=== PATIENT | female | born 1970 | race Caucasian/White ===

== ENCOUNTER 2019-09-20 18:53 | Inpatient (IN) ==
--- OUTSIDE RECORDS SUMMARY | 2019-09-20 18:56 | External Medical Summary | Continuity of Care Document ---
:1970 Author Name Xena Boyer Address Unavailable Unavailable , Care Team Providers Name Role Phone NonMNPG M.D. Unavailable [email or web address] ERIC Boyer, T Unavailable Unavailable Unavailable Unavailable Unavailable Problems Hirsutism (704.1) (L68.0) Encounter for gynecological examination with abnormal finding (V72.31) (Z01.411) Dysfunctional uterine bleeding (626.8) (N93.8) Hyperlipidemia (272.4) (E78.5) Xerosis cutis (706.8) (L85.3) Vitamin D deficiency (268.9) (E55.9) Fatigue (780.79) (R53.83) Obesity (278.00) (E66.9) Type 2 diabetes mellitus (250.00) (E11.9) Varicose veins (454.9) (I83.90) Anxiety (300.00) (F41.9) Insomnia (780.52) (G47.00) Allergies and Adverse Reactions No Known Drug Allergies (Allergy) Medications Tylenol CAPS Refills: 0 Procedures History of Oral Surgery Tooth Extraction Status: Completed History of Cholecystectomy Laparoscopic Status: Completed History of Supracerv Hysterect Laparosc Uterus 250g/Less Rem ov Status: Completed Tube/Ov Immunizations Pneumococcal polysaccharide vaccine, 23 valent On: 05-Oct-19 14 16:08 Lot #: [id number], [employer] Family History Father Family history of Hyperlipidemia Status: Active Family history of Type 2 Diabetes Mellitus Status: Active Family history of Prostate Cancer (V16.42) Status: Active Family history of Lung Cancer (V16.1) Status: Active Grandmother Family history of Type 2 Diabetes Mellitus Status: Active Family history of Breast Cancer (V16.3) Status: Active Mother Family history of Hypothyroidism Status: Active Family history of Lung Cancer (V16.1) Status: Active Grandfather Family history of Acute Myocardial Infarction (V17.3) Status : Active Grandmother Family history of Acute Myocardial Infarction (V17.3) Status : Active Brother Family history of Coronary Artery Disease (V17.49) Status: A ctive Family history of Asthma (V17.5) Status: Active Plan of Treatment Planned Observations Planned Goals not documented Results No Known Results Results not documented
[2019-09-20 20:03] LABS: Appearance Urine Cloudy (Clear); Bilirubin Urine Negative (Negative); Blood Urine Negative (Negative); Color Urine Yellow; Glucose Urine UA 3+ (Negative); Ketones Urine 1+ (Negative); Leukocyte Esterase Urine Negative (Negative); Nitrite Urine Positive (Negative); Protein Urine Negative (Negative); Specific Gravity Urine 1.044 (1.000-1.030); Urobilinogen Urine Negative (Negative); pH Urine 5.5 (4.5-7.5)
[2019-09-20 20:04] LABS: Basophils # (auto) 0.02 K/uL (0-0.2); Basophils % (auto) 0.1 %; Eosinophils # (auto) 0.03 K/uL (0-0.5); Eosinophils % (auto) 0.2 %; Hematocrit (blood only) 39.8 % (37-47); Hemoglobin 13.3 g/dL (12.0-16.0); Immature Granulocytes # (auto) 0.05 K/uL (0.00-0.02); Immature Granulocytes % (auto) 0.3 %; Lymphocytes # (auto) 1.31 K/uL (1.2-3.4); Lymphocytes % (auto) 7.1 %; Mean Corpuscular Hemoglobin 29.8 pg (25-34); Mean Corpuscular Hgb Conc 33.4 g/dL (32-36); Mean Platelet Volume 11.9 fL (7.4-10.4); Monocytes # (auto) 1.22 K/uL (0.11-0.59); Monocytes % (auto) 6.6 %; Neutrophils # (auto) 15.91 K/uL (1.4-6.5); Neutrophils % (auto) 85.7 %; Platelet Count 177 K/uL (130-400); RDW Coefficient of Variation 12.8 % (11.5-14.5); RDW Standard Deviation 41.2 fL (36.4-46.3); Red Blood Count 4.47 M/uL (4.2-5.4); White Blood Count 18.54 K/uL (4.8-10.8)
--- NOTE | 2019-09-20 20:11 | XRay Report ---
XR foot LT min 3V routine HISTORY: 49 years-old Female wound between 2nd 3rd digit plantar area ro osteo chronic wound of the left foot COMPARISON: None available TECHNIQUE: 3 views of the left foot FINDINGS: Demineralized appearance the bones. Mild osteoarthritis of the interphalangeal joints. No acute fract ure, dislocation or osseous erosions. Mild soft tissue swelling of the forefoot. Marginal spurring of the calcaneus. Soft tissue ulceration of the plantar forefoot. IMPRESSION: 1. Soft tissue swelling of the forefoot with plantar ulceration. 2. No acute fracture, dislocation or osseous erosion identified. ACT 112: Negative or not required by law. The above report was generated using voice recognition software. It may contain grammatical, syntax o r spelling errors. Electronically signed by: Ellis Duran M.D. 09/20/2019 8:10 PM
[2019-09-20 20:14] LABS: Bacteria Urine Automated 4+ (Negative); Epithelial Cell Urine Auto >30 /lpf (0-5); RBC Urine Automated 0-4 /hpf (0-4)
[2019-09-20] MEDS ORDERED: cefTRIAXone SODIUM 1,000 MG/50 ML BAG IV STA (20:35)
[2019-09-20] MEDS ORDERED: VANCOMYCIN CONSULT ACTIVE PRN (20:35)
[2019-09-20] MEDS ORDERED: VANCOMYCIN HCL 2,750 MG in SODIUM CHLORIDE 0.9% 500 ML IV ONE (20:35)
[2019-09-20] MEDS ORDERED: MoRPHine SULFATE 4 MG/ML 1 ML CARP\\VIAL IV STA (20:38)
[2019-09-20 20:48] LABS: BUN Creatinine Ratio 9.6 (10-20); Calcium 9.3 mg/dl (8.5-10.1); Creatinine Clr Calc Pharmacy 104.2 ml/min; Est GFR (African American) 96.7; Est GFR (Non-African American) 83.4; Potassium 3.9 mmol/L (3.5-5.1)
[2019-09-20] MEDS ORDERED: CEFEPIME 2,000 MG/20 ML VIAL IV STA (20:48)
[2019-09-20] MEDS ORDERED: SODIUM CHLORIDE 0.9% 1000ML 1,000 ML IV ONE (21:02)
[2019-09-20 21:06] LABS: Beta-Hydroxybutyrate 8.33 mg/dl (0.2-2.81)
[2019-09-20] MEDS ORDERED: INSULIN GLARGINE SOLOSTAR 100 UNITS/ML 3 ML PEN SC STA (21:28)
[2019-09-20] MEDS ORDERED: INSULIN HUMAN REGULAR PER UNIT 10 UNITS in SYRINGE 9.9 ML IV STA (21:34)
--- NOTE | 2019-09-20 21:55 | XRay Report ---
XR chest 1V portable HISTORY: sepsis COMPARISON: Chest 11/05/2007. FINDINGS: The lungs are clear. Cardiac silhouette is normal in size. No pleural effusions. No pneumot horax. IMPRESSION: No acute process. ACT 112: Negative or not required by law. Electronically signed by: Tee Huerta M.D. 09/20/2019 9:53 PM
[2019-09-20 21:59] LABS: Albumin Level 3.2 gm/dl (3.4-5.0); Bilirubin Direct 0.2 mg/dl (0-0.2); Bilirubin,Total 0.7 mg/dl (0.2-1); Magnesium 1.7 mg/dl (1.8-2.4); Total Protein 7.9 gm/dl (6.4-8.2)
--- NOTE | 2019-09-20 23:17 | Emergency Department Note ---
Entered by Sammi Cade acting as a scribe for Alexis Seaman History of Present Illness General Chief complaint: Infection, Wound Stated complaint: DIABETIC - INFECTION LT FOOT Time Seen by Provider: 09/20/19 19:28 Source: patient Mode of arrival: ambulatory Limitations: no limitations History of Present Illness Onset (ago): day(s) 3 Location: foot (left foot) Radiation: non-radiation Pain Consistency: + constant Maximum Pain Intensity: 9 Current Pain Intensity: 9 Relieved By: + other (Epsom salt soaks) Exacerbated By: + none Associated symptoms: + fever/chills (+chills, -fever) and + other (-abdominal pain); no cough (or cold symptoms) Treatments prior to arrival: other (Epsom salt soaks) The patient is a 49 year old female who presents to the ED with complaints of a possible wound infection. She is diabetic and states she thinks an existing diabetic wound on her left foot is infected. She rates her pain as a 9/10 in severity. Epsom salt soaks have provided minimal relief. She admits to chills but denies any fevers. She denies any recent cough or cold symptoms or abdominal pain. Home Medications Home Medications Medication Instructions Recorded Confirmed Type acetaminophen [Tylenol Extra 1,000 mg PO Q6H PRN 09/20/19 09/20/19 History Strength] ibuprofen [Advil] 400 mg PO Q6 PRN 09/20/19 09/20/19 History Allergies Allergy/AdvReac Type Severity Reaction Status Date / Time No Known Allergies Allergy Unknown Verified 09/20/19 22:20 Past Med/Surg History Medical History Diabetes mellitus Social History Preferred Language: Beninese Feels Safe at Home: Yes Smoking Status: Current every day smoker Review of Systems See HPI for pertinent positives & negatives. and A total of 10 systems reviewed and were otherwise negative Physical Exam Vital Signs Vital Signs - 24 hr 09/20/19 19:01 09/20/19 20:53 09/20/19 22:08 Temperature 37.2 C Temperature Source Oral Pulse Rate 93 H Pulse Rate [Right] 87 83 Pulse Rhythm [Right] Regular Regular Pulse Strength [Right] Normal Normal Respiratory Rate 18 18 18 Respiratory Effort / Characteristics Non-Labored Spontaneous Non-Labored Spontaneous Respiratory Depth Normal Normal Normal Respiratory Pattern Regular Regular Blood Pressure 156/89 H Blood Pressure [Right Arm] 149/89 H 132/73 Blood Pressure Mean 111 Blood Pressure Mean [Right Arm] 109 92 Blood Pressure Position [Right Arm] Lying Lying Pulse Oximetry 98 96 96 Oxygen Delivery Method Room Air Room Air Room Air Sepsis Recent Fever Within 48 Hours No Sepsis New/Unexplained Change in Mental Status No Sepsis Action Taken by Nursing No Action Required GENERAL: She is oriented to person, place, and time. She appears well-developed and well-nourished. She does not appear distressed. HENT: Exam performed. Head: Normocephalic and atraumatic. Right Ear: External ear normal. No mastoid tenderness. Left Ear: External ear normal. No mastoid tenderness. Mouth/Throat: The oropharynx is clear and moist. No trismus in the jaw. No dental abscesses or uvula swelling. No oropharyngeal exudate or tonsillar abscesses. EYES: Conjunctivae and EOM are normal. Pupils are equal, round, and reactive to light. Right eye exhibits no discharge. Left eye exhibits no discharge. No scleral icterus. NECK: Normal range of motion. Neck supple. No JVD present. No spinous process tenderness present. No carotid bruit present. No rigidity. No tracheal deviation and normal range of motion present. No Brudzinski's sign and no Kernig's sign noted. CV: Normal rate, regular rhythm, normal heart sounds and intact distal pulses. There is no peripheral edema. Palpable radial pulses bue. PULM/CHEST: Effort normal and breath sounds normal. No respiratory distress. No stridor. She has no wheezes. She has no rales. Chest Wall: She exhibits no tenderness. ABD: The abdomen is soft. Bowel sounds are normal. She has no distension. No mass is present. There is no tenderness. There is no rebound, no guarding, no Goodrich's sign and no tenderness at McBurney's point. Rovsig negative MUSC/SKEL: Normal range of motion. There is no peripheral edema, tenderness or deformity. Palpable DP and PT pulses bilaterally. LYMPH: No cervical adenopathy. NEURO: She is alert and oriented to person, place, and time. She has normal strength. No cranial nerve deficit or sensory deficit. Coordination and gait normal. GCS eye subscore is 4. GCS verbal subscore is 5. GCS motor subscore is 6. cerbellar tests wnl. SKIN: Skin is warm and dry. She is not diaphoretic. Wound on the plantar aspect of the left foot, between and the 2nd and 3rd digit, with surrounding erythema, extends over the dorsal aspect, warm to touch, no discharge or bleeding. PSYCH: She has a normal mood and affect. Her behavior is normal. Judgment and thought content normal. Course Course 1928: The patient was evaluated in room C7 and a complete history and physical were performed. 2024: Vital signs stable. Labs show leukocytosis of 18.5. Glucose of 516, lactate of 2.6. No anion gap elevation. Urinalysis shows possible infection. Patient will be treated with IV antibiotics for diabetic foot ulcer and UTI. I let the patient know I recommend she stay in the hospital for further evaluation and management and she is agreeable with the plan. I discussed the patients case with Dr. Meléndez, [facility] Hospitalist. The patient will be further evaluated. Administered Medications Vancomycin HCl 2,750 mg/ (Sodium Chloride) 555 mls @ 200 mls/hr IV NOW ONE Stop: 09/20/19 23:21 Last Admin: 09/20/19 21:03 Dose: 200 mls/hr Documented by: [id number] Discontinued Medications Ceftriaxone Sodium (Rocephin) 1,000 mg in 50 mls @ 100 mls/hr IV NOW STA Stop: 09/20/19 21:04 Last Admin: 09/20/19 20:51 Dose: Not Given Documented by: [id number] Cefepime HCl (Maxipime) 2,000 mg in 20 mls @ 5 mls/min IV NOW STA Stop: 09/20/19 20:51 Last Admin: 09/20/19 21:04 Dose: 5 mls/min Documented by: [id number] Sodium Chloride (Nss 1000ml) 1,000 mls @ 999 mls/hr IV .Q1H1M ONE Stop: 09/20/19 22:02 Last Infusion: 09/20/19 22:29 Dose: 0 mls/hr Documented by: [id number] Admin: 09/20/19 21:30 Dose: 999 mls/hr Documented by: [id number] Insulin Human Regular 10 units (/ Syringe) 10 mls @ 0 mls/hr IV NOW STA Stop: 09/20/19 21:35 Last Admin: 09/20/19 22:06 Dose: 9.9 mls/hr Documented by: [id number] Cosigned by: [id number] Insulin Glargine (Lantus Solostar Pen) 40 units SC NOW STA Stop: 09/20/19 21:29 Last Admin: 09/20/19 22:31 Dose: 40 units Documented by: [id number] Cosigned by: [id number] Morphine Sulfate (Morphine Sulfate) 4 mg IV NOW STA Stop: 09/20/19 20:39 Last Admin: 09/20/19 21:03 Dose: 4 mg Documented by: [id number] Medical Decision Making Medical Records Attestation: I reviewed the patient's medical records. Home Medications Current Medication List: was personally reviewed by me Laboratory Data Attestation: I reviewed the patient's lab results. Result diagrams: 09/20/19 19:53 09/20/19 19:53 Lab Results 09/20/19 09/20/19 09/20/19 Range/Units 19:40 19:53 19:53 WBC 18.54 H (4.8-10.8) K/uL RBC 4.47 (4.2-5.4) M/uL Hgb 13.3 (12.0-16.0) g/dL Hct 39.8 (37-47) % MCV 89.0 (80-100) fL MCH 29.8 (25-34) pg MCHC 33.4 (32-36) g/dL RDW Std Deviation 41.2 (36.4-46.3) fL RDW Coeff of Mya 12.8 (11.5-14.5) % Plt Count 177 (130-400) K/uL MPV 11.9 H (7.4-10.4) fL Immature Gran % (Auto) 0.3 % Neut % (Auto) 85.7 % Lymph % (Auto) 7.1 % [place] % (Auto) 6.6 % Eos % (Auto) 0.2 % Baso % (Auto) 0.1 % Immature Gran # (Auto) 0.05 H (0.00-0.02) K/uL Neut # (Auto) 15.91 H (1.4-6.5) K/uL Lymph # (Auto) 1.31 (1.2-3.4) K/uL [place] # (Auto) 1.22 H (0.11-0.59) K/uL Eos # (Auto) 0.03 (0-0.5) K/uL Baso # (Auto) 0.02 (0-0.2) K/uL Sodium 130 L (136-145) mmol/L Potassium 3.9 (3.5-5.1) mmol/L Chloride 94 L (98-107) mmol/L Carbon Dioxide 27 (21-32) mmol/L Anion Gap 9.0 (3-11) BUN 8 (7-18) mg/dl Creatinine 0.82 (0.6-1.2) mg/dl Est Cr Clr Drug Dosing 104.2 ml/min Est GFR ( Amer) 96.7 Est GFR (Non-Af Amer) 83.4 BUN/Creatinine Ratio 9.6 L (10-20) Glucose 516 H* (70-99) mg/dl Lactate (0.4-2.0) mmol/L Calcium 9.3 (8.5-10.1) mg/dl Magnesium 1.7 L (1.8-2.4) mg/dl Total Bilirubin 0.7 (0.2-1) mg/dl Direct Bilirubin 0.2 (0-0.2) mg/dl AST 8 L (15-37) U/L ALT 20 (12-78) U/L Alkaline Phosphatase 89 (45-117) U/L Total Creatine Kinase 37 (26-192) U/L Total Protein 7.9 (6.4-8.2) gm/dl Albumin 3.2 L (3.4-5.0) gm/dl Beta-Hydroxybutyric Acd 8.33 H (0.2-2.81) mg/dl Urine Color Yellow Urine Appearance Cloudy A (Clear) Urine pH 5.5 (4.5-7.5) Ur Specific [place] 1.044 H (1.000-1.030) Urine Protein Negative (Negative) Urine Glucose (UA) 3+ H (Negative) Urine Ketones 1+ H (Negative) Urine Blood Negative (Negative) Urine Nitrite Positive A (Negative) Urine Bilirubin Negative (Negative) Urine Urobilinogen Negative (Negative) Ur Leukocyte Esterase Negative (Negative) Urine WBC (Auto) 5-10 H (0-5) /hpf Urine RBC (Auto) 0-4 (0-4) /hpf U Hyaline Cast (Auto) 1-5 (0-5) /lpf U Epithel Cells (Auto) >30 H (0-5) /lpf Urine Bacteria (Auto) 4+ H (Negative) 09/20/19 Range/Units 19:53 WBC (4.8-10.8) K/uL RBC (4.2-5.4) M/uL Hgb (12.0-16.0) g/dL Hct (37-47) % MCV (80-100) fL MCH (25-34) pg MCHC (32-36) g/dL RDW Std Deviation (36.4-46.3) fL RDW Coeff of Mya (11.5-14.5) % Plt Count (130-400) K/uL MPV (7.4-10.4) fL Immature Gran % (Auto) % Neut % (Auto) % Lymph % (Auto) % [place] % (Auto) % Eos % (Auto) % Baso % (Auto) % Immature Gran # (Auto) (0.00-0.02) K/uL Neut # (Auto) (1.4-6.5) K/uL Lymph # (Auto) (1.2-3.4) K/uL [place] # (Auto) (0.11-0.59) K/uL Eos # (Auto) (0-0.5) K/uL Baso # (Auto) (0-0.2) K/uL Sodium (136-145) mmol/L Potassium (3.5-5.1) mmol/L Chloride (98-107) mmol/L Carbon Dioxide (21-32) mmol/L Anion Gap (3-11) BUN (7-18) mg/dl Creatinine (0.6-1.2) mg/dl Est Cr Clr Drug Dosing ml/min Est GFR ( Amer) Est GFR (Non-Af Amer) BUN/Creatinine Ratio (10-20) Glucose (70-99) mg/dl Lactate 2.6 H* (0.4-2.0) mmol/L Calcium (8.5-10.1) mg/dl Magnesium (1.8-2.4) mg/dl Total Bilirubin (0.2-1) mg/dl Direct Bilirubin (0-0.2) mg/dl AST (15-37) U/L ALT (12-78) U/L Alkaline Phosphatase (45-117) U/L Total Creatine Kinase (26-192) U/L Total Protein (6.4-8.2) gm/dl Albumin (3.4-5.0) gm/dl Beta-Hydroxybutyric Acd (0.2-2.81) mg/dl Urine Color Urine Appearance (Clear) Urine pH (4.5-7.5) Ur Specific [place] (1.000-1.030) Urine Protein (Negative) Urine Glucose (UA) (Negative) Urine Ketones (Negative) Urine Blood (Negative) Urine Nitrite (Negative) Urine Bilirubin (Negative) Urine Urobilinogen (Negative) Ur Leukocyte Esterase (Negative) Urine WBC (Auto) (0-5) /hpf Urine RBC (Auto) (0-4) /hpf U Hyaline Cast (Auto) (0-5) /lpf U Epithel Cells (Auto) (0-5) /lpf Urine Bacteria (Auto) (Negative) Imaging Data Radiologist's Impression: Radiology results as stated below per my review and the radiologist's interpretation: XR foot LT min 3V routine HISTORY: 49 years-old Female wound between 2nd 3rd digit plantar area ro osteo chronic wound of the left foot COMPARISON: None available TECHNIQUE: 3 views of the left foot FINDINGS: Demineralized appearance the bones. Mild osteoarthritis of the interphalangeal joints. No acute fracture, dislocation or osseous erosions. Mild soft tissue swelling of the forefoot. Marginal spurring of the calcaneus. Soft tissue ulceration of the plantar forefoot. IMPRESSION: 1. Soft tissue swelling of the forefoot with plantar ulceration. 2. No acute fracture, dislocation or osseous erosion identified. ACT 112: Negative or not required by law. The above report was generated using voice recognition software. It may contain grammatical, syntax or spelling errors. Electronically signed by: Ellis Duran M.D. 09/20/2019 8:10 PM Blood Pressure Blood Pressure Findings: Elevated blood pressure Blood Pressure Disposition: further management by hospitalist ALEXANDRA Narrative Vital signs stable. Labs show leukocytosis of 18.5. Glucose of 516, lactate of 2.6. No anion gap elevation. Urinalysis shows possible infection. Patient will be treated with IV antibiotics for diabetic foot ulcer and UTI. I let the patient know I recommend she stay in the hospital for further evaluation and management and she is agreeable with the plan. I discussed the patients case with Dr. Meléndez, [facility] Hospitalist. The patient will be further evaluated. Impression & Plan Cellulitis, Diabetic foot ulcer Discharge Plan Visit Data Chief Complaint: Infection, Wound Stated Complaint: DIABETIC - INFECTION LT FOOT ED Provider: Alexis Seaman Discharge Problem: Cellulitis, Diabetic foot ulcer Patient Disposition: Being Evaluated by Hospitalist Forms Stand Alone Forms: [facility] Prescriptions Prescriptions: No Action acetaminophen [Tylenol Extra Strength] 500 mg Tablet 1,000 mg PO Q6H PRN (Reason: Pain) RF: 0 ibuprofen [Advil] 100 mg Tablet,Chewable 400 mg PO Q6 PRN (Reason: Pain) RF: 0 Referrals Referrals: Mayra Holley DO [Primary Care Provider] - The scribe's documentation has been prepared under my direction and personally reviewed by me in its entirety. I confirm that the note above accurately reflects all work, treatment, procedures, and medical decision making performed by me.
--- NOTE | 2019-09-20 23:18 | History & Physical Report ---
Date of Service September 20, 2019 Assessment & Plan (1) Severe sepsis: SIRS plus lactic acidosis Secondary to diabetic foot infection Rule out osteomyelitis hypertension, slightly elevated secondary discomfort DM 2 on oral medications suboptimal control as of recent outpatient hemoglobin A1c of 11.6, March 2019 past history of DVT as per records ongoing tobacco abuse hx medication noncompliance as per records Lack of health insurance Medical telemetry Cultures, Daptomycin, Cefepime MRI left foot rule out osteomyelitis Further management pending work-up results Offload left foot IVF, follow lactic acid Resume prior home lisinopril Rx if BP still uncontrolled Basal insulin, ISS BG goal [id number], carb count coverage, update hemoglobin A1c May benefit from pharmacy glycemic control consultation. Diabetic education. Social service RE assistance with procurement of medications on discharge given lack of health insurance Nicotine patch PRN DVT prophylaxis per Lovenox subcu Full code History of Present Illness Primary Care Provider: None History obtained from patient and records. Medical history significant for hypertension, hyperlipidemia, DM 2 on oral medications, history of DVT status post Coumadin, ongoing tobacco abuse, medication noncompliance as per records. Remote confinement October, for LLE DVT. Patient has had callus on her left foot bottom for a few months now. Four days ago she noted purulent drainage from open wound on callus. Subsequent left foot swelling. Increase painful left foot swelling the last few days along with chills. No response to foot soaks. No chest pain, no S OB. Blood sugars higher than usual 300s at home. At the ER, patient received vancomycin for diabetic foot infection. Medical History as above Surgical History : section, BTL, partial hysterectomy, endometrial ablation, nasal polypectomy, facial laceration repair, Family History : Diabetes, breast cancer, hypertension Personal/Social history : One 4 pack daily, no EtOH intake, currently unemployed, prior work as a [employer] Allergies Allergy/AdvReac Type Severity Reaction Status Date / Time No Known Allergies Allergy Unknown Verified 09/20/19 22:20 Home Medications Home Medications Medication Instructions Recorded Confirmed Type acetaminophen [Tylenol Extra 1,000 mg PO Q6H PRN 09/20/19 09/20/19 History Strength] ibuprofen [Advil] 400 mg PO Q6 PRN 09/20/19 09/20/19 History Past Med/Surg History Medical History Diabetes mellitus Social History Preferred Language: Hebrew Beliefs That Will Affect Care: None Current Living Situation: Alone Current Living Situation Comment: home Feels Safe at Home: Yes Smoking Status: Current every day smoker Tobacco Type: cigarettes ; Hx Alcohol Use: No Hx Substance Use: No Review of Systems Review of Systems: As per HPI, all 10 systems reviewed, all other ROS negative Physical Exam Physical Exam: GENERAL: Comfortable, pleasant, obese, no respiratory distress SKIN: Normal color, warm HEENT: Bespectacled, pink palpebral conjunctivae, no ptosis, dry buccal mucosa NECK : Supple, short neck, no tenderness CHEST : CTA, no tenderness HEART : RRR, no obvious murmurs ABDOMEN: Some distention, nontender EXTREMITIES : Ulcerated wound on the plantar aspect of left forefoot with scant yellow drainage, minimal LLE swelling, no LE tenderness NEUROLOGIC : Coherent, no facial asymmetry, no other gross focality Results & Data Vital Signs (Past 12 Hours) Vital Signs Temp Pulse Pulse Resp BP BP Pulse Ox 09/20/19 22:08 83 18 132/73 96 09/20/19 20:53 87 18 149/89 H 96 09/20/19 19:01 37.2 C 93 H 18 156/89 H 98 Laboratory Results Laboratory Results WBC 18.54 K/uL (4.8-10.8) H 09/20/19 19:53 RBC 4.47 M/uL (4.2-5.4) 09/20/19 19:53 Hgb 13.3 g/dL (12.0-16.0) 09/20/19 19:53 Hct 39.8 % (37-47) 09/20/19 19:53 MCV 89.0 fL (80-100) 09/20/19 19:53 MCH 29.8 pg (25-34) 09/20/19 19:53 MCHC 33.4 g/dL (32-36) 09/20/19 19:53 RDW Std Deviation 41.2 fL (36.4-46.3) 09/20/19 19:53 RDW Coeff of Mya 12.8 % (11.5-14.5) 09/20/19 19:53 Plt Count 177 K/uL (130-400) 09/20/19 19:53 MPV 11.9 fL (7.4-10.4) H 09/20/19 19:53 Immature Gran % (Auto) 0.3 % 09/20/19 19:53 Neut % (Auto) 85.7 % 09/20/19 19:53 Lymph % (Auto) 7.1 % 09/20/19 19:53 [place] % (Auto) 6.6 % 09/20/19 19:53 Eos % (Auto) 0.2 % 09/20/19 19:53 Baso % (Auto) 0.1 % 09/20/19 19:53 Immature Gran # (Auto) 0.05 K/uL (0.00-0.02) H 09/20/19 19:53 Neut # (Auto) 15.91 K/uL (1.4-6.5) H 09/20/19 19:53 Lymph # (Auto) 1.31 K/uL (1.2-3.4) 09/20/19 19:53 [place] # (Auto) 1.22 K/uL (0.11-0.59) H 09/20/19 19:53 Eos # (Auto) 0.03 K/uL (0-0.5) 09/20/19 19:53 Baso # (Auto) 0.02 K/uL (0-0.2) 09/20/19 19:53 Sodium 130 mmol/L (136-145) L 09/20/19 19:53 Potassium 3.9 mmol/L (3.5-5.1) 09/20/19 19:53 Chloride 94 mmol/L (98-107) L 09/20/19 19:53 Carbon Dioxide 27 mmol/L (21-32) 09/20/19 19:53 Anion Gap 9.0 (3-11) 09/20/19 19:53 BUN 8 mg/dl (7-18) 09/20/19 19:53 Creatinine 0.82 mg/dl (0.6-1.2) 09/20/19 19:53 Est Cr Clr Drug Dosing 104.2 ml/min 09/20/19 19:53 Est GFR ( Amer) 96.7 09/20/19 19:53 Est GFR (Non-Af Amer) 83.4 09/20/19 19:53 BUN/Creatinine Ratio 9.6 (10-20) L 09/20/19 19:53 Glucose 516 mg/dl (70-99) H* 09/20/19 19:53 POC Glucose 325 mg/dl (70-99) H* 09/20/19 23:11 Lactate 2.6 mmol/L (0.4-2.0) H* 09/20/19 19:53 Calcium 9.3 mg/dl (8.5-10.1) 09/20/19 19:53 Magnesium 1.7 mg/dl (1.8-2.4) L 09/20/19 19:53 Total Bilirubin 0.7 mg/dl (0.2-1) 09/20/19 19:53 Direct Bilirubin 0.2 mg/dl (0-0.2) 09/20/19 19:53 AST 8 U/L (15-37) L 09/20/19 19:53 ALT 20 U/L (12-78) 09/20/19 19:53 Alkaline Phosphatase 89 U/L (45-117) 09/20/19 19:53 Total Creatine Kinase 37 U/L (26-192) 09/20/19 19:53 Total Protein 7.9 gm/dl (6.4-8.2) 09/20/19 19:53 Albumin 3.2 gm/dl (3.4-5.0) L 09/20/19 19:53 Beta-Hydroxybutyric Acd 8.33 mg/dl (0.2-2.81) H 09/20/19 19:53 Urine Color Yellow 09/20/19 19:40 Urine Appearance Cloudy (Clear) A 09/20/19 19:40 Urine pH 5.5 (4.5-7.5) 09/20/19 19:40 Ur Specific [place] 1.044 (1.000-1.030) H 09/20/19 19:40 Urine Protein Negative (Negative) 09/20/19 19:40 Urine Glucose (UA) 3+ (Negative) H 09/20/19 19:40 Urine Ketones 1+ (Negative) H 09/20/19 19:40 Urine Blood Negative (Negative) 09/20/19 19:40 Urine Nitrite Positive (Negative) A 09/20/19 19:40 Urine Bilirubin Negative (Negative) 09/20/19 19:40 Urine Urobilinogen Negative (Negative) 09/20/19 19:40 Ur Leukocyte Esterase Negative (Negative) 09/20/19 19:40 Urine WBC (Auto) 5-10 /hpf (0-5) H 09/20/19 19:40 Urine RBC (Auto) 0-4 /hpf (0-4) 09/20/19 19:40 U Hyaline Cast (Auto) 1-5 /lpf (0-5) 09/20/19 19:40 U Epithel Cells (Auto) >30 /lpf (0-5) H 09/20/19 19:40 Urine Bacteria (Auto) 4+ (Negative) H 09/20/19 19:40 Diagnostic Findings Left foot x-ray: 1. Soft tissue swelling of the forefoot with plantar ulceration. 2. No acute fracture, dislocation or osseous erosion identified. Chest x-ray: No acute process
[2019-09-20] MEDS ORDERED: LACTATED RINGER'S 1,000 ML IV SCH (23:30)
[2019-09-21] MEDS ORDERED: GLUCOSE 40% GEL 15 GM TUBE PO PRN (00:36)
[2019-09-21] MEDS ORDERED: DEXTROSE 50% 50 ML SYRINGE IV PRN (00:36)
[2019-09-21] MEDS ORDERED: CARBOHYDRATES FOR HYPOGLYCEMIA PO PRN (00:36)
[2019-09-21] MEDS ORDERED: PROMETHAZINE HCL 12.5 MG in SODIUM CHLORIDE 0.9% 50 ML IV PRN (00:36)
[2019-09-21] MEDS ORDERED: GLUCAGON FOR INJ 1 MG VIAL SQ PRN (00:36)
[2019-09-21] MEDS ORDERED: GLUCOSE 10 TABS/TUBE PO PRN (00:36)
[2019-09-21] MEDS ORDERED: ACETAMINOPHEN 325 MG TAB PO PRN (00:36)
[2019-09-21] MEDS ORDERED: CEFEPIME CONSULT ACTIVE PRN (00:47)
[2019-09-21] MEDS ORDERED: DAPTOMYCIN CONSULT ACTIVE PRN (00:54)
[2019-09-21] MEDS: INSULIN ASPART 100 UNITS/ML 3 ML PEN SC SCH ×6 (01:10→20:25)
[2019-09-21] MEDS: TRAMADOL HCL 50 MG TABLET PO PRN ×2 (01:48→08:02)
[2019-09-21] MEDS ORDERED: LACTATED RINGER'S 1,000 ML IV ONE (02:25)
[2019-09-21] MEDS ORDERED: GADOBUTROL 65ML VIAL IV PRN (04:14)
[2019-09-21] MEDS: DAPTOmycin 500 MG in SYRINGE 0 ML IV SCH (04:29)
[2019-09-21] MEDS ORDERED: CEFEPIME 2,000 MG in SYRINGE 7.5 ML IV SCH (06:00)
[2019-09-21 07:08] LABS: Basophils # (auto) 0.02 K/uL (0-0.2); Basophils % (auto) 0.2 %; Eosinophils # (auto) 0.08 K/uL (0-0.5); Eosinophils % (auto) 0.6 %; Hematocrit (blood only) 35.1 % (37-47); Hemoglobin 11.7 g/dL (12.0-16.0); Immature Granulocytes # (auto) 0.04 K/uL (0.00-0.02); Immature Granulocytes % (auto) 0.3 %; Lymphocytes # (auto) 2.69 K/uL (1.2-3.4); Lymphocytes % (auto) 20.2 %; Mean Corpuscular Hemoglobin 29.1 pg (25-34); Mean Corpuscular Hgb Conc 33.3 g/dL (32-36); Mean Corpuscular Volume 87.3 fL (80-100); Mean Platelet Volume 10.9 fL (7.4-10.4); Monocytes # (auto) 0.55 K/uL (0.11-0.59); Monocytes % (auto) 4.1 %; Neutrophils # (auto) 9.94 K/uL (1.4-6.5); Neutrophils % (auto) 74.6 %; Platelet Count 175 K/uL (130-400); RDW Coefficient of Variation 12.7 % (11.5-14.5); Red Blood Count 4.02 M/uL (4.2-5.4); White Blood Count 13.32 K/uL (4.8-10.8)
[2019-09-21 07:36] LABS: Calcium 8.7 mg/dl (8.5-10.1); Creatinine Clr Calc Pharmacy 149.5 ml/min; Est GFR (African American) 125.3; Est GFR (Non-African American) 108.1; Potassium 3.6 mmol/L (3.5-5.1)
[2019-09-21] MEDS: ENOXAPARIN INJ 40 MG/0.4 ML SYR SQ SCH (07:57)
--- NOTE | 2019-09-21 08:28 | Magnetic Resonance Report ---
MR foot LT wo/w con HISTORY: 49 years-old Female R foot swelling ro osteomyelitis chronic right foot pain and swelling w ith possible osteomyelitis. History of diabetes COMPARISON: [Radiographs 09/20/2019 TECHNIQUE: Multiplanar multisequence MRI of the left foot was obtained both with and without the use of 10.7 mL Gadavist FINDINGS: A cutaneous marker is noted along the plantar aspect of the forefoot. A 10 mm cutaneous ulceration is noted deep to the skin marker. There is diffuse subcutaneous edema of the forefoot, extensive dorsal ly extending into the midfoot and ankle and moderate on the plantar margins. Diffuse intrinsic muscul ature atrophy with diffuse intramuscular edema. No drainable fluid collection. The imaged flexor and extensor tendons appear intact. Lisfranc ligament is identified and appears intact. Mild osteoarthrit is of the midfoot and forefoot. No acute fracture, or dislocation identified. Mild to moderate bone m arrow edema involves the third proximal phalanx, notably within the proximal and mid shaft portions. T1 marrow signal is preserved. Minimal bone marrow edema involves the distal aspect of the first dist al phalanx. Mild dorsal periostitis of the second proximal phalanx, image 14 series 9. No osseous ero sions identified. No enhancing mass lesions. IMPRESSION: 1. Diffuse subcutaneous edema suggestive of cellulitis with small plantar ulceration noted near the b ase of the third digit. No drainable fluid collection to suggest abscess. 2. Mild to moderate bone marrow edema of the third proximal phalanx with mild bone marrow edema of th e first distal phalanx, likely reactive. No evidence of acute osteomyelitis noted within these distri butions. 3. Mild dorsal periostitis of the second proximal phalanx may reflect healing fracture or sequela of remote osteomyelitis. No definite evidence of acute osteomyelitis. 4. Diffuse muscular atrophy with intramuscular edema, likely related to chronic denervation changes r elated to the patient's diabetes. ACT 112: Negative or not required by law. The above report was generated using voice recognition software. It may contain grammatical, syntax o r spelling errors. Electronically signed by: Ellis Duran M.D. 09/21/2019 8:27 AM
[2019-09-21] MEDS ORDERED: INSULIN GLARGINE SOLOSTAR 100 UNITS/ML 3 ML PEN SQ SCH (09:00)
[2019-09-21 09:04] LABS: Estimated Average Glucose 321 mg/dl; Hemoglobin A1C 12.8 % (4.5-5.6)
[2019-09-21] MEDS: MoRPHine SULFATE 4 MG/ML 1 ML CARP\\VIAL IV PRN ×2 (11:34→19:38)
[2019-09-21] MEDS ORDERED: PHARMACY GLYCEMIC MGMT CONSULT PRN (11:42)
--- NOTE | 2019-09-21 14:03 | Pharmacy Report ---
Glycemic Control Consultation - Date of Service September 21, 2019 - Scope Scope: Glycemic Pharmacist consulted by Dr Liu on 09/21/2019 for glycemic control and to write orders per [facility] inpatient glycemic control protocol - Objective Weight: 108.1 kg Accuchecks BSG (last 24hrs): 09/20/19 09/20/19 09/20/19 19:53 22:04 23:11 Glucose 516 H* POC Glucose 389 H* 325 H* 09/21/19 09/21/19 09/21/19 00:34 00:41 04:35 Glucose POC Glucose 333 H* 323 H* 285 H 09/21/19 09/21/19 09/21/19 06:55 07:35 11:38 Glucose 280 H POC Glucose 237 H 267 H Laboratory Data (last 24hrs): 09/20/19 09/21/19 19:53 06:55 Potassium 3.9 3.6 Carbon Dioxide 27 28 Anion Gap 9.0 5.0 Creatinine 0.82 0.57 L Est Cr Clr Drug Dosing 104.2 149.5 Beta-Hydroxybutyric Acd 8.33 H HbA1c: Hemoglobin A1c 12.8 % (4.5-5.6) H 09/21/19 06:55 - Recent Pertinent Medications Outpatient Anti-diabetic Regimen: * Metformin/glipizide combo agent * A1c = 12.8 % 09/21/2019 - Assessment & Plan Assessment & Plan: ASSESSMENT: * Pt is a 49yo F type II diabetic. P/w diabetic foot infxn, being treated with dapto and cefepime. PMHx consistent with HTN, HLD, h/o DVT. Her outpt glycemic management is poor as evidenced by her A1C of 12.8% Hyperglycemia is likely due to endogenous insulin resistance. She is ordered a diet. * She will need to go home on insulin given her A1C >10%. Given her SES it will be prudent to d/c her home on [employer] ReliON 70/30 or NPH + Regular. PLAN FOR INPATIENT GLYCEMIC CONTROL: * Holding outpatient oral diabetes medications * Basal insulin - we will switch to NPH * NPH BIDM: 20 or 25u, see MAR for further details. * Bolus insulin - lower goal range and tighten CF/CR * NovoLog per scale ACHS or Q6hrs while NPO * Goal Range: Low 110 mg/dL - High 140 mg/dL * Correction Factor: 20 mg/dL/unit * Nutritional / Prandial insulin per carb ratio of 1 unit per 7 grams CHO consumed * Please note that the plan above was derived based on current level of insulin resistance and hospital stress. These recommendations are appropriate for inpatient admission only. Plan of care upon discharge will need to be reassessed to avoid potential outpatient hypo/hyperglycemia. Thank you.
[2019-09-21] MEDS: CEFEPIME 2,000 MG in SYRINGE 7.5 ML IV SCH (17:45)
[2019-09-21] MEDS: INSULIN HUMAN NPH SC SCH (17:48)
[2019-09-22] MEDS: TRAMADOL HCL 50 MG TABLET PO PRN ×4 (03:48→17:55)
[2019-09-22] MEDS: DAPTOmycin 500 MG in SYRINGE 0 ML IV SCH (04:04)
[2019-09-22] MEDS: CEFEPIME 2,000 MG in SYRINGE 7.5 ML IV SCH ×2 (06:08→18:23)
--- NOTE | 2019-09-22 07:15 | Podiatry Consultation ---
Date of Consultation September 22, 2019 Assessment & Plan (1) Diabetic foot ulcer: 49-year-old female with poorly controlled diabetes mellitus and intact vascular status the bilateral lower extremity presenting with left lower extremity cellulitis and superficial abscess. - She has a down trending white count which is it 13 today. She is on IV antibiotics currently. Current cultures have positive gram +ve cocci on preliminary read. She appears to medically stable with vital signs remaining stable and no subjective symptoms of systemic infection. -Sharp excisional debridement with irrigation was performed at the bedside today at the level of subcutaneous tissue using a #15 blade. Plantar callus revealed superficial abscess with margins as noted above approximately less than 10 cm of soft tissue were debrided today at the bedside. After debridement was performed the site was flushed with copious amounts of normal sterile saline. There is no probing deeply to the level of bone. Upon debridement erythema of the dorsal foot began resolving immediately. A Betadine wet-to-dry dressing was applied to the left lower extremity today. This can be changed daily. Patient may required assistance at home doing dressing changes which can be set up through home nursing. -MRI is concerning for possible osteomyelitis of the proximal second phalanx though no acute signs of osteomyelitis were present. Given these findings no surgical intervention is warranted at this time. This should be monitored closely given that her wound is in this area. Again, the wound is not deep to level of muscle or bone. This is a good clinical indicator that osteomyelitis is not present. -Cultures were obtained from the left foot deep wound for antibiotic guidance. I would continue current regimen of IV antibiotics while in-house. She can be discharged home on broad-spectrum antibiotics consisting of doxycycline 100 mg twice daily and ciprofloxacin 500 mg twice daily for 10 days. Antibiotics can be tapered once final culture results are obtained. -I discussed with the patient the need for regular foot exams being diabetic and poorly controlled as well as appropriate shoe gear and the need for periodic debridement of her calluses by professional rather than being done at home. -I would not be able to round on the patient tomorrow as I will be out of town. I do recommend that she follows up with either myself or the wound care center early next week for reevaluation of the foot wound. At this time she does appear to be stable enough for discharge. Please feel free to contact me with any further questions regarding this patient's care. Thank you for the consultation Present on Admission?: Yes History of Present Illness Reason for Consultation: Left foot wound and cellulitis Requesting Physician: Medhat Attending Physician: Antonio Malloy DO History of Present Illness This is a 49-year-old female with poorly controlled diabetes mellitus, sugars running between 2 and 300 normal at home, presenting with left foot cellulitis. Patient states that she has had calluses on the bottom of her left foot with a painful for months. She normally trims them at home. She presented the emergency room with a worsening cellulitis and concern for infection. Has been doing Epsom salt soaks at home which provided no relief of pain or erythema. She is seen today resting at the bedside complains of no nausea vomiting fevers chills chest pain or shortness of breath. Pain the left lower extremity is well controlled at this time. States that she does have difficulty walking on it due to the pain. Allergies Allergy/AdvReac Type Severity Reaction Status Date / Time No Known Allergies Allergy Unknown Verified 09/20/19 22:20 Home Medications Home Medications Medication Instructions Recorded Confirmed Type acetaminophen [Tylenol Extra 1,000 mg PO Q6H PRN 09/20/19 09/20/19 History Strength] ibuprofen [Advil] 400 mg PO Q6 PRN 09/20/19 09/20/19 History Patient History Medical History Diabetes mellitus Social History Preferred Language: Lithuanian Communication Ability: Effective Beliefs That Will Affect Care: None marital status: Single Current Living Situation: Alone Current Living Situation Comment: home Feels Safe at Home: Yes Smoking Status: Current every day smoker Tobacco Type: cigarettes ; Hx Alcohol Use: No Hx Substance Use: No Review of Systems Review of Systems: All systems reviewed & are unremarkable except as noted in HPI & below Physical Exam Physical Exam: She is alert and oriented to person place and time she is in no acute distress her vital signs appear to be stable Neurovascular status to the bilateral lower extremity does appear to be intact. Sensation is intact light touch. Palpable pulses are noted bilaterally the dorsalis and posterior tibial arteries. Left foot demonstrates significant erythema and calor that is streaking proximally dorsally onto the foot approximately one half way up the foot. There does appear to be a superficial abscess extending from the plantar aspect of the second metatarsal head dorsally over the second metatarsal phalangeal joint and into the first interspace. There is significant hyperkeratotic tissue to the plantar aspect of the second metatarsal phalangeal joint. Upon debridement mainly serous green drainage is obtained. No purulence was noted. Erythema began to resolve with drainage of superficial abscess. No probing deeply to the level of bone was noted. Wound was approximately 5 cm in length with a maximal width of approximately 1 cm and a depth of approximately 0.4 cm. Spec: [id number] Collected: 09/21/19 Received: 09/21/[address]: Félix Meléndez MD Source: Foot,Left OV Order: Ordered: Surf Wnd Cul/Sm Procedure Result Verified Site Gram Stain Final 09/21/19 Gram Stain Result No WBCs Seen Rare Gram Positive Cocci Surface Wound Culture PENDING FINDINGS: A cutaneous marker is noted along the plantar aspect of the forefoot. A 10 mm cutaneous ulceration is noted deep to the skin marker. There is diffuse subcutaneous edema of the forefoot, extensive dorsally extending into the midfoot and ankle and moderate on the plantar margins. Diffuse intrinsic musculature atrophy with diffuse intramuscular edema. No drainable fluid collection. The imaged flexor and extensor tendons appear intact. Lisfranc ligament is identified and appears intact. Mild osteoarthritis of the midfoot and forefoot. No acute fracture, or dislocation identified. Mild to moderate bone marrow edema involves the third proximal phalanx, notably within the proximal and mid shaft portions. T1 marrow signal is preserved. Minimal bone marrow edema involves the distal aspect of the first distal phalanx. Mild dorsal periostitis of the second proximal phalanx, image 14 series 9. No osseous erosions identified. No enhancing mass lesions. IMPRESSION: 1. Diffuse subcutaneous edema suggestive of cellulitis with small plantar ulceration noted near the base of the third digit. No drainable fluid collection to suggest abscess. 2. Mild to moderate bone marrow edema of the third proximal phalanx with mild bone marrow edema of the first distal phalanx, likely reactive. No evidence of acute osteomyelitis noted within these distributions. 3. Mild dorsal periostitis of the second proximal phalanx may reflect healing fracture or sequela of remote osteomyelitis. No definite evidence of acute osteomyelitis. 4. Diffuse muscular atrophy with intramuscular edema, likely related to chronic denervation changes related to the patient's diabetes. Results & Data Vital Signs (Past 12 Hours) Vital Signs Temp Pulse Pulse Resp BP Pulse Ox 09/22/19 04:20 80 09/22/19 04:09 36.9 C 87 18 141/81 H 95 09/22/19 00:04 37.9 C H 80 20 124/76 97 09/21/19 19:28 37.3 C 84 18 140/82 93 Laboratory Results Laboratory Results WBC 18.54 K/uL (4.8-10.8) H 09/20/19 19:53 RBC 4.47 M/uL (4.2-5.4) 09/20/19 19:53 Hgb 13.3 g/dL (12.0-16.0) 09/20/19 19:53 Hct 39.8 % (37-47) 09/20/19 19:53 MCV 89.0 fL (80-100) 09/20/19 19:53 MCH 29.8 pg (25-34) 09/20/19 19:53 MCHC 33.4 g/dL (32-36) 09/20/19 19:53 RDW Std Deviation 41.2 fL (36.4-46.3) 09/20/19 19:53 RDW Coeff of Mya 12.8 % (11.5-14.5) 09/20/19 19:53 Plt Count 177 K/uL (130-400) 09/20/19 19:53 MPV 11.9 fL (7.4-10.4) H 09/20/19 19:53 Immature Gran % (Auto) 0.3 % 09/20/19 19:53 Neut % (Auto) 85.7 % 09/20/19 19:53 Lymph % (Auto) 7.1 % 09/20/19 19:53 [place] % (Auto) 6.6 % 09/20/19 19:53 Eos % (Auto) 0.2 % 09/20/19 19:53 Baso % (Auto) 0.1 % 09/20/19 19:53 Immature Gran # (Auto) 0.05 K/uL (0.00-0.02) H 09/20/19 19:53 Neut # (Auto) 15.91 K/uL (1.4-6.5) H 09/20/19 19:53 Lymph # (Auto) 1.31 K/uL (1.2-3.4) 09/20/19 19:53 [place] # (Auto) 1.22 K/uL (0.11-0.59) H 09/20/19 19:53 Eos # (Auto) 0.03 K/uL (0-0.5) 09/20/19 19:53 Baso # (Auto) 0.02 K/uL (0-0.2) 09/20/19 19:53 Sodium 130 mmol/L (136-145) L 09/20/19 19:53 Potassium 3.9 mmol/L (3.5-5.1) 09/20/19 19:53 Chloride 94 mmol/L (98-107) L 09/20/19 19:53 Carbon Dioxide 27 mmol/L (21-32) 09/20/19 19:53 Anion Gap 9.0 (3-11) 09/20/19 19:53 BUN 8 mg/dl (7-18) 09/20/19 19:53 Creatinine 0.82 mg/dl (0.6-1.2) 09/20/19 19:53 Est Cr Clr Drug Dosing 104.2 ml/min 09/20/19 19:53 Est GFR ( Amer) 96.7 09/20/19 19:53 Est GFR (Non-Af Amer) 83.4 09/20/19 19:53 BUN/Creatinine Ratio 9.6 (10-20) L 09/20/19 19:53 Glucose 516 mg/dl (70-99) H* 09/20/19 19:53 POC Glucose 325 mg/dl (70-99) H* 09/20/19 23:11 Lactate 2.6 mmol/L (0.4-2.0) H* 09/20/19 19:53 Calcium 9.3 mg/dl (8.5-10.1) 09/20/19 19:53 Magnesium 1.7 mg/dl (1.8-2.4) L 09/20/19 19:53 Total Bilirubin 0.7 mg/dl (0.2-1) 09/20/19 19:53 Direct Bilirubin 0.2 mg/dl (0-0.2) 09/20/19 19:53 AST 8 U/L (15-37) L 09/20/19 19:53 ALT 20 U/L (12-78) 09/20/19 19:53 Alkaline Phosphatase 89 U/L (45-117) 09/20/19 19:53 Total Creatine Kinase 37 U/L (26-192) 09/20/19 19:53 Total Protein 7.9 gm/dl (6.4-8.2) 09/20/19 19:53 Albumin 3.2 gm/dl (3.4-5.0) L 09/20/19 19:53 Beta-Hydroxybutyric Acd 8.33 mg/dl (0.2-2.81) H 09/20/19 19:53 Urine Color Yellow 09/20/19 19:40 Urine Appearance Cloudy (Clear) A 09/20/19 19:40 Urine pH 5.5 (4.5-7.5) 09/20/19 19:40 Ur Specific [place] 1.044 (1.000-1.030) H 09/20/19 19:40 Urine Protein Negative (Negative) 09/20/19 19:40 Urine Glucose (UA) 3+ (Negative) H 09/20/19 19:40 Urine Ketones 1+ (Negative) H 09/20/19 19:40 Urine Blood Negative (Negative) 09/20/19 19:40 Urine Nitrite Positive (Negative) A 09/20/19 19:40 Urine Bilirubin Negative (Negative) 09/20/19 19:40 Urine Urobilinogen Negative (Negative) 09/20/19 19:40 Ur Leukocyte Esterase Negative (Negative) 09/20/19 19:40 Urine WBC (Auto) 5-10 /hpf (0-5) H 09/20/19 19:40 Urine RBC (Auto) 0-4 /hpf (0-4) 09/20/19 19:40 U Hyaline Cast (Auto) 1-5 /lpf (0-5) 09/20/19 19:40 U Epithel Cells (Auto) >30 /lpf (0-5) H 09/20/19 19:40 Urine Bacteria (Auto) 4+ (Negative) H 09/20/19 19:40
[2019-09-22] MEDS: ENOXAPARIN INJ 40 MG/0.4 ML SYR SQ SCH (08:29)
[2019-09-22] MEDS: INSULIN ASPART 100 UNITS/ML 3 ML PEN SC SCH ×4 (08:32→20:47)
[2019-09-22] MEDS: INSULIN HUMAN NPH SC SCH ×2 (08:34→17:45)
--- NOTE | 2019-09-22 09:41 | Hospitalist Progress Note ---
Date of Service September 21, 2019 Assessment & Plan (1) Severe sepsis: SIRS plus lactic acidosis Secondary to diabetic foot infection IVF, Abx, follow lactic acid Currently pt is hemodynamically stable and in NAD Cultures - pending Started empirically on Daptomycin and Cefepime, will cont. for now MRI left foot - negative for acute osteomyelitis, Mild dorsal periostitis of the second proximal phalanx may reflect healing fracture or sequela of remote osteomyelitis Podiatry consulted for further recommendations and debridement DM 2 - uncontrolled, current HbA1c 12.8% - previously on oral medications - hx medication noncompliance as per records - Lack of health insurance - consulted community nutrition educator and pharmacy - Basal insulin, ISS BG goal [id number], carb count coverage while inpt - plan to discharge on insulin (lower priced medications, educated pt on low priced [facility] med list) - Social service RE assistance with procurement of medications on discharge given lack of health insurance Tobacco abuse - nicotine patch prn - tobacco cessation counselling - pt interested in smoking cessation Hypertension, slightly elevated secondary discomfort Resume prior home lisinopril Rx if BP still uncontrolled Past history of DVT as per records DVT prophylaxis per Lovenox subcu Full code Subjective Pt is lying in bed, in NAD. Breathing comfortably on room air. Has Left foot pain d/t wound. DM uncontrolled, discussed diabetes management - pt does not have an insurance at this time. Was not aware about low priced medications on [facility] list. Also w ill work w/ pharmacy to start pt on lower priced insulin. Review of Systems Review of Systems: All systems reviewed & are unremarkable except as noted in HPI & below Constitutional: no fever and no chills Respiratory: no cough and no dyspnea Cardiovascular: no chest pain, no palpitations and no edema Gastrointestinal: no abdominal pain, no nausea and no vomiting Physical Exam Physical Exam: GENERAL: Middle aged obese female lying in bed in NAD, pleasant HEENT: NC/AT, EOMI, PERRL NECK : Supple CHEST : CTAB, no wheezing, rhonchi, crackles HEART : RRR, no obvious murmurs ABDOMEN: + bowel sounds, soft, obese,nondistended, nontender EXTREMITIES : wound on the plantar aspect of left forefoot with yellow drainage (superficial abscess about 5 cm in length), tender to palp. + surrounding erythema SKIN: warm, dry, L foot wound as above NEUROLOGIC : alert and oriented x3, no facial asymmetry, speech fluent, moves all 4 extremities spontaneously Results & Data ([place]) Vital Signs (Past 12 Hours) reviewed Laboratory Results reviewed Diagnostic Findings reviewed Medications Administered reviewed
--- NOTE | 2019-09-22 10:11 | Pharmacy Report ---
Pharmacy Glycemic Short Note 2 - Date of Service September 22, 2019 - Glycemic Short BSG Results (Last 24 hours): 09/21/19 09/21/19 09/21/19 11:38 16:37 20:00 POC Glucose 267 H 219 H 267 H Outpatient Anti-diabetic Regimen: * Metformin/glipizide combo agent * A1c = 12.8 % 09/21/2019 ASSESSMENT: * Pt is a 49 yo F with poorly controlled T2DM as outpatient per A1c >10% admitted w/ diabetic complication (foot infection) * Will continue using NPH as basal as patient may be discharged with NPH for basal insulin. Increase dose today 2nd AM fasting hyperglycemia. * Post-prandial elevations noted yesterday, persisted at lunch today. Will tighten CF and CHO ratio. PLAN FOR INPATIENT GLYCEMIC CONTROL: * Holding outpatient oral diabetes medications * Basal insulin - increase * NPH BIDM: 20-40 units, see MAR for further details. * Bolus insulin - tighten * NovoLog per scale ACHS or Q6hrs while NPO * Goal Range: Low 110 mg/dL - High 140 mg/dL * Correction Factor: 15 mg/dL/unit * Nutritional / Prandial insulin per carb ratio of 1 unit per 5 grams CHO consumed PLAN FOR DISCHARGE: * Initiation of insulin indicated given her A1C >10%. Best cost-conscious options would likely be [employer] ReliON 70/30 or NPH + Regular.
--- NOTE | 2019-09-22 11:46 | Hospitalist Progress Note ---
Date of Service September 22, 2019 Assessment & Plan (1) Severe sepsis: SIRS plus lactic acidosis Secondary to diabetic foot infection IVF, Abx, follow lactic acid Currently pt is hemodynamically stable and in NAD Cultures - pending Started empirically on Daptomycin and Cefepime, will cont. for now MRI left foot - negative for acute osteomyelitis, Mild dorsal periostitis of the second proximal phalanx may reflect healing fracture or sequela of remote osteomyelitis Podiatry on case, debriding at bedside DM 2 - uncontrolled, current HbA1c 12.8% - previously on oral medications - hx medication noncompliance as per records - Lack of health insurance - consulted perioperative educator and pharmacy - Basal insulin, ISS BG goal [id number], carb count coverage while inpt - plan to discharge on insulin (lower priced medications, educated pt on low priced [employer] list) - Social service RE assistance with procurement of medications on discharge given lack of health insurance Tobacco abuse - nicotine patch prn - tobacco cessation counselling - pt interested in smoking cessation Hypertension, slightly elevated secondary discomfort Resume prior home lisinopril Rx if BP still uncontrolled Past history of DVT as per records DVT prophylaxis per Lovenox subcu Full code ROS-No Headache, No Visual Changes, No Nausea, No Vomiting, No Fever, No Chills, No Neck Pain or Stiffness, No Chest Pain, No Palpitations, No SOB, No DA SILVA, No Cough, No Sputum, No Wheezing, No Abdominal Pain, No Diarrhea, No Hematemesis, No Hemoptysis, No Unexpected Weight Loss, No Flank pain, No Melena, No Hemat ochezia, No Frequency, No Urgency, No Burning, No Hematuria, No Rashes, No Diaphoresis. Appetite is Normal, sore foot Physical Exam Gen-AAO x 3, NAD, Afebrile Head-NCAT, EOMI, PERRLA, Anicteric Sclera, No Posterior Pharyngeal Erythema Neck-Supple, No JVD, No Thyromegaly, No Masses, No LAD, No Bruits Lungs-Clear to Auscultation Bilaterally, No Rales, No Rhonchi, No Wheezing, No Crepitus Chest-No S4, +S1, +S2, No S3, No Murmurs, No Rubs, No Gallops, No Ectopy Abdomen-Soft, Bowel Sounds Present, Non Tender, Non Distended, No Hepatomegaly, No Splenomegaly, No Palpable Masses, No Rebound, No Rigidity, No Guarding Musculoskeletal-Full Range of Motion Bilaterally, No CVAT Extremities-No Cyanosis, No Clubbing, erythema and edema L foot Nuero-Cranial Nerves II-XII grossly intact, Motor WNL, DTRs WNL, Strength WNL, Non Focal Psych-Normal Mood Results & Data ([facility]) Vital Signs (Past 12 Hours) Vital Signs Temp Pulse Pulse Resp BP Pulse Ox 09/22/19 11:18 37.6 C H 77 16 142/73 H 96 09/22/19 07:18 37.4 C 78 16 151/66 H 93 09/22/19 04:20 80 09/22/19 04:09 36.9 C 87 18 141/81 H 95 09/22/19 00:04 37.9 C H 80 20 124/76 97
--- NOTE | 2019-09-22 12:19 | Infectious Disease Consult ---
Date of Consultation September 22, 2019 Assessment & Plan (1) Cellulitis: continue current abx, await final wound culture. suspect gnr in urine is contamaninant, had > 30 ep cells, few wbc, no symptoms. hopefully d/c on po abx. (2) Diabetic foot ulcer: History of Present Illness Attending Physician: Antonio Malloy DO pt admitted with sepsis, has pain in right foot, mri done, cellulitis, no abscess or osteo. on cefepime and dapto, tolerating well. afebrile. eating lunch on my exam, feeling much improved. blood cultures negative to date, foot culture growing gbs, sensitivities pending, urine culture growing E. coli and second gnr, final pending. wbc initially 18, now 13. cxr negative. no cp, sob, cough. no abd pain no n/v/d. ua >30 ep cells +4 bacteria. ID consulted for abx choice. Allergies Allergy/AdvReac Type Severity Reaction Status Date / Time No Known Allergies Allergy Unknown Verified 09/20/19 22:20 Home Medications Home Medications Medication Instructions Recorded Confirmed Type acetaminophen [Tylenol Extra 1,000 mg PO Q6H PRN 09/20/19 09/20/19 History Strength] ibuprofen [Advil] 400 mg PO Q6 PRN 09/20/19 09/20/19 History Patient History Medical History Diabetes mellitus Social History Preferred Language: Maltese Communication Ability: Effective Beliefs That Will Affect Care: None marital status: Single Current Living Situation: Alone Current Living Situation Comment: home Feels Safe at Home: Yes Smoking Status: Current every day smoker Tobacco Type: cigarettes ; Hx Alcohol Use: No Hx Substance Use: No Review of Systems Review of Systems: All systems reviewed & are unremarkable except as noted in HPI & below Physical Exam Constitutional: WD/WN, vitals as above Eyes: PERRL, conjunctivae normal, anicteric sclerae ENMT: external ear and nose normal, oropharynx normal Neck: normal visual inspection Respiratory: normal respiratory effort, lungs clear to auscultation Cardiovascular: RRR, no murmur, no edema Gastrointestinal (Abdomen): normal bowel sounds, soft, nontender, no hepatosplenomegaly Musculoskeletal: no cyanosis or clubbing, extremities motor strength 5/5 Skin: no rashes, warm and dry Psychiatric: A+Ox3, euthymic affect Results & Data Vital Signs (Past 12 Hours) Vital Signs Temp Pulse Pulse Resp BP Pulse Ox 09/22/19 11:18 37.6 C H 77 16 142/73 H 96 09/22/19 07:18 37.4 C 78 16 151/66 H 93 09/22/19 04:20 80 09/22/19 04:09 36.9 C 87 18 141/81 H 95 Laboratory Results Microbiology 09/20/19 19:40 Urine,Clean Catch Urine Culture - Preliminary Escherichia coli Gram negative bacilli 09/21/19 06:20 Foot,Left Gram Stain - Final 09/21/19 06:20 Foot,Left Wound Culture - Preliminary Group B Beta Strep 09/22/19 06:35 Foot,Left Gram Stain - Final 09/20/19 22:51 Blood Aerobic Blood Culture - Preliminary No growth in Aerobic bottle after 24 hours. 09/20/19 22:51 Blood Anaerobic Blood Culture - Preliminary No growth in Anaerobic bottle after 24 hours. 09/20/19 22:39 Blood Aerobic Blood Culture - Preliminary No growth in Aerobic bottle after 24 hours. 09/20/19 22:39 Blood Anaerobic Blood Culture - Preliminary No growth in Anaerobic bottle after 24 hours. PG Care Time/CCT Total # of Minutes Spent Total Time Spent with Patient: Total time spent is greater than 50% in coordination of care (as documented) at patient's floor/unit and/or counseling patient: Coding Level of Care Code 62732 Inpt Consult Level 4 Diagnoses Cellulitis L03.90 Diabetic foot ulcer E11.621; L97.509
[2019-09-23] MEDS: POLYETHYLENE (MIRALAX) 17 GM PACK PO PRN ×2 (01:00→17:58)
[2019-09-23] MEDS: TRAMADOL HCL 50 MG TABLET PO PRN ×4 (01:03→22:42)
[2019-09-23] MEDS ORDERED: INSULIN ASPART 100 UNITS/ML 3 ML PEN SC ONE (02:00)
[2019-09-23] MEDS: DAPTOmycin 500 MG in SYRINGE 0 ML IV SCH (03:51)
[2019-09-23] MEDS: CEFEPIME 2,000 MG in SYRINGE 7.5 ML IV SCH ×2 (05:44→17:43)
[2019-09-23] MEDS: ENOXAPARIN INJ 40 MG/0.4 ML SYR SQ SCH (07:54)
[2019-09-23 08:13] LABS: Hematocrit (blood only) 34.1 % (37-47); Hemoglobin 11.3 g/dL (12.0-16.0); Mean Corpuscular Hemoglobin 29.7 pg (25-34); Mean Corpuscular Hgb Conc 33.1 g/dL (32-36); Mean Corpuscular Volume 89.5 fL (80-100); Mean Platelet Volume 11.2 fL (7.4-10.4); Platelet Count 203 K/uL (130-400); RDW Coefficient of Variation 12.9 % (11.5-14.5); Red Blood Count 3.81 M/uL (4.2-5.4)
[2019-09-23] MEDS: INSULIN HUMAN NPH SC SCH ×2 (08:27→17:19)
[2019-09-23] MEDS: INSULIN ASPART 100 UNITS/ML 3 ML PEN SC SCH ×4 (08:28→20:29)
[2019-09-23 08:43] LABS: BUN Creatinine Ratio 18.2 (10-20); Calcium 9.1 mg/dl (8.5-10.1); Creatinine Clr Calc Pharmacy 143.6 ml/min; Est GFR (African American) 123.2; Est GFR (Non-African American) 106.3; Potassium 3.7 mmol/L (3.5-5.1)
--- NOTE | 2019-09-23 13:37 | Hospitalist Progress Note ---
Date of Service September 23, 2019 Assessment & Plan (1) Severe sepsis: SIRS plus lactic acidosis Secondary to diabetic foot infection IVF, Abx, follow lactic acid Currently pt is hemodynamically stable and in NAD Cultures are back, sensitivities are pending Started empirically on Daptomycin and Cefepime, will cont. for now, ID on case MRI left foot - negative for acute osteomyelitis, Mild dorsal periostitis of the second proximal phalanx may reflect healing fracture or sequela of remote osteomyelitis Podiatry on case, debriding at bedside DM 2 - uncontrolled, current HbA1c 12.8% - previously on oral medications - hx medication noncompliance as per records - Lack of health insurance - consulted diabetic educator and pharmacy - Basal insulin, ISS BG goal [id number], carb count coverage while inpt - plan to discharge on insulin (lower priced medications, educated pt on low priced [employer] Relion Insulin and Metformin) - Social service RE assistance with procurement of medications on discharge given lack of health insurance - Walking Boot Ordered Tobacco abuse - nicotine patch prn - tobacco cessation counselling - pt interested in smoking cessation Hypertension, slightly elevated secondary discomfort Resume prior home lisinopril Rx if BP still uncontrolled Past history of DVT as per records DVT prophylaxis per Lovenox subcu Full code D/C home in 24-48 hrs ROS-No Headache, No Visual Changes, No Nausea, No Vomiting, No Fever, No Chills, No Neck Pain or Stiffness, No Chest Pain, No Palpitations, No SOB, No DA SILVA, No Cough, No Sputum, No Wheezing, No Abdominal Pain, No Diarrhea, No Hematemesis, No Hemoptysis, No Unexpected Weight Loss, No Flank pain, No Melena, No Hematochezia, No Frequency, No Urgency, No Burning, No Hematuria, No Rashes, No Diaphoresis. Appetite is Normal, sore foot Physical Exam Gen-AAO x 3, NAD, Afebrile Head-NCAT, EOMI, PERRLA, Anicteric Sclera, No Posterior Pharyngeal Erythema Neck-Supple, No JVD, No Thyromegaly, No Masses, No LAD, No Bruits Lungs-Clear to Auscultation Bilaterally, No Rales, No Rhonchi, No Wheezing, No Crepitus Chest-No S4, +S1, +S2, No S3, No Murmurs, No Rubs, No Gallops, No Ectopy Abdomen-Soft, Bowel Sounds Present, Non Tender, Non Distended, No Hepatomegaly, No Splenomegaly, No Palpable Masses, No Rebound, No Rigidity, No Guarding Musculoskeletal-Full Range of Motion Bilaterally, No CVAT Extremities-No Cyanosis, No Clubbing, erythema and edema L foot Nuero-Cranial Nerves II-XII grossly intact, Motor WNL, DTRs WNL, Strength WNL, Non Focal Psych-Normal Mood Results & Data ([facility]) Vital Signs (Past 12 Hours) Vital Signs Temp Pulse Resp BP Pulse Ox 09/23/19 08:06 37.2 C 75 18 118/77 94
--- NOTE | 2019-09-23 16:06 | Pharmacy Report ---
Pharmacy Glycemic Short Note 2 - Date of Service September 23, 2019 - Glycemic Short BSG Results (Last 24 hours): 09/22/19 09/22/19 09/23/19 16:40 20:29 02:04 Glucose POC Glucose 259 H 216 H 214 H 09/23/19 09/23/19 09/23/19 07:41 07:44 11:37 Glucose 248 H POC Glucose 256 H 305 H* 09/23/19 13:37 Glucose POC Glucose 244 H Outpatient Anti-diabetic Regimen: * Metformin/glipizide combo agent * A1c = 12.8 % 09/21/2019 ASSESSMENT: 09/23: * Patient continued to be hyperglycemic through the day, despite large doses of basal/bolus insulin. * Discussed with provider at multidisciplinary rounds and after. Recommended to provider 1-2L of fluid replacement to help reduce blood sugar. Provider will consider. * Will continue current NPH scale as hesitant to push the dose further,and I anticipate BSGs may come down rapidly if fluids administered * Novolog carb coverage slightly tightened this morning. Lunch post prandial >300 but did come down to 244. Discussed with provider and will hold off on IV insulin bolus for now 09/22 * Pt is a 49 yo F with poorly controlled T2DM as outpatient per A1c >10% admitted w/ diabetic complication (foot infection) * Will continue using NPH as basal as patient may be discharged with NPH for basal insulin. Increase dose today 2nd AM fasting hyperglycemia. * Post-prandial elevations noted yesterday, persisted at lunch today. Will tighten CF and CHO ratio. PLAN FOR INPATIENT GLYCEMIC CONTROL: * Holding outpatient oral diabetes medications * Basal insulin * NPH BIDM: 20-40 units, see MAR for further details. * Bolus insulin - tighten * NovoLog per scale ACHS or Q6hrs while NPO * Goal Range: Low 110 mg/dL - High 140 mg/dL * Correction Factor: 15 mg/dL/unit * Nutritional / Prandial insulin per carb ratio of 1 unit per 4 grams CHO consumed PLAN FOR DISCHARGE: * Initiation of insulin indicated given her A1C >10%. Best cost-conscious options would likely be [employer] ReliON 70/30 or NPH + Regular.
[2019-09-23] MEDS: NSS + 20MEQ KCL 20 MEQ/1,000 ML BAG IV SCH (17:43)
[2019-09-24] MEDS: INSULIN ASPART 100 UNITS/ML 3 ML PEN SC SCH ×6 (00:59→21:59)
[2019-09-24] MEDS: MoRPHine SULFATE 4 MG/ML 1 ML CARP\\VIAL IV PRN ×3 (01:08→17:44)
[2019-09-24] MEDS: DAPTOmycin 500 MG in SYRINGE 0 ML IV SCH (04:22)
[2019-09-24] MEDS: CEFEPIME 2,000 MG in SYRINGE 7.5 ML IV SCH ×2 (05:30→17:44)
[2019-09-24] MEDS: NSS + 20MEQ KCL 20 MEQ/1,000 ML BAG IV SCH ×2 (05:30→16:13)
[2019-09-24 07:00] LABS: Hematocrit (blood only) 31.8 % (37-47); Hemoglobin 10.5 g/dL (12.0-16.0); Mean Corpuscular Hemoglobin 29.4 pg (25-34); Mean Corpuscular Volume 89.1 fL (80-100); Platelet Count 195 K/uL (130-400); RDW Coefficient of Variation 12.8 % (11.5-14.5); RDW Standard Deviation 41.2 fL (36.4-46.3); Red Blood Count 3.57 M/uL (4.2-5.4); White Blood Count 11.79 K/uL (4.8-10.8)
[2019-09-24 07:37] LABS: BUN Creatinine Ratio 18.1 (10-20); Calcium 8.9 mg/dl (8.5-10.1); Creatinine Clr Calc Pharmacy 152.4 ml/min; Est GFR (African American) 125.3; Est GFR (Non-African American) 108.1; Potassium 4.1 mmol/L (3.5-5.1)
[2019-09-24] MEDS: INSULIN HUMAN NPH SC SCH ×2 (08:21→17:36)
[2019-09-24] MEDS: ENOXAPARIN INJ 40 MG/0.4 ML SYR SQ SCH (08:22)
--- NOTE | 2019-09-24 09:10 | Pharmacy Report ---
Pharmacy Glycemic Short Note 2 - Date of Service September 24, 2019 - Glycemic Short BSG Results (Last 24 hours): 09/23/19 09/23/19 09/23/19 11:37 13:37 16:48 Glucose POC Glucose 305 H* 244 H 200 H 09/23/19 09/24/19 09/24/19 20:25 00:44 04:16 Glucose POC Glucose 210 H 145 H 150 H 09/24/19 09/24/19 06:45 07:41 Glucose 163 H POC Glucose 161 H Outpatient Anti-diabetic Regimen: * Metformin/glipizide combo agent * A1c = 12.8 % 09/21/2019 ASSESSMENT: * Patient received 146 units of insulin yesterday * 70 units of basal insulin * 76 units of prandial/correctional insulin * BSGs ranging 145 - 305 over the past 24hrs * IV fluids (NSS + 20 mEq K+ @ 100 mL/hr) initiated yesterday afternoon * BSGs trending down since that time - will loosen CF * Fasting BSG this morning of 161 mg/dL PLAN FOR INPATIENT GLYCEMIC CONTROL: * Holding outpatient oral diabetes medications * Basal insulin * NPH BIDM: 20-40 units, see MAR for further details. * Bolus insulin - loosen CF * NovoLog per scale ACHS or Q6hrs while NPO * Goal Range: Low 110 mg/dL - High 140 mg/dL * Correction Factor: 20 mg/dL/unit * Nutritional / Prandial insulin per carb ratio of 1 unit per 4 grams CHO consumed PLAN FOR DISCHARGE: * Initiation of insulin indicated given her A1C >10%. Best cost-conscious options would likely be [employer] ReliON 70/30 or NPH + Regular. * Based on current insulin needs (120-150 units/day) and in the interest of safety - consider [employer] ReliOn 70/30: 45 units before breakfast and 45 units before dinner * Patient will likely require dose intensification, which can take place in the outpatient setting * -Will require post-discharge follow-up for further diabetes management * Patient also on metformin/glipizide combination product 500 mg/5 mg PO BIDM * Reasonable to continue metformin as an outpatient, but glipizide should be discontinued with the initiation of insulin * Recommend metformin XR 500mg PO daily with evening meal. Typically the XR formulation of metformin is better tolerated than the immediate release formulation. Continue to titrate metformin dosing upwards as recommended. Dosage increases should be made in increments of 500 mg weekly, up to 2,000 mg/day PO, given in divided doses. * Support Patient Self-Management * Healthy Lifestyle (diet, exercise, and smoking cessation) * Disease self-management (SMBG) * Prevention of complications (BP, Lipid goals, Immunizations) * Consider outpatient Diabetes Self-Management Education & Support
--- NOTE | 2019-09-24 11:35 | Infectious Disease Progress Nt ---
Date of Service September 24, 2019 Assessment & Plan (1) Cellulitis: continue current abx, await final wound culture. suspect gnr in urine is contamaninant, had > 30 ep cells, few wbc, no symptoms. If second isolate is sensitive to pcn, would suggest d/c on keflex 500mg po bid x 21 days. (2) Diabetic foot ulcer: Subjective pt afebrile, tolerating abx, remains on IV pending cultures. no osteo noted. blood cultures negative. wound culture growing Enterobacter and GBS, final sensitivities pending for 1 isolate of GBS. Results & Data Vital Signs (Past 12 Hours) Vital Signs Temp Pulse Resp BP Pulse Ox 09/24/19 07:03 37.4 C 79 18 131/74 96 09/24/19 00:09 37.6 C H 85 18 122/79 96 Laboratory Results Microbiology 09/21/19 06:20 Foot,Left Gram Stain - Final 09/21/19 06:20 Foot,Left Wound Culture - Preliminary Group B Beta Strep 09/22/19 06:35 Foot,Left Gram Stain - Final 09/22/19 06:35 Foot,Left Deep Wound Culture - Preliminary Enterobacter cloacae Group B Beta Strep 09/20/19 19:40 Urine,Clean Catch Urine Culture - Final Escherichia coli Escherichia coli#2 09/20/19 22:51 Blood Aerobic Blood Culture - Preliminary No growth in Aerobic bottle after 48 hours. 09/20/19 22:51 Blood Anaerobic Blood Culture - Preliminary No growth in Anaerobic bottle after 48 hours. 09/20/19 22:39 Blood Aerobic Blood Culture - Preliminary No growth in Aerobic bottle after 48 hours. 09/20/19 22:39 Blood Anaerobic Blood Culture - Preliminary No growth in Anaerobic bottle after 48 hours. PG Care Time/CCT Total # of Minutes Spent Total Time Spent with Patient: Total time spent is greater than 50% in coordination of care (as documented) at patient's floor/unit and/or counseling patient: Coding Level of Care Code 96557 Subseq Hosp Care Lvl 1 Diagnoses Cellulitis L03.90 Diabetic foot ulcer E11.621; L97.509
--- NOTE | 2019-09-24 11:47 | Hospitalist Progress Note ---
Date of Service September 24, 2019 Assessment & Plan (1) Severe sepsis: SIRS plus lactic acidosis Secondary to diabetic foot infection IVF, Abx, follow lactic acid Currently pt is hemodynamically stable and in NAD Cultures are back, sensitivities are pending Started empirically on Daptomycin and Cefepime, will cont. for now, ID on case If Second Cx S to PCN then Keflex x 21 days MRI left foot - negative for acute osteomyelitis, Mild dorsal periostitis of the second proximal phalanx may reflect healing fracture or sequela of remote osteomyelitis Podiatry on case, f/u in office DM 2 - uncontrolled, current HbA1c 12.8% - previously on oral medications - hx medication noncompliance as per records - Lack of health insurance - consulted slab polisher and pharmacy - Basal insulin, ISS BG goal [id number], carb count coverage while inpt - plan to discharge on insulin (lower priced medications, educated pt on low priced [employer] Relion Insulin and Metformin) - Social service RE assistance with procurement of medications on discharge given lack of health insurance - Walking Boot Fitted Tobacco abuse - nicotine patch prn - tobacco cessation counselling - pt interested in smoking cessation Hypertension, Controlled Resume prior home lisinopril Rx if BP still uncontrolled Past history of DVT as per records DVT prophylaxis per Lovenox subcu Full code D/C home in 24-48 hrs ROS-No Headache, No Visual Changes, No Nausea, No Vomiting, No Fever, No Chills, No Neck Pain or Stiffness, No Chest Pain, No Palpitations, No SOB, No DA SILVA, No Cough, No Sputum, No Wheezing, No Abdominal Pain, No Diarrhea, No Hematemesis, No Hemoptysis, No Unexpected Weight Loss, No Flank pain, No Melena, No Hematochezia, No Frequency, No Urgency, No Burning, No Hematuria, No Rashes, No Diaphoresis. Appetite is Normal, sore foot Physical Exam Gen-AAO x 3, NAD, Afebrile Head-NCAT, EOMI, PERRLA, Anicteric Sclera, No Posterior Pharyngeal Erythema Neck-Supple, No JVD, No Thyromegaly, No Masses, No LAD, No Bruits Lungs-Clear to Auscultation Bilaterally, No Rales, No Rhonchi, No Wheezing, No Crepitus Chest-No S4, +S1, +S2, No S3, No Murmurs, No Rubs, No Gallops, No Ectopy Abdomen-Soft, Bowel Sounds Present, Non Tender, Non Distended, No Hepatomegaly, No Splenomegaly, No Palpable Masses, No Rebound, No Rigidity, No Guarding Musculoskeletal-Full Range of Motion Bilaterally, No CVAT Extremities-No Cyanosis, No Clubbing, erythema and edema L foot Nuero-Cranial Nerves II-XII grossly intact, Motor WNL, DTRs WNL, Strength WNL, Non Focal Psych-Normal Mood Results & Data ([facility]) Vital Signs (Past 12 Hours) Vital Signs Temp Pulse Resp BP Pulse Ox 09/24/19 07:03 37.4 C 79 18 131/74 96 09/24/19 00:09 37.6 C H 85 18 122/79 96
--- NOTE | 2019-09-24 13:12 | Discharge Summary ---
Date of Service September 24, 2019 Admission HPI Per Admitting Provider History obtained from patient and records. Medical history significant for hypertension, hyperlipidemia, DM 2 on oral medications, history of DVT status post Coumadin, ongoing tobacco abuse, medication noncompliance as per records. Remote confinement October, for LLE DVT. Patient has had callus on her left foot bottom for a few months now. Four days ago she noted purulent drainage from open wound on callus. Subsequent left foot swelling. Increase painful left foot swelling the last few days along with chills. No response to foot soaks. No chest pain, no S OB. Blood sugars higher than usual 300s at home. At the ER, patient received vancomycin for diabetic foot infection. 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 Admission Exam Per Admitting Provider GENERAL: Comfortable, pleasant, obese, no respiratory distress SKIN: Normal color, warm HEENT: Bespectacled, pink palpebral conjunctivae, no ptosis, dry buccal mucosa NECK : Supple, short neck, no tenderness CHEST : CTA, no tenderness HEART : RRR, no obvious murmurs ABDOMEN: Some distention, nontender EXTREMITIES : Ulcerated wound on the plantar aspect of left forefoot with scant yellow drainage, minimal LLE swelling, no LE tenderness NEUROLOGIC : Coherent, no facial asymmetry, no other gross focality Principal Diagnosis Severe sepsis:Foot Abscess and cellulitis DM 2 Tobacco abuse Hypertension Hx of DVT as per records Discharge Exam Physical Exam Gen-AAO x 3, NAD, Afebrile Head-NCAT, EOMI, PERRLA, Anicteric Sclera, No Posterior Pharyngeal Erythema Neck-Supple, No JVD, No Thyromegaly, No Masses, No LAD, No Bruits Lungs-Clear to Auscultation Bilaterally, No Rales, No Rhonchi, No Wheezing, No Crepitus Chest-No S4, +S1, +S2, No S3, No Murmurs, No Rubs, No Gallops, No Ectopy Abdomen-Soft, Bowel Sounds Present, Non Tender, Non Distended, No Hepatomegaly, No Splenomegaly, No Palpable Masses, No Rebound, No Rigidity, No Guarding Musculoskeletal-Full Range of Motion Bilaterally, No CVAT Extremities-No Cyanosis, No Clubbing, No Edema, foot wrapped and weeping Nuero-Cranial Nerves II-XII grossly intact, Motor WNL, DTRs WNL, Strength WNL, Non Focal Psych-Normal Mood Discharge Data Allergies Allergy/AdvReac Type Severity Reaction Status Date / Time No Known Allergies Allergy Unknown Verified 09/20/19 22:20 Consultations 09/21/19 00:36 Consult Case Management - Discharge Planning Routine 09/21/19 08:49 Consult Podiatry Routine 09/22/19 11:46 Consult Infectious Diseases Routine Ordered Studies 09/21/19 00:36 MR foot LT wo/w con Routine Current Diagnoses Sepsis, unspecified organism (09/20/19) Type 2 diabetes mellitus with foot ulcer (09/20/19) Cellulitis, unspecified (09/20/19) Non-pressure chronic ulcer of other part of unspecified foot with unspecified severity (09/20/19) Severe sepsis without septic shock (09/20/19) Allergies No Known Allergies Allergy (Unknown, Verified 09/20/19 22:20) Height/Weight/Isolation Height 5 ft 7 in Weight 112 kg Chemistry 09/23/19 09/24/19 07:44 06:45 Sodium 130 L 133 L Potassium 3.7 4.1 Chloride 95 L 99 Carbon Dioxide 29 30 Anion Gap 6.0 4.0 BUN 11 10 Creatinine 0.60 0.57 L Glucose 248 H 163 H Microbiology 09/22/19 06:35 Foot,Left Gram Stain - Final 09/22/19 06:35 Foot,Left Deep Wound Culture - Preliminary Enterobacter cloacae Group B Beta Strep Probable aziza gram neg bacilli 09/21/19 06:20 Foot,Left Gram Stain - Final 09/21/19 06:20 Foot,Left Wound Culture - Final Group B Beta Strep 09/20/19 19:40 Urine,Clean Catch Urine Culture - Final Escherichia coli Escherichia coli#2 09/20/19 22:51 Blood Aerobic Blood Culture - Preliminary No growth in Aerobic bottle after 48 hours. 09/20/19 22:51 Blood Anaerobic Blood Culture - Preliminary No growth in Anaerobic bottle after 48 hours. 09/20/19 22:39 Blood Aerobic Blood Culture - Preliminary No growth in Aerobic bottle after 48 hours. 09/20/19 22:39 Blood Anaerobic Blood Culture - Preliminary No growth in Anaerobic bottle after 48 hours. Hospital Course (1) Severe sepsis: SIRS plus lactic acidosis Secondary to diabetic foot infection Keflex 500 bid x 21 days on DC Currently pt is hemodynamically stable and in NAD Cultures are back, sensitivities are pending Started empirically on Daptomycin and Cefepime, will cont. for now, ID on case MRI left foot - negative for acute osteomyelitis, Mild dorsal periostitis of the second proximal phalanx may reflect healing fracture or sequela of remote osteomyelitis Podiatry on case, f/u in office DM 2 - uncontrolled, current HbA1c 12.8% - previously on oral medications - hx medication noncompliance as per records - Lack of health insurance - consulted primer expeditor and drier and pharmacy - Basal insulin, ISS BG goal [id number], carb count coverage while inpt - plan to discharge on insulin (lower priced medications, educated pt on low priced [employer] Relion Insulin and Metformin) - Social service RE assistance with procurement of medications on discharge given lack of health insurance - Walking Boot Fitted Tobacco abuse - nicotine patch prn - tobacco cessation counselling - pt interested in smoking cessation Hypertension, Controlled Resume prior home lisinopril Rx if BP still uncontrolled Past history of DVT as per records Full code D/C home Total Time Total Time Spent Total Time Spent (In Minutes): 40 mins Total Time Includes: Examination of the Patient, Discharge Planning, Medication Reconciliation and Communication With Other Providers Discharge Plan Discharge Items Patient Disposition: Home - Self-Care Reason For Visit: SEPSIS Discharge Diagnosis: Severe sepsis:Foot Abscess and cellulitis DM 2 Tobacco abuse Hypertension Hx of DVT as per records Condition on Discharge: Good Activity Comment: Use walking boot Lifting: Gradually increase as tolerated Bathing: No limitations Sexual Activity: When tolerated Exercise/Sports: None and Gradually increase as tolerated Driving/Machine Use: No limitations Weightbearing: Full weightbearing Weightbearing Comment: with boot Non-emergency contact: Primary Care Provider and Specialist Call non-emergency contact if: you have any medication questions Follow-up/Referrals: Mayra Holley DO [Primary Care Provider] - 09/29/19 10:55 am Patrizia Ricks DO [Physician] - (3 weeks) Juma Mireles DPM [Physician] - (Call for first opening) Diet: Carb Consistent or DM2 and Heart Healthy Addtl Attending Provider Instructions: Wet to dry dressing changes Pending Studies at Discharge: No Stand-Alone Forms: My [facility], Smoking Cessation Medications and DC Order Prescriptions: New lisinopril 2.5 mg Tablet 2.5 mg PO QAM Qty: 30 RF: 0 insulin NPH and regular human 100 unit/mL (70-30) suspension 45 units SQ BID Qty: 10 RF: 0 metformin 500 mg tablet 500 mg PO BID Qty: 90 RF: 0 cephalexin [Keflex] 500 mg capsule 500 mg PO Q12H 21 Days Qty: 42 RF: 0 (DME) lancets [Lancets,Thin] Misc See Rx Instructions .ROUTE .MEDSUPPLY Qty: 50 RF: 0 (DME) insulin syringes (disposable) 1 mL syringe See Rx Instructions .ROUTE .MEDSUPPLY Qty: 500 RF: 0 Continued acetaminophen [Tylenol Extra Strength] 500 mg Tablet 1,000 mg PO Q6H PRN (Reason: Pain) RF: 0 ibuprofen [Advil] 100 mg Tablet,Chewable 400 mg PO Q6 PRN (Reason: Pain) RF: 0 Discharge Orders: Discharge Order (Routine); Ordered 09/24/19 Ordered By: Antonio Malloy Admission Data Admit Date/Time: 09/20/19 23:20 Attending Provider: Antonio Malloy Admit Provider: Félix Meléndez Primary Care Provider: Mayra Holley Other Providers: Juma Mireles Jennifer
[2019-09-24] MEDS: TRAMADOL HCL 50 MG TABLET PO PRN (14:47)
[2019-09-24] MEDS: POLYETHYLENE (MIRALAX) 17 GM PACK PO PRN (20:32)
[2019-09-25] MEDS: NSS + 20MEQ KCL 20 MEQ/1,000 ML BAG IV SCH ×2 (03:09→08:04)
[2019-09-25] MEDS: DAPTOmycin 500 MG in SYRINGE 0 ML IV SCH (03:53)
[2019-09-25] MEDS: TRAMADOL HCL 50 MG TABLET PO PRN ×2 (04:04→08:57)
[2019-09-25] MEDS: CEFEPIME 2,000 MG in SYRINGE 7.5 ML IV SCH (06:02)
--- NOTE | 2019-09-25 07:20 | Hospitalist Progress Note ---
Date of Service September 25, 2019 Assessment & Plan (1) Severe sepsis: SIRS plus lactic acidosis Secondary to diabetic foot infection Keflex 500 bid x 21 days on DC Currently pt is hemodynamically stable and in NAD Cultures are back, sensitivities are pending Started empirically on Daptomycin and Cefepime, will cont. for now, ID on case MRI left foot - negative for acute osteomyelitis, Mild dorsal periostitis of the second proximal phalanx may reflect healing fracture or sequela of remote osteomyelitis Podiatry on case, f/u in office DM 2 - uncontrolled, current HbA1c 12.8% - previously on oral medications - hx medication noncompliance as per records - Lack of health insurance - consulted unit educator and pharmacy - Basal insulin, ISS BG goal [id number], carb count coverage while inpt - plan to discharge on insulin (lower priced medications, educated pt on low priced [employer] Insulin and Metformin) - Social service RE assistance with procurement of medications on discharge given lack of health insurance - Walking Boot Fitted Tobacco abuse - nicotine patch prn - tobacco cessation counselling - pt interested in smoking cessation Hypertension, Controlled Resume prior home lisinopril Rx if BP still uncontrolled Past history of DVT as per records Full code D/C home today, no ride yesterday Results & Data ([facility]) Vital Signs (Past 12 Hours) Vital Signs Temp Pulse Resp BP Pulse Ox 09/24/19 23:22 37.0 C 81 18 127/75 95
[2019-09-25] MEDS: ENOXAPARIN INJ 40 MG/0.4 ML SYR SQ SCH (08:04)
[2019-09-25 08:35] LABS: Hematocrit (blood only) 32.2 % (37-47); Hemoglobin 10.6 g/dL (12.0-16.0); Mean Corpuscular Hemoglobin 29.8 pg (25-34); Mean Corpuscular Hgb Conc 32.9 g/dL (32-36); Mean Corpuscular Volume 90.4 fL (80-100); Mean Platelet Volume 10.9 fL (7.4-10.4); Platelet Count 228 K/uL (130-400); RDW Standard Deviation 42.8 fL (36.4-46.3); Red Blood Count 3.56 M/uL (4.2-5.4); White Blood Count 13.56 K/uL (4.8-10.8)
[2019-09-25] MEDS: INSULIN ASPART 100 UNITS/ML 3 ML PEN SC SCH ×2 (09:00→12:43)
[2019-09-25] MEDS: INSULIN HUMAN NPH SC SCH (09:01)
[2019-09-25 09:05] LABS: BUN Creatinine Ratio 15.7 (10-20); Calcium 8.8 mg/dl (8.5-10.1); Creatinine Clr Calc Pharmacy 173.7 ml/min; Est GFR (African American) 130.8; Est GFR (Non-African American) 112.9
== END 2019-09-25 13:46 | disposition home or self-care (01) | DRG 872 ==
LOC: ED 18:53 → 2W 23:20 → SUATTDRO 23:20 → 2W 09-21 00:13

== ENCOUNTER 2022-02-28 11:16 | Inpatient (IN) ==
[2022-02-28] MEDS ORDERED: ONDANSETRON INJ 2 MG/ML 2 ML VIAL IV STA (12:01)
[2022-02-28] MEDS ORDERED: SODIUM CHLORIDE 0.9% 1000ML 1,000 ML IV ONE ×2 (12:01→14:01)
--- NOTE | 2022-02-28 12:29 | Emergency Department Note ---
History of Present Illness General Chief complaint: Wound Stated complaint: general illness Time Seen by Provider: 02/28/22 11:40 History of Present Illness Provider complaint: Nausea vomiting Onset (ago): week(s) 2 Location: abdomen, lower extremity and left Radiation: non-radiation Maximum Pain Intensity: 0 Associated symptoms: + malaise and + nausea/vomiting; no chest pain, no cough, no fever/chills, no headaches or no shortness of breath 51-year-old female presents emergency department for nausea vomiting and weakness for the last 2 weeks. Patient reports she is diabetic and her sugars have been out of control. Patient also reports that over the last 2 days her left lower extremity has developed a wound which is draining on it. She denies any fevers. No hematemesis coffee-ground emesis or bilious vomiting. No hematochezia or melena. Home Medications Medication Instructions Recorded Confirmed Type Lactobacillus acidoph-L.bulgaricus 1 tab PO BID #60 tabs 10/10/19 01/07/20 Rx 1 million cell chewable tablet (Lactinex) lisinopril 10 1 tab PO QAM 11/01/19 02/28/22 History mg-hydrochlorothiazide 12.5 mg tablet aspirin 81 mg tablet,delayed 81 mg PO QAM 02/28/22 02/28/22 History release (Adult Aspirin Regimen) insulin glargine 100 unit/mL (3 50 unit subcut BID 02/28/22 02/28/22 History mL) subcutaneous pen (Lantus Solostar U-100 Insulin) semaglutide 3 mg tablet (Rybelsus) 0 mg PO QAM 02/28/22 02/28/22 History Allergies Allergy/AdvReac Type Severity Reaction Status Date / Time No Known Allergies Allergy Unknown Verified 12/31/19 09:41 Past Med/Surg History Medical History Back pain Depression with anxiety Diabetes type 2, uncontrolled Diabetic peripheral neuropathy associated with type 2 diabetes mellitus Dysfunctional uterine bleeding Dyslipidemia Fatigue Hirsutism History of DVT (deep vein thrombosis) HTN (hypertension) Insomnia Loss of protective sensation of skin of foot Obesity Personal history of diabetic foot ulcer Tobacco use Type 2 diabetes mellitus with complications Type 2 diabetes mellitus, with long-term current use of insulin Varicose veins of both lower extremities Vitamin D deficiency Xerosis cutis Surgical History H/O tooth extraction History of History of cholecystectomy History of endometrial ablation History of facial surgery History of hysterectomy History of incision and drainage left foot by Dr. Haq on 10-03-19. History of nasal polypectomy History of tubal ligation Family History Father Dyslipidemia Prostate cancer Diabetes Lung cancer Mother Lung cancer Hypothyroidism Brother Coronary heart disease Asthma Grandfather (Maternal) Myocardial infarction Grandmother (Maternal) Myocardial infarction Grandmother (Paternal) Breast cancer Diabetes Social History Smoking Status: Former smoker Hx Alcohol Use: No Hx Substance Use: No Preferred Language: Mongolian Communication Ability: Effective Pst Manager Required: No Beliefs That Will Affect Care: None marital status: Single Current Living Situation: Alone Current Living Situation Comment: home Feels Safe at Home: Yes Assistive Devices: Cane Review of Systems A total of 10 systems reviewed and were otherwise negative Physical Exam Vital Signs Vital Signs - 24 hr 02/28/22 11:24 02/28/22 12:17 02/28/22 12:19 Temperature 36.6 C Temperature Source Oral Pulse Rate 81 79 Pulse Rate [Apical] 83 Pulse Rhythm Regular Pulse Rhythm [Apical] Regular Pulse Strength Normal Pulse Strength [Apical] Normal Respiratory Rate 20 22 22 Respiratory Effort / Characteristics Non-Labored Non-Labored Respiratory Depth Normal Normal Respiratory Pattern Regular Regular Blood Pressure 175/83 H Blood Pressure [Left Arm] 170/77 H Blood Pressure Mean 113 Blood Pressure Mean [Left Arm] 108 Blood Pressure Position Lying Blood Pressure Position [Left Arm] Lying Pulse Oximetry 100 100 100 Oxygen Delivery Method Room Air Room Air Room Air Sepsis Recent Fever Within 48 Hours No Sepsis New/Unexplained Change in Mental Status No Sepsis Action Taken by Nursing No Action Required 02/28/22 14:12 Temperature Temperature Source Pulse Rate Pulse Rate [Apical] 89 Pulse Rhythm Pulse Rhythm [Apical] Pulse Strength Pulse Strength [Apical] Respiratory Rate 24 Respiratory Effort / Characteristics Non-Labored Spontaneous Respiratory Depth Normal Respiratory Pattern Blood Pressure Blood Pressure [Left Arm] 106/88 Blood Pressure Mean Blood Pressure Mean [Left Arm] 94 Blood Pressure Position Blood Pressure Position [Left Arm] Pulse Oximetry 95 Oxygen Delivery Method Room Air Sepsis Recent Fever Within 48 Hours Sepsis New/Unexplained Change in Mental Status Sepsis Action Taken by Nursing Physical Exam HENT: Exam performed. -Head: Normocephalic and atraumatic. -Right Ear: External ear normal. No mastoid tenderness. -Left Ear: External ear normal. No mastoid tenderness. -Mouth/Throat: The oropharynx is clear and moist. No trismus in the jaw. No dental abscesses or uvula swelling. No oropharyngeal exudate or tonsillar abscesses. EYES: Conjunctivae and EOM are normal. Pupils are equal, round, and reactive to light. Right eye exhibits no discharge. Left eye exhibits no discharge. No scle ral icterus. NECK: Normal range of motion. Neck supple. No JVD present. No spinous process tenderness present. No carotid bruit present. No rigidity. No tracheal deviation and normal range of motion present. No Brudzinski's sign and no Kernig's sign noted. CV: Normal rate, regular rhythm, normal heart sounds and intact distal pulses. There is no peripheral edema. Palpable radial pulses bue. PULM/CHEST: Effort normal and breath sounds normal. No respiratory distress. No stridor. She has no wheezes. She has no rales. -Chest Wall: She exhibits no tenderness. ABD: The abdomen is soft. Bowel sounds are normal. She has no distension. No mass is present. There is no tenderness. There is no rebound, no guarding, no Goodrich's sign and no tenderness at McBurney's point. Rovsig negative MUSC/SKEL: Normal range of motion. There is no peripheral edema, tenderness or deformity. PT pulses bilateral lower extremities LYMPH: No cervical adenopathy. NEURO: She is alert and oriented to person, place, and time. She has normal strength. No cranial nerve deficit or sensory deficit. Coordination and gait normal. GCS eye subscore is 4. GCS verbal subscore is 5. GCS motor subscore is 6. Cerebellar tests wnl. SKIN: Wound on the left lower extremity over the lateral area that is draining purulent foul-smelling discharge. Course Course 1140: The patient was evaluated in room C12. A complete history and physical exam was performed Cardiac monitoring: An order was placed for continuous cardiac monitoring. The monitor shows a rate of 80 with sinus rhythm 1400: Vital signs stable. Labs show leukocytosis 29.6. Potassium 3. Patient's glucose is 242. Anion gap 20. Patient is very dehydrated with a BUN/creatinine ratio of 42. Patient will be treated with IV fluids. We will hold off on insulin drip at this time. Patient is on insulin normally. X-ray imaging shows no evidence of osteomyelitis however there is diffuse soft tissue swelling consistent with cellulitis versus edema. Urinalysis is also concerning for infection. Patient be treated with Zosyn. Patient be admitted to the [facility] team. Dr. Rodriguez team notified Administered Medications Ketorolac Tromethamine (Ketorolac Tromethamine 15 Mg/Ml Vial) 15 mg IV Q6H PRN PRN Reason: Pain Stop: 03/05/22 15:45 Last Admin: 02/28/22 16:14 Dose: 15 mg Documented By: JORGE L Discontinued Medications Sodium Chloride (Nss 1000ml) 1,000 mls @ 999 mls/hr IV .Q1H1M ONE Stop: 02/28/22 13:01 Last Admin: 02/28/22 12:54 Dose: 999 mls/hr Documented By: JORGE L Sodium Chloride (Nss 1000ml) 1,000 mls @ 999 mls/hr IV .Q1H1M ONE Stop: 02/28/22 15:01 Last Admin: 02/28/22 14:10 Dose: 999 mls/hr Documented By: BRAYDEN Piperacillin Sod/Tazobactam Sod (Zosyn) 4.5 gm in 120 mls @ 240 mls/hr IV NOW ONE Stop: 02/28/22 14:30 Last Admin: 02/28/22 15:22 Dose: 240 mls/hr Documented By: SANDRA Potassium Chloride (K Brennan / Wtr) 10 meq in 100 mls @ 100 mls/hr IV Q1H [facility]; Protocol Stop: 02/28/22 16:29 Last Admin: 02/28/22 17:26 Dose: 100 mls/hr Documented By: JORGE L Infusion: 02/28/22 17:26 Dose: 100 mls/hr Documented By: JORGE L Admin: 02/28/22 16:30 Dose: 100 mls/hr Documented By: JORGE L Ondansetron HCl (Ondansetron Inj 2 Mg/Ml 2 Ml Vial) 4 mg IV NOW STA Stop: 02/28/22 12:02 Last Admin: 02/28/22 12:54 Dose: 4 mg Documented By: JORGE L Potassium Chloride (Potassium Chloride Crtab 20 Meq Tabcr) 40 meq PO NOW STA Stop: 02/28/22 14:35 Last Admin: 02/28/22 15:21 Dose: 40 meq Documented By: SANDRA Medical Decision Making Laboratory Data Result diagrams: 02/28/22 12:50 02/28/22 17:25 Lab Results 02/28/22 02/28/22 02/28/22 Range/Units 12:40 12:46 12:50 WBC 29.69 H (4.8-10.8) K/ul RBC 4.14 (3.93-5.22) M/uL Hgb 10.5 L (12.0-16.0) g/dl Hct 34.2 (34.1-44.9) % MCV 82.6 (80.0-100.0) fL MCH 25.4 (25.0-34.0) pg MCHC 30.7 L (32.0-36.0) g/dL RDW Std Deviation 48.1 H (36.4-46.3) fL RDW Coeff of Mya 15.9 H (11.5-14.5) % Plt Count 780 H (130-400) K/uL MPV 9.7 (9.4-12.3) fL Immature Gran % (Auto) 4.0 % Neut % (Auto) 85.6 % Lymph % (Auto) 7.3 % [place] % (Auto) 2.7 % Eos % (Auto) 0.1 % Baso % (Auto) 0.3 % Neut # (Auto) 25.41 H (1.4-6.5) K/uL Lymph # (Auto) 2.17 (1.2-3.4) K/uL [place] # (Auto) 0.81 (0.24-0.82) K/uL Eos # (Auto) 0.02 (0-0.50) K/uL Baso # (Auto) 0.09 (0-0.2) K/uL Immature Gran # (Auto) 1.19 H (0.00-0.02) K/uL ESR (0-30) mm/hr Sodium (136-145) mmol/L Potassium (3.5-5.1) mmol/L Chloride (98-107) mmol/L Carbon Dioxide (21-32) mmol/L Anion Gap (3-11) BUN (6-23) mg/dl Creatinine (0.6-1.2) mg/dl Est Cr Clr Drug Dosing ml/min Est GFR ( Amer) ml/min Est GFR (Non-Af Amer) ml/min BUN/Creatinine Ratio (10-20) Glucose (70-99(Fasting)) mg/dl POC Glucose (70-99) mg/dl Calcium (8.5-10.1) mg/dl Total Bilirubin (0.2-1.0) mg/dl Direct Bilirubin (0-0.2) mg/dl AST (13-39) U/L ALT (7-52) U/L Alkaline Phosphatase (34-104) U/L C-Reactive Protein (0-0.5) mg/dl Total Protein (6.0-8.3) gm/dl Albumin (3.4-5.0) gm/dl Lipase (11-82) U/L Procalcitonin (0-0.5) ng/ml Urine Color Yellow Urine Appearance Cloudy A (Clear) Urine pH 5.0 (4.5-7.5) Ur Specific [place] 1.008 (1.000-1.030) Urine Protein 1+ H (Negative) Urine Glucose (UA) 1+ H (Negative) Urine Ketones 1+ H (Negative) Urine Blood 1+ H (Negative) Urine Nitrite Negative (Negative) Urine Bilirubin Negative (Negative) Urine Urobilinogen Negative (Negative) Ur Leukocyte Esterase 3+ H (Negative) Urine WBC (Auto) >30 H (0-5) /hpf Urine RBC (Auto) 0-4 (0-4) /hpf U Hyaline Cast (Auto) 1-5 (0-5) /lpf U Epithel Cells (Auto) 5-10 H (0-5) /lpf Urine Bacteria (Auto) Negative (Negative) SARS-CoV-2, RNA, NAAT NEGATIVE (NEGATIVE) 02/28/22 02/28/22 02/28/22 Range/Units 12:50 12:50 14:11 WBC (4.8-10.8) K/ul RBC (3.93-5.22) M/uL Hgb (12.0-16.0) g/dl Hct (34.1-44.9) % MCV (80.0-100.0) fL MCH (25.0-34.0) pg MCHC (32.0-36.0) g/dL RDW Std Deviation (36.4-46.3) fL RDW Coeff of Mya (11.5-14.5) % Plt Count (130-400) K/uL MPV (9.4-12.3) fL Immature Gran % (Auto) % Neut % (Auto) % Lymph % (Auto) % [place] % (Auto) % Eos % (Auto) % Baso % (Auto) % Neut # (Auto) (1.4-6.5) K/uL Lymph # (Auto) (1.2-3.4) K/uL [place] # (Auto) (0.24-0.82) K/uL Eos # (Auto) (0-0.50) K/uL Baso # (Auto) (0-0.2) K/uL Immature Gran # (Auto) (0.00-0.02) K/uL ESR > 130 H (0-30) mm/hr Sodium 134 L (136-145) mmol/L Potassium 3.0 L (3.5-5.1) mmol/L Chloride 92 L (98-107) mmol/L Carbon Dioxide 22 (21-32) mmol/L Anion Gap 20 H (3-11) BUN 35 H (6-23) mg/dl Creatinine 0.83 (0.6-1.2) mg/dl Est Cr Clr Drug Dosing 108.8 ml/min Est GFR ( Amer) 94.0 ml/min Est GFR (Non-Af Amer) 81.1 ml/min BUN/Creatinine Ratio 42.2 H (10-20) Glucose 242 H (70-99(Fasting)) mg/dl POC Glucose 251 H (70-99) mg/dl Calcium 8.0 L (8.5-10.1) mg/dl Total Bilirubin 0.4 (0.2-1.0) mg/dl Direct Bilirubin 0.1 (0-0.2) mg/dl AST 9 L (13-39) U/L ALT 4 L (7-52) U/L Alkaline Phosphatase 145 H (34-104) U/L C-Reactive Protein (0-0.5) mg/dl Total Protein 7.8 (6.0-8.3) gm/dl Albumin 2.7 L (3.4-5.0) gm/dl Lipase 11 (11-82) U/L Procalcitonin (0-0.5) ng/ml Urine Color Urine Appearance (Clear) Urine pH (4.5-7.5) Ur Specific [place] (1.000-1.030) Urine Protein (Negative) Urine Glucose (UA) (Negative) Urine Ketones (Negative) Urine Blood (Negative) Urine Nitrite (Negative) Urine Bilirubin (Negative) Urine Urobilinogen (Negative) Ur Leukocyte Esterase (Negative) Urine WBC (Auto) (0-5) /hpf Urine RBC (Auto) (0-4) /hpf U Hyaline Cast (Auto) (0-5) /lpf U Epithel Cells (Auto) (0-5) /lpf Urine Bacteria (Auto) (Negative) SARS-CoV-2, RNA, NAAT (NEGATIVE) 02/28/22 02/28/22 Range/Units 14:25 14:30 WBC (4.8-10.8) K/ul RBC (3.93-5.22) M/uL Hgb (12.0-16.0) g/dl Hct (34.1-44.9) % MCV (80.0-100.0) fL MCH (25.0-34.0) pg MCHC (32.0-36.0) g/dL RDW Std Deviation (36.4-46.3) fL RDW Coeff of Mya (11.5-14.5) % Plt Count (130-400) K/uL MPV (9.4-12.3) fL Immature Gran % (Auto) % Neut % (Auto) % Lymph % (Auto) % [place] % (Auto) % Eos % (Auto) % Baso % (Auto) % Neut # (Auto) (1.4-6.5) K/uL Lymph # (Auto) (1.2-3.4) K/uL [place] # (Auto) (0.24-0.82) K/uL Eos # (Auto) (0-0.50) K/uL Baso # (Auto) (0-0.2) K/uL Immature Gran # (Auto) (0.00-0.02) K/uL ESR (0-30) mm/hr Sodium (136-145) mmol/L Potassium (3.5-5.1) mmol/L Chloride (98-107) mmol/L Carbon Dioxide (21-32) mmol/L Anion Gap (3-11) BUN (6-23) mg/dl Creatinine (0.6-1.2) mg/dl Est Cr Clr Drug Dosing ml/min Est GFR ( Amer) ml/min Est GFR (Non-Af Amer) ml/min BUN/Creatinine Ratio (10-20) Glucose (70-99(Fasting)) mg/dl POC Glucose (70-99) mg/dl Calcium (8.5-10.1) mg/dl Total Bilirubin (0.2-1.0) mg/dl Direct Bilirubin (0-0.2) mg/dl AST (13-39) U/L ALT (7-52) U/L Alkaline Phosphatase (34-104) U/L C-Reactive Protein 25.28 H (0-0.5) mg/dl Total Protein (6.0-8.3) gm/dl Albumin (3.4-5.0) gm/dl Lipase (11-82) U/L Procalcitonin 2.63 H (0-0.5) ng/ml Urine Color Urine Appearance (Clear) Urine pH (4.5-7.5) Ur Specific [place] (1.000-1.030) Urine Protein (Negative) Urine Glucose (UA) (Negative) Urine Ketones (Negative) Urine Blood (Negative) Urine Nitrite (Negative) Urine Bilirubin (Negative) Urine Urobilinogen (Negative) Ur Leukocyte Esterase (Negative) Urine WBC (Auto) (0-5) /hpf Urine RBC (Auto) (0-4) /hpf U Hyaline Cast (Auto) (0-5) /lpf U Epithel Cells (Auto) (0-5) /lpf Urine Bacteria (Auto) (Negative) SARS-CoV-2, RNA, NAAT (NEGATIVE) Imaging Data Radiologist's Impression: KUB X-Ray 02/28/22 12:01 XR KUB/Abdomen 1 view CLINICAL HISTORY: nv. COMPARISON STUDY: No previous studies for comparison. TECHNIQUE: Multiple supine images were obtained of the 4 quadrants of the abdomen. FINDINGS: The bowel gas pattern is within normal limits without evidence for dilatation or obstruction. There is no evidence for organomegaly or gross intra-abdominal mass. No abnormal calcifications are seen along the course of the urinary tracts bilaterally. No acute osseous pathology. IMPRESSION: 1. No acute intra-abdominal abnormality. ACT 112: Negative or not required by law. Electronically signed by: Lonnie Clemente M.D. 02/28/2022 1:50 PM Tibia/Fibula X-Ray 02/28/22 12:02 XR tibia fibula LT 2V CLINICAL HISTORY: wound Comparison: None available at the time of this dictation. TECHNIQUE: 2 radiographic views of the right leg were obtained. FINDINGS: There is no evidence of an acute fracture. The alignment is anatomic. Joint spac es are well-preserved. Diffuse soft tissue swelling is seen. IMPRESSION: No focal erosion is seen to suggest osteomyelitis. Diffuse soft tissue swelling is compatible with cellulitis versus edema. ACT 112: Negative or not required by law. Electronically signed by: Loyd Arambula M.D. 02/28/2022 1:52 PM Chest X-Ray 02/28/22 13:30 SINGLE VIEW CHEST CLINICAL HISTORY: Nausea and vomiting FINDINGS: An AP, portable, upright chest radiograph is compared to study dated . The cardiomediastinal silhouette is top normal for projection. There is mild bibasilar atelectasis. The lungs and pleural spaces are otherwise clear. No pneumothorax is seen. The bony thorax is grossly intact. IMPRESSION: No active disease in the chest. ACT 112: Negative or not required by law. Electronically signed by: Marvin Brumfield M.D. 02/28/2022 1:56 PM MDM Narrative Vital signs stable. Labs show leukocytosis 29.6. Potassium 3. Patient's glucose is 242. Anion gap 20. Patient is very dehydrated with a BUN/creatinine ratio of 42. Patient will be treated with IV fluids. We will hold off on insulin drip at this time. Patient is on insulin normally. X-ray imaging shows no evidence of osteomyelitis however there is diffuse soft tissue swelling consi stent with cellulitis versus edema. Urinalysis is also concerning for infection. Patient be treated with Zosyn. Patient be admitted to the [facility] team. Dr. Rodriguez team notified Impression & Plan UTI (urinary tract infection), Diabetic foot infection Discharge Plan Visit Data Chief Complaint: Wound Stated Complaint: general illness ED Provider: Alexis Seaman Discharge Problem: UTI (urinary tract infection), Diabetic foot infection Patient Disposition: Admitted As Inpatient Discharge Instructions Interventions: ED Discharge Assessment Last Done: 02/28/22 18:28
[2022-02-28 12:59] LABS: Appearance Urine Cloudy (Clear); Bilirubin Urine Negative (Negative); Blood Urine 1+ (Negative); Color Urine Yellow; Glucose Urine UA 1+ (Negative); Ketones Urine 1+ (Negative); Leukocyte Esterase Urine 3+ (Negative); Nitrite Urine Negative (Negative); Protein Urine 1+ (Negative); Specific Gravity Urine 1.008 (1.000-1.030); Urobilinogen Urine Negative (Negative)
[2022-02-28 13:25] LABS: WBC Urine Automated >30 /hpf (0-5)
[2022-02-28 13:26] LABS: Bacteria Urine Automated Negative (Negative); RBC Urine Automated 0-4 /hpf (0-4)
[2022-02-28 13:39] LABS: Albumin Level 2.7 gm/dl (3.4-5.0); BUN Creatinine Ratio 42.2 (10-20); Bilirubin Direct 0.1 mg/dl (0-0.2); Bilirubin,Total 0.4 mg/dl (0.2-1.0); Creatinine Clr Calc Pharmacy 108.8 ml/min; Est GFR (Non-African American) 81.1 ml/min; Total Protein 7.8 gm/dl (6.0-8.3)
--- NOTE | 2022-02-28 13:52 | XRay Report ---
XR KUB/Abdomen 1 view CLINICAL HISTORY: nv. COMPARISON STUDY: No previous studies for comparison. TECHNIQUE: Multiple supine images were obtained of the 4 quadrants of the abdomen. FINDINGS: The bowel gas pattern is within normal limits without evidence for dilatation or obstruction. There i s no evidence for organomegaly or gross intra-abdominal mass. No abnormal calcifications are seen darrel ng the course of the urinary tracts bilaterally. No acute osseous pathology. IMPRESSION: 1. No acute intra-abdominal abnormality. ACT 112: Negative or not required by law. Electronically signed by: Lonnie Clemente M.D. 02/28/2022 1:50 PM
--- NOTE | 2022-02-28 13:53 | XRay Report ---
XR tibia fibula LT 2V CLINICAL HISTORY: wound Comparison: None available at the time of this dictation. TECHNIQUE: 2 radiographic views of the right leg were obtained. FINDINGS: There is no evidence of an acute fracture. The alignment is anatomic. Joint spaces are well-preserved . Diffuse soft tissue swelling is seen. IMPRESSION: No focal erosion is seen to suggest osteomyelitis. Diffuse soft tissue swelling is compatible with ce llulitis versus edema. ACT 112: Negative or not required by law. Electronically signed by: Loyd Arambula M.D. 02/28/2022 1:52 PM
[2022-02-28 13:56] LABS: Basophils # (auto) 0.09 K/uL (0-0.2); Basophils % (auto) 0.3 %; Eosinophils # (auto) 0.02 K/uL (0-0.50); Eosinophils % (auto) 0.1 %; Hematocrit (blood only) 34.2 % (34.1-44.9); Hemoglobin 10.5 g/dl (12.0-16.0); Immature Granulocytes # (auto) 1.19 K/uL (0.00-0.02); Lymphocytes # (auto) 2.17 K/uL (1.2-3.4); Lymphocytes % (auto) 7.3 %; Mean Corpuscular Hemoglobin 25.4 pg (25.0-34.0); Mean Corpuscular Hgb Conc 30.7 g/dL (32.0-36.0); Mean Corpuscular Volume 82.6 fL (80.0-100.0); Mean Platelet Volume 9.7 fL (9.4-12.3); Monocytes # (auto) 0.81 K/uL (0.24-0.82); Monocytes % (auto) 2.7 %; Neutrophils # (auto) 25.41 K/uL (1.4-6.5); Neutrophils % (auto) 85.6 %; Platelet Count 780 K/uL (130-400); RDW Coefficient of Variation 15.9 % (11.5-14.5); RDW Standard Deviation 48.1 fL (36.4-46.3); Red Blood Count 4.14 M/uL (3.93-5.22); White Blood Count 29.69 K/ul (4.8-10.8)
--- NOTE | 2022-02-28 13:57 | XRay Report ---
SINGLE VIEW CHEST CLINICAL HISTORY: Nausea and vomiting FINDINGS: An AP, portable, upright chest radiograph is compared to study dated 09/20/2019. The cardiome diastinal silhouette is top normal for projection. There is mild bibasilar atelectasis. The lungs and pleural spaces are otherwise clear. No pneumothorax is seen. The bony thorax is grossly intact. IMPRESSION: No active disease in the chest. ACT 112: Negative or not required by law. Electronically signed by: Marvin Brumfield M.D. 02/28/2022 1:56 PM
[2022-02-28] MEDS ORDERED: PIPERACILLIN/TAZOBACTAM 4.5 GM/120 ML BAG IV ONE (14:01)
[2022-02-28] MEDS ORDERED: POTASSIUM CHLORIDE CRTAB 20 MEQ TABCR PO STA (14:34)
--- NOTE | 2022-02-28 14:35 | History & Physical Report ---
Date of Service February 28, 2022 Assessment & Plan (1) DKA (diabetic ketoacidosis): (2) Diabetic foot infection: (3) UTI (urinary tract infection): (4) Type 2 diabetes mellitus, with long-term current use of insulin: (5) Hypokalemia: Plan DKA with h/o IDDM- due to noncompliance to insulin and acute infection. Hasn't taken any insulin or meds for past 4 days. AG 20, BG 250s. A1c pending. Repleted K and started on DKA protocol with labs. Follow up on q4hr labs and switch insulin drip to basal bolus when AG closed. Consult certified lactation educator. Consult glycemic pharmacist for insulin management. Home regimen is basaglar 50 U bid, novolog 20-25 U tid with meals and semaglutide daily but hasn't taken any meds or BG for past 4 days. Left diabetic foot infection with ascending cellulitis left leg- Ongoing left foot infection for past 1.5 weeks with purulent discharge and taking care of at home by self with soap water but hasn't seen any doctor. On tylenol and ibuprofen at home for pain. Denies any fever, chills, N/V. Prior wound clx reviewed- MSSA and enterobacter sensitive to zosyn. WBC 29. CRP 25, ESR >120, procal 2.63. Xray did not show any OM but will get MRI left foot to r/o any underlying OM. Will start on Vanc/ zosyn pending clx results. Follow blood and wound clx results. WOCN eval. Might need podiatry eval and ID consult depending on MRI results or clx results. UTI- UA concerning for UTI. Continue zosyn pending urine clx results. Hypokalemia- repleted. Follow up on labs Thrombocytosis- Plt count 780 ?reactive. Prior plt count normal. Repeat in am. Normocytic Anemia- chronic, stable at 10 ?anemia of chronic disease. check iron studies and B12. HTN- on lisinopril-HCTZ at home. Resume lisinopril, hold HCTZ. DVT ppx- sc lovenox Dispo- PCU on tele Full code PT eval when stable History of Present Illness Chief Complaint: left foot infection Primary Care Provider: [facility] 51 year old female with h/o DM-2 on insulin, HTN, obesity who presented to the ED with left foot infection for the past 1.5 week which is not improving. States she lives by herself at home. [place] sick 2 weeks ago with N/V/abd pain which resolved last week and now able to tolerate small food. For past 1.5 weeks, she has been having left sole wound beneath 2nd toe with brown discharge. She has been cleaning with soap water at home but it does not seem to be improving. Also has increasing redness of left leg ascending up, painful. Taking tylenol alternating with ibuprofen at home for pain. Hasn't seen any doctor for any of these issues. No fever, chills, chest pain, shortness of breath. She hasn't taken any of her meds or insulin for past 4 days as she felt sick. Doesn't smoke anymore. Had prior diabetic foot ulcer requiring wound vac in 09/2019. Allergies Allergy/AdvReac Type Severity Reaction Status Date / Time No Known Allergies Allergy Unknown Verified 12/31/19 09:41 Home Medications Medication Instructions Recorded Confirmed Type Lactobacillus acidoph-L.bulgaricus 1 tab PO BID #60 tabs 10/10/19 01/07/20 Rx 1 million cell chewable tablet (Lactinex) lisinopril 10 1 tab PO DAILY 11/01/19 01/07/20 History mg-hydrochlorothiazide 12.5 mg tablet aspirin 81 mg tablet,delayed 81 mg PO QAM 02/28/22 02/28/22 History release (Adult Aspirin Regimen) insulin glargine 100 unit/mL (3 50 unit subcut BID 02/28/22 02/28/22 History mL) subcutaneous pen (Lantus Solostar U-100 Insulin) semaglutide 3 mg tablet (Rybelsus) 0 mg PO QAM 02/28/22 02/28/22 History Past Med/Surg History Medical History Back pain Depression with anxiety Diabetes type 2, uncontrolled Diabetic peripheral neuropathy associated with type 2 diabetes mellitus Dysfunctional uterine bleeding Dyslipidemia Fatigue Hirsutism History of DVT (deep vein thrombosis) HTN (hypertension) Insomnia Loss of protective sensation of skin of foot Obesity Personal history of diabetic foot ulcer Tobacco use Type 2 diabetes mellitus with complications Type 2 diabetes mellitus, with long-term current use of insulin Varicose veins of both lower extremities Vitamin D deficiency Xerosis cutis Surgical History H/O tooth extraction History of History of cholecystectomy History of endometrial ablation History of facial surgery History of hysterectomy History of incision and drainage left foot by Dr. Haq on 10-03-19. History of nasal polypectomy History of tubal ligation Family History Father Dyslipidemia Prostate cancer Diabetes Lung cancer Mother Lung cancer Hypothyroidism Brother Coronary heart disease Asthma Grandfather (Maternal) Myocardial infarction Grandmother (Maternal) Myocardial infarction Grandmother (Paternal) Breast cancer Diabetes Social History Smoking Status: Former smoker Hx Alcohol Use: No Hx Substance Use: No Preferred Language: [place] Leonean Communication Ability: Effective Membership Sales Advisor Required: No Beliefs That Will Affect Care: None marital status: Single Current Living Situation: Alone Current Living Situation Comment: home Feels Safe at Home: Yes Assistive Devices: Cane Review of Systems Review of Systems: All systems reviewed & are unremarkable except as noted in Subjective Physical Exam Physical Exam: General: Obese female, Lying comfortably in bed, not in distress, on room air HEENT: EOMI, GISEL, MMM Chest: Clear breath sounds bilaterally, no wheezes or crackles CVS: Regular rate and rhythm, normal heart sounds, no murmur Abdomen: Soft, non tender, not distended, normal bowel sounds Neuro: Awake, alert, oriented, conversing well, non focal Extremities: LLE cellulitis from foot all the way upto posterior knee- erythematous, tender. left sole with dried discharge, mild edema bilaterally Results & Data Results & Data ([facility]) Vital Signs (Past 12 Hours) Vital Signs Temp Pulse Pulse Resp BP BP Pulse Ox 02/28/22 14:12 89 24 106/88 95 02/28/22 12:19 79 22 100 02/28/22 12:17 83 22 170/77 H 100 02/28/22 11:24 36.6 C 81 20 175/83 H 100 O2 Del Method 02/28/22 14:12 Room Air 02/28/22 12:19 Room Air 02/28/22 12:17 Room Air 02/28/22 11:24 Room Air Laboratory Results Short CBC 02/28/22 Range/Units 12:50 WBC 29.69 H (4.8-10.8) K/ul Hgb 10.5 L (12.0-16.0) g/dl Hct 34.2 (34.1-44.9) % Plt Count 780 H (130-400) K/uL BMP 02/28/22 12:50 Sodium 134 L Potassium 3.0 L Chloride 92 L Carbon Dioxide 22 BUN 35 H Creatinine 0.83 Glucose 242 H Calcium 8.0 L Liver Function 02/28/22 Range/Units 12:50 Total Bilirubin 0.4 (0.2-1.0) mg/dl Direct Bilirubin 0.1 (0-0.2) mg/dl AST 9 L (13-39) U/L ALT 4 L (7-52) U/L Alkaline Phosphatase 145 H (34-104) U/L Albumin 2.7 L (3.4-5.0) gm/dl Urine 02/28/22 Range/Units 12:46 Urine Color Yellow Urine Appearance Cloudy A (Clear) Urine pH 5.0 (4.5-7.5) Ur Specific [place] 1.008 (1.000-1.030) Urine Protein 1+ H (Negative) Urine Glucose (UA) 1+ H (Negative) Diagnostic Findings KUB X-Ray 02/28/22 12:01 XR KUB/Abdomen 1 view CLINICAL HISTORY: nv. COMPARISON STUDY: No previous studies for comparison. TECHNIQUE: Multiple supine images were obtained of the 4 quadrants of the abdomen. FINDINGS: The bowel gas pattern is within normal limits without evidence for dilatation or obstruction. There is no evidence for organomegaly or gross intra-abdominal mass. No abnormal calcifications are seen along the course of the urinary tracts bilaterally. No acute osseous pathology. IMPRESSION: 1. No acute intra-abdominal abnormality. ACT 112: Negative or not required by law. Electronically signed by: Lonnie Clemente M.D. 02/28/2022 1:50 PM Tibia/Fibula X-Ray 02/28/22 12:02 XR tibia fibula LT 2V CLINICAL HISTORY: wound Comparison: None available at the time of this dictation. TECHNIQUE: 2 radiographic views of the right leg were obtained. FINDINGS: There is no evidence of an acute fracture. The alignment is anatomic. Joint spaces are well-preserved. Diffuse soft tissue swelling is seen. IMPRESSION: No focal erosion is seen to suggest osteomyelitis. Diffuse soft tissue swelling is compatible with cellulitis versus edema. ACT 112: Negative or not required by law. Electronically signed by: Loyd Arambula M.D. 02/28/2022 1:52 PM Chest X-Ray 02/28/22 13:30 SINGLE VIEW CHEST CLINICAL HISTORY: Nausea and vomiting FINDINGS: An AP, portable, upright chest radiograph is compared to study dated 09/20/2019. The cardiomediastinal silhouette is top normal for projection. There is mild bibasilar atelectasis. The lungs and pleural spaces are otherwise clear. No pneumothorax is seen. The bony thorax is grossly intact. IMPRESSION: No active disease in the chest. ACT 112: Negative or not required by law. Electronically signed by: Marvin Brumfield M.D. 02/28/2022 1:56 PM
[2022-02-28] MEDS ORDERED: KETOROLAC TROMETHAMINE 15 MG/ML VIAL IV PRN (15:46)
[2022-02-28] MEDS ORDERED: ONDANSETRON INJ 2 MG/ML 2 ML VIAL IV PRN (15:46)
[2022-02-28] MEDS ORDERED: STAT IV Infusion **Titration per Protocol STA ×2 (16:07→18:58)
[2022-02-28] MEDS ORDERED: DKA GOAL RANGE 150-250 mg/dl ONE (16:07)
[2022-02-28] MEDS ORDERED: PHARMACY GLYCEMIC MGMT CONSULT PRN ×3 (16:07→18:58)
[2022-02-28] MEDS ORDERED: PENDING D5 1/2NS+40mEq KCL IVF SCH (16:15)
[2022-02-28] MEDS ORDERED: INSULIN REGULAR 250 UNITS in SODIUM CHLORIDE 0.9% 247.5 ML IV SCH ×2 (16:15→18:58)
[2022-02-28] MEDS ORDERED: PENDING D5 1/2NS+20mEq KCL IVF SCH ×2 (16:15→18:58)
[2022-02-28] MEDS ORDERED: INSULIN ASPART PER UNIT SC SCH ×2 (16:30→18:58)
[2022-02-28] MEDS: POTASSIUM CHLORIDE / WTR 10 MEQ/100 ML PLCT IV SCH ×2 (16:30→17:26)
[2022-02-28 18:05] LABS: Calcium 7.1 mg/dl (8.5-10.1); Creatinine Clr Calc Pharmacy 136.8 ml/min; Est GFR (African American) 117.7 ml/min; Est GFR (Non-African American) 101.6 ml/min; Magnesium 1.4 mg/dl (1.7-2.4); Phosphorus 2.9 mg/dl (2.5-4.9); Potassium 5.6 mmol/L (3.5-5.1)
[2022-02-28 18:24] LABS: Ferritin 465.3 ng/ml (8-388)
[2022-02-28 18:30] LABS: Folate (Folic Acid) 13.4 ng/ml (>5.38)
[2022-02-28] MEDS ORDERED: LANTUS PER UNIT CHARGE SQ ONE (18:45)
[2022-02-28] MEDS ORDERED: VANCOMYCIN HCL 1,000 MG in SODIUM CHLORIDE 0.9% 250 ML IV SCH (18:58)
[2022-02-28] MEDS ORDERED: VANCOMYCIN CONSULT ACTIVE PRN (18:58)
[2022-02-28] MEDS ORDERED: POTASSIUM CHLORIDE 20 MEQ in NORMOSOL-R 1,000 ML IV SCH (18:58)
[2022-02-28] MEDS ORDERED: GLUCOSE 40% GEL 15 GM TUBE PO PRN (19:00)
[2022-02-28] MEDS ORDERED: GLUCAGON FOR INJ 1 MG VIAL IM PRN (19:00)
[2022-02-28] MEDS ORDERED: DEXTROSE 50% 50 ML SYRINGE IV PRN (19:00)
[2022-02-28] MEDS ORDERED: GLUCOSE 10 TAB/TUBE PO PRN (19:00)
[2022-02-28] MEDS ORDERED: VANCOMYCIN HCL 2,000 MG in SODIUM CHLORIDE 0.9% 500 ML IV ONE (20:00)
[2022-02-28 20:04] LABS: BUN Creatinine Ratio 41.7 (10-20); Calcium 7.4 mg/dl (8.5-10.1); Creatinine Clr Calc Pharmacy 124.8 ml/min; Est GFR (African American) 111.6 ml/min; Est GFR (Non-African American) 96.3 ml/min; Magnesium 1.5 mg/dl (1.7-2.4); Phosphorus 2.9 mg/dl (2.5-4.9); Potassium 3.1 mmol/L (3.5-5.1)
[2022-02-28] MEDS: INSULIN ASPART PER UNIT SC SCH ×2 (20:39→20:41)
[2022-02-28] MEDS: lisinopril 10 MG TAB PO SCH (20:41)
--- NOTE | 2022-02-28 21:27 | Pharmacy Report ---
Pharmacy PK ABX Note - Date of Service February 28, 2022 - Assessment and Plan Assessment 51 year old F admitted with left diabetic foot infection. Symptoms present for 1.5 weeks with purulent discharge. Left foot, urine, and BC pending. Patient has grown MSSA, Enterobacter and Prev otella from foot culture in the past. Plan Vancomycin * Loading dose: 2000 mg IV X 1 * Maintenance dose: 1500 mg IV every 12 hours * Regimen is predicted to achieve target AUC/TRISTON of 400-600 mg/L.hr * Random level ordered for 7/16 AM Zosyn 4.5 g IV every 8 hours (extended infusion) Pharmacy will continue to follow and will adjust dose/frequency as necessary. Thank you. Pharmacy has transitioned to AUC monitoring for vancomycin. AUC/TRISTON is the preferred PK/PD target and is associated with decreased risk of nephrotoxicity compared to traditional trough targets.
[2022-02-28] MEDS ORDERED: GADOBUTROL 65ML VIAL IV ONE (22:20)
[2022-02-28] MEDS: PIPERACILLIN/TAZOBACTAM 4.5 GM in DEXTROSE 5% 100 ML IV SCH (22:40)
[2022-02-28] MEDS: NSS + 20MEQ KCL 20 MEQ/1,000 ML BAG IV SCH (22:40)
[2022-02-28] MEDS: ACETAMINOPHEN 325 MG TAB PO PRN (22:48)
[2022-02-28 23:28] LABS: BUN Creatinine Ratio 37.8 (10-20); Calcium 7.8 mg/dl (8.5-10.1); Creatinine Clr Calc Pharmacy 121.5 ml/min; Est GFR (Non-African American) 93.1 ml/min; Magnesium 1.4 mg/dl (1.7-2.4); Phosphorus 2.6 mg/dl (2.5-4.9); Potassium 3.1 mmol/L (3.5-5.1)
[2022-03-01] MEDS ORDERED: POTASSIUM CHLORIDE CRTAB 20 MEQ TABCR PO STA (00:03)
[2022-03-01] MEDS: INSULIN ASPART PER UNIT SC SCH ×7 (00:07→23:53)
[2022-03-01] MEDS: MAGNESIUM SULFATE / D5W 1 GM/100 ML BAG IV SCH ×2 (00:37→02:33)
[2022-03-01 00:52] LABS: BUN Creatinine Ratio 39.7 (10-20); Calcium 7.4 mg/dl (8.5-10.1); Creatinine Clr Calc Pharmacy 123.1 ml/min; Est GFR (African American) 109.7 ml/min; Est GFR (Non-African American) 94.7 ml/min; Magnesium 1.4 mg/dl (1.7-2.4); Phosphorus 2.5 mg/dl (2.5-4.9); Potassium 3.3 mmol/L (3.5-5.1)
[2022-03-01] MEDS: NSS + 20MEQ KCL 20 MEQ/1,000 ML BAG IV SCH ×4 (02:33→22:08)
[2022-03-01 05:33] LABS: Hematocrit (blood only) 25.5 % (34.1-44.9); Hemoglobin 7.8 g/dl (12.0-16.0); Mean Corpuscular Hemoglobin 25.7 pg (25.0-34.0); Mean Corpuscular Hgb Conc 30.6 g/dL (32.0-36.0); Mean Corpuscular Volume 83.9 fL (80.0-100.0); Mean Platelet Volume 9.6 fL (9.4-12.3); Nucleated RBC # (auto) 0.02 K/uL (0-0); Nucleated RBC % (auto) 0.1 %; Platelet Count 568 K/uL (130-400); RDW Coefficient of Variation 15.8 % (11.5-14.5); Red Blood Count 3.04 M/uL (3.93-5.22)
[2022-03-01 05:34] LABS: Albumin Globulin Ratio 0.5 (0.9-2); Albumin Level 2.1 gm/dl (3.4-5.0); BUN Creatinine Ratio 36.6 (10-20); Bilirubin Direct 0.1 mg/dl (0-0.2); Bilirubin,Total 0.3 mg/dl (0.2-1.0); Calcium 7.1 mg/dl (8.5-10.1); Creatinine Clr Calc Pharmacy 109.6 ml/min; Est GFR (African American) 95.4 ml/min; Est GFR (Non-African American) 82.3 ml/min; Globulin 3.9 gm/dl (2.5-4.0); Magnesium 1.8 mg/dl (1.7-2.4); Phosphorus 2.8 mg/dl (2.5-4.9); Potassium 3.4 mmol/L (3.5-5.1)
[2022-03-01] MEDS: PIPERACILLIN/TAZOBACTAM 4.5 GM in DEXTROSE 5% 100 ML IV SCH ×3 (05:49→21:09)
[2022-03-01] MEDS: MoRPHine SULFATE 4 MG/ML 1 ML CARP\\VIAL IV PRN (06:11)
[2022-03-01 06:47] LABS: Estimated Average Glucose 326 mg/dl
[2022-03-01] MEDS: ENOXAPARIN INJ 40 MG/0.4 ML SYR SQ SCH (08:23)
[2022-03-01] MEDS: ADVANCED PROBIOTIC 1250 MG CAPSULE PO SCH (08:24)
[2022-03-01] MEDS: lisinopril 10 MG TAB PO SCH (08:24)
--- NOTE | 2022-03-01 08:29 | Magnetic Resonance Report ---
MR foot LT wo/w con HISTORY: Left foot wound with infection. Assess for osteomyelitis. TECHNIQUE: Multiplanar multisequence MRI of the left forefoot was performed both before and after the intravenous administration of 11.5 cc of Gadavist contrast. COMPARISON STUDY: Left foot MRI 10/07/2019. FINDINGS: Extensive subcutaneous edema/swelling of the forefoot. This may represent a cellulitis. Thi s is most pronounced at the first and second toes. No cortical destruction or abnormal marrow signal to suggest an osteomyelitis. No peripheral enhancing fluid collections to suggest an abscess. No frac ture or dislocation. Edema within the plantar muscles could represent denervation injury. IMPRESSION: 1. Extensive soft tissue swelling/edema within the left forefoot. 2. No evidence for osteomyelitis. 3. No drainable fluid collections identified. ACT 112: Negative or not required by law. Electronically signed by: Tee Huerta M.D. 03/01/2022 8:28 AM
[2022-03-01 09:11] LABS: BUN Creatinine Ratio 36.1 (10-20); Calcium 7.4 mg/dl (8.5-10.1); Creatinine Clr Calc Pharmacy 108.3 ml/min; Est GFR (Non-African American) 81.1 ml/min; Magnesium 1.8 mg/dl (1.7-2.4); Phosphorus 2.7 mg/dl (2.5-4.9); Potassium 3.5 mmol/L (3.5-5.1)
[2022-03-01] MEDS: VANCOMYCIN HCL 1,500 MG in SODIUM CHLORIDE 0.9% 500 ML IV SCH ×2 (10:19→23:48)
[2022-03-01] MEDS: ACETAMINOPHEN 325 MG TAB PO PRN ×2 (10:21→18:05)
[2022-03-01] MEDS: CARBOHYDRATES FOR HYPOGLYCEMIA PO PRN ×3 (11:39→12:15)
[2022-03-01 13:27] LABS: BUN Creatinine Ratio 32.9 (10-20); Calcium 7.6 mg/dl (8.5-10.1); Creatinine Clr Calc Pharmacy 109.6 ml/min; Est GFR (African American) 95.4 ml/min; Est GFR (Non-African American) 82.3 ml/min; Magnesium 1.7 mg/dl (1.7-2.4); Phosphorus 2.4 mg/dl (2.5-4.9); Potassium 3.6 mmol/L (3.5-5.1)
--- NOTE | 2022-03-01 13:43 | Pharmacy Report ---
Pharmacy Glycemic Short Note 2 - Date of Service March 01, 2022 - Glycemic Short BSG Results (Last 24 hours): 02/28/22 02/28/22 02/28/22 14:11 17:25 18:09 Glucose 236 H POC Glucose 251 H 229 H 02/28/22 02/28/22 03/01/22 19:17 22:49 00:05 Glucose 231 H 74 POC Glucose 88 03/01/22 03/01/22 03/01/22 00:19 01:00 03:42 Glucose 54 L POC Glucose 81 103 H 03/01/22 03/01/22 03/01/22 04:38 04:43 05:26 Glucose 83 POC Glucose 86 110 H 03/01/22 03/01/22 03/01/22 07:26 08:27 11:33 Glucose 81 POC Glucose 88 66 L* 03/01/22 03/01/22 03/01/22 11:34 11:54 12:14 Glucose POC Glucose 59 L* 66 L* 63 L* 03/01/22 03/01/22 12:20 12:37 Glucose 74 POC Glucose 79 OUTPATIENT ANTIDIABETIC REGIMEN: * Lantus 50 units SQ BID * Semaglutide 3 mg PO QAM ASSESSMENT: * 51 y/o F admitted for mild DKA. Patient has history of Type 2 diabetes managed on basal insulin and oral Semaglutide at home. She had not been taking her anti-diabetic meds for past 4 days. * Basal insulin 100 units (total of her home basal dose) was given last night since she was deficient from not taking her insulin at home. * She had a hypoglycemic event (BSG =54 mg/dl) at around midnight. * Fasting BSG was 83 mg/dl. Novolog parameters loosened this AM, patient received 3 units of Novolog at breakfast * Pre-lunch BSG trended down again to 59 mg/dl. So carb ratio, loosened further for tonight. * Basal Lantus dose decreased by 50-70% at HS and a scale is ordered based on BSG. PLAN FOR INPATIENT GLYCEMIC CONTROL: * Hold outpatient oral diabetes medications * Basal insulin * Lantus 30-50 units based on BSG SQ at HS * Bolus insulin * NovoLog per scale ACHS or Q6hrs while NPO * Goal Range: Low 110 mg/dL - High 140 mg/dL * Correction Factor: 15 mg/dL/unit * Nutritional / Prandial insulin per carb ratio of 1 unit per 10 grams CHO consumed
--- NOTE | 2022-03-01 18:22 | Hospitalist Progress Note ---
Date of Service March 01, 2022 Assessment & Plan (1) DKA (diabetic ketoacidosis): (2) Diabetic foot infection: (3) UTI (urinary tract infection): (4) Type 2 diabetes mellitus, with long-term current use of insulin: (5) Hypokalemia: Plan DKA with h/o IDDM -due to noncompliance to insulin and acute infection. -was on insulin drip and now transitioned to basal/bolus insulin, managed by pharmacy Left diabetic foot infection with ascending cellulitis left leg -appears to have abscess on left lateral leg which has burst and is draining purulent fluid -Orthopedic surgery consulted -continue vancomycin and zosyn Sacral cellulitis Concern for perirectal abscess -Will obtain CT pelvis with contrast -Already on antibiotics as above UTI- UA concerning for UTI. Continue zosyn pending urine culture results. Hypokalemia Hypophosphatemia -replete PRN Thrombocytosis- -likely reactive, improving Normocytic Anemia -B12, folate normal -Iron low--start oral iron HTN- on lisinopril-HCTZ at home. Resume lisinopril, HCTZ held on admission--will resume DVT ppx- sc lovenox Admission and Anticipated Discharge Date Admission Date: February 28, 2022 Subjective No issues overnight Remains afebrile Evaluated by wound nurse and noted to have wounds on her left foot and left linares, also with wounds on her buttock area--Patient reports pain at these sites Physical Exam Physical Exam: Obese, no acute distress, non toxic Respiratory: Breathing comfortably, no wheezing/rhonchi/rales Cardiovascular: Regular rate and rhythm, no murmurs/rubs/gallops Gastrointestinal (Abdomen): soft, obese Musculoskeletal: bilateral leg swelling Skin: Bilateral leg erythema, left lateral lower extremity with purulent discharge. Skin on buttock examined and also with purulent pocket surrounded by erythema Results & Data Results & Data ([facility]) Vital Signs (Past 12 Hours) Vital Signs Temp Pulse Resp BP Pulse Ox O2 Del Method 03/01/22 15:28 36.7 C 67 19 145/68 H 98 Room Air 03/01/22 11:48 36.5 C 73 19 144/72 H 99 Room Air 03/01/22 08:20 36.6 C 64 18 104/61 99 Room Air Laboratory Results Short CBC 03/01/22 Range/Units 04:38 WBC 19.20 H D (4.8-10.8) K/ul Hgb 7.8 L (12.0-16.0) g/dl Hct 25.5 L (34.1-44.9) % Plt Count 568 H (130-400) K/uL BMP 02/28/22 02/28/22 03/01/22 19:17 22:49 00:19 Sodium 136 139 138 Potassium 3.1 L D 3.1 L 3.3 L Chloride 97 L 98 99 Carbon Dioxide 26 28 27 BUN 30 H 28 H 29 H Creatinine 0.72 0.74 0.73 Glucose 231 H 74 54 L Calcium 7.4 L 7.8 L 7.4 L 03/01/22 03/01/22 03/01/22 04:38 08:27 12:20 Sodium 137 137 138 Potassium 3.4 L 3.5 3.6 Chloride 100 100 100 Carbon Dioxide 25 26 26 BUN 30 H 30 H 27 H Creatinine 0.82 0.83 0.82 Glucose 83 81 74 Calcium 7.1 L 7.4 L 7.6 L Liver Function 03/01/22 Range/Units 04:38 Total Bilirubin 0.3 (0.2-1.0) mg/dl Direct Bilirubin 0.1 (0-0.2) mg/dl AST 8 L (13-39) U/L ALT 4 L (7-52) U/L Alkaline Phosphatase 102 (34-104) U/L Albumin 2.1 L (3.4-5.0) gm/dl Medications Administered Current Inpatient Medications Acetaminophen (Acetaminophen 325 Mg Tab) 650 mg PO Q6H PRN PRN Reason: headache Stop: 03/30/22 15:45 Last Admin: 03/01/22 18:05 Dose: 650 mg Dextrose (Dextrose 50% 50 Ml Syringe) 25 - 50 ml IV UD PRN; Protocol PRN Reason: Hypoglycemia Protocol Stop: 03/30/22 18:59 Enoxaparin Sodium (Enoxaparin Inj 40 Mg/0.4 Ml Syr) 40 mg SQ QAM MOHAMUD Stop: 03/31/22 08:59 Last Admin: 03/01/22 08:23 Dose: 40 mg Glucagon (Glucagon For Inj 1 Mg Vial) 1 mg IM UD PRN; Protocol PRN Reason: Hypoglycemia Protocol Stop: 03/30/22 18:59 Glucose (Glucose 40% Gel 15 Gm Tube) 15 - 30 gm PO UD PRN; Protocol PRN Reason: Hypoglycemia Protocol Stop: 03/30/22 18:59 Glucose (Glucose 10 Tab/Tube) 4 - 8 tab PO UD PRN; Protocol PRN Reason: Hypoglycemia Protocol Stop: 03/30/22 18:59 Potassium Chloride/Sodium Chloride (Normal Saline W/20 Meq Kcl) 20 meq in 1,000 mls @ 125 mls/hr IV .Q8H MOHAMUD Stop: 03/30/22 16:29 Last Admin: 03/01/22 14:03 Dose: 125 mls/hr Vancomycin HCl 1,500 mg/ (Sodium Chloride) 530 mls @ 200 mls/hr IV Q12H MOHAMUD; Protocol Stop: 03/07/22 19:59 Last Infusion: 03/01/22 13:49 Dose: Infused Piperacillin Sod/Tazobactam (Sod 4.5 gm/ Dextrose) 120 mls @ 30 mls/hr IV Q8H MOHAMUD; Protocol Stop: 03/07/22 14:59 Last Infusion: 03/01/22 18:05 Dose: Infused Insulin Aspart (Insulin Aspart Per Unit) 0 units SC ACHS [facility] Stop: 03/30/22 18:44 Last Admin: 03/01/22 17:06 Dose: Not Given Insulin Glargine (Lantus Per Unit Charge) 0 units SQ HS MOHAMUD; Protocol Stop: 03/31/22 20:59 Lactobacillus Acidophilus (Advanced Probiotic 1250 Mg Capsule) 2 cap PO DAILY MOHAMUD Stop: 03/31/22 08:59 Last Admin: 03/01/22 08:24 Dose: 2 cap Lisinopril (Lisinopril 10 Mg Tab) 10 mg PO QAM [facility] Stop: 03/30/22 19:29 Last Admin: 03/01/22 08:24 Dose: 10 mg Miscellaneous (Carbohydrates For Hypoglycemia ) 15 - 30 gm PO UD PRN PRN Reason: Hypoglycemia Treatment Stop: 03/30/22 18:59 Last Admin: 03/01/22 12:15 Dose: 15 gm Miscellaneous Information (Pharmacy Glycemic Mgmt Consult) 1 each N/A UD PRN PRN Reason: Consult Stop: 03/30/22 16:06 Miscellaneous Information (Vancomycin Consult Active) 1 each N/A UD PRN PRN Reason: Consult Stop: 03/30/22 18:57 Morphine Sulfate (Morphine Sulfate 4 Mg/Ml 1 Ml Carp\Vial) 3 mg IV Q4H PRN PRN Reason: Pain Stop: 03/15/22 06:04 Last Admin: 03/01/22 06:11 Dose: 3 mg Ondansetron HCl (Ondansetron Inj 2 Mg/Ml 2 Ml Vial) 4 mg IV Q4H PRN PRN Reason: Nausea Stop: 03/30/22 15:45
[2022-03-01] MEDS ORDERED: LANTUS PER UNIT CHARGE SQ SCH (21:00)
[2022-03-01] MEDS: POT PHOSPHATE MONOBASIC W/ SOD TAB PO SCH (21:09)
[2022-03-02] MEDS: INSULIN ASPART PER UNIT SC SCH ×5 (04:50→20:35)
[2022-03-02 05:50] LABS: Basophils # (auto) 0.03 K/uL (0-0.2); Basophils % (auto) 0.2 %; Eosinophils # (auto) 0.06 K/uL (0-0.50); Eosinophils % (auto) 0.4 %; Hematocrit (blood only) 25.4 % (34.1-44.9); Hemoglobin 7.7 g/dl (12.0-16.0); Immature Granulocytes # (auto) 0.31 K/uL (0.00-0.02); Immature Granulocytes % (auto) 2.2 %; Lymphocytes # (auto) 1.97 K/uL (1.2-3.4); Lymphocytes % (auto) 14.1 %; Mean Corpuscular Hemoglobin 25.6 pg (25.0-34.0); Mean Corpuscular Hgb Conc 30.3 g/dL (32.0-36.0); Mean Corpuscular Volume 84.4 fL (80.0-100.0); Mean Platelet Volume 9.3 fL (9.4-12.3); Monocytes # (auto) 0.81 K/uL (0.24-0.82); Monocytes % (auto) 5.8 %; Neutrophils # (auto) 10.75 K/uL (1.4-6.5); Neutrophils % (auto) 77.3 %; Platelet Count 525 K/uL (130-400); RDW Standard Deviation 49.5 fL (36.4-46.3); Red Blood Count 3.01 M/uL (3.93-5.22); White Blood Count 13.93 K/ul (4.8-10.8)
[2022-03-02] MEDS: PIPERACILLIN/TAZOBACTAM 4.5 GM in DEXTROSE 5% 100 ML IV SCH ×3 (06:00→23:27)
[2022-03-02] MEDS: NSS + 20MEQ KCL 20 MEQ/1,000 ML BAG IV SCH ×2 (06:00→14:29)
[2022-03-02 06:19] LABS: Hypochromasia Present
[2022-03-02 06:37] LABS: BUN Creatinine Ratio 32.4 (10-20); Calcium 7.1 mg/dl (8.5-10.1); Creatinine Clr Calc Pharmacy 121.5 ml/min; Est GFR (Non-African American) 93.1 ml/min; Magnesium 1.5 mg/dl (1.7-2.4); Phosphorus 2.5 mg/dl (2.5-4.9)
[2022-03-02] MEDS: MoRPHine SULFATE 4 MG/ML 1 ML CARP\\VIAL IV PRN ×2 (08:10→17:23)
[2022-03-02] MEDS: MAGNESIUM SULFATE / D5W 1 GM/100 ML BAG IV SCH ×2 (08:11→10:14)
[2022-03-02] MEDS: ENOXAPARIN INJ 40 MG/0.4 ML SYR SQ SCH (08:12)
[2022-03-02] MEDS: hydroCHLOROthiazide 25 MG TAB PO SCH (08:12)
[2022-03-02] MEDS: FERROUS SULFATE 325 MG TAB PO SCH ×2 (08:12→17:24)
[2022-03-02] MEDS: ADVANCED PROBIOTIC 1250 MG CAPSULE PO SCH (08:13)
[2022-03-02] MEDS: POT PHOSPHATE MONOBASIC W/ SOD TAB PO SCH ×4 (08:13→20:31)
[2022-03-02] MEDS: lisinopril 10 MG TAB PO SCH (08:13)
--- NOTE | 2022-03-02 08:52 | Pharmacy Report ---
Pharmacy PK ABX Note - Date of Service March 02, 2022 - Assessment and Plan Assessment 51 year old F admitted with left diabetic foot infection. Symptoms present for 1.5 weeks with purulent discharge. Left foot, urine, and BC pending. Patient has grown MSSA, Enterobacter and Prev otella from foot culture in the past. Plan Vancomycin * Maintenance dose: 1250 mg IV every 12 hours * Regimen is predicted to achieve target AUC/TRISTON of 400-600 mg/L.hr * Random level ordered for 03/04 AM Zosyn 4.5 g IV every 8 hours (extended infusion) Pharmacy will continue to follow and will adjust dose/frequency as necessary. Thank you. Pharmacy has transitioned to AUC monitoring for vancomycin. AUC/TRISTON is the preferred PK/PD target and is associated with decreased risk of nephrotoxicity compared to traditional trough targets.
[2022-03-02] MEDS ORDERED: LANTUS PER UNIT CHARGE SQ SCH ×3 (09:00→21:00)
[2022-03-02] MEDS ORDERED: VANCOMYCIN LEVEL ONE (09:00)
[2022-03-02] MEDS ORDERED: OPTIRAY 320 100ml IV ONE (09:10)
--- NOTE | 2022-03-02 09:42 | CT Scan Report ---
CT pelvis w/IV con only HISTORY: Sacral cellulitis. evaluate for perirectal abscess TECHNIQUE: Multiaxial CT images of the pelvis were performed following the intravenous administration of contrast. Sagittal and coronal reformations were performed at the workstation by the radiologist. COMPARISON STUDY: None. FINDINGS: No fractures within the visualized osseous structures. No destructive changes identified to suggest an osteomyelitis. The there is moderate diffuse body wall edema. This is most pronounced wit hin the left hip/thigh. There is associated mild skin thickening within the pelvis and hips. Punctate foci of subcutaneous gas within the left lower quadrant abdominal wall is likely due to prior medica tion injection. Mild presacral edema is noted. No loculated fluid collections to suggest an abscess. Specifically, no evidence for a perirectal abscess. Mild bladder wall thickening. The uterus and bila teral adnexa are unremarkable. No pelvic free fluid. The visualized loops of bowel show no wall thick ening or obstruction. A few colonic diverticula. No evidence for acute diverticulitis. Normal appendi x. There is left inguinal lymphadenopathy. Dominant left inguinal lymph node measures 4.0 x 2.4 cm. T he major vascular structures within the pelvis appear patent. IMPRESSION: 1. Diffuse body wall edema with associated skin thickening. This most pronounced within the left hip/ thigh. This likely represents anasarca. A left hip/thigh cellulitis should also be considered in the differential diagnosis. 2. Left inguinal lymphadenopathy. This is likely reactive. 3. No loculated fluid collections to suggest an abscess. Specifically, no evidence for a perirectal a bscess. 4. Mild bladder wall thickening. This may represent a cystitis. 5. No evidence for osteomyelitis. ACT 112: Negative or not required by law. Electronically signed by: Tee Huerta M.D. 03/02/2022 9:40 AM
[2022-03-02] MEDS: VANCOMYCIN HCL 1,250 MG in SODIUM CHLORIDE 0.9% 250 ML IV SCH ×2 (10:14→23:29)
--- NOTE | 2022-03-02 10:34 | Pharmacy Report ---
Pharmacy Glycemic Short Note 2 - Date of Service March 02, 2022 - Glycemic Short BSG Results (Last 24 hours): 03/01/22 03/01/22 03/01/22 11:33 11:34 11:54 Glucose POC Glucose 66 L* 59 L* 66 L* 03/01/22 03/01/22 03/01/22 12:14 12:20 12:37 Glucose 74 POC Glucose 63 L* 79 03/01/22 03/01/22 03/01/22 16:43 20:14 22:20 Glucose POC Glucose 83 95 87 03/01/22 03/02/22 03/02/22 23:43 01:13 04:32 Glucose POC Glucose 72 114 H 73 03/02/22 03/02/22 05:31 06:59 Glucose 94 POC Glucose 102 H OUTPATIENT ANTIDIABETIC REGIMEN: * Lantus 50 units SQ BID * Semaglutide 3 mg PO QAM ASSESSMENT: 03/02/22 * BSGs yesterday were 88-59/66-83-85 and overnight were 72-114 mg/dL. Patient received NO INSULIN yesterday. * Fasting today is 102 mg/dL. * Per hospitalization from 2019, patient requires Lantus 45 units qAM and Novolog CF 15 CR 5. * Due to lower fasting, will give Lantus 25 units now then additional 20 units at lunch if BSG continues to trend upwards. * Start Novolog as above. BASELINE * 51 y/o F admitted for mild DKA. Patient has history of Type 2 diabetes managed on basal insulin and oral Semaglutide at home. She had not been taking her anti-diabetic meds for past 4 days. * Basal insulin 100 units (total of her home basal dose) was given last night since she was deficient from not taking her insulin at home. * She had a hypoglycemic event (BSG =54 mg/dl) at around midnight. * Fasting BSG was 83 mg/dl. Novolog parameters loosened this AM, patient received 3 units of Novolog at breakfast * Pre-lunch BSG trended down again to 59 mg/dl. So carb ratio, loosened further for tonight. * Basal Lantus dose decreased by 50-70% at HS and a scale is ordered based on BSG. PLAN FOR INPATIENT GLYCEMIC CONTROL: * Hold outpatient oral diabetes medications * Basal insulin * Lantus 25 units SQ x 1 then 20 units at lunch if BSG trending upwards * Bolus insulin * NovoLog per scale ACHS or Q6hrs while NPO * Goal Range: Low 110 mg/dL - High 140 mg/dL * Correction Factor: 15 mg/dL/unit * Nutritional / Prandial insulin per carb ratio of 1 unit per 5 grams CHO consumed
--- NOTE | 2022-03-02 10:50 | Orthopedic Consultation ---
Date of Consultation March 02, 2022 Assessment & Plan (1) Diabetic foot infection: She has a hard, thick callus on the plantar aspect of her left foot. She likely had a crack in this callus, allowing spread of soft tissue infection and development of cellulitis through her left lower leg. No evidence of abscess or osteomyelitis requiring surgical intervention. Antibiotics for her cellulitis per medicine. I would very highly recommend that she see a director supplier quality after discharge for regular debridement/shaving of her callus to prevent further cracks in the callus that could cause future infections. I also counseled her on maintaining good glucose control to prevent future infections that could lead to limb amputations. She does not require urgent orthopedic intervention or follow-up at this time. Orthopedics will sign off. Please call with questions. History of Present Illness Reason for Consultation: Left foot wound Attending Physician: Tevin Sexton MD History of Present Illness Ms. Rand is a 51-year old female with poorly controlled diabetes who reports a progressively worsening wound on the plantar aspect of her left foot over the past 2 to 3 weeks. She is says that she normally has fairly large and thick calluses on her feet, but she does not have an established director supplier quality. She had some drainage from this left foot wound, then had progressively worsening pain, swelling, and redness extending up her left lower leg. She says that recently she got quite ill and was hesitant to take her normal diabetic medications. She was admitted with diabetic ketoacidosis. Allergies Allergy/AdvReac Type Severity Reaction Status Date / Time No Known Allergies Allergy Unknown Verified 12/31/19 09:41 Home Medications Medication Instructions Recorded Confirmed Type Lactobacillus acidoph-L.bulgaricus 1 tab PO BID #60 tabs 10/10/19 01/07/20 Rx 1 million cell chewable tablet (Lactinex) lisinopril 10 1 tab PO QAM 11/01/19 02/28/22 History mg-hydrochlorothiazide 12.5 mg tablet aspirin 81 mg tablet,delayed 81 mg PO QAM 02/28/22 02/28/22 History release (Adult Aspirin Regimen) insulin glargine 100 unit/mL (3 50 unit subcut BID 02/28/22 02/28/22 History mL) subcutaneous pen (Lantus Solostar U-100 Insulin) semaglutide 3 mg tablet (Rybelsus) 0 mg PO QAM 02/28/22 02/28/22 History Patient History Medical History Back pain Depression with anxiety Diabetes type 2, uncontrolled Diabetic peripheral neuropathy associated with type 2 diabetes mellitus Dysfunctional uterine bleeding Dyslipidemia Fatigue Hirsutism History of DVT (deep vein thrombosis) HTN (hypertension) Insomnia Loss of protective sensation of skin of foot Obesity Personal history of diabetic foot ulcer Tobacco use Type 2 diabetes mellitus with complications Type 2 diabetes mellitus, with long-term current use of insulin Varicose veins of both lower extremities Vitamin D deficiency Xerosis cutis Surgical History H/O tooth extraction History of History of cholecystectomy History of endometrial ablation History of facial surgery History of hysterectomy History of incision and drainage left foot by Dr. Haq on 10-03-19. 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 No open wounds. No active or expressible drainage. No significant surrounding erythema or swelling directly around this wound. She does have some relatively mild erythema and edema extending up her left lower leg. Results & Data ([facility]) Vital Signs (Past 12 Hours) Vital Signs Temp Pulse Pulse Resp BP Pulse Ox O2 Del Method 03/02/22 08:00 72 03/02/22 07:04 36.9 C 72 17 156/76 H 99 Room Air 03/02/22 02:41 36.6 C 71 18 140/76 98 Room Air 03/01/22 23:00 36.9 C 70 16 135/78 96 Laboratory Results WBC 29.7, ESR >130, CRP 25.3, HgbA1c 13.0 ([address]) Diagnostic Findings Left foot MRI was reviewed. It shows subcutaneous edema in the plantar aspect of the foot consistent with cellulitis. No evidence of abscess or osteomyelit is.
--- NOTE | 2022-03-02 12:19 | Hospitalist Progress Note ---
Date of Service March 02, 2022 Assessment & Plan (1) DKA (diabetic ketoacidosis): (2) Diabetic foot infection: (3) UTI (urinary tract infection): (4) Type 2 diabetes mellitus, with long-term current use of insulin: (5) Hypokalemia: Plan DKA with h/o IDDM -due to noncompliance to insulin and acute infection. -was on insulin drip and now transitioned to basal/bolus insulin, managed by pharmacy Left diabetic foot infection with ascending cellulitis left leg -appears to have abscess on left lateral leg which has burst and is draining purulent fluid -Orthopedic surgery consulted, appreciate input -continue vancomycin and zosyn. Will ask for ID consult on Friday to determine antibiotic for discharge planning Sacral cellulitis Concern for perirectal abscess -CT pelvis negative for perirectal abscess, shows swelling consistent with known cellulitis -continue antibiotics as above Pansensitive E coli UTI -already on antibiotics for above Hypokalemia Hypophosphatemia -replete PRN Thrombocytosis- -likely reactive, improving Normocytic Anemia -B12, folate normal -Iron low--started oral iron HTN- - on lisinopril-HCTZ continued here DVT ppx- sc lovenox Disposition -will ask for PT/OT evaluation for discharge planning Admission and Anticipated Discharge Date Admission Date: February 28, 2022 Subjective Feels better. Glucose better controlled. Remains afebrile. Tolerating diet Physical Exam Physical Exam: Appears weak, laying in bed, non toxic, appears chronically ill ENMT: normocephalic, atraumatic, mucous membrane moist Neck: thick Respiratory: breathing comfortably on room air, no wheezing/rhonchi/rales Cardiovascular: regular rate and rhythm, no murmurs/rubs/gallops Gastrointestinal (Abdomen): soft, non tender, non distended Musculoskeletal: bilateral lower extremity swelling Skin: left lower extremity redness with purulent drainage, known sacral redness/ulceration both present on admission Neurologic: awake, alert, generalized weakness but moving extremities spontaneously Results & Data Results & Data ([facility]) Vital Signs (Past 12 Hours) Vital Signs Temp Pulse Pulse Resp BP Pulse Ox O2 Del Method 03/02/22 11:15 37.4 C 71 18 144/71 H 97 Room Air 03/02/22 08:00 72 03/02/22 07:04 36.9 C 72 17 156/76 H 99 Room Air 03/02/22 02:41 36.6 C 71 18 140/76 98 Room Air Laboratory Results Short CBC 03/02/22 Range/Units 05:31 WBC 13.93 H (4.8-10.8) K/ul Hgb 7.7 L (12.0-16.0) g/dl Hct 25.4 L (34.1-44.9) % Plt Count 525 H (130-400) K/uL BMP 03/01/22 03/02/22 12:20 05:31 Sodium 138 138 Potassium 3.6 4.0 Chloride 100 105 Carbon Dioxide 26 25 BUN 27 H 24 H Creatinine 0.82 0.74 Glucose 74 94 Calcium 7.6 L 7.1 L Medications Administered Current Inpatient Medications Acetaminophen (Acetaminophen 325 Mg Tab) 650 mg PO Q6H PRN PRN Reason: headache Stop: 03/30/22 15:45 Last Admin: 03/01/22 18:05 Dose: 650 mg Dextrose (Dextrose 50% 50 Ml Syringe) 25 - 50 ml IV UD PRN; Protocol PRN Reason: Hypoglycemia Protocol Stop: 03/30/22 18:59 Enoxaparin Sodium (Enoxaparin Inj 40 Mg/0.4 Ml Syr) 40 mg SQ QAM [facility] Stop: 03/31/22 08:59 Last Admin: 03/02/22 08:12 Dose: 40 mg Ferrous Sulfate (Ferrous Sulfate 325 Mg Tab) 325 mg PO BIDM [facility] Stop: 04/01/22 07:59 Last Admin: 03/02/22 08:12 Dose: 325 mg Glucagon (Glucagon For Inj 1 Mg Vial) 1 mg IM UD PRN; Protocol PRN Reason: Hypoglycemia Protocol Stop: 03/30/22 18:59 Glucose (Glucose 40% Gel 15 Gm Tube) 15 - 30 gm PO UD PRN; Protocol PRN Reason: Hypoglycemia Protocol Stop: 03/30/22 18:59 Glucose (Glucose 10 Tab/Tube) 4 - 8 tab PO UD PRN; Protocol PRN Reason: Hypoglycemia Protocol Stop: 03/30/22 18:59 Hydrochlorothiazide (Hydrochlorothiazide 25 Mg Tab) 12.5 mg PO QAM [facility] Stop: 04/01/22 08:59 Last Admin: 03/02/22 08:12 Dose: 12.5 mg Potassium Chloride/Sodium Chloride (Normal Saline W/20 Meq Kcl) 20 meq in 1,000 mls @ 125 mls/hr IV .Q8H [facility] Stop: 03/30/22 16:29 Last Admin: 03/02/22 06:00 Dose: 125 mls/hr Piperacillin Sod/Tazobactam (Sod 4.5 gm/ Dextrose) 120 mls @ 30 mls/hr IV Q8H [facility]; Protocol Stop: 03/07/22 14:59 Last Infusion: 03/02/22 10:14 Dose: Infused Vancomycin HCl 1,250 mg/ (Sodium Chloride) 275 mls @ 200 mls/hr IV Q12H [facility]; Protocol Stop: 03/09/22 09:59 Last Infusion: 03/02/22 12:11 Dose: Infused Insulin Aspart (Insulin Aspart Per Unit) 0 units SC ACHS [facility] Stop: 03/30/22 18:44 Last Admin: 03/02/22 12:15 Dose: 6 units Insulin Glargine (Lantus Per Unit Charge) 25 units SQ QAM [facility] Stop: 04/01/22 08:59 Last Admin: 03/02/22 08:18 Dose: 25 units Insulin Glargine (Lantus Per Unit Charge) 0 units SQ HS [facility]; Protocol Stop: 03/02/22 21:01 Lactobacillus Acidophilus (Advanced Probiotic 1250 Mg Capsule) 2 cap PO DAILY [facility] Stop: 03/31/22 08:59 Last Admin: 03/02/22 08:13 Dose: 2 cap Lisinopril (Lisinopril 10 Mg Tab) 10 mg PO QAM [facility] Stop: 03/30/22 19:29 Last Admin: 03/02/22 08:13 Dose: 10 mg Miscellaneous (Carbohydrates For Hypoglycemia ) 15 - 30 gm PO UD PRN PRN Reason: Hypoglycemia Treatment Stop: 03/30/22 18:59 Last Admin: 03/01/22 12:15 Dose: 15 gm Miscellaneous Information (Pharmacy Glycemic Mgmt Consult) 1 each N/A UD PRN PRN Reason: Consult Stop: 03/30/22 16:06 Miscellaneous Information (Vancomycin Consult Active) 1 each N/A UD PRN PRN Reason: Consult Stop: 03/30/22 18:57 Morphine Sulfate (Morphine Sulfate 4 Mg/Ml 1 Ml Carp\Vial) 3 mg IV Q4H PRN PRN Reason: Pain Stop: 03/15/22 06:04 Last Admin: 03/02/22 08:10 Dose: 3 mg Ondansetron HCl (Ondansetron Inj 2 Mg/Ml 2 Ml Vial) 4 mg IV Q4H PRN PRN Reason: Nausea Stop: 03/30/22 15:45 Potassium Phosphate (Pot Phosphate Monobasic W/ Sod Tab) 1 tab PO QID [facility] Stop: 03/04/22 20:59 Last Admin: 03/02/22 12:16 Dose: 1 tab
[2022-03-02] MEDS: ACETAMINOPHEN 325 MG TAB PO PRN (12:22)
[2022-03-02] MEDS: NYSTATIN POWDER 15GM BTL EXT SCH (20:36)
[2022-03-03] MEDS: MoRPHine SULFATE 4 MG/ML 1 ML CARP\\VIAL IV PRN ×4 (00:31→23:31)
[2022-03-03] MEDS: PIPERACILLIN/TAZOBACTAM 4.5 GM in DEXTROSE 5% 100 ML IV SCH (01:00)
[2022-03-03] MEDS ORDERED: Nursing to Pharmacy Communication SCH (06:15)
[2022-03-03 07:09] LABS: Basophils # (auto) 0.03 K/uL (0-0.2); Basophils % (auto) 0.2 %; Eosinophils # (auto) 0.07 K/uL (0-0.50); Eosinophils % (auto) 0.5 %; Hematocrit (blood only) 26.4 % (34.1-44.9); Hemoglobin 7.7 g/dl (12.0-16.0); Immature Granulocytes # (auto) 0.21 K/uL (0.00-0.02); Immature Granulocytes % (auto) 1.6 %; Lymphocytes # (auto) 1.83 K/uL (1.2-3.4); Lymphocytes % (auto) 14.1 %; Mean Corpuscular Hemoglobin 25.2 pg (25.0-34.0); Mean Corpuscular Hgb Conc 29.2 g/dL (32.0-36.0); Mean Corpuscular Volume 86.6 fL (80.0-100.0); Mean Platelet Volume 9.6 fL (9.4-12.3); Monocytes # (auto) 0.74 K/uL (0.24-0.82); Monocytes % (auto) 5.7 %; Neutrophils # (auto) 10.08 K/uL (1.4-6.5); Neutrophils % (auto) 77.9 %; Nucleated RBC # (auto) 0.02 K/uL (0-0); Nucleated RBC % (auto) 0.2 %; Platelet Count 511 K/uL (130-400); RDW Coefficient of Variation 16.3 % (11.5-14.5); RDW Standard Deviation 51.4 fL (36.4-46.3); Red Blood Count 3.05 M/uL (3.93-5.22); White Blood Count 12.96 K/ul (4.8-10.8)
[2022-03-03 07:45] LABS: RBC Morphology Unremarkable
[2022-03-03 07:47] LABS: BUN Creatinine Ratio 24.3 (10-20); Calcium 7.6 mg/dl (8.5-10.1); Creatinine Clr Calc Pharmacy 121.5 ml/min; Est GFR (Non-African American) 93.1 ml/min; Magnesium 1.7 mg/dl (1.7-2.4); Potassium 4.3 mmol/L (3.5-5.1)
[2022-03-03] MEDS ORDERED: LANTUS PER UNIT CHARGE SQ SCH (09:00)
[2022-03-03] MEDS: ADVANCED PROBIOTIC 1250 MG CAPSULE PO SCH (09:24)
[2022-03-03] MEDS: POT PHOSPHATE MONOBASIC W/ SOD TAB PO SCH ×4 (09:25→20:33)
[2022-03-03] MEDS: hydroCHLOROthiazide 25 MG TAB PO SCH (09:25)
[2022-03-03] MEDS: lisinopril 10 MG TAB PO SCH (09:25)
[2022-03-03] MEDS: ENOXAPARIN INJ 40 MG/0.4 ML SYR SQ SCH (09:25)
[2022-03-03] MEDS: FERROUS SULFATE 325 MG TAB PO SCH ×2 (09:25→18:15)
[2022-03-03] MEDS: NYSTATIN POWDER 15GM BTL EXT SCH ×2 (09:26→20:33)
[2022-03-03] MEDS: INSULIN ASPART PER UNIT SC SCH ×4 (09:33→20:42)
[2022-03-03] MEDS: ASPIRIN 81 MG ECTAB PO SCH (09:39)
[2022-03-03] MEDS: ceFAZolin 2000MG 2,000 MG/15 ML SYR IV SCH ×2 (10:29→18:15)
--- NOTE | 2022-03-03 18:38 | Hospitalist Progress Note ---
Date of Service March 03, 2022 Assessment & Plan (1) DKA (diabetic ketoacidosis): (2) Diabetic foot infection: (3) UTI (urinary tract infection): (4) Type 2 diabetes mellitus, with long-term current use of insulin: (5) Hypokalemia: Plan DKA with h/o IDDM -due to noncompliance to insulin and acute infection. -was on insulin drip and now transitioned to basal/bolus insulin, managed by pharmacy Left diabetic foot infection with ascending cellulitis left leg -appears to have abscess on left lateral leg which has burst and is draining purulent fluid -Orthopedic surgery consulted, appreciate input -Superficial culture +strep, blood cultures remains negative. Vancomycin/Zosyn- -> cefazolin today. -ID consult pending Sacral cellulitis Concern for perirectal abscess -CT pelvis negative for perirectal abscess, shows swelling consistent with known cellulitis -continue antibiotics as above Pansensitive E coli UTI -already on antibiotics for above Hypokalemia Hypophosphatemia -replete PRN Thrombocytosis- -likely reactive, improving Normocytic Anemia -B12, folate normal -Iron low--started oral iron HTN- - on lisinopril-HCTZ continued here DVT ppx- sc lovenox Disposition - PT/OT evaluation for discharge planning Admission and Anticipated Discharge Date Admission Date: February 28, 2022 Subjective Feels better. Leg redness is improved Remains afebrile Physical Exam Physical Exam: Obese, no acute distress, pleasant and comfortable Respiratory: breathing comfortably on room air, no wheezing/rhonchi Cardiovascular: regular rate and rhythm, no murmurs/rubs Gastrointestinal (Abdomen): soft, non tender Musculoskeletal: trace edema, bilateral feet with overgrown nails, thick/calloused heels Skin: thick/calloused heels, bilateral legs with very dry/scaly skin, foot ulcer and left lateral leg ulcer and sacral ulcers present on admission Neurologic: awake, alert, spontaneously moving extremities Results & Data Results & Data ([facility]) Vital Signs (Past 12 Hours) Vital Signs Temp Pulse Resp BP BP Pulse Ox O2 Del Method 03/03/22 15:44 37.1 C 86 20 144/77 H 96 Room Air 03/03/22 08:00 Room Air 03/03/22 07:49 76 18 177/82 H 97 Room Air Laboratory Results Short CBC 03/03/22 Range/Units 06:14 WBC 12.96 H (4.8-10.8) K/ul Hgb 7.7 L (12.0-16.0) g/dl Hct 26.4 L (34.1-44.9) % Plt Count 511 H (130-400) K/uL BMP 03/03/22 06:14 Sodium 138 Potassium 4.3 Chloride 104 Carbon Dioxide 27 BUN 18 Creatinine 0.74 Glucose 97 Calcium 7.6 L Medications Administered Current Inpatient Medications Acetaminophen (Acetaminophen 325 Mg Tab) 650 mg PO Q6H PRN PRN Reason: headache Stop: 03/30/22 15:45 Last Admin: 03/02/22 12:22 Dose: 650 mg Aspirin (Aspirin 81 Mg Ectab) 81 mg PO QAM COUNTS INCLUDE 234 BEDS AT [facility] Stop: 04/02/22 08:59 Last Admin: 03/03/22 09:39 Dose: 81 mg Dextrose (Dextrose 50% 50 Ml Syringe) 25 - 50 ml IV UD PRN; Protocol PRN Reason: Hypoglycemia Protocol Stop: 03/30/22 18:59 Enoxaparin Sodium (Enoxaparin Inj 40 Mg/0.4 Ml Syr) [facility] Stop: 03/31/22 08:59 Last Admin: 03/03/22 09:25 Dose: 40 mg Ferrous Sulfate (Ferrous Sulfate 325 Mg Tab) 325 mg PO BIDM COUNTS INCLUDE 234 BEDS AT THE [facility] Stop: 04/01/22 07:59 Last Admin: 03/03/22 18:15 Dose: 325 mg Glucagon (Glucagon For Inj 1 Mg Vial) 1 mg IM UD PRN; Protocol PRN Reason: Hypoglycemia Protocol Stop: 03/30/22 18:59 Glucose (Glucose 40% Gel 15 Gm Tube) 15 - 30 gm PO UD PRN; Protocol PRN Reason: Hypoglycemia Protocol Stop: 03/30/22 18:59 Glucose (Glucose 10 Tab/Tube) 4 - 8 tab PO UD PRN; Protocol PRN Reason: Hypoglycemia Protocol Stop: 03/30/22 18:59 Hydrochlorothiazide (Hydrochlorothiazide 25 Mg Tab) 12.5 mg PO QAM COUNTS INCLUDE 234 BEDS AT [facility] Stop: 04/01/22 08:59 Last Admin: 03/03/22 09:25 Dose: 12.5 mg Cefazolin Sodium (Ancef 2000mg) 2,000 mg in 15 mls @ 3.75 mls/min IV Q8H COUNTS INCLUDE 234 BEDS AT [facility] Stop: 03/10/22 09:29 Last Admin: 03/03/22 18:15 Dose: 3.75 mls/min Insulin Aspart (Insulin Aspart Per Unit) 0 units SC ACHS COUNTS INCLUDE 234 BEDS AT [facility] Stop: 03/30/22 18:44 Last Admin: 03/03/22 18:16 Dose: 10 units Insulin Glargine (Lantus Per Unit Charge) 20 units SQ QAM COUNTS INCLUDE 234 BEDS AT [facility] Stop: 04/02/22 08:59 Last Admin: 03/03/22 09:33 Dose: 20 units Insulin Glargine (Lantus Per Unit Charge) 0 units SQ HS COUNTS INCLUDE 234 BEDS AT THE [facility]; Protocol Stop: 04/02/22 20:59 Lactobacillus Acidophilus (Advanced Probiotic 1250 Mg Capsule) 2 cap PO DAILY COUNTS INCLUDE 234 BEDS AT [facility] Stop: 03/31/22 08:59 Last Admin: 03/03/22 09:24 Dose: 2 cap Lisinopril (Lisinopril 10 Mg Tab) 10 mg PO QAM COUNTS INCLUDE 234 BEDS AT [facility] Stop: 03/30/22 19:29 Last Admin: 03/03/22 09:25 Dose: 10 mg Miscellaneous (Carbohydrates For Hypoglycemia ) 15 - 30 gm PO UD PRN PRN Reason: Hypoglycemia Treatment Stop: 03/30/22 18:59 Last Admin: 03/01/22 12:15 Dose: 15 gm Miscellaneous Information (Pharmacy Glycemic Mgmt Consult) 1 each N/A UD PRN PRN Reason: Consult Stop: 03/30/22 16:06 Morphine Sulfate (Morphine Sulfate 4 Mg/Ml 1 Ml Carp\Vial) 3 mg IV Q4H PRN PRN Reason: Pain Stop: 03/15/22 06:04 Last Admin: 03/03/22 18:22 Dose: 3 mg Nystatin (Nystatin Powder 15gm Btl) 1 appln EXT BID COUNTS INCLUDE 234 BEDS AT [facility] Stop: 04/01/22 20:59 Last Admin: 03/03/22 09:26 Dose: 1 appln Ondansetron HCl (Ondansetron Inj 2 Mg/Ml 2 Ml Vial) 4 mg IV Q4H PRN PRN Reason: Nausea Stop: 03/30/22 15:45 Potassium Phosphate (Pot Phosphate Monobasic W/ Sod Tab) 1 tab PO QID COUNTS INCLUDE 234 BEDS AT [facility] Stop: 03/04/22 20:59 Last Admin: 03/03/22 18:15 Dose: 1 tab
[2022-03-03] MEDS: LANTUS PER UNIT CHARGE SQ SCH (20:42)
[2022-03-04] MEDS: ceFAZolin 2000MG 2,000 MG/15 ML SYR IV SCH ×3 (02:02→16:13)
[2022-03-04] MEDS: MoRPHine SULFATE 4 MG/ML 1 ML CARP\\VIAL IV PRN ×4 (04:44→20:22)
[2022-03-04] MEDS: hydroCHLOROthiazide 25 MG TAB PO SCH (08:06)
[2022-03-04] MEDS: POT PHOSPHATE MONOBASIC W/ SOD TAB PO SCH (08:06)
[2022-03-04] MEDS: ASPIRIN 81 MG ECTAB PO SCH (08:07)
[2022-03-04] MEDS: ENOXAPARIN INJ 40 MG/0.4 ML SYR SQ SCH (08:08)
[2022-03-04] MEDS: NYSTATIN POWDER 15GM BTL EXT SCH ×2 (08:08→20:24)
[2022-03-04] MEDS: FERROUS SULFATE 325 MG TAB PO SCH ×2 (08:08→16:11)
[2022-03-04] MEDS: ADVANCED PROBIOTIC 1250 MG CAPSULE PO SCH (08:08)
[2022-03-04] MEDS: lisinopril 10 MG TAB PO SCH (08:08)
[2022-03-04] MEDS ORDERED: LANTUS PER UNIT CHARGE SQ ONE (08:15)
[2022-03-04] MEDS: INSULIN ASPART PER UNIT SC SCH ×4 (08:37→20:56)
[2022-03-04 09:20] LABS: Basophils # (auto) 0.05 K/uL (0-0.2); Basophils % (auto) 0.4 %; Eosinophils # (auto) 0.06 K/uL (0-0.50); Eosinophils % (auto) 0.5 %; Hematocrit (blood only) 28.1 % (34.1-44.9); Hemoglobin 8.5 g/dl (12.0-16.0); Immature Granulocytes # (auto) 0.27 K/uL (0.00-0.02); Lymphocytes # (auto) 1.91 K/uL (1.2-3.4); Lymphocytes % (auto) 14.3 %; Mean Corpuscular Hemoglobin 25.5 pg (25.0-34.0); Mean Corpuscular Hgb Conc 30.2 g/dL (32.0-36.0); Mean Corpuscular Volume 84.4 fL (80.0-100.0); Mean Platelet Volume 9.3 fL (9.4-12.3); Monocytes # (auto) 0.75 K/uL (0.24-0.82); Monocytes % (auto) 5.6 %; Neutrophils # (auto) 10.29 K/uL (1.4-6.5); Neutrophils % (auto) 77.2 %; Nucleated RBC # (auto) 0.04 K/uL (0-0); Nucleated RBC % (auto) 0.3 %; Platelet Count 475 K/uL (130-400); RDW Coefficient of Variation 16.2 % (11.5-14.5); RDW Standard Deviation 50.3 fL (36.4-46.3); Red Blood Count 3.33 M/uL (3.93-5.22); White Blood Count 13.33 K/ul (4.8-10.8)
[2022-03-04] MEDS ORDERED: VANCOMYCIN LEVEL ONE (09:30)
[2022-03-04 09:39] LABS: BUN Creatinine Ratio 15.6 (10-20); Calcium 7.8 mg/dl (8.5-10.1); Creatinine Clr Calc Pharmacy 116.7 ml/min; Est GFR (African American) 102.9 ml/min; Est GFR (Non-African American) 88.8 ml/min; Magnesium 1.5 mg/dl (1.7-2.4); Phosphorus 3.3 mg/dl (2.5-4.9); Potassium 4.3 mmol/L (3.5-5.1)
[2022-03-04] MEDS: MAGNESIUM SULFATE / D5W 1 GM/100 ML BAG IV SCH ×2 (12:30→14:07)
--- NOTE | 2022-03-04 13:28 | Hospitalist Progress Note ---
Date of Service March 04, 2022 Assessment & Plan (1) DKA (diabetic ketoacidosis): (2) Diabetic foot infection: (3) UTI (urinary tract infection): (4) Type 2 diabetes mellitus, with long-term current use of insulin: (5) Hypokalemia: Plan DKA with h/o IDDM -due to noncompliance to insulin and acute infection. -was on insulin drip and now transitioned to basal/bolus insulin, managed by pharmacy Left diabetic foot infection with ascending cellulitis left leg -appears to have abscess on left lateral leg which has burst and is draining purulent fluid -Orthopedic surgery consulted, appreciate input -Superficial culture +strep, blood cultures remains negative. Vancomycin/Zosyn- -> cefazolin 03/03 -ID consult pending -podiatry consulted for foot care, nail care Sacral cellulitis -CT pelvis negative for perirectal abscess, shows swelling consistent with known cellulitis -continue antibiotics as above Pansensitive E coli UTI -already on antibiotics for above Hypokalemia Hypophosphatemia -replete PRN Thrombocytosis- -likely reactive, improving Normocytic Anemia -B12, folate normal -Iron low--started oral iron HTN- - on lisinopril-HCTZ continued here DVT ppx- sc lovenox Disposition - PT/OT evaluation for discharge planning Admission and Anticipated Discharge Date Admission Date: February 28, 2022 Subjective Remains afebrile. Feels well. No issues overnight Physical Exam Physical Exam: Obese, pleasant, no acute distress Respiratory: breathing comfortably on room air, no wheezing/rhonchi/rales Cardiovascular: regular rate and rhythm, no murmurs/rubs/gallops Gastrointestinal (Abdomen): soft, non tender Musculoskeletal: trace bilateral edema, toenails are overgrown Skin: ulcers on left foot, left lower extremity on lateral surface, sacral area--> all present on admission, bilateral feet are calloused with thickened/dry/pealing skin Neurologic: awake, alert Results & Data Results & Data ([place]) Vital Signs (Past 12 Hours) Vital Signs Temp Pulse Resp BP Pulse Ox O2 Del Method 03/04/22 08:00 Room Air 03/04/22 07:15 36.9 C 72 18 147/85 H 97 Room Air Laboratory Results Short CBC 03/04/22 Range/Units 08:47 WBC 13.33 H (4.8-10.8) K/ul Hgb 8.5 L (12.0-16.0) g/dl Hct 28.1 L (34.1-44.9) % Plt Count 475 H (130-400) K/uL [facility] 03/04/22 08:47 Sodium 138 Potassium 4.3 Chloride 102 Carbon Dioxide 31 BUN 12 Creatinine 0.77 Glucose 172 H Calcium 7.8 L Medications Administered Current Inpatient Medications Acetaminophen (Acetaminophen 325 Mg Tab) 650 mg PO Q6H PRN PRN Reason: headache Stop: 03/30/22 15:45 Last Admin: 03/02/22 12:22 Dose: 650 mg Aspirin (Aspirin 81 Mg Ectab) 81 mg PO QAM [facility] Stop: 04/02/22 08:59 Last Admin: 03/04/22 08:07 Dose: 81 mg Dextrose (Dextrose 50% 50 Ml Syringe) 25 - 50 ml IV UD PRN; Protocol PRN Reason: Hypoglycemia Protocol Stop: 03/30/22 18:59 Enoxaparin Sodium (Enoxaparin Inj 40 Mg/0.4 Ml Syr) [facility] [place] Stop: 03/31/22 08:59 Last Admin: 03/04/22 08:08 Dose: 40 mg Ferrous Sulfate (Ferrous Sulfate 325 Mg Tab) 325 mg PO BIDM [facility] Stop: 04/01/22 07:59 Last Admin: 03/04/22 08:08 Dose: 325 mg Glucagon (Glucagon For Inj 1 Mg Vial) 1 mg IM UD PRN; Protocol PRN Reason: Hypoglycemia Protocol Stop: 03/30/22 18:59 Glucose (Glucose 40% Gel 15 Gm Tube) 15 - 30 gm PO UD PRN; Protocol PRN Reason: Hypoglycemia Protocol Stop: 03/30/22 18:59 Glucose (Glucose 10 Tab/Tube) 4 - 8 tab PO UD PRN; Protocol PRN Reason: Hypoglycemia Protocol Stop: 03/30/22 18:59 Hydrochlorothiazide (Hydrochlorothiazide 25 Mg Tab) 12.5 mg PO QAM [facility] Stop: 04/01/22 08:59 Last Admin: 03/04/22 08:06 Dose: 12.5 mg Cefazolin Sodium (Ancef 2000mg) 2,000 mg in 15 mls @ 3.75 mls/min IV Q8H [facility] Stop: 03/10/22 09:29 Last Admin: 03/04/22 08:09 Dose: 3.75 mls/min Magnesium Sulfate/Dextrose (Magnesium Sulfate / D5w) 1 gm in 100 mls @ 50 mls/hr IV Q2H [facility] Stop: 03/04/22 15:44 Last Admin: 03/04/22 12:30 Dose: 50 mls/hr Insulin Aspart (Insulin Aspart Per Unit) 0 units SC ACHS [facility] Stop: 03/30/22 18:44 Last Admin: 03/04/22 12:23 Dose: 10 units Insulin Glargine (Lantus Per Unit Charge) 0 units SQ HS [facility]; Protocol Stop: 04/02/22 20:59 Last Admin: 03/03/22 20:42 Dose: 10 units Lactobacillus Acidophilus (Advanced Probiotic 1250 Mg Capsule) 2 cap PO DAILY [facility] Stop: 03/31/22 08:59 Last Admin: 03/04/22 08:08 Dose: 2 cap Lisinopril (Lisinopril 10 Mg Tab) 10 mg PO QAM [facility] Stop: 03/30/22 19:29 Last Admin: 03/04/22 08:08 Dose: 10 mg Miscellaneous (Carbohydrates For Hypoglycemia ) 15 - 30 gm PO UD PRN PRN Reason: Hypoglycemia Treatment Stop: 03/30/22 18:59 Last Admin: 03/01/22 12:15 Dose: 15 gm Miscellaneous Information (Pharmacy Glycemic Mgmt Consult) 1 each N/A UD PRN PRN Reason: Consult Stop: 03/30/22 16:06 Morphine Sulfate (Morphine Sulfate 4 Mg/Ml 1 Ml Carp\Vial) 3 mg IV Q4H PRN PRN Reason: Pain Stop: 03/15/22 06:04 Last Admin: 03/04/22 09:21 Dose: 3 mg Nystatin (Nystatin Powder 15gm Btl) 1 appln EXT BID [facility] Stop: 04/01/22 20:59 Last Admin: 03/04/22 08:08 Dose: 1 appln Ondansetron HCl (Ondansetron Inj 2 Mg/Ml 2 Ml Vial) 4 mg IV Q4H PRN PRN Reason: Nausea Stop: 03/30/22 15:45
--- NOTE | 2022-03-04 14:00 | Pharmacy Report ---
Pharmacy Glycemic Short Note 2 - Date of Service March 04, 2022 - Glycemic Short BSG Results (Last 24 hours): 03/03/22 03/03/22 03/04/22 17:19 20:36 08:05 Glucose POC Glucose 150 H 147 H 158 H 03/04/22 03/04/22 08:47 12:12 Glucose 172 H POC Glucose 188 H OUTPATIENT ANTIDIABETIC REGIMEN: * Lantus 50 units SQ BID * Semaglutide 3 mg PO QAM * HbA1c 13% on 02/28/22 * Suspect non-adherence to above regimen for many reasons - prior documentation that pt had not taken her diabetes meds x4 days, significantly elevated HbA1c, and a significant hypoglycemic event that occurred after home dose of Lantus was administered on 02/28 PM ASSESSMENT: 03/04 * AM fasting has trended up the last 3 days 73-119-158 mg/dL. Will increase Lantus, but no where near to home dose / prior dose that precipitated previous hypoglycemic event * Post-prandial BSG's yesterday wnl - no change to Novolog 03/02/22 * BSGs yesterday were 88-59/66-83-85 and overnight were 72-114 mg/dL. Patient received NO INSULIN yesterday. * Fasting today is 102 mg/dL. * Per hospitalization from 2019, patient requires Lantus 45 units qAM and Novolog CF 15 CR 5. * Due to lower fasting, will give Lantus 25 units now then additional 20 units at lunch if BSG continues to trend upwards. * Start Novolog as above. BASELINE * 51 y/o F admitted for mild DKA. Patient has history of Type 2 diabetes managed on basal insulin and oral Semaglutide at home. She had not been taking her anti-diabetic meds for past 4 days. * Basal insulin 100 units (total of her home basal dose) was given last night since she was deficient from not taking her insulin at home. * She had a hypoglycemic event (BSG =54 mg/dl) at around midnight. * Fasting BSG was 83 mg/dl. Novolog parameters loosened this AM, patient received 3 units of Novolog at breakfast * Pre-lunch BSG trended down again to 59 mg/dl. So carb ratio, loosened further for tonight. * Basal Lantus dose decreased by 50-70% at HS and a scale is ordered based on BSG. PLAN FOR INPATIENT GLYCEMIC CONTROL: * Hold outpatient oral diabetes medications * Basal insulin * Lantus 30 units SQ x 1 then 5-10 units at HS depending on BSG * Bolus insulin * NovoLog per scale ACHS or Q6hrs while NPO * Goal Range: Low 110 mg/dL - High 140 mg/dL * Correction Factor: 25 mg/dL/unit * Nutritional / Prandial insulin per carb ratio of 1 unit per 7 grams CHO consumed
--- NOTE | 2022-03-04 17:35 | Ultrasound Report ---
US extremity nonvascular comp CLINICAL HISTORY: left leg. Evaluate for abscess TECHNIQUE: Real-time grayscale sonographic images of the left lateral calf were obtained. Comparison: None available at the time of this dictation. FINDINGS/IMPRESSION: Diffuse edema and increased vascularity is seen in the left lateral calf and the re is no focal drainable fluid collection. ACT 112: Negative or not required by law. Electronically signed by: Loyd Arambula M.D. 03/04/2022 5:33 PM
[2022-03-04] MEDS: LANTUS PER UNIT CHARGE SQ SCH (20:56)
[2022-03-05] MEDS: MoRPHine SULFATE 4 MG/ML 1 ML CARP\\VIAL IV PRN ×4 (00:47→13:26)
[2022-03-05] MEDS: ceFAZolin 2000MG 2,000 MG/15 ML SYR IV SCH ×3 (00:48→16:35)
[2022-03-05] MEDS: ACETAMINOPHEN 325 MG TAB PO PRN (03:43)
[2022-03-05] MEDS: ADVANCED PROBIOTIC 1250 MG CAPSULE PO SCH (08:12)
[2022-03-05] MEDS: ENOXAPARIN INJ 40 MG/0.4 ML SYR SQ SCH (08:13)
[2022-03-05] MEDS: FERROUS SULFATE 325 MG TAB PO SCH ×2 (08:13→16:34)
[2022-03-05] MEDS: lisinopril 10 MG TAB PO SCH (08:13)
[2022-03-05] MEDS: hydroCHLOROthiazide 25 MG TAB PO SCH (08:13)
[2022-03-05] MEDS: ASPIRIN 81 MG ECTAB PO SCH (08:13)
[2022-03-05] MEDS: NYSTATIN POWDER 15GM BTL EXT SCH ×2 (08:14→21:21)
[2022-03-05 08:59] LABS: Hematocrit (blood only) 25.6 % (34.1-44.9); Hemoglobin 7.7 g/dl (12.0-16.0); Mean Corpuscular Hemoglobin 25.1 pg (25.0-34.0); Mean Corpuscular Hgb Conc 30.1 g/dL (32.0-36.0); Mean Corpuscular Volume 83.4 fL (80.0-100.0); Mean Platelet Volume 9.2 fL (9.4-12.3); Nucleated RBC # (auto) 0.02 K/uL (0-0); Nucleated RBC % (auto) 0.2 %; Platelet Count 428 K/uL (130-400); RDW Standard Deviation 49.1 fL (36.4-46.3); Red Blood Count 3.07 M/uL (3.93-5.22); White Blood Count 11.96 K/ul (4.8-10.8)
[2022-03-05] MEDS ORDERED: LANTUS PER UNIT CHARGE SQ ONE (09:00)
[2022-03-05] MEDS: INSULIN ASPART PER UNIT SC SCH ×4 (09:05→21:14)
[2022-03-05 09:23] LABS: BUN Creatinine Ratio 18.6 (10-20); Calcium 7.8 mg/dl (8.5-10.1); Creatinine Clr Calc Pharmacy 128.4 ml/min; Est GFR (African American) 115.5 ml/min; Est GFR (Non-African American) 99.6 ml/min; Potassium 4.2 mmol/L (3.5-5.1)
--- NOTE | 2022-03-05 18:16 | Hospitalist Progress Note ---
Date of Service March 05, 2022 Assessment & Plan (1) DKA (diabetic ketoacidosis): (2) Diabetic foot infection: (3) UTI (urinary tract infection): (4) Type 2 diabetes mellitus, with long-term current use of insulin: (5) Hypokalemia: Plan DKA with h/o IDDM -due to noncompliance to insulin and acute infection. -was on insulin drip and now transitioned to basal/bolus insulin, managed by pharmacy Left diabetic foot infection with ascending cellulitis left leg -appears to have abscess on left lateral leg which has burst and is draining purulent fluid -Orthopedic surgery consulted, appreciate input -Superficial culture +strep, blood cultures remains negative. Vancomycin/Zosyn- -> cefazolin 03/03 -ID consult pending -MRI left foot negative for osteomyelitis -left leg ultrasound negative for abscess -Patient with poor foot hygiene and no shoes. CAM boot ordered for left foot and Darco shoe for right per PT recommendations -OP follow up with podiatry for foot care Sacral cellulitis -CT pelvis negative for perirectal abscess, shows swelling consistent with known cellulitis -continue antibiotics as above Pansensitive E coli UTI -already on antibiotics for above Hypokalemia Hypophosphatemia -replete PRN Thrombocytosis- -likely reactive, improving Normocytic Anemia -B12, folate normal -Iron low--started oral iron HTN- - on lisinopril-HCTZ continued here DVT ppx- sc lovenox Disposition -needs rehab Admission and Anticipated Discharge Date Admission Date: February 28, 2022 Subjective Reports uncontrolled pain of her foot/leg ulcers Otherwise no new complaints Still waiting for ID evaluation Remains afebrile Physical Exam Physical Exam: Obese, no acute distress, non toxic Respiratory: Breathing comfortably on room air, no wheezing/rhonchi/rales Cardiovascular: regular rate and rhythm, no murmurs/rubs/gallops Gastrointestinal (Abdomen): soft, non tender Musculoskeletal: toenails are long, bilateral feet with extensive callouses Skin: known left foot ulcer, left leg ulcer, buttock and rectal ulcers all present on admission. Redness has receded significantly Neurologic: awake, alert Results & Data Results & [facility] ([facility]) Vital Signs (Past 12 Hours) Vital Signs Temp Pulse Resp BP Pulse Ox O2 Del Method 03/05/22 16:58 36.9 C 91 H 16 175/74 H 94 Room Air 03/05/22 08:43 36.6 C 52 L 16 147/77 H 94 Room Air Laboratory Results Short CBC 03/05/22 Range/Units 08:30 WBC 11.96 H (4.8-10.8) K/ul Hgb 7.7 L (12.0-16.0) g/dl Hct 25.6 L (34.1-44.9) % Plt Count 428 H (130-400) K/uL BMP 03/05/22 08:30 Sodium 139 Potassium 4.2 Chloride 100 Carbon Dioxide 32 BUN 13 Creatinine 0.70 Glucose 171 H Calcium 7.8 L Medications Administered Current Inpatient Medications Acetaminophen (Acetaminophen 325 Mg Tab) 650 mg PO Q6H PRN PRN Reason: headache Stop: 03/30/22 15:45 Last Admin: 03/05/22 03:43 Dose: 650 mg Aspirin (Aspirin 81 Mg Ectab) 81 mg PO [facility] Stop: 04/02/22 08:59 Last Admin: 03/05/22 08:13 Dose: 81 mg Dextrose (Dextrose 50% 50 Ml Syringe) 25 - 50 ml IV UD PRN; Protocol PRN Reason: Hypoglycemia Protocol Stop: 03/30/22 18:59 Enoxaparin Sodium (Enoxaparin Inj 40 Mg/0.4 Ml Syr) 40 mg SQ [facility] Stop: 03/31/22 08:59 Last Admin: 03/05/22 08:13 Dose: 40 mg Ferrous Sulfate (Ferrous Sulfate 325 Mg Tab) 325 mg PO BIDM [facility] Stop: 04/01/22 07:59 Last Admin: 03/05/22 16:34 Dose: 325 mg Glucagon (Glucagon For Inj 1 Mg Vial) 1 mg IM UD PRN; Protocol PRN Reason: Hypoglycemia Protocol Stop: 03/30/22 18:59 Glucose (Glucose 40% Gel 15 Gm Tube) 15 - 30 gm PO UD PRN; Protocol PRN Reason: Hypoglycemia Protocol Stop: 03/30/22 18:59 Glucose (Glucose 10 Tab/Tube) 4 - 8 tab PO UD PRN; Protocol PRN Reason: Hypoglycemia Protocol Stop: 03/30/22 18:59 Hydrochlorothiazide (Hydrochlorothiazide 25 Mg Tab) 12.5 mg PO [facility] Stop: 04/01/22 08:59 Last Admin: 03/05/22 08:13 Dose: 12.5 mg Cefazolin Sodium (Ancef 2000mg) 2,000 mg in 15 mls @ 3.75 mls/min IV Q8H [facility] Stop: 03/10/22 09:29 Last Admin: 03/05/22 16:35 Dose: 3.75 mls/min Insulin Aspart (Insulin Aspart Per Unit) 0 units SC ACHS [facility] Stop: 03/30/22 18:44 Last Admin: 03/05/22 17:50 Dose: 8 units Insulin Glargine (Lantus Per Unit Charge) 0 units SQ HS [facility]; Protocol Stop: 04/04/22 20:59 Lactobacillus Acidophilus (Advanced Probiotic 1250 Mg Capsule) 2 cap PO DAILY [facility] Stop: 03/31/22 08:59 Last Admin: 03/05/22 08:12 Dose: 2 cap Lisinopril (Lisinopril 10 Mg Tab) 10 mg PO QAM [facility] Stop: 03/30/22 19:29 Last Admin: 03/05/22 08:13 Dose: 10 mg Miscellaneous (Carbohydrates For Hypoglycemia ) 15 - 30 gm PO UD PRN PRN Reason: Hypoglycemia Treatment Stop: 03/30/22 18:59 Last Admin: 03/01/22 12:15 Dose: 15 gm Miscellaneous Information (Pharmacy Glycemic Mgmt Consult) 1 each N/A UD PRN PRN Reason: Consult Stop: 03/30/22 16:06 Morphine Sulfate (Morphine Sulfate 4 Mg/Ml 1 Ml Carp\Vial) 3 mg IV Q4H PRN PRN Reason: Pain Stop: 03/15/22 06:04 Last Admin: 03/05/22 13:26 Dose: 3 mg Nystatin (Nystatin Powder 15gm Btl) 1 appln EXT BID [facility] Stop: 04/01/22 20:59 Last Admin: 03/05/22 08:14 Dose: 1 appln Ondansetron HCl (Ondansetron Inj 2 Mg/Ml 2 Ml Vial) 4 mg IV Q4H PRN PRN Reason: Nausea Stop: 03/30/22 15:45
[2022-03-05] MEDS: LANTUS PER UNIT CHARGE SQ SCH (21:14)
[2022-03-05] MEDS: ACETAMINOPHEN 325 MG TAB PO SCH (21:19)
[2022-03-05] MEDS: oxyCODONE HCL IR 5 MG TAB (IMMEDIATE RELEASE) PO PRN (21:20)
[2022-03-05] MEDS: GABAPENTIN 100 MG CAP PO SCH (21:20)
[2022-03-06] MEDS: ceFAZolin 2000MG 2,000 MG/15 ML SYR IV SCH ×3 (01:59→17:39)
[2022-03-06] MEDS: oxyCODONE HCL IR 5 MG TAB (IMMEDIATE RELEASE) PO PRN ×3 (03:25→14:57)
[2022-03-06 08:25] LABS: Hematocrit (blood only) 25.3 % (34.1-44.9); Hemoglobin 7.7 g/dl (12.0-16.0); Mean Corpuscular Hemoglobin 25.2 pg (25.0-34.0); Mean Corpuscular Hgb Conc 30.4 g/dL (32.0-36.0); Mean Corpuscular Volume 82.7 fL (80.0-100.0); Mean Platelet Volume 9.4 fL (9.4-12.3); Platelet Count 413 K/uL (130-400); RDW Coefficient of Variation 16.2 % (11.5-14.5); Red Blood Count 3.06 M/uL (3.93-5.22); White Blood Count 11.08 K/ul (4.8-10.8)
[2022-03-06 09:02] LABS: Creatinine Clr Calc Pharmacy 128.4 ml/min; Est GFR (African American) 115.5 ml/min; Est GFR (Non-African American) 99.6 ml/min; Potassium 4.1 mmol/L (3.5-5.1)
[2022-03-06] MEDS: ASPIRIN 81 MG ECTAB PO SCH (09:15)
[2022-03-06] MEDS: hydroCHLOROthiazide 25 MG TAB PO SCH (09:15)
[2022-03-06] MEDS: FERROUS SULFATE 325 MG TAB PO SCH ×2 (09:15→17:30)
[2022-03-06] MEDS: ACETAMINOPHEN 325 MG TAB PO SCH ×3 (09:16→22:03)
[2022-03-06] MEDS: lisinopril 10 MG TAB PO SCH (09:16)
[2022-03-06] MEDS: ADVANCED PROBIOTIC 1250 MG CAPSULE PO SCH (09:16)
[2022-03-06] MEDS: GABAPENTIN 100 MG CAP PO SCH ×3 (09:17→22:04)
[2022-03-06] MEDS: NYSTATIN POWDER 15GM BTL EXT SCH ×2 (09:18→22:05)
[2022-03-06] MEDS: ENOXAPARIN INJ 40 MG/0.4 ML SYR SQ SCH (09:18)
[2022-03-06] MEDS: INSULIN ASPART PER UNIT SC SCH ×4 (09:37→22:08)
[2022-03-06] MEDS: LANTUS PER UNIT CHARGE SQ SCH ×2 (09:38→22:08)
--- NOTE | 2022-03-06 13:10 | Pharmacy Report ---
Pharmacy Glycemic Short Note 2 - Date of Service March 06, 2022 - Glycemic Short BSG Results (Last 24 hours): 03/05/22 03/05/22 03/06/22 17:06 20:47 08:01 Glucose 190 H POC Glucose 176 H 215 H 03/06/22 03/06/22 08:31 11:46 Glucose POC Glucose 221 H 207 H OUTPATIENT ANTIDIABETIC REGIMEN: * Lantus 50 units SQ BID * Semaglutide 3 mg PO QAM * HbA1c 13% on 02/28/22 * Suspect non-adherence to above regimen for many reasons - prior documentation that pt had not taken her diabetes meds x4 days, significantly elevated HbA1c, and a significant hypoglycemic event that occurred after home dose of Lantus was administered on 02/28 PM ASSESSMENT: 03/06 * AM fasting continued to trend up 03/05, now coming down with increase in lantus although still above goal (221 mg/dL this AM); continue to titrate lantus up; 50 units in AM with scale at PM * Prandial BSGs trending slightly above goal, upwards, will tighten carb ratio this morning 03/04 * AM fasting has trended up the last 3 days 73-119-158 mg/dL. Will increase Lantus, but no where near to home dose / prior dose that precipitated previous hypoglycemic event * Post-prandial BSG's yesterday wnl - no change to Novolog 03/02/22 * BSGs yesterday were 88-59/66-83-85 and overnight were 72-114 mg/dL. Patient received NO INSULIN yesterday. * Fasting today is 102 mg/dL. * Per hospitalization from 2019, patient requires Lantus 45 units qAM and Novolog CF 15 CR 5. * Due to lower fasting, will give Lantus 25 units now then additional 20 units at lunch if BSG continues to trend upwards. * Start Novolog as above. BASELINE * 51 y/o F admitted for mild DKA. Patient has history of Type 2 diabetes managed on basal insulin and oral Semaglutide at home. She had not been taking her anti-diabetic meds for past 4 days. * Basal insulin 100 units (total of her home basal dose) was given last night since she was deficient from not taking her insulin at home. * She had a hypoglycemic event (BSG =54 mg/dl) at around midnight. * Fasting BSG was 83 mg/dl. Novolog parameters loosened this AM, patient received 3 units of Novolog at breakfast * Pre-lunch BSG trended down again to 59 mg/dl. So carb ratio, loosened further for tonight. * Basal Lantus dose decreased by 50-70% at HS and a scale is ordered based on BSG. PLAN FOR INPATIENT GLYCEMIC CONTROL: * Hold outpatient oral diabetes medications * Basal insulin * Lantus 50 units SQ x 1 then 5-15 units at HS depending on BSG * Bolus insulin * NovoLog per scale ACHS or Q6hrs while NPO * Goal Range: Low 110 mg/dL - High 140 mg/dL * Correction Factor: 25 mg/dL/unit * Nutritional / Prandial insulin per carb ratio of 1 unit per 6 grams CHO consumed
--- NOTE | 2022-03-06 13:47 | Hospitalist Progress Note ---
Date of Service March 06, 2022 Assessment & Plan (1) DKA (diabetic ketoacidosis): (2) Diabetic foot infection: (3) UTI (urinary tract infection): (4) Type 2 diabetes mellitus, with long-term current use of insulin: (5) Hypokalemia: Plan DKA with h/o IDDM- DKA resolved with insulin drip and now back on basal bolus insulin managed by pharmacy. DKA was due to due to noncompliance to insulin and acute infection. Left diabetic foot infection with left lateral leg abscess with ascending cellulitis left leg - appears to have abscess on left lateral leg which has burst and is draining purulent fluid- culture ordered - MRI left foot negative for osteomyelitis - left leg ultrasound negative for abscess - Superficial culture +strep, blood cultures remains negative. - seen by Orthopedic surgery- no intervention recommended; OP podiatry follow up for foot care - Vancomycin/Zosyn--> cefazolin 03/03; continue wound care per WOCN - ID consult pending -Patient with poor foot hygiene and no shoes. CAM boot ordered for left foot and Darco shoe for right per PT recommendations Sacral cellulitis -CT pelvis negative for perirectal abscess, shows swelling consistent with known cellulitis -continue antibiotics as above - Wound care - Maintain krishna to allow healing Pansensitive E coli UTI -already on antibiotics for above Hypokalemia- resolved Thrombocytosis- -likely reactive, improving Normocytic Anemia - HB remains relatively stable. B12, folate normal; Iron low--started on oral iron HTN-- on lisinopril-HCTZ continued here DVT ppx- sc lovenox Disposition- PT recommends rehab, CM following. ID eval pending. Admission and Anticipated Discharge Date Admission Date: February 28, 2022 Subjective Feels better but continues with leg pain. No fever or chills. Appetite normal now. Wants to continue on krishna to allow sacral healing. No chest pain, fever, chills, N/V. Physical Exam Physical Exam: General: Obese female, Lying comfortably in bed, not in distress, on room air HEENT: EOMI, GISEL, MMM Chest: Clear breath sounds bilaterally, no wheezes or crackles CVS: Regular rate and rhythm, normal heart sounds, no murmur Abdomen: Soft, non tender, not distended, normal bowel sounds Neuro: Awake, alert, oriented, conversing well, non focal Extremities: LLE wrapped with dressing with purulent discharge over the dressing Krishna with lashon urine Results & Data Results & Data ([facility]) Vital Signs (Past 12 Hours) Vital Signs Temp Pulse Resp BP Pulse Ox O2 Del Method 03/06/22 07:44 36.7 C 85 16 146/75 H 92 Room Air Laboratory Results Short CBC 03/06/22 Range/Units 08:01 WBC 11.08 H (4.8-10.8) K/ul Hgb 7.7 L (12.0-16.0) g/dl Hct 25.3 L (34.1-44.9) % Plt Count 413 H (130-400) K/uL BMP 03/06/22 08:01 Sodium 137 Potassium 4.1 Chloride 100 Carbon Dioxide 31 BUN 14 Creatinine 0.70 Glucose 190 H Calcium 8.0 L Medications Administered Current Inpatient Medications Acetaminophen (Acetaminophen 325 Mg Tab) 650 mg PO TID [facility] Stop: 04/04/22 20:59 Last Admin: 03/06/22 09:16 Dose: 650 mg Aspirin (Aspirin 81 Mg Ectab) 81 mg PO QAM [facility] Stop: 04/02/22 08:59 Last Admin: 03/06/22 09:15 Dose: 81 mg Dextrose (Dextrose 50% 50 Ml Syringe) 25 - 50 ml IV UD PRN; Protocol PRN Reason: Hypoglycemia Protocol Stop: 03/30/22 18:59 Enoxaparin Sodium (Enoxaparin Inj 40 Mg/0.4 Ml Syr) 40 mg SQ QAM [facility] Stop: 03/31/22 08:59 Last Admin: 03/06/22 09:18 Dose: 40 mg Ferrous Sulfate (Ferrous Sulfate 325 Mg Tab) 325 mg PO BIDM [facility] Stop: 04/01/22 07:59 Last Admin: 03/06/22 09:15 Dose: 325 mg Gabapentin (Gabapentin 100 Mg Cap) 100 mg PO TID [facility] Stop: 04/04/22 20:59 Last Admin: 03/06/22 09:17 Dose: 100 mg Glucagon (Glucagon For Inj 1 Mg Vial) 1 mg IM UD PRN; Protocol PRN Reason: Hypoglycemia Protocol Stop: 03/30/22 18:59 Glucose (Glucose 40% Gel 15 Gm Tube) 15 - 30 gm PO UD PRN; Protocol PRN Reason: Hypoglycemia Protocol Stop: 03/30/22 18:59 Glucose (Glucose 10 Tab/Tube) 4 - 8 tab PO UD PRN; Protocol PRN Reason: Hypoglycemia Protocol Stop: 03/30/22 18:59 Hydrochlorothiazide (Hydrochlorothiazide 25 Mg Tab) 12.5 mg PO QAM [facility] Stop: 04/01/22 08:59 Last Admin: 03/06/22 09:15 Dose: 12.5 mg Cefazolin Sodium (Ancef 2000mg) 2,000 mg in 15 mls @ 3.75 mls/min IV Q8H [facility] Stop: 03/10/22 09:29 Last Admin: 03/06/22 09:20 Dose: 3.75 mls/min Insulin Aspart (Insulin Aspart Per Unit) 0 units SC ACHS [facility] Stop: 03/30/22 18:44 Last Admin: 03/06/22 13:12 Dose: 11 units Insulin Glargine (Lantus Per Unit Charge) 0 units SQ [facility]; Protocol Stop: 04/04/22 20:59 Last Admin: 03/05/22 21:14 Dose: 10 units Insulin Glargine ([facility]us Per Unit Charge) [facility] Protocol Stop: 04/05/22 08:59 Last Admin: 03/06/22 09:38 Dose: 50 units Lactobacillus Acidophilus (Advanced Probiotic 1250 Mg Capsule) 2 cap PO DAILY [facility] Stop: 03/31/22 08:59 Last Admin: 03/06/22 09:16 Dose: 2 cap Lisinopril (Lisinopril 10 Mg Tab) [facility] [place] Stop: 03/30/22 19:29 Last Admin: 03/06/22 09:16 Dose: 10 mg Miscellaneous (Carbohydrates For Hypoglycemia ) 15 - 30 gm PO UD PRN PRN Reason: Hypoglycemia Treatment Stop: 03/30/22 18:59 Last Admin: 03/01/22 12:15 Dose: 15 gm Miscellaneous Information (Pharmacy Glycemic Mgmt Consult) 1 each N/A UD PRN PRN Reason: Consult Stop: 03/30/22 16:06 Morphine Sulfate (Morphine Sulfate 4 Mg/Ml 1 Ml Carp\Vial) 3 mg IV Q4H PRN PRN Reason: Pain Stop: 03/15/22 06:04 Last Admin: 03/05/22 13:26 Dose: 3 mg Nystatin (Nystatin Powder 15gm Btl) 1 appln EXT BID [facility] Stop: 04/01/22 20:59 Last Admin: 03/06/22 09:18 Dose: 1 appln Ondansetron HCl (Ondansetron Inj 2 Mg/Ml 2 Ml Vial) 4 mg IV Q4H PRN PRN Reason: Nausea Stop: 03/30/22 15:45 Oxycodone HCl (Oxycodone Hcl Ir 5 Mg Tab (Immediate Release)) 5 mg PO Q6 PRN PRN Reason: Pain Stop: 03/19/22 18:19 Last Admin: 03/06/22 09:38 Dose: 5 mg
[2022-03-06] MEDS: PSYLLIUM or GUAR GUM FIBER POWDER PACKET PO SCH (18:41)
[2022-03-07] MEDS: ceFAZolin 2000MG 2,000 MG/15 ML SYR IV SCH ×2 (02:14→10:26)
[2022-03-07] MEDS: oxyCODONE HCL IR 5 MG TAB (IMMEDIATE RELEASE) PO PRN ×2 (04:28→09:17)
[2022-03-07] MEDS: NYSTATIN POWDER 15GM BTL EXT SCH (07:51)
[2022-03-07] MEDS: hydroCHLOROthiazide 25 MG TAB PO SCH (07:52)
[2022-03-07] MEDS: GABAPENTIN 100 MG CAP PO SCH ×2 (07:52→13:40)
[2022-03-07] MEDS: ADVANCED PROBIOTIC 1250 MG CAPSULE PO SCH (07:53)
[2022-03-07] MEDS: FERROUS SULFATE 325 MG TAB PO SCH (07:53)
[2022-03-07] MEDS: ASPIRIN 81 MG ECTAB PO SCH (07:54)
[2022-03-07] MEDS: lisinopril 10 MG TAB PO SCH (07:54)
[2022-03-07] MEDS: ACETAMINOPHEN 325 MG TAB PO SCH ×2 (07:54→13:40)
[2022-03-07] MEDS: ENOXAPARIN INJ 40 MG/0.4 ML SYR SQ SCH (07:56)
[2022-03-07] MEDS ORDERED: LANTUS PER UNIT CHARGE SQ SCH (09:00)
[2022-03-07] MEDS: PSYLLIUM or GUAR GUM FIBER POWDER PACKET PO SCH (09:17)
[2022-03-07] MEDS: INSULIN ASPART PER UNIT SC SCH ×2 (09:19→13:27)
[2022-03-07] MEDS: LANTUS PER UNIT CHARGE SQ SCH (09:20)
[2022-03-07 09:40] LABS: Hematocrit (blood only) 26.3 % (34.1-44.9); Mean Corpuscular Hemoglobin 25.5 pg (25.0-34.0); Mean Corpuscular Hgb Conc 30.4 g/dL (32.0-36.0); Mean Corpuscular Volume 83.8 fL (80.0-100.0); Mean Platelet Volume 9.5 fL (9.4-12.3); Platelet Count 422 K/uL (130-400); RDW Coefficient of Variation 16.5 % (11.5-14.5); RDW Standard Deviation 50.1 fL (36.4-46.3); Red Blood Count 3.14 M/uL (3.93-5.22); White Blood Count 12.27 K/ul (4.8-10.8)
[2022-03-07 10:16] LABS: BUN Creatinine Ratio 17.5 (10-20); C Reactive Protein 15.15 mg/dl (0-0.5); Calcium 7.7 mg/dl (8.5-10.1); Creatinine Clr Calc Pharmacy 112.4 ml/min; Est GFR (African American) 98.2 ml/min; Est GFR (Non-African American) 84.8 ml/min; Magnesium 1.3 mg/dl (1.7-2.4); Phosphorus 3.2 mg/dl (2.5-4.9); Potassium 3.9 mmol/L (3.5-5.1)
[2022-03-07] MEDS ORDERED: MAGNESIUM OXIDE 400 MG TAB PO SCH (11:30)
[2022-03-07] MEDS: MAGNESIUM SULFATE / D5W 1 GM/100 ML BAG IV SCH ×3 (11:49→14:53)
[2022-03-07] MEDS ORDERED: cephALEXin 500 MG CAP PO SCH (17:00)
--- NOTE | 2022-03-07 17:29 | Discharge Summary ---
Date of Service March 07, 2022 Admission HPI Per Admitting Provider 51 year old female with h/o DM-2 on insulin, HTN, obesity who presented to the ED with left foot infection for the past 1.5 week which is not improving. States she lives by herself at home. [place] sick 2 weeks ago with N/V/abd pain which resolved last week and now able to tolerate small food. For past 1.5 weeks, she has been having left sole wound beneath 2nd toe with brown discharge. She has been cleaning with soap water at home but it does not seem to be improving. Also has increasing redness of left leg ascending up, painful. Taking tylenol alternating with ibuprofen at home for pain. Hasn't seen any doctor for any of these issues. No fever, chills, chest pain, shortness of breath. She hasn't taken any of her meds or insulin for past 4 days as she felt sick. Doesn't smoke anymore. Had prior diabetic foot ulcer requiring wound vac in 09/2019. Admission Exam Per Admitting Provider General: Obese female, Lying comfortably in bed, not in distress, on room air HEENT: EOMI, GISEL, MMM Chest: Clear breath sounds bilaterally, no wheezes or crackles CVS: Regular rate and rhythm, normal heart sounds, no murmur Abdomen: Soft, non tender, not distended, normal bowel sounds Neuro: Awake, alert, oriented, conversing well, non focal Extremities: LLE cellulitis from foot all the way upto posterior knee- erythematous, tender. left sole with dried discharge, mild edema bilaterally Principal Diagnosis DKA, Diabetic foot infection with LLE cellulitis and abscess Discharge Exam General: Obese female, Lying comfortably in bed, not in distress, on room air HEENT: EOMI, GISEL, MMM Chest: Clear breath sounds bilaterally, no wheezes or crackles CVS: Regular rate and rhythm, normal heart sounds, no murmur Abdomen: Soft, non tender, not distended, normal bowel sounds Neuro: Awake, alert, oriented, conversing well, non focal Extremities: LLE wrapped with dressing. Left sole callus and wound dry with no discharge noted. Onychomycosis. Krishna with lashon urine Discharge Data Allergies Allergy/AdvReac Type Severity Reaction Status Date / Time No Known Allergies Allergy Unknown Verified 12/31/19 09:41 Consultations 02/28/22 14:03 ED Decision to Admit Stat 03/01/22 13:01 Consult Orthopedic Surgery Routine Ordered Studies 02/28/22 15:43 MRI Foot [MR foot LT wo/w con] Urgent 03/01/22 18:13 CT pelvis w/IV con only Routine 03/04/22 15:57 US extremity non-vascular ltd Routine Laboratory Results WBC 12.27 K/ul (4.8-10.8) H 03/07/22 09:08 RBC 3.14 M/uL (3.93-5.22) L 03/07/22 09:08 Hgb 8.0 g/dl (12.0-16.0) L 03/07/22 09:08 Hct 26.3 % (34.1-44.9) L 03/07/22 09:08 MCV 83.8 fL (80.0-100.0) 03/07/22 09:08 MCH 25.5 pg (25.0-34.0) 03/07/22 09:08 MCHC 30.4 g/dL (32.0-36.0) L 03/07/22 09:08 RDW Std Deviation 50.1 fL (36.4-46.3) H 03/07/22 09:08 RDW Coeff of Mya 16.5 % (11.5-14.5) H 03/07/22 09:08 Plt Count 422 K/uL (130-400) H 03/07/22 09:08 MPV 9.5 fL (9.4-12.3) 03/07/22 09:08 Immature Gran % (Auto) 2.0 % 03/04/22 08:47 Neut % (Auto) 77.2 % 03/04/22 08:47 Lymph % (Auto) 14.3 % 03/04/22 08:47 [place] % (Auto) 5.6 % 03/04/22 08:47 Eos % (Auto) 0.5 % 03/04/22 08:47 Baso % (Auto) 0.4 % 03/04/22 08:47 Neut # (Auto) 10.29 K/uL (1.4-6.5) H 03/04/22 08:47 Lymph # (Auto) 1.91 K/uL (1.2-3.4) 03/04/22 08:47 [place] # (Auto) 0.75 K/uL (0.24-0.82) 03/04/22 08:47 Eos # (Auto) 0.06 K/uL (0-0.50) 03/04/22 08:47 Baso # (Auto) 0.05 K/uL (0-0.2) 03/04/22 08:47 Immature Gran # (Auto) 0.27 K/uL (0.00-0.02) H 03/04/22 08:47 Absolute Nucleated RBC 0.02 K/uL (0-0) H 03/05/22 08:30 Nucleated RBC % (auto) 0.2 % 03/05/22 08:30 RBC Morphology Unremarkable 03/03/22 06:14 Hypochromasia Present 03/02/22 05:31 ESR 78 mm/hr (0-30) H 03/07/22 09:08 VBG pH 7.36 (7.36-7.41) 03/01/22 12:20 Sodium 137 mmol/L (136-145) 03/07/22 09:08 Potassium 3.9 mmol/L (3.5-5.1) 03/07/22 09:08 Chloride 98 mmol/L (98-107) 03/07/22 09:08 Carbon Dioxide 32 mmol/L (21-32) 03/07/22 09:08 Anion Gap 7 (3-11) 03/07/22 09:08 BUN 14 mg/dl (6-23) 03/07/22 09:08 Creatinine 0.80 mg/dl (0.6-1.2) 03/07/22 09:08 Est Cr Clr Drug Dosing 112.4 ml/min 03/07/22 09:08 Est GFR ( Amer) 98.2 ml/min 03/07/22 09:08 Est GFR (Non-Af Amer) 84.8 ml/min 03/07/22 09:08 BUN/Creatinine Ratio 17.5 (10-20) 03/07/22 09:08 Glucose 178 mg/dl (70-99(Fasting)) H 03/07/22 09:08 POC Glucose 159 mg/dl (70-99) H 03/07/22 12:08 Estimat Average Glucose 326 mg/dl 02/28/22 12:50 Hemoglobin A1c 13.0 % (4.5-5.6) H 02/28/22 12:50 Calcium 7.7 mg/dl (8.5-10.1) L 03/07/22 09:08 Phosphorus 3.2 mg/dl (2.5-4.9) 03/07/22 09:08 Magnesium 1.3 mg/dl (1.7-2.4) L 03/07/22 09:08 Iron 16 mcg/dl (35-150) L 02/28/22 17:25 Unsaturated IBC 118 mcg/dl (155-355) L 02/28/22 17:25 Ferritin 465.3 ng/ml (8-388) H 02/28/22 17:25 Total Bilirubin 0.3 mg/dl (0.2-1.0) 03/01/22 04:38 Direct Bilirubin 0.1 mg/dl (0-0.2) 03/01/22 04:38 AST 8 U/L (13-39) L 03/01/22 04:38 ALT 4 U/L (7-52) L 03/01/22 04:38 Alkaline Phosphatase 102 U/L (34-104) 03/01/22 04:38 C-Reactive Protein 15.15 mg/dl (0-0.5) H 03/07/22 09:08 Total Protein 6.0 gm/dl (6.0-8.3) D 03/01/22 04:38 Albumin 2.1 gm/dl (3.4-5.0) L 03/01/22 04:38 Globulin 3.9 gm/dl (2.5-4.0) 03/01/22 04:38 Albumin/Globulin Ratio 0.5 (0.9-2) L 03/01/22 04:38 Lipase 11 U/L (11-82) 02/28/22 12:50 Vitamin B12 1370 pg/ml (180-914) H 02/28/22 17:25 Folate 13.40 ng/ml (>5.38) 02/28/22 17:25 Procalcitonin 2.63 ng/ml (0-0.5) H 02/28/22 14:25 Urine Color Yellow 02/28/22 12:46 Urine Appearance Cloudy (Clear) A 02/28/22 12:46 Urine pH 5.0 (4.5-7.5) 02/28/22 12:46 Ur Specific [place] 1.008 (1.000-1.030) 02/28/22 12:46 Urine Protein 1+ (Negative) H 02/28/22 12:46 Urine Glucose (UA) 1+ (Negative) H 02/28/22 12:46 Urine Ketones 1+ (Negative) H 02/28/22 12:46 Urine Blood 1+ (Negative) H 02/28/22 12:46 Urine Nitrite Negative (Negative) 02/28/22 12:46 Urine Bilirubin Negative (Negative) 02/28/22 12:46 Urine Urobilinogen Negative (Negative) 02/28/22 12:46 Ur Leukocyte Esterase 3+ (Negative) H 02/28/22 12:46 Urine WBC (Auto) >30 /hpf (0-5) H 02/28/22 12:46 Urine RBC (Auto) 0-4 /hpf (0-4) 02/28/22 12:46 U Hyaline Cast (Auto) 1-5 /lpf (0-5) 02/28/22 12:46 U Epithel Cells (Auto) 5-10 /lpf (0-5) H 02/28/22 12:46 Urine Bacteria (Auto) Negative (Negative) 02/28/22 12:46 Stool Occult Bld Scrn Negative (Negative) 03/02/22 17:54 Random Vancomycin 23.6 mcg/ml (10-20) H 03/02/22 05:31 SARS-CoV-2, RNA, NAAT NEGATIVE (NEGATIVE) 02/28/22 12:40 Impressions KUB X-Ray 02/28/22 12:01 XR KUB/Abdomen 1 view CLINICAL HISTORY: nv. COMPARISON STUDY: No previous studies for comparison. TECHNIQUE: Multiple supine images were obtained of the 4 quadrants of the abdomen. FINDINGS: The bowel gas pattern is within normal limits without evidence for dilatation or obstruction. There is no evidence for organomegaly or gross intra-abdominal mass. No abnormal calcifications are seen along the course of the urinary tracts bilaterally. No acute osseous pathology. IMPRESSION: 1. No acute intra-abdominal abnormality. ACT 112: Negative or not required by law. Electronically signed by: Lonnie Clemente M.D. 02/28/2022 1:50 PM Tibia/Fibula X-Ray 02/28/22 12:02 XR tibia fibula LT 2V CLINICAL HISTORY: wound Comparison: None available at the time of this dictation. TECHNIQUE: 2 radiographic views of the right leg were obtained. FINDINGS: There is no evidence of an acute fracture. The alignment is anatomic. Joint spaces are well-preserved. Diffuse soft tissue swelling is seen. IMPRESSION: No focal erosion is seen to suggest osteomyelitis. Diffuse soft tissue swelling is compatible with cellulitis versus edema. ACT 112: Negative or not required by law. Electronically signed by: Loyd Arambula M.D. 02/28/2022 1:52 PM Chest X-Ray 02/28/22 13:30 SINGLE VIEW CHEST CLINICAL HISTORY: Nausea and vomiting FINDINGS: An AP, portable, upright chest radiograph is compared to study dated 09/20/2019. The cardiomediastinal silhouette is top normal for projection. There is mild bibasilar atelectasis. The lungs and pleural spaces are otherwise clear. No pneumothorax is seen. The bony thorax is grossly intact. IMPRESSION: No active disease in the chest. ACT 112: Negative or not required by law. Electronically signed by: Marvin Brumfield M.D. 02/28/2022 1:56 PM Foot MRI 02/28/22 15:43 MR foot LT wo/w con HISTORY: Left foot wound with infection. Assess for osteomyelitis. TECHNIQUE: Multiplanar multisequence MRI of the left forefoot was performed both before and after the intravenous administration of 11.5 cc of Gadavist contrast. COMPARISON STUDY: Left foot MRI 10/07/2019. FINDINGS: Extensive subcutaneous edema/swelling of the forefoot. This may represent a cellulitis. This is most pronounced at the first and second toes. No cortical destruction or abnormal marrow signal to suggest an osteomyelitis. No peripheral enhancing fluid collections to suggest an abscess. No fracture or dislocation. Edema within the plantar muscles could represent denervation injury. IMPRESSION: 1. Extensive soft tissue swelling/edema within the left forefoot. 2. No evidence for osteomyelitis. 3. No drainable fluid collections identified. ACT 112: Negative or not required by law. Electronically signed by: Tee Huerta M.D. 03/01/2022 8:[address] 03/01/22 18:13 CT pelvis w/IV con only HISTORY: Sacral cellulitis. evaluate for perirectal abscess TECHNIQUE: Multiaxial CT images of the pelvis were performed following the intravenous administration of contrast. Sagittal and coronal reformations were performed at the workstation by the radiologist. COMPARISON STUDY: None. FINDINGS: No fractures within the visualized osseous structures. No destructive changes identified to suggest an osteomyelitis. The there is moderate diffuse body wall edema. This is most pronounced within the left hip/thigh. There is associated mild skin thickening within the pelvis and hips. Punctate foci of subcutaneous gas within the left lower quadrant abdominal wall is likely due to prior medication injection. Mild presacral edema is noted. No loculated fluid collections to suggest an abscess. Specifically, no evidence for a perirectal abscess. Mild bladder wall thickening. The uterus and bilateral adnexa are unremarkable. No pelvic free fluid. The visualized loops of bowel show no wall thickening or obstruction. A few colonic diverticula. No evidence for acute diverticulitis. Normal appendix. There is left inguinal lymphadenopathy. Dominant left inguinal lymph node measures 4.0 x 2.4 cm. The major vascular structures within the pelvis appear patent. IMPRESSION: 1. Diffuse body wall edema with associated skin thickening. This most pronounced within the left hip/thigh. This likely represents anasarca. A left hip/thigh cellulitis should also be considered in the differential diagnosis. 2. Left inguinal lymphadenopathy. This is likely reactive. 3. No loculated fluid collections to suggest an abscess. Specifically, no evidence for a perirectal abscess. 4. Mild bladder wall thickening. This may represent a cystitis. 5. No evidence for osteomyelitis. ACT 112: Negative or not required by law. Electronically signed by: Tee Huerta M.D. 03/02/2022 9:40 AM Vascular Ultrasound 03/04/22 15:57 US extremity nonvascular comp CLINICAL HISTORY: left leg. Evaluate for abscess TECHNIQUE: Real-time grayscale sonographic images of the left lateral calf were obtained. Comparison: None available at the time of this dictation. FINDINGS/IMPRESSION: Diffuse edema and increased vascularity is seen in the left lateral calf and there is no focal drainable fluid collection. ACT 112: Negative or not required by law. Electronically signed by: Loyd Arambula M.D. 03/04/2022 5:33 PM Diabetes Follow up Diabetes Follow-up Needed for HgbA1c >9% Hospital Course (1) DKA (diabetic ketoacidosis): (2) Diabetic foot infection: (3) UTI (urinary tract infection): (4) Type 2 diabetes mellitus, with long-term current use of insulin: (5) Hypokalemia: Plan DKA with h/o IDDM- DKA resolved with insulin drip and now back on basal bolus insulin managed by pharmacy. DKA was due to due to noncompliance to insulin and acute infection. further insulin management per rehab physician. Left diabetic foot infection with left lateral leg abscess with ascending cellulitis left leg - she appears to have abscess on left lateral leg which has burst and is draining purulent fluid- culture showed GBS - Left leg ultrasound negative for focal drainable fluid collection/abscess - MRI left foot negative for osteomyelitis - Superficial culture with GBS, pus culture with GBS, blood cultures negative. - seen by Orthopedic surgery- no intervention recommended; OP podiatry follow up for foot care - Vancomycin/Zosyn--> cefazolin 03/03->changed to keflex at discharge for 10 more days- might need longer course if doesn't resolve completely- will need continued wound care at discharge for proper healing - Infection improving- leucocytosis, CRP and ESR much improved from admission (CRP 25->15; ESR >130->78) - Patient with poor foot hygiene and no shoes. CAM boot ordered for left foot and Darco shoe for right per PT recommendations - Pain management with gabapentin, oxy prn, tylenol. Sacral cellulitis -CT pelvis negative for perirectal abscess, shows swelling consistent with known cellulitis - ABx as above - Wound care - Maintain krishna to allow healing- discontinue when sacral wound healed Pansensitive E coli UTI- s/p 7 days of antibiotics as above Hypokalemia- resolved Hypomagnesemia- repleted iv. Also discharging on some oral supplementation Thrombocytosis-likely reactive, improving to 400s from 780 on admission Normocytic Anemia - Hb remains relatively stable at 8. B12, folate normal; Iron low--started on oral iron HTN-- on lisinopril-HCTZ She is comfortable and stable for discharge to [facility]. All questions answered. Further management per rehab physician. Total Time Total Time Spent Total Time Spent (In Minutes): 50 Discharge Plan Discharge Items Patient Disposition: Transfer Inpatient Rehab Fac Reason For Visit: DKA Discharge Diagnosis: DKA, Left diabetic foot infection with cellulitis and abscess Activity: Per Instructions section Non-emergency contact: Primary Care Provider Call non-emergency contact if: you have any medication questions, your symptoms worsen, your pain is not controlled, your pain is concerning for you, you have a fever, your wound has increased drainage and your wound pain has increased Follow-up/Referrals: [facility] [Primary Care Provider] - Diet: Carb Consistent or DM2 Addtl Attending Provider Instructions: Continue keflex q6hr for 10 more days for leg infection- you might need a longer course if the infection is not completely resolved by then- rehab physician will take care of it. Fortunately you do not have deep infection or infection of the bones. Your urine infection has been treated. Your blood culture is negative. Your inflammatory markers are improving. Continue wound care of the leg, foot and back- follow up with wound care Follow up with podiatry for foot care Continue krishna for now to let the sacral wound heal- the rehab physician will discontinue when the sacral wound is healing. Continue gabapentin and oxycodone as needed for pain Continue magnesium supplementation. You had DKA which is resolved. Your insulin is being uptitrated as your appetite and oral intake is improving- here currently you are getting 50 U lantus in morning and 10 U lantus at night along with humalog sliding scale insulin with meals ( 1 unit insulin per 6 grams of carbs consumed with correction factor of 25)- Rehab doctor will adjust the insulin as needed based on the blood sugars and determine the dose needed at discharge. Pending Studies at Discharge: No Stand-Alone Forms: My [facility] Skilled Items Patient informed of condition?: Yes DNR: No Discharge Level of Care: Acute rehab Communicable Disease: No Discharge Prognosis: Stable Lines: None Urinary Catheter: Yes Medications and DC Order Prescriptions: New magnesium oxide 400 mg (241.3 mg magnesium) Tablet 400 mg PO BID Qty: 30 0RF gabapentin 100 mg Capsule 100 mg PO TID Qty: 60 0RF ferrous sulfate 325 mg (65 mg iron) Tablet,Delayed Release (Dr/Ec) 325 mg PO DAILY Qty: 30 0RF Psyllium Or Guar Gum Fiber Sup [Metamucil Or Nutrisource Fiber Supplement] 1 pkg PO QAM Qty: 30 0RF cephalexin 500 mg tablet 500 mg PO Q6H 10 Days Qty: 40 0RF oxycodone 5 mg tablet 5 mg PO Q4H PRN (Reason: pain) Qty: 30 0RF Continued lisinopril-hydrochlorothiazide 10-12.5 mg tablet 1 tab PO QAM Lactinex 1 million cell tablet,chewable 1 tab PO BID Qty: 60 0RF Rx Instructions: administer with food or milk insulin glargine [Lantus Solostar U-100 Insulin] 100 unit/mL (3 mL) Insulin Pen 50 unit SUBCUT BID Rybelsus 3 mg Tablet 0 mg PO QAM aspirin [Adult Aspirin Regimen] 81 mg tablet,delayed release (DR/EC) 81 mg PO QAM Discharge Orders: Discharge Order (Routine); Ordered 03/07/22 Ordered By: Roge Rodriguez Admission Data Admit Date/Time: 02/28/22 14:53 Attending Provider: Roge Rodriguez Admit Provider: Roge Rodriguez Primary Care Provider: [facility] Other Providers: Roge Rodriguez ; Kwame Abdi ; [facility] Other Interventions: Discharge Summary Assessment (RN) Last Done: 03/07/22 13:43
== END 2022-03-07 15:55 | DRG 638 ==
LOC: ED 11:16 → 2S 14:53 → SUATTDRO 14:53 → 2S 18:28 → 3W 03-02 15:59

== ENCOUNTER 2022-05-17 17:37 | Inpatient (IN) ==
[2022-05-17 19:44] LABS: Basophils # (auto) 0.04 K/uL (0-0.2); Basophils % (auto) 0.5 %; Eosinophils # (auto) 0.15 K/uL (0-0.50); Eosinophils % (auto) 1.8 %; Hematocrit (blood only) 35.5 % (34.1-44.9); Hemoglobin 10.9 g/dl (12.0-16.0); Immature Granulocytes # (auto) 0.02 K/uL (0.00-0.02); Immature Granulocytes % (auto) 0.2 %; Lymphocytes # (auto) 2.06 K/uL (1.2-3.4); Lymphocytes % (auto) 25.3 %; Mean Corpuscular Hemoglobin 25.2 pg (25.0-34.0); Mean Corpuscular Hgb Conc 30.7 g/dL (32.0-36.0); Mean Corpuscular Volume 82.2 fL (80.0-100.0); Mean Platelet Volume 11.2 fL (9.4-12.3); Monocytes # (auto) 0.48 K/uL (0.24-0.82); Monocytes % (auto) 5.9 %; Neutrophils # (auto) 5.39 K/uL (1.4-6.5); Neutrophils % (auto) 66.3 %; Platelet Count 285 K/uL (130-400); RDW Coefficient of Variation 16.1 % (11.5-14.5); RDW Standard Deviation 48.6 fL (36.4-46.3); Red Blood Count 4.32 M/uL (3.93-5.22); White Blood Count 8.14 K/ul (4.8-10.8)
[2022-05-17 19:50] LABS: Appearance Urine Clear (Clear); Bacteria Urine Automated 4+ (Negative); Bilirubin Urine Negative (Negative); Blood Urine Trace (Negative); Color Urine Yellow; Glucose Urine UA Negative (Negative); Ketones Urine Negative (Negative); Leukocyte Esterase Urine 1+ (Negative); Nitrite Urine Positive (Negative); Protein Urine 2+ (Negative); RBC Urine Automated 0-4 /hpf (0-4); Specific Gravity Urine 1.011 (1.000-1.030); Urobilinogen Urine Negative (Negative); pH Urine 5.5 (4.5-7.5)
[2022-05-17 20:04] LABS: Albumin Globulin Ratio 0.8 (0.9-2); Albumin Level 3.7 gm/dl (3.4-5.0); BUN Creatinine Ratio 24.4 (10-20); Bilirubin,Total 0.3 mg/dl (0.2-1.0); Calcium 9.5 mg/dl (8.5-10.1); Creatinine Clr Calc Pharmacy 110.9 ml/min; Est GFR (African American) 94.7 ml/min; Est GFR (Non-African American) 81.7 ml/min; Globulin 4.7 gm/dl (2.5-4.0); Potassium 4.7 mmol/L (3.5-5.1); Total Protein 8.4 gm/dl (6.0-8.3)
--- NOTE | 2022-05-17 20:34 | XRay Report ---
XR tibia fibula LT 2V CLINICAL HISTORY: leg pain TECHNIQUE: 2 radiographic views of the right leg were obtained. Comparison: Comparison is made to tibia-fibula radiographs 02/28/2022 FINDINGS: There is no evidence of an acute fracture. Joint spaces are well-preserved. There are are bilateral s oft tissue defects which are new from prior exam. Subcutaneous emphysema is seen. Stable calcific den sities in the anterior soft tissues. IMPRESSION: Bilateral soft tissue defects are nonspecific. Subcutaneous emphysema is concerning for gas-forming i nfection, although trauma may also result in a similar appearance. Correlation with physical exam is recommended. No bony defects are seen, in particular no erosions to suggest osteomyelitis. ACT 112: Negative or not required by law. Electronically signed by: Loyd Arambula M.D. 05/17/2022 8:32 PM
[2022-05-17] MEDS ORDERED: PIPERACILLIN/TAZOBACTAM 4.5 GM/120 ML BAG IV ONE (20:52)
[2022-05-17] MEDS ORDERED: ACETAMINOPHEN 1,000 MG/100 ML VIAL IV STA (21:04)
--- NOTE | 2022-05-17 22:17 | Emergency Department Note ---
History of Present Illness General Chief complaint: Hypertension Stated complaint: HTN, REFFERRED BY HOME HEALTH Time Seen by Provider: 05/17/22 19:33 History of Present Illness Provider complaint: Left leg infection Onset (ago): week(s) 1 Location: lower extremity and left Maximum Pain Intensity: 5 Current Pain Intensity: 5 Associated symptoms: + rash; no cough, no fever/chills, no headaches, no malaise, no nausea/vomiting or no shortness of breath 52-year-old female presents emergency department for left lower extremity infection. Patient states she has a history of necrotizing fasciitis which she had to have surgery on in [facility]. She states since then she was at rehab and has been following with home wound care. She states she has be en using a wound VAC but over the last week there is been increased drainage from her lower extremity in the wound vacs up and walking. She states her home wound care nurse referred her to the emergency department because she thought her leg might be becoming infected again. Patient denies any fever. She states her sugars have been in check. No chest pain or difficulty breathing. Home Medications Medication Instructions Recorded Confirmed Type Ceftriaxone Ivpb See Rx Instructions .Route .COMPLEX 03/14/22 03/14/22 History Saccharomyces boulardii 250 mg 250 mg PO BID 03/14/22 03/14/22 History capsule acetaminophen 325 mg tablet 650 mg PO Q4 PRN Pain 03/14/22 03/14/22 History (Tylenol) acetaminophen 325 mg tablet 650 mg PO Q8 03/14/22 03/14/22 History (Tylenol) aspirin 81 mg tablet,delayed 81 mg PO DAILY 03/14/22 03/14/22 History release docusate sodium 100 mg capsule 100 mg PO BID 03/14/22 03/14/22 History enoxaparin 40 mg/0.4 mL 40 mg subcut DAILY 03/14/22 03/14/22 History subcutaneous syringe (Lovenox) ferrous sulfate 325 mg (65 mg 325 mg PO DAILY 03/14/22 03/14/22 History iron) tablet gabapentin 100 mg capsule 100 mg PO Q8 03/14/22 03/14/22 History hydrochlorothiazide 12.5 mg capsule 12.5 mg PO DAILY 03/14/22 03/14/22 History insulin glargine 100 unit/mL 10 unit subcut HS 03/14/22 03/14/22 History subcutaneous solution insulin glargine 100 unit/mL 50 unit subcut QAM 03/14/22 03/14/22 History subcutaneous solution insulin regular human 100 unit/mL 1 sliding scale dose subcut 03/14/22 03/14/22 History injection solution (Humulin R USEASDIRECTD Regular U-100 Insulin) lisinopril 10 mg tablet 10 mg PO DAILY 03/14/22 03/14/22 History magnesium oxide 400 mg PO BID 03/14/22 03/14/22 History naloxone 4 mg/actuation nasal spray 4 mg intranasal DIRECTED 03/14/22 03/14/22 History ondansetron 4 mg disintegrating 4 mg PO Q4 PRN Nausea 03/14/22 03/14/22 History tablet oxycodone 5 mg tablet 5 mg PO .Q3HR P 03/14/22 03/14/22 History psyllium 1 packet PO DAILY 03/14/22 03/14/22 History sennosides 8.6 mg-docusate sodium 1 tab-cap PO DAILY PRN Constipation 03/14/22 03/14/22 History 50 mg tablet (Senokot-S) Allergies Allergy/AdvReac Type Severity Reaction Status Date / Time No Known Allergies Allergy Unknown Verified 03/14/22 17:35 Past Med/Surg History Medical History Anemia Back pain Depression with anxiety Diabetes type 2, uncontrolled Diabetic peripheral neuropathy associated with type 2 diabetes mellitus Dysfunctional uterine bleeding Dyslipidemia Fatigue Hirsutism History of DVT (deep vein thrombosis) HTN (hypertension) Insomnia Loss of protective sensation of skin of foot Obesity Personal history of diabetic foot ulcer Tobacco use Type 2 diabetes mellitus with complications Type 2 diabetes mellitus, with long-term current use of insulin Varicose veins of both lower extremities Vitamin D deficiency Xerosis cutis Surgical History H/O tooth extraction History of History of cholecystectomy History of endometrial ablation History of facial surgery History of hysterectomy History of incision and drainage left foot by Dr. Haq on 10-03-19. History of nasal polypectomy History of tubal ligation Family History Father Dyslipidemia Prostate cancer Diabetes Lung cancer Mother Lung cancer Hypothyroidism Brother Coronary heart disease Asthma Grandfather (Maternal) Myocardial infarction Grandmother (Maternal) Myocardial infarction Grandmother (Paternal) Breast cancer Diabetes Social History Smoking Status: Former smoker Tobacco Type: Cigarettes Hx Alcohol Use: No Hx Substance Use: No Preferred Language: Kazakh Communication Ability: Effective Practical Nurse Required: No Beliefs That Will Affect Care: None marital status: Single Current Living Situation: Alone Current Living Situation Comment: home Feels Safe at Home: Yes Assistive Devices: Cane Review of Systems A total of 10 systems reviewed and were otherwise negative Physical Exam Vital Signs Vital Signs - 24 hr 05/17/22 17:51 05/17/22 19:56 05/17/22 21:00 Temperature 36.3 C L Temperature Source Temporal Artery Scan Pulse Rate 75 Pulse Rate [Apical] 81 84 Respiratory Rate 20 20 18 Respiratory Effort / Characteristics Non-Labored Non-Labored Spontaneous Non-Labored Spontaneous Respiratory Depth Normal Normal Normal Respiratory Pattern Regular Regular Regular Blood Pressure 178/71 H Blood Pressure [Right Arm] 242/85 H 213/83 H Blood Pressure Mean 106 Blood Pressure Mean [Right Arm] 137 126 Blood Pressure Position Sitting Pulse Oximetry 95 97 95 Oxygen Delivery Method Room Air Room Air Room Air Sepsis Recent Fever Within 48 Hours No Sepsis New/Unexplained Change in Mental Status No Sepsis Action Taken by Nursing No Action Required 05/17/22 21:30 Temperature Temperature Source Pulse Rate Pulse Rate [Apical] 64 Respiratory Rate 18 Respiratory Effort / Characteristics Non-Labored Spontaneous Respiratory Depth Normal Respiratory Pattern Regular Blood Pressure Blood Pressure [Right Arm] 164/72 H Blood Pressure Mean Blood Pressure Mean [Right Arm] 102 Blood Pressure Position Pulse Oximetry 94 Oxygen Delivery Method Room Air Sepsis Recent Fever Within 48 Hours Sepsis New/Unexplained Change in Mental Status Sepsis Action Taken by Nursing Physical Exam GENERAL: She is oriented to person, place, and time. She appears well-developed and well-nourished. She does not appear distressed. HENT: Exam performed. -Head: Normocephalic and atraumatic. -Right Ear: External ear normal. No mastoid tenderness. -Left Ear: External ear normal. No mastoid tenderness. -Mouth/Throat: The oropharynx is clear and moist. No trismus in the jaw. No dental abscesses or uvula swelling. No oropharyngeal exudate or tonsillar abscesses. EYES: Conjunctivae and EOM are normal. Pupils are equal, round, and reactive to light. Right eye exhibits no discharge. Left eye exhibits no discharge. No scleral icterus. NECK: Normal range of motion. Neck supple. No JVD present. No spinous process tenderness present. No carotid bruit present. No rigidity. No tracheal deviation and normal range of motion present. No Brudzinski's sign and no Kernig's sign noted. CV: Normal rate, regular rhythm, normal heart sounds and intact distal pulses. There is no peripheral edema. Palpable radial pulses bue. PULM/CHEST: Effort normal and breath sounds normal. No respiratory distress. No stridor. She has no wheezes. She has no rales. -Chest Wall: She exhibits no tenderness. ABD: The abdomen is soft. Bowel sounds are normal. She has no distension. No mass is present. There is no tenderness. There is no rebound, no guarding, no Goodrich's sign and no tenderness at McBurney's point. Rovsig negative LYMPH: No cervical adenopathy. NEURO: She is alert and oriented to person, place, and time. She has normal strength. No cranial nerve deficit or sensory deficit. Coordination and gait normal. GCS eye subscore is 4. GCS verbal subscore is 5. GCS motor subscore is 6. Cerebellar tests wnl. SKIN: Left lower extremity, 2 large wounds over the medial lateral aspect of the lower extremity. They are actively draining yellow discharge. No crepitus. No fluctuant areas. Nikolsky negative. Course Course 1932: The patient was evaluated in room A12. A complete history and physical exam was performed Cardiac monitoring: An order was placed for continuous cardiac monitoring. The monitor shows a rate of 60 with sinus rhythm 2121: Vital signs stable. Labs within normal limits. White blood cell count and lactic acid within normal limits. Urine does appear infected. Imaging shows bilateral soft tissue deficits and subcutaneous emphysema concerning for gas-forming infection. I discussed the case with the patient's surgeon at [place] Dr. Dennis. Clinically there are no signs of necrotizing fasciitis as she has no crepitus, no large black ulcerative lesion, no fever, no elevated white blood cell count, no lactic acidemia. He states given the patient's wounds he would expect some gas to be formed as they were exposed to the air in the since wound VAC is not working. We did discuss it would be appropriate to keep the patient at this facility or transfer. He states no emergent surgical procedure is needed at this time given there is no signs of necrotizing fasciitis. Both he and I feel that the patient can be kept at this facility and receive IV antibiotics since no emergent surgical procedure is needed per him. Administered Medications Discontinued Medications Piperacillin Sod/Tazobactam Sod (Zosyn) 4.5 gm in 120 mls @ 240 mls/hr IV NOW ONE Stop: 05/17/22 21:21 Last Infusion: 05/17/22 21:33 Dose: 0 mls/hr Documented By: stencil typist: 05/17/22 20:57 Dose: 240 mls/hr Documented By: MED Acetaminophen (Ofirmev) 1,000 mg in 100 mls @ 400 mls/hr IV NOW STA Stop: 05/17/22 21:18 Last Infusion: 05/17/22 22:08 Dose: 0 mls/hr Documented By: stencil typist: 05/17/22 21:10 Dose: 400 mls/hr Documented By: MED Medical Decision Making Laboratory Data Result diagrams: 05/17/22 19:20 05/17/22 19:20 Lab Results 05/17/22 05/17/22 05/17/22 Range/Units 19:20 19:20 19:40 WBC 8.14 (4.8-10.8) K/ul RBC 4.32 (3.93-5.22) M/uL Hgb 10.9 L (12.0-16.0) g/dl Hct 35.5 (34.1-44.9) % MCV 82.2 (80.0-100.0) fL MCH 25.2 (25.0-34.0) pg MCHC 30.7 L (32.0-36.0) g/dL RDW Std Deviation 48.6 H (36.4-46.3) fL RDW Coeff of Mya 16.1 H (11.5-14.5) % Plt Count 285 (130-400) K/uL MPV 11.2 (9.4-12.3) fL Immature Gran % (Auto) 0.2 % Neut % (Auto) 66.3 % Lymph % (Auto) 25.3 % [place] % (Auto) 5.9 % Eos % (Auto) 1.8 % Baso % (Auto) 0.5 % Neut # (Auto) 5.39 (1.4-6.5) K/uL Lymph # (Auto) 2.06 (1.2-3.4) K/uL [place] # (Auto) 0.48 (0.24-0.82) K/uL Eos # (Auto) 0.15 (0-0.50) K/uL Baso # (Auto) 0.04 (0-0.2) K/uL Immature Gran # (Auto) 0.02 (0.00-0.02) K/uL Sodium 139 (136-145) mmol/L Potassium 4.7 (3.5-5.1) mmol/L Chloride 101 (98-107) mmol/L Carbon Dioxide 31 (21-32) mmol/L Anion Gap 7 (3-11) BUN 20 (6-23) mg/dl Creatinine 0.82 (0.6-1.2) mg/dl Est Cr Clr Drug Dosing 110.9 ml/min Est GFR ( Amer) 94.7 ml/min Est GFR (Non-Af Amer) 81.7 ml/min BUN/Creatinine Ratio 24.4 H (10-20) Glucose 214 H (70-99(Fasting)) mg/dl Lactate (0.4-2.0) mmol/L Calcium 9.5 (8.5-10.1) mg/dl Total Bilirubin 0.3 (0.2-1.0) mg/dl AST 13 (13-39) U/L ALT 8 (7-52) U/L Alkaline Phosphatase 82 (34-104) U/L Total Protein 8.4 H (6.0-8.3) gm/dl Albumin 3.7 (3.4-5.0) gm/dl Globulin 4.7 H (2.5-4.0) gm/dl Albumin/Globulin Ratio 0.8 L (0.9-2) Urine Color Yellow Urine Appearance Clear (Clear) Urine pH 5.5 (4.5-7.5) Ur Specific [place] 1.011 (1.000-1.030) Urine Protein 2+ H (Negative) Urine Glucose (UA) Negative (Negative) Urine Ketones Negative (Negative) Urine Blood Trace H (Negative) Urine Nitrite Positive A (Negative) Urine Bilirubin Negative (Negative) Urine Urobilinogen Negative (Negative) Ur Leukocyte Esterase 1+ H (Negative) Urine WBC (Auto) 10-30 H (0-5) /hpf Urine RBC (Auto) 0-4 (0-4) /hpf U Hyaline Cast (Auto) 1-5 (0-5) /lpf U Epithel Cells (Auto) 10-20 H (0-5) /lpf Urine Bacteria (Auto) 4+ H (Negative) 05/17/22 Range/Units 20:19 WBC (4.8-10.8) K/ul RBC (3.93-5.22) M/uL Hgb (12.0-16.0) g/dl Hct (34.1-44.9) % MCV (80.0-100.0) fL MCH (25.0-34.0) pg MCHC (32.0-36.0) g/dL RDW Std Deviation (36.4-46.3) fL RDW Coeff of Mya (11.5-14.5) % Plt Count (130-400) K/uL MPV (9.4-12.3) fL Immature Gran % (Auto) % Neut % (Auto) % Lymph % (Auto) % [place] % (Auto) % Eos % (Auto) % Baso % (Auto) % Neut # (Auto) (1.4-6.5) K/uL Lymph # (Auto) (1.2-3.4) K/uL [place] # (Auto) (0.24-0.82) K/uL Eos # (Auto) (0-0.50) K/uL Baso # (Auto) (0-0.2) K/uL Immature Gran # (Auto) (0.00-0.02) K/uL Sodium (136-145) mmol/L Potassium (3.5-5.1) mmol/L Chloride (98-107) mmol/L Carbon Dioxide (21-32) mmol/L Anion Gap (3-11) BUN (6-23) mg/dl Creatinine (0.6-1.2) mg/dl Est Cr Clr Drug Dosing ml/min Est GFR ( Amer) ml/min Est GFR (Non-Af Amer) ml/min BUN/Creatinine Ratio (10-20) Glucose (70-99(Fasting)) mg/dl Lactate 0.9 (0.4-2.0) mmol/L Calcium (8.5-10.1) mg/dl Total Bilirubin (0.2-1.0) mg/dl AST (13-39) U/L ALT (7-52) U/L Alkaline Phosphatase (34-104) U/L Total Protein (6.0-8.3) gm/dl Albumin (3.4-5.0) gm/dl Globulin (2.5-4.0) gm/dl Albumin/Globulin Ratio (0.9-2) Urine Color Urine Appearance (Clear) Urine pH (4.5-7.5) Ur Specific [place] (1.000-1.030) Urine Protein (Negative) Urine Glucose (UA) (Negative) Urine Ketones (Negative) Urine Blood (Negative) Urine Nitrite (Negative) Urine Bilirubin (Negative) Urine Urobilinogen (Negative) Ur Leukocyte Esterase (Negative) Urine WBC (Auto) (0-5) /hpf Urine RBC (Auto) (0-4) /hpf U Hyaline Cast (Auto) (0-5) /lpf U Epithel Cells (Auto) (0-5) /lpf Urine Bacteria (Auto) (Negative) Imaging Data Radiologist's Impression: Tibia/Fibula X-Ray 05/17/22 20:06 XR tibia fibula LT 2V CLINICAL HISTORY: leg pain TECHNIQUE: 2 radiographic views of the right leg were obtained. Comparison: Comparison is made to tibia-fibula radiographs 02/28/2022 FINDINGS: There is no evidence of an acute fracture. Joint spaces are well-preserved. There are are bilateral soft tissue defects which are new from prior exam. Subcutaneous emphysema is seen. Stable calcific densities in the anterior soft tissues. IMPRESSION: Bilateral soft tissue defects are nonspecific. Subcutaneous emphysema is concerning for gas-forming infection, although trauma may also result in a similar appearance. Correlation with physical exam is recommended. No bony defects are seen, in particular no erosions to suggest osteomyelitis. ACT 112: Negative or not required by law. Electronically signed by: Loyd Arambula M.D. 05/17/2022 8:32 PM MDM Narrative Vital signs stable. Labs within normal limits. White blood cell count and lactic acid within normal limits. Urine does appear infected. Imaging shows bilateral soft tissue deficits and subcutaneous emphysema concerning for gas- forming infection. I discussed the case with the patient's surgeon at [place] Dr. Dennis. Clinically there are no signs of necrotizing fasciitis as she has no crepitus, no large black ulcerative lesion, no fever, no elevated white blood cell count, no lactic acidemia. He states given the patient's wounds he would expect some gas to be formed as they were exposed to the air in the since wound VAC is not working. We did discuss it would be appropriate to keep the patient at this facility or transfer. He states no emergent surgical procedure is needed at this time given there is no signs of necrotizing fasciitis. Both he and I feel that the patient can be kept at this facility and receive IV antibiotics since no emergent surgical procedure is needed per him. Impression & Plan Gangrene of lower extremity Discharge Plan Visit Data Chief Complaint: Hypertension Stated Complaint: HTN, REFFERRED BY HOME HEALTH ED Provider: Alexis Seaman Discharge Problem: Gangrene of lower extremity Patient Disposition: Admitted As Inpatient Forms Stand Alone Forms: My [facility] Prescriptions Prescriptions: No Action acetaminophen [Tylenol] 325 mg Tablet 650 mg PO Q8 acetaminophen [Tylenol] 325 mg Tablet 650 mg PO Q4 PRN (Reason: Pain) insulin glargine 100 unit/mL Solution 10 unit SUBCUT HS insulin glargine 100 unit/mL Solution 50 unit SUBCUT QAM sennosides-docusate sodium [Senokot-S] 8.6-50 mg Tablet 1 tab-cap PO DAILY PRN (Reason: Constipation) Rx Instructions: GIVE AT LUNCH Metamucil Packet 1 packet PO DAILY Rx Instructions: mix into at least 8 oz of water or juice before administering aspirin [Aspir-Low] 81 mg Tablet,Delayed Release (Dr/Ec) 81 mg PO DAILY ferrous sulfate 325 mg (65 mg iron) Tablet 325 mg PO DAILY lisinopril 10 mg Tablet 10 mg PO DAILY Humulin R Regular U-100 Insuln 100 unit/mL Solution 1 sliding scale dose SUBCUT USEASDIRECTD Rx Instructions: AC,HS PER SLIDING SCALE, 131-180=2 UNITS, 181-240=4UNITS, 241-300=6UNITS, 301-350=8UNITS, 351-400=10UNIT,>400=12UNITS hydrochlorothiazide 12.5 mg Capsule 12.5 mg PO DAILY docusate sodium 100 mg Capsule 100 mg PO BID gabapentin 100 mg Capsule 100 mg PO Q8 ondansetron [Zofran ODT] 4 mg Tablet,Disintegrating 4 mg PO Q4 PRN (Reason: Nausea) oxycodone 5 mg tablet 5 mg PO .Q3HR enoxaparin [Lovenox] 40 mg/0.4 mL Syringe 40 mg SUBCUT DAILY Saccharomyces boulardii 250 mg Capsule 250 mg PO BID naloxone 4 mg/actuation [place],Non-Aerosol 4 mg INTRANASAL DIRECTED Rx Instructions: PRN OPIOID OD magnesium oxide 400 mg magnesium Tablet 400 mg PO BID Ceftriaxone Ivpb See Rx Instructions .ROUTE .COMPLEX Rx Instructions: 2,000 MG=1 VIAL, IV PIGGYBACK, Q24HRS, RATE 200ML/HR, INFUSE OVER 0.5 HRS. SRART 03/08/22 1800, STOP 03/18/22. Referrals Referrals: Mayra Holley DO [Primary Care Provider] -
[2022-05-17] MEDS ORDERED: GABAPENTIN 300 MG CAP PO STA (23:46)
[2022-05-17] MEDS ORDERED: oxyCODONE HCL IR 5 MG TAB (IMMEDIATE RELEASE) PO STA (23:46)
[2022-05-18] MEDS ORDERED: POLYETHYLENE (MIRALAX) 17 GM PACK PO PRN (01:35)
--- NOTE | 2022-05-18 02:13 | History and Physical Report ---
DATE OF ADMISSION: 05/17/2022. CHIEF COMPLAINT: Left lower extremity wound. HISTORY OF PRESENT ILLNESS: This is a 52-year-old female with past medical history significant for type 2 diabetes, hyperlipidemia, chronic sinusitis, hypertension, history of polyneuropathy, iron deficiency anemia due to chronic blood loss, myalgia due to simvastatin, history of tobacco abuse. The patient had this ongoing infection in the left lower extremity, initially treated with antibiotics, then she developed necrotizing fasciitis and she was transferred to [facility] in February and status post I and D at [place] and she was admitted to [facility] on 03/21/2022 and discharged on 03/30/2022. She is currently following with the wound clinic once a week and also home health nurse comes and checks on her three times a week. She is on wound VAC, but lately home health nurse felt that her erythema in the left lower extremity is getting worse and she is also having profuse draining. Last night, she had a lot of draining and she took off the wound VAC and she came here. She is hemodynamically stable. She denies any fevers. She is able to walk on that leg. There is no leukocytosis. UA is positive. Tibia, fibula x-ray showed some subcutaneous emphysema concerning for gas forming infection. ER physician talked to her doctors in [place]. Her surgeon at [place],Dr. Dennis, as there is no clinical sign of necrotizing fascitis and given the patient's wounds, and wound vac not working some gas was to be expected.So, they thought there was no need for emergent surgical procedure and at this time,and there is no need to transfer. The patient received Zosyn in the ER. Resting comfortably, hemodynamically stable. Denies any headache. No blurred visions, no earache, no runny nose, no sore throat, no cough, no chest pain, no shortness of breath, no nausea, no vomiting, no abdominal pain. Normal bowel and bladder movements. ALLERGIES: No known drug allergies. PAST MEDICAL HISTORY: As mentioned above. PAST SURGICAL HISTORY: , endometrial cryoablation, ultrasound-guided, injection of eye drug, partial hysterectomy, treatment of extensive retinopathy. MEDICATIONS: The patient is on Tylenol p.r.n., aspirin 81 mg p.o. daily, Colace 100 mg p.o. b.i.d., ferrous sulfate 325 mg p.o. daily, Lasix 40 mg p.o. daily, gabapentin 300 mg p.o. at bedtime, Levemir 23 units subcutaneous b.i.d., insulin lispro 9 units subcutaneous a.c., lisinopril 20 mg p.o. b.i.d., potassium chloride 10 mEq p.o. daily, probiotics b.i.d. FAMILY HISTORY: Significant for father has diabetes, hypertension; aunt has breast cancer; paternal grandmother has breast cancer. SOCIAL HISTORY: Former smoker, smoked half pack a day for 10 years. No alcohol use. No drug use. REVIEW OF SYSTEMS: As per HPI. Rest of the review of systems is negative. PHYSICAL EXAMINATION: GENERAL: The patient is of moderate build, not in acute distress. VITAL SIGNS: Temperature 36.3, pulse 63, respiratory rate 18, blood pressure 160/65, oxygen 94% on room air. HEENT: Pupils equal, round and reactive to light. Oral mucosa moist. NECK: No JVD, no neck masses. CARDIOVASCULAR: S1 and S2 heard. Regular rate and rhythm. No murmur, no gallop. RESPIRATORY SYSTEM: Normal AP diameter. No accessory muscle use. No wheezing or crackles. ABDOMEN: Soft, bowel sounds present, nontender, no distention. CENTRAL NERVOUS SYSTEM: Cranial nerves II through XII grossly intact, nonfocal. EXTREMITIES: Bilateral lower extremity edema present. The left lower extremity is erythematous and I and D surgical sites are draining. LABORATORY DATA: WBC 8.1, hemoglobin 10.9, hematocrit 35.5, platelets 285. Sodium 139, potassium 4.7, chloride 101, bicarbonate 31, BUN 20, creatinine 0.8, glucose 214, lactate 0.9, calcium 9.5, total bilirubin 0.3, AST 13, ALT 8, alkaline phosphatase 82. Urinalysis positive for nitrite and leukocyte esterase and +4 bacteria. SARS-CoV-2 rapid test. IMAGING DATA: Tibia and fibula x-ray, bilateral soft tissue defects are nonspecific. Subcutaneous emphysema is concerning for gas-forming infection, although trauma may also result in similar appearance. Correlation with physical examination recommended. No bony defects are seen. No erosions to suggest osteomyelitis. EKG: Normal sinus rhythm at a rate of 180, right bundle-branch block, no acute ST changes seen. ASSESSMENT AND PLAN: This is a 52-year-old female, for necrotizing fasciitis in the left lower extremity status post I and D at [place] in February, presents with possible reinfection of the wound. 1. Left lower extremity infection: Drainage coming from the incision sites, more than usual as per the patient, possible cellulitis. X-rays show no osteomyelitis, ER talked to the [place] surgeon, Dr. Dennis, and as she has no signs of necrotizing fascitis, thought no need to transfer, as it is thought some gas is expected because of wound VAC not working as the wound is exposed to the air. Received Zosyn in the ER. Will also add daptomycin. Follow the cultures. Consult wound care. Also, consult surgery in the a.m. for any further recommendations. Follow the response. 2. Diabetes: Continue home Levemir. Placed on insulin scale. Follow the blood sugars. 3. Lower extremity edema: On Lasix at home which we will be continued. 4. Hypertension: Continue lisinopril, diuretics. Placed on IV hydralazine and monitor the blood pressure. Blood pressure was high when she came in. 5. Neuropathy: Continue gabapentin. 6. Iron deficiency anemia: On iron supplements. 7. Deep venous thrombosis prophylaxis: Placed on Lovenox. DISPOSITION: Closely monitor in the medical floor. PT/OT prior to discharge. Social service to help with discharge planning. Level 1 full code. Job ID: [id number] [id number]
[2022-05-18] MEDS: DAPTOmycin 350 MG in SYRINGE 0 ML IV SCH (02:26)
[2022-05-18] MEDS: INSULIN DETEMIR SQ SCH ×3 (02:26→22:03)
[2022-05-18] MEDS: INSULIN ASPART PER UNIT SC SCH ×5 (02:26→22:03)
[2022-05-18] MEDS: PIPERACILLIN/TAZOBACTAM 4.5 GM in DEXTROSE 5% 100 ML IV SCH ×3 (02:31→17:06)
[2022-05-18 05:52] LABS: Basophils # (auto) 0.03 K/uL (0-0.2); Basophils % (auto) 0.5 %; Eosinophils # (auto) 0.14 K/uL (0-0.50); Eosinophils % (auto) 2.4 %; Hemoglobin 10.1 g/dl (12.0-16.0); Immature Granulocytes # (auto) 0.03 K/uL (0.00-0.02); Immature Granulocytes % (auto) 0.5 %; Lymphocytes # (auto) 1.96 K/uL (1.2-3.4); Lymphocytes % (auto) 33.2 %; Mean Corpuscular Hemoglobin 25.3 pg (25.0-34.0); Mean Corpuscular Hgb Conc 30.6 g/dL (32.0-36.0); Mean Corpuscular Volume 82.7 fL (80.0-100.0); Mean Platelet Volume 12.9 fL (9.4-12.3); Monocytes # (auto) 0.45 K/uL (0.24-0.82); Monocytes % (auto) 7.6 %; Neutrophils # (auto) 3.29 K/uL (1.4-6.5); Neutrophils % (auto) 55.8 %; Platelet Count 193 K/uL (130-400); RDW Coefficient of Variation 16.3 % (11.5-14.5); Red Blood Count 3.99 M/uL (3.93-5.22)
--- NOTE | 2022-05-18 06:02 | Surgery Consultation ---
Date of Consultation May 18, 2022 Assessment & Plan (1) Wound of lower extremity: The patient has been admitted on the hospitalist service. We recommend proceeding as follows: Recommend continuing local wound care for the present time Continue broad-spectrum antibiotics in form of Zosyn and daptomycin Recommend obtaining consultation with wound care nurse Recommend tight control of her diabetes Further recommendations will be pending attending physicians examination of the wound. Supervising Physician Co-Signing Physician Notes Patient seen and examined, labs and imaging reviewed, agree with above. 52-year-old female with poorly controlled diabetes and recent history of surgical debridement at [place] of left lower extremity leg wounds with cellulitis and abscess. It is unclear whether this truly represented a necrotizing soft tissue infection as I do not have access to the operative reports. She was following with wound care and doing well, however increased drainage from the wounds prompted her to come to the emergency department. No fevers. Leg feels tight. On exam she is afebrile with stable vitals. Her left lower extremity has significant edema and erythema below the knee. There are 3 wounds with dressings in place. These were taken down. There is some minimal exudate within the wounds. There is no crepitus. There is no evidence of fluctuance or undrained fluid. Her WBC is normal, her ESR is elevated. At this point there is low concern for a necrotizing soft tissue infection based on physical exam and labs despite the air seen around the wounds. I would recommend local wound care, keeping the leg elevated, and IV antibiotics. If minimal improvement or still a concern, then would recommend lower extremity CT scan for further evaluation. If any significant debridement were to be required, would recommend transfer back to [place]. Consult wound care nurse. Surgery will follow peripherally, call with questions or concerns. History of Present Illness Reason for Consultation: Left lower extremity wound Attending Physician: Parth Pemberton MD History of Present Illness This is a 52-year-old female who has a significant history of poorly controlled diabetes and hypertension. The patient presented to the emergency department at [facility] on 03/14/2022 secondary to a left lower extremity wound. There is concern the patient had necrotizing fasciitis and she was therefore transferred to [facility] on 03/15/2022. Should be noted the patient had a prior admission to [facility] in mid February of this year for diabetic ketoacidosis as well as a plantar foot ulcer. Upon transfer to [facility] patient was evaluated by general surgery and taken to the operating room for incision and drainage of the left leg abscess as well as debridement of skin and subcutaneous tissue. The patient notes that following this procedure she was treated with wet-to-dry dressings and ultimately discharged to [facility] on 03/21/2022. Patient says that she has since been following at the wound care center where she had a wound VAC applied last week. She notes despite having this wound VAC she has noted increased drainage and the wound VAC has not been working properly. In addition the patient was told by her visiting nurse that she had concerns for some cellulitis and was then referred to the emergency department at [facility]. The patient does note she is she always has an element of erythema on her lower extremity on the left side where her wounds are and this is never extended beyond her knee. She currently denies any nausea or vomiting. She denies any significant pain at her lower extremity wound. Denies any fevers, shakes, or chills. She presented to the emergency department [facility] where she had labs and imaging performed. She did have a left tibia/fibula x-ray that showed some subcutaneous emphysema with concern for gas-forming infection. Labs include a CBC her white blood cell count was normal. Her platelet count was also normal. Hemoglobin and hematocrit were 10.1 and 33.0. Chemistry profile showed sodium and potassium are both normal as were her BUN and creatinine. Due to the findings on x-ray concern for gas-forming infection the treating emergency room physician discussed the case with the patient's surgeon at [facility] who is Dr. Beltrán. The surgeon notes that there is some expected gas to be noted in the tissue and did not feel transfer for or emergent surgical procedure was required. It was recommended the patient be admitted to [facility] for intravenous antibiotics. At the time of my interview the patient was resting comfortably in bed and she was in no distress. Allergies Allergy/AdvReac Type Severity Reaction Status Date / Time No Known Allergies Allergy Unknown Verified 03/14/22 17:35 Home Medications Medication Instructions Recorded Confirmed Type Saccharomyces boulardii 250 mg 250 mg PO BID 03/14/22 03/14/22 History capsule acetaminophen 325 mg tablet 650 mg PO Q4 PRN Pain 03/14/22 03/14/22 History (Tylenol) acetaminophen 325 mg tablet 650 mg PO Q8 03/14/22 03/14/22 History (Tylenol) aspirin 81 mg tablet,delayed 81 mg PO DAILY 03/14/22 03/14/22 History release docusate sodium 100 mg capsule 100 mg PO BID 03/14/22 03/14/22 History ferrous sulfate 325 mg (65 mg 325 mg PO DAILY 03/14/22 03/14/22 History iron) tablet furosemide 40 mg tablet (Lasix) 40 mg PO DAILY 05/17/22 05/17/22 History gabapentin 300 mg capsule 300 mg PO HS 05/17/22 05/17/22 History insulin detemir U-100 100 unit/mL 22 unit subcut BID 05/17/22 05/17/22 History subcutaneous solution (Levemir U-100 Insulin) insulin lispro 100 unit/mL 9 unit subcut AC 05/17/22 05/17/22 History subcutaneous solution lisinopril 20 mg tablet 20 mg PO BID 05/17/22 05/17/22 History potassium chloride 10 mEq 10 meq PO DAILY 05/17/22 05/17/22 History capsule,extended release Patient History Medical History Anemia Back pain Depression with anxiety Diabetes type 2, uncontrolled Diabetic peripheral neuropathy associated with type 2 diabetes mellitus Dysfunctional uterine bleeding Dyslipidemia Fatigue Hirsutism History of DVT (deep vein thrombosis) HTN (hypertension) Insomnia Loss of protective sensation of skin of foot Obesity Personal history of diabetic foot ulcer Tobacco use Type 2 diabetes mellitus with complications Type 2 diabetes mellitus, with long-term current use of insulin Varicose veins of both lower extremities Vitamin D deficiency Xerosis cutis Surgical History H/O tooth extraction History of History of cholecystectomy History of endometrial ablation History of facial surgery History of hysterectomy History of incision and drainage left foot by Dr. Haq on 10-03-19. 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 Required: No Beliefs That Will Affect Care: None marital status: Single Current Living Situation: Alone Current Living Situation Comment: home Other Information That Helps Us Care for You: No Feels Safe at Home: Yes Safety Concerns: Feels Safe At This Time Assistive Devices: Cane and Walker Review of Systems Constitutional: no fever and no chills Eyes: no eye pain Ear, Nose, Mouth, Throat: no ear pain Respiratory: no cough Cardiovascular: no chest pain Gastrointestinal: no abdominal pain Genitourinary: no dysuria Musculoskeletal: no back pain Integumentary: no rash Neurologic: no localized weakness Physical Exam Constitutional: WD/WN, vitals as above Eyes: no conjunctival abnormality ENMT: Ears: no hearing impairment and no external ear abnormality Mouth: no oropharynx abnormality Neck: trachea midline Respiratory: normal respiratory effort; no respiratory distress and no labored breathing Cardiovascular: Rate/Rhythm: regular rate and regular rhythm Gastrointestinal (Abdomen): Soft, nonrigid, nondistended, nontender to palpation Musculoskeletal: The patient's left lower extremity was examined. The patient did have [address] over pre-existing wounds on her leg. (These were not taken down and we will do so at the time of rounds with attending physician) patient did have some slight erythema in close proximity to the wounds which extended from her ankle to approximately 1 to 2 cm below her knee. I did not appreciate any crepitus in the soft tissue. Neurologic: moves all extremities Psychiatric: A+Ox3, euthymic affect Results & Data ([facility]) Vital Signs (Past 12 Hours) Vital Signs Temp Pulse Pulse Pulse Resp BP BP 05/18/22 01:30 36.5 C 65 18 168/75 H 05/18/22 01:16 56 L 17 163/74 H 05/17/22 23:38 63 160/65 H 05/17/22 21:30 64 18 164/72 H 05/17/22 21:00 84 18 213/83 H 05/17/22 19:56 81 20 242/85 H Pulse Ox O2 Del Method 05/18/22 01:30 99 Room Air 05/18/22 01:16 93 Room Air 05/17/22 23:38 94 Room Air 05/17/22 21:30 94 Room Air 05/17/22 21:00 95 Room Air 05/17/22 19:56 97 Room Air PG Care Time/CCT Total # of Minutes Spent Total Time Spent with Patient: Total time spent is greater than 50% in coordination of care (as documented) at patient's floor/unit and/or counseling patient: Coding Level of Care Code 01201 Inpt Consult Level 5 Diagnoses Wound of lower extremity S81.809A
[2022-05-18] MEDS: ENOXAPARIN INJ 40 MG/0.4 ML SYR SQ SCH ×2 (06:22→17:06)
[2022-05-18 06:24] LABS: BUN Creatinine Ratio 25.3 (10-20); Calcium 8.8 mg/dl (8.5-10.1); Creatinine Clr Calc Pharmacy 121.3 ml/min; Est GFR (African American) 105.5 ml/min; Magnesium 1.9 mg/dl (1.7-2.4); Potassium 4.1 mmol/L (3.5-5.1)
--- NOTE | 2022-05-18 07:15 | Electrocardiogram Report ---
Test Reason : Blood Pressure : / mmHG Vent. Rate : 080 BPM Atrial Rate : 080 BPM P-R Int : 144 ms QRS Dur : 126 ms QT Int : 414 ms P-R-T Axes : 065 005 003 degrees QTc Int : 477 ms Poor data quality, interpretation may be adversely affected Normal sinus rhythm Right bundle branch block Abnormal ECG When compared with ECG of 14-MAR-2022 13:33, Nonspecific T wave abnormality no longer evident in Lateral leads Confirmed by Joel Paz ([id number]) on 05/18/2022 7:15:36 AM Referred By: REFERRED SELF Confirmed By:Ld Paz
[2022-05-18] MEDS: FERROUS SULFATE 325 MG TAB PO SCH (07:28)
[2022-05-18] MEDS: lisinopril 20 MG TAB PO SCH ×2 (07:28→22:05)
[2022-05-18] MEDS: POTASSIUM CHLORIDE 10 MEQ TABCR PO SCH (07:28)
[2022-05-18] MEDS: SACCHAROMYCES BOULARDII 250 MG CAP PO SCH ×2 (07:28→22:05)
[2022-05-18] MEDS: FUROSEMIDE 40 MG TAB PO SCH (07:28)
[2022-05-18] MEDS: ASPIRIN 81 MG ECTAB PO SCH (07:28)
[2022-05-18] MEDS: DOCUSATE SODIUM 100 MG CAP PO SCH ×2 (07:29→22:05)
[2022-05-18 07:55] LABS: Estimated Average Glucose 203 mg/dl; Hemoglobin A1C 8.7 % (4.5-5.6)
--- NOTE | 2022-05-18 10:35 | Ultrasound Report ---
ULTRASOUND BILATERAL LOWER EXTREMITY VENOUS CLINICAL HISTORY: Lower extremity edema. COMPARISON STUDY: Bilateral lower extremity venous ultrasound dated 11/05/2007. TECHNIQUE: Real-time, grayscale, and color Doppler sonography of the deep veins of the right and left lower extremity was performed from the inguinal crease to the calf. Compression and augmentation wer e utilized. FINDINGS: There is no sonographic evidence of deep venous thrombosis identified in the right or left lower extremity. The common femoral, superficial femoral, and popliteal veins are patent and normally compressible bilaterally. The greater saphenous vein and the profunda femoris vein at the junction w ith the common femoral vein are clear in both legs. The visualized calf veins are patent in the right leg. The left calf vessels were not visualized due to overlying wounds and bandage material. Promine nt left inguinal lymph nodes are nonspecific and likely reactive. IMPRESSION: There is no sonographic evidence of deep venous thrombosis identified in the right or lef t lower extremity. ACT 112: Negative or not required by law. Electronically signed by: Marvin Brumfield M.D. 05/18/2022 10:34 AM
--- NOTE | 2022-05-18 13:28 | Hospitalist Progress Note ---
Date of Service May 18, 2022 Assessment & Plan (1) Wound of lower extremity: (2) Diabetic foot infection: (3) HTN (hypertension): Plan This is a 52-year-old female, for necrotizing fasciitis in the left lower extremity status post I and D at [place] in February, presents with possible reinfection of the wound. 1. Left lower extremity infection: Drainage coming from the incision sites, more than usual as per the patient, possible cellulitis. X-rays show no o steomyelitis, ER talked to the [place] surgeon,Dr. Dennis, and as she has no signs of necrotizing fascitis, thought no need to transfer, as it is thought some gas is expected because of wound VAC not working as the wound is exposed to the air. Afebrile with no leukocytosis. --ESR elevated compared to before 284. However, CRP is lower. Venous duplex does not show any DVT. Evaluated by surgery on 05/18; recommend local wound care, IV antibiotics and leg elevation. If no improvement in few days; CT scan of the lower extremity to be done. Plan; Continue on current antibiotics with Zosyn and daptomycin. Continue with wound care; wound care nurse on consult. --We will continue to monitor clinically; if improvement in next few days; will switch over to oral antibiotics and discharged home. If increased signs of infection; will obtain CT scan. 2. Diabetes: Continue home Levemir. Placed on insulin scale. . 3. Lower extremity edema: On Lasix at home which we will be continued. 4. Hypertension: Continue lisinopril, diuretics. 5. Neuropathy: Continue gabapentin. 6. Iron deficiency anemia: On iron supplements. 7. Deep venous thrombosis prophylaxis: Placed on Lovenox. Admission and Anticipated Discharge Date Admission Date: May 17, 2022 Subjective Patient seen and examined at bedside. She is sitting up on the bed; not in any distress. She feels that her left lower extremity swelling and redness has slightly improved compared to her admission. She denies fever or chills. Review of Systems Review of Systems: All systems reviewed & are unremarkable except as noted in Subjective Physical Exam Physical Exam: GENERAL: The patient is of moderate build, not in acute distress. HEENT: Pupils equal, round and reactive to light. Oral mucosa moist. NECK: No JVD, no neck masses. CARDIOVASCULAR: S1 and S2 heard. Regular rate and rhythm. No murmur, no gallop. RESPIRATORY SYSTEM: Normal AP diameter. No accessory muscle use. No wheezing or crackles. ABDOMEN: Soft, bowel sounds present, nontender, no distention. CENTRAL NERVOUS SYSTEM: Cranial nerves II through XII grossly intact, nonfocal. EXTREMITIES:Left lower extremity below the knee is red with significant swelling present. She has bandage over the site of drainage. Slightly increased temperature at the site as well. Results & Data Results & Data ([facility]) Vital Signs (Past 12 Hours) Vital Signs Temp Pulse Resp BP Pulse Ox O2 Del Method 05/18/22 07:20 36.5 C 70 16 154/84 H 99 Room Air 05/18/22 01:30 36.5 C 65 18 168/75 H 99 Room Air Laboratory Results Laboratory Results WBC 5.90 K/ul (4.8-10.8) 05/18/22 05:18 RBC 3.99 M/uL (3.93-5.22) 05/18/22 05:18 Hgb 10.1 g/dl (12.0-16.0) L 05/18/22 05:18 Hct 33.0 % (34.1-44.9) L 05/18/22 05:18 MCV 82.7 fL (80.0-100.0) 05/18/22 05:18 MCH 25.3 pg (25.0-34.0) 05/18/22 05:18 MCHC 30.6 g/dL (32.0-36.0) L 05/18/22 05:18 RDW Std Deviation 49.0 fL (36.4-46.3) H 05/18/22 05:18 RDW Coeff of Mya 16.3 % (11.5-14.5) H 05/18/22 05:18 Plt Count 193 K/uL (130-400) 05/18/22 05:18 MPV 12.9 fL (9.4-12.3) H 05/18/22 05:18 Immature Gran % (Auto) 0.5 % 05/18/22 05:18 Neut % (Auto) 55.8 % 05/18/22 05:18 Lymph % (Auto) 33.2 % 05/18/22 05:18 Titus % (Auto) 7.6 % 05/18/22 05:18 Eos % (Auto) 2.4 % 05/18/22 05:18 Baso % (Auto) 0.5 % 05/18/22 05:18 Neut # (Auto) 3.29 K/uL (1.4-6.5) 05/18/22 05:18 Lymph # (Auto) 1.96 K/uL (1.2-3.4) 05/18/22 05:18 Titus # (Auto) 0.45 K/uL (0.24-0.82) 05/18/22 05:18 Eos # (Auto) 0.14 K/uL (0-0.50) 05/18/22 05:18 Baso # (Auto) 0.03 K/uL (0-0.2) 05/18/22 05:18 Immature Gran # (Auto) 0.03 K/uL (0.00-0.02) H 05/18/22 05:18 ESR 84 mm/hr (0-30) H 05/18/22 05:18 Sodium 139 mmol/L (136-145) 05/18/22 05:18 Potassium 4.1 mmol/L (3.5-5.1) 05/18/22 05:18 Chloride 104 mmol/L (98-107) 05/18/22 05:18 Carbon Dioxide 30 mmol/L (21-32) 05/18/22 05:18 Anion Gap 5 (3-11) 05/18/22 05:18 BUN 19 mg/dl (6-23) 05/18/22 05:18 Creatinine 0.75 mg/dl (0.6-1.2) 05/18/22 05:18 Est Cr Clr Drug Dosing 121.3 ml/min 05/18/22 05:18 Est GFR ( Amer) 105.5 ml/min 05/18/22 05:18 Est GFR (Non-Af Amer) 91.0 ml/min 05/18/22 05:18 BUN/Creatinine Ratio 25.3 (10-20) H 05/18/22 05:18 Glucose 191 mg/dl (70-99(Fasting)) H 05/18/22 05:18 POC Glucose 158 mg/dl (70-99) H 05/18/22 12:08 Estimat Average Glucose 203 mg/dl 05/18/22 05:18 Hemoglobin A1c 8.7 % (4.5-5.6) H 05/18/22 05:18 Lactate 0.9 mmol/L (0.4-2.0) 05/17/22 20:19 Calcium 8.8 mg/dl (8.5-10.1) 05/18/22 05:18 Magnesium 1.9 mg/dl (1.7-2.4) 05/18/22 05:18 Total Bilirubin 0.3 mg/dl (0.2-1.0) 05/17/22 19:20 AST 13 U/L (13-39) 05/17/22 19:20 ALT 8 U/L (7-52) 05/17/22 19:20 Alkaline Phosphatase 82 U/L (34-104) 05/17/22 19:20 C-Reactive Protein 1.15 mg/dl (0-0.5) H 05/18/22 05:18 Total Protein 8.4 gm/dl (6.0-8.3) H 05/17/22 19:20 Albumin 3.7 gm/dl (3.4-5.0) 05/17/22 19:20 Globulin 4.7 gm/dl (2.5-4.0) H 05/17/22 19:20 Albumin/Globulin Ratio 0.8 (0.9-2) L 05/17/22 19:20 Urine Color Yellow 05/17/22 19:40 Urine Appearance Clear (Clear) 05/17/22 19:40 Urine pH 5.5 (4.5-7.5) 05/17/22 19:40 Ur Specific Menan 1.011 (1.000-1.030) 05/17/22 19:40 Urine Protein 2+ (Negative) H 05/17/22 19:40 Urine Glucose (UA) Negative (Negative) 05/17/22 19:40 Urine Ketones Negative (Negative) 05/17/22 19:40 Urine Blood Trace (Negative) H 05/17/22 19:40 Urine Nitrite Positive (Negative) A 05/17/22 19:40 Urine Bilirubin Negative (Negative) 05/17/22 19:40 Urine Urobilinogen Negative (Negative) 05/17/22 19:40 Ur Leukocyte Esterase 1+ (Negative) H 09/30/22 19:40 Urine WBC (Auto) 10-30 /hpf (0-5) H 05/17/22 19:40 Urine RBC (Auto) 0-4 /hpf (0-4) 05/17/22 19:40 U Hyaline Cast (Auto) 1-5 /lpf (0-5) 05/17/22 19:40 U Epithel Cells (Auto) 10-20 /lpf (0-5) H 05/17/22 19:40 Urine Bacteria (Auto) 4+ (Negative) H 05/17/22 19:40 SARS-CoV-2, RNA, NAAT NEGATIVE (NEGATIVE) 05/17/22 22:05 Impressions Tibia/Fibula X-Ray 05/17/22 20:06 XR tibia fibula LT 2V CLINICAL HISTORY: leg pain TECHNIQUE: 2 radiographic views of the right leg were obtained. Comparison: Comparison is made to tibia-fibula radiographs 02/28/2022 FINDINGS: There is no evidence of an acute fracture. Joint spaces are well-preserved. There are are bilateral soft tissue defects which are new from prior exam. Subcutaneous emphysema is seen. Stable calcific densities in the anterior soft tissues. IMPRESSION: Bilateral soft tissue defects are nonspecific. Subcutaneous emphysema is co ncerning for gas-forming infection, although trauma may also result in a similar appearance. Correlation with physical exam is recommended. No bony defects are seen, in particular no erosions to suggest osteomyelitis. ACT 112: Negative or not required by law. Electronically signed by: Loyd Arambula M.D. 05/17/2022 8:32 PM Venous Doppler Study 05/18/22 01:35 ULTRASOUND BILATERAL LOWER EXTREMITY VENOUS CLINICAL HISTORY: Lower extremity edema. COMPARISON STUDY: Bilateral lower extremity venous ultrasound dated 11/05/2007. TECHNIQUE: Real-time, grayscale, and color Doppler sonography of the deep veins of the right and left lower extremity was performed from the inguinal crease to the calf. Compression and augmentation were utilized. FINDINGS: There is no sonographic evidence of deep venous thrombosis identified in the right or left lower extremity. The common femoral, superficial femoral, and popliteal veins are patent and normally compressible bilaterally. The greater saphenous vein and the profunda femoris vein at the junction with the common femoral vein are clear in both legs. The visualized calf veins are patent in the right leg. The left calf vessels were not visualized due to overlying wounds and bandage material. Prominent left inguinal lymph nodes are nonspecific and likely reactive. IMPRESSION: There is no sonographic evidence of deep venous thrombosis identified in the right or left lower extremity. ACT 112: Negative or not required by law. Electronically signed by: Marvin Brumfield M.D. 05/18/2022 10:34 AM
[2022-05-18] MEDS: ACETAMINOPHEN 325 MG TAB PO PRN ×2 (14:59→19:27)
[2022-05-18] MEDS: hydrALAZINE HCL 20 MG/ML VIAL IV PRN ×2 (16:02→22:13)
[2022-05-18] MEDS ORDERED: ONDANSETRON INJ 2 MG/ML 2 ML VIAL IV PRN (21:28)
[2022-05-18] MEDS ORDERED: HYDROmorphone INJ 0.5 MG/0.5 ML SYR IV STA (21:28)
[2022-05-18] MEDS: GABAPENTIN 300 MG CAP PO SCH (22:05)
[2022-05-19] MEDS: PIPERACILLIN/TAZOBACTAM 4.5 GM in DEXTROSE 5% 100 ML IV SCH ×3 (02:13→17:35)
[2022-05-19] MEDS: DAPTOmycin 350 MG in SYRINGE 0 ML IV SCH (02:13)
[2022-05-19] MEDS: ENOXAPARIN INJ 40 MG/0.4 ML SYR SQ SCH ×2 (06:10→17:36)
[2022-05-19] MEDS: ACETAMINOPHEN 325 MG TAB PO PRN (06:30)
[2022-05-19] MEDS: INSULIN DETEMIR SQ SCH ×2 (08:51→20:52)
[2022-05-19] MEDS: INSULIN ASPART PER UNIT SC SCH ×4 (08:51→20:51)
[2022-05-19] MEDS: FUROSEMIDE 40 MG TAB PO SCH (08:53)
[2022-05-19] MEDS: ASPIRIN 81 MG ECTAB PO SCH (08:53)
[2022-05-19] MEDS: lisinopril 20 MG TAB PO SCH ×2 (08:53→20:53)
[2022-05-19] MEDS: POTASSIUM CHLORIDE 10 MEQ TABCR PO SCH (08:53)
[2022-05-19] MEDS: SACCHAROMYCES BOULARDII 250 MG CAP PO SCH ×2 (08:53→20:53)
[2022-05-19] MEDS: FERROUS SULFATE 325 MG TAB PO SCH (08:53)
[2022-05-19] MEDS: DOCUSATE SODIUM 100 MG CAP PO SCH ×2 (08:54→20:53)
--- NOTE | 2022-05-19 12:16 | Hospitalist Progress Note ---
Date of Service May 19, 2022 Assessment & Plan (1) Wound of lower extremity: (2) Diabetic foot infection: (3) HTN (hypertension): Plan This is a 52-year-old female, for necrotizing fasciitis in the left lower extremity status post I and D at [place] in February, presents with possible reinfection of the wound. 1. Left lower extremity infection: Drainage coming from the incision sites, more than usual as per the patient, possible cellulitis. X-rays show no o steomyelitis, ER talked to the [place] surgeon,Dr. Dennis, and as she has no signs of necrotizing fascitis, thought no need to transfer, as it is thought some gas is expected because of wound VAC not working as the wound is exposed to the air. Afebrile with no leukocytosis. --ESR elevated compared to before However, CRP is lower. Venous duplex does not show any DVT. Evaluated by surgery on 05/18; recommend local wound care, IV antibiotics and leg elevation. If no improvement in few days; CT scan of the lower extremity to be done. Plan; Patient showed improvement; continue on current antibiotics with Zosyn and daptomycin. CK checked today morning; WNL. Continue with wound care; wound care nurse on consult. --We will continue to monitor clinically; if improvement in next few days; will switch over to oral antibiotics and discharged home. If increased signs of infection; will obtain CT scan. 2. Diabetes: Continue home Levemir. Placed on insulin scale. . 3. Lower extremity edema: On Lasix at home which we will be continued. 4. Hypertension: Continue lisinopril, diuretics. 5. Neuropathy: Continue gabapentin. 6. Iron deficiency anemia: On iron supplements. 7. Deep venous thrombosis prophylaxis: Placed on Lovenox. Admission and Anticipated Discharge Date Admission Date: May 17, 2022 Subjective Patient seen and examined at bedside. She reports that the swelling and erythema has improved significantly since admission. No complaint of fever, chills, shortness of breath or chest pain. Review of Systems Review of Systems: All systems reviewed & are unremarkable except as noted in Subjective Physical Exam Physical Exam: GENERAL: The patient is of moderate build, not in acute distress. HEENT: Pupils equal, round and reactive to light. Oral mucosa moist. NECK: No JVD, no neck masses. CARDIOVASCULAR: S1 and S2 heard. Regular rate and rhythm. No murmur, no gallop. RESPIRATORY SYSTEM: Normal AP diameter. No accessory muscle use. No wheezing or crackles. ABDOMEN: Soft, bowel sounds present, nontender, no distention. CENTRAL NERVOUS SYSTEM: Cranial nerves II through XII grossly intact, nonfocal. EXTREMITIES:Edema and swelling improved on the left lower extremity compared to admission.. She has bandage over the site of drainage. Results & Data Results & Data ([facility]) Vital Signs (Past 12 Hours) Vital Signs Temp Pulse Resp BP Pulse Ox O2 Del Method 05/19/22 07:15 36.9 C 91 H 16 130/77 92 Room Air Laboratory Results Laboratory Results WBC 5.90 K/ul (4.8-10.8) 05/18/22 05:18 RBC 3.99 M/uL (3.93-5.22) 05/18/22 05:18 Hgb 10.1 g/dl (12.0-16.0) L 05/18/22 05:18 Hct 33.0 % (34.1-44.9) L 05/18/22 05:18 MCV 82.7 fL (80.0-100.0) 05/18/22 05:18 MCH 25.3 pg (25.0-34.0) 05/18/22 05:18 MCHC 30.6 g/dL (32.0-36.0) L 05/18/22 05:18 RDW Std Deviation 49.0 fL (36.4-46.3) H 05/18/22 05:18 RDW Coeff of Mya 16.3 % (11.5-14.5) H 05/18/22 05:18 Plt Count 193 K/uL (130-400) 05/18/22 05:18 MPV 12.9 fL (9.4-12.3) H 05/18/22 05:18 Immature Gran % (Auto) 0.5 % 05/18/22 05:18 Neut % (Auto) 55.8 % 05/18/22 05:18 Lymph % (Auto) 33.2 % 05/18/22 05:18 [place] % (Auto) 7.6 % 05/18/22 05:18 Eos % (Auto) 2.4 % 05/18/22 05:18 Baso % (Auto) 0.5 % 05/18/22 05:18 Neut # (Auto) 3.29 K/uL (1.4-6.5) 05/18/22 05:18 Lymph # (Auto) 1.96 K/uL (1.2-3.4) 05/18/22 05:18 [place] # (Auto) 0.45 K/uL (0.24-0.82) 05/18/22 05:18 Eos # (Auto) 0.14 K/uL (0-0.50) 05/18/22 05:18 Baso # (Auto) 0.03 K/uL (0-0.2) 05/18/22 05:18 Immature Gran # (Auto) 0.03 K/uL (0.00-0.02) H 05/18/22 05:18 ESR 84 mm/hr (0-30) H 05/18/22 05:18 Sodium 139 mmol/L (136-145) 05/18/22 05:18 Potassium 4.1 mmol/L (3.5-5.1) 05/18/22 05:18 Chloride 104 mmol/L (98-107) 05/18/22 05:18 Carbon Dioxide 30 mmol/L (21-32) 05/18/22 05:18 Anion Gap 5 (3-11) 05/18/22 05:18 BUN 19 mg/dl (6-23) 05/18/22 05:18 Creatinine 0.75 mg/dl (0.6-1.2) 05/18/22 05:18 Est Cr Clr Drug Dosing 121.3 ml/min 05/18/22 05:18 Est GFR ( Amer) 105.5 ml/min 05/18/22 05:18 Est GFR (Non-Af Amer) 91.0 ml/min 05/18/22 05:18 BUN/Creatinine Ratio 25.3 (10-20) H 05/18/22 05:18 Glucose 191 mg/dl (70-99(Fasting)) H 05/18/22 05:18 POC Glucose 222 mg/dl (70-99) H 05/19/22 08:11 Estimat Average Glucose 203 mg/dl 05/18/22 05:18 Hemoglobin A1c 8.7 % (4.5-5.6) H 05/18/22 05:18 Lactate 0.9 mmol/L (0.4-2.0) 05/17/22 20:19 Calcium 8.8 mg/dl (8.5-10.1) 05/18/22 05:18 Magnesium 1.9 mg/dl (1.7-2.4) 05/18/22 05:18 Total Bilirubin 0.3 mg/dl (0.2-1.0) 05/17/22 19:20 AST 13 U/L (13-39) 05/17/22 19:20 ALT 8 U/L (7-52) 05/17/22 19:20 Alkaline Phosphatase 82 U/L (34-104) 05/17/22 19:20 Total Creatine Kinase 33 U/L (26-192) 05/19/22 05:40 C-Reactive Protein 1.15 mg/dl (0-0.5) H 05/18/22 05:18 Total Protein 8.4 gm/dl (6.0-8.3) H 05/17/22 19:20 Albumin 3.7 gm/dl (3.4-5.0) 05/17/22 19:20 Globulin 4.7 gm/dl (2.5-4.0) H 05/17/22 19:20 Albumin/Globulin Ratio 0.8 (0.9-2) L 05/17/22 19:20 Urine Color Yellow 05/17/22 19:40 Urine Appearance Clear (Clear) 05/17/22 19:40 Urine pH 5.5 (4.5-7.5) 05/17/22 19:40 Ur Specific [place] 1.011 (1.000-1.030) 05/17/22 19:40 Urine Protein 2+ (Negative) H 05/17/22 19:40 Urine Glucose (UA) Negative (Negative) 05/17/22 19:40 Urine Ketones Negative (Negative) 05/17/22 19:40 Urine Blood Trace (Negative) H 05/17/22 19:40 Urine Nitrite Positive (Negative) A 05/17/22 19:40 Urine Bilirubin Negative (Negative) 05/17/22 19:40 Urine Urobilinogen Negative (Negative) 05/17/22 19:40 Ur Leukocyte Esterase 1+ (Negative) H 05/17/22 19:40 Urine WBC (Auto) 10-30 /hpf (0-5) H 05/17/22 19:40 Urine RBC (Auto) 0-4 /hpf (0-4) 05/17/22 19:40 U Hyaline Cast (Auto) 1-5 /lpf (0-5) 05/17/22 19:40 U Epithel Cells (Auto) 10-20 /lpf (0-5) H 05/17/22 19:40 Urine Bacteria (Auto) 4+ (Negative) H 05/17/22 19:40 SARS-CoV-2, RNA, NAAT NEGATIVE (NEGATIVE) 05/17/22 22:05 Impressions Tibia/Fibula X-Ray 05/17/22 20:06 XR tibia fibula LT 2V CLINICAL HISTORY: leg pain TECHNIQUE: 2 radiographic views of the right leg were obtained. Comparison: Comparison is made to tibia-fibula radiographs 02/28/2022 FINDINGS: There is no evidence of an acute fracture. Joint spaces are well-preserved. There are are bilateral soft tissue defects which are new from prior exam. [place] bcutaneous emphysema is seen. Stable calcific densities in the anterior soft tissues. IMPRESSION: Bilateral soft tissue defects are nonspecific. Subcutaneous emphysema is concerning for gas-forming infection, although trauma may also result in a similar appearance. Correlation with physical exam is recommended. No bony defects are seen, in particular no erosions to suggest osteomyelitis. ACT 112: Negative or not required by law. Electronically signed by: Loyd Arambula M.D. 05/17/2022 8:32 PM Venous Doppler Study 05/18/22 01:35 ULTRASOUND BILATERAL LOWER EXTREMITY VENOUS CLINICAL HISTORY: Lower extremity edema. COMPARISON STUDY: Bilateral lower extremity venous ultrasound dated 11/05/2007. TECHNIQUE: Real-time, grayscale, and color Doppler sonography of the deep veins of the right and left lower extremity was performed from the inguinal crease to the calf. Compression and augmentation were utilized. FINDINGS: There is no sonographic evidence of deep venous thrombosis identified in the right or left lower extremity. The common femoral, superficial femoral, and popliteal veins are patent and normally compressible bilaterally. The greater saphenous vein and the profunda femoris vein at the junction with the common femoral vein are clear in both legs. The visualized calf veins are patent in the right leg. The left calf vessels were not visualized due to overlying wounds and bandage material. Prominent left inguinal lymph nodes are nonspecific and likely reactive. IMPRESSION: There is no sonographic evidence of deep venous thrombosis identified in the right or left lower extremity. ACT 112: Negative or not required by law. Electronically signed by: Marvin Brumfield M.D. 05/18/2022 10:34 AM
[2022-05-19] MEDS: oxyCODONE HCL IR 5 MG TAB (IMMEDIATE RELEASE) PO PRN (16:41)
[2022-05-19] MEDS ORDERED: FLUARIX QUADRIVALENT 0.5 ML SYR IM ONE (18:29)
[2022-05-19] MEDS: GABAPENTIN 300 MG CAP PO SCH (20:54)
[2022-05-20] MEDS: oxyCODONE HCL IR 5 MG TAB (IMMEDIATE RELEASE) PO PRN ×3 (02:05→20:48)
[2022-05-20] MEDS: DAPTOmycin 350 MG in SYRINGE 0 ML IV SCH (02:05)
[2022-05-20] MEDS: PIPERACILLIN/TAZOBACTAM 4.5 GM in DEXTROSE 5% 100 ML IV SCH ×2 (02:05→08:55)
[2022-05-20] MEDS: ENOXAPARIN INJ 40 MG/0.4 ML SYR SQ SCH ×2 (06:17→18:01)
[2022-05-20] MEDS: POTASSIUM CHLORIDE 10 MEQ TABCR PO SCH (07:55)
[2022-05-20] MEDS: lisinopril 20 MG TAB PO SCH ×2 (07:56→20:48)
[2022-05-20] MEDS: SACCHAROMYCES BOULARDII 250 MG CAP PO SCH ×2 (07:56→20:48)
[2022-05-20] MEDS: DOCUSATE SODIUM 100 MG CAP PO SCH ×2 (07:56→20:46)
[2022-05-20] MEDS: ASPIRIN 81 MG ECTAB PO SCH (07:56)
[2022-05-20] MEDS: FERROUS SULFATE 325 MG TAB PO SCH (07:56)
[2022-05-20] MEDS: FUROSEMIDE 40 MG TAB PO SCH (07:56)
[2022-05-20] MEDS: INSULIN DETEMIR SQ SCH ×2 (08:50→20:47)
[2022-05-20] MEDS: INSULIN ASPART PER UNIT SC SCH ×4 (08:51→20:46)
--- NOTE | 2022-05-20 14:51 | Hospitalist Progress Note ---
Date of Service May 20, 2022 Assessment & Plan (1) Wound of lower extremity: (2) Diabetic foot infection: (3) HTN (hypertension): Plan This is a 52-year-old female, for necrotizing fasciitis in the left lower extremity status post I and D at [place] in February, presents with possible reinfection of the wound. 1. Left lower extremity infection: Drainage coming from the incision sites, more than usual as per the patient, possible cellulitis. X-rays show no o steomyelitis, ER talked to the [place] surgeon,Dr. Dennis, and as she has no signs of necrotizing fascitis, thought no need to transfer, as it is thought some gas is expected because of wound VAC not working as the wound is exposed to the air. Afebrile with no leukocytosis. --ESR elevated compared to before However, CRP is lower. Venous duplex does not show any DVT. Evaluated by surgery on 05/18; recommend local wound care, IV antibiotics and leg elevation. If no improvement in few days; CT scan of the lower extremity to be done. Plan; Discussed with pharmacist regarding the antibiotics; will change Zosyn to Unasyn and continue daptomycin. Continue with wound care; wound care nurse on consult. --We will continue to monitor clinically; if improvement in next few days; will switch over to oral antibiotics and discharged home. If increased signs of infection; will obtain CT scan. Today, patient feels increased tiredness. Swelling and erythema are similar to yesterday's. We will follow-up clinically tomorrow and decide on discharge for further imaging. 2. Diabetes: Continue home Levemir. Placed on insulin scale. . 3. Lower extremity edema: On Lasix at home which we will be continued. 4. Hypertension: Continue lisinopril, diuretics. 5. Neuropathy: Continue gabapentin. 6. Iron deficiency anemia: On iron supplements. 7. Deep venous thrombosis prophylaxis: Placed on Lovenox. Admission and Anticipated Discharge Date Admission Date: May 17, 2022 Subjective Patient seen and examined at bedside. She feels more tired compared to yesterday. She has been afebrile overnight. Her leg swelling and erythema are similar to yesterday. Review of Systems Review of Systems: All systems reviewed & are unremarkable except as noted in Subjective Physical Exam Physical Exam: GENERAL: The patient is of moderate build, not in acute distress. HEENT: Pupils equal, round and reactive to light. Oral mucosa moist. NECK: No JVD, no neck masses. CARDIOVASCULAR: S1 and S2 heard. Regular rate and rhythm. No murmur, no gallop. RESPIRATORY SYSTEM: Normal AP diameter. No accessory muscle use. No wheezing or crackles. ABDOMEN: Soft, bowel sounds present, nontender, no distention. CENTRAL NERVOUS SYSTEM: Cranial nerves II through XII grossly intact, nonfocal. EXTREMITIES:Edema and swelling improved on the left lower extremity compared to admission. And similar to yesterday. She has bandage over the site of d rainage. Results & Data Results & Data ([facility]) Vital Signs (Past 12 Hours) Vital Signs Temp Pulse Resp BP Pulse Ox O2 Del Method 05/20/22 08:00 Room Air 05/20/22 07:40 36.4 C L 61 16 112/56 L 93 Room Air Laboratory Results Laboratory Results WBC 5.90 K/ul (4.8-10.8) 05/18/22 05:18 RBC 3.99 M/uL (3.93-5.22) 05/18/22 05:18 Hgb 10.1 g/dl (12.0-16.0) L 05/18/22 05:18 Hct 33.0 % (34.1-44.9) L 05/18/22 05:18 MCV 82.7 fL (80.0-100.0) 05/18/22 05:18 MCH 25.3 pg (25.0-34.0) 05/18/22 05:18 MCHC 30.6 g/dL (32.0-36.0) L 05/18/22 05:18 RDW Std Deviation 49.0 fL (36.4-46.3) H 05/18/22 05:18 RDW Coeff of Mya 16.3 % (11.5-14.5) H 05/18/22 05:18 Plt Count 193 K/uL (130-400) 05/18/22 05:18 MPV 12.9 fL (9.4-12.3) H 05/18/22 05:18 Immature Gran % (Auto) 0.5 % 05/18/22 05:18 Neut % (Auto) 55.8 % 05/18/22 05:18 Lymph % (Auto) 33.2 % 05/18/22 05:18 [place] % (Auto) 7.6 % 05/18/22 05:18 Eos % (Auto) 2.4 % 05/18/22 05:18 Baso % (Auto) 0.5 % 05/18/22 05:18 Neut # (Auto) 3.29 K/uL (1.4-6.5) 05/18/22 05:18 Lymph # (Auto) 1.96 K/uL (1.2-3.4) 05/18/22 05:18 [place] # (Auto) 0.45 K/uL (0.24-0.82) 05/18/22 05:18 Eos # (Auto) 0.14 K/uL (0-0.50) 05/18/22 05:18 Baso # (Auto) 0.03 K/uL (0-0.2) 05/18/22 05:18 Immature Gran # (Auto) 0.03 K/uL (0.00-0.02) H 05/18/22 05:18 ESR 84 mm/hr (0-30) H 05/18/22 05:18 Sodium 139 mmol/L (136-145) 05/18/22 05:18 Potassium 4.1 mmol/L (3.5-5.1) 05/18/22 05:18 Chloride 104 mmol/L (98-107) 05/18/22 05:18 Carbon Dioxide 30 mmol/L (21-32) 05/18/22 05:18 Anion Gap 5 (3-11) 05/18/22 05:18 BUN 19 mg/dl (6-23) 05/18/22 05:18 Creatinine 0.75 mg/dl (0.6-1.2) 05/18/22 05:18 Est Cr Clr Drug Dosing 121.3 ml/min 05/18/22 05:18 Est GFR ( Amer) 105.5 ml/min 05/18/22 05:18 Est GFR (Non-Af Amer) 91.0 ml/min 05/18/22 05:18 BUN/Creatinine Ratio 25.3 (10-20) H 05/18/22 05:18 Glucose 191 mg/dl (70-99(Fasting)) H 05/18/22 05:18 POC Glucose 228 mg/dl (70-99) H 05/20/22 12:11 Estimat Average Glucose 203 mg/dl 05/18/22 05:18 Hemoglobin A1c 8.7 % (4.5-5.6) H 05/18/22 05:18 Lactate 0.9 mmol/L (0.4-2.0) 05/17/22 20:19 Calcium 8.8 mg/dl (8.5-10.1) 05/18/22 05:18 Magnesium 1.9 mg/dl (1.7-2.4) 05/18/22 05:18 Total Bilirubin 0.3 mg/dl (0.2-1.0) 05/17/22 19:20 AST 13 U/L (13-39) 05/17/22 19:20 ALT 8 U/L (7-52) 05/17/22 19:20 Alkaline Phosphatase 82 U/L (34-104) 05/17/22 19:20 Total Creatine Kinase 33 U/L (26-192) 05/19/22 05:40 C-Reactive Protein 1.15 mg/dl (0-0.5) H 05/18/22 05:18 Total Protein 8.4 gm/dl (6.0-8.3) H 05/17/22 19:20 Albumin 3.7 gm/dl (3.4-5.0) 05/17/22 19:20 Globulin 4.7 gm/dl (2.5-4.0) H 05/17/22 19:20 Albumin/Globulin Ratio 0.8 (0.9-2) L 05/17/22 19:20 Urine Color Yellow 05/17/22 19:40 Urine Appearance Clear (Clear) 05/17/22 19:40 Urine pH 5.5 (4.5-7.5) 05/17/22 19:40 Ur Specific [place] 1.011 (1.000-1.030) 05/17/22 19:40 Urine Protein 2+ (Negative) H 05/17/22 19:40 Urine Glucose (UA) Negative (Negative) 05/17/22 19:40 Urine Ketones Negative (Negative) 05/17/22 19:40 Urine Blood Trace (Negative) H 05/17/22 19:40 Urine Nitrite Positive (Negative) A 05/17/22 19:40 Urine Bilirubin Negative (Negative) 05/17/22 19:40 Urine Urobilinogen Negative (Negative) 05/17/22 19:40 Ur Leukocyte Esterase 1+ (Negative) H 05/17/22 19:40 Urine WBC (Auto) 10-30 /hpf (0-5) H 05/17/22 19:40 Urine RBC (Auto) 0-4 /hpf (0-4) 05/17/22 19:40 U Hyaline Cast (Auto) 1-5 /lpf (0-5) 05/17/22 19:40 U Epithel Cells (Auto) 10-20 /lpf (0-5) H 05/17/22 19:40 Urine Bacteria (Auto) 4+ (Negative) H 05/17/22 19:40 SARS-CoV-2, RNA, NAAT NEGATIVE (NEGATIVE) 05/17/22 22:05 Impressions Tibia/Fibula X-Ray 05/17/22 20:06 XR tibia fibula LT 2V CLINICAL HISTORY: leg pain TECHNIQUE: 2 radiographic views of the right leg were obtained. Comparison: Comparison is made to tibia-fibula radiographs 02/28/2022 FINDINGS: There is no evidence of an acute fracture. Joint spaces are well-preserved. There are are bilateral soft tissue defects which are new from prior exam. Subcutaneous emphysema is seen. Stable calcific densities in the anterior soft tissues. IMPRESSION: Bilateral soft tissue defects are nonspecific. Subcutaneous emphysema is concerning for gas-forming infection, although trauma may also result in a similar appearance. Correlation with physical exam is recommended. No bony defects are seen, in particular no erosions to suggest osteomyelitis. ACT 112: Negative or not required by law. Electronically signed by: Loyd Arambula M.D. 05/17/2022 8:32 PM Venous Doppler Study 05/18/22 01:35 ULTRASOUND BILATERAL LOWER EXTREMITY VENOUS CLINICAL HISTORY: Lower extremity edema. COMPARISON STUDY: Bilateral lower extremity venous ultrasound dated 11/05/2007. TECHNIQUE: Real-time, grayscale, and color Doppler sonography of the deep veins of the right and left lower extremity was performed from the inguinal crease to the calf. Compression and augmentation were utilized. FINDINGS: There is no sonographic evidence of deep venous thrombosis identified in the right or left lower extremity. The common femoral, superficial femoral, and popliteal veins are patent and normally compressible bilaterally. The gre ater saphenous vein and the profunda femoris vein at the junction with the common femoral vein are clear in both legs. The visualized calf veins are patent in the right leg. The left calf vessels were not visualized due to overlying wounds and bandage material. Prominent left inguinal lymph nodes are nonspecific and likely reactive. IMPRESSION: There is no sonographic evidence of deep venous thrombosis identified in the right or left lower extremity. ACT 112: Negative or not required by law. Electronically signed by: Marvin Brumfield M.D. 05/18/2022 10:34 AM
[2022-05-20 16:57] LABS: Potassium 4.5 mmol/L (3.5-5.1)
[2022-05-20] MEDS: AMPICILLIN/SULBACTAM SOD 3,000 MG in 0.9 % SODIUM CHLORIDE 100 ML IV SCH (18:00)
[2022-05-20] MEDS ORDERED: IOVERSOL 350 MG 100mL Prefilled Syringe IV ONE (18:00)
--- NOTE | 2022-05-20 18:57 | CT Scan Report ---
CT TIB/FIB LT W CON HISTORY: 52 years-old Female Assessment of posterior and medial calf wound. Follow-up study in a pat ient with soft tissue wound of the left lower leg. COMPARISON: 05/17/2022 radiographs, CT left lower extremity 03/14/2022 TECHNIQUE: Multiple axial CT images of the left tibia and fibula were obtained following the intraven ous administration of 95 mL Optiray 350. A dose lowering technique was used consistent with the [facility]. FINDINGS: Mildly demineralized appearance of the bones. Osteoarthritis of the knee and ankle. No acute fracture , dislocation, osseous erosion or destructive bone lesion. No osteochondral defect of the ankle. Dege nerative marginal spurring of the calcaneus. There is marked diffuse subcutaneous edema of the left lower extremity with associated skin thickenin g and varicosities. There is a 3.4 x 8.3 cm soft tissue defect present within the medial aspect of th e mid to lower aspect of the lower leg. Air and fluid-filled peripherally enhancing subcutaneous lucina ection of the posterior lower leg measures 2.1 x 12.7 x 18.4 cm with a tract extending towards the sk in surface. There are several additional peripherally enhancing fluid collections, some of which cont ain air within both the anteromedial and posterolateral aspects of the lower leg. No intramuscular co llection. Popliteal lymph nodes measuring up to 10 mm are likely reactive. IMPRESSION: 1. Chronic severe cellulitis of the left lower leg with a large soft tissue wound. No CT evidence of osteomyelitis. 2. There are several peripherally enhancing fluid and air and fluid-filled collections within the sub cutaneous tissues, largest of which measures up to 18 cm in length suggestive of abscesses. ACT 112: Negative or not required by law. The above report was generated using voice recognition software. It may contain grammatical, syntax o r spelling errors. Dictated: 05/20/2022 6:01 PM Transcribed: 05/20/2022 6:22 PM Judie [id number] [facility]Say Electronically signed by: Reza Duran M.D. 05/20/2022 6:56 PM
[2022-05-20] MEDS: GABAPENTIN 300 MG CAP PO SCH (20:46)
[2022-05-20] MEDS: ACETAMINOPHEN 325 MG TAB PO PRN (20:49)
[2022-05-21] MEDS: AMPICILLIN/SULBACTAM SOD 3,000 MG in 0.9 % SODIUM CHLORIDE 100 ML IV SCH ×2 (00:58→05:57)
[2022-05-21] MEDS: DAPTOmycin 350 MG in SYRINGE 0 ML IV SCH (03:06)
[2022-05-21] MEDS: ENOXAPARIN INJ 40 MG/0.4 ML SYR SQ SCH (05:58)
[2022-05-21 06:34] LABS: Basophils # (auto) 0.04 K/uL (0-0.2); Basophils % (auto) 0.6 %; Eosinophils % (auto) 7.4 %; Hematocrit (blood only) 28.8 % (34.1-44.9); Hemoglobin 8.9 g/dl (12.0-16.0); Immature Granulocytes # (auto) 0.02 K/uL (0.00-0.02); Immature Granulocytes % (auto) 0.3 %; Lymphocytes # (auto) 1.54 K/uL (1.2-3.4); Lymphocytes % (auto) 22.8 %; Mean Corpuscular Hemoglobin 25.7 pg (25.0-34.0); Mean Corpuscular Hgb Conc 30.9 g/dL (32.0-36.0); Mean Corpuscular Volume 83.2 fL (80.0-100.0); Mean Platelet Volume 11.3 fL (9.4-12.3); Monocytes # (auto) 0.57 K/uL (0.24-0.82); Monocytes % (auto) 8.4 %; Neutrophils # (auto) 4.09 K/uL (1.4-6.5); Neutrophils % (auto) 60.5 %; Platelet Count 206 K/uL (130-400); RDW Coefficient of Variation 16.5 % (11.5-14.5); RDW Standard Deviation 49.9 fL (36.4-46.3); Red Blood Count 3.46 M/uL (3.93-5.22); White Blood Count 6.76 K/ul (4.8-10.8)
[2022-05-21 06:56] LABS: BUN Creatinine Ratio 27.5 (10-20); Calcium 9.1 mg/dl (8.5-10.1); Creatinine Clr Calc Pharmacy 89.2 ml/min; Est GFR (African American) 72.7 ml/min; Est GFR (Non-African American) 62.8 ml/min; Potassium 4.5 mmol/L (3.5-5.1)
[2022-05-21] MEDS: FUROSEMIDE 40 MG TAB PO SCH (07:36)
[2022-05-21] MEDS: POTASSIUM CHLORIDE 10 MEQ TABCR PO SCH (07:36)
[2022-05-21] MEDS: ASPIRIN 81 MG ECTAB PO SCH (07:36)
[2022-05-21] MEDS: DOCUSATE SODIUM 100 MG CAP PO SCH (07:36)
[2022-05-21] MEDS: lisinopril 20 MG TAB PO SCH (07:36)
[2022-05-21] MEDS: SACCHAROMYCES BOULARDII 250 MG CAP PO SCH (07:36)
[2022-05-21] MEDS: FERROUS SULFATE 325 MG TAB PO SCH (07:37)
[2022-05-21] MEDS ORDERED: LACTATED RINGER'S 1,000 ML IV SCH (07:45)
[2022-05-21] MEDS ORDERED: PIPERACILLIN/TAZOBACTAM 4.5 GM in DEXTROSE 5% 100 ML IV ONE (08:00)
[2022-05-21] MEDS: oxyCODONE HCL IR 5 MG TAB (IMMEDIATE RELEASE) PO PRN (08:10)
--- NOTE | 2022-05-21 08:46 | Discharge Summary ---
Date of Service May 21, 2022 Admission HPI Per Admitting Provider This is a 52-year-old female with past medical history significant for type 2 diabetes, hyperlipidemia, chronic sinusitis, hypertension, history of polyneuropathy, iron deficiency anemia due to chronic blood loss, myalgia due to simvastatin, history of tobacco abuse. The patient had this ongoing infection in the left lower extremity, initially treated with antibiotics, then she developed necrotizing fasciitis and she was transferred to [facility] in February and status post I and D at [place] and she was admitted to [facility] on 03/21/2022 and discharged on 03/30/2022. She is currently following with the wound clinic once a week and also home health nurse comes and checks on her three times a week. She is on wound VAC, but lately home health nurse felt that her erythema in the left lower extremity is getting worse and she is also having profuse draining. Last night, she had a lot of draining and she took off the wound VAC and she came here. She is hemodynamically stable. She denies any fevers. She is able to walk on that leg. There is no leukocytosis. UA is positive. Tibia, fibula x-ray showed some subcutaneous emphysema concerning for gas forming infection. ER physician talked to her doctors in [place]. Her surgeon at [place],Dr. Dennis, as there is no clinical sign of necrotizing fascitis and given the patient's wounds, and wound vac not working some gas was to be expected.So, they thought there was no need for emergent surgical procedure and at this time,and there is no need to transfer. The patient received Zosyn in the ER. Resting comfortably, hemodynamically stable. Denies any headache. No blurred visions, no earache, no runny nose, no sore throat, no cough, no chest pain, no shortness of breath, no nausea, no vomiting, no abdominal pain. Normal bowel and bladder movements. Admission Exam Per Admitting Provider GENERAL: The patient is of moderate build, not in acute distress. VITAL SIGNS: Temperature 36.3, pulse 63, respiratory rate 18, blood pressure 160/65, oxygen 94% on room air. HEENT: Pupils equal, round and reactive to light. Oral mucosa moist. NECK: No JVD, no neck masses. CARDIOVASCULAR: S1 and S2 heard. Regular rate and rhythm. No murmur, no gallop. RESPIRATORY SYSTEM: Normal AP diameter. No accessory muscle use. No wheezing or crackles. ABDOMEN: Soft, bowel sounds present, nontender, no distention. CENTRAL NERVOUS SYSTEM: Cranial nerves II through XII grossly intact, nonfocal. EXTREMITIES: Bilateral lower extremity edema present. The left lower extremity is erythematous and I and D surgical sites are draining. Principal Diagnosis Left lower extremity abscesses Discharge Exam GENERAL: The patient is of moderate build, not in acute distress. HEENT: Pupils equal, round and reactive to light. Oral mucosa moist. NECK: No JVD, no neck masses. CARDIOVASCULAR: S1 and S2 heard. Regular rate and rhythm. No murmur, no gallop. RESPIRATORY SYSTEM: Normal AP diameter. No accessory muscle use. No wheezing or crackles. ABDOMEN: Soft, bowel sounds present, nontender, no distention. CENTRAL NERVOUS SYSTEM: Cranial nerves II through XII grossly intact, nonfocal. EXTREMITIES:Patient with 3 areas on LLE. Medial and lateral leg wounds up to surface. Posterior/medial calf with wound, yellow slough for wound bed, boggy wound bed with edema surrounding Discharge Data Allergies Allergy/AdvReac Type Severity Reaction Status Date / Time No Known Allergies Allergy Unknown Verified 03/14/22 17:35 Consultations 05/17/22 21:46 ED Decision to Admit Stat 05/18/22 08:00 Consult General Surgery Routine 05/21/22 07:47 Burn CD for patient Stat Ordered Studies 05/18/22 01:35 US venous doppler LE BI Routine 05/20/22 15:59 CT tib/fib LT w con Urgent Hospital Course (1) Wound of lower extremity: (2) Diabetic foot infection: (3) HTN (hypertension): (4) Abscess of left lower leg: Plan This is a 52-year-old female with past medical history significant for type 2 diabetes, hyperlipidemia, chronic sinusitis, hypertension, history of polyneuropathy, iron deficiency anemia due to chronic blood loss, myalgia due to simvastatin, history of tobacco abuse. The patient had this ongoing infection in the left lower extremity, initially treated with antibiotics, then she developed necrotizing fasciitis and she was transferred to [facility] in February and status post I and D at [place] and she was admitted to [facility] on 03/21/2022 and discharged on 03/30/2022. She was noted to have increase erythema, swelling and discharge from her posterior side of her calf. On presentation to the ED, she was afebrile, normotensive and saturating well in room air. X-ray of Tibia/Fibula, bilateral soft tissue are nonspecific with subcutanesous emphysema is concerning for gas-forming infection. Finding was discussed with Dr. Beltrán at [place]. As per Dr. Beltrán, there was no need for transfer as some gas was expected because of the wound VAC. Patient was then admitted to medical surgical floor in the hospital. General surgery was consulted. Patient was started on local wound care. She was also started on Zosyn and daptomycin. Over the course of the hospitalization, patient reported increasing pain on her left leg and discharge from her posterior calf. CT scan with IV contrast was performed which showed several peripherally enhancing fluid and air and fluid-filled collections within the subcutaneous tissues, largest of which measures up to 18 cm in length suggestive of abscesses. The findings were discussed with surgeon ( Dr. Beavers) who recommended patient to be transferred to [place] for further care. Discussion was done with Dr. Moon at [place] and patient was accepted to medical surgical floor. All the current medication during the hospitalization are listed in the discharge summary. Patient was informed of the condition and she consented for transfer as well. Patient vitals were stable at the time of the transfer. Total Time Total Time Spent Total Time Spent (In Minutes): 60 Total Time Includes: Examination of the Patient, Discharge Planning, Medication Reconciliation, Communication With Other Providers and Other Discharge Plan Discharge Items Patient Disposition: Transfer Acute Care Hospital Reason For Visit: INFECTION, HTN Discharge Diagnosis: Left lower extremity abscess Activity: Per Instructions section Non-emergency contact: Primary Care Provider Call non-emergency contact if: you have any medication questions and your symptoms worsen Follow-up/Referrals: Mayra Holley DO [Primary Care Provider] - (Date & Time 05/23/2022 2:40 PM Provider Dhiraj Cade MD [facility] ) Diet: Carb Consistent or DM2 Addtl Attending Provider Instructions: You were admitted to the hospital with left lower extremity infection. You were treated with IV antibiotics ( daptomycin and Zosyn) while you were in the hospital. Lower extremity CT scan of her left leg showed several peripherally enhancing fluid and air and fluid-filled collections within subcutaneous tissue suggestive of abscess measuring up to 18.4 cm. You will need further care at [facility] to drain the abscess and possible debridement. The current inpatient medication are listed below. All the home medication are also listed below. Addtl Speech Language Specialist Provider Instructions: Date of Service: May 21, 2022 Current Inpatient Medications Acetaminophen (Acetaminophen 325 Mg Tab) 650 mg PO Q4H PRN PRN Reason: pain/fever Stop: 06/17/22 01:34 Last Admin: 05/20/22 20:49 Dose: 650 mg Aspirin (Aspirin 81 Mg Ectab) 81 mg PO DAILY MOHAMUD Stop: 06/17/22 08:59 Last Admin: 05/21/22 07:36 Dose: 81 mg Docusate Sodium (Docusate Sodium 100 Mg Cap) 100 mg PO BID MOHAMUD Stop: 06/17/22 08:59 Last Admin: 05/21/22 07:36 Dose: 100 mg Enoxaparin Sodium (Enoxaparin Inj 40 Mg/0.4 Ml Syr) 40 mg SQ Q12H MOHAMUD Stop: 06/17/22 05:59 Last Admin: 05/21/22 05:58 Dose: 40 mg Ferrous Sulfate (Ferrous Sulfate 325 Mg Tab) 325 mg PO DAILY MOHAMUD Stop: 06/17/22 08:59 Last Admin: 05/21/22 07:37 Dose: 325 mg Furosemide (Furosemide 40 Mg Tab) 40 mg PO DAILY MOHAMUD Stop: 06/17/22 08:59 Last Admin: 05/21/22 07:36 Dose: 40 mg Gabapentin (Gabapentin 300 Mg Cap) 300 mg PO HS MOHAMUD Stop: 06/17/22 20:59 Last Admin: 05/20/22 20:46 Dose: 300 mg Daptomycin 350 mg/ Syringe 7 mls @ 5 mls/min IV Q24H MOHAMUD; Protocol Stop: 05/25/22 02:59 Last Admin: 05/21/22 03:06 Dose: 5 mls/min Piperacillin Sod/Tazobactam (Sod 4.5 gm/ Dextrose) 120 mls @ 30 mls/hr IV Q8H MOHAMUD; Protocol Stop: 05/28/22 13:59 Lactated Ringer's (Lr) 1,000 mls @ 80 mls/hr IV .[id number] MOHAMUD Stop: 06/20/22 07:44 Last Admin: 05/21/22 08:00 Dose: 80 mls/hr Insulin Aspart (Insulin Aspart Per Unit) 0 units SC ACHS [facility] Stop: 06/17/22 01:59 Last Admin: 05/20/22 20:46 Dose: 1 units Insulin Detemir (Insulin Detemir) 22 units SQ BID [facility] Stop: 06/17/22 01:59 Last Admin: 05/20/22 20:47 Dose: 22 units Lisinopril (Lisinopril 20 Mg Tab) 20 mg PO BID [facility] Stop: 06/17/22 08:59 Last Admin: 05/21/22 07:36 Dose: 20 mg Ondansetron HCl (Ondansetron Inj 2 Mg/Ml 2 Ml Vial) 4 mg IV Q6H PRN PRN Reason: Nausea And Vomiting Stop: 06/17/22 21:27 Last Admin: 05/18/22 21:45 Dose: 4 mg Oxycodone HCl (Oxycodone Hcl Ir 5 Mg Tab (Immediate Release)) 5 mg PO Q6H PRN PRN Reason: Moderate Pain Stop: 06/01/22 01:34 Last Admin: 05/21/22 08:10 Dose: 5 mg Polyethylene Glycol (Polyethylene (Miralax) 17 Gm Pack) 17 gm PO DAILY PRN PRN Reason: Constipation Stop: 06/17/22 01:34 Potassium Chloride (Potassium Chloride 10 Meq Tabcr) 10 meq PO DAILY [facility] Stop: 06/17/22 08:59 Last Admin: 05/21/22 07:36 Dose: 10 meq Saccharomyces Boulardii (Saccharomyces Boulardii 250 Mg Cap) 250 mg PO BID [facility] Stop: 06/17/22 08:59 Last Admin: 05/21/22 07:36 Dose: 250 mg Pending Studies at Discharge: No Stand-Alone Forms: [facility] Skilled Items Patient informed of condition?: Yes DNR: No Discharge Level of Care: Other Communicable Disease: No Discharge Prognosis: Stable Lines: Peripheral IV Urinary Catheter: No Medications and DC Order Prescriptions: Continued acetaminophen [Tylenol] 325 mg Tablet 650 mg PO Q8 acetaminophen [Tylenol] 325 mg Tablet 650 mg PO Q4 PRN (Reason: Pain) aspirin [Aspir-Low] 81 mg Tablet,Delayed Release (Dr/Ec) 81 mg PO DAILY ferrous sulfate 325 mg (65 mg iron) Tablet 325 mg PO DAILY docusate sodium 100 mg Capsule 100 mg PO BID Saccharomyces boulardii 250 mg Capsule 250 mg PO BID furosemide [Lasix] 40 mg Tablet 40 mg PO DAILY potassium chloride 10 mEq Capsule, Extended Release 10 meq PO DAILY gabapentin 300 mg capsule 300 mg PO HS insulin lispro 100 unit/mL solution 9 unit subcut AC Levemir U-100 Insulin 100 unit/mL solution 22 unit SUBCUT BID lisinopril 20 mg Tablet 20 mg PO BID Discharge Orders: Discharge Order (Routine); Ordered 05/21/22 Ordered By: Parth Bobby/Other Patient Handouts: Managing Type 2 Diabetes Admission Data Admit Date/Time: 05/17/22 23:46 Attending Provider: Parth Pemberton Admit Provider: Alejandro Guzman Primary Care Provider: Mayra Holley Other Providers: Alejandro Guzman ; Amos Evans ; Brian Cameron ; Katina Nelson ; Chiquita Crespo ; Cornel Reed ; Lorne Calderon ; Mandy Valverde ; Alexandra Chand ; Antwon Marino Jr ; Astrid Kelly ; Travis Hernandez ; Yanna Zhao ; [place],[facility]
[2022-05-21] MEDS: INSULIN ASPART PER UNIT SC SCH (09:02)
[2022-05-21] MEDS ORDERED: Nursing to Pharmacy Communication SCH (09:30)
[2022-05-21] MEDS: INSULIN DETEMIR SQ SCH (09:40)
[2022-05-21] MEDS ORDERED: INSULIN ASPART PER UNIT SC SCH (12:00)
[2022-05-21] MEDS ORDERED: PIPERACILLIN/TAZOBACTAM 4.5 GM in DEXTROSE 5% 100 ML IV SCH (14:00)
== END 2022-05-21 11:15 | disposition short-term general hospital (02) | DRG 638 ==
LOC: ED 17:37 → 3E 23:46
DX: Z68.31 Body mass index [BMI] 31.0-31.9, adult; E78.5 Hyperlipidemia, unspecified; Z83.3 Family history of diabetes mellitus; Z79.82 Long term (current) use of aspirin; E11.42 Type 2 diabetes mellitus with diabetic polyneuropathy; Z79.4 Long term (current) use of insulin; E66.9 Obesity, unspecified; Z86.718 Personal history of other venous thrombosis and embolism; E11.69 Type 2 diabetes mellitus with other specified complication; L02.416 Cutaneous abscess of left lower limb; Z87.891 Personal history of nicotine dependence; I10 Essential (primary) hypertension

== ENCOUNTER 2023-03-13 14:08 | Inpatient (IN) ==
--- NOTE | 2023-03-13 14:53 | ED Triage Note ---
Date of Service March 13, 2023 History of Present Illness This patient was briefly evaluated while in triage. An abbreviated physical exam was performed. This patient is a 53-year-old Female who presents to the ED for evaluation of left foot and leg pain. History of chronic infections to the left leg for the past year. Now having a lot more pain in the left foot into her heel over the past couple days. Unable to walk now b/c of the symptoms. No direct injury or trauma. The infections are not healing well per patient and has been unable to get into wound care because of transportation issues. No symptoms in the right leg per patient. Physical Exam GENERAL: Non-toxic and in no acute distress. HEENT: Pupils equal. No obvious scleral icterus. HEART: Regular rate and rhythm. LUNGS: Clear to auscultation. No accessory muscle use. NEURO: Alert and oriented. No obvious neurological deficits on quick neuro exam. MUSCULOSKELETAL: The left lower extremity is bandaged and the bandage was not removed in triage. The patient is tender to palpation over the entire left foot. No tenderness to palpation of the left tib-fib or left calf. Initial orders for labs and / or imaging were placed and patient was placed in the waiting area until a bed is available. Please see further documentation for the full ED course.
--- NOTE | 2023-03-13 16:08 | XRay Report ---
XR foot LT min 3V routine CLINICAL HISTORY: Left foot pain/infection COMPARISON: Left foot radiographs October 02, 2019. MRI of the left foot February 28, 2022. FINDINGS: There is extensive soft tissue swelling of the left foot as well as soft tissue irregulari ty and suspected wound of the left first toe. No bony erosions are identified. There is no fracture. Plantar calcaneal spur is noted. Mild degenerative changes within several articulations of the left p resent. IMPRESSION: 1. No radiographic evidence for acute osteomyelitis within the left foot. 2. Extensive soft tissue swelling, soft tissue irregularity and suspected wound of the left first toe . ACT 112: Negative or not required by law. Electronically signed by: Roberto Knox M.D. 03/13/2023 4:06 PM
[2023-03-13] MEDS ORDERED: PIPERACILLIN/TAZOBACTAM 4.5 GM in DEXTROSE 5% 100 ML IV ONE (17:21)
--- NOTE | 2023-03-13 17:38 | Emergency Department Note ---
Impression & Plan Cellulitis of left leg, Type 2 diabetes mellitus, with long-term current use of insulin, Acute hyperglycemia ED Provider Note CHIEF COMPLAINT: Right greater than left foot pain HISTORY OF PRESENT ILLNESS: This 53 yo female patient with past medical history uncontrolled diabetes, morbid obesity, diabetic foot and leg infections, necrotizing fasciitis of left lower extremity, hypertension and tobacco abuse presents to the emergency department with complaints of increased left lower extremity pain over the last several days. Patient states she has a history approximately 1 year ago of large abscess in the left lower extremity. She was sent to [place] with "sepsis" and required surgery. Patient states she used to follow with wound care postoperatively but she could not get into them any longer because they were "backed up." She began seeing a motorcycle designer and her wounds were healing well however her insurance changed. She was no longer able to get assistance with rides to the office and her appointments were no longer covered. Nonetheless the patient states it feels as though she is walking on marbles today mostly in the left foot but sometimes in the right foot. REVIEW OF SYSTEMS: A review of systems was performed with positives and pertinent negatives listed in the history of present illness. 10 systems were reviewed and are otherwise negative. ALLERGIES: see below MEDICATIONS: see below PMH: see below SOCIAL HISTORY: see below DDx: Cellulitis, necrotizing fasciitis, osteomyelitis, diabetic neuropathy, DVT, trauma, among others PHYSICAL EXAM: Vital signs reviewed. General: Chronically ill-appearing 53-year-old female, in no significant distress. Sitting in a wheelchair in the waiting room. HEENT: No scleral icterus, PERRLA, neck supple. Atraumatic. Cardiovascular: Regular rate and rhythm, no extra sounds. Pulmonary: Clear to auscultation bilaterally, normal work of breathing. Abdomen: Soft, obese, nontender, nondistended, positive bowel sounds. Musculoskeletal: Massive lymphedema to the bilateral lower extremities, left distal extremity reveals macerated tissue with poorly healed prior fasciotomy scars. Neurologic: Patient awake alert and oriented x 3, speech is clear Skin: Macerated tissue to the left linares, calf with chronic scaling of the bilateral feet EMERGENCY DEPARTMENT COURSE/MDM: This patient was evaluated and appeared to be in no significant distress. External medical records were reviewed. IV access was obtained and laboratory work was drawn. The patient was placed on ekg monitor tech and noted to be in a normal sinus rhythm. Physical examination reveals macerated tissue of the left distal lower extremity, particularly in the lateral calf with diffuse lymphedema and skin scaling of the bilateral lower extremi ties. CT imaging of the lower extremity was performed and reveals no fluid collection but diffuse swelling. The patient was medicated with IV Zosyn and daptomycin. Cultures are pending. Laboratory work reveals a leukocytosis, lactate of 1.9. Glucose is 408. Patient did receive SQ regular insulin 8 units with moderate improvement. A second dose of IV regular insulin 8 units was given. The patient's case was discussed with the hospitalist service to evaluate the patient for admission and further management. MONITORING: An order for cardiac monitoring was placed and the patient is noted to be in a normal sinus rhythm at 77 beats per minute. RADIOLOGY: X-ray of the left foot to my interpretation reveals no evidence of acute fracture with diffuse soft tissue swelling, otherwise defer to radiology. CT imaging of the left foot and leg per radiology reveals no acute abnormality of the foot, diffuse edema innumerable varicosities with no rim-enhancing fluid collection in the plantar DISPOSITION: Admission Past Med/Surg History Medical History (Updated 03/15/23 @ 22:12 by Lynette Gaming MD) Anemia Back pain Cellulitis of left lower extremity Depression with anxiety Diabetes type 2, uncontrolled Diabetic peripheral neuropathy associated with type 2 diabetes mellitus Dysfunctional uterine bleeding Dyslipidemia Fatigue Hirsutism History of DVT (deep vein thrombosis) HTN (hypertension) Insomnia Loss of protective sensation of skin of foot Obesity Personal history of diabetic foot ulcer Tobacco use Type 2 diabetes mellitus with complications Type 2 diabetes mellitus, with long-term current use of insulin Varicose veins of both lower extremities Vitamin D deficiency Xerosis cutis Surgical History H/O tooth extraction History of History of cholecystectomy History of endometrial ablation History of facial surgery History of hysterectomy History of incision and drainage left foot by Dr. Haq on 10-03-19. History of nasal polypectomy History of tubal ligation Family History Father Dyslipidemia Prostate cancer Diabetes Lung cancer Mother Lung cancer Hypothyroidism Brother Coronary heart disease Asthma Grandfather (Maternal) Myocardial infarction Grandmother (Maternal) Myocardial infarction Grandmother (Paternal) Breast cancer Diabetes Social History Smoking Status: Never smoker Tobacco Type: Cigarettes Hx Alcohol Use: No Hx Substance Use: No Preferred Language: Luxembourgish Communication Ability: Effective Bleach Chlorinator Required: No Beliefs That Will Affect Care: Spiritual marital status: Single Current Living Situation: Alone Current Living Situation Comment: Home, self care Feels Safe at Home: Yes Assistive Devices: Cane and Walker Allergies Allergies Allergy/AdvReac Type Severity Reaction Status Date / Time No Known Allergies Allergy Unknown Verified 03/13/23 19:44 Home Meds Home Medications Medication Instructions Recorded Confirmed Saccharomyces boulardii 250 mg 250 mg PO BID 03/14/22 03/13/23 capsule aspirin 81 mg tablet,delayed 81 mg PO DAILY 03/14/22 03/13/23 release docusate sodium 100 mg capsule 100 mg PO BID PRN Constipation 03/14/22 03/13/23 ferrous sulfate 325 mg (65 mg 325 mg PO DAILY 03/14/22 03/13/23 iron) tablet furosemide 40 mg tablet (Lasix) 40 mg PO QAM 05/17/22 03/13/23 gabapentin 300 mg capsule 600 mg PO HS 05/17/22 03/13/23 insulin detemir U-100 100 unit/mL 25 unit subcut BID 05/17/22 03/13/23 subcutaneous solution (Levemir U-100 Insulin) insulin lispro 100 unit/mL 15 unit subcut AC 05/17/22 03/13/23 subcutaneous solution lisinopril 20 mg tablet 20 mg PO BID 05/17/22 03/13/23 potassium chloride 10 mEq 10 meq PO BID 05/17/22 03/13/23 capsule,extended release acetaminophen 500 mg tablet 1,000 mg PO Q6H PRN Pain 03/13/23 03/13/23 (Tylenol Extra Strength) cyanocobalamin (vitamin B-12) 1,000 mcg PO DAILY 03/13/23 03/13/23 1,000 mcg tablet (Vitamin B-12) metoprolol succinate 25 mg 25 mg PO QAM 03/13/23 03/13/23 tablet,extended release 24 hr tramadol 50 mg tablet 50 mg PO Q6H PRN .Moderate pain 03/13/23 03/13/23 triamcinolone acetonide 0.1 % 1 applic topical BID 03/13/23 03/13/23 topical cream Results & Data (ED) Vital Signs Vital Signs - 24 hr 03/13/23 14:49 03/13/23 19:39 03/13/23 19:34 Temperature 36.2 C L 36.9 C Temperature Source Temporal Artery Scan Oral Pulse Rate 88 97 H Pulse Rate [Apical] Respiratory Rate 18 Respiratory Effort / Characteristics Non-Labored Respiratory Depth Normal Respiratory Pattern Regular Blood Pressure 220/111 H Blood Pressure [Left Arm] Blood Pressure Mean 147 Blood Pressure Mean [Left Arm] Blood Pressure Position [Left Arm] Pulse Oximetry 100 Oxygen Delivery Method Room Air Sepsis Recent Fever Within 48 Hours No Sepsis New/Unexplained Change in Mental Status N/A Sepsis Action Taken by Nursing No Action Required 03/13/23 20:22 03/13/23 22:50 03/13/23 23:47 Temperature Temperature Source Pulse Rate Pulse Rate [Apical] 96 H 77 71 Respiratory Rate 20 18 18 Respiratory Effort / Characteristics Non-Labored Respiratory Depth Normal Respiratory Pattern Blood Pressure Blood Pressure [Left Arm] 183/105 H 193/144 H 181/102 H Blood Pressure Mean Blood Pressure Mean [Left Arm] 131 160 128 Blood Pressure Position [Left Arm] Lying Pulse Oximetry 96 100 100 Oxygen Delivery Method Room Air Room Air Room Air Sepsis Recent Fever Within 48 Hours Sepsis New/Unexplained Change in Mental Status Sepsis Action Taken by Nursing 03/14/23 00:34 Temperature Temperature Source Pulse Rate Pulse Rate [Apical] 74 Respiratory Rate 18 Respiratory Effort / Characteristics Non-Labored Respiratory Depth Normal Respiratory Pattern Blood Pressure Blood Pressure [Left Arm] 181/95 H Blood Pressure Mean Blood Pressure Mean [Left Arm] 123 Blood Pressure Position [Left Arm] Pulse Oximetry 97 Oxygen Delivery Method Room Air Sepsis Recent Fever Within 48 Hours Sepsis New/Unexplained Change in Mental Status Sepsis Action Taken by [facility] Medications Current Medication List: was personally reviewed by me Laboratory Data Attestation: I reviewed the patient's lab results. 03/13/23 18:20 03/13/23 18:20 Lab Results 03/13/23 03/13/23 03/13/23 Range/Units 18:20 18:20 18:20 WBC 13.05 H (4.8-10.8) K/ul RBC 4.71 (4.20-5.40) M/uL Hgb 13.0 (12.0-16.0) g/dl Hct 40.0 (37.0-47.0) % MCV 84.9 (80.0-100.0) fL MCH 27.6 (25.0-34.0) pg MCHC 32.5 (32.0-36.0) g/dL RDW Std Deviation 40.2 (36.4-46.3) fL RDW Coeff of Mya 13.0 (11.5-14.5) % Plt Count 292 (130-400) K/uL MPV 11.1 (9.4-12.4) fL Immature Gran % (Auto) 0.4 % Neut % (Auto) 78.3 % Lymph % (Auto) 15.1 % [place] % (Auto) 4.9 % Eos % (Auto) 0.8 % Baso % (Auto) 0.5 % Neut # (Auto) 10.21 H (1.40-6.50) K/uL Lymph # (Auto) 1.97 (1.2-3.4) K/uL [place] # (Auto) 0.64 H (0.11-0.59) K/uL Eos # (Auto) 0.11 (0-0.50) K/uL Baso # (Auto) 0.07 (0-0.2) K/uL Immature Gran # (Auto) 0.05 (0.01-0.20) K/uL Sodium 131 L (136-145) mmol/L Potassium 3.7 (3.5-5.1) mmol/L Chloride 95 L (98-107) mmol/L Carbon Dioxide 28 (21-32) mmol/L Anion Gap 8 (3-11) BUN 9 (6-23) mg/dl Creatinine 0.78 (0.6-1.2) mg/dl Est Cr Clr Drug Dosing Not Reportable Est GFR ( Amer) 99.9 ml/min Est GFR (Non-Af Amer) 86.2 ml/min BUN/Creatinine Ratio 11.5 (10-20) Glucose 408 H* (70-99(Fasting)) mg/dl POC Glucose (70-99) mg/dl Lactate 1.9 (0.4-2.0) mmol/L Calcium 9.5 (8.6-10.3) mg/dl Total Bilirubin 0.5 (0.2-1.0) mg/dl AST 11 L (13-39) U/L ALT 8 (7-52) U/L Alkaline Phosphatase 89 (34-104) U/L Total Protein 7.7 (6.0-8.3) gm/dl Albumin 3.1 L (3.4-5.0) gm/dl Globulin 4.6 H (2.5-4.0) gm/dl Albumin/Globulin Ratio 0.7 L (0.9-2) Procalcitonin (0-0.5) ng/ml Urine Color Urine Appearance (Clear) Urine pH (4.5-7.5) Ur Specific [place] (1.000-1.030) Urine Protein (Negative) Urine Glucose (UA) (Negative) Urine Ketones (Negative) Urine Blood (Negative) Urine Nitrite (Negative) Urine Bilirubin (Negative) Urine Urobilinogen (Negative) Ur Leukocyte Esterase (Negative) Urine WBC (Auto) (0-5) /hpf Urine RBC (Auto) (0-4) /hpf U Hyaline Cast (Auto) (0-5) /lpf U Epithel Cells (Auto) (0-5) /lpf Urine Bacteria (Auto) (Negative) Urine Yeast (None Prsent) 03/13/23 03/13/23 03/13/23 Range/Units 18:20 19:38 21:19 WBC (4.8-10.8) K/ul RBC (4.20-5.40) M/uL Hgb (12.0-16.0) g/dl Hct (37.0-47.0) % MCV (80.0-100.0) fL MCH (25.0-34.0) pg MCHC (32.0-36.0) g/dL RDW Std Deviation (36.4-46.3) fL RDW Coeff of Mya (11.5-14.5) % Plt Count (130-400) K/uL MPV (9.4-12.4) fL Immature Gran % (Auto) % Neut % (Auto) % Lymph % (Auto) % [place] % (Auto) % Eos % (Auto) % Baso % (Auto) % Neut # (Auto) (1.40-6.50) K/uL Lymph # (Auto) (1.2-3.4) K/uL [place] # (Auto) (0.11-0.59) K/uL Eos # (Auto) (0-0.50) K/uL Baso # (Auto) (0-0.2) K/uL Immature Gran # (Auto) (0.01-0.20) K/uL Sodium (136-145) mmol/L Potassium (3.5-5.1) mmol/L Chloride (98-107) mmol/L Carbon Dioxide (21-32) mmol/L Anion Gap (3-11) BUN (6-23) mg/dl Creatinine (0.6-1.2) mg/dl Est Cr Clr Drug Dosing Est GFR ( Amer) ml/min Est GFR (Non-Af Amer) ml/min BUN/Creatinine Ratio (10-20) Glucose (70-99(Fasting)) mg/dl POC Glucose 388 H* (70-99) mg/dl Lactate (0.4-2.0) mmol/L Calcium (8.6-10.3) mg/dl Total Bilirubin (0.2-1.0) mg/dl AST (13-39) U/L ALT (7-52) U/L Alkaline Phosphatase (34-104) U/L Total Protein (6.0-8.3) gm/dl Albumin (3.4-5.0) gm/dl Globulin (2.5-4.0) gm/dl Albumin/Globulin Ratio (0.9-2) Procalcitonin < 0.05 (0-0.5) ng/ml Urine Color Yellow Urine Appearance Cloudy A (Clear) Urine pH 5.5 (4.5-7.5) Ur Specific [place] 1.030 (1.000-1.030) Urine Protein 3+ H (Negative) Urine Glucose (UA) 3+ H (Negative) Urine Ketones Negative (Negative) Urine Blood 2+ H (Negative) Urine Nitrite Negative (Negative) Urine Bilirubin Negative (Negative) Urine Urobilinogen Negative (Negative) Ur Leukocyte Esterase Negative (Negative) Urine WBC (Auto) >30 H (0-5) /hpf Urine RBC (Auto) 5-10 H (0-4) /hpf U Hyaline Cast (Auto) 1-5 (0-5) /lpf U Epithel Cells (Auto) >30 H (0-5) /lpf Urine Bacteria (Auto) 4+ H (Negative) Urine Yeast Budding A (None Prsent) Administered Medications Acetaminophen (Acetaminophen 500 Mg Tab) 1,000 mg PO Q6H PRN PRN Reason: Pain Stop: 04/13/23 01:38 Last Admin: 03/15/23 18:31 Dose: 1,000 mg Documented By: Admin: 03/14/23 16:27 Dose: 1,000 mg Documented By: Admin: 03/14/23 05:43 Dose: 1,000 mg Documented By: DAKSHA Aspirin (Aspirin 81 Mg Ectab) 81 mg PO DAILY MOHAMUD Stop: 04/13/23 08:59 Last Admin: 03/15/23 08:25 Dose: 81 mg Documented By: Admin: 03/14/23 09:11 Dose: 81 mg Documented By: BRIAN Carvedilol (Carvedilol 6.25 Mg Tab) 6.25 mg PO BIDM MOHAMUD Stop: 04/13/23 07:59 Last Admin: 03/15/23 17:15 Dose: 6.25 mg Documented By: Admin: 03/15/23 08:25 Dose: 6.25 mg Documented By: Admin: 03/14/23 19:11 Dose: 6.25 mg Documented By: Admin: 03/14/23 09:11 Dose: 6.25 mg Documented By: BRIAN Cyanocobalamin (Cyanocobalamin (B-12) 500 Mcg Tablet) 1,000 mcg PO DAILY MOHAMUD Stop: 04/13/23 08:59 Last Admin: 03/15/23 08:25 Dose: 1,000 mcg Documented By: Admin: 03/14/23 09:11 Dose: 1,000 mcg Documented By: BRIAN Enoxaparin Sodium (Enoxaparin Inj 40 Mg/0.4 Ml Syr) 40 mg SQ Q12H MOHAMUD Stop: 04/13/23 05:59 Last Admin: 03/15/23 17:15 Dose: 40 mg Documented By: Admin: 03/15/23 05:43 Dose: 40 mg Documented By: Admin: 03/14/23 19:11 Dose: 40 mg Documented By: Admin: 03/14/23 06:12 Dose: 40 mg Documented By: RUY Ferrous Sulfate (Ferrous Sulfate 325 Mg Tab) 325 mg PO DAILY MOHAMUD Stop: 04/13/23 08:59 Last Admin: 03/15/23 08:26 Dose: 325 mg Documented By: Admin: 03/14/23 09:11 Dose: 325 mg Documented By: BRIAN Furosemide (Furosemide 40 Mg Tab) 40 mg PO QAM MOHAMUD Stop: 04/13/23 08:59 Last Admin: 03/15/23 08:25 Dose: 40 mg Documented By: Admin: 03/14/23 09:11 Dose: 40 mg Documented By: BRIAN Gabapentin (Gabapentin 300 Mg Cap) 600 mg PO MOHAMUD Stop: 04/13/23 01:38 Last Admin: 03/15/23 20:17 Dose: 600 mg Documented By: [facility] Admin: 03/14/23 20:37 Dose: 600 mg Documented By: [facility] Admin: 03/14/23 03:29 Dose: 600 mg Documented By: RUY Piperacillin Sod/Tazobactam (Sod 4.5 gm/ Dextrose) 120 mls @ 30 mls/hr IV Q8H MOHAMUD; Protocol Stop: 03/21/23 03:59 Last Admin: 03/15/23 20:23 Dose: 30 mls/hr Documented By: [facility] Infusion: 03/15/23 17:14 Dose: 0 mls/hr Documented By: Admin: 03/15/23 12:41 Dose: 30 mls/hr Documented By: Infusion: 03/15/23 10:30 Dose: 0 mls/hr Documented By: Admin: 03/15/23 05:43 Dose: 30 mls/hr Documented By: [facility] Infusion: 03/15/23 02:00 Dose: 0 mls/hr Documented By: [facility] Admin: 03/14/23 21:57 Dose: 30 mls/hr Documented By: [facility] Infusion: 03/14/23 19:00 Dose: 0 mls/hr Documented By: [facility] Admin: 03/14/23 13:07 Dose: 30 mls/hr Documented By: Infusion: 03/14/23 10:15 Dose: 0 mls/hr Documented By: Admin: 03/14/23 06:12 Dose: 30 mls/hr Documented By: RUY Daptomycin 400 mg/ Syringe 8 mls @ 4 mls/min IV Q24H MOHAMUD; Protocol Stop: 03/22/23 10:59 Last Admin: 03/15/23 12:42 Dose: 4 mls/min Documented By: JOSHUA Insulin Aspart (Insulin Aspart Per Unit Charge) 0 units SC ACHS COUNTS INCLUDE 234 BEDS AT THE [facility] Stop: 04/13/23 02:14 Last Admin: 03/15/23 20:25 Dose: Not Given Documented By: Admin: 03/15/23 17:52 Dose: 8 units Documented By: JOSHUA Co-signed By: ANDREY Admin: 03/15/23 12:44 Dose: 8 units Documented By: JOSHUA Co-signed By: ANDREY Admin: 03/15/23 08:34 Dose: 19 units Documented By: JOSHUA Co-signed By: ANDREY Admin: 03/14/23 21:12 Dose: 5 units Documented By: OSVALDO Co-signed By: VAUGHN Admin: 03/14/23 18:24 Dose: 4 units Documented By: JOVANY Co-signed By: FCO Admin: 03/14/23 13:51 Dose: 11 units Documented By: BRIAN Co-signed By: LENNIE Admin: 03/14/23 09:11 Dose: 10 units Documented By: BRIAN Co-signed By: LENNIE Admin: 03/14/23 04:05 Dose: 13 units Documented By: RUY Co-signed By: CORY Insulin Glargine (Lantus Per Unit Charge) 55 units SC DAILY COUNTS INCLUDE 234 BEDS AT THE [facility] Stop: 04/14/23 08:59 Last Admin: 03/15/23 08:33 Dose: 55 units Documented By: JOSHUA Co-signed By: ANDREY Lactic Acid (Ammonium Lactate 12% Lotion 225 Gm Btl) 1 gm EXT BID MOHAMUD Stop: 04/14/23 20:59 Last Admin: 03/15/23 20:16 Dose: 1 gm Documented By: OSVALDO Lisinopril (Lisinopril 20 Mg Tab) 20 mg PO BID MOHAMUD Stop: 04/13/23 01:38 Last Admin: 03/15/23 20:18 Dose: 20 mg Documented By: [facility] Admin: 03/15/23 08:27 Dose: 20 mg Documented By: Admin: 03/14/23 20:35 Dose: 20 mg Documented By: Admin: 03/14/23 09:33 Dose: 20 mg Documented By: Admin: 03/14/23 03:28 Dose: 20 mg Documented By: RUY Potassium Chloride (Potassium Chloride 10 Meq Tabcr) 10 meq PO BID17 MOHAMUD Stop: 04/13/23 08:59 Last Admin: 03/15/23 17:15 Dose: 10 meq Documented By: RLDi Admin: 03/15/23 08:26 Dose: 10 meq Documented By: Admin: 03/14/23 17:40 Dose: 10 meq Documented By: [facility] Admin: 03/14/23 09:11 Dose: 10 meq Documented By: BRIAN Saccharomyces Boulardii (Saccharomyces Boulardii 250 Mg Cap) 250 mg PO BID MOHAMUD Stop: 04/13/23 08:59 Last Admin: 03/15/23 20:18 Dose: 250 mg Documented By: [facility] Admin: 03/15/23 08:26 Dose: 250 mg Documented By: Admin: 03/14/23 20:36 Dose: 250 mg Documented By: [facility] Admin: 03/14/23 09:11 Dose: 250 mg Documented By: BRIAN Triamcinolone Acetonide (Triamcinolone Acet 0.1% Cr 15 Gm Tube) 1 appln TOP BID MOHAMUD Stop: 04/13/23 08:59 Last Admin: 03/15/23 20:19 Dose: 1 appln Documented By: [facility] Admin: 03/15/23 08:27 Dose: 1 appln Documented By: Admin: 03/14/23 21:57 Dose: 1 appln Documented By: [facility] Admin: 03/14/23 09:14 Dose: 1 appln Documented By: BRIAN Discontinued Medications Acetaminophen (Acetaminophen 500 Mg Tab) 1,000 mg PO NOW STA Stop: 03/13/23 21:49 Last Admin: 03/13/23 22:38 Dose: 1,000 mg Documented By: QGV Carvedilol (Carvedilol 6.25 Mg Tab) 6.25 mg PO NOW STA Stop: 03/13/23 22:15 Last Admin: 03/13/23 23:52 Dose: 6.25 mg Documented By: AKBAR Piperacillin Sod/Tazobactam (Sod 4.5 gm/ Dextrose) 120 mls @ 200 mls/hr IV NOW ONE; Protocol Stop: 03/13/23 17:56 Last Infusion: 03/13/23 20:26 Dose: 0 mls/hr Documented By: Admin: 03/13/23 18:50 Dose: 200 mls/hr Documented By: SWNadia Sodium Chloride (Nss 1000ml) 1,000 mls @ 75 mls/hr IV .[id number] MOHAMUD Stop: 03/14/23 15:04 Last Infusion: 03/14/23 16:52 Dose: 0 mls/hr Documented By: Admin: 03/14/23 03:30 Dose: 75 mls/hr Documented By: RUY Doxycycline Hyclate 100 mg/ (Dextrose) 110 mls @ 50 mls/hr IV BID@0200,1600 COUNTS INCLUDE 234 BEDS AT THE [facility] Stop: 03/21/23 01:59 Last Infusion: 03/15/23 06:31 Dose: 0 mls/hr Documented By: Admin: 03/15/23 03:09 Dose: 50 mls/hr Documented By: Infusion: 03/14/23 21:42 Dose: 0 mls/hr Documented By: Admin: 03/14/23 17:29 Dose: 50 mls/hr Documented By: Infusion: 03/14/23 06:07 Dose: 0 mls/hr Documented By: Admin: 03/14/23 03:30 Dose: 50 mls/hr Documented By: RUY Insulin Glargine (Lantus Per Unit Charge) 50 units SC ONE ONE Stop: 03/14/23 02:16 Last Admin: 03/14/23 03:29 Dose: 50 units Documented By: RUY Co-signed By: LOUISE Insulin Human Regular (Novolin-R Insulin Per Unit Charge) 8 units IV NOW STA Stop: 03/13/23 19:37 Last Admin: 03/13/23 20:25 Dose: 8 units Documented By: EmmaGKaren Co-signed By: NATIVIDAD Insulin Human Regular (Novolin-R Insulin Per Unit Charge) 8 units SC NOW STA Stop: 03/13/23 21:49 Last Admin: 03/13/23 22:38 Dose: 8 units Documented By: QGV Co-signed By: NATIVIDAD Ioversol (Optiray 320 100ml) 92 ml IV ONCE ONE Stop: 03/13/23 19:50 Last Admin: 03/13/23 19:59 Dose: 92 ml Documented By: GHAZALA Imaging Data Radiologist's Impression: Foot X-Ray 03/13/23 14:53 XR foot LT min 3V routine CLINICAL HISTORY: Left foot pain/infection COMPARISON: Left foot radiographs October 02, 2019. MRI of the left foot February 28, 2022. FINDINGS: There is extensive soft tissue swelling of the left foot as well as soft tissue irregularity and suspected wound of the left first toe. No bony erosions are identified. There is no fracture. Plantar calcaneal spur is noted. Mild degenerative changes within several articulations of the left present. IMPRESSION: 1. No radiographic evidence for acute osteomyelitis within the left foot. 2. Extensive soft tissue swelling, soft tissue irregularity and suspected wound of the left first toe. ACT 112: Negative or not required by law. Electronically signed by: Roberto Knox M.D. 03/13/2023 4:[address] 03/13/23 17:41 Exam(s): CT LEFT FOOT With Contrast IV Amt: 95ML OPTIRAY 320 EXAM: CT Left Lower Extremity With Intravenous Contrast, Foot CLINICAL HISTORY: Reason for exam: pain with walking, h/o necrotizing abscess. TECHNIQUE: Axial computed tomography images of the left foot with intravenous contrast. CTDI is 10.49 mGy and DLP is 640.55 mGy-cm. Automated exposure control was utilized for the study. A dose lowering technique was utilized adhering to the principles of ALARA. CONTRAST: Patient received 95ML OPTIRAY 320 of IV contrast COMPARISON: No relevant prior studies available. FINDINGS: Bones/joints: Unremarkable. No acute fracture. No dislocation. Soft tissues: Diffuse soft tissue edema. No radiopaque foreign body. IMPRESSION: No acute findings in the left foot. Electronically signed by: Ector Patrick MD 03/13/23 20:[address] 03/13/23 17:41 Exam(s): CT EXTREMITY LEFT LOWER With Contrast IV Amt: 95ML OPTIRAY 320 EXAM: CT Left Lower Extremity With Intravenous Contrast CLINICAL HISTORY: Reason for exam: SQ abscess, h/o large necrotizing infection 1 yr a. TECHNIQUE: Axial computed tomography images of the left lower extremity with intravenous contrast. CTDI is 10.49 mGy and DLP is 632.43 mGy-cm. Automated exposure control was utilized for the study. A dose lowering technique was utilized adhering to the principles of ALARA. CONTRAST: Patient received 95ML OPTIRAY 320 of IV contrast COMPARISON: No relevant prior studies available. FINDINGS: Bones/joints: Unremarkable. No acute fracture. No dislocation. Soft tissues: subcutaneous edema. Innumerable varicosities. Other findings: No rim-enhancing collection present. IMPRESSION: Diffuse edema innumerable varicosities with no rim-enhancing fluid collection in the plantar Electronically signed by: Ector Patrick MD 03/13/23 20:44 PM Discharge Plan Visit Data Chief Complaint: Leg Injury/Pain Stated Complaint: L LEG PAIN, CANT WALK ED Provider: Lynette Gaming Discharge Problem: Cellulitis of left leg, Type 2 diabetes mellitus, with long-term current use of insulin, Acute hyperglycemia Patient Disposition: Admitted As Inpatient Discharge Instructions Interventions: ED Discharge Assessment Last Done: 03/14/23 01:39
[2023-03-13 19:01] LABS: Basophils # (auto) 0.07 K/uL (0-0.2); Basophils % (auto) 0.5 %; Eosinophils # (auto) 0.11 K/uL (0-0.50); Eosinophils % (auto) 0.8 %; Immature Granulocytes # (auto) 0.05 K/uL (0.01-0.20); Immature Granulocytes % (auto) 0.4 %; Lymphocytes # (auto) 1.97 K/uL (1.2-3.4); Lymphocytes % (auto) 15.1 %; Mean Corpuscular Hemoglobin 27.6 pg (25.0-34.0); Mean Corpuscular Hgb Conc 32.5 g/dL (32.0-36.0); Mean Corpuscular Volume 84.9 fL (80.0-100.0); Mean Platelet Volume 11.1 fL (9.4-12.4); Monocytes # (auto) 0.64 K/uL (0.11-0.59); Monocytes % (auto) 4.9 %; Neutrophils # (auto) 10.21 K/uL (1.40-6.50); Neutrophils % (auto) 78.3 %; Platelet Count 292 K/uL (130-400); RDW Standard Deviation 40.2 fL (36.4-46.3); Red Blood Count 4.71 M/uL (4.20-5.40); White Blood Count 13.05 K/ul (4.8-10.8)
[2023-03-13 19:19] LABS: Alanine Aminotransferase 8 U/L (7-52); Albumin Globulin Ratio 0.7 (0.9-2); Albumin Level 3.1 gm/dl (3.4-5.0); Alkaline Phosphatase 89 U/L (34-104); Anion Gap 8 (3-11); Aspartate Aminotransferase 11 U/L (13-39); BUN Creatinine Ratio 11.5 (10-20); Bilirubin,Total 0.5 mg/dl (0.2-1.0); Blood Urea Nitrogen 9 mg/dl (6-23); Calcium 9.5 mg/dl (8.6-10.3); Carbon Dioxide 28 mmol/L (21-32); Chloride 95 mmol/L (98-107); Est GFR (African American) 99.9 ml/min; Est GFR (Non-African American) 86.2 ml/min; Globulin 4.6 gm/dl (2.5-4.0); Glucose 408 mg/dl (70-99(Fasting)); Potassium 3.7 mmol/L (3.5-5.1); Sodium 131 mmol/L (136-145); Total Protein 7.7 gm/dl (6.0-8.3)
[2023-03-13] MEDS ORDERED: NovoLIN-R INSULIN PER UNIT CHARGE IV STA (19:36)
[2023-03-13] MEDS ORDERED: OPTIRAY 320 100ml IV ONE (19:49)
[2023-03-13 20:26] LABS: Appearance Urine Cloudy (Clear); Bacteria Urine Automated 4+ (Negative); Bilirubin Urine Negative (Negative); Blood Urine 2+ (Negative); Color Urine Yellow; Epithelial Cell Urine Auto >30 /lpf (0-5); Glucose Urine UA 3+ (Negative); Ketones Urine Negative (Negative); Leukocyte Esterase Urine Negative (Negative); Nitrite Urine Negative (Negative); Protein Urine 3+ (Negative); Urobilinogen Urine Negative (Negative); WBC Urine Automated >30 /hpf (0-5); pH Urine 5.5 (4.5-7.5)
--- NOTE | 2023-03-13 20:45 | CT Scan Report ---
Exam(s): CT EXTREMITY LEFT LOWER With Contrast IV Amt: 95ML OPTIRAY 320 EXAM: CT Left Lower Extremity With Intravenous Contrast CLINICAL HISTORY: Reason for exam: SQ abscess, h/o large necrotizing infection 1 yr a. TECHNIQUE: Axial computed tomography images of the left lower extremity with intravenous contrast. CTDI is 10.49 mGy and DLP is 632.43 mGy-cm. Automated exposure control was utilized for the study. A dose lowering technique was utilized adhering to the principles of ALARA. CONTRAST: Patient received 95ML OPTIRAY 320 of IV contrast COMPARISON: No relevant prior studies available. FINDINGS: Bones/joints: Unremarkable. No acute fracture. No dislocation. Soft tissues: subcutaneous edema. Innumerable varicosities. Other findings: No rim-enhancing collection present. IMPRESSION: Diffuse edema innumerable varicosities with no rim-enhancing fluid collection in the plantar Electronically signed by: Ector Patrick MD 03/13/23 20:44 PM
--- NOTE | 2023-03-13 20:50 | CT Scan Report ---
Exam(s): CT LEFT FOOT With Contrast IV Amt: 95ML OPTIRAY 320 EXAM: CT Left Lower Extremity With Intravenous Contrast, Foot CLINICAL HISTORY: Reason for exam: pain with walking, h/o necrotizing abscess. TECHNIQUE: Axial computed tomography images of the left foot with intravenous contrast. CTDI is 10.49 mGy and DLP is 640.55 mGy-cm. Automated exposure control was utilized for the study. A dose lowering technique was utilized adhering to the principles of ALARA. CONTRAST: Patient received 95ML OPTIRAY 320 of IV contrast COMPARISON: No relevant prior studies available. FINDINGS: Bones/joints: Unremarkable. No acute fracture. No dislocation. Soft tissues: Diffuse soft tissue edema. No radiopaque foreign body. IMPRESSION: No acute findings in the left foot. Electronically signed by: Ector Patrick MD 03/13/23 20:49 PM
[2023-03-13] MEDS ORDERED: NovoLIN-R INSULIN PER UNIT CHARGE SC STA (21:48)
[2023-03-13] MEDS ORDERED: ACETAMINOPHEN 500 MG TAB PO STA (21:48)
[2023-03-13] MEDS ORDERED: carvediloL 6.25 MG TAB PO STA (22:14)
--- NOTE | 2023-03-13 22:24 | History & Physical Report ---
Date of Service March 13, 2023 Assessment & Plan (1) Wound of lower extremity: Plan: This is a 52-year-old female with past medical history significant for type 2 diabetes, hyperlipidemia, chronic sinusitis, hypertension, history of polyneuropathy, iron deficiency anemia due to chronic blood loss, chronic diastolic CHF, chronic kidney disease stage III, morbid obesity, urinary incontinence nocturnal enuresis, myalgia due to simvastatin, history of tobacco abuse. The patient had this ongoing infection in the left lower extremity, initially treated with antibiotics, then she developed necrotizing fasciitis and she was transferred to [facility] in February and status post I and D at [place] and she was admitted to [facility] on 03/21/2022 and discharged on 03/30/2022, in May 2020 she was again admitted here for lower extremity wounds and found to her last abscess and again she was transferred to [place] and after patient I and D was done. Now again comes because of pain in lower extremity and increasing drainage. Lower extremity wounds Lower extremity cellulitis Acute on chronic infection Developed necrotizing fasciitis and was transferred to [place] in February 2022 Developed abscess and was again transferred to [place] in May 2022 Supposed to follow with wound clinic but states not following because of transport issues Comes because of increased pain and drainage from the lower extremities No obvious abscess on the imaging studies Diabetic infection lower extremities and cellulitis ER started on Zosyn which we will continue and will also add doxycycline Wound care consult and also podiatry consult We will follow the cultures UTI UA positive We will follow cultures On antibiotics as able Hypertensive urgency Says blood pressure is running high at home We will continue home lisinopril We will change metoprolol to Coreg IV labetalol as needed and will monitor Morbid obesity Needs counseling Nocturnal pulse oximetry while in the hospital Sleep study as outpatient Diabetes on insulin Hyperglycemia Received IV insulin in the ER We will continue home Levemir and place insulin sliding scale Glycemic pharmacy consult We will follow the blood sugars and HbA1c levels Chronic diastolic CHF On Lasix with potassium supplement We will monitor for volume overload Chronic kidney stage III Plan creatinine 0.9 We will follow the labs Iron deficiency anemia On iron supplements Hemoglobin stable Diabetic neuropathy On gabapentin DVT prophylaxis Lovenox Disposition Med/telemetry Full code (2) UTI (urinary tract infection): History of Present Illness Chief Complaint: Lower extremity wounds, elevated blood pressure Primary Care Provider: Mayra Holley, DO This is a 52-year-old female with past medical history significant for type 2 diabetes, hyperlipidemia, chronic sinusitis, hypertension, history of polyneuropathy, iron deficiency anemia due to chronic blood loss, chronic diastolic CHF, chronic kidney disease stage III, morbid obesity, urinary incontinence nocturnal enuresis, myalgia due to simvastatin, history of tobacco abuse. The patient had this ongoing infection in the left lower extremity, initially treated with antibiotics, then she developed necrotizing fasciitis and she was transferred to [facility] in February and status post I and D at [place] and she was admitted to [facility] on 03/21/2022 and discharged on 03/30/2022, in May 2020 she was again admitted here for lower extremity wounds and found to her last abscess and again she was transferred to [place] and after patient I and D was done. Patient says she follows with ankle and foot surgery for some time and has had insurance change she has followed with wound clinic which is somewhat far away and it cost $100 to go to the appointments so she is not following with her doctors regularly. Home health comes and checks on her. Generally change her dressing once daily but lately she has been changing 3 times daily because of increased drainage from her lower extremity wounds. And they are also painful while ambulating feels like she is walking on marbles for last few days. This reason she came to the ER today. Denies any fevers. At home ambulates with holding furniture. Lives alone but neighbors checks on her l and helps her. Says lately her blood pressures running high causing her headaches. Denies any blurred visions. No runny nose or sore throat or cough. Appetite is okay. No dysphagia. No chest pain or shortness of breath. No nausea or abdominal pain. Normal bowel and bladder movements. Allergies Allergy/AdvReac Type Severity Reaction Status Date / Time No Known Allergies Allergy Unknown Verified 03/13/23 19:44 Home Medications Medication Instructions Recorded Confirmed Type Saccharomyces boulardii 250 mg 250 mg PO BID 03/14/22 03/13/23 History capsule aspirin 81 mg tablet,delayed 81 mg PO DAILY 03/14/22 03/13/23 History release docusate sodium 100 mg capsule 100 mg PO BID PRN Constipation 03/14/22 03/13/23 History ferrous sulfate 325 mg (65 mg 325 mg PO DAILY 03/14/22 03/13/23 History iron) tablet furosemide 40 mg tablet (Lasix) 40 mg PO QAM 05/17/22 03/13/23 History gabapentin 300 mg capsule 600 mg PO HS 05/17/22 03/13/23 History insulin detemir U-100 100 unit/mL 25 unit subcut BID 05/17/22 03/13/23 History subcutaneous solution (Levemir U-100 Insulin) insulin lispro 100 unit/mL 15 unit subcut AC 05/17/22 03/13/23 History subcutaneous solution lisinopril 20 mg tablet 20 mg PO BID 05/17/22 03/13/23 History potassium chloride 10 mEq 10 meq PO BID 05/17/22 03/13/23 History capsule,extended release acetaminophen 500 mg tablet 1,000 mg PO Q6H PRN Pain 03/13/23 03/13/23 History (Tylenol Extra Strength) cyanocobalamin (vitamin B-12) 1,000 mcg PO DAILY 03/13/23 03/13/23 History 1,000 mcg tablet (Vitamin B-12) metoprolol succinate 25 mg 25 mg PO QAM 03/13/23 03/13/23 History tablet,extended release 24 hr tramadol 50 mg tablet 50 mg PO Q6H PRN .Moderate pain 03/13/23 03/13/23 History triamcinolone acetonide 0.1 % 1 applic topical BID 03/13/23 03/13/23 History topical cream Past Med/Surg History Medical History Anemia Back pain Depression with anxiety Diabetes type 2, uncontrolled Diabetic peripheral neuropathy associated with type 2 diabetes mellitus Dysfunctional uterine bleeding Dyslipidemia Fatigue Hirsutism History of DVT (deep vein thrombosis) HTN (hypertension) Insomnia Loss of protective sensation of skin of foot Obesity Personal history of diabetic foot ulcer Tobacco use Type 2 diabetes mellitus with complications Type 2 diabetes mellitus, with long-term current use of insulin Varicose veins of both lower extremities Vitamin D deficiency Xerosis cutis Surgical History H/O tooth extraction History of History of cholecystectomy History of endometrial ablation History of facial surgery History of hysterectomy History of incision and drainage left foot by Dr. Haq on 10-03-19. History of nasal polypectomy History of tubal ligation Family History Father Dyslipidemia Prostate cancer Diabetes Lung cancer Mother Lung cancer Hypothyroidism Brother Coronary heart disease Asthma Grandfather (Maternal) Myocardial infarction Grandmother (Maternal) Myocardial infarction Grandmother (Paternal) Breast cancer Diabetes Social History Smoking Status: Never smoker Tobacco Type: Cigarettes Hx Alcohol Use: No Hx Substance Use: No Preferred Language: Yakut Communication Ability: Effective Email Marketing Coordinator Required: No Beliefs That Will Affect Care: None marital status: Single Current Living Situation: Alone Current Living Situation Comment: home Feels Safe at Home: Yes Assistive Devices: Cane and Walker Review of Systems Review of Systems: All systems reviewed & are unremarkable except as noted in Subjective Physical Exam Physical Exam: General- Not in distress Head- atraumatic Eyes- PERRL ENT- oropharynx clear Neck- supple, no JVD Lungs- clear to auscultation and percussion no added sounds Heart- regular rate and rhythm; no murmur, no gallop Abdomen- normal bowel sounds, soft, nontender, no distension Extremities- lower extremity edema with chronic dry skin with chronic skin changes and erythema seen with some drainage from wounds Neuro- alert, oriented x 3; PERRL, no facial palsy; no dysarthria;obeys commands moves extremities Skin- warm & dry Results & Data Results & Data Vital Signs (Past 12 Hours) Vital Signs Temp Pulse Pulse Resp BP BP Pulse Ox 03/13/23 20:22 96 H 20 183/105 H 96 03/13/23 19:34 97 H 03/13/23 19:39 36.9 C 03/13/23 14:49 36.2 C L 88 18 220/111 H 100 O2 Del Method 03/13/23 20:22 Room Air 03/13/23 19:34 03/13/23 19:39 03/13/23 14:49 Room Air Diagnostic Findings Laboratory Results WBC 13.05 K/ul (4.8-10.8) H 03/13/23 18:20 RBC 4.71 M/uL (4.20-5.40) 03/13/23 18:20 Hgb 13.0 g/dl (12.0-16.0) 03/13/23 18:20 Hct 40.0 % (37.0-47.0) 03/13/23 18:20 MCV 84.9 fL (80.0-100.0) 03/13/23 18:20 MCH 27.6 pg (25.0-34.0) 03/13/23 18:20 MCHC 32.5 g/dL (32.0-36.0) 03/13/23 18:20 RDW Std Deviation 40.2 fL (36.4-46.3) 03/13/23 18:20 RDW Coeff of Mya 13.0 % (11.5-14.5) 03/13/23 18:20 Plt Count 292 K/uL (130-400) 03/13/23 18:20 MPV 11.1 fL (9.4-12.4) 03/13/23 18:20 Immature Gran % (Auto) 0.4 % 03/13/23 18:20 Neut % (Auto) 78.3 % 03/13/23 18:20 Lymph % (Auto) 15.1 % 03/13/23 18:20 [place] % (Auto) 4.9 % 03/13/23 18:20 Eos % (Auto) 0.8 % 03/13/23 18:20 Baso % (Auto) 0.5 % 03/13/23 18:20 Neut # (Auto) 10.21 K/uL (1.40-6.50) H 03/13/23 18:20 Lymph # (Auto) 1.97 K/uL (1.2-3.4) 03/13/23 18:20 [place] # (Auto) 0.64 K/uL (0.11-0.59) H 03/13/23 18:20 Eos # (Auto) 0.11 K/uL (0-0.50) 03/13/23 18:20 Baso # (Auto) 0.07 K/uL (0-0.2) 03/13/23 18:20 Immature Gran # (Auto) 0.05 K/uL (0.01-0.20) 03/13/23 18:20 Sodium 131 mmol/L (136-145) L 03/13/23 18:20 Potassium 3.7 mmol/L (3.5-5.1) 03/13/23 18:20 Chloride 95 mmol/L (98-107) L 03/13/23 18:20 Carbon Dioxide 28 mmol/L (21-32) 03/13/23 18:20 Anion Gap 8 (3-11) 03/13/23 18:20 BUN 9 mg/dl (6-23) 03/13/23 18:20 Creatinine 0.78 mg/dl (0.6-1.2) 03/13/23 18:20 Est Cr Clr Drug Dosing Not Reportable 03/13/23 18:20 Est GFR ( Amer) 99.9 ml/min 03/13/23 18:20 Est GFR (Non-Af Amer) 86.2 ml/min 03/13/23 18:20 BUN/Creatinine Ratio 11.5 (10-20) 03/13/23 18:20 Glucose 408 mg/dl (70-99(Fasting)) H* 03/13/23 18:20 POC Glucose 388 mg/dl (70-99) H* 03/13/23 21:19 Lactate 1.9 mmol/L (0.4-2.0) 03/13/23 18:20 Calcium 9.5 mg/dl (8.6-10.3) 03/13/23 18:20 Total Bilirubin 0.5 mg/dl (0.2-1.0) 03/13/23 18:20 AST 11 U/L (13-39) L 03/13/23 18:20 ALT 8 U/L (7-52) 03/13/23 18:20 Alkaline Phosphatase 89 U/L (34-104) 03/13/23 18:20 Total Protein 7.7 gm/dl (6.0-8.3) 03/13/23 18:20 Albumin 3.1 gm/dl (3.4-5.0) L 03/13/23 18:20 Globulin 4.6 gm/dl (2.5-4.0) H 03/13/23 18:20 Albumin/Globulin Ratio 0.7 (0.9-2) L 03/13/23 18:20 Procalcitonin < 0.05 ng/ml (0-0.5) 03/13/23 18:20 Urine Color Yellow 03/13/23 19:38 Urine Appearance Cloudy (Clear) A 03/13/23 19:38 Urine pH 5.5 (4.5-7.5) 03/13/23 19:38 Ur Specific [place] 1.030 (1.000-1.030) 03/13/23 19:38 Urine Protein 3+ (Negative) H 03/13/23 19:38 Urine Glucose (UA) 3+ (Negative) H 03/13/23 19:38 Urine Ketones Negative (Negative) 03/13/23 19:38 Urine Blood 2+ (Negative) H 03/13/23 19:38 Urine Nitrite Negative (Negative) 03/13/23 19:38 Urine Bilirubin Negative (Negative) 03/13/23 19:38 Urine Urobilinogen Negative (Negative) 03/13/23 19:38 Ur Leukocyte Esterase Negative (Negative) 03/13/23 19:38 Urine WBC (Auto) >30 /hpf (0-5) H 03/13/23 19:38 Urine RBC (Auto) 5-10 /hpf (0-4) H 03/13/23 19:38 U Hyaline Cast (Auto) 1-5 /lpf (0-5) 03/13/23 19:38 U Epithel Cells (Auto) >30 /lpf (0-5) H 03/13/23 19:38 Urine Bacteria (Auto) 4+ (Negative) H 03/13/23 19:38 Urine Yeast Budding (None Prsent) A 03/13/23 19:38 Impressions Foot X-Ray 03/13/23 14:53 XR foot LT min 3V routine CLINICAL HISTORY: Left foot pain/infection COMPARISON: Left foot radiographs October 02, 2019. MRI of the left foot February 28, 2022. FINDINGS: There is extensive soft tissue swelling of the left foot as well as soft tissue irregularity and suspected wound of the left first toe. No bony erosions are identified. There is no fracture. Plantar calcaneal spur is noted. Mild degenerative changes within several articulations of the left present. IMPRESSION: 1. No radiographic evidence for acute osteomyelitis within the left foot. 2. Extensive soft tissue swelling, soft tissue irregularity and suspected wound of the left first toe. ACT 112: Negative or not required by law. Electronically signed by: Roberto Knox M.D. 03/13/2023 4:[address] 03/13/23 17:41 Exam(s): CT LEFT FOOT With Contrast IV Amt: 95ML OPTIRAY 320 EXAM: CT Left Lower Extremity With Intravenous Contrast, Foot CLINICAL HISTORY: Reason for exam: pain with walking, h/o necrotizing abscess. TECHNIQUE: Axial computed tomography images of the left foot with intravenous contrast. CTDI is 10.49 mGy and DLP is 640.55 mGy-cm. Automated exposure control was utilized for the study. A dose lowering technique was utilized adhering to the principles of ALARA. CONTRAST: Patient received 95ML OPTIRAY 320 of IV contrast COMPARISON: No relevant prior studies available. FINDINGS: Bones/joints: Unremarkable. No acute fracture. No dislocation. Soft tissues: Diffuse soft tissue edema. No radiopaque foreign body. IMPRESSION: No acute findings in the left foot. Electronically signed by: Ector Patrick MD 03/13/23 20:[address] 03/13/23 17:41 Exam(s): CT EXTREMITY LEFT LOWER With Contrast IV Amt: 95ML OPTIRAY 320 EXAM: CT Left Lower Extremity With Intravenous Contrast CLINICAL HISTORY: Reason for exam: SQ abscess, h/o large necrotizing infection 1 yr a. TECHNIQUE: Axial computed tomography images of the left lower extremity with intravenous contrast. CTDI is 10.49 mGy and DLP is 632.43 mGy-cm. Automated exposure control was utilized for the study. A dose lowering technique was utilized adhering to the principles of ALARA. CONTRAST: Patient received 95ML OPTIRAY 320 of IV contrast COMPARISON: No relevant prior studies available. FINDINGS: Bones/joints: Unremarkable. No acute fracture. No dislocation. Soft tissues: subcutaneous edema. Innumerable varicosities. Other findings: No rim-enhancing collection present. IMPRESSION: Diffuse edema innumerable varicosities with no rim-enhancing fluid collection in the plantar Electronically signed by: Ector Patrick MD 03/13/23 20:44 PM Code Status & VTE Plan VTE Prophylaxis Plan VTE Prophylaxis will be ordered: Yes
[2023-03-14] MEDS ORDERED: NITROGLYCERIN SL 0.4 MG/TAB TAB SL PRN (01:39)
[2023-03-14] MEDS ORDERED: GLUCOSE 10 TAB/TUBE PO PRN (01:39)
[2023-03-14] MEDS ORDERED: CARBOHYDRATES FOR HYPOGLYCEMIA PO PRN (01:39)
[2023-03-14] MEDS ORDERED: PHARMACY GLYCEMIC MGMT CONSULT PRN (01:39)
[2023-03-14] MEDS ORDERED: DOCUSATE SODIUM 100 MG CAP PO PRN (01:39)
[2023-03-14] MEDS ORDERED: POLYETHYLENE (MIRALAX) 17 GM PACK PO PRN (01:39)
[2023-03-14] MEDS ORDERED: GLUCAGON FOR INJ 1 MG VIAL SQ PRN (01:39)
[2023-03-14] MEDS ORDERED: GLUCOSE 40% GEL 15 GM TUBE PO PRN (01:39)
[2023-03-14] MEDS ORDERED: DEXTROSE 50% 50 ML SYRINGE IV PRN (01:39)
[2023-03-14] MEDS ORDERED: SODIUM CHLORIDE 0.9% 1000ML 1,000 ML IV SCH (01:45)
[2023-03-14] MEDS ORDERED: LANTUS PER UNIT CHARGE SC ONE (02:15)
[2023-03-14] MEDS: lisinopril 20 MG TAB PO SCH ×3 (03:28→20:35)
[2023-03-14] MEDS: GABAPENTIN 300 MG CAP PO SCH ×2 (03:29→20:37)
[2023-03-14] MEDS: DOXYCYCLINE HYCLATE 100 MG in DEXTROSE 5% 100 ML IV SCH ×2 (03:30→17:29)
[2023-03-14] MEDS: INSULIN ASPART PER UNIT CHARGE SC SCH ×5 (04:05→21:12)
[2023-03-14 05:40] LABS: BUN Creatinine Ratio 10.5 (10-20); Calcium 8.7 mg/dl (8.6-10.3); Creatinine Clr Calc Pharmacy 95.3 ml/min; Est GFR (African American) 69.7 ml/min; Est GFR (Non-African American) 60.2 ml/min; Magnesium 1.7 mg/dl (1.7-2.4); Potassium 3.4 mmol/L (3.5-5.1)
[2023-03-14] MEDS: ACETAMINOPHEN 500 MG TAB PO PRN ×2 (05:43→16:27)
[2023-03-14] MEDS: PIPERACILLIN/TAZOBACTAM 4.5 GM in DEXTROSE 5% 100 ML IV SCH ×3 (06:12→21:57)
[2023-03-14] MEDS: ENOXAPARIN INJ 40 MG/0.4 ML SYR SQ SCH ×2 (06:12→19:11)
[2023-03-14 07:26] LABS: Estimated Average Glucose 355 mg/dl
[2023-03-14 09:00] LABS: Basophils # (auto) 0.04 K/uL (0-0.2); Basophils % (auto) 0.5 %; Eosinophils # (auto) 0.17 K/uL (0-0.50); Hematocrit (blood only) 33.8 % (37.0-47.0); Immature Granulocytes # (auto) 0.11 K/uL (0.01-0.20); Immature Granulocytes % (auto) 1.3 %; Lymphocytes % (auto) 17.5 %; Mean Corpuscular Hemoglobin 28.1 pg (25.0-34.0); Mean Corpuscular Hgb Conc 32.5 g/dL (32.0-36.0); Mean Corpuscular Volume 86.2 fL (80.0-100.0); Mean Platelet Volume 11.3 fL (9.4-12.4); Monocytes # (auto) 0.53 K/uL (0.11-0.59); Monocytes % (auto) 6.2 %; Neutrophils # (auto) 6.21 K/uL (1.40-6.50); Neutrophils % (auto) 72.5 %; Platelet Count 258 K/uL (130-400); RDW Coefficient of Variation 13.1 % (11.5-14.5); RDW Standard Deviation 40.6 fL (36.4-46.3); Red Blood Count 3.92 M/uL (4.20-5.40); White Blood Count 8.56 K/ul (4.8-10.8)
[2023-03-14] MEDS: FERROUS SULFATE 325 MG TAB PO SCH (09:11)
[2023-03-14] MEDS: carvediloL 6.25 MG TAB PO SCH ×2 (09:11→19:11)
[2023-03-14] MEDS: CYANOCOBALAMIN (B-12) 500 MCG TABLET PO SCH (09:11)
[2023-03-14] MEDS: SACCHAROMYCES BOULARDII 250 MG CAP PO SCH ×2 (09:11→20:36)
[2023-03-14] MEDS: FUROSEMIDE 40 MG TAB PO SCH (09:11)
[2023-03-14] MEDS: ASPIRIN 81 MG ECTAB PO SCH (09:11)
[2023-03-14] MEDS: POTASSIUM CHLORIDE 10 MEQ TABCR PO SCH ×2 (09:11→17:40)
[2023-03-14] MEDS: TRIAMCINOLONE ACET 0.1% CR 15 GM TUBE TOP SCH ×2 (09:14→21:57)
--- NOTE | 2023-03-14 10:22 | Pharmacy Report ---
Pharmacy Glycemic Short Note 2 - Date of Service March 14, 2023 - Glycemic Short BSG Results (Last 24 hours): 03/13/23 03/13/23 03/14/23 18:20 21:19 03:32 Glucose 408 H* POC Glucose 388 H* 324 H* 03/14/23 03/14/23 05:08 07:42 Glucose 258 H POC Glucose 221 H OUTPATIENT ANTIDIABETIC REGIMEN: * Levemir 25 units SC BID * Humalog 15 units SC AC HbA1c: 14% (03/14/23) ASSESSMENT: * PD is a 53 year old female admitted last evening w/ LLE extremity cellulitis/wound * History of poorly controlled T2DM (HbA1c: 14%), morbid obesity, and ongoing necrotizing infection of LLE * Will use past inpatient glycemic data to guide initial glycemic regimen * Full outpatient basal daily dose given early this AM - will not need further basal today PLAN FOR INPATIENT GLYCEMIC CONTROL: * Hold outpatient oral diabetes medications * Basal insulin * Lantus 50 units SC x 1 * Reassess in AM * Bolus insulin * NovoLog per scale ACHS or Q6hrs while NPO * Goal Range: Low 110 mg/dL - High 140 mg/dL * Correction Factor: 20 mg/dL/unit * Nutritional / Prandial insulin per carb ratio of 1 unit per 6 grams CHO consumed
[2023-03-15] MEDS: DOXYCYCLINE HYCLATE 100 MG in DEXTROSE 5% 100 ML IV SCH (03:09)
[2023-03-15] MEDS: ENOXAPARIN INJ 40 MG/0.4 ML SYR SQ SCH ×2 (05:43→17:15)
[2023-03-15] MEDS: PIPERACILLIN/TAZOBACTAM 4.5 GM in DEXTROSE 5% 100 ML IV SCH ×3 (05:43→20:23)
--- NOTE | 2023-03-15 08:16 | Orthopedic Consultation ---
Date of Consultation March 14, 2023 Assessment & Plan (1) Wound of lower extremity: Patient seen, examined, and treated in [facility] ED B12-1. Patient will be admitted for left lower extremity wounds Dressings applied to left lower extremity wounds. Will continue to follow while in house. Thank you for allowing me to participate in the care of this Patient. (2) Diabetic foot infection: History of Present Illness Attending Physician: Jeff Roland MD History of Present Illness Patient is a 52-year-old female seen in [facility] Emergency Department B12-1 for lower extremity cellulitis. Patient has a past medical history significant for type 2 diabetes, hyperlipidemia, chronic sinusitis, hypertension, history of polyneuropathy, iron deficiency anemia due to chronic blood loss, chronic diastolic CHF, chronic kidney disease stage III, morbid obesity, urinary incontinence nocturnal enuresis, myalgia due to simvastatin, history of tobacco abuse. The patient has prolonged history of ongoing infection in the left lower extremity, initially treated with antibiotics. She developed necrotizing fasciitis and was transferred to [facility] 03/08 for I&D. She was admitted to [facility] on 03/21/2022 and discharged. Patient was then admitted back to [facility] for lower extremity wounds and found to her last abscess 05/09 - 06/08 and again she was transferred to [place] where again I&D was done. Now again comes because of pain in lower extremity and increasing drainage. Allergies Allergy/AdvReac Type Severity Reaction Status Date / Time No Known Allergies Allergy Unknown Verified 03/13/23 19:44 Home Medications Medication Instructions Recorded Confirmed Type Saccharomyces boulardii 250 mg 250 mg PO BID 03/14/22 03/13/23 History capsule aspirin 81 mg tablet,delayed 81 mg PO DAILY 03/14/22 03/13/23 History release docusate sodium 100 mg capsule 100 mg PO BID PRN Constipation 03/14/22 03/13/23 History ferrous sulfate 325 mg (65 mg 325 mg PO DAILY 03/14/22 03/13/23 History iron) tablet furosemide 40 mg tablet (Lasix) 40 mg PO QAM 05/17/22 03/13/23 History gabapentin 300 mg capsule 600 mg PO HS 05/17/22 03/13/23 History insulin detemir U-100 100 unit/mL 25 unit subcut BID 05/17/22 03/13/23 History subcutaneous solution (Levemir U-100 Insulin) insulin lispro 100 unit/mL 15 unit subcut AC 05/17/22 03/13/23 History subcutaneous solution lisinopril 20 mg tablet 20 mg PO BID 05/17/22 03/13/23 History potassium chloride 10 mEq 10 meq PO BID 05/17/22 03/13/23 History capsule,extended release acetaminophen 500 mg tablet 1,000 mg PO Q6H PRN Pain 03/13/23 03/13/23 History (Tylenol Extra Strength) cyanocobalamin (vitamin B-12) 1,000 mcg PO DAILY 03/13/23 03/13/23 History 1,000 mcg tablet (Vitamin B-12) metoprolol succinate 25 mg 25 mg PO QAM 03/13/23 03/13/23 History tablet,extended release 24 hr tramadol 50 mg tablet 50 mg PO Q6H PRN .Moderate pain 03/13/23 03/13/23 History triamcinolone acetonide 0.1 % 1 applic topical BID 03/13/23 03/13/23 History topical cream Patient History Medical History Anemia Back pain Depression with anxiety Diabetes type 2, uncontrolled Diabetic peripheral neuropathy associated with type 2 diabetes mellitus Dysfunctional uterine bleeding Dyslipidemia Fatigue Hirsutism History of DVT (deep vein thrombosis) HTN (hypertension) Insomnia Loss of protective sensation of skin of foot Obesity Personal history of diabetic foot ulcer Tobacco use Type 2 diabetes mellitus with complications Type 2 diabetes mellitus, with long-term current use of insulin Varicose veins of both lower extremities Vitamin D deficiency Xerosis cutis Surgical History H/O tooth extraction History of History of cholecystectomy History of endometrial ablation History of facial surgery History of hysterectomy History of incision and drainage left foot by Dr. Haq on 10-03-19. History of nasal polypectomy History of tubal ligation Family History Father Dyslipidemia Prostate cancer Diabetes Lung cancer Mother Lung cancer Hypothyroidism Brother Coronary heart disease Asthma Grandfather (Maternal) Myocardial infarction Grandmother (Maternal) Myocardial infarction Grandmother (Paternal) Breast cancer Diabetes Social History Smoking Status: Never smoker Tobacco Type: Cigarettes Hx Alcohol Use: No Hx Substance Use: No Preferred Language: Icelandic Communication Ability: Effective Hygiene Assistant Required: No Beliefs That Will Affect Care: Spiritual marital status: Single Current Living Situation: Alone Current Living Situation Comment: Home, self care Feels Safe at Home: Yes Assistive Devices: Cane and Walker Review of Systems Review of Systems: All systems reviewed & are unremarkable except as noted in HPI & below Physical Exam Constitutional: cooperative, comfortable and + overweight Eyes: normal visual briseno by confrontation Neck: normal visual inspection Respiratory: normal respiratory effort and + respiratory distress Cardiovascular: Rate/Rhythm: regular rate and regular rhythm Musculoskeletal: Extremities: extremities normal to inspection Neurologic: moves all extremities (Absent lower extremity epicritic sensation) Psychiatric: Orientation: alert and oriented x 3 Lymphatic: + lymphedema ((+) hyperpigmentation hyperkeratosis hyperplasia papillomatosis & fibrosis) Results & Data Vital Signs (Past 12 Hours) Vital Signs Temp Pulse Pulse Resp BP Pulse Ox O2 Del Method 03/15/23 04:03 37.3 C 67 18 129/73 96 Room Air 03/15/23 03:00 03/15/23 00:24 74 03/14/23 23:00 36.6 C 73 18 153/83 H 98 Room Air 03/14/23 22:32 Room Air O2 Del Method 03/15/23 04:03 03/15/23 03:00 Room Air 03/15/23 00:24 03/14/23 23:00 03/14/23 22:32 Diagnostic Findings [place] [phone] CT Scan Report Patient:LUIS MANUEL MIKE Admit Date:03/13/23 MR#:[id number] Address1:[address] Acct ID:[id number] Address2: Date:[address] [facility] Zip:[place] [address] Age:53 Location:ED Sex:F Room/Bed: Att Phy: Diagnosis:L LEG PAIN, CANT WALK Maddie Phy:Mayra Holley DO Service Date:03/13/23 Fam Phy: Interpreting Phy:Ector Lowery Phy: Ordering Phy:Lynette Gaming M.D. cc: ~ Exam(s): CT EXTREMITY LEFT LOWER With Contrast IV Amt: 95ML OPTIRAY 320 EXAM: CT Left Lower Extremity With Intravenous Contrast CLINICAL HISTORY: Reason for exam: SQ abscess, h/o large necrotizing infection 1 yr a. TECHNIQUE: Axial computed tomography images of the left lower extremity with intravenous contrast. CTDI is 10.49 mGy and DLP is 632.43 mGy-cm. Automated exposure control was utilized for the study. A dose lowering technique was utilized adhering to the principles of ALARA. CONTRAST: Patient received 95ML OPTIRAY 320 of IV contrast COMPARISON: No relevant prior studies available. FINDINGS: Bones/joints: Unremarkable. No acute fracture. No dislocation. Soft tissues: subcutaneous edema. Innumerable varicosities. Other findings: No rim-enhancing collection present. IMPRESSION: Diffuse edema innumerable varicosities with no rim-enhancing fluid collection in the plantar Electronically signed by: Ector Patrick MD 03/13/23 20:44 PM Dictated:03/13/232043 Transcribed: 03/13/232043 [place], [place] [phone] CT Scan Report Patient:LUIS MANUEL MIKE Admit Date:03/13/23 MR#:[id number] Address1:[address] Acct ID:[id number] Address2: Date:[address] [facility] Zip:[place] [address] Age:53 Location:ED Sex:F Room/Bed: Att Phy: Diagnosis:L LEG PAIN, CANT WALK Maddie Phy:Mayra Holley DO Service Date:03/13/23 [facility] Phy: Interpreting Phy:[facility]ctor [facility] Phy: Ordering Phy:Lynette Gaming M.D. cc: ~ Exam(s): CT LEFT FOOT With Contrast IV Amt: 95ML OPTIRAY 320 EXAM: CT Left Lower Extremity With Intravenous Contrast, Foot CLINICAL HISTORY: Reason for exam: pain with walking, h/o necrotizing abscess. TECHNIQUE: Axial computed tomography images of the left foot with intravenous contrast. CTDI is 10.49 mGy and DLP is 640.55 mGy-cm. Automated exposure control was utilized for the study. A dose lowering technique was utilized adhering to the principles of ALARA. CONTRAST: Patient received 95ML OPTIRAY 320 of IV contrast COMPARISON: No relevant prior studies available. FINDINGS: Bones/joints: Unremarkable. No acute fracture. No dislocation. Soft tissues: Diffuse soft tissue edema. No radiopaque foreign body. IMPRESSION: No acute findings in the left foot. Electronically signed by: Ector Patrick MD 03/13/23 20:49 PM Dictated:03/13/232048 Transcribed: 03/13/232048
[2023-03-15] MEDS: FUROSEMIDE 40 MG TAB PO SCH (08:25)
[2023-03-15] MEDS: carvediloL 6.25 MG TAB PO SCH ×2 (08:25→17:15)
[2023-03-15] MEDS: CYANOCOBALAMIN (B-12) 500 MCG TABLET PO SCH (08:25)
[2023-03-15] MEDS: ASPIRIN 81 MG ECTAB PO SCH (08:25)
[2023-03-15] MEDS: POTASSIUM CHLORIDE 10 MEQ TABCR PO SCH ×2 (08:26→17:15)
[2023-03-15] MEDS: FERROUS SULFATE 325 MG TAB PO SCH (08:26)
[2023-03-15] MEDS: SACCHAROMYCES BOULARDII 250 MG CAP PO SCH ×2 (08:26→20:18)
[2023-03-15] MEDS: lisinopril 20 MG TAB PO SCH ×2 (08:27→20:18)
[2023-03-15] MEDS: TRIAMCINOLONE ACET 0.1% CR 15 GM TUBE TOP SCH ×2 (08:27→20:19)
[2023-03-15] MEDS: INSULIN ASPART PER UNIT CHARGE SC SCH ×4 (08:34→20:25)
[2023-03-15] MEDS ORDERED: LANTUS PER UNIT CHARGE SC SCH (09:00)
--- NOTE | 2023-03-15 11:40 | Orthopedic Progress Note ---
Date of Service March 15, 2023 Assessment & Plan (1) Wound of lower extremity: Plan: Patient, seen, evaluated, and treated. I examined the patient for Left Lower extremity wounds that have been resistant to healing despite numerous interventions. The plan is now to examine any underlying characteristics that may impede healing. A thorough evaluation of the wounds was done in detail. Manners in which pressure reduction could be achieved were investigated and in itiated. Off-loading of heel wound is a critical part of this patient's management. Control of lower extremity edema is a critical part of this patient's management. Factors which likely contribute to non-healing include: lack of adequate off- loading when supine, inadequately controlled infection, lack of adequate off- loading when ambulating, a limited understanding of the disease of diabetes and its processes. To offload or remove pressure to the wound is essential. Dressings applied to left lower extremity wounds. Will continue to follow while in house. Prevlon boot ordered for off loading of plantar heel wound. Multi layer lower extremity compression applied to left lower extremity including kerlix, 2 sequential 6 inch alice wrap. (2) Diabetic foot infection: Admission and Anticipated Discharge Date Admission Date: March 13, 2023 Subjective Patient seen at bedside this morning. She relates no complaints and is resting comfortably. Review of Systems Review of Systems: All systems reviewed & are unremarkable except as noted in Subjective Physical Exam Constitutional: cooperative, comfortable and + overweight Eyes: normal visual briseno by confrontation Neck: normal visual inspection Respiratory: normal respiratory effort and + respiratory distress Cardiovascular: Rate/Rhythm: regular rate and regular rhythm Musculoskeletal: Extremities: extremities normal to inspection Neurologic: moves all extremities (Absent lower extremity epicritic sensation) Psychiatric: Orientation: alert and oriented x 3 Lymphatic: + lymphedema ((+) hyperpigmentation hyperkeratosis hyperplasia papillomatosis & fibrosis) Results & Data Vital Signs (Past 12 Hours) Vital Signs Temp Pulse Pulse Resp BP Pulse Ox O2 Del Method 03/15/23 08:00 Room Air 03/15/23 08:00 78 03/15/23 08:29 37.1 C 68 17 128/74 96 Room Air 03/15/23 04:03 37.3 C 67 18 129/73 96 Room Air 03/15/23 03:00 03/15/23 00:24 74 O2 Del Method 03/15/23 08:00 03/15/23 08:00 03/15/23 08:29 03/15/23 04:03 03/15/23 03:00 Room Air 03/15/23 00:24
--- NOTE | 2023-03-15 12:10 | Surgery Consultation ---
Date of Consultation March 15, 2023 Assessment & Plan (1) Diabetic foot infection: 53-year-old female with extensive history of infections in the left lower extremity now with significant edematous changes and apparent overlying cellulitis of the left lower extremity. She does have a pressure ulcer of her heel and foot. These are being evaluated by podiatry. The wounds on her lower extremities appear to be healing as well as wounds can heal given her conditions. There is no evidence of NSTI or drainable fluid collection. No surgical intervention warranted from a general surgery standpoint Continue antibiotics, local wound care, continue with evaluation by wound care nurse Podiatry to address pressure wounds of the heel and foot Continue to offload pressure, eliminate risk factors as best able Surgery will sign off, call with questions or concerns (2) Wound of lower extremity: (3) Cellulitis of left lower extremity: (4) Type 2 diabetes mellitus, with long-term current use of insulin: (5) HTN (hypertension): (6) Varicose veins of both lower extremities: (7) Obesity: History of Present Illness Reason for Consultation: Lower extremity cellulitis, slow healing wounds Attending Physician: Jeff Roland MD History of Present Illness 53-year-old female with multiple medical comorbidities and history of NSTI of left lower extremity treated with debridement at [facility] over a year ago. She also had drainages of abscesses and debridement of the wounds last fall. The wounds of been slowly healing, but not completely healed. In the meantime she has noticed increasing swelling, redness, and drainage from the left lower extremity. She was admitted to the medicine service and is being treated with antibiotics. Podiatry has been consulted. Imaging has been performed Allergies Allergy/AdvReac Type Severity Reaction Status Date / Time No Known Allergies Allergy Unknown Verified 03/13/23 19:44 Home Medications Medication Instructions Recorded Confirmed Type Saccharomyces boulardii 250 mg 250 mg PO BID 03/14/22 03/13/23 History capsule aspirin 81 mg tablet,delayed 81 mg PO DAILY 03/14/22 03/13/23 History release docusate sodium 100 mg capsule 100 mg PO BID PRN Constipation 03/14/22 03/13/23 History ferrous sulfate 325 mg (65 mg 325 mg PO DAILY 03/14/22 03/13/23 History iron) tablet furosemide 40 mg tablet (Lasix) 40 mg PO QAM 05/17/22 03/13/23 History gabapentin 300 mg capsule 600 mg PO HS 05/17/22 03/13/23 History insulin detemir U-100 100 unit/mL 25 unit subcut BID 05/17/22 03/13/23 History subcutaneous solution (Levemir U-100 Insulin) insulin lispro 100 unit/mL 15 unit subcut AC 05/17/22 03/13/23 History subcutaneous solution lisinopril 20 mg tablet 20 mg PO BID 05/17/22 03/13/23 History potassium chloride 10 mEq 10 meq PO BID 05/17/22 03/13/23 History capsule,extended release acetaminophen 500 mg tablet 1,000 mg PO Q6H PRN Pain 03/13/23 03/13/23 History (Tylenol Extra Strength) cyanocobalamin (vitamin B-12) 1,000 mcg PO DAILY 03/13/23 03/13/23 History 1,000 mcg tablet (Vitamin B-12) metoprolol succinate 25 mg 25 mg PO QAM 03/13/23 03/13/23 History tablet,extended release 24 hr tramadol 50 mg tablet 50 mg PO Q6H PRN .Moderate pain 03/13/23 03/13/23 History triamcinolone acetonide 0.1 % 1 applic topical BID 03/13/23 03/13/23 History topical cream Patient History Medical History (Updated 03/15/23 @ 12:08 by Jun Beavers DO, FACS) Anemia Back pain Cellulitis of left lower extremity Depression with anxiety Diabetes type 2, uncontrolled Diabetic peripheral neuropathy associated with type 2 diabetes mellitus Dysfunctional uterine bleeding Dyslipidemia Fatigue Hirsutism History of DVT (deep vein thrombosis) HTN (hypertension) Insomnia Loss of protective sensation of skin of foot Obesity Personal history of diabetic foot ulcer Tobacco use Type 2 diabetes mellitus with complications Type 2 diabetes mellitus, with long-term current use of insulin Varicose veins of both lower extremities Vitamin D deficiency Xerosis cutis Surgical History H/O tooth extraction History of History of cholecystectomy History of endometrial ablation History of facial surgery History of hysterectomy History of incision and drainage left foot by Dr. Haq on 10-03-19. History of nasal polypectomy History of tubal ligation Family History Father Dyslipidemia Prostate cancer Diabetes Lung cancer Mother Lung cancer Hypothyroidism Brother Coronary heart disease Asthma Grandfather (Maternal) Myocardial infarction Grandmother (Maternal) Myocardial infarction Grandmother (Paternal) Breast cancer Diabetes Social History Smoking Status: Never smoker Tobacco Type: Cigarettes Hx Alcohol Use: No Hx Substance Use: No Preferred Language: Vietnamese Communication Ability: Effective Client Finance Analyst Required: No Beliefs That Will Affect Care: Spiritual marital status: Single Current Living Situation: Alone Current Living Situation Comment: Home, self care Feels Safe at Home: Yes Assistive Devices: Cane and Walker Physical Exam Constitutional: WD/WN, vitals as above + morbidly obese Skin: Left lower extremity dressing removed. She has significant left lower extremity edema and dependent rubor along with likely overlying cellulitis. She has chronic changes to her skin from the edema. She has a mostly healed wound on the medial lower extremity. She has a wound that is mostly healed on the lateral left lower extremity. There is an area of approximately 3-1/2 x 2 cm granulation tissue awaiting final epithelization. She also has some ulcers on her heel and foot. There is no crepitus, no palpable fluid collections. She does have some bullae and some weeping from the edema. Results & Data Vital Signs (Past 12 Hours) Vital Signs Temp Pulse Pulse Resp BP Pulse Ox O2 Del Method 03/15/23 08:00 Room Air 03/15/23 08:00 78 03/15/23 08:29 37.1 C 68 17 128/74 96 Room Air 03/15/23 04:03 37.3 C 67 18 129/73 96 Room Air 03/15/23 03:00 03/15/23 00:24 74 O2 Del Method 03/15/23 08:00 03/15/23 08:00 03/15/23 08:29 03/15/23 04:03 03/15/23 03:00 Room Air 03/15/23 00:24 Laboratory Results Laboratory Results - last 24 hr 03/14/23 03/14/23 03/14/23 13:09 16:58 17:30 POC Glucose 213 H 203 H 214 H 03/14/23 03/15/23 03/15/23 21:05 07:47 11:50 POC Glucose 230 H 240 H [address] scan of the lower extremity and foot personally reviewed and interpreted and agree with the assessment of significant edema and anasarca and some wounds, no subcu emphysema, no drainable fluid collection. Exam(s): CT EXTREMITY LEFT LOWER With Contrast IV Amt: 95ML OPTIRAY 320 EXAM: CT Left Lower Extremity With Intravenous Contrast CLINICAL HISTORY: Reason for exam: SQ abscess, h/o large necrotizing infection 1 yr a. TECHNIQUE: Axial computed tomography images of the left lower extremity with intravenous contrast. CTDI is 10.49 mGy and DLP is 632.43 mGy-cm. Automated exposure control was utilized for the study. A dose lowering technique was utilized adhering to the principles of ALARA. CONTRAST: Patient received 95ML OPTIRAY 320 of IV contrast COMPARISON: No relevant prior studies available. FINDINGS: Bones/joints: Unremarkable. No acute fracture. No dislocation. Soft tissues: subcutaneous edema. Innumerable varicosities. Other findings: No rim-enhancing collection present. IMPRESSION: Diffuse edema innumerable varicosities with no rim-enhancing fluid collection in the plantar Exam(s): CT LEFT FOOT With Contrast IV Amt: 95ML OPTIRAY 320 EXAM: CT Left Lower Extremity With Intravenous Contrast, Foot CLINICAL HISTORY: Reason for exam: pain with walking, h/o necrotizing abscess. TECHNIQUE: Axial computed tomography images of the left foot with intravenous contrast. CTDI is 10.49 mGy and DLP is 640.55 mGy-cm. Automated exposure control was utilized for the study. A dose lowering technique was utilized adhering to the principles of ALARA. CONTRAST: Patient received 95ML OPTIRAY 320 of IV contrast COMPARISON: No relevant prior studies available. FINDINGS: Bones/joints: Unremarkable. No acute fracture. No dislocation. Soft tissues: Diffuse soft tissue edema. No radiopaque foreign body. IMPRESSION: No acute findings in the left foot. PG Care Time/CCT Total # of Minutes Spent Total Time Spent with Patient: Total time spent is greater than 50% in coordination of care (as documented) at patient's floor/unit and/or counseling patient: Coding Level of Care Code 96059 IN/OBS CONSULT LVL 3,45M Diagnoses Diabetic foot infection E11.628; L08.9 Wound of lower extremity S81.809A Cellulitis of left lower extremity L03.116 Type 2 diabetes mellitus, with long-term current use of insulin E11.9; Z79.4 HTN (hypertension) I10 Varicose veins of both lower extremities I83.93 Obesity E66.9
[2023-03-15] MEDS: DAPTOmycin 400 MG in SYRINGE 0 ML IV SCH (12:42)
--- NOTE | 2023-03-15 17:35 | Hospitalist Progress Note ---
Date of Service March 15, 2023 Assessment & Plan (1) Wound of lower extremity: Plan: Per admitting service notes with addendum: This is a 52-year-old female with past medical history significant for type 2 diabetes, hyperlipidemia, chronic sinusitis, hypertension, history of polyneuropathy, iron deficiency anemia due to chronic blood loss, chronic diastolic CHF, chronic kidney disease stage III, morbid obesity, urinary incontinence nocturnal enuresis, myalgia due to simvastatin, history of tobacco abuse. The patient had this ongoing infection in the left lower extremity, initially treated with antibiotics, then she developed necrotizing fasciitis and she was transferred to [facility] in February and status post I and D at [place] and she was admitted to [facility] on 03/21/2022 and discharged on 03/30/2022, in May 2020 she was again admitted here for lower extremity wounds and found to her last abscess and again she was transferred to [place] and after patient I and D was done. Now again comes because of pain in lower extremity and increasing drainage. Lower extremity wounds Lower extremity cellulitis Acute on chronic infection Developed necrotizing fasciitis and was transferred to [place] in February 2022 Developed abscess and was again transferred to [place] in May 2022 Supposed to follow with wound clinic but states not following because of transport issues Comes because of increased pain and drainage from the lower extremities No obvious abscess on the imaging studies Diabetic infection lower extremities and cellulitis ER started on Zosyn which we will continue and will also add doxycycline Wound care consult and also podiatry consult We will follow the cultures 03/15 Blood culture: Pending Wound cultures: Pending Afebrile Clinically stable overall Wound care nurse on board Podiatry service consulted-no procedures planned at this point General surgery service consulted-does not recommend surgical debridement at this point Change doxycycline to daptomycin IV day #1 Continue IV Zosyn day #2 Continue Lasix 40 mg daily Continue AmLactin twice daily Daily dressings UTI UA positive Urine culture: E. 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 Lasix Chronic kidney stage III Repeat PRP tomorrow Iron deficiency anemia On iron supplements Hemoglobin stable Diabetic neuropathy On gabapentin DVT prophylaxis Lovenox Disposition Will need to transition to acute rehab or halfway facility Full code plan of care discussed with patient in detail and at length all questions answered She is understanding, agreeable, comfortable with the plan of care (2) UTI (urinary tract infection): Admission and Anticipated Discharge Date Admission Date: March 13, 2023 Subjective Follow-up for left lower extremity wounds, etc. Resting in chair, comfortable, not in distress States she feels slightly better compared to yesterday Left lower extremity with mild discomfort No fevers or chills, nausea or vomiting No other new symptom Review of Systems Review of Systems: all noted and negative except for above Physical Exam Physical Exam: General- oriented x 3, not in distress, speaks in sentences with no effort or accessory muscle use Eyes- anicteric Neck- no JVD Lungs- clear breath sounds bilaterally, no crackles or wheezing Heart- normal rate, regular rhythm; no murmurs Abdomen- normal bowel sounds, nondistended, soft, nontender Extremities- no pretibial edema, no calf tenderness Right lower leg-mild edema, very dry skin, no erythema/warmth/tenderness Left lower leg-heavy dressing in place, positive erythema outside the border of the dressings Neuro- alert, oriented x 3; no gross focal neurologic deficits Skin- warm & dry Results & Data Results & Data Vital Signs (Past 12 Hours) Vital Signs Temp Pulse Pulse Resp BP Pulse Ox O2 Del Method 03/15/23 15:37 37.0 C 65 18 123/78 98 Room Air 03/15/23 12:00 36.9 C 68 18 125/76 97 Room Air 03/15/23 08:00 Room Air 03/15/23 08:00 78 03/15/23 08:29 37.1 C 68 17 128/74 96 Room Air all noted and reviewed including below
[2023-03-15] MEDS: ACETAMINOPHEN 500 MG TAB PO PRN (18:31)
[2023-03-15] MEDS: AMMONIUM LACTATE 12% LOTION 225 GM BTL EXT SCH (20:16)
[2023-03-15] MEDS: GABAPENTIN 300 MG CAP PO SCH (20:17)
[2023-03-16] MEDS ORDERED: PROMETHAZINE HCL 12.5 MG in SODIUM CHLORIDE 0.9% 50 ML IV PRN (02:20)
[2023-03-16] MEDS: PIPERACILLIN/TAZOBACTAM 4.5 GM in DEXTROSE 5% 100 ML IV SCH ×3 (04:29→20:47)
[2023-03-16] MEDS: ENOXAPARIN INJ 40 MG/0.4 ML SYR SQ SCH ×2 (05:47→17:45)
[2023-03-16] MEDS: TRIAMCINOLONE ACET 0.1% CR 15 GM TUBE TOP SCH ×2 (08:10→20:51)
[2023-03-16] MEDS: AMMONIUM LACTATE 12% LOTION 225 GM BTL EXT SCH ×2 (08:10→20:50)
[2023-03-16] MEDS: SACCHAROMYCES BOULARDII 250 MG CAP PO SCH ×2 (08:13→20:51)
[2023-03-16] MEDS: CYANOCOBALAMIN (B-12) 500 MCG TABLET PO SCH (08:14)
[2023-03-16] MEDS: lisinopril 20 MG TAB PO SCH ×2 (08:14→20:51)
[2023-03-16] MEDS: FUROSEMIDE 40 MG TAB PO SCH (08:14)
[2023-03-16] MEDS: ASPIRIN 81 MG ECTAB PO SCH (08:14)
[2023-03-16] MEDS: INSULIN ASPART PER UNIT CHARGE SC SCH ×4 (08:46→20:48)
[2023-03-16] MEDS ORDERED: LANTUS PER UNIT CHARGE SC SCH ×2 (09:00→21:00)
[2023-03-16] MEDS: POTASSIUM CHLORIDE 10 MEQ TABCR PO SCH ×2 (09:06→17:45)
[2023-03-16] MEDS: FERROUS SULFATE 325 MG TAB PO SCH (09:06)
[2023-03-16 09:12] LABS: Basophils # (auto) 0.06 K/uL (0-0.2); Basophils % (auto) 0.5 %; Eosinophils # (auto) 0.26 K/uL (0-0.50); Eosinophils % (auto) 2.1 %; Hematocrit (blood only) 33.7 % (37.0-47.0); Hemoglobin 10.9 g/dl (12.0-16.0); Immature Granulocytes # (auto) 0.11 K/uL (0.01-0.20); Immature Granulocytes % (auto) 0.9 %; Lymphocytes # (auto) 2.14 K/uL (1.2-3.4); Lymphocytes % (auto) 17.1 %; Mean Corpuscular Hgb Conc 32.3 g/dL (32.0-36.0); Mean Corpuscular Volume 86.6 fL (80.0-100.0); Mean Platelet Volume 11.2 fL (9.4-12.4); Monocytes # (auto) 0.56 K/uL (0.11-0.59); Monocytes % (auto) 4.5 %; Neutrophils # (auto) 9.36 K/uL (1.40-6.50); Neutrophils % (auto) 74.9 %; Platelet Count 188 K/uL (130-400); RDW Coefficient of Variation 13.6 % (11.5-14.5); Red Blood Count 3.89 M/uL (4.20-5.40); White Blood Count 12.49 K/ul (4.8-10.8)
[2023-03-16] MEDS: carvediloL 6.25 MG TAB PO SCH (10:43)
[2023-03-16] MEDS: DAPTOmycin 400 MG in SYRINGE 0 ML IV SCH (10:51)
--- NOTE | 2023-03-16 13:50 | Pharmacy Report ---
Pharmacy Glycemic Short Note 2 - Date of Service March 16, 2023 - Glycemic Short BSG Results (Last 24 hours): 03/15/23 03/15/23 03/16/23 16:29 20:25 07:53 POC Glucose 124 H 113 H 115 H 03/16/23 11:47 POC Glucose 116 H OUTPATIENT ANTIDIABETIC REGIMEN: * Levemir 25 units SC BID * Humalog 15 units SC AC HbA1c: 14% (03/14/23) ASSESSMENT: 03/16/23: * BSGs trended down throughout the day yesterday w/ drastically improved fasting BSG this morning * Given this trend - will change basal to BID and scale the evening dose in order to allow for decreased dose if needed 03/14/23: * PD is a 53 year old female admitted last evening w/ LLE extremity cellulitis/wound * History of poorly controlled T2DM (HbA1c: 14%), morbid obesity, and ongoing necrotizing infection of LLE * Will use past inpatient glycemic data to guide initial glycemic regimen * Full outpatient basal daily dose given early this AM - will not need further basal today PLAN FOR INPATIENT GLYCEMIC CONTROL: * Hold outpatient oral diabetes medications * Basal insulin * Lantus 25 units SC x 1 this AM * Lantus 0-25 units SC HS x 1 (see EHR for details) * Bolus insulin * NovoLog per scale ACHS or Q6hrs while NPO * Goal Range: Low 110 mg/dL - High 140 mg/dL * Correction Factor: 25 mg/dL/unit * Nutritional / Prandial insulin per carb ratio of 1 unit per 6 grams CHO consumed
[2023-03-16] MEDS: ACETAMINOPHEN 500 MG TAB PO PRN (15:33)
--- NOTE | 2023-03-16 16:03 | Hospitalist Progress Note ---
Date of Service March 16, 2023 Assessment & Plan (1) Wound of lower extremity: Plan: Per admitting service notes with addendum: This is a 52-year-old female with past medical history significant for type 2 diabetes, hyperlipidemia, chronic sinusitis, hypertension, history of polyneuropathy, iron deficiency anemia due to chronic blood loss, chronic diastolic CHF, chronic kidney disease stage III, morbid obesity, urinary incontinence nocturnal enuresis, myalgia due to simvastatin, history of tobacco abuse. The patient had this ongoing infection in the left lower extremity, initially treated with antibiotics, then she developed necrotizing fasciitis and she was transferred to [facility] in February and status post I and D at [place] and she was admitted to [facility] on 03/21/2022 and discharged on 03/30/2022, in May 2020 she was again admitted here for lower extremity wounds and found to her last abscess and again she was transferred to [place] and after patient I and D was done. Now again comes because of pain in lower extremity and increasing drainage. RIGHT LOWER LEG WOUND, FOOT ULCER LOWER EXTREMITY CELLULITIS In setting of chronic lower leg edema Acute on chronic infection Developed necrotizing fasciitis and was transferred to [place] in February 2022 Developed abscess and was again transferred to [place] in May 2022 Supposed to follow with wound clinic but states not following because of transport issues Comes because of increased pain and drainage from the lower extremities No obvious abscess on the imaging studies 03/16 Blood culture: Negative so far Wound cultures: Pending Clinically stable overall Wound care nurse on board Podiatry service consulted-no procedures planned at this point General surgery service consulted-does not recommend surgical debridement at this point Continue daptomycin day #2 Continue IV Zosyn day #3 Continue Lasix 40 mg daily Continue AmLactin twice daily Daily dressings UTI UA positive Urine culture: E. coli Continue IV Zosyn Hypertensive urgency Resolved Blood pressure stable We will continue home lisinopril Resume usual home metoprolol XL 25 mg p.o. 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 Lasix Chronic kidney stage III PRP pending Iron deficiency anemia On iron supplements Hemoglobin stable Diabetic neuropathy On gabapentin DVT prophylaxis Lovenox Disposition Will need to transition to acute rehab or nursing home facility Full code plan of care discussed with patient in detail and at length all questions answered She is understanding, agreeable, comfortable with the plan of care (2) UTI (urinary tract infection): Admission and Anticipated Discharge Date Admission Date: March 13, 2023 Subjective ff up for right lower leg wounds, cellulitis, etc. Seen resting in bed, comfortable, not in distress Was feeling dizzy last night, attributes to Coreg Still having right lower leg discomfort No fevers or chills No other new symptoms Review of Systems Review of Systems: all noted and negative except for above Physical Exam Physical Exam: General- oriented x 3, not in distress, speaks in sentences with no effort or accessory muscle use Eyes- anicteric Neck- no JVD Lungs- clear breath sounds bilaterally, no rales/wheezes Heart- normal rate, regular rhythm; no murmurs Abdomen- normal bowel sounds, nondistended, soft, nontender Extremities-right lower extremity: Less edema, less erythema Right heel ulcer-no active bleeding or discharge Neuro- alert, oriented x 3; no gross focal neurologic deficits Skin- warm & dry Results & Data Results & Data Vital Signs (Past 12 Hours) Vital Signs Temp Pulse Pulse Resp BP BP Pulse Ox 03/16/23 15:38 81 03/16/23 15:21 38.0 C H 78 18 148/63 H 93 03/16/23 08:00 03/16/23 11:33 37.0 C 80 16 155/69 H 96 03/16/23 07:51 36.8 C 67 18 132/76 97 03/16/23 07:26 70 O2 Del Method 03/16/23 15:38 03/16/23 15:21 Room Air 03/16/23 08:00 Room Air 03/16/23 11:33 Room Air 03/16/23 07:51 Room Air 03/16/23 07:26 all noted and reviewed including below
[2023-03-16 19:01] LABS: Calcium 8.3 mg/dl (8.6-10.3); Creatinine Clr Calc Pharmacy 37.2 ml/min; Potassium 4.5 mmol/L (3.5-5.1)
[2023-03-16] MEDS: GABAPENTIN 300 MG CAP PO SCH (20:52)
[2023-03-17] MEDS: PIPERACILLIN/TAZOBACTAM 4.5 GM in DEXTROSE 5% 100 ML IV SCH ×3 (04:10→19:44)
[2023-03-17] MEDS: ACETAMINOPHEN 500 MG TAB PO PRN (04:25)
[2023-03-17] MEDS: ENOXAPARIN INJ 40 MG/0.4 ML SYR SQ SCH (06:17)
[2023-03-17] MEDS: AMMONIUM LACTATE 12% LOTION 225 GM BTL EXT SCH ×2 (08:09→20:08)
[2023-03-17] MEDS: SACCHAROMYCES BOULARDII 250 MG CAP PO SCH ×2 (08:10→20:09)
[2023-03-17] MEDS: ASPIRIN 81 MG ECTAB PO SCH (08:11)
[2023-03-17] MEDS: FUROSEMIDE 40 MG TAB PO SCH (08:11)
[2023-03-17] MEDS: lisinopril 20 MG TAB PO SCH (08:11)
[2023-03-17] MEDS: CYANOCOBALAMIN (B-12) 500 MCG TABLET PO SCH (08:11)
[2023-03-17] MEDS: METOPROLOL SUCC 25MG EXT REL TAB PO SCH (08:12)
[2023-03-17] MEDS: TRIAMCINOLONE ACET 0.1% CR 15 GM TUBE TOP SCH ×2 (08:13→20:09)
[2023-03-17] MEDS: INSULIN ASPART PER UNIT CHARGE SC SCH ×4 (08:18→20:15)
[2023-03-17] MEDS: POTASSIUM CHLORIDE 10 MEQ TABCR PO SCH (08:43)
[2023-03-17] MEDS: FERROUS SULFATE 325 MG TAB PO SCH (08:49)
[2023-03-17] MEDS ORDERED: LANTUS PER UNIT CHARGE SC SCH ×2 (09:00→21:00)
[2023-03-17] MEDS: SODIUM CHLORIDE 0.9% 1000ML 1,000 ML IV SCH ×2 (09:16→17:30)
[2023-03-17] MEDS: DAPTOmycin 400 MG in SYRINGE 0 ML IV SCH (10:22)
[2023-03-17 10:33] LABS: Basophils # (auto) 0.05 K/uL (0-0.2); Basophils % (auto) 0.8 %; Eosinophils # (auto) 0.21 K/uL (0-0.50); Eosinophils % (auto) 3.2 %; Hematocrit (blood only) 29.5 % (37.0-47.0); Hemoglobin 9.4 g/dl (12.0-16.0); Immature Granulocytes # (auto) 0.03 K/uL (0.01-0.20); Immature Granulocytes % (auto) 0.5 %; Lymphocytes # (auto) 1.26 K/uL (1.2-3.4); Lymphocytes % (auto) 19.1 %; Mean Corpuscular Hemoglobin 27.8 pg (25.0-34.0); Mean Corpuscular Hgb Conc 31.9 g/dL (32.0-36.0); Mean Corpuscular Volume 87.3 fL (80.0-100.0); Mean Platelet Volume 11.2 fL (9.4-12.4); Monocytes % (auto) 7.6 %; Neutrophils # (auto) 4.53 K/uL (1.40-6.50); Neutrophils % (auto) 68.8 %; Platelet Count 215 K/uL (130-400); RDW Coefficient of Variation 13.7 % (11.5-14.5); RDW Standard Deviation 43.6 fL (36.4-46.3); Red Blood Count 3.38 M/uL (4.20-5.40); White Blood Count 6.58 K/ul (4.8-10.8)
[2023-03-17 10:44] LABS: BUN Creatinine Ratio 12.7 (10-20); Calcium 8.3 mg/dl (8.6-10.3); Creatinine Clr Calc Pharmacy 36.6 ml/min; Est GFR (African American) 21.7 ml/min; Est GFR (Non-African American) 18.7 ml/min; Potassium 4.4 mmol/L (3.5-5.1)
[2023-03-17] MEDS: traMADol HCL 50 MG TABLET PO PRN (15:10)
--- NOTE | 2023-03-17 17:16 | Hospitalist Progress Note ---
Date of Service March 17, 2023 Assessment & Plan (1) Wound of lower extremity: Plan: Per admitting service notes with addendum: This is a 52-year-old female with past medical history significant for type 2 diabetes, hyperlipidemia, chronic sinusitis, hypertension, history of polyneuropathy, iron deficiency anemia due to chronic blood loss, chronic diastolic CHF, chronic kidney disease stage III, morbid obesity, urinary incontinence nocturnal enuresis, myalgia due to simvastatin, history of tobacco abuse. The patient had this ongoing infection in the left lower extremity, initially treated with antibiotics, then she developed necrotizing fasciitis and she was transferred to [facility] in February and status post I and D at [place] and she was admitted to [facility] on 03/21/2022 and discharged on 03/30/2022, in May 2020 she was again admitted here for lower extremity wounds and found to her last abscess and again she was transferred to [place] and after patient I and D was done. Now again comes because of pain in lower extremity and increasing drainage. RIGHT LOWER LEG WOUND, FOOT ULCER LOWER EXTREMITY CELLULITIS In setting of chronic lower leg edema Acute on chronic infection Developed necrotizing fasciitis and was transferred to [place] in February 2022 Developed abscess and was again transferred to [place] in May 2022 Supposed to follow with wound clinic but states not following because of transport issues Comes because of increased pain and drainage from the lower extremities No obvious abscess on the imaging studies 03/17 Blood culture: Negative so far Wound cultures: Pending Clinically stable overall Wound care nurse on board Podiatry service consulted-no procedures planned at this point General surgery service consulted-does not recommend surgical debridement at this point Continue daptomycin day #3 Continue IV Zosyn day #4 Lasix 40 mg daily--> held in light of acute kidney injury Continue AmLactin twice daily Daily dressings MRI of the foot ordered to rule osteomyelitis Acute kidney injury Possible contrast-induced nephropathy, underlying infection also contributing Hold Lasix, lisinopril NSS at 125 cc/h Repeat labs tomorrow UTI UA positive Urine culture: E. coli Continue IV Zosyn Hypertensive urgency Resolved Blood pressure stable We will continue home lisinopril Resume usual home metoprolol XL 25 mg p.o. 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 Lasix Chronic kidney stage III DAHLIA, management per above Iron deficiency anemia On iron supplements Hemoglobin stable Diabetic neuropathy On gabapentin DVT prophylaxis Lovenox Disposition Will need to transition to acute rehab or residential facility Full code plan of care discussed with patient in detail and at length all questions answered She is understanding, agreeable, comfortable with the plan of care (2) UTI (urinary tract infection): Admission and Anticipated Discharge Date Admission Date: March 13, 2023 Subjective Follow-up for left lower extremity cellulitis, infected left heel ulcer, etc. Resting in bed, comfortable, not in distress Sleeping but easily awakened States she feels slightly better compared to yesterday No dizziness, feels very tired, thirsty Left lower extremity discomfort slightly better but still significant Especially with movement No fevers or chills No any other symptoms Review of Systems Review of Systems: all noted and negative except for above Physical Exam Physical Exam: General- oriented x 3, not in distress, speaks in sentences with no effort or accessory muscle use Eyes- anicteric Neck- no JVD Lungs- clear breath sounds bilaterally, no rales/wheezes Heart- normal rate, regular rhythm; no murmurs Abdomen- normal bowel sounds, nondistended, soft, nontender Extremities-right lower extremity: Positive mild to moderate edema Left lower extremity: Edema improving, erythema also improving as well as tenderness in 1 Left heel ulcer, no bleeding or discharge, positive surrounding erythema Neuro- alert, oriented x 3; no gross focal neurologic deficits Skin- warm & dry Results & Data Results & Data Vital Signs (Past 12 Hours) Vital Signs Temp Pulse Pulse Resp BP BP Pulse Ox 03/17/23 14:56 65 03/17/23 11:19 36.9 C 18 132/80 92 03/17/23 08:53 69 03/17/23 07:54 36.6 C 66 19 99/63 L 93 O2 Del Method 03/17/23 14:56 03/17/23 11:19 Room Air 03/17/23 08:53 03/17/23 07:54 Room Air all noted and reviewed including below
[2023-03-17] MEDS: GABAPENTIN 300 MG CAP PO SCH (20:09)
[2023-03-17] MEDS: HEPARIN SOD 5,000 UNIT/0.5 ML VIAL SQ SCH (20:09)
[2023-03-17] MEDS: LABETALOL HCL IV 5 MG/ML 20ML IV PRN (22:44)
[2023-03-18] MEDS: SODIUM CHLORIDE 0.9% 1000ML 1,000 ML IV SCH ×3 (00:55→16:33)
[2023-03-18] MEDS: PIPERACILLIN/TAZOBACTAM 4.5 GM in DEXTROSE 5% 100 ML IV SCH (03:33)
[2023-03-18 06:42] LABS: BUN Creatinine Ratio 14.9 (10-20); Calcium 8.3 mg/dl (8.6-10.3); Creatinine Clr Calc Pharmacy 38.5 ml/min; Est GFR (African American) 23.1 ml/min; Est GFR (Non-African American) 19.9 ml/min; Potassium 4.5 mmol/L (3.5-5.1)
--- NOTE | 2023-03-18 08:08 | Magnetic Resonance Report ---
MR ankle LT wo con CLINICAL HISTORY: Left heel/plantar foot wound COMPARISON STUDY: Left foot radiographs and CT of the left foot March 13, 2023. MRI of the left foot February 28, 2022. TECHNIQUE: Utilizing a 1.5 [place] magnet and dedicated coil, multiplanar, multi echo imaging of the le ft ankle and hindfoot was performed without intravenous contrast. FINDINGS: Extensive subcutaneous edema of the left lower leg, ankle and visualized portions of the le ft foot is noted. No fluid collection is identified. A left heel wound is noted. There is no marrow e joan within the left ankle/hindfoot to suggest acute osteomyelitis. No fractures are identified. The Achilles tendon is intact. Plantar fascia is unremarkable. There is a small tibiotalar joint effusion . Subtalar joint is intact. Visualized portions of the flexor, extensor and peroneal tendons are inta ct. Talar dome is unremarkable. IMPRESSION: 1. No evidence for osteomyelitis within the left ankle or hindfoot. 2. Extensive subcutaneous fluid within the left lower leg, ankle and visualized portions of the left foot. This could reflect edema or cellulitis. No fluid collection. 3. Left heel wound. No associated fluid collection. ACT 112: Negative or not required by law. Electronically signed by: Roberto Knox M.D. 03/18/2023 8:07 AM
[2023-03-18] MEDS: AMMONIUM LACTATE 12% LOTION 225 GM BTL EXT SCH ×2 (08:34→21:53)
[2023-03-18] MEDS: TRIAMCINOLONE ACET 0.1% CR 15 GM TUBE TOP SCH ×2 (08:35→22:04)
[2023-03-18] MEDS: METOPROLOL SUCC 25MG EXT REL TAB PO SCH (08:36)
[2023-03-18] MEDS: FERROUS SULFATE 325 MG TAB PO SCH (08:36)
[2023-03-18] MEDS: CYANOCOBALAMIN (B-12) 500 MCG TABLET PO SCH (08:36)
[2023-03-18] MEDS: SACCHAROMYCES BOULARDII 250 MG CAP PO SCH ×2 (08:36→22:03)
[2023-03-18] MEDS: HEPARIN SOD 5,000 UNIT/0.5 ML VIAL SQ SCH ×3 (08:37→21:55)
[2023-03-18] MEDS: INSULIN ASPART PER UNIT CHARGE SC SCH ×4 (08:42→20:14)
[2023-03-18] MEDS: LANTUS PER UNIT CHARGE SC SCH ×2 (08:42→22:19)
[2023-03-18] MEDS: DAPTOmycin 400 MG in SYRINGE 0 ML IV SCH (10:50)
[2023-03-18] MEDS: CEFEPIME 2,000 MG in SYRINGE 0 ML IV SCH ×2 (11:06→22:34)
--- NOTE | 2023-03-18 17:20 | Hospitalist Progress Note ---
Date of Service March 18, 2023 Assessment & Plan (1) Wound of lower extremity: Plan: Per admitting service notes with addendum: This is a 52-year-old female with past medical history significant for type 2 diabetes, hyperlipidemia, chronic sinusitis, hypertension, history of polyneuropathy, iron deficiency anemia due to chronic blood loss, chronic diastolic CHF, chronic kidney disease stage III, morbid obesity, urinary incontinence nocturnal enuresis, myalgia due to simvastatin, history of tobacco abuse. The patient had this ongoing infection in the left lower extremity, initially treated with antibiotics, then she developed necrotizing fasciitis and she was transferred to [facility] in February and status post I and D at [place] and she was admitted to [facility] on 03/21/2022 and discharged on 03/30/2022, in May 2020 she was again admitted here for lower extremity wounds and found to her last abscess and again she was transferred to [place] and after patient I and D was done. Now again comes because of pain in lower extremity and increasing drainage. RIGHT LOWER LEG WOUND, FOOT/HEEL ULCER LOWER EXTREMITY CELLULITIS In setting of chronic lower leg edema Acute on chronic infection Developed necrotizing fasciitis and was transferred to [place] in February 2022 Developed abscess and was again transferred to [place] in May 2022 Supposed to follow with wound clinic but states not following because of transport issues Comes because of increased pain and drainage from the lower extremities No obvious abscess on the imaging studies 03/18 Blood culture: Negative after 48 hours Wound cultures: Low counts mixed probable skin microbiota, no further identification/sensitivities to follow MRI left foot: No osteomyelitis Wound care nurse on board Podiatry service consulted-will continue to monitor, may need bedside debridement depending on progress General surgery service consulted-does not recommend surgical debridement of left lower leg wounds Afebrile Still having significant pain in the leg and the foot Left lower leg wound, erythema, edema improving Left lower heel ulcer about the same Continue daptomycin day #4 Change IV Zosyn day #4 to IV cefepime day #1 Lasix 40 mg daily--> held in light of acute kidney injury Continue AmLactin twice daily Daily dressings ACUTE KIDNEY INJURY Possible contrast-induced nephropathy, underlying infection also contributing Hold Lasix, lisinopril NSS at 125 cc/h Creatinine 1.0--> 2.7--> 2.6 We will consult nephrology service UTI UA positive Urine culture: E. coli Change IV Zosyn day #2 to IV cefepime day #1 HYPERTENSIVE URGENCY Resolved Blood pressure stable We will continue home lisinopril Resume usual home metoprolol XL 25 mg p.o. 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 CHRONIC DIASTOLIC CHF Lasix on hold secondary to acute kidney injury CHRONIC KIDNEY STAGE III DAHLIA, management per above Iron deficiency anemia On iron supplements Hemoglobin stable Diabetic neuropathy On gabapentin DVT prophylaxis Lovenox Disposition Will need to transition to acute rehab or alf facility Full code plan of care discussed with patient in detail and at length all questions answered She is understanding, agreeable, comfortable with the plan of care (2) UTI (urinary tract infection): Admission and Anticipated Discharge Date Admission Date: March 13, 2023 Subjective Follow-up for left lower extremity cellulitis, left foot heel ulcer, etc. Seen resting in bed, comfortable, not in distress, in good spirits States she feels better today compared to yesterday No dizziness Still having significant pain over the left lower extremity and foot No problems with urination No other new symptoms Review of Systems Review of Systems: all noted and negative except for above Physical Exam Physical Exam: General- oriented x 3, not in distress, speaks in sentences with no effort or accessory muscle use Eyes- anicteric Neck- no JVD Lungs- clear breath sounds bilaterally, no rales/wheezes Heart- normal rate, regular rhythm; no murmurs Abdomen- normal bowel sounds, nondistended, soft, nontender Extremities- no pretibial edema, no calf tenderness Left lower extremity: Edema improving, erythema also improving as well as tenderness Left heel ulcer, no bleeding or discharge, positive surrounding erythema Neuro- alert, oriented x 3; no gross focal neurologic deficits Skin- warm & dry Results & Data Results & Data Vital Signs (Past 12 Hours) Vital Signs Temp Pulse Pulse Resp BP BP Pulse Ox 03/18/23 15:12 66 03/18/23 11:28 36.4 C L 67 20 136/81 90 03/18/23 08:48 64 03/18/23 07:51 36.6 C 63 19 131/71 91 O2 Del Method 03/18/23 15:12 03/18/23 11:28 Room Air 03/18/23 08:48 03/18/23 07:51 Room Air all noted and reviewed including below
[2023-03-18] MEDS: ACETAMINOPHEN 500 MG TAB PO PRN (19:59)
[2023-03-18] MEDS: GABAPENTIN 300 MG CAP PO SCH (21:54)
[2023-03-18] MEDS: traMADol HCL 50 MG TABLET PO PRN (22:20)
[2023-03-19] MEDS: CEFEPIME 2,000 MG in SYRINGE 0 ML IV SCH ×3 (00:05→21:54)
[2023-03-19] MEDS: SODIUM CHLORIDE 0.9% 1000ML 1,000 ML IV SCH ×2 (02:07→16:01)
[2023-03-19] MEDS: CYANOCOBALAMIN (B-12) 500 MCG TABLET PO SCH (08:22)
[2023-03-19] MEDS: AMMONIUM LACTATE 12% LOTION 225 GM BTL EXT SCH ×2 (08:22→21:34)
[2023-03-19] MEDS: TRIAMCINOLONE ACET 0.1% CR 15 GM TUBE TOP SCH ×2 (08:22→21:34)
[2023-03-19] MEDS: METOPROLOL SUCC 25MG EXT REL TAB PO SCH (08:23)
[2023-03-19] MEDS: FERROUS SULFATE 325 MG TAB PO SCH (08:23)
[2023-03-19] MEDS: SACCHAROMYCES BOULARDII 250 MG CAP PO SCH ×2 (08:23→21:35)
[2023-03-19] MEDS: HEPARIN SOD 5,000 UNIT/0.5 ML VIAL SQ SCH ×3 (08:28→21:34)
[2023-03-19] MEDS: INSULIN ASPART PER UNIT CHARGE SC SCH ×4 (08:59→21:48)
[2023-03-19] MEDS: ACETAMINOPHEN 500 MG TAB PO PRN (08:59)
[2023-03-19] MEDS: LANTUS PER UNIT CHARGE SC SCH ×2 (09:00→21:50)
--- NOTE | 2023-03-19 09:01 | Hospitalist Progress Note ---
Date of Service March 19, 2023 Assessment & Plan (1) Wound of lower extremity: Plan: This is a 52-year-old female with past medical history significant for type 2 diabetes, hyperlipidemia, chronic sinusitis, hypertension, history of polyneuropathy, iron deficiency anemia due to chronic blood loss, chronic diastolic CHF, chronic kidney disease stage III, morbid obesity, urinary incontinence nocturnal enuresis, myalgia due to simvastatin, history of tobacco abuse. The patient had this ongoing infection in the left lower extremity, initially treated with antibiotics, then she developed necrotizing fasciitis and she was transferred to [facility] in February and status post I and D at [place] and she was admitted to [facility] on 03/21/2022 and discharged on 03/30/2022, in May 2020 she was again admitted here for lower extremity wounds and found to her last abscess and again she was transferred to [place] and after patient I and D was done. Now again comes because of pain in lower extremity and increasing drainage. RIGHT LOWER LEG WOUND, FOOT/HEEL ULCER LOWER EXTREMITY CELLULITIS In setting of chronic lower leg edema Acute on chronic infection Developed necrotizing fasciitis and was transferred to [place] in February 2022 Developed abscess and was again transferred to [place] in May 2022 Supposed to follow with wound clinic but states not following because of transport issues Comes because of increased pain and drainage from the lower extremities No obvious abscess on the imaging studies Blood culture: Negative Wound cultures: Low counts mixed probable skin microbiota, no further identification/sensitivities to follow MRI left foot: No osteomyelitis Wound care nurse consulted Podiatry service consulted-will continue to monitor, may need bedside debridement depending on progress General surgery service consulted-does not recommend surgical debridement of left lower leg wounds Afebrile pain in the leg and the foot much improved w/ boot Left lower leg wound, erythema, edema improving Left lower heel ulcer about the same Continue daptomycin day #5 Changed IV Zosyn day #4 to IV cefepime day #2 Lasix 40 mg daily--> held in light of acute kidney injury Continue AmLactin twice daily Daily dressings Cont. boot - pt feels much better when wearing it ACUTE KIDNEY INJURY Possible contrast-induced nephropathy, underlying infection also contributing Hold Lasix, lisinopril received NSS at 125 cc/h Creatinine 1.0--> 2.7--> 2.6 Nephrology service consulted - stop IVF, appreciate their input Monitor BMP UTI UA positive Urine culture: E. coli Changed IV Zosyn to IV cefepime day #2 HYPERTENSIVE URGENCY Resolved Blood pressure stable home lisinopril on hold d/t dahlia Resume usual home metoprolol XL 25 mg p.o. 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 Seen resting in bed, comfortable, not in distress, in good spirits States her foot feels better since wearing a boot Denies any issues w/urination, however Cr up and nephrology was consulted Review of Systems Review of Systems: All systems reviewed & are unremarkable except as noted in Subjective Physical Exam Physical Exam: General- oriented x 3, not in distress, speaks in sentences with no effort or accessory muscle use Eyes- anicteric Neck- no JVD Lungs- clear breath sounds bilaterally, no rales/wheezes Heart- normal rate, regular rhythm; no murmurs Abdomen- normal bowel sounds, nondistended, soft, nontender Extremities- no pretibial edema, no calf tenderness Left lower extremity: Edema improving, erythema also improving as well as tenderness Left heel ulcer, no bleeding or discharge, positive surrounding erythema wearing a boot Neuro- alert, oriented x 3; no gross focal neurologic deficits Skin- warm & dry Results & Data Results & Data Vital Signs (Past 12 Hours) Vital Signs Temp Pulse Pulse Resp BP Pulse Ox Pulse Ox 03/19/23 08:09 36.4 C L 60 18 142/84 H 91 03/19/23 04:00 91 03/19/23 04:01 36.6 C 61 20 131/56 L 91 03/18/23 22:45 68 03/18/23 22:40 36.6 C 66 18 163/85 H 91 O2 Del Method O2 Del Method 03/19/23 08:09 Room Air 08/02/23 04:00 Room Air 03/19/23 04:01 Room Air 03/18/23 22:45 03/18/23 22:40 Room Air Laboratory Results 03/19/23 03/19/23 03/19/23 Range/Units 15:48 11:25 08:53 WBC 5.94 (4.8-10.8) K/ul RBC 3.63 L (4.20-5.40) M/uL Hgb 10.1 L (12.0-16.0) g/dl Hct 32.4 L (37.0-47.0) % MCV 89.3 (80.0-100.0) fL MCH 27.8 (25.0-34.0) pg MCHC 31.2 L (32.0-36.0) g/dL RDW Std Deviation 45.2 (36.4-46.3) fL RDW Coeff of Mya 14.1 (11.5-14.5) % Plt Count 212 (130-400) K/uL MPV 11.4 (9.4-12.4) fL Sodium (136-145) mmol/L Potassium (3.5-5.1) mmol/L Chloride (98-107) mmol/L Carbon Dioxide (21-32) mmol/L Anion Gap (3-11) BUN (6-23) mg/dl Creatinine (0.6-1.2) mg/dl Est Cr Clr Drug Dosing ml/min Est GFR ( Amer) ml/min Est GFR (Non-Af Amer) ml/min BUN/Creatinine Ratio (10-20) Glucose (70-99(Fasting)) mg/dl POC Glucose 120 H 191 H (70-99) mg/dl Calcium (8.6-10.3) mg/dl Phosphorus (2.5-4.9) mg/dl Magnesium (1.7-2.4) mg/dl 03/19/23 03/19/23 03/18/23 Range/Units 08:48 07:45 20:05 WBC (4.8-10.8) K/ul RBC (4.20-5.40) M/uL Hgb (12.0-16.0) g/dl Hct (37.0-47.0) % MCV (80.0-100.0) fL MCH (25.0-34.0) pg MCHC (32.0-36.0) g/dL RDW Std Deviation (36.4-46.3) fL RDW Coeff of Mya (11.5-14.5) % Plt Count (130-400) K/uL MPV (9.4-12.4) fL Sodium 140 (136-145) mmol/L Potassium 4.6 (3.5-5.1) mmol/L Chloride 109 H (98-107) mmol/L Carbon Dioxide 23 (21-32) mmol/L Anion Gap 8 (3-11) BUN 43 H (6-23) mg/dl Creatinine 2.42 H (0.6-1.2) mg/dl Est Cr Clr Drug Dosing 41.8 ml/min Est GFR ( Amer) 25.4 ml/min Est GFR (Non-Af Amer) 21.9 ml/min BUN/Creatinine Ratio 17.8 (10-20) Glucose 107 H (70-99(Fasting)) mg/dl POC Glucose 124 H 128 H (70-99) mg/dl Calcium 8.5 L (8.6-10.3) mg/dl Phosphorus 5.6 H (2.5-4.9) mg/dl Magnesium 2.0 (1.7-2.4) mg/dl 03/18/23 Range/Units 16:30 WBC (4.8-10.8) K/ul RBC (4.20-5.40) M/uL Hgb (12.0-16.0) g/dl Hct (37.0-47.0) % MCV (80.0-100.0) fL MCH (25.0-34.0) pg MCHC (32.0-36.0) g/dL RDW Std Deviation (36.4-46.3) fL RDW Coeff of Mya (11.5-14.5) % Plt Count (130-400) K/uL MPV (9.4-12.4) fL Sodium (136-145) mmol/L Potassium (3.5-5.1) mmol/L Chloride (98-107) mmol/L Carbon Dioxide (21-32) mmol/L Anion Gap (3-11) BUN (6-23) mg/dl Creatinine (0.6-1.2) mg/dl Est Cr Clr Drug Dosing ml/min Est GFR ( Amer) ml/min Est GFR (Non-Af Amer) ml/min BUN/Creatinine Ratio (10-20) Glucose (70-99(Fasting)) mg/dl POC Glucose 156 H (70-99) mg/dl Calcium (8.6-10.3) mg/dl Phosphorus (2.5-4.9) mg/dl Magnesium (1.7-2.4) mg/dl Medications Administered Current Inpatient Medications Acetaminophen (Acetaminophen 500 Mg Tab) 1,000 mg PO Q6H PRN PRN Reason: Pain Stop: 04/13/23 01:38 Last Admin: 03/18/23 19:59 Dose: 1,000 mg Aspirin (Aspirin 81 Mg Ectab) 81 mg PO DAILY MOHAMUD Stop: 04/13/23 08:59 Last Admin: 03/17/23 08:11 Dose: 81 mg Cyanocobalamin (Cyanocobalamin (B-12) 500 Mcg Tablet) 1,000 mcg PO DAILY MOHAMUD Stop: 04/13/23 08:59 Last Admin: 03/19/23 08:22 Dose: 1,000 mcg Dextrose (Dextrose 50% 50 Ml Syringe) 25 - 50 ml IV UD PRN; Protocol PRN Reason: Hypoglycemia Protocol Stop: 04/13/23 01:38 Docusate Sodium (Docusate Sodium 100 Mg Cap) 100 mg PO BID PRN PRN Reason: Constipation Stop: 04/13/23 01:38 Ferrous Sulfate (Ferrous Sulfate 325 Mg Tab) 325 mg PO DAILY MOHAMUD Stop: 04/13/23 08:59 Last Admin: 03/19/23 08:23 Dose: 325 mg Gabapentin (Gabapentin 300 Mg Cap) 600 mg PO HS MOHAMUD Stop: 04/13/23 01:38 Last Admin: 03/18/23 21:54 Dose: 600 mg Glucagon (Glucagon For Inj 1 Mg Vial) 1 mg SQ UD PRN; Protocol PRN Reason: Hypoglycemia Protocol Stop: 04/13/23 01:38 Glucose (Glucose 40% Gel 15 Gm Tube) 15 - 30 gm PO UD PRN; Protocol PRN Reason: Hypoglycemia Protocol Stop: 04/13/23 01:38 Glucose (Glucose 10 Tab/Tube) 4 - 8 tab PO UD PRN; Protocol PRN Reason: Hypoglycemia Treatment Stop: 04/13/23 01:38 Heparin Sodium (Porcine) (Heparin Sod 5,000 Unit/0.5 Ml Vial) 7,500 units SQ TID [facility] Stop: 04/16/23 20:59 Last Admin: 03/19/23 08:28 Dose: 7,500 units Daptomycin 400 mg/ Syringe 8 mls @ 4 mls/min IV Q24H [facility]; Protocol Stop: 03/22/23 10:59 Last Admin: 03/18/23 10:50 Dose: 4 mls/min Promethazine HCl 12.5 mg/ (Sodium Chloride) 50.5 mls @ 202 mls/hr IV Q6H PRN PRN Reason: Nausea And Vomiting Stop: 04/15/23 02:19 Last Infusion: 03/16/23 06:10 Dose: Infused Sodium Chloride (Nss 1000ml) 1,000 mls @ 125 mls/hr IV .Q8H [facility] Stop: 04/16/23 09:14 Last Admin: 03/19/23 02:07 Dose: 125 mls/hr Cefepime HCl 2,000 mg/ Syringe 20 mls @ 5 mls/min IV Q12H [facility]; Protocol Stop: 03/25/23 10:14 Last Admin: 03/19/23 00:05 Dose: 5 mls/min Insulin Aspart (Insulin Aspart Per Unit Charge) 0 units SC ACHS [facility] Stop: 04/13/23 02:14 Last Admin: 03/18/23 20:14 Dose: 3 units Insulin Glargine (Lantus Per Unit Charge) 23 units SC BID [facility] Stop: 04/17/23 08:59 Last Admin: 03/18/23 22:19 Dose: 23 units Labetalol HCl (Labetalol Hcl Iv 5 Mg/Ml 20ml) 10 mg IV Q4H PRN PRN Reason: Hypertension Stop: 04/13/23 01:38 Last Admin: 03/17/23 22:44 Dose: 10 mg Lactic Acid (Ammonium Lactate 12% Lotion 225 Gm Btl) 1 gm EXT BID [facility] Stop: 04/14/23 20:59 Last Admin: 03/19/23 08:22 Dose: 1 gm Lisinopril (Lisinopril 20 Mg Tab) 20 mg PO BID [facility] Stop: 04/13/23 01:38 Last Admin: 03/17/23 08:11 Dose: 20 mg Metoprolol Succinate (Metoprolol Succ 25mg Ext Rel Tab) 25 mg PO QAM MOHAMUD Stop: 04/16/23 08:59 Last Admin: 03/19/23 08:23 Dose: 25 mg Miscellaneous (Carbohydrates For Hypoglycemia ) 15 - 30 gm PO UD PRN PRN Reason: Hypoglycemia Protocol Stop: 04/13/23 01:38 Miscellaneous Information (Pharmacy Glycemic Mgmt Consult) 1 each N/A UD PRN PRN Reason: Consult Stop: 04/13/23 01:38 Nitroglycerin (Nitroglycerin Sl 0.4 Mg/Tab Tab) 0.4 mg SL Q5M PRN PRN Reason: Chest Pain Stop: 04/13/23 01:38 Polyethylene Glycol (Polyethylene (Miralax) 17 Gm Pack) 17 gm PO DAILY PRN PRN Reason: Constipation Stop: 04/13/23 01:38 Potassium Chloride (Potassium Chloride 10 Meq Tabcr) 10 meq PO BID17 [facility] Stop: 04/13/23 08:59 Last Admin: 03/17/23 08:43 Dose: 10 meq Saccharomyces Boulardii (Saccharomyces Boulardii 250 Mg Cap) 250 mg PO BID MOHAMUD Stop: 04/13/23 08:59 Last Admin: 03/19/23 08:23 Dose: 250 mg Tramadol HCl (Tramadol Hcl 50 Mg Tablet) 50 mg PO Q6H PRN PRN Reason: .Moderate pain Stop: 04/13/23 01:38 Last Admin: 03/18/23 22:20 Dose: 50 mg Triamcinolone Acetonide (Triamcinolone Acet 0.1% Cr 15 Gm Tube) 1 appln TOP BID [facility] Stop: 04/13/23 08:59 Last Admin: 03/19/23 08:22 Dose: 1 appln
--- NOTE | 2023-03-19 09:11 | Nephrology Consultation ---
Date of Consultation March 19, 2023 Assessment & Plan (1) DAHLIA (acute kidney injury): She came with a completely normal creatinine of 0.8 as of March 13, 2023. She received IV contrast for CT scan and multiple antibiotic in the setting of acute infection. 2 days later her creatinine went up suddenly to 2.7. Most likely etiology of this acute renal failure is contrast nephropathy/ATN in the setting of contrast exposure with multiple antibiotics exposure acute infection and concomitant use of Lasix and lisinopril. No further work-up is needed for etiology of the acute renal failure especially since creatinine has not gone up further and this morning is slightly better. Patient is not dehydrated and I would not give more fluid Stop IV fluid Continue to hold lisinopril potassium and lisinopril As much as possible avoid nephrotoxic agents including nephrotoxic antibiotics and contrast I expect the creatinine to steadily come down as long as she does not become septic or get further exposure to nephrotoxic agent Continue daily lab Plan Case complexity high and 52 minutes was spent in total chart review care delivery and documentation. History of Present Illness Reason for Consultation: DAHLIA Attending Physician: Jessee Liu MD History of Present Illness 52/F with longstanding type 2 diabetes, hypertension, history of polyneuropathy, iron deficiency anemia due to chronic blood loss, chronic diastolic CHF, chronic kidney disease stage III but fluctuating baseline creatinine, super morbid obesity, urinary incontinence and many other medical problems. . She has had ongoing infection in the left lower extremity, initially treated with antibiotics, then she developed necrotizing fasciitis and was transferred to [facility] in February 2022. Then status post I and D at [place] and was admitted to [facility] on 03/21/2022 and discharged on 03/30/2022. On May 2022 she was again admitted here for lower extremity wounds and found to have abscess and again transferred to [place] for I and D. Because of insurance and cost issue follow-up with wound clinic has been suboptimal. She does have home health comes and checks on her. Prior to hospitalization she was noticing increased drainage from her wound as well as increased pain. Because of this she came to the ER 4 days ago. In the emergency department she did receive CT scan with IV contrast. Creatinine on admission was completely normal at 0.8 on March 13, 2023 . 2 days later it went up suddenly to 2.7 and today is slightly better at 2.6. After the sudden rise in creatinine lisinopril Lasix and potassium was held and patient was given IV fluid which she is still getting . She has received multiple antibiotics including Zosyn daptomycin cefepime but I do not see vancomycin . Currently she denies any fevers. Lives alone but neighbors checks on her and helps her. Says lately her blood pressures running high causing her headaches as outpatient and even as an inpatient it has been running high with very wide fluctuation. Denies any blurred visions. No runny nose or sore throat or cough. Appetite is okay. No dysphagia. No chest pain or shortness of breath. No nausea or abdominal pain. Normal bowel and bladder movements. Review of system-----as detailed in HPI. Unless stated otherwise 12 system reviewed and negative Physical Exam Physical Exam: General- Not in distress morbidly obese Head- atraumatic Neck- supple, no JVD Lungs- clear to auscultation and percussion no added sounds but very limited quality exam Heart- regular rate and rhythm; no murmur, no gallop Abdomen- normal bowel sounds, soft, nontender, no distension reviewed Extremities- lower extremity edema bilaterally with chronic dry skin with chronic skin changes and erythema seen with some drainage from wounds Neuro- alert, oriented x 3; PERRL Skin- warm & dry Allergies Allergy/AdvReac Type Severity Reaction Status Date / Time No Known Allergies Allergy Unknown Verified 03/13/23 19:44 Home Medications Medication Instructions Recorded Confirmed Type Saccharomyces boulardii 250 mg 250 mg PO BID 03/14/22 03/13/23 History capsule aspirin 81 mg tablet,delayed 81 mg PO DAILY 03/14/22 03/13/23 History release docusate sodium 100 mg capsule 100 mg PO BID PRN Constipation 03/14/22 03/13/23 History ferrous sulfate 325 mg (65 mg 325 mg PO DAILY 03/14/22 03/13/23 History iron) tablet furosemide 40 mg tablet (Lasix) 40 mg PO QAM 05/17/22 03/13/23 History gabapentin 300 mg capsule 600 mg PO HS 05/17/22 03/13/23 History insulin detemir U-100 100 unit/mL 25 unit subcut BID 05/17/22 03/13/23 History subcutaneous solution (Levemir U-100 Insulin) insulin lispro 100 unit/mL 15 unit subcut AC 05/17/22 03/13/23 History subcutaneous solution lisinopril 20 mg tablet 20 mg PO BID 05/17/22 03/13/23 History potassium chloride 10 mEq 10 meq PO BID 05/17/22 03/13/23 History capsule,extended release acetaminophen 500 mg tablet 1,000 mg PO Q6H PRN Pain 03/13/23 03/13/23 History (Tylenol Extra Strength) cyanocobalamin (vitamin B-12) 1,000 mcg PO DAILY 03/13/23 03/13/23 History 1,000 mcg tablet (Vitamin B-12) metoprolol succinate 25 mg 25 mg PO QAM 03/13/23 03/13/23 History tablet,extended release 24 hr tramadol 50 mg tablet 50 mg PO Q6H PRN .Moderate pain 03/13/23 03/13/23 History triamcinolone acetonide 0.1 % 1 applic topical BID 03/13/23 03/13/23 History topical cream Patient History Medical History Anemia Back pain Cellulitis of left lower extremity Depression with anxiety Diabetes type 2, uncontrolled Diabetic peripheral neuropathy associated with type 2 diabetes mellitus Dysfunctional uterine bleeding Dyslipidemia Fatigue Hirsutism History of DVT (deep vein thrombosis) HTN (hypertension) Insomnia Loss of protective sensation of skin of foot Obesity Personal history of diabetic foot ulcer Tobacco use Type 2 diabetes mellitus with complications Type 2 diabetes mellitus, with long-term current use of insulin Varicose veins of both lower extremities Vitamin D deficiency Xerosis cutis Surgical History H/O tooth extraction History of History of cholecystectomy History of endometrial ablation History of facial surgery History of hysterectomy History of incision and drainage left foot by Dr. Haq on 10-03-19. History of nasal polypectomy History of tubal ligation Family History Father Dyslipidemia Prostate cancer Diabetes Lung cancer Mother Lung cancer Hypothyroidism Brother Coronary heart disease Asthma Grandfather (Maternal) Myocardial infarction Grandmother (Maternal) Myocardial infarction Grandmother (Paternal) Breast cancer Diabetes Social History Smoking Status: Never smoker Tobacco Type: Cigarettes Hx Alcohol Use: No Hx Substance Use: No Preferred Language: Moldovan Communication Ability: Effective Harpsichord Maker Required: No Beliefs That Will Affect Care: Spiritual marital status: Single Current Living Situation: Alone Current Living Situation Comment: Home, self care Feels Safe at Home: Yes Assistive Devices: Cane and Walker Results & Data Vital Signs (Past 12 Hours) Vital Signs Temp Pulse Pulse Resp BP Pulse Ox Pulse Ox 03/19/23 08:09 36.4 C L 60 18 142/84 H 91 03/19/23 04:00 91 03/19/23 04:01 36.6 C 61 20 131/56 L 91 03/18/23 22:45 68 03/18/23 22:40 36.6 C 66 18 163/85 H 91 O2 Del Method O2 Del Method 03/19/23 08:09 Room Air 03/19/23 04:00 Room Air 03/19/23 04:01 Room Air 03/18/23 22:45 03/18/23 22:40 Room Air
--- NOTE | 2023-03-19 09:44 | XRay Report ---
SINGLE VIEW CHEST CLINICAL HISTORY: Follow-up chest congestion. FINDINGS: An AP, portable, upright chest radiograph is compared to study dated 03/14/2022. The heart i s enlarged. The pulmonary vasculature is nondistended congested. Chronic residual thickening adjacent to previous. There are scattered calcified granulomas. Scarring/atelectasis is noted at the lung bas es. No airspace consolidation or large pleural effusion is identified. No pneumothorax is seen. There is chronic posttraumatic deformity of the left posterior ribs. IMPRESSION: Cardiomegaly with no acute cardiopulmonary abnormality. ACT 112: Negative or not required by law. Electronically signed by: Marvin Brumfield M.D. 03/19/2023 9:43 AM
[2023-03-19 09:59] LABS: Calcium 8.5 mg/dl (8.6-10.3); Potassium 4.6 mmol/L (3.5-5.1)
[2023-03-19 10:05] LABS: BUN Creatinine Ratio 17.8 (10-20); Creatinine Clr Calc Pharmacy 41.8 ml/min; Est GFR (African American) 25.4 ml/min; Est GFR (Non-African American) 21.9 ml/min; Phosphorus 5.6 mg/dl (2.5-4.9)
[2023-03-19 10:13] LABS: Hematocrit (blood only) 32.4 % (37.0-47.0); Hemoglobin 10.1 g/dl (12.0-16.0); Mean Corpuscular Hemoglobin 27.8 pg (25.0-34.0); Mean Corpuscular Hgb Conc 31.2 g/dL (32.0-36.0); Mean Corpuscular Volume 89.3 fL (80.0-100.0); Mean Platelet Volume 11.4 fL (9.4-12.4); Platelet Count 212 K/uL (130-400); RDW Coefficient of Variation 14.1 % (11.5-14.5); RDW Standard Deviation 45.2 fL (36.4-46.3); Red Blood Count 3.63 M/uL (4.20-5.40); White Blood Count 5.94 K/ul (4.8-10.8)
[2023-03-19] MEDS: DAPTOmycin 400 MG in SYRINGE 0 ML IV SCH (11:20)
--- NOTE | 2023-03-19 11:54 | Pharmacy Report ---
Pharmacy Glycemic Short Note 2 - Date of Service March 19, 2023 - Glycemic Short BSG Results (Last 24 hours): 03/18/23 03/18/23 03/18/23 11:52 16:30 20:05 Glucose POC Glucose 148 H 156 H 128 H 03/19/23 03/19/23 03/19/23 07:45 08:48 11:25 Glucose 107 H POC Glucose 124 H 191 H OUTPATIENT ANTIDIABETIC REGIMEN: * Levemir 25 units SC BID * Humalog 15 units SC AC HbA1c: 14% (03/14/23) ASSESSMENT: 03/19 * 73 units SQ insulin given over last 24 hours while tolerating diet. BSGs well controlled. * Fasting BSG 124 this AM with 46 units basal on board - will continue * Post-prandial BSGs well controlled with current Novolog CF and CR - will continue 03/16 * BSGs trended down throughout the day yesterday w/ drastically improved fasting BSG this morning * Given this trend - will change basal to BID and scale the evening dose in order to allow for decreased dose if needed 03/14 * PD is a 53 year old female admitted last evening w/ LLE extremity cellulitis/wound * History of poorly controlled T2DM (HbA1c: 14%), morbid obesity, and ongoing necrotizing infection of LLE * Will use past inpatient glycemic data to guide initial glycemic regimen * Full outpatient basal daily dose given early this AM - will not need further basal today PLAN FOR INPATIENT GLYCEMIC CONTROL: * Hold outpatient oral diabetes medications * Basal insulin * Lantus 23 units BID * Bolus insulin * NovoLog per scale ACHS or Q6hrs while NPO * Goal Range: Low 110 mg/dL - High 140 mg/dL * Correction Factor: 25 mg/dL/unit * Nutritional / Prandial insulin per carb ratio of 1 unit per 6 grams CHO consumed
[2023-03-19] MEDS: GABAPENTIN 300 MG CAP PO SCH (21:34)
[2023-03-19] MEDS: traMADol HCL 50 MG TABLET PO PRN (21:43)
[2023-03-20 06:34] LABS: Hematocrit (blood only) 29.7 % (37.0-47.0); Hemoglobin 9.6 g/dl (12.0-16.0); Mean Corpuscular Hemoglobin 28.2 pg (25.0-34.0); Mean Corpuscular Hgb Conc 32.3 g/dL (32.0-36.0); Mean Corpuscular Volume 87.4 fL (80.0-100.0); Mean Platelet Volume 11.4 fL (9.4-12.4); Platelet Count 226 K/uL (130-400); RDW Coefficient of Variation 14.2 % (11.5-14.5); RDW Standard Deviation 45.3 fL (36.4-46.3); White Blood Count 6.22 K/ul (4.8-10.8)
[2023-03-20 06:48] LABS: BUN Creatinine Ratio 21.1 (10-20); Calcium 8.5 mg/dl (8.6-10.3); Creatinine Clr Calc Pharmacy 44.8 ml/min; Est GFR (African American) 27.5 ml/min; Est GFR (Non-African American) 23.7 ml/min; Phosphorus 4.9 mg/dl (2.5-4.9); Potassium 4.7 mmol/L (3.5-5.1)
[2023-03-20] MEDS: AMMONIUM LACTATE 12% LOTION 225 GM BTL EXT SCH ×2 (07:38→20:41)
[2023-03-20] MEDS: TRIAMCINOLONE ACET 0.1% CR 15 GM TUBE TOP SCH ×2 (07:38→20:42)
[2023-03-20] MEDS: METOPROLOL SUCC 25MG EXT REL TAB PO SCH (07:38)
[2023-03-20] MEDS: FERROUS SULFATE 325 MG TAB PO SCH (07:38)
[2023-03-20] MEDS: CYANOCOBALAMIN (B-12) 500 MCG TABLET PO SCH (07:38)
[2023-03-20] MEDS: SACCHAROMYCES BOULARDII 250 MG CAP PO SCH ×2 (07:39→20:41)
[2023-03-20] MEDS: HEPARIN SOD 5,000 UNIT/0.5 ML VIAL SQ SCH ×3 (07:42→20:41)
[2023-03-20] MEDS: LANTUS PER UNIT CHARGE SC SCH ×2 (08:53→20:54)
[2023-03-20] MEDS: INSULIN ASPART PER UNIT CHARGE SC SCH ×4 (08:53→20:42)
--- NOTE | 2023-03-20 10:56 | Nephrology Progress Note ---
Date of Service March 20, 2023 Assessment & Plan Admission and Anticipated Discharge Date Admission Date: March 13, 2023 Subjective Assessment & Plan (1) DAHLIA (acute kidney injury): She came with a completely normal creatinine of 0.8 as of March 13, 2023. She received IV contrast for CT scan and multiple antibiotic in the setting of acute infection. 2 days later her creatinine went up suddenly to 2.7. Most likely etiology of this acute renal failure is contrast nephropathy/ATN in the setting of contrast exposure with multiple antibiotics exposure acute infection and concomitant use of Lasix and lisinopril. No further work-up is needed for etiology of the acute renal failure especially since creatinine has not gone up further and this morning is slightly better. Continue to hold lisinopril potassium and lisinopril As much as possible avoid nephrotoxic agents including nephrotoxic antibiotics and contrast I expect the creatinine to steadily come down as long as she does not become septic or get further exposure to nephrotoxic agent Continue daily lab. i and o charting S--no new issues. eating and drinking fine. BP slightly high. made 1700 ml urine Physical Exam Physical Exam: General- Not in distress morbidly obese Head- atraumatic Neck- supple, no JVD Lungs- clear to auscultation and percussion no added sounds but very limited quality exam Heart- regular rate and rhythm; no murmur, no gallop Abdomen- normal bowel sounds, soft, nontender, no distension reviewed Extremities- lower extremity edema bilaterally with chronic dry skin with chronic skin changes and erythema seen with some drainage from wounds Neuro- alert, oriented x 3; PERRL Skin- warm & dry Results & Data Vital Signs (Past 12 Hours) Vital Signs Temp Pulse Pulse Resp BP BP Pulse Ox 03/20/23 08:09 36.6 C 65 16 156/80 H 92 03/20/23 03:03 36.8 C 68 20 146/79 H 92 03/19/23 23:53 36.8 C 72 20 148/72 H 91 03/19/23 23:32 71 O2 Del Method 03/20/23 08:09 Room Air 03/20/23 03:03 Room Air 03/19/23 23:53 Room Air 03/19/23 23:32
--- NOTE | 2023-03-20 11:15 | Hospitalist Progress Note ---
Date of Service March 20, 2023 Assessment & Plan (1) Wound of lower extremity: Plan: This is a 52-year-old female with past medical history significant for type 2 diabetes, hyperlipidemia, chronic sinusitis, hypertension, history of polyneuropathy, iron deficiency anemia due to chronic blood loss, chronic diastolic CHF, chronic kidney disease stage III, morbid obesity, urinary incontinence nocturnal enuresis, myalgia due to simvastatin, history of tobacco abuse. The patient had this ongoing infection in the left lower extremity, initially treated with antibiotics, then she developed necrotizing fasciitis and she was transferred to [facility] in February and status post I and D at [place] and she was admitted to [facility] on 03/21/2022 and discharged on 03/30/2022, in May 2020 she was again admitted here for lower extremity wounds and found to her last abscess and again she was transferred to [place] and after patient I and D was done. Now again comes because of pain in lower extremity and increasing drainage. RIGHT LOWER LEG WOUND, FOOT/HEEL ULCER LOWER EXTREMITY CELLULITIS In setting of chronic lower leg edema Acute on chronic infection Developed necrotizing fasciitis and was transferred to [place] in February 2022 Developed abscess and was again transferred to [place] in May 2022 Supposed to follow with wound clinic but states not following because of transport issues Comes because of increased pain and drainage from the lower extremities No obvious abscess on the imaging studies Blood culture: Negative Wound cultures: Low counts mixed probable skin microbiota, no further identification/sensitivities to follow MRI left foot: No osteomyelitis Wound care nurse consulted Podiatry service consulted-will continue to monitor, may need bedside debridement depending on progress General surgery service consulted-does not recommend surgical debridement of left lower leg wounds Afebrile pain in the leg and the foot much improved w/ boot Left lower leg wound, erythema, edema improving Left lower heel ulcer about the same Continue daptomycin Changed IV Zosyn to IV cefepime Lasix 40 mg daily--> held in light of acute kidney injury Continue AmLactin twice daily Daily dressings Cont. boot - pt feels much better when wearing it ACUTE KIDNEY INJURY Possible contrast-induced nephropathy, underlying infection also contributing Hold Lasix, lisinopril received NSS at 125 cc/h Creatinine 1.0--> 2.7--> 2.6 -> 2.2 Nephrology service consulted - stopped IVF, appreciate their input Monitor BMP Cr improved at 2.2 UTI UA positive Urine culture: E. coli Changed IV Zosyn to IV cefepime HYPERTENSIVE URGENCY Resolved Blood pressure stable home lisinopril on hold d/t dahlia Resume usual home metoprolol XL 25 mg p.o. 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 Seen sitting up in chair, comfortable, not in distress, in good spirits States her foot feels better since wearing a boot Denies any issues w/urination, however Cr up and nephrology was consulted. Cr now improved. Review of Systems Review of Systems: All systems reviewed & are unremarkable except as noted in Subjective Physical Exam Physical Exam: General- oriented x 3, not in distress, speaks in sentences with no effort or accessory muscle use Eyes- anicteric Neck- no JVD Lungs- clear breath sounds bilaterally, no rales/wheezes Heart- normal rate, regular rhythm; no murmurs Abdomen- normal bowel sounds, nondistended, soft, nontender Extremities- no pretibial edema, no calf tenderness Left lower extremity: Edema improving, erythema also improving as well as tenderness Left heel ulcer, no bleeding or discharge, positive surrounding erythema wearing a boot Neuro- alert, oriented x 3; no gross focal neurologic deficits Skin- warm & dry Results & Data Results & Data Vital Signs (Past 12 Hours) Vital Signs Temp Pulse Pulse Resp BP BP Pulse Ox 03/20/23 08:09 36.6 C 65 16 156/80 H 92 03/20/23 03:03 36.8 C 68 20 146/79 H 92 03/19/23 23:53 36.8 C 72 20 148/72 H 91 03/19/23 23:32 71 O2 Del Method 03/20/23 08:09 Room Air 03/20/23 03:03 Room Air 03/19/23 23:53 Room Air 03/19/23 23:32 Laboratory Results 03/20/23 03/20/23 03/20/23 Range/Units 07:38 06:01 06:01 WBC 6.22 (4.8-10.8) K/ul RBC 3.40 L (4.20-5.40) M/uL Hgb 9.6 L (12.0-16.0) g/dl Hct 29.7 L (37.0-47.0) % MCV 87.4 (80.0-100.0) fL MCH 28.2 (25.0-34.0) pg MCHC 32.3 (32.0-36.0) g/dL RDW Std Deviation 45.3 (36.4-46.3) fL RDW Coeff of Mya 14.2 (11.5-14.5) % Plt Count 226 (130-400) K/uL MPV 11.4 (9.4-12.4) fL Sodium 139 (136-145) mmol/L Potassium 4.7 (3.5-5.1) mmol/L Chloride 109 H (98-107) mmol/L Carbon Dioxide 23 (21-32) mmol/L Anion Gap 7 (3-11) BUN 48 H (6-23) mg/dl Creatinine 2.27 H (0.6-1.2) mg/dl Est Cr Clr Drug Dosing 44.8 ml/min Est GFR ( Amer) 27.5 ml/min Est GFR (Non-Af Amer) 23.7 ml/min BUN/Creatinine Ratio 21.1 H (10-20) Glucose 101 H (70-99(Fasting)) mg/dl POC Glucose 105 H (70-99) mg/dl Calcium 8.5 L (8.6-10.3) mg/dl Phosphorus 4.9 (2.5-4.9) mg/dl Magnesium 2.0 (1.7-2.4) mg/dl 03/19/23 03/19/23 03/19/23 Range/Units 21:48 15:48 11:25 WBC (4.8-10.8) K/ul RBC (4.20-5.40) M/uL Hgb (12.0-16.0) g/dl Hct (37.0-47.0) % MCV (80.0-100.0) fL MCH (25.0-34.0) pg MCHC (32.0-36.0) g/dL RDW Std Deviation (36.4-46.3) fL RDW Coeff of Mya (11.5-14.5) % Plt Count (130-400) K/uL MPV (9.4-12.4) fL Sodium (136-145) mmol/L Potassium (3.5-5.1) mmol/L Chloride (98-107) mmol/L Carbon Dioxide (21-32) mmol/L Anion Gap (3-11) BUN (6-23) mg/dl Creatinine (0.6-1.2) mg/dl Est Cr Clr Drug Dosing ml/min Est GFR ( Amer) ml/min Est GFR (Non-Af Amer) ml/min BUN/Creatinine Ratio (10-20) Glucose (70-99(Fasting)) mg/dl POC Glucose 128 H 120 H 191 H (70-99) mg/dl Calcium (8.6-10.3) mg/dl Phosphorus (2.5-4.9) mg/dl Magnesium (1.7-2.4) mg/dl Medications Administered Current Inpatient Medications Acetaminophen (Acetaminophen 500 Mg Tab) 1,000 mg PO Q6H PRN PRN Reason: Pain Stop: 04/13/23 01:38 Last Admin: 03/19/23 08:59 Dose: 1,000 mg Aspirin (Aspirin 81 Mg Ectab) 81 mg PO DAILY [facility]UD Stop: 04/13/23 08:59 Last Admin: 03/17/23 08:11 Dose: 81 mg Cyanocobalamin (Cyanocobalamin (B-12) 500 Mcg Tablet) 1,000 mcg PO DAILY MOHAMUD Stop: 04/13/23 08:59 Last Admin: 03/20/23 07:38 Dose: 1,000 mcg Dextrose (Dextrose 50% 50 Ml Syringe) 25 - 50 ml IV UD PRN; Protocol PRN Reason: Hypoglycemia Protocol Stop: 04/13/23 01:38 Docusate Sodium (Docusate Sodium 100 Mg Cap) 100 mg PO BID PRN PRN Reason: Constipation Stop: 04/13/23 01:38 Ferrous Sulfate (Ferrous Sulfate 325 Mg Tab) 325 mg PO DAILY MOHAMUD Stop: 04/13/23 08:59 Last Admin: 03/20/23 07:38 Dose: 325 mg Gabapentin (Gabapentin 300 Mg Cap) 600 mg PO HS [facility]UD Stop: 04/13/23 01:38 Last Admin: 03/19/23 21:34 Dose: 600 mg Glucagon (Glucagon For Inj 1 Mg Vial) 1 mg SQ UD PRN; Protocol PRN Reason: Hypoglycemia Protocol Stop: 04/13/23 01:38 Glucose (Glucose 40% Gel 15 Gm Tube) 15 - 30 gm PO UD PRN; Protocol PRN Reason: Hypoglycemia Protocol Stop: 04/13/23 01:38 Glucose (Glucose 10 Tab/Tube) 4 - 8 tab PO UD PRN; Protocol PRN Reason: Hypoglycemia Treatment Stop: 04/13/23 01:38 Heparin Sodium (Porcine) (Heparin Sod 5,000 Unit/0.5 Ml Vial) 7,500 units SQ TID [facility]OH[facility]UD Stop: 04/16/23 20:59 Last Admin: 03/20/23 07:42 Dose: 7,500 units Daptomycin 400 mg/ Syringe 8 mls @ 4 mls/min IV Q24H [facility]; Protocol Stop: 03/22/23 10:59 Last Admin: 03/19/23 11:20 Dose: 4 mls/min Promethazine HCl 12.5 mg/ (Sodium Chloride) 50.5 mls @ 202 mls/hr IV Q6H PRN PRN Reason: Nausea And Vomiting Stop: 04/15/23 02:19 Last Infusion: 03/16/23 06:10 Dose: Infused Cefepime HCl 2,000 mg/ Syringe 20 mls @ 5 mls/min IV Q12H [facility]; Protocol Stop: 03/25/23 10:14 Last Admin: 03/19/23 21:54 Dose: 5 mls/min Insulin Aspart (Insulin Aspart Per Unit Charge) 0 units SC ACHS [facility] Stop: 04/13/23 02:14 Last Admin: 03/20/23 08:53 Dose: 8 units Insulin Glargine (Lantus Per Unit Charge) 22 units SC BID [facility] Stop: 04/19/23 08:59 Last Admin: 03/20/23 08:53 Dose: 22 units Labetalol HCl (Labetalol Hcl Iv 5 Mg/Ml 20ml) 10 mg IV Q4H PRN PRN Reason: Hypertension Stop: 04/13/23 01:38 Last Admin: 03/17/23 22:44 Dose: 10 mg Lactic Acid (Ammonium Lactate 12% Lotion 225 Gm Btl) 1 gm EXT BID [facility] Stop: 04/14/23 20:59 Last Admin: 03/20/23 07:38 Dose: 1 gm Lisinopril (Lisinopril 20 Mg Tab) 20 mg PO BID [facility] Stop: 04/13/23 01:38 Last Admin: 03/17/23 08:11 Dose: 20 mg Metoprolol Succinate (Metoprolol Succ 25mg Ext Rel Tab) 25 mg PO QAM [facility] Stop: 04/16/23 08:59 Last Admin: 03/20/23 07:38 Dose: 25 mg Miscellaneous (Carbohydrates For Hypoglycemia ) 15 - 30 gm PO UD PRN PRN Reason: Hypoglycemia Protocol Stop: 04/13/23 01:38 Miscellaneous Information (Pharmacy Glycemic Mgmt Consult) 1 each N/A UD PRN PRN Reason: Consult Stop: 04/13/23 01:38 Nitroglycerin (Nitroglycerin Sl 0.4 Mg/Tab Tab) 0.4 mg SL Q5M PRN PRN Reason: Chest Pain Stop: 04/13/23 01:38 Polyethylene Glycol (Polyethylene (Miralax) 17 Gm Pack) 17 gm PO DAILY PRN PRN Reason: Constipation Stop: 04/13/23 01:38 Potassium Chloride (Potassium Chloride 10 Meq Tabcr) 10 meq PO BID17 [facility] Stop: 04/13/23 08:59 Last Admin: 03/17/23 08:43 Dose: 10 meq Saccharomyces Boulardii (Saccharomyces Boulardii 250 Mg Cap) 250 mg PO BID [facility] Stop: 04/13/23 08:59 Last Admin: 03/20/23 07:39 Dose: 250 mg Tramadol HCl (Tramadol Hcl 50 Mg Tablet) 50 mg PO Q6H PRN PRN Reason: .Moderate pain Stop: 04/13/23 01:38 Last Admin: 03/19/23 21:43 Dose: 50 mg Triamcinolone Acetonide (Triamcinolone Acet 0.1% Cr 15 Gm Tube) 1 appln TOP BID [facility] Stop: 04/13/23 08:59 Last Admin: 03/20/23 07:38 Dose: 1 appln
[2023-03-20] MEDS: DAPTOmycin 400 MG in SYRINGE 0 ML IV SCH (11:29)
[2023-03-20] MEDS: ACETAMINOPHEN 500 MG TAB PO PRN (11:29)
[2023-03-20] MEDS: CEFEPIME 2,000 MG in SYRINGE 0 ML IV SCH ×2 (11:29→22:42)
[2023-03-20] MEDS: GABAPENTIN 300 MG CAP PO SCH (20:41)
[2023-03-21] MEDS: ACETAMINOPHEN 500 MG TAB PO PRN ×3 (02:18→22:49)
[2023-03-21 07:01] LABS: BUN Creatinine Ratio 22.2 (10-20); Calcium 8.4 mg/dl (8.6-10.3); Creatinine Clr Calc Pharmacy 43.9 ml/min; Est GFR (Non-African American) 23.3 ml/min; Potassium 4.7 mmol/L (3.5-5.1)
--- NOTE | 2023-03-21 07:37 | Hospitalist Progress Note ---
Date of Service March 21, 2023 Assessment & Plan (1) Wound of lower extremity: Plan: This is a 52-year-old female with past medical history significant for type 2 diabetes, hyperlipidemia, chronic sinusitis, hypertension, history of polyneuropathy, iron deficiency anemia due to chronic blood loss, chronic diastolic CHF, chronic kidney disease stage III, morbid obesity, urinary incontinence nocturnal enuresis, myalgia due to simvastatin, history of tobacco abuse. The patient had this ongoing infection in the left lower extremity, initially treated with antibiotics, then she developed necrotizing fasciitis and she was transferred to [facility] in February and status post I and D at [place] and she was admitted to [facility] on 03/21/2022 and discharged on 03/30/2022, in May 2020 she was again admitted here for lower extremity wounds and found to her last abscess and again she was transferred to [place] and after patient I and D was done. Now again comes because of pain in lower extremity and increasing drainage. RIGHT LOWER LEG WOUND, FOOT/HEEL ULCER LOWER EXTREMITY CELLULITIS In setting of chronic lower leg edema Acute on chronic infection Developed necrotizing fasciitis and was transferred to [place] in February 2022 Developed abscess and was again transferred to [place] in May 2022 Supposed to follow with wound clinic but states not following because of transport issues Comes because of increased pain and drainage from the lower extremities No obvious abscess on the imaging studies Blood culture: Negative Wound cultures: Low counts mixed probable skin microbiota, no further identification/sensitivities to follow MRI left foot: No osteomyelitis Wound care nurse consulted Podiatry service consulted-will continue to monitor, may need bedside debridement depending on progress General surgery service consulted-does not recommend surgical debridement of left lower leg wounds Afebrile pain in the leg and the foot much improved w/ boot Left lower leg wound, erythema, edema improving Left lower heel ulcer about the same Continue daptomycin Changed IV Zosyn to IV cefepime Lasix 40 mg daily--> held in light of acute kidney injury Continue AmLactin twice daily Daily dressings Cont. boot - pt feels much better when wearing it ACUTE KIDNEY INJURY Possible contrast-induced nephropathy, underlying infection also contributing Hold Lasix, lisinopril received NSS at 125 cc/h Creatinine 1.0--> 2.7--> 2.6 -> 2.2 Nephrology service consulted - stopped IVF, appreciate their input Monitor BMP Cr improved at 2.2 UTI UA positive Urine culture: E. coli Changed IV Zosyn to IV cefepime HYPERTENSIVE URGENCY Resolved Blood pressure stable home lisinopril on hold d/t dahlia Resume usual home metoprolol XL 25 mg p.o. 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 Seen sitting up in chair, comfortable, not in distress, in good spirits States her foot feels better since wearing a boot Denies any issues w/urination, however Cr up and nephrology was consulted. Cr now improved. BP still somewhat elevated. Discussed w/ nephrology - hydralazine started. Review of Systems Review of Systems: All systems reviewed & are unremarkable except as noted in Subjective Physical Exam Physical Exam: General- oriented x 3, not in distress, speaks in sentences with no effort or accessory muscle use Eyes- anicteric Neck- no JVD Lungs- clear breath sounds bilaterally, no rales/wheezes Heart- normal rate, regular rhythm; no murmurs Abdomen- normal bowel sounds, nondistended, soft, nontender Extremities- no pretibial edema, no calf tenderness Left lower extremity: Edema improving, erythema also improving as well as tenderness Left heel ulcer, no bleeding or discharge, positive surrounding erythema wearing a boot Neuro- alert, oriented x 3; no gross focal neurologic deficits Skin- warm & dry Results & Data Results & Data Vital Signs (Past 12 Hours) Vital Signs Temp Pulse Pulse Resp BP Pulse Ox O2 Del Method 03/21/23 03:58 Room Air 03/21/23 02:32 36.5 C 64 20 165/73 H 92 Room Air 03/20/23 22:00 61 03/20/23 23:57 36.8 C 60 20 160/84 H 92 Room Air Laboratory Results 03/21/23 03/20/23 03/20/23 Range/Units 06:12 19:59 16:38 Sodium 137 (136-145) mmol/L Potassium 4.7 (3.5-5.1) mmol/L Chloride 107 (98-107) mmol/L Carbon Dioxide 22 (21-32) mmol/L Anion Gap 8 (3-11) BUN 51 H (6-23) mg/dl Creatinine 2.30 H (0.6-1.2) mg/dl Est Cr Clr Drug Dosing 43.9 ml/min Est GFR ( Amer) 27.0 ml/min Est GFR (Non-Af Amer) 23.3 ml/min BUN/Creatinine Ratio 22.2 H (10-20) Glucose 265 H (70-99(Fasting)) mg/dl POC Glucose 111 H 119 H (70-99) mg/dl Calcium 8.4 L (8.6-10.3) mg/dl 03/20/23 03/20/23 Range/Units 11:46 07:38 Sodium (136-145) mmol/L Potassium (3.5-5.1) mmol/L Chloride (98-107) mmol/L Carbon Dioxide (21-32) mmol/L Anion Gap (3-11) BUN (6-23) mg/dl Creatinine (0.6-1.2) mg/dl Est Cr Clr Drug Dosing ml/min Est GFR ( Amer) ml/min Est GFR (Non-Af Amer) ml/min BUN/Creatinine Ratio (10-20) Glucose (70-99(Fasting)) mg/dl POC Glucose 137 H 105 H (70-99) mg/dl Calcium (8.6-10.3) mg/dl Medications Administered Current Inpatient Medications Acetaminophen (Acetaminophen 500 Mg Tab) 1,000 mg PO Q6H PRN PRN Reason: Pain Stop: 04/13/23 01:38 Last Admin: 03/21/23 02:18 Dose: 1,000 mg Aspirin (Aspirin 81 Mg Ectab) 81 mg PO DAILY [facility] Stop: 04/13/23 08:59 Last Admin: 03/17/23 08:11 Dose: 81 mg Cyanocobalamin (Cyanocobalamin (B-12) 500 Mcg Tablet) 1,000 mcg PO DAILY [facility] Stop: 04/13/23 08:59 Last Admin: 03/20/23 07:38 Dose: 1,000 mcg Dextrose (Dextrose 50% 50 Ml Syringe) 25 - 50 ml IV UD PRN; Protocol PRN Reason: Hypoglycemia Protocol Stop: 04/13/23 01:38 Docusate Sodium (Docusate Sodium 100 Mg Cap) 100 mg PO BID PRN PRN Reason: Constipation Stop: 04/13/23 01:38 Ferrous Sulfate (Ferrous Sulfate 325 Mg Tab) 325 mg PO DAILY [facility] Stop: 04/13/23 08:59 Last Admin: 03/20/23 07:38 Dose: 325 mg Gabapentin (Gabapentin 300 Mg Cap) 600 mg PO HS [facility] Stop: 04/13/23 01:38 Last Admin: 03/20/23 20:41 Dose: 600 mg Glucagon (Glucagon For Inj 1 Mg Vial) 1 mg SQ UD PRN; Protocol PRN Reason: Hypoglycemia Protocol Stop: 04/13/23 01:38 Glucose (Glucose 40% Gel 15 Gm Tube) 15 - 30 gm PO UD PRN; Protocol PRN Reason: Hypoglycemia Protocol Stop: 04/13/23 01:38 Glucose (Glucose 10 Tab/Tube) 4 - 8 tab PO UD PRN; Protocol PRN Reason: Hypoglycemia Treatment Stop: 04/13/23 01:38 Heparin Sodium (Porcine) (Heparin Sod 5,000 Unit/0.5 Ml Vial) 7,500 units SQ TID [facility] Stop: 04/16/23 20:59 Last Admin: 03/20/23 20:41 Dose: 7,500 units Daptomycin 400 mg/ Syringe 8 mls @ 4 mls/min IV Q24H [facility]; Protocol Stop: 03/22/23 10:59 Last Admin: 03/20/23 11:29 Dose: 4 mls/min Promethazine HCl 12.5 mg/ (Sodium Chloride) 50.5 mls @ 202 mls/hr IV Q6H PRN PRN Reason: Nausea And Vomiting Stop: 04/15/23 02:19 Last Infusion: 03/16/23 06:10 Dose: Infused Cefepime HCl 2,000 mg/ Syringe 20 mls @ 5 mls/min IV Q12H [facility]; Protocol Stop: 03/25/23 10:14 Last Admin: 03/20/23 22:42 Dose: 5 mls/min Insulin Aspart (Insulin Aspart Per Unit Charge) 0 units SC ACHS [facility] Stop: 04/13/23 02:14 Last Admin: 03/20/23 20:42 Dose: Not Given Insulin Glargine (Lantus Per Unit Charge) 22 units SC BID [facility] Stop: 04/19/23 08:59 Last Admin: 03/20/23 20:54 Dose: 22 units Labetalol HCl (Labetalol Hcl Iv 5 Mg/Ml 20ml) 10 mg IV Q4H PRN PRN Reason: Hypertension Stop: 04/13/23 01:38 Last Admin: 03/17/23 22:44 Dose: 10 mg Lactic Acid (Ammonium Lactate 12% Lotion 225 Gm Btl) 1 gm EXT BID [facility] Stop: 04/14/23 20:59 Last Admin: 03/20/23 20:41 Dose: 1 gm Lisinopril (Lisinopril 20 Mg Tab) 20 mg PO BID [facility] Stop: 04/13/23 01:38 Last Admin: 03/17/23 08:11 Dose: 20 mg Metoprolol Succinate (Metoprolol Succ 25mg Ext Rel Tab) 25 mg PO QAM [facility] Stop: 04/16/23 08:59 Last Admin: 03/20/23 07:38 Dose: 25 mg Miscellaneous (Carbohydrates For Hypoglycemia ) 15 - 30 gm PO UD PRN PRN Reason: Hypoglycemia Protocol Stop: 04/13/23 01:38 Miscellaneous Information (Pharmacy Glycemic Mgmt Consult) 1 each N/A UD PRN PRN Reason: Consult Stop: 04/13/23 01:38 Nitroglycerin (Nitroglycerin Sl 0.4 Mg/Tab Tab) 0.4 mg SL Q5M PRN PRN Reason: Chest Pain Stop: 04/13/23 01:38 Polyethylene Glycol (Polyethylene (Miralax) 17 Gm Pack) 17 gm PO DAILY PRN PRN Reason: Constipation Stop: 04/13/23 01:38 Potassium Chloride (Potassium Chloride 10 Meq Tabcr) 10 meq PO BID17 [facility] Stop: 04/13/23 08:59 Last Admin: 03/17/23 08:43 Dose: 10 meq Saccharomyces Boulardii (Saccharomyces Boulardii 250 Mg Cap) 250 mg PO BID [facility] Stop: 04/13/23 08:59 Last Admin: 03/20/23 20:41 Dose: 250 mg Tramadol HCl (Tramadol Hcl 50 Mg Tablet) 50 mg PO Q6H PRN PRN Reason: .Moderate pain Stop: 04/13/23 01:38 Last Admin: 03/19/23 21:43 Dose: 50 mg Triamcinolone Acetonide (Triamcinolone Acet 0.1% Cr 15 Gm Tube) 1 appln TOP BID [facility] Stop: 04/13/23 08:59 Last Admin: 03/20/23 20:42 Dose: 1 appln
[2023-03-21] MEDS: HEPARIN SOD 5,000 UNIT/0.5 ML VIAL SQ SCH ×3 (08:22→20:21)
[2023-03-21] MEDS: METOPROLOL SUCC 25MG EXT REL TAB PO SCH (08:23)
[2023-03-21] MEDS: CYANOCOBALAMIN (B-12) 500 MCG TABLET PO SCH (08:23)
[2023-03-21] MEDS: TRIAMCINOLONE ACET 0.1% CR 15 GM TUBE TOP SCH ×2 (08:23→20:23)
[2023-03-21] MEDS: AMMONIUM LACTATE 12% LOTION 225 GM BTL EXT SCH ×2 (08:25→20:23)
[2023-03-21] MEDS: LANTUS PER UNIT CHARGE SC SCH ×2 (08:58→20:33)
[2023-03-21] MEDS: INSULIN ASPART PER UNIT CHARGE SC SCH ×4 (08:59→20:33)
[2023-03-21] MEDS: SACCHAROMYCES BOULARDII 250 MG CAP PO SCH ×2 (10:05→20:22)
[2023-03-21] MEDS: FERROUS SULFATE 325 MG TAB PO SCH (10:05)
--- NOTE | 2023-03-21 10:41 | Nephrology Progress Note ---
Date of Service March 21, 2023 Assessment & Plan Admission and Anticipated Discharge Date Admission Date: March 13, 2023 Subjective Assessment & Plan (1) DAHLIA (acute kidney injury): She came with a completely normal creatinine of 0.8 as of March 13, 2023. She received IV contrast for CT scan and multiple antibiotic in the setting of acute infection. 2 days later her creatinine went up suddenly to 2.7. Most likely etiology of this acute renal failure is contrast nephropathy/ATN in the setting of contrast exposure with multiple antibiotics exposure acute infection and concomitant use of Lasix and lisinopril. No further work-up is needed for etiology of the acute renal failure especially since creatinine has not gone up further and this morning is slightly better. Continue to hold lisinopril potassium. Bp running slightly higher--No need to very aggressive with BP control in the short term. Add Hydralazine 50 bid from now As much as possible avoid nephrotoxic agents including nephrotoxic antibiotics and contrast I expect the creatinine to slowly come down as long as she does not become septic or get further exposure to nephrotoxic agent. for the last few days Creat has been abnormal but stable. Ok to discharge from nephrology standpoint but does need nephrology follow up Continue daily lab. i and o charting S--no new issues. eating and drinking fine. BP slightly high. making urine Physical Exam Physical Exam: General- Not in distress morbidly obese Head- atraumatic Neck- supple, no JVD Lungs- clear to auscultation and percussion no added sounds but very limited quality exam Heart- regular rate and rhythm; no murmur, no gallop Abdomen- normal bowel sounds, soft, nontender, no distension reviewed Extremities- lower extremity edema bilaterally with chronic dry skin with chronic skin changes and erythema seen with some drainage from wounds Neuro- alert, oriented x 3; PERRL Skin- warm & dry Results & Data Vital Signs (Past 12 Hours) Vital Signs Temp Pulse Resp BP Pulse Ox O2 Del Method 03/21/23 08:03 36.6 C 57 L 16 144/69 H 93 Room Air 03/21/23 03:58 Room Air 03/21/23 02:32 36.5 C 64 20 165/73 H 92 Room Air 03/20/23 23:57 36.8 C 60 20 160/84 H 92 Room Air
[2023-03-21] MEDS: DAPTOmycin 400 MG in SYRINGE 0 ML IV SCH (11:27)
[2023-03-21] MEDS: hydrALAZINE TAB 50 MG TAB PO SCH ×2 (11:28→20:22)
[2023-03-21] MEDS: CEFEPIME 2,000 MG in SYRINGE 0 ML IV SCH ×2 (11:28→22:43)
--- NOTE | 2023-03-21 12:02 | Pharmacy Report ---
Pharmacy Glycemic Short Note 2 - Date of Service March 21, 2023 - Glycemic Short BSG Results (Last 24 hours): 03/20/23 03/20/23 03/21/23 16:38 19:59 06:12 Glucose 265 H POC Glucose 119 H 111 H 03/21/23 03/21/23 07:50 11:48 Glucose POC Glucose 247 H 210 H OUTPATIENT ANTIDIABETIC REGIMEN: * Levemir 25 units SC BID * Humalog 15 units SC AC HbA1c: 14% (03/14/23) ASSESSMENT: 03/21/23 * Patient's BSGs yesterday were [phone] mg/dL and patient received 72 units of insulin (44 units of basal and 28 units of bolus). * Today's BSGs are 247-210 mg/dL. * Lantus was decreased by 2 units yesterday (from 46 units to 44 units). Do not believe this is the cause of elevated fasting today. Will continue to monitor and increase as appropriate. * Continue Novolog 03/19 * 73 units SQ insulin given over last 24 hours while tolerating diet. BSGs well controlled. * Fasting BSG 124 this AM with 46 units basal on board - will continue * Post-prandial BSGs well controlled with current Novolog CF and CR - will continue 03/16 * BSGs trended down throughout the day yesterday w/ drastically improved fasting BSG this morning * Given this trend - will change basal to BID and scale the evening dose in ord er to allow for decreased dose if needed 03/14 * PD is a 53 year old female admitted last evening w/ LLE extremity cellulitis/wound * History of poorly controlled T2DM (HbA1c: 14%), morbid obesity, and ongoing necrotizing infection of LLE * Will use past inpatient glycemic data to guide initial glycemic regimen * Full outpatient basal daily dose given early this AM - will not need further basal today PLAN FOR INPATIENT GLYCEMIC CONTROL: * Hold outpatient oral diabetes medications * Basal insulin * Lantus 22 units BID * Bolus insulin * NovoLog per scale ACHS or Q6hrs while NPO * Goal Range: Low 110 mg/dL - High 140 mg/dL * Correction Factor: 25 mg/dL/unit * Nutritional / Prandial insulin per carb ratio of 1 unit per 6 grams CHO consumed
[2023-03-21] MEDS: LABETALOL HCL IV 5 MG/ML 20ML IV PRN (15:33)
[2023-03-21] MEDS: traMADol HCL 50 MG TABLET PO PRN (20:20)
[2023-03-21] MEDS: GABAPENTIN 300 MG CAP PO SCH (20:21)
[2023-03-22 06:04] LABS: BUN Creatinine Ratio 25.2 (10-20); Calcium 8.7 mg/dl (8.6-10.3); Creatinine Clr Calc Pharmacy 48.2 ml/min; Est GFR (African American) 30.2 ml/min; Potassium 4.7 mmol/L (3.5-5.1)
[2023-03-22] MEDS: METOPROLOL SUCC 25MG EXT REL TAB PO SCH (08:11)
[2023-03-22] MEDS: CYANOCOBALAMIN (B-12) 500 MCG TABLET PO SCH (08:11)
[2023-03-22] MEDS: hydrALAZINE TAB 50 MG TAB PO SCH ×2 (08:11→20:27)
[2023-03-22] MEDS: SACCHAROMYCES BOULARDII 250 MG CAP PO SCH ×2 (08:12→20:27)
[2023-03-22] MEDS: TRIAMCINOLONE ACET 0.1% CR 15 GM TUBE TOP SCH ×2 (08:12→20:28)
[2023-03-22] MEDS: FERROUS SULFATE 325 MG TAB PO SCH (08:12)
[2023-03-22] MEDS: HEPARIN SOD 5,000 UNIT/0.5 ML VIAL SQ SCH ×3 (08:12→20:24)
[2023-03-22] MEDS: AMMONIUM LACTATE 12% LOTION 225 GM BTL EXT SCH ×2 (08:14→20:29)
[2023-03-22] MEDS: INSULIN ASPART PER UNIT CHARGE SC SCH ×4 (08:19→20:41)
[2023-03-22] MEDS: LANTUS PER UNIT CHARGE SC SCH ×2 (08:19→20:42)
--- NOTE | 2023-03-22 08:28 | Hospitalist Progress Note ---
Date of Service March 22, 2023 Assessment & Plan (1) Wound of lower extremity: Plan: This is a 52-year-old female with past medical history significant for type 2 diabetes, hyperlipidemia, chronic sinusitis, hypertension, history of polyneuropathy, iron deficiency anemia due to chronic blood loss, chronic diastolic CHF, chronic kidney disease stage III, morbid obesity, urinary incontinence nocturnal enuresis, myalgia due to simvastatin, history of tobacco abuse. The patient had this ongoing infection in the left lower extremity, initially treated with antibiotics, then she developed necrotizing fasciitis and she was transferred to [facility] in February and status post I and D at [place] and she was admitted to [facility] on 03/21/2022 and discharged on 03/30/2022, in May 2020 she was again admitted here for lower extremity wounds and found to her last abscess and again she was transferred to [place] and after patient I and D was done. Now again comes because of pain in lower extremity and increasing drainage. RIGHT LOWER LEG WOUND, FOOT/HEEL ULCER LOWER EXTREMITY CELLULITIS In setting of chronic lower leg edema Acute on chronic infection Developed necrotizing fasciitis and was transferred to [place] in February 2022 Developed abscess and was again transferred to [place] in May 2022 Supposed to follow with wound clinic but states not following because of transport issues Comes because of increased pain and drainage from the lower extremities No obvious abscess on the imaging studies Blood culture: Negative Wound cultures: Low counts mixed probable skin microbiota, no further identification/sensitivities to follow MRI left foot: No osteomyelitis Wound care nurse consulted Podiatry service consulted-will continue to monitor, may need bedside debridement depending on progress General surgery service consulted-does not recommend surgical debridement of left lower leg wounds Afebrile pain in the leg and the foot much improved w/ boot Left lower leg wound, erythema, edema improving Left lower heel ulcer about the same Continue daptomycin Changed IV Zosyn to IV cefepime Lasix 40 mg daily--> held in light of acute kidney injury Continue AmLactin twice daily Daily dressings Cont. boot - pt feels much better when wearing it ACUTE KIDNEY INJURY Possible contrast-induced nephropathy, underlying infection also contributing Hold Lasix, lisinopril, received IVF Creatinine 1.0--> 2.7--> 2.6 -> 2.2 Nephrology service consulted - stopped IVF, appreciate their input Monitor BMP Cr is trending down UTI UA positive Urine culture: E. coli Changed IV Zosyn to IV cefepime HYPERTENSIVE URGENCY Resolved Blood pressure stable home lisinopril on hold d/t dahlia Resume usual home metoprolol XL 25 mg p.o. 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 Seen sitting up in chair, comfortable, not in distress Reports pain in legs overnight States her foot feels better since wearing a boot Cr slowly trending down Review of Systems Review of Systems: All systems reviewed & are unremarkable except as noted in Subjective Physical Exam Physical Exam: General- oriented x 3, not in distress, speaks in sentences with no effort or accessory muscle use Eyes- anicteric Neck- no JVD Lungs- clear breath sounds bilaterally, no rales/wheezes Heart- normal rate, regular rhythm; no murmurs Abdomen- normal bowel sounds, nondistended, soft, nontender Extremities- no pretibial edema, no calf tenderness Left lower extremity: Edema improving, erythema also improving as well as tenderness Left heel ulcer, no bleeding or discharge, positive surrounding erythema wearing a boot Neuro- alert, oriented x 3; no gross focal neurologic deficits Skin- warm & dry Results & Data Results & Data Vital Signs (Past 12 Hours) Vital Signs Temp Pulse Pulse Resp BP Pulse Ox O2 Del Method 03/22/23 07:57 36.5 C 56 L 16 145/54 H 95 Room Air 03/22/23 03:12 36.8 C 60 20 119/73 94 Room Air 03/21/23 23:02 36.5 C 60 20 162/73 H 93 Room Air 03/21/23 22:54 68 03/21/23 20:36 36.4 C L 65 20 169/82 H 98 Room Air
--- NOTE | 2023-03-22 10:25 | Nephrology Progress Note ---
Date of Service March 22, 2023 Assessment & Plan (1) DAHLIA (acute kidney injury): Plan: She came with a completely normal creatinine of 0.8 as of March 13, 2023. She r eceived IV contrast for CT scan and multiple antibiotic in the setting of acute infection. 2 days later her creatinine went up suddenly to 2.7. Most likely etiology of this acute renal failure is contrast nephropathy/ATN in the setting of contrast exposure with multiple antibiotics exposure acute infection and concomitant use of Lasix and lisinopril. cr down to 2.1 today. -Monitor renal function with daily BMP and avoid further nephrotoxins such as contrast Continue to hold lisinopril potassium and lisinopril Admission and Anticipated Discharge Date Admission Date: March 13, 2023 Subjective Seen for acute kidney injury. She feels better. Complains of left leg pain and swelling. No shortness of breath. She is urinating more. Creatinine downtrending. Review of Systems Review of Systems: All other systems were reviewed and negative except as noted in HPI Physical Exam Physical Exam: General exam: Appears comfortable, no acute distress HEENT: Pupils are equal and reactive to light Neck: No JVD, neck is supple trachea is midline Respiratory system: Clear breath sounds bilaterally. Gastrointestinal: Abdomen is soft, non distended, non tender, bowel sounds are present CVS: Regular rate and rhythm. No murmurs, rubs or gallops Musculoskeletal: No joint or muscle tenderness Extremities: Non tender, 1+ edema, peripheral pulses are present Neuro: Oriented, no tremors, no focal neurological deficits Skin: No rashes Results & Data Vital Signs (Past 12 Hours) Vital Signs Temp Pulse Pulse Resp BP Pulse Ox O2 Del Method 03/22/23 07:57 36.5 C 56 L 16 145/54 H 95 Room Air 03/22/23 03:12 36.8 C 60 20 119/73 94 Room Air 03/21/23 23:02 36.5 C 60 20 162/73 H 93 Room Air 03/21/23 22:54 68 Laboratory Results 03/22/23 05:32
[2023-03-22] MEDS: CEFEPIME 2,000 MG in SYRINGE 0 ML IV SCH ×2 (11:40→22:28)
[2023-03-22] MEDS: ACETAMINOPHEN 500 MG TAB PO PRN (15:01)
[2023-03-22] MEDS: GABAPENTIN 300 MG CAP PO SCH (20:28)
[2023-03-22] MEDS: LABETALOL HCL IV 5 MG/ML 20ML IV PRN (22:38)
[2023-03-23 06:28] LABS: BUN Creatinine Ratio 29.4 (10-20); Calcium 8.9 mg/dl (8.6-10.3); Creatinine Clr Calc Pharmacy 51.4 ml/min; Est GFR (African American) 32.6 ml/min; Est GFR (Non-African American) 28.1 ml/min; Magnesium 2.1 mg/dl (1.7-2.4); Potassium 4.8 mmol/L (3.5-5.1)
--- NOTE | 2023-03-23 07:39 | Hospitalist Progress Note ---
Date of Service March 23, 2023 Assessment & Plan (1) Wound of lower extremity: Plan: This is a 52-year-old female with past medical history significant for type 2 diabetes, hyperlipidemia, chronic sinusitis, hypertension, history of polyneuropathy, iron deficiency anemia due to chronic blood loss, chronic diastolic CHF, chronic kidney disease stage III, morbid obesity, urinary incontinence nocturnal enuresis, myalgia due to simvastatin, history of tobacco abuse. The patient had this ongoing infection in the left lower extremity, initially treated with antibiotics, then she developed necrotizing fasciitis and she was transferred to [facility] in February and status post I and D at [place] and she was admitted to [facility] on 03/21/2022 and discharged on 03/30/2022, in May 2020 she was again admitted here for lower extremity wounds and found to her last abscess and again she was transferred to [place] and after patient I and D was done. Now again comes because of pain in lower extremity and increasing drainage. RIGHT LOWER LEG WOUND, FOOT/HEEL ULCER LOWER EXTREMITY CELLULITIS In setting of chronic lower leg edema Acute on chronic infection Developed necrotizing fasciitis and was transferred to [place] in February 2022 Developed abscess and was again transferred to [place] in May 2022 Supposed to follow with wound clinic but states not following because of transport issues Comes because of increased pain and drainage from the lower extremities No obvious abscess on the imaging studies Blood culture: Negative Wound cultures: Low counts mixed probable skin microbiota, no further identification/sensitivities to follow MRI left foot: No osteomyelitis Wound care nurse consulted Podiatry service consulted-will continue to monitor, may need bedside debridement depending on progress General surgery service consulted-does not recommend surgical debridement of left lower leg wounds Afebrile pain in the leg and the foot much improved w/ boot Left lower leg wound, erythema, edema improving Left lower heel ulcer about the same Continue daptomycin Changed IV Zosyn to IV cefepime Lasix 40 mg daily--> held in light of acute kidney injury Continue AmLactin twice daily Daily dressings Cont. boot - pt feels much better when wearing it ACUTE KIDNEY INJURY Possible contrast-induced nephropathy, underlying infection also contributing Hold Lasix, lisinopril, received IVF Creatinine 1.0--> 2.7--> 2.6 -> 2.2 -> 1.97 Nephrology service consulted - stopped IVF, appreciate their input Monitor BMP Cr is trending down UTI UA positive Urine culture: E. coli Changed IV Zosyn to IV cefepime HYPERTENSIVE URGENCY Resolved Blood pressure stable home lisinopril on hold d/t dahlia Resume usual home metoprolol XL 25 mg p.o. daily IV labetalol as needed and will monitor As BP still somewhat up -hydralazine 50 bid started -> BP improved MORBID OBESITY Counseling provided Pt reports she has been on several meds as outpt that did not work for her Encouraged about cont. discussion w/ pcp about other options - ozempic etc. 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 Seen sitting up in chair, comfortable, not in distress Reports pain in legs overnight States her foot feels better since wearing a boot Cr slowly trending down discussed w/ RN at the bedside - left heel - continues to have quite a bit of drainage. Also discussing proper care of her skin of both of her legs- ammonia lotion currently used. Will involve plastic surgery (Dr. León for further input). Review of Systems Review of Systems: All systems reviewed & are unremarkable except as noted in Subjective Physical Exam Physical Exam: General- oriented x 3, not in distress, speaks in sentences with no effort or accessory muscle use Eyes- anicteric Neck- no JVD Lungs- clear breath sounds bilaterally, no rales/wheezes Heart- normal rate, regular rhythm; no murmurs Abdomen- normal bowel sounds, nondistended, soft, nontender Extremities- no pretibial edema, no calf tenderness Left lower extremity: Edema improving, erythema also improving as well as tenderness Left heel ulcer, + drainage, positive surrounding erythema Skin of both LEs extremely dry w/ scales Neuro- alert, oriented x 3; no gross focal neurologic deficits Skin- warm & dry, LEs as above Results & Data Results & Data Vital Signs (Past 12 Hours) Vital Signs Temp Pulse Pulse Resp BP BP Pulse Ox 03/23/23 02:44 37 C 66 18 180/76 H 95 03/22/23 22:05 56 L 03/22/23 22:58 62 160/95 H 03/22/23 22:41 36.6 C 60 18 176/79 H 94 03/22/23 22:38 60 176/79 H O2 Del Method 03/23/23 02:44 Room Air 03/22/23 22:05 03/22/23 22:58 03/22/23 22:41 Room Air 03/22/23 22:38 Laboratory Results 03/23/23 03/23/23 03/22/23 Range/Units 05:19 04:51 20:08 Sodium 141 (136-145) mmol/L Potassium 4.8 (3.5-5.1) mmol/L Chloride 111 H (98-107) mmol/L Carbon Dioxide 24 (21-32) mmol/L Anion Gap 6 (3-11) BUN 58 H (6-23) mg/dl Creatinine 1.97 H (0.6-1.2) mg/dl Est Cr Clr Drug Dosing 51.4 ml/min Est GFR ( Amer) 32.6 ml/min Est GFR (Non-Af Amer) 28.1 ml/min BUN/Creatinine Ratio 29.4 H (10-20) Glucose 93 (70-99(Fasting)) mg/dl POC Glucose 95 114 H (70-99) mg/dl Calcium 8.9 (8.6-10.3) mg/dl Magnesium 2.1 (1.7-2.4) mg/dl 03/22/23 03/22/23 03/22/23 Range/Units 17:03 11:49 07:39 Sodium (136-145) mmol/L Potassium (3.5-5.1) mmol/L Chloride (98-107) mmol/L Carbon Dioxide (21-32) mmol/L Anion Gap (3-11) BUN (6-23) mg/dl Creatinine (0.6-1.2) mg/dl Est Cr Clr Drug Dosing ml/min Est GFR ( Amer) ml/min Est GFR (Non-Af Amer) ml/min BUN/Creatinine Ratio (10-20) Glucose (70-99(Fasting)) mg/dl POC Glucose 114 H 146 H 121 H (70-99) mg/dl Calcium (8.6-10.3) mg/dl Magnesium (1.7-2.4) mg/dl Medications Administered Current Inpatient Medications Acetaminophen (Acetaminophen 500 Mg Tab) 1,000 mg PO Q6H PRN PRN Reason: Pain Stop: 04/13/23 01:38 Last Admin: 03/22/23 15:01 Dose: 1,000 mg Aspirin (Aspirin 81 Mg Ectab) 81 mg PO DAILY MOHAMUD Stop: 04/13/23 08:59 Last Admin: 03/17/23 08:11 Dose: 81 mg Cyanocobalamin (Cyanocobalamin (B-12) 500 Mcg Tablet) 1,000 mcg PO DAILY MOHAMUD Stop: 04/13/23 08:59 Last Admin: 03/22/23 08:11 Dose: 1,000 mcg Dextrose (Dextrose 50% 50 Ml Syringe) 25 - 50 ml IV UD PRN; Protocol PRN Reason: Hypoglycemia Protocol Stop: 04/13/23 01:38 Docusate Sodium (Docusate Sodium 100 Mg Cap) 100 mg PO BID PRN PRN Reason: Constipation Stop: 04/13/23 01:38 Ferrous Sulfate (Ferrous Sulfate 325 Mg Tab) 325 mg PO DAILY MOHAMUD Stop: 04/13/23 08:59 Last Admin: 03/22/23 08:12 Dose: 325 mg Gabapentin (Gabapentin 300 Mg Cap) 600 mg PO HS MOHAMUD Stop: 04/13/23 01:38 Last Admin: 03/22/23 20:28 Dose: 600 mg Glucagon (Glucagon For Inj 1 Mg Vial) 1 mg SQ UD PRN; Protocol PRN Reason: Hypoglycemia Protocol Stop: 04/13/23 01:38 Glucose (Glucose 40% Gel 15 Gm Tube) 15 - 30 gm PO UD PRN; Protocol PRN Reason: Hypoglycemia Protocol Stop: 04/13/23 01:38 Glucose (Glucose 10 Tab/Tube) 4 - 8 tab PO UD PRN; Protocol PRN Reason: Hypoglycemia Treatment Stop: 04/13/23 01:38 Heparin Sodium (Porcine) (Heparin Sod 5,000 Unit/0.5 Ml Vial) 7,500 units SQ TID MOHAMUD Stop: 04/16/23 20:59 Last Admin: 03/22/23 20:24 Dose: 7,500 units Hydralazine HCl (Hydralazine Tab 50 Mg Tab) 50 mg PO BID [facility] Stop: 04/20/23 10:44 Last Admin: 03/22/23 20:27 Dose: 50 mg Promethazine HCl 12.5 mg/ (Sodium Chloride) 50.5 mls @ 202 mls/hr IV Q6H PRN PRN Reason: Nausea And Vomiting Stop: 04/15/23 02:19 Last Infusion: 03/16/23 06:10 Dose: Infused Cefepime HCl 2,000 mg/ Syringe 20 mls @ 5 mls/min IV Q12H [facility]; Protocol Stop: 03/25/23 10:14 Last Admin: 03/22/23 22:28 Dose: 5 mls/min Insulin Aspart (Insulin Aspart Per Unit Charge) 0 units SC ACHS [facility] Stop: 04/13/23 02:14 Last Admin: 03/22/23 20:41 Dose: 4 units Insulin Glargine (Lantus Per Unit Charge) 23 units SC BID [facility] Stop: 04/21/23 08:59 Last Admin: 03/22/23 20:42 Dose: 23 units Labetalol HCl (Labetalol Hcl Iv 5 Mg/Ml 20ml) 10 mg IV Q4H PRN PRN Reason: Hypertension Stop: 04/13/23 01:38 Last Admin: 03/22/23 22:38 Dose: 10 mg Lactic Acid (Ammonium Lactate 12% Lotion 225 Gm Btl) 1 gm EXT BID [facility] Stop: 04/14/23 20:59 Last Admin: 03/22/23 20:29 Dose: 1 gm Lisinopril (Lisinopril 20 Mg Tab) 20 mg PO BID [facility] Stop: 04/13/23 01:38 Last Admin: 03/17/23 08:11 Dose: 20 mg Metoprolol Succinate (Metoprolol Succ 25mg Ext Rel Tab) 25 mg PO QAM [facility] Stop: 04/16/23 08:59 Last Admin: 03/22/23 08:11 Dose: 25 mg Miscellaneous (Carbohydrates For Hypoglycemia ) 15 - 30 gm PO UD PRN PRN Reason: Hypoglycemia Protocol Stop: 04/13/23 01:38 Miscellaneous Information (Pharmacy Glycemic Mgmt Consult) 1 each N/A UD PRN PRN Reason: Consult Stop: 04/13/23 01:38 Nitroglycerin (Nitroglycerin Sl 0.4 Mg/Tab Tab) 0.4 mg SL Q5M PRN PRN Reason: Chest Pain Stop: 04/13/23 01:38 Polyethylene Glycol (Polyethylene (Miralax) 17 Gm Pack) 17 gm PO DAILY PRN PRN Reason: Constipation Stop: 04/13/23 01:38 Potassium Chloride (Potassium Chloride 10 Meq Tabcr) 10 meq PO BID17 MOHAMUD Stop: 04/13/23 08:59 Last Admin: 03/17/23 08:43 Dose: 10 meq Saccharomyces Boulardii (Saccharomyces Boulardii 250 Mg Cap) 250 mg PO BID [facility] Stop: 04/13/23 08:59 Last Admin: 03/22/23 20:27 Dose: 250 mg Tramadol HCl (Tramadol Hcl 50 Mg Tablet) 50 mg PO Q6H PRN PRN Reason: .Moderate pain Stop: 04/13/23 01:38 Last Admin: 03/21/23 20:20 Dose: 50 mg Triamcinolone Acetonide (Triamcinolone Acet 0.1% Cr 15 Gm Tube) 1 appln TOP BID [facility] Stop: 04/13/23 08:59 Last Admin: 03/22/23 20:28 Dose: 1 appln
[2023-03-23] MEDS: LANTUS PER UNIT CHARGE SC SCH ×2 (08:27→20:14)
[2023-03-23] MEDS: INSULIN ASPART PER UNIT CHARGE SC SCH ×4 (08:27→20:14)
[2023-03-23] MEDS: AMMONIUM LACTATE 12% LOTION 225 GM BTL EXT SCH ×2 (09:00→20:13)
[2023-03-23] MEDS: METOPROLOL SUCC 25MG EXT REL TAB PO SCH (09:01)
[2023-03-23] MEDS: SACCHAROMYCES BOULARDII 250 MG CAP PO SCH ×2 (09:01→20:12)
[2023-03-23] MEDS: hydrALAZINE TAB 50 MG TAB PO SCH ×2 (09:01→20:13)
[2023-03-23] MEDS: CYANOCOBALAMIN (B-12) 500 MCG TABLET PO SCH (09:01)
[2023-03-23] MEDS: FERROUS SULFATE 325 MG TAB PO SCH (09:02)
[2023-03-23] MEDS: TRIAMCINOLONE ACET 0.1% CR 15 GM TUBE TOP SCH ×2 (09:02→20:13)
[2023-03-23] MEDS: HEPARIN SOD 5,000 UNIT/0.5 ML VIAL SQ SCH ×3 (09:02→20:12)
[2023-03-23] MEDS: CEFEPIME 2,000 MG in SYRINGE 0 ML IV SCH (11:11)
[2023-03-23] MEDS: ACETAMINOPHEN 500 MG TAB PO PRN (11:11)
--- NOTE | 2023-03-23 14:53 | Nephrology Progress Note ---
Date of Service March 23, 2023 Assessment & Plan (1) DAHLIA (acute kidney injury): Plan: She came with a completely normal creatinine of 0.8 as of March 13, 2023. She r eceived IV contrast for CT scan and multiple antibiotic in the setting of acute infection. 2 days later her creatinine went up suddenly to 2.7. Most likely etiology of this acute renal failure is contrast nephropathy/ATN in the setting of contrast exposure with multiple antibiotics exposure acute infection and concomitant use of Lasix and lisinopril. cr down to 1.97 today. -Monitor renal function with daily BMP and avoid further nephrotoxins such as contrast Continue to hold lisinopril potassium and lisinopril Admission and Anticipated Discharge Date Admission Date: March 13, 2023 Subjective Seen for DAHLIA. She feels better. Main complaint is left leg pain. No shortness of breath. Review of Systems Review of Systems: All other systems were reviewed and negative except as noted in HPI Results & Data Vital Signs (Past 12 Hours) Vital Signs Temp Pulse Pulse Resp BP Pulse Ox O2 Del Method 03/23/23 12:01 36.8 C 63 18 162/72 H 98 Room Air 03/23/23 08:00 58 L 03/23/23 08:00 Room Air 03/23/23 08:13 36.3 C L 61 18 185/81 H 95 Room Air Laboratory Results 03/23/23 05:19
[2023-03-23] MEDS: GABAPENTIN 300 MG CAP PO SCH (20:12)
[2023-03-23] MEDS: traMADol HCL 50 MG TABLET PO PRN (20:21)
[2023-03-24] MEDS: CEFEPIME 2,000 MG in SYRINGE 0 ML IV SCH ×2 (00:05→12:05)
[2023-03-24 06:30] LABS: BUN Creatinine Ratio 29.6 (10-20); Calcium 8.9 mg/dl (8.6-10.3); Creatinine Clr Calc Pharmacy 53.4 ml/min; Est GFR (African American) 34.3 ml/min; Est GFR (Non-African American) 29.6 ml/min; Magnesium 2.1 mg/dl (1.7-2.4); Phosphorus 4.6 mg/dl (2.5-4.9); Potassium 5.3 mmol/L (3.5-5.1)
[2023-03-24] MEDS: LANTUS PER UNIT CHARGE SC SCH ×2 (08:28→20:51)
[2023-03-24] MEDS: INSULIN ASPART PER UNIT CHARGE SC SCH ×4 (08:29→20:51)
--- NOTE | 2023-03-24 08:29 | Hospitalist Progress Note ---
Date of Service March 24, 2023 Assessment & Plan (1) Wound of lower extremity: Plan: This is a 52-year-old female with past medical history significant for type 2 diabetes, hyperlipidemia, chronic sinusitis, hypertension, history of polyneuropathy, iron deficiency anemia due to chronic blood loss, chronic diastolic CHF, chronic kidney disease stage III, morbid obesity, urinary incontinence nocturnal enuresis, myalgia due to simvastatin, history of tobacco abuse. The patient had this ongoing infection in the left lower extremity, initially treated with antibiotics, then she developed necrotizing fasciitis and she was transferred to [facility] in February and status post I and D at [facility] and she was admitted to [facility] on 03/21/2022 and discharged on 03/30/2022, in May 2020 she was again admitted here for lower extremity wounds and found to her last abscess and again she was transferred to [facility] and after patient I and D was done. Now again comes because of pain in lower extremity and increasing drainage. RIGHT LOWER LEG WOUND, FOOT/HEEL ULCER LOWER EXTREMITY CELLULITIS In setting of chronic lower leg edema Acute on chronic infection Developed necrotizing fasciitis and was transferred to [facility] in February 2022 Developed abscess and was again transferred to [facility] in May 2022 Supposed to follow with wound clinic but states not following because of transport issues Comes because of increased pain and drainage from the lower extremities No obvious abscess on the imaging studies Blood culture: Negative Wound cultures: Low counts mixed probable skin microbiota, no further identification/sensitivities to follow MRI left foot: No osteomyelitis Wound care nurse consulted Podiatry service consulted-will continue to monitor, may need bedside debridement depending on progress General surgery service consulted-does not recommend surgical debridement of left lower leg wounds Afebrile pain in the leg and the foot much improved w/ boot Left lower leg wound, erythema, edema resolving Left lower heel ulcer also improved Continued daptomycin Changed IV Zosyn to IV cefepime Lasix 40 mg daily--> held in light of acute kidney injury Continue AmLactin twice daily Daily dressings Cont. boot - pt feels much better when wearing it 03/24 - Abx switched to oral - augmentin and cipro - as was discussed w/ previous provider and ID Met w/ Dr. Hall (podiatry) today - feels leg is much improved and pt can be discharged to [facility]. He plans to see the pt in his office while she is in [facility]. Likely will then later refer her to [facility] wound care vida. Discharge instructions provided by Dr. Hall. Peer to peer called - plan to DC pt to [facility] for further care. ACUTE KIDNEY INJURY Possible contrast-induced nephropathy, underlying infection also contributing Hold Lasix, lisinopril, received IVF Creatinine 1.0--> 2.7--> 2.6 -> 2.2 -> 1.9 Nephrology service consulted - stopped IVF, appreciate their input Monitor BMP Cr is trending down Cont. to hold lasix , lisinopril on discharge (it could help with lower extremity edema to have pt on some diuretics however at the meantime, need to resolve DAHLIA) UTI UA positive Urine culture: E. coli Changed IV Zosyn to IV cefepime - treatment finished HYPERTENSIVE URGENCY Resolved Blood pressure stable home lisinopril on hold d/t dahlia Resumed usual home metoprolol XL 25 mg p.o. daily IV labetalol as needed and will monitor As BP still somewhat up -hydralazine 50 bid started -> BP improved MORBID OBESITY Counseling provided Pt reports she has been on several meds as outpt that did not work for her Encouraged about cont. discussion w/ pcp about other options - ozempic etc. Recommend also dietitian consult as outpt May need sleep study as outpatient DIABETES TYPE 2 On insulin A1c 14 Insulin sliding scale pediatric radiologist will need close pcp follow up, and as above CHRONIC DIASTOLIC CHF Lasix on hold secondary to acute kidney injury CHRONIC KIDNEY STAGE III DAHLIA, management per above Iron deficiency anemia On iron supplements Hemoglobin stable Diabetic neuropathy On gabapentin DVT prophylaxis - Lovenox Disposition Will need to transition to acute rehab or intermediate facility, plan to DC to [facility] Full code (2) UTI (urinary tract infection): Admission and Anticipated Discharge Date Admission Date: March 13, 2023 Subjective Pt seen in follow-up for left lower extremity cellulitis, left foot heel ulcer, etc. Seen laying in bed, comfortable, not in distress Reports pain in legs on and off States her foot feels better since wearing a boot Cr slowly trending down Discussed w/ Dr. Hall - provided DC instructions. Ok to discharge to [facility]. Pt should see Dr. Hall while at [facility], then they plan to refer to [facility] wound care center. Called peer to peer today and pt can be discharged to [facility]. Review of Systems Review of Systems: All systems reviewed & are unremarkable except as noted in Subjective Physical Exam Physical Exam: General- oriented x 3, not in distress, speaks in sentences with no effort or accessory muscle use Eyes- anicteric Neck- no JVD Lungs- clear breath sounds bilaterally, no rales/wheezes Heart- normal rate, regular rhythm; no murmurs Abdomen- normal bowel sounds, nondistended, soft, nontender Extremities- no pretibial edema, no calf tenderness Left lower extremity: Edema improving, erythema mostly resolved, + some on and off tenderness Left heel ulcer, + minimal drainage, minimal erythema (improved) Skin of both LEs extremely dry w/ scales Neuro- alert, oriented x 3; no gross focal neurologic deficits Skin- warm & dry, LEs as above Results & Data Results & Data Vital Signs (Past 12 Hours) Vital Signs Temp Pulse Pulse Resp BP Pulse Ox O2 Del Method 03/24/23 07:21 36.7 C 59 L 19 164/67 H 96 Room Air 03/24/23 07:47 Room Air 03/24/23 07:12 56 L 03/24/23 03:26 36.8 C 56 L 16 138/64 93 Room Air 03/23/23 22:55 36.6 C 58 L 18 149/63 H 95 Room Air Laboratory Results 03/24/23 03/24/23 03/23/23 Range/Units 07:08 05:38 19:44 Sodium 139 (136-145) mmol/L Potassium 5.3 H (3.5-5.1) mmol/L Chloride 111 H (98-107) mmol/L Carbon Dioxide 23 (21-32) mmol/L Anion Gap 5 (3-11) BUN 56 H (6-23) mg/dl Creatinine 1.89 H (0.6-1.2) mg/dl Est Cr Clr Drug Dosing 53.4 ml/min Est GFR ( Amer) 34.3 ml/min Est GFR (Non-Af Amer) 29.6 ml/min BUN/Creatinine Ratio 29.6 H (10-20) Glucose 131 H (70-99(Fasting)) mg/dl POC Glucose 139 H 167 H (70-99) mg/dl Calcium 8.9 (8.6-10.3) mg/dl Phosphorus 4.6 (2.5-4.9) mg/dl Magnesium 2.1 (1.7-2.4) mg/dl 03/23/23 03/23/23 Range/Units 16:52 11:42 Sodium (136-145) mmol/L Potassium (3.5-5.1) mmol/L Chloride (98-107) mmol/L Carbon Dioxide (21-32) mmol/L Anion Gap (3-11) BUN (6-23) mg/dl Creatinine (0.6-1.2) mg/dl Est Cr Clr Drug Dosing ml/min Est GFR ( Amer) ml/min Est GFR (Non-Af Amer) ml/min BUN/Creatinine Ratio (10-20) Glucose (70-99(Fasting)) mg/dl POC Glucose 113 H 122 H (70-99) mg/dl Calcium (8.6-10.3) mg/dl Phosphorus (2.5-4.9) mg/dl Magnesium (1.7-2.4) mg/dl Medications Administered Current Inpatient Medications Acetaminophen (Acetaminophen 500 Mg Tab) 1,000 mg PO Q6H PRN PRN Reason: Pain Stop: 04/13/23 01:38 Last Admin: 03/23/23 11:11 Dose: 1,000 mg Amoxicillin/Clavulanate Potassium (Amoxicillin/Clavulanate 875 Mg Tab) 1 tab PO BIDM [facility]; Protocol Stop: 03/31/23 16:59 Aspirin (Aspirin 81 Mg Ectab) 81 mg PO DAILY [facility] Stop: 04/13/23 08:59 Last Admin: 03/17/23 08:11 Dose: 81 mg Cyanocobalamin (Cyanocobalamin (B-12) 500 Mcg Tablet) 1,000 mcg PO DAILY [facility] Stop: 04/13/23 08:59 Last Admin: 03/23/23 09:01 Dose: 1,000 mcg Dextrose (Dextrose 50% 50 Ml Syringe) 25 - 50 ml IV UD PRN; Protocol PRN Reason: Hypoglycemia Protocol Stop: 04/13/23 01:38 Docusate Sodium (Docusate Sodium 100 Mg Cap) 100 mg PO BID PRN PRN Reason: Constipation Stop: 04/13/23 01:38 Ferrous Sulfate (Ferrous Sulfate 325 Mg Tab) 325 mg PO DAILY [facility] Stop: 04/13/23 08:59 Last Admin: 03/23/23 09:02 Dose: 325 mg Gabapentin (Gabapentin 300 Mg Cap) 600 mg PO HS MOHAMUD Stop: 04/13/23 01:38 Last Admin: 03/23/23 20:12 Dose: 600 mg Glucagon (Glucagon For Inj 1 Mg Vial) 1 mg SQ UD PRN; Protocol PRN Reason: Hypoglycemia Protocol Stop: 04/13/23 01:38 Glucose (Glucose 40% Gel 15 Gm Tube) 15 - 30 gm PO UD PRN; Protocol PRN Reason: Hypoglycemia Protocol Stop: 04/13/23 01:38 Glucose (Glucose 10 Tab/Tube) 4 - 8 tab PO UD PRN; Protocol PRN Reason: Hypoglycemia Treatment Stop: 04/13/23 01:38 Heparin Sodium (Porcine) (Heparin Sod 5,000 Unit/0.5 Ml Vial) 7,500 units SQ TID MOHAMUD Stop: 04/16/23 20:59 Last Admin: 03/23/23 20:12 Dose: 7,500 units Hydralazine HCl (Hydralazine Tab 50 Mg Tab) 50 mg PO BID MOHAMUD Stop: 04/20/23 10:44 Last Admin: 03/23/23 20:13 Dose: 50 mg Promethazine HCl 12.5 mg/ (Sodium Chloride) 50.5 mls @ 202 mls/hr IV Q6H PRN PRN Reason: Nausea And Vomiting Stop: 04/15/23 02:19 Last Infusion: 03/16/23 06:10 Dose: Infused Cefepime HCl 2,000 mg/ Syringe 20 mls @ 5 mls/min IV Q12H [facility]; Protocol Stop: 03/25/23 10:14 Last Admin: 03/24/23 00:05 Dose: 5 mls/min Insulin Aspart (Insulin Aspart Per Unit Charge) 0 units SC ACHS [facility] Stop: 04/13/23 02:14 Last Admin: 03/23/23 20:14 Dose: 2 units Insulin Glargine (Lantus Per Unit Charge) 23 units SC BID [facility] Stop: 04/21/23 08:59 Last Admin: 03/23/23 20:14 Dose: 23 units Labetalol HCl (Labetalol Hcl Iv 5 Mg/Ml 20ml) 10 mg IV Q4H PRN PRN Reason: Hypertension Stop: 04/13/23 01:38 Last Admin: 03/22/23 22:38 Dose: 10 mg Lactic Acid (Ammonium Lactate 12% Lotion 225 Gm Btl) 1 gm EXT BID MOHAMUD Stop: 04/14/23 20:59 Last Admin: 03/23/23 20:13 Dose: 1 gm Lisinopril (Lisinopril 20 Mg Tab) 20 mg PO BID MOHAMUD Stop: 04/13/23 01:38 Last Admin: 03/17/23 08:11 Dose: 20 mg Metoprolol Succinate (Metoprolol Succ 25mg Ext Rel Tab) 25 mg PO QAM MOHAMUD Stop: 04/16/23 08:59 Last Admin: 03/23/23 09:01 Dose: 25 mg Miscellaneous (Carbohydrates For Hypoglycemia ) 15 - 30 gm PO UD PRN PRN Reason: Hypoglycemia Protocol Stop: 04/13/23 01:38 Miscellaneous Information (Pharmacy Glycemic Mgmt Consult) 1 each N/A UD PRN PRN Reason: Consult Stop: 04/13/23 01:38 Nitroglycerin (Nitroglycerin Sl 0.4 Mg/Tab Tab) 0.4 mg SL Q5M PRN PRN Reason: Chest Pain Stop: 04/13/23 01:38 Polyethylene Glycol (Polyethylene (Miralax) 17 Gm Pack) 17 gm PO DAILY PRN PRN Reason: Constipation Stop: 04/13/23 01:38 Potassium Chloride (Potassium Chloride 10 Meq Tabcr) 10 meq PO BID17 [facility] Stop: 04/13/23 08:59 Last Admin: 03/17/23 08:43 Dose: 10 meq Saccharomyces Boulardii (Saccharomyces Boulardii 250 Mg Cap) 250 mg PO BID [facility] Stop: 04/13/23 08:59 Last Admin: 03/23/23 20:12 Dose: 250 mg Tramadol HCl (Tramadol Hcl 50 Mg Tablet) 50 mg PO Q6H PRN PRN Reason: .Moderate pain Stop: 04/13/23 01:38 Last Admin: 03/23/23 20:21 Dose: 50 mg Triamcinolone Acetonide (Triamcinolone Acet 0.1% Cr 15 Gm Tube) 1 appln TOP BID [facility] Stop: 04/13/23 08:59 Last Admin: 03/23/23 20:13 Dose: 1 appln
[2023-03-24] MEDS: AMMONIUM LACTATE 12% LOTION 225 GM BTL EXT SCH ×2 (08:30→20:40)
[2023-03-24] MEDS: METOPROLOL SUCC 25MG EXT REL TAB PO SCH (08:31)
[2023-03-24] MEDS: CYANOCOBALAMIN (B-12) 500 MCG TABLET PO SCH (08:31)
[2023-03-24] MEDS: FERROUS SULFATE 325 MG TAB PO SCH (08:31)
[2023-03-24] MEDS: hydrALAZINE TAB 50 MG TAB PO SCH ×2 (08:31→20:37)
[2023-03-24] MEDS: SACCHAROMYCES BOULARDII 250 MG CAP PO SCH ×2 (08:31→20:37)
[2023-03-24] MEDS: HEPARIN SOD 5,000 UNIT/0.5 ML VIAL SQ SCH ×3 (08:31→20:38)
[2023-03-24] MEDS: TRIAMCINOLONE ACET 0.1% CR 15 GM TUBE TOP SCH ×2 (08:32→20:43)
--- NOTE | 2023-03-24 09:46 | Pharmacy Report ---
Pharmacy Glycemic Short Note 2 - Date of Service March 24, 2023 - Glycemic Short BSG Results (Last 24 hours): 03/23/23 03/23/23 03/23/23 11:42 16:52 19:44 Glucose POC Glucose 122 H 113 H 167 H 03/24/23 03/24/23 05:38 07:08 Glucose 131 H POC Glucose 139 H OUTPATIENT ANTIDIABETIC REGIMEN: * Levemir 25 units SC BID * Humalog 15 units SC AC * HbA1c: 14% (03/14/23) ASSESSMENT: 03/24: * On Friday, patient received 78 units of insulin: 46 units basal + 32 units bolus. BSGs were controlled: [phone] mg/dL. On Friday, patient received 71 units of insulin: 46 units basal + 25 units bolus. BSGs were controlled: 122-229-623-167 mg/dL. * Fasting BSG this AM is at goal, 139 mg/dL. No changes necessary to insulin regimen. 03/21: * Patient's BSGs yesterday were [phone] mg/dL and patient received 72 units of insulin (44 units of basal and 28 units of bolus). * Today's BSGs are 247-210 mg/dL. * Lantus was decreased by 2 units yesterday (from 46 units to 44 units). Do not believe this is the cause of elevated fasting today. Will continue to monitor and increase as appropriate. * Continue Novolog 03/19: * 73 units SQ insulin given over last 24 hours while tolerating diet. BSGs well controlled. * Fasting BSG 124 this AM with 46 units basal on board - will continue * Post-prandial BSGs well controlled with current Novolog CF and CR - will continue 03/16: * BSGs trended down throughout the day yesterday w/ drastically improved fasting BSG this morning * Given this trend - will change basal to BID and scale the evening dose in order to allow for decreased dose if needed 03/14: * PD is a 53 year old female admitted last evening w/ LLE extremity cellulitis/wound * History of poorly controlled T2DM (HbA1c: 14%), morbid obesity, and ongoing necrotizing infection of LLE * Will use past inpatient glycemic data to guide initial glycemic regimen * Full outpatient basal daily dose given early this AM - will not need further basal today PLAN FOR INPATIENT GLYCEMIC CONTROL: * Basal insulin * Lantus 23 units BID * Bolus insulin * NovoLog per scale ACHS or Q6hrs while NPO * Goal Range: Low 110 mg/dL - High 140 mg/dL * Correction Factor: 20 mg/dL/unit * Nutritional / Prandial insulin per carb ratio of 1 unit per 6 grams CHO consumed
[2023-03-24] MEDS: ACETAMINOPHEN 500 MG TAB PO PRN (10:33)
--- NOTE | 2023-03-24 11:12 | Nephrology Progress Note ---
Date of Service March 24, 2023 Assessment & Plan Admission and Anticipated Discharge Date Admission Date: March 13, 2023 Subjective Assessment & Plan (1) DAHLIA (acute kidney injury): She came with a completely normal creatinine of 0.8 as of March 13, 2023. She received IV contrast for CT scan and multiple antibiotic in the setting of acute infection. 2 days later her creatinine went up suddenly to 2.7. Most likely etiology of this acute renal failure is contrast nephropathy/ATN in the setting of contrast exposure with multiple antibiotics exposure acute infection and concomitant use of Lasix and lisinopril. No further work-up is needed for etiology of the acute renal failure especially since creatinine has not gone up further and this morning is slightly better. Continue to hold lisinopril and potassium. Bp running slightly higher--No need to very aggressive with BP control in the short term. Hydralazine 50 bid from now As much as possible avoid nephrotoxic agents including nephrotoxic antibiotics and contrast I expect the creatinine to slowly come down as long as she does not become septic or get further exposure to nephrotoxic agent. for the last few days Creat has been slowly going down. k is borderline high today but no need to do anything. S--no new issues. Eating and drinking fine. BP slightly high. making urine Physical Exam Physical Exam: General- Not in distress morbidly obese Head- atraumatic Neck- supple, no JVD Lungs- clear to auscultation and percussion no added sounds but very limited quality exam Heart- regular rate and rhythm; no murmur, no gallop Abdomen- normal bowel sounds, soft, nontender, no distension reviewed Extremities- lower extremity edema bilaterally with chronic dry skin with chronic skin changes and erythema seen with some drainage from wounds Neuro- alert, oriented x 3; PERRL Skin- warm & dry Results & Data Vital Signs (Past 12 Hours) Vital Signs Temp Pulse Pulse Resp BP Pulse Ox O2 Del Method 03/24/23 07:21 36.7 C 59 L 19 164/67 H 96 Room Air 03/24/23 07:47 Room Air 03/24/23 07:12 56 L 03/24/23 03:26 36.8 C 56 L 16 138/64 93 Room Air
[2023-03-24] MEDS: AMOXICILLIN/CLAVULANATE 875 MG TAB PO SCH (17:38)
[2023-03-24] MEDS: GABAPENTIN 300 MG CAP PO SCH (20:37)
[2023-03-24] MEDS: CIPROFLOXACIN 500 MG TAB PO SCH (20:38)
[2023-03-24] MEDS: traMADol HCL 50 MG TABLET PO PRN (22:03)
--- NOTE | 2023-03-24 22:30 | Orthopedic Progress Note ---
Date of Service March 24, 2023 Assessment & Plan (1) Wound of lower extremity: Plan: Patient, seen, evaluated, and treated. A thorough evaluation of the wounds was done in detail. After evaluation it was determined heel wound would be debrided. See procedure noted below. Off-loading of heel wound remains a critical part of this patient's management. To offload or remove pressure to the wound is essential. Patient non weight bearing to left heel. Continue to utilize Waffle boot. Dressings applied to left lower extremity wounds. Will continue to follow while in house. Procedure of excisional debridement of deep tissue. There is a minimal amount of serosanguineous exudate draining from the ulcer. The ulcer base is described as containing has pink granulation. Necrotic or devitalized tissue is estimated to be present in approximately 40% of the pre ssure ulcer bed. The ulcer has been exposed full-thickness tissue. I have informed the patient of the risks and benefit of this procedure and they have had the opportunity to ask questions. Appropriate consent has been obtained. The area was prepped and draped in usual aseptic manner. The procedure was performed and a clean field. I debrided the wound sharply with a sterile #15 blade and necrotic tissue was excised down to and including subcutaneous tissue . Bleeding was minimal and hemostasis was achieved using pressure. The patient tolerated procedure well. (2) Diabetic foot infection: Admission and Anticipated Discharge Date Admission Date: March 13, 2023 Subjective Patient seen at bedside at [facility]. She is in no distress and has no complaints. Patient resting comfortably. Review of Systems 2 Review of Systems: All systems reviewed & are unremarkable except as noted in Subjective Physical Exam Constitutional: cooperative, comfortable and + overweight Eyes: normal visual briseno by confrontation Neck: normal visual inspection Respiratory: normal respiratory effort and + respiratory distress Cardiovascular: Rate/Rhythm: regular rate and regular rhythm Musculoskeletal: Extremities: extremities normal to inspection Skin: + ulcer (Left heel ulcer full thickness) and + wound (Left anterior full thickness ulcer) Neurologic: moves all extremities (Absent lower extremity epicritic sensation) Psychiatric: Orientation: alert and oriented x 3 Lymphatic: + lymphedema ((+) hyperpigmentation hyperkeratosis hyperplasia papillomatosis & fibrosis) Results & Data Vital Signs (Past 12 Hours) Vital Signs Temp Pulse Pulse Pulse Resp BP Pulse Ox 03/24/23 21:58 70 179/70 H 03/24/23 20:00 08/07/23 19:16 36.3 C L 59 L 16 181/76 H 96 03/24/23 15:52 36.5 C 56 L 17 166/81 H 95 03/24/23 15:39 55 L O2 Del Method 03/24/23 21:58 03/24/23 20:00 Room Air 03/24/23 19:16 Room Air 03/24/23 15:52 Room Air 03/24/23 15:39
[2023-03-24] MEDS ORDERED: hydrALAZINE HCL 20 MG/ML VIAL IV STA (23:05)
[2023-03-25 06:31] LABS: BUN Creatinine Ratio 32.4 (10-20); Calcium 8.9 mg/dl (8.6-10.3); Creatinine Clr Calc Pharmacy 55.7 ml/min; Est GFR (African American) 35.9 ml/min; Est GFR (Non-African American) 30.9 ml/min; Potassium 5.3 mmol/L (3.5-5.1)
[2023-03-25] MEDS: AMOXICILLIN/CLAVULANATE 875 MG TAB PO SCH (08:59)
[2023-03-25] MEDS: CIPROFLOXACIN 500 MG TAB PO SCH (08:59)
[2023-03-25] MEDS: CYANOCOBALAMIN (B-12) 500 MCG TABLET PO SCH (09:00)
[2023-03-25] MEDS: hydrALAZINE TAB 50 MG TAB PO SCH (09:00)
[2023-03-25] MEDS: SACCHAROMYCES BOULARDII 250 MG CAP PO SCH (09:00)
[2023-03-25] MEDS: METOPROLOL SUCC 25MG EXT REL TAB PO SCH (09:00)
[2023-03-25] MEDS: FERROUS SULFATE 325 MG TAB PO SCH (09:00)
[2023-03-25] MEDS: HEPARIN SOD 5,000 UNIT/0.5 ML VIAL SQ SCH (09:00)
[2023-03-25] MEDS: AMMONIUM LACTATE 12% LOTION 225 GM BTL EXT SCH (09:01)
[2023-03-25] MEDS: TRIAMCINOLONE ACET 0.1% CR 15 GM TUBE TOP SCH (09:01)
[2023-03-25] MEDS: LANTUS PER UNIT CHARGE SC SCH (09:08)
[2023-03-25] MEDS: INSULIN ASPART PER UNIT CHARGE SC SCH ×2 (09:08→13:12)
--- NOTE | 2023-03-25 09:47 | Nephrology Progress Note ---
Date of Service March 25, 2023 Assessment & Plan Admission and Anticipated Discharge Date Admission Date: March 13, 2023 Subjective Assessment & Plan (1) DAHLIA (acute kidney injury): She came with a completely normal creatinine of 0.8 as of March 13, 2023. She received IV contrast for CT scan and multiple antibiotic in the setting of acute infection. 2 days later her creatinine went up suddenly to 2.7. Most likely etiology of this acute renal failure is contrast nephropathy/ATN in the setting of contrast exposure with multiple antibiotics exposure acute infection and concomitant use of Lasix and lisinopril. No further work-up is needed for etiology of the acute renal failure especially since creatinine has not gone up further and this morning is slightly better. Continue to hold lisinopril and potassium. Bp running slightly higher--No need to very aggressive with BP control in the short term.Added Hydralazine 50 bid . She is having slightly high K and and also More LE edema so will add lasix 40 for BP/K/edema control. As much as possible avoid nephrotoxic agents including nephrotoxic antibiotics and contrast I expect the creatinine to very slowly come down as long as she does not become septic or get further exposure to nephrotoxic agent. for the last few days Creat has been slowly going down. Does need f/u Nephrology Post discharge S--no new issues. Eating and drinking fine. BP slightly high. making urine Physical Exam Physical Exam: General- Not in distress morbidly obese Head- atraumatic Neck- supple, no JVD Lungs- clear to auscultation and percussion no added sounds but very limited quality exam Heart- regular rate and rhythm; no murmur, no gallop Abdomen- normal bowel sounds, soft, nontender, no distension reviewed Extremities- lower extremity edema bilaterally with chronic dry skin with chronic skin changes and erythema seen with some drainage from wounds Neuro- alert, oriented x 3; PERRL Skin- warm & dry Results & Data Vital Signs (Past 12 Hours) Vital Signs Temp Pulse Pulse Pulse Resp BP Pulse Ox 03/25/23 07:39 36.3 C L 56 L 19 162/78 H 97 03/25/23 03:18 36.5 C 55 L 18 159/51 H 96 03/24/23 22:28 57 L 03/25/23 00:12 60 162/72 H 03/24/23 23:00 36.4 C L 58 L 16 184/78 H 96 03/24/23 21:58 70 179/70 H O2 Del Method 03/25/23 07:39 Room Air 03/25/23 03:18 Room Air 03/24/23 22:28 03/25/23 00:12 03/24/23 23:00 Room Air 03/24/23 21:58
[2023-03-25] MEDS ORDERED: FUROSEMIDE 40 MG TAB PO SCH (10:00)
--- NOTE | 2023-03-25 11:04 | Discharge Summary ---
Date of Service March 25, 2023 Admission HPI Per Admitting Provider This is a 52-year-old female with past medical history significant for type 2 diabetes, hyperlipidemia, chronic sinusitis, hypertension, history of polyneuropathy, iron deficiency anemia due to chronic blood loss, chronic diastolic CHF, chronic kidney disease stage III, morbid obesity, urinary incontinence nocturnal enuresis, myalgia due to simvastatin, history of tobacco abuse. The patient had this ongoing infection in the left lower extremity, initially treated with antibiotics, then she developed necrotizing fasciitis and she was transferred to [facility] in February and status post I and D at [place] and she was admitted to [facility] on 03/21/2022 and discharged on 03/30/2022, in May 2020 she was again admitted here for lower extremity wounds and found to her last abscess and again she was transferred to [place] and after patient I and D was done. Patient says she follows with ankle and foot surgery for some time and has had insurance change she has followed with wound clinic which is somewhat far away and it cost $100 to go to the appointments so she is not following with her doctors regularly. Home health comes and checks on her. Generally change her dressing once daily but lately she has been changing 3 times daily because of increased drainage from her lower extremity wounds. And they are also painful while ambulating feels like she is walking on marbles for last few days. This reason she came to the ER today. Denies any fevers. At home ambulates with holding furniture. Lives alone but neighbors checks on her l and helps her. Says lately her blood pressures runnin g high causing her headaches. Denies any blurred visions. No runny nose or sore throat or cough. Appetite is okay. No dysphagia. No chest pain or shortness of breath. No nausea or abdominal pain. Normal bowel and bladder movements. Admission Exam Per Admitting Provider General- Not in distress Head- atraumatic Eyes- PERRL ENT- oropharynx clear Neck- supple, no JVD Lungs- clear to auscultation and percussion no added sounds Heart- regular rate and rhythm; no murmur, no gallop Abdomen- normal bowel sounds, soft, nontender, no distension Extremities- lower extremity edema with chronic dry skin with chronic skin changes and erythema seen with some drainage from wounds Neuro- alert, oriented x 3; PERRL, no facial palsy; no dysarthria;obeys commands moves extremities Skin- warm & dry Principal Diagnosis Wound of lower extremity, heel ulcer LE cellulitis, chronic leg edema DAHLIA UTI Uncontrolled diabetes mellitus type 2 (hyperglycemia), Morbid obesity Discharge Exam General- oriented x 3, not in distress, speaks in sentences with no effort or accessory muscle use Eyes- anicteric Neck- no JVD Lungs- clear breath sounds bilaterally, no rales/wheezes Heart- normal rate, regular rhythm; no murmurs Abdomen- normal bowel sounds, nondistended, soft, nontender Extremities- chronic LE edema b/l Left lower extremity: Edema improving, erythema mostly resolved, + some on and off tenderness Left heel ulcer, + minimal drainage, minimal erythema (improved) Skin of both LEs extremely dry w/ scales Neuro- alert, oriented x 3; no gross focal neurologic deficits Skin- warm & dry, LEs as above Discharge Data Allergies Allergy/AdvReac Type Severity Reaction Status Date / Time No Known Allergies Allergy Unknown Verified 03/13/23 19:44 Consultations 03/14/23 08:00 Consult Podiatry Routine 03/15/23 10:04 Consult General Surgery Routine 03/18/23 15:22 Consult Nephrology Routine Ordered Studies 03/13/23 17:41 CT foot LT w con Stat FINDINGS: Bones/joints: Unremarkable. No acute fracture. No dislocation. Soft tissues: Diffuse soft tissue edema. No radiopaque foreign body. IMPRESSION: No acute findings in the left foot. CT leg [CT tib/fib LT w con] Stat FINDINGS: Bones/joints: Unremarkable. No acute fracture. No dislocation. Soft tissues: subcutaneous edema. Innumerable varicosities. Other findings: No rim-enhancing collection present. IMPRESSION: Diffuse edema innumerable varicosities with no rim-enhancing fluid collection in the plantar 03/17/23 14:06 MR ankle LT wo con Routine FINDINGS: Extensive subcutaneous edema of the left lower leg, ankle and visualized portions of the left foot is noted. No fluid collection is identifi ed. A left heel wound is noted. There is no marrow edema within the left ankle/hindfoot to suggest acute osteomyelitis. No fractures are identified. The Achilles tendon is intact. Plantar fascia is unremarkable. There is a small tibiotalar joint effusion. Subtalar joint is intact. Visualized portions of the flexor, extensor and peroneal tendons are intact. Talar dome is unremarkable. IMPRESSION: 1. No evidence for osteomyelitis within the left ankle or hindfoot. 2. Extensive subcutaneous fluid within the left lower leg, ankle and visualized portions of the left foot. This could reflect edema or cellulitis. No fluid collection. 3. Left heel wound. No associated fluid collection. Hospital Course (1) Wound of lower extremity: This is a 52-year-old female with past medical history significant for type 2 diabetes, hyperlipidemia, chronic sinusitis, hypertension, history of polyneuropathy, iron deficiency anemia due to chronic blood loss, chronic diastolic CHF, chronic kidney disease stage III, morbid obesity, urinary incontinence nocturnal enuresis, myalgia due to simvastatin, history of tobacco abuse. The patient had this ongoing infection in the left lower extremity, initially treated with antibiotics, then she developed necrotizing fasciitis and she was transferred to [facility] in February and status post I and D at [place] and she was admitted to [facility] on 03/21/2022 and discharged on 03/30/2022, in May 2020 she was again admitted here for lower extremity wounds and found to her last abscess and again she was transferred to [place] and after patient I and D was done. Now again comes because of pain in lower extremity and increasing drainage. RIGHT LOWER LEG WOUND, FOOT/HEEL ULCER LOWER EXTREMITY CELLULITIS In setting of chronic lower leg edema Acute on chronic infection Developed necrotizing fasciitis and was transferred to [place] in February 2022 Developed abscess and was again transferred to [place] in May 2022 Supposed to follow with wound clinic but states not following because of transport issues Comes because of increased pain and drainage from the lower extremities No obvious abscess on the imaging studies Blood culture: Negative Wound cultures: Low counts mixed probable skin microbiota, no further identification/sensitivities to follow MRI left foot: No osteomyelitis Wound care nurse consulted Podiatry service consulted-will continue to monitor, may need bedside debridement depending on progress General surgery service consulted-does not recommend surgical debridement of left lower leg wounds Afebrile pain in the leg and the foot much improved w/ boot Left lower leg wound, erythema, edema resolving Left lower heel ulcer also improved Continued daptomycin Changed IV Zosyn to IV cefepime Lasix 40 mg daily--> held in light of acute kidney injury Continue AmLactin twice daily Daily dressings Cont. boot - pt feels much better when wearing it 03/24 - Abx switched to oral - augmentin and cipro - as was discussed w/ previous provider and ID Met w/ Dr. Hall (podiatry) today - feels leg is much improved and pt can be discharged to [facility]. He plans to see the pt in his office while she is in [facility]. Likely will then later refer her to [facility] wound care center. Discharge instructions provided by Dr. Hall. Peer to peer called - plan to DC pt to [facility] for further care. 03/25 Pt seen by nephrology - resuming furosemide 40 mg daily - she will need BMP checked in next 2-3 days, and she will need nephrology follow up after discharge ACUTE KIDNEY INJURY Possible contrast-induced nephropathy, underlying infection also contributing Hold Lasix, lisinopril, received IVF Creatinine 1.0--> 2.7--> 2.6 -> 2.2 -> 1.9 Nephrology service consulted - stopped IVF, appreciate their input Monitor BMP Cr is trending down Cont. to hold lisinopril on discharge Furosemide 40 daily now resumed - she will need BMP checked in next 2-3 days, and she will need nephrology follow up after discharge UTI UA positive Urine culture: E. coli Changed IV Zosyn to IV cefepime - treatment finished HYPERTENSIVE URGENCY Resolved Blood pressure stable home lisinopril on hold d/t dahlia Resumed usual home metoprolol XL 25 mg p.o. daily IV labetalol as needed and will monitor As BP still somewhat up -hydralazine 50 bid started -> BP improved MORBID OBESITY Counseling provided Pt reports she has been on several meds as outpt that did not work for her Encouraged about cont. discussion w/ pcp about other options - ozempic etc. Recommend also dietitian consult as outpt May need sleep study as outpatient DIABETES TYPE 2 On insulin A1c 14 Insulin sliding scale hospital educator will need close pcp follow up, and as above CHRONIC DIASTOLIC CHF Lasix on hold secondary to acute kidney injury CHRONIC KIDNEY STAGE III DAHLIA, management per above Iron deficiency anemia On iron supplements Hemoglobin stable Diabetic neuropathy On gabapentin (2) UTI (urinary tract infection): Total Time Total Time Spent Total Time Spent (In Minutes): 40 Discharge Plan Discharge Items Patient Disposition: Transfer Inpatient Rehab Fac Reason For Visit: LOWER EXTREMITY WOUNDS, ELEVATED BP Discharge Diagnosis: Wound of lower extremity, heel ulcer LE cellulitis, chronic leg edema DAHLIA UTI Uncontrolled diabetes mellitus type 2 (hyperglycemia), Morbid obesity Activity: Per Instructions section Weightbearing: Left non-weightbearing Weightbearing Comment: Bathroom privledges Non-emergency contact: Primary Care Provider, Surgeon, Specialist and Nep hrologist Call non-emergency contact if: you have any medication questions and your symptoms worsen Follow-up/Referrals: Mayra Holley, DO [Primary Care Provider] - Diet: Carb Consistent or DM2 and Heart Healthy Kiran Attending Provider Instructions: Follow up with your primary care physician, Dr. Hallpodiatrist, and treasurer. Finish antibiotic treatment with ciprofloxacin and Augmentin, as prescribed. Your kidney function needs to be monitored, have blood work, BMP done in the next 2 to 3 days. Do not take lisinopril. Your furosemide was restarted, and you were also started on medication for blood pressurehydralazine 50 mg twice a day. You will need to follow-up with nephrology. You should follow-up with Dr. Hall, while still at [facility]. You will be further directed in his office about further care. Please see his recommendations below in detail. As discussed, your diabetes has not been controlled well and this needs to be closely monitored and managed. Please follow-up with your primary care physician closely. [employer] Exped[employer] Provider Instructions: Weight bearing Status: Patient is non weight bearing to Left heel due to heel ulcer. She is a poor candidate for toe touch only therefore she will remain non weight bearing to left lower extremity. Patient is able to weight bear for bathroom privileges and is the only exception. Follow up appointment: Please make office appointment with Dr. Hall to be seen 10-[address] Hall will then refer Patient to [facility] upon Patient discharge from SNF. Dr. Hall office number [phone] Dressing changes: Please change dressing daily to left heel and left leg. Dressing to include Aquacel (or like), ABD, Kerlix, Renny. Patient to remain in offloading Prevlon Waffle boot at all times with the exception of weight bearing during bathroom privileges. Pending Studies at Discharge: No Stand-Alone Forms: My [employer] Skilled Items Patient informed of condition?: Yes DNR: No Discharge Level of Care: Acute rehab Communicable Disease: No Discharge Prognosis: Stable Lines: None Urinary Catheter: No Medications and DC Order Prescriptions: New amoxicillin-pot clavulanate 875-125 mg Tablet 1 tab PO BIDM 5 Days Qty: 10 0RF ciprofloxacin HCl 500 mg Tablet 500 mg PO BID 5 Days Qty: 10 0RF hydralazine 50 mg Tablet 50 mg PO BID Qty: 60 0RF Continued cyanocobalamin (vitamin B-12) [Vitamin B-12] 1,000 mcg Tablet 1,000 mcg PO DAILY tramadol 50 mg Tablet 50 mg PO Q6H PRN (Reason: .Moderate pain) triamcinolone acetonide 0.1 % cream 1 applic TOPICAL BID Rx Instructions: Apply to affected area metoprolol succinate 25 mg tablet extended release 24 hr 25 mg PO QAM acetaminophen [Tylenol Extra Strength] 500 mg Tablet 1,000 mg PO Q6H PRN (Reason: Pain) aspirin 81 mg Tablet,Delayed Release (Dr/Ec) 81 mg PO DAILY ferrous sulfate 325 mg (65 mg iron) Tablet 325 mg PO DAILY docusate sodium 100 mg Capsule 100 mg PO BID PRN (Reason: Constipation) Saccharomyces boulardii 250 mg Capsule 250 mg PO BID furosemide [Lasix] 40 mg Tablet 40 mg PO QAM gabapentin 300 mg capsule 600 mg PO HS insulin lispro 100 unit/mL solution 15 unit subcut AC Levemir U-100 Insulin 100 unit/mL solution 25 unit SUBCUT BID Discontinued potassium chloride 10 mEq Capsule, Extended Release 10 meq PO BID lisinopril 20 mg Tablet 20 mg PO BID Discharge Orders: Discharge Order (Routine); Ordered 03/25/23 Ordered By: Jessee Bobby/Other Patient Handouts: Nutrition for Wound Healing, Managing Type 2 Diabetes Admission Data Admit Date/Time: 03/13/23 22:14 Attending Provider: Jessee Liu Admit Provider: Alejandro Guzman Primary Care Provider: Mayra Holley Other Providers: Paolo Hall ; Jun Beavers ; [facility] ; [facility] ; Sathish Khanna ; Jeff Roland ; [facility],
[2023-03-25] MEDS ORDERED: FUROSEMIDE 40 MG/4 ML VIAL IV ONE (13:01)
[2023-03-25] MEDS: LABETALOL HCL IV 5 MG/ML 20ML IV PRN (14:31)
== END 2023-03-25 15:57 | DRG 638 ==
LOC: ED 14:08 → EDINP 22:14 → SUATTDRO 22:14 → 4W 03-14 01:39

== ENCOUNTER 2023-04-09 10:22 | Inpatient (IN) ==
[2023-04-09] MEDS ORDERED: SODIUM CHLORIDE 0.9% 500 ML IV SCH (10:45)
[2023-04-09] MEDS ORDERED: ONDANSETRON INJ 2 MG/ML 2 ML VIAL IV STA (10:57)
--- NOTE | 2023-04-09 10:57 | Emergency Department Note ---
Impression & Plan Hypertension, Hyperglycemia, Nausea ED Provider Note NAME: LUIS MANUEL MIKE AGE: 53 SEX: F : 1970 ARRIVES VIA: Ambulance INFORMANT: [Patient] ED PROVIDER(S): [Marvin Mendez MD] CHIEF COMPLAINT: Illness HISTORY OF PRESENT ILLNESS: The patient is a 53-year-old female who was at our facility for UTI, acute kidney injury and cellulitis. She was discharged on the eighth of this month, 15 days ago. The patient was discharged to [facility]. She was let go from this facility yesterday. The patient was seen by home health today and referred back to the ED. The patient has not been able to take any of her medications since discharge from [facility], she has no way to obtain the medications and was not sent home with any meds. She complains of persistent nausea and dry heaving, decreased appetite. No abdominal pain, no chest pain or fever. Her legs are still quite swollen. She is at home by herself. As per EMS, the patient was hypertensive, her blood sugar was 249. PMHx/PSHx: See Below SOCIAL HISTORY: See Below. PHYSICAL EXAM: GENERAL: Patient is in no acute distress. Dry heaving. HEENT: No acute trauma, normocephalic atraumatic, mucous membranes moist, no nasal congestion. NECK: No stridor, no adenopathy, no meningismus, trachea is midline. LUNGS: Clear to auscultation bilaterally, no wheeze, no rhonchi, breath sounds equal. HEART: Without murmurs gallops or rubs, regular rate and rhythm. ABDOMEN: Soft, nontender, bowel sounds positive, no peritonitis. EXTREMITIES: No cyanosis. Marked bilateral pedal edema with some dressings in place and chronic skin changes. NEUROLOGIC: Oriented x 3, no acute motor or sensory deficits, no focal weakness. SKIN: No rash, no jaundice, no diaphoresis. DIFFERENTIAL DIAGNOSIS: Renal failure, liver failure, electrolyte imbalance, UTI, cellulitis, bowel obstruction, medication reaction, debilitation, among others. EMERGENCY DEPARTMENT COURSE/PROCEDURES: Prior/Outside records reviewed: Recent [facility] note, recent discharge summary. MEDICAL DECISION MAKING: There is no leukocytosis. A mild anemia was noted. There was a normal platelet count. No coagulopathy. Creatinine was mildly elevated but improved compared to recent testing. Glucose was high at around 250. Lactic acid level was not elevated making sepsis less likely. No worrisome liver enzyme elevation. Total CK was not elevated making rhabdomyolysis unlikely. Cardiac enzyme testing x1 was not consistent with acute cardiac injury. Patient's TSH was elevated, the T4 though was normal. Urinalysis showed glucose, no obvious infection. COVID test returned negative. Chest x-ray per my review did not show mediastinal widening, pneumonia or pneumothorax. Abdominal and pelvis CT showed some chronic findings, no bowel obstruction. On exam, the patient was dry heaving. She was hypertensive. The patient received oral metoprolol and oral hydralazine. These were her typical blood pressure meds that had been missed. She was given IV Zofran and a 500 cc saline bolus. Patient's nausea is controlled, she is hungry. She looks improved. Her blood pressure has decreased. I did have case management speak with the patient. Currently, her social situation is the main issue. She has medications ordered but no way to pick them up, no one to deliver them to her, as result, she is missing medications. She is not safe to be at home as per home health. I did speak with the patient and case management, the on-call hospitalist was consulted. Better arrangements appear necessary before discharge. DISPOSITION: Patient presentation and findings warrant a hospital stay. Past Med/Surg History Medical History Anemia Back pain Cellulitis of left lower extremity Depression with anxiety Diabetes type 2, uncontrolled Diabetic peripheral neuropathy associated with type 2 diabetes mellitus Dysfunctional uterine bleeding Dyslipidemia Fatigue Hirsutism History of DVT (deep vein thrombosis) HTN (hypertension) Insomnia Loss of protective sensation of skin of foot Obesity Personal history of diabetic foot ulcer Tobacco use Type 2 diabetes mellitus with complications Type 2 diabetes mellitus, with long-term current use of insulin Varicose veins of both lower extremities Vitamin D deficiency Xerosis cutis Surgical History H/O tooth extraction History of History of cholecystectomy History of endometrial ablation History of facial surgery History of hysterectomy History of incision and drainage left foot by Dr. Haq on 10-03-19. History of nasal polypectomy History of tubal ligation Family History Father Dyslipidemia Prostate cancer Diabetes Lung cancer Mother Lung cancer Hypothyroidism Brother Coronary heart disease Asthma Grandfather (Maternal) Myocardial infarction Grandmother (Maternal) Myocardial infarction Grandmother (Paternal) Breast cancer Diabetes Social History Smoking Status: Never smoker Tobacco Type: Cigarettes Hx Alcohol Use: No Hx Substance Use: No Preferred Language: Uzbek Communication Ability: Effective Director Corporate Communications Required: No Beliefs That Will Affect Care: Spiritual marital status: Single Current Living Situation: Alone Current Living Situation Comment: Home, self care Feels Safe at Home: Yes Assistive Devices: Cane and Walker Allergies Allergies Allergy/AdvReac Type Severity Reaction Status Date / Time No Known Allergies Allergy Unknown Verified 03/13/23 19:44 Home Meds Home Medications Medication Instructions Recorded Confirmed Saccharomyces boulardii 250 mg 250 mg PO BID 03/14/22 04/09/23 capsule aspirin 81 mg tablet,delayed 81 mg PO DAILY 03/14/22 04/09/23 release docusate sodium 100 mg capsule 100 mg PO BID PRN Constipation 03/14/22 04/09/23 ferrous sulfate 325 mg (65 mg 325 mg PO DAILY 03/14/22 04/09/23 iron) tablet furosemide 40 mg tablet (Lasix) 40 mg PO QAM 05/17/22 04/09/23 gabapentin 300 mg capsule 600 mg PO HS 05/17/22 04/09/23 insulin detemir U-100 100 unit/mL 25 unit subcut BID 05/17/22 04/09/23 subcutaneous solution (Levemir U-100 Insulin) insulin lispro 100 unit/mL 15 unit subcut AC 05/17/22 04/09/23 subcutaneous solution acetaminophen 500 mg tablet 1,000 mg PO Q6H PRN Pain 03/13/23 04/09/23 (Tylenol Extra Strength) cyanocobalamin (vitamin B-12) 1,000 mcg PO DAILY 03/13/23 04/09/23 1,000 mcg tablet (Vitamin B-12) metoprolol succinate 25 mg 25 mg PO QAM 03/13/23 04/09/23 tablet,extended release 24 hr tramadol 50 mg tablet 50 mg PO Q6H PRN .Moderate pain 03/13/23 04/09/23 triamcinolone acetonide 0.1 % 1 applic topical BID 03/13/23 04/09/23 topical cream ammonium lactate 12 % lotion 1 applic topical BID 04/09/23 04/09/23 Previous Rx's Medication Instructions Recorded hydralazine 50 mg tablet 50 mg PO BID #60 tabs 03/25/23 Results & Data (ED) Vital Signs Vital Signs - 24 hr 04/09/23 10:28 04/09/23 12:15 04/09/23 13:00 Temperature 36.8 C Temperature Source Oral Pulse Rate 81 Pulse Rate [Finger] 73 88 Pulse Rhythm [Finger] Regular Respiratory Rate 22 16 18 Respiratory Effort / Characteristics Non-Labored Respiratory Depth Normal Blood Pressure 227/95 H Blood Pressure [Right Arm] 219/86 H 176/113 H Blood Pressure Mean 139 Blood Pressure Mean [Right Arm] 130 134 Blood Pressure Position Sitting Blood Pressure Position [Right Arm] Lying Pulse Oximetry 93 99 94 Oxygen Delivery Method Room Air Room Air Sepsis Recent Fever Within 48 Hours No Sepsis New/Unexplained Change in Mental Status No Sepsis Action Taken by Nursing No Action Required 04/09/23 14:40 Temperature Temperature Source Pulse Rate 57 L Pulse Rate [Finger] Pulse Rhythm [Finger] Respiratory Rate Respiratory Effort / Characteristics Respiratory Depth Blood Pressure Blood Pressure [Right Arm] Blood Pressure Mean Blood Pressure Mean [Right Arm] Blood Pressure Position Blood Pressure Position [Right Arm] Pulse Oximetry Oxygen Delivery Method Sepsis Recent Fever Within 48 Hours Sepsis New/Unexplained Change in Mental Status Sepsis Action Taken by Residential Medications Current Medication List: was personally reviewed by me Laboratory Data Attestation: I reviewed the patient's lab results. 04/09/23 10:31 04/09/23 10:31 Lab Results 04/09/23 04/09/23 04/09/23 Range/Units 10:28 10:31 10:31 WBC 6.96 (4.8-10.8) K/ul RBC 4.09 L (4.20-5.40) M/uL Hgb 11.5 L (12.0-16.0) g/dl Hct 37.2 (37.0-47.0) % MCV 91.0 (80.0-100.0) fL MCH 28.1 (25.0-34.0) pg MCHC 30.9 L (32.0-36.0) g/dL RDW Std Deviation 52.9 H (36.4-46.3) fL RDW Coeff of Mya 16.0 H (11.5-14.5) % Plt Count 194 (130-400) K/uL MPV 12.7 H (9.4-12.4) fL Immature Gran % (Auto) 0.6 % Neut % (Auto) 63.8 % Lymph % (Auto) 23.1 % [place] % (Auto) 8.3 % Eos % (Auto) 3.6 % Baso % (Auto) 0.6 % Neut # (Auto) 4.44 (1.40-6.50) K/uL Lymph # (Auto) 1.61 (1.2-3.4) K/uL [place] # (Auto) 0.58 (0.11-0.59) K/uL Eos # (Auto) 0.25 (0-0.50) K/uL Baso # (Auto) 0.04 (0-0.2) K/uL Immature Gran # (Auto) 0.04 (0.01-0.20) K/uL PT 11.9 (9.0-12.0) Seconds INR 1.1 (0.9-1.1) APTT 26.7 (21.0-31.0) Seconds PTT Ratio 0.9 Sodium (136-145) mmol/L Potassium Chloride (98-107) mmol/L Carbon Dioxide (21-32) mmol/L Anion Gap (3-11) BUN (6-23) mg/dl Creatinine (0.6-1.2) mg/dl Est Cr Clr Drug Dosing ml/min Est GFR ( Amer) ml/min Est GFR (Non-Af Amer) ml/min BUN/Creatinine Ratio (10-20) Glucose (70-99(Fasting)) mg/dl POC Glucose 242 H (70-99) mg/dl Lactate (0.4-2.0) mmol/L Calcium (8.6-10.3) mg/dl Magnesium (1.7-2.4) mg/dl Total Bilirubin (0.2-1.0) mg/dl AST ALT (7-52) U/L Alkaline Phosphatase (34-104) U/L Total Creatine Kinase (26-192) U/L Troponin I High Sens (0-14) pg/ml Total Protein (6.0-8.3) gm/dl Albumin (3.4-5.0) gm/dl Globulin (2.5-4.0) gm/dl Albumin/Globulin Ratio (0.9-2) TSH (0.300-4.500) uIu/ml Free T4 (0.61-1.60) ng/dl Urine Color Urine Appearance (Clear) Urine pH (4.5-7.5) Ur Specific [place] (1.000-1.030) Urine Protein (Negative) Urine Glucose (UA) (Negative) Urine Ketones (Negative) Urine Blood (Negative) Urine Nitrite (Negative) Urine Bilirubin (Negative) Urine Urobilinogen (Negative) Ur Leukocyte Esterase (Negative) Urine WBC (Auto) (0-5) /hpf Urine RBC (Auto) (0-4) /hpf U Hyaline Cast (Auto) (0-5) /lpf U Epithel Cells (Auto) (0-5) /lpf Urine Bacteria (Auto) (Negative) SARS-CoV-2, RNA, NAAT (NEGATIVE) 04/09/23 04/09/23 04/09/23 Range/Units 10:31 10:31 10:54 WBC (4.8-10.8) K/ul RBC (4.20-5.40) M/uL Hgb (12.0-16.0) g/dl Hct (37.0-47.0) % MCV (80.0-100.0) fL MCH (25.0-34.0) pg MCHC (32.0-36.0) g/dL RDW Std Deviation (36.4-46.3) fL RDW Coeff of Mya (11.5-14.5) % Plt Count (130-400) K/uL MPV (9.4-12.4) fL Immature Gran % (Auto) % Neut % (Auto) % Lymph % (Auto) % [place] % (Auto) % Eos % (Auto) % Baso % (Auto) % Neut # (Auto) (1.40-6.50) K/uL Lymph # (Auto) (1.2-3.4) K/uL [place] # (Auto) (0.11-0.59) K/uL Eos # (Auto) (0-0.50) K/uL Baso # (Auto) (0-0.2) K/uL Immature Gran # (Auto) (0.01-0.20) K/uL PT (9.0-12.0) Seconds INR (0.9-1.1) APTT (21.0-31.0) Seconds PTT Ratio Sodium 140 (136-145) mmol/L Potassium TNP Chloride 102 (98-107) mmol/L Carbon Dioxide 30 (21-32) mmol/L Anion Gap 8 (3-11) BUN 38 H (6-23) mg/dl Creatinine 1.48 H (0.6-1.2) mg/dl Est Cr Clr Drug Dosing 51.4 ml/min Est GFR ( Amer) 46.0 ml/min Est GFR (Non-Af Amer) 39.7 ml/min BUN/Creatinine Ratio 25.7 H (10-20) Glucose 245 H (70-99(Fasting)) mg/dl POC Glucose (70-99) mg/dl Lactate (0.4-2.0) mmol/L Calcium 9.6 (8.6-10.3) mg/dl Magnesium 2.2 (1.7-2.4) mg/dl Total Bilirubin 0.5 (0.2-1.0) mg/dl AST TNP ALT 14 (7-52) U/L Alkaline Phosphatase 106 H (34-104) U/L Total Creatine Kinase 77 (26-192) U/L Troponin I High Sens 8.9 (0-14) pg/ml Total Protein 8.5 H (6.0-8.3) gm/dl Albumin 4.0 (3.4-5.0) gm/dl Globulin 4.5 H (2.5-4.0) gm/dl Albumin/Globulin Ratio 0.9 (0.9-2) TSH 5.000 H (0.300-4.500) uIu/ml Free T4 1.22 (0.61-1.60) ng/dl Urine Color Urine Appearance (Clear) Urine pH (4.5-7.5) Ur Specific [place] (1.000-1.030) Urine Protein (Negative) Urine Glucose (UA) (Negative) Urine Ketones (Negative) Urine Blood (Negative) Urine Nitrite (Negative) Urine Bilirubin (Negative) Urine Urobilinogen (Negative) Ur Leukocyte Esterase (Negative) Urine WBC (Auto) (0-5) /hpf Urine RBC (Auto) (0-4) /hpf U Hyaline Cast (Auto) (0-5) /lpf U Epithel Cells (Auto) (0-5) /lpf Urine Bacteria (Auto) (Negative) SARS-CoV-2, RNA, NAAT NEGATIVE (NEGATIVE) 04/09/23 04/09/23 04/09/23 Range/Units 11:26 11:46 11:52 WBC (4.8-10.8) K/ul RBC (4.20-5.40) M/uL Hgb (12.0-16.0) g/dl Hct (37.0-47.0) % MCV (80.0-100.0) fL MCH (25.0-34.0) pg MCHC (32.0-36.0) g/dL RDW Std Deviation (36.4-46.3) fL RDW Coeff of Mya (11.5-14.5) % Plt Count (130-400) K/uL MPV (9.4-12.4) fL Immature Gran % (Auto) % Neut % (Auto) % Lymph % (Auto) % [place] % (Auto) % Eos % (Auto) % Baso % (Auto) % Neut # (Auto) (1.40-6.50) K/uL Lymph # (Auto) (1.2-3.4) K/uL [place] # (Auto) (0.11-0.59) K/uL Eos # (Auto) (0-0.50) K/uL Baso # (Auto) (0-0.2) K/uL Immature Gran # (Auto) (0.01-0.20) K/uL PT (9.0-12.0) Seconds INR (0.9-1.1) APTT (21.0-31.0) Seconds PTT Ratio Sodium (136-145) mmol/L Potassium 4.2 Chloride (98-107) mmol/L Carbon Dioxide (21-32) mmol/L Anion Gap (3-11) BUN (6-23) mg/dl Creatinine (0.6-1.2) mg/dl Est Cr Clr Drug Dosing ml/min Est GFR ( Amer) ml/min Est GFR (Non-Af Amer) ml/min BUN/Creatinine Ratio (10-20) Glucose (70-99(Fasting)) mg/dl POC Glucose (70-99) mg/dl Lactate 2.0 (0.4-2.0) mmol/L Calcium (8.6-10.3) mg/dl Magnesium (1.7-2.4) mg/dl Total Bilirubin (0.2-1.0) mg/dl AST 14 ALT (7-52) U/L Alkaline Phosphatase (34-104) U/L Total Creatine Kinase (26-192) U/L Troponin I High Sens (0-14) pg/ml Total Protein (6.0-8.3) gm/dl Albumin (3.4-5.0) gm/dl Globulin (2.5-4.0) gm/dl Albumin/Globulin Ratio (0.9-2) TSH (0.300-4.500) uIu/ml Free T4 (0.61-1.60) ng/dl Urine Color Yellow Urine Appearance Clear (Clear) Urine pH 6.5 (4.5-7.5) Ur Specific [place] 1.013 (1.000-1.030) Urine Protein 3+ H (Negative) Urine Glucose (UA) 3+ H (Negative) Urine Ketones Negative (Negative) Urine Blood Negative (Negative) Urine Nitrite Negative (Negative) Urine Bilirubin Negative (Negative) Urine Urobilinogen Negative (Negative) Ur Leukocyte Esterase Negative (Negative) Urine WBC (Auto) 10-30 H (0-5) /hpf Urine RBC (Auto) 0-4 (0-4) /hpf U Hyaline Cast (Auto) 1-5 (0-5) /lpf U Epithel Cells (Auto) >30 H (0-5) /lpf Urine Bacteria (Auto) Negative (Negative) SARS-CoV-2, RNA, NAAT (NEGATIVE) Administered Medications Discontinued Medications Hydralazine HCl (Hydralazine Tab 50 Mg Tab) 50 mg PO NOW STA Stop: 04/09/23 11:12 Last Admin: 04/09/23 12:19 Dose: 50 mg Documented By: ANN-MARIE Sodium Chloride (Nss) 500 mls @ 999 mls/hr IV .Q31M MOHAMUD Stop: 04/09/23 11:15 Last Infusion: 04/09/23 12:19 Dose: 0 mls/hr Documented By: ANN-MARIE Admin: 04/09/23 11:15 Dose: 999 mls/hr Documented By: TESS Metoprolol Succinate (Metoprolol Succ 25mg Ext Rel Tab) 25 mg PO NOW STA Stop: 04/09/23 11:12 Last Admin: 04/09/23 12:19 Dose: 25 mg Documented By: ANN-MARIE Ondansetron HCl (Ondansetron Inj 2 Mg/Ml 2 Ml Vial) 4 mg IV NOW STA Stop: 04/09/23 10:58 Last Admin: 04/09/23 11:15 Dose: 4 mg Documented By: TESS Imaging Data Radiologist's Impression: Chest X-Ray 04/09/23 10:37 XR chest 1V portable HISTORY: weakness COMPARISON: Chest 03/19/2023. FINDINGS: No pneumothorax. No pleural effusions. The cardiac silhouette remains mildly enlarged. No new focal lung consolidations to suggest a pneumonia. No e vidence for pulmonary edema. There is an old, healed left posterior rib fracture. Linear scarlike density left midlung zone remains unchanged. There are calcifications within the aortic knob. IMPRESSION: No significant change compared to the prior study. No acute process. ACT 112: Negative or not required by law. Electronically signed by: Tee Huerta M.D. 04/09/2023 11:05 AM Abdomen/Pelvis CT 04/09/23 10:[address] WITHOUT CONTRAST CT DOSE: 1521.46 mGy.cm HISTORY: Female with generalized abdominal pain poss obstruction TECHNIQUE: Multiaxial CT images of the abdomen and pelvis were performed without contrast. A dose lowering technique was utilized adhering to the principles of ALARA. COMPARISON STUDY: CT pelvis 03/02/2022 FINDINGS: Cardiomegaly with coronary arterial calcifications. Mild intralobular septal thickening may represent pulmonary edema. The unenhanced spleen is mildly enlarged at 15 cm. Unremarkable pancreas and adrenal glands. Cholecystectomy. The liver is enlarged measuring up to 21 cm. Unremarkable kidneys. No hydronephrosis. Unremarkable urinary bladder. The uterus is within normal limits. Atherosclerosis of the aorta. Subcentimeter periaortic and pericaval lymph nodes are noted with enlarged iliac and inguinal chain lymph nodes. Iliac chain lymph nodes measure up to 1.5 cm and inguinal chain lymph nodes measure up to 2 cm. Findings are similar to prior. No bowel obstruction or bowel wall thickening. Colonic diverticulosis. Hyperdens e foci within the distal appendiceal lumen suggestive of appendicolith versus retained enteric contrast. Tiny fat filled supraumbilical hernia, diastases 1.9 cm. Moderate body wall edema with subcutaneous nodular foci suggestive of mediastinal injection sites. No acute fracture identified. IMPRESSION: 1. No bowel obstruction or bowel wall thickening. 2. No urolithiasis or hydronephrosis. 3. Colonic diverticulosis. 4. Hepatosplenomegaly. 5. Nonspecific iliac and inguinal chain lymphadenopathy, similar in size to the 03/02/2022 exam. ACT 112: Negative or not required by law. The above report was generated using voice recognition software. It may contain grammatical, syntax or spelling errors. Electronically signed by: Reza Duran M.D. 04/09/2023 12:11 PM Discharge Plan Visit Data Chief Complaint: Illness ED Provider: Marvin Mendez Discharge Problem: Hypertension, Hyperglycemia, Nausea Patient Disposition: Admitted As Inpatient Condition: Fair Forms Stand Alone Forms: [facility] [employer] Prescriptions Prescriptions: No Action cyanocobalamin (vitamin B-12) [Vitamin B-12] 1,000 mcg Tablet 1,000 mcg PO DAILY tramadol 50 mg Tablet 50 mg PO Q6H PRN (Reason: .Moderate pain) triamcinolone acetonide 0.1 % cream 1 applic TOPICAL BID Rx Instructions: Apply to affected area metoprolol succinate 25 mg tablet extended release 24 hr 25 mg PO QAM acetaminophen [Tylenol Extra Strength] 500 mg Tablet 1,000 mg PO Q6H PRN (Reason: Pain) hydralazine 50 mg Tablet 50 mg PO BID Qty: 60 0RF ammonium lactate 12 % Lotion 1 applic TOPICAL BID aspirin 81 mg Tablet,Delayed Release (Dr/Ec) 81 mg PO DAILY ferrous sulfate 325 mg (65 mg iron) Tablet 325 mg PO DAILY docusate sodium 100 mg Capsule 100 mg PO BID PRN (Reason: Constipation) Saccharomyces boulardii 250 mg Capsule 250 mg PO BID furosemide [Lasix] 40 mg Tablet 40 mg PO QAM gabapentin 300 mg capsule 600 mg PO HS insulin lispro 100 unit/mL solution 15 unit subcut AC Levemir U-100 Insulin 100 unit/mL solution 25 unit SUBCUT BID Referrals Referrals: Mayra Holley, DO [Primary Care Provider] -
[2023-04-09 11:01] LABS: Basophils # (auto) 0.04 K/uL (0-0.2); Basophils % (auto) 0.6 %; Eosinophils # (auto) 0.25 K/uL (0-0.50); Eosinophils % (auto) 3.6 %; Hematocrit (blood only) 37.2 % (37.0-47.0); Hemoglobin 11.5 g/dl (12.0-16.0); Immature Granulocytes # (auto) 0.04 K/uL (0.01-0.20); Immature Granulocytes % (auto) 0.6 %; Lymphocytes # (auto) 1.61 K/uL (1.2-3.4); Lymphocytes % (auto) 23.1 %; Mean Corpuscular Hemoglobin 28.1 pg (25.0-34.0); Mean Corpuscular Hgb Conc 30.9 g/dL (32.0-36.0); Mean Platelet Volume 12.7 fL (9.4-12.4); Monocytes # (auto) 0.58 K/uL (0.11-0.59); Monocytes % (auto) 8.3 %; Neutrophils # (auto) 4.44 K/uL (1.40-6.50); Neutrophils % (auto) 63.8 %; Platelet Count 194 K/uL (130-400); RDW Standard Deviation 52.9 fL (36.4-46.3); Red Blood Count 4.09 M/uL (4.20-5.40); White Blood Count 6.96 K/ul (4.8-10.8)
--- NOTE | 2023-04-09 11:06 | XRay Report ---
XR chest 1V portable HISTORY: weakness COMPARISON: Chest 03/19/2023. FINDINGS: No pneumothorax. No pleural effusions. The cardiac silhouette remains mildly enlarged. No n ew focal lung consolidations to suggest a pneumonia. No evidence for pulmonary edema. There is an old , healed left posterior rib fracture. Linear scarlike density left midlung zone remains unchanged. Th ere are calcifications within the aortic knob. IMPRESSION: No significant change compared to the prior study. No acute process. ACT 112: Negative or not required by law. Electronically signed by: Tee Huerta M.D. 04/09/2023 11:05 AM
[2023-04-09] MEDS ORDERED: hydrALAZINE TAB 50 MG TAB PO STA (11:11)
[2023-04-09] MEDS ORDERED: METOPROLOL SUCC 25MG EXT REL TAB PO STA (11:11)
[2023-04-09 11:15] LABS: INR 1.1 (0.9-1.1); Partial Thromboplastin Ratio 0.9; Partial Thromboplastin Time 26.7 Seconds (21.0-31.0); Prothrombin Time 11.9 Seconds (9.0-12.0)
[2023-04-09 11:48] LABS: Alanine Aminotransferase 14 U/L (7-52); Albumin Globulin Ratio 0.9 (0.9-2); Alkaline Phosphatase 106 U/L (34-104); Anion Gap 8 (3-11); BUN Creatinine Ratio 25.7 (10-20); Bilirubin,Total 0.5 mg/dl (0.2-1.0); Blood Urea Nitrogen 38 mg/dl (6-23); Calcium 9.6 mg/dl (8.6-10.3); Carbon Dioxide 30 mmol/L (21-32); Chloride 102 mmol/L (98-107); Creatine Kinase 77 U/L (26-192); Creatinine Clr Calc Pharmacy 51.4 ml/min; Est GFR (Non-African American) 39.7 ml/min; Globulin 4.5 gm/dl (2.5-4.0); Glucose 245 mg/dl (70-99(Fasting)); Magnesium 2.2 mg/dl (1.7-2.4); Sodium 140 mmol/L (136-145); Total Protein 8.5 gm/dl (6.0-8.3); Troponin I High Sensitivity 8.9 pg/ml (0-14)
[2023-04-09 12:02] LABS: Appearance Urine Clear (Clear); Bacteria Urine Automated Negative (Negative); Bilirubin Urine Negative (Negative); Blood Urine Negative (Negative); Color Urine Yellow; Epithelial Cell Urine Auto >30 /lpf (0-5); Glucose Urine UA 3+ (Negative); Ketones Urine Negative (Negative); Leukocyte Esterase Urine Negative (Negative); Nitrite Urine Negative (Negative); Protein Urine 3+ (Negative); RBC Urine Automated 0-4 /hpf (0-4); Specific Gravity Urine 1.013 (1.000-1.030); Urobilinogen Urine Negative (Negative); pH Urine 6.5 (4.5-7.5)
[2023-04-09 12:03] LABS: T4 Free Thyroxine 1.22 ng/dl (0.61-1.60)
--- NOTE | 2023-04-09 12:13 | CT Scan Report ---
ABDOMEN AND PELVIS CT WITHOUT CONTRAST CT DOSE: 1521.46 mGy.cm HISTORY: Female with generalized abdominal pain poss obstruction TECHNIQUE: Multiaxial CT images of the abdomen and pelvis were performed without contrast. A dose lo wering technique was utilized adhering to the principles of ALARA. COMPARISON STUDY: CT pelvis 03/02/2022 FINDINGS: Cardiomegaly with coronary arterial calcifications. Mild intralobular septal thickening may represent pulmonary edema. The unenhanced spleen is mildly enlarged at 15 cm. Unremarkable pancreas and adrena l glands. Cholecystectomy. The liver is enlarged measuring up to 21 cm. Unremarkable kidneys. No hydronephrosis. Unremarkable urinary bladder. The uterus is within normal li mits. Atherosclerosis of the aorta. Subcentimeter periaortic and pericaval lymph nodes are noted with enlarged iliac and inguinal chain lymph nodes. Iliac chain lymph nodes measure up to 1.5 cm and ingu inal chain lymph nodes measure up to 2 cm. Findings are similar to prior. No bowel obstruction or bowel wall thickening. Colonic diverticulosis. Hyperdense foci within the dis agapito appendiceal lumen suggestive of appendicolith versus retained enteric contrast. Tiny fat filled supraumbilical hernia, diastases 1.9 cm. Moderate body wall edema with subcutaneous n odular foci suggestive of mediastinal injection sites. No acute fracture identified. IMPRESSION: 1. No bowel obstruction or bowel wall thickening. 2. No urolithiasis or hydronephrosis. 3. Colonic diverticulosis. 4. Hepatosplenomegaly. 5. Nonspecific iliac and inguinal chain lymphadenopathy, similar in size to the 03/02/2022 exam. ACT 112: Negative or not required by law. The above report was generated using voice recognition software. It may contain grammatical, syntax o r spelling errors. Electronically signed by: Reza Duran M.D. 04/09/2023 12:11 PM
[2023-04-09 12:41] LABS: Potassium 4.2 mmol/L (3.5-5.1)
--- NOTE | 2023-04-09 14:33 | History & Physical Report ---
Date of Service April 09, 2023 Assessment & Plan (1) Lymphedema of both lower extremities: (2) Lower limb ulcer, heel or midfoot: (3) Type 2 diabetes mellitus, with long-term current use of insulin: (4) HTN (hypertension): Plan This is a 53-year-old female who has a significant past medical history of insulin-dependent T2DM, diabetic neuropathy, diabetic nephropathy with CKD stage III, HTN, HLD, chronic HFpEF, morbid obesity, history necrotizing fasciitis, bilateral lower extremity lymphedema, left chronic heel ulcer, iron deficiency anemia who presents to ED due to unable to obtain medications. Failed inpatient rehab discharge to home admit to med tele will consult CM to help assist in needs of patient - obtaining medications prior to discharge, transport services to [facility] vs further rehab unsafe to discharge home today as she needs a solid plan in place given her needs Chronic bilateral lower extremity lymphedema Chronic bilateral heel ulcerations left greater than right, POA Hx of necrotizing fascitis s/p I and D in 2021 does not appear acutely infected will consult wound care wash legs daily, lac hydrin will need OP f/u with podiatry as well as wound care; she will likely also need transport as she has no means for transport at this time continue b/l off loading shoes/boots Insulin-dependent T2DM. Poorly controlled. with nephropathy and neuropathy 14.0 on 03/14/23 lantus/novolog per protocol will place glycemic consult continue gabapentin, monitor renal fxn chronic, uncontrolled Chronic HFpEF HTN HLD Blood pressure uncontrolled due to missed medication doses Continue Lasix, hydralazine and metoprolol Daily weights, strict I's and O's chronic, stable CKD-3 chronic Pt presented on 03/13 with cr 1.0 cr 1.48 today, still down trending from hosp stay Recent DAHLIA during hospital stay felt likely secondary to contrast-induced nephropathy as well as multiple antibiotics in setting of acute infection, peak creatinine 2.7 Morbid Obesity, BMI 35 encourage diet, lifestyle mods TRACI chronic, stable hgb 11 continue iron Diabetic neuropathy continue gabapentin chronic, stable DVT ppx: SQ Lovenox FULL CODE PCP: Dispo: possible d/c to home if able to get meds and have enough support or may need further snf rehab Pt was seen and examined in collaboration with Dr. Howard, please see addendum A total of 75 was spent coordinating, documenting, and providing care for this patient excluding time spent in the performance of separately billed services. This included personally viewing all current laboratories and imaging studies, medication reconciliation, outpatient chart review, and discussion with spec ialists. History of Present Illness Chief Complaint: Unable to obtain medication status post discharge from [facility]. Primary Care Provider: Mayra Holley DO This is a 53-year-old female who has a significant past medical history of insul in-dependent T2DM, diabetic neuropathy, diabetic nephropathy with CKD stage III, HTN, HLD, chronic HFpEF, morbid obesity, history necrotizing fasciitis, bilateral lower extremity lymphedema, left chronic heel ulcer, iron deficiency anemia who presents to ED due to unable to obtain medications. She was discharged from [facility] yesterday. Of significance patient was recently hospitalized here 03/13 to 03/25 secondary to lower extremity cellulitis, left heel wound and ulcer, chronic lower extremity lymphedema, DAHLIA, UTI and uncontrolled diabetes. She was then discharged to [facility] for which she was discharged yesterday. She feels from rehab standpoint she is much improved and she does have home health set up. She is out of her medications due to not being home for a month and unable to get her medications despite being discharged. She was out of needles and therefore unable to give herself insulin. Currently she is unable to drive because of her legs. She does drive at baseline. She wears b/l off loading shoes. She lives alone at home and does not have much support. She does have [facility] home health set up at this current time. She typically does her own dressings. She denies any SOB, orthopnea, PND, vision changes, recent f/c/s, lightheaded, chest pain, vomiting or diarrhea, dysuria, hematuria, increased urg/freq urination. She complains of nausea for the past 5 days. Typically occurs after meals. She does feel strong since being at rehab. Her last BM was this morning and normal for her. She feels that if she can be set up with appropriate supplies and medications for home she likely can be discharged. When she presented to ED she was significantly hypertensive as well as hyperglycemic. She received her home blood pressure medications of metoprolol and hydralazine which did improve her blood pressures to 160s over 80s. Allergies Allergy/AdvReac Type Severity Reaction Status Date / Time No Known Allergies Allergy Unknown Verified 03/13/23 19:44 Home Medications Medication Instructions Recorded Confirmed Type Saccharomyces boulardii 250 mg 250 mg PO BID 03/14/22 04/09/23 History capsule aspirin 81 mg tablet,delayed 81 mg PO DAILY 03/14/22 04/09/23 History release docusate sodium 100 mg capsule 100 mg PO BID PRN Constipation 03/14/22 04/09/23 History ferrous sulfate 325 mg (65 mg 325 mg PO DAILY 03/14/22 04/09/23 History iron) tablet furosemide 40 mg tablet (Lasix) 40 mg PO QAM 05/17/22 04/09/23 History gabapentin 300 mg capsule 600 mg PO HS 05/17/22 04/09/23 History insulin detemir U-100 100 unit/mL 25 unit subcut BID 05/17/22 04/09/23 History subcutaneous solution (Levemir U-100 Insulin) insulin lispro 100 unit/mL 15 unit subcut AC 05/17/22 04/09/23 History subcutaneous solution acetaminophen 500 mg tablet 1,000 mg PO Q6H PRN Pain 03/13/23 04/09/23 History (Tylenol Extra Strength) cyanocobalamin (vitamin B-12) 1,000 mcg PO DAILY 03/13/23 04/09/23 History 1,000 mcg tablet (Vitamin B-12) metoprolol succinate 25 mg 25 mg PO QAM 03/13/23 04/09/23 History tablet,extended release 24 hr tramadol 50 mg tablet 50 mg PO Q6H PRN .Moderate pain 03/13/23 04/09/23 History triamcinolone acetonide 0.1 % 1 applic topical BID 03/13/23 04/09/23 History topical cream hydralazine 50 mg tablet 50 mg PO BID #60 tabs 03/25/23 04/09/23 Rx ammonium lactate 12 % lotion 1 applic topical BID 04/09/23 04/09/23 History Past Med/Surg History Medical History Anemia Back pain Cellulitis of left lower extremity Depression with anxiety Diabetes type 2, uncontrolled Diabetic peripheral neuropathy associated with type 2 diabetes mellitus Dysfunctional uterine bleeding Dyslipidemia Fatigue Hirsutism History of DVT (deep vein thrombosis) HTN (hypertension) Insomnia Loss of protective sensation of skin of foot Obesity Personal history of diabetic foot ulcer Tobacco use Type 2 diabetes mellitus with complications Type 2 diabetes mellitus, with long-term current use of insulin Varicose veins of both lower extremities Vitamin D deficiency Xerosis cutis Surgical History H/O tooth extraction History of History of cholecystectomy History of endometrial ablation History of facial surgery History of hysterectomy History of incision and drainage left foot by Dr. Haq on 10-03-19. 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 Lee isabelenum for physical exam findings Results & Data Results & Data Vital Signs (Past 12 Hours) Vital Signs Temp Pulse Pulse Resp BP BP Pulse Ox 04/09/23 13:00 88 18 176/113 H 94 04/09/23 12:15 73 16 219/86 H 99 04/09/23 10:28 36.8 C 81 22 227/95 H 93 O2 Del Method 04/09/23 13:00 04/09/23 12:15 Room Air 04/09/23 10:28 Room Air Diagnostic Findings Chest X-Ray 04/09/23 10:37 XR chest 1V portable HISTORY: weakness COMPARISON: Chest 03/19/2023. FINDINGS: No pneumothorax. No pleural effusions. The cardiac silhouette remains mildly enlarged. No new focal lung consolidations to suggest a pneumonia. No evidence for pulmonary edema. There is an old, healed left posterior rib fracture. Linear scarlike density left midlung zone remains unchanged. There are calcifications within the aortic knob. IMPRESSION: No significant change compared to the prior study. No acute process. ACT 112: Negative or not required by law. Electronically signed by: Tee Huerta M.D. 04/09/2023 11:05 AM Abdomen/Pelvis CT 04/09/23 10:[address] WITHOUT CONTRAST CT DOSE: 1521.46 mGy.cm HISTORY: Female with generalized abdominal pain poss obstruction TECHNIQUE: Multiaxial CT images of the abdomen and pelvis were performed without contrast. A dose lowering technique was utilized adhering to the principles of ALARA. COMPARISON STUDY: CT pelvis 03/02/2022 FINDINGS: Cardiomegaly with coronary arterial calcifications. Mild intralobular septal thickening may represent pulmonary edema. The unenhanced spleen is mildly enlarged at 15 cm. Unremarkable pancreas and adrenal glands. Cholecystectomy. The liver is enlarged measuring up to 21 cm. Unremarkable kidneys. No hydronephrosis. Unremarkable urinary bladder. The uterus is within normal limits. Atherosclerosis of the aorta. Subcentimeter periaortic and pericaval lymph nodes are noted with enlarged iliac and inguinal chain lymph nodes. Iliac chain lymph nodes measure up to 1.5 cm and inguinal chain lymph nodes measure up to 2 cm. Findings are similar to prior. No bowel obstruction or bowel wall thickening. Colonic diverticulosis. Hyperdense foci within the distal appendiceal lumen suggestive of appendicolith versus retained enteric contrast. Tiny fat filled supraumbilical hernia, diastases 1.9 cm. Moderate body wall edema with subcutaneous nodular foci suggestive of mediastinal injection sites. No acute fracture identified. IMPRESSION: 1. No bowel obstruction or bowel wall thickening. 2. No urolithiasis or hydronephrosis. 3. Colonic diverticulosis. 4. Hepatosplenomegaly. 5. Nonspecific iliac and inguinal chain lymphadenopathy, similar in size to the 03/02/2022 exam. ACT 112: Negative or not required by law. The above report was generated using voice recognition software. It may contain grammatical, syntax or spelling errors. Electronically signed by: Reza Duran M.D. 04/09/2023 12:11 PM Medications Administered Medication List Discontinued Medications Hydralazine HCl (Hydralazine Tab 50 Mg Tab) 50 mg PO NOW STA Stop: 04/09/23 11:12 Last Admin: 04/09/23 12:19 Dose: 50 mg Documented By: ANN-MARIE Sodium Chloride (Nss) 500 mls @ 999 mls/hr IV .Q31M MOHAMUD Stop: 04/09/23 11:15 Last Infusion: 04/09/23 12:19 Dose: 0 mls/hr Documented By: ANN-MARIE Admin: 04/09/23 11:15 Dose: 999 mls/hr Documented By: TESS Metoprolol Succinate (Metoprolol Succ 25mg Ext Rel Tab) 25 mg PO NOW STA Stop: 04/09/23 11:12 Last Admin: 04/09/23 12:19 Dose: 25 mg Documented By: ANN-MARIE Ondansetron HCl (Ondansetron Inj 2 Mg/Ml 2 Ml Vial) 4 mg IV NOW STA Stop: 04/09/23 10:58 Last Admin: 04/09/23 11:15 Dose: 4 mg Documented By: TESS COVID-19 Results Results COVID-19 Adm Lab Results: RBC 4.09 M/uL (4.20-5.40) L 04/09/23 WBC 6.96 K/ul (4.8-10.8) 04/09/23 Hgb 11.5 g/dl (12.0-16.0) L 04/09/23 Hct 37.2 % (37.0-47.0) 04/09/23 Plt Count 194 K/uL (130-400) 04/09/23 Neutrophils (%) (Auto) 63.8 % 04/09/23 Lymphocytes (%) (Auto) 23.1 % 04/09/23 Monocytes # (Auto) 0.58 K/uL (0.11-0.59) 04/09/23 Eosinophils # (Auto) 0.25 K/uL (0-0.50) 04/09/23 Immature Granulocyte % (Auto) 0.6 % 04/09/23 Neutrophils # (Auto) 4.44 K/uL (1.40-6.50) 04/09/23 Lymphocytes # (Auto) 1.61 K/uL (1.2-3.4) 04/09/23 Monocytes # (Auto) 0.58 K/uL (0.11-0.59) 04/09/23 Eosinophils # (Auto) 0.25 K/uL (0-0.50) 04/09/23 Basophils # (Auto) 0.04 K/uL (0-0.2) 04/09/23 Immature Granulocyte # (Auto) 0.04 K/uL (0.01-0.20) 3 Na 140 mmol/L (136-145) 04/09/23 K 4.2 mmol/L (3.5-5.1) 04/09/23 Cl 102 mmol/L (98-107) 04/09/23 CO2 30 mmol/L (21-32) 04/09/23 Anion Gap 8 (3-11) 04/09/23 BUN 38 mg/dl (6-23) H 04/09/23 Creatinine 1.48 mg/dl (0.6-1.2) H 04/09/23 BUN/Creatinine Ratio 25.7 (10-20) H 04/09/23 Glucose Level 245 mg/dl (70-99(Fasting)) H 04/09/23 Ca 9.6 mg/dl (8.6-10.3) 04/09/23 Total Bilirubin 0.5 mg/dl (0.2-1.0) 04/09/23 AST/SGOT 14 U/L (13-39) 04/09/23 ALT/SGPT 14 U/L (7-52) 04/09/23 Alkaline Phosphatase 106 U/L (34-104) H 04/09/23 Total Protein 8.5 gm/dl (6.0-8.3) H 04/09/23 Albumin 4.0 gm/dl (3.4-5.0) 04/09/23 Globulin 4.5 gm/dl (2.5-4.0) H 04/09/23 Albumin/Globulin Ratio 0.9 (0.9-2) 04/09/23 Total CK 77 U/L (26-192) 04/09/23 PTT 26.7 Seconds (21.0-31.0) 04/09/23 INR 1.1 (0.9-1.1) 04/09/23 SARS-CoV-2, RNA, NAAT NEGATIVE (NEGATIVE) 04/09/23 Chest X-Ray 04/09/23 Code Status & VTE Plan Code Status FULL CODE VTE Prophylaxis Plan VTE Prophylaxis will be ordered: Yes Supervising Physician Co-Signing Physician Notes I have seen and discussed the case with the collaborating DAO. I agree with the above H&P. I have reviewed and confirmed the patients medical history, the findings on physical examination, and the patients diagnosis and treatment plan with Desirae DC and agree with the information documented. In short, Ms. Rand is a 53 yo woman who has a significant past medical history of insulin- dependent T2DM, diabetic neuropathy, diabetic nephropathy with CKD stage III, HTN, HLD, chronic HFpEF, morbid obesity, history necrotizing fasciitis, bilateral lower extremity lymphedema, left chronic heel ulcer, iron deficiency anemia who presents to ED due to unable to obtain medications.Patient was discharged from rehab approximately 24 hours ago, but did not receive any medications. Patient also endorses ongoing nausea. Patient reports having services set up for wound care at home, but mentions that she is experiencing some difficulty handling her day to day activities, and issues with transportation given her wound on her left foot as she cannot drive. She has no assistance locally. Vitals were notable for hypertension to 180s. Improved renal function in comparison to recent hospitalization. Stable microcytic anemia. CXR and CT AP unremarkable. Physical exam notable for bilateral nonpitting edema, hyperkeratosis with diffuse crusting of ?lymphorrhea however no signs of active cellulitis; left heel ulceration that appears clean with granulation tissue and no apparent purulent drainage; erythema and skin maceration under abdominal pannus and breasts; small area of skin maceration in gluteal cleft; no pertinent findings on cardiac/lung exam. Case management contacted regarding medication management and complex social situation. Plan to resume previously initiated medications for hypertension and blood pressure. Plan to trial famotidine for general nausea as zofran has not offered much relief--considering possibility of gastroparesis based upon description of occasional post prandial regurgitation; if famotidine fails, will consider reglan or prokinetic agent. Plan for wound care consult on left lower extremity ulcer with PT/OT. (3) Type 2 diabetes mellitus, with long-term current use of insulin Diabetes mellitus complication status: without complication Qualified Code(s): E11.9 - Type 2 diabetes mellitus without complications; Z79.4 - nursing home (current) use of insulin
[2023-04-09] MEDS ORDERED: ONDANSETRON INJ 2 MG/ML 2 ML VIAL IV PRN (17:09)
[2023-04-09] MEDS ORDERED: MAGNESIUM HYDROXIDE SUSP 30 ML UDC PO PRN (17:09)
[2023-04-09] MEDS ORDERED: CARBOHYDRATES FOR HYPOGLYCEMIA PO PRN ×3 (17:09)
[2023-04-09] MEDS ORDERED: GLUCOSE 10 TAB/TUBE PO PRN ×2 (17:09)
[2023-04-09] MEDS ORDERED: DEXTROSE 50% 50 ML SYRINGE IV PRN ×2 (17:09)
[2023-04-09] MEDS ORDERED: PHARMACY GLYCEMIC MGMT CONSULT PRN (17:09)
[2023-04-09] MEDS ORDERED: GLUCOSE 40% GEL 15 GM TUBE PO PRN ×2 (17:09)
[2023-04-09] MEDS ORDERED: GLUCAGON FOR INJ 1 MG VIAL SQ PRN ×2 (17:09)
[2023-04-09] MEDS ORDERED: POLYETHYLENE (MIRALAX) 17 GM PACK PO PRN (17:09)
[2023-04-09] MEDS ORDERED: ALUMINUM/MAGNESIUM SUSP 30 ML UDC PO PRN (17:09)
[2023-04-09] MEDS ORDERED: DOCUSATE SODIUM 100 MG CAP PO PRN (17:09)
[2023-04-09] MEDS: INSULIN ASPART PER UNIT CHARGE SC SCH ×2 (20:23→22:34)
[2023-04-09] MEDS: SACCHAROMYCES BOULARDII 250 MG CAP PO SCH (20:29)
[2023-04-09] MEDS: FAMOTIDINE 20 MG TAB PO SCH (20:29)
[2023-04-09] MEDS: GABAPENTIN 300 MG CAP PO SCH (20:29)
[2023-04-09] MEDS: ENOXAPARIN INJ 40 MG/0.4 ML SYR SQ SCH (20:30)
[2023-04-09] MEDS: hydrALAZINE TAB 50 MG TAB PO SCH (20:30)
[2023-04-09] MEDS: AMMONIUM LACTATE 12% LOTION 225 GM BTL EXT SCH (20:35)
[2023-04-09] MEDS ORDERED: LANTUS PER UNIT CHARGE SQ SCH (21:00)
[2023-04-10] MEDS: traMADol HCL 50 MG TABLET PO PRN (00:10)
[2023-04-10 08:53] LABS: Basophils # (auto) 0.04 K/uL (0.00-0.20); Basophils % (auto) 0.5 %; Eosinophils # (auto) 0.33 K/uL (0.00-0.50); Eosinophils % (auto) 4.5 %; Hematocrit (blood only) 34.7 % (37.0-47.0); Hemoglobin 10.8 g/dl (12.0-16.0); Immature Granulocytes # (auto) 0.03 K/uL (0.01-0.20); Immature Granulocytes % (auto) 0.4 %; Mean Corpuscular Hemoglobin 28.1 pg (25.0-34.0); Mean Corpuscular Hgb Conc 31.1 g/dL (32.0-36.0); Mean Corpuscular Volume 90.4 fL (80.0-100.0); Mean Platelet Volume 12.6 fL (9.4-12.4); Monocytes # (auto) 0.62 K/uL (0.11-0.59); Monocytes % (auto) 8.4 %; Neutrophils # (auto) 4.09 K/uL (1.40-6.50); Neutrophils % (auto) 55.2 %; Platelet Count 181 K/uL (130-400); RDW Coefficient of Variation 15.9 % (11.5-14.5); RDW Standard Deviation 52.7 fL (36.4-46.3); Red Blood Count 3.84 M/uL (4.20-5.40); White Blood Count 7.41 K/ul (4.8-10.8)
[2023-04-10 09:09] LABS: Albumin Globulin Ratio 0.9 (0.9-2); Albumin Level 3.6 gm/dl (3.4-5.0); BUN Creatinine Ratio 22.9 (10-20); Bilirubin,Total 0.6 mg/dl (0.2-1.0); Calcium 9.1 mg/dl (8.6-10.3); Creatinine Clr Calc Pharmacy 62.2 ml/min; Est GFR (African American) 42.9 ml/min; Globulin 3.9 gm/dl (2.5-4.0); Total Protein 7.5 gm/dl (6.0-8.3)
[2023-04-10] MEDS: FERROUS SULFATE 325 MG TAB PO SCH (09:18)
[2023-04-10] MEDS: ASPIRIN 81 MG ECTAB PO SCH (09:22)
[2023-04-10] MEDS: LANTUS PER UNIT CHARGE SQ SCH ×2 (09:22→20:59)
[2023-04-10] MEDS: INSULIN ASPART PER UNIT CHARGE SC SCH ×4 (09:22→20:59)
[2023-04-10] MEDS: SACCHAROMYCES BOULARDII 250 MG CAP PO SCH ×2 (09:23→21:00)
[2023-04-10] MEDS: METOPROLOL SUCC 25MG EXT REL TAB PO SCH (09:23)
[2023-04-10] MEDS: FAMOTIDINE 20 MG TAB PO SCH (09:23)
[2023-04-10] MEDS: FUROSEMIDE 40 MG TAB PO SCH (09:23)
[2023-04-10] MEDS: CYANOCOBALAMIN (B-12) 500 MCG TABLET PO SCH (09:23)
[2023-04-10] MEDS: hydrALAZINE TAB 50 MG TAB PO SCH ×2 (09:23→21:01)
--- NOTE | 2023-04-10 10:14 | Pharmacy Report ---
Pharmacy Glycemic Short Note 2 - Date of Service April 10, 2023 - Glycemic Short BSG Results (Last 24 hours): 04/09/23 04/09/23 04/09/23 10:28 10:31 17:24 Glucose 245 H POC Glucose 242 H 216 H 04/09/23 04/10/23 04/10/23 20:16 07:53 08:18 Glucose 148 H POC Glucose 211 H 167 H OUTPATIENT ANTIDIABETIC REGIMEN: * Levemir 25 units SC BID * Humalog 15 units SC AC * HbA1c: 14% ASSESSMENT: * 53 yo F admitted on 04/09/23 secondary to hypertensive and hyperglycemia. Pharmacy has been consulted to assist with inpatient glycemic management. Patient is a poorly controlled Type 2 diabetic as an outpatient. Please refer to outpatient regimen and most recent HbA1c above. * BSG elevated at 242 mg/dL upon admission. Received 20 units of Lantus and 3 units of Novolog at bedtime last night. During patient's previous admission this month, she was well controlled on 22 units of Lantus BID and Novolog based on weight/stress of 3. Will utilize this regimen to start during admission. * Ordered and tolerating a T2DM diet. No stressors at this time. PLAN FOR INPATIENT GLYCEMIC CONTROL: * Basal insulin * Lantus 22 units SC BID * Bolus insulin * NovoLog per scale ACHS or Q6hrs while NPO * Goal Range: Low 110 mg/dL - High 140 mg/dL * Correction Factor: 20 mg/dL/unit * Nutritional / Prandial insulin per carb ratio of 1 unit per 6 grams CHO consumed
[2023-04-10] MEDS: AMMONIUM LACTATE 12% LOTION 225 GM BTL EXT SCH ×2 (12:22→21:01)
[2023-04-10] MEDS: ACETAMINOPHEN 325 MG TAB PO PRN (14:30)
--- NOTE | 2023-04-10 16:34 | Hospitalist Progress Note ---
Date of Service April 10, 2023 Assessment & Plan (1) Lymphedema of both lower extremities: (2) Lower limb ulcer, heel or midfoot: (3) Type 2 diabetes mellitus, with long-term current use of insulin: (4) HTN (hypertension): Plan This is a 53-year-old female who has a significant past medical history of insulin-dependent T2DM, diabetic neuropathy, diabetic nephropathy with CKD stage III, HTN, HLD, chronic HFpEF, morbid obesity, history necrotizing fasciitis, bilateral lower extremity lymphedema, left chronic heel ulcer, iron deficiency anemia who presents to ED due to unable to obtain medications. Hypertensive urgency Generally unwell with physical deconditioning-Likely secondary to not having any medications for the last few days Blood pressure noted to be as high as 227/95 in the emergency room without any significant symptom Apparently she has not been taking her medications for the last few days since discharge from the rehab facility Blood pressure has been restarted in the pressure seems to be improving Failed inpatient rehab discharge to home will consult CM to help assist in needs of patient - obtaining medications prior to discharge, transport services to [facility] vs further rehab unsafe to discharge home today as she needs a solid plan in place given her needs Will need PT OT evaluation prior to discharge Chronic bilateral lower extremity lymphedema Chronic bilateral heel ulcerations left greater than right, POA Hx of necrotizing fascitis s/p I and D in 2021 does not appear acutely infected-does not require any antibiotic to be given will consult wound care-appreciate input and recommendation wash legs daily, lac hydrin will need OP f/u with podiatry as well as wound care; she will likely also need transport as she has no means for transport at this time continue b/l off loading shoes/boots Will need to see a composition roofer as an outpatient Insulin-dependent T2DM. Poorly controlled. And has not been taking her insulin and are checking blood sugar since discharge from the facility with nephropathy and neuropathy 14.0 on 03/14/23 lantus/novolog per protocol will place glycemic consult continue gabapentin, monitor renal fxn chronic, uncontrolled Blood sugar has been improving Chronic HFpEF HTN HLD Blood pressure uncontrolled due to missed medication doses Continue Lasix, hydralazine and metoprolol Daily weights, strict I's and O's chronic, stable No evidence of fluid overload CKD-3 chronic Pt presented on 03/13 with cr 1.0 cr 1.48 today, still down trending from hosp stay Recent DAHLIA during hospital stay felt likely secondary to contrast-induced nephropathy as well as multiple antibiotics in setting of acute infection, peak creatinine 2.7 Creatinine seems to be improving Morbid Obesity, BMI 35 encourage diet, lifestyle mods TRACI chronic, stable hgb 11 continue iron Diabetic neuropathy continue gabapentin chronic, stable DVT ppx: SQ Lovenox FULL CODE PCP: Dispo: possible d/c to home if able to get meds and have enough support or may need further snf rehab Admission and Anticipated Discharge Date Admission Date: April 09, 2023 Subjective 04/10/2023 The patient was seen and examined in medical telemetry unit She was admitted with symptomatic high blood pressure and also high blood sugar Remains generally weak and lethargic as well Has been feeling much better since admission Review of Systems Review of Systems: All systems reviewed and are unremarkable except as noted below Physical Exam Physical Exam: Sitting on a chair without any acute distress Constitutional: well developed, well nourished, + ill appearing and + morbidly obese Eyes: PERRL, conjunctivae normal, anicteric sclerae ENMT: external ear and nose normal, oropharynx normal Neck: trachea midline, no thyromegaly Respiratory: no respiratory distress Auscultation: + diminished lung sounds and + crackles (Minimal crackles at the bases) Cardiovascular: Rate/Rhythm: regular rate, regular rhythm and + bradycardic Heart Sounds: normal S1 and normal S2; no murmur Extremities: + edema (Bilateral lymphedema with leg ulcers on the left side) Gastrointestinal (Abdomen): Inspection/Auscultation: + abdomen distended and normal bowel sounds Percussion/Palpation: abdomen soft; abdomen nontender Musculoskeletal: No acute arthritis involving any of the joint Skin: Chronic ischemic change bilaterally in the legs with left leg cellulitis Neurologic: plantar reflexes intact bilaterally and moves all extremities; no focal motor deficits Psychiatric: A+Ox3, euthymic affect Lymphatic: no cervical or axillary lymphadenopathy Results & Data Results & Data Vital Signs (Past 12 Hours) Vital Signs Temp Pulse Pulse Resp BP Pulse Ox O2 Del Method 04/10/23 15:59 57 L 04/10/23 15:26 36.7 C 55 L 20 148/82 H 98 Room Air 04/10/23 13:10 Room Air 04/10/23 11:59 36.6 C 60 18 154/81 H 96 Room Air 04/10/23 09:20 67 04/10/23 08:22 36.6 C 59 L 18 150/80 H 97 Room Air 04/10/23 07:16 49 L Laboratory Results Short CBC 04/10/23 Range/Units 07:53 WBC 7.41 (4.8-10.8) K/ul Hgb 10.8 L (12.0-16.0) g/dl Hct 34.7 L (37.0-47.0) % Plt Count 181 (130-400) K/uL BMP 04/10/23 07:53 Sodium 139 Potassium 4.0 Chloride 104 Carbon Dioxide 30 BUN 36 H Creatinine 1.57 H Glucose 148 H Calcium 9.1 Liver Function 04/10/23 Range/Units 07:53 Total Bilirubin 0.6 (0.2-1.0) mg/dl AST 12 L (13-39) U/L ALT 11 (7-52) U/L Alkaline Phosphatase 87 (34-104) U/L Albumin 3.6 (3.4-5.0) gm/dl Medications Administered Current Inpatient Medications Acetaminophen (Acetaminophen 325 Mg Tab) 650 mg PO Q4H PRN PRN Reason: Pain or Fever Stop: 05/09/23 17:08 Last Admin: 04/10/23 14:30 Dose: 650 mg Al Hydrox/Mg Hydrox/Simethicone (Aluminum/Magnesium Susp 30 Ml Udc) 15 ml PO Q4H PRN PRN Reason: Dyspepsia Stop: 05/09/23 17:08 Aspirin (Aspirin 81 Mg Ectab) 81 mg PO DAILY MOHAMUD Stop: 05/10/23 08:59 Last Admin: 04/10/23 09:22 Dose: 81 mg Cyanocobalamin (Cyanocobalamin (B-12) 500 Mcg Tablet) 1,000 mcg PO DAILY MOHAMUD Stop: 05/10/23 08:59 Last Admin: 04/10/23 09:23 Dose: 1,000 mcg Dextrose (Dextrose 50% 50 Ml Syringe) 25 - 50 ml IV UD PRN; Protocol PRN Reason: Hypoglycemia Protocol Stop: 05/09/23 17:08 Docusate Sodium (Docusate Sodium 100 Mg Cap) 100 mg PO BID PRN PRN Reason: Constipation Stop: 05/09/23 17:08 Enoxaparin Sodium (Enoxaparin Inj 40 Mg/0.4 Ml Syr) 40 mg SQ HS [facility] Stop: 05/09/23 20:59 Last Admin: 04/09/23 20:30 Dose: 40 mg Famotidine (Famotidine 20 Mg Tab) 20 mg PO QAM [facility] Stop: 05/09/23 17:08 Last Admin: 04/10/23 09:23 Dose: 20 mg Ferrous Sulfate (Ferrous Sulfate 325 Mg Tab) 325 mg PO DAILY [facility] Stop: 05/10/23 08:59 Last Admin: 04/10/23 09:18 Dose: Not Given Furosemide (Furosemide 40 Mg Tab) 40 mg PO QAM [facility] Stop: 05/10/23 08:59 Last Admin: 04/10/23 09:23 Dose: 40 mg Gabapentin (Gabapentin 300 Mg Cap) 600 mg PO HS [facility] Stop: 05/09/23 20:59 Last Admin: 04/09/23 20:29 Dose: 600 mg Glucagon (Glucagon For Inj 1 Mg Vial) 1 mg SQ UD PRN; Protocol PRN Reason: Hypoglycemia Protocol Stop: 05/09/23 17:08 Glucose (Glucose 10 Tab/Tube) 4 - 8 tab PO UD PRN; Protocol PRN Reason: Hypoglycemia Treatment Stop: 05/09/23 17:08 Glucose (Glucose 40% Gel 15 Gm Tube) 15 - 30 gm PO UD PRN; Protocol PRN Reason: Hypoglycemia Protocol Stop: 05/09/23 17:08 Hydralazine HCl (Hydralazine Tab 50 Mg Tab) 50 mg PO BID [facility] Stop: 05/09/23 20:59 Last Admin: 04/10/23 09:23 Dose: 50 mg Insulin Aspart (Insulin Aspart Per Unit Charge) 0 units SC ACHS [facility]; Protocol Stop: 05/09/23 17:08 Last Admin: 04/10/23 12:57 Dose: 7 units Insulin Glargine (Lantus Per Unit Charge) 22 units SQ BID [facility]; Protocol Stop: 05/09/23 20:59 Last Admin: 04/10/23 09:22 Dose: 22 units Lactic Acid (Ammonium Lactate 12% Lotion 225 Gm Btl) 1 gm EXT BID [facility] Stop: 05/09/23 20:59 Last Admin: 04/10/23 12:22 Dose: 1 gm Magnesium Hydroxide (Magnesium Hydroxide Susp 30 Ml Udc) 30 ml PO Q12H PRN PRN Reason: Constipation Stop: 05/09/23 17:08 Metoprolol Succinate (Metoprolol Succ 25mg Ext Rel Tab) 25 mg PO QAM [facility]OH[facility]UD Stop: 05/10/23 08:59 Last Admin: 04/10/23 09:23 Dose: 25 mg Miscellaneous (Carbohydrates For Hypoglycemia ) 15 - 30 gm PO UD PRN PRN Reason: Hypoglycemia Protocol Stop: 05/09/23 17:08 Miscellaneous Information (Pharmacy Glycemic Mgmt Consult) 1 each N/A UD PRN; Protocol PRN Reason: Consult Stop: 05/09/23 17:08 Ondansetron HCl (Ondansetron Inj 2 Mg/Ml 2 Ml Vial) 4 mg IV Q6H PRN PRN Reason: Nausea Stop: 05/09/23 17:08 Last Admin: 04/10/23 00:09 Dose: 4 mg Polyethylene Glycol (Polyethylene (Miralax) 17 Gm Pack) 17 gm PO DAILY PRN PRN Reason: Constipation Stop: 05/09/23 17:08 Saccharomyces Boulardii (Saccharomyces Boulardii 250 Mg Cap) 250 mg PO BID MOHAMUD Stop: 05/09/23 20:59 Last Admin: 04/10/23 09:23 Dose: 250 mg Tramadol HCl (Tramadol Hcl 50 Mg Tablet) 50 mg PO Q6H PRN PRN Reason: .Moderate pain Stop: 05/09/23 17:08 Last Admin: 04/10/23 00:10 Dose: 50 mg (3) Type 2 diabetes mellitus, with long-term current use of insulin Diabetes mellitus complication status: without complication Qualified Code(s): E11.9 - Type 2 diabetes mellitus without complications; Z79.4 - custodial (current) use of insulin
--- NOTE | 2023-04-10 16:40 | Electrocardiogram Report ---
Test Reason : Blood Pressure : / mmHG Vent. Rate : 072 BPM Atrial Rate : 072 BPM P-R Int : 148 ms QRS Dur : 146 ms QT Int : 460 ms P-R-T Axes : 065 031 000 degrees QTc Int : 503 ms Normal sinus rhythm Right bundle branch block Abnormal ECG When compared with ECG of 17-MAY-2022 19:15, QRS duration has increased Confirmed by Kirby Melchor ([id number]) on 04/10/2023 4:39:24 PM Referred By: REFERRED SELF Confirmed By:Kirby Melchor
[2023-04-10] MEDS: ENOXAPARIN INJ 40 MG/0.4 ML SYR SQ SCH (20:59)
[2023-04-10] MEDS: GABAPENTIN 300 MG CAP PO SCH (21:00)
[2023-04-11 06:25] LABS: Basophils # (auto) 0.03 K/uL (0.00-0.20); Basophils % (auto) 0.4 %; Eosinophils # (auto) 0.23 K/uL (0.00-0.50); Eosinophils % (auto) 3.3 %; Hemoglobin 9.6 g/dl (12.0-16.0); Immature Granulocytes # (auto) 0.01 K/uL (0.01-0.20); Immature Granulocytes % (auto) 0.1 %; Lymphocytes # (auto) 2.01 K/uL (1.20-3.40); Lymphocytes % (auto) 29.2 %; Mean Corpuscular Hemoglobin 28.4 pg (25.0-34.0); Mean Corpuscular Volume 91.7 fL (80.0-100.0); Mean Platelet Volume 12.6 fL (9.4-12.4); Monocytes # (auto) 0.54 K/uL (0.11-0.59); Monocytes % (auto) 7.8 %; Neutrophils # (auto) 4.07 K/uL (1.40-6.50); Neutrophils % (auto) 59.2 %; Platelet Count 139 K/uL (130-400); RDW Coefficient of Variation 15.7 % (11.5-14.5); RDW Standard Deviation 52.3 fL (36.4-46.3); Red Blood Count 3.38 M/uL (4.20-5.40); White Blood Count 6.89 K/ul (4.8-10.8)
[2023-04-11 06:47] LABS: BUN Creatinine Ratio 23.4 (10-20); Calcium 8.6 mg/dl (8.6-10.3); Creatinine Clr Calc Pharmacy 51.2 ml/min; Est GFR (African American) 33.6 ml/min; Potassium 4.2 mmol/L (3.5-5.1)
[2023-04-11] MEDS: FAMOTIDINE 20 MG TAB PO SCH (08:32)
[2023-04-11] MEDS: FERROUS SULFATE 325 MG TAB PO SCH (08:32)
[2023-04-11] MEDS: ASPIRIN 81 MG ECTAB PO SCH (08:32)
[2023-04-11] MEDS: hydrALAZINE TAB 50 MG TAB PO SCH ×2 (08:32→20:42)
[2023-04-11] MEDS: CYANOCOBALAMIN (B-12) 500 MCG TABLET PO SCH (08:32)
[2023-04-11] MEDS: SACCHAROMYCES BOULARDII 250 MG CAP PO SCH ×2 (08:32→20:41)
[2023-04-11] MEDS: FUROSEMIDE 40 MG TAB PO SCH (08:32)
[2023-04-11] MEDS: AMMONIUM LACTATE 12% LOTION 225 GM BTL EXT SCH ×2 (08:33→20:41)
[2023-04-11] MEDS: METOPROLOL SUCC 25MG EXT REL TAB PO SCH (08:33)
--- NOTE | 2023-04-11 08:43 | Pharmacy Report ---
Pharmacy Glycemic Short Note 2 - Date of Service April 11, 2023 - Glycemic Short BSG Results (Last 24 hours): 04/10/23 04/10/23 04/10/23 07:53 12:15 16:59 Glucose 148 H POC Glucose 155 H 125 H 04/10/23 04/11/23 04/11/23 20:46 05:41 07:54 Glucose 156 H POC Glucose 152 H 161 H OUTPATIENT ANTIDIABETIC REGIMEN: * Levemir 25 units SC BID * Humalog 15 units SC AC * HbA1c: 14% ASSESSMENT: 04/11: * Sofiya received 69 units of insulin yesterday, 44 basal + 25 bolus. BSGs were: 353-628-776-152 mg/dL. * Fasting BSG is 161 mg/dL today. Will increase basal slightly. No change to Novolog. No change in stressors. * SCr trending up (1.48 --> 1.57 --> 1.92). Will continue to monitor. No UO data. 04/10: * 53 yo F admitted on 04/09/23 secondary to hypertensive and hyperglycemia. Pharmacy has been consulted to assist with inpatient glycemic management. Patient is a poorly controlled Type 2 diabetic as an outpatient. Please refer to outpatient regimen and most recent HbA1c above. * BSG elevated at 242 mg/dL upon admission. Received 20 units of Lantus and 3 units of Novolog at bedtime last night. During patient's previous admission this month, she was well controlled on 22 units of Lantus BID and Novolog based on weight/stress of 3. Will utilize this regimen to start during admission. * Ordered and tolerating a T2DM diet. No stressors at this time. PLAN FOR INPATIENT GLYCEMIC CONTROL: * Basal insulin * Lantus 23 units SC BID * Bolus insulin * NovoLog per scale ACHS or Q6hrs while NPO * Goal Range: Low 110 mg/dL - High 140 mg/dL * Correction Factor: 20 mg/dL/unit * Nutritional / Prandial insulin per carb ratio of 1 unit per 6 grams CHO consumed
[2023-04-11] MEDS: LANTUS PER UNIT CHARGE SQ SCH ×2 (09:16→20:42)
[2023-04-11] MEDS: INSULIN ASPART PER UNIT CHARGE SC SCH ×4 (09:16→20:42)
--- NOTE | 2023-04-11 15:34 | Hospitalist Progress Note ---
Date of Service April 11, 2023 Assessment & Plan (1) Lymphedema of both lower extremities: (2) Lower limb ulcer, heel or midfoot: (3) Type 2 diabetes mellitus, with long-term current use of insulin: (4) HTN (hypertension): Plan This is a 53-year-old female who has a significant past medical history of insulin-dependent T2DM, diabetic neuropathy, diabetic nephropathy with CKD stage III, HTN, HLD, chronic HFpEF, morbid obesity, history necrotizing fasciitis, bilateral lower extremity lymphedema, left chronic heel ulcer, iron deficiency anemia who presents to ED due to inability to obtain medications. Hypertensive urgency Generally unwell with physical deconditioning-Likely secondary to not having any medications for the last few days Blood pressure noted to be as high as 227/95 in the emergency room without any significant symptom Apparently she has not been taking her medications for the last few days since discharge from the rehab facility Home blood pressure mediations have been restarted and the pressure improved, continue. Failed inpatient rehab discharge to home Consulted CM to help assist in needs of patient - obtaining medications prior to discharge, transport services to [facility] vs further rehab PT/OT- recommended returning home, could benefit from senior care PT Chronic bilateral lower extremity lymphedema Chronic bilateral heel ulcerations left greater than right, POA Hx of necrotizing fascitis s/p I and D in 2021 did not appear acutely infected-did not require any antibiotic to be given Consult wound care-wash legs daily, lac hydrin OP f/u with podiatry as well as wound care; she will likely also need transport as she has no means for transport at this time continue b/l off loading shoes/boots Will need to see a publicist as an outpatient Insulin-dependent T2DM. Poorly controlled. And has not been taking her insulin and are checking blood sugar since discharge from the facility with nephropathy and neuropathy Hgba1c 14.0 on 03/14/23 Continue basal/short-acting regimen. Chronic HFpEF HTN HLD Blood pressure was uncontrolled due to missed medication doses Continue Lasix, hydralazine and metoprolol Daily weights, strict I's and O's chronic, stable No evidence of fluid overload CKD-3 chronic Pt presented on 03/13 with cr 1.0 Recent DAHLIA during hospital stay felt likely secondary to contrast-induced nephropathy as well as multiple antibiotics in setting of acute infection, peak creatinine 2.7 Creatinine improving Morbid Obesity, BMI 35 encourage diet, lifestyle mods TRACI chronic, stable continue iron Diabetic neuropathy continue gabapentin chronic, stable DVT ppx: SQ Lovenox FULL CODE Dispo: possible d/c to home if able to get meds and have enough support or may need further snf rehab Admission and Anticipated Discharge Date Admission Date: April 09, 2023 Subjective Seen at bedside. States she was not ready to go home. Unable to get her needles for her insulin pens. Otherwise no acute concerns. Review of Systems Review of Systems: All systems reviewed & are unremarkable except as noted in Subjective Physical Exam Physical Exam: General: Alert, oriented. No acute distress Psych: Appropriate mood and affect HEENT: NC/AT CV: RRR, Normal s1, s2. No murmurs appreciated Resp: Breath sounds clear bilaterally, no increased effort of breathing. Abdomen:Soft, nontender, nondistended. Extremities:++++ edema in lower extremities bilaterally. Results & Data Results & Data Vital Signs (Past 12 Hours) Vital Signs Temp Pulse Pulse Resp BP Pulse Ox O2 Del Method 04/11/23 08:30 Room Air 04/11/23 11:28 36.4 C L 57 L 18 178/76 H 96 Room Air 04/11/23 07:23 36.4 C L 50 L 16 128/68 93 Room Air 04/11/23 07:45 56 L (3) Type 2 diabetes mellitus, with long-term current use of insulin Diabetes mellitus complication status: without complication Qualified Code(s): E11.9 - Type 2 diabetes mellitus without complications; Z79.4 - termite treater (current) use of insulin
[2023-04-11] MEDS ORDERED: lisinopril 10 MG TAB PO ONE (15:45)
[2023-04-11] MEDS: ACETAMINOPHEN 325 MG TAB PO PRN (19:39)
[2023-04-11] MEDS: ENOXAPARIN INJ 40 MG/0.4 ML SYR SQ SCH (20:41)
[2023-04-11] MEDS: GABAPENTIN 300 MG CAP PO SCH (20:42)
[2023-04-12] MEDS: traMADol HCL 50 MG TABLET PO PRN (02:52)
[2023-04-12 06:40] LABS: Creatinine Clr Calc Pharmacy 58.3 ml/min; Est GFR (African American) 39.5 ml/min; Est GFR (Non-African American) 34.1 ml/min
[2023-04-12] MEDS ORDERED: LANTUS PER UNIT CHARGE SQ SCH (09:00)
[2023-04-12] MEDS: CYANOCOBALAMIN (B-12) 500 MCG TABLET PO SCH (10:07)
[2023-04-12] MEDS: FUROSEMIDE 40 MG TAB PO SCH (10:07)
[2023-04-12] MEDS: SACCHAROMYCES BOULARDII 250 MG CAP PO SCH (10:08)
[2023-04-12] MEDS: METOPROLOL SUCC 25MG EXT REL TAB PO SCH ×2 (10:08→10:09)
[2023-04-12] MEDS: FERROUS SULFATE 325 MG TAB PO SCH (10:08)
[2023-04-12] MEDS: FAMOTIDINE 20 MG TAB PO SCH (10:08)
[2023-04-12] MEDS: hydrALAZINE TAB 50 MG TAB PO SCH (10:08)
[2023-04-12] MEDS: ASPIRIN 81 MG ECTAB PO SCH (10:08)
[2023-04-12] MEDS: AMMONIUM LACTATE 12% LOTION 225 GM BTL EXT SCH (10:08)
[2023-04-12] MEDS: INSULIN ASPART PER UNIT CHARGE SC SCH (10:52)
--- NOTE | 2023-04-12 13:16 | Discharge Summary ---
Discharge Summary Date of Service April 12, 2023 Notes For Next Care Provider Please ensure medication compliance Complex social/home situation requiring follow up Medication Changes From Visit None Admission HPI Per Admitting Provider This is a 53-year-old female who has a significant past medical history of insulin-dependent T2DM, diabetic neuropathy, diabetic nephropathy with CKD stage III, HTN, HLD, chronic HFpEF, morbid obesity, history necrotizing fasciitis, bilateral lower extremity lymphedema, left chronic heel ulcer, iron deficiency anemia who presents to ED due to unable to obtain medications. She was discharged from [facility] yesterday. Of significance patient was recently hospitalized here 03/13 to 03/25 secondary to lower extremity cellulitis, left heel wound and ulcer, chronic lower extremity lymphedema, DAHLIA, UTI and uncontrolled diabetes. She was then discharged to [facility] for which she was discharged yesterday. She feels from rehab standpoint she is much improved and she does have home health set up. She is out of her medications due to not being home for a month and unable to get her medications despite being discharged. She was out of needles and therefore unable to give herself insulin. Currently she is unable to drive because of her legs. She does drive at baseline. She wears b/l off loading shoes. She lives alone at home and does not have much support. She does have [facility] home health set up at this current time. She typically does her own dressings. She denies any SOB, orthopnea, PND, vision changes, recent f/c/s, lightheaded, chest pain, vomiting or diarrhea, dysuria, hematuria, increased urg/freq urination. She complains of nausea for the past 5 days. Typically occurs after meals. She does feel strong since being at rehab. Her last BM was this morning and normal for her. She feels that if she can be set up with appropriate supplies and medications for home she likely can be discharged. When she presented to ED she was significantly hypertensive as well as hyperglycemic. She received her home blood pressure medications of metoprolol and hydralazine which did improve her blood pressures to 160s over 80s. Admission Exam Per Admitting Provider Physical exam notable for bilateral nonpitting edema, hyperkeratosis with diffuse crusting of ?lymphorrhea however no signs of active cellulitis; left heel ulceration that appears clean with granulation tissue and no apparent purulent drainage; erythema and skin maceration under abdominal pannus and breasts; small area of skin maceration in gluteal cleft; no pertinent findings on cardiac/lung exam. Principal Dx & Hospital Course #1 = Principal Diagnosis (1) Lymphedema of both lower extremities: (2) Lower limb ulcer, heel or midfoot: (3) Type 2 diabetes mellitus, with long-term current use of insulin: (4) HTN (hypertension): Plan This is a 53-year-old female who has a significant past medical history of insulin-dependent T2DM, diabetic neuropathy, diabetic nephropathy with CKD stage III, HTN, HLD, chronic HFpEF, morbid obesity, history necrotizing fasciitis, bilateral lower extremity lymphedema, left chronic heel ulcer, iron deficiency anemia who presents to ED due to inability to obtain medications. Hypertensive urgency Generally unwell with physical deconditioning-Likely secondary to not having any medications for the last few days Blood pressure noted to be as high as 227/95 in the emergency room without any significant symptom Apparently she has not been taking her medications for the last few days since discharge from the rehab facility Home blood pressure mediations have been restarted and the pressure improved, continue. Failed inpatient rehab discharge to home Consulted CM to help assist in needs of patient - obtaining medications prior to discharge, transport services to [facility] vs further rehab PT/OT- recommended returning home, could benefit from computer terminal operator PT Chronic bilateral lower extremity lymphedema Chronic bilateral heel ulcerations left greater than right, POA Hx of necrotizing fascitis s/p I and D in 2021 did not appear acutely infected-did not require any antibiotic to be given Consult wound care-wash legs daily, lac hydrin OP f/u with podiatry as well as wound care; she will likely also need transport as she has no means for transport at this time continue b/l off loading shoes/boots Will need to see a supervisor dental laboratory as an outpatient Insulin-dependent T2DM. Poorly controlled. And has not been taking her insulin and are checking blood sugar since discharge from the facility with nephropathy and neuropathy Hgba1c 14.0 on 03/14/23 Continue home levemir and lispro regimen. Pt stated at the time of discharge that she had no way of getting her insulin pen needles. She has [facility] services and the prescription was renewed by discharging provider in the [employer] system. Pt was also provided with a paper prescription for her home needles. In the meantime she was given insulin syringes from the hospital on the advice of Pharmacy to draw up her long acting home Levemir 25U BID from the vials. Pt verbalized understanding and agreement with the plan. PCP follow up recommended. Chronic HFpEF HTN HLD Blood pressure was uncontrolled due to missed medication doses Continue Lasix, hydralazine and metoprolol Daily weights, strict I's and O's chronic, stable No evidence of fluid overload CKD-3 chronic Pt presented on 03/13 with cr 1.0 Recent DAHLIA during hospital stay felt likely secondary to contrast-induced nephropathy as well as multiple antibiotics in setting of acute infection, peak creatinine 2.7 Creatinine improving Morbid Obesity, BMI 35 encourage diet, lifestyle mods TRACI chronic, stable continue iron Diabetic neuropathy continue gabapentin chronic, stable Discharge Exam General: Alert, oriented. No acute distress Psych: Appropriate mood and affect HEENT: NC/AT CV: RRR, Normal s1, s2. No murmurs appreciated Resp: Breath sounds clear bilaterally, no increased effort of breathing. Abdomen:Soft, nontender, nondistended. Extremities:++++ edema in lower extremities bilaterally. Updated Medication List Medication Instructions Recorded Confirmed Type Saccharomyces boulardii 250 mg 250 mg PO BID 03/14/22 04/09/23 History capsule aspirin 81 mg tablet,delayed 81 mg PO DAILY 03/14/22 04/09/23 History release docusate sodium 100 mg capsule 100 mg PO BID PRN Constipation 03/14/22 04/09/23 History ferrous sulfate 325 mg (65 mg 325 mg PO DAILY 03/14/22 04/09/23 History iron) tablet furosemide 40 mg tablet (Lasix) 40 mg PO QAM 05/17/22 04/09/23 History gabapentin 300 mg capsule 600 mg PO HS 05/17/22 04/09/23 History insulin detemir U-100 100 unit/mL 25 unit subcut BID 05/17/22 04/09/23 History subcutaneous solution (Levemir U-100 Insulin) insulin lispro 100 unit/mL 15 unit subcut AC 05/17/22 04/09/23 History subcutaneous solution acetaminophen 500 mg tablet 1,000 mg PO Q6H PRN Pain 03/13/23 04/09/23 History (Tylenol Extra Strength) cyanocobalamin (vitamin B-12) 1,000 mcg PO DAILY 03/13/23 04/09/23 History 1,000 mcg tablet (Vitamin B-12) metoprolol succinate 25 mg 25 mg PO QAM 03/13/23 04/09/23 History tablet,extended release 24 hr tramadol 50 mg tablet 50 mg PO Q6H PRN .Moderate pain 03/13/23 04/09/23 History triamcinolone acetonide 0.1 % 1 applic topical BID 03/13/23 04/09/23 History topical cream hydralazine 50 mg tablet 50 mg PO BID #60 tabs 03/25/23 04/09/23 Rx ammonium lactate 12 % lotion 1 applic topical BID 04/09/23 04/09/23 History Hospital Stay Data Consultations 04/09/23 14:23 ED Decision to Admit Stat Diagnostic Imagining Performed 04/09/23 10:48 CT abd pelvis wo con Stat Pending Results Patient Have Any Pending Studies at Discharge: No Discharge Instructions Given to Patient (Per Discharging Provider) You are being discharged home. You worked with Case Management and they indicated that [facility] [employer] [facility] can deliver any medication that isn't a controlled substance or a refrigerated medication. You have also been receiving medications at home through [facility] and can continue to do so. We have given you a prescription for the needles to use with you insulin pen. In the meantime, if you do not have any needles at home, the pharmacists here have advised that you can draw up your insulin that is in a vial with syringes that we will provide to you. Please continue to take all your other home medications as prescribed. Please keep follow up with your primary care provider for any further assi stance. Total Time Total Time Spent Total Time Spent (In Minutes): >30 minutes
== END 2023-04-12 13:29 | disposition home health service (06) | DRG 607 ==
LOC: EDINP 10:22 → ED 10:22 → SUATTDRO 14:30 → 2N 17:10 → SUATTDRO 04-11 22:06

== ENCOUNTER 2023-07-04 08:03 | Inpatient (IN) ==
--- NOTE | 2023-07-04 08:28 | Emergency Department Note ---
Impression & Plan Fluid overload, Elevated troponin, Acute on chronic renal insufficiency, Chest pain ED Provider Note Name: LUIS MANUEL MIKE Age: 53 Sex: Female Arrives Via: Ambulance Informant: Patient, EMS, Nursing Staff ED Provider: Zafar Balderas MD Chief Complaint: Shortness of breath Impression: Shortness of breath Medical Decision Makin-year-old female with extensive past medical history including type 2 diabetes, CHF, renal sufficiency amongst others arrives for evaluation of worsening edema and shortness of breath. On examination patient is comfortable in no distress. She does have extensive edema primarily over bilateral legs and left arm. There is wound on the left ankle which is currently dressed. Patient does not appear septic. Laboratory work-up does show an elevated BNP and chest x-ray with some congestive findings. Laboratory work-up does bit concerning as her renal function is worsened. The troponin is mildly elevated. It is difficult to say whether this is ACS given her recent chest pain or just due to her worsening renal function. Given no active chest pain we will hold off on anticoagulation quite at this time and await repeat testing and further evaluation. Given the patient's need for nasal cannula O2, congestive findings as well as worsening renal function in the setting of an elevated troponin hospitalist was consulted for further management Triage/Nursing Notes reviewed by Me External Chart Review by me: Extensive chart reviewed by me including previous hospitalization record and discharge summary from 05/08/2023. Being treated for left leg osteomyelitis significant edema at that time as well. Differential:Infection, dehydration, metabolic abnormality, hypo/hyperglycemia, electrolyte disturbance, anemia, hypoxia, cardiac sources, intracerebral event, toxicologic, neurologic, as well as other pathologies. Vital Signs: reviewed and remarkable for bradycardia Interventions: NC O2 Labs:ED labs Reviewed by me and remarkable for elevated troponin, elevated CRP, elevated BNP Imaging: X ray results are stated below per my interpretation: Chest: 1 view: Congestive failure no pneumothorax no overt pneumonia EKG:As per my interpretation. Indication shortness of breath and chest pain. Sinus bradycardia 50 bpm with a QTc of 441. There is a right bundle branch block. When compared to EKG of April 28, 2023 rate has significantly dropped but morphology is overall similar. Cardiac/Tele Monitoring: Cardiac Monitoring: An Order was placed for continuous cardiac monitoring. The monitor shows a rate of 55 with a sinus td rhythm. Consults:Dr Conley Hospitalist Plan: Disposition:Hospitalization. Condition: Good History of Present Illness: 53-year-old female arrives for evaluation of shortness of breath. Patient notes worsening shortness of breath over the last few weeks. Yesterday started developing chest pains with her shortness of breath. Was placed on oxygen and states shortness of breath is improved. She has been increasing fluid overload over the last few weeks as well. She states her arms and hands are starting to swell. Her left arm was so swollen that they got an ultrasound a few days ago which she states was negative. Patient reports the chest pain yesterday was left-sided and intermittent and pressure-like. No radiation of pain. Patient reports a few days or weeks ago she had had a bad episode of nausea vomiting and had taken some of her medications for several days in a row. Patient denies any current chest pain, shortness of breath. She notes she feels very weak and tired. She has had no recent fevers, chills, worsening of ulcers or other concerning signs or symptoms. Patient has chronic lymphedema of her legs with ulcer of the left heel resulting in osteomyelitis which is being monitored by podiatry. Past Medical History:See Below Home Medications:See Below Allergies: No known drug allergies Vitals:Blood Pressure: 97/70, Pulse 50, RR 17, T 36.4C, O2 97% on 2L NC Physical Exam: GENERAL: Patient is chronically unwell appearing and in no distress. Dry cracked mucous membranes RESPIRATORY: No dyspnea. Diffuse crackles all areas CARDIOVASCULAR: Bradycardic.No murmur appreciated. GASTROINTESTINAL: Abdomen soft, non-tender, no peritonitis. EXTREMITIES: Lymphedema bilateral lower legs with venous stasis changes. There is wound dressing over the left ankle. Pitting edema bilateral lower legs left arm and mild edema right arm NEUROLOGIC: Alert and oriented. No focal neurologic deficits appreciated SKIN: No rash, no jaundice, no diaphoresis. PSYCH: Appropriate GCS: 15 ED Course: Times/Reassessments: Patient stable throughout. Initial blood pressure was elevated repeat was low but then further BPs were essentially unremarkable Zafar Balderas MD Past Med/Surg History Medical History Anemia Back pain Cellulitis of left lower extremity Depression with anxiety Diabetes type 2, uncontrolled Diabetic peripheral neuropathy associated with type 2 diabetes mellitus Dysfunctional uterine bleeding Dyslipidemia Fatigue Hirsutism History of DVT (deep vein thrombosis) HTN (hypertension) Insomnia Loss of protective sensation of skin of foot Obesity Personal history of diabetic foot ulcer Tobacco use Type 2 diabetes mellitus with complications Type 2 diabetes mellitus, with long-term current use of insulin Varicose veins of both lower extremities Vitamin D deficiency Xerosis cutis Surgical History History of incision and drainage left foot by Dr. Haq on 10-03-19. H/O tooth extraction History of cholecystectomy History of facial surgery History of nasal polypectomy History of endometrial ablation History of tubal ligation History of hysterectomy History of Family History Father Dyslipidemia Prostate cancer Diabetes Lung cancer Mother Lung cancer Hypothyroidism Brother Coronary heart disease Asthma Grandfather (Maternal) Myocardial infarction Grandmother (Maternal) Myocardial infarction Grandmother (Paternal) Breast cancer Diabetes Social History Smoking Status: Former smoker Tobacco Type: Cigarettes Hx Alcohol Use: No Hx Substance Use: No Preferred Language: Serbian Communication Ability: Effective Hr Administrator Required: No Beliefs That Will Affect Care: None marital status: Single Current Living Situation: Rehab Current Living Situation Comment: Patient lives alone. She has home health nurses. Feels Safe at Home: Yes Assistive Devices: Walker and Wheelchair Allergies Allergies Allergy/AdvReac Type Severity Reaction Status Date / Time No Known Allergies Allergy Unknown Verified 04/28/23 19:53 Home Meds Home Medications Medication Instructions Recorded Confirmed aspirin 81 mg tablet,delayed 81 mg PO QAM 03/14/22 07/04/23 release ferrous sulfate 325 mg (65 mg 325 mg PO DAILY 03/14/22 07/04/23 iron) tablet furosemide 40 mg tablet (Lasix) 40 mg PO QAM 05/17/22 07/04/23 insulin detemir U-100 100 unit/mL 27 unit subcut BID 05/17/22 07/04/23 subcutaneous solution (Levemir U-100 Insulin) insulin lispro 100 unit/mL 10 unit subcut AC 05/17/22 07/04/23 subcutaneous solution acetaminophen 500 mg tablet 1,000 mg PO Q6H PRN Pain 03/13/23 07/04/23 (Tylenol Extra Strength) cyanocobalamin (vitamin B-12) 1,000 mcg PO DAILY 03/13/23 07/04/23 1,000 mcg tablet (Vitamin B-12) metoprolol succinate 25 mg 25 mg PO QAM 03/13/23 07/04/23 tablet,extended release 24 hr fluoxetine 20 mg capsule (Prozac) 20 mg PO DAILY 07/04/23 07/04/23 hydralazine 50 mg tablet 50 mg PO QAM 07/04/23 07/04/23 melatonin 3 mg tablet 3 mg PO HS 07/04/23 07/04/23 Previous Rx's Medication Instructions Recorded gabapentin 600 mg tablet 600 mg PO BID #60 tabs 05/08/23 Results & Data (ED) Vital Signs Vital Signs - 24 hr 07/04/23 08:12 07/04/23 08:12 07/04/23 08:19 Temperature 36.4 C L Temperature Source Oral Pulse Rate 55 L 50 L Pulse Rate [Right Finger] Respiratory Rate 17 Respiratory Effort / Characteristics Respiratory Depth Normal Blood Pressure 192/85 H Blood Pressure [Left Arm] Blood Pressure Mean 120 Blood Pressure Mean [Left Arm] Pulse Oximetry 97 100 Oxygen Delivery Method Room Air Nasal Cannula Oxygen Flow Rate 2 2 Sepsis Recent Fever Within 48 Hours Yes Sepsis New/Unexplained Change in Mental Status N/A Sepsis Action Taken by Nursing No Action Required 07/04/23 10:00 Temperature Temperature Source Pulse Rate Pulse Rate [Right Finger] 58 L Respiratory Rate 16 Respiratory Effort / Characteristics Non-Labored Respiratory Depth Normal Blood Pressure Blood Pressure [Left Arm] 157/84 H Blood Pressure Mean Blood Pressure Mean [Left Arm] 108 Pulse Oximetry Oxygen Delivery Method Nasal Cannula Oxygen Flow Rate 2 Sepsis Recent Fever Within 48 Hours Sepsis New/Unexplained Change in Mental Status Sepsis Action Taken by Nursing Laboratory Data 07/04/23 09:16 07/04/23 09:16 Lab Results 07/04/23 Range/Units 09:16 WBC 7.79 (4.8-10.8) K/ul RBC 4.39 (4.20-5.40) M/uL Hgb 12.2 (12.0-16.0) g/dl Hct 40.5 (37.0-47.0) % MCV 92.3 (80.0-100.0) fL MCH 27.8 (25.0-34.0) pg MCHC 30.1 L (32.0-36.0) g/dL RDW Std Deviation 52.2 H (36.4-46.3) fL RDW Coeff of Mya 15.5 H (11.5-14.5) % Plt Count 185 (130-400) K/uL MPV 11.8 (9.4-12.4) fL Immature Gran % (Auto) 0.5 % Neut % (Auto) 71.5 % Lymph % (Auto) 18.2 % Kane % (Auto) 8.0 % Eos % (Auto) 1.2 % Baso % (Auto) 0.6 % Neut # (Auto) 5.57 (1.40-6.50) K/uL Lymph # (Auto) 1.42 (1.20-3.40) K/uL Kane # (Auto) 0.62 H (0.11-0.59) K/uL Eos # (Auto) 0.09 (0.00-0.50) K/uL Baso # (Auto) 0.05 (0.00-0.20) K/uL Immature Gran # (Auto) 0.04 (0.01-0.20) K/uL Sodium 140 (136-145) mmol/L Potassium 5.4 H (3.5-5.1) mmol/L Chloride 108 H (98-107) mmol/L Carbon Dioxide 26 (21-32) mmol/L Anion Gap 6 (3-11) BUN 52 H (6-23) mg/dl Creatinine 1.81 H (0.6-1.2) mg/dl Est Cr Clr Drug Dosing 61.9 ml/min Est GFR ( Amer) 36.1 ml/min Est GFR (Non-Af Amer) 31.1 ml/min BUN/Creatinine Ratio 28.7 H (10-20) Glucose 168 H (70-99(Fasting)) mg/dl Calcium 9.1 (8.6-10.3) mg/dl Magnesium 2.5 H (1.7-2.4) mg/dl Total Bilirubin 0.6 (0.2-1.0) mg/dl Direct Bilirubin 0.1 (0-0.2) mg/dl AST 28 (13-39) U/L ALT 22 (7-52) U/L Alkaline Phosphatase 93 (34-104) U/L Troponin I High Sens 72.9 H* (0-14) pg/ml B-Natriuretic Peptide 429 H (0-100) pg/ml Total Protein 7.0 (6.0-8.3) gm/dl Albumin 3.4 (3.4-5.0) gm/dl Administered Medications Discontinued Medications Furosemide (Furosemide 40 Mg/4 Ml Vial) 40 mg IV ONE ONE Stop: 07/04/23 11:57 Last Admin: 07/04/23 13:11 Dose: 40 mg Documented By: NRB Imaging Data Radiologist's Impression: Chest X-Ray 07/04/23 08:25 XR chest 1V portable HISTORY: shortness of breath COMPARISON: Chest 04/28/2023. FINDINGS: There are low lung volumes. The heart is mildly enlarged. There is progressive perihilar interstitial/vascular thickening consistent with mild congestive change. No new focal lung consolidations to suggest a pneumonia. Small linear scarlike density within the left upper lobe persists. No acute fractures identified. No pneumothorax. No pleural effusions. IMPRESSION: Cardiomegaly and mild central pulmonary vascular congestion without overt edema. This has slightly progressed in the interval. ACT 112: Negative or not required by law. Electronically signed by: Tee Huerta M.D. 07/04/2023 9:52 AM Discharge Plan Visit Data Chief Complaint: Swelling/Edema to Extremity ED Provider: Zafar Balderas Discharge Problem: Fluid overload, Elevated troponin, Acute on chronic renal insufficiency, Chest pain Discharge Instructions Interventions: ED Discharge Assessment Last Done: 07/04/23 13:47 Discharge Problem: Fluid overload Qualifiers: Hypervolemia type: other Qualified Code(s): E87.79 - Other fluid overload Chest pain Qualifiers: Chest pain type: unspecified Qualified Code(s): R07.9 - Chest pain, unspecified
--- NOTE | 2023-07-04 09:07 | Electrocardiogram Report ---
Test Reason : Blood Pressure : / mmHG Vent. 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 rate has decreased BY 27 BPM Criteria for Anterolateral infarct are no longer Present Confirmed by Kirby Melchor ([id number]) on 07/04/2023 9:06:41 AM Referred By: Confirmed By:Kirby Melchor
[2023-07-04 09:40] LABS: Basophils # (auto) 0.05 K/uL (0.00-0.20); Basophils % (auto) 0.6 %; Eosinophils # (auto) 0.09 K/uL (0.00-0.50); Eosinophils % (auto) 1.2 %; Hematocrit (blood only) 40.5 % (37.0-47.0); Hemoglobin 12.2 g/dl (12.0-16.0); Immature Granulocytes # (auto) 0.04 K/uL (0.01-0.20); Immature Granulocytes % (auto) 0.5 %; Lymphocytes # (auto) 1.42 K/uL (1.20-3.40); Lymphocytes % (auto) 18.2 %; Mean Corpuscular Hemoglobin 27.8 pg (25.0-34.0); Mean Corpuscular Hgb Conc 30.1 g/dL (32.0-36.0); Mean Corpuscular Volume 92.3 fL (80.0-100.0); Mean Platelet Volume 11.8 fL (9.4-12.4); Monocytes # (auto) 0.62 K/uL (0.11-0.59); Neutrophils # (auto) 5.57 K/uL (1.40-6.50); Neutrophils % (auto) 71.5 %; Platelet Count 185 K/uL (130-400); RDW Coefficient of Variation 15.5 % (11.5-14.5); RDW Standard Deviation 52.2 fL (36.4-46.3); Red Blood Count 4.39 M/uL (4.20-5.40); White Blood Count 7.79 K/ul (4.8-10.8)
--- NOTE | 2023-07-04 09:53 | XRay Report ---
XR chest 1V portable HISTORY: shortness of breath COMPARISON: Chest 04/28/2023. FINDINGS: There are low lung volumes. The heart is mildly enlarged. There is progressive perihilar in terstitial/vascular thickening consistent with mild congestive change. No new focal lung consolidatio ns to suggest a pneumonia. Small linear scarlike density within the left upper lobe persists. No acut e fractures identified. No pneumothorax. No pleural effusions. IMPRESSION: Cardiomegaly and mild central pulmonary vascular congestion without overt edema. This has slightly pr ogressed in the interval. ACT 112: Negative or not required by law. Electronically signed by: Tee Huerta M.D. 07/04/2023 9:52 AM
[2023-07-04 09:54] LABS: Albumin Level 3.4 gm/dl (3.4-5.0); BUN Creatinine Ratio 28.7 (10-20); Bilirubin Direct 0.1 mg/dl (0-0.2); Bilirubin,Total 0.6 mg/dl (0.2-1.0); Calcium 9.1 mg/dl (8.6-10.3); Creatinine Clr Calc Pharmacy 61.9 ml/min; Est GFR (African American) 36.1 ml/min; Est GFR (Non-African American) 31.1 ml/min; Magnesium 2.5 mg/dl (1.7-2.4); Potassium 5.4 mmol/L (3.5-5.1)
[2023-07-04 10:08] LABS: Troponin I High Sensitivity 72.9 pg/ml (0-14)
--- NOTE | 2023-07-04 10:28 | Emergency Department Note ---
ED Visit Note I personally performed a history and examined the patient in conjunction with Dr. Balderas. Additional information regarding the history, physical, assessment, and plan were discussed with supervising attending physician and are noted in their ED visit note. . Resident Activity Tracking Resident Involvement: Resident Care Provided Care Provided: Adult ED
--- NOTE | 2023-07-04 10:35 | History & Physical Report ---
Date of Service July 04, 2023 Assessment & Plan (1) CHF (congestive heart failure): (2) Hypertension: (3) Diabetic ulcer of foot associated with type 2 diabetes mellitus, with bone involvement without evidence of necrosis: (4) Lymphedema of both lower extremities: (5) Anemia: (6) UTI (urinary tract infection): (7) Type 2 diabetes mellitus, with long-term current use of insulin: (8) Diabetic peripheral neuropathy associated with type 2 diabetes mellitus: (9) Obesity: Plan: Chronic HFpEF HTN HLD - CXR with mild pulmonary vascular congestion, BNP 429, Troponin 72.9, will trend x 2 more sets - Home Lasix was increased from 20 - 40 yesterday at [facility], pt missed lasix this morning as well as other antihypertensive meds. , hydralazine and metoprolol succ 25 mg --> will HOLD metoprolol as HR 50s. - Cr is slightly elevated today at 1.81 compared to baseline of 1.3-1.5, edematous in the BLE, left arm and abdomen - Give Lasix 40 mg IV now with edema diffusely, krishna catheter to be inserted, bladder scan prn - EKG reviewed personally showing sinus bradycardia and RBBB - Daily weights, strict I/Os - Check ECHO as there is not one in the system from recently - Consider cardiology consultation DAHLIA on CKD stage III Hx of UTI - Cr is slightly elevated today at 1.81 compared to baseline of 1.3-1.5, monitor with am labs - UA appears to be infected, Urine culture, check blood cx x 2, will start on IV ceftriaxone - Will consult nephro Anemia -Hx of iron def anemia -Hgb of 12.2 on admission, historically in 10 range on discharge last time, possibly hemoconcentrated -Continue home iron supplementation Insulin-dependent T2DM. -with nephropathy and neuropathy -Hgba1c 10.1% on 04/28/23 -Continue basal home dose of 27U BID, ISS with meals and HS - Was taken off ozempic about 1 month ago as it was assumed that this was causing nausea for the patient. Diabetic neuropathy -continue gabapentin BID -Given pain on last admission, will temporarily increase to 300mg BID. - PT/OT consults Morbid Obesity, BMI 57.5 -encourage diet, lifestyle modification with exercise DVT PPx: teds, scds Lines: 2 PIV CODE: Full code FEN/GI HH/DM diet Dispo: From [facility], likely to remain in the hospital x 1-2 days, CM to assist with DC planning back to [facility] History of Present Illness Chief Complaint: Increased swelling of legs Primary Care Provider: Mayra Holley, DO 53yoF with PMHx significant for insulin-dependent T2DM, diabetic neuropathy, diabetic nephropathy with CKD stage III, HTN, HLD, chronic HFpEF, morbid obesity, history necrotizing fasciitis, bilateral lower extremity lymphedema, iron deficiency anemia and left chronic heel ulcer who presents to the ED for increased edema of BLE, and not feeling well. She has been admitted every month this year since February, for issues including for her wounds and social needs/medication management. She was last discharged on 05/08/2023. Pt is a resident of [facility], and has not walked in several months due to lower extremity pain, heel wound, lymphedema and deconditioning. Her PT ran out about 3 weeks ago and therefore has not been participating in it. The patient presents to the hospital this morning with complaints of shortness of breath and feeling she is filling up with fluid, with swelling in her legs, as well as the left upper arm and abdomen. She notes yesterday had episode of chest pain in the morning, which was waxing and waning in nature in the front of her chest, and lasted for a short time, but it happened 2-3 times yesterday. She feels short of breath moreso today than yesterday and felt worried, so called 911 herself while at [facility] . Pt denies any chest pain currently, but is feeling short of breath and wearing 2 L o2, where normally does not require at baseline. Discussion was held with nursing from the facility for medication reconcilliation personally - they also report that yesterday the patient refused all her medications except for lispro insulin at breakfast. Ozempic was discontinued about 1 month ago as there was concern that this medication was increasing nausea for the patient. Due to increased edema, lasix was increased from 20 to 40 mg yesterday, and she was given 40 mg IM injection yesterday. They have been dressing the left heel wound with santel and dry kerlix daily. Allergies Allergy/AdvReac Type Severity Reaction Status Date / Time No Known Allergies Allergy Unknown Verified 04/28/23 19:53 Home Medications Medication Instructions Recorded Confirmed Type aspirin 81 mg tablet,delayed 81 mg PO QAM 03/14/22 07/04/23 History release ferrous sulfate 325 mg (65 mg 325 mg PO DAILY 03/14/22 07/04/23 History iron) tablet furosemide 40 mg tablet (Lasix) 40 mg PO QAM 05/17/22 07/04/23 History insulin detemir U-100 100 unit/mL 27 unit subcut BID 05/17/22 07/04/23 History subcutaneous solution (Levemir U-100 Insulin) insulin lispro 100 unit/mL 10 unit subcut AC 05/17/22 07/04/23 History subcutaneous solution acetaminophen 500 mg tablet 1,000 mg PO Q6H PRN Pain 03/13/23 07/04/23 History (Tylenol Extra Strength) cyanocobalamin (vitamin B-12) 1,000 mcg PO DAILY 03/13/23 07/04/23 History 1,000 mcg tablet (Vitamin B-12) metoprolol succinate 25 mg 25 mg PO QAM 03/13/23 07/04/23 History tablet,extended release 24 hr gabapentin 600 mg tablet 600 mg PO BID #60 tabs 05/08/23 07/04/23 Rx fluoxetine 20 mg capsule (Prozac) 20 mg PO DAILY 07/04/23 07/04/23 History hydralazine 50 mg tablet 50 mg PO QAM 07/04/23 07/04/23 History melatonin 3 mg tablet 3 mg PO HS 07/04/23 07/04/23 History Past Med/Surg History Medical History Anemia Back pain Cellulitis of left lower extremity Depression with anxiety Diabetes type 2, uncontrolled Diabetic peripheral neuropathy associated with type 2 diabetes mellitus Dysfunctional uterine bleeding Dyslipidemia Fatigue Hirsutism History of DVT (deep vein thrombosis) HTN (hypertension) Insomnia Loss of protective sensation of skin of foot Obesity Personal history of diabetic foot ulcer Tobacco use Type 2 diabetes mellitus with complications Type 2 diabetes mellitus, with long-term current use of insulin Varicose veins of both lower extremities Vitamin D deficiency Xerosis cutis Surgical History History of incision and drainage left foot by Dr. Haq on 10-03-19. H/O tooth extraction History of cholecystectomy History of facial surgery History of nasal polypectomy History of endometrial ablation History of tubal ligation History of hysterectomy History of Family History Father Dyslipidemia Prostate cancer Diabetes Lung cancer Mother Lung cancer Hypothyroidism Brother Coronary heart disease Asthma Grandfather (Maternal) Myocardial infarction Grandmother (Maternal) Myocardial infarction Grandmother (Paternal) Breast cancer Diabetes Social History Smoking Status: Former smoker Tobacco Type: Cigarettes Hx Alcohol Use: No Hx Substance Use: No Preferred Language: Kazakh Communication Ability: Effective Button Spindler Required: No Beliefs That Will Affect Care: None marital status: Single Current Living Situation: Alone Current Living Situation Comment: Patient lives alone. She has home health nurses. Feels Safe at Home: Yes Assistive Devices: Walker Review of Systems Review of Systems: Constitutional: No fever, sweats or chills Eyes: No diplopia, no worsening or blurred vision ENT: normal hearing, no trouble swallowing Respiratory: No cough, sputum, + Increased shortness of breath at rest Cardiovascular: As per HPI, no current chest pain Abdomen: No pain, nausea, vomiting, diarrhea or constipation Musculoskeletal: No joint pain, calf pain, + chronic LE swelling, Left arm swelling Neurologic: No weakness, numbness/tingling, or balance problems Psychiatric: No anxiety or depression Skin: No rash or itch Physical Exam Physical Exam: General: awake, alert, no apparent distress, morbidly obese female with BMI of 57.5 Head: Normocephalic, atraumatic ENT: PERRL, EOMI, no pharyngeal exudate, mucous membranes dry Chest: Clear to auscultation, on 1 L via NC with sats a 99%, breath sounds difficult to auscultate due to body habitus, diminished but no obvious rales, rhonchi or wheeze. Cardiac: Sinus td with HR in the 50s, no murmur, no JVD, normal peripheral pulses, good capillary refill Abdominal: NABS x 4 quadrants, soft, nondistended, nontender to palpation, no rebound or guarding Extremities: Normal inspection, + significant 2+ pitting edema BLE up to knees, chronic skin changes, no erythema, + left heel wound present, no surrounding erythema calfs nontender to palpation Psych: Normal mood and affect Neuro: AAO x 3, strength intact bilaterally and rated 5/5 in upper extremities, rated 3/5 in lower extremities, no gross motor deficits, speech is clear, no peripheral sensory deficits Results & Data Results & Data Vital Signs (Past 12 Hours) Vital Signs Temp Pulse Resp BP Pulse Ox O2 Del Method O2 Flow Rate 07/04/23 08:19 50 L 07/04/23 08:12 36.4 C L 55 L 17 192/85 H 97 Room Air 2 Laboratory Results 07/04/23 09:16 WBC 7.79 RBC 4.39 Hgb 12.2 Hct 40.5 MCV 92.3 MCH 27.8 MCHC 30.1 L RDW Std Deviation 52.2 H RDW Coeff of Mya 15.5 H Plt Count 185 MPV 11.8 Immature Gran % (Auto) 0.5 Neut % (Auto) 71.5 Lymph % (Auto) 18.2 Clark % (Auto) 8.0 Eos % (Auto) 1.2 Baso % (Auto) 0.6 Neut # (Auto) 5.57 Lymph # (Auto) 1.42 Clark # (Auto) 0.62 H Eos # (Auto) 0.09 Baso # (Auto) 0.05 Immature Gran # (Auto) 0.04 Sodium 140 Potassium 5.4 H Chloride 108 H Carbon Dioxide 26 Anion Gap 6 BUN 52 H Creatinine 1.81 H Est Cr Clr Drug Dosing 61.9 Est GFR ( Amer) 36.1 Est GFR (Non-Af Amer) 31.1 BUN/Creatinine Ratio 28.7 H Glucose 168 H Calcium 9.1 Magnesium 2.5 H Total Bilirubin 0.6 Direct Bilirubin 0.1 AST 28 ALT 22 Alkaline Phosphatase 93 Troponin I High Sens 72.9 H* B-Natriuretic Peptide 429 H Total Protein 7.0 Albumin 3.4 Diagnostic Findings Chest X-Ray 07/04/23 08:25 XR chest 1V portable HISTORY: shortness of breath COMPARISON: Chest 04/28/2023. FINDINGS: There are low lung volumes. The heart is mildly enlarged. There is progressive perihilar interstitial/vascular thickening consistent with mild congestive change. No new focal lung consolidations to suggest a pneumonia. Small linear scarlike density within the left upper lobe persists. No acute fractures identified. No pneumothorax. No pleural effusions. IMPRESSION: Cardiomegaly and mild central pulmonary vascular congestion without overt edema. This has slightly progressed in the interval. ACT 112: Negative or not required by law. Electronically signed by: Tee Huerta M.D. 07/04/2023 9:52 AM ECG Additional Comments: 04-JUL-2023 08:10:40 [facility]-EDSTAT ROUTINE RETRIEVAL Sinus bradycardia Right bundle branch block Old Inferior infarct (cited on or before 28-APR-2023) Abnormal ECG When compared with ECG of 28-APR-2023 12:52, Vent. rate has decreased BY 27 BPM Criteria for Anterolateral infarct are no longer Present Confirmed by Kirby Melchor ([id number]) on 07/04/2023 9:06:41 AM 25mm/s10mm/[id number] 243CID: 20Confirmed By: Kirby Melchor Vent. rate 50 BPM DE interval 162 ms QRS duration 126 ms QT/QTc 484/441 ms Code Status & VTE Plan Code Status Full code - discussed with pt at bedside Supervising Physician Co-Signing Physician Notes Attending addendum: The patient was seen and examined in emergency room She is morbidly obese and is presenting with chest pain and bloating all over with shortness of breath She has not been taking her usual medications for the last 3 days Denies any fever and or chills, denies any abdominal pain, nausea or vomiting Has more swelling of the legs On examination Lying in bed comfortably No shortness of breath at rest and has been saturating normally on 1 L Chest-decreased breath sounds bilaterally with occasional crackles at the bases Heart-distant heart sound, S1-S2 regular Abdomen-distended, soft, nontender bowel sound present Extremities-bilateral leg edema, chronic with lymphedema, leg ulceration on the left side CAR EXAMINER-alert, awake and oriented. Generally weak but moves all limbs Her admission labs, EKG and imaging studies reviewed Likely has DAHLIA on CKD with fluid overload and CHF Has been very noncompliant Received 40 mg of IV Lasix in the ER. We will get nephrology evaluation while in the hospital and echocardiogram to evaluate LV function Agree with assessment and plan as outlined above by Gayle Fernandez PAC Dr Joseph Conley (2) Hypertension Hypertension type: unspecified Qualified Code(s): I10 - Essential (primary) hypertension (7) Type 2 diabetes mellitus, with long-term current use of insulin Diabetes mellitus complication status: without complication Qualified Code(s): E11.9 - Type 2 diabetes mellitus without complications; Z79.4 - detention (current) use of insulin
[2023-07-04] MEDS ORDERED: FUROSEMIDE 40 MG/4 ML VIAL IV ONE (11:56)
[2023-07-04 13:02] LABS: Influenza A virus by PCR Negative (Neg); Influenza B virus by PCR Negative (Neg); RSV by PCR Negative (Neg); SARS CoV2 RNA(COVID-19) Ceph NEGATIVE (Negative)
[2023-07-04] MEDS ORDERED: GLUCOSE 40% GEL 15 GM TUBE PO PRN (15:34)
[2023-07-04] MEDS ORDERED: CARBOHYDRATES FOR HYPOGLYCEMIA PO PRN (15:34)
[2023-07-04] MEDS ORDERED: GLUCOSE 10 TAB/TUBE PO PRN (15:34)
[2023-07-04] MEDS ORDERED: GLUCAGON FOR INJ 1 MG VIAL SQ PRN (15:34)
[2023-07-04] MEDS ORDERED: DEXTROSE 50% 50 ML SYRINGE IV PRN (15:34)
[2023-07-04] MEDS ORDERED: hydrALAZINE TAB 50 MG TAB PO SCH (16:00)
[2023-07-04] MEDS: cefTRIAXone SODIUM 2,000 MG in DEXTROSE 5 % MINI-B 50 ML IV SCH (17:07)
[2023-07-04] MEDS: ASPIRIN 81 MG ECTAB PO SCH (17:08)
[2023-07-04] MEDS: FLUoxetine HCL 20 MG CAP PO SCH (17:08)
[2023-07-04] MEDS: METOPROLOL SUCC 25MG EXT REL TAB PO SCH (17:09)
[2023-07-04] MEDS: INSULIN ASPART PER UNIT CHARGE SC SCH ×3 (17:13→20:51)
--- NOTE | 2023-07-04 17:20 | Nephrology Consultation ---
Date of Consultation July 04, 2023 Assessment & Plan (1) Acute on chronic renal insufficiency: nonoliguric stage 1 DAHLIA on CKD 3 > baseline creatinine 1.4-1.5 most recently. prerenal versus ATN; cannot rule out glomerular process w/ volume overload. rapidly progressive ckd as below; now stage 3 after no CKD as recently as August 2022. c/b mild hyperkalemia -low K diet -daily bmp -intensify lasix as below (2) CKD (chronic kidney disease) stage 3, GFR 30-59 ml/min: She has rapidly progressive CKD >> prior to March 2023 creatinine was 0.8 (last lab check was February 2023); then in March during an admission she had DAHLIA w/ labile renal function ever since, 1.4-1.5 range. -Will need neph f/u after d/c -ordered prot/creat ratio (3) CHF (congestive heart failure): -started lasix 20 mg IV qid -1.5L FR -daily bmp -hold hydralazine which can worsen edema and not effective once daily in any event -note that high doses of gabapentin can also worsen edema > consider alternative pain mgt strategy if feasible History of Present Illness Reason for Consultation: DAHLIA on CKD and significant edema Requesting Physician: Dr Conley Attending Physician: Kyle Conley MD History of Present Illness 53 y/o F whom I'm asked to see for DAHLIA on CKD and BLE edema was admitted today for same in the setting of volume OL and uncontrolled DM. PMH of DM on insulin, CKD 3 baseline creatinine 1.3-1.5. also w/ HFpEF, class 3 obesity (BMI 55), remote necrotizing fasciitis, BLE lymphedema. She has rapidly progressive CKD >> prior to March 2023 creatinine was 0.8 (last lab check was February 2023); then in March during an admission she had DAHLIA w/ labile renal function ever since, creatinine 1.4-1.5 range. Pt w/ frequent hospital admissions to [facility] monthly since February often due in part to wounds and psychosocial needs. She is a [facility] resident. She personally called 911 today d/t dyspnea and w/ several episodes of chest pain. Per H&P, pt refused all her meds at facility yesterday except AM short acting insulin. She was admitted w/ concern for UTI, volume OL/chronic HFpEF, worsening renal function. She is being covered w/ ceftriaxone while blood and urine cultures are pending. She had one dose of 40 mg IV lasix. Pt tells me she notes marked edema and inability to ambulate d/t swelling. no sob or chest pain currently. endorses edema in her genitals, BLUE. no voiding concerns, no n/v/d. no new rash or f/c. Allergies Allergy/AdvReac Type Severity Reaction Status Date / Time No Known Allergies Allergy Unknown Verified 04/28/23 19:53 Home Medications Medication Instructions Recorded Confirmed Type aspirin 81 mg tablet,delayed 81 mg PO QAM 03/14/22 07/04/23 History release ferrous sulfate 325 mg (65 mg 325 mg PO DAILY 03/14/22 07/04/23 History iron) tablet furosemide 40 mg tablet (Lasix) 40 mg PO QAM 05/17/22 07/04/23 History insulin detemir U-100 100 unit/mL 27 unit subcut BID 05/17/22 07/04/23 History subcutaneous solution (Levemir U-100 Insulin) insulin lispro 100 unit/mL 10 unit subcut AC 05/17/22 07/04/23 History subcutaneous solution acetaminophen 500 mg tablet 1,000 mg PO Q6H PRN Pain 03/13/23 07/04/23 History (Tylenol Extra Strength) cyanocobalamin (vitamin B-12) 1,000 mcg PO DAILY 03/13/23 07/04/23 History 1,000 mcg tablet (Vitamin B-12) metoprolol succinate 25 mg 25 mg PO QAM 03/13/23 07/04/23 History tablet,extended release 24 hr gabapentin 600 mg tablet 600 mg PO BID #60 tabs 05/08/23 07/04/23 Rx fluoxetine 20 mg capsule (Prozac) 20 mg PO DAILY 07/04/23 07/04/23 History hydralazine 50 mg tablet 50 mg PO QAM 07/04/23 07/04/23 History melatonin 3 mg tablet 3 mg PO HS 07/04/23 07/04/23 History Patient History Medical History (Updated 07/04/23 @ 17:30 by Magdalena Kong MD, PhD) CKD (chronic kidney disease) stage 3, GFR 30-59 ml/min Cellulitis of left lower extremity Anemia Personal history of diabetic foot ulcer Loss of protective sensation of skin of foot Type 2 diabetes mellitus with complications Type 2 diabetes mellitus, with long-term current use of insulin Diabetic peripheral neuropathy associated with type 2 diabetes mellitus Diabetes type 2, uncontrolled Vitamin D deficiency Dyslipidemia Back pain Xerosis cutis Varicose veins of both lower extremities Obesity Insomnia Hirsutism Fatigue Dysfunctional uterine bleeding Depression with anxiety Tobacco use HTN (hypertension) History of DVT (deep vein thrombosis) Surgical History History of incision and drainage left foot by Dr. Haq on 10-03-19. H/O tooth extraction History of cholecystectomy History of facial surgery History of nasal polypectomy History of endometrial ablation History of tubal ligation History of hysterectomy History of Family History Father Dyslipidemia Prostate cancer Diabetes Lung cancer Mother Lung cancer Hypothyroidism Brother Coronary heart disease Asthma Grandfather (Maternal) Myocardial infarction Grandmother (Maternal) Myocardial infarction Grandmother (Paternal) Breast cancer Diabetes Social History Smoking Status: Former smoker Tobacco Type: Cigarettes Hx Alcohol Use: No Hx Substance Use: No Preferred Language: Hungarian Communication Ability: Effective Tuckpointer Required: No Beliefs That Will Affect Care: None marital status: Single Current Living Situation: Rehab Current Living Situation Comment: Patient lives alone. She has home health nurses. Feels Safe at Home: Yes Assistive Devices: Walker and Wheelchair Review of Systems 2 Review of Systems: All systems reviewed & are unremarkable except as noted in HPI & below Physical Exam 2 Constitutional: well developed, well nourished, + morbidly obese, + physical limitations (unable to roll in bed w/o effort) and cooperative; no acute distress Eyes: EOM intact bilaterally ENMT: Ears: no external ear abnormality Nose: no external nose abnormality Mouth: + dry oral mucous membranes Neck: no nuchal rigidity Respiratory: normal respiratory effort Auscultation: + diminished lung sounds Cardiovascular: Rate/Rhythm: regular rate (HS distant) and regular rhythm E xtremities: + edema (3+ BLE distally and 1-2+ proximally) Gastrointestinal (Abdomen): Inspection/Auscultation: normal bowel sounds P ercussion/Palpation: abdomen soft; abdomen nontender Musculoskeletal: Extremities: + abnormal strength Skin: no rashes, warm and dry Neurologic: jean baptiste, fluent speech, no tremor Psychiatric: Orientation: alert and oriented x 3 Results & Data Vital Signs (Past 12 Hours) Vital Signs Temp Pulse Pulse Resp BP BP Pulse Ox 07/04/23 16:45 52 L 07/04/23 15:38 36.5 C 52 L 18 151/73 H 100 07/04/23 13:47 07/04/23 12:35 100 07/04/23 12:32 58 L 12 171/76 H 98 07/04/23 11:45 51 L 07/04/23 10:00 58 L 16 157/84 H 07/04/23 08:19 50 L 07/04/23 08:12 100 07/04/23 08:12 36.4 C L 55 L 17 192/85 H 97 O2 Del Method O2 Flow Rate 07/04/23 16:45 07/04/23 15:38 Nasal Cannula 2 07/04/23 13:47 Room Air 07/04/23 12:35 Nasal Cannula 1 07/04/23 12:32 Nasal Cannula 1 07/04/23 11:45 07/04/23 10:00 Nasal Cannula 2 07/04/23 08:19 07/04/23 08:12 Nasal Cannula 2 07/04/23 08:12 Room Air 2 Laboratory Results 07/04/23 09:16 07/04/23 09:16 UA reviewed > not a clean catch Diagnostic Findings A/P CT in March non con w/ unremarkable kidneys/bladder
[2023-07-04 18:37] LABS: Appearance Urine Cloudy (Clear); Bacteria Urine Automated 4+ (Negative); Bilirubin Urine Negative (Negative); Blood Urine 1+ (Negative); Color Urine Yellow; Epithelial Cell Urine Auto 20-30 /lpf (0-5); Glucose Urine UA Negative (Negative); Ketones Urine Negative (Negative); Leukocyte Esterase Urine 2+ (Negative); Nitrite Urine Positive (Negative); Protein Urine 2+ (Negative); RBC Urine Automated 0-4 /hpf (0-4); Specific Gravity Urine 1.009 (1.000-1.030); Urobilinogen Urine Negative (Negative)
[2023-07-04 18:48] LABS: Total Protein Urine Random 68.9 mg/dl (0-11.9)
[2023-07-04 18:54] LABS: Creatinine Urine Random 27.4 mg/dl; Protein Creatinine Ratio Urine 2.5 (0-0.2)
[2023-07-04] MEDS: GABAPENTIN 600 MG TAB PO SCH (20:51)
[2023-07-04] MEDS: MELATONIN 3 MG TAB PO SCH (20:51)
[2023-07-04] MEDS: LANTUS PER UNIT CHARGE SQ SCH (20:58)
[2023-07-04] MEDS: FUROSEMIDE INJ 20 MG/2 ML VIAL IV SCH (20:58)
[2023-07-05 05:46] LABS: Hematocrit (blood only) 35.7 % (37.0-47.0); Hemoglobin 10.9 g/dl (12.0-16.0); Mean Corpuscular Hgb Conc 30.5 g/dL (32.0-36.0); Mean Corpuscular Volume 91.8 fL (80.0-100.0); Mean Platelet Volume 11.7 fL (9.4-12.4); Platelet Count 168 K/uL (130-400); RDW Coefficient of Variation 15.4 % (11.5-14.5); Red Blood Count 3.89 M/uL (4.20-5.40); White Blood Count 7.12 K/ul (4.8-10.8)
[2023-07-05] MEDS: FUROSEMIDE INJ 20 MG/2 ML VIAL IV SCH ×4 (06:35→18:55)
[2023-07-05 07:14] LABS: Calcium 8.6 mg/dl (8.6-10.3); Magnesium 2.3 mg/dl (1.7-2.4); Potassium 5.1 mmol/L (3.5-5.1)
[2023-07-05 07:19] LABS: Creatinine Clr Calc Pharmacy 64.7 ml/min; Est GFR (African American) 39.5 ml/min; Est GFR (Non-African American) 34.1 ml/min
[2023-07-05] MEDS ORDERED: PNEUMOCOCCAL VACCINE (PCV20) 20-VAL CONJ-DIP CRM/PF 0.5 ML SYR IM ONE (08:00)
[2023-07-05] MEDS: INSULIN ASPART PER UNIT CHARGE SC SCH ×4 (09:41→20:58)
[2023-07-05] MEDS: LANTUS PER UNIT CHARGE SQ SCH ×2 (09:41→22:27)
[2023-07-05] MEDS: METOPROLOL SUCC 25MG EXT REL TAB PO SCH (09:42)
[2023-07-05] MEDS: ASPIRIN 81 MG ECTAB PO SCH (09:42)
[2023-07-05] MEDS: CYANOCOBALAMIN (B-12) 500 MCG TABLET PO SCH (09:42)
[2023-07-05] MEDS: FERROUS SULFATE 325 MG TAB PO SCH (09:42)
[2023-07-05] MEDS: FLUoxetine HCL 20 MG CAP PO SCH (09:43)
[2023-07-05] MEDS: GABAPENTIN 600 MG TAB PO SCH ×2 (09:43→22:27)
[2023-07-05] MEDS ORDERED: SENNA 8.6 MG TAB PO PRN (10:10)
[2023-07-05] MEDS: ACETAMINOPHEN 325 MG TAB PO PRN (10:22)
[2023-07-05] MEDS ORDERED: MICONAZOLE NITRATE POWDER 85 GM EXT PRN (10:33)
--- NOTE | 2023-07-05 12:46 | Nephrology Progress Note ---
Date of Service July 05, 2023 Assessment & Plan (1) Acute on chronic renal insufficiency: Plan: nonoliguric stage 1 DAHLIA on CKD 3 > baseline creatinine 1.4-1.5 most recently. prerenal versus ATN; cannot rule out glomerular process w/ volume overload. rapidly progressive ckd as below; now stage 3 after no CKD as recently as August 2022. - Cr improving -Continue on low K diet -daily bmp -Continue lasix as below (2) CKD (chronic kidney disease) stage 3, GFR 30-59 ml/min: Plan: She has rapidly progressive CKD >> prior to March 2023 creatinine was 0.8 (last lab check was February 2023); then in March during an admission she had DAHLIA w/ labile renal function ever since, 1.4-1.5 range. -Will need neph f/u after d/c -ordered prot/creat ratio (3) CHF (congestive heart failure): Plan: -started lasix 20 mg IV qid-- continue -1.5L FR -daily bmp -hold hydralazine which can worsen edema and not effective once daily in any event -note that high doses of gabapentin can also worsen edema > consider alternative pain mgt strategy if feasible Admission and Anticipated Discharge Date Admission Date: July 04, 2023 Subjective No new complains 2-3 + Edema bilaterally. Review of Systems 2 Review of Systems: All systems reviewed & are unremarkable except as noted in HPI & below Physical Exam 2 Physical Exam: Constitutional: well developed, we ll nourished, + mo rbidly obese, + ph ysical limitations (unable to roll i n bed w/o effort) and cooperative; n o acute distress Eyes: EOM intact bilater ally ENMT: Ears: no external ear abnormality N ose: no external n ose abnormality M outh: + dry oral m ucous membranes Neck: no nuchal rigidity Respiratory: normal respiratory effort Auscultat ion: + diminished lung sounds Cardiovascular: Rate/Rhythm: regul ar rate (HS distan t) and regular rhy thm Extremities: + edema (3+ BLE di stally and 1-2+ pr oximally) Gastrointestinal ( Abdomen): Inspection/Auscult ation: normal uriel l sounds Percussi on/Palpation: abdo men soft; abdomen nontender Musculoskeletal: Extremities: + abn ormal strength Skin: no rashes, warm an d dry Neurologic: jean baptiste, fluent speec h, no tremor Results & Data Vital Signs (Past 12 Hours) Vital Signs Temp Pulse Pulse Resp BP Pulse Ox O2 Del Method 07/05/23 11:40 97 Nasal Cannula 07/05/23 11:39 36.6 C 56 L 18 88 L Room Air 07/05/23 07:48 36.4 C L 47 L 20 148/77 H 98 Nasal Cannula 07/05/23 07:39 46 L 07/05/23 03:20 36.9 C 47 L 16 175/75 H 97 Nasal Cannula O2 Flow Rate 07/05/23 11:40 2 07/05/23 11:39 07/05/23 07:48 2 07/05/23 07:39 07/05/23 03:20 2 Laboratory Results 07/05/23 05:26 07/05/23 05:26
[2023-07-05] MEDS: cefTRIAXone SODIUM 2,000 MG in DEXTROSE 5 % MINI-B 50 ML IV SCH (16:37)
--- NOTE | 2023-07-05 17:09 | Hospitalist Progress Note ---
Date of Service July 05, 2023 Assessment & Plan (1) CHF (congestive heart failure): (2) Hypertension: (3) Diabetic ulcer of foot associated with type 2 diabetes mellitus, with bone involvement without evidence of necrosis: (4) Lymphedema of both lower extremities: (5) Anemia: (6) UTI (urinary tract infection): (7) Type 2 diabetes mellitus, with long-term current use of insulin: (8) Diabetic peripheral neuropathy associated with type 2 diabetes mellitus: (9) Obesity: Plan: 53-year-old male with PMH of insulin-dependent T2DM, diabetic neuropathy, diabetic nephropathy with CKD stage III, HTN, HLD, HFpEF, morbid obesity, necrotizing fasciitis, bilateral lower extremity lymphedema, TRACI, left chronic heel ulcer presented to the ED for generalized swelling/increased edema of BLE and not feeling well. She is being managed for the following Acute exacerbation of heart failure with preserved ejection fraction Volume overload Came in with generalized swelling/fluid retention. Upon chart review, patient's weight of 146 kg on 05/08/2023, presenting weight at 176.6 kg on 07/04/2023. Admitting CXR with pulmonary vascular congestion, at admission : 2-3+ pitting edema BLE along with her chronic lymphedema and UE pitting edema noted. Patient's home Lasix was increased from 20mg to 40 mg the day prior to [facility] at the [facility]. Troponin flat trended in 70s. Patient with no chest pain. Admitting EKG with no acute ST or T changes. Echo with EF of 55 to 60%, grade 1 diastolic dysfunction, no LV segmental wall motion abnormalities, flattened septum consistent with RV pressure/volume overload. Metoprolol on hold due to bradycardia. Hydralazine dc'd as it can worsen edema Nephrology on board for volume overload/DAHLIA over CKD, managing diuresis. We will consult cardiology for acute on chronic heart failure Daily weights. Strict I's and O's, monitor and replete electrolytes as appropriate. Labs in AM. Acute kidney injury over CKD stage III: Admitting creatinine of 1.81, baseline creatinine around 1.4. Nephrology on board, managing diuresis. Acute UTI: Patient started on Rocephin 07/04, continue, follow urine and blood culture. Other chronic medical conditions: Iron deficiency anemia: Baseline hemoglobin around 10, stable, continue home iron supplementation HTN/HLD: Continue with home medications Insulin-dependent T2DM: Complicated with nephropathy and neuropathy. A1c of 10.1% on 04/28/2023. Sliding scale insulin while in hospital. Was taken off of Ozempic about 1 month ago as it was assumed that this was causing nausea for the patient. senior health educator consult for uncontrolled diabetes. Diabetic neuropathy: Continue home gabapentin. Morbid obesity: Encourage diet/lifestyle modification with exercise DVT prophylaxis: Heparin subcu Full code Disposition: PT/OT, CM to assist with DC plan. Admission and Anticipated Discharge Date Admission Date: July 04, 2023 Subjective Patient was seen and examined at bedside. Patient was lying in bed, on room air, NAD, reports generalized swelling, denies any new acute event overnight. Denies any chest pain or shortness of breath or palpitation no headache or dizziness. Reports eating okay and moving bowels okay. Reports drinking a lot of fluid. Patient advised that we will be instituting fluid restriction along with diuresis in the hospital. Patient agreeable. Physical Exam Physical Exam: GENERAL: Alert and oriented x3. NAD, on RA. Obesity Class III. HEENT: No pallor, no icterus. Pupils equal, round and reactive to light. Oral mucosa moist. NECK: No JVD, no neck masses. HEART: S1 and S2 heard. Regular rate and rhythm. No murmur, no gallop. RESPIRATORY SYSTEM: Normal AP diameter. No accessory muscle use. No wheezing, decreased breath sounds b/l. ABDOMEN: Soft, bowel sounds present, nontender, no distention. CENTRAL NERVOUS SYSTEM: No facial droop. Speech is clear. Obeys simple commands. Moves extremities. EXTREMITIES: 2-3+ ble pitting edema. + left heel wound w/ dressing c/d/i. No surrounding erythema noted. Results & Data Results & Data Vital Signs (Past 12 Hours) Vital Signs Temp Pulse Pulse Resp BP Pulse Ox O2 Del Method 07/05/23 15:28 47 L 07/05/23 15:22 36.2 C L 47 L 16 143/77 H 98 Nasal Cannula 07/05/23 11:40 97 Nasal Cannula 07/05/23 11:39 36.6 C 56 L 18 88 L Room Air 07/05/23 09:45 Nasal Cannula 07/05/23 07:48 36.4 C L 47 L 20 148/77 H 98 Nasal Cannula 07/05/23 07:39 46 L O2 Flow Rate 07/05/23 15:28 07/05/23 15:22 2 07/05/23 11:40 2 07/05/23 11:39 07/05/23 09:45 2 07/05/23 07:48 2 07/05/23 07:39 (2) Hypertension Hypertension type: unspecified Qualified Code(s): I10 - Essential (primary) hypertension (7) Type 2 diabetes mellitus, with long-term current use of insulin Diabetes mellitus complication status: without complication Qualified Code(s): E11.9 - Type 2 diabetes mellitus without complications; Z79.4 - terminal carman (current) use of insulin
[2023-07-05] MEDS: MELATONIN 3 MG TAB PO SCH (22:27)
[2023-07-06] MEDS: FUROSEMIDE INJ 20 MG/2 ML VIAL IV SCH ×2 (06:35→12:09)
[2023-07-06] MEDS: LANTUS PER UNIT CHARGE SQ SCH ×2 (09:25→21:52)
[2023-07-06] MEDS: INSULIN ASPART PER UNIT CHARGE SC SCH ×4 (09:25→21:52)
[2023-07-06] MEDS: FERROUS SULFATE 325 MG TAB PO SCH (09:41)
[2023-07-06] MEDS: GABAPENTIN 600 MG TAB PO SCH ×2 (09:41→20:36)
[2023-07-06] MEDS: METOPROLOL SUCC 25MG EXT REL TAB PO SCH (09:42)
[2023-07-06] MEDS: FLUoxetine HCL 20 MG CAP PO SCH (09:43)
[2023-07-06] MEDS: CYANOCOBALAMIN (B-12) 500 MCG TABLET PO SCH (09:43)
[2023-07-06] MEDS: ASPIRIN 81 MG ECTAB PO SCH (09:43)
[2023-07-06 10:33] LABS: Hematocrit (blood only) 37.1 % (37.0-47.0); Hemoglobin 11.2 g/dl (12.0-16.0); Mean Corpuscular Hemoglobin 27.7 pg (25.0-34.0); Mean Corpuscular Hgb Conc 30.2 g/dL (32.0-36.0); Mean Corpuscular Volume 91.6 fL (80.0-100.0); Mean Platelet Volume 12.2 fL (9.4-12.4); Platelet Count 181 K/uL (130-400); RDW Coefficient of Variation 15.3 % (11.5-14.5); RDW Standard Deviation 50.6 fL (36.4-46.3); Red Blood Count 4.05 M/uL (4.20-5.40); White Blood Count 6.89 K/ul (4.8-10.8)
[2023-07-06 10:51] LABS: BUN Creatinine Ratio 38.7 (10-20); Calcium 8.6 mg/dl (8.6-10.3); Creatinine Clr Calc Pharmacy 79.3 ml/min; Est GFR (African American) 50.6 ml/min; Est GFR (Non-African American) 43.6 ml/min; Magnesium 2.2 mg/dl (1.7-2.4); Phosphorus 4.4 mg/dl (2.5-4.9); Potassium 4.8 mmol/L (3.5-5.1)
--- NOTE | 2023-07-06 11:44 | Cardiology Consultation ---
Date of Consultation July 06, 2023 Assessment & Plan (1) Acute on chronic heart failure with preserved ejection fraction (HFpEF): Plan This is a 53 year old female with a PMHx significant for insulin-dependent T2DM, diabetic neuropathy, diabetic nephropathy with CKD stage III, HTN, HLD, chronic HFpEF, morbid obesity, history necrotizing fasciitis, bilateral lower extremity lymphedema, iron deficiency anemia and left chronic heel ulcer who presented to the ED for worsening shortness of breath and lower extremity edema. She tells me that she has not been able to walk since gaining so much fluid. No N/V/GUO; afebrile. (+) orthopnea. Denies chest pain. 1. Acute on Chronic HFpEF -massively volume overloaded -TTE shows RV dysfunction and D-shaped septum likely 2/2 chronically elevated left sided filling pressures as well as probable YVROSE -change lasix to higher doses -200mg IV lasix now and start gtt at 20mg/hr -plan to add 25mg of aldactone and Jardiance 10mg qday starting tomorrow -recommend sleep study I provided 85 min of care to the patient in regards to her acute on chronic HFpEF. We discussed the management of HFpEF. History of Present Illness Reason for Consultation: Acute on Chronic HFpEF. Attending Physician: Kenroy Danielle MD History of Present Illness This is a 53 year old female with a PMHx significant for insulin-dependent T2DM, diabetic neuropathy, diabetic nephropathy with CKD stage III, HTN, HLD, chronic HFpEF, morbid obesity, history necrotizing fasciitis, bilateral lower extremity lymphedema, iron deficiency anemia and left chronic heel ulcer who presented to the ED for worsening shortness of breath and lower extremity edema. She tells me that she has not been able to walk since gaining so much fluid. No N/V/GUO; afebrile. (+) orthopnea. Denies chest pain. Allergies Allergy/AdvReac Type Severity Reaction Status Date / Time No Known Allergies Allergy Unknown Verified 04/28/23 19:53 Home Medications Medication Instructions Recorded Confirmed Type aspirin 81 mg tablet,delayed 81 mg PO QAM 03/14/22 07/04/23 History release ferrous sulfate 325 mg (65 mg 325 mg PO DAILY 03/14/22 07/04/23 History iron) tablet furosemide 40 mg tablet (Lasix) 40 mg PO QAM 05/17/22 07/04/23 History insulin detemir U-100 100 unit/mL 27 unit subcut BID 05/17/22 07/04/23 History subcutaneous solution (Levemir U-100 Insulin) insulin lispro 100 unit/mL 10 unit subcut AC 05/17/22 07/04/23 History subcutaneous solution acetaminophen 500 mg tablet 1,000 mg PO Q6H PRN Pain 03/13/23 07/04/23 History (Tylenol Extra Strength) cyanocobalamin (vitamin B-12) 1,000 mcg PO DAILY 03/13/23 07/04/23 History 1,000 mcg tablet (Vitamin B-12) metoprolol succinate 25 mg 25 mg PO QAM 03/13/23 07/04/23 History tablet,extended release 24 hr gabapentin 600 mg tablet 600 mg PO BID #60 tabs 05/08/23 07/04/23 Rx fluoxetine 20 mg capsule (Prozac) 20 mg PO DAILY 07/04/23 07/04/23 History hydralazine 50 mg tablet 50 mg PO QAM 07/04/23 07/04/23 History melatonin 3 mg tablet 3 mg PO HS 07/04/23 07/04/23 History Patient History Medical History CKD (chronic kidney disease) stage 3, GFR 30-59 ml/min Cellulitis of left lower extremity Anemia Personal history of diabetic foot ulcer Loss of protective sensation of skin of foot Type 2 diabetes mellitus with complications Type 2 diabetes mellitus, with long-term current use of insulin Diabetic peripheral neuropathy associated with type 2 diabetes mellitus Diabetes type 2, uncontrolled Vitamin D deficiency Dyslipidemia Back pain Xerosis cutis Varicose veins of both lower extremities Obesity Insomnia Hirsutism Fatigue Dysfunctional uterine bleeding Depression with anxiety Tobacco use HTN (hypertension) History of DVT (deep vein thrombosis) Surgical History History of incision and drainage left foot by Dr. Haq on 10-03-19. H/O tooth extraction History of cholecystectomy History of facial surgery History of nasal polypectomy History of endometrial ablation History of tubal ligation History of hysterectomy History of Family History Father Dyslipidemia Prostate cancer Diabetes Lung cancer Mother Lung cancer Hypothyroidism Brother Coronary heart disease Asthma Grandfather (Maternal) Myocardial infarction Grandmother (Maternal) Myocardial infarction Grandmother (Paternal) Breast cancer Diabetes Social History Smoking Status: Former smoker Tobacco Type: Cigarettes Hx Alcohol Use: No Hx Substance Use: No Preferred Language: Portuguese Communication Ability: Effective Field Service Coordinator Required: No Beliefs That Will Affect Care: None marital status: Single Current Living Situation: Rehab Current Living Situation Comment: Patient lives alone. She has home health nurses. Feels Safe at Home: Yes Assistive Devices: Walker Review of Systems Review of Systems: A comprehensive review of systems is otherwise negative unless noted above. Physical Exam Physical Exam: GEN: AAOx3; NAD; Obese HEENT: cannot assess JVD 2/2 body habitus CV: RRR; S1+S2; no M/R/G PULM: decreased breath sounds diffusely ABD: soft; NTND EXT: 2+ edema from ankles to proximal thighs. Lichenification of lower extremity skin due to chronic volume overload/venous insufficiency Results & Data Vital Signs (Past 12 Hours) Vital Signs Temp Pulse Resp BP Pulse Ox O2 Del Method O2 Flow Rate 07/06/23 08:09 36.3 C L 45 L 18 131/71 98 Nasal Cannula 2 07/06/23 04:02 36.6 C 47 L 16 141/64 H 98 Nasal Cannula 2 07/05/23 23:55 36.9 C 54 L 16 144/73 H 97 Nasal Cannula 2 Results BMP Results: Sodium 141 mmol/L (136-145) 07/06/23 Potassium 4.8 mmol/L (3.5-5.1) 07/06/23 Chloride 107 mmol/L (98-107) 07/06/23 Carbon Dioxide 32 mmol/L (21-32) 07/06/23 Anion Gap 2 (3-11) L 07/06/23 BUN 53 mg/dl (6-23) H 07/06/23 Creatinine 1.37 mg/dl (0.6-1.2) H 07/06/23 Glucose 103 mg/dl (70-99(Fasting)) H 07/06/23 Results Complete Blood Count Results: RBC 4.05 M/uL (4.20-5.40) L 07/06/23 WBC 6.89 K/ul (4.8-10.8) 07/06/23 Hgb 11.2 g/dl (12.0-16.0) L 07/06/23 Hct 37.1 % (37.0-47.0) 07/06/23 Plt Count 181 K/uL (130-400) 07/06/23
--- NOTE | 2023-07-06 11:45 | Nephrology Progress Note ---
Date of Service July 06, 2023 Assessment & Plan (1) Acute on chronic renal insufficiency: Plan: nonoliguric stage 1 DAHLIA on CKD 3 > baseline creatinine 1.4-1.5 most recently. prerenal versus ATN; cannot rule out glomerular process w/ volume overload. rapidly progressive ckd as below; now stage 3 after no CKD as recently as August 2022. - Cr improving -Continue on low K diet -daily bmp -Continue lasix as below (2) CKD (chronic kidney disease) stage 3, GFR 30-59 ml/min: Plan: She has rapidly progressive CKD >> prior to March 2023 creatinine was 0.8 (last lab check was February 2023); then in March during an admission she had DAHLIA w/ labile renal function ever since, 1.4-1.5 range. -Will need neph f/u after d/c -ordered prot/creat ratio (3) CHF (congestive heart failure): Plan: -Continue on lasix 20 mg IV qid-- continue -1.5L FR -daily bmp -hold hydralazine which can worsen edema and not effective once daily in any event -note that high doses of gabapentin can also worsen edema > consider alternative pain mgt strategy if feasible Admission and Anticipated Discharge Date Admission Date: July 04, 2023 Subjective Patient was lying in bed, on 2L 02 , Comfortable Review of Systems 2 Review of Systems: All systems reviewed & are unremarkable except as noted in HPI & below Physical Exam 2 Physical Exam: Constitutional: well developed, we ll nourished, + mo rbidly obese, + ph ysical limitations (unable to roll i n bed w/o effort) and cooperative; n o acute distress Eyes: EOM intact bilater ally ENMT: Ears: no external ear abnormality N ose: no external n ose abnormality M outh: + dry oral m ucous membranes Neck: no nuchal rigidity Respiratory: normal respiratory effort Auscultat ion: + diminished lung sounds Cardiovascular: Rate/Rhythm: regul ar rate (HS distan t) and regular rhy thm Extremities: + edema (3+ BLE di stally and 1-2+ pr oximally) Gastrointestinal ( Abdomen): Inspection/Auscult ation: normal uriel l sounds Percussi on/Palpation: abdo men soft; abdomen nontender Musculoskeletal: Extremities: + abn ormal strength Skin: no rashes, warm an d dry Neurologic: jean baptiste, fluent speec h, no tremor Results & Data Vital Signs (Past 12 Hours) Vital Signs Temp Pulse Resp BP Pulse Ox O2 Del Method O2 Flow Rate 07/06/23 08:09 36.3 C L 45 L 18 131/71 98 Nasal Cannula 2 07/06/23 04:02 36.6 C 47 L 16 141/64 H 98 Nasal Cannula 2 07/05/23 23:55 36.9 C 54 L 16 144/73 H 97 Nasal Cannula 2 Laboratory Results 07/06/23 10:03 07/06/23 10:03
[2023-07-06] MEDS ORDERED: FUROSEMIDE 40 MG/4 ML VIAL IV STA (11:54)
[2023-07-06] MEDS ORDERED: FUROSEMIDE 200 MG in SODIUM CHLORIDE 0.9% 50 ML IV STA (12:06)
[2023-07-06] MEDS: FUROSEMIDE 100 MG in 0.9 % SODIUM CHLORIDE 90 ML IV SCH ×2 (14:59→20:35)
[2023-07-06] MEDS ORDERED: VANCOMYCIN CONSULT ACTIVE PRN (15:10)
--- NOTE | 2023-07-06 15:18 | Hospitalist Progress Note ---
Date of Service July 06, 2023 Assessment & Plan (1) CHF (congestive heart failure): (2) Hypertension: (3) Diabetic ulcer of foot associated with type 2 diabetes mellitus, with bone involvement without evidence of necrosis: (4) Lymphedema of both lower extremities: (5) Anemia: (6) UTI (urinary tract infection): (7) Type 2 diabetes mellitus, with long-term current use of insulin: (8) Diabetic peripheral neuropathy associated with type 2 diabetes mellitus: (9) Obesity: Plan: 53-year-old male with PMH of insulin-dependent T2DM, diabetic neuropathy, diabetic nephropathy with CKD stage III, HTN, HLD, HFpEF, morbid obesity, necrotizing fasciitis, bilateral lower extremity lymphedema, TRACI, left chronic heel ulcer presented to the ED for generalized swelling/increased edema of BLE and not feeling well. She is being managed for the following Acute exacerbation of heart failure with preserved ejection fraction Volume overload Came in with generalized swelling/fluid retention. Upon chart review, patient's weight of 146 kg on 05/08/2023, presenting weight at 176.6 kg on 07/04/2023. Admitting CXR with pulmonary vascular congestion, at admission : 2-3+ pitting edema BLE along with her chronic lymphedema and UE pitting edema noted. Patient's home Lasix was increased from 20mg to 40 mg the day prior to arrival at the SNF. Troponin flat trended in 70s. Patient with no chest pain. Admitting EKG with no acute ST or T changes. Echo with EF of 55 to 60%, grade 1 diastolic dysfunction, no LV segmental wall motion abnormalities, flattened septum consistent with RV pressure/volume overload. Metoprolol on hold due to bradycardia. Hydralazine dc'd as it can worsen edema Nephrology on board for volume overload/DAHLIA over CKD. Cardio on board for ac chf, appreciate recs. Daily weights. Strict I's and O's, monitor and replete electrolytes as appropriate. Labs in AM. Sleep study as OP. Acute kidney injury over CKD stage III: Admitting creatinine of 1.81, baseline creatinine around 1.4. Nephrology on board, appreciate recs. Cr today 1.37. labs in am. Acute UTI: Patient started on Rocephin 07/04, continue, follow urine and blood culture. LLE Cellulitis: Left lat leg w/ erythema/ drainage today. wound culture. wound care consult. add vanc 07/06. Other chronic medical conditions: Iron deficiency anemia: Baseline hemoglobin around 10, stable, continue home iron supplementation HTN/HLD: Continue with home medications Insulin-dependent T2DM: Complicated with nephropathy and neuropathy. A1c of 10.1% on 04/28/2023. Sliding scale insulin while in hospital. Was taken off of Ozempic about 1 month ago as it was assumed that this was causing nausea for the patient. primary special educator consult for uncontrolled diabetes. Diabetic neuropathy: Continue home gabapentin. Morbid obesity: Encourage diet/lifestyle modification with exercise DVT prophylaxis: Heparin subcu Full code Disposition: PT/OT, CM to assist with DC plan. Admission and Anticipated Discharge Date Admission Date: July 04, 2023 Subjective Patient was seen and examined at bedside. Patient was lying in bed, on room air, NAD, reports generalized swelling, denies any new acute event overnight. Denies any chest pain or shortness of breath or palpitation or headache or dizziness. Reports eating okay and moving bowels okay. Patient reports lateral left leg pain, today with drainage. Physical Exam Physical Exam: GENERAL: Alert and oriented x3. NAD, on RA. Obesity Class III. HEENT: No pallor, no icterus. Pupils equal, round and reactive to light. Oral mucosa moist. NECK: No JVD, no neck masses. HEART: S1 and S2 heard. Regular rate and rhythm. No murmur, no gallop. RESPIRATORY SYSTEM: Normal AP diameter. No accessory muscle use. No wheezing, decreased breath sounds b/l. ABDOMEN: Soft, bowel sounds present, nontender, no distention. CENTRAL NERVOUS SYSTEM: No facial droop. Speech is clear. Obeys simple comm ands. Moves extremities. EXTREMITIES: 2-3+ ble pitting edema. + left heel wound w/ dressing c/d/i. No surrounding erythema noted. Left lat leg w/ erythema and drainage. Results & Data Results & Data Vital Signs (Past 12 Hours) Vital Signs Temp Pulse Resp BP Pulse Ox O2 Del Method O2 Flow Rate 07/06/23 11:44 36.6 C 46 L 20 161/79 H 98 Nasal Cannula 2 07/06/23 08:09 36.3 C L 45 L 18 131/71 98 Nasal Cannula 2 07/06/23 08:00 Nasal Cannula 2 11/19/23 04:02 36.6 C 47 L 16 141/64 H 98 Nasal Cannula 2 (2) Hypertension Hypertension type: unspecified Qualified Code(s): I10 - Essential (primary) hypertension (7) Type 2 diabetes mellitus, with long-term current use of insulin Diabetes mellitus complication status: without complication Qualified Code(s): E11.9 - Type 2 diabetes mellitus without complications; Z79.4 - senior informatica developer (current) use of insulin
[2023-07-06] MEDS ORDERED: VANCOMYCIN HCL 2,750 MG in SODIUM CHLORIDE 0.9% 500 ML IV SCH (16:00)
[2023-07-06] MEDS: cefTRIAXone SODIUM 2,000 MG in DEXTROSE 5 % MINI-B 50 ML IV SCH (16:36)
--- NOTE | 2023-07-06 16:53 | Pharmacy Report ---
Pharmacy PK ABX Note - Date of Service July 06, 2023 - Assessment and Plan Assessment 53 year old F receiving vancomycin and ceftriaxone for treatment of SSTI and UTI. Pertinent microbiologic data includes: urine culture growing klebsiella pneumoniae. Given BMI and concern for accumulation and toxicity, would consider alternative therapy going forward such as daptomycin. Day # 1 of vancomycin therapy. Plan Vancomycin * Loading dose: 2750 mg IV x 1 * Maintenance dose: 750 mg IV every 12 hours starting tomorrow * Regimen is predicted to achieve target AUC/TRISTON of 400-600 mg/L.hr * Random level ordered for: should be ordered in next 24-28 hours if therapy to continue Pharmacy will continue to follow and will adjust dose/frequency as necessary. Thank you. Pharmacy has transitioned to AUC monitoring for vancomycin. AUC/TRISTON is the preferred PK/PD target and is associated with decreased risk of nephrotoxicity compared to traditional trough targets.
[2023-07-06] MEDS: DAPTOmycin 450 MG in SYRINGE 0 ML IV SCH (18:41)
[2023-07-06] MEDS: ACETAMINOPHEN 325 MG TAB PO PRN (20:36)
[2023-07-06] MEDS: MELATONIN 3 MG TAB PO SCH (20:36)
[2023-07-07] MEDS: FUROSEMIDE 100 MG in 0.9 % SODIUM CHLORIDE 90 ML IV SCH ×6 (01:45→23:33)
[2023-07-07] MEDS ORDERED: VANCOMYCIN HCL 750 MG in SODIUM CHLORIDE 0.9% 250 ML IV SCH (05:00)
[2023-07-07 06:10] LABS: BUN Creatinine Ratio 35.9 (10-20); Calcium 8.8 mg/dl (8.6-10.3); Creatinine Clr Calc Pharmacy 74.9 ml/min; Est GFR (African American) 47.2 ml/min; Est GFR (Non-African American) 40.7 ml/min; Potassium 4.5 mmol/L (3.5-5.1)
--- NOTE | 2023-07-07 08:28 | Cardiology Progress Note ---
Date of Service July 07, 2023 Assessment & Plan (1) Acute on chronic heart failure with preserved ejection fraction (HFpEF): (2) Right heart failure: Plan This is a 53 year old female with a PMHx significant for insulin-dependent T2DM, diabetic neuropathy, diabetic nephropathy with CKD stage III, HTN, HLD, chronic HFpEF, morbid obesity, history necrotizing fasciitis, bilateral lower extremity lymphedema, iron deficiency anemia and left chronic heel ulcer who presented to the ED for worsening shortness of breath and lower extremity edema. She tells me that she has not been able to walk since gaining so much fluid. No N/V/GUO; afebrile. (+) orthopnea. Denies chest pain. 1. Acute on Chronic HFpEF -Patient remains markedly volume overloaded. Good diuresis over night. Continue Lasix gtt at 20mg/hr-- appreciate nephrology input -Start Aldactone 12.5 mg daily-- monitor potassium with daily BMPs -Consideration to add Jardiance 10mg qday pending clinical course -TTE shows RV dysfunction and D-shaped septum likely 2/2 chronically elevated left sided filling pressures as well as probable YVROSE, recommend nocturnal pulse ox study prior to discharge. -Hold beta andrea due to bradycardia and RHF. -Strict I&O, 2g sodium diet, +1500 mL fluid restriction -CHF education Case discussed with Dr. Pack- will follow. I spent a total of 40 minutes on the date of service in preparation, delivery, and documentation of the care provided to this patient, excluding any time spent in the performance of separately billed services. Admission and Anticipated Discharge Date Admission Date: July 04, 2023 Supervising Physician Co-Signing Physician Notes Supervising Physician Attestation: I have personally performed a history and physical examination on the patient. I agree with the physician psychology assistant's findings and plan as documented with the following additions. Subjective: Patient sitting in bedside chair, Krishna catheter in place draining clear yellow urine. No acute complaints. Telemetry reveals sinus rhythm in the 60s. Exam: Cardiovascular: Distant heart sounds due to body habitus, no murmur, 2+ lower extremity edema from ankles to proximal thighs with skin findings suggestive of chronic volume overload/venous insufficiency Data: Potassium 4.5, creatinine 1.45 Assessment and Plan: Heart failure with preserved ejection fraction, right heart failure -Continue IV diuretic treatment with furosemide infusion 20 mg/h. Spironolactone 12.5 mg daily added. Follow electrolytes and replace as indicated. DVT prophylaxis: Subcutaneous heparin 5000 units subcutaneously every 8 hours I spent a total of 20 minutes on the date of service in preparation, delivery, and documentation of the care provided to this patient, excluding any time spent in the performance of separately billed services. Jayce Pack, DO Subjective 53-year-old female who initially presented to [facility] emergency department due to worsening shortness of breath and lower extremity edema. Found to be in extremely hypervolemic in acute on chronic diastolic CHF. Echocardiogram revealed preserved LV systolic function of 55 to 60% with grade 1 diastolic dysfunction and no wall motion abnormalities. Severe RV dysfunction with a D-shaped septum as well as severe TR with moderate pulmonary hypertension with a PASP of 52 mmHg. 07/06/2023: Massively volume overloaded -- 200 mg of IV Lasix given and Lasix drip started at 20 mg/hr Metoprolol held due to bradycardia. Nephrology consulted for DAHLIA/CKD. Baseline creatinine around 1.4, admitting creatinine 1.8. Hydralazine and gabapentin held-due to concerns for worsening edema. Rocephin started on 07/04 for UTI Lower extremity cellulitis-- Wound culture obtained. Vanco started. 07/07/2023: Upon entrance into the room patient resting in bed. Patient remains markedly hypervolemic but responding well to Lasix gtt. Has a krishna. Ongoing shortness of breath and orthopnea. Pitting edema up to the thighs as well as the abdomen/pre-sacreal region. Requiring supplemental o2. Notes that she does snore and wakes herself by coughing in the middle of the night. No chest pain or palpations. No lightheadedness. I&O: -6.9L Weight: 176.6>>168.2 kg Labs: Serum creatinine stabilized with the last 2 readings of 1.37 and 1.45. Potassium and magnesium within normal limits. Review of Systems Review of Systems: All systems reviewed & are unremarkable except as noted in HPI & below Physical Exam Constitutional: WD/WN, vitals as above + ill appearing and + obese; no acute distress Respiratory: normal respiratory effort and + cough Auscultation: + rales and + rhonchi; no wheezes Cardiovascular: Rate/Rhythm: regular rate and regular rhythm Heart Sounds: normal S1 (distant heart sounds ) and normal S2 Vessels: + JVD Extremities: + edema (+4 BLLE pitting edema to thighs, abdomen, and pre-sacral region ) Gastrointestinal (Abdomen): Inspection/Auscultation: + abdomen distended and + abdominal edema Psychiatric: A+Ox3, euthymic affect Results & Data Vital Signs (Past 12 Hours) Vital Signs Temp Pulse Pulse Resp BP Pulse Ox O2 Del Method 07/07/23 07:34 36.5 C 48 L 16 124/66 98 Nasal Cannula 07/07/23 03:36 36.5 C 49 L 16 141/73 H 97 Nasal Cannula 07/06/23 23:05 Nasal Cannula 07/06/23 22:57 36.6 C 60 18 151/77 H 94 Nasal Cannula 07/06/23 22:20 57 L O2 Flow Rate 07/07/23 07:34 2 07/07/23 03:36 2 07/06/23 23:05 2 07/06/23 22:57 2 07/06/23 22:20 Laboratory Results CBC 07/06/23 Range/Units 10:03 WBC 6.89 (4.8-10.8) K/ul RBC 4.05 L (4.20-5.40) M/uL Hgb 11.2 L (12.0-16.0) g/dl Hct 37.1 (37.0-47.0) % Plt Count 181 (130-400) K/uL Comprehensive Metabolic Panel 07/06/23 07/07/23 Range/Units 10:03 05:43 Sodium 141 143 (136-145) mmol/L Potassium 4.8 4.5 (3.5-5.1) mmol/L Chloride 107 106 (98-107) mmol/L Carbon Dioxide 32 35 H (21-32) mmol/L BUN 53 H 52 H (6-23) mg/dl Creatinine 1.37 H D 1.45 H (0.6-1.2) mg/dl Glucose 103 H 81 (70-99(Fasting)) mg/dl Calcium 8.6 8.8 (8.6-10.3) mg/dl Intake and Output 07/06/23 07/07/23 07/07/23 22:59 06:59 14:59 Intake Total 1180 / 1612.333 432.333 / 1612.333 53 / 53 Output Total 5250 / 7650 2400 / 7650 Balance -4070 / -6037.667 -1967.667 / -6037.667 53 / 53 Intake: IV 220 / 412.333 192.333 / 412.333 53 / 53 Furosemide 100 mg In 0.9 % 100 / 292.333 192.333 / 292.333 53 / 53 Sodium Chloride 90 ml @ 20 MG/ HR 20 mls/hr IV .Q5H [facility] Rx#: [id number] Furosemide 200 mg In Sodium 70 / 70 Chloride 0.9% 50 ml @ 84 mls/hr IV NOW [facility] Rx#:[id number] cefTRIAXone SODIUM 2,000 mg In 50 / 50 Dextrose 5 % Mini-B 50 ml @ 100 mls/hr IV Q24H [facility] Rx#: [id number] Oral 960 / 1200 240 / 1200 Output: Urine 1550 / 1550 Urine Amount (Catheter) 3700 / 6100 2400 / 6100 Krishna/Indwelling 3700 / 6100 2400 / 6100 (2) Right heart failure Heart failure chronicity: acute on chronic Qualified Code(s): I50.813 - Acute on chronic right heart failure
[2023-07-07] MEDS: FLUoxetine HCL 20 MG CAP PO SCH (09:00)
[2023-07-07] MEDS: CYANOCOBALAMIN (B-12) 500 MCG TABLET PO SCH (09:00)
[2023-07-07] MEDS: FERROUS SULFATE 325 MG TAB PO SCH (09:00)
[2023-07-07] MEDS: GABAPENTIN 600 MG TAB PO SCH (09:01)
[2023-07-07] MEDS: ASPIRIN 81 MG ECTAB PO SCH (09:01)
[2023-07-07] MEDS: INSULIN ASPART PER UNIT CHARGE SC SCH ×4 (09:05→21:55)
--- NOTE | 2023-07-07 10:06 | Nephrology Progress Note ---
Date of Service July 07, 2023 Assessment & Plan Admission and Anticipated Discharge Date Admission Date: July 04, 2023 Subjective Assessment & Plan (1) Acute on chronic renal insufficiency: Plan: nonoliguric stage 1 DAHLIA on CKD 3 > baseline creatinine 1.4-1.5 most recently. prerenal versus ATN; cannot rule out glomerular process w/ volume overload. rapidly progressive ckd as below; now stage 3 after no CKD as recently as August 2022. - Cr improving -Continue on low K diet -daily bmp - (2) CKD (chronic kidney disease) stage 3, GFR 30-59 ml/min: Plan: She has rapidly progressive CKD >> prior to March 2023 creatinine was 0.8 (last lab check was February 2023); then in March during an admission she had DAHLIA w/ la bile renal function ever since, 1.4-1.5 range. -Will need neph f/u after d/c -ordered prot/creat ratio (3) CHF (congestive heart failure): Seems Chronic. Mostly RT ventricle type. Strong Chance of Severe YVROSE. Continue to hold Hydralazine and gabapentin. Will not add Aldactone and Jardiance while we are diuresing So aggressively. Can wait for few days to be added Continue lasix drip at 20/hr. 6100 ml urine yesterday S--feels better. 6100 ml urine. No new Symptoms Physical Exam Constitutional: Chronic ill appearing and ++ obese; no acute distress at rest Respiratory: normal respiratory effort Auscultation: + rales and + rhonchi; no wheezes Cardiovascular: Rate/Rhythm: regular rate and regular rhythm Heart Sounds: normal S1 (distant heart sounds ) and normal S2 Vessels: + JVD Extremities: + edema (+4 pitting edema to thighs, abdomen, and pre-sacral region ) Gastrointestinal (Abdomen): Inspection/Auscultation: + abdomen distended and + abdominal edema Psychiatric: A+Ox3, euthymic affect Results & Data Vital Signs (Past 12 Hours) Vital Signs Temp Pulse Pulse Resp BP Pulse Ox O2 Del Method 07/07/23 09:00 56 L 07/07/23 07:34 36.5 C 48 L 16 124/66 98 Nasal Cannula 07/07/23 03:36 36.5 C 49 L 16 141/73 H 97 Nasal Cannula 07/06/23 23:05 Nasal Cannula 07/06/23 22:57 36.6 C 60 18 151/77 H 94 Nasal Cannula 07/06/23 22:20 57 L O2 Flow Rate 07/07/23 09:00 07/07/23 07:34 2 07/07/23 03:36 2 07/06/23 23:05 2 07/06/23 22:57 2 07/06/23 22:20
[2023-07-07] MEDS: LANTUS PER UNIT CHARGE SQ SCH ×3 (11:25→22:01)
[2023-07-07] MEDS: SPIRONOLACTONE 12.5 MG TAB PO SCH (11:30)
[2023-07-07] MEDS ORDERED: PHARMACY GLYCEMIC MGMT CONSULT PRN (12:38)
--- NOTE | 2023-07-07 13:18 | Hospitalist Progress Note ---
Date of Service July 07, 2023 Assessment & Plan (1) CHF (congestive heart failure): (2) Hypertension: (3) Diabetic ulcer of foot associated with type 2 diabetes mellitus, with bone involvement without evidence of necrosis: (4) Lymphedema of both lower extremities: (5) Anemia: (6) UTI (urinary tract infection): (7) Type 2 diabetes mellitus, with long-term current use of insulin: (8) Diabetic peripheral neuropathy associated with type 2 diabetes mellitus: (9) Obesity: Plan: 53-year-old male with PMH of insulin-dependent T2DM, diabetic neuropathy, diabetic nephropathy with CKD stage III, HTN, HLD, HFpEF, morbid obesity, necrotizing fasciitis, bilateral lower extremity lymphedema, TRACI, left chronic heel ulcer presented to the ED for generalized swelling/increased edema of BLE and not feeling well. She is being managed for the following Acute exacerbation of heart failure with preserved ejection fraction Right heart failure Volume overload Came in with generalized swelling/fluid retention. Upon chart review, patient's weight of 146 kg on 05/08/2023, presenting weight at 176.6 kg on 07/04/2023. Admitting CXR with pulmonary vascular congestion, at admission : 2-3+ pitting edema BLE along with her chronic lymphedema and UE pitting edema noted. Patient's home Lasix was increased from 20mg to 40 mg the day prior to arrival at the [facility]. Troponin flat trended in 70s. Patient with no chest pain. Admitting EKG with no acute ST or T changes. Echo with EF of 55 to 60%, grade 1 diastolic dysfunction, no LV segmental wall motion abnormalities, flattened septum consistent with RV pressure/volume overload. Metoprolol on hold due to bradycardia. Hydralazine dc'd / hydralazine held as it can worsen edema Nephrology on board for volume overload/DAHLIA over CKD. Cardio on board for ac chf, appreciate recs. Daily weights. Strict I's and O's, monitor and replete electrolytes as appropriate. Labs in AM. Sleep study as OP. Nocturnal pulse ox ordered. Acute kidney injury over CKD stage III: Admitting creatinine of 1.81, baseline creatinine around 1.4. Nephrology on board, appreciate recs. Cr today 1.45. labs in am. Pt on diuresis. Acute UTI: Patient started on Rocephin 07/04, continue, follow urine and blood culture. LLE Cellulitis: Left lat leg w/ erythema/ drainage noted 07/06. wound culture. wound care consult. added dapto 07/06. Other chronic medical conditions: Iron deficiency anemia: Baseline hemoglobin around 10, stable, continue home iron supplementation HTN/HLD: Continue with home medications Insulin-dependent T2DM: Complicated with nephropathy and neuropathy. A1c of 10.1% on 04/28/2023. Sliding scale insulin while in hospital. Was taken off of Ozempic about 1 month ago as it was assumed that this was causing nausea for the patient. development educator consult for uncontrolled diabetes. Diabetic neuropathy: Continue home gabapentin. Morbid obesity: Encourage diet/lifestyle modification with exercise DVT prophylaxis: Heparin subcu Full code Disposition: PT/OT, CM to assist with DC plan. Admission and Anticipated Discharge Date Admission Date: July 04, 2023 Subjective Patient was seen and examined at bedside. Patient was lying in bed, on room air, NAD, reports feeling "eh" today but no specific complaints, denies any new acute event overnight. Denies any chest pain or shortness of breath or palpitation or headache or dizziness. Reports eating okay and moving bowels okay. Physical Exam Physical Exam: GENERAL: Alert and oriented x3. NAD, on 2L. Obesity Class III. HEENT: No pallor, no icterus. Pupils equal, round and reactive to light. Oral mucosa moist. NECK: No JVD, no neck masses. HEART: S1 and S2 heard. Regular rate and rhythm. No murmur, no gallop. RESPIRATORY SYSTEM: Normal AP diameter. No accessory muscle use. No wheezing, decreased breath sounds b/l. ABDOMEN: Soft, bowel sounds present, nontender, no distention. CENTRAL NERVOUS SYSTEM: No facial droop. Speech is clear. Obeys simple commands. Moves extremities. EXTREMITIES: 2-3+ ble pitting edema. + left heel wound w/ dressing c/d/i. No surrounding erythema noted. Left lat leg w/ erythema and drainage. Results & Data Results & Data Vital Signs (Past 12 Hours) Vital Signs Temp Pulse Pulse Resp BP Pulse Ox O2 Del Method 07/07/23 11:31 36.3 C L 57 L 16 125/60 96 Nasal Cannula 07/07/23 09:53 Room Air 07/07/23 09:00 56 L 07/07/23 07:34 36.5 C 48 L 16 124/66 98 Nasal Cannula 07/07/23 03:36 36.5 C 49 L 16 141/73 H 97 Nasal Cannula O2 Flow Rate 07/07/23 11:31 2 07/07/23 09:53 07/07/23 09:00 07/07/23 07:34 2 07/07/23 03:36 2 (2) Hypertension Hypertension type: unspecified Qualified Code(s): I10 - Essential (primary) hypertension (7) Type 2 diabetes mellitus, with long-term current use of insulin Diabetes mellitus complication status: without complication Qualified Code(s): E11.9 - Type 2 diabetes mellitus without complications; Z79.4 - technician terminal and repeater (current) use of insulin
--- NOTE | 2023-07-07 13:49 | Pharmacy Report ---
Pharmacy Glycemic Short Note 2 - Date of Service July 07, 2023 - Glycemic Short BSG Results (Last 24 hours): 07/06/23 07/06/23 07/07/23 17:22 20:44 00:12 Glucose POC Glucose 99 127 H 86 07/07/23 07/07/23 07/07/23 05:43 08:12 08:14 Glucose 81 POC Glucose 69 L* 72 07/07/23 07/07/23 07/07/23 08:44 10:11 12:16 Glucose POC Glucose 85 98 67 L* 07/07/23 07/07/23 12:17 12:32 Glucose POC Glucose 66 L* 80 OUTPATIENT ANTIDIABETIC REGIMEN: * Levemir 27 units bid, lispro 10 units AC ASSESSMENT: * 53 year old admitted with DAHLIA and CHF. Pharmacy consulted for glycemic management. Patient's blood sugars low this morning, provider held AM basal insulin. BSGs continue to be low at lunch time, despite held AM basal and only 2 units novolog given at breakfast * Patient received total of 67 units yesterday, of which 54 units were basal. Regimen heavily basal weighted, possibly contributing to lower BSGs today - plan to decrease basal dose by ~50-60% and redose tonight. Removed CR for today for now until BSGs start to recover PLAN FOR INPATIENT GLYCEMIC CONTROL: * Hold outpatient oral diabetes medications * Basal insulin * Lantus 20-25 units hs * Bolus insulin * NovoLog per scale ACHS or Q6hrs while NPO * Goal Range: Low 120 mg/dL - High 160 mg/dL * Correction Factor: 25 mg/dL/unit * Nutritional / Prandial insulin per carb ratio of 1 unit per -- grams CHO consumed
[2023-07-07] MEDS: HEPARIN SOD 5,000 UNIT/0.5 ML VIAL SQ SCH ×2 (14:30→21:55)
[2023-07-07] MEDS: cefTRIAXone SODIUM 2,000 MG in DEXTROSE 5 % MINI-B 50 ML IV SCH (16:03)
[2023-07-07] MEDS: DAPTOmycin 450 MG in SYRINGE 0 ML IV SCH (17:55)
[2023-07-07] MEDS: MELATONIN 3 MG TAB PO SCH (21:54)
[2023-07-07] MEDS: ACETAMINOPHEN 325 MG TAB PO PRN (21:54)
[2023-07-08] MEDS: FUROSEMIDE 100 MG in 0.9 % SODIUM CHLORIDE 90 ML IV SCH ×3 (04:56→21:51)
[2023-07-08 05:11] LABS: Hematocrit (blood only) 34.2 % (37.0-47.0); Hemoglobin 10.5 g/dl (12.0-16.0); Mean Corpuscular Hemoglobin 27.9 pg (25.0-34.0); Mean Corpuscular Hgb Conc 30.7 g/dL (32.0-36.0); Mean Corpuscular Volume 90.7 fL (80.0-100.0); Mean Platelet Volume 11.6 fL (9.4-12.4); Platelet Count 162 K/uL (130-400); RDW Coefficient of Variation 15.1 % (11.5-14.5); RDW Standard Deviation 49.3 fL (36.4-46.3); Red Blood Count 3.77 M/uL (4.20-5.40); White Blood Count 7.06 K/ul (4.8-10.8)
[2023-07-08 06:07] LABS: BUN Creatinine Ratio 40.3 (10-20); Calcium 8.7 mg/dl (8.6-10.3); Creatinine Clr Calc Pharmacy 87.6 ml/min; Est GFR (Non-African American) 49.2 ml/min; Magnesium 1.5 mg/dl (1.7-2.4); Phosphorus 3.7 mg/dl (2.5-4.9); Potassium 4.2 mmol/L (3.5-5.1)
[2023-07-08] MEDS: HEPARIN SOD 5,000 UNIT/0.5 ML VIAL SQ SCH ×3 (06:38→20:52)
[2023-07-08] MEDS ORDERED: FUROSEMIDE 40 MG/4 ML VIAL IV STA (06:45)
--- NOTE | 2023-07-08 06:45 | Communication Note ---
Date of Service: July 08, 2023 Made aware of hypomagnesemia with a.m. blood work. Lasix infusion currently running through patient's single IV access. IV magnesium replacement incompatible with Lasix as per RN. Lasix 40 mg IV 1 dose now followed by magnesium replacement. Resume Lasix infusion after magnesium replacement. Will request AM provider to contact IV team to establish additional peripheral IV access.
--- NOTE | 2023-07-08 07:15 | Cardiology Progress Note ---
Date of Service July 08, 2023 Assessment & Plan (1) Acute on chronic heart failure with preserved ejection fraction (HFpEF): (2) Right heart failure: Plan This is a 53 year old female with a PMHx significant for insulin-dependent T2DM, diabetic neuropathy, diabetic nephropathy with CKD stage III, HTN, HLD, chronic HFpEF, morbid obesity, history necrotizing fasciitis, bilateral lower extremity lymphedema, iron deficiency anemia and left chronic heel ulcer who presented to the ED for worsening shortness of breath and lower extremity edema. Found to be in acute on chronic combined diastolic and right heart failure. 1. Acute on Chronic HFpEF -Patient remains markedly volume overloaded, but responding well to Lasix gtt. Large diuresis over night, -10L. Reduce Lasix gtt at 10mg/hr-- appreciate nephrology input. -Continue Aldactone 12.5 mg daily-- monitor potassium with daily BMPs -Consideration to add Jardiance 10mg qday pending clinical course -TTE shows RV dysfunction and D-shaped septum likely 2/2 chronically elevated left sided filling pressures-- Study completed 07/07-07/08 positive for nocturnal hypoxia with sats down into the 60s-80s%. Consider PAP initiation while inpatient. -Hold beta andrea due to bradycardia and RHF. -Strict I&O, 2g sodium diet, +1500 mL fluid restriction -CHF education Case discussed with Dr. Pack- will follow. I spent a total of 40 minutes on the date of service in preparation, delivery, and documentation of the care provided to this patient, excluding any time spent in the performance of separately billed services. Admission and Anticipated Discharge Date Admission Date: July 04, 2023 Supervising Physician Co-Signing Physician Notes Supervising Physician Attestation: I have personally performed a history and physical examination on the patient. I agree with the nurse practitioner's findings and plan as documented with the following additions. Subjective: Pt feeling improved. fluid balance negative 10 L in last 24 hours, and negative 6 L day before that. Exam: 2+ LE edema Data: Mg 1.5 Assessment and Plan: Reduce furosemide infusion to 10mg/hr , hold spironolactone and Jardiance. DVT prophylaxis: SQ heparin I spent a total of 20 minutes on the date of service in preparation, delivery, and documentation of the care provided to this patient, excluding any time spent in the performance of separately billed services. Jayce Pack, DO Subjective 53-year-old female who initially presented to [facility] emergency department due to worsening shortness of breath and lower extremity edema. Found to be in extremely hypervolemic in acute on chronic diastolic CHF. Echocardiogram revealed preserved LV systolic function of 55 to 60% with grade 1 diastolic dysfunction and no wall motion abnormalities. Severe RV dysfunction with a D-shaped septum as well as severe TR with moderate pulmonary hypertension with a PASP of 52 mmHg. 07/06/2023: Massively volume overloaded -- 200 mg of IV Lasix given and Lasix drip started at 20 mg/hr Metoprolol held due to bradycardia. Nephrology consulted for DAHLIA/CKD. Baseline creatinine around 1.4, admitting creatinine 1.8. Hydralazine and gabapentin held-due to concerns for worsening edema. Rocephin started on 07/04 for UTI Lower extremity cellulitis-- Wound culture obtained. Vanco started. 07/07/2023: Patient remained markedly volume overloaded, continued on Lasix drip 20 mg/hr. Aldactone 12.5 mg daily started. Metoprolol succinate held due to bradycardia and right heart failure Nocturnal pulse oximetry was positive for nocturnal hypoxia with desaturations between 60 and 80%. 07/08/2023: Upon entrance into the room patient resting in bed. No acute distress- feels subjectively improved. In good spirits this morning. Patient remains markedly hypervolemic but responding well to Lasix gtt. Has a Heaton. Ongoing shortness of breath and orthopnea, but improved. Pitting edema up to the thighs as well as the abdomen/pre-sacral region. Requiring supplemental o2. No chest pain or palpations. No lightheadedness. I&O: -17.7L (-10L over last 24 hours) Weight: 176.6>>168.2 kg >> 163.7 kg Labs: Serum creatinine improved overnight, 1.24. Potassium stable. Mag low at 1.5, supplemented. Review of Systems Review of Systems: All systems reviewed & are unremarkable except as noted in HPI & below Physical Exam Constitutional: WD/WN, vitals as above + ill appearing and + obese; no acute distress Respiratory: normal respiratory effort and + cough Auscultation: + rales and + rhonchi; no wheezes Cardiovascular: Rate/Rhythm: regular rate and regular rhythm Heart Sounds: normal S1 (distant heart sounds ) and normal S2 Vessels: + JVD Extremities: + edema (+4 BLLE pitting edema to thighs, abdomen, and pre-sacral region ) Gastrointestinal (Abdomen): Inspection/Auscultation: + abdomen distended and + abdominal edema Psychiatric: A+Ox3, euthymic affect Results & Data Vital Signs (Past 12 Hours) Vital Signs Temp Pulse Pulse Pulse Resp BP Pulse Ox 07/08/23 04:02 63 07/08/23 03:55 36.6 C 56 L 16 152/72 H 98 07/07/23 22:41 71 07/07/23 22:37 36.6 C 70 18 151/76 H 93 07/07/23 22:00 71 07/07/23 21:30 07/07/23 19:38 37.0 C 67 18 171/78 H 96 Pulse Ox O2 Del Method O2 Del Method O2 Flow Rate FiO2 07/08/23 04:02 97 Nasal Cannula 1 07/08/23 03:55 Nasal Cannula 1 07/07/23 22:41 90 Room Air 07/07/23 22:37 Room Air 07/07/23 22:00 07/07/23 21:30 Nasal Cannula 2 07/07/23 19:38 Nasal Cannula 2 Laboratory Results CBC 07/08/23 Range/Units 04:37 WBC 7.06 (4.8-10.8) K/ul RBC 3.77 L (4.20-5.40) M/uL Hgb 10.5 L (12.0-16.0) g/dl Hct 34.2 L (37.0-47.0) % Plt Count 162 (130-400) K/uL Comprehensive Metabolic Panel 07/08/23 Range/Units 04:37 Sodium 144 (136-145) mmol/L Potassium 4.2 (3.5-5.1) mmol/L Chloride 101 (98-107) mmol/L Carbon Dioxide 41 H* (21-32) mmol/L BUN 50 H (6-23) mg/dl Creatinine 1.24 H (0.6-1.2) mg/dl Glucose 122 H (70-99(Fasting)) mg/dl Calcium 8.7 (8.6-10.3) mg/dl Intake and Output 07/07/23 07/08/23 07/08/23 22:59 06:59 14:59 Intake Total 584 / 1237 200 / 1237 146.333 / 146.333 Output Total 4375 / 33969 2600 / 78987 Balance -3791 / -78899 -2400 / -94928 146.333 / 146.333 Intake: IV 224 / 477 100 / 477 146.333 / 146.333 Furosemide 100 mg In 0.9 % 174 / 427 100 / 427 46.333 / 46.333 Sodium Chloride 90 ml @ 20 MG/ HR 20 mls/hr IV .Q5H [facility] Rx#: [id number] Magnesium Sulfate / D5w 1 gm In 100 / 100 100 ml @ 50 mls/hr IV Q2H [facility] Rx#:[id number] cefTRIAXone SODIUM 2,000 mg In 50 / 50 Dextrose 5 % Mini-B 50 ml @ 100 mls/hr IV Q24H [facility] Rx#: [id number] Oral 360 / 760 100 / 760 Output: Urine Amount (Catheter) 4375 / 99649 2600 / 70143 Heaton/Indwelling 4375 / 85693 2600 / 35455 Other: Weight 163.7 kg Weight Measurement Method Built in [facility] (2) Right heart failure Heart failure chronicity: acute on chronic Qualified Code(s): I50.813 - Acute on chronic right heart failure
[2023-07-08 07:18] LABS: Base Excess ABG 12.6 mEq/L (-9-1.8); HCO3 ABG 41 mmol/L (19-24); Oxygen Saturation ABG 97.8 % (90-95); PCO2 ABG 67 mmHg (35-46); PO2 ABG 90 mmHg (80-95); pH ABG 7.39 (7.35-7.45)
[2023-07-08 07:24] LABS: Allen Test Pos (Pos)
[2023-07-08] MEDS: MAGNESIUM SULFATE / D5W 1 GM/100 ML BAG IV SCH ×2 (07:30→09:02)
[2023-07-08] MEDS: CYANOCOBALAMIN (B-12) 500 MCG TABLET PO SCH (09:01)
[2023-07-08] MEDS: FLUoxetine HCL 20 MG CAP PO SCH (09:01)
[2023-07-08] MEDS: ASPIRIN 81 MG ECTAB PO SCH (09:01)
[2023-07-08] MEDS: SPIRONOLACTONE 12.5 MG TAB PO SCH (09:01)
[2023-07-08] MEDS: FERROUS SULFATE 325 MG TAB PO SCH (09:01)
[2023-07-08] MEDS: INSULIN ASPART PER UNIT CHARGE SC SCH ×4 (09:13→20:49)
[2023-07-08] MEDS ORDERED: MAGNESIUM SULFATE / D5W 1 GM/100 ML BAG IV SCH (09:15)
--- NOTE | 2023-07-08 09:43 | Nephrology Progress Note ---
Date of Service July 08, 2023 Assessment & Plan Admission and Anticipated Discharge Date Admission Date: July 04, 2023 Subjective Assessment & Plan (1) Acute on chronic renal insufficiency: Plan: nonoliguric stage 1 DAHLIA on CKD 3 > baseline creatinine 1.4-1.5 most recently. prerenal versus ATN; cannot rule out glomerular process w/ volume overload. rapidly progressive ckd as below; now stage 3 after no CKD as recently as August 2022. - Cr improving despite super massive diuresis -Continue on low K diet -daily bmp (2) CKD (chronic kidney disease) stage 3, GFR 30-59 ml/min: Plan: She has rapidly progressive CKD >> prior to March 2023 creatinine was 0.8 (last lab check was February 2023); then in March during an admission she had DAHLIA w/ labile renal function ever since, 1.4-1.5 range. -Will need neph f/u after d/c -ordered prot/creat ratio (3) CHF (congestive heart failure): Seems Chronic. Mostly RT ventricle type. Strong Chance of Severe YVROSE. Continue to hold Hydralazine and gabapentin. Will not recommend to add Aldactone and Jardiance while we are diuresing So aggressively. Can wait for few days to be added. We are witnessing very very high degree of Diuresis--12 Liter !!!. Lasix drip lowered to 10/hr. Despite this BUN and Creat is fine. Bicarb is rising. Do Venous Blood gas tomorrow AM. mag is borderline low but Super difficult to have venous access. NO need of Iv mag . Can give oral mag bid 64 mg . S--feels better. 11458 ml urine !!!! No new Symptoms Physical Exam Constitutional: Chronic ill appearing and ++ obese; no acute distress at rest Respiratory: normal respiratory effort Auscultation: + rales and + rhonchi; no wheezes Cardiovascular: Rate/Rhythm: regular rate and regular rhythm Heart Sounds: normal S1 (distant heart sounds ) and normal S2 Vessels: + JVD Extremities: + edema (+4 pitting edema to thighs, abdomen, and pre-sacral region ) Gastrointestinal (Abdomen): Inspection/Auscultation: + abdomen distended and + abdominal edema Psychiatric: A+Ox3, euthymic affect Results & Data Vital Signs (Past 12 Hours) Vital Signs Temp Pulse Pulse Pulse Resp BP BP 11/21/23 08:02 37.2 C 63 16 148/81 H 07/08/23 07:00 68 07/08/23 04:02 63 07/08/23 03:55 36.6 C 56 L 16 152/72 H 07/07/23 22:41 71 07/07/23 22:37 36.6 C 70 18 151/76 H 07/07/23 22:00 71 Pulse Ox Pulse Ox O2 Del Method O2 Del Method O2 Flow Rate FiO2 07/08/23 08:02 96 Nasal Cannula 2 07/08/23 07:00 07/08/23 04:02 97 Nasal Cannula 1 07/08/23 03:55 98 Nasal Cannula 1 07/07/23 22:41 90 Room Air 07/07/23 22:37 93 Room Air 07/07/23 22:00
[2023-07-08] MEDS: MAGNESIUM CHLORIDE W/CALCIUM 64MG DELAYED REL TAB PO SCH ×2 (11:25→20:52)
--- NOTE | 2023-07-08 15:43 | Hospitalist Progress Note ---
Date of Service July 08, 2023 Assessment & Plan (1) CHF (congestive heart failure): (2) Hypertension: (3) Diabetic ulcer of foot associated with type 2 diabetes mellitus, with bone involvement without evidence of necrosis: (4) Lymphedema of both lower extremities: (5) Anemia: (6) UTI (urinary tract infection): (7) Type 2 diabetes mellitus, with long-term current use of insulin: (8) Diabetic peripheral neuropathy associated with type 2 diabetes mellitus: (9) Obesity: Plan: 53-year-old male with PMH of insulin-dependent T2DM, diabetic neuropathy, diabetic nephropathy with CKD stage III, HTN, HLD, HFpEF, morbid obesity, necrotizing fasciitis, bilateral lower extremity lymphedema, TRACI, left chronic heel ulcer presented to the ED for generalized swelling/increased edema of BLE and not feeling well. She is being managed for the following Acute exacerbation of heart failure with preserved ejection fraction Right heart failure Volume overload Came in with generalized swelling/fluid retention. Upon chart review, patient's weight of 146 kg on 05/08/2023, presenting weight at 176.6 kg on 07/04/2023. Admitting CXR with pulmonary vascular congestion, at admission : 2-3+ pitting edema BLE along with her chronic lymphedema and UE pitting edema noted. Patient's home Lasix was increased from 20mg to 40 mg the day prior to arrival at the [facility]. Troponin flat trended in 70s. Patient with no chest pain. Admitting EKG with no acute ST or T changes. Echo with EF of 55 to 60%, grade 1 diastolic dysfunction, no LV segmental wall motion abnormalities, flattened septum consistent with RV pressure/volume overload. Metoprolol on hold due to bradycardia. Hydralazine dc'd / gabapentin held as it can worsen edema Nephrology on board for volume overload/DAHLIA over CKD. Cardio on board for ac chf, appreciate recs. Daily weights. Strict I's and O's, monitor and replete electrolytes as appropriate. Labs in AM. Sleep study as OP. Nocturnal pulse ox study noted. Will need O2 HS. Pt reports improving sob/improving gen body swelling. Acute kidney injury over CKD stage III: Admitting creatinine of 1.81, baseline creatinine around 1.4. Nephrology on board, appreciate recs. Cr today 1.24. l abs in am. Pt on diuresis. Acute UTI: Patient started on Rocephin 07/04, continue, follow urine and blood culture. LLE Cellulitis: Left lat leg w/ erythema/ drainage noted 07/06. wound culture. wound care consult. added dapto 07/06. Will plan 14 days treatment, iv while inpatient, likely transition to doxy on DC pending clinical course. Other chronic medical conditions: Iron deficiency anemia: Baseline hemoglobin around 10, stable, continue home iron supplementation HTN/HLD: Continue with home medications Insulin-dependent T2DM: Complicated with nephropathy and neuropathy. A1c of 10.1% on 04/28/2023. Sliding scale insulin while in hospital. Was taken off of Ozempic about 1 month ago as it was assumed that this was causing nausea for the patient. in service educator consult for uncontrolled diabetes. Diabetic neuropathy: Continue home gabapentin. Morbid obesity: Encourage diet/lifestyle modification with exercise DVT prophylaxis: Heparin subcu Full code Disposition: PT/OT, CM to assist with DC plan. Admission and Anticipated Discharge Date Admission Date: July 04, 2023 Subjective Patient was seen and examined at bedside. Patient was lying in bed, on room air, NAD, reports feeling better today, she is happy that now her swelling seems improving/she can move her legs better/breath better, denies any new acute event overnight. Denies any chest pain or shortness of breath or palpitation or headache or dizziness. Reports eating okay and moving bowels okay. Physical Exam Physical Exam: GENERAL: Alert and oriented x3. NAD, on 2L. Obesity Class III. HEENT: No pallor, no icterus. Pupils equal, round and reactive to light. Oral mucosa moist. NECK: No JVD, no neck masses. HEART: S1 and S2 heard. Regular rate and rhythm. No murmur, no gallop. RESPIRATORY SYSTEM: Normal AP diameter. No accessory muscle use. No wheezing, decreased breath sounds b/l. ABDOMEN: Soft, bowel sounds present, nontender, no distention. CENTRAL NERVOUS SYSTEM: No facial droop. Speech is clear. Obeys simple commands. Moves extremities. EXTREMITIES: 2-3+ ble pitting edema. + left heel wound w/ dressing c/d/i. No surrounding erythema noted. Left lat leg w/ erythema and drainage. Results & Data Results & Data Vital Signs (Past 12 Hours) Vital Signs Temp Pulse Pulse Pulse Resp BP BP 07/08/23 14:53 36.6 C 70 16 159/75 H 07/08/23 11:27 37.0 C 72 16 165/66 H 07/08/23 11:00 07/08/23 08:02 37.2 C 63 16 148/81 H 07/08/23 07:00 68 07/08/23 04:02 63 07/08/23 03:55 36.6 C 56 L 16 152/72 H Pulse Ox Pulse Ox O2 Del Method O2 Del Method O2 Flow Rate FiO2 07/08/23 14:53 97 Nasal Cannula 2 07/08/23 11:27 95 Nasal Cannula 2 07/08/23 11:00 Nasal Cannula 2 07/08/23 08:02 96 Nasal Cannula 2 07/08/23 07:00 07/08/23 04:02 97 Nasal Cannula 1 07/08/23 03:55 98 Nasal Cannula 1 (2) Hypertension Hypertension type: unspecified Qualified Code(s): I10 - Essential (primary) hypertension (7) Type 2 diabetes mellitus, with long-term current use of insulin Diabetes mellitus complication status: without complication Qualified Code(s): E11.9 - Type 2 diabetes mellitus without complications; 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
[2023-07-08] MEDS: cefTRIAXone SODIUM 2,000 MG in DEXTROSE 5 % MINI-B 50 ML IV SCH (17:00)
[2023-07-08] MEDS: DAPTOmycin 450 MG in SYRINGE 0 ML IV SCH (18:07)
[2023-07-08] MEDS: ACETAMINOPHEN 325 MG TAB PO PRN (19:20)
[2023-07-08] MEDS: LANTUS PER UNIT CHARGE SQ SCH (20:49)
[2023-07-08] MEDS: MELATONIN 3 MG TAB PO SCH (20:52)
[2023-07-09] MEDS: HEPARIN SOD 5,000 UNIT/0.5 ML VIAL SQ SCH ×3 (05:48→21:09)
[2023-07-09 06:08] LABS: Base Excess VBG 23.8 mEq/L; HCO3 VBG 53 mmol/L; Oxygen Saturation VBG 79.4 %; PCO2 VBG 76 mmHg (38-50); PO2 VBG 49 mmHg; pH VBG 7.45 (7.36-7.41)
[2023-07-09 06:20] LABS: Hemoglobin 10.5 g/dl (12.0-16.0); Mean Corpuscular Hemoglobin 27.5 pg (25.0-34.0); Mean Corpuscular Hgb Conc 30.9 g/dL (32.0-36.0); Mean Platelet Volume 11.6 fL (9.4-12.4); Platelet Count 153 K/uL (130-400); RDW Coefficient of Variation 15.3 % (11.5-14.5); RDW Standard Deviation 49.5 fL (36.4-46.3); Red Blood Count 3.82 M/uL (4.20-5.40); White Blood Count 5.13 K/ul (4.8-10.8)
[2023-07-09] MEDS: ONDANSETRON INJ 2 MG/ML 2 ML VIAL IV PRN ×4 (06:30→23:02)
[2023-07-09 06:32] LABS: BUN Creatinine Ratio 44.9 (10-20); Creatinine Clr Calc Pharmacy 116.1 ml/min; Est GFR (African American) 85.2 ml/min; Est GFR (Non-African American) 73.5 ml/min; Magnesium 1.6 mg/dl (1.7-2.4); Phosphorus 3.4 mg/dl (2.5-4.9); Potassium 3.8 mmol/L (3.5-5.1)
--- NOTE | 2023-07-09 07:06 | Cardiology Progress Note ---
Date of Service July 09, 2023 Assessment & Plan (1) Acute on chronic heart failure with preserved ejection fraction (HFpEF): (2) Right heart failure: Plan This is a 53 year old female with a PMHx significant for insulin-dependent T2DM, diabetic neuropathy, diabetic nephropathy with CKD stage III, HTN, HLD, chronic HFpEF, morbid obesity, history necrotizing fasciitis, bilateral lower extremity lymphedema, iron deficiency anemia and left chronic heel ulcer who presented to the ED for worsening shortness of breath and lower extremity edema. Found to be in acute on chronic combined diastolic and right heart failure. 1. Acute on Chronic HFpEF -Patient remains markedly volume overloaded, but responding well to Lasix gtt. Ongoing Large diuresis over night, -7L. Continue Lasix gtt at 10mg/hr-- appreciate nephrology reccomendations. -BUN/Scr stable, CO2 rising-- VBG this am per nephrology -Monitor potassium with daily BMPs -Consideration to add Aldactone and/or Jardiance pending clinical course-- will hold off at this time due to aggressive diuresis with Lasix gtt. -TTE shows RV dysfunction and D-shaped septum likely 2/2 chronically elevated left sided filling pressures-- Study completed 07/07-07/08 positive for nocturnal hypoxia with sats down into the 60s-80s%. Consider PAP initiation while inpatient. -Hold beta andrea due to bradycardia and RHF. -Strict I&O, 2g sodium diet, +1500 mL fluid restriction -CHF education Case discussed with Dr. Pack- will follow. I spent a total of 30 minutes on the date of service in preparation, delivery, and documentation of the care provided to this patient, excluding any time spent in the performance of separately billed services. Admission and Anticipated Discharge Date Admission Date: July 04, 2023 Supervising Physician Co-Signing Physician Notes Supervising Physician Attestation: I have personally performed a history and physical examination on the patient. I agree with the TRAIN RESERVATION CLERK's findings and plan as documented with the following additions. Subjective: Pt feeling improved. Furosemide infusion dose reduced from 20 mg/h to 10 mg per an hour on 07/08/2023. Patient with ongoing vigorous diuresis. Exam: 2+ LE edema Data: Mg 1.6 Assessment and Plan: Reduce furosemide infusion to 10mg/hr , hold spironolactone and Jardiance. DVT prophylaxis: SQ heparin I spent a total of 20 minutes on the date of service in preparation, delivery, and documentation of the care provided to this patient, excluding any time spent in the performance of separately billed services. Jayce Pack, DO Subjective 53-year-old female who initially presented to [facility] emergency department due to worsening shortness of breath and lower extremity edema. Found to be in extremely hypervolemic in acute on chronic diastolic CHF. Echocardiogram revealed preserved LV systolic function of 55 to 60% with grade 1 diastolic dysfunction and no wall motion abnormalities. Severe RV dysfunction with a D-shaped septum as well as severe TR with moderate pulmonary hypertension with a PASP of 52 mmHg. 07/06/2023: Massively volume overloaded -- 200 mg of IV Lasix given and Lasix drip started at 20 mg/hr Metoprolol held due to bradycardia. Nephrology consulted for DAHLIA/CKD. Baseline creatinine around 1.4, admitting creatinine 1.8. Hydralazine and gabapentin held-due to concerns for worsening edema. Rocephin started on 07/04 for UTI Lower extremity cellulitis-- Wound culture obtained. Vanco started. 07/07/2023: Patient remained markedly volume overloaded, continued on Lasix drip 20 mg/hr. Aldactone 12.5 mg daily started. Metoprolol succinate held due to bradycardia and right heart failure Nocturnal pulse oximetry was positive for nocturnal hypoxia with desaturations between 60 and 80%. 07/08/2023: Massive diuresis over the last 24 hours of approximately -11 L. BUN and serum creatinine within normal limits however bicarb was rising--Lasix drip reduced to 10 mg/hr. Prolactin 12 and half milligrams daily continue 07/09/2023: Upon entrance into the room patient resting in bed. Sister in law at bedside. No acute distress- feels subjectively improved. Patient remains markedly hypervolemic but responding well to Lasix gtt. Has a Heaton. Ongoing shortness of breath and orthopnea, but improved. Edema improving, remains edematous to the knees, notable abdominal bloating/edema also. Requiring supplemental o2. No chest pain or palpations. No lightheadedness. Tele: NSR with IVCD 50-60s I&O: -24.7L total (-7L over last 24 hours) Weight: 176.6>>168.2 kg >> 163.7 kg >> 155.2 kg Labs: BUN and Scr stable/improved-- Scr 0.89 BUN 44. Potassium 3.8-- supplemented. Mag low at 1.6-- started on daily replacement by nephrology Review of Systems Review of Systems: All systems reviewed & are unremarkable except as noted in HPI & below Physical Exam Constitutional: WD/WN, vitals as above + ill appearing and + obese; no acute distress Respiratory: normal respiratory effort and + cough Auscultation: + rales; no rhonchi and no wheezes Cardiovascular: Rate/Rhythm: regular rate and regular rhythm Heart Sounds: normal S1 (distant heart sounds ) and normal S2 Vessels: + JVD Extremities: + edema (+3 BLLE pitting edema to thighs, abdomen, and pre-sacral region ) Gastrointestinal (Abdomen): Inspection/Auscultation: + abdomen distended and + abdominal edema Psychiatric: A+Ox3, euthymic affect Results & Data Vital Signs (Past 12 Hours) Vital Signs Temp Pulse Pulse Resp BP Pulse Ox O2 Del Method 07/09/23 03:15 36.7 C 65 18 148/46 H 96 Nasal Cannula 07/09/23 00:11 36.9 C 71 18 149/78 H 95 Nasal Cannula 07/08/23 22:00 67 07/08/23 21:30 Nasal Cannula 07/08/23 19:52 36.5 C 73 18 163/80 H 94 Nasal Cannula O2 Flow Rate 07/09/23 03:15 1 07/09/23 00:11 1 07/08/23 22:00 07/08/23 21:30 1 07/08/23 19:52 1 Laboratory Results CBC 07/09/23 Range/Units 05:49 WBC 5.13 (4.8-10.8) K/ul RBC 3.82 L (4.20-5.40) M/uL Hgb 10.5 L (12.0-16.0) g/dl Hct 34.0 L (37.0-47.0) % Plt Count 153 (130-400) K/uL Comprehensive Metabolic Panel 07/09/23 Range/Units 05:49 Sodium 145 (136-145) mmol/L Potassium 3.8 (3.5-5.1) mmol/L Chloride 98 (98-107) mmol/L Carbon Dioxide 44 H* (21-32) mmol/L BUN 40 H (6-23) mg/dl Creatinine 0.89 D (0.6-1.2) mg/dl Glucose 102 H (70-99(Fasting)) mg/dl Calcium 9.0 (8.6-10.3) mg/dl Intake and Output 07/08/23 07/09/23 07/09/23 22:59 06:59 14:59 Intake Total 250 / 1056.333 118.833 / 118.833 Output Total 2850 / 8000 1850 / 8000 Balance -2600 / -6943.667 -1850 / -6943.667 118.833 / 118.833 Intake: IV 150 / 396.333 118.833 / 118.833 Furosemide 100 mg In 0.9 % 100 / 100 118.833 / 118.833 Sodium Chloride 90 ml @ 10 MG/ HR 10 mls/hr IV .Q10H MOHAMUD Rx#: [id number] cefTRIAXone SODIUM 2,000 mg In 50 / 50 Dextrose 5 % Mini-B 50 ml @ 100 mls/hr IV Q24H MOHAMUD Rx#: [id number] Oral 100 / 660 Output: Urine Amount (Catheter) 2850 / 8000 1850 / 8000 Heaton/Indwelling 2850 / 8000 1850 / 8000 Other: Other Intake Source Sips Weight 155.2 kg Weight Measurement Method Built in [facility] (2) Right heart failure Heart failure chronicity: acute on chronic Qualified Code(s): I50.813 - Acute on chronic right heart failure
[2023-07-09] MEDS ORDERED: POTASSIUM CHLORIDE CRTAB 20 MEQ TABCR PO STA (07:10)
[2023-07-09] MEDS: FUROSEMIDE 100 MG in 0.9 % SODIUM CHLORIDE 90 ML IV SCH ×2 (08:02→17:17)
[2023-07-09] MEDS: FLUoxetine HCL 20 MG CAP PO SCH (08:23)
[2023-07-09] MEDS: FERROUS SULFATE 325 MG TAB PO SCH (08:24)
[2023-07-09] MEDS: ASPIRIN 81 MG ECTAB PO SCH (08:24)
[2023-07-09] MEDS: MAGNESIUM CHLORIDE W/CALCIUM 64MG DELAYED REL TAB PO SCH ×2 (08:25→21:09)
[2023-07-09] MEDS: CYANOCOBALAMIN (B-12) 500 MCG TABLET PO SCH (08:25)
[2023-07-09] MEDS: INSULIN ASPART PER UNIT CHARGE SC SCH ×4 (09:34→20:41)
[2023-07-09] MEDS: MAGNESIUM SULFATE / D5W 1 GM/100 ML BAG IV SCH ×2 (09:53→11:44)
--- NOTE | 2023-07-09 10:00 | Nephrology Progress Note ---
Date of Service July 09, 2023 Assessment & Plan Admission and Anticipated Discharge Date Admission Date: July 04, 2023 Subjective Assessment & Plan (1) Acute on chronic renal insufficiency: Plan: nonoliguric stage 1 DAHLIA on CKD 3 > baseline creatinine 1.4-1.5 most recently. prerenal versus ATN; cannot rule out glomerular process w/ volume overload. rapidly progressive ckd as below; now stage 3 after no CKD as recently as August 2022. - Cr improving despite super massive diuresis -Continue on low K diet -daily bmp (3) CHF (congestive heart failure): Seems Chronic. Mostly RT ventricle type. Strong Chance of Severe YVROSE. ABG and VBG shows Co2 retention and Compensated picture. recommend Night Bipap Continue to hold Hydralazine and gabapentin. Will not recommend to add Aldactone and Jardiance while we are diuresing So aggressively. Can wait for few days to be added. We are witnessing very very high degree of Diuresis--again 8 Liter !!!. Lasix drip lowered to 10/hr yesterday. Despite this BUN and Creat is improving and now normal. Bicarb is Somewhat high but ABG and VBG shows Co2 retention and Compensated picture. No need to add diamox. mag is borderline low but Super difficult to have venous access. NO need of Iv mag . Can give oral mag bid 64 mg . S--feels better. 8000 ml urine !!!! No new Symptoms. Less SOB and less edematous. She is happy. Physical Exam Constitutional: Chronic ill appearing and ++ obese; no acute distress at rest Respiratory: normal respiratory effort Auscultation: + rales and + rhonchi; no wheezes Cardiovascular: Rate/Rhythm: regular rate and regular rhythm Heart Sounds: normal S1 (distant heart sounds ) and normal S2 Vessels: + JVD Extremities: + edema (+4 pitting edema to thighs, abdomen, and pre-sacral region ) Gastrointestinal (Abdomen): Inspection/Auscultation: + abdomen distended and + abdominal edema Psychiatric: A+Ox3, euthymic affect Results & Data Vital Signs (Past 12 Hours) Vital Signs Temp Pulse Pulse Resp BP BP Pulse Ox 07/09/23 08:00 36.9 C 68 16 161/75 H 96 07/09/23 03:15 36.7 C 65 18 148/46 H 96 07/09/23 00:11 36.9 C 71 18 149/78 H 95 07/08/23 22:00 67 O2 Del Method O2 Flow Rate 07/09/23 08:00 Nasal Cannula 2 07/09/23 03:15 Nasal Cannula 1 07/09/23 00:11 Nasal Cannula 1 07/08/23 22:00
--- NOTE | 2023-07-09 14:01 | Pharmacy Report ---
Pharmacy Glycemic Short Note 2 - Date of Service July 09, 2023 - Glycemic Short BSG Results (Last 24 hours): 07/08/23 07/08/23 07/09/23 17:13 20:12 05:49 Glucose 102 H POC Glucose 162 H 172 H 07/09/23 07/09/23 08:27 12:05 Glucose POC Glucose 102 H 133 H OUTPATIENT ANTIDIABETIC REGIMEN: * Levemir 27 units bid, lispro 10 units AC ASSESSMENT: 07/09/23 * BSGs yesterday were [phone] mg/dL. Patient received 32 units of insulin (20 units of basal and 12 units of bolus). * Fasting today is 102 mg/dL. * Decrease Lantus to 15 units nightly. * Continue Novolog as BSGs relatively stable. BACKGROUND * 53 year old admitted with DAHLIA and CHF. Pharmacy consulted for glycemic management. Patient's blood sugars low this morning, provider held AM basal insulin. BSGs continue to be low at lunch time, despite held AM basal and only 2 units novolog given at breakfast * Patient received total of 67 units yesterday, of which 54 units were basal. Regimen heavily basal weighted, possibly contributing to lower BSGs today - plan to decrease basal dose by ~50-60% and redose tonight. Removed CR for today for now until BSGs start to recover PLAN FOR INPATIENT GLYCEMIC CONTROL: * Hold outpatient oral diabetes medications * Basal insulin * Lantus 15 units hs * Bolus insulin * NovoLog per scale ACHS or Q6hrs while NPO * Goal Range: Low 120 mg/dL - High 160 mg/dL * Correction Factor: 25 mg/dL/unit * Nutritional / Prandial insulin per carb ratio of 1 unit per 8 grams CHO consumed
[2023-07-09] MEDS: DAPTOmycin 450 MG in SYRINGE 0 ML IV SCH (17:16)
--- NOTE | 2023-07-09 17:30 | Hospitalist Progress Note ---
Date of Service July 09, 2023 Assessment & Plan (1) CHF (congestive heart failure): (2) Hypertension: (3) Diabetic ulcer of foot associated with type 2 diabetes mellitus, with bone involvement without evidence of necrosis: (4) Lymphedema of both lower extremities: (5) Anemia: (6) UTI (urinary tract infection): (7) Type 2 diabetes mellitus, with long-term current use of insulin: (8) Diabetic peripheral neuropathy associated with type 2 diabetes mellitus: (9) Obesity: Plan: 53-year-old male with PMH of insulin-dependent T2DM, diabetic neuropathy, diabetic nephropathy with CKD stage III, HTN, HLD, HFpEF, morbid obesity, necrotizing fasciitis, bilateral lower extremity lymphedema, TRACI, left chronic heel ulcer presented to the ED for generalized swelling/increased edema of BLE and not feeling well. She is being managed for the following #Acute exacerbation of heart failure with preserved ejection fraction #Acute Right heart failure Upon chart review, patient's weight of 146 kg on 05/08/2023, presenting weight at 176.6 kg on 07/04/2023. Admitting CXR with pulmonary vascular congestion, at admission : 2-3+ pitting edema BLE along with her chronic lymphedema and UE pitting edema noted. Patient's home Lasix was increased from 20mg to 40 mg the day prior to arrival at the SNF. Troponin flat trended in 70s. Patient with no chest pain. Admitting EKG with no acute ST or T changes. Echo with EF of 55 to 60%, grade 1 diastolic dysfunction, no LV segmental wall motion abnormalities, flattened septum consistent with RV pressure/volume overload. Metoprolol on hold due to bradycardia. Hydralazine dc'd / gabapentin held as it can worsen edema -Continue Daily weights. Strict I's and O's, monitor and replete electrolytes as appropriate. -Trial BiPAP qhs and with naps -Continue lasix drip -Cardiology following, appreciate recommendations #Acute kidney injury over CKD stage III *improving - Admitting creatinine of 1.81, baseline creatinine around 1.4. -Continue diuersis as tolerated -No further IV mag, continue mag BID #Acute UTI: Patient started on Rocephin 07/04,klebsiella UTI, continue CTX given cellulitis #LLE Cellulitis: Left lat leg w/ erythema/ drainage noted 07/06. wound culture. wound care consult. added dapto 07/06. Will plan 14 days treatment, iv while inpatient, likely transition to doxy on DC pending clinical course. Other chronic medical conditions: Iron deficiency anemia: Baseline hemoglobin around 10, stable, continue home iron supplementation HTN/HLD: Continue with home medications Insulin-dependent T2DM: Complicated with nephropathy and neuropathy. A1c of 10.1% on 04/28/2023. Sliding scale insulin while in hospital. Was taken off of Ozempic about 1 month ago as it was assumed that this was causing nausea for the patient. hematology nurse educator consult for uncontrolled diabetes. Diabetic neuropathy: hold home gabapentin Morbid obesity: Encourage diet/lifestyle modification with exercise DVT prophylaxis: Heparin subcu Full code Disposition: PT/OT, CM to assist with DC plan. Admission and Anticipated Discharge Date Admission Date: July 04, 2023 Subjective Patient evaluated this morning Willing to trial bipap with naps/bedtime Denies new concerns, and endorses slow, but noticable improvements in swelling; reports weakness, but states she hasn't lost everything she gained from her recent rehab stay, though she is "scared" on her feet Review of Systems Review of Systems: All systems reviewed & are unremarkable except as noted in Subjective Physical Exam Constitutional: laying in bed, conversational, on NC Respiratory: difficult to assess 2/2 habitus, no distress noted on exam Cardiovascular: RRR, no murmur, no edema Skin: notably edematous legs with hymphedematous skin thickening/changes, wound on left LE wrapped with kerlex, no drainiage appreciated Results & Data Results & Data Vital Signs (Past 12 Hours) Vital Signs Temp Pulse Pulse Resp BP BP Pulse Ox 07/09/23 16:05 37.4 C 74 16 165/73 H 94 07/09/23 14:24 77 19 98 07/09/23 14:14 79 07/09/23 12:47 36.5 C 76 20 165/79 H 95 07/09/23 11:24 36.3 C L 73 16 148/81 H 94 07/09/23 10:59 07/09/23 08:00 36.9 C 68 16 161/75 H 96 07/09/23 07:00 65 O2 Del Method O2 Flow Rate 07/09/23 16:05 Room Air, BiPAP 07/09/23 14:24 2 07/09/23 14:14 07/09/23 12:47 Nasal Cannula 1 07/09/23 11:24 Nasal Cannula 2 07/09/23 10:59 Nasal Cannula 1 07/09/23 08:00 Nasal Cannula 2 07/09/23 07:00 Laboratory Results Short CBC 07/09/23 Range/Units 05:49 WBC 5.13 (4.8-10.8) K/ul Hgb 10.5 L (12.0-16.0) g/dl Hct 34.0 L (37.0-47.0) % Plt Count 153 (130-400) K/uL BMP 07/09/23 05:49 Sodium 145 Potassium 3.8 Chloride 98 Carbon Dioxide 44 H* BUN 40 H Creatinine 0.89 D Glucose 102 H Calcium 9.0 Medications Administered Home Medications Medication Instructions Recorded Confirmed Last Taken aspirin 81 mg tablet,delayed 81 mg PO QAM 03/14/22 07/04/23 04/27/23 release ferrous sulfate 325 mg (65 mg 325 mg PO DAILY 03/14/22 07/04/23 04/27/23 iron) tablet furosemide 40 mg tablet (Lasix) 40 mg PO QAM 05/17/22 07/04/23 07/03/23 insulin detemir U-100 100 unit/mL 27 unit subcut BID 05/17/22 07/04/23 07/03/23 subcutaneous solution (Levemir U-100 Insulin) insulin lispro 100 unit/mL 10 unit subcut AC 05/17/22 07/04/23 07/03/23 subcutaneous solution acetaminophen 500 mg tablet 1,000 mg PO Q6H PRN Pain 03/13/23 07/04/23 06/30/23 (Tylenol Extra Strength) cyanocobalamin (vitamin B-12) 1,000 mcg PO DAILY 03/13/23 07/04/23 04/27/23 1,000 mcg tablet (Vitamin B-12) metoprolol succinate 25 mg 25 mg PO QAM 03/13/23 07/04/23 07/03/23 tablet,extended release 24 hr gabapentin 600 mg tablet 600 mg PO BID #60 tabs 05/08/23 07/04/23 07/03/23 fluoxetine 20 mg capsule (Prozac) 20 mg PO DAILY 07/04/23 07/04/23 07/04/23 hydralazine 50 mg tablet 50 mg PO QAM 07/04/23 07/04/23 07/03/23 melatonin 3 mg tablet 3 mg PO HS 07/04/23 07/04/23 07/03/23 Active Medications Generic Name Dose Route Start Last Admin Trade Name Freq PRN Reason Stop Dose Admin Acetaminophen 650 mg 07/04/23 15:34 07/08/23 19:20 Acetaminophen 325 Mg Tab PO 08/03/23 15:33 650 mg Q4H PRN Administration Moderate Pain (Scale 4, 5, 6) Aspirin 81 mg 07/04/23 16:00 07/09/23 08:24 Aspirin 81 Mg Ectab PO 08/03/23 15:59 81 mg QAM MOHAMUD Administration Cyanocobalamin 1,000 mcg 07/05/23 09:00 07/09/23 08:25 Cyanocobalamin (B-12) 500 Mcg Tablet PO 08/04/23 08:59 1,000 mcg DAILY MOHAMUD Administration Ferrous Sulfate 325 mg 07/05/23 09:00 07/09/23 08:24 Ferrous Sulfate 325 Mg Tab PO 08/04/23 08:59 325 mg DAILY MOHAMUD Administration Fluoxetine HCl 20 mg 07/04/23 16:00 07/09/23 08:23 Fluoxetine Hcl 20 Mg Cap PO 08/03/23 15:59 20 mg DAILY MOHAMUD Administration Gabapentin 600 mg 07/04/23 21:00 07/07/23 09:01 Gabapentin 600 Mg Tab PO 08/03/23 20:59 600 mg BID MOHAMUD Administration Heparin Sodium (Porcine) 5,000 units 07/07/23 14:00 07/09/23 13:09 Heparin Sod 5,000 Unit/0.5 Ml Vial SQ 08/06/23 13:59 5,000 units Q8 MOHAMUD Administration Daptomycin 450 mg/ Syringe 9 mls @ 4.5 mls/min 07/06/23 17:30 07/09/23 17:16 IV 07/13/23 17:29 4.5 mls/min Q24H MOHAMUD Administration Protocol Furosemide 100 mg/ Sodium 100 mls @ 10 mls/hr 07/08/23 11:00 07/09/23 17:17 Chloride IV 08/07/23 10:59 10 mg/hr .Q10H MOHAMUD 10 mls/hr Administration 10 MG/HR Insulin Aspart 0 units 07/04/23 15:34 07/09/23 13:08 Insulin Aspart Per Unit Charge SC 08/03/23 15:33 3 units ACHS MOHAMUD Administration Magnesium Chloride 64 mg 07/08/23 10:30 07/09/23 08:25 Magnesium Chloride W/Calcium 64mg Delayed Rel Tab PO 08/07/23 10:29 64 mg BID MOHAMUD Administration Melatonin 3 mg 07/04/23 21:00 07/08/23 20:52 Melatonin 3 Mg Tab PO 08/03/23 20:59 3 mg HS MOHAMUD Administration Metoprolol Succinate 12.5 mg 07/04/23 16:00 07/06/23 09:42 Metoprolol Succ 25mg Ext Rel Tab PO 08/03/23 15:59 12.5 mg QAM MOHAMUD Administration Miscellaneous 15 - 30 gm 07/04/23 15:34 07/07/23 08:21 Carbohydrates For Hypoglycemia PO 08/03/23 15:33 15 gm UD PRN Administration Hypoglycemia Protocol Ondansetron HCl 4 mg 07/04/23 15:34 07/09/23 11:50 Ondansetron Inj 2 Mg/Ml 2 Ml Vial IV 08/03/23 15:33 4 mg Q4H PRN Administration Nausea And Vomiting Sennosides 17.2 mg 07/05/23 10:10 07/06/23 09:41 Senna 8.6 Mg Tab PO 08/04/23 10:14 17.2 mg QAM PRN Administration constipation Spironolactone 12.5 mg 07/07/23 11:30 07/08/23 09:01 Spironolactone 12.5 Mg Tab PO 08/06/23 11:29 12.5 mg DAILY MOHAMUD Administration (2) Hypertension Hypertension type: unspecified Qualified Code(s): I10 - Essential (primary) hypertension (7) Type 2 diabetes mellitus, with long-term current use of insulin Diabetes mellitus complication status: without complication Qualified Code(s): E11.9 - Type 2 diabetes mellitus without complications; Z79.4 - group home (current) use of insulin
[2023-07-09] MEDS ORDERED: LANTUS PER UNIT CHARGE SQ SCH (21:00)
[2023-07-09] MEDS: MELATONIN 3 MG TAB PO SCH (21:09)
[2023-07-10] MEDS: ACETAMINOPHEN 325 MG TAB PO PRN (00:42)
[2023-07-10] MEDS ORDERED: PROMETHAZINE HCL 12.5 MG in SODIUM CHLORIDE 0.9% 50 ML IV PRN (01:46)
[2023-07-10] MEDS ORDERED: hydrALAZINE HCL 20 MG/ML VIAL IV ONE (02:20)
[2023-07-10] MEDS: FUROSEMIDE 100 MG in 0.9 % SODIUM CHLORIDE 90 ML IV SCH (02:40)
[2023-07-10 06:34] LABS: Hematocrit (blood only) 36.5 % (37.0-47.0); Mean Corpuscular Hemoglobin 27.7 pg (25.0-34.0); Mean Corpuscular Hgb Conc 30.1 g/dL (32.0-36.0); Mean Corpuscular Volume 91.9 fL (80.0-100.0); Mean Platelet Volume 11.6 fL (9.4-12.4); Platelet Count 150 K/uL (130-400); RDW Coefficient of Variation 15.2 % (11.5-14.5); RDW Standard Deviation 50.5 fL (36.4-46.3); Red Blood Count 3.97 M/uL (4.20-5.40)
[2023-07-10] MEDS: HEPARIN SOD 5,000 UNIT/0.5 ML VIAL SQ SCH ×3 (06:49→23:10)
[2023-07-10 06:53] LABS: BUN Creatinine Ratio 35.2 (10-20); Calcium 9.1 mg/dl (8.6-10.3); Creatinine Clr Calc Pharmacy 111.7 ml/min; Est GFR (African American) 82.9 ml/min; Est GFR (Non-African American) 71.5 ml/min; Magnesium 1.7 mg/dl (1.7-2.4); Phosphorus 3.7 mg/dl (2.5-4.9); Potassium 3.7 mmol/L (3.5-5.1)
--- NOTE | 2023-07-10 07:52 | Electrocardiogram Report ---
Test Reason : Blood Pressure : / mmHG Vent. Rate : 076 BPM Atrial Rate : 076 BPM P-R Int : 174 ms QRS Dur : 142 ms QT Int : 436 ms P-R-T Axes : 081 020 031 degrees QTc Int : 490 ms Normal sinus rhythm Right bundle branch block Abnormal ECG When compared with ECG of 04-JUL-2023 08:10, Vent. rate has increased BY 26 BPM T wave inversion more evident in Anterior leads QT has lengthened Confirmed by Abilio Maens ([id number]) on 07/10/2023 7:52:09 AM Referred By: REFERRED SELF Confirmed By:Abilio Means
[2023-07-10] MEDS ORDERED: POTASSIUM CHLORIDE CRTAB 20 MEQ TABCR PO STA (07:54)
--- NOTE | 2023-07-10 08:00 | Hospitalist Progress Note ---
Date of Service July 10, 2023 Assessment & Plan (1) CHF (congestive heart failure): (2) Hypertension: (3) Diabetic ulcer of foot associated with type 2 diabetes mellitus, with bone involvement without evidence of necrosis: (4) Lymphedema of both lower extremities: (5) Anemia: (6) UTI (urinary tract infection): (7) Type 2 diabetes mellitus, with long-term current use of insulin: (8) Diabetic peripheral neuropathy associated with type 2 diabetes mellitus: (9) Obesity: Plan: Ms. Rand is a 53-year-old male with PMH of insulin-dependent T2DM, diabetic neuropathy, diabetic nephropathy with CKD stage III, HTN, HLD, HFpEF, morbid obesity, necrotizing fasciitis, bilateral lower extremity lymphedema, TRACI, left chronic heel ulcer presented to the ED for generalized swelling/increased edema of BLE and not feeling well. She is being managed for the following #Nausea #Multiple BM -history of impaction, generalized abdominal pain -Will trial reglan for nausea/promotility iso diabetes -KUB with stool burden, concern for impending impaction given recent history of such, 1x bisacodyl suppository -CTM with liquid diet -Cards holding lasix at this time -c diff sent, pending -?relative hypoglycemia contributing, POC in low 100s--quite low given A1C 10% --reduce glargine #Hypertension -Antihypertensives held thus far given aggressive diuresis -Trial captorpil x1 assess response/tolerance, consider TID dosing while undergoing aggressive diuersis to with hold parameters in place #Acute exacerbation of heart failure with preserved ejection fraction #Acute Right heart failure Upon chart review, patient's weight of 146 kg on 05/08/2023, presenting weight at 176.6 kg on 07/04/2023. Admitting CXR with pulmonary vascular congestion, at admission : 2-3+ pitting edema BLE along with her chronic lymphedema and UE pitting edema noted. Patient's home Lasix was increased from 20mg to 40 mg the day prior to arrival at the SNF. Troponin flat trended in 70s. Patient with no chest pain. Admitting EKG with no acute ST or T changes. Echo with EF of 55 to 60%, grade 1 diastolic dysfunction, no LV segmental wall motion abnormalities, flattened septum consistent with RV pressure/volume overload. Metoprolol on hold due to bradycardia. Hydralazine dc'd / gabapentin held as it can worsen edema -Continue Daily weights. Strict I's and O's, monitor and replete electrolytes as appropriate. -Trial BiPAP qhs and with naps -Hold lasix drip for today -Cardiology following, appreciate recommendations #Acute kidney injury over CKD stage III *improving - Admitting creatinine of 1.81, baseline creatinine around 1.4. -Continue diuresis as tolerated -No further IV mag, continue mag BID #Acute UTI: Patient started on Rocephin 07/04,klebsiella UTI, continue CTX given cellulitis #LLE Cellulitis: Left lat leg w/ erythema/ drainage noted 07/06. wound culture. wound care consult. added dapto 07/06. Will plan 14 days treatment, iv while inpatient, likely transition to doxy on DC pending clinical course. Other chronic medical conditions: Iron deficiency anemia: Baseline hemoglobin around 10, stable, continue home iron supplementation HTN/HLD: consider addition of ACEi, Insulin-dependent T2DM: Complicated with nephropathy and neuropathy. A1c of 10.1% on 04/28/2023. Sliding scale insulin while in hospital. Was taken off of Ozempic about 1 month ago as it was assumed that this was causing nausea for the patient. nurses educator consult for uncontrolled diabetes. Diabetic neuropathy: hold home gabapentin Morbid obesity: Encourage diet/lifestyle modification with exercise DVT prophylaxis: Heparin subcu Full code Disposition: PT/OT, CM to assist with DC plan. Admission and Anticipated Discharge Date Admission Date: July 04, 2023 Subjective Down 17 kilos since admission Review of Systems Review of Systems: All systems reviewed & are unremarkable except as noted in Subjective Physical Exam Constitutional: ill appearing generally unwell looking Respiratory: no respiratory distress Cardiovascular: RRR, no murmur, no edema Results & Data Results & Data Vital Signs (Past 12 Hours) Vital Signs Temp Pulse Pulse Resp BP BP Pulse Ox 07/10/23 07:52 36.6 C 82 16 166/68 H 97 07/10/23 02:16 36.5 C 71 18 175/79 H 97 07/09/23 23:52 37.0 C 76 18 149/66 H 96 07/09/23 22:23 75 07/09/23 20:37 36.9 C 70 18 153/75 H 93 07/09/23 20:30 O2 Del Method O2 Flow Rate 07/10/23 07:52 Room Air 07/10/23 02:16 Nasal Cannula 2 07/09/23 23:52 Nasal Cannula 2 07/09/23 22:23 07/09/23 20:37 Nasal Cannula 2 07/09/23 20:30 Nasal Cannula 2 Laboratory Results Short CBC 07/10/23 Range/Units 06:00 WBC 5.10 (4.8-10.8) K/ul Hgb 11.0 L (12.0-16.0) g/dl Hct 36.5 L (37.0-47.0) % Plt Count 150 (130-400) K/uL BMP 07/10/23 06:00 Sodium 145 Potassium 3.7 Chloride 97 L Carbon Dioxide 45 H* BUN 32 H Creatinine 0.91 Glucose 107 H Calcium 9.1 Medications Administered Home Medications Medication Instructions Recorded Confirmed Last Taken aspirin 81 mg tablet,delayed 81 mg PO QAM 03/14/22 07/04/23 04/27/23 release ferrous sulfate 325 mg (65 mg 325 mg PO DAILY 03/14/22 07/04/23 04/27/23 iron) tablet furosemide 40 mg tablet (Lasix) 40 mg PO QAM 05/17/22 07/04/23 07/03/23 insulin detemir U-100 100 unit/mL 27 unit subcut BID 05/17/22 07/04/23 07/03/23 subcutaneous solution (Levemir U-100 Insulin) insulin lispro 100 unit/mL 10 unit subcut AC 05/17/22 07/04/23 07/03/23 subcutaneous solution acetaminophen 500 mg tablet 1,000 mg PO Q6H PRN Pain 03/13/23 07/04/23 06/30/23 (Tylenol Extra Strength) cyanocobalamin (vitamin B-12) 1,000 mcg PO DAILY 03/13/23 07/04/23 04/27/23 1,000 mcg tablet (Vitamin B-12) metoprolol succinate 25 mg 25 mg PO QAM 03/13/23 07/04/23 07/03/23 tablet,extended release 24 hr gabapentin 600 mg tablet 600 mg PO BID #60 tabs 05/08/23 07/04/23 07/03/23 fluoxetine 20 mg capsule (Prozac) 20 mg PO DAILY 07/04/23 07/04/23 07/04/23 hydralazine 50 mg tablet 50 mg PO QAM 07/04/23 07/04/23 07/03/23 melatonin 3 mg tablet 3 mg PO HS 07/04/23 07/04/23 07/03/23 Active Medications Generic Name Dose Route Start Last Admin Trade Name Freq PRN Reason Stop Dose Admin Acetaminophen 650 mg 07/04/23 15:34 07/10/23 00:42 Acetaminophen 325 Mg Tab PO 08/03/23 15:33 650 mg Q4H PRN Administration Moderate Pain (Scale 4, 5, 6) Aspirin 81 mg 07/04/23 16:00 07/10/23 09:00 Aspirin 81 Mg Ectab PO 08/03/23 15:59 81 mg QAM MOHAMUD Administration Cyanocobalamin 1,000 mcg 07/05/23 09:00 07/10/23 09:00 Cyanocobalamin (B-12) 500 Mcg Tablet PO 08/04/23 08:59 1,000 mcg DAILY MOHAMUD Administration Ferrous Sulfate 325 mg 07/05/23 09:00 07/09/23 08:24 Ferrous Sulfate 325 Mg Tab PO 08/04/23 08:59 325 mg DAILY MOHAMUD Administration Fluoxetine HCl 20 mg 07/04/23 16:00 07/10/23 09:00 Fluoxetine Hcl 20 Mg Cap PO 08/03/23 15:59 20 mg DAILY MOHAMUD Administration Gabapentin 600 mg 07/04/23 21:00 07/07/23 09:01 Gabapentin 600 Mg Tab PO 08/03/23 20:59 600 mg BID MOHAMUD Administration Heparin Sodium (Porcine) 5,000 units 07/07/23 14:00 07/10/23 06:49 Heparin Sod 5,000 Unit/0.5 Ml Vial SQ 08/06/23 13:59 5,000 units Q8 MOHAMUD Administration Daptomycin 450 mg/ Syringe 9 mls @ 4.5 mls/min 07/06/23 17:30 07/09/23 17:16 IV 07/13/23 17:29 4.5 mls/min Q24H MOHAMUD Administration Protocol Furosemide 100 mg/ Sodium 100 mls @ 10 mls/hr 07/08/23 11:00 07/10/23 02:40 Chloride IV 08/07/23 10:59 10 mg/hr .Q10H MOHAMUD 10 mls/hr Administration 10 MG/HR Insulin Aspart 0 units 07/04/23 15:34 07/10/23 09:19 Insulin Aspart Per Unit Charge SC 08/03/23 15:33 3 units ACHS MOHAMUD Administration Magnesium Chloride 64 mg 07/08/23 10:30 07/10/23 09:00 Magnesium Chloride W/Calcium 64mg Delayed Rel Tab PO 08/07/23 10:29 64 mg BID MOHAMUD Administration Melatonin 3 mg 07/04/23 21:00 07/09/23 21:09 Melatonin 3 Mg Tab PO 08/03/23 20:59 3 mg HS MOHAMUD Administration Metoprolol Succinate 12.5 mg 07/04/23 16:00 07/06/23 09:42 Metoprolol Succ 25mg Ext Rel Tab PO 08/03/23 15:59 12.5 mg QAM MOHAMUD Administration Miscellaneous 15 - 30 gm 07/04/23 15:34 07/07/23 08:21 Carbohydrates For Hypoglycemia PO 08/03/23 15:33 15 gm UD PRN Administration Hypoglycemia Protocol Sennosides 17.2 mg 07/05/23 10:10 07/06/23 09:41 Senna 8.6 Mg Tab PO 08/04/23 10:14 17.2 mg QAM PRN Administration constipation Spironolactone 12.5 mg 07/07/23 11:30 07/08/23 09:01 Spironolactone 12.5 Mg Tab PO 08/06/23 11:29 12.5 mg DAILY MOHAMUD Administration (2) Hypertension Hypertension type: unspecified Qualified Code(s): I10 - Essential (primary) hypertension (7) Type 2 diabetes mellitus, with long-term current use of insulin Diabetes mellitus complication status: without complication Qualified Code(s): E11.9 - Type 2 diabetes mellitus without complications; Z79.4 - correction (current) use of insulin
[2023-07-10 08:28] LABS: Base Excess VBG 21.2 mEq/L; HCO3 VBG 49 mmol/L; PCO2 VBG 70 mmHg (38-50); PO2 VBG 50 mmHg; pH VBG 7.45 (7.36-7.41)
[2023-07-10] MEDS ORDERED: METOCLOPRAMIDE HCL INJ 5 MG/ML 2 ML VIAL IV ONE (08:54)
[2023-07-10] MEDS: MAGNESIUM CHLORIDE W/CALCIUM 64MG DELAYED REL TAB PO SCH ×2 (09:00→23:09)
[2023-07-10] MEDS: CYANOCOBALAMIN (B-12) 500 MCG TABLET PO SCH (09:00)
[2023-07-10] MEDS: FLUoxetine HCL 20 MG CAP PO SCH (09:00)
[2023-07-10] MEDS: ASPIRIN 81 MG ECTAB PO SCH (09:00)
[2023-07-10] MEDS: INSULIN ASPART PER UNIT CHARGE SC SCH ×4 (09:19→20:58)
--- NOTE | 2023-07-10 09:59 | XRay Report ---
XR KUB/Abdomen 1 view CLINICAL HISTORY: diffuse abd pain TECHNIQUE: 1 view of the abdomen was obtained. Comparison: Comparison is made to abdomen radiographs 02/28/2022 FINDINGS: Cholecystomy clips are seen in the right upper quadrant. Degenerative changes are seen in the visuali zed skeleton. The bowel gas pattern is nonobstructive. Small stool burden is seen. IMPRESSION: Nonobstructive bowel gas pattern. ACT 112: Negative or not required by law. Electronically signed by: Loyd Arambula M.D. 07/10/2023 9:58 AM
--- NOTE | 2023-07-10 10:09 | Cardiology Progress Note ---
Date of Service July 10, 2023 Assessment & Plan (1) Acute on chronic heart failure with preserved ejection fraction (HFpEF): (2) Right heart failure: Plan This is a 53 year old female with a PMHx significant for insulin-dependent T2DM, diabetic neuropathy, diabetic nephropathy with CKD stage III, HTN, HLD, chronic HFpEF, morbid obesity, history necrotizing fasciitis, bilateral lower extremity lymphedema, iron deficiency anemia and left chronic heel ulcer who presented to the ED for worsening shortness of breath and lower extremity edema. Found to be in acute on chronic combined diastolic and right heart failure. 1. Acute on Chronic HFpEF, hypercapnia -Patient with vague stomach upset. Multiple formed stools yesterday. She states that she feels poorly. -She is -3.9 L for the last 24 hours and has had several days of very vigorous diuresis. -BPstill on the higher side, most recent measurement 166/68. Renal function stable. -Hold furosemide infusion due to generalized illness, appears worse clinically today compared to yesterday and 48 hrs ago. -Pt asking to eat chicken broth today. I think this OK . DVT prophylaxis: SQ heparin. Admission and Anticipated Discharge Date Admission Date: July 04, 2023 Subjective Patient seen in cardiology follow-up. She is currently in the bedside chair. She looks pale, tired, and washed out. Progressively worse over the last 2 days. Telemetry reveals sinus rhythm in the 80s. Physical Exam Constitutional: + ill appearing Respiratory: Auscultation: + diminished lung sounds (Mildly decreased breath sounds bilaterally at the bases); no crackles and no rales Cardiovascular: Rate/Rhythm: regular rate and regular rhythm Extremities: + edema (2+ bilateral lower extremity edema) Gastrointestinal (Abdomen): normal bowel sounds, soft, nontender, no hepatosplenomegaly Neurologic: PERRL, EOMI, accommodation nl, no face palsy, no dysarthria Results & Data Vital Signs (Past 12 Hours) Vital Signs Temp Pulse Pulse Resp BP BP Pulse Ox 07/10/23 08:04 07/10/23 07:52 36.6 C 82 16 166/68 H 97 07/10/23 02:16 36.5 C 71 18 175/79 H 97 07/09/23 23:52 37.0 C 76 18 149/66 H 96 07/09/23 22:23 75 O2 Del Method O2 Flow Rate 07/10/23 08:04 Nasal Cannula 2 07/10/23 07:52 Room Air 07/10/23 02:16 Nasal Cannula 2 07/09/23 23:52 Nasal Cannula 2 07/09/23 22:23 Laboratory Results CBC 07/10/23 Range/Units 06:00 WBC 5.10 (4.8-10.8) K/ul RBC 3.97 L (4.20-5.40) M/uL Hgb 11.0 L (12.0-16.0) g/dl Hct 36.5 L (37.0-47.0) % Plt Count 150 (130-400) K/uL Comprehensive Metabolic Panel 07/10/23 Range/Units 06:00 Sodium 145 (136-145) mmol/L Potassium 3.7 (3.5-5.1) mmol/L Chloride 97 L (98-107) mmol/L Carbon Dioxide 45 H* (21-32) mmol/L BUN 32 H (6-23) mg/dl Creatinine 0.91 (0.6-1.2) mg/dl Glucose 107 H (70-99(Fasting)) mg/dl Calcium 9.1 (8.6-10.3) mg/dl Intake and Output 07/09/23 07/10/23 07/10/23 22:59 06:59 14:59 Intake Total 154.5 / 807.666 341.833 / 807.666 Output Total 1575 / 4727 2451 / 4727 Balance -1420.5 / -3919.334 -2109.167 / -3919.334 Intake: IV 34.5 / 487.666 141.833 / 487.666 Furosemide 100 mg In 0.9 % 34.5 / 244.666 91.333 / 244.666 Sodium Chloride 90 ml @ 10 MG/ HR 10 mls/hr IV .Q10H MOHAMUD Rx#: [id number] Promethazine HCl 12.5 mg In 50.5 / 50.5 Sodium Chloride 0.9% 50 ml @ 202 mls/hr IV Q6H PRN Rx#: [id number] Oral 120 / 320 200 / 320 Output: Urine Amount (Catheter) 157 / 47 245 / 4725 [place]/Indwelling 157 / 47 245 / 47 # Bowel Movements 1 / 2 Other: Weight 151 kg Weight Measurement Method Built in [facility] (2) Right heart failure Heart failure chronicity: acute on chronic Qualified Code(s): I50.813 - Acute on chronic right heart failure
--- NOTE | 2023-07-10 11:23 | CT Scan Report ---
CT head/brain wo con CLINICAL HISTORY: reynolds Technique: Contiguous axial CT images of the head were acquired from the base of the skull to the carson laura without intravenous contrast administration. Images were viewed in brain, subdural and [facility]. Automated dose lowering techniques and/or adjustment according to patient size were utilized for this exam. Comparison: None available at the time of this dictation. Findings: The ventricles, basal cisterns, and cerebral sulci are normal. There is no acute intracranial hemorrh age or evidence of acute territorial infarction. Neither mass effect, shift of the midline structures , nor abnormal extra-axial fluid collections are shown. Imaged portions of the paranasal sinuses and mastoid air cells are clear. The orbits appear normal. There are no acute fractures of the calvaria or scalp swelling. Impression: No acute intracranial hemorrhage, no evidence of acute territorial infarction or other acute intracra nial disease process. ACT 112: Negative or not required by law. Electronically signed by: Loyd Arambula M.D. 07/10/2023 11:22 AM
--- NOTE | 2023-07-10 11:53 | CT Scan Report ---
CT abd pelvis wo con CLINICAL HISTORY: abd pain TECHNIQUE: Helical axial images of the abdomen and pelvis were obtained. Automated dose lowering tech niques and/or adjustment according to patient size were utilized for this exam. This exam was perfor med without intravenous contrast. COMPARISON: Comparison is made to CT abdomen pelvis 04/09/2023 FINDINGS: Lower chest: Small bilateral pleural effusions with underlying atelectasis. Liver: Unremarkable. No focal lesions are seen. Gallbladder and biliary tree: Patient is status post cholecystectomy. No intra- or extrahepatic bilia ry ductal dilation. Pancreas: Unremarkable, no focal lesions. Spleen: Splenomegaly is noted, the spleen measures 13.5 mm. Adrenals: Unremarkable. Kidneys and ureters: Unremarkable. Bladder: Heaton catheter is seen. Reproductive organs: Unremarkable. Bowel: Diverticulosis is seen without evidence of diverticulitis. The appendix is normal.. Lymph nodes Retroperitoneal: Unremarkable. Pelvic: Prominent subcentimeter inguinal nodes are noted. Mesenteric: Unremarkable. Peritoneum: Trace pelvic fluid fluid is seen, likely physiologic. Vessels: Unremarkable. Abdominal wall: Unremarkable. Bones: Degenerative changes in the visualized spine. IMPRESSION: 1. No acute abnormalities. 2. Diverticulosis without diverticulitis. 3. Additional findings as above. ACT 112: Negative or not required by law. Electronically signed by: Loyd Arambula M.D. 07/10/2023 11:51 AM
[2023-07-10] MEDS: bisacodyL 10 MG SUPP PR STA ×2 (12:09→12:13)
[2023-07-10] MEDS ORDERED: HYDROCORTISONE HC 2.5% CRM 30GM TUBE EXT PRN (12:30)
[2023-07-10] MEDS ORDERED: PANTOprazole 40 MG in SYRINGE 0 ML IV ONE (14:30)
[2023-07-10] MEDS: ENALAPRILAT 1.25 MG in DEXTROSE 5% 25 ML IV SCH (14:47)
[2023-07-10 15:12] LABS: Albumin Level 2.3 gm/dl (3.4-5.0); Bilirubin Direct 0.1 mg/dl (0-0.2); Bilirubin,Total 0.4 mg/dl (0.2-1.0); Total Protein 4.8 gm/dl (6.0-8.3)
[2023-07-10] MEDS: METOCLOPRAMIDE HCL INJ 5 MG/ML 2 ML VIAL IV SCH ×2 (15:18→23:11)
[2023-07-10] MEDS: DAPTOmycin 450 MG in SYRINGE 0 ML IV SCH (16:53)
[2023-07-10] MEDS ORDERED: LANTUS PER UNIT CHARGE SQ SCH (21:00)
[2023-07-10] MEDS: MELATONIN 3 MG TAB PO SCH (23:09)
[2023-07-10] MEDS: PANTOprazole 40 MG in SYRINGE 0 ML IV SCH (23:10)
[2023-07-10] MEDS: hydrALAZINE HCL 25 MG TAB PO SCH (23:17)
[2023-07-11] MEDS: ENALAPRILAT 1.25 MG in DEXTROSE 5% 25 ML IV SCH ×2 (00:05→05:56)
[2023-07-11] MEDS: PROMETHAZINE HCL 12.5 MG in SODIUM CHLORIDE 0.9% 50 ML IV PRN ×2 (01:17→21:51)
[2023-07-11] MEDS: METOCLOPRAMIDE HCL INJ 5 MG/ML 2 ML VIAL IV SCH ×4 (03:54→21:52)
[2023-07-11] MEDS: HEPARIN SOD 5,000 UNIT/0.5 ML VIAL SQ SCH ×3 (05:56→21:47)
[2023-07-11 06:30] LABS: Hematocrit (blood only) 37.4 % (37.0-47.0); Hemoglobin 11.2 g/dl (12.0-16.0); Mean Corpuscular Hemoglobin 27.5 pg (25.0-34.0); Mean Corpuscular Hgb Conc 29.9 g/dL (32.0-36.0); Mean Corpuscular Volume 91.9 fL (80.0-100.0); Mean Platelet Volume 11.5 fL (9.4-12.4); Platelet Count 158 K/uL (130-400); RDW Coefficient of Variation 15.3 % (11.5-14.5); RDW Standard Deviation 51.2 fL (36.4-46.3); Red Blood Count 4.07 M/uL (4.20-5.40); White Blood Count 5.62 K/ul (4.8-10.8)
[2023-07-11 06:46] LABS: BUN Creatinine Ratio 28.3 (10-20); Calcium 9.1 mg/dl (8.6-10.3); Creatinine Clr Calc Pharmacy 101.1 ml/min; Est GFR (African American) 74.9 ml/min; Est GFR (Non-African American) 64.6 ml/min; Magnesium 1.7 mg/dl (1.7-2.4); Phosphorus 3.5 mg/dl (2.5-4.9); Potassium 3.7 mmol/L (3.5-5.1)
--- NOTE | 2023-07-11 07:55 | Cardiology Progress Note ---
Date of Service July 11, 2023 Assessment & Plan (1) Acute on chronic heart failure with preserved ejection fraction (HFpEF): (2) Right heart failure: (3) Hypertension: Plan IMPRESSION: 53 year old female with a PMHx significant for insulin-dependent T2DM, diabetic neuropathy, diabetic nephropathy with CKD stage III, HTN, HLD, chronic HFpEF, morbid obesity, history necrotizing fasciitis, bilateral lower extremity lymphedema, iron deficiency anemia and left chronic heel ulcer who presented to the ED for worsening shortness of breath and lower extremity edema. Found to be in acute on chronic combined diastolic and right heart failure. PLAN: Acute on Chronic HFpEF -Patient remains volume overloaded, but continues to have massive diuresis despite Lasix gtt being on hold. -1L over the last 24 hrs. -Continue to closely monitor renal and electrolytes. Potassium goal of 4.0 and mag goal of 2.0. -Consideration to add Aldactone and/or Jardiance pending clinical course-- will hold off at this time due to aggressive diuresis. -TTE shows RV dysfunction and D-shaped septum likely 2/2 chronically elevated left sided filling pressures-- Study completed 07/07-07/08 positive for nocturnal hypoxia with sats down into the 60s-80s%. Continue PAP during sleep. -Hold beta andrea due to bradycardia and RHF. -Strict I&O, 2g sodium diet, +1500 mL fluid restriction -CHF education -Wean O2 as tolerated. Hypertension: Blood pressures trending on the higher side. DVT prophylaxis: SQ heparin. Case discussed with Dr. Pack- will follow. I spent a total of 30 minutes on the date of service in preparation, delivery, and documentation of the care provided to this patient, excluding any time spent in the performance of separately billed services. Admission and Anticipated Discharge Date Admission Date: July 04, 2023 Supervising Physician Co-Signing Physician Notes Supervising Physician Attestation: I have personally performed a history and physical examination on the patient. I agree with the physician pizza hut assistant's findings and plan as documented with the following additions. Subjective: Patient feeling subjectively improved today. Exam: Cardiovascular regular rhythm, no murmurs, 2+ lower extremity edema Assessment and Plan: Acute on chronic right heart failure, obesity hypoventilation syndrome -Patient with loose bowels, generalized ill feeling on 07/10/2023 prompting furosemide infusion to be discontinued. -Blood pressure had trended up prompting reinitiation of hydralazine 25 mg 3 times daily 07/10/2020 3 in the evening, and lisinopril 10 mg initiated today. -Present diuretics, with IV bolus therapy, 60 mg IV x1 now and twice daily thereafter, next dose at 2100 tonight. DVT prophylaxis: Subcutaneous heparin DVT prophylaxis: [] I spent a total of [] minutes on the date of service in preparation, delivery, and documentation of the care provided to this patient, excluding any time spent in the performance of separately billed services. Jayce Pack, DO Subjective 53-year-old female who initially presented to [facility] emergency department due to worsening shortness of breath and lower extremity edema. Found to be in extre beverley hypervolemic in acute on chronic diastolic CHF. Echocardiogram revealed preserved LV systolic function of 55 to 60% with grade 1 diastolic dysfunction and no wall motion abnormalities. Severe RV dysfunction with a D-shaped septum as well as severe TR with moderate pulmonary hypertension with a PASP of 52 mmHg. 07/06/2023: Massively volume overloaded -- 200 mg of IV Lasix given and Lasix drip started at 20 mg/hr Metoprolol held due to bradycardia. Nephrology consulted for DAHLIA/CKD. Baseline creatinine around 1.4, admitting creatinine 1.8. Hydralazine and gabapentin held-due to concerns for worsening edema. Rocephin started on 07/04 for UTI Lower extremity cellulitis-- Wound culture obtained. Vanco started. 07/07/2023: Patient remained markedly volume overloaded, continued on Lasix drip 20 mg/hr. Aldactone 12.5 mg daily started. Metoprolol succinate held due to bradycardia and right heart failure Nocturnal pulse oximetry was positive for nocturnal hypoxia with desaturations between 60 and 80%. 07/08/2023: Massive diuresis over the last 24 hours of approximately -11 L. BUN and serum creatinine within normal limits however bicarb was rising--Lasix drip reduced to 10 mg/hr. Aldactone held. Prolactin 12 and half milligrams daily continue 07/09/2023: Ongoing diuresis with Lasix gtt at 10 mg/hr 07/10/2023: Clinically felt poor with vague stomach upset and multiple formed stools. Patient was -3.9 L over the last 24 hours. Furosemide infusion held due to generalized illness. 07/11/2023: Upon entrance into the room patient resting in bed. Head of bed flat. Notes improvement in shortness of breath, no orthopnea or PND. Main concern is general malaise. Has been having multiple liquid stools. Sent for C. difficile which was negative. Nurse mentions concern regarding blood in the stool yesterday--none seen this morning. She denies chest pain. No palpitations or lightheadedness. Tele: NSR with IVCD 60-70s I&O: -29.6L total (-1 L over last 24 hours) Weight: 176.6>>168.2 kg >> 163.7 kg >> 155.2 kg >> 147.2 kg Labs: BUN and Scr stable/improved-- Scr 0.99 BUN 28. Potassium 3.7-- supplemented. Mag low at 1.7-- started on daily replacement by nephrology. Review of Systems Review of Systems: All systems reviewed & are unremarkable except as noted in HPI & below Physical Exam Constitutional: WD/WN, vitals as above + ill appearing and + obese; no acute distress Respiratory: normal respiratory effort; no cough Auscultation: + rales; no rhonchi and no wheezes Cardiovascular: Rate/Rhythm: regular rate and regular rhythm Heart Sounds: normal S1 (distant heart sounds ) and normal S2 Vessels: + JVD Extremities: + edema (+3 BLLE pitting edema to thighs, abdomen) Gastrointestinal (Abdomen): Inspection/Auscultation: + abdomen distended Psychiatric: Orientation: alert and oriented x 3 Results & Data Vital Signs (Past 12 Hours) Vital Signs Temp Pulse Pulse Resp BP BP Pulse Ox 07/11/23 03:40 36.6 C 80 16 154/73 H 92 07/10/23 23:13 36.4 C L 69 18 162/75 H 96 07/10/23 21:58 72 07/10/23 20:30 O2 Del Method O2 Flow Rate 07/11/23 03:40 Nasal Cannula 2 07/10/23 23:13 Nasal Cannula 2 07/10/23 21:58 07/10/23 20:30 Nasal Cannula 2 Laboratory Results Cardiac Enzymes 07/10/23 Range/Units 14:41 AST 11 L (13-39) U/L CBC 07/11/23 Range/Units 05:59 WBC 5.62 (4.8-10.8) K/ul RBC 4.07 L (4.20-5.40) M/uL Hgb 11.2 L (12.0-16.0) g/dl Hct 37.4 (37.0-47.0) % Plt Count 158 (130-400) K/uL Comprehensive Metabolic Panel 07/10/23 07/11/23 Range/Units 14:41 05:59 Sodium 145 (136-145) mmol/L Potassium 3.7 (3.5-5.1) mmol/L Chloride 97 L (98-107) mmol/L Carbon Dioxide 43 H* (21-32) mmol/L BUN 28 H (6-23) mg/dl Creatinine 0.99 (0.6-1.2) mg/dl Glucose 94 (70-99(Fasting)) mg/dl Calcium 9.1 (8.6-10.3) mg/dl Direct Bilirubin 0.1 (0-0.2) mg/dl AST 11 L (13-39) U/L ALT 8 (7-52) U/L Alkaline Phosphatase 54 (34-104) U/L Total Protein 4.8 L (6.0-8.3) gm/dl Albumin 2.3 L (3.4-5.0) gm/dl Intake and Output 07/10/23 07/11/23 07/11/23 22:59 06:59 14:59 Intake Total 126 / 1018.5 102.5 / 1018.5 Output Total 2049 Balance -274 / -1031.5 -147.5 / -1031.5 Intake: IV 126 / 228.5 102.5 / 228.5 Enalaprilat 1.25 mg In Dextrose / 78 52 / 78 5% 25 ml @ 100 mls/hr IV Q8H MOHAMUD Rx#:[id number] Furosemide 100 mg In 0.9 % 100 / 100 Sodium Chloride 90 ml @ 10 MG/ HR 10 mls/hr IV .Q10H MOHAMUD Rx#: [id number] Promethazine HCl 12.5 mg In 50.5 / 50.5 Sodium Chloride 0.9% 50 ml @ 202 mls/hr IV Q6H PRN Rx#: [id number] Output: Urine Amount (Catheter) 400 / 0 250 / 2050 Heaton/Indwelling 2049 Other: Weight 147.2 kg Weight Measurement Method Built in [facility] (2) Right heart failure Heart failure chronicity: acute on chronic Qualified Code(s): I50.813 - Acute on chronic right heart failure (3) Hypertension Hypertension type: unspecified Qualified Code(s): I10 - Essential (primary) hypertension
[2023-07-11] MEDS: FLUoxetine HCL 20 MG CAP PO SCH (08:44)
[2023-07-11] MEDS: hydrALAZINE HCL 25 MG TAB PO SCH ×3 (08:44→22:42)
[2023-07-11] MEDS: ASPIRIN 81 MG ECTAB PO SCH (08:44)
[2023-07-11] MEDS: MAGNESIUM CHLORIDE W/CALCIUM 64MG DELAYED REL TAB PO SCH ×2 (08:44→21:51)
[2023-07-11] MEDS: CYANOCOBALAMIN (B-12) 500 MCG TABLET PO SCH (08:44)
[2023-07-11] MEDS: PANTOprazole 40 MG in SYRINGE 0 ML IV SCH ×2 (08:45→21:50)
[2023-07-11] MEDS ORDERED: lisinopril 10 MG TAB PO SCH (09:00)
[2023-07-11] MEDS: INSULIN ASPART PER UNIT CHARGE SC SCH ×4 (09:08→20:54)
[2023-07-11] MEDS ORDERED: FUROSEMIDE 40 MG/4 ML VIAL IV ONE (10:30)
--- NOTE | 2023-07-11 10:41 | Nephrology Progress Note ---
Date of Service July 11, 2023 Assessment & Plan Admission and Anticipated Discharge Date Admission Date: July 04, 2023 Subjective Assessment & Plan (1) Acute on chronic renal insufficiency: Plan: nonoliguric stage 1 DAHLIA on CKD 3 > baseline creatinine 1.4-1.5 most recently. prerenal versus ATN; cannot rule out glomerular process w/ volume overload. rapidly progressive ckd as below; now stage 3 after no CKD as recently as August 2022. Creat improved to normal despite massive diuresis last 5 days -Continue on low K diet -daily bmp (3) CHF (congestive heart failure): Seems Chronic. Mostly RT ventricle type. Strong Chance of Severe YVROSE. ABG and VBG shows Co2 retention and Compensated picture. recommend Night Bipap Can add Aldactone now Bicarb is Somewhat high but ABG and VBG shows Co2 retention and Compensated picture. No need to add diamox. She reall needs night time Bipap mag is borderline low but Super difficult to have venous access. NO need of Iv mag . Can give oral mag bid 64 mg . Seems like 60 iv bid is not enough dose for her. masive drop in urine output since the chhange. recommend to increase it to lasix 80 iv q8h. S--has some nausea but no vomiting. Did not get Bipap last night because of that. Breathing feels better. 2050 ml urine yesterday--from 4.7-8.0-12 liters last few days. Off lasix gtt and on lasix 60 iv bid. Physical Exam Constitutional: Chronic ill appearing and ++ obese; no acute distress at rest Respiratory: normal respiratory effort Auscultation: + rales and + rhonchi; no wheezes Cardiovascular: Rate/Rhythm: regular rate and regular rhythm Heart Sounds: normal S1 (distant heart sounds ) and normal S2 Vessels: + JVD Extremities: + edema (+4 pitting edema to thighs, abdomen, and pre-sacral region ) Gastrointestinal (Abdomen): Inspection/Auscultation: + abdomen distended and + abdominal edema Psychiatric: A+Ox3, euthymic affect Results & Data Vital Signs (Past 12 Hours) Vital Signs Temp Pulse Pulse Resp BP BP Pulse Ox 07/11/23 10:26 77 07/11/23 07:55 37.2 C 86 20 154/77 H 96 07/11/23 07:43 07/11/23 03:40 36.6 C 80 16 154/73 H 92 07/10/23 23:13 36.4 C L 69 18 162/75 H 96 O2 Del Method O2 Flow Rate 07/11/23 10:26 07/11/23 07:55 Nasal Cannula 3 07/11/23 07:43 Nasal Cannula 3 07/11/23 03:40 Nasal Cannula 2 07/10/23 23:13 Nasal Cannula 2
--- NOTE | 2023-07-11 10:49 | Gastrointestinal Consultation ---
Date of Consultation July 11, 2023 Assessment & Plan (1) Nausea: She has nausea that she says started after she was admitted to the hospital. Most nausea is related to other issues than the GI tract such as medications and other disease processes. She is diabetic but has never had issues with diabetic gastroparesis so I don't think that is the issue here. My thoughts are it is related to fluid overload or medications being used to treat it. I don't think EGD is needed with the lack of pain but it could be done if the need arises. I would like to see how her nausea goes as her overall condition gets under control. She has also bounced between constipation and diarrhea. She has sennokot on order and her last dose was given a few days ago. Her intake is irregular so her bowel movements will be irregular. C. diff is negative so I think our goal should be to keep her bowel movements looser than letting her get impacted. Will follow and see how things go as her condition gets better. History of Present Illness Reason for Consultation: nausea, bowel movement issues Attending Physician: Dian Howard MD History of Present Illness 53 year old female with history of diabetes, necrotizing fasciitis and CHF. I am asked to see her regarding nausea. She tells me the nausea started probably Friday of this week and has been intermittent. She was admitted to the hospital on Friday she thinks. She also has issues with her bowel movements. At one time they thought she was constipated/impacted and then she developed diarrhea. She is currently having frequent loose stools. Allergies Allergy/AdvReac Type Severity Reaction Status Date / Time No Known Allergies Allergy Unknown Verified 04/28/23 19:53 Home Medications Medication Instructions Recorded Confirmed Type aspirin 81 mg tablet,delayed 81 mg PO QAM 03/14/22 07/04/23 History release ferrous sulfate 325 mg (65 mg 325 mg PO DAILY 03/14/22 07/04/23 History iron) tablet furosemide 40 mg tablet (Lasix) 40 mg PO QAM 05/17/22 07/04/23 History insulin detemir U-100 100 unit/mL 27 unit subcut BID 05/17/22 07/04/23 History subcutaneous solution (Levemir U-100 Insulin) insulin lispro 100 unit/mL 10 unit subcut AC 05/17/22 07/04/23 History subcutaneous solution acetaminophen 500 mg tablet 1,000 mg PO Q6H PRN Pain 03/13/23 07/04/23 History (Tylenol Extra Strength) cyanocobalamin (vitamin B-12) 1,000 mcg PO DAILY 03/13/23 07/04/23 History 1,000 mcg tablet (Vitamin B-12) metoprolol succinate 25 mg 25 mg PO QAM 03/13/23 07/04/23 History tablet,extended release 24 hr gabapentin 600 mg tablet 600 mg PO BID #60 tabs 05/08/23 07/04/23 Rx fluoxetine 20 mg capsule (Prozac) 20 mg PO DAILY 07/04/23 07/04/23 History hydralazine 50 mg tablet 50 mg PO QAM 07/04/23 07/04/23 History melatonin 3 mg tablet 3 mg PO HS 07/04/23 07/04/23 History Patient History Medical History CKD (chronic kidney disease) stage 3, GFR 30-59 ml/min Cellulitis of left lower extremity Anemia Personal history of diabetic foot ulcer Loss of protective sensation of skin of foot Type 2 diabetes mellitus with complications Type 2 diabetes mellitus, with long-term current use of insulin Diabetic peripheral neuropathy associated with type 2 diabetes mellitus Diabetes type 2, uncontrolled Vitamin D deficiency Dyslipidemia Back pain Xerosis cutis Varicose veins of both lower extremities Obesity Insomnia Hirsutism Fatigue Dysfunctional uterine bleeding Depression with anxiety Tobacco use HTN (hypertension) History of DVT (deep vein thrombosis) Surgical History History of incision and drainage left foot by Dr. Haq on 10-03-19. H/O tooth extraction History of cholecystectomy History of facial surgery History of nasal polypectomy History of endometrial ablation History of tubal ligation History of hysterectomy History of Family History Father Dyslipidemia Prostate cancer Diabetes Lung cancer Mother Lung cancer Hypothyroidism Brother Coronary heart disease Asthma Grandfather (Maternal) Myocardial infarction Grandmother (Maternal) Myocardial infarction Grandmother (Paternal) Breast cancer Diabetes Social History Smoking Status: Former smoker Tobacco Type: Cigarettes Hx Alcohol Use: No Hx Substance Use: No Preferred Language: Turkmen Communication Ability: Effective 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 She has home health nurses. Feels Safe at Home: Yes Assistive Devices: Walker Review of Systems Review of Systems: All systems reviewed & are unremarkable except as noted in HPI & below Physical Exam Constitutional: + morbidly obese; not in distress Neck: trachea midline, no thyromegaly Respiratory: normal respiratory effort, lungs clear to auscultation Cardiovascular: RRR, no murmur, no edema Gastrointestinal (Abdomen): normal bowel sounds, soft, nontender, no hepatosplenomegaly Results & Data Vital Signs (Past 12 Hours) Vital Signs Temp Pulse Pulse Resp BP BP Pulse Ox 07/11/23 10:26 77 07/11/23 07:55 37.2 C 86 20 154/77 H 96 07/11/23 07:43 07/11/23 03:40 36.6 C 80 16 154/73 H 92 07/10/23 23:13 36.4 C L 69 18 162/75 H 96 O2 Del Method O2 Flow Rate 07/11/23 10:26 07/11/23 07:55 Nasal Cannula 3 07/11/23 07:43 Nasal Cannula 3 07/11/23 03:40 Nasal Cannula 2 07/10/23 23:13 Nasal Cannula 2 Laboratory Results 07/11/23 07/11/23 07/10/23 Range/Units 08:18 05:59 20:00 WBC 5.62 (4.8-10.8) K/ul RBC 4.07 L (4.20-5.40) M/uL Hgb 11.2 L (12.0-16.0) g/dl Hct 37.4 (37.0-47.0) % MCV 91.9 (80.0-100.0) fL MCH 27.5 (25.0-34.0) pg MCHC 29.9 L (32.0-36.0) g/dL RDW Std Deviation 51.2 H (36.4-46.3) fL RDW Coeff of Mya 15.3 H (11.5-14.5) % Plt Count 158 (130-400) K/uL MPV 11.5 (9.4-12.4) fL Sodium 145 (136-145) mmol/L Potassium 3.7 (3.5-5.1) mmol/L Chloride 97 L (98-107) mmol/L Carbon Dioxide 43 H* (21-32) mmol/L Anion Gap 5 (3-11) BUN 28 H (6-23) mg/dl Creatinine 0.99 (0.6-1.2) mg/dl Est Cr Clr Drug Dosing 101.1 ml/min Est GFR ( Amer) 74.9 ml/min Est GFR (Non-Af Amer) 64.6 ml/min BUN/Creatinine Ratio 28.3 H (10-20) Glucose 94 (70-99(Fasting)) mg/dl POC Glucose 100 H 91 (70-99) mg/dl Calcium 9.1 (8.6-10.3) mg/dl Phosphorus 3.5 (2.5-4.9) mg/dl Magnesium 1.7 (1.7-2.4) mg/dl Total Bilirubin (0.2-1.0) mg/dl Direct Bilirubin (0-0.2) mg/dl AST (13-39) U/L ALT (7-52) U/L Alkaline Phosphatase (34-104) U/L Total Protein (6.0-8.3) gm/dl Albumin (3.4-5.0) gm/dl Stl C. diff Tox B Gene (Neg) 07/10/23 07/10/23 07/10/23 Range/Units 17:17 14:41 12:30 WBC (4.8-10.8) K/ul RBC (4.20-5.40) M/uL Hgb (12.0-16.0) g/dl Hct (37.0-47.0) % MCV (80.0-100.0) fL MCH (25.0-34.0) pg MCHC (32.0-36.0) g/dL RDW Std Deviation (36.4-46.3) fL RDW Coeff of Mya (11.5-14.5) % Plt Count (130-400) K/uL MPV (9.4-12.4) fL Sodium (136-145) mmol/L Potassium (3.5-5.1) mmol/L Chloride (98-107) mmol/L Carbon Dioxide (21-32) mmol/L Anion Gap (3-11) BUN (6-23) mg/dl Creatinine (0.6-1.2) mg/dl Est Cr Clr Drug Dosing ml/min Est GFR ( Amer) ml/min Est GFR (Non-Af Amer) ml/min BUN/Creatinine Ratio (10-20) Glucose (70-99(Fasting)) mg/dl POC Glucose 105 H 120 H (70-99) mg/dl Calcium (8.6-10.3) mg/dl Phosphorus (2.5-4.9) mg/dl Magnesium (1.7-2.4) mg/dl Total Bilirubin 0.4 (0.2-1.0) mg/dl Direct Bilirubin 0.1 (0-0.2) mg/dl AST 11 L (13-39) U/L ALT 8 (7-52) U/L Alkaline Phosphatase 54 (34-104) U/L Total Protein 4.8 L (6.0-8.3) gm/dl Albumin 2.3 L (3.4-5.0) gm/dl Stl C. diff Tox B Gene (Neg) 07/10/23 Range/Units 06:35 WBC (4.8-10.8) K/ul RBC (4.20-5.40) M/uL Hgb (12.0-16.0) g/dl Hct (37.0-47.0) % MCV (80.0-100.0) fL MCH (25.0-34.0) pg MCHC (32.0-36.0) g/dL RDW Std Deviation (36.4-46.3) fL RDW Coeff of Mya (11.5-14.5) % Plt Count (130-400) K/uL MPV (9.4-12.4) fL Sodium (136-145) mmol/L Potassium (3.5-5.1) mmol/L Chloride (98-107) mmol/L Carbon Dioxide (21-32) mmol/L Anion Gap (3-11) BUN (6-23) mg/dl Creatinine (0.6-1.2) mg/dl Est Cr Clr Drug Dosing ml/min Est GFR ( Amer) ml/min Est GFR (Non-Af Amer) ml/min BUN/Creatinine Ratio (10-20) Glucose (70-99(Fasting)) mg/dl POC Glucose (70-99) mg/dl Calcium (8.6-10.3) mg/dl Phosphorus (2.5-4.9) mg/dl Magnesium (1.7-2.4) mg/dl Total Bilirubin (0.2-1.0) mg/dl Direct Bilirubin (0-0.2) mg/dl AST (13-39) U/L ALT (7-52) U/L Alkaline Phosphatase (34-104) U/L Total Protein (6.0-8.3) gm/dl Albumin (3.4-5.0) gm/dl Stl C. diff Tox B Gene Negative Cdiff Gene (Neg) Diagnostic Findings Chest X-Ray 07/04/23 08:25 XR chest 1V portable HISTORY: shortness of breath COMPARISON: Chest 04/28/2023. FINDINGS: There are low lung volumes. The heart is mildly enlarged. There is progressive perihilar interstitial/vascular thickening consistent with mild congestive change. No new focal lung consolidations to suggest a pneumonia. Small linear scarlike density within the left upper lobe persists. No acute fractures identified. No pneumothorax. No pleural effusions. IMPRESSION: Cardiomegaly and mild central pulmonary vascular congestion without overt edema. This has slightly progressed in the interval. ACT 112: Negative or not required by law. Electronically signed by: Tee Huerta M.D. 07/04/2023 9:52 AM Abdomen/Pelvis CT 07/10/23 02:19 CT abd pelvis wo con CLINICAL HISTORY: abd pain TECHNIQUE: Helical axial images of the abdomen and pelvis were obtained. Automated dose lowering techniques and/or adjustment according to patient size were utilized for this exam. This exam was performed without intravenous contrast. COMPARISON: Comparison is made to CT abdomen pelvis 04/09/2023 FINDINGS: Lower chest: Small bilateral pleural effusions with underlying atelectasis. Liver: Unremarkable. No focal lesions are seen. Gallbladder and biliary tree: Patient is status post cholecystectomy. No intra- or extrahepatic biliary ductal dilation. Pancreas: Unremarkable, no focal lesions. Spleen: Splenomegaly is noted, the spleen measures 13.5 mm. Adrenals: Unremarkable. Kidneys and ureters: Unremarkable. Bladder: Heaton catheter is seen. Reproductive organs: Unremarkable. Bowel: Diverticulosis is seen without evidence of diverticulitis. The appendix is normal.. Lymph nodes Retroperitoneal: Unremarkable. Pelvic: Prominent subcentimeter inguinal nodes are noted. Mesenteric: Unremarkable. Peritoneum: Trace pelvic fluid fluid is seen, likely physiologic. Vessels: Unremarkable. Abdominal wall: Unremarkable. Bones: Degenerative changes in the visualized spine. IMPRESSION: 1. No acute abnormalities. 2. Diverticulosis without diverticulitis. 3. Additional findings as above. ACT 112: Negative or not required by law. Electronically signed by: Loyd Arambula M.D. 07/10/2023 11:[address] 07/10/23 02:19 CT head/brain wo con CLINICAL HISTORY: reynolds Technique: Contiguous axial CT images of the head were acquired from the base of the skull to the vertex without intravenous contrast administration. Images were viewed in brain, subdural and bone windows. Automated dose lowering techniques and/or adjustment according to patient size were utilized for this exam. Comparison: None available at the time of this dictation. Findings: The ventricles, basal cisterns, and cerebral sulci are normal. There is no acute intracranial hemorrhage or evidence of acute territorial infarction. Neither mass effect, shift of the midline structures, nor abnormal extra-axial fluid collections are shown. Imaged portions of the paranasal sinuses and mastoid air cells are clear. The orbits appear normal. There are no acute fractures of the calvaria or scalp swelling. Impression: No acute intracranial hemorrhage, no evidence of acute territorial infarction or other acute intracranial disease process. ACT 112: Negative or not required by law. Electronically signed by: Loyd Arambula M.D. 07/10/2023 11:22 AM KUB X-Ray 07/10/23 08:54 XR KUB/Abdomen 1 view CLINICAL HISTORY: diffuse abd pain TECHNIQUE: 1 view of the abdomen was obtained. Comparison: Comparison is made to abdomen radiographs 02/28/2022 FINDINGS: Cholecystomy clips are seen in the right upper quadrant. Degenerative changes are seen in the visualized skeleton. The bowel gas pattern is nonobstructive. Small stool burden is seen. IMPRESSION: Nonobstructive bowel gas pattern. ACT 112: Negative or not required by law. Electronically signed by: Loyd Arambula M.D. 07/10/2023 9:58 AM
[2023-07-11] MEDS: FUROSEMIDE 40 MG/4 ML VIAL IV SCH ×2 (11:31→21:46)
--- NOTE | 2023-07-11 13:34 | Pharmacy Report ---
Pharmacy Glycemic Short Note 2 - Date of Service July 11, 2023 - Glycemic Short BSG Results (Last 24 hours): 07/10/23 07/10/23 07/11/23 17:17 20:00 05:59 Glucose 94 POC Glucose 105 H 91 07/11/23 07/11/23 08:18 12:30 Glucose POC Glucose 100 H 139 H OUTPATIENT ANTIDIABETIC REGIMEN: * Levemir 27 units bid, lispro 10 units AC ASSESSMENT: 07/11/23 * BSGs yesterday [id number] mg/dL. Patient received 16 units of insulin (10 units of basal and 6 units of bolus). * Today's BSGs are 100-139. * Patient's Lasix increased to 80 mg IV q8 hours. PO intake reduced. * Reduce last to 8 units if BSG < 140 mg/dL. * Continue Novolog as BSGs steady. 07/09/23 * BSGs yesterday were [phone] mg/dL. Patient received 32 units of insulin (20 units of basal and 12 units of bolus). * Fasting today is 102 mg/dL. * Decrease Lantus to 15 units nightly. * Continue Novolog as BSGs relatively stable. BACKGROUND * 53 year old admitted with DAHLIA and CHF. Pharmacy consulted for glycemic manag ement. Patient's blood sugars low this morning, provider held AM basal insulin. BSGs continue to be low at lunch time, despite held AM basal and only 2 units novolog given at breakfast * Patient received total of 67 units yesterday, of which 54 units were basal. Regimen heavily basal weighted, possibly contributing to lower BSGs today - plan to decrease basal dose by ~50-60% and redose tonight. Removed CR for today for now until BSGs start to recover PLAN FOR INPATIENT GLYCEMIC CONTROL: * Hold outpatient oral diabetes medications * Basal insulin * Lantus 8 units hs (10 units if BSG > 140 mg/dL) * Bolus insulin * NovoLog per scale ACHS or Q6hrs while NPO * Goal Range: Low 120 mg/dL - High 160 mg/dL * Correction Factor: 25 mg/dL/unit * Nutritional / Prandial insulin per carb ratio of 1 unit per 8 grams CHO consumed
[2023-07-11] MEDS ORDERED: lisinopril 10 MG TAB PO STA (16:31)
[2023-07-11] MEDS ORDERED: LOPERAMIDE HCL 2 MG CAP PO STA (16:32)
[2023-07-11] MEDS: DAPTOmycin 450 MG in SYRINGE 0 ML IV SCH (16:59)
[2023-07-11] MEDS ORDERED: FUROSEMIDE 40 MG/4 ML VIAL IV SCH (17:00)
--- NOTE | 2023-07-11 18:03 | Hospitalist Progress Note ---
Date of Service July 11, 2023 Assessment & Plan (1) CHF (congestive heart failure): (2) Hypertension: (3) Diabetic ulcer of foot associated with type 2 diabetes mellitus, with bone involvement without evidence of necrosis: (4) Lymphedema of both lower extremities: (5) Anemia: (6) UTI (urinary tract infection): (7) Type 2 diabetes mellitus, with long-term current use of insulin: (8) Diabetic peripheral neuropathy associated with type 2 diabetes mellitus: (9) Obesity: Plan: Ms. Rand is a 53-year-old male with PMH of insulin-dependent T2DM, diabetic neuropathy, diabetic nephropathy with CKD stage III, HTN, HLD, HFpEF, morbid obesity, necrotizing fasciitis, bilateral lower extremity lymphedema, TRACI, left chronic heel ulcer presented to the ED for generalized swelling/increased edema of BLE and not feeling well. She is being managed for the following #Nausea #Relative hypoglycemia #Multiple BM -history of impaction, generalized abdominal pain -Will trial reglan for nausea/promotility iso diabetes -KUB with stool burden, concern for impending impaction given recent history of such, 1x bisacodyl suppository -CTM with liquid diet, ADT -Cards resumed lasix q8h -c diff sent negative -?relative hypoglycemia contributing, POC in low 100s--quite low given A1C 10% --reduce glargine--doing better with juice intake #Hypertension -Antihypertensives held thus far given aggressive diuresis -Start lisinopril, increase 20mg qam #Acute exacerbation of heart failure with preserved ejection fraction #Acute Right heart failure Upon chart review, patient's weight of 146 kg on 05/08/2023, presenting weight at 176.6 kg on 07/04/2023. Admitting CXR with pulmonary vascular congestion, at admission : 2-3+ pitting edema BLE along with her chronic lymphedema and UE pitting edema noted. Patient's home Lasix was increased from 20mg to 40 mg the day prior to arrival at the SNF. Troponin flat trended in 70s. Patient with no chest pain. Admitting EKG with no acute ST or T changes. Echo with EF of 55 to 60%, grade 1 diastolic dysfunction, no LV segmental wall motion abnormalities, flattened septum consistent with RV pressure/volume overload. Metoprolol on hold due to bradycardia. Hydralazine dc'd / gabapentin held as it can worsen edema -Continue Daily weights. Strict I's and O's, monitor and replete electrolytes as appropriate. -Trial BiPAP qhs and with naps, encourage complaiance -lasix 80 q8h -Cardiology following, appreciate recommendations #Acute kidney injury over CKD stage III *improving - Admitting creatinine of 1.81, baseline creatinine around 1.4. -Continue diuresis as tolerated -No further IV mag, continue mag BID #Acute UTI: Patient started on Rocephin 07/04,klebsiella UTI, continue CTX given cellulitis #LLE Cellulitis: Left lat leg w/ erythema/ drainage noted 07/06. wound culture. wound care consult. added dapto 07/06. Will plan 14 days treatment, iv while inpatient, likely transition to doxy on DC pending clinical course. Other chronic medical conditions: Iron deficiency anemia: Baseline hemoglobin around 10, stable, continue home iron supplementation HTN/HLD: consider addition of ACEi, Insulin-dependent T2DM: Complicated with nephropathy and neuropathy. A1c of 10.1% on 04/28/2023. Sliding scale insulin while in hospital. Was taken off of Ozempic about 1 month ago as it was assumed that this was causing nausea for the patient. patient educator consult for uncontrolled diabetes. Diabetic neuropathy: hold home gabapentin Morbid obesity: Encourage diet/lifestyle modification with exercise DVT prophylaxis: Heparin subcu Full code Disposition: PT/OT, CM to assist with DC plan. Admission and Anticipated Discharge Date Admission Date: July 04, 2023 Subjective Reports doing better with juice, seems to have helped symptoms notably Review of Systems Review of Systems: All systems reviewed & are unremarkable except as noted in Subjective Physical Exam Respiratory: normal effort difficult to appreciate 2/2 habitus Cardiovascular: RRR, no murmur, no edema Results & Data Results & Data Vital Signs (Past 12 Hours) Vital Signs Temp Pulse Pulse Resp BP Pulse Ox O2 Del Method 07/11/23 16:14 93 H 07/11/23 15:53 36.8 C 82 20 184/81 H 97 Nasal Cannula 07/11/23 11:22 36.3 C L 89 18 155/72 H 92 Nasal Cannula 07/11/23 10:26 77 07/11/23 07:55 37.2 C 86 20 154/77 H 96 Nasal Cannula 07/11/23 07:43 Nasal Cannula O2 Flow Rate 07/11/23 16:14 07/11/23 15:53 3.5 07/11/23 11:22 3 07/11/23 10:26 07/11/23 07:55 3 07/11/23 07:43 3 Laboratory Results Short CBC 07/11/23 Range/Units 05:59 WBC 5.62 (4.8-10.8) K/ul Hgb 11.2 L (12.0-16.0) g/dl Hct 37.4 (37.0-47.0) % Plt Count 158 (130-400) K/uL BMP 07/11/23 05:59 Sodium 145 Potassium 3.7 Chloride 97 L Carbon Dioxide 43 H* BUN 28 H Creatinine 0.99 Glucose 94 Calcium 9.1 Medications Administered Home Medications Medication Instructions Recorded Confirmed Last Taken aspirin 81 mg tablet,delayed 81 mg PO QAM 03/14/22 07/04/23 04/27/23 release ferrous sulfate 325 mg (65 mg 325 mg PO DAILY 03/14/22 07/04/23 04/27/23 iron) tablet furosemide 40 mg tablet (Lasix) 40 mg PO QAM 05/17/22 07/04/23 07/03/23 insulin detemir U-100 100 unit/mL 27 unit subcut BID 05/17/22 07/04/23 07/03/23 subcutaneous solution (Levemir U-100 Insulin) insulin lispro 100 unit/mL 10 unit subcut AC 05/17/22 07/04/23 07/03/23 subcutaneous solution acetaminophen 500 mg tablet 1,000 mg PO Q6H PRN Pain 03/13/23 07/04/23 06/30/23 (Tylenol Extra Strength) cyanocobalamin (vitamin B-12) 1,000 mcg PO DAILY 03/13/23 07/04/23 04/27/23 1,000 mcg tablet (Vitamin B-12) metoprolol succinate 25 mg 25 mg PO QAM 03/13/23 07/04/23 07/03/23 tablet,extended release 24 hr gabapentin 600 mg tablet 600 mg PO BID #60 tabs 05/08/23 07/04/23 07/03/23 fluoxetine 20 mg capsule (Prozac) 20 mg PO DAILY 07/04/23 07/04/23 07/04/23 hydralazine 50 mg tablet 50 mg PO QAM 07/04/23 07/04/23 07/03/23 melatonin 3 mg tablet 3 mg PO HS 07/04/23 07/04/23 07/03/23 Active Medications Generic Name Dose Route Start Last Admin Trade Name Norma PRN Reason Stop Dose Admin Acetaminophen 650 mg 07/04/23 15:34 07/10/23 00:42 Acetaminophen 325 Mg Tab PO 08/03/23 15:33 650 mg Q4H PRN Administration Moderate Pain (Scale 4, 5, 6) Aspirin 81 mg 07/04/23 16:00 07/11/23 08:44 Aspirin 81 Mg Ectab PO 08/03/23 15:59 81 mg QAM MOHAMUD Administration Cyanocobalamin 1,000 mcg 07/05/23 09:00 07/11/23 08:44 Cyanocobalamin (B-12) 500 Mcg Tablet PO 08/04/23 08:59 1,000 mcg DAILY MOHAMUD Administration Ferrous Sulfate 325 mg 07/05/23 09:00 07/09/23 08:24 Ferrous Sulfate 325 Mg Tab PO 08/04/23 08:59 325 mg DAILY MOHAMUD Administration Fluoxetine HCl 20 mg 07/04/23 16:00 07/11/23 08:44 Fluoxetine Hcl 20 Mg Cap PO 08/03/23 15:59 20 mg DAILY MOHAMUD Administration Furosemide 80 mg 07/11/23 12:00 07/11/23 11:31 Furosemide 40 Mg/4 Ml Vial IV 08/10/23 11:00 80 mg Q8H MOHAMUD Administration Gabapentin 600 mg 07/04/23 21:00 07/07/23 09:01 Gabapentin 600 Mg Tab PO 08/03/23 20:59 600 mg BID MOHAMUD Administration Heparin Sodium (Porcine) 5,000 units 07/07/23 14:00 07/11/23 14:10 Heparin Sod 5,000 Unit/0.5 Ml Vial SQ 08/06/23 13:59 5,000 units Q8 MOHAMUD Administration Hydralazine HCl 25 mg 07/10/23 21:00 07/11/23 14:11 Hydralazine Hcl 25 Mg Tab PO 08/09/23 20:59 25 mg TID MOHAMUD Administration Daptomycin 450 mg/ Syringe 9 mls @ 4.5 mls/min 07/06/23 17:30 07/11/23 16:59 IV 07/13/23 17:29 4.5 mls/min Q24H MOHAMUD Administration Protocol Pantoprazole Sodium 40 mg/ 10 mls @ 5 mls/min 07/10/23 21:00 07/11/23 08:45 Syringe IV 08/09/23 20:59 5 mls/min BID MOHAMUD Administration Promethazine HCl 12.5 mg/ 50.5 mls @ 202 mls/hr 07/11/23 00:46 07/11/23 01:32 Sodium Chloride IV 08/10/23 00:45 Infused Q6H PRN Infusion Nausea And Vomiting Insulin Aspart 0 units 07/04/23 15:34 07/11/23 17:47 Insulin Aspart Per Unit Charge SC 08/03/23 15:33 4 units ACHS MOHAMUD Administration Lisinopril 10 mg 07/11/23 09:00 07/11/23 09:26 Lisinopril 10 Mg Tab PO 08/10/23 08:59 10 mg QAM MOHAMUD Administration Magnesium Chloride 64 mg 07/08/23 10:30 07/11/23 08:44 Magnesium Chloride W/Calcium 64mg Delayed Rel Tab PO 08/07/23 10:29 64 mg BID MOHAMUD Administration Melatonin 3 mg 07/04/23 21:00 07/10/23 23:09 Melatonin 3 Mg Tab PO 08/03/23 20:59 3 mg HS MOHAMUD Administration Metoclopramide HCl 10 mg 07/10/23 15:00 07/11/23 16:05 Metoclopramide Hcl Inj 5 Mg/Ml 2 Ml Vial IV 08/09/23 14:59 10 mg Q6H MOHAMUD Administration Metoprolol Succinate 12.5 mg 07/04/23 16:00 07/06/23 09:42 Metoprolol Succ 25mg Ext Rel Tab PO 08/03/23 15:59 12.5 mg QAM MOHAMUD Administration Miscellaneous 15 - 30 gm 07/04/23 15:34 07/07/23 08:21 Carbohydrates For Hypoglycemia PO 08/03/23 15:33 15 gm UD PRN Administration Hypoglycemia Protocol Spironolactone 12.5 mg 07/07/23 11:30 07/08/23 09:01 Spironolactone 12.5 Mg Tab PO 08/06/23 11:29 12.5 mg DAILY MOHAMUD Administration (2) Hypertension Hypertension type: unspecified Qualified Code(s): I10 - Essential (primary) hypertension (7) Type 2 diabetes mellitus, with long-term current use of insulin Diabetes mellitus complication status: without complication Qualified Code(s): E11.9 - Type 2 diabetes mellitus without complications; 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
[2023-07-11] MEDS ORDERED: LANTUS PER UNIT CHARGE SQ SCH (21:00)
[2023-07-11] MEDS: MELATONIN 3 MG TAB PO SCH (21:49)
[2023-07-11] MEDS: ACETAMINOPHEN 325 MG TAB PO PRN (22:42)
[2023-07-11] MEDS ORDERED: hydrALAZINE HCL 20 MG/ML VIAL IV STA (22:54)
[2023-07-12] MEDS: METOCLOPRAMIDE HCL INJ 5 MG/ML 2 ML VIAL IV SCH ×2 (03:21→08:35)
[2023-07-12] MEDS: FUROSEMIDE 40 MG/4 ML VIAL IV SCH ×3 (05:46→22:52)
[2023-07-12] MEDS: HEPARIN SOD 5,000 UNIT/0.5 ML VIAL SQ SCH ×3 (05:46→22:52)
[2023-07-12] MEDS: SPIRONOLACTONE 12.5 MG TAB PO SCH (08:30)
[2023-07-12] MEDS: MAGNESIUM CHLORIDE W/CALCIUM 64MG DELAYED REL TAB PO SCH ×2 (08:30→20:46)
[2023-07-12] MEDS: hydrALAZINE HCL 25 MG TAB PO SCH ×3 (08:30→20:46)
[2023-07-12] MEDS: PANTOprazole 40 MG in SYRINGE 0 ML IV SCH ×2 (08:31→20:47)
[2023-07-12] MEDS: INSULIN ASPART PER UNIT CHARGE SC SCH ×4 (08:41→20:47)
[2023-07-12 08:59] LABS: Hematocrit (blood only) 36.8 % (37.0-47.0); Hemoglobin 10.9 g/dl (12.0-16.0); Mean Corpuscular Hemoglobin 27.5 pg (25.0-34.0); Mean Corpuscular Hgb Conc 29.6 g/dL (32.0-36.0); Mean Corpuscular Volume 92.9 fL (80.0-100.0); Mean Platelet Volume 11.6 fL (9.4-12.4); Platelet Count 156 K/uL (130-400); RDW Coefficient of Variation 15.1 % (11.5-14.5); RDW Standard Deviation 51.7 fL (36.4-46.3); Red Blood Count 3.96 M/uL (4.20-5.40); White Blood Count 5.24 K/ul (4.8-10.8)
[2023-07-12] MEDS ORDERED: lisinopril 20 MG TAB PO SCH (09:00)
[2023-07-12] MEDS ORDERED: DICYCLOMINE HCL 10 MG CAP PO ONE (09:15)
[2023-07-12 09:18] LABS: BUN Creatinine Ratio 22.7 (10-20); Calcium 9.3 mg/dl (8.6-10.3); Creatinine Clr Calc Pharmacy 85.2 ml/min; Est GFR (African American) 59.9 ml/min; Est GFR (Non-African American) 51.7 ml/min; Magnesium 1.7 mg/dl (1.7-2.4); Potassium 4.1 mmol/L (3.5-5.1)
[2023-07-12] MEDS: lisinopril 40 MG TAB PO SCH (10:22)
[2023-07-12] MEDS: CYANOCOBALAMIN (B-12) 500 MCG TABLET PO SCH (10:22)
[2023-07-12] MEDS: ASPIRIN 81 MG ECTAB PO SCH (10:22)
[2023-07-12] MEDS: FLUoxetine HCL 20 MG CAP PO SCH (10:22)
--- NOTE | 2023-07-12 10:30 | Gastroenterology Progress Note ---
Date of Service July 12, 2023 Assessment & Plan (1) Nausea: Plan: Still think her problems are medication related. I wonder if daptomycin isn't contributing to nausea and/or diarrhea. May end up needing egd and/or colonoscopy. Will decide on that in next few days. How long is daptomycin going to be necessary? Admission and Anticipated Discharge Date Admission Date: July 04, 2023 Subjective Feels like "crap". Had cream of wheat and is having diarrhea after that. Nausea as well. Did better yesterday afternoon Physical Exam Constitutional: + ill appearing Results & Data Vital Signs (Past 12 Hours) Vital Signs Temp Pulse Pulse Resp BP BP Pulse Ox 07/12/23 08:04 36.7 C 83 18 169/73 H 93 07/12/23 07:00 85 07/12/23 02:19 36.5 C 78 16 143/65 H 97 07/12/23 00:23 07/11/23 22:35 37.1 C 67 18 215/81 H 93 O2 Del Method O2 Flow Rate 07/12/23 08:04 Nasal Cannula 3.5 07/12/23 07:00 07/12/23 02:19 Nasal Cannula 3.5 07/12/23 00:23 Nasal Cannula 3.5 07/11/23 22:35 Nasal Cannula 3.5
--- NOTE | 2023-07-12 10:48 | Nephrology Progress Note ---
Date of Service July 12, 2023 Assessment & Plan Admission and Anticipated Discharge Date Admission Date: July 04, 2023 Subjective Assessment & Plan (1) Acute on chronic renal insufficiency: Plan: nonoliguric stage 1 DAHLIA on CKD 3 > baseline creatinine 1.4-1.5 most recently. prerenal versus ATN; cannot rule out glomerular process w/ volume overload. rapidly progressive ckd as below; now stage 3 after no CKD as recently as August 2022. Creat improved to normal despite massive diuresis last 5 days -Continue on low K diet -daily bmp (3) CHF (congestive heart failure): Seems Chronic. Mostly RT ventricle type. Strong Chance of Severe YVROSE. ABG and VBG shows Co2 retention and Compensated picture. recommend Night Bipap Will hold aldactone. Lower lasix to 60 iv bid--maybe we already got rid of all the extra water weight. hard to assess given Super morbid Obesity. Bicarb is Somewhat high but ABG and VBG shows Co2 retention and Compensated picture. No need to add diamox. She really needs night time Bipap if possible. S--has lot of nausea and feels bad. Did not get Bipap last night because of that. Breathing feels better. 1350 ml urine yesterday--from 4.7-8.0-12 liters last few days. Off lasix gtt and on lasix 80 iv bid. Physical Exam Constitutional: Chronic ill appearing and ++ obese; no acute distress at rest Respiratory: normal respiratory effort Auscultation: + rales and + rhonchi; no wheezes Cardiovascular: Rate/Rhythm: regular rate and regular rhythm Heart Sounds: normal S1 (distant heart sounds ) and normal S2 Vessels: + JVD Extremities: + edema (+2 pitting edema to thighs, abdomen, and pre-sacral region ) Gastrointestinal (Abdomen): Inspection/Auscultation: + abdomen distended and + abdominal edema Psychiatric: A+Ox3, euthymic affect Results & Data Vital Signs (Past 12 Hours) Vital Signs Temp Pulse Pulse Resp BP BP Pulse Ox 07/12/23 08:04 36.7 C 83 18 169/73 H 93 07/12/23 08:00 07/12/23 07:00 85 07/12/23 02:19 36.5 C 78 16 143/65 H 97 07/12/23 00:23 O2 Del Method O2 Flow Rate 07/12/23 08:04 Nasal Cannula 3.5 07/12/23 08:00 Nasal Cannula 2 07/12/23 07:00 07/12/23 02:19 Nasal Cannula 3.5 07/12/23 00:23 Nasal Cannula 3.5
[2023-07-12] MEDS: ONDANSETRON INJ 2 MG/ML 2 ML VIAL IV SCH ×3 (10:50→22:51)
[2023-07-12] MEDS: ACETAMINOPHEN 325 MG TAB PO PRN (10:52)
--- NOTE | 2023-07-12 12:25 | Cardiology Progress Note ---
Date of Service July 12, 2023 Assessment & Plan (1) Acute on chronic heart failure with preserved ejection fraction (HFpEF): (2) Right heart failure: (3) CKD (chronic kidney disease) stage 3, GFR 30-59 ml/min: Plan 53-year-old female undergoing significant diuresis with IV Lasix infusion since admission. Urine output has tapered off over the past 24 hours. Continue IV furosemide 60 mg twice daily. Monitor daily weight, fluid balance, and GFR. Volume status somewhat difficult to laboratory secretary given body habitus. Hydralazine restarted 07/10. Blood pressure remains elevated. Beta-andrea held this admission due to bradycardia. Aldactone on hold per nephrology. Continue lisinopril. Elevated bicarbonate per lab studies. Appears compensated per VBG. Restart BiPAP nightly when GI issues are controlled. I spent a total of 30 minutes on the date of service in preparation, delivery, and documentation of the care provided to this patient, excluding any time spent in the performance of separately billed services. Admission and Anticipated Discharge Date Admission Date: July 04, 2023 Subjective Patient seen and examined at the bedside. IV Lasix infusion discontinued. Abdominal discomfort and nausea unchanged. Reports loose stools. Hydralazine restarted, however, blood pressure remains elevated. Denies chest pain or shortness of breath at rest. Telemetry reveals sinus rhythm in the 70s. Review of Systems Review of Systems: All systems reviewed & are unremarkable except as noted in Subjective Physical Exam Constitutional: well nourished and + morbidly obese Respiratory: normal respiratory effort Auscultation: + diminished lung sounds (Bases bilateral); no wheezes Cardiovascular: Rate/Rhythm: regular rate and regular rhythm Heart Sounds: normal S1 and normal S2; no murmur Vessels: + JVD Extremities: + edema (2- 3+ bilateral lower extremity edema with stasis changes) Gastrointestinal (Abdomen): Inspection/Auscultation: + abdomen distended Percussion/Palpation: abdomen soft; abdomen nontender, no guarding and abdomen not rigid Neurologic: CN's II-XI intact bilaterally; no focal motor deficits Results & Data Vital Signs (Past 12 Hours) Vital Signs Temp Pulse Pulse Resp BP BP Pulse Ox 07/12/23 12:09 37.1 C 86 18 168/77 H 94 07/12/23 11:30 95 07/12/23 08:04 36.7 C 83 18 169/73 H 93 07/12/23 08:00 07/12/23 07:00 85 07/12/23 02:19 36.5 C 78 16 143/65 H 97 07/12/23 00:23 O2 Del Method O2 Flow Rate 07/12/23 12:09 Nasal Cannula 3.5 07/12/23 11:30 Nasal Cannula 2 07/12/23 08:04 Nasal Cannula 3.5 07/12/23 08:00 Nasal Cannula 2 07/12/23 07:00 07/12/23 02:19 Nasal Cannula 3.5 07/12/23 00:23 Nasal Cannula 3.5 Laboratory Results CBC 07/12/23 Range/Units 08:40 WBC 5.24 (4.8-10.8) K/ul RBC 3.96 L (4.20-5.40) M/uL Hgb 10.9 L (12.0-16.0) g/dl Hct 36.8 L (37.0-47.0) % Plt Count 156 (130-400) K/uL Comprehensive Metabolic Panel 07/12/23 Range/Units 08:40 Sodium 144 (136-145) mmol/L Potassium 4.1 (3.5-5.1) mmol/L Chloride 95 L (98-107) mmol/L Carbon Dioxide 45 H* (21-32) mmol/L BUN 27 H (6-23) mg/dl Creatinine 1.19 (0.6-1.2) mg/dl Glucose 122 H (70-99(Fasting)) mg/dl Calcium 9.3 (8.6-10.3) mg/dl Intake and Output 07/11/23 07/12/23 07/12/23 22:59 06:59 14:59 Intake Total 50.5 / 1115.5 825 / 1115.5 Output Total 601 / 1351 Balance 50.5 / -235.5 224 / -235.5 Intake: IV 50.5 / 50.5 Promethazine HCl 12.5 mg In 50.5 / 50.5 Sodium Chloride 0.9% 50 ml @ 202 mls/hr IV Q6H PRN Rx#: [id number] Oral 825 / 1065 Output: Urine Amount (Catheter) 600 / 1350 [place]aton/Indwelling 600 / 1350 # Bowel Movements Other: Other Intake Source sips Weight 150.3 kg Weight Measurement Method Built in [facility] (2) Right heart failure Heart failure chronicity: acute on chronic Qualified Code(s): I50.813 - Acute on chronic right heart failure (3) CKD (chronic kidney disease) stage 3, GFR 30-59 ml/min Chronic kidney disease stage 3 subtype: unspecified whether 3a or 3b Qualified Code(s): N18.30 - Chronic kidney disease, stage 3 unspecified
[2023-07-12] MEDS: DICYCLOMINE HCL 10 MG CAP PO SCH ×3 (13:16→20:46)
--- NOTE | 2023-07-12 13:43 | Hospitalist Progress Note ---
Date of Service July 12, 2023 Assessment & Plan (1) CHF (congestive heart failure): (2) Hypertension: (3) Diabetic ulcer of foot associated with type 2 diabetes mellitus, with bone involvement without evidence of necrosis: (4) Lymphedema of both lower extremities: (5) Anemia: (6) UTI (urinary tract infection): (7) Type 2 diabetes mellitus, with long-term current use of insulin: (8) Diabetic peripheral neuropathy associated with type 2 diabetes mellitus: (9) Obesity: Plan: Ms. Rand is a 53-year-old male with PMH of insulin-dependent T2DM, diabetic neuropathy, diabetic nephropathy with CKD stage III, HTN, HLD, HFpEF, morbid obesity, necrotizing fasciitis, bilateral lower extremity lymphedema, TRACI, left chronic heel ulcer presented to the ED for generalized swelling/increased edema of BLE and not feeling well. She is being managed for the following #Nausea #Relative hypoglycemia #Multiple BM -history of impaction, generalized abdominal pain -Will trial reglan for nausea/promotility iso diabetes -KUB with stool burden, concern for impending impaction given recent history of such, 1x bisacodyl suppository -CTM with liquid diet, ADT -Lasix transitioned to lasix BID IV, Cardiology and Nephro managing -c diff sent negative -?relative hypoglycemia contributing, POC in low 100s--quite low given A1C 10% --reduce glargine--doing better with juice intake, but still feels poorly -Trial dicyclomine, hold bowel regimen -Discontinue Daptomycin--wound appears chronic and no changes overall, drainage/crusting c/w chronic lymphedema, however, was not hospitalist who initiated therapy therefore treatment efficacy difficult to assess, but no notable improvement since following--will monitor closely (received 7 days CTX and x5 days dapto, likely sufficient) -Antiemitics prn #Hypertension -Antihypertensives held thus far given aggressive diuresis -Start lisinopril, increase 40mg qam -Hydalazine TID #Acute exacerbation of heart failure with preserved ejection fraction #Acute Right heart failure Upon chart review, patient's weight of 146 kg on 05/08/2023, presenting weight at 176.6 kg on 07/04/2023. Admitting CXR with pulmonary vascular congestion, at admission : 2-3+ pitting edema BLE along with her chronic lymphedema and UE pitting edema noted. Patient's home Lasix was increased from 20mg to 40 mg the day prior to arrival at the [facility]. Troponin flat trended in 70s. Patient with no chest pain. Admitting EKG with no acute ST or T changes. Echo with EF of 55 to 60%, grade 1 diastolic dysfunction, no LV segmental wall motion abnormalities, flattened septum consistent with RV pressure/volume overload. Metoprolol on hold due to bradycardia. Hydralazine dc'd / gabapentin held as it can worsen edema -Continue Daily weights. Strict I's and O's, monitor and replete electrolytes as appropriate. -Trial BiPAP qhs and with naps, encourage compliance -lasix to q6h -Cardiology following, appreciate recommendations -Continue spironolactone 12.5mg daily -hydral TID -lisinopril 40mg qam #Acute kidney injury over CKD stage III *improving #Metabolic alkalosis, compensation for YVROSE/OHS - Admitting creatinine of 1.81, baseline creatinine around 1.4. -Continue diuresis as tolerated -No further IV mag, continue mag BID -Encourage BiPAP when able #Acute UTI: Patient started on Rocephin 07/04,klebsiella UTI, completed 7 days of CTX #LLE Cellulitis: discontinued daptomycin given nausea/no clear signs of infection/improvement of area. chronic changes appreciated, recieved 7 days ctx and 5 days dapto. WIll monitor and WCN following Other chronic medical conditions: Iron deficiency anemia: Baseline hemoglobin around 10, stable, continue home iron supplementation HTN/HLD: consider addition of ACEi, Insulin-dependent T2DM: Complicated with nephropathy and neuropathy. A1c of 10.1% on 04/28/2023. Sliding scale insulin while in hospital. Was taken off of Ozempic about 1 month ago as it was assumed that this was causing nausea for the patient. para educator consult for uncontrolled diabetes. Diabetic neuropathy: hold home gabapentin Morbid obesity: Encourage diet/lifestyle modification with exercise DVT prophylaxis: Heparin subcu Full code Disposition: PT/OT, CM to assist with DC plan. Admission and Anticipated Discharge Date Admission Date: July 04, 2023 Subjective Reports feeling only slightly improved since less tight glycemic control implemented, but still reports general nausea/discomfort Diarrhea ongoing despite cessation of bowel regimen Feels unwell overall, noting "cramping" and "gassy" sensations ongoing Nauseated, but not vomiting Review of Systems Review of Systems: All systems reviewed & are unremarkable except as noted in Subjective Physical Exam Constitutional: looks generally unwell Respiratory: hard to appreciate 2/2 habitus Cardiovascular: RRR, no murmur, no edema Skin: appears stable, chronic changes with splitting/crusting Results & Data Results & Data Vital Signs (Past 12 Hours) Vital Signs Temp Pulse Pulse Resp BP BP Pulse Ox 07/12/23 12:09 37.1 C 86 18 168/77 H 94 07/12/23 11:30 95 07/12/23 08:04 36.7 C 83 18 169/73 H 93 07/12/23 08:00 07/12/23 07:00 85 07/12/23 02:19 36.5 C 78 16 143/65 H 97 O2 Del Method O2 Flow Rate 07/12/23 12:09 Nasal Cannula 3.5 07/12/23 11:30 Nasal Cannula 2 07/12/23 08:04 Nasal Cannula 3.5 07/12/23 08:00 Nasal Cannula 2 07/12/23 07:00 07/12/23 02:19 Nasal Cannula 3.5 Laboratory Results Short CBC 07/12/23 Range/Units 08:40 WBC 5.24 (4.8-10.8) K/ul Hgb 10.9 L (12.0-16.0) g/dl Hct 36.8 L (37.0-47.0) % Plt Count 156 (130-400) K/uL BMP 07/12/23 08:40 Sodium 144 Potassium 4.1 Chloride 95 L Carbon Dioxide 45 H* BUN 27 H Creatinine 1.19 Glucose 122 H Calcium 9.3 Medications Administered Home Medications Medication Instructions Recorded Confirmed Last Taken aspirin 81 mg tablet,delayed 81 mg PO QAM 03/14/22 07/04/23 04/27/23 release ferrous sulfate 325 mg (65 mg 325 mg PO DAILY 03/14/22 07/04/23 04/27/23 iron) tablet furosemide 40 mg tablet (Lasix) 40 mg PO QAM 05/17/22 07/04/23 07/03/23 insulin detemir U-100 100 unit/mL 27 unit subcut BID 05/17/22 07/04/23 07/03/23 subcutaneous solution (Levemir U-100 Insulin) insulin lispro 100 unit/mL 10 unit subcut AC 05/17/22 07/04/23 07/03/23 subcutaneous solution acetaminophen 500 mg tablet 1,000 mg PO Q6H PRN Pain 03/13/23 07/04/23 06/30/23 (Tylenol Extra Strength) cyanocobalamin (vitamin B-12) 1,000 mcg PO DAILY 03/13/23 07/04/23 04/27/23 1,000 mcg tablet (Vitamin B-12) metoprolol succinate 25 mg 25 mg PO QAM 03/13/23 07/04/23 07/03/23 tablet,extended release 24 hr gabapentin 600 mg tablet 600 mg PO BID #60 tabs 05/08/23 07/04/23 07/03/23 fluoxetine 20 mg capsule (Prozac) 20 mg PO DAILY 07/04/23 07/04/23 07/04/23 hydralazine 50 mg tablet 50 mg PO QAM 07/04/23 07/04/23 07/03/23 melatonin 3 mg tablet 3 mg PO HS 07/04/23 07/04/23 07/03/23 Active Medications Generic Name Dose Route Start Last Admin Trade Name Freq PRN Reason Stop Dose Admin Acetaminophen 650 mg 07/04/23 15:34 07/12/23 10:52 Acetaminophen 325 Mg Tab PO 08/03/23 15:33 650 mg Q4H PRN Administration Moderate Pain (Scale 4, 5, 6) Aspirin 81 mg 07/04/23 16:00 07/12/23 10:22 Aspirin 81 Mg Ectab PO 08/03/23 15:59 81 mg QAM MOHAMUD Administration Cyanocobalamin 1,000 mcg 07/05/23 09:00 07/12/23 10:22 Cyanocobalamin (B-12) 500 Mcg Tablet PO 08/04/23 08:59 1,000 mcg DAILY MOHAMUD Administration Dicyclomine HCl 10 mg 07/12/23 13:00 07/12/23 13:16 Dicyclomine Hcl 10 Mg Cap PO 08/11/23 12:59 10 mg QID MOHAMUD Administration Ferrous Sulfate 325 mg 07/05/23 09:00 07/09/23 08:24 Ferrous Sulfate 325 Mg Tab PO 08/04/23 08:59 325 mg DAILY MOHAMUD Administration Fluoxetine HCl 20 mg 07/04/23 16:00 07/12/23 10:22 Fluoxetine Hcl 20 Mg Cap PO 08/03/23 15:59 20 mg DAILY MOHAMUD Administration Furosemide 60 mg 07/12/23 11:00 07/12/23 10:52 Furosemide 40 Mg/4 Ml Vial IV 08/11/23 10:59 60 mg Q12H MOHAMUD Administration Gabapentin 600 mg 07/04/23 21:00 07/07/23 09:01 Gabapentin 600 Mg Tab PO 08/03/23 20:59 600 mg BID MOHAMUD Administration Heparin Sodium (Porcine) 5,000 units 07/07/23 14:00 07/12/23 13:17 Heparin Sod 5,000 Unit/0.5 Ml Vial SQ 08/06/23 13:59 5,000 units Q8 MOHAMUD Administration Hydralazine HCl 25 mg 07/10/23 21:00 07/12/23 13:17 Hydralazine Hcl 25 Mg Tab PO 08/09/23 20:59 25 mg TID MOHAMUD Administration Pantoprazole Sodium 40 mg/ 10 mls @ 5 mls/min 07/10/23 21:00 07/12/23 08:31 Syringe IV 08/09/23 20:59 5 mls/min BID MOHAMUD Administration Promethazine HCl 12.5 mg/ 50.5 mls @ 202 mls/hr 07/11/23 00:46 07/11/23 22:31 Sodium Chloride IV 08/10/23 00:45 Infused Q6H PRN Infusion Nausea And Vomiting Insulin Aspart 0 units 07/04/23 15:34 07/12/23 13:23 Insulin Aspart Per Unit Charge SC 08/03/23 15:33 4 units ACHS MOHAMUD Administration Protocol Lisinopril 40 mg 07/12/23 09:00 07/12/23 10:22 Lisinopril 40 Mg Tab PO 08/11/23 08:59 40 mg QAM MOHAMUD Administration Magnesium Chloride 64 mg 07/08/23 10:30 07/12/23 08:30 Magnesium Chloride W/Calcium 64mg Delayed Rel Tab PO 08/07/23 10:29 64 mg BID MOHAMUD Administration Melatonin 3 mg 07/04/23 21:00 07/11/23 21:49 Melatonin 3 Mg Tab PO 08/03/23 20:59 3 mg HS MOHAMUD Administration Metoprolol Succinate 12.5 mg 07/04/23 16:00 07/06/23 09:42 Metoprolol Succ 25mg Ext Rel Tab PO 08/03/23 15:59 12.5 mg QAM MOHAMUD Administration Miscellaneous 15 - 30 gm 07/04/23 15:34 07/07/23 08:21 Carbohydrates For Hypoglycemia PO 08/03/23 15:33 15 gm UD PRN Administration Hypoglycemia Protocol Ondansetron HCl 4 mg 07/12/23 11:00 07/12/23 10:50 Ondansetron Inj 2 Mg/Ml 2 Ml Vial IV 08/11/23 10:59 4 mg Q6 MOHAMUD Administration Spironolactone 12.5 mg 07/07/23 11:30 07/12/23 08:30 Spironolactone 12.5 Mg Tab PO 08/06/23 11:29 12.5 mg DAILY MOHAMUD Administration (2) Hypertension Hypertension type: unspecified Qualified Code(s): I10 - Essential (primary) hypertension (7) Type 2 diabetes mellitus, with long-term current use of insulin Diabetes mellitus complication status: without complication Qualified Code(s): E11.9 - Type 2 diabetes mellitus without complications; Z79.4 - [facility]FP (current) use of insulin
[2023-07-12] MEDS: PROMETHAZINE HCL 12.5 MG in SODIUM CHLORIDE 0.9% 50 ML IV PRN (16:23)
[2023-07-12] MEDS: MELATONIN 3 MG TAB PO SCH (20:46)
[2023-07-12] MEDS: LANTUS PER UNIT CHARGE SQ SCH (20:48)
[2023-07-13] MEDS: ONDANSETRON INJ 2 MG/ML 2 ML VIAL IV SCH ×5 (00:25→23:32)
[2023-07-13 05:56] LABS: Hemoglobin 10.5 g/dl (12.0-16.0); Mean Corpuscular Hemoglobin 27.6 pg (25.0-34.0); Mean Corpuscular Volume 92.1 fL (80.0-100.0); Mean Platelet Volume 11.6 fL (9.4-12.4); Platelet Count 147 K/uL (130-400); RDW Coefficient of Variation 15.3 % (11.5-14.5); RDW Standard Deviation 51.1 fL (36.4-46.3); White Blood Count 5.53 K/ul (4.8-10.8)
[2023-07-13] MEDS: HEPARIN SOD 5,000 UNIT/0.5 ML VIAL SQ SCH ×3 (05:57→21:33)
[2023-07-13 06:15] LABS: BUN Creatinine Ratio 22.1 (10-20); Calcium 9.2 mg/dl (8.6-10.3); Creatinine Clr Calc Pharmacy 77.4 ml/min; Est GFR (African American) 53.4 ml/min; Magnesium 1.7 mg/dl (1.7-2.4); Phosphorus 3.6 mg/dl (2.5-4.9); Potassium 3.5 mmol/L (3.5-5.1)
[2023-07-13] MEDS ORDERED: DICYCLOMINE HCL 10 MG CAP PO ONE (07:15)
--- NOTE | 2023-07-13 07:15 | Hospitalist Progress Note ---
Date of Service July 13, 2023 Assessment & Plan (1) CHF (congestive heart failure): (2) Hypertension: (3) Diabetic ulcer of foot associated with type 2 diabetes mellitus, with bone involvement without evidence of necrosis: (4) Lymphedema of both lower extremities: (5) Anemia: (6) UTI (urinary tract infection): (7) Type 2 diabetes mellitus, with long-term current use of insulin: (8) Diabetic peripheral neuropathy associated with type 2 diabetes mellitus: (9) Obesity: Plan: Ms. Rand is a 53-year-old male with PMH of insulin-dependent T2DM, diabetic neuropathy, diabetic nephropathy with CKD stage III, HTN, HLD, HFpEF, morbid obesity, necrotizing fasciitis, bilateral lower extremity lymphedema, TRACI, left chronic heel ulcer presented to the ED for generalized swelling/increased edema of BLE and not feeling well. She is being managed for the following #Nausea *improved today #Relative hypoglycemia #Multiple BM #History of IBS -history of impaction, generalized abdominal pain -Will trial reglan for nausea/promotility iso diabetes -KUB with stool burden initially with concern for impending impaction given recent history of such, 1x bisacodyl suppository and bowel regimen; now course with diarrhea -CTM with liquid diet--trial of advancing diet today -c diff sent negative -?relative hypoglycemia contributing, POC in low 100s--quite low given A1C 10% --reduce glargine--doing better with juice intake, but still feels poorly -Trial dicyclomine, hold bowel regimen, reassess -Discontinued Daptomycin 07/12--wound appears chronic and no changes overall, drainage/crusting c/w chronic lymphedema, however, was not hospitalist who initiated therapy therefore treatment efficacy difficult to assess, but no notable improvement since following--will monitor closely (received 7 days CTX and x5 days dapto, likely sufficient) -Antiemitics prn #Hypertension -Antihypertensives held thus far given aggressive diuresis -Start lisinopril, increase 40mg qam -Hydalazine TID --increased to 50mg TID #Acute exacerbation of heart failure with preserved ejection fraction #Acute Right heart failure Upon chart review, patient's weight of 146 kg on 05/08/2023, presenting weight at 176.6 kg on 07/04/2023. Admitting CXR with pulmonary vascular congestion, at admission : 2-3+ pitting edema BLE along with her chronic lymphedema and UE pitting edema noted. Patient's home Lasix was increased from 20mg to 40 mg the day prior to arrival at the [facility]. Troponin flat trended in 70s. Patient with no chest pain. Admitting EKG with no acute ST or T changes. Echo with EF of 55 to 60%, grade 1 diastolic dysfunction, no LV segmental wall motion abnormalities, flattened septum consistent with RV pressure/volume overload. Metoprolol on hold due to bradycardia. Hydralazine dc'd / gabapentin held as it can worsen edema however, blood pressure difficult to manage at this time therefore hydralazine resumed -Continue Daily weights. Strict I's and O's, monitor and replete electrolytes as appropriate. -Trial BiPAP qhs and with naps, encourage compliance -lasix to q12 -Cardiology following, appreciate recommendations -Held spironolactone 12.5mg daily -hydral TID -lisinopril 40mg qam #Acute kidney injury over CKD stage III *improving #Metabolic alkalosis, compensation for YVROSE/OHS - Admitting creatinine of 1.81, baseline creatinine around 1.4. -Continue diuresis as tolerated -No further IV mag, continue mag BID -Encourage BiPAP when able #Acute UTI: Patient started on Rocephin 07/04,klebsiella UTI, completed 7 days of CTX #LLE Cellulitis #Chronic lymphedema - discontinued daptomycin given nausea/no clear signs of infection/improvement of area. chronic changes appreciated, received 7 days ctx and 5 days dapto. WIll monitor and WCN following Other chronic medical conditions: Iron deficiency anemia: Baseline hemoglobin around 10, stable, continue home iron supplementation Insulin-dependent T2DM: Complicated with nephropathy and neuropathy. A1c of 10.1% on 04/28/2023. Sliding scale insulin while in hospital. Was taken off of Ozempic about 1 month ago as it was assumed that this was causing nausea for the patient. patient educator consult for uncontrolled diabetes. Diabetic neuropathy: hold home gabapentin Morbid obesity: Encourage diet/lifestyle modification with exercise DVT prophylaxis: Heparin subcu Full code Disposition: PT/OT, CM to assist with DC plan. Admission and Anticipated Discharge Date Admission Date: July 04, 2023 Subjective Reports feeling much improved today Sitting in bedside chair, denies any acute complaints. Notes some diarrhea on going, willing to trial diet advancement Review of Systems Review of Systems: All systems reviewed & are unremarkable except as noted in Subjective Physical Exam Respiratory: sounds decreased in periphery but no apparent crackles on exam, no O2 on exam Results & Data Results & Data Vital Signs (Past 12 Hours) Vital Signs Temp Pulse Pulse Resp BP Pulse Ox O2 Del Method 07/13/23 07:00 82 07/13/23 02:44 36.5 C 83 18 167/67 H 92 Nasal Cannula 07/12/23 23:59 36.8 C 80 18 149/68 H 94 Nasal Cannula 07/12/23 21:56 76 07/12/23 19:35 36.4 C L 75 18 163/67 H 95 Room Air 07/12/23 19:29 Nasal Cannula O2 Flow Rate 07/13/23 07:00 07/13/23 02:44 2 07/12/23 23:59 2 07/12/23 21:56 07/12/23 19:35 07/12/23 19:29 2 Laboratory Results Short CBC 07/13/23 Range/Units 05:35 WBC 5.53 (4.8-10.8) K/ul Hgb 10.5 L (12.0-16.0) g/dl Hct 35.0 L (37.0-47.0) % Plt Count 147 (130-400) K/uL BMP 07/13/23 05:34 Sodium 144 Potassium 3.5 Chloride 95 L Carbon Dioxide 43 H* BUN 29 H Creatinine 1.31 H Glucose 108 H Calcium 9.2 Medications Administered Home Medications Medication Instructions Recorded Confirmed Last Taken aspirin 81 mg tablet,delayed 81 mg PO QAM 03/14/22 07/04/23 04/27/23 release ferrous sulfate 325 mg (65 mg 325 mg PO DAILY 03/14/22 07/04/23 04/27/23 iron) tablet furosemide 40 mg tablet (Lasix) 40 mg PO QAM 05/17/22 07/04/23 07/03/23 insulin detemir U-100 100 unit/mL 27 unit subcut BID 05/17/22 07/04/23 07/03/23 subcutaneous solution (Levemir U-100 Insulin) insulin lispro 100 unit/mL 10 unit subcut AC 05/17/22 07/04/23 07/03/23 subcutaneous solution acetaminophen 500 mg tablet 1,000 mg PO Q6H PRN Pain 03/13/23 07/04/23 06/30/23 (Tylenol Extra Strength) cyanocobalamin (vitamin B-12) 1,000 mcg PO DAILY 03/13/23 07/04/23 04/27/23 1,000 mcg tablet (Vitamin B-12) metoprolol succinate 25 mg 25 mg PO QAM 03/13/23 07/04/23 07/03/23 tablet,extended release 24 hr gabapentin 600 mg tablet 600 mg PO BID #60 tabs 05/08/23 07/04/23 07/03/23 fluoxetine 20 mg capsule (Prozac) 20 mg PO DAILY 07/04/23 07/04/23 07/04/23 hydralazine 50 mg tablet 50 mg PO QAM 07/04/23 07/04/23 07/03/23 melatonin 3 mg tablet 3 mg PO HS 07/04/23 07/04/23 07/03/23 Active Medications Generic Name Dose Route Start Last Admin Trade Name Norma PRN Reason Stop Dose Admin Acetaminophen 650 mg 07/04/23 15:34 07/12/23 10:52 Acetaminophen 325 Mg Tab PO 08/03/23 15:33 650 mg Q4H PRN Administration Moderate Pain (Scale 4, 5, 6) Aspirin 81 mg 07/04/23 16:00 07/13/23 08:30 Aspirin 81 Mg Ectab PO 08/03/23 15:59 81 mg QAM MOHAMUD Administration Cyanocobalamin 1,000 mcg 07/05/23 09:00 07/13/23 08:32 Cyanocobalamin (B-12) 500 Mcg Tablet PO 08/04/23 08:59 1,000 mcg DAILY MOHAMUD Administration Dicyclomine HCl 20 mg 07/13/23 09:00 07/13/23 12:38 Dicyclomine Hcl 10 Mg Cap PO 08/12/23 08:59 20 mg QID MOHAMUD Administration Ferrous Sulfate 325 mg 07/05/23 09:00 07/09/23 08:24 Ferrous Sulfate 325 Mg Tab PO 08/04/23 08:59 325 mg DAILY MOHAMUD Administration Fluoxetine HCl 20 mg 07/04/23 16:00 07/13/23 08:31 Fluoxetine Hcl 20 Mg Cap PO 08/03/23 15:59 20 mg DAILY MOHAMUD Administration Furosemide 60 mg 07/12/23 11:00 07/13/23 11:48 Furosemide 40 Mg/4 Ml Vial IV 08/11/23 10:59 60 mg Q12H MOHAMUD Administration Gabapentin 600 mg 07/04/23 21:00 07/07/23 09:01 Gabapentin 600 Mg Tab PO 08/03/23 20:59 600 mg BID MOHAMUD Administration Heparin Sodium (Porcine) 5,000 units 07/07/23 14:00 07/13/23 05:57 Heparin Sod 5,000 Unit/0.5 Ml Vial SQ 08/06/23 13:59 5,000 units Q8 MOHAMUD Administration Hydralazine HCl 50 mg 07/13/23 09:00 07/13/23 08:39 Hydralazine Tab 50 Mg Tab PO 08/12/23 08:59 50 mg TID MOHAMUD Administration Pantoprazole Sodium 40 mg/ 10 mls @ 5 mls/min 07/10/23 21:00 07/13/23 08:30 Syringe IV 08/09/23 20:59 5 mls/min BID MOHAMUD Administration Promethazine HCl 12.5 mg/ 50.5 mls @ 202 mls/hr 07/11/23 00:46 07/12/23 16:38 Sodium Chloride IV 08/10/23 00:45 Infused Q6H PRN Infusion Nausea And Vomiting Insulin Aspart 0 units 07/04/23 15:34 07/13/23 12:43 Insulin Aspart Per Unit Charge SC 08/03/23 15:33 5 units ACHS MOHAMUD Administration Protocol Insulin Glargine 10 units 07/12/23 21:00 07/12/23 20:48 Lantus Per Unit Charge SQ 08/10/23 20:59 10 units HS MOHAMUD Administration Protocol Lisinopril 40 mg 07/12/23 09:00 07/13/23 08:30 Lisinopril 40 Mg Tab PO 08/11/23 08:59 40 mg QAM MOHAMUD Administration Magnesium Chloride 64 mg 07/08/23 10:30 07/13/23 08:30 Magnesium Chloride W/Calcium 64mg Delayed Rel Tab PO 08/07/23 10:29 64 mg BID MOHAMUD Administration Melatonin 3 mg 07/04/23 21:00 07/12/23 20:46 Melatonin 3 Mg Tab PO 08/03/23 20:59 3 mg HS MOHAMUD Administration Metoprolol Succinate 12.5 mg 07/04/23 16:00 07/06/23 09:42 Metoprolol Succ 25mg Ext Rel Tab PO 08/03/23 15:59 12.5 mg QAM MOHAMUD Administration Miscellaneous 15 - 30 gm 07/04/23 15:34 07/07/23 08:21 Carbohydrates For Hypoglycemia PO 08/03/23 15:33 15 gm UD PRN Administration Hypoglycemia Protocol Ondansetron HCl 4 mg 07/12/23 11:00 07/13/23 12:38 Ondansetron Inj 2 Mg/Ml 2 Ml Vial IV 08/11/23 10:59 4 mg Q6 MOHAMUD Administration Spironolactone 12.5 mg 07/07/23 11:30 07/12/23 08:30 Spironolactone 12.5 Mg Tab PO 08/06/23 11:29 12.5 mg DAILY MOHAMUD Administration (2) Hypertension Hypertension type: unspecified Qualified Code(s): I10 - Essential (primary) hypertension (7) Type 2 diabetes mellitus, with long-term current use of insulin Diabetes mellitus complication status: without complication Qualified Code(s): E11.9 - Type 2 diabetes mellitus without complications; 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
[2023-07-13] MEDS: ASPIRIN 81 MG ECTAB PO SCH (08:30)
[2023-07-13] MEDS: MAGNESIUM CHLORIDE W/CALCIUM 64MG DELAYED REL TAB PO SCH ×2 (08:30→20:48)
[2023-07-13] MEDS: PANTOprazole 40 MG in SYRINGE 0 ML IV SCH ×2 (08:30→20:50)
[2023-07-13] MEDS: lisinopril 40 MG TAB PO SCH (08:30)
[2023-07-13] MEDS: FLUoxetine HCL 20 MG CAP PO SCH (08:31)
[2023-07-13] MEDS: CYANOCOBALAMIN (B-12) 500 MCG TABLET PO SCH (08:32)
[2023-07-13] MEDS: DICYCLOMINE HCL 10 MG CAP PO SCH ×4 (08:39→20:49)
[2023-07-13] MEDS: hydrALAZINE TAB 50 MG TAB PO SCH ×3 (08:39→20:49)
[2023-07-13] MEDS: INSULIN ASPART PER UNIT CHARGE SC SCH ×4 (08:45→20:51)
[2023-07-13] MEDS ORDERED: DICYCLOMINE HCL 10 MG CAP PO SCH (09:00)
--- NOTE | 2023-07-13 10:01 | Gastroenterology Progress Note ---
Date of Service July 13, 2023 Assessment & Plan (1) Nausea: Plan: Hopefully stopping daptomycin will make her stomach feel better. It seems to have so far. I am going off service after today so will sign off. Please reconsult GI commercial or institutional cleaner if services needed. Admission and Anticipated Discharge Date Admission Date: July 04, 2023 Subjective In much better spirits today. Says she feels better. Daptomycin stopped yesterday Physical Exam Physical Exam: She looks well Constitutional: WD/WN, vitals as above Results & Data Vital Signs (Past 12 Hours) Vital Signs Temp Pulse Pulse Resp BP BP Pulse Ox 07/13/23 07:36 36.5 C 84 18 187/67 H 91 07/13/23 07:00 82 07/13/23 02:44 36.5 C 83 18 167/67 H 92 07/12/23 23:59 36.8 C 80 18 149/68 H 94 O2 Del Method O2 Flow Rate 07/13/23 07:36 Nasal Cannula 1 07/13/23 07:00 07/13/23 02:44 Nasal Cannula 2 07/12/23 23:59 Nasal Cannula 2
[2023-07-13] MEDS: FUROSEMIDE 40 MG/4 ML VIAL IV SCH (11:48)
--- NOTE | 2023-07-13 13:24 | Cardiology Progress Note ---
Date of Service July 13, 2023 Assessment & Plan (1) Acute on chronic heart failure with preserved ejection fraction (HFpEF): (2) Right heart failure: (3) CKD (chronic kidney disease) stage 3, GFR 30-59 ml/min: (4) Uncontrolled hypertension: Plan Creatinine trending upward today. Discontinue IV furosemide. Transition to oral furosemide 40mg BID. Monitor daily weight, fluid balance, and GFR. Volume status somewhat difficult to swing driver given body habitus. Hydralazine titrated to 50mg TID today. Blood pressure remains elevated. Add carvedilol 3.125mg BID. Aldactone on hold per nephrology. Continue lisinopril. Elevated bicarbonate per lab studies. Appears compensated per VBG. Restart BiPAP nightly when GI issues are controlled. I spent a total of 30 minutes on the date of service in preparation, delivery, and documentation of the care provided to this patient, excluding any time spent in the performance of separately billed services. Admission and Anticipated Discharge Date Admission Date: July 04, 2023 Subjective Patient seen and examined at the bedside. Abdominal discomfort and nausea improved today. Blood pressure remains elevated. Denies chest pain or shortness of breath at rest. Telemetry reveals sinus rhythm in the 70s. Review of Systems Review of Systems: All systems reviewed & are unremarkable except as noted in Subjective Physical Exam Constitutional: well nourished and + morbidly obese Respiratory: normal respiratory effort Auscultation: + diminished lung sounds (Bases bilateral); no wheezes Cardiovascular: Rate/Rhythm: regular rate and regular rhythm Heart Sounds: normal S1 and normal S2; no murmur Vessels: + JVD Extremities: + edema (2- 3+ bilateral lower extremity edema with stasis changes) Gastrointestinal (Abdomen): Inspection/Auscultation: + abdomen distended Percussion/Palpation: abdomen soft; abdomen nontender, no guarding and abdomen not rigid Neurologic: CN's II-XI intact bilaterally; no focal motor deficits Results & Data Vital Signs (Past 12 Hours) Vital Signs Temp Pulse Pulse Resp BP BP Pulse Ox 07/13/23 08:00 07/13/23 07:36 36.5 C 84 18 187/67 H 91 07/13/23 07:00 82 07/13/23 02:44 36.5 C 83 18 167/67 H 92 O2 Del Method O2 Flow Rate 07/13/23 08:00 Room Air 07/13/23 07:36 Nasal Cannula 1 07/13/23 07:00 07/13/23 02:44 Nasal Cannula 2 Laboratory Results CBC 07/13/23 Range/Units 05:35 WBC 5.53 (4.8-10.8) K/ul RBC 3.80 L (4.20-5.40) M/uL Hgb 10.5 L (12.0-16.0) g/dl Hct 35.0 L (37.0-47.0) % Plt Count 147 (130-400) K/uL Comprehensive Metabolic Panel 07/13/23 Range/Units 05:34 Sodium 144 (136-145) mmol/L Potassium 3.5 (3.5-5.1) mmol/L Chloride 95 L (98-107) mmol/L Carbon Dioxide 43 H* (21-32) mmol/L BUN 29 H (6-23) mg/dl Creatinine 1.31 H (0.6-1.2) mg/dl Glucose 108 H (70-99(Fasting)) mg/dl Calcium 9.2 (8.6-10.3) mg/dl Intake and Output 07/12/23 07/13/23 07/13/23 22:59 06:59 14:59 Intake Total 525.5 / 1105.5 100 / 1105.5 Output Total 277 / 1182 351 / 1182 Balance 248.5 / -76.5 -251 / -76.5 Intake: IV 50.5 / 50.5 Promethazine HCl 12.5 mg In 50.5 / 50.5 Sodium Chloride 0.9% 50 ml @ 202 mls/hr IV Q6H PRN Rx#: [id number] Oral 475 / 1055 100 / 1055 Output: Urine Amount (Catheter) 275 / 1175 350 / 1175 [place]/Indwelling 275 / 1175 350 / 1175 # Bowel Movements Other: Weight 149.1 kg Weight Measurement Method Built in [facility] (2) Right heart failure Heart failure chronicity: acute on chronic Qualified Code(s): I50.813 - Acute on chronic right heart failure (3) CKD (chronic kidney disease) stage 3, GFR 30-59 ml/min Chronic kidney disease stage 3 subtype: unspecified whether 3a or 3b Qualified Code(s): N18.30 - Chronic kidney disease, stage 3 unspecified
--- NOTE | 2023-07-13 13:31 | Pharmacy Report ---
Pharmacy Glycemic Short Note 2 - Date of Service July 13, 2023 - Glycemic Short BSG Results (Last 24 hours): 07/12/23 07/12/23 07/13/23 17:04 20:41 05:34 Glucose 108 H POC Glucose 121 H 125 H 07/13/23 07/13/23 08:17 11:55 Glucose POC Glucose 135 H 149 H OUTPATIENT ANTIDIABETIC REGIMEN: * Levemir 27 units SC BID * Humalog 10 units SC AC * HbA1c: 10.1% (04/28/23) ASSESSMENT: 07/13: * Sofiya received 22 units of insulin yesterday, 10 basal + 12 bolus. BSGs were: [phone] mg/dL. * Fasting BSG of 135 mg/dL today is at goal. No change to insulin regimen necessary. * Diet advanced and being tolerated. 07/11: * BSGs yesterday [id number] mg/dL. Patient received 16 units of insulin (10 units of basal and 6 units of bolus). * Today's BSGs are 100-139. * Patient's Lasix increased to 80 mg IV q8 hours. PO intake reduced. * Reduce last to 8 units if BSG < 140 mg/dL. * Continue Novolog as BSGs steady. 07/09: * BSGs yesterday were [phone] mg/dL. Patient received 32 units of insulin (20 units of basal and 12 units of bolus). * Fasting today is 102 mg/dL. * Decrease Lantus to 15 units nightly. * Continue Novolog as BSGs relatively stable. BACKGROUND * 53 year old admitted with DAHLIA and CHF. Pharmacy consulted for glycemic management. Patient's blood sugars low this morning, provider held AM basal insulin. BSGs continue to be low at lunch time, despite held AM basal and only 2 units novolog given at breakfast * Patient received total of 67 units yesterday, of which 54 units were basal. Regimen heavily basal weighted, possibly contributing to lower BSGs today - plan to decrease basal dose by ~50-60% and redose tonight. Removed CR for today for now until BSGs start to recover PLAN FOR INPATIENT GLYCEMIC CONTROL: * Hold outpatient oral diabetes medications * Basal insulin * Lantus 10 units SC HS * Bolus insulin * NovoLog per scale ACHS or Q6hrs while NPO * Goal Range: Low 120 mg/dL - High 160 mg/dL * Correction Factor: 25 mg/dL/unit * Nutritional / Prandial insulin per carb ratio of 1 unit per 8 grams CHO consumed
--- NOTE | 2023-07-13 14:01 | Nephrology Progress Note ---
Date of Service July 13, 2023 Assessment & Plan Admission and Anticipated Discharge Date Admission Date: July 04, 2023 Subjective Assessment & Plan (1) Acute on chronic renal insufficiency: Plan: nonoliguric stage 1 DAHLIA on CKD 3 > baseline creatinine 1.4-1.5 most recently. prerenal versus ATN; cannot rule out glomerular process w/ volume overload. rapidly progressive ckd as below; now stage 3 after no CKD as recently as August 2022. Creat improved to normal despite massive diuresis but now slowly rising again -Continue on low K diet -daily bmp (3) CHF (congestive heart failure): Seems Chronic. Mostly RT ventricle type. Strong Chance of Severe YVROSE. ABG and VBG shows Co2 retention and Compensated picture. recommend Night Bipap Will hold aldactone. Hold Lisinopril also if Creat continue to rise. Creat rising again slowly last 2 days. Reviewed cards note and Change to oral lasix 40 bid. Bicarb is Somewhat high but ABG and VBG shows Co2 retention and Compensated picture. No need to add diamox. She really needs night time Bipap if possible. S--has lot of nausea and feels bad. Did not get Bipap last night because of that. Breathing feels better. 1175 ml urine yesterday Physical Exam Constitutional: Chronic ill appearing and ++ obese; no acute distress at rest Respiratory: normal respiratory effort Auscultation: + rales and + rhonchi; no wheezes Cardiovascular: Rate/Rhythm: regular rate and regular rhythm Heart Sounds: normal S1 (distant heart sounds ) and normal S2 Vessels: + JVD Extremities: + edema (+2 pitting edema to thighs, abdomen, and pre-sacral region ) Gastrointestinal (Abdomen): Inspection/Auscultation: + abdomen distended and + abdominal edema Psychiatric: A+Ox3, euthymic affect Results & Data Vital Signs (Past 12 Hours) Vital Signs Temp Pulse Pulse Resp BP BP Pulse Ox 07/13/23 11:45 36.7 C 76 18 171/74 H 93 07/13/23 08:00 07/13/23 07:36 36.5 C 84 18 187/67 H 91 07/13/23 07:00 82 07/13/23 02:44 36.5 C 83 18 167/67 H 92 O2 Del Method O2 Flow Rate 07/13/23 11:45 Nasal Cannula 2 07/13/23 08:00 Room Air 07/13/23 07:36 Nasal Cannula 1 07/13/23 07:00 07/13/23 02:44 Nasal Cannula 2
[2023-07-13] MEDS: FUROSEMIDE 40 MG TAB PO SCH (17:28)
[2023-07-13] MEDS: carvediloL 3.125 MG TAB PO SCH (17:28)
[2023-07-13] MEDS: ISOSORBIDE DINITRATE 10 MG TAB PO SCH (20:48)
[2023-07-13] MEDS: MELATONIN 3 MG TAB PO SCH (20:48)
[2023-07-13] MEDS: LANTUS PER UNIT CHARGE SQ SCH (20:50)
[2023-07-13] MEDS ORDERED: ISOSORBIDE DINITRATE 20 MG TAB PO SCH (21:00)
[2023-07-13] MEDS: ACETAMINOPHEN 325 MG TAB PO PRN (22:03)
[2023-07-14] MEDS ORDERED: LOPERAMIDE HCL 2 MG CAP PO STA ×2 (03:35→08:49)
[2023-07-14] MEDS: HEPARIN SOD 5,000 UNIT/0.5 ML VIAL SQ SCH ×3 (05:28→21:49)
[2023-07-14] MEDS: ONDANSETRON INJ 2 MG/ML 2 ML VIAL IV SCH ×4 (05:28→23:54)
[2023-07-14 07:51] LABS: Hematocrit (blood only) 34.4 % (37.0-47.0); Hemoglobin 10.3 g/dl (12.0-16.0); Mean Corpuscular Hemoglobin 27.2 pg (25.0-34.0); Mean Corpuscular Hgb Conc 29.9 g/dL (32.0-36.0); Mean Platelet Volume 12.1 fL (9.4-12.4); Platelet Count 153 K/uL (130-400); RDW Coefficient of Variation 15.1 % (11.5-14.5); RDW Standard Deviation 50.4 fL (36.4-46.3); Red Blood Count 3.78 M/uL (4.20-5.40); White Blood Count 5.94 K/ul (4.8-10.8)
--- NOTE | 2023-07-14 08:15 | Hospitalist Progress Note ---
Date of Service July 14, 2023 Assessment & Plan (1) CHF (congestive heart failure): (2) Hypertension: (3) Diabetic ulcer of foot associated with type 2 diabetes mellitus, with bone involvement without evidence of necrosis: (4) Lymphedema of both lower extremities: (5) Anemia: (6) UTI (urinary tract infection): (7) Type 2 diabetes mellitus, with long-term current use of insulin: (8) Diabetic peripheral neuropathy associated with type 2 diabetes mellitus: (9) Obesity: Plan: Ms. Rand is a 53-year-old male with PMH of insulin-dependent T2DM, diabetic neuropathy, diabetic nephropathy with CKD stage III, HTN, HLD, HFpEF, morbid obesity, necrotizing fasciitis, bilateral lower extremity lymphedema, TRACI, left chronic heel ulcer presented to the ED for generalized swelling/increased edema of BLE and not feeling well. She is being managed for the following #Nausea *improved today #Relative hypoglycemia #Multiple BM #History of IBS -history of impaction, generalized abdominal pain -Will trial reglan for nausea/promotility iso diabetes -KUB with stool burden initially with concern for impending impaction given recent history of such, 1x bisacodyl suppository and bowel regimen; now course with diarrhea -CTM with liquid diet--trial of advancing diet today -c diff sent negative -?relative hypoglycemia contributing, POC in low 100s--quite low given A1C 10% --reduce glargine--doing better with juice intake, but still feels poorly -Trial dicyclomine, hold bowel regimen, reassess -Discontinued Daptomycin 07/12--wound appears chronic and no changes overall, drainage/crusting c/w chronic lymphedema, however, was not hospitalist who initiated therapy therefore treatment efficacy difficult to assess, but no notable improvement since following--will monitor closely (received 7 days CTX and x5 days dapto, likely sufficient) -Antiemitics prn -Additional immodium prn #Hypertension -Antihypertensives held thus far given aggressive diuresis -Hold lisinopril, increase 40mg qam -Hydalazine TID --increased to 100mg TID, imdur 20mg -Increased coreg 12.5 mg BID #Acute exacerbation of heart failure with preserved ejection fraction #Acute Right heart failure Upon chart review, patient's weight of 146 kg on 05/08/2023, presenting weight at 176.6 kg on 07/04/2023. Admitting CXR with pulmonary vascular congestion, at admission : 2-3+ pitting edema BLE along with her chronic lymphedema and UE pitting edema noted. Patient's home Lasix was increased from 20mg to 40 mg the day prior to arrival at the [facility]. Troponin flat trended in 70s. Patient with no chest pain. Admitting EKG with no acute ST or T changes. Echo with EF of 55 to 60%, grade 1 diastolic dysfunction, no LV segmental wall motion abnormalities, flattened septum consistent with RV pressure/volume overload. Metoprolol on hold due to bradycardia. Hydralazine dc'd / gabapentin held as it can worsen edema however, blood pressure difficult to manage at this time therefore hydralazine resumed -Continue Daily weights. Strict I's and O's, monitor and replete electrolytes as appropriate. -Trial BiPAP qhs and with naps, encourage compliance -lasix to q12 -Cardiology following, appreciate recommendations -Held spironolactone 12.5mg daily, lisinopril -hydral TID, isoduril TID, uptitrate as able -lisinopril 40mg qam held 2/2 renal dysfunction -Increased coreg 12.5 bid #Acute kidney injury over CKD stage III *improving #Metabolic alkalosis, compensation for YVROSE/OHS - Admitting creatinine of 1.81, baseline creatinine around 1.4. -Continue diuresis as tolerated -No further IV mag, continue mag BID -Encourage BiPAP when able -Hold lisinopril #Acute UTI: Patient started on Rocephin 07/04,klebsiella UTI, completed 7 days of CTX #LLE Cellulitis #Chronic lymphedema - discontinued daptomycin given nausea/no clear signs of infection/improvement of area. chronic changes appreciated, received 7 days ctx and 5 days dapto. WIll monitor and WCN following Other chronic medical conditions: Iron deficiency anemia: Baseline hemoglobin around 10, stable, continue home iron supplementation Insulin-dependent T2DM: Complicated with nephropathy and neuropathy. A1c of 10.1% on 04/28/2023. Sliding scale insulin while in hospital. Was taken off of Ozempic about 1 month ago as it was assumed that this was causing nausea for the patient. log sorter consult for uncontrolled diabetes. Diabetic neuropathy: hold home gabapentin Morbid obesity: Encourage diet/lifestyle modification with exercise DVT prophylaxis: Heparin subcu Full code Disposition: PT/OT, CM to assist with DC plan. Admission and Anticipated Discharge Date Admission Date: July 04, 2023 Subjective a bit frustrated this morning with medical condition; discussed plan in depth Patient states her nausea is improved but notes diarrhea is upsetting She knows she needs to trial BiPAP and will make effort today Blood pressure difficult to manage and she is agreeable to adjustments in regimen She denies any other acute concerns and is agreeable to nocturnal study for bipap approval She denies chest pain, palpitations, worsening of SOB outside of baseline (1-2 weeks) Review of Systems Review of Systems: All systems reviewed & are unremarkable except as noted in Subjective Physical Exam 2 Constitutional: WD/WN, vitals as above Respiratory: normal respiratory effort, lungs clear to auscultation Cardiovascular: RRR, no murmur, no edema Results & Data Results & Data Vital Signs (Past 12 Hours) Vital Signs Temp Pulse Resp BP Pulse Ox O2 Del Method O2 Flow Rate 07/14/23 03:21 36.3 C L 69 18 153/73 H 93 Nasal Cannula 2 07/13/23 23:59 36.6 C 71 16 145/64 H 93 Nasal Cannula 1 Laboratory Results Short CBC 07/14/23 Range/Units 07:12 WBC 5.94 (4.8-10.8) K/ul Hgb 10.3 L (12.0-16.0) g/dl Hct 34.4 L (37.0-47.0) % Plt Count 153 (130-400) K/uL BMP 07/14/23 07:12 Sodium 142 Potassium 3.6 Chloride 95 L Carbon Dioxide 42 H* BUN 29 H Creatinine 1.79 H D Glucose 119 H Calcium 9.2 Medications Administered Home Medications Medication Instructions Recorded Confirmed Last Taken aspirin 81 mg tablet,delayed 81 mg PO QAM 03/14/22 07/04/23 04/27/23 release ferrous sulfate 325 mg (65 mg 325 mg PO DAILY 03/14/22 07/04/23 04/27/23 iron) tablet furosemide 40 mg tablet (Lasix) 40 mg PO QAM 05/17/22 07/04/23 07/03/23 insulin detemir U-100 100 unit/mL 27 unit subcut BID 05/17/22 07/04/23 07/03/23 subcutaneous solution (Levemir U-100 Insulin) insulin lispro 100 unit/mL 10 unit subcut AC 05/17/22 07/04/23 07/03/23 subcutaneous solution acetaminophen 500 mg tablet 1,000 mg PO Q6H PRN Pain 03/13/23 07/04/23 06/30/23 (Tylenol Extra Strength) cyanocobalamin (vitamin B-12) 1,000 mcg PO DAILY 03/13/23 07/04/23 04/27/23 1,000 mcg tablet (Vitamin B-12) metoprolol succinate 25 mg 25 mg PO QAM 03/13/23 07/04/23 07/03/23 tablet,extended release 24 hr gabapentin 600 mg tablet 600 mg PO BID #60 tabs 05/08/23 07/04/23 07/03/23 fluoxetine 20 mg capsule (Prozac) 20 mg PO DAILY 07/04/23 07/04/23 07/04/23 hydralazine 50 mg tablet 50 mg PO QAM 07/04/23 07/04/23 07/03/23 melatonin 3 mg tablet 3 mg PO HS 07/04/23 07/04/23 07/03/23 Active Medications Generic Name Dose Route Start Last Admin Trade Name Freq PRN Reason Stop Dose Admin Acetaminophen 650 mg 07/04/23 15:34 07/13/23 22:03 Acetaminophen 325 Mg Tab PO 08/03/23 15:33 650 mg Q4H PRN Administration Moderate Pain (Scale 4, 5, 6) Aspirin 81 mg 07/04/23 16:00 07/14/23 09:53 Aspirin 81 Mg Ectab PO 08/03/23 15:59 81 mg QAM MOHAUMD Administration Cyanocobalamin 1,000 mcg 07/05/23 09:00 07/14/23 09:54 Cyanocobalamin (B-12) 500 Mcg Tablet PO 08/04/23 08:59 1,000 mcg DAILY MOHAMUD Administration Dicyclomine HCl 20 mg 07/13/23 09:00 07/14/23 12:57 Dicyclomine Hcl 10 Mg Cap PO 08/12/23 08:59 20 mg QID MOHAMUD Administration Ferrous Sulfate 325 mg 07/05/23 09:00 07/09/23 08:24 Ferrous Sulfate 325 Mg Tab PO 08/04/23 08:59 325 mg DAILY MOHAMUD Administration Fluoxetine HCl 20 mg 07/04/23 16:00 07/14/23 09:54 Fluoxetine Hcl 20 Mg Cap PO 08/03/23 15:59 20 mg DAILY MOHAMUD Administration Furosemide 40 mg 07/13/23 17:00 07/14/23 09:53 Furosemide 40 Mg Tab PO 08/12/23 16:59 40 mg BID17 MOHAMUD Administration Gabapentin 600 mg 07/04/23 21:00 07/07/23 09:01 Gabapentin 600 Mg Tab PO 08/03/23 20:59 600 mg BID MOHAMUD Administration Heparin Sodium (Porcine) 5,000 units 07/07/23 14:00 07/14/23 13:01 Heparin Sod 5,000 Unit/0.5 Ml Vial SQ 08/06/23 13:59 5,000 units Q8 MOHAMUD Administration Hydralazine HCl 100 mg 07/14/23 09:00 07/14/23 13:03 Hydralazine Tab 50 Mg Tab PO 08/13/23 08:59 100 mg TID MOHAMDU Administration Pantoprazole Sodium 40 mg/ 10 mls @ 5 mls/min 07/10/23 21:00 07/14/23 10:03 Syringe IV 08/09/23 20:59 5 mls/min BID MOHAMUD Administration Promethazine HCl 12.5 mg/ 50.5 mls @ 202 mls/hr 07/11/23 00:46 07/12/23 16:38 Sodium Chloride IV 08/10/23 00:45 Infused Q6H PRN Infusion Nausea And Vomiting Insulin Aspart 0 units 07/04/23 15:34 07/14/23 12:55 Insulin Aspart Per Unit Charge SC 08/03/23 15:33 5 units ACHS MOHAMUD Administration Protocol Insulin Glargine 10 units 07/12/23 21:00 07/13/23 20:50 Lantus Per Unit Charge SQ 08/10/23 20:59 10 units HS MOHAMUD Administration Protocol Isosorbide Dinitrate 10 mg 07/13/23 18:45 07/14/23 12:56 Isosorbide Dinitrate 10 Mg Tab PO 08/12/23 18:44 10 mg TID@0700,1200,1700 MOHAMUD Administration Magnesium Chloride 64 mg 07/08/23 10:30 07/14/23 09:52 Magnesium Chloride W/Calcium 64mg Delayed Rel Tab PO 08/07/23 10:29 64 mg BID MOHAMUD Administration Melatonin 3 mg 07/04/23 21:00 07/13/23 20:48 Melatonin 3 Mg Tab PO 08/03/23 20:59 3 mg HS MOHAMUD Administration Miscellaneous 15 - 30 gm 07/04/23 15:34 07/07/23 08:21 Carbohydrates For Hypoglycemia PO 08/03/23 15:33 15 gm UD PRN Administration Hypoglycemia Protocol Ondansetron HCl 4 mg 07/12/23 11:00 07/14/23 12:56 Ondansetron Inj 2 Mg/Ml 2 Ml Vial IV 08/11/23 10:59 4 mg Q6 MOHAMUD Administration Spironolactone 12.5 mg 07/07/23 11:30 07/12/23 08:30 Spironolactone 12.5 Mg Tab PO 08/06/23 11:29 12.5 mg DAILY MOHAMUD Administration (2) Hypertension Hypertension type: unspecified Qualified Code(s): I10 - Essential (primary) hypertension (7) Type 2 diabetes mellitus, with long-term current use of insulin Diabetes mellitus complication status: without complication Qualified Code(s): E11.9 - Type 2 diabetes mellitus without complications; Z79.4 - collaborative physician (current) use of insulin
[2023-07-14 08:25] LABS: BUN Creatinine Ratio 16.2 (10-20); Calcium 9.2 mg/dl (8.6-10.3); Creatinine Clr Calc Pharmacy 55.9 ml/min; Est GFR (African American) 36.6 ml/min; Est GFR (Non-African American) 31.6 ml/min; Potassium 3.6 mmol/L (3.5-5.1)
[2023-07-14] MEDS ORDERED: carvediloL 3.125 MG TAB PO ONE (08:46)
[2023-07-14] MEDS: carvediloL 3.125 MG TAB PO SCH (08:48)
[2023-07-14] MEDS: INSULIN ASPART PER UNIT CHARGE SC SCH ×4 (09:49→21:43)
[2023-07-14] MEDS: ISOSORBIDE DINITRATE 10 MG TAB PO SCH ×3 (09:51→16:48)
[2023-07-14] MEDS: MAGNESIUM CHLORIDE W/CALCIUM 64MG DELAYED REL TAB PO SCH ×2 (09:52→21:47)
[2023-07-14] MEDS: DICYCLOMINE HCL 10 MG CAP PO SCH ×4 (09:52→21:47)
[2023-07-14] MEDS: ASPIRIN 81 MG ECTAB PO SCH (09:53)
[2023-07-14] MEDS: FUROSEMIDE 40 MG TAB PO SCH ×2 (09:53→16:47)
[2023-07-14] MEDS: CYANOCOBALAMIN (B-12) 500 MCG TABLET PO SCH (09:54)
[2023-07-14] MEDS: FLUoxetine HCL 20 MG CAP PO SCH (09:54)
[2023-07-14] MEDS: hydrALAZINE TAB 50 MG TAB PO SCH ×3 (09:54→21:48)
[2023-07-14] MEDS: PANTOprazole 40 MG in SYRINGE 0 ML IV SCH ×2 (10:03→21:49)
--- NOTE | 2023-07-14 10:26 | Nephrology Progress Note ---
Date of Service July 14, 2023 Assessment & Plan (1) Acute on chronic renal insufficiency: Plan: nonoliguric stage 1 DAHLIA on CKD 3 > baseline creatinine 1.4-1.5 most recently. creatinine had improved to normal w/ aggressive diuresis; now slowly rising again. prerenal versus ATN in cardiorenal picture; cannot rule out glomerular process w/ volume overload. rapidly progressive ckd as below; now stage 3 after no CKD as recently as August 2022. -Continue on low K diet -daily bmp -Continue lasix as below (2) CKD (chronic kidney disease) stage 3, GFR 30-59 ml/min: Plan: She has rapidly progressive CKD >> prior to March 2023 creatinine was 0.8 (last lab check was February 2023); then in March during an admission she had DAHLIA w/ labile renal function ever since, 1.4-1.5 range. -Will need neph f/u after d/c -ordered prot/creat ratio >> 2.5 gm proteinuria (3) CHF (congestive heart failure): Plan: -cont lasix 40 mg po bid 17 -1.5L FR -daily bmp -hold hydralazine which can worsen edema and not effective once daily in any event -note that high doses of gabapentin can also worsen edema > on hold currently Night Bipap > both aldactone and lisinopril now on hold; just started po lasix 07/13 Creat rising last 3 days. Reviewed cards note and Changed to oral lasix 40 bid 07/13 PM dose Bicarb is Somewhat high but ABG and VBG shows Co2 retention and Compensated picture. No need to add diamox. She really needs night time Bipap if possible. Admission and Anticipated Discharge Date Admission Date: July 04, 2023 Subjective no interval events; diarrhea relieved by loperamide; no sob, no worsening edema Review of Systems 2 Review of Systems: All systems reviewed & are unremarkable except as noted in Subjective Physical Exam 2 Constitutional: well developed, well nourished, + morbidly obese, + physical limitations (unable to roll in bed w/o effort) and cooperative; no acute distress Eyes: EOM intact bilaterally ENMT: Ears: no external ear abnormality Nose: no external nose abnormality Mouth: + dry oral mucous membranes Neck: no nuchal rigidity Respiratory: normal respiratory effort Auscultation: + diminished lung sounds Cardiovascular: Rate/Rhythm: regular rate (HS distant) and regular rhythm E xtremities: + edema (3+ BLE distally and 1-2+ proximally) Gastrointestinal (Abdomen): Inspection/Auscultation: normal bowel sounds P ercussion/Palpation: abdomen soft; abdomen nontender Musculoskeletal: Extremities: + abnormal strength Skin: no rashes, warm and dry distal RLE bandaged Psychiatric: Orientation: alert and oriented x 3 Results & Data Vital Signs (Past 12 Hours) Vital Signs Temp Pulse Pulse Resp BP BP Pulse Ox 07/14/23 09:54 76 20 98 07/14/23 08:22 36.4 C L 70 18 189/94 H 96 07/14/23 03:21 36.3 C L 69 18 153/73 H 93 07/13/23 23:59 36.6 C 71 16 145/64 H 93 O2 Del Method O2 Flow Rate FiO2 07/14/23 09:54 21 07/14/23 08:22 Nasal Cannula 2 07/14/23 03:21 Nasal Cannula 2 07/13/23 23:59 Nasal Cannula 1 Laboratory Results 07/14/23 07:12 07/14/23 07:12 (2) CKD (chronic kidney disease) stage 3, GFR 30-59 ml/min Chronic kidney disease stage 3 subtype: unspecified whether 3a or 3b Qualified Code(s): N18.30 - Chronic kidney disease, stage 3 unspecified
--- NOTE | 2023-07-14 14:34 | Cardiology Progress Note ---
Date of Service July 14, 2023 Assessment & Plan (1) Acute on chronic heart failure with preserved ejection fraction (HFpEF): (2) Right heart failure: (3) Uncontrolled hypertension: (4) Acute on chronic renal insufficiency: Plan Creatinine continues to trend upward today. I suspect related to recent diuresis and nausea, and vomiting. Appreciate nephrology input. Continue oral diuretic therapy. Hold Aldactone and lisinopril. Monitor daily weight, fluid balance, and GFR. Volume status somewhat difficult to dog show judge given body habitus. Agree with titration of carvedilol to 6.25 mg twice daily. Monitor telemetry. I spent a total of 30 minutes on the date of service in preparation, delivery, and documentation of the care provided to this patient, excluding any time spent in the performance of separately billed services. Admission and Anticipated Discharge Date Admission Date: July 04, 2023 Subjective Patient seen and examined at bedside. Reports nausea this morning and diarrhea overnight. No chest pain or shortness of breath. Telemetry reveals sinus rhythm with heart rate ranging from 60s-70s. Carvedilol added yesterday. Blood pressure not significantly changed. Hydralazine recently titrated to 50 mg 3 times daily. Creatinine trending upward. Review of Systems Review of Systems: All systems reviewed & are unremarkable except as noted in Subjective Physical Exam Constitutional: well nourished and + morbidly obese Respiratory: normal respiratory effort Auscultation: + diminished lung sounds (Bases bilateral); no wheezes Cardiovascular: Rate/Rhythm: regular rate and regular rhythm Heart Sounds: normal S1 and normal S2; no murmur Vessels: no JVD Extremities: + edema (2-3+ bilateral lower extremity edema with stasis changes) Gastrointestinal (Abdomen): Inspection/Auscultation: + abdomen distended Percussion/Palpation: abdomen soft; abdomen nontender, no guarding and abdomen not rigid Neurologic: CN's II-XI intact bilaterally; no focal motor deficits Results & Data Vital Signs (Past 12 Hours) Vital Signs Temp Pulse Pulse Resp BP BP Pulse Ox 07/14/23 12:29 36.6 C 75 18 179/75 H 95 07/14/23 11:58 93 07/14/23 09:54 76 20 98 07/14/23 09:00 07/14/23 08:22 36.4 C L 70 18 189/94 H 96 07/14/23 03:21 36.3 C L 69 18 153/73 H 93 O2 Del Method O2 Flow Rate FiO2 07/14/23 12:29 Nasal Cannula 2 07/14/23 11:58 2 07/14/23 09:54 21 07/14/23 09:00 Room Air, Nasal Cannula, BiPAP 2 07/14/23 08:22 Nasal Cannula 2 07/14/23 03:21 Nasal Cannula 2 Laboratory Results CBC 07/14/23 Range/Units 07:12 WBC 5.94 (4.8-10.8) K/ul RBC 3.78 L (4.20-5.40) M/uL Hgb 10.3 L (12.0-16.0) g/dl Hct 34.4 L (37.0-47.0) % Plt Count 153 (130-400) K/uL Comprehensive Metabolic Panel 07/14/23 Range/Units 07:12 Sodium 142 (136-145) mmol/L Potassium 3.6 (3.5-5.1) mmol/L Chloride 95 L (98-107) mmol/L Carbon Dioxide 42 H* (21-32) mmol/L BUN 29 H (6-23) mg/dl Creatinine 1.79 H D (0.6-1.2) mg/dl Glucose 119 H (70-99(Fasting)) mg/dl Calcium 9.2 (8.6-10.3) mg/dl Intake and Output 07/13/23 07/14/23 07/14/23 22:59 06:59 14:59 Intake Total 360 / 460 100 / 460 Output Total 525 / 676 151 / 676 Balance -165 / -216 -51 / -216 Intake: Oral 360 / 460 100 / 460 Output: Urine 75 / 75 Urine Amount (Catheter) 450 / 600 150 / 600 [place]/Indwelling 450 / 600 150 / 600 # Bowel Movements Other: Weight 147 kg (2) Right heart failure Heart failure chronicity: acute on chronic Qualified Code(s): I50.813 - Acute on chronic right heart failure
[2023-07-14] MEDS ORDERED: carvediloL 6.25 MG TAB PO SCH (17:00)
[2023-07-14] MEDS: carvediloL 12.5 MG TAB PO SCH (17:57)
[2023-07-14] MEDS: LANTUS PER UNIT CHARGE SQ SCH (21:48)
[2023-07-14] MEDS: MELATONIN 3 MG TAB PO SCH (21:48)
[2023-07-14 21:55] LABS: HCO3 ABG 45 mmol/L (19-24); Oxygen Saturation ABG 98.8 % (90-95); PCO2 ABG 52 mmHg (35-46); PO2 ABG 92 mmHg (80-95)
[2023-07-14 21:58] LABS: Allen Test Pos (Pos)
[2023-07-14 22:13] LABS: pH ABG 7.54 (7.35-7.45)
[2023-07-14] MEDS ORDERED: SODIUM CHLORIDE 0.9% 1,000 ML IV SCH (22:15)
[2023-07-15] MEDS: ONDANSETRON INJ 2 MG/ML 2 ML VIAL IV SCH ×3 (05:53→17:28)
[2023-07-15] MEDS: HEPARIN SOD 5,000 UNIT/0.5 ML VIAL SQ SCH ×3 (05:53→21:36)
[2023-07-15 06:32] LABS: Hematocrit (blood only) 32.1 % (37.0-47.0); Hemoglobin 9.7 g/dl (12.0-16.0); Mean Corpuscular Hemoglobin 27.4 pg (25.0-34.0); Mean Corpuscular Hgb Conc 30.2 g/dL (32.0-36.0); Mean Corpuscular Volume 90.7 fL (80.0-100.0); Mean Platelet Volume 12.3 fL (9.4-12.4); Platelet Count 148 K/uL (130-400); RDW Coefficient of Variation 15.1 % (11.5-14.5); RDW Standard Deviation 50.2 fL (36.4-46.3); Red Blood Count 3.54 M/uL (4.20-5.40); White Blood Count 5.39 K/ul (4.8-10.8)
[2023-07-15 06:52] LABS: BUN Creatinine Ratio 13.3 (10-20); Calcium 8.3 mg/dl (8.6-10.3); Creatinine Clr Calc Pharmacy 44.8 ml/min; Est GFR (African American) 27.7 ml/min; Est GFR (Non-African American) 23.9 ml/min; Magnesium 1.7 mg/dl (1.7-2.4); Phosphorus 3.1 mg/dl (2.5-4.9); Potassium 3.4 mmol/L (3.5-5.1)
[2023-07-15] MEDS ORDERED: POTASSIUM CHLORIDE CRTAB 20 MEQ TABCR PO STA (08:23)
--- NOTE | 2023-07-15 08:57 | Pharmacy Report ---
Pharmacy Glycemic Short Note 2 - Date of Service July 15, 2023 - Glycemic Short BSG Results (Last 24 hours): 07/14/23 07/14/23 07/14/23 12:27 17:14 20:21 Glucose POC Glucose 124 H 170 H 144 H 07/15/23 07/15/23 05:47 08:19 Glucose 90 POC Glucose 110 H OUTPATIENT ANTIDIABETIC REGIMEN: * Levemir 27 units SC BID * Humalog 10 units SC AC * HbA1c: 10.1% (04/28/23) ASSESSMENT: 07/15: * BSGs remain reasonably well-controlled over past 72 hours * Received 25 units of insulin (10 units of basal and 15 units of prandial/correctional bolus) * Fasting BSG of 110 mg/dL this morning * Do not anticipate any changes to glycemic regimen today 07/13: * Sofiya received 22 units of insulin yesterday, 10 basal + 12 bolus. BSGs were: [phone] mg/dL. * Fasting BSG of 135 mg/dL today is at goal. No change to insulin regimen necessary. * Diet advanced and being tolerated. 07/11: * BSGs yesterday [id number] mg/dL. Patient received 16 units of insulin (10 units of basal and 6 units of bolus). * Today's BSGs are 100-139. * Patient's Lasix increased to 80 mg IV q8 hours. PO intake reduced. * Reduce last to 8 units if BSG < 140 mg/dL. * Continue Novolog as BSGs steady. 07/09: * BSGs yesterday were [phone] mg/dL. Patient received 32 units of insulin (20 units of basal and 12 units of bolus). * Fasting today is 102 mg/dL. * Decrease Lantus to 15 units nightly. * Continue Novolog as BSGs relatively stable. BACKGROUND * 53 year old admitted with DAHLIA and CHF. Pharmacy consulted for glycemic management. Patient's blood sugars low this morning, provider held AM basal insulin. BSGs continue to be low at lunch time, despite held AM basal and only 2 units novolog given at breakfast * Patient received total of 67 units yesterday, of which 54 units were basal. Regimen heavily basal weighted, possibly contributing to lower BSGs today - plan to decrease basal dose by ~50-60% and redose tonight. Removed CR for today for now until BSGs start to recover PLAN FOR INPATIENT GLYCEMIC CONTROL: * Basal insulin * Lantus 10 units SC HS * Bolus insulin * NovoLog per scale ACHS or Q6hrs while NPO * Goal Range: Low 120 mg/dL - High 160 mg/dL * Correction Factor: 25 mg/dL/unit * Nutritional / Prandial insulin per carb ratio of 1 unit per 8 grams CHO consumed
[2023-07-15] MEDS: ASPIRIN 81 MG ECTAB PO SCH (09:44)
[2023-07-15] MEDS: hydrALAZINE TAB 50 MG TAB PO SCH ×3 (09:45→21:35)
[2023-07-15] MEDS: DICYCLOMINE HCL 10 MG CAP PO SCH ×4 (09:45→21:36)
[2023-07-15] MEDS: FLUoxetine HCL 20 MG CAP PO SCH (09:46)
[2023-07-15] MEDS: carvediloL 12.5 MG TAB PO SCH ×2 (09:46→17:33)
[2023-07-15] MEDS: FUROSEMIDE 40 MG TAB PO SCH ×2 (09:46→17:33)
[2023-07-15] MEDS: CYANOCOBALAMIN (B-12) 500 MCG TABLET PO SCH (09:47)
[2023-07-15] MEDS: MAGNESIUM CHLORIDE W/CALCIUM 64MG DELAYED REL TAB PO SCH (09:47)
[2023-07-15] MEDS: ACETAMINOPHEN 325 MG TAB PO PRN (09:48)
[2023-07-15] MEDS: LOPERAMIDE HCL 2 MG CAP PO PRN (10:02)
[2023-07-15] MEDS: PANTOprazole 40 MG in SYRINGE 0 ML IV SCH ×2 (10:02→21:34)
[2023-07-15] MEDS: INSULIN ASPART PER UNIT CHARGE SC SCH ×4 (10:02→21:36)
[2023-07-15] MEDS: ISOSORBIDE DINITRATE 10 MG TAB PO SCH (10:13)
--- NOTE | 2023-07-15 12:03 | Nephrology Progress Note ---
Date of Service July 15, 2023 Assessment & Plan (1) Acute on chronic renal insufficiency: Plan: recurrent/further worsening and now oliguric stage 1 DAHLIA on CKD 3 > baseline creatinine 1.4-1.5 most recently. creatinine had improved to normal w/ aggressive diuresis; now slowly rising again. prerenal versus ATN in cardiorenal picture; cannot rule out glomerular process w/ volume overload. also w/ rapidly progressive ckd as below; now stage 3 (prior to this admission) after no CKD as recently as August 2022. UOP drifting down (1175 > 600 > 375 ML yest > 225 mL so far today); bedweights starting to trend back up. her lasix gtt was started 07/06 and lowered from 20 mg hourly > 10 mg on 07/08, then stopped on 07/10; a few days later, uptrend in creatinine recurs, though in this timeframe also with several GI issues > limited po intake, N, diarrhea. also on dapto 07/06-07/12, stopped in part d/t N. -daily bmp -Continue lasix as below po -hold slow mag given diarrhea and monitor mag daily -increased K dose to 20 mg bid; also had 40 mEq po x 1 today -repeat UACM ordered -cont strict I/O Care coordinated w/ Dr Howard. I spent a total of 55 minutes coordinating, documenting, and providing care for this patient excluding time spent in the performance of separately billed services. This included personally reviewing all current laboratories and imaging studies, medication reconciliation, outpatient chart review, and discussion with other physicians, with nursing, and as applicable with the patient and family. (2) CKD (chronic kidney disease) stage 3, GFR 30-59 ml/min: Plan: She has rapidly progressive CKD >> prior to March 2023 creatinine was 0.8 (last lab check was February 2023); then in March during an admission she had DAHLIA w/ labile renal function ever since, 1.4-1.5 range. 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 albumin has dropped from 3.2 (a baseline) at admission to 2.3. unremarkable renal/adrenal imaging 07/10. -ordering glomerular dz w/u w/ AM labs tomorrow > ESR, antihistone Ab, complement, ANCA, anti dsDNA, anti GBM, hepatitis panel, serum free light chains and immunofixation; cannot r/o need for renal bx -attempted to order anti GBM but order not found> written as quest generic -24 hr urine deferred for now w/ relative anuria but may need to check prot electrophor/IF urine on 24 hr study -Will need neph f/u after d/c (3) CHF (congestive heart failure): Plan: -cont lasix 40 mg po bid 17 -1.5L FR -daily bmp -hydralazine at 50 mg tid -coreg being uptitrated to 12.5 bid -note that high doses of gabapentin can also worsen edema > on hold currently Night Bipap > both aldactone and lisinopril now on hold; just started po lasix 07/13 Creat rising last 4 days. Reviewed cards note and Changed to oral lasix 40 bid 07/13 PM dose Bicarb is Somewhat high but ABG and VBG shows Co2 retention and Compensated picture. No need to add diamox. She really needs night time Bipap if possible. Admission and Anticipated Discharge Date Admission Date: July 04, 2023 Subjective renal function continues to worsen. ABG last evening w/ significant alkalemia and had 500 mL NS. denies n/v on standing zofran, denies excessive BM (4 charted for today); Physical Exam 2 Constitutional: well developed, well nourished, + morbidly obese, + physical limitations (unable to roll in bed w/o effort) and cooperative; no acute distress Eyes: EOM intact bilaterally ENMT: Ears: no external ear abnormality Nose: no external nose abnormality Mouth: + dry oral mucous membranes Neck: no nuchal rigidity Respiratory: normal respiratory effort Auscultation: + diminished lung sounds Cardiovascular: Rate/Rhythm: regular rate (HS distant) and regular rhythm E xtremities: + edema (3+ BLE distally and 1-2+ proximally) Gastrointestinal (Abdomen): Inspection/Auscultation: normal bowel sounds P ercussion/Palpation: abdomen soft; abdomen nontender Musculoskeletal: Extremities: + abnormal strength Skin: no rashes, warm and dry Psychiatric: Orientation: alert and oriented x 3 Results & Data Vital Signs (Past 12 Hours) Vital Signs Temp Pulse Pulse Pulse Resp BP BP 07/15/23 11:25 36.6 C 96 H 18 152/71 H 07/15/23 08:36 07/15/23 07:22 36.6 C 74 18 109/72 07/15/23 03:27 36.3 C L 64 20 123/63 07/15/23 03:13 58 L 21 07/15/23 01:30 62 07/15/23 00:11 36.7 C 60 18 133/53 L Pulse Ox Pulse Ox O2 Del Method O2 Del Method O2 Flow Rate O2 Flow Rate 07/15/23 11:25 95 Nasal Cannula 2 07/15/23 08:36 Room Air 07/15/23 07:22 07/15/23 03:27 92 Room Air 07/15/23 03:13 94 1 07/15/23 01:30 92 BiPAP 1 07/15/23 00:11 95 Nasal Cannula 2 Laboratory Results 07/15/23 05:47 07/15/23 05:47 (2) CKD (chronic kidney disease) stage 3, GFR 30-59 ml/min Chronic kidney disease stage 3 subtype: unspecified whether 3a or 3b Qualified Code(s): N18.30 - Chronic kidney disease, stage 3 unspecified
--- NOTE | 2023-07-15 16:01 | Hospitalist Progress Note ---
Date of Service July 15, 2023 Assessment & Plan (1) CHF (congestive heart failure): (2) Hypertension: (3) Diabetic ulcer of foot associated with type 2 diabetes mellitus, with bone involvement without evidence of necrosis: (4) Lymphedema of both lower extremities: (5) Anemia: (6) UTI (urinary tract infection): (7) Type 2 diabetes mellitus, with long-term current use of insulin: (8) Diabetic peripheral neuropathy associated with type 2 diabetes mellitus: (9) Obesity: Plan: Ms. Rand is a 53-year-old male with PMH of insulin-dependent T2DM, diabetic neuropathy, diabetic nephropathy with CKD stage III, HTN, HLD, HFpEF, morbid obesity, necrotizing fasciitis, bilateral lower extremity lymphedema, TRACI, left chronic heel ulcer presented to the ED for generalized swelling/increased edema of BLE and not feeling well, and admitted for acute heart failure with preserved EF. Patient responded robustly to IV diuersis with up to 8L UOP in a day; however course complicated by nausea, vomiting, and diarrhea. There was no clear eitology of these gastric concerns, but potentially related to daptomycin which was initiated for a presumptive cellulitis of RLE. Discontinuation of daptomycin, as well as less strict glucose control, was noted by improved GI symptoms. During this time, lasix was held intermittently and dosing readjusted. As well as additional of ACEi for blood pressure control. Since 07/10 there has been a precipitous increase in Cr and decrease in urine output. Krishna remains in place now for further IOs of acute on chronic kidney injury. #Acute kidney injury over CKD stage III *improving #Metabolic alkalosis, compensation for YVROSE/OHS - Admitting creatinine of 1.81, baseline creatinine around 1.4. -Continue diuresis as tolerated -No further IV mag, continue mag BID -Encourage BiPAP when able -Hold lisinopri -Urine lytes ordered, UA -Strict I/OS -Nephrology on consult -Renal US duplex iso increase Cr s/p ACEi #Nausea *improved today #Relative hypoglycemia #Multiple BM #History of IBS -history of impaction, generalized abdominal pain -Will trial reglan for nausea/promotility iso diabetes -KUB with stool burden initially with concern for impending impaction given recent history of such, 1x bisacodyl suppository and bowel regimen; now course with diarrhea -CTM with liquid diet--trial of advancing diet today -c diff sent negative -?relative hypoglycemia contributing, POC in low 100s--quite low given A1C 10% --reduce glargine--doing better with juice intake, but still feels poorly -Trial dicyclomine, hold bowel regimen, reassess -Discontinued Daptomycin 07/12--wound appears chronic and no changes overall, drainage/crusting c/w chronic lymphedema, however, was not hospitalist who initiated therapy therefore treatment efficacy difficult to assess, but no notable improvement since following--will monitor closely (received 7 days CTX and x5 days dapto, likely sufficient) -Antiemitics prn -Additional immodium prn #Hypertension -Antihypertensives held thus far given aggressive diuresis -Discontinue ACEi -Relatively hypotensive decreased 50 Hydalazine TID (hold for SBP <120), disco ntinued imdur 20mg -Continue coreg 12.5 mg BID #Acute exacerbation of heart failure with preserved ejection fraction #Acute Right heart failure Upon chart review, patient's weight of 146 kg on 05/08/2023, presenting weight at 176.6 kg on 07/04/2023. Admitting CXR with pulmonary vascular congestion, at admission : 2-3+ pitting edema BLE along with her chronic lymphedema and UE pitting edema noted. Patient's home Lasix was increased from 20mg to 40 mg the day prior to arrival at the [facility]. Troponin flat trended in 70s. Patient with no chest pain. Admitting EKG with no acute ST or T changes. Echo with EF of 55 to 60%, grade 1 diastolic dysfunction, no LV segmental wall motion abnormalities, flattened septum consistent with RV pressure/volume overload. Metoprolol on hold due to bradycardia. Hydralazine dc'd / gabapentin held as it can worsen edema however, blood pressure difficult to manage at this time therefore hydralazine resumed -Continue Daily weights. Strict I's and O's, monitor and replete electrolytes as appropriate. -Encourage BiPAP qhs and with naps, encourage compliance -PO lasix to q12 -Cardiology following, appreciate recommendations -Held spironolactone 12.5mg daily and lisinopril 40mg qam held 2/2 renal dysfunction -Continue coreg 12.5 bid #Acute UTI: Patient started on Rocephin 07/04,klebsiella UTI, completed 7 days of CTX #LLE Cellulitis #Chronic lymphedema - discontinued daptomycin given nausea/no clear signs of infection/improvement of area. chronic changes appreciated, received 7 days ctx and 5 days dapto. WIll monitor and WCN following Other chronic medical conditions: Iron deficiency anemia: Baseline hemoglobin around 10, stable, continue home iron supplementation Insulin-dependent T2DM: Complicated with nephropathy and neuropathy. A1c of 10.1% on 04/28/2023. Sliding scale insulin while in hospital. Was taken off of Ozempic about 1 month ago as it was assumed that this was causing nausea for the patient. registered radiation therapist consult for uncontrolled diabetes. Diabetic neuropathy: hold home gabapentin Morbid obesity: Encourage diet/lifestyle modification with exercise DVT prophylaxis: Heparin subcu Full code Disposition: PT/OT, CM to assist with DC plan (odalis until 07/31) Admission and Anticipated Discharge Date Admission Date: July 04, 2023 Subjective Reports feeling somewhat better today Discussed kidney function as limiting factor for krishna removal Patient reports stool is becoming more formed Review of Systems Review of Systems: All systems reviewed & are unremarkable except as noted in Subjective Physical Exam Constitutional: WD/WN, vitals as above Respiratory: normal respiratory effort, lungs clear to auscultation Cardiovascular: RRR, no murmur, no edema Gastrointestinal (Abdomen): normal bowel sounds, soft, nontender, no hepatosplenomegaly Results & Data Results & Data Vital Signs (Past 12 Hours) Vital Signs Temp Pulse Pulse Resp BP Pulse Ox O2 Del Method 07/15/23 15:26 36.9 C 102 H 18 148/82 H 92 Room Air 07/15/23 11:25 36.6 C 96 H 18 152/71 H 95 Nasal Cannula 07/15/23 08:36 Room Air 07/15/23 08:00 65 07/15/23 07:22 36.6 C 74 18 109/72 O2 Flow Rate 07/15/23 15:26 07/15/23 11:25 2 07/15/23 08:36 07/15/23 08:00 07/15/23 07:22 Laboratory Results Short CBC 07/15/23 Range/Units 05:47 WBC 5.39 (4.8-10.8) K/ul Hgb 9.7 L (12.0-16.0) g/dl Hct 32.1 L (37.0-47.0) % Plt Count 148 (130-400) K/uL BMP 07/15/23 05:47 Sodium 142 Potassium 3.4 L Chloride 97 L Carbon Dioxide 41 H* BUN 30 H Creatinine 2.25 H D Glucose 90 Calcium 8.3 L Medications Administered Home Medications Medication Instructions Recorded Confirmed Last Taken aspirin 81 mg tablet,delayed 81 mg PO QAM 03/14/22 07/04/23 04/27/23 release ferrous sulfate 325 mg (65 mg 325 mg PO DAILY 03/14/22 07/04/23 04/27/23 iron) tablet furosemide 40 mg tablet (Lasix) 40 mg PO QAM 05/17/22 07/04/23 07/03/23 insulin detemir U-100 100 unit/mL 27 unit subcut BID 05/17/22 07/04/23 07/03/23 subcutaneous solution (Levemir U-100 Insulin) insulin lispro 100 unit/mL 10 unit subcut AC 05/17/22 07/04/23 07/03/23 subcutaneous solution acetaminophen 500 mg tablet 1,000 mg PO Q6H PRN Pain 03/13/23 07/04/23 06/30/23 (Tylenol Extra Strength) cyanocobalamin (vitamin B-12) 1,000 mcg PO DAILY 03/13/23 07/04/23 04/27/23 1,000 mcg tablet (Vitamin B-12) metoprolol succinate 25 mg 25 mg PO QAM 03/13/23 07/04/23 07/03/23 tablet,extended release 24 hr gabapentin 600 mg tablet 600 mg PO BID #60 tabs 05/08/23 07/04/23 07/03/23 fluoxetine 20 mg capsule (Prozac) 20 mg PO DAILY 07/04/23 07/04/23 07/04/23 hydralazine 50 mg tablet 50 mg PO QAM 07/04/23 07/04/23 07/03/23 melatonin 3 mg tablet 3 mg PO HS 07/04/23 07/04/23 07/03/23 Active Medications Generic Name Dose Route Start Last Admin Trade Name Freq PRN Reason Stop Dose Admin Acetaminophen 650 mg 07/04/23 15:34 07/15/23 09:48 Acetaminophen 325 Mg Tab PO 08/03/23 15:33 650 mg Q4H PRN Administration Moderate Pain (Scale 4, 5, 6) Aspirin 81 mg 07/04/23 16:00 07/15/23 09:44 Aspirin 81 Mg Ectab PO 08/03/23 15:59 81 mg QAM MOHAMUD Administration Carvedilol 12.5 mg 07/14/23 17:00 07/15/23 09:46 Carvedilol 12.5 Mg Tab PO 08/13/23 16:59 12.5 mg BIDM MOHAMUD Administration Cyanocobalamin 1,000 mcg 07/05/23 09:00 07/15/23 09:47 Cyanocobalamin (B-12) 500 Mcg Tablet PO 08/04/23 08:59 1,000 mcg DAILY MOHAMUD Administration Dicyclomine HCl 20 mg 07/13/23 09:00 07/15/23 12:47 Dicyclomine Hcl 10 Mg Cap PO 08/12/23 08:59 20 mg QID MOHAMUD Administration Ferrous Sulfate 325 mg 07/05/23 09:00 07/09/23 08:24 Ferrous Sulfate 325 Mg Tab PO 08/04/23 08:59 325 mg DAILY MOHAMUD Administration Fluoxetine HCl 20 mg 07/04/23 16:00 07/15/23 09:46 Fluoxetine Hcl 20 Mg Cap PO 08/03/23 15:59 20 mg DAILY OMHAMUD Administration Furosemide 40 mg 07/13/23 17:00 07/15/23 09:46 Furosemide 40 Mg Tab PO 08/12/23 16:59 40 mg BID17 MOHAMUD Administration Gabapentin 600 mg 07/04/23 21:00 07/07/23 09:01 Gabapentin 600 Mg Tab PO 08/03/23 20:59 600 mg BID MOHAMUD Administration Heparin Sodium (Porcine) 5,000 units 07/07/23 14:00 07/15/23 12:48 Heparin Sod 5,000 Unit/0.5 Ml Vial SQ 08/06/23 13:59 5,000 units Q8 MOHAMUD Administration Hydralazine HCl 50 mg 07/15/23 09:00 07/15/23 12:48 Hydralazine Tab 50 Mg Tab PO 08/14/23 08:59 50 mg TID MOHAMUD Administration Pantoprazole Sodium 40 mg/ 10 mls @ 5 mls/min 07/10/23 21:00 07/15/23 10:02 Syringe IV 08/09/23 20:59 5 mls/min BID MOHAMUD Administration Promethazine HCl 12.5 mg/ 50.5 mls @ 202 mls/hr 07/11/23 00:46 07/12/23 16:38 Sodium Chloride IV 08/10/23 00:45 Infused Q6H PRN Infusion Nausea And Vomiting Insulin Aspart 0 units 07/04/23 15:34 07/15/23 12:46 Insulin Aspart Per Unit Charge SC 08/03/23 15:33 6 units ACHS MOHAMUD Administration Protocol Insulin Glargine 10 units 07/12/23 21:00 07/14/23 21:48 Lantus Per Unit Charge SQ 08/10/23 20:59 10 units HS MOHAMUD Administration Protocol Loperamide HCl 2 mg 07/14/23 08:49 07/15/23 10:02 Loperamide Hcl 2 Mg Cap PO 08/13/23 08:48 2 mg Q6H PRN Administration Diarrhea Magnesium Chloride 64 mg 07/08/23 10:30 07/15/23 09:47 Magnesium Chloride W/Calcium 64mg Delayed Rel Tab PO 08/07/23 10:29 64 mg BID MOHAMUD Administration Melatonin 3 mg 07/04/23 21:00 07/14/23 21:48 Melatonin 3 Mg Tab PO 08/03/23 20:59 3 mg HS MOHAMUD Administration Miscellaneous 15 - 30 gm 07/04/23 15:34 07/07/23 08:21 Carbohydrates For Hypoglycemia PO 08/03/23 15:33 15 gm UD PRN Administration Hypoglycemia Protocol Ondansetron HCl 4 mg 07/12/23 11:00 07/15/23 12:46 Ondansetron Inj 2 Mg/Ml 2 Ml Vial IV 08/11/23 10:59 4 mg Q6 MOHAMUD Administration Spironolactone 12.5 mg 07/07/23 11:30 07/12/23 08:30 Spironolactone 12.5 Mg Tab PO 08/06/23 11:29 12.5 mg DAILY MOHAMUD Administration (2) Hypertension Hypertension type: unspecified Qualified Code(s): I10 - Essential (primary) hypertension (7) Type 2 diabetes mellitus, with long-term current use of insulin Diabetes mellitus complication status: without complication Qualified Code(s): E11.9 - Type 2 diabetes mellitus without complications; Z79.4 - MCFP (current) use of insulin
[2023-07-15 17:51] LABS: Appearance Urine Turbid (Clear); Blood Urine Negative (Negative); Color Urine Dark Yellow; Epithelial Cell Urine Auto >30 /lpf (0-5); Glucose Urine UA Negative (Negative); Ketones Urine Trace (Negative); Leukocyte Esterase Urine 3+ (Negative); Nitrite Urine Negative (Negative); Protein Urine 4+ (Negative); Specific Gravity Urine 1.024 (1.000-1.030); Urobilinogen Urine Negative (Negative); WBC Urine Automated >30 /hpf (0-5)
[2023-07-15 17:52] LABS: Bilirubin Urine 1+ (Negative)
[2023-07-15 18:12] LABS: Bacteria Urine Automated 1+ (Negative); RBC Urine Automated 0-4 /hpf (0-4)
[2023-07-15 18:45] LABS: Creatinine Urine Random 218.4 mg/dl; Total Protein Urine Random 661.9 mg/dl (0-11.9)
[2023-07-15] MEDS ORDERED: POTASSIUM CHLORIDE 10 MEQ TABCR PO SCH (21:00)
[2023-07-15] MEDS: LANTUS PER UNIT CHARGE SQ SCH (21:34)
[2023-07-15] MEDS: POTASSIUM CHLORIDE CRTAB 20 MEQ TABCR PO SCH (21:35)
[2023-07-15] MEDS: MELATONIN 3 MG TAB PO SCH (21:35)
[2023-07-16] MEDS: ONDANSETRON INJ 2 MG/ML 2 ML VIAL IV SCH ×4 (03:21→18:03)
[2023-07-16] MEDS: HEPARIN SOD 5,000 UNIT/0.5 ML VIAL SQ SCH ×3 (05:55→20:52)
[2023-07-16 06:40] LABS: Hematocrit (blood only) 31.8 % (37.0-47.0); Hemoglobin 9.9 g/dl (12.0-16.0); Mean Corpuscular Hemoglobin 27.6 pg (25.0-34.0); Mean Corpuscular Hgb Conc 31.1 g/dL (32.0-36.0); Mean Corpuscular Volume 88.6 fL (80.0-100.0); Mean Platelet Volume 12.4 fL (9.4-12.4); Platelet Count 145 K/uL (130-400); RDW Coefficient of Variation 15.2 % (11.5-14.5); RDW Standard Deviation 48.5 fL (36.4-46.3); Red Blood Count 3.59 M/uL (4.20-5.40); White Blood Count 5.36 K/ul (4.8-10.8)
--- NOTE | 2023-07-16 06:57 | Ultrasound Report ---
US duplex renal artery CLINICAL HISTORY: renal artery stenosis? COMPARISON STUDY: CT of the abdomen and pelvis July 10, 2023. TECHNIQUE: Color and duplex Doppler abdominal aorta and renal arteries was performed. FINDINGS: The right kidney measures 13.1 cm in maximal dimension and the left measures 13.5 cm. There is no hydronephrosis. No renal calculi are identified by sonography. The proximal right renal artery was partially obscured due to suboptimal penetration. No elevated velocities within the right renal artery were noted. Left renal artery was also partially obscured. No elevated velocities were identif ied within visualized portions. Bilateral renal veins were patent. Segmental waveforms within the kid neys were grossly normal although left renal segmental vessels suboptimally assessed. Peak systolic v elocity within the abdominal aorta was 149 cm/s. IMPRESSION: Technically nondiagnostic evaluation for renal artery stenosis given suboptimal penetrat ion. No elevated velocities within visualized portions of the renal arteries although renal arteries partially obscured. ACT 112: Negative or not required by law. Electronically signed by: Roberto Knox M.D. 07/16/2023 6:55 AM
[2023-07-16 07:06] LABS: BUN Creatinine Ratio 13.7 (10-20); Calcium 8.3 mg/dl (8.6-10.3); Creatinine Clr Calc Pharmacy 39.5 ml/min; Est GFR (African American) 23.9 ml/min; Est GFR (Non-African American) 20.6 ml/min; Magnesium 1.7 mg/dl (1.7-2.4); Phosphorus 3.6 mg/dl (2.5-4.9); Potassium 3.5 mmol/L (3.5-5.1)
[2023-07-16] MEDS: FUROSEMIDE 40 MG TAB PO SCH (09:33)
[2023-07-16] MEDS: FLUoxetine HCL 20 MG CAP PO SCH (09:33)
[2023-07-16] MEDS: carvediloL 12.5 MG TAB PO SCH ×2 (09:33→18:03)
[2023-07-16] MEDS: ASPIRIN 81 MG ECTAB PO SCH (09:33)
[2023-07-16] MEDS: DICYCLOMINE HCL 10 MG CAP PO SCH ×4 (09:34→20:53)
[2023-07-16] MEDS: POTASSIUM CHLORIDE CRTAB 20 MEQ TABCR PO SCH ×4 (09:34→21:47)
[2023-07-16] MEDS: hydrALAZINE TAB 50 MG TAB PO SCH ×3 (09:34→20:53)
[2023-07-16] MEDS: CYANOCOBALAMIN (B-12) 500 MCG TABLET PO SCH (09:34)
[2023-07-16] MEDS: PANTOprazole 40 MG in SYRINGE 0 ML IV SCH ×2 (09:35→20:52)
[2023-07-16] MEDS: INSULIN ASPART PER UNIT CHARGE SC SCH ×4 (09:35→20:53)
--- NOTE | 2023-07-16 11:58 | Nephrology Progress Note ---
Date of Service July 16, 2023 Assessment & Plan (1) Acute on chronic renal insufficiency: Plan: recurrent/further worsening and now oliguric stage 1 DAHLIA on CKD 3 > baseline creatinine 1.4-1.5 most recently. creatinine had improved to normal w/ aggressive diuresis; now rising again, in correlation w/ scaling back on diuretics. prerenal versus ATN in cardiorenal picture; cannot rule out glomerular process w/ volume overload. also w/ rapidly progressive ckd as below; now stage 3 (prior to this admission) after no CKD as recently as August 2022. UOP had beendrifting down (1175 > 600 > 375 ML > 1000> 200 mL so far today); bedweights starting to trend back up. her lasix gtt was started 07/06 and lowered from 20 mg hourly > 10 mg on 07/08, then stopped on 07/10; a few days later, uptrend in creatinine recurs, though in this timeframe also with several GI issues > limited po intake, N, diarrhea. also on dapto 07/06-07/12, stopped in part d/t N. -daily bmp -changed lasix to 140 mg IV bolus then gtt at 10 mg/hr -holding slow mag given diarrhea and monitor mag daily -increased K dose to 20 mg qid -repeat UACM w/ ongoing inflammation, 3 gm proteinuria -cont strict I/O -daily standing wt reordered Care coordinated w/ Dr Roland. I spent a total of 60 minutes coordinating, documenting, and providing care for this patient excluding time spent in the performance of separately billed services. This included personally reviewing all current laboratories and imaging studies, medication reconciliation, outpatient chart review, and discussion with other physicians, with nursing, and as applicable with the patient and family. (2) CKD (chronic kidney disease) stage 3, GFR 30-59 ml/min: Plan: She has rapidly progressive CKD >> prior to March 2023 creatinine was 0.8 (last lab check was February 2023); then in March during an admission she had DAHLIA w/ labile renal function ever since, 1.4-1.5 range. 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 albumin has dropped from 3.2 (a baseline) at admission to 2.3. unremarkable renal/adrenal imaging 07/10. -ordering glomerular dz w/u w/ AM labs tomorrow > ESR, antihistone Ab, complement, ANCA, anti dsDNA, anti GBM, hepatitis panel, serum free light chains and immunofixation; cannot r/o need for renal bx -attempted to order anti GBM but order not found> written as [facility] generic; would also need PLA2R -24 hr urine deferred for now but may need to check prot electrophor/IF urine on 24 hr study; again need to confer w/ lab on daylight -Will need neph f/u after d/c (3) CHF (congestive heart failure): Plan: -cont lasix 40 mg po bid 17 -1.5L FR -daily bmp -hydralazine at 50 mg tid -coreg being uptitrated to 12.5 bid -note that high doses of gabapentin can also worsen edema > on hold currently Night Bipap > both aldactone and lisinopril now on hold; just started po lasix 07/13 Creat rising last 5 days. Reviewed cards note and Changed to oral lasix 40 bid 07/13 PM dose Bicarb is Somewhat high but ABG and VBG shows Co2 retention and Compensated picture. No need to add diamox. She really needs night time Bipap if possible. Admission and Anticipated Discharge Date Admission Date: July 04, 2023 Subjective renal function continues to worsen off of IV diuretics; ambulated today w/ walker/asst; felt great. no sob; remains on 02nc; no n/v Review of Systems 2 Review of Systems: All systems reviewed & are unremarkable except as noted in Subjective Physical Exam 2 Constitutional: well developed, well nourished, + morbidly obese, + physical limitations (sitting up in chair on 02NC) and cooperative; no acute distress Eyes: EOM intact bilaterally ENMT: Ears: no external ear abnormality Nose: no external nose abnormality Mouth: + dry oral mucous membranes Neck: no nuchal rigidity Respiratory: normal respiratory effort Auscultation: + diminished lung sounds Cardiovascular: Rate/Rhythm: regular rate (HS distant) and regular rhythm E xtremities: + edema (3+ BLE distally and 1-2+ proximally) Gastrointestinal (Abdomen): Inspection/Auscultation: normal bowel sounds P ercussion/Palpation: abdomen soft; abdomen nontender Musculoskeletal: Extremities: + abnormal strength Skin: no rashes, warm and dry Psychiatric: Orientation: alert and oriented x 3 Results & Data Vital Signs (Past 12 Hours) Vital Signs Temp Pulse Pulse Resp BP Pulse Ox O2 Del Method 07/16/23 08:00 Nasal Cannula 07/16/23 07:51 37.0 C 69 16 168/64 H 98 Nasal Cannula 07/16/23 07:13 67 07/16/23 04:57 36.5 C 65 18 157/75 H 97 Nasal Cannula O2 Flow Rate 07/16/23 08:00 07/16/23 07:51 2 07/16/23 07:13 07/16/23 04:57 2 Laboratory Results 07/16/23 05:58 07/16/23 05:58 (2) CKD (chronic kidney disease) stage 3, GFR 30-59 ml/min Chronic kidney disease stage 3 subtype: unspecified whether 3a or 3b Qualified Code(s): N18.30 - Chronic kidney disease, stage 3 unspecified
[2023-07-16] MEDS ORDERED: FUROSEMIDE 160 MG in SODIUM CHLORIDE 0.9% 50 ML IV ONE (12:15)
[2023-07-16] MEDS: FUROSEMIDE 100 MG in 0.9 % SODIUM CHLORIDE 90 ML IV SCH ×2 (12:51→22:27)
--- NOTE | 2023-07-16 14:28 | Cardiology Progress Note ---
Date of Service July 16, 2023 Assessment & Plan (1) Acute on chronic renal insufficiency: (2) Right heart failure: (3) Uncontrolled hypertension: Plan Hold Aldactone and lisinopril. Monitor daily weight, fluid balance, and GFR. Volume status somewhat difficult to cpo given body habitus. Edema unchanged. Continue furosemide. Appreciate nephrology input. Heart rate remains stable with addition of carvedilol. Carvedilol titrated from 3.125 mg to 12.5 mg over the past 3 days. Hydralazine increased to 50 mg 3 times daily. Blood pressure remains labile. Metoprolol initially placed on hold during hospitalization due to bradycardia. Continue to monitor telemetry. I spent a total of 35 minutes on the date of service in preparation, delivery, and documentation of the care provided to this patient, excluding any time spent in the performance of separately billed services. Admission and Anticipated Discharge Date Admission Date: July 04, 2023 Subjective Patient seen examined the bedside. Nausea and abdominal discomfort improved today. P.o. intake has increased. Edema unchanged. Furosemide changed to p.o. 07/13. Creatinine trending upward over the past 5 days. Nephrology on board. Review of Systems Review of Systems: All systems reviewed & are unremarkable except as noted in Subjective Physical Exam Constitutional: well nourished and + morbidly obese Respiratory: normal respiratory effort Auscultation: + diminished lung sounds (Bases bilateral); no wheezes Cardiovascular: Rate/Rhythm: regular rate and regular rhythm Heart Sounds: normal S1 and normal S2; no murmur Vessels: no JVD Extremities: + edema (2-3+ bilateral lower extremity edema with stasis changes) Gastrointestinal (Abdomen): Inspection/Auscultation: + abdomen distended Percussion/Palpation: abdomen soft; abdomen nontender, no guarding and abdomen not rigid Neurologic: CN's II-XI intact bilaterally; no focal motor deficits Results & Data Vital Signs (Past 12 Hours) Vital Signs Temp Pulse Pulse Resp BP Pulse Ox O2 Del Method 07/16/23 08:00 Nasal Cannula 07/16/23 07:51 37.0 C 69 16 168/64 H 98 Nasal Cannula 07/16/23 07:13 67 07/16/23 04:57 36.5 C 65 18 157/75 H 97 Nasal Cannula O2 Flow Rate 07/16/23 08:00 07/16/23 07:51 2 07/16/23 07:13 07/16/23 04:57 2 Laboratory Results CBC 07/16/23 Range/Units 05:58 WBC 5.36 (4.8-10.8) K/ul RBC 3.59 L (4.20-5.40) M/uL Hgb 9.9 L (12.0-16.0) g/dl Hct 31.8 L (37.0-47.0) % Plt Count 145 (130-400) K/uL Comprehensive Metabolic Panel 07/16/23 Range/Units 05:58 Sodium 140 (136-145) mmol/L Potassium 3.5 (3.5-5.1) mmol/L Chloride 95 L (98-107) mmol/L Carbon Dioxide 41 H* (21-32) mmol/L BUN 35 H (6-23) mg/dl Creatinine 2.55 H D (0.6-1.2) mg/dl Glucose 178 H (70-99(Fasting)) mg/dl Calcium 8.3 L (8.6-10.3) mg/dl Intake and Output 07/15/23 07/16/23 07/16/23 22:59 06:59 14:59 Intake Total 240 / 1720 240 / 240 Output Total 876 / 1029 101 / 1029 200 / 200 Balance -636 / 691 -101 / 691 40 / 40 Intake: Oral 240 / 720 240 / 240 Output: Stool 1 / 1 Urine Amount (Catheter) 875 / 1025 100 / 1025 200 / 200 Heaton/Indwelling 875 / 1025 100 / 1025 200 / 200 # Bowel Movements 1 / 3 (2) Right heart failure Heart failure chronicity: acute on chronic Qualified Code(s): I50.813 - Acute on chronic right heart failure
--- NOTE | 2023-07-16 14:57 | Hospitalist Progress Note ---
Date of Service July 16, 2023 Assessment & Plan (1) CHF (congestive heart failure): (2) Hypertension: (3) Diabetic ulcer of foot associated with type 2 diabetes mellitus, with bone involvement without evidence of necrosis: (4) Lymphedema of both lower extremities: (5) Anemia: (6) UTI (urinary tract infection): (7) Type 2 diabetes mellitus, with long-term current use of insulin: (8) Diabetic peripheral neuropathy associated with type 2 diabetes mellitus: (9) Obesity: Plan: per admitting service notes with addendum: Ms. Rand is a 53-year-old male with PMH of insulin-dependent T2DM, diabetic neuropathy, diabetic nephropathy with CKD stage III, HTN, HLD, HFpEF, morbid obesity, necrotizing fasciitis, bilateral lower extremity lymphedema, TRACI, left chronic heel ulcer presented to the ED for generalized swelling/increased edema of BLE and not feeling well, and admitted for acute heart failure with preserved EF. Patient responded robustly to IV diuersis with up to 8L UOP in a day; however course complicated by nausea, vomiting, and diarrhea. There was no clear eitology of these gastric concerns, but potentially related to daptomycin which was initiated for a presumptive cellulitis of RLE. Discontinuation of daptomycin, as well as less strict glucose control, was noted by improved GI symptoms. During this time, lasix was held intermittently and dosing readjusted. As well as additional of ACEi for blood pressure control. Since 07/10 there has been a precipitous increase in Cr and decrease in urine output. Heaton remains in place now for further IOs of acute on chronic kidney injury. #Acute kidney injury over CKD stage III *improving #Metabolic alkalosis, compensation for YVROSE/OHS - Admitting creatinine of 1.81, baseline creatinine around 1.4. -Continue diuresis as tolerated -No further IV mag, continue mag BID -Encourage BiPAP when able -Hold lisinopri -Urine lytes ordered, UA -Strict I/OS -Nephrology on consult -Renal US duplex iso increase Cr s/p ACEi :Technically nondiagnostic evaluation for renal artery stenosis given suboptimal penetration. No elevated velocities within visualized portions of the renal arteries although renal arteries partia lly obscured. 07/16 Creatinine increased to 2.5 Furosemide drip ordered Potassium 4 times daily ordered #Nausea *improved today #Relative hypoglycemia #Multiple BM #History of IBS -history of impaction, generalized abdominal pain -Will trial reglan for nausea/promotility iso diabetes -KUB with stool burden initially with concern for impending impaction given recent history of such, 1x bisacodyl suppository and bowel regimen; now course with diarrhea -CTM with liquid diet--trial of advancing diet today -c diff sent negative -?relative hypoglycemia contributing, POC in low 100s--quite low given A1C 10% --reduce glargine--doing better with juice intake, but still feels poorly -Trial dicyclomine, hold bowel regimen, reassess -Discontinued Daptomycin 07/12--wound appears chronic and no changes overall, drainage/crusting c/w chronic lymphedema, however, was not hospitalist who initiated therapy therefore treatment efficacy difficult to assess, but no notable improvement since following--will monitor closely (received 7 days CTX and x5 days dapto, likely sufficient) -Antiemitics prn -Additional immodium prn 07/16 Resolved #Hypertension -Antihypertensives held thus far given aggressive diuresis -Discontinue ACEi -Relatively hypotensive decreased 50 Hydalazine TID (hold for SBP <120), discontinued imdur 20mg -Continue coreg 12.5 mg BID 07/16 Continue Coreg 12.5 mg p.o. twice daily, hydralazine 50 mg p.o. 3 times daily Monitor #Acute exacerbation of heart failure with preserved ejection fraction #Acute Right heart failure Upon chart review, patient's weight of 146 kg on 05/08/2023, presenting weight at 176.6 kg on 07/04/2023. Admitting CXR with pulmonary vascular congestion, at admission : 2-3+ pitting edema BLE along with her chronic lymphedema and UE pitting edema noted. Patient's home Lasix was increased from 20mg to 40 mg the day prior to arrival at the [facility]. Troponin flat trended in 70s. Patient with no chest pain. Admitting EKG with no acute ST or T changes. Echo with EF of 55 to 60%, grade 1 diastolic dysfunction, no LV segmental wall motion abnormalities, flattened septum consistent with RV pressure/volume overload. Metoprolol on hold due to bradycardia. Hydralazine dc'd / gabapentin held as it can worsen edema however, blood pressure difficult to manage at this time therefore hydralazine resumed -Continue Daily weights. Strict I's and O's, monitor and replete electrolytes as appropriate. -Encourage BiPAP qhs and with naps, encourage compliance -PO lasix to q12 -Cardiology following, appreciate recommendations -Held spironolactone 12.5mg daily and lisinopril 40mg qam held 2/2 renal dysfunction -Continue coreg 12.5 bid 07/16 Still has lower extremity edema Currently on Lasix drip #Acute UTI: Patient started on Rocephin 07/04,klebsiella UTI, completed 7 days of CTX #LLE Cellulitis #Chronic lymphedema - discontinued daptomycin given nausea/no clear signs of infection/improvement of area. chronic changes appreciated, received 7 days ctx and 5 days dapto. WIll monitor and WCN following Other chronic medical conditions: Iron deficiency anemia: Baseline hemoglobin around 10, stable, continue home iron supplementation Insulin-dependent T2DM: Complicated with nephropathy and neuropathy. A1c of 10.1% on 04/28/2023. Sliding scale insulin while in hospital. Was taken off of Ozempic about 1 month ago as it was assumed that this was causing nausea for the patient. tare weigher consult for uncontrolled diabetes. Diabetic neuropathy: hold home gabapentin Morbid obesity: Encourage diet/lifestyle modification with exercise DVT prophylaxis: Heparin subcu Full code Disposition: PT/OT, CM to assist with DC plan (odalis until 07/31) Admission and Anticipated Discharge Date Admission Date: July 04, 2023 Subjective Follow-up for CHF, etc. Seen sitting up in bedside chair, comfortable, on 2 L of oxygen Good spirits States she feels improved today compared to the previous days No shortness of breath, chest pain, palpitations, dizziness No fevers or chills, leg pain No other new symptoms Review of Systems Review of Systems: all noted and negative except for above Physical Exam Physical Exam: General- oriented x 3, not in distress, speaks in sentences with no effort or accessory muscle use Eyes- anicteric Neck- no JVD Lungs- clear breath sounds bilaterally, no crackles or wheezes Heart- normal rate, regular rhythm; no murmurs Abdomen- normal bowel sounds, nondistended, soft, no tenderness Extremities-grade 2 bilateral lower extremity edema, mild erythema, no warmth, no tenderness Neuro- alert, oriented x 3; no gross focal neurologic deficits Skin- warm & dry Results & Data Results & Data Vital Signs (Past 12 Hours) Vital Signs Temp Pulse Pulse Resp BP Pulse Ox O2 Del Method 07/16/23 08:00 Nasal Cannula 07/16/23 07:51 37.0 C 69 16 168/64 H 98 Nasal Cannula 07/16/23 07:13 67 07/16/23 04:57 36.5 C 65 18 157/75 H 97 Nasal Cannula O2 Flow Rate 07/16/23 08:00 07/16/23 07:51 2 07/16/23 07:13 07/16/23 04:57 2 all noted and reviewed including below (2) Hypertension Hypertension type: unspecified Qualified Code(s): I10 - Essential (primary) hypertension (7) Type 2 diabetes mellitus, with long-term current use of insulin Diabetes mellitus complication status: without complication Qualified Code(s): E11.9 - Type 2 diabetes mellitus without complications; 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
[2023-07-16] MEDS: MELATONIN 3 MG TAB PO SCH (20:52)
[2023-07-16] MEDS: LANTUS PER UNIT CHARGE SQ SCH (20:53)
[2023-07-17] MEDS: ONDANSETRON INJ 2 MG/ML 2 ML VIAL IV SCH ×2 (00:39→07:54)
[2023-07-17] MEDS ORDERED: DICYCLOMINE HCL 10 MG CAP PO PRN (07:44)
[2023-07-17] MEDS: HEPARIN SOD 5,000 UNIT/0.5 ML VIAL SQ SCH ×3 (07:54→20:28)
[2023-07-17 09:02] LABS: BUN Creatinine Ratio 14.6 (10-20); Calcium 8.5 mg/dl (8.6-10.3); Creatinine Clr Calc Pharmacy 38.2 ml/min; Est GFR (African American) 23.2 ml/min; Potassium 4.6 mmol/L (3.5-5.1)
[2023-07-17] MEDS: POTASSIUM CHLORIDE CRTAB 20 MEQ TABCR PO SCH ×2 (09:17→20:28)
[2023-07-17] MEDS: carvediloL 12.5 MG TAB PO SCH ×2 (09:18→17:58)
[2023-07-17] MEDS: hydrALAZINE TAB 50 MG TAB PO SCH ×3 (09:18→20:30)
[2023-07-17] MEDS: ASPIRIN 81 MG ECTAB PO SCH (09:18)
[2023-07-17] MEDS: FLUoxetine HCL 20 MG CAP PO SCH (09:18)
[2023-07-17] MEDS: CYANOCOBALAMIN (B-12) 500 MCG TABLET PO SCH (09:18)
[2023-07-17] MEDS: PANTOprazole 40 MG in SYRINGE 0 ML IV SCH ×2 (09:19→20:34)
[2023-07-17] MEDS: FUROSEMIDE 100 MG in 0.9 % SODIUM CHLORIDE 90 ML IV SCH ×2 (09:19→20:28)
[2023-07-17] MEDS: INSULIN ASPART PER UNIT CHARGE SC SCH ×4 (09:20→20:29)
[2023-07-17 09:32] LABS: Urea Nitrogen, Random Urine 329 mg/dL
--- NOTE | 2023-07-17 10:11 | Nephrology Progress Note ---
Date of Service July 17, 2023 Assessment & Plan (1) Acute on chronic renal insufficiency: Plan: Today plateaued creatinine after recurrent/further worsening and recently oliguric stage 1 DAHLIA on CKD 3 > baseline creatinine 1.4-1.5 most recently. About 1 L urine output past 2 days each. Creatinine had improved to normal w/ aggressive diuresis; then radha again in correlation w/ scaling back on diuretics. With resuming diuretics creatinine appears to be plateau'ing. prerenal versus ATN in cardiorenal picture; cannot rule out glomerular process w/ volume overload. also w/ rapidly progressive ckd as below; now stage 3 (prior to this admission) after no CKD as recently as August 2022. UOP had been drifting down (1175 > 600 > 375 ML > 1000> 900 mL so far today); bedweights no longer trending up. her lasix gtt was started 07/06 and lowered from 20 mg hourly > 10 mg on 07/08, then stopped on 07/10; a few days later, uptrend in creatinine recurs, though in this timeframe also with several GI issues > limited po intake, N, diarrhea. also on dapto 07/06-07/12, stopped in part d/t N. Repeat urinalysis July 15 with ongoing inflammation and 3 g proteinuria Lasix drip resumed but at lower 10 mg hourly dose on July 16. -daily bmp -holding slow mag given diarrhea and monitor mag daily -Lowered K dosing back to 20 m equivalents twice daily -cont strict I/O -daily weights reordered and currently plateaued after recent uptrend (2) CKD (chronic kidney disease) stage 3, GFR 30-59 ml/min: Plan: She has rapidly progressive CKD >> prior to March 2023 creatinine was 0.8 (last lab check was February 2023); then in March during an admission she had DAHLIA w/ labile renal function ever since, 1.4-1.5 range. 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 albumin has dropped from 3.2 (a baseline) at admission to 2.3. unremarkable renal/adrenal imaging 07/10. -ordering glomerular dz w/u w/ AM labs tomorrow > ESR, antihistone Ab, complement, ANCA, anti dsDNA, anti GBM, hepatitis panel, serum free light chains and immunofixation; cannot r/o need for renal bx -attempted to order anti GBM but order not found> written as quest generic; would also need PLA2R -24 hr urine deferred for now but may need to check prot electrophor/IF urine on 24 hr study; again need to confer w/ lab on daylight -Will need neph f/u after d/c (3) CHF (congestive heart failure): Plan: -cont lasix 40 mg po bid 17 -1.5L FR -daily bmp -hydralazine at 50 mg tid -coreg being uptitrated to 12.5 bid -note that high doses of gabapentin can also worsen edema > on hold currently Night Bipap > both aldactone and lisinopril now on hold; just started po lasix 07/13 then back to gtt on 07/16 Creat radha x 5 days, then plateau'd x 24 hr.. Reviewed cards note and Changed to oral lasix 40 bid 07/13 PM dose Bicarb is Somewhat high but ABG and VBG shows Co2 retention and Compensated picture. No need to add diamox. She really needs night time Bipap if possible. Admission and Anticipated Discharge Date Admission Date: July 04, 2023 Subjective no interval events; feels improved; wound team following LLE Review of Systems 2 Review of Systems: All systems reviewed & are unremarkable except as noted in Subjective Physical Exam 2 Constitutional: well developed, well nourished, + morbidly obese, + physical limitations (sitting up in chair on 02NC) and cooperative; no acute distress Eyes: EOM intact bilaterally ENMT: Ears: no external ear abnormality Nose: no external nose abnormality Mouth: + dry oral mucous membranes Neck: no nuchal rigidity Respiratory: normal respiratory effort Auscultation: + diminished lung sounds Cardiovascular: Rate/Rhythm: regular rate (HS distant) and regular rhythm E xtremities: + edema (3+ BLE distally and 1-2+ proximally) Gastrointestinal (Abdomen): Inspection/Auscultation: normal bowel sounds P ercussion/Palpation: abdomen soft; abdomen nontender Musculoskeletal: Extremities: + abnormal strength Skin: no rashes, warm and dry Psychiatric: Orientation: alert and oriented x 3 Results & Data Vital Signs (Past 12 Hours) Vital Signs Temp Pulse Pulse Resp BP Pulse Ox O2 Del Method 07/17/23 08:01 60 07/17/23 07:56 36.5 C 66 16 179/72 H 96 Nasal Cannula 07/17/23 02:36 36.5 C 60 16 99/58 L 93 Nasal Cannula 07/17/23 00:10 36.2 C L 58 L 18 121/63 97 Nasal Cannula O2 Flow Rate 07/17/23 08:01 07/17/23 07:56 2 07/17/23 02:36 3 07/17/23 00:10 3 Laboratory Results 07/16/23 05:58 07/17/23 08:25 (2) CKD (chronic kidney disease) stage 3, GFR 30-59 ml/min Chronic kidney disease stage 3 subtype: unspecified whether 3a or 3b Qualified Code(s): N18.30 - Chronic kidney disease, stage 3 unspecified
--- NOTE | 2023-07-17 12:45 | Pharmacy Report ---
Pharmacy Glycemic Short Note 2 - Date of Service July 17, 2023 - Glycemic Short BSG Results (Last 24 hours): 07/16/23 07/16/23 07/17/23 17:32 20:07 08:13 Glucose POC Glucose 170 H 166 H 128 H 07/17/23 07/17/23 08:25 12:29 Glucose 120 H POC Glucose 205 H OUTPATIENT ANTIDIABETIC REGIMEN: * Levemir 27 units SC BID * Humalog 10 units SC AC * HbA1c: 10.1% (04/28/23) ASSESSMENT: 07/17/23 * BSGs yesterday were [phone] mg/dL. Patient received 37 units of insulin (12 units of basal and 25 units of bolus). * Fasting today is 128 mg/dL. Continue 12 units. * Tighten CR since BSGs trend upwards. 07/15: * BSGs remain reasonably well-controlled over past 72 hours * Received 25 units of insulin (10 units of basal and 15 units of prandial/correctional bolus) * Fasting BSG of 110 mg/dL this morning * Do not anticipate any changes to glycemic regimen today 07/13: * Sofiya received 22 units of insulin yesterday, 10 basal + 12 bolus. BSGs were: [phone] mg/dL. * Fasting BSG of 135 mg/dL today is at goal. No change to insulin regimen necessary. * Diet advanced and being tolerated. 07/11: * BSGs yesterday [id number] mg/dL. Patient received 16 units of insulin (10 units of basal and 6 units of bolus). * Today's BSGs are 100-139. * Patient's Lasix increased to 80 mg IV q8 hours. PO intake reduced. * Reduce last to 8 units if BSG < 140 mg/dL. * Continue Novolog as BSGs steady. 07/09: * BSGs yesterday were [phone] mg/dL. Patient received 32 units of insulin (20 units of basal and 12 units of bolus). * Fasting today is 102 mg/dL. * Decrease Lantus to 15 units nightly. * Continue Novolog as BSGs relatively stable. BACKGROUND * 53 year old admitted with DAHLIA and CHF. Pharmacy consulted for glycemic management. Patient's blood sugars low this morning, provider held AM basal insulin. BSGs continue to be low at lunch time, despite held AM basal and only 2 units novolog given at breakfast * Patient received total of 67 units yesterday, of which 54 units were basal. Regimen heavily basal weighted, possibly contributing to lower BSGs today - plan to decrease basal dose by ~50-60% and redose tonight. Removed CR for today for now until BSGs start to recover PLAN FOR INPATIENT GLYCEMIC CONTROL: * Basal insulin * Lantus 12 units SC HS * Bolus insulin * NovoLog per scale ACHS or Q6hrs while NPO * Goal Range: Low 120 mg/dL - High 160 mg/dL * Correction Factor: 25 mg/dL/unit * Nutritional / Prandial insulin per carb ratio of 1 unit per 6 grams CHO consumed
--- NOTE | 2023-07-17 17:32 | Hospitalist Progress Note ---
Date of Service July 17, 2023 Assessment & Plan (1) CHF (congestive heart failure): (2) Hypertension: (3) Diabetic ulcer of foot associated with type 2 diabetes mellitus, with bone involvement without evidence of necrosis: (4) Lymphedema of both lower extremities: (5) Anemia: (6) UTI (urinary tract infection): (7) Type 2 diabetes mellitus, with long-term current use of insulin: (8) Diabetic peripheral neuropathy associated with type 2 diabetes mellitus: (9) Obesity: Plan: per admitting service notes with addendum: Ms. Rand is a 53-year-old male with PMH of insulin-dependent T2DM, diabetic neuropathy, diabetic nephropathy with CKD stage III, HTN, HLD, HFpEF, morbid obesity, necrotizing fasciitis, bilateral lower extremity lymphedema, TRACI, left chronic heel ulcer presented to the ED for generalized swelling/increased edema of BLE and not feeling well, and admitted for acute heart failure with preserved EF. Patient responded robustly to IV diuersis with up to 8L UOP in a day; however course complicated by nausea, vomiting, and diarrhea. There was no clear eitology of these gastric concerns, but potentially related to daptomycin which was initiated for a presumptive cellulitis of RLE. Discontinuation of daptomycin, as well as less strict glucose control, was noted by improved GI symptoms. During this time, lasix was held intermittently and dosing readjusted. As well as additional of ACEi for blood pressure control. Since 07/10 there has been a precipitous increase in Cr and decrease in urine output. Heaton remains in place now for further IOs of acute on chronic kidney injury. #Acute kidney injury over CKD stage III *improving #Metabolic alkalosis, compensation for YVROSE/OHS - Admitting creatinine of 1.81, baseline creatinine around 1.4. -Continue diuresis as tolerated -No further IV mag, continue mag BID -Encourage BiPAP when able -Hold lisinopri -Urine lytes ordered, UA -Strict I/OS -Nephrology on consult -Renal US duplex iso increase Cr s/p ACEi :Technically nondiagnostic evaluation for renal artery stenosis given suboptimal penetration. No elevated velocities within visualized portions of the renal arteries although renal arteries partia lly obscured. 07/17 Creatinine increased to 2.6 Furosemide drip ordered Potassium 4 times daily ordered #Nausea *improved today #Relative hypoglycemia #Multiple BM #History of IBS -history of impaction, generalized abdominal pain -Will trial reglan for nausea/promotility iso diabetes -KUB with stool burden initially with concern for impending impaction given recent history of such, 1x bisacodyl suppository and bowel regimen; now course with diarrhea -CTM with liquid diet--trial of advancing diet today -c diff sent negative -?relative hypoglycemia contributing, POC in low 100s--quite low given A1C 10% --reduce glargine--doing better with juice intake, but still feels poorly -Trial dicyclomine, hold bowel regimen, reassess -Discontinued Daptomycin 07/12--wound appears chronic and no changes overall, drainage/crusting c/w chronic lymphedema, however, was not hospitalist who initiated therapy therefore treatment efficacy difficult to assess, but no notable improvement since following--will monitor closely (received 7 days CTX and x5 days dapto, likely sufficient) -Antiemitics prn -Additional immodium prn 07/17 Resolved #Hypertension -Antihypertensives held thus far given aggressive diuresis -Discontinue ACEi -Relatively hypotensive decreased 50 Hydalazine TID (hold for SBP <120), discontinued imdur 20mg -Continue coreg 12.5 mg BID 07/17 Continue Coreg 12.5 mg p.o. twice daily, hydralazine 50 mg p.o. 3 times daily Monitor #Acute exacerbation of heart failure with preserved ejection fraction #Acute Right heart failure Upon chart review, patient's weight of 146 kg on 05/08/2023, presenting weight at 176.6 kg on 07/04/2023. Admitting CXR with pulmonary vascular congestion, at admission : 2-3+ pitting edema BLE along with her chronic lymphedema and UE pitting edema noted. Patient's home Lasix was increased from 20mg to 40 mg the day prior to arrival at the [facility]. Troponin flat trended in 70s. Patient with no chest pain. Admitting EKG with no acute ST or T changes. Echo with EF of 55 to 60%, grade 1 diastolic dysfunction, no LV segmental wall motion abnormalities, flattened septum consistent with RV pressure/volume overload. Metoprolol on hold due to bradycardia. Hydralazine dc'd / gabapentin held as it can worsen edema however, blood pressure difficult to manage at this time therefore hydralazine resumed -Continue Daily weights. Strict I's and O's, monitor and replete electrolytes as appropriate. -Encourage BiPAP qhs and with naps, encourage compliance -PO lasix to q12 -Cardiology following, appreciate recommendations -Held spironolactone 12.5mg daily and lisinopril 40mg qam held 2/2 renal dysfunction -Continue coreg 12.5 bid 07/17 Still has lower extremity edema no signs of infection at this time Currently on Lasix drip #Acute UTI: Patient started on Rocephin 07/04,klebsiella UTI, completed 7 days of CTX #LLE Cellulitis #Chronic lymphedema - discontinued daptomycin given nausea/no clear signs of infection/improvement of area. chronic changes appreciated, received 7 days ctx and 5 days dapto. - will hold off on further antibiotics at this point, wound care consulted, monitor closely Other chronic medical conditions: Iron deficiency anemia: Baseline hemoglobin around 10, stable, continue home iron supplementation Insulin-dependent T2DM: Complicated with nephropathy and neuropathy. A1c of 10.1% on 04/28/2023. Sliding scale insulin while in hospital. Was taken off of Ozempic about 1 month ago as it was assumed that this was causing nausea for the patient. 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 Diabetic neuropathy: hold home gabapentin Morbid obesity: Encourage diet/lifestyle modification with exercise DVT prophylaxis: Heparin subcu Full code Disposition: PT/OT, CM to assist with DC plan (behold until 07/31) Admission and Anticipated Discharge Date Admission Date: July 04, 2023 Subjective Follow-up for CHF, etc. Seen resting in bedside chair, comfortable, not in distress States she feels that she is improving overall Breathing is okay No leg pain, fevers or chills No other new symptoms Review of Systems Review of Systems: all noted and negative except for above Physical Exam Physical Exam: General- oriented x 3, not in distress, speaks in sentences with no effort or accessory muscle use Eyes- anicteric Neck- no JVD Lungs- clear breath sounds bilaterally, no rales/wheezes Heart- normal rate, regular rhythm; no murmurs Abdomen- normal bowel sounds, nondistended, soft, nontender Extremities-(+) gr 2 lower leg edema, mild erythema, no warmth, no tenderness Neuro- alert, oriented x 3; no gross focal neurologic deficits Skin- warm & dry Results & Data Results & Data Vital Signs (Past 12 Hours) Vital Signs Temp Pulse Pulse Resp BP Pulse Ox O2 Del Method 07/17/23 16:14 36.5 C 61 16 161/75 H 99 Nasal Cannula 07/17/23 11:53 36.9 C 66 16 166/67 H 98 Nasal Cannula 07/17/23 08:01 60 07/17/23 07:56 36.5 C 66 16 179/72 H 96 Nasal Cannula O2 Flow Rate 07/17/23 16:14 2 07/17/23 11:53 2 07/17/23 08:01 07/17/23 07:56 2 all noted and reviewed including below (2) Hypertension Hypertension type: unspecified Qualified Code(s): I10 - Essential (primary) hypertension (7) Type 2 diabetes mellitus, with long-term current use of insulin Diabetes mellitus complication status: without complication Qualified Code(s): E11.9 - Type 2 diabetes mellitus without complications; 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
[2023-07-17] MEDS: ACETAMINOPHEN 325 MG TAB PO PRN (18:01)
[2023-07-17] MEDS: MELATONIN 3 MG TAB PO SCH (20:29)
[2023-07-17] MEDS: LANTUS PER UNIT CHARGE SQ SCH (20:29)
[2023-07-18 05:36] LABS: BUN Creatinine Ratio 16.9 (10-20); Calcium 8.3 mg/dl (8.6-10.3); Creatinine Clr Calc Pharmacy 42.2 ml/min; Est GFR (African American) 26.2 ml/min; Est GFR (Non-African American) 22.6 ml/min; Potassium 4.1 mmol/L (3.5-5.1)
[2023-07-18] MEDS: HEPARIN SOD 5,000 UNIT/0.5 ML VIAL SQ SCH ×3 (05:42→21:47)
[2023-07-18] MEDS: FUROSEMIDE 100 MG in 0.9 % SODIUM CHLORIDE 90 ML IV SCH ×2 (06:07→15:40)
[2023-07-18] MEDS: CYANOCOBALAMIN (B-12) 500 MCG TABLET PO SCH (08:30)
[2023-07-18] MEDS: hydrALAZINE TAB 50 MG TAB PO SCH ×3 (08:30→21:48)
[2023-07-18] MEDS: FLUoxetine HCL 20 MG CAP PO SCH (08:30)
[2023-07-18] MEDS: ASPIRIN 81 MG ECTAB PO SCH (08:31)
[2023-07-18] MEDS: POTASSIUM CHLORIDE CRTAB 20 MEQ TABCR PO SCH ×2 (08:31→21:48)
[2023-07-18] MEDS: carvediloL 12.5 MG TAB PO SCH ×2 (08:32→17:43)
[2023-07-18] MEDS: PANTOprazole 40 MG in SYRINGE 0 ML IV SCH ×2 (08:36→21:56)
[2023-07-18] MEDS: INSULIN ASPART PER UNIT CHARGE SC SCH ×4 (08:42→21:50)
--- NOTE | 2023-07-18 12:50 | Pharmacy Report ---
Pharmacy Glycemic Short Note 2 - Date of Service July 18, 2023 - Glycemic Short BSG Results (Last 24 hours): 07/17/23 07/17/23 07/18/23 17:26 20:14 04:52 Glucose 116 H POC Glucose 135 H 143 H 07/18/23 07/18/23 08:20 12:24 Glucose POC Glucose 112 H 149 H OUTPATIENT ANTIDIABETIC REGIMEN: * Levemir 27 units SC BID * Humalog 10 units SC AC * HbA1c: 10.1% (04/28/23) ASSESSMENT: 07/18/23 * BSGs yesterday were [phone] mg/dL. Patient received 36 units of insulin (12 units of basal and 24 units of bolus). * Fasting today is 112 mg/dL. Continue 12 units. * CR was tightened yesterday with excellent results. Continue. 07/17/23 * BSGs yesterday were [phone] mg/dL. Patient received 37 units of insulin (12 units of basal and 25 units of bolus). * Fasting today is 128 mg/dL. Continue 12 units. * Tighten CR since BSGs trend upwards. 07/15: * BSGs remain reasonably well-controlled over past 72 hours * Received 25 units of insulin (10 units of basal and 15 units of prandial/co rrectional bolus) * Fasting BSG of 110 mg/dL this morning * Do not anticipate any changes to glycemic regimen today 07/13: * Sofiya received 22 units of insulin yesterday, 10 basal + 12 bolus. BSGs wer e: [phone] mg/dL. * Fasting BSG of 135 mg/dL today is at goal. No change to insulin regimen necessary. * Diet advanced and being tolerated. 07/11: * BSGs yesterday [id number] mg/dL. Patient received 16 units of insulin (10 units of basal and 6 units of bolus). * Today's BSGs are 100-139. * Patient's Lasix increased to 80 mg IV q8 hours. PO intake reduced. * Reduce last to 8 units if BSG < 140 mg/dL. * Continue Novolog as BSGs steady. 07/09: * BSGs yesterday were [phone] mg/dL. Patient received 32 units of insulin (20 units of basal and 12 units of bolus). * Fasting today is 102 mg/dL. * Decrease Lantus to 15 units nightly. * Continue Novolog as BSGs relatively stable. BACKGROUND * 53 year old admitted with ADHLIA and CHF. Pharmacy consulted for glycemic manag ement. Patient's blood sugars low this morning, provider held AM basal insulin. BSGs continue to be low at lunch time, despite held AM basal and only 2 units novolog given at breakfast * Patient received total of 67 units yesterday, of which 54 units were basal. Regimen heavily basal weighted, possibly contributing to lower BSGs today - plan to decrease basal dose by ~50-60% and redose tonight. Removed CR for today for now until BSGs start to recover PLAN FOR INPATIENT GLYCEMIC CONTROL: * Basal insulin * Lantus 12 units SC HS * Bolus insulin * NovoLog per scale ACHS or Q6hrs while NPO * Goal Range: Low 110 mg/dL - High 140 mg/dL * Correction Factor: 25 mg/dL/unit * Nutritional / Prandial insulin per carb ratio of 1 unit per 6 grams CHO consumed
--- NOTE | 2023-07-18 13:33 | Hospitalist Progress Note ---
Date of Service July 18, 2023 Assessment & Plan (1) CHF (congestive heart failure): (2) Hypertension: (3) Diabetic ulcer of foot associated with type 2 diabetes mellitus, with bone involvement without evidence of necrosis: (4) Lymphedema of both lower extremities: (5) Anemia: (6) UTI (urinary tract infection): (7) Type 2 diabetes mellitus, with long-term current use of insulin: (8) Diabetic peripheral neuropathy associated with type 2 diabetes mellitus: (9) Obesity: Plan: per admitting service notes with addendum: Ms. Rand is a 53-year-old male with PMH of insulin-dependent T2DM, diabetic neuropathy, diabetic nephropathy with CKD stage III, HTN, HLD, HFpEF, morbid obesity, necrotizing fasciitis, bilateral lower extremity lymphedema, TRACI, left chronic heel ulcer presented to the ED for generalized swelling/increased edema of BLE and not feeling well, and admitted for acute heart failure with preserved EF. Patient responded robustly to IV diuersis with up to 8L UOP in a day; however course complicated by nausea, vomiting, and diarrhea. There was no clear eitology of these gastric concerns, but potentially related to daptomycin which was initiated for a presumptive cellulitis of RLE. Discontinuation of daptomycin, as well as less strict glucose control, was noted by improved GI symptoms. During this time, lasix was held intermittently and dosing readjusted. As well as additional of ACEi for blood pressure control. Since 07/10 there has been a precipitous increase in Cr and decrease in urine output. Heaton remains in place now for further IOs of acute on chronic kidney injury. #Acute kidney injury over CKD stage III *improving #Metabolic alkalosis, compensation for YVROSE/OHS - Admitting creatinine of 1.81, baseline creatinine around 1.4. -Continue diuresis as tolerated -No further IV mag, continue mag BID -Encourage BiPAP when able -Hold lisinopri -Urine lytes ordered, UA -Strict I/OS -Nephrology on consult -Renal US duplex iso increase Cr s/p ACEi :Technically nondiagnostic evaluation for renal artery stenosis given suboptimal penetration. No elevated velocities within visualized portions of the renal arteries although renal arteries partial ly obscured. 07/17 Creatinine increased to 2.6 Furosemide drip ordered Potassium 4 times daily ordered 07/18 Creatinine decreased to 2.3 On Lasix drip Respiratory status stable leg edema improving Potassium supplement #Nausea *improved today #Relative hypoglycemia #Multiple BM #History of IBS -history of impaction, generalized abdominal pain -Will trial reglan for nausea/promotility iso diabetes -KUB with stool burden initially with concern for impending impaction given recent history of such, 1x bisacodyl suppository and bowel regimen; now course w ith diarrhea -CTM with liquid diet--trial of advancing diet today -c diff sent negative -?relative hypoglycemia contributing, POC in low 100s--quite low given A1C 10% --reduce glargine--doing better with juice intake, but still feels poorly -Trial dicyclomine, hold bowel regimen, reassess -Discontinued Daptomycin 07/12--wound appears chronic and no changes overall, drainage/crusting c/w chronic lymphedema, however, was not hospitalist who initiated therapy therefore treatment efficacy difficult to assess, but no notable improvement since following--will monitor closely (received 7 days CTX and x5 days dapto, likely sufficient) -Antiemitics prn -Additional immodium prn 07/17 Resolved #Hypertension -Antihypertensives held thus far given aggressive diuresis -Discontinue ACEi -Relatively hypotensive decreased 50 Hydalazine TID (hold for SBP <120), discontinued imdur 20mg -Continue coreg 12.5 mg BID 07/18 Continue Coreg 12.5 mg p.o. twice daily, hydralazine 50 mg p.o. 3 times daily Seems to be improving Monitor #Acute exacerbation of heart failure with preserved ejection fraction #Acute Right heart failure Upon chart review, patient's weight of 146 kg on 05/08/2023, presenting weight at 176.6 kg on 07/04/2023. Admitting CXR with pulmonary vascular congestion, at admission : 2-3+ pitting edema BLE along with her chronic lymphedema and UE pitting edema noted. Patient's home Lasix was increased from 20mg to 40 mg the day prior to arrival at the SNF. Troponin flat trended in 70s. Patient with no chest pain. Admitting EKG with no acute ST or T changes. Echo with EF of 55 to 60%, grade 1 diastolic dysfunction, no LV segmental wall motion abnormalities, flattened septum consistent with RV pressure/volume overload. Metoprolol on hold due to bradycardia. Hydralazine dc'd / gabapentin held as it can worsen edema however, blood pressure difficult to manage at this time therefore hydralazine resumed -Continue Daily weights. Strict I's and O's, monitor and replete electrolytes as appropriate. -Encourage BiPAP qhs and with naps, encourage compliance -PO lasix to q12 -Cardiology following, appreciate recommendations -Held spironolactone 12.5mg daily and lisinopril 40mg qam held 2/2 renal dysfunction -Continue coreg 12.5 bid 07/18 Still has lower extremity edema, seems to be improving no signs of infection at this time Currently on Lasix drip #Acute UTI: Patient started on Rocephin 07/04,klebsiella UTI, completed 7 days of CTX #LLE Cellulitis #Chronic lymphedema - discontinued daptomycin given nausea/no clear signs of infection/improvement of area. chronic changes appreciated, received 7 days ctx and 5 days dapto. - will hold off on further antibiotics at this point, wound care consulted, monitor closely Other chronic medical conditions: Iron deficiency anemia: Baseline hemoglobin around 10, stable, continue home iron supplementation Insulin-dependent T2DM: Complicated with nephropathy and neuropathy. A1c of 10.1% on 04/28/2023. Sliding scale insulin while in hospital. Was taken off of Ozempic about 1 month ago as it was assumed that this was causing nausea for the patient. 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 Diabetic neuropathy: hold home gabapentin Morbid obesity: Encourage diet/lifestyle modification with exercise DVT prophylaxis: Heparin subcu Full code Disposition: PT/OT, CM to assist with DC plan (odalis until 07/31) Admission and Anticipated Discharge Date Admission Date: July 04, 2023 Subjective Follow-up for CHF, etc. Seen resting in bed, comfortable, in good spirits States she feels fine overall Breathing is good No abdominal pain, nausea, diarrhea No leg pain No fevers or chills No other symptom Review of Systems Review of Systems: all noted and negative except for above Physical Exam Physical Exam: General- oriented x 3, not in distress, speaks in sentences with no effort or accessory muscle use Eyes- anicteric Neck- no JVD Lungs- clear BS BL Heart- normal rate, regular rhythm; no murmurs Abdomen- normal bowel sounds, nondistended, soft, nontender Extremities- grad 1 lower leg edema, very mild erythema, no warmth, no tenderness Neuro- alert, oriented x 3; no gross focal neurologic deficits Skin- warm & dry Results & Data Results & Data Vital Signs (Past 12 Hours) Vital Signs Temp Pulse Pulse Resp BP BP Pulse Ox 07/18/23 12:30 37.0 C 63 16 144/73 H 96 07/18/23 07:52 37.0 C 67 16 190/74 H 170/75 H 98 07/18/23 07:30 61 07/18/23 03:29 36.3 C L 63 16 124/71 97 O2 Del Method O2 Flow Rate 07/18/23 12:30 Nasal Cannula 2 07/18/23 07:52 Nasal Cannula 2 07/18/23 07:30 07/18/23 03:29 Nasal Cannula 3 all noted and reviewed including below (2) Hypertension Hypertension type: unspecified Qualified Code(s): I10 - Essential (primary) hypertension (7) Type 2 diabetes mellitus, with long-term current use of insulin Diabetes mellitus complication status: without complication Qualified Code(s): E11.9 - Type 2 diabetes mellitus without complications; Z79.4 - skilled nursing (current) use of insulin
--- NOTE | 2023-07-18 13:50 | Nephrology Progress Note ---
Date of Service July 18, 2023 Assessment & Plan (1) Acute on chronic renal insufficiency: Plan: Today plateaued creatinine after recurrent/further worsening and recently oliguric stage 1 DAHLIA on CKD 3 > baseline creatinine 1.4-1.5 most recently. About 1 L urine output past 2 days each. Creatinine had improved to normal w/ aggressive diuresis; then radha again in correlation w/ scaling back on diuretics. With resuming diuretics creatinine appears to be plateau'ing. prerenal versus ATN in cardiorenal picture; cannot rule out glomerular process w/ volume overload. also w/ rapidly progressive ckd as below; now stage 3 (prior to this admission) after no CKD as recently as August 2022. UOP had been drifting down (1175 > 600 > 375 ML > 1000> 900 mL so far today); bedweights no longer trending up. her lasix gtt was started 07/06 and lowered from 20 mg hourly > 10 mg on 07/08, then stopped on 07/10; a few days later, uptrend in creatinine recurs, though in this timeframe also with several GI issues > limited po intake, N, diarrhea. also on dapto 07/06-07/12, stopped in part d/t N. Repeat urinalysis July 15 with ongoing inflammation and 3 g proteinuria Lasix drip resumed but at lower 10 mg hourly dose on July 16. -daily bmp -holding slow mag given diarrhea and monitor mag daily -Lowered K dosing back to 20 m equivalents twice daily -cont strict I/O -daily weights reordered and currently plateaued after recent uptrend (2) CKD (chronic kidney disease) stage 3, GFR 30-59 ml/min: Plan: She has rapidly progressive CKD >> prior to March 2023 creatinine was 0.8 (last lab check was February 2023); then in March during an admission she had DAHLIA w/ labile renal function ever since, 1.4-1.5 range. 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 albumin has dropped from 3.2 (a baseline) at admission to 2.3. unremarkable renal/adrenal imaging 07/10. -ordering glomerular dz w/u w/ AM labs tomorrow > ESR, antihistone Ab, complement, ANCA, anti dsDNA, anti GBM, hepatitis panel, serum free light chains and immunofixation; cannot r/o need for renal bx; anti GBM Ab and PLA2R both ordered at later date and verified w/ lab -24 hr urine prot electrophor/IF order placed today -Will need neph f/u after d/c (3) CHF (congestive heart failure): Plan: -cont lasix gtt -1.5L FR -daily bmp -hydralazine at 50 mg tid -coreg being uptitrated to 12.5 bid -note that high doses of gabapentin can also worsen edema > on hold currently Night Bipap > both aldactone and lisinopril now on hold; just started po lasix 07/13 then back to gtt on 07/16 Creat radha x 5 days, then plateau'd x 48 hr. Reviewed cards note and Changed to oral lasix 40 bid 07/13 PM dose Bicarb is Somewhat high but ABG and VBG shows Co2 retention and Compensated picture. No need to add diamox. She really needs night time Bipap if possible. Admission and Anticipated Discharge Date Admission Date: July 04, 2023 Subjective slept poorly, edema better Physical Exam 2 Constitutional: well developed, well nourished, + morbidly obese, + physical limitations (sitting up in chair on 02NC) and cooperative; no acute distress Eyes: EOM intact bilaterally ENMT: Ears: no external ear abnormality Nose: no external nose abnormality Mouth: + dry oral mucous membranes Neck: no nuchal rigidity Respiratory: normal respiratory effort Auscultation: + diminished lung sounds Cardiovascular: Rate/Rhythm: regular rate (HS distant) and regular rhythm E xtremities: + edema (3+ BLE distally and 1-2+ proximally) Gastrointestinal (Abdomen): Inspection/Auscultation: normal bowel sounds P ercussion/Palpation: abdomen soft; abdomen nontender Musculoskeletal: Extremities: + abnormal strength Skin: no rashes, warm and dry Psychiatric: Orientation: alert and oriented x 3 Results & Data Vital Signs (Past 12 Hours) Vital Signs Temp Pulse Pulse Resp BP BP Pulse Ox 07/18/23 12:30 37.0 C 63 16 144/73 H 96 07/18/23 07:52 37.0 C 67 16 190/74 H 170/75 H 98 07/18/23 07:30 61 07/18/23 03:29 36.3 C L 63 16 124/71 97 O2 Del Method O2 Flow Rate 07/18/23 12:30 Nasal Cannula 2 07/18/23 07:52 Nasal Cannula 2 07/18/23 07:30 07/18/23 03:29 Nasal Cannula 3 Laboratory Results 07/16/23 05:58 07/18/23 04:52 (2) CKD (chronic kidney disease) stage 3, GFR 30-59 ml/min Chronic kidney disease stage 3 subtype: unspecified whether 3a or 3b Qualified Code(s): N18.30 - Chronic kidney disease, stage 3 unspecified
[2023-07-18] MEDS: MELATONIN 3 MG TAB PO SCH (21:49)
[2023-07-18] MEDS: LANTUS PER UNIT CHARGE SQ SCH (21:49)
[2023-07-19] MEDS: FUROSEMIDE 100 MG in 0.9 % SODIUM CHLORIDE 90 ML IV SCH ×3 (03:03→21:22)
[2023-07-19] MEDS: HEPARIN SOD 5,000 UNIT/0.5 ML VIAL SQ SCH ×3 (05:49→21:24)
[2023-07-19 06:01] LABS: BUN Creatinine Ratio 20.7 (10-20); Calcium 8.6 mg/dl (8.6-10.3); Creatinine Clr Calc Pharmacy 50.3 ml/min; Est GFR (African American) 32.4 ml/min; Est GFR (Non-African American) 27.9 ml/min; Potassium 4.3 mmol/L (3.5-5.1)
[2023-07-19] MEDS: PANTOprazole 40 MG in SYRINGE 0 ML IV SCH ×2 (08:58→21:22)
[2023-07-19] MEDS: INSULIN ASPART PER UNIT CHARGE SC SCH ×4 (08:58→21:34)
[2023-07-19] MEDS: FLUoxetine HCL 20 MG CAP PO SCH (09:00)
[2023-07-19] MEDS: POTASSIUM CHLORIDE CRTAB 20 MEQ TABCR PO SCH ×2 (09:00→21:23)
[2023-07-19] MEDS: CYANOCOBALAMIN (B-12) 500 MCG TABLET PO SCH (09:00)
[2023-07-19] MEDS: carvediloL 12.5 MG TAB PO SCH ×2 (09:01→16:33)
[2023-07-19] MEDS: ASPIRIN 81 MG ECTAB PO SCH (09:01)
[2023-07-19] MEDS: hydrALAZINE TAB 50 MG TAB PO SCH ×3 (09:02→21:23)
--- NOTE | 2023-07-19 11:11 | Nephrology Progress Note ---
Date of Service July 19, 2023 Assessment & Plan (1) Acute on chronic renal insufficiency: Plan: Today plateaued creatinine after recurrent/further worsening and recently oliguric stage 1 DAHLIA on CKD 3 > baseline creatinine 1.4-1.5 most recently. About 1 L urine output past 2 days each. Creatinine had improved to normal w/ aggressive diuresis; then radha again in correlation w/ scaling back on diuretics. With resuming diuretics creatinine appears to be plateau'ing. prerenal versus ATN in cardiorenal picture; cannot rule out glomerular process w/ volume overload. also w/ rapidly progressive ckd as below; now stage 3 (prior to this admission) after no CKD as recently as August 2022. UOP had been drifting down (1175 > 600 > 375 ML > 1000> 900 mL so far today); bedweights no longer trending up. her lasix gtt was started 07/06 and lowered from 20 mg hourly > 10 mg on 07/08, then stopped on 07/10; a few days later, uptrend in creatinine recurs, though in this timeframe also with several GI issues > limited po intake, N, diarrhea. also on dapto 07/06-07/12, stopped in part d/t N. Repeat urinalysis July 15 with ongoing inflammation and 3 g proteinuria Lasix drip resumed but at lower 10 mg hourly dose on July 16. -daily bmp -holding slow mag given diarrhea and levels had been ok; recheck in AM and cont to hold med -cont K dosing 20 m equivalents twice daily -cont strict I/O -daily weights reordered and currently plateaued after recent uptrend (2) CKD (chronic kidney disease) stage 3, GFR 30-59 ml/min: Plan: She has rapidly progressive CKD >> prior to March 2023 creatinine was 0.8 (last lab check was February 2023); then in March during an admission she had DAHLIA w/ labile renal function ever since, 1.4-1.5 range. 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 albumin has dropped from 3.2 (a baseline) at admission to 2.3. unremarkable renal/adrenal imaging 07/10. -glomerular dz w/u pending > ESR, antihistone Ab, complement, ANCA, anti dsDNA, anti GBM, hepatitis panel, serum free light chains and immunofixation; cannot r/o need for renal bx; anti GBM Ab and PLA2R both ordered at later date and verified w/ lab; some of these labs may take > 1 wk to finalize -24 hr urine prot electrophor/IF in process of collection -Will need neph f/u after d/c (3) CHF (congestive heart failure): Plan: -cont lasix gtt -1.5L FR -daily bmp -continue hydralazine at 50 mg tid. coreg 12.5 bid -note that high doses of gabapentin can also worsen edema > on hold currently Night Bipap > both aldactone and lisinopril now on hold; just started po lasix 07/13 then back to gtt on 07/16 Creat radha x 5 days, then plateau'd x 48 h, now improving back on gtt. Bicarb is Somewhat high but ABG and VBG shows Co2 retention and Compensated picture. No need to add diamox. She really needs night time Bipap if possible. Admission and Anticipated Discharge Date Admission Date: July 04, 2023 Subjective no overnight events. swelling and breathing continue to improve. no voiding c/o or N Review of Systems 2 Review of Systems: All systems reviewed & are unremarkable except as noted in Subjective Physical Exam 2 Constitutional: well developed, well nourished, + morbidly obese, + physical limitations (lying flat in bed on 02NC) and cooperative; no acute distress Eyes: EOM intact bilaterally ENMT: Ears: no external ear abnormality Nose: no external nose abnormality Mouth: + dry oral mucous membranes Neck: no nuchal rigidity Respiratory: normal respiratory effort Auscultation: + diminished lung sounds Cardiovascular: Rate/Rhythm: regular rate (HS distant) and regular rhythm E xtremities: + edema (3+ BLE distally and 1-2+ proximally) Gastrointestinal (Abdomen): Inspection/Auscultation: normal bowel sounds P ercussion/Palpation: abdomen soft; abdomen nontender Musculoskeletal: Extremities: + abnormal strength Skin: no rashes, warm and dry Psychiatric: Orientation: alert and oriented x 3 Results & Data Vital Signs (Past 12 Hours) Vital Signs Temp Pulse Pulse Resp BP Pulse Ox O2 Del Method 07/19/23 07:55 36.6 C 63 20 147/66 H 98 Room Air 07/19/23 07:24 62 12/02/23 04:02 36.5 C 64 16 152/71 H 97 Nasal Cannula 07/18/23 23:25 36.6 C 55 L 18 123/61 98 Nasal Cannula O2 Flow Rate 07/19/23 07:55 07/19/23 07:24 07/19/23 04:02 3 07/18/23 23:25 3 Laboratory Results 07/16/23 05:58 07/19/23 04:53 (2) CKD (chronic kidney disease) stage 3, GFR 30-59 ml/min Chronic kidney disease stage 3 subtype: unspecified whether 3a or 3b Qualified Code(s): N18.30 - Chronic kidney disease, stage 3 unspecified
--- NOTE | 2023-07-19 19:04 | Hospitalist Progress Note ---
Date of Service July 19, 2023 Assessment & Plan (1) CHF (congestive heart failure): (2) Hypertension: (3) Diabetic ulcer of foot associated with type 2 diabetes mellitus, with bone involvement without evidence of necrosis: (4) Lymphedema of both lower extremities: (5) Anemia: (6) UTI (urinary tract infection): (7) Type 2 diabetes mellitus, with long-term current use of insulin: (8) Diabetic peripheral neuropathy associated with type 2 diabetes mellitus: (9) Obesity: Plan: per admitting service notes with addendum: Ms. Rand is a 53-year-old male with PMH of insulin-dependent T2DM, diabetic neuropathy, diabetic nephropathy with CKD stage III, HTN, HLD, HFpEF, morbid obesity, necrotizing fasciitis, bilateral lower extremity lymphedema, TRACI, left chronic heel ulcer presented to the ED for generalized swelling/increased edema of BLE and not feeling well, and admitted for acute heart failure with preserved EF. Patient responded robustly to IV diuersis with up to 8L UOP in a day; however course complicated by nausea, vomiting, and diarrhea. There was no clear eitology of these gastric concerns, but potentially related to daptomycin which was initiated for a presumptive cellulitis of RLE. Discontinuation of daptomycin, as well as less strict glucose control, was noted by improved GI symptoms. During this time, lasix was held intermittently and dosing readjusted. As well as additional of ACEi for blood pressure control. Since 07/10 there has been a precipitous increase in Cr and decrease in urine output. Heaton remains in place now for further IOs of acute on chronic kidney injury. #Acute kidney injury over CKD stage III *improving #Metabolic alkalosis, compensation for YVROSE/OHS - Admitting creatinine of 1.81, baseline creatinine around 1.4. -Continue diuresis as tolerated -No further IV mag, continue mag BID -Encourage BiPAP when able -Hold lisinopri -Urine lytes ordered, UA -Strict I/OS -Nephrology on consult -Renal US duplex iso increase Cr s/p ACEi :Technically nondiagnostic evaluation for renal artery stenosis given suboptimal penetration. No elevated velocities within visualized portions of the renal arteries although renal arteries partial ly obscured. 07/17 Creatinine increased to 2.6 Furosemide drip ordered Potassium 4 times daily ordered 07/18 Creatinine decreased to 2.3 On Lasix drip Respiratory status stable leg edema improving Potassium supplement 07/20 crea 1.7 on Lasix drip improving overall #Nausea *improved today #Relative hypoglycemia #Multiple BM #History of IBS -history of impaction, generalized abdominal pain -Will trial reglan for nausea/promotility iso diabetes -KUB with stool burden initially with concern for impending impaction given recent history of such, 1x bisacodyl suppository and bowel regimen; now course with diarrhea -CTM with liquid diet--trial of advancing diet today -c diff sent negative -?relative hypoglycemia contributing, POC in low 100s--quite low given A1C 10% --reduce glargine--doing better with juice intake, but still feels poorly -Trial dicyclomine, hold bowel regimen, reassess -Discontinued Daptomycin 07/12--wound appears chronic and no changes overall, drainage/crusting c/w chronic lymphedema, however, was not hospitalist who initiated therapy therefore treatment efficacy difficult to assess, but no notable improvement since following--will monitor closely (received 7 days CTX and x5 days dapto, likely sufficient) -Antiemitics prn -Additional immodium prn Resolved #Hypertension -Antihypertensives held thus far given aggressive diuresis -Discontinue ACEi -Relatively hypotensive decreased 50 Hydalazine TID (hold for SBP <120), discontinued imdur 20mg -Continue coreg 12.5 mg BID Continue Coreg 12.5 mg p.o. twice daily, hydralazine 50 mg p.o. 3 times daily Seems to be improving Monitor #Acute exacerbation of heart failure with preserved ejection fraction #Acute Right heart failure Upon chart review, patient's weight of 146 kg on 05/08/2023, presenting weight at 176.6 kg on 07/04/2023. Admitting CXR with pulmonary vascular congestion, at admission : 2-3+ pitting edema BLE along with her chronic lymphedema and UE pitting edema noted. Patient's home Lasix was increased from 20mg to 40 mg the day prior to arrival at the [facility]. Troponin flat trended in 70s. Patient with no chest pain. Admitting EKG with no acute ST or T changes. Echo with EF of 55 to 60%, grade 1 diastolic dysfunction, no LV segmental wall motion abnormalities, flattened septum consistent with RV pressure/volume overload. Metoprolol on hold due to bradycardia. Hydralazine dc'd / gabapentin held as it can worsen edema however, blood pressure difficult to manage at this time therefore hydralazine resumed -Continue Daily weights. Strict I's and O's, monitor and replete electrolytes as appropriate. -Encourage BiPAP qhs and with naps, encourage compliance -PO lasix to q12 -Cardiology following, appreciate recommendations -Held spironolactone 12.5mg daily and lisinopril 40mg qam held 2/2 renal dysfunction -Continue coreg 12.5 bid Still has lower extremity edema, seems to be improving no signs of infection at this time Currently on Lasix drip #Acute UTI: Patient started on Rocephin 07/04,klebsiella UTI, completed 7 days of CTX #LLE Cellulitis #Chronic lymphedema - discontinued daptomycin given nausea/no clear signs of infection/improvement of area. chronic changes appreciated, received 7 days ctx and 5 days dapto. - will hold off on further antibiotics at this point, wound care consulted, monitor closely Other chronic medical conditions: Iron deficiency anemia: Baseline hemoglobin around 10, stable, continue home iron supplementation Insulin-dependent T2DM: Complicated with nephropathy and neuropathy. A1c of 10.1% on 04/28/2023. Sliding scale insulin while in hospital. Was taken off of Ozempic about 1 month ago as it was assumed that this was causing nausea for the patient. 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 Diabetic neuropathy: hold home gabapentin Morbid obesity: Encourage diet/lifestyle modification with exercise DVT prophylaxis: Heparin subcu Full code Disposition: PT/OT, CM to assist with DC plan (odalis until 07/31) Admission and Anticipated Discharge Date Admission Date: July 04, 2023 Subjective ff up for CHF, etc seen resting in bed, comfortable feels fine overall no chest pain, dyspnea, palpitations, dizziness no other new symptoms Review of Systems Review of Systems: all noted and negative except for above Physical Exam Physical Exam: General- oriented x 3, not in distress, speaks in sentences with no effort or accessory muscle use Eyes- anicteric Neck- no JVD Lungs- clear BS BL Heart- normal rate, regular rhythm; no murmurs Abdomen- normal bowel sounds, nondistended, soft, nontender Extremities-grae 1 lower ext edema, (+) mild erythema, no calf tenderness Neuro- sleepy, oriented ; no gross focal neurologic deficits Skin- warm & dry Results & Data Results & Data Vital Signs (Past 12 Hours) Vital Signs Temp Pulse Pulse Resp BP Pulse Ox O2 Del Method 07/19/23 16:09 61 07/19/23 15:15 36.4 C L 62 20 144/78 H 97 Nasal Cannula 07/19/23 11:25 36.8 C 61 20 112/69 98 Nasal Cannula 07/19/23 07:55 36.6 C 63 20 147/66 H 98 Room Air 07/19/23 07:24 62 O2 Flow Rate 07/19/23 16:09 07/19/23 15:15 3 07/19/23 11:25 3 07/19/23 07:55 07/19/23 07:24 all noted and reviewed including below (2) Hypertension Hypertension type: unspecified Qualified Code(s): I10 - Essential (primary) hypertension (7) Type 2 diabetes mellitus, with long-term current use of insulin Diabetes mellitus complication status: without complication Qualified Code(s): E11.9 - Type 2 diabetes mellitus without complications; Z79.4 - penitentiary (current) use of insulin
[2023-07-19] MEDS: MELATONIN 3 MG TAB PO SCH (21:23)
[2023-07-19] MEDS: LANTUS PER UNIT CHARGE SQ SCH (21:24)
[2023-07-20] MEDS: HEPARIN SOD 5,000 UNIT/0.5 ML VIAL SQ SCH ×3 (05:33→21:15)
[2023-07-20] MEDS: FUROSEMIDE 100 MG in 0.9 % SODIUM CHLORIDE 90 ML IV SCH ×2 (06:38→16:09)
[2023-07-20 06:42] LABS: BUN Creatinine Ratio 24.4 (10-20); Calcium 8.6 mg/dl (8.6-10.3); Creatinine Clr Calc Pharmacy 57.7 ml/min; Est GFR (African American) 38.4 ml/min; Est GFR (Non-African American) 33.1 ml/min; Potassium 4.3 mmol/L (3.5-5.1)
[2023-07-20] MEDS: hydrALAZINE TAB 50 MG TAB PO SCH ×3 (08:34→21:15)
[2023-07-20] MEDS: FLUoxetine HCL 20 MG CAP PO SCH (08:34)
[2023-07-20] MEDS: CYANOCOBALAMIN (B-12) 500 MCG TABLET PO SCH (08:34)
[2023-07-20] MEDS: POTASSIUM CHLORIDE CRTAB 20 MEQ TABCR PO SCH ×2 (08:35→21:15)
[2023-07-20] MEDS: PANTOprazole 40 MG in SYRINGE 0 ML IV SCH ×2 (08:35→21:14)
[2023-07-20] MEDS: ASPIRIN 81 MG ECTAB PO SCH (08:35)
[2023-07-20] MEDS: carvediloL 12.5 MG TAB PO SCH ×2 (08:35→16:11)
[2023-07-20] MEDS: INSULIN ASPART PER UNIT CHARGE SC SCH ×4 (09:00→21:19)
--- NOTE | 2023-07-20 11:02 | Nephrology Progress Note ---
Date of Service July 20, 2023 Assessment & Plan (1) Acute on chronic renal insufficiency: Plan: improvin gcreatinine after recurrent/further worsening and recently oliguric stage 1 DAHLIA on CKD 3 > baseline creatinine 1.4-1.5 most recently. Creatinine had improved to normal w/ aggressive diuresis; then radha again in correlation w/ scaling back on diuretics. With resuming diuretics creatinine has again improved. ddx includes ischemic ATN in cardiorenal picture; cannot rule out glomerular process w/ volume overload. also w/ rapidly progressive ckd as below; now stage 3 (prior to this admission) after no CKD as recently as August 2022. UOP has rebounded from oliguria; bedweights no longer trending up. her lasix gtt was started 07/06 and lowered from 20 mg hourly > 10 mg on 07/08, then stopped on 07/10; a few days later, uptrend in creatinine recurs, though in this timeframe also with several GI issues > limited po intake, N, diarrhea. also on dapto 07/06-07/12, stopped in part d/t N. Repeat urinalysis July 15 with ongoing inflammation and 3 g proteinuria Lasix drip resumed but at lower 10 mg hourly dose on July 16. -daily bmp -holding slow mag given diarrhea and levels had been ok -cont K dosing 20 m equivalents twice daily -continue lasix gtt while awaiting glomerular dz w/u; BUN uptrend noted and will monitor -cont strict I/O -daily weights reordered and currently plateaued after recent uptrend -Look to switch to aggressive oral diuretics in next 24 to 48 hours and soon to remove Heaton (2) CKD (chronic kidney disease) stage 3, GFR 30-59 ml/min: Plan: She has rapidly progressive CKD >> prior to March 2023 creatinine was 0.8 (last lab check was February 2023); then in March during an admission she had DAHLIA w/ labile renal function ever since, 1.4-1.5 range. 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 albumin has dropped from 3.2 (a baseline) at admission to 2.3. unremarkable renal/adrenal imaging 07/10. -glomerular dz w/u pending > ESR, antihistone Ab, complement, ANCA, anti dsDNA, anti GBM, hepatitis panel, serum free light chains and immunofixation; cannot r/o need for renal bx; anti GBM Ab and PLA2R both ordered at later date and verified w/ lab; some of these labs may take > 1 wk to finalize -24 hr urine prot electrophor/IF in process of collection -Will need neph f/u after d/c (3) CHF (congestive heart failure): Plan: -cont lasix gtt -1.5L FR -daily bmp -continue hydralazine at 50 mg tid. coreg 12.5 bid -note that high doses of gabapentin can also worsen edema > on hold currently Night Bipap > both aldactone and lisinopril now on hold; just started po lasix 07/13 then back to gtt on 07/16 Creat radha x 5 days, then plateau'd x 48 h, now improving back on gtt. Bicarb is Somewhat high but ABG and VBG shows Co2 retention and Compensated picture. No need to add diamox. She really needs night time Bipap if possible. Admission and Anticipated Discharge Date Admission Date: July 04, 2023 Subjective no interval events clinically and no c/o. remains on 3 L of oxygen. Denies nausea vomiting. Thinks edema continues to improve. Review of Systems 2 Review of Systems: All systems reviewed & are unremarkable except as noted in Subjective Physical Exam 2 Constitutional: well developed, well nourished, + morbidly obese, + physical limitations (Sitting up on the side of the bed on 02NC) and cooperative; no acute distress Eyes: EOM intact bilaterally ENMT: Ears: no external ear abnormality Nose: no external nose abnormality Mouth: + dry oral mucous membranes Neck: no nuchal rigidity Respiratory: normal respiratory effort Auscultation: + diminished lung sounds Cardiovascular: Rate/Rhythm: regular rate (HS distant) and regular rhythm E xtremities: + edema (3+ BLE distally and 1+ proximally) Gastrointestinal (Abdomen): Inspection/Auscultation: normal bowel sounds P ercussion/Palpation: abdomen soft; abdomen nontender Musculoskeletal: Extremities: + abnormal strength Skin: no rashes, warm and dry Psychiatric: Orientation: alert and oriented x 3 Results & Data Vital Signs (Past 12 Hours) Vital Signs Temp Pulse Pulse Resp BP BP Pulse Ox 07/20/23 08:40 07/20/23 07:46 37.3 C 70 20 153/79 H 98 07/20/23 07:09 66 07/20/23 03:50 36.9 C 68 16 150/77 H 96 07/19/23 23:15 36.7 C 59 L 16 143/74 H 97 O2 Del Method O2 Flow Rate 07/20/23 08:40 Nasal Cannula 3 07/20/23 07:46 Nasal Cannula 3 07/20/23 07:09 07/20/23 03:50 Nasal Cannula 3 07/19/23 23:15 Nasal Cannula 3 Laboratory Results 07/16/23 05:58 07/20/23 05:23 (2) CKD (chronic kidney disease) stage 3, GFR 30-59 ml/min Chronic kidney disease stage 3 subtype: unspecified whether 3a or 3b Qualified Code(s): N18.30 - Chronic kidney disease, stage 3 unspecified
[2023-07-20] MEDS: MELATONIN 3 MG TAB PO SCH (21:15)
[2023-07-20] MEDS: LANTUS PER UNIT CHARGE SQ SCH (21:19)
[2023-07-21] MEDS: FUROSEMIDE 100 MG in 0.9 % SODIUM CHLORIDE 90 ML IV SCH ×3 (02:17→22:42)
[2023-07-21 05:24] LABS: BUN Creatinine Ratio 27.6 (10-20); Calcium 8.9 mg/dl (8.6-10.3); Creatinine Clr Calc Pharmacy 68.5 ml/min; Est GFR (African American) 47.2 ml/min; Est GFR (Non-African American) 40.7 ml/min; Magnesium 1.4 mg/dl (1.7-2.4); Potassium 3.9 mmol/L (3.5-5.1)
[2023-07-21] MEDS: HEPARIN SOD 5,000 UNIT/0.5 ML VIAL SQ SCH ×3 (06:18→21:26)
[2023-07-21] MEDS: LOPERAMIDE HCL 2 MG CAP PO PRN (08:48)
[2023-07-21] MEDS: CYANOCOBALAMIN (B-12) 500 MCG TABLET PO SCH (08:49)
[2023-07-21] MEDS: POTASSIUM CHLORIDE CRTAB 20 MEQ TABCR PO SCH ×2 (08:49→21:25)
[2023-07-21] MEDS: FLUoxetine HCL 20 MG CAP PO SCH (08:50)
[2023-07-21] MEDS: hydrALAZINE TAB 50 MG TAB PO SCH ×3 (08:50→21:26)
[2023-07-21] MEDS: ASPIRIN 81 MG ECTAB PO SCH (08:50)
[2023-07-21] MEDS: carvediloL 12.5 MG TAB PO SCH ×2 (08:51→17:41)
[2023-07-21] MEDS: PANTOprazole 40 MG in SYRINGE 0 ML IV SCH ×2 (08:55→21:32)
[2023-07-21] MEDS: INSULIN ASPART PER UNIT CHARGE SC SCH ×4 (08:56→21:33)
--- NOTE | 2023-07-21 09:28 | Nephrology Progress Note ---
Date of Service July 21, 2023 Assessment & Plan Admission and Anticipated Discharge Date Admission Date: July 04, 2023 Subjective Assessment & Plan (1) Acute on chronic renal insufficiency: Plan: improvin gcreatinine after recurrent/further worsening and recently oliguric stage 1 DAHLIA on CKD 3 > baseline creatinine 1.4-1.5 most recently. Creatinine h ad improved to normal w/ aggressive diuresis; then radha again in correlation w/ scaling back on diuretics. With resuming diuretics creatinine has again improved. ddx includes ischemic ATN in cardiorenal picture; cannot rule out glomerular process w/ volume overload. also w/ rapidly progressive ckd as below; now stage 3 (prior to this admission) after no CKD as recently as August 2022. UOP has rebounded from oliguria; bedweights no longer trending up. her lasix gtt was started 07/06 and lowered from 20 mg hourly > 10 mg on 07/08, then stopped on 07/10; a few days later, uptrend in creatinine recurs, though in this timeframe also with several GI issues > limited po intake, N, diarrhea. also on dapto 07/06-07/12, stopped in part d/t N. Repeat urinalysis July 15 with ongoing inflammation and 3 g proteinuria Lasix drip resumed but at lower 10 mg hourly dose on July 16. holding slow mag given diarrhea and levels had been ok cont K dosing 20 m equivalents twice daily continue lasix gtt while awaiting glomerular dz w/u; BUN uptrend noted and will monitor cont strict I/O daily weights reordered and currently plateaued after recent uptrend (2) CKD (chronic kidney disease) stage 3, GFR 30-59 ml/min: Plan: She has rapidly progressive CKD >> prior to March 2023 creatinine was 0.8 (last lab check was February 2023); then in March during an admission she had DAHLIA w/ labile renal function ever since, 1.4-1.5 range. 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 albumin has dropped from 3.2 (a baseline) at admission to 2.3. unremarkable renal/adrenal imaging 07/10. -glomerular dz w/u pending > ESR, antihistone Ab, complement, ANCA, anti dsDNA, anti GBM, hepatitis panel, serum free light chains and immunofixation; cannot r/o need for renal bx; anti GBM Ab and PLA2R both ordered at later date and verified w/ lab; some of these labs may take > 1 wk to finalize -24 hr urine prot electrophor/IF in process of collection -Will need neph f/u after d/c (3) CHF (congestive heart failure): Plan: Cont lasix gtt for today--4900 ml urine yesterday 1.5L FR Daily bmp continue hydralazine at 50 mg tid. coreg 12.5 bid Night Bipap both aldactone and lisinopril now on hold Lasxi gtt restarted on 07/16 Creat radha x 5 days, then plateau'd x 48 h, now improving back on lasix gtt. Bicarb is Somewhat high but ABG and VBG shows Co2 retention and Compensated picture. No need to add diamox. She really needs night time Bipap if possible. Subjective No new issues. 4900 ml urine yesterday and creat improved. remains on 2 L of oxygen. Denies nausea vomiting. Review of Systems Review of Systems: All systems reviewed & are unremarkable except as noted in Subjective Physical Exam Constitutional: well developed, well nourished, + morbidly obese, + physical limitations (Sitting up on the side of the bed on 02NC) and cooperative; no acute distress Eyes: EOM intact bilaterally ENMT: Ears: no external ear abnormality Nose: no external nose abnormality Mouth: + dry oral mucous membranes Neck: no nuchal rigidity Respiratory: normal respiratory effort Auscultation: + diminished lung sounds Cardiovascular: Rate/Rhythm: regular rate (HS distant) and regular rhythm Extremities: + edema (3+ BLE distally and 1+ proximally) Gastrointestinal (Abdomen): Inspection/Auscultation: normal bowel sounds Percussion/Palpation: abdomen soft; abdomen nontender Musculoskeletal: Extremities: + abnormal strength Skin: no rashes, warm and dry Psychiatric: Orientation: alert and oriented x 3 Results & Data Vital Signs (Past 12 Hours) Vital Signs Temp Pulse Pulse Resp BP BP Pulse Ox 07/21/23 07:59 36.8 C 70 16 166/68 H 97 07/21/23 03:48 36.4 C L 62 16 138/76 96 07/20/23 22:54 36.6 C 59 L 16 141/75 H 97 07/20/23 22:02 53 L O2 Del Method O2 Flow Rate 07/21/23 07:59 Nasal Cannula 2 07/21/23 03:48 Nasal Cannula 3 07/20/23 22:54 Nasal Cannula 3 07/20/23 22:02
[2023-07-21] MEDS: ONDANSETRON INJ 2 MG/ML 2 ML VIAL IV PRN (10:04)
--- NOTE | 2023-07-21 20:49 | Hospitalist Progress Note ---
Date of Service July 21, 2023 Assessment & Plan (1) Acute on chronic heart failure with preserved ejection fraction (HFpEF): Plan: (1) CHF (congestive heart failure): (2) Hypertension: (3) Diabetic ulcer of foot associated with type 2 diabetes mellitus, with bone involvement without evidence of necrosis: (4) Lymphedema of both lower extremities: (5) Anemia: (6) UTI (urinary tract infection): (7) Type 2 diabetes mellitus, with long-term current use of insulin: (8) Diabetic peripheral neuropathy associated with type 2 diabetes mellitus: (9) Obesity: Plan: per admitting service notes with addendum: Ms. Rand is a 53-year-old male with PMH of insulin-dependent T2DM, diabetic neuropathy, diabetic nephropathy with CKD stage III, HTN, HLD, HFpEF, morbid obesity, necrotizing fasciitis, bilateral lower extremity lymphedema, TRACI, left chronic heel ulcer presented to the ED for generalized swelling/increased edema of BLE and not feeling well, and admitted for acute heart failure with preserved EF. Patient responded robustly to IV diuersis with up to 8L UOP in a day; however course complicated by nausea, vomiting, and diarrhea. There was no clear eitology of these gastric concerns, but potentially related to daptomycin which was initiated for a presumptive cellulitis of RLE. Discontinuation of daptomycin, as well as less strict glucose control, was noted by improved GI symptoms. During this time, lasix was held intermittently and dosing readjusted. As well as additional of ACEi for blood pressure control. Since 07/10 there has been a precipitous increase in Cr and decrease in urine output. Heaton remains in place now for further IOs of acute on chronic kidney injury. #Acute kidney injury over CKD stage III *improving #Metabolic alkalosis, compensation for YVROSE/OHS - Admitting creatinine of 1.81, baseline creatinine around 1.4. -Continue diuresis as tolerated -No further IV mag, continue mag BID -Encourage BiPAP when able -Hold lisinopri -Urine lytes ordered, UA -Strict I/OS -Nephrology on consult -Renal US duplex iso increase Cr s/p ACEi :Technically nondiagnostic evaluation for renal artery stenosis given suboptimal penetration. No elevated velocities within visualized portions of the renal arteries although renal arteries partially obscured. 07/17 Creatinine increased to 2.6 Furosemide drip ordered Potassium 4 times daily ordered 07/18 Creatinine decreased to 2.3 On Lasix drip Respiratory status stable leg edema improving Potassium supplement 07/21 crea 1.5 on Lasix drip improving overall #Nausea *improved today #Relative hypoglycemia #Multiple BM #History of IBS -history of impaction, generalized abdominal pain -Will trial reglan for nausea/promotility iso diabetes -KUB with stool burden initially with concern for impending impaction given recent history of such, 1x bisacodyl suppository and bowel regimen; now course with diarrhea -CTM with liquid diet--trial of advancing diet today -c diff sent negative -?relative hypoglycemia contributing, POC in low 100s--quite low given A1C 10% --reduce glargine--doing better with juice intake, but still feels poorly -Trial dicyclomine, hold bowel regimen, reassess -Discontinued Daptomycin 07/12--wound appears chronic and no changes overall, drainage/crusting c/w chronic lymphedema, however, was not hospitalist who initiated therapy therefore treatment efficacy difficult to assess, but no notable improvement since following--will monitor closely (received 7 days CTX and x5 days dapto, likely sufficient) -Antiemitics prn -Additional immodium prn (+) diarrhea check C diff #Hypertension -Antihypertensives held thus far given aggressive diuresis -Discontinue ACEi -Relatively hypotensive decreased 50 Hydalazine TID (hold for SBP <120), discontinued imdur 20mg -Continue coreg 12.5 mg BID Continue Coreg 12.5 mg p.o. twice daily, hydralazine 50 mg p.o. 3 times daily Seems to be improving Monitor #Acute exacerbation of heart failure with preserved ejection fraction #Acute Right heart failure Upon chart review, patient's weight of 146 kg on 05/08/2023, presenting weight at 176.6 kg on 07/04/2023. Admitting CXR with pulmonary vascular congestion, at admission : 2-3+ pitting edema BLE along with her chronic lymphedema and UE pitting edema noted. Patient's home Lasix was increased from 20mg to 40 mg the day prior to arrival at the [facility]. Troponin flat trended in 70s. Patient with no chest pain. Admitting EKG with no acute ST or T changes. Echo with EF of 55 to 60%, grade 1 diastolic dysfunction, no LV segmental wall motion abnormalities, flattened septum consistent with RV pressure/volume overload. Metoprolol on hold due to bradycardia. Hydralazine dc'd / gabapentin held as it can worsen edema however, blood pressure difficult to manage at this time therefore hydralazine resumed -Continue Daily weights. Strict I's and O's, monitor and replete electrolytes as appropriate. -Encourage BiPAP qhs and with naps, encourage compliance -PO lasix to q12 -Cardiology following, appreciate recommendations -Held spironolactone 12.5mg daily and lisinopril 40mg qam held 2/2 renal dysfunction -Continue coreg 12.5 bid Still has lower extremity edema, seems to be improving no signs of infection at this time Currently on Lasix drip #Acute UTI: Patient started on Rocephin 07/04,klebsiella UTI, completed 7 days of CTX #LLE Cellulitis #Chronic lymphedema - discontinued daptomycin given nausea/no clear signs of infection/improvement of area. chronic changes appreciated, received 7 days ctx and 5 days dapto. - will hold off on further antibiotics at this point, wound care consulted, monitor closely Other chronic medical conditions: Iron deficiency anemia: Baseline hemoglobin around 10, stable, continue home iron supplementation Insulin-dependent T2DM: Complicated with nephropathy and neuropathy. A1c of 10.1% on 04/28/2023. Sliding scale insulin while in hospital. Was taken off of Ozempic about 1 month ago as it was assumed that this was causing nausea for the patient. 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 Diabetic neuropathy: hold home gabapentin Morbid obesity: Encourage diet/lifestyle modification with exercise DVT prophylaxis: Heparin subcu Full code Disposition: PT/OT, CM to assist with DC plan (odalis until 07/31) Admission and Anticipated Discharge Date Admission Date: July 04, 2023 Subjective Follow-up for CHF, etc. Resting in bedside chair, comfortable States she is having some diarrhea No abdominal pain No other new symptoms no chest pain, dyspnea, palpitations, dizziness Review of Systems Review of Systems: all noted and negative except for above Physical Exam Physical Exam: General- oriented x 3, not in distress, speaks in sentences with no effort or accessory muscle use Eyes- anicteric Neck- no JVD Lungs- clear BS BL Heart- normal rate, regular rhythm; no murmurs Abdomen- normal bowel sounds, nondistended, soft, nontender Extremities- (+) Grade 1lower leg edema, no calf tenderness Neuro- alert, oriented x 3; no gross focal neurologic deficits Skin- warm & dry Results & Data Results & Data Vital Signs (Past 12 Hours) Vital Signs Temp Pulse Pulse Resp BP BP Pulse Ox 07/21/23 19:00 37 C 61 20 193/73 H 98 07/21/23 16:26 36.9 C 64 16 162/73 H 98 07/21/23 14:08 63 07/21/23 11:45 36.8 C 71 16 138/68 98 07/21/23 09:30 O2 Del Method O2 Flow Rate 07/21/23 19:00 Room Air 07/21/23 16:26 Nasal Cannula 2 07/21/23 14:08 07/21/23 11:45 Nasal Cannula 2 07/21/23 09:30 Nasal Cannula 3 all noted and reviewed including below
[2023-07-21] MEDS: MELATONIN 3 MG TAB PO SCH (21:26)
[2023-07-21] MEDS: LANTUS PER UNIT CHARGE SQ SCH (21:33)
[2023-07-21] MEDS: ACETAMINOPHEN 325 MG TAB PO PRN (21:41)
[2023-07-22 05:38] LABS: BUN Creatinine Ratio 24.1 (10-20); Calcium 8.8 mg/dl (8.6-10.3); Creatinine Clr Calc Pharmacy 57.7 ml/min; Est GFR (African American) 38.9 ml/min; Est GFR (Non-African American) 33.6 ml/min
[2023-07-22] MEDS: HEPARIN SOD 5,000 UNIT/0.5 ML VIAL SQ SCH ×3 (05:57→21:43)
[2023-07-22] MEDS: ACETAMINOPHEN 325 MG TAB PO PRN ×3 (08:36→21:47)
[2023-07-22] MEDS: PANTOprazole 40 MG in SYRINGE 0 ML IV SCH ×2 (08:36→22:34)
[2023-07-22] MEDS: POTASSIUM CHLORIDE CRTAB 20 MEQ TABCR PO SCH ×2 (08:36→21:42)
[2023-07-22] MEDS: CYANOCOBALAMIN (B-12) 500 MCG TABLET PO SCH (08:37)
[2023-07-22] MEDS: hydrALAZINE TAB 50 MG TAB PO SCH ×3 (08:37→21:42)
[2023-07-22] MEDS: FLUoxetine HCL 20 MG CAP PO SCH (08:37)
[2023-07-22] MEDS: ASPIRIN 81 MG ECTAB PO SCH (08:38)
[2023-07-22] MEDS: carvediloL 12.5 MG TAB PO SCH ×2 (08:38→17:57)
[2023-07-22] MEDS: FUROSEMIDE 100 MG in 0.9 % SODIUM CHLORIDE 90 ML IV SCH ×2 (08:41→17:55)
[2023-07-22] MEDS: INSULIN ASPART PER UNIT CHARGE SC SCH ×4 (09:01→21:44)
--- NOTE | 2023-07-22 10:56 | Nephrology Progress Note ---
Date of Service July 22, 2023 Assessment & Plan Admission and Anticipated Discharge Date Admission Date: July 04, 2023 Subjective Assessment & Plan (1) Acute on chronic renal insufficiency: Plan: improvin gcreatinine after recurrent/further worsening and recently oliguric stage 1 DAHLIA on CKD 3 > baseline creatinine 1.4-1.5 most recently. Creatinine h ad improved to normal w/ aggressive diuresis; then radha again in correlation w/ scaling back on diuretics. With resuming diuretics creatinine has again improved. ddx includes ischemic ATN in cardiorenal picture; cannot rule out glomerular process w/ volume overload. also w/ rapidly progressive ckd as below; now stage 3 (prior to this admission) after no CKD as recently as August 2022. UOP has rebounded from oliguria; bedweights no longer trending up. her lasix gtt was started 07/06 and lowered from 20 mg hourly > 10 mg on 07/08, then stopped on 07/10; a few days later, uptrend in creatinine recurs, though in this timeframe also with several GI issues > limited po intake, N, diarrhea. also on dapto 07/06-07/12, stopped in part d/t N. Repeat urinalysis July 15 with ongoing inflammation and 3 g proteinuria Lasix drip resumed but at lower 10 mg hourly dose on July 16. holding slow mag given diarrhea and levels had been ok cont K dosing 20 m equivalents twice daily continue lasix gtt while awaiting glomerular dz w/u; BUN uptrend noted and will monitor cont strict I/O daily weights reordered and currently plateaued after recent uptrend (2) CKD (chronic kidney disease) stage 3, GFR 30-59 ml/min: Plan: She has rapidly progressive CKD >> prior to March 2023 creatinine was 0.8 (last lab check was February 2023); then in March during an admission she had DAHLIA w/ labile renal function ever since, 1.4-1.5 range. 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 albumin has dropped from 3.2 (a baseline) at admission to 2.3. unremarkable renal/adrenal imaging 07/10. -glomerular dz w/u pending > ESR, antihistone Ab, complement, ANCA, anti dsDNA, anti GBM, hepatitis panel, serum free light chains and immunofixation; cannot r/o need for renal bx; anti GBM Ab and PLA2R both ordered at later date and verified w/ lab; some of these labs may take > 1 wk to finalize -24 hr urine prot electrophor/IF in process of collection -Will need neph f/u after d/c (3) CHF (congestive heart failure): Plan: Cont lasix gtt for today--4200 ml urine yesterday. Once Excess volume is removed urine Output should slow down 1.5L FR Daily bmp continue hydralazine at 50 mg tid. coreg 12.5 bid Night Bipap both Aldactone and lisinopril now on hold Lasix gtt restarted on 07/16 Creat radha x 5 days, then plateau'd x 48 h, then improved and now worsening again. very confusing Picture with Diuresis and renal function !!! Bicarb is Somewhat high but ABG and VBG shows Co2 retention and Compensated picture. No need to add diamox. She really needs night time Bipap if possible. Subjective No new issues. 4900 ml urine yesterday and creat improved. remains on 4 L of oxygen. Denies nausea vomiting. Review of Systems Review of Systems: All systems reviewed & are unremarkable except as noted in Subjective Physical Exam Constitutional: well developed, well nourished, + morbidly obese, + physical limitations (Sitting up on the side of the bed on 02NC) and cooperative; no acute distress Eyes: EOM intact bilaterally ENMT: Ears: no external ear abnormality Nose: no external nose abnormality Mouth: + dry oral mucous membranes Neck: no nuchal rigidity Respiratory: normal respiratory effort Auscultation: + diminished lung sounds Cardiovascular: Rate/Rhythm: regular rate (HS distant) and regular rhythm Extremities: + edema (3+ BLE distally and 1+ proximally) Gastrointestinal (Abdomen): Inspection/Auscultation: normal bowel sounds Percussion/Palpation: abdomen soft; abdomen nontender Musculoskeletal: Extremities: + abnormal strength Skin: no rashes, warm and dry Psychiatric: Orientation: alert and oriented x 3 Results & Data Vital Signs (Past 12 Hours) Vital Signs Temp Pulse Pulse Resp BP BP Pulse Ox 07/22/23 08:00 36.9 C 67 14 129/78 89 L 07/22/23 05:59 66 07/22/23 03:30 36.4 C L 64 18 130/65 97 O2 Del Method O2 Flow Rate 07/22/23 08:00 Nasal Cannula 4 07/22/23 05:59 07/22/23 03:30 Nasal Cannula 2
[2023-07-22] MEDS: LOPERAMIDE HCL 2 MG CAP PO PRN (13:31)
[2023-07-22 13:32] LABS: ANCA Screen P-ANCA POS (Negative); Anti-DNASE B Ab 195 U/mL (<301); Anti-Histone Ab <1.0 U (<1.0); Complement C3 117 mg/dL (83-193); Free Kappa 94.2 mg/L (3.3-19.4); Free Kappa/Lambda Ratio 2.03 (0.26-1.65); Free Lambda 46.3 mg/L (5.7-26.3); HBSAG NON-REACTIVE (NON-REACTIVE)
--- NOTE | 2023-07-22 14:13 | Pharmacy Report ---
Pharmacy Glycemic Short Note 2 - Date of Service July 22, 2023 - Glycemic Short BSG Results (Last 24 hours): 07/21/23 07/21/23 07/22/23 17:11 20:30 04:23 Glucose 107 H POC Glucose 118 H 152 H 07/22/23 07/22/23 08:30 12:10 Glucose POC Glucose 134 H 135 H OUTPATIENT ANTIDIABETIC REGIMEN: * Levemir 27 units SC BID * Humalog 10 units SC AC * HbA1c: 10.1% (04/28/23) ASSESSMENT: 07/21/23 * Sofiya received 39 units of insulin yesterday (12 were basal) * Fasting BSG today within goal range * Carb ratio slightly tightened on Friday, all BSGs within acceptable range * She continues on a Lasix drip. Her serum creatinine slightly bumped up today after improving. We will continue to follow due to unstable renal function and potential for insulin accumulation 07/18/23 * BSGs yesterday were [phone] mg/dL. Patient received 36 units of insulin (12 units of basal and 24 units of bolus). * Fasting today is 112 mg/dL. Continue 12 units. * CR was tightened yesterday with excellent results. Continue. 07/17/23 * BSGs yesterday were [phone] mg/dL. Patient received 37 units of insulin (12 units of basal and 25 units of bolus). * Fasting today is 128 mg/dL. Continue 12 units. * Tighten CR since BSGs trend upwards. 07/15: * BSGs remain reasonably well-controlled over past 72 hours * Received 25 units of insulin (10 units of basal and 15 units of prandial/correctional bolus) * Fasting BSG of 110 mg/dL this morning * Do not anticipate any changes to glycemic regimen today 07/13: * Sofiya received 22 units of insulin yesterday, 10 basal + 12 bolus. BSGs were: [phone] mg/dL. * Fasting BSG of 135 mg/dL today is at goal. No change to insulin regimen necessary. * Diet advanced and being tolerated. 07/11: * BSGs yesterday [id number] mg/dL. Patient received 16 units of insulin (10 units of basal and 6 units of bolus). * Today's BSGs are 100-139. * Patient's Lasix increased to 80 mg IV q8 hours. PO intake reduced. * Reduce last to 8 units if BSG < 140 mg/dL. * Continue Novolog as BSGs steady. 07/09: * BSGs yesterday were [phone] mg/dL. Patient received 32 units of insulin (20 units of basal and 12 units of bolus). * Fasting today is 102 mg/dL. * Decrease Lantus to 15 units nightly. * Continue Novolog as BSGs relatively stable. BACKGROUND * 53 year old admitted with DAHLIA and CHF. Pharmacy consulted for glycemic management. Patient's blood sugars low this morning, provider held AM basal insulin. BSGs continue to be low at lunch time, despite held AM basal and only 2 units novolog given at breakfast * Patient received total of 67 units yesterday, of which 54 units were basal. Regimen heavily basal weighted, possibly contributing to lower BSGs today - plan to decrease basal dose by ~50-60% and redose tonight. Removed CR for today for now until BSGs start to recover PLAN FOR INPATIENT GLYCEMIC CONTROL: * Basal insulin * Lantus 12 units SC HS * Bolus insulin * NovoLog per scale ACHS or Q6hrs while NPO * Goal Range: Low 110 mg/dL - High 140 mg/dL * Correction Factor: 25 mg/dL/unit * Nutritional / Prandial insulin per carb ratio of 1 unit per 6 grams CHO consumed
--- NOTE | 2023-07-22 18:45 | Hospitalist Progress Note ---
Date of Service July 22, 2023 Assessment & Plan (1) Acute on chronic heart failure with preserved ejection fraction (HFpEF): (2) CKD (chronic kidney disease) stage 3, GFR 30-59 ml/min: (3) Acute on chronic renal insufficiency: Plan: (1) Acute on chronic heart failure with preserved ejection fraction (HFpEF): Plan: (1) CHF (congestive heart failure): (2) Hypertension: (3) Diabetic ulcer of foot associated with type 2 diabetes mellitus, with bone involvement without evidence of necrosis: (4) Lymphedema of both lower extremities: (5) Anemia: (6) UTI (urinary tract infection): (7) Type 2 diabetes mellitus, with long-term current use of insulin: (8) Diabetic peripheral neuropathy associated with type 2 diabetes mellitus: (9) Obesity: Plan: per admitting service notes with addendum: Ms. Rand is a 53-year-old male with PMH of insulin-dependent T2DM, diabetic neuropathy, diabetic nephropathy with CKD stage III, HTN, HLD, HFpEF, morbid obesity, necrotizing fasciitis, bilateral lower extremity lymphedema, TRACI, left chronic heel ulcer presented to the ED for generalized swelling/increased edema of BLE and not feeling well, and admitted for acute heart failure with preserved EF. Patient responded robustly to IV diuersis with up to 8L UOP in a day; however course complicated by nausea, vomiting, and diarrhea. There was no clear eitology of these gastric concerns, but potentially related to daptomycin which was initiated for a presumptive cellulitis of RLE. Discontinuation of daptomycin, as well as less strict glucose control, was noted by improved GI symptoms. During this time, lasix was held intermittently and dosing readjusted. As well as additional of ACEi for blood pressure control. Since 07/10 there has been a precipitous increase in Cr and decrease in urine output. Heaton remains in place now for further IOs of acute on chronic kidney injury. #Acute kidney injury over CKD stage III *improving #Metabolic alkalosis, compensation for YVROSE/OHS - Admitting creatinine of 1.81, baseline creatinine around 1.4. -Nephrology on consult -Renal US duplex iso increase Cr s/p ACEi :Technically nondiagnostic evaluation for renal artery stenosis given suboptimal penetration. No elevated velocities within visualized portions of the renal arteries although renal arteries partially obscured. Respiratory status stable leg edema improving Creatinine increased to 2.6 Furosemide drip ordered Creatinine decreased to 2.3--> 1.5--> today 1.7 continue Lasix drip per Nephro Potassium supplement #Nausea, Diarrhea #History of IBS Attributed to IV antibiotics for leg cellulitis, discontinued Resolved #Hypertension Continue Coreg 12.5 mg p.o. twice daily, hydralazine 50 mg p.o. 3 times daily Seems to be improving Monitor #Acute exacerbation of heart failure with preserved ejection fraction #Acute Right heart failure Upon chart review, patient's weight of 146 kg on 05/08/2023, presenting weight at 176.6 kg on 07/04/2023. Admitting CXR with pulmonary vascular congestion, at admission : 2-3+ pitting edema BLE along with her chronic lymphedema and UE pitting edema noted. Patient's home Lasix was increased from 20mg to 40 mg the day prior to arrival at the SNF. Troponin flat trended in 70s. Patient with no chest pain. Admitting EKG with no acute ST or T changes. Echo with EF of 55 to 60%, grade 1 diastolic dysfunction, no LV segmental wall motion abnormalities, flattened septum consistent with RV pressure/volume overload. Metoprolol on hold due to bradycardia. Hydralazine dc'd / gabapentin held as it can worsen edema however, blood pressure difficult to manage at this time t herefore hydralazine resumed Still has lower extremity edema, seems to be improving no signs of infection at this time Currently on Lasix drip #Acute UTI: Patient started on Rocephin 07/04,klebsiella UTI, completed 7 days of CTX #LLE Cellulitis #Chronic lymphedema - discontinued daptomycin given nausea/no clear signs of infection/improvement o f area. chronic changes appreciated, received 7 days ctx and 5 days dapto. - will hold off on further antibiotics at this point, wound care consulted, monitor closely Other chronic medical conditions: Iron deficiency anemia: Baseline hemoglobin around 10, stable, continue home iron supplementation Insulin-dependent T2DM: Complicated with nephropathy and neuropathy. A1c of 10.1% on 04/28/2023. Sliding scale insulin while in hospital. Was taken off of Ozempic about 1 month ago as it was assumed that this was causing nausea for the patient. 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 Diabetic neuropathy: hold home gabapentin Morbid obesity: Encourage diet/lifestyle modification with exercise DVT prophylaxis: Heparin subcu Full code Disposition: PT/[id number] to assist with DC plan (behold until 07/31) Admission and Anticipated Discharge Date Admission Date: July 04, 2023 Subjective Follow-up for CHF, etc. seen resting in bed, comfortable states she had some mild dyspnea earlier but improving already No chest pain, dizziness, nausea or vomiting Diarrhea resolved No leg pain No other new symptoms Review of Systems Review of Systems: all noted and negative except for above Physical Exam Physical Exam: General- oriented x 3, not in distress, speaks in sentences with no effort or accessory muscle use Eyes- anicteric Neck- no JVD Lungs- clear breath sounds bilaterally Heart- normal rate, regular rhythm; no murmurs Abdomen- normal bowel sounds, nondistended, soft, nontender Extremities- grade 1 lower ext edema- mild erythema, no calf tenderness Neuro- alert, oriented x 3; no gross focal neurologic deficits Skin- warm & dry Results & Data Results & Data Vital Signs (Past 12 Hours) Vital Signs Temp Pulse Pulse Resp BP Pulse Ox O2 Del Method 07/22/23 16:05 36.3 C L 70 16 160/81 H 97 Nasal Cannula 07/22/23 14:04 65 07/22/23 11:50 36.4 C L 63 16 150/82 H 95 Nasal Cannula 07/22/23 08:00 92 Nasal Cannula 07/22/23 08:00 36.9 C 67 14 129/78 89 L Nasal Cannula 07/22/23 07:32 Nasal Cannula O2 Flow Rate 07/22/23 16:05 3 07/22/23 14:04 07/22/23 11:50 3 07/22/23 08:00 07/22/23 08:00 4 07/22/23 07:32 3 all noted and reviewed including below (2) CKD (chronic kidney disease) stage 3, GFR 30-59 ml/min Chronic kidney disease stage 3 subtype: unspecified whether 3a or 3b Qualified Code(s): N18.30 - Chronic kidney disease, stage 3 unspecified
[2023-07-22] MEDS: MELATONIN 3 MG TAB PO SCH (21:42)
[2023-07-22] MEDS: LANTUS PER UNIT CHARGE SQ SCH (21:43)
[2023-07-23] MEDS: FUROSEMIDE 100 MG in 0.9 % SODIUM CHLORIDE 90 ML IV SCH (04:22)
[2023-07-23] MEDS: HEPARIN SOD 5,000 UNIT/0.5 ML VIAL SQ SCH ×3 (04:22→21:34)
[2023-07-23 05:05] LABS: BUN Creatinine Ratio 22.5 (10-20); Creatinine Clr Calc Pharmacy 53.7 ml/min; Est GFR (African American) 35.9 ml/min; Est GFR (Non-African American) 30.9 ml/min
[2023-07-23 07:13] LABS: Abnormal Protein Band 1 DNR mg/24 h (NONE DETECTED); Abnormal Protein Band 2 DNR mg/24 h (NONE DETECTED); Abnormal Protein Band 3 DNR mg/24 h (NONE DETECTED); Creatinine, 24 hr Urine 1.39 g/24 h (0.50-2.15); Protein, Urine 24 Hour 2982 mg/24 h (<150); Ur Protein/Creatinine Rat mg/g 2152 mg/g creat (<150); Urine Protein/Creatinine Ratio 2.152 (<0.150)
[2023-07-23] MEDS: PANTOprazole 40 MG in SYRINGE 0 ML IV SCH (07:56)
[2023-07-23] MEDS: hydrALAZINE TAB 50 MG TAB PO SCH ×3 (07:56→21:33)
[2023-07-23] MEDS: LOPERAMIDE HCL 2 MG CAP PO PRN (07:56)
[2023-07-23] MEDS: CYANOCOBALAMIN (B-12) 500 MCG TABLET PO SCH (07:57)
[2023-07-23] MEDS: carvediloL 12.5 MG TAB PO SCH ×2 (07:57→17:57)
[2023-07-23] MEDS: FLUoxetine HCL 20 MG CAP PO SCH (07:57)
[2023-07-23] MEDS: POTASSIUM CHLORIDE CRTAB 20 MEQ TABCR PO SCH ×2 (07:57→21:33)
[2023-07-23] MEDS: ASPIRIN 81 MG ECTAB PO SCH (07:57)
[2023-07-23] MEDS: INSULIN ASPART PER UNIT CHARGE SC SCH ×4 (08:51→21:32)
--- NOTE | 2023-07-23 11:21 | Nephrology Progress Note ---
Date of Service July 23, 2023 Assessment & Plan Admission and Anticipated Discharge Date Admission Date: July 04, 2023 Subjective Assessment & Plan (1) Acute on chronic renal insufficiency: Plan: improving creatinine after recurrent/further worsening and recently oliguric stage 1 DAHLIA on CKD 3 > baseline creatinine 1.4-1.5 most recently. Creatinine h ad improved to normal w/ aggressive diuresis; then radha again in correlation w/ scaling back on diuretics. With resuming diuretics creatinine has again improved. ddx includes ischemic ATN in cardiorenal picture; cannot rule out glomerular process w/ volume overload. also w/ rapidly progressive ckd as below; now stage 3 (prior to this admission) after no CKD as recently as August 2022. (2) CKD (chronic kidney disease) stage 3, GFR 30-59 ml/min: Plan: She has rapidly progressive CKD >> prior to March 2023 creatinine was 0.8 (last lab check was February 2023); then in March during an admission she had DAHLIA w/ labile renal function ever since, 1.4-1.5 range. 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 albumin has dropped from 3.2 (a baseline) at admission to 2.3. unremarkable renal/adrenal imaging 07/10. -glomerular dz w/u pending > ESR, antihistone Ab, complement, ANCA, anti dsDNA, anti GBM, hepatitis panel, serum free light chains and immunofixation; cannot r/o need for renal bx; anti GBM Ab and PLA2R both ordered at later date and verified w/ lab; some of these labs may take > 1 wk to finalize -24 hr urine prot electrophor/IF in process of collection -Will need neph f/u after d/c (3) CHF (congestive heart failure): 1.5L FR Daily bmp continue hydralazine at 50 mg tid. coreg 12.5 bid Night Bipap both Aldactone and lisinopril now on hold Lasix gtt restarted on 07/16 But will stop for now given consistent rise in creat now for 4 days. Creat radha x 5 days, then plateau'd x 48 h, then improved and now worsening again. very confusing Picture with Diuresis and renal function !!! Bicarb is Somewhat high but ABG and VBG shows Co2 retention and Compensated picture. No need to add diamox. She really needs night time Bipap if possible. Subjective No new issues. 4050 ml urine yesterday. remains on 3 L of oxygen. Denies nausea vomiting. Some OOB activity. Now creat worsening again. Review of Systems Review of Systems: All systems reviewed & are unremarkable except as noted in Subjective Physical Exam Constitutional: well developed, well nourished, + morbidly obese, + physical limitations (Sitting up on the side of the bed on 02NC) and cooperative; no acute distress Eyes: EOM intact bilaterally ENMT: Ears: no external ear abnormality Nose: no external nose abnormality Mouth: + dry oral mucous membranes Neck: no nuchal rigidity Respiratory: normal respiratory effort Auscultation: + diminished lung sounds Cardiovascular: Rate/Rhythm: regular rate (HS distant) and regular rhythm Extremities: + edema (3+ BLE distally and 1+ proximally) Gastrointestinal (Abdomen): Inspection/Auscultation: normal bowel sounds Percussion/Palpation: abdomen soft; abdomen nontender Musculoskeletal: Extremities: + abnormal strength Skin: no rashes, warm and dry Psychiatric: Orientation: alert and oriented x 3 Results & Data Vital Signs (Past 12 Hours) Vital Signs Temp Pulse Pulse Resp BP BP Pulse Ox 07/23/23 08:00 36.6 C 69 14 160/73 H 97 07/23/23 06:02 64 07/23/23 03:00 36.8 C 68 18 166/71 H 97 07/23/23 01:02 O2 Del Method O2 Flow Rate 07/23/23 08:00 Nasal Cannula 3 07/23/23 06:02 07/23/23 03:00 Nasal Cannula 2 07/23/23 01:02 Nasal Cannula 2
--- NOTE | 2023-07-23 16:32 | Hospitalist Progress Note ---
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 Rand is a 53-year-old male with PMH of insulin-dependent T2DM, diabetic neuropathy, diabetic nephropathy with CKD stage III, HTN, HLD, HFpEF, morbid obesity, necrotizing fasciitis, bilateral lower extremity lymphedema, TRACI, left chronic heel ulcer presented to the ED for generalized swelling/increased edema of BLE and not feeling well, and admitted for acute heart failure with preserved EF. Patient responded robustly to IV diuersis with up to 8L UOP in a day; however course complicated by nausea, vomiting, and diarrhea. There was no clear eitology of these gastric concerns, but potentially related to daptomycin which was initiated for a presumptive cellulitis of RLE. Discontinuation of daptomycin, as well as less strict glucose control, was noted by improved GI symptoms. During this time, lasix was held intermittently and dosing readjusted. As well as additional of ACEi for blood pressure control. Since 07/10 there has been a precipitous increase in Cr and decrease in urine output. Heaton remains in place now for further IOs of acute on chronic kidney injury. #Acute kidney injury over CKD stage III *improving #Metabolic alkalosis, compensation for YVROSE/OHS - Admitting creatinine of 1.81, baseline creatinine around 1.4. -Nephrology on consult -Renal US duplex iso increase Cr s/p ACEi :Technically nondiagnostic evaluation for renal artery stenosis given suboptimal penetration. No elevated velocities within visualized portions of the renal arteries although renal arteries partially obscured. Respiratory status stable leg edema improving Creatinine increased to 2.6 Furosemide drip ordered Creatinine improving on Lasix drip Diuretics as per pathology #Nausea, Diarrhea #History of IBS Attributed to IV antibiotics for leg cellulitis, discontinued Resolved #Hypertension Continue Coreg 12.5 mg p.o. twice daily, hydralazine 50 mg p.o. 3 times daily Seems to be improving Monitor #Acute exacerbation of heart failure with preserved ejection fraction #Acute Right heart failure Upon chart review, patient's weight of 146 kg on 05/08/2023, presenting weight at 176.6 kg on 07/04/2023. Admitting CXR with pulmonary vascular congestion, at admission : 2-3+ pitting edema BLE along with her chronic lymphedema and UE pitting edema noted. Patient's home Lasix was increased from 20mg to 40 mg the day prior to arrival at the [facility]. Troponin flat trended in 70s. Patient with no chest pain. Admitting EKG with no acute ST or T changes. Echo with EF of 55 to 60%, grade 1 diastolic dysfunction, no LV segmental wall motion abnormalities, flattened septum consistent with RV pressure/volume overload. Metoprolol on hold due to bradycardia. Hydralazine dc'd / gabapentin held as it can worsen edema however, blood pressure difficult to manage at this time therefore hydralazine resumed Weight decreased down to 140 kg. We will likely discharge on Lasix 40 mg twice daily #Acute UTI: Patient started on Rocephin 07/04,klebsiella UTI, completed 7 days of CTX #LLE Cellulitis #Chronic lymphedema - discontinued daptomycin given nausea/no clear signs of infection/improvement of area. chronic changes appreciated, received 7 days ctx and 5 days dapto. - will hold off on further antibiotics at this point, wound care consulted, monitor closely Other chronic medical conditions: Iron deficiency anemia: Baseline hemoglobin around 10, stable, continue home iro n supplementation Insulin-dependent T2DM: Complicated with nephropathy and neuropathy. A1c of 10.1% on 04/28/2023. Sliding scale insulin while in hospital. Was taken off of Ozempic about 1 month ago as it was assumed that this was causing nausea for the patient. para educator consult for uncontrolled diabetes. Diabetic neuropathy: hold home gabapentin Morbid obesity: Encourage diet/lifestyle modification with exercise DVT prophylaxis: Heparin subcu Full code Disposition: PT/OT, CM to assist with DC plan (behold until 12/14) Time spent evaluating patient, direct bedside care, chart review, placing orders, interpretation of diagnostic studies, discussion with consultants, patient, and family members, as well as other required patient management activities is 60 minutes. Please note the above document was generated using voice recognition software. It may contain grammatical, syntax or spelling errors. Any formal questions or concerns about the content, text or information contained within the body of this dictation should be directly addressed to the provider for clarification Admission and Anticipated Discharge Date Admission Date: July 04, 2023 Subjective Patient seen and examined at bedside. She reports that she is feeling much better. She is at 2 L of oxygen by nasal cannula. Urine output reassuring. Review of Systems Review of Systems: All systems reviewed & are unremarkable except as noted in Subjective Physical Exam Physical Exam: General- oriented x 3, not in distress, speaks in sentences with no effort or accessory muscle use Eyes- anicteric Neck- no JVD Lungs- clear breath sounds bilaterally Heart- normal rate, regular rhythm; no murmurs Abdomen- normal bowel sounds, nondistended, soft, nontender Extremities- grade 1 lower ext edema- mild erythema, no calf tenderness Neuro- alert, oriented x 3; no gross focal neurologic deficits Skin- warm & dry Results & Data Results & Data Vital Signs (Past 12 Hours) Vital Signs Temp Pulse Pulse Resp BP Pulse Ox O2 Del Method 07/23/23 15:29 36.6 C 68 16 149/79 H 96 Nasal Cannula 07/23/23 11:49 36.5 C 69 16 153/80 H 97 Nasal Cannula 07/23/23 08:00 36.6 C 69 14 160/73 H 97 Nasal Cannula 07/23/23 07:45 Nasal Cannula 07/23/23 06:02 64 O2 Flow Rate 07/23/23 15:29 2 07/23/23 11:49 2 07/23/23 08:00 2 07/23/23 07:45 2 07/23/23 06:02 Laboratory Results Laboratory Results WBC 5.36 K/ul (4.8-10.8) 07/16/23 05:58 RBC 3.59 M/uL (4.20-5.40) L 07/16/23 05:58 Hgb 9.9 g/dl (12.0-16.0) L 07/16/23 05:58 Hct 31.8 % (37.0-47.0) L 07/16/23 05:58 MCV 88.6 fL (80.0-100.0) 07/16/23 05:58 MCH 27.6 pg (25.0-34.0) 07/16/23 05:58 MCHC 31.1 g/dL (32.0-36.0) L 07/16/23 05:58 RDW Std Deviation 48.5 fL (36.4-46.3) H 07/16/23 05:58 RDW Coeff of Mya 15.2 % (11.5-14.5) H 07/16/23 05:58 Plt Count 145 K/uL (130-400) 07/16/23 05:58 MPV 12.4 fL (9.4-12.4) 07/16/23 05:58 Immature Gran % (Auto) 0.5 % 07/04/23 09:16 Neut % (Auto) 71.5 % 07/04/23 09:16 Lymph % (Auto) 18.2 % 07/04/23 09:16 [place] % (Auto) 8.0 % 07/04/23 09:16 Eos % (Auto) 1.2 % 07/04/23 09:16 Baso % (Auto) 0.6 % 07/04/23 09:16 Neut # (Auto) 5.57 K/uL (1.40-6.50) 07/04/23 09:16 Lymph # (Auto) 1.42 K/uL (1.20-3.40) 07/04/23 09:16 [place] # (Auto) 0.62 K/uL (0.11-0.59) H 07/04/23 09:16 Eos # (Auto) 0.09 K/uL (0.00-0.50) 07/04/23 09:16 Baso # (Auto) 0.05 K/uL (0.00-0.20) 07/04/23 09:16 Immature Gran # (Auto) 0.04 K/uL (0.01-0.20) 07/04/23 09:16 ESR 48 mm/hr (0-30) H 07/16/23 05:58 ABG pH 7.54 (7.35-7.45) H* 07/14/23 21:35 ABG pCO2 52 mmHg (35-46) H 07/14/23 21:35 ABG pO2 92 mmHg (80-95) 07/14/23 21:35 ABG HCO3 45 mmol/L (19-24) H 07/14/23 21:35 ABG O2 Saturation 98.8 % (90-95) H 07/14/23 21:35 ABG Base Excess 19.0 mEq/L (-9-1.8) H 07/14/23 21:35 Arvind Test Pos (Pos) 07/14/23 21:35 VBG pH 7.45 (7.36-7.41) H 07/10/23 08:17 VBG pCO2 70 mmHg (38-50) H 07/10/23 08:17 VBG pO2 50 mmHg 07/10/23 08:17 VBG HCO3 49 mmol/L 07/10/23 08:17 VBG O2 Saturation 84.0 % 07/10/23 08:17 VBG Base Excess 21.2 mEq/L 07/10/23 08:17 Oxygen Given ROOM AIR 07/14/23 21:35 Sodium 142 mmol/L (136-145) 07/23/23 04:19 Potassium 4.0 mmol/L (3.5-5.1) 07/23/23 04:19 Chloride 93 mmol/L (98-107) L 07/23/23 04:19 Carbon Dioxide 42 mmol/L (21-32) H* 07/23/23 04:19 Anion Gap 7 (3-11) 07/23/23 04:19 BUN 41 mg/dl (6-23) H 07/23/23 04:19 Creatinine 1.82 mg/dl (0.6-1.2) H 07/23/23 04:19 Est Cr Clr Drug Dosing 53.7 ml/min 07/23/23 04:19 Est GFR ( Amer) 35.9 ml/min 07/23/23 04:19 Est GFR (Non-Af Amer) 30.9 ml/min 07/23/23 04:19 BUN/Creatinine Ratio 22.5 (10-20) H 07/23/23 04:19 Glucose 109 mg/dl (70-99(Fasting)) H 07/23/23 04:19 POC Glucose 157 mg/dl (70-99) H 07/23/23 11:58 Calcium 9.0 mg/dl (8.6-10.3) 07/23/23 04:19 Phosphorus 3.6 mg/dl (2.5-4.9) 07/16/23 05:58 Magnesium 1.4 mg/dl (1.7-2.4) L 07/21/23 04:16 Total Bilirubin 0.4 mg/dl (0.2-1.0) 07/10/23 14:41 Direct Bilirubin 0.1 mg/dl (0-0.2) 07/10/23 14:41 AST 11 U/L (13-39) L 07/10/23 14:41 ALT 8 U/L (7-52) 07/10/23 14:41 Alkaline Phosphatase 54 U/L (34-104) 07/10/23 14:41 Troponin I High Sens 74.0 pg/ml (0-14) H* 07/04/23 22:56 B-Natriuretic Peptide 429 pg/ml (0-100) H 07/04/23 09:16 Total Protein 4.8 gm/dl (6.0-8.3) L 07/10/23 14:41 Albumin 2.3 gm/dl (3.4-5.0) L 07/10/23 14:41 Lipase 10 U/L (11-82) L 07/12/23 08:40 Urine Color Dark Yellow 07/15/23 Unknown Urine Appearance Turbid (Clear) A 07/15/23 Unknown Urine pH 5.0 (4.5-7.5) 07/15/23 Unknown Ur Specific [place] 1.024 (1.000-1.030) 07/15/23 Unknown Urine Protein 4+ (Negative) H 07/15/23 Unknown Urine Glucose (UA) Negative (Negative) 07/15/23 Unknown Urine Ketones Trace (Negative) H 07/15/23 Unknown Urine Blood Negative (Negative) 07/15/23 Unknown Urine Nitrite Negative (Negative) 07/15/23 Unknown Urine Bilirubin 1+ (Negative) H 07/15/23 Unknown Urine Urobilinogen Negative (Negative) 07/15/23 Unknown Ur Leukocyte Esterase 3+ (Negative) H 07/15/23 Unknown Urine WBC (Auto) >30 /hpf (0-5) H 07/15/23 Unknown Urine RBC (Auto) 0-4 /hpf (0-4) 07/15/23 Unknown U Hyaline Cast (Auto) 1-5 /lpf (0-5) 07/15/23 Unknown U Epithel Cells (Auto) >30 /lpf (0-5) H 07/15/23 Unknown Urine Bacteria (Auto) 1+ (Negative) H 07/15/23 Unknown Urine Yeast Present (None Prsent) A 07/15/23 Unknown Ur Random Creatinine 218.4 mg/dl 07/15/23 Unknown U Random Total Protein 661.9 mg/dl (0-11.9) H 07/15/23 Unknown Ur Random Urea Nitrogn 329 mg/dL 07/15/23 Unknown Ur Creatinine 24 Hour 1.39 g/24 h (0.50-2.15) 07/20/23 02:06 Ur Total Protein 24 Hr 2982 mg/24 h (<150) H 07/20/23 02:06 Protein/Creatinin Ratio 3.0 (0-0.2) H 07/15/23 Unknown Protein/Creat Ratio 24h 2.152 (<0.150) H 07/20/23 02:06 Urine Sodium 28 mmol/L 07/15/23 Unknown Urine Potassium 47.0 mmol/L 07/15/23 Unknown Urine Chloride 24 mmol/L 07/15/23 Unknown Urine Albumin (%) 78 % 07/20/23 02:06 U Fgzvy-9-Tyrqhlde (%) 5 % 07/20/23 02:06 U Jumez-8-Vsjcmvjk (%) 3 % 07/20/23 02:06 U Beta Globulin (%) 8 % 07/20/23 02:06 U Gamma Globulin (%) 6 % 07/20/23 02:06 U Abnormal Prot Band 1 DNR mg/24 h (NONE DETECTED) 07/20/23 02:06 U Abnormal Prot Band 2 DNR mg/24 h (NONE DETECTED) 07/20/23 02:06 U Abnormal Prot Band 3 DNR mg/24 h (NONE DETECTED) 07/20/23 02:06 Urine PEP Interpret SEE NOTE 07/20/23 02:06 Stl C. diff Tox B Gene Negative Cdiff Gene (Neg) 07/10/23 06:35 Serum Immunofixation SEE NOTE 07/16/23 05:58 Urine Immunofixation SEE NOTE 07/20/23 02:06 p-ANCA 1:80 Titer (<1:20) H 07/16/23 05:58 ANCA P-ANCA POS (Negative) A 07/16/23 05:58 Histone Ab, Qual <1.0 U (<1.0) 07/16/23 05:58 Complement C3 117 mg/dL (83-193) 07/16/23 05:58 Complement C4 18 mg/dL (15-57) 07/16/23 05:58 Free [place] LC, Quant 94.2 mg/L (3.3-19.4) H 07/16/23 05:58 Free Lambda LC, Quant 46.3 mg/L (5.7-26.3) H 07/16/23 05:58 Free [place]/Lambda Ratio 2.03 (0.26-1.65) H 07/16/23 05:58 SARS-CoV-2 (PCR) NEGATIVE (Negative) 07/04/23 11:40 Hepatitis B Ab, Qual NON-REACTIVE (NON-REACTIVE) 07/16/23 05:58 Hep Bs Antigen NON-REACTIVE (NON-REACTIVE) 07/16/23 05:58 Hep Bs Ag Confirmation TNP 07/16/23 05:58 Hepatitis C Ab (EIA) NON-REACTIVE (NON-REACTIVE) 07/16/23 05:58 Influenza Type A (PCR) Negative (Neg) 07/04/23 11:40 Influenza Type B (PCR) Negative (Neg) 07/04/23 11:40 RSV (RT-PCR) Negative (Neg) 07/04/23 11:40 Anti-DNase B (Strep) 195 U/mL (<301) 07/16/23 05:58 Miscellaneous Test REPORT 07/16/23 05:58 Impressions Chest X-Ray 07/04/23 08:25 XR chest 1V portable HISTORY: shortness of breath COMPARISON: Chest 04/28/2023. FINDINGS: There are low lung volumes. The heart is mildly enlarged. There is progressive perihilar interstitial/vascular thickening consistent with mild congestive change. No new focal lung consolidations to suggest a pneumonia. Small linear scarlike density within the left upper lobe persists. No acute fractures identified. No pneumothorax. No pleural effusions. IMPRESSION: Cardiomegaly and mild central pulmonary vascular congestion without overt edema. This has slightly progressed in the interval. ACT 112: Negative or not required by law. Electronically signed by: Tee Huerta M.D. 07/04/2023 9:52 AM Abdomen/Pelvis CT 07/10/23 02:19 CT abd pelvis wo con CLINICAL HISTORY: abd pain TECHNIQUE: Helical axial images of the abdomen and pelvis were obtained. Automated dose lowering techniques and/or adjustment according to patient size were utilized for this exam. This exam was performed without intravenous contrast. COMPARISON: Comparison is made to CT abdomen pelvis 04/09/2023 FINDINGS: Lower chest: Small bilateral pleural effusions with underlying atelectasis. Liver: Unremarkable. No focal lesions are seen. Gallbladder and biliary tree: Patient is status post cholecystectomy. No intra- or extrahepatic biliary ductal dilation. Pancreas: Unremarkable, no focal lesions. Spleen: Splenomegaly is noted, the spleen measures 13.5 mm. Adrenals: Unremarkable. Kidneys and ureters: Unremarkable. Bladder: Heaton catheter is seen. Reproductive organs: Unremarkable. Bowel: Diverticulosis is seen without evidence of diverticulitis. The appendix is normal.. Lymph nodes Retroperitoneal: Unremarkable. Pelvic: Prominent subcentimeter inguinal nodes are noted. Mesenteric: Unremarkable. Peritoneum: Trace pelvic fluid fluid is seen, likely physiologic. Vessels: Unremarkable. Abdominal wall: Unremarkable. Bones: Degenerative changes in the visualized spine. IMPRESSION: 1. No acute abnormalities. 2. Diverticulosis without diverticulitis. 3. Additional findings as above. ACT 112: Negative or not required by law. Electronically signed by: Loyd Arambula M.D. 07/10/2023 11:[address] 07/10/23 02:19 CT head/brain wo con CLINICAL HISTORY: reynolds Technique: Contiguous axial CT images of the head were acquired from the base of the skull to the vertex without intravenous contrast administration. Images were viewed in brain, subdural and bone windows. Automated dose lowering techniques and/or adjustment according to patient size were utilized for this exam. Comparison: None available at the time of this dictation. Findings: The ventricles, basal cisterns, and cerebral sulci are normal. There is no acute intracranial hemorrhage or evidence of acute territorial infarction. Neither mass effect, shift of the midline structures, nor abnormal extra-axial fluid collections are shown. Imaged portions of the paranasal sinuses and mastoid air cells are clear. The orbits appear normal. There are no acute fractures of the calvaria or scalp swelling. Impression: No acute intracranial hemorrhage, no evidence of acute territorial infarction or other acute intracranial disease process. ACT 112: Negative or not required by law. Electronically signed by: Loyd Arambula M.D. 07/10/2023 11:22 AM KUB X-Ray 07/10/23 08:54 XR KUB/Abdomen 1 view CLINICAL HISTORY: diffuse abd pain TECHNIQUE: 1 view of the abdomen was obtained. Comparison: Comparison is made to abdomen radiographs 02/28/2022 FINDINGS: Cholecystomy clips are seen in the right upper quadrant. Degenerative changes are seen in the visualized skeleton. The bowel gas pattern is nonobstructive. Small stool burden is seen. IMPRESSION: Nonobstructive bowel gas pattern. ACT 112: Negative or not required by law. Electronically signed by: Loyd Arambula M.D. 07/10/2023 9:58 AM Renal Artery Duplex 07/15/23 13:38 US duplex renal artery CLINICAL HISTORY: renal artery stenosis? COMPARISON STUDY: CT of the abdomen and pelvis July 10, 2023. TECHNIQUE: Color and duplex Doppler abdominal aorta and renal arteries was performed. FINDINGS: The right kidney measures 13.1 cm in maximal dimension and the left measures 13.5 cm. There is no hydronephrosis. No renal calculi are identified by sonography. The proximal right renal artery was partially obscured due to suboptimal penetration. No elevated velocities within the right renal artery were noted. Left renal artery was also partially obscured. No elevated velocities were identified within visualized portions. Bilateral renal veins were patent. Segmental waveforms within the kidneys were grossly normal although left renal segmental vessels suboptimally assessed. Peak systolic velocity within the abdominal aorta was 149 cm/s. IMPRESSION: Technically nondiagnostic evaluation for renal artery stenosis given suboptimal penetration. No elevated velocities within visualized portions of the renal arteries although renal arteries partially obscured. ACT 112: Negative or not required by law. Electronically signed by: oRberto Knox M.D. 07/16/2023 6:55 AM (2) CKD (chronic kidney disease) stage 3, GFR 30-59 ml/min Chronic kidney disease stage 3 subtype: unspecified whether 3a or 3b Qualified Code(s): N18.30 - Chronic kidney disease, stage 3 unspecified
[2023-07-23] MEDS: LANTUS PER UNIT CHARGE SQ SCH (21:32)
[2023-07-23] MEDS: MELATONIN 3 MG TAB PO SCH (21:33)
[2023-07-23] MEDS: ACETAMINOPHEN 325 MG TAB PO PRN (21:33)
[2023-07-23] MEDS: PANTOprazole 40 MG TAB PO SCH (21:34)
[2023-07-24 05:21] LABS: Basophils # (auto) 0.03 K/uL (0.00-0.20); Basophils % (auto) 0.6 %; Eosinophils # (auto) 0.24 K/uL (0.00-0.50); Eosinophils % (auto) 4.5 %; Hematocrit (blood only) 30.8 % (37.0-47.0); Hemoglobin 9.5 g/dl (12.0-16.0); Immature Granulocytes # (auto) 0.02 K/uL (0.01-0.20); Immature Granulocytes % (auto) 0.4 %; Lymphocytes # (auto) 1.52 K/uL (1.20-3.40); Lymphocytes % (auto) 28.6 %; Mean Corpuscular Hemoglobin 27.8 pg (25.0-34.0); Mean Corpuscular Hgb Conc 30.8 g/dL (32.0-36.0); Mean Corpuscular Volume 90.1 fL (80.0-100.0); Mean Platelet Volume 12.1 fL (9.4-12.4); Monocytes # (auto) 0.52 K/uL (0.11-0.59); Monocytes % (auto) 9.8 %; Neutrophils # (auto) 2.98 K/uL (1.40-6.50); Neutrophils % (auto) 56.1 %; Platelet Count 180 K/uL (130-400); RDW Coefficient of Variation 15.4 % (11.5-14.5); RDW Standard Deviation 50.9 fL (36.4-46.3); Red Blood Count 3.42 M/uL (4.20-5.40); White Blood Count 5.31 K/ul (4.8-10.8)
[2023-07-24] MEDS: HEPARIN SOD 5,000 UNIT/0.5 ML VIAL SQ SCH ×3 (05:33→20:52)
[2023-07-24 05:40] LABS: BUN Creatinine Ratio 21.6 (10-20); Creatinine Clr Calc Pharmacy 55.2 ml/min; Est GFR (African American) 37.3 ml/min; Est GFR (Non-African American) 32.2 ml/min; Potassium 3.9 mmol/L (3.5-5.1)
[2023-07-24] MEDS: ONDANSETRON INJ 2 MG/ML 2 ML VIAL IV PRN (08:17)
[2023-07-24] MEDS: ACETAMINOPHEN 325 MG TAB PO PRN ×2 (08:18→19:51)
[2023-07-24] MEDS: INSULIN ASPART PER UNIT CHARGE SC SCH ×4 (08:35→20:12)
--- NOTE | 2023-07-24 10:30 | Nephrology Progress Note ---
Date of Service July 24, 2023 Assessment & Plan Admission and Anticipated Discharge Date Admission Date: July 04, 2023 Subjective Assessment & Plan (1) Acute on chronic renal insufficiency: Plan: improving creatinine after recurrent/further worsening and recently oliguric stage 1 DAHLIA on CKD 3 > baseline creatinine 1.4-1.5 most recently. Creatinine h ad improved to normal w/ aggressive diuresis; then radha again in correlation w/ scaling back on diuretics. With resuming diuretics creatinine has again improved. ddx includes ischemic ATN in cardiorenal picture; cannot rule out glomerular process w/ volume overload. also w/ rapidly progressive ckd as below; now stage 3 (prior to this admission) after no CKD as recently as August 2022. (2) CKD (chronic kidney disease) stage 3, GFR 30-59 ml/min: Plan: She has rapidly progressive CKD >> prior to March 2023 creatinine was 0.8 (last lab check was February 2023); then in March during an admission she had DAHLIA w/ labile renal function ever since, 1.4-1.5 range. 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 albumin has dropped from 3.2 (a baseline) at admission to 2.3. unremarkable renal/adrenal imaging 07/10. -glomerular dz w/u pending > ESR, antihistone Ab, complement, ANCA, anti dsDNA, anti GBM, hepatitis panel, serum free light chains and immunofixation; cannot r/o need for renal bx; anti GBM Ab and PLA2R both ordered at later date and verified w/ lab; some of these labs may take > 1 wk to finalize -24 hr urine prot electrophor/IF in process of collection -Will need neph f/u after d/c (3) CHF (congestive heart failure): 1.5L FR Daily bmp continue hydralazine at 50 mg tid. coreg 12.5 bid Night Bipap both Aldactone and lisinopril now on hold very confusing Picture with Diuresis and renal function !!! Bicarb is Somewhat high but ABG and VBG shows Co2 retention and Compensated picture. No need to add diamox. She really needs night time Bipap if possible. Discussed with Primary team and will discharge her on torsemide 60 bid + Kcl 20 bid. needs labs at least weekly for now. f/u nephrology within 1-2 week for further adjustment of diuretics. But she seems to need a lot of Diuretics while inpt for now hold Aldactone /Renny/ARB till we know better about the trend of the renal function. Once creat stable ( even at higher baseline will reintroduce these drugs) Subjective No new issues. Making urine but drops very rapidly as soon as we lower the diuretics. Remains on 3 L of oxygen. Denies nausea vomiting. Some OOB activity. Now creat worsening again. Review of Systems Review of Systems: All systems reviewed & are unremarkable except as noted in Subjective Physical Exam Constitutional: well developed, well nourished, + morbidly obese, + physical limitations (Sitting up on the side of the bed on 02NC) and cooperative; no acute distress Eyes: EOM intact bilaterally ENMT: Ears: no external ear abnormality Nose: no external nose abnormality Mouth: + dry oral mucous membranes Neck: no nuchal rigidity Respiratory: normal respiratory effort Auscultation: + diminished lung sounds Cardiovascular: Rate/Rhythm: regular rate (HS distant) and regular rhythm Extremities: + edema (3+ BLE distally and 1+ proximally) Gastrointestinal (Abdomen): Inspection/Auscultation: normal bowel sounds Percussion/Palpation: abdomen soft; abdomen nontender Musculoskeletal: Extremities: + abnormal strength Skin: no rashes, warm and dry Psychiatric: Orientation: alert and oriented x 3 Results & Data Vital Signs (Past 12 Hours) Vital Signs Temp Pulse Pulse Resp BP BP Pulse Ox 07/24/23 07:58 36.5 C 65 18 172/74 H 97 07/24/23 07:00 61 07/24/23 04:34 36.5 C 67 18 145/79 H 93 07/24/23 01:57 07/24/23 00:13 36.7 C 61 17 151/75 H 97 O2 Del Method O2 Flow Rate 07/24/23 07:58 Nasal Cannula 3 07/24/23 07:00 07/24/23 04:34 Nasal Cannula 07/24/23 01:57 Nasal Cannula 2 07/24/23 00:13 Nasal Cannula
[2023-07-24] MEDS: carvediloL 12.5 MG TAB PO SCH ×2 (10:47→17:01)
[2023-07-24] MEDS: PANTOprazole 40 MG TAB PO SCH ×2 (10:48→20:50)
[2023-07-24] MEDS: hydrALAZINE TAB 50 MG TAB PO SCH ×3 (10:48→19:51)
[2023-07-24] MEDS: POTASSIUM CHLORIDE CRTAB 20 MEQ TABCR PO SCH ×2 (10:49→20:51)
[2023-07-24] MEDS: ASPIRIN 81 MG ECTAB PO SCH (11:50)
[2023-07-24] MEDS: CYANOCOBALAMIN (B-12) 500 MCG TABLET PO SCH (11:51)
[2023-07-24] MEDS: FLUoxetine HCL 20 MG CAP PO SCH (11:51)
[2023-07-24] MEDS: PROMETHAZINE HCL 12.5 MG in SODIUM CHLORIDE 0.9% 50 ML IV PRN (12:32)
[2023-07-24] MEDS ORDERED: hydrALAZINE HCL 20 MG/ML VIAL IV STA (13:08)
--- NOTE | 2023-07-24 13:27 | Hospitalist Progress Note ---
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 Rand is a 53-year-old male with PMH of insulin-dependent T2DM, diabetic neuropathy, diabetic nephropathy with CKD stage III, HTN, HLD, HFpEF, morbid obesity, necrotizing fasciitis, bilateral lower extremity lymphedema, TRACI, left chronic heel ulcer presented to the ED for generalized swelling/increased edema of BLE and not feeling well, and admitted for acute heart failure with preserved EF. Patient responded robustly to IV diuersis with up to 8L UOP in a day; however course complicated by nausea, vomiting, and diarrhea. There was no clear eitology of these gastric concerns, but potentially related to daptomycin which was initiated for a presumptive cellulitis of RLE. Discontinuation of daptomycin, as well as less strict glucose control, was noted by improved GI symptoms. During this time, lasix was held intermittently and dosing readjusted. As well as additional of ACEi for blood pressure control. Since 07/10 there has been a precipitous increase in Cr and decrease in urine output. Heaton remains in place now for further IOs of acute on chronic kidney injury. #Acute kidney injury over CKD stage III *improving #Metabolic alkalosis, compensation for YVROSE/OHS - Admitting creatinine of 1.81, baseline creatinine around 1.4. -Patient had oligoanuric DAHLIA requiring Lasix drip. Urine output improved on Lasix drip as well as creatinine down trended and stabilized. Discussed with nephrology; placed on torsemide 60 mg twice daily along with potassium supplement #Nausea, Diarrhea #History of IBS Reports nausea and vomiting again on July 24, 2023 Will start Zyprexa 2.5 mg at bedtime for the nausea May need abdominal imaging based on symptom control #Hypertension Continue Coreg 12.5 mg p.o. twice daily, hydralazine 50 mg p.o. 3 times daily Will add nifedipine 30 mg for better blood pressure control #Acute exacerbation of heart failure with preserved ejection fraction #Acute Right heart failure Upon chart review, patient's weight of 146 kg on 05/08/2023, presenting weight at 176.6 kg on 07/04/2023. Admitting CXR with pulmonary vascular congestion, at admission : 2-3+ pitting edema BLE along with her chronic lymphedema and UE pitting edema noted. Patient's home Lasix was increased from 20mg to 40 mg the day prior to arrival at the [facility]. Troponin flat trended in 70s. Patient with no chest pain. Admitting EKG with no acute ST or T changes. Echo with EF of 55 to 60%, grade 1 diastolic dysfunction, no LV segmental wall motion abnormalities, flattened septum consistent with RV pressure/volume overload. Metoprolol on hold due to bradycardia. Hydralazine dc'd / gabapentin held as it can worsen edema however, blood pressure difficult to manage at this time therefore hydralazine resumed Weight decreased down to 137 kgs Plan to discharge on Coreg, hydralazine and nifedipine along with torsemide. #Acute UTI: Patient started on Rocephin 07/04,klebsiella UTI, completed 7 days of CTX #LLE Cellulitis #Chronic lymphedema - discontinued daptomycin given nausea/no clear signs of infection/improvement of area. chronic changes appreciated, received 7 days ctx and 5 days dapto. - will hold off on further antibiotics at this point, wound care consulted, monitor closely Other chronic medical conditions: Iron deficiency anemia: Baseline hemoglobin around 10, stable, continue home iron supplementation Insulin-dependent T2DM: Complicated with nephropathy and neuropathy. A1c of 10.1% on 04/28/2023. Sliding scale insulin while in hospital. Was taken off of Ozempic about 1 month ago as it was assumed that this was causing nausea for the patient. certified adaptive physical educator consult for uncontrolled diabetes. Diabetic neuropathy: hold home gabapentin Morbid obesity: Encourage diet/lifestyle modification with exercise DVT prophylaxis: Heparin subcu Full code Disposition: PT/OT, CM to assist with DC plan (behold until 07/31) Time spent evaluating patient, direct bedside care, chart review, placing orders, interpretation of diagnostic studies, discussion with consultants, patient, and family members, as well as other required patient management lesley razo is 60 minutes. Please note the above document was generated using voice recognition software. It may contain grammatical, syntax or spelling errors. Any formal questions or concerns about the content, text or information contained within the body of this dictation should be directly addressed to the provider for clarification Admission and Anticipated Discharge Date Admission Date: July 04, 2023 Subjective Patient seen and examined at bedside. She reports that she is feeling nauseous and had 1 episode of vomiting. Denies abdominal pain or discomfort. Review of Systems Review of Systems: All systems reviewed & are unremarkable except as noted in Subjective Physical Exam Physical Exam: General- oriented x 3, not in distress, speaks in sentences with no effort or accessory muscle use Eyes- anicteric Neck- no JVD Lungs- clear breath sounds bilaterally Heart- normal rate, regular rhythm; no murmurs Abdomen- normal bowel sounds, nondistended, soft, nontender Extremities- grade 1 lower ext edema- mild erythema, no calf tenderness Neuro- alert, oriented x 3; no gross focal neurologic deficits Skin- warm & dry Results & Data Results & Data Vital Signs (Past 12 Hours) Vital Signs Temp Pulse Pulse Resp BP BP Pulse Ox 07/24/23 11:59 36.4 C L 70 19 197/77 H 96 07/24/23 07:58 36.5 C 65 18 172/74 H 97 07/24/23 07:00 61 07/24/23 04:34 36.5 C 67 18 145/79 H 93 07/24/23 01:57 O2 Del Method O2 Flow Rate 07/24/23 11:59 Nasal Cannula 3 07/24/23 07:58 Nasal Cannula 3 07/24/23 07:00 07/24/23 04:34 Nasal Cannula 07/24/23 01:57 Nasal Cannula 2 Laboratory Results Laboratory Results WBC 5.31 K/ul (4.8-10.8) 07/24/23 04:27 RBC 3.42 M/uL (4.20-5.40) L 07/24/23 04:27 Hgb 9.5 g/dl (12.0-16.0) L 07/24/23 04:27 Hct 30.8 % (37.0-47.0) L 07/24/23 04:27 MCV 90.1 fL (80.0-100.0) 07/24/23 04:27 MCH 27.8 pg (25.0-34.0) 07/24/23 04:27 MCHC 30.8 g/dL (32.0-36.0) L 07/24/23 04:27 RDW Std Deviation 50.9 fL (36.4-46.3) H 07/24/23 04:27 RDW Coeff of Mya 15.4 % (11.5-14.5) H 07/24/23 04:27 Plt Count 180 K/uL (130-400) 07/24/23 04:27 MPV 12.1 fL (9.4-12.4) 07/24/23 04:27 Immature Gran % (Auto) 0.4 % 07/24/23 04:27 Neut % (Auto) 56.1 % 07/24/23 04:27 Lymph % (Auto) 28.6 % 07/24/23 04:27 [place] % (Auto) 9.8 % 07/24/23 04:27 Eos % (Auto) 4.5 % 07/24/23 04:27 Baso % (Auto) 0.6 % 07/24/23 04:27 Neut # (Auto) 2.98 K/uL (1.40-6.50) 07/24/23 04:27 Lymph # (Auto) 1.52 K/uL (1.20-3.40) 07/24/23 04:27 [place] # (Auto) 0.52 K/uL (0.11-0.59) 07/24/23 04:27 Eos # (Auto) 0.24 K/uL (0.00-0.50) 07/24/23 04:27 Baso # (Auto) 0.03 K/uL (0.00-0.20) 07/24/23 04:27 Immature Gran # (Auto) 0.02 K/uL (0.01-0.20) 07/24/23 04:27 ESR 48 mm/hr (0-30) H 07/16/23 05:58 ABG pH 7.54 (7.35-7.45) H* 07/14/23 21:35 ABG pCO2 52 mmHg (35-46) H 07/14/23 21:35 ABG pO2 92 mmHg (80-95) 07/14/23 21:35 ABG HCO3 45 mmol/L (19-24) H 07/14/23 21:35 ABG O2 Saturation 98.8 % (90-95) H 07/14/23 21:35 ABG Base Excess 19.0 mEq/L (-9-1.8) H 07/14/23 21:35 Arvind Test Pos (Pos) 07/14/23 21:35 VBG pH 7.45 (7.36-7.41) H 07/10/23 08:17 VBG pCO2 70 mmHg (38-50) H 07/10/23 08:17 VBG pO2 50 mmHg 07/10/23 08:17 VBG HCO3 49 mmol/L 07/10/23 08:17 VBG O2 Saturation 84.0 % 07/10/23 08:17 VBG Base Excess 21.2 mEq/L 07/10/23 08:17 Oxygen Given ROOM AIR 07/14/23 21:35 Sodium 140 mmol/L (136-145) 07/24/23 04:27 Potassium 3.9 mmol/L (3.5-5.1) 07/24/23 04:27 Chloride 93 mmol/L (98-107) L 07/24/23 04:27 Carbon Dioxide 41 mmol/L (21-32) H* 07/24/23 04:27 Anion Gap 6 (3-11) 07/24/23 04:27 BUN 38 mg/dl (6-23) H 07/24/23 04:27 Creatinine 1.76 mg/dl (0.6-1.2) H 07/24/23 04:27 Est Cr Clr Drug Dosing 55.2 ml/min 07/24/23 04:27 Est GFR ( Amer) 37.3 ml/min 07/24/23 04:27 Est GFR (Non-Af Amer) 32.2 ml/min 07/24/23 04:27 BUN/Creatinine Ratio 21.6 (10-20) H 07/24/23 04:27 Glucose 106 mg/dl (70-99(Fasting)) H 07/24/23 04:27 POC Glucose 140 mg/dl (70-99) H 07/24/23 12:12 Calcium 9.0 mg/dl (8.6-10.3) 07/24/23 04:27 Phosphorus 3.6 mg/dl (2.5-4.9) 07/16/23 05:58 Magnesium 1.4 mg/dl (1.7-2.4) L 07/21/23 04:16 Total Bilirubin 0.4 mg/dl (0.2-1.0) 07/10/23 14:41 Direct Bilirubin 0.1 mg/dl (0-0.2) 07/10/23 14:41 AST 11 U/L (13-39) L 07/10/23 14:41 ALT 8 U/L (7-52) 07/10/23 14:41 Alkaline Phosphatase 54 U/L (34-104) 07/10/23 14:41 Troponin I High Sens 74.0 pg/ml (0-14) H* 07/04/23 22:56 B-Natriuretic Peptide 429 pg/ml (0-100) H 07/04/23 09:16 Total Protein 4.8 gm/dl (6.0-8.3) L 07/10/23 14:41 Albumin 2.3 gm/dl (3.4-5.0) L 07/10/23 14:41 Lipase 10 U/L (11-82) L 07/12/23 08:40 Urine Color Dark Yellow 07/15/23 Unknown Urine Appearance Turbid (Clear) A 07/15/23 Unknown Urine pH 5.0 (4.5-7.5) 07/15/23 Unknown Ur Specific [place] 1.024 (1.000-1.030) 07/15/23 Unknown Urine Protein 4+ (Negative) H 07/15/23 Unknown Urine Glucose (UA) Negative (Negative) 07/15/23 Unknown Urine Ketones Trace (Negative) H 07/15/23 Unknown Urine Blood Negative (Negative) 07/15/23 Unknown Urine Nitrite Negative (Negative) 07/15/23 Unknown Urine Bilirubin 1+ (Negative) H 07/15/23 Unknown Urine Urobilinogen Negative (Negative) 07/15/23 Unknown Ur Leukocyte Esterase 3+ (Negative) H 07/15/23 Unknown Urine WBC (Auto) >30 /hpf (0-5) H 07/15/23 Unknown Urine RBC (Auto) 0-4 /hpf (0-4) 07/15/23 Unknown U Hyaline Cast (Auto) 1-5 /lpf (0-5) 07/15/23 Unknown U Epithel Cells (Auto) >30 /lpf (0-5) H 07/15/23 Unknown Urine Bacteria (Auto) 1+ (Negative) H 07/15/23 Unknown Urine Yeast Present (None Prsent) A 07/15/23 Unknown Ur Random Creatinine 218.4 mg/dl 07/15/23 Unknown U Random Total Protein 661.9 mg/dl (0-11.9) H 07/15/23 Unknown Ur Random Urea Nitrogn 329 mg/dL 07/15/23 Unknown Ur Creatinine 24 Hour 1.39 g/24 h (0.50-2.15) 07/20/23 02:06 Ur Total Protein 24 Hr 2982 mg/24 h (<150) H 07/20/23 02:06 Protein/Creatinin Ratio 3.0 (0-0.2) H 07/15/23 Unknown Protein/Creat Ratio 24h 2.152 (<0.150) H 07/20/23 02:06 Urine Sodium 28 mmol/L 07/15/23 Unknown Urine Potassium 47.0 mmol/L 07/15/23 Unknown Urine Chloride 24 mmol/L 07/15/23 Unknown Urine Albumin (%) 78 % 07/20/23 02:06 U Ijzwj-7-Akrsuubb (%) 5 % 07/20/23 02:06 U Fhfnp-6-Kqcplhji (%) 3 % 07/20/23 02:06 U Beta Globulin (%) 8 % 07/20/23 02:06 U Gamma Globulin (%) 6 % 07/20/23 02:06 U Abnormal Prot Band 1 DNR mg/24 h (NONE DETECTED) 07/20/23 02:06 U Abnormal Prot Band 2 DNR mg/24 h (NONE DETECTED) 07/20/23 02:06 U Abnormal Prot Band 3 DNR mg/24 h (NONE DETECTED) 07/20/23 02:06 Urine PEP Interpret SEE NOTE 07/20/23 02:06 Stl C. diff Tox B Gene Negative Cdiff Gene (Neg) 07/10/23 06:35 Serum Immunofixation SEE NOTE 07/16/23 05:58 Urine Immunofixation SEE NOTE 07/20/23 02:06 p-ANCA 1:80 Titer (<1:20) H 07/16/23 05:58 ANCA P-ANCA POS (Negative) A 07/16/23 05:58 Histone Ab, Qual <1.0 U (<1.0) 07/16/23 05:58 Complement C3 117 mg/dL (83-193) 07/16/23 05:58 Complement C4 18 mg/dL (15-57) 07/16/23 05:58 Free [place] LC, Quant 94.2 mg/L (3.3-19.4) H 07/16/23 05:58 Free [place] LC, Quant 46.3 mg/L (5.7-26.3) H 07/16/23 05:58 Free [place]/Lambda Ratio 2.03 (0.26-1.65) H 07/16/23 05:58 SARS-CoV-2 (PCR) NEGATIVE (Negative) 07/04/23 11:40 Hepatitis B Ab, Qual NON-REACTIVE (NON-REACTIVE) 07/16/23 05:58 Hep Bs Antigen NON-REACTIVE (NON-REACTIVE) 07/16/23 05:58 Hep Bs Ag Confirmation TNP 07/16/23 05:58 Hepatitis C Ab (EIA) NON-REACTIVE (NON-REACTIVE) 07/16/23 05:58 Influenza Type A (PCR) Negative (Neg) 07/04/23 11:40 Influenza Type B (PCR) Negative (Neg) 07/04/23 11:40 RSV (RT-PCR) Negative (Neg) 07/04/23 11:40 Anti-DNase B (Strep) 195 U/mL (<301) 07/16/23 05:58 Miscellaneous Test REPORT 07/16/23 05:58 Impressions Chest X-Ray 07/04/23 08:25 XR chest 1V portable HISTORY: shortness of breath COMPARISON: Chest 04/28/2023. FINDINGS: There are low lung volumes. The heart is mildly enlarged. There is progressive perihilar interstitial/vascular thickening consistent with mild congestive change. No new focal lung consolidations to suggest a pneumonia. Small linear scarlike density within the left upper lobe persists. No acute fractures identified. No pneumothorax. No pleural effusions. IMPRESSION: Cardiomegaly and mild central pulmonary vascular congestion without overt edema. This has slightly progressed in the interval. ACT 112: Negative or not required by law. Electronically signed by: Tee Huerta M.D. 07/04/2023 9:52 AM Abdomen/Pelvis CT 07/10/23 02:19 CT abd pelvis wo con CLINICAL HISTORY: abd pain TECHNIQUE: Helical axial images of the abdomen and pelvis were obtained. Automated dose lowering techniques and/or adjustment according to patient size were utilized for this exam. This exam was performed without intravenous contrast. COMPARISON: Comparison is made to CT abdomen pelvis 04/09/2023 FINDINGS: Lower chest: Small bilateral pleural effusions with underlying atelectasis. Liver: Unremarkable. No focal lesions are seen. Gallbladder and biliary tree: Patient is status post cholecystectomy. No intra- or extrahepatic biliary ductal dilation. Pancreas: Unremarkable, no focal lesions. Spleen: Splenomegaly is noted, the spleen measures 13.5 mm. Adrenals: Unremarkable. Kidneys and ureters: Unremarkable. Bladder: [place] catheter is seen. Reproductive organs: Unremarkable. Bowel: Diverticulosis is seen without evidence of diverticulitis. The appendix is normal.. Lymph nodes Retroperitoneal: Unremarkable. Pelvic: Prominent subcentimeter inguinal nodes are noted. Mesenteric: Unremarkable. Peritoneum: Trace pelvic fluid fluid is seen, likely physiologic. Vessels: Unremarkable. Abdominal wall: Unremarkable. Bones: Degenerative changes in the visualized spine. IMPRESSION: 1. No acute abnormalities. 2. Diverticulosis without diverticulitis. 3. Additional findings as above. ACT 112: Negative or not required by law. Electronically signed by: Loyd Arambula M.D. 07/10/2023 11:[address] 07/10/23 02:19 CT head/brain wo con CLINICAL HISTORY: reynolds Technique: Contiguous axial CT images of the head were acquired from the base of the skull to the vertex without intravenous contrast administration. Images were viewed in brain, subdural and bone windows. Automated dose lowering techniques and/or adjustment according to patient size were utilized for this exam. Comparison: None available at the time of this dictation. Findings: The ventricles, basal cisterns, and cerebral sulci are normal. There is no acute intracranial hemorrhage or evidence of acute territorial infarction. Neither mass effect, shift of the midline structures, nor abnormal extra-axial fluid collections are shown. Imaged portions of the paranasal sinuses and mastoid air cells are clear. The orbits appear normal. There are no acute fractures of the calvaria or scalp swelling. Impression: No acute intracranial hemorrhage, no evidence of acute territorial infarction or other acute intracranial disease process. ACT 112: Negative or not required by law. Electronically signed by: Loyd Arambula M.D. 07/10/2023 11:22 AM KUB X-Ray 07/10/23 08:54 XR KUB/Abdomen 1 view CLINICAL HISTORY: diffuse abd pain TECHNIQUE: 1 view of the abdomen was obtained. Comparison: Comparison is made to abdomen radiographs 02/28/2022 FINDINGS: Cholecystomy clips are seen in the right upper quadrant. Degenerative changes are seen in the visualized skeleton. The bowel gas pattern is nonobstructive. Small stool burden is seen. IMPRESSION: Nonobstructive bowel gas pattern. ACT 112: Negative or not required by law. Electronically signed by: Loyd Arambula M.D. 07/10/2023 9:58 AM Renal Artery Duplex 07/15/23 13:38 US duplex renal artery CLINICAL HISTORY: renal artery stenosis? COMPARISON STUDY: CT of the abdomen and pelvis July 10, 2023. TECHNIQUE: Color and duplex Doppler abdominal aorta and renal arteries was performed. FINDINGS: The right kidney measures 13.1 cm in maximal dimension and the left measures 13.5 cm. There is no hydronephrosis. No renal calculi are identified by sonography. The proximal right renal artery was partially obscured due to suboptimal penetration. No elevated velocities within the right renal artery were noted. Left renal artery was also partially obscured. No elevated velocities were identified within visualized portions. Bilateral renal veins were patent. Segmental waveforms within the kidneys were grossly normal although left renal segmental vessels suboptimally assessed. Peak systolic velocity within the abdominal aorta was 149 cm/s. IMPRESSION: Technically nondiagnostic evaluation for renal artery stenosis given suboptimal penetration. No elevated velocities within visualized portions of the renal arteries although renal arteries partially obscured. ACT 112: Negative or not required by law. Electronically signed by: Roberto Knox M.D. 07/16/2023 6:55 AM (2) CKD (chronic kidney disease) stage 3, GFR 30-59 ml/min Chronic kidney disease stage 3 subtype: unspecified whether 3a or 3b Qualified Code(s): N18.30 - Chronic kidney disease, stage 3 unspecified
[2023-07-24] MEDS ORDERED: NIFEdipine EXTENDED REL 30 MG TABCR PO SCH (13:30)
[2023-07-24] MEDS: TORSEMIDE 20 MG TAB PO SCH (17:01)
[2023-07-24] MEDS: MELATONIN 3 MG TAB PO SCH (20:50)
[2023-07-24] MEDS: LANTUS PER UNIT CHARGE SQ SCH (20:51)
[2023-07-24] MEDS ORDERED: OLANZAPINE 2.5 MG TAB PO SCH (21:00)
[2023-07-25] MEDS: ACETAMINOPHEN 325 MG TAB PO PRN (04:59)
[2023-07-25] MEDS: hydrALAZINE HCL 20 MG/ML VIAL IV PRN ×2 (05:04→09:00)
[2023-07-25] MEDS: HEPARIN SOD 5,000 UNIT/0.5 ML VIAL SQ SCH ×2 (05:18→14:12)
[2023-07-25] MEDS: TORSEMIDE 20 MG TAB PO SCH (05:19)
[2023-07-25] MEDS ORDERED: oxyCODONE HCL IR 5 MG TAB (IMMEDIATE RELEASE) PO STA (09:00)
[2023-07-25] MEDS ORDERED: NIFEdipine EXTENDED REL 30 MG TABCR PO SCH (09:00)
[2023-07-25] MEDS: INSULIN ASPART PER UNIT CHARGE SC SCH ×2 (09:01→14:12)
[2023-07-25] MEDS: FLUoxetine HCL 20 MG CAP PO SCH (09:03)
[2023-07-25] MEDS: PANTOprazole 40 MG TAB PO SCH (09:03)
[2023-07-25] MEDS: ASPIRIN 81 MG ECTAB PO SCH (09:03)
[2023-07-25] MEDS: carvediloL 12.5 MG TAB PO SCH (09:04)
[2023-07-25] MEDS: CYANOCOBALAMIN (B-12) 500 MCG TABLET PO SCH (09:04)
[2023-07-25] MEDS: hydrALAZINE TAB 50 MG TAB PO SCH ×2 (09:04→14:13)
[2023-07-25] MEDS: POTASSIUM CHLORIDE CRTAB 20 MEQ TABCR PO SCH (09:05)
[2023-07-25] MEDS ORDERED: PSYLLIUM or GUAR GUM FIBER POWDER PACKET PO SCH (09:30)
--- NOTE | 2023-07-25 10:39 | Nephrology Progress Note ---
Date of Service July 25, 2023 Assessment & Plan Admission and Anticipated Discharge Date Admission Date: July 04, 2023 Subjective Assessment & Plan (1) Acute on chronic renal insufficiency: Plan: improving creatinine after recurrent/further worsening and recently oliguric stage 1 DAHLIA on CKD 3 > baseline creatinine 1.4-1.5 most recently. Creatinine h ad improved to normal w/ aggressive diuresis; then radha again in correlation w/ scaling back on diuretics. With resuming diuretics creatinine has again improved. ddx includes ischemic ATN in cardiorenal picture; cannot rule out glomerular process w/ volume overload. also w/ rapidly progressive ckd as below; now stage 3 (prior to this admission) after no CKD as recently as August 2022. (2) CKD (chronic kidney disease) stage 3, GFR 30-59 ml/min: Plan: She has rapidly progressive CKD >> prior to March 2023 creatinine was 0.8 (last lab check was February 2023); then in March during an admission she had DAHLIA w/ labile renal function ever since, 1.4-1.5 range. 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 albumin has dropped from 3.2 (a baseline) at admission to 2.3. unremarkable renal/adrenal imaging 07/10. -glomerular dz w/u pending > ESR, antihistone Ab, complement, ANCA, anti dsDNA, anti GBM, hepatitis panel, serum free light chains and immunofixation; cannot r/o need for renal bx; anti GBM Ab and PLA2R both ordered at later date and verified w/ lab; some of these labs may take > 1 wk to finalize -24 hr urine prot electrophor/IF in process of collection -Will need neph f/u after d/c (3) CHF (congestive heart failure): 1.5L FR Daily bmp continue hydralazine at 50 mg tid. coreg 12.5 bid Night Bipap both Aldactone and lisinopril now on hold very confusing Picture with Diuresis and renal function !!! Bicarb is Somewhat high but ABG and VBG shows Co2 retention and Compensated picture. No need to add diamox. She really needs night time Bipap if possible. Discussed with Primary team and will discharge her on torsemide 100 bid + Kcl 20 bid. needs labs at least weekly for now. f/u nephrology within 1-2 week for further adjustment of diuretics. But she seems to need a lot of Diuretics while inpt for now hold Aldactone /Renny/ARB till we know better about the trend of the renal function. Once creat stable ( even at higher baseline will reintroduce these drugs) BP high and Nifedipine was added. Also serological tests done 07/16 came back : p-ANCA is mildly positive. PLAR2 is pending. Discussed with labs ( confusing way of reporting). So will order specifically anti-MPO now. clinically however this type of waxing and waning creat and Intermittent microscopic hematuria is not consistent with vasculitis. Has 2 gm proteinuria which can easily happen with this degree of Morbid obesity. Will order UA and Serum albumin. Subjective Now c/o Nausea and also pain in leg. Not keen on getting discharged. wt is down by 40 kilo. . made 2600 ml urine on PO torsemide. Remains on 3 L of oxygen. Denies nausea vomiting. Some OOB activity. Now creat worsening again. BP is high. Review of Systems Review of Systems: All systems reviewed & are unremarkable except as noted in Subjective Physical Exam Constitutional: well developed, well nourished, + morbidly obese, + physical limitations (Sitting up on the side of the bed on 02NC) and cooperative; no acute distress Eyes: EOM intact bilaterally ENMT: Ears: no external ear abnormality Nose: no external nose abnormality Mouth: + dry oral mucous membranes Neck: no nuchal rigidity Respiratory: normal respiratory effort Auscultation: + diminished lung sounds Cardiovascular: Rate/Rhythm: regular rate (HS distant) and regular rhythm Extremities: + edema (3+ BLE distally and 1+ proximally) Gastrointestinal (Abdomen): Inspection/Auscultation: normal bowel sounds Percussion/Palpation: abdomen soft; abdomen nontender Musculoskeletal: Extremities: + abnormal strength Skin: no rashes, warm and dry Psychiatric: Orientation: alert and oriented x 3 Results & Data Vital Signs (Past 12 Hours) Vital Signs Temp Pulse Pulse Resp BP BP Pulse Ox 07/25/23 07:51 36.6 C 67 20 182/75 H 97 07/25/23 07:46 62 07/25/23 03:19 36.4 C L 65 20 182/71 H 96 07/24/23 23:29 36.5 C 67 20 146/67 H 98 O2 Del Method O2 Flow Rate 07/25/23 07:51 Nasal Cannula 2.5 07/25/23 07:46 07/25/23 03:19 Nasal Cannula 3.5 07/24/23 23:29 Nasal Cannula 3.5
--- NOTE | 2023-07-25 12:05 | Pharmacy Report ---
Pharmacy Glycemic Short Note 2 - Date of Service July 25, 2023 - Glycemic Short BSG Results (Last 24 hours): 07/24/23 07/24/23 07/24/23 12:12 17:26 20:08 POC Glucose 140 H 122 H 139 H 07/25/23 08:05 POC Glucose 146 H OUTPATIENT ANTIDIABETIC REGIMEN: * Levemir 27 units SC BID * Humalog 10 units SC AC * HbA1c: 10.1% (04/28/23) ASSESSMENT: 07/25/23 * Patient received total of 12 units of basal insulin yesterday and no bolus. * It looks like she hardly had any food intake yesterday. BSGs were at goal all day long. * She has not required any changes in her basal and bolus regimens for the past 5 days. No changes made today. 07/21/23 * Sofiya received 39 units of insulin yesterday (12 were basal) * Fasting BSG today within goal range * Carb ratio slightly tightened on Friday, all BSGs within acceptable range * She continues on a Lasix drip. Her serum creatinine slightly bumped up today after improving. We will continue to follow due to unstable renal function and potential for insulin accumulation 07/18/23 * BSGs yesterday were [phone] mg/dL. Patient received 36 units of insulin (12 units of basal and 24 units of bolus). * Fasting today is 112 mg/dL. Continue 12 units. * CR was tightened yesterday with excellent results. Continue. 07/17/23 * BSGs yesterday were [phone] mg/dL. Patient received 37 units of insulin (12 units of basal and 25 units of bolus). * Fasting today is 128 mg/dL. Continue 12 units. * Tighten CR since BSGs trend upwards. 07/15: * BSGs remain reasonably well-controlled over past 72 hours * Received 25 units of insulin (10 units of basal and 15 units of prandial/correctional bolus) * Fasting BSG of 110 mg/dL this morning * Do not anticipate any changes to glycemic regimen today 07/13: * Sofiya received 22 units of insulin yesterday, 10 basal + 12 bolus. BSGs were: [phone] mg/dL. * Fasting BSG of 135 mg/dL today is at goal. No change to insulin regimen necessary. * Diet advanced and being tolerated. 07/11: * BSGs yesterday [id number] mg/dL. Patient received 16 units of insulin (10 units of basal and 6 units of bolus). * Today's BSGs are 100-139. * Patient's Lasix increased to 80 mg IV q8 hours. PO intake reduced. * Reduce last to 8 units if BSG < 140 mg/dL. * Continue Novolog as BSGs steady. 07/09: * BSGs yesterday were [phone] mg/dL. Patient received 32 units of insulin (20 units of basal and 12 units of bolus). * Fasting today is 102 mg/dL. * Decrease Lantus to 15 units nightly. * Continue Novolog as BSGs relatively stable. BACKGROUND * 53 year old admitted with DAHLIA and CHF. Pharmacy consulted for glycemic management. Patient's blood sugars low this morning, provider held AM basal insulin. BSGs continue to be low at lunch time, despite held AM basal and only 2 units novolog given at breakfast * Patient received total of 67 units yesterday, of which 54 units were basal. Regimen heavily basal weighted, possibly contributing to lower BSGs today - plan to decrease basal dose by ~50-60% and redose tonight. Removed CR for today for now until BSGs start to recover PLAN FOR INPATIENT GLYCEMIC CONTROL: * Basal insulin * Lantus 12 units SC HS * Bolus insulin * NovoLog per scale ACHS or Q6hrs while NPO * Goal Range: Low 110 mg/dL - High 140 mg/dL * Correction Factor: 25 mg/dL/unit * Nutritional / Prandial insulin per carb ratio of 1 unit per 6 grams CHO consumed
--- NOTE | 2023-07-25 14:31 | Discharge Summary ---
Date of Service July 25, 2023 Admission HPI Per Admitting Provider 53yoF with PMHx significant for insulin-dependent T2DM, diabetic neuropathy, diabetic nephropathy with CKD stage III, HTN, HLD, chronic HFpEF, morbid obesity, history necrotizing fasciitis, bilateral lower extremity lymphedema, iron deficiency anemia and left chronic heel ulcer who presents to the ED for increased edema of BLE, and not feeling well. She has been admitted every month this year since February, for issues including for her wounds and social needs/medication management. She was last discharged on 05/08/2023. Pt is a resident of [facility], and has not walked in several months due to lower extremity pain, heel wound, lymphedema and deconditioning. Her PT ran out about 3 weeks ago and therefore has not been participating in it. The patient presents to the hospital this morning with complaints of shortness of breath and feeling she is filling up with fluid, with swelling in her legs, as well as the left upper arm and abdomen. She notes yesterday had episode of chest pain in the morning, which was waxing and waning in nature in the front of her chest, and lasted for a short time, but it happened 2-3 times yesterday. She feels short of breath moreso today than yesterday and felt worried, so called 911 herself while at [facility] . Pt denies any chest pain currently, but is feeling short of breath and wearing 2 L o2, where normally does not require at baseline. Discussion was held with nursing from the facility for medication reconcilliation personally - they also report that yesterday the patient refused all her medications except for lispro insulin at breakfast. Ozempic was discontinued about 1 month ago as there was concern that this medication was increasing nausea for the patient. Due to increased edema, lasix was increased from 20 to 40 mg yesterday, and she was given 40 mg IM injection yesterday. They have been dressing the left heel wound with santel and dry kerlix daily. Admission Exam Per Admitting Provider General: awake, alert, no apparent distress, morbidly obese female with BMI of 57.5 Head: Normocephalic, atraumatic ENT: PERRL, EOMI, no pharyngeal exudate, mucous membranes dry Chest: Clear to auscultation, on 1 L via NC with sats a 99%, breath sounds difficult to auscultate due to body habitus, diminished but no obvious rales, rhonchi or wheeze. Cardiac: Sinus td with HR in the 50s, no murmur, no JVD, normal peripheral pulses, good capillary refill Abdominal: NABS x 4 quadrants, soft, nondistended, nontender to palpation, no rebound or guarding Extremities: Normal inspection, + significant 2+ pitting edema BLE up to knees, chronic skin changes, no erythema, + left heel wound present, no surrounding erythema calfs nontender to palpation Psych: Normal mood and affect Neuro: AAO x 3, strength intact bilaterally and rated 5/5 in upper extremities, rated 3/5 in lower extremities, no gross motor deficits, speech is clear, no peripheral sensory deficits Principal Diagnosis DAHLIA on CKD Acute on chronic diastolic heart failure Discharge Exam General- oriented x 3, not in distress, speaks in sentences with no effort or accessory muscle use Eyes- anicteric Neck- no JVD Lungs- clear breath sounds bilaterally Heart- normal rate, regular rhythm; no murmurs Abdomen- normal bowel sounds, nondistended, soft, nontender Extremities- grade 1 lower ext edema- mild erythema, no calf tenderness Neuro- alert, oriented x 3; no gross focal neurologic deficits Skin- warm & dry Discharge Data Allergies Allergy/AdvReac Type Severity Reaction Status Date / Time No Known Allergies Allergy Unknown Verified 04/28/23 19:53 Consultations 07/04/23 10:22 ED Decision to Admit Stat 07/04/23 11:44 Consult Nephrology Routine 07/05/23 17:00 Consult Cardiology Routine 07/10/23 14:11 Consult Gastroenterology Routine Ordered Studies 07/10/23 02:19 CT Abd and Pelvis [CT abd pelvis wo con] Stat CT head/brain wo con Stat 07/15/23 13:38 US duplex renal artery Routine Hospital Course (1) Acute on chronic heart failure with preserved ejection fraction (HFpEF): (2) CKD (chronic kidney disease) stage 3, GFR 30-59 ml/min: (3) Acute on chronic renal insufficiency: (1) Acute on chronic heart failure with preserved ejection fraction (HFpEF): Plan: (1) CHF (congestive heart failure): (2) Hypertension: (3) Diabetic ulcer of foot associated with type 2 diabetes mellitus, with bone involvement without evidence of necrosis: (4) Lymphedema of both lower extremities: (5) Anemia: (6) UTI (urinary tract infection): (7) Type 2 diabetes mellitus, with long-term current use of insulin: (8) Diabetic peripheral neuropathy associated with type 2 diabetes mellitus: (9) Obesity: Plan: Ms. Rand is a 53-year-old male with PMH of insulin-dependent T2DM, diabetic neuropathy, diabetic nephropathy with CKD stage III, HTN, HLD, HFpEF, morbid obesity, necrotizing fasciitis, bilateral lower extremity lymphedema, TRACI, left chronic heel ulcer presented to the ED for generalized swelling/increased edema of BLE and not feeling well, and admitted for acute heart failure with preserved EF. Patient responded robustly to IV diuersis with up to 8L UOP in a day; however course complicated by nausea, vomiting, and diarrhea. There was no clear eitology of these gastric concerns, but potentially related to daptomycin which was initiated for a presumptive cellulitis of RLE. Discontinuation of daptomycin, as well as less strict glucose control, was noted by improved GI symptoms. During the hospitalization cardiology and nephrology were consulted for comanagement. Patient was diuresed for 49 L during the hospitalization. Admitting [id number] kg, discharge [id number] kg At discharge, patient was discharged on torsemide 100 mg twice daily as per nephrology. Antihypertensives were titrated to Coreg 12.5 twice daily, nifedipine 60 mg once daily and hydralazine 50 mg 3 times daily Patient completed treatment for UTI and lower extremity cellulitis as well. Lantus and lispro were decreased as per inpatient glycemic management. Ksgszk27.5 mg at this was ordered for nausea/vomiting after discussion with the patient. Patient was discharged back to [facility]. Please note the above document was generated using voice recognition software. It may contain grammatical, syntax or spelling errors. Any formal questions or concerns about the content, text or information contained within the body of this dictation should be directly addressed to the provider for clarification Total Time Total Time Spent Total Time Spent (In Minutes): 35 Total Time Includes: Examination of the Patient, Discharge Planning, Medication Reconciliation, Communication With Other Providers and Other Discharge Plan Discharge Items Patient Disposition: Transfer Halfway Fac Reason For Visit: DAHLIA, ELEVATED TROPONIN Discharge Diagnosis: DAHLIA and CKD Acute on chronic diastolic heart failure Activity: Resume your previous activity Non-emergency contact: Primary Care Provider Call non-emergency contact if: you have any medication questions and your symptoms worsen Follow-up/Referrals: Mayra Holley DO [Primary Care Provider] - Diet: Regular Addtl Attending Provider Instructions: You were admitted to the hospital due to heart failure and acute kidney injury. You are treated by a team of doctors including cardiology, gastroenterology and nephrology. Please take your medications as prescribed. Your insulin dosing has been decreased to 6 units Levemir twice daily and 4 units lispro with meals. Recheck BMP in 1 week to make sure kidney function is stable. Your creatinine at the time of discharge was 1.76. You are prescribed on torsemide 100 mg twice daily. Zyprexa was started at a low-dose 2.5 mg for nausea and vomiting. You can take it for 1 week and see the response. If it is not helpful, it can be stopped Please follow-up with nephrology in 2 weeks. Please follow-up with PCP in 2 weeks. Pending Studies at Discharge: No Stand-Alone Forms: My [facility] Skilled Items Patient informed of condition?: Yes DNR: No Discharge Level of Care: Skilled Communicable Disease: No Discharge Prognosis: Stable Lines: None Urinary Catheter: No Medications and DC Order Prescriptions: New carvedilol 12.5 mg Tablet 12.5 mg PO BIDM Qty: 60 0RF potassium chloride 20 mEq Tablet,Er Particles/Crystals 20 meq PO BID Qty: 60 0RF pantoprazole 40 mg Tablet,Delayed Release (Dr/Ec) 40 mg PO DAILY Qty: 30 0RF hydralazine 50 mg Tablet 50 mg PO TID Qty: 90 0RF nifedipine [Procardia XL] 30 mg Tablet Extended Release 24hr 60 mg PO QAM Qty: 30 0RF torsemide 20 mg Tablet 100 mg PO Q12H Qty: 60 0RF olanzapine 2.5 mg Tablet 2.5 mg PO HS Qty: 30 0RF Continued cyanocobalamin (vitamin B-12) [Vitamin B-12] 1,000 mcg Tablet 1,000 mcg PO DAILY acetaminophen [Tylenol Extra Strength] 500 mg Tablet 1,000 mg PO Q6H PRN (Reason: Pain) gabapentin 600 mg Tablet 600 mg PO BID Qty: 60 0RF aspirin 81 mg Tablet,Delayed Release (Dr/Ec) 81 mg PO QAM ferrous sulfate 325 mg (65 mg iron) Tablet 325 mg PO DAILY melatonin 3 mg Tablet 3 mg PO HS fluoxetine [Prozac] 20 mg Capsule 20 mg PO DAILY Changed insulin lispro 100 unit/mL solution 4 unit subcut AC Qty: 10 0RF Levemir U-100 Insulin 100 unit/mL solution 6 unit SUBCUT BID Qty: 10 0RF Discontinued metoprolol succinate 25 mg tablet extended release 24 hr 25 mg PO QAM furosemide [Lasix] 40 mg Tablet 40 mg PO QAM hydralazine 50 mg tablet 50 mg PO QAM Discharge Orders: Discharge Order (Routine); Ordered 07/25/23 Ordered By: Parth Pemberton Admission Data Admit Date/Time: 07/04/23 10:41 Attending Provider: Parth Pemberton Admit Provider: Kyle Conley Primary Care Provider: Mayra Holley Other Providers: Kyle Conley; Magdalena Kong; Rekha Dowling; Jayce Pack; Mathieu Kern; Pollo Holley; Lorne Rabago; Brian Sanchez Rebecca K; Rosi Guzman Ashley M.; Tay Rodriguez; Navid Jordan; Sherrie Martin; Allison Morton; Shiela Gee; Gato Macario; Trinidad Dean Jr; Dian Howard; Jeff Roland Other Interventions: Discharge Summary Assessment (RN) Last Done: 07/25/23 14:18
[2023-07-25 14:46] LABS: Appearance Urine Turbid (Clear); Bacteria Urine Automated 2+ (Negative); Bilirubin Urine Negative (Negative); Blood Urine 3+ (Negative); Color Urine Orange; Glucose Urine UA Negative (Negative); Ketones Urine Negative (Negative); Leukocyte Esterase Urine 3+ (Negative); Nitrite Urine Positive (Negative); Specific Gravity Urine 1.014 (1.000-1.030); Urobilinogen Urine Negative (Negative); WBC Urine Automated >30 /hpf (0-5)
[2023-07-25 14:47] LABS: Protein Urine 3+ (Negative)
[2023-07-25 14:58] LABS: Epithelial Cell Urine Auto 20-30 /lpf (0-5); RBC Urine Automated >30 /hpf (0-4)
[2023-07-25] MEDS ORDERED: TORSEMIDE 20 MG TAB PO SCH (17:00)
[2023-07-25 19:12] LABS: Albumin 3.1 g/dL (3.8-4.8); Alpha 1 Globulin 0.3 g/dL (0.2-0.3); Alpha 2 Globulin 0.7 g/dL (0.5-0.9); Beta-1-Globulin 0.4 g/dL (0.4-0.6); Beta-2-Globulin 0.5 g/dL (0.2-0.5); Gamma Globulin 1.3 g/dL (0.8-1.7); Monoclonal Protein Band 1 DNR g/dL (NONE DETECTED); Monoclonal Protein Band 2 DNR g/dL (NONE DETECTED); Monoclonal Protein Band 3 DNR g/dL (NONE DETECTED); Total Protein 6.4 g/dL (6.1-8.1)
== END 2023-07-25 15:48 | DRG 682 ==
LOC: ED 08:03 → SUATTDRO 10:41 → 2W 10:41

== ENCOUNTER 2023-09-19 15:18 | Inpatient (IN) ==
[2023-09-19 16:37] LABS: Base Excess VBG 21.4 mEq/L; HCO3 VBG 53 mmol/L; Oxygen Saturation VBG 64.2 %; PCO2 VBG 98 mmHg (38-50); PO2 VBG 40 mmHg; pH VBG 7.34 (7.36-7.41)
[2023-09-19 16:43] LABS: Basophils # (auto) 0.07 K/uL (0.00-0.20); Basophils % (auto) 0.8 %; Eosinophils # (auto) 0.08 K/uL (0.00-0.50); Eosinophils % (auto) 0.9 %; Hematocrit (blood only) 36.6 % (37.0-47.0); Hemoglobin 10.9 g/dl (12.0-16.0); Immature Granulocytes # (auto) 0.04 K/uL (0.01-0.20); Immature Granulocytes % (auto) 0.4 %; Lymphocytes % (auto) 16.4 %; Mean Corpuscular Hemoglobin 28.5 pg (25.0-34.0); Mean Corpuscular Hgb Conc 29.8 g/dL (32.0-36.0); Mean Corpuscular Volume 95.8 fL (80.0-100.0); Mean Platelet Volume 12.5 fL (9.4-12.4); Monocytes # (auto) 0.64 K/uL (0.11-0.59); Neutrophils # (auto) 6.83 K/uL (1.40-6.50); Neutrophils % (auto) 74.5 %; Platelet Count 143 K/uL (130-400); RDW Coefficient of Variation 14.1 % (11.5-14.5); RDW Standard Deviation 49.3 fL (36.4-46.3); Red Blood Count 3.82 M/uL (4.20-5.40); White Blood Count 9.16 K/ul (4.8-10.8)
--- NOTE | 2023-09-19 16:54 | XRay Report ---
XR chest 1V portable CLINICAL HISTORY: Dyspnea TECHNIQUE: Single frontal radiograph of the chest was obtained. Comparison: Comparison is made to chest radiograph 07/04/2023 FINDINGS: Exam is limited by underpenetration. Cardiomegaly is noted. The lungs are clear. No evidence of pleur al effusion or pneumothorax. IMPRESSION: No acute abnormalities and in particular no radiographic evidence of pneumonia. ACT 112: Negative or not required by law. Electronically signed by: Loyd Arambula M.D. 09/19/2023 4:52 PM
[2023-09-19 17:04] LABS: Albumin Globulin Ratio 0.9 (0.9-2); Albumin Level 3.5 gm/dl (3.4-5.0); BUN Creatinine Ratio 32.3 (10-20); Bilirubin,Total 0.5 mg/dl (0.2-1.0); Calcium 8.9 mg/dl (8.6-10.3); Creatinine Clr Calc Pharmacy 60.6 ml/min; Est GFR (African American) 40.7 ml/min; Est GFR (Non-African American) 35.1 ml/min; Globulin 3.8 gm/dl (2.5-4.0); Potassium 5.3 mmol/L (3.5-5.1); Total Protein 7.3 gm/dl (6.0-8.3)
--- NOTE | 2023-09-19 17:21 | Emergency Department Note ---
Impression & Plan Acute respiratory acidosis, CHF (congestive heart failure), Carbon dioxide retention, Acute alteration in mental status ED Provider Note NAME: LUIS MANUEL MIKE AGE: 53 SEX: F : 1970 ARRIVES VIA: Ambulance INFORMANT: Patient, EMS ED PROVIDER(S): Navi Ortiz DO CHIEF COMPLAINT: Difficulty breathing HPI: The patient is a 53-year-old female who presented to the emergency department from her retirement for an evaluation of difficulty breathing. The patient has a history of CHF. She had a blood gas as an outpatient which showed that she was retaining CO2. She has been more lethargic and confused compared to usual. She denies having any chest pain or difficulty breathing. She is been compliant with her outpatient medications. The patient has a history of chronic kidney disease as well. She is thinks that she has been retaining fluid more than usual. ROS: See above HPI for pertinent positives & negatives. A total of 10 systems reviewed and were otherwise negative. PAST MEDICAL HISTORY: See Below PAST SURGICAL HISTORY: See Below FAMILY HISTORY: See Below SOCIAL HISTORY: See Below HOME MEDICATIONS: See Below ALLERGIES: See Below VITALS: See Below PHYSICAL EXAMINATION: GENERAL: The patient is awake to verbal commands. She is somewhat listless. EYES: The conjunctivae are clear. The pupils are round and reactive. EARS, NOSE, MOUTH AND THROAT: The nose is without any evidence of any deformity. NECK: The neck is nontender and supple. RESPIRATORY: Diminished breath sounds are noted both bases. There were rales at both bases. CARDIOVASCULAR: Regular heart sounds were noted to auscultation. Systolic murmur was suggested. GASTROINTESTINAL: The abdomen is soft. Abdomen is nontender. MUSCULOSKELETAL/EXTREMITIES: There is no evidence of gross deformity full range of motion is noted in the hips and shoulders. SKIN: Chronic venous stasis changes were noted. There is pedal edema bilaterally NEUROLOGIC: Patient is awake and oriented x3. MEDICAL DECISION MAKING: The patient is a 53-year-old female who presented to the emergency department for an evaluation of difficulty breathing. The patient was noted to be having decreased mental status. She had outpatient labs that showed that she was retaining CO2. She was sent to the emergency department from her retirement for further evaluation. She does a history of volume overload and I feel her physical exam was consistent with volume overload. She was treated with IV Lasix as well as BiPAP. She continued to improve while in the emergency department. I discussed the patient's laboratory and radiographic studies with her. [facility]. [facility] have agreed to evaluate the patient in the emergency department for further management and disposition. Triage Nursing notes reviewed. Prior medical records reviewed Vital Signs: reviewed and remarkable for no significant abnormalities Differential diagnosis: Reactive airway disease, pneumonia, pneumothorax, COPD, CHF, infections, cardiac ischemia, pulmonary embolism, musculoskeletal, gastrointestinal, as well as other pathologies. ER treatment provided: See below Diagnostics interpreted by me: ECG: EKG was obtained in the emergency department. My interpretation is sinus bradycardia at 50 bpm. Right bundle-branch block pattern was noted. There were no PVCs. This was compared to a tracing from July 09, 2023. No changes were noted. Cardiac Monitoring: An order was placed for continuous cardiac monitoring. The monitor shows a rate of 51 bpm with sinus bradycardia Laboratory studies: As stated above and show below. Imaging studies: See below. Radiographic imaging was reviewed by myself Consultation(s): I discussed this case with Millie who is on-call for the [facility] hospitalist group. ED COURSE: Procedures: none Critical Care: I have personally spent greater than 45 minutes of critical care time in the direct management of this patient. This includes bedside care, interpretation of diagnostic studies, and testing, discussion with consultants, patient, and family members, and other required patient management activities. This 45 minutes is in excess of all separately billable procedures. Past Med/Surg History Medical History CKD (chronic kidney disease) stage 3, GFR 30-59 ml/min Cellulitis of left lower extremity Anemia Personal history of diabetic foot ulcer Loss of protective sensation of skin of foot Type 2 diabetes mellitus with complications Type 2 diabetes mellitus, with long-term current use of insulin Diabetic peripheral neuropathy associated with type 2 diabetes mellitus Diabetes type 2, uncontrolled Vitamin D deficiency Dyslipidemia Back pain Xerosis cutis Varicose veins of both lower extremities Obesity Insomnia Hirsutism Fatigue Dysfunctional uterine bleeding Depression with anxiety Tobacco use HTN (hypertension) History of DVT (deep vein thrombosis) Surgical History History of incision and drainage left foot by Dr. Haq on 10-03-19. H/O tooth extraction History of cholecystectomy History of facial surgery History of nasal polypectomy History of endometrial ablation History of tubal ligation History of hysterectomy History of Family History Father Dyslipidemia Prostate cancer Diabetes Lung cancer Mother Lung cancer Hypothyroidism Brother Coronary heart disease Asthma Grandfather (Maternal) Myocardial infarction Grandmother (Maternal) Myocardial infarction Grandmother (Paternal) Breast cancer Diabetes Social History Smoking Status: Former smoker Tobacco Type: Cigarettes Hx Alcohol Use: No Hx Substance Use: No Preferred Language: Wolof Communication Ability: Effective 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 Beliefs That Will Affect Care: None marital status: Single Current Living Situation: Rehab Current Living Situation Comment: [facility] Other Information That Helps Us Care for You: No Feels Safe at Home: Yes Safety Concerns: Feels Safe At This Time Assistive Devices: Walker Allergies Allergies Allergy/AdvReac Type Severity Reaction Status Date / Time No Known Allergies Allergy Unknown Verified 04/28/23 19:53 Home Meds Home Medications Medication Instructions Recorded Confirmed aspirin 81 mg tablet,delayed 81 mg PO QAM 03/14/22 09/19/23 release ferrous sulfate 325 mg (65 mg 325 mg PO DAILY 03/14/22 09/19/23 iron) tablet cyanocobalamin (vitamin B-12) 1,000 mcg PO DAILY 03/13/23 09/19/23 1,000 mcg tablet (Vitamin B-12) fluoxetine 20 mg capsule (Prozac) 20 mg PO DAILY 07/04/23 09/19/23 melatonin 3 mg tablet 3 mg PO HS 07/04/23 09/19/23 acetaminophen 325 mg tablet 650 mg PO Q6 PRN Fever Or Pain 09/19/23 09/19/23 ammonium lactate 12 % lotion 1 applic topical BID 09/19/23 09/19/23 carvedilol 12.5 mg tablet 6.25 mg PO BIDM 09/19/23 09/19/23 cephalexin 500 mg capsule 500 mg PO Q8H 09/19/23 09/19/23 cyclobenzaprine 5 mg tablet 2.5 mg PO Q8 PRN Muscle Spasm 09/19/23 09/19/23 furosemide 100 mg/100 mL (1 mg/mL) 4 ml IV DAILY 09/19/23 09/19/23 in 0.9 % sod chloride IV piggyback gabapentin 300 mg capsule 300 mg PO DAILY 09/19/23 09/19/23 gabapentin 600 mg tablet 600 mg PO Q12 09/19/23 09/19/23 hydralazine 25 mg tablet 25 mg PO TID 09/19/23 09/19/23 insulin detemir U-100 100 unit/mL 14 unit subcut BID 09/19/23 09/19/23 subcutaneous solution (Levemir U-100 Insulin) insulin lispro 100 unit/mL 9 unit subcut AC 09/19/23 09/19/23 subcutaneous half-unit pen (Humalog Miah KwikPen (U-100)) nifedipine 60 mg tablet,extended 60 mg PO QAM 09/19/23 09/19/23 release 24 hr (Procardia XL) ondansetron HCl 4 mg tablet 4 mg PO Q6H PRN Nausea And Vomiting 09/19/23 09/19/23 torsemide 20 mg tablet 80 mg PO Q12H 09/19/23 09/19/23 Previous Rx's Medication Instructions Recorded pantoprazole 40 mg tablet,delayed 40 mg PO DAILY #30 tabs 07/24/23 release potassium chloride 20 mEq 20 meq PO BID #60 tabs 07/24/23 tablet,extended release(part/cryst) olanzapine 2.5 mg tablet 2.5 mg PO HS #30 tabs 07/25/23 Results & Data (ED) Vital Signs Vital Signs - 24 hr 09/19/23 15:28 09/19/23 15:29 09/19/23 15:29 Temperature 37.0 C Temperature Source Oral Pulse Rate 52 L 52 L Pulse Rate [Apical] Pulse Rhythm Regular Pulse Rhythm [Apical] Pulse Strength Normal Pulse Strength [Apical] Respiratory Rate 24 Respiratory Effort / Characteristics Non-Labored Spontaneous Non-Labored Spontaneous Respiratory Depth Normal Normal Respiratory Pattern Regular Regular Blood Pressure 139/61 Blood Pressure [Right Arm] Blood Pressure Mean 87 Blood Pressure Mean [Right Arm] Blood Pressure Position Semi-fowlers Blood Pressure Position [Right Arm] Pulse Oximetry 96 Oxygen Delivery Method Nasal Cannula Nasal Cannula Oxygen Flow Rate 3 3 Fraction of Inspired Oxygen SaO2/FiO2 Ratio Sepsis Recent Fever Within 48 Hours No Sepsis New/Unexplained Change in Mental Status N/A Sepsis Action Taken by Nursing No Action Required 09/19/23 15:29 09/19/23 15:29 09/19/23 16:31 Temperature Temperature Source Pulse Rate Pulse Rate [Apical] 52 L Pulse Rhythm Pulse Rhythm [Apical] Regular Pulse Strength Pulse Strength [Apical] Normal Respiratory Rate 24 Respiratory Effort / Characteristics Non-Labored Spontaneous Respiratory Depth Normal Respiratory Pattern Regular Blood Pressure Blood Pressure [Right Arm] Blood Pressure Mean Blood Pressure Mean [Right Arm] Blood Pressure Position Blood Pressure Position [Right Arm] Pulse Oximetry 97 97 96 Oxygen Delivery Method Nasal Cannula Nasal Cannula Nasal Cannula Oxygen Flow Rate 3 3 3 Fraction of Inspired Oxygen SaO2/FiO2 Ratio Sepsis Recent Fever Within 48 Hours Sepsis New/Unexplained Change in Mental Status Sepsis Action Taken by Nursing 09/19/23 17:28 09/19/23 19:23 09/19/23 19:24 Temperature Temperature Source Pulse Rate 52 L 50 L Pulse Rate [Apical] 51 L Pulse Rhythm Pulse Rhythm [Apical] Regular Pulse Strength Pulse Strength [Apical] Normal Respiratory Rate 17 19 Respiratory Effort / Characteristics Non-Labored Spontaneous Non-Labored Spontaneous Labored Respiratory Depth Normal Normal Respiratory Pattern Regular Blood Pressure Blood Pressure [Right Arm] 129/56 L Blood Pressure Mean Blood Pressure Mean [Right Arm] 80 Blood Pressure Position Blood Pressure Position [Right Arm] Semi-fowlers Pulse Oximetry 99 97 Oxygen Delivery Method CPAP Oxygen Flow Rate Fraction of Inspired Oxygen 30 30 SaO2/FiO2 Ratio 323 Sepsis Recent Fever Within 48 Hours Sepsis New/Unexplained Change in Mental Status Sepsis Action Taken by Group Home Medications Current Medication List: was personally reviewed by me Laboratory Data Attestation: I reviewed the patient's lab results. 09/19/23 15:55 09/19/23 15:55 Lab Results 09/19/23 09/19/23 Range/Units 15:55 16:45 WBC 9.16 (4.8-10.8) K/ul RBC 3.82 L (4.20-5.40) M/uL Hgb 10.9 L (12.0-16.0) g/dl Hct 36.6 L (37.0-47.0) % MCV 95.8 (80.0-100.0) fL MCH 28.5 (25.0-34.0) pg MCHC 29.8 L (32.0-36.0) g/dL RDW Std Deviation 49.3 H (36.4-46.3) fL RDW Coeff of Mya 14.1 (11.5-14.5) % Plt Count 143 (130-400) K/uL MPV 12.5 H (9.4-12.4) fL Immature Gran % (Auto) 0.4 % Neut % (Auto) 74.5 % Lymph % (Auto) 16.4 % Luce % (Auto) 7.0 % Eos % (Auto) 0.9 % Baso % (Auto) 0.8 % Neut # (Auto) 6.83 H (1.40-6.50) K/uL Lymph # (Auto) 1.50 (1.20-3.40) K/uL Luce # (Auto) 0.64 H (0.11-0.59) K/uL Eos # (Auto) 0.08 (0.00-0.50) K/uL Baso # (Auto) 0.07 (0.00-0.20) K/uL Immature Gran # (Auto) 0.04 (0.01-0.20) K/uL VBG pH 7.34 L (7.36-7.41) VBG pCO2 98 H (38-50) mmHg VBG pO2 40 mmHg VBG HCO3 53 mmol/L VBG O2 Saturation 64.2 % VBG Base Excess 21.4 mEq/L Sodium 137 (136-145) mmol/L Potassium 5.3 H (3.5-5.1) mmol/L Chloride 90 L (98-107) mmol/L Carbon Dioxide 44 H* (21-32) mmol/L Anion Gap 3 (3-11) BUN 53 H (6-23) mg/dl Creatinine 1.64 H (0.6-1.2) mg/dl Est Cr Clr Drug Dosing 60.6 ml/min Est GFR ( Amer) 40.7 ml/min Est GFR (Non-Af Amer) 35.1 ml/min BUN/Creatinine Ratio 32.3 H (10-20) Glucose 178 H (70-99(Fasting)) mg/dl Calcium 8.9 (8.6-10.3) mg/dl Total Bilirubin 0.5 (0.2-1.0) mg/dl AST 22 (13-39) U/L ALT 11 (7-52) U/L Alkaline Phosphatase 140 H (34-104) U/L Total Protein 7.3 (6.0-8.3) gm/dl Albumin 3.5 (3.4-5.0) gm/dl Globulin 3.8 (2.5-4.0) gm/dl Albumin/Globulin Ratio 0.9 (0.9-2) SARS-CoV-2 (PCR) NEGATIVE (Negative) Influenza Type A (PCR) Negative (Neg) Influenza Type B (PCR) Negative (Neg) RSV (RT-PCR) Negative (Neg) Administered Medications Discontinued Medications Furosemide (Furosemide 40 Mg/4 Ml Vial) 80 mg IV ONE ONE Stop: 09/19/23 17:19 Last Admin: 09/19/23 17:26 Dose: 80 mg Documented By: TIERA Imaging Data Attestation: I personally reviewed and interpreted this imaging study as follows: My Impression: 1 view chest x-ray was obtained in the emergency department. My interpretation is volume overload, final report below Radiologist's Impression: Chest X-Ray 09/19/23 16:31 XR chest 1V portable CLINICAL HISTORY: Dyspnea TECHNIQUE: Single frontal radiograph of the chest was obtained. Comparison: Comparison is made to chest radiograph 07/04/2023 FINDINGS: Exam is limited by underpenetration. Cardiomegaly is noted. The lungs are clear. No evidence of pleural effusion or pneumothorax. IMPRESSION: No acute abnormalities and in particular no radiographic evidence of pneumonia. ACT 112: Negative or not required by law. Electronically signed by: Loyd Arambula M.D. 09/19/2023 4:52 PM Discharge Plan Visit Data Chief Complaint: Shortness of Breath/Dyspnea ED Provider: Navi Ortiz Discharge Problem: Acute respiratory acidosis, CHF (congestive heart failure), Carbon dioxide retention, Acute alteration in mental status Patient Disposition: Being Evaluated by Hospitalist Forms Stand Alone Forms: My [facility] Prescriptions Prescriptions: No Action cyanocobalamin (vitamin B-12) [Vitamin B-12] 1,000 mcg Tablet 1,000 mcg PO DAILY aspirin 81 mg Tablet,Delayed Release (Dr/Ec) 81 mg PO QAM ferrous sulfate 325 mg (65 mg iron) Tablet 325 mg PO DAILY melatonin 3 mg Tablet 3 mg PO HS fluoxetine [Prozac] 20 mg Capsule 20 mg PO DAILY potassium chloride 20 mEq Tablet,Er Particles/Crystals 20 meq PO BID Qty: 60 0RF pantoprazole 40 mg Tablet,Delayed Release (Dr/Ec) 40 mg PO DAILY Qty: 30 0RF olanzapine 2.5 mg Tablet 2.5 mg PO HS Qty: 30 0RF gabapentin 300 mg capsule 300 mg PO DAILY gabapentin 600 mg tablet 600 mg PO Q12 cyclobenzaprine 5 mg Tablet 2.5 mg PO Q8 PRN (Reason: Muscle Spasm) Rx Instructions: 1/2 tablet dose carvedilol 12.5 mg tablet 6.25 mg PO BIDM Rx Instructions: 1/2 tablet twice a day....hold for B/P 100/60 or, Pulse <60 acetaminophen 325 mg Tablet 650 mg PO Q6 MDD 3g PRN (Reason: Fever Or Pain) Rx Instructions: use for pain or temp>101 nifedipine [Procardia XL] 60 mg Tablet Extended Release 24hr 60 mg PO QAM torsemide 20 mg tablet 80 mg PO Q12H ondansetron HCl [Zofran] 4 mg Tablet 4 mg PO Q6H PRN (Reason: Nausea And Vomiting) Levemir U-100 Insulin 100 unit/mL solution 14 unit SUBCUT BID insulin lispro [Humalog Miah KwikPen U-100] 100 unit/mL Insulin Pen, Half- Unit 9 unit SUBCUT AC Rx Instructions: hold insulin for less than 100 blood sugar, hold if eats 50% or lesss of meals furosemide in 0.9 % NaCl 100 mg/100 mL (1 mg/mL) Piggyback 4 ml IV DAILY Rx Instructions: 3 day course starting on 09/18/23 hydralazine 25 mg Tablet 25 mg PO TID cephalexin [Keflex] 500 mg Capsule 500 mg PO Q8H Rx Instructions: end date 09/25/23 ammonium lactate 12 % lotion 1 applic TOPICAL BID Rx Instructions: apply to BLE for xerosis...wash leg first Referrals Referrals: Mayra Holley DO [Primary Care Provider] - Discharge Problem: CHF (congestive heart failure) Qualifiers: Heart failure type: unspecified Heart failure chronicity: acute on chronic Q ualified Code(s): I50.9 - Heart failure, unspecified
[2023-09-19] MEDS: FUROSEMIDE 40 MG/4 ML VIAL IV ONE (17:26)
[2023-09-19 17:38] LABS: Influenza A virus by PCR Negative (Neg); Influenza B virus by PCR Negative (Neg); RSV by PCR Negative (Neg); SARS CoV2 RNA(COVID-19) Ceph NEGATIVE (Negative)
--- NOTE | 2023-09-19 18:10 | History & Physical Report ---
Date of Service September 19, 2023 Assessment & Plan (1) Metabolic encephalopathy: (2) Hypercarbia: Plan: Patient is 53-year-old female with PMH insulin-dependent DM II, diabetic neuropathy, CKD III, HTN, HLD, chronic HFpEF, morbid obesity, history necrotizing fasciitis, bilateral lower extremity lymphedema, left chronic heel ulcer, iron deficiency anemia, and others listed below presented to ER from [facility] for reported altered mental status and shortness of breath. Today outpatient labs with elevated CO2. Patient presented to ER and was lethargic. In ER patient was afebrile, was 96% on 3 L nasal cannula. During my evaluation patient appears comfortable on BiPAP. She awakens to voice and light touch but not conversant. Initial VBG pH: 7.34, pCO2: 98, HCO3: 53. Repeat VBG 2 hours after BiPAP placed: pH: 7.4, pCO2: 81. Vitals P: 51, R: 19, BP 129/56, 97% on BiPAP No leukocytosis. Negative influenza, RSV, SARS-CoV-2 PCR CXR: No acute abnormalities and in particular no radiographic evidence of pneumonia. Likely metabolic encephalopathy secondary to hypercarbia. Suspect OHS CT head pending UA, urine drug screen pending Continue BiPAP N.p.o. while on BiPAP CBC, BMP, VBG in a.m. (3) Acute on chronic heart failure with preserved ejection fraction (HFpEF): Plan: History Echo 07/05/2023: EF: 55-60%, grade 1 diastolic dysfunction, right ventricle severely dilated, right ventricular systolic function mildly reduced, severe tricuspid regurgitation, moderate pulmonary hypertension Suspect acute on chronic CHF. Volume status difficult to assess with body habitus In ER given 80 mg Lasix IV BNP, troponin pending. EKG sinus bradycardia, RBBB Lasix 80 mg IV twice daily. Hold home torsemide 80 mg twice daily Heaton catheter. Monitor I's and O's, daily weights. When condition improves and can have diet plan for low-sodium diet Cardiology consult (4) Hyperkalemia: Plan: K: 5.3 Repeat BMP tonight Hold home potassium supplement (5) CKD (chronic kidney disease) stage 3, GFR 30-59 ml/min: Plan: History of progressive CKD Cr: 1.6. Recent baseline~1.4. Recent DAHLIA Monitor renal functions, avoid nephrotoxic agents when possible Nephrology consult (6) HTN (hypertension): Plan: Stable Hold carvedilol with current bradycardia Hold hydralazine Continue nifedipine (7) Type 2 diabetes mellitus, with long-term current use of insulin: Plan: A1c: 7.7 on 08/25/2023 Continue basal bolus insulin (8) Lymphedema of both lower extremities: Plan: Patient was started on Keflex outpatient for reported leg cellulitis started on 09/15/2023 Currently does not appear cellulitic Will place on Rocephin for now and monitor (9) Chronic iron deficiency anemia: Plan: Hgb: 10.9. Baseline 9-10 Continue iron supplement (10) Neuropathy: Plan: Chronic neuropathy Hold gabapentin with altered mental status (11) Depression with anxiety: Plan: Hold olanzapine for now with altered mental status Plan to continue Prozac when able to take p.o. DVT Prophylaxis Heparin SQ Full Code as per patient POLST form Follows with Dr Mayra Holley for routine care Pt was seen and care coordinated with Dr Weiner. See addendum I spent a total of 80 minutes reviewing notes, outpatient records, labs, medication, coordinating, documenting and providing care for this patient excluding time spent in the performance of separately billed services. History of Present Illness Chief Complaint: Altered mental status and shortness of breath Primary Care Provider: Mayra Holley DO Patient is 53-year-old female with PMH insulin-dependent DM II, diabetic neuropathy, CKD III, HTN, HLD, chronic HFpEF, morbid obesity, history necrotizing fasciitis, bilateral lower extremity lymphedema, left chronic heel ulcer, iron deficiency anemia, chronic metabolic alkalosis and others listed below presented to ER from [facility] for reported altered mental status and shortness of breath. History of hospitalization 07/04/2023-07/25/2023 for acute on chronic heart failure, DAHLIA on CKD III treated with IV diuretics and had total of 49 L diuresed during her hospitalization. History obtained from inpatient and outpatient chart review, ER staff is unable to obtain from patient secondary to her current mental status. It is reported by EMS that patient has been more lethargic the past several days. It is reported she was more short of breath today. She had outpatient labs done this morning which showed elevated CO2. Patient was started on Keflex outpatient for reported leg cellulitis started on 09/15/2023 and was to be completed on 09/25/2023. Yesterday patient started on IV Lasix 40 mg daily x 3 days on 09/18/23. Patient is currently on torsemide 80 mg twice daily. Patient presented to ER and was lethargic. In ER patient was afebrile, was 96% on 3 L nasal cannula. VBG with CO2 98 and patient was placed on BiPAP. During my evaluation patient appears comfortable on BiPAP. She awakens to voice and light touch but is unable to provide any further history. Per chart review: Echo 07/05/2023: EF: 55-60%, grade 1 diastolic dysfunction, right ventricle severely dilated, right ventricular systolic function mildly reduced, severe tricuspid regurgitation, moderate pulmonary hypertension Allergies Allergy/AdvReac Type Severity Reaction Status Date / Time No Known Allergies Allergy Unknown Verified 04/28/23 19:53 Home Medications Medication Instructions Recorded Confirmed Type aspirin 81 mg tablet,delayed 81 mg PO QAM 03/14/22 09/19/23 History release ferrous sulfate 325 mg (65 mg 325 mg PO DAILY 03/14/22 09/19/23 History iron) tablet cyanocobalamin (vitamin B-12) 1,000 mcg PO DAILY 03/13/23 09/19/23 History 1,000 mcg tablet (Vitamin B-12) fluoxetine 20 mg capsule (Prozac) 20 mg PO DAILY 07/04/23 09/19/23 History melatonin 3 mg tablet 3 mg PO HS 07/04/23 09/19/23 History pantoprazole 40 mg tablet,delayed 40 mg PO DAILY #30 tabs 07/24/23 09/19/23 Rx release potassium chloride 20 mEq 20 meq PO BID #60 tabs 07/24/23 09/19/23 Rx tablet,extended release(part/cryst) olanzapine 2.5 mg tablet 2.5 mg PO HS #30 tabs 07/25/23 09/19/23 Rx acetaminophen 325 mg tablet 650 mg PO Q6 PRN Fever Or Pain 09/19/23 09/19/23 History ammonium lactate 12 % lotion 1 applic topical BID 09/19/23 09/19/23 History carvedilol 12.5 mg tablet 6.25 mg PO BIDM 09/19/23 09/19/23 History cephalexin 500 mg capsule 500 mg PO Q8H 09/19/23 09/19/23 History cyclobenzaprine 5 mg tablet 2.5 mg PO Q8 PRN Muscle Spasm 09/19/23 09/19/23 History furosemide 100 mg/100 mL (1 mg/mL) 4 ml IV DAILY 09/19/23 09/19/23 History in 0.9 % sod chloride IV piggyback gabapentin 300 mg capsule 300 mg PO DAILY 09/19/23 09/19/23 History gabapentin 600 mg tablet 600 mg PO Q12 09/19/23 09/19/23 History hydralazine 25 mg tablet 25 mg PO TID 09/19/23 09/19/23 History insulin detemir U-100 100 unit/mL 14 unit subcut BID 09/19/23 09/19/23 History subcutaneous solution (Levemir U-100 Insulin) insulin lispro 100 unit/mL 9 unit subcut AC 09/19/23 09/19/23 History subcutaneous half-unit pen (Humalog Miah KwikPen (U-100)) nifedipine 60 mg tablet,extended 60 mg PO QAM 09/19/23 09/19/23 History release 24 hr (Procardia XL) ondansetron HCl 4 mg tablet 4 mg PO Q6H PRN Nausea And Vomiting 09/19/23 09/19/23 History torsemide 20 mg tablet 80 mg PO Q12H 09/19/23 09/19/23 History Past Med/Surg History Medical History (Updated 09/19/23 @ 21:10 by Malena Banda PA-C) Chronic iron deficiency anemia Chronic metabolic acidosis CKD (chronic kidney disease) stage 3, GFR 30-59 ml/min Cellulitis of left lower extremity Anemia Personal history of diabetic foot ulcer Loss of protective sensation of skin of foot Type 2 diabetes mellitus with complications Type 2 diabetes mellitus, with long-term current use of insulin Diabetic peripheral neuropathy associated with type 2 diabetes mellitus Diabetes type 2, uncontrolled Vitamin D deficiency Dyslipidemia Back pain Xerosis cutis Varicose veins of both lower extremities Obesity Insomnia Hirsutism Fatigue Dysfunctional uterine bleeding Depression with anxiety Tobacco use HTN (hypertension) History of DVT (deep vein thrombosis) Surgical History History of incision and drainage left foot by Dr. Haq on 10-03-19. H/O tooth extraction History of cholecystectomy History of facial surgery History of nasal polypectomy History of endometrial ablation History of tubal ligation History of hysterectomy History of Family History Father Dyslipidemia Prostate cancer Diabetes Lung cancer Mother Lung cancer Hypothyroidism Brother Coronary heart disease Asthma Grandfather (Maternal) Myocardial infarction Grandmother (Maternal) Myocardial infarction Grandmother (Paternal) Breast cancer Diabetes Social History Smoking Status: Former smoker Tobacco Type: Cigarettes Hx Alcohol Use: No Hx Substance Use: No Preferred Language: [place] Communication Ability: Effective Miniature Set Constructor Required: No Beliefs That Will Affect Care: None marital status: Single Current Living Situation: Rehab Current Living Situation Comment: [facility] Other Information That Helps Us Care for You: No Feels Safe at Home: Yes Safety Concerns: Feels Safe At This Time Assistive Devices: Walker Review of Systems Review of Systems: All systems reviewed & are unremarkable except as noted in HPI & below Physical Exam Physical Exam: General: no distress on bipap currently, +lethargic, awakens to light touch, +obese Head: normocephalic, atraumatic Eyes: EOM's intact, conjunctiva non-injected, anicteric ENT: normal inspection external ears, nose, mucous membranes moist Neck: supple, trachea midline Lungs: clear, no respiratory distress on current bipap and no wheezing/rhonchi/rales appreciated, however bipap is in place and difficult to auscultate CV: RRR, +2-3+ pretibial edema Abd: protuberant, normal BS, soft, no apparent tenderness to palpation Ext: no cyanosis Neuro: Lethargic, somnolent, Awakens to voice and light touch but unable to follow commands or converse Skin: warm, dry, BLE +dry skin with slight erythema without significant warmth Results & Data Results & Data Vital Signs (Past 12 Hours) Vital Signs Temp Pulse Pulse Resp BP Pulse Ox O2 Del Method 09/19/23 17:28 52 L 17 99 09/19/23 16:31 96 Nasal Cannula 09/19/23 15:29 52 L 24 97 Nasal Cannula 09/19/23 15:29 97 Nasal Cannula 09/19/23 15:29 37.0 C 52 L 24 139/61 96 Nasal Cannula 09/19/23 15:29 Nasal Cannula 09/19/23 15:28 52 L O2 Flow Rate FiO2 09/19/23 17:28 30 09/19/23 16:31 3 09/19/23 15:29 3 09/19/23 15:29 3 09/19/23 15:29 3 09/19/23 15:29 3 09/19/23 15:28 Laboratory Results Short CBC 09/19/23 Range/Units 15:55 WBC 9.16 (4.8-10.8) K/ul Hgb 10.9 L (12.0-16.0) g/dl Hct 36.6 L (37.0-47.0) % Plt Count 143 (130-400) K/uL BMP 09/19/23 15:55 Sodium 137 Potassium 5.3 H Chloride 90 L Carbon Dioxide 44 H* BUN 53 H Creatinine 1.64 H Glucose 178 H Calcium 8.9 Liver Function 09/19/23 Range/Units 15:55 Total Bilirubin 0.5 (0.2-1.0) mg/dl AST 22 (13-39) U/L ALT 11 (7-52) U/L Alkaline Phosphatase 140 H (34-104) U/L Albumin 3.5 (3.4-5.0) gm/dl Diagnostic Findings Chest X-Ray 09/19/23 16:31 XR chest 1V portable CLINICAL HISTORY: Dyspnea TECHNIQUE: Single frontal radiograph of the chest was obtained. Comparison: Comparison is made to chest radiograph 07/04/2023 FINDINGS: Exam is limited by underpenetration. Cardiomegaly is noted. The lungs are clear. No evidence of pleural effusion or pneumothorax. IMPRESSION: No acute abnormalities and in particular no radiographic evidence of pneumonia. ACT 112: Negative or not required by law. Electronically signed by: Loyd Arambula M.D. 09/19/2023 4:52 PM ECG Additional Comments: Sinus bradycardia, rate 50, right bundle branch block. Compared to EKG 07/09/2023, RBBB is chronic per my interpretation Supervising Physician Co-Signing Physician Notes Pt seen and examined by myself, Fay Weiner MD on the day of service. Care was coordinated with Malena Banda PA-C. Pt is a 53yoF with PMHx significant for morbid obesity, insulin-dependent DM II, diabetic neuropathy, CKD III, HTN, HLD, chronic HFpEF, history necrotizing fasciitis, bilateral lower extremity lymphedema, left chronic heel ulcer, iron deficiency anemia presenting from [facility] with concern for shortness of breath and altered mental status. Pt was on bipap at the time of admission, lethargic but responsive to verbal stimuli by opening her eyes and moving. There was a POLST Form on the bed, noting she wished to be Full code. Hgb 10.9, VBG pH 7.34 CO2 98, K+ 5.3, Cr 1.64, glucose of 178, Alk phos 140, BNP 181, UA pending, EKG with sinus bradycardia Negative Flu, Covid, RSV Head CT with no acute findings Chest XRAY with no acute abnormalities On exam, lethargic but responsive to verbal stimuli by opening her eyes and moving. RRR, no increased effort of breathing, noted edema in lower extremities with scaling Acute hypoxic hypercarbic respiratory failure- continue continuous bipap use, q2-4h VBG checks, consider pulmonology followup, possible YVROSE/obesity hypoventilation component Acute metabolic encephalopathy- Head CT unremarkable, consider Brain MRI, UA pending at time of eval. Likely in setting of hypercarbia, continue bipap as above, hold home psychogenic/sedating meds. Otherwise as above. (5) CKD (chronic kidney disease) stage 3, GFR 30-59 ml/min Chronic kidney disease stage 3 subtype: unspecified whether 3a or 3b Qualified Code(s): N18.30 - Chronic kidney disease, stage 3 unspecified (7) Type 2 diabetes mellitus, with long-term current use of insulin Diabetes mellitus complication status: without complication Qualified Code(s): E11.9 - Type 2 diabetes mellitus without complications; Z79.4 - jail (current) use of insulin
[2023-09-19 20:18] LABS: Base Excess VBG 20.6 mEq/L; HCO3 VBG 50 mmol/L; Oxygen Saturation VBG 84.8 %; PCO2 VBG 81 mmHg (38-50); PO2 VBG 53 mmHg
[2023-09-19 20:45] LABS: Appearance Urine Clear (Clear); Bacteria Urine Automated Negative (Negative); Bilirubin Urine Negative (Negative); Blood Urine Trace (Negative); Color Urine Yellow; Epithelial Cell Urine Auto >30 /lpf (0-5); Glucose Urine UA Negative (Negative); Ketones Urine Negative (Negative); Leukocyte Esterase Urine Trace (Negative); Nitrite Urine Negative (Negative); Protein Urine 2+ (Negative); Specific Gravity Urine 1.012 (1.000-1.030); Urobilinogen Urine Negative (Negative)
[2023-09-19 20:58] LABS: Cast Urine Automated >30 /lpf (0-5)
[2023-09-19 21:16] LABS: Amphetamines+Metham, Urine Neg (Neg); Barbiturates, Urine Neg (Neg); Benzodiazepine, Urine Neg (Neg); Cocaine, Urine Neg (Neg); MDMA (Ecstacy), Urine Neg (Neg); Marijuana, Urine Neg (Neg); Methadone, Urine Neg (Neg); Opiate, Urine Neg (Neg); Phencyclidine, Urine Neg (Neg)
[2023-09-19 21:18] LABS: BUN Creatinine Ratio 32.3 (10-20); Calcium 8.5 mg/dl (8.6-10.3); Creatinine Clr Calc Pharmacy 60.6 ml/min; Est GFR (African American) 40.7 ml/min; Est GFR (Non-African American) 35.1 ml/min; Potassium 4.7 mmol/L (3.5-5.1)
[2023-09-19] MEDS ORDERED: GLUCOSE 10 TAB/TUBE PO PRN (21:28)
[2023-09-19] MEDS ORDERED: DEXTROSE 50% 50 ML SYRINGE IV PRN (21:28)
[2023-09-19] MEDS ORDERED: GLUCAGON FOR INJ 1 MG VIAL SQ PRN (21:28)
[2023-09-19] MEDS ORDERED: CARBOHYDRATES FOR HYPOGLYCEMIA PO PRN (21:28)
[2023-09-19] MEDS ORDERED: POLYETHYLENE (MIRALAX) 17 GM PACK PO PRN (21:28)
[2023-09-19] MEDS ORDERED: GLUCOSE 40% GEL 15 GM TUBE PO PRN (21:28)
[2023-09-19 21:31] LABS: Troponin I High Sensitivity 17.4 pg/ml (0-14)
[2023-09-19] MEDS: AMMONIUM LACTATE 12% LOTION 225 GM BTL EXT SCH (22:32)
[2023-09-19] MEDS: HEPARIN SOD 5,000 UNIT/0.5 ML VIAL SQ SCH (22:33)
[2023-09-19] MEDS: cefTRIAXone SODIUM 2,000 MG in DEXTROSE 5 % MINI-B 50 ML IV SCH (22:33)
[2023-09-19] MEDS: LANTUS PER UNIT CHARGE SQ SCH (22:38)
[2023-09-19] MEDS: INSULIN ASPART PER UNIT CHARGE SC SCH (22:42)
--- NOTE | 2023-09-19 23:08 | CT Scan Report ---
Exam(s): CT HEAD Without Contrast EXAM: CT Head Without Intravenous Contrast CLINICAL HISTORY: Reason for exam: AMS. TECHNIQUE: Axial computed tomography images of the head/brain without intravenous contrast. CTDI is 63.23 mGy and DLP is 961.59 mGy-cm. Automated exposure control was utilized for the study. A dose lowering technique was utilized adhering to the principles of ALARA. COMPARISON: No relevant prior studies available. FINDINGS: The study is limited secondary to motion artifact. Brain: There is a remote ischemic injury of the right cerebellum. No hemorrhage. Mild to moderate nonspecific white matter changes. No edema. Ventricles: Unremarkable. No ventriculomegaly. Bones/joints: Hyperostosis frontalis interna. No acute fracture. Soft tissues: Unremarkable. Sinuses: Status post endoscopic sinus surgery. No acute sinusitis. Mastoid air cells: Small amount of fluid in the right to moderate amount of fluid in the left mastoid air cells. No mastoid effusion. IMPRESSION: No evidence of acute intracranial pathology. Electronically signed by: Yessenia Ovalle MD 09/19/23 23:07 PM
[2023-09-20 04:48] LABS: Base Excess VBG 22.1 mEq/L; HCO3 VBG 51 mmol/L; Oxygen Saturation VBG 87.7 %; PCO2 VBG 73 mmHg (38-50); PO2 VBG 54 mmHg; pH VBG 7.45 (7.36-7.41)
[2023-09-20 04:57] LABS: Hematocrit (blood only) 31.9 % (37.0-47.0); Hemoglobin 9.5 g/dl (12.0-16.0); Mean Corpuscular Hemoglobin 28.2 pg (25.0-34.0); Mean Corpuscular Hgb Conc 29.8 g/dL (32.0-36.0); Mean Corpuscular Volume 94.7 fL (80.0-100.0); Platelet Count 140 K/uL (130-400); RDW Coefficient of Variation 14.4 % (11.5-14.5); RDW Standard Deviation 49.2 fL (36.4-46.3); Red Blood Count 3.37 M/uL (4.20-5.40)
[2023-09-20 07:22] LABS: BUN Creatinine Ratio 37.3 (10-20); Calcium 8.7 mg/dl (8.6-10.3); Creatinine Clr Calc Pharmacy 66.3 ml/min; Est GFR (African American) 45.3 ml/min; Est GFR (Non-African American) 39.1 ml/min; Potassium 4.2 mmol/L (3.5-5.1)
--- NOTE | 2023-09-20 08:06 | Hospitalist Progress Note ---
Date of Service September 20, 2023 Assessment & Plan (1) Metabolic encephalopathy: (2) Hypercarbia: Plan: Patient is 53-year-old female with PMH insulin-dependent DM II, diabetic neuropathy, CKD III, HTN, HLD, chronic HFpEF, morbid obesity, history necrotizing fasciitis, bilateral lower extremity lymphedema, left chronic heel ulcer, iron deficiency anemia, and others listed below presented to ER from [facility] for reported altered mental status and shortness of breath. Today outpatient labs with elevated CO2. Patient presented to ER and was lethargic. In ER patient was afebrile, was 96% on 3 L nasal cannula. During my evaluation patient appears comfortable on BiPAP. She awakens to voice and light touch but not conversant. Initial VBG pH: 7.34, pCO2: 98, HCO3: 53. Repeat VBG 2 hours after BiPAP placed: pH: 7.4, pCO2: 81. Vitals P: 51, R: 19, BP 129/56, 97% on BiPAP No leukocytosis. Negative influenza, RSV, SARS-CoV-2 PCR CXR: No acute abnormalities and in particular no radiographic evidence of pneumonia. Likely metabolic encephalopathy secondary to hypercarbia. Suspect OHS CT head negative UA, urine drug screen negat. Continue BiPAP CBC, BMP, VBG in a.m. (3) Acute on chronic heart failure with preserved ejection fraction (HFpEF): Plan: History Echo 07/05/2023: EF: 55-60%, grade 1 diastolic dysfunction, right ventricle severely dilated, right ventricular systolic function mildly reduced, severe tricuspid regurgitation, moderate pulmonary hypertension Suspect acute on chronic CHF. Volume status difficult to assess with body habitus In ER given 80 mg Lasix IV BNP 181, troponin x3 14-17. EKG sinus bradycardia, RBBB Lasix 80 mg IV twice daily. Hold home torsemide 80 mg twice daily [place] catheter. Monitor I's and O's, daily weights. When condition improves and can have diet plan for low-sodium diet Cardiology consulted - hold coreg for now, cont. w/ diuresis, need for bipap Discussed w/ nephrology - switch lasix to bumex (4) Hyperkalemia: Plan: K: 5.3 Repeat BMP tonight Hold home potassium supplement (5) CKD (chronic kidney disease) stage 3, GFR 30-59 ml/min: Plan: History of progressive CKD Cr: 1.6. Recent baseline~1.4. Recent DAHLIA Monitor renal functions, avoid nephrotoxic agents when possible Nephrology consult (6) HTN (hypertension): Plan: Stable Hold carvedilol with current bradycardia Hold hydralazine Continue nifedipine (7) Type 2 diabetes mellitus, with long-term current use of insulin: Plan: A1c: 7.7 on 08/25/2023 Continue basal bolus insulin (8) Lymphedema of both lower extremities: Plan: Patient was started on Keflex outpatient for reported leg cellulitis started on 09/15/2023 Currently does not appear cellulitic Placed on Rocephin on admission for now, cont. to monitor (9) Chronic iron deficiency anemia: Plan: Hgb: 10.9. Baseline 9-10 Continue iron supplement (10) Neuropathy: Plan: Chronic neuropathy Hold gabapentin with altered mental status (11) Depression with anxiety: Plan: Hold olanzapine for now with altered mental status Plan to continue Prozac when able to take p.o. DVT Prophylaxis Heparin SQ Full Code as per patient POLST form Follows with Dr Mayra Holley for routine care Admission and Anticipated Discharge Date Admission Date: September 19, 2023 Subjective Pt seen in follow up of altered mental status, likely from hypercarbia. poss. leg cellulitis was placed on bipap in ED, started on IV lasix cardiology and nephrology consulted Currently patient is sitting up in bed, on supplemental oxygen, 3 L, she is awake alert and able to answer appropriately Her only complaint right now is being hungry and wants to advance her diet Tells me she has been feeling groggy for past few days. Says that she was h aving some muscle twitches and was given muscle relaxer, which made her feel quite off. Not sure if this was contributing to her hypercarbia. Presented with increased volume status. Currently denies any fever chills chest pain shortness of breath abdominal pain nausea vomiting. Per RN patient has diarrhea, will test for C. difficile. Review of Systems Review of Systems: All systems reviewed & are unremarkable except as noted in Subjective Physical Exam Physical Exam: General: morbidly obese F in NAD, on suppl. O2 Head: normocephalic, atraumatic Eyes: EOM's intact, conjunctiva non-injected, anicteric ENT: normal inspection external ears, nose, mucous membranes moist Neck: supple Lungs: no respiratory distress, ctab anteriorly CV: RRR, +2-3 LE edema b/l Abd: soft, obese, normal BS, no apparent tenderness to palpation Ext: moves extremities Neuro: Awake, alert, answers appropriately, speech fluent, no facial asymmetry, moves extremities Skin: warm, dry, BLE +dry skin with slight erythema without significant warmth Results & Data Results & Data Vital Signs (Past 12 Hours) Vital Signs Pulse Pulse Resp BP BP Pulse Ox Pulse Ox 09/20/23 07:20 53 L 17 95 09/20/23 07:06 50 L 09/20/23 06:00 09/20/23 05:40 49 L 16 94 09/20/23 05:30 48 L 16 94 09/20/23 05:20 49 L 16 94 09/20/23 05:10 49 L 16 94 09/20/23 05:00 49 L 17 94 09/20/23 05:00 09/20/23 04:50 50 L 17 95 09/20/23 04:40 52 L 20 92 09/20/23 04:30 51 L 17 98 09/20/23 04:30 138/66 09/20/23 04:20 51 L 17 97 09/20/23 04:10 53 L 21 94 09/20/23 04:00 51 L 20 97 09/20/23 04:00 125/65 09/20/23 03:50 51 L 17 96 09/20/23 03:44 52 L 15 95 09/20/23 03:40 52 L 17 96 09/20/23 03:30 134/78 09/20/23 03:30 51 L 18 96 09/20/23 03:20 54 L 19 09/20/23 03:10 54 L 18 94 09/20/23 03:00 52 L 18 93 09/20/23 03:00 137/70 09/20/23 02:50 48 L 16 93 09/20/23 02:40 45 L 16 93 09/20/23 02:30 48 L 17 94 09/20/23 02:30 122/61 09/20/23 02:20 49 L 18 94 09/20/23 02:10 47 L 18 93 09/20/23 02:00 123/64 09/20/23 02:00 47 L 17 92 09/20/23 01:50 47 L 19 93 09/20/23 01:40 48 L 19 94 09/20/23 01:30 121/62 09/20/23 01:30 49 L 17 94 09/20/23 01:20 47 L 18 93 09/20/23 01:10 46 L 18 93 09/20/23 01:00 127/67 09/20/23 01:00 48 L 17 95 09/20/23 00:50 50 L 15 96 09/20/23 00:40 50 L 23 97 09/20/23 00:38 51 L 17 95 09/20/23 00:30 139/73 09/20/23 00:30 50 L 18 96 09/20/23 00:20 50 L 16 95 09/20/23 00:10 51 L 16 95 09/20/23 00:00 141/67 H 09/20/23 00:00 51 L 17 96 09/19/23 23:50 52 L 20 95 09/19/23 23:40 54 L 21 94 09/19/23 23:39 98 09/19/23 23:38 09/19/23 23:30 141/87 H 09/19/23 23:30 54 L 18 95 09/19/23 23:20 55 L 18 95 09/19/23 23:15 56 L 09/19/23 22:59 58 L 19 127/71 98 09/19/23 21:36 60 16 96 O2 Del Method O2 Del Method FiO2 09/20/23 07:20 30 09/20/23 07:06 09/20/23 06:00 BiPAP 09/20/23 05:40 09/20/23 05:30 09/20/23 05:20 09/20/23 05:10 09/20/23 05:00 09/20/23 05:00 BiPAP 09/20/23 04:50 09/20/23 04:40 09/20/23 04:30 09/20/23 04:30 09/20/23 04:20 09/20/23 04:10 09/20/23 04:00 09/20/23 04:00 09/20/23 03:50 09/20/23 03:44 30 09/20/23 03:40 09/20/23 03:30 09/20/23 03:30 09/20/23 03:20 09/20/23 03:10 09/20/23 03:00 09/20/23 03:00 09/20/23 02:50 09/20/23 02:40 09/20/23 02:30 09/20/23 02:30 09/20/23 02:20 09/20/23 02:10 09/20/23 02:00 09/20/23 02:00 09/20/23 01:50 09/20/23 01:40 09/20/23 01:30 09/20/23 01:30 09/20/23 01:20 09/20/23 01:10 09/20/23 01:00 09/20/23 01:00 09/20/23 00:50 09/20/23 00:40 09/20/23 00:38 30 09/20/23 00:30 09/20/23 00:30 09/20/23 00:20 09/20/23 00:10 09/20/23 00:00 09/20/23 00:00 09/19/23 23:50 09/19/23 23:40 09/19/23 23:39 Room Air 09/19/23 23:38 BiPAP 09/19/23 23:30 09/19/23 23:30 09/19/23 23:20 BiPAP 09/19/23 23:15 09/19/23 22:59 CPAP 09/19/23 21:36 30 Laboratory Results 09/20/23 09/20/23 09/20/23 Range/Units 06:04 04:43 04:42 WBC 6.00 (4.8-10.8) K/ul RBC 3.37 L (4.20-5.40) M/uL Hgb 9.5 L (12.0-16.0) g/dl Hct 31.9 L (37.0-47.0) % MCV 94.7 (80.0-100.0) fL MCH 28.2 (25.0-34.0) pg MCHC 29.8 L (32.0-36.0) g/dL RDW Std Deviation 49.2 H (36.4-46.3) fL RDW Coeff of Mya 14.4 (11.5-14.5) % Plt Count 140 (130-400) K/uL MPV 12.0 (9.4-12.4) fL Immature Gran % (Auto) % Neut % (Auto) % Lymph % (Auto) % [place] % (Auto) % Eos % (Auto) % Baso % (Auto) % Neut # (Auto) (1.40-6.50) K/uL Lymph # (Auto) (1.20-3.40) K/uL [place] # (Auto) (0.11-0.59) K/uL Eos # (Auto) (0.00-0.50) K/uL Baso # (Auto) (0.00-0.20) K/uL Immature Gran # (Auto) (0.01-0.20) K/uL VBG pH 7.45 H (7.36-7.41) VBG pCO2 73 H (38-50) mmHg VBG pO2 54 mmHg VBG HCO3 51 mmol/L VBG O2 Saturation 87.7 % VBG Base Excess 22.1 mEq/L Sodium 140 (136-145) mmol/L Potassium 4.2 (3.5-5.1) mmol/L Chloride 92 L (98-107) mmol/L Carbon Dioxide 41 H* (21-32) mmol/L Anion Gap 7 (3-11) BUN 56 H (6-23) mg/dl Creatinine 1.50 H (0.6-1.2) mg/dl Est Cr Clr Drug Dosing 66.3 ml/min Est GFR ( Amer) 45.3 ml/min Est GFR (Non-Af Amer) 39.1 ml/min BUN/Creatinine Ratio 37.3 H (10-20) Glucose 113 H (70-99(Fasting)) mg/dl POC Glucose 116 H (70-99) mg/dl Calcium 8.7 (8.6-10.3) mg/dl Magnesium 2.0 (1.7-2.4) mg/dl Total Bilirubin (0.2-1.0) mg/dl AST (13-39) U/L ALT (7-52) U/L Alkaline Phosphatase (34-104) U/L Troponin I High Sens 16.4 H (0-14) pg/ml B-Natriuretic Peptide (0-100) pg/ml Total Protein (6.0-8.3) gm/dl Albumin (3.4-5.0) gm/dl Globulin (2.5-4.0) gm/dl Albumin/Globulin Ratio (0.9-2) Urine Color Urine Appearance (Clear) Urine pH (4.5-7.5) Ur Specific [place] (1.000-1.030) Urine Protein (Negative) Urine Glucose (UA) (Negative) Urine Ketones (Negative) Urine Blood (Negative) Urine Nitrite (Negative) Urine Bilirubin (Negative) Urine Urobilinogen (Negative) Ur Leukocyte Esterase (Negative) Urine WBC (Auto) (0-5) /hpf Urine RBC (Auto) (0-4) /hpf U Hyaline Cast (Auto) (0-5) /lpf U Epithel Cells (Auto) (0-5) /lpf Urine Bacteria (Auto) (Negative) Urine Yeast (None Prsent) Urine Opiates Screen (Neg) Ur Methadone, Qual (Neg) Urine Barbiturates (Neg) Ur Phencyclidine (PCP) (Neg) U Amphetamin/Meth Scrn (Neg) MDMA (Ecstasy) Screen (Neg) U Benzodiazepines Scrn (Neg) Ur Cocaine Metabolite (Neg) U Marijuana (THC) Screen (Neg) SARS-CoV-2 (PCR) (Negative) Influenza Type A (PCR) (Neg) Influenza Type B (PCR) (Neg) RSV (RT-PCR) (Neg) 09/19/23 09/19/23 09/19/23 Range/Units Unknown 22:27 22:25 WBC (4.8-10.8) K/ul RBC (4.20-5.40) M/uL Hgb (12.0-16.0) g/dl Hct (37.0-47.0) % MCV (80.0-100.0) fL MCH (25.0-34.0) pg MCHC (32.0-36.0) g/dL RDW Std Deviation (36.4-46.3) fL RDW Coeff of Mya (11.5-14.5) % Plt Count (130-400) K/uL MPV (9.4-12.4) fL Immature Gran % (Auto) % Neut % (Auto) % Lymph % (Auto) % [place] % (Auto) % Eos % (Auto) % Baso % (Auto) % Neut # (Auto) (1.40-6.50) K/uL Lymph # (Auto) (1.20-3.40) K/uL [place] # (Auto) (0.11-0.59) K/uL Eos # (Auto) (0.00-0.50) K/uL Baso # (Auto) (0.00-0.20) K/uL Immature Gran # (Auto) (0.01-0.20) K/uL VBG pH 7.40 (7.36-7.41) VBG pCO2 81 H (38-50) mmHg VBG pO2 53 mmHg VBG HCO3 50 mmol/L VBG O2 Saturation 84.8 % VBG Base Excess 20.6 mEq/L Sodium 138 (136-145) mmol/L Potassium 4.7 (3.5-5.1) mmol/L Chloride 92 L (98-107) mmol/L Carbon Dioxide 44 H* (21-32) mmol/L Anion Gap 2 L (3-11) BUN 53 H (6-23) mg/dl Creatinine 1.64 H (0.6-1.2) mg/dl Est Cr Clr Drug Dosing 60.6 ml/min Est GFR ( Amer) 40.7 ml/min Est GFR (Non-Af Amer) 35.1 ml/min BUN/Creatinine Ratio 32.3 H (10-20) Glucose 143 H (70-99(Fasting)) mg/dl POC Glucose 139 H (70-99) mg/dl Calcium 8.5 L (8.6-10.3) mg/dl Magnesium (1.7-2.4) mg/dl Total Bilirubin (0.2-1.0) mg/dl AST (13-39) U/L ALT (7-52) U/L Alkaline Phosphatase (34-104) U/L Troponin I High Sens 17.4 H 14.9 H (0-14) pg/ml B-Natriuretic Peptide (0-100) pg/ml Total Protein (6.0-8.3) gm/dl Albumin (3.4-5.0) gm/dl Globulin (2.5-4.0) gm/dl Albumin/Globulin Ratio (0.9-2) Urine Color Urine Appearance (Clear) Urine pH (4.5-7.5) Ur Specific [place] (1.000-1.030) Urine Protein (Negative) Urine Glucose (UA) (Negative) Urine Ketones (Negative) Urine Blood (Negative) Urine Nitrite (Negative) Urine Bilirubin (Negative) Urine Urobilinogen (Negative) Ur Leukocyte Esterase (Negative) Urine WBC (Auto) (0-5) /hpf Urine RBC (Auto) (0-4) /hpf U Hyaline Cast (Auto) (0-5) /lpf U Epithel Cells (Auto) (0-5) /lpf Urine Bacteria (Auto) (Negative) Urine Yeast (None Prsent) Urine Opiates Screen (Neg) Ur Methadone, Qual (Neg) Urine Barbiturates (Neg) Ur Phencyclidine (PCP) (Neg) U Amphetamin/Meth Scrn (Neg) MDMA (Ecstasy) Screen (Neg) U Benzodiazepines Scrn (Neg) Ur Cocaine Metabolite (Neg) U Marijuana (THC) Screen (Neg) SARS-CoV-2 (PCR) (Negative) Influenza Type A (PCR) (Neg) Influenza Type B (PCR) (Neg) RSV (RT-PCR) (Neg) 09/19/23 09/19/23 09/19/23 Range/Units 20:20 20:17 20:00 WBC (4.8-10.8) K/ul RBC (4.20-5.40) M/uL Hgb (12.0-16.0) g/dl Hct (37.0-47.0) % MCV (80.0-100.0) fL MCH (25.0-34.0) pg MCHC (32.0-36.0) g/dL RDW Std Deviation (36.4-46.3) fL RDW Coeff of Mya (11.5-14.5) % Plt Count (130-400) K/uL MPV (9.4-12.4) fL Immature Gran % (Auto) % Neut % (Auto) % Lymph % (Auto) % [place] % (Auto) % Eos % (Auto) % Baso % (Auto) % Neut # (Auto) (1.40-6.50) K/uL Lymph # (Auto) (1.20-3.40) K/uL [place] # (Auto) (0.11-0.59) K/uL Eos # (Auto) (0.00-0.50) K/uL Baso # (Auto) (0.00-0.20) K/uL Immature Gran # (Auto) (0.01-0.20) K/uL VBG pH (7.36-7.41) VBG pCO2 (38-50) mmHg VBG pO2 mmHg VBG HCO3 mmol/L VBG O2 Saturation % VBG Base Excess mEq/L Sodium (136-145) mmol/L Potassium (3.5-5.1) mmol/L Chloride (98-107) mmol/L Carbon Dioxide (21-32) mmol/L Anion Gap (3-11) BUN (6-23) mg/dl Creatinine (0.6-1.2) mg/dl Est Cr Clr Drug Dosing ml/min Est GFR ( Amer) ml/min Est GFR (Non-Af Amer) ml/min BUN/Creatinine Ratio (10-20) Glucose (70-99(Fasting)) mg/dl POC Glucose 153 H (70-99) mg/dl Calcium (8.6-10.3) mg/dl Magnesium (1.7-2.4) mg/dl Total Bilirubin (0.2-1.0) mg/dl AST (13-39) U/L ALT (7-52) U/L Alkaline Phosphatase (34-104) U/L Troponin I High Sens (0-14) pg/ml B-Natriuretic Peptide 181 H (0-100) pg/ml Total Protein (6.0-8.3) gm/dl Albumin (3.4-5.0) gm/dl Globulin (2.5-4.0) gm/dl Albumin/Globulin Ratio (0.9-2) Urine Color Yellow Urine Appearance Clear (Clear) Urine pH 5.0 (4.5-7.5) Ur Specific [place] 1.012 (1.000-1.030) Urine Protein 2+ H (Negative) Urine Glucose (UA) Negative (Negative) Urine Ketones Negative (Negative) Urine Blood Trace H (Negative) Urine Nitrite Negative (Negative) Urine Bilirubin Negative (Negative) Urine Urobilinogen Negative (Negative) Ur Leukocyte Esterase Trace H (Negative) Urine WBC (Auto) 1-5 (0-5) /hpf Urine RBC (Auto) 10-30 H (0-4) /hpf U Hyaline Cast (Auto) >30 H (0-5) /lpf U Epithel Cells (Auto) >30 H (0-5) /lpf Urine Bacteria (Auto) Negative (Negative) Urine Yeast Budding A (None Prsent) Urine Opiates Screen Neg (Neg) Ur Methadone, Qual Neg (Neg) Urine Barbiturates Neg (Neg) Ur Phencyclidine (PCP) Neg (Neg) U Amphetamin/Meth Scrn Neg (Neg) MDMA (Ecstasy) Screen Neg (Neg) U Benzodiazepines Scrn Neg (Neg) Ur Cocaine Metabolite Neg (Neg) U Marijuana (THC) Screen Neg (Neg) SARS-CoV-2 (PCR) (Negative) Influenza Type A (PCR) (Neg) Influenza Type B (PCR) (Neg) RSV (RT-PCR) (Neg) 09/19/23 09/19/23 Range/Units 16:45 15:55 WBC 9.16 (4.8-10.8) K/ul RBC 3.82 L (4.20-5.40) M/uL Hgb 10.9 L (12.0-16.0) g/dl Hct 36.6 L (37.0-47.0) % MCV 95.8 (80.0-100.0) fL MCH 28.5 (25.0-34.0) pg MCHC 29.8 L (32.0-36.0) g/dL RDW Std Deviation 49.3 H (36.4-46.3) fL RDW Coeff of Mya 14.1 (11.5-14.5) % Plt Count 143 (130-400) K/uL MPV 12.5 H (9.4-12.4) fL Immature Gran % (Auto) 0.4 % Neut % (Auto) 74.5 % Lymph % (Auto) 16.4 % [place] % (Auto) 7.0 % Eos % (Auto) 0.9 % Baso % (Auto) 0.8 % Neut # (Auto) 6.83 H (1.40-6.50) K/uL Lymph # (Auto) 1.50 (1.20-3.40) K/uL [place] # (Auto) 0.64 H (0.11-0.59) K/uL Eos # (Auto) 0.08 (0.00-0.50) K/uL Baso # (Auto) 0.07 (0.00-0.20) K/uL Immature Gran # (Auto) 0.04 (0.01-0.20) K/uL VBG pH 7.34 L (7.36-7.41) VBG pCO2 98 H (38-50) mmHg VBG pO2 40 mmHg VBG HCO3 53 mmol/L VBG O2 Saturation 64.2 % VBG Base Excess 21.4 mEq/L Sodium 137 (136-145) mmol/L Potassium 5.3 H (3.5-5.1) mmol/L Chloride 90 L (98-107) mmol/L Carbon Dioxide 44 H* (21-32) mmol/L Anion Gap 3 (3-11) BUN 53 H (6-23) mg/dl Creatinine 1.64 H (0.6-1.2) mg/dl Est Cr Clr Drug Dosing 60.6 ml/min Est GFR ( Amer) 40.7 ml/min Est GFR (Non-Af Amer) 35.1 ml/min BUN/Creatinine Ratio 32.3 H (10-20) Glucose 178 H (70-99(Fasting)) mg/dl POC Glucose (70-99) mg/dl Calcium 8.9 (8.6-10.3) mg/dl Magnesium (1.7-2.4) mg/dl Total Bilirubin 0.5 (0.2-1.0) mg/dl AST 22 (13-39) U/L ALT 11 (7-52) U/L Alkaline Phosphatase 140 H (34-104) U/L Troponin I High Sens (0-14) pg/ml B-Natriuretic Peptide (0-100) pg/ml Total Protein 7.3 (6.0-8.3) gm/dl Albumin 3.5 (3.4-5.0) gm/dl Globulin 3.8 (2.5-4.0) gm/dl Albumin/Globulin Ratio 0.9 (0.9-2) Urine Color Urine Appearance (Clear) Urine pH (4.5-7.5) Ur Specific [place] (1.000-1.030) Urine Protein (Negative) Urine Glucose (UA) (Negative) Urine Ketones (Negative) Urine Blood (Negative) Urine Nitrite (Negative) Urine Bilirubin (Negative) Urine Urobilinogen (Negative) Ur Leukocyte Esterase (Negative) Urine WBC (Auto) (0-5) /hpf Urine RBC (Auto) (0-4) /hpf U Hyaline Cast (Auto) (0-5) /lpf U Epithel Cells (Auto) (0-5) /lpf Urine Bacteria (Auto) (Negative) Urine Yeast (None Prsent) Urine Opiates Screen (Neg) Ur Methadone, Qual (Neg) Urine Barbiturates (Neg) Ur Phencyclidine (PCP) (Neg) U Amphetamin/Meth Scrn (Neg) MDMA (Ecstasy) Screen (Neg) U Benzodiazepines Scrn (Neg) Ur Cocaine Metabolite (Neg) U Marijuana (THC) Screen (Neg) SARS-CoV-2 (PCR) NEGATIVE (Negative) Influenza Type A (PCR) Negative (Neg) Influenza Type B (PCR) Negative (Neg) RSV (RT-PCR) Negative (Neg) Medications Administered Current Inpatient Medications Acetaminophen (Acetaminophen 325 Mg Tab) 650 mg PO Q4H PRN PRN Reason: Pain or Fever Stop: 10/19/23 21:27 Aspirin (Aspirin 81 Mg Ectab) 81 mg PO QAM [facility] Stop: 10/20/23 08:59 Cyanocobalamin (Cyanocobalamin (B-12) 500 Mcg Tablet) 1,000 mcg PO DAILY [facility] Stop: 10/21/23 08:59 Dextrose (Dextrose 50% 50 Ml Syringe) 25 - 50 ml IV UD PRN; Protocol PRN Reason: Hypoglycemia Protocol Stop: 10/19/23 21:27 Ferrous Sulfate (Ferrous Sulfate 325 Mg Tab) 325 mg PO DAILY [facility] Stop: 10/21/23 08:59 Fluoxetine HCl (Fluoxetine Hcl 20 Mg Cap) 20 mg PO DAILY [facility] Stop: 10/21/23 08:59 Furosemide (Furosemide 40 Mg/4 Ml Vial) 80 mg IV [id number] [facility] Stop: 10/20/23 08:59 Glucagon (Glucagon For Inj 1 Mg Vial) 1 mg SQ UD PRN; Protocol PRN Reason: Hypoglycemia Protocol Stop: 10/19/23 21:27 Glucose (Glucose 10 Tab/Tube) 4 - 8 tab PO UD PRN; Protocol PRN Reason: Hypoglycemia Treatment Stop: 10/19/23 21:27 Glucose (Glucose 40% Gel 15 Gm Tube) 15 - 30 gm PO UD PRN; Protocol PRN Reason: Hypoglycemia Protocol Stop: 10/19/23 21:27 Heparin Sodium (Porcine) (Heparin Sod 5,000 Unit/0.5 Ml Vial) 7,500 units SQ Q12 [facility] Stop: 10/19/23 21:27 Last Admin: 09/19/23 22:33 Dose: 7,500 units Ceftriaxone Sodium 2,000 mg/ (Dextrose) 50 mls @ 100 mls/hr IV Q24H [facility]; Protocol Stop: 09/21/23 21:27 Last Infusion: 09/19/23 23:00 Dose: Infused Insulin Aspart (Insulin Aspart Per Unit Charge) 0 units SC ACHS [facility] Stop: 10/19/23 21:27 Last Admin: 09/19/23 22:42 Dose: Not Given Insulin Glargine (Lantus Per Unit Charge) 0 units SQ BID [facility]; Protocol Stop: 10/19/23 21:27 Last Admin: 09/19/23 22:38 Dose: 4 units Lactic Acid (Ammonium Lactate 12% Lotion 225 Gm Btl) 1 gm EXT BID [facility] Stop: 10/19/23 21:27 Last Admin: 09/19/23 22:32 Dose: 1 gm Miscellaneous (Carbohydrates For Hypoglycemia ) 15 - 30 gm PO UD PRN PRN Reason: Hypoglycemia Protocol Stop: 10/19/23 21:27 Nifedipine (Nifedipine Extended Rel 30 Mg Tabcr) 60 mg PO QAM [facility] Stop: 10/20/23 08:59 Ondansetron HCl (Ondansetron Inj 2 Mg/Ml 2 Ml Vial) 4 mg IV Q6H PRN PRN Reason: Nausea Stop: 10/19/23 21:27 Pantoprazole Sodium (Pantoprazole 40 Mg Tab) 40 mg PO DAILY [facility] Stop: 10/21/23 08:59 Polyethylene Glycol (Polyethylene (Miralax) 17 Gm Pack) 17 gm PO DAILY PRN PRN Reason: Constipation Stop: 10/19/23 21:27 (5) CKD (chronic kidney disease) stage 3, GFR 30-59 ml/min Chronic kidney disease stage 3 subtype: unspecified whether 3a or 3b Qualified Code(s): N18.30 - Chronic kidney disease, stage 3 unspecified (7) Type 2 diabetes mellitus, with long-term current use of insulin Diabetes mellitus complication status: without complication Qualified Code(s): E11.9 - Type 2 diabetes mellitus without complications; Z79.4 - nursing home (current) use of insulin
[2023-09-20] MEDS: ASPIRIN 81 MG ECTAB PO SCH (08:48)
[2023-09-20] MEDS: FUROSEMIDE 40 MG/4 ML VIAL IV SCH (08:51)
[2023-09-20] MEDS ORDERED: CYANOCOBALAMIN (B-12) 500 MCG TABLET PO SCH (09:00)
[2023-09-20] MEDS: NIFEdipine EXTENDED REL 30 MG TABCR PO SCH (12:17)
--- NOTE | 2023-09-20 14:36 | Nephrology Consultation ---
Date of Consultation September 20, 2023 Assessment & Plan (1) Right heart failure: acute on chronic; causes volume overload; also w/ plm HTN > current lasix dosing will not be sufficient for her; she has tolerance > will change to bumex 2 mg IV bid -strict I/O -Daily standing weight when able >once she is off clears, needs 1.5L FR and <2 gm daily Na diet > await further cardiology recs > ? role for pulmonary vasodilators > BB held d/t bradycardia (2) Carbon dioxide retention: this is what caused metabolic encephalopathy; whether from not using bipap or medications (gabapentin +/- zyprexa though only anirudh is new since last admission) difficult to say >imperative that she use bipap/cpap here and after d/c (3) Hypercarbia: from large obligate diuresis needs (4) CKD (chronic kidney disease) stage 3, GFR 30-59 ml/min: baseline renal function labile; usually mid to high ones. also has 2 gm proteinuria w/ negative serologic work up History of Present Illness Reason for Consultation: CKD Requesting Physician: Dr Weiner Attending Physician: Jessee Liu MD History of Present Illness 53 y/o F whom I'm asked to see for CKD was admitted yesterday evening with metabolic encephalopathy and hypercarbia in the setting of acute on chronic HFpEF. PMH includes insulin-dependent DM II w/ neuropathy, CKD III, HTN, HLD, chronic HFpEF, obesity hypoventilation syndrome/YVROSE, history of necrotizing fasciitis, left chronic heel ulcer, chronic metabolic alkalosis. Hospitalized here 07/04/2023-07/25/2023 for acute on chronic heart failure, DAHLIA on CKD III w/ massive diuresis and proteinuria w/u w/ negative serologies. Started keflex a few days [employer] for cellulitis. She follows w/ Dr Khanna in CKD clinic and saw him on 09/18 where concern for worsening volume overload noted > plan was to increase torsemide to 100 mg bid w/ metolazone 3X weekly at 5 mg and extra 40 mEq of K on top of standing K 20 mEq bid and follow weekly labs. he did review 09/15 labs from [facility] at that admission. Her VBG had pC02 98 and pt started on bipap in ER. She was started on lasix 80 mg IV bid and potassium was held d/t mild hyperkalemia. mental status has improved. pt denies orthopnea, shortness of breath, n/v/d. no new /worrisome voiding concerns. no f/c. edema had been worsening recently. does not use bipap/cpap at her OP facility she says "b/c I don't think they have them" but states would be willing to use them. Allergies Allergy/AdvReac Type Severity Reaction Status Date / Time No Known Allergies Allergy Unknown Verified 04/28/23 19:53 Home Medications Medication Instructions Recorded Confirmed Type aspirin 81 mg tablet,delayed 81 mg PO QAM 03/14/22 09/19/23 History release ferrous sulfate 325 mg (65 mg 325 mg PO DAILY 03/14/22 09/19/23 History iron) tablet cyanocobalamin (vitamin B-12) 1,000 mcg PO DAILY 03/13/23 09/19/23 History 1,000 mcg tablet (Vitamin B-12) fluoxetine 20 mg capsule (Prozac) 20 mg PO DAILY 07/04/23 09/19/23 History melatonin 3 mg tablet 3 mg PO HS 07/04/23 09/19/23 History pantoprazole 40 mg tablet,delayed 40 mg PO DAILY #30 tabs 07/24/23 09/19/23 Rx release potassium chloride 20 mEq 20 meq PO BID #60 tabs 07/24/23 09/19/23 Rx tablet,extended release(part/cryst) olanzapine 2.5 mg tablet 2.5 mg PO HS #30 tabs 07/25/23 09/19/23 Rx acetaminophen 325 mg tablet 650 mg PO Q6 PRN Fever Or Pain 09/19/23 09/19/23 History ammonium lactate 12 % lotion 1 applic topical BID 09/19/23 09/19/23 History carvedilol 12.5 mg tablet 6.25 mg PO BIDM 09/19/23 09/19/23 History cephalexin 500 mg capsule 500 mg PO Q8H 09/19/23 09/19/23 History cyclobenzaprine 5 mg tablet 2.5 mg PO Q8 PRN Muscle Spasm 09/19/23 09/19/23 History furosemide 100 mg/100 mL (1 mg/mL) 4 ml IV DAILY 09/19/23 09/19/23 History in 0.9 % sod chloride IV piggyback gabapentin 300 mg capsule 300 mg PO DAILY 09/19/23 09/19/23 History gabapentin 600 mg tablet 600 mg PO Q12 09/19/23 09/19/23 History hydralazine 25 mg tablet 25 mg PO TID 09/19/23 09/19/23 History insulin detemir U-100 100 unit/mL 14 unit subcut BID 09/19/23 09/19/23 History subcutaneous solution (Levemir U-100 Insulin) insulin lispro 100 unit/mL 9 unit subcut AC 09/19/23 09/19/23 History subcutaneous half-unit pen (Humalog Miah KwikPen (U-100)) nifedipine 60 mg tablet,extended 60 mg PO QAM 09/19/23 09/19/23 History release 24 hr (Procardia XL) ondansetron HCl 4 mg tablet 4 mg PO Q6H PRN Nausea And Vomiting 09/19/23 09/19/23 History torsemide 20 mg tablet 80 mg PO Q12H 09/19/23 09/19/23 History Patient History Medical History Chronic iron deficiency anemia CKD (chronic kidney disease) stage 3, GFR 30-59 ml/min Cellulitis of left lower extremity Anemia Personal history of diabetic foot ulcer Loss of protective sensation of skin of foot Type 2 diabetes mellitus with complications Type 2 diabetes mellitus, with long-term current use of insulin Diabetic peripheral neuropathy associated with type 2 diabetes mellitus Diabetes type 2, uncontrolled Vitamin D deficiency Dyslipidemia Back pain Xerosis cutis Varicose veins of both lower extremities Obesity Insomnia Hirsutism Fatigue Dysfunctional uterine bleeding Depression with anxiety Tobacco use HTN (hypertension) History of DVT (deep vein thrombosis) Surgical History History of incision and drainage left foot by Dr. Haq on 10-03-19. H/O tooth extraction History of cholecystectomy History of facial surgery History of nasal polypectomy History of endometrial ablation History of tubal ligation History of hysterectomy History of Family History Father Dyslipidemia Prostate cancer Diabetes Lung cancer Mother Lung cancer Hypothyroidism Brother Coronary heart disease Asthma Grandfather (Maternal) Myocardial infarction Grandmother (Maternal) Myocardial infarction Grandmother (Paternal) Breast cancer Diabetes Social History Smoking Status: Former smoker Tobacco Type: Cigarettes Hx Alcohol Use: No Hx Substance Use: No Preferred Language: [place] Communication Ability: Effective Geodetic Advisor Required: No Beliefs That Will Affect Care: None marital status: Single Current Living Situation: Rehab Current Living Situation Comment: [facility] Other Information That Helps Us Care for You: No Feels Safe at Home: Yes Safety Concerns: Feels Safe At This Time Assistive Devices: Hospital Bed, Walker and Wheelchair Review of Systems 2 Review of Systems: All systems reviewed & are unremarkable except as noted in HPI & below Physical Exam 2 Constitutional: well developed, + obese and cooperative Eyes: EOM intact bilaterally ENMT: Ears: no external ear abnormality Nose: no external nose abnormality Mouth: + dry oral mucous membranes Neck: no nuchal rigidity Respiratory: normal respiratory effort Auscultation: + diminished lung sounds Cardiovascular: Rate/Rhythm: regular rate and + bradycardic Extremities: + edema (2+) Gastrointestinal (Abdomen): Inspection/Auscultation: normal bowel sounds P ercussion/Palpation: abdomen soft; abdomen nontender Musculoskeletal: Extremities: strength 5/5 throughout Skin: no rashes, warm and dry Neurologic: jean baptiste, fluent speech, no tremor Psychiatric: Orientation: alert and oriented x 3 Results & Data Vital Signs (Past 12 Hours) Vital Signs Pulse Resp BP Pulse Ox O2 Del Method O2 Flow Rate FiO2 09/20/23 13:00 59 L 21 141/67 H 96 Nasal Cannula 09/20/23 11:00 60 18 147/79 H 97 Nasal Cannula 09/20/23 10:30 59 L 16 163/87 H 97 Nasal Cannula 09/20/23 10:00 13 154/103 H 97 Nasal Cannula 09/20/23 09:30 76 17 170/78 H 94 Nasal Cannula 09/20/23 09:11 109 H 20 150/79 H 96 Nasal Cannula 3 09/20/23 09:00 56 L 14 97 Nasal Cannula 3 09/20/23 08:30 51 L 15 127/66 96 Nasal Cannula 3 09/20/23 08:00 50 L 18 128/59 L 97 BiPAP 09/20/23 07:30 51 L 21 130/58 L 98 BiPAP 09/20/23 07:20 53 L 17 95 30 09/20/23 07:06 50 L 09/20/23 07:00 50 L 20 127/56 L 97 BiPAP 09/20/23 06:00 BiPAP 09/20/23 05:40 49 L 16 94 09/20/23 05:30 48 L 16 94 09/20/23 05:20 49 L 16 94 09/20/23 05:10 49 L 16 94 09/20/23 05:00 49 L 17 94 09/20/23 05:00 BiPAP 09/20/23 04:50 50 L 17 95 09/20/23 04:40 52 L 20 92 09/20/23 04:30 51 L 17 98 09/20/23 04:30 138/66 09/20/23 04:20 51 L 17 97 09/20/23 04:10 53 L 21 94 09/20/23 04:00 51 L 20 97 09/20/23 04:00 125/65 09/20/23 03:50 51 L 17 96 09/20/23 03:44 52 L 15 95 30 09/20/23 03:40 52 L 17 96 09/20/23 03:30 134/78 09/20/23 03:30 51 L 18 96 09/20/23 03:20 54 L 19 09/20/23 03:10 54 L 18 94 09/20/23 03:00 52 L 18 93 09/20/23 03:00 137/70 09/20/23 02:50 48 L 16 93 09/20/23 02:40 45 L 16 93 09/20/23 02:30 48 L 17 94 09/20/23 02:30 122/61 Laboratory Results 09/20/23 04:42 09/20/23 04:43 VBG reviewed Diagnostic Findings both CXR and head CT w/o acute process (1) Right heart failure Heart failure chronicity: acute on chronic Qualified Code(s): I50.813 - Acute on chronic right heart failure (4) CKD (chronic kidney disease) stage 3, GFR 30-59 ml/min Chronic kidney disease stage 3 subtype: unspecified whether 3a or 3b Qualified Code(s): N18.30 - Chronic kidney disease, stage 3 unspecified
--- NOTE | 2023-09-20 15:32 | Cardiology Consultation ---
Date of Consultation September 20, 2023 Assessment & Plan (1) Hypercapnic respiratory failure: (2) Acute on chronic heart failure with preserved ejection fraction (HFpEF): (3) Metabolic encephalopathy: (4) Morbid obesity: (5) Pickwickian syndrome: (6) Right heart failure: (7) CKD (chronic kidney disease) stage 3, GFR 30-59 ml/min: Plan Complex 53-year-old female with chronic right heart failure secondary to morbid obesity and hypoventilation syndrome. Past hospitalization JuneJuly 2023 with profound anasarca and right heart failure treated with aggressive diuresis successfully. Now presents with reaccumulation of at least 10 kg of fluid with additional hype rcapnic respiratory failure Recommendations: Appreciate nephrology input and diuretic management Hold carvedilol given resting bradycardia. May consider reintroduction at lower dosing as needed for blood pressure. Hypoventilation treatment mandated. Will require CPAP/BiPAP during hospitalization and post discharge If renal function and potassium levels allow we will anticipate adding spironolactone possible [facility] will follow History of Present Illness Reason for Consultation: Hypercarbic respiratory failure, diastolic/right heart failure Requesting Physician: Dr. Liu Attending Physician: Jessee Liu MD History of Present Illness Patient is a 53-year-old female with multiple hospitalizations in the past years time underlying issues include 1. Morbid obesity 2. Hypoventilation/pickwickian syndrome with chronic right heart failure 3. Chronic kidney disease 4.Type 2 diabetes mellitus 5. Longstanding hypertension Patient currently a resident of extended care facility after extended hospitalization with profound right heart failure and anasarca, discharge 07/25/2023 after extended stay. Patient referred this admission from facility due to obtundation and confusion. Presentation notable for marked hypercarbia with patient treated with positive pressure support ventilation with BiPAP overnight. At time of examination this morning patient improved answering questions. Does note increasing ankle edema and weight gain over the past multiple weeks. Chart reflects 10 kg weight gain Has not been using oxygen or ventilatory support Denies any bleeding issues. Recently treated for infection with oral antibiotic Currently without fevers or chills or cough No chest pain, tachypalpitations Allergies Allergy/AdvReac Type Severity Reaction Status Date / Time No Known Allergies Allergy Unknown Verified 04/28/23 19:53 Home Medications Medication Instructions Recorded Confirmed Type aspirin 81 mg tablet,delayed 81 mg PO QAM 03/14/22 09/19/23 History release ferrous sulfate 325 mg (65 mg 325 mg PO DAILY 03/14/22 09/19/23 History iron) tablet cyanocobalamin (vitamin B-12) 1,000 mcg PO DAILY 03/13/23 09/19/23 History 1,000 mcg tablet (Vitamin B-12) fluoxetine 20 mg capsule (Prozac) 20 mg PO DAILY 07/04/23 09/19/23 History melatonin 3 mg tablet 3 mg PO HS 07/04/23 09/19/23 History pantoprazole 40 mg tablet,delayed 40 mg PO DAILY #30 tabs 07/24/23 09/19/23 Rx release potassium chloride 20 mEq 20 meq PO BID #60 tabs 07/24/23 09/19/23 Rx tablet,extended release(part/cryst) olanzapine 2.5 mg tablet 2.5 mg PO HS #30 tabs 07/25/23 09/19/23 Rx acetaminophen 325 mg tablet 650 mg PO Q6 PRN Fever Or Pain 09/19/23 09/19/23 History ammonium lactate 12 % lotion 1 applic topical BID 09/19/23 09/19/23 History carvedilol 12.5 mg tablet 6.25 mg PO BIDM 09/19/23 09/19/23 History cephalexin 500 mg capsule 500 mg PO Q8H 09/19/23 09/19/23 History cyclobenzaprine 5 mg tablet 2.5 mg PO Q8 PRN Muscle Spasm 09/19/23 09/19/23 History furosemide 100 mg/100 mL (1 mg/mL) 4 ml IV DAILY 09/19/23 09/19/23 History in 0.9 % sod chloride IV piggyback gabapentin 300 mg capsule 300 mg PO DAILY 09/19/23 09/19/23 History gabapentin 600 mg tablet 600 mg PO Q12 09/19/23 09/19/23 History hydralazine 25 mg tablet 25 mg PO TID 09/19/23 09/19/23 History insulin detemir U-100 100 unit/mL 14 unit subcut BID 09/19/23 09/19/23 History subcutaneous solution (Levemir U-100 Insulin) insulin lispro 100 unit/mL 9 unit subcut AC 09/19/23 09/19/23 History subcutaneous half-unit pen (Humalog Miah KwikPen (U-100)) nifedipine 60 mg tablet,extended 60 mg PO QAM 09/19/23 09/19/23 History release 24 hr (Procardia XL) ondansetron HCl 4 mg tablet 4 mg PO Q6H PRN Nausea And Vomiting 09/19/23 09/19/23 History torsemide 20 mg tablet 80 mg PO Q12H 09/19/23 09/19/23 History Patient History Medical History (Updated 09/20/23 @ 15:46 by Mathieu Kern MD) Chronic iron deficiency anemia CKD (chronic kidney disease) stage 3, GFR 30-59 ml/min Cellulitis of left lower extremity Anemia Personal history of diabetic foot ulcer Loss of protective sensation of skin of foot Type 2 diabetes mellitus with complications Type 2 diabetes mellitus, with long-term current use of insulin Diabetic peripheral neuropathy associated with type 2 diabetes mellitus Diabetes type 2, uncontrolled Vitamin D deficiency Dyslipidemia Back pain Xerosis cutis Varicose veins of both lower extremities Obesity Insomnia Hirsutism Fatigue Dysfunctional uterine bleeding Depression with anxiety Tobacco use HTN (hypertension) History of DVT (deep vein thrombosis) Surgical History History of incision and drainage left foot by Dr. Haq on 10-03-19. H/O tooth extraction History of cholecystectomy History of facial surgery History of nasal polypectomy History of endometrial ablation History of tubal ligation History of hysterectomy History of Family History Father Dyslipidemia Prostate cancer Diabetes Lung cancer Mother Lung cancer Hypothyroidism Brother Coronary heart disease Asthma Grandfather (Maternal) Myocardial infarction Grandmother (Maternal) Myocardial infarction Grandmother (Paternal) Breast cancer Diabetes Social History Smoking Status: Former smoker Tobacco Type: Cigarettes Hx Alcohol Use: No Hx Substance Use: No Preferred Language: Maltese Communication Ability: Effective 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 Beliefs That Will Affect Care: None marital status: Single Current Living Situation: Rehab Current Living Situation Comment: [facility] Other Information That Helps Us Care for You: No Feels Safe at Home: Yes Safety Concerns: Feels Safe At This Time Assistive Devices: Walker Review of Systems Review of Systems: All systems reviewed & are unremarkable except as noted in HPI & below Results & Data Vital Signs (Past 12 Hours) Vital Signs Temp Pulse Pulse Resp BP BP Pulse Ox 09/20/23 14:55 36.7 C 55 L 18 141/76 H 99 09/20/23 13:00 59 L 21 141/67 H 96 09/20/23 11:00 60 18 147/79 H 97 09/20/23 10:30 59 L 16 163/87 H 97 09/20/23 10:00 13 154/103 H 97 09/20/23 09:30 76 17 170/78 H 94 09/20/23 09:11 109 H 20 150/79 H 96 09/20/23 09:00 56 L 14 97 09/20/23 08:30 51 L 15 127/66 96 09/20/23 08:00 50 L 18 128/59 L 97 09/20/23 07:30 51 L 21 130/58 L 98 09/20/23 07:20 53 L 17 95 09/20/23 07:06 50 L 09/20/23 07:00 50 L 20 127/56 L 97 09/20/23 06:00 09/20/23 05:40 49 L 16 94 09/20/23 05:30 48 L 16 94 09/20/23 05:20 49 L 16 94 09/20/23 05:10 49 L 16 94 09/20/23 05:00 49 L 17 94 09/20/23 05:00 09/20/23 04:50 50 L 17 95 09/20/23 04:40 52 L 20 92 09/20/23 04:30 51 L 17 98 09/20/23 04:30 138/66 09/20/23 04:20 51 L 17 97 09/20/23 04:10 53 L 21 94 09/20/23 04:00 51 L 20 97 09/20/23 04:00 125/65 09/20/23 03:50 51 L 17 96 09/20/23 03:44 52 L 15 95 09/20/23 03:40 52 L 17 96 O2 Del Method O2 Flow Rate FiO2 09/20/23 14:55 Nasal Cannula 3 09/20/23 13:00 Nasal Cannula 3 09/20/23 11:00 Nasal Cannula 3 09/20/23 10:30 Nasal Cannula 3 09/20/23 10:00 Nasal Cannula 3 09/20/23 09:30 Nasal Cannula 3 09/20/23 09:11 Nasal Cannula 3 09/20/23 09:00 Nasal Cannula 3 09/20/23 08:30 Nasal Cannula 3 09/20/23 08:00 BiPAP 09/20/23 07:30 BiPAP 09/20/23 07:20 30 09/20/23 07:06 09/20/23 07:00 BiPAP 09/20/23 06:00 BiPAP 09/20/23 05:40 09/20/23 05:30 09/20/23 05:20 09/20/23 05:10 09/20/23 05:00 09/20/23 05:00 BiPAP 09/20/23 04:50 09/20/23 04:40 09/20/23 04:30 09/20/23 04:30 09/20/23 04:20 09/20/23 04:10 09/20/23 04:00 09/20/23 04:00 09/20/23 03:50 09/20/23 03:44 30 09/20/23 03:40 Laboratory Results Laboratory Results - last 24 hr 09/19/23 09/19/23 09/19/23 15:55 16:45 20:00 WBC 9.16 RBC 3.82 L Hgb 10.9 L Hct 36.6 L MCV 95.8 MCH 28.5 MCHC 29.8 L RDW Std Deviation 49.3 H RDW Coeff of Mya 14.1 Plt Count 143 MPV 12.5 H Immature Gran % (Auto) 0.4 Neut % (Auto) 74.5 Lymph % (Auto) 16.4 [place] % (Auto) 7.0 Eos % (Auto) 0.9 Baso % (Auto) 0.8 Neut # (Auto) 6.83 H Lymph # (Auto) 1.50 [place] # (Auto) 0.64 H Eos # (Auto) 0.08 Baso # (Auto) 0.07 Immature Gran # (Auto) 0.04 VBG pH 7.34 L VBG pCO2 98 H VBG pO2 40 VBG HCO3 53 VBG O2 Saturation 64.2 VBG Base Excess 21.4 Sodium 137 Potassium 5.3 H Chloride 90 L Carbon Dioxide 44 H* Anion Gap 3 BUN 53 H Creatinine 1.64 H Est Cr Clr Drug Dosing 60.6 Est GFR ( Amer) 40.7 Est GFR (Non-Af Amer) 35.1 BUN/Creatinine Ratio 32.3 H Glucose 178 H POC Glucose Calcium 8.9 Magnesium Total Bilirubin 0.5 AST 22 ALT 11 Alkaline Phosphatase 140 H Troponin I High Sens B-Natriuretic Peptide 181 H Total Protein 7.3 Albumin 3.5 Globulin 3.8 Albumin/Globulin Ratio 0.9 Urine Color Urine Appearance Urine pH Ur Specific [place] Urine Protein Urine Glucose (UA) Urine Ketones Urine Blood Urine Nitrite Urine Bilirubin Urine Urobilinogen Ur Leukocyte Esterase Urine WBC (Auto) Urine RBC (Auto) U Hyaline Cast (Auto) U Epithel Cells (Auto) Urine Bacteria (Auto) Urine Yeast Urine Opiates Screen Ur Methadone, Qual Urine Barbiturates Ur Phencyclidine (PCP) U Amphetamin/Meth Scrn MDMA (Ecstasy) Screen U Benzodiazepines Scrn Ur Cocaine Metabolite U Marijuana (THC) Screen SARS-CoV-2 (PCR) NEGATIVE Influenza Type A (PCR) Negative Influenza Type B (PCR) Negative RSV (RT-PCR) Negative 09/19/23 09/19/23 09/19/23 20:17 20:20 22:25 WBC RBC Hgb Hct MCV MCH MCHC RDW Std Deviation RDW Coeff of Mya Plt Count MPV Immature Gran % (Auto) Neut % (Auto) Lymph % (Auto) [place] % (Auto) Eos % (Auto) Baso % (Auto) Neut # (Auto) Lymph # (Auto) [place] # (Auto) Eos # (Auto) Baso # (Auto) Immature Gran # (Auto) VBG pH VBG pCO2 VBG pO2 VBG HCO3 VBG O2 Saturation VBG Base Excess Sodium Potassium Chloride Carbon Dioxide Anion Gap BUN Creatinine Est Cr Clr Drug Dosing Est GFR ( Amer) Est GFR (Non-Af Amer) BUN/Creatinine Ratio Glucose POC Glucose 153 H Calcium Magnesium Total Bilirubin AST ALT Alkaline Phosphatase Troponin I High Sens 14.9 H B-Natriuretic Peptide Total Protein Albumin Globulin Albumin/Globulin Ratio Urine Color Yellow Urine Appearance Clear Urine pH 5.0 Ur Specific [place] 1.012 Urine Protein 2+ H Urine Glucose (UA) Negative Urine Ketones Negative Urine Blood Trace H Urine Nitrite Negative Urine Bilirubin Negative Urine Urobilinogen Negative Ur Leukocyte Esterase Trace H Urine WBC (Auto) 1-5 Urine RBC (Auto) 10-30 H U Hyaline Cast (Auto) >30 H U Epithel Cells (Auto) >30 H Urine Bacteria (Auto) Negative Urine Yeast Budding A Urine Opiates Screen Neg Ur Methadone, Qual Neg Urine Barbiturates Neg Ur Phencyclidine (PCP) Neg U Amphetamin/Meth Scrn Neg MDMA (Ecstasy) Screen Neg U Benzodiazepines Scrn Neg Ur Cocaine Metabolite Neg U Marijuana (THC) Screen Neg SARS-CoV-2 (PCR) Influenza Type A (PCR) Influenza Type B (PCR) RSV (RT-PCR) 09/19/23 09/19/23 09/20/23 22:27 Unknown 04:42 WBC 6.00 RBC 3.37 L Hgb 9.5 L Hct 31.9 L MCV 94.7 MCH 28.2 MCHC 29.8 L RDW Std Deviation 49.2 H RDW Coeff of Mya 14.4 Plt Count 140 MPV 12.0 Immature Gran % (Auto) Neut % (Auto) Lymph % (Auto) [place] % (Auto) Eos % (Auto) Baso % (Auto) Neut # (Auto) Lymph # (Auto) [place] # (Auto) Eos # (Auto) Baso # (Auto) Immature Gran # (Auto) VBG pH 7.40 VBG pCO2 81 H VBG pO2 53 VBG HCO3 50 VBG O2 Saturation 84.8 VBG Base Excess 20.6 Sodium 138 Potassium 4.7 Chloride 92 L Carbon Dioxide 44 H* Anion Gap 2 L BUN 53 H Creatinine 1.64 H Est Cr Clr Drug Dosing 60.6 Est GFR ( Amer) 40.7 Est GFR (Non-Af Amer) 35.1 BUN/Creatinine Ratio 32.3 H Glucose 143 H POC Glucose 139 H Calcium 8.5 L Magnesium Total Bilirubin AST ALT Alkaline Phosphatase Troponin I High Sens 17.4 H B-Natriuretic Peptide Total Protein Albumin Globulin Albumin/Globulin Ratio Urine Color Urine Appearance Urine pH Ur Specific [place] Urine Protein Urine Glucose (UA) Urine Ketones Urine Blood Urine Nitrite Urine Bilirubin Urine Urobilinogen Ur Leukocyte Esterase Urine WBC (Auto) Urine RBC (Auto) U Hyaline Cast (Auto) U Epithel Cells (Auto) Urine Bacteria (Auto) Urine Yeast Urine Opiates Screen Ur Methadone, Qual Urine Barbiturates Ur Phencyclidine (PCP) U Amphetamin/Meth Scrn MDMA (Ecstasy) Screen U Benzodiazepines Scrn Ur Cocaine Metabolite U Marijuana (THC) Screen SARS-CoV-2 (PCR) Influenza Type A (PCR) Influenza Type B (PCR) RSV (RT-PCR) 09/20/23 09/20/23 09/20/23 04:43 06:04 08:54 WBC RBC Hgb Hct MCV MCH MCHC RDW Std Deviation RDW Coeff of Mya Plt Count MPV Immature Gran % (Auto) Neut % (Auto) Lymph % (Auto) [place] % (Auto) Eos % (Auto) Baso % (Auto) Neut # (Auto) Lymph # (Auto) [place] # (Auto) Eos # (Auto) Baso # (Auto) Immature Gran # (Auto) VBG pH 7.45 H VBG pCO2 73 H VBG pO2 54 VBG HCO3 51 VBG O2 Saturation 87.7 VBG Base Excess 22.1 Sodium 140 Potassium 4.2 Chloride 92 L Carbon Dioxide 41 H* Anion Gap 7 BUN 56 H Creatinine 1.50 H Est Cr Clr Drug Dosing 66.3 Est GFR ( Amer) 45.3 Est GFR (Non-Af Amer) 39.1 BUN/Creatinine Ratio 37.3 H Glucose 113 H POC Glucose 116 H 120 H Calcium 8.7 Magnesium 2.0 Total Bilirubin AST ALT Alkaline Phosphatase Troponin I High Sens 16.4 H B-Natriuretic Peptide Total Protein Albumin Globulin Albumin/Globulin Ratio Urine Color Urine Appearance Urine pH Ur Specific [place] Urine Protein Urine Glucose (UA) Urine Ketones Urine Blood Urine Nitrite Urine Bilirubin Urine Urobilinogen Ur Leukocyte Esterase Urine WBC (Auto) Urine RBC (Auto) U Hyaline Cast (Auto) U Epithel Cells (Auto) Urine Bacteria (Auto) Urine Yeast Urine Opiates Screen Ur Methadone, Qual Urine Barbiturates Ur Phencyclidine (PCP) U Amphetamin/Meth Scrn MDMA (Ecstasy) Screen U Benzodiazepines Scrn Ur Cocaine Metabolite U Marijuana (THC) Screen SARS-CoV-2 (PCR) Influenza Type A (PCR) Influenza Type B (PCR) RSV (RT-PCR) 09/20/23 12:57 WBC RBC Hgb Hct MCV MCH MCHC RDW Std Deviation RDW Coeff of Mya Plt Count MPV Immature Gran % (Auto) Neut % (Auto) Lymph % (Auto) [place] % (Auto) Eos % (Auto) Baso % (Auto) Neut # (Auto) Lymph # (Auto) [place] # (Auto) Eos # (Auto) Baso # (Auto) Immature Gran # (Auto) VBG pH VBG pCO2 VBG pO2 VBG HCO3 VBG O2 Saturation VBG Base Excess Sodium Potassium Chloride Carbon Dioxide Anion Gap BUN Creatinine Est Cr Clr Drug Dosing Est GFR ( Amer) Est GFR (Non-Af Amer) BUN/Creatinine Ratio Glucose POC Glucose 113 H Calcium Magnesium Total Bilirubin AST ALT Alkaline Phosphatase Troponin I High Sens B-Natriuretic Peptide Total Protein Albumin Globulin Albumin/Globulin Ratio Urine Color Urine Appearance Urine pH Ur Specific [place] Urine Protein Urine Glucose (UA) Urine Ketones Urine Blood Urine Nitrite Urine Bilirubin Urine Urobilinogen Ur Leukocyte Esterase Urine WBC (Auto) Urine RBC (Auto) U Hyaline Cast (Auto) U Epithel Cells (Auto) Urine Bacteria (Auto) Urine Yeast Urine Opiates Screen Ur Methadone, Qual Urine Barbiturates Ur Phencyclidine (PCP) U Amphetamin/Meth Scrn MDMA (Ecstasy) Screen U Benzodiazepines Scrn Ur Cocaine Metabolite U Marijuana (THC) Screen SARS-CoV-2 (PCR) Influenza Type A (PCR) Influenza Type B (PCR) RSV (RT-PCR) ECG Additional Comments: EKG 09/19/2023 Sinus bradycardia at 50 bpm with right bundle branch block configuration (6) Right heart failure Heart failure chronicity: acute on chronic Qualified Code(s): I50.813 - Acute on chronic right heart failure (7) CKD (chronic kidney disease) stage 3, GFR 30-59 ml/min Chronic kidney disease stage 3 subtype: unspecified whether 3a or 3b Qualified Code(s): N18.30 - Chronic kidney disease, stage 3 unspecified
--- NOTE | 2023-09-20 22:26 | Electrocardiogram Report ---
Test Reason : Blood Pressure : / mmHG Vent. Rate : 050 BPM Atrial Rate : 050 BPM P-R Int : 156 ms QRS Dur : 138 ms QT Int : 490 ms P-R-T Axes : 012 011 026 degrees QTc Int : 446 ms Sinus bradycardia Right bundle branch block Abnormal ECG When compared with ECG of 09-JUL-2023 12:45, Vent. rate has decreased BY 26 BPM T wave inversion less evident in Anterior leads Confirmed by Abilio Means ([id number]) on 09/20/2023 10:26:29 PM Referred By: Confirmed By:Abilio Means
[2023-09-21 09:07] LABS: Hematocrit (blood only) 35.3 % (37.0-47.0); Hemoglobin 10.7 g/dl (12.0-16.0); Mean Corpuscular Hemoglobin 28.4 pg (25.0-34.0); Mean Corpuscular Hgb Conc 30.3 g/dL (32.0-36.0); Mean Corpuscular Volume 93.6 fL (80.0-100.0); Mean Platelet Volume 12.5 fL (9.4-12.4); Platelet Count 153 K/uL (130-400); RDW Coefficient of Variation 14.4 % (11.5-14.5); RDW Standard Deviation 49.1 fL (36.4-46.3); Red Blood Count 3.77 M/uL (4.20-5.40); White Blood Count 5.53 K/ul (4.8-10.8)
[2023-09-21 09:33] LABS: Albumin Level 3.6 gm/dl (3.4-5.0); BUN Creatinine Ratio 39.8 (10-20); Bilirubin,Total 0.5 mg/dl (0.2-1.0); Calcium 9.1 mg/dl (8.6-10.3); Creatinine Clr Calc Pharmacy 78.1 ml/min; Est GFR (African American) 57.6 ml/min; Est GFR (Non-African American) 49.7 ml/min; Globulin 3.5 gm/dl (2.5-4.0); Potassium 4.1 mmol/L (3.5-5.1); Total Protein 7.1 gm/dl (6.0-8.3)
[2023-09-21] MEDS: PANTOprazole 40 MG TAB PO SCH (09:34)
[2023-09-21] MEDS: FLUoxetine HCL 20 MG CAP PO SCH (09:34)
[2023-09-21] MEDS: FERROUS SULFATE 325 MG TAB PO SCH (09:34)
[2023-09-21] MEDS: CYANOCOBALAMIN (B-12) 500 MCG TABLET PO SCH (09:34)
[2023-09-21] MEDS: BUMETANIDE 2 MG in SYRINGE 0 ML IV SCH (09:35)
--- NOTE | 2023-09-21 09:36 | Hospitalist Progress Note ---
Date of Service September 21, 2023 Assessment & Plan (1) Metabolic encephalopathy: (2) Hypercarbia: Plan: Patient is 53-year-old female with PMH insulin-dependent DM II, diabetic neuropathy, CKD III, HTN, HLD, chronic HFpEF, morbid obesity, history necrotizing fasciitis, bilateral lower extremity lymphedema, left chronic heel ulcer, iron deficiency anemia, and others listed below presented to ER from [facility] for reported altered mental status and shortness of breath. Today outpatient labs with elevated CO2. Patient presented to ER and was lethargic. In ER patient was afebrile, was 96% on 3 L nasal cannula. During my evaluation patient appears comfortable on BiPAP. She awakens to voice and light touch but not conversant. Initial VBG pH: 7.34, pCO2: 98, HCO3: 53. Repeat VBG 2 hours after BiPAP placed: pH: 7.4, pCO2: 81. Vitals P: 51, R: 19, BP 129/56, 97% on BiPAP No leukocytosis. Negative influenza, RSV, SARS-CoV-2 PCR CXR: No acute abnormalities and in particular no radiographic evidence of pneumonia. Likely metabolic encephalopathy secondary to hypercarbia. Suspect OHS CT head negative UA, urine drug screen negat. Continue BiPAP CBC, BMP am (3) Acute on chronic heart failure with preserved ejection fraction (HFpEF): Plan: History Echo 07/05/2023: EF: 55-60%, grade 1 diastolic dysfunction, right ventricle severely dilated, right ventricular systolic function mildly reduced, severe tricuspid regurgitation, moderate pulmonary hypertension Suspect acute on chronic CHF. Volume status difficult to assess with body habitus In ER given 80 mg Lasix IV BNP 181, troponin x3 14-17. EKG sinus bradycardia, RBBB Hold home torsemide 80 mg twice daily Heaton catheter. Monitor I's and O's, daily weights. low-sodium diet. FR 1.5 Cardiology consulted - hold coreg for now, cont. w/ diuresis, need for bipap Discussed w/ nephrology - switched lasix to bumex (4) Hyperkalemia: Plan: K: 5.3 Hold home potassium supplement monitor (5) CKD (chronic kidney disease) stage 3, GFR 30-59 ml/min: Plan: History of progressive CKD Cr: 1.6. Recent baseline~1.4. Recent DAHLIA Monitor renal functions, avoid nephrotoxic agents when possible Nephrology consulted - diuresing - on bumex monitor BMP (6) HTN (hypertension): Plan: Stable Hold carvedilol with current bradycardia hydralazine prn for HTN Continue nifedipine (7) Type 2 diabetes mellitus, with long-term current use of insulin: Plan: A1c: 7.7 on 08/25/2023 Continue basal bolus insulin (8) Lymphedema of both lower extremities: Plan: Patient was started on Keflex outpatient for reported leg cellulitis started on 09/15/2023 Currently does not appear cellulitic Placed on Rocephin on admission for now, cont. to monitor (9) Chronic iron deficiency anemia: Plan: Hgb: 10.9. Baseline 9-10 Continue iron supplement (10) Neuropathy: Plan: Chronic neuropathy Hold gabapentin with altered mental status (11) Depression with anxiety: Plan: Hold olanzapine for now with altered mental status Continue Prozac DVT Prophylaxis Heparin SQ Full Code as per patient POLST form Follows with Dr Mayra Holley for routine care Admission and Anticipated Discharge Date Admission Date: September 19, 2023 Subjective Pt seen in follow up of altered mental status, likely from hypercarbia. poss. leg cellulitis was placed on bipap in ED, started on IV lasix cardiology and nephrology consulted Currently patient is sitting up in bed, on supplemental oxygen, she is awake alert and able to answer appropriately Tells me she has been feeling groggy for past few days before coming to the hospital. Says that she was having some muscle twitches and was given muscle relaxer, which made her feel quite off. Not sure if this was contributing to her hypercarbia. Presented with increased volume status. Currently denies any fever chills chest pain shortness of breath abdominal pain nausea vomiting. Per RN patient had diarrhea, C. difficile - negative. Review of Systems Review of Systems: All systems reviewed & are unremarkable except as noted in Subjective Physical Exam Physical Exam: General: morbidly obese F in NAD, on suppl. O2 Head: normocephalic, atraumatic Eyes: EOM's intact, conjunctiva non-injected, anicteric ENT: normal inspection external ears, nose, mucous membranes moist Neck: supple Lungs: no respiratory distress, ctab anteriorly CV: RRR, +2-3 LE edema b/l Abd: soft, obese, normal BS, no apparent tenderness to palpation Ext: moves extremities Neuro: Awake, alert, answers appropriately, speech fluent, no facial asymmetry, moves extremities Skin: warm, dry, BLE +dry skin with slight erythema without significant warmth Results & Data Results & Data Vital Signs (Past 12 Hours) Vital Signs Temp Pulse Pulse Pulse Resp BP BP 09/21/23 07:21 36.5 C 63 16 157/77 H 09/21/23 03:05 36.7 C 55 L 18 159/82 H 09/21/23 02:59 53 L 16 09/21/23 00:42 59 L 24 09/20/23 23:00 09/20/23 22:23 37 C 62 18 156/81 H Pulse Ox Pulse Ox O2 Del Method O2 Del Method O2 Flow Rate FiO2 09/21/23 07:21 99 Nasal Cannula 2 09/21/23 03:05 96 BiPAP 09/21/23 02:59 95 30 09/21/23 00:42 96 30 09/20/23 23:00 98 Room Air 09/20/23 22:23 97 Room Air Laboratory Results 09/21/23 09/21/23 09/20/23 Range/Units 08:12 07:23 20:21 WBC 5.53 (4.8-10.8) K/ul RBC 3.77 L (4.20-5.40) M/uL Hgb 10.7 L (12.0-16.0) g/dl Hct 35.3 L (37.0-47.0) % MCV 93.6 (80.0-100.0) fL MCH 28.4 (25.0-34.0) pg MCHC 30.3 L (32.0-36.0) g/dL RDW Std Deviation 49.1 H (36.4-46.3) fL RDW Coeff of Mya 14.4 (11.5-14.5) % Plt Count 153 (130-400) K/uL MPV 12.5 H (9.4-12.4) fL Sodium 142 (136-145) mmol/L Potassium 4.1 (3.5-5.1) mmol/L Chloride 93 L (98-107) mmol/L Carbon Dioxide 44 H* (21-32) mmol/L Anion Gap 5 (3-11) BUN 49 H (6-23) mg/dl Creatinine 1.23 H (0.6-1.2) mg/dl Est Cr Clr Drug Dosing 78.1 ml/min Est GFR ( Amer) 57.6 ml/min Est GFR (Non-Af Amer) 49.7 ml/min BUN/Creatinine Ratio 39.8 H (10-20) Glucose 99 (70-99(Fasting)) mg/dl POC Glucose 92 121 H (70-99) mg/dl Calcium 9.1 (8.6-10.3) mg/dl Phosphorus 4.0 (2.5-4.9) mg/dl Magnesium 2.0 (1.7-2.4) mg/dl Total Bilirubin 0.5 (0.2-1.0) mg/dl AST 15 (13-39) U/L ALT 9 (7-52) U/L Alkaline Phosphatase 124 H (34-104) U/L Total Protein 7.1 (6.0-8.3) gm/dl Albumin 3.6 (3.4-5.0) gm/dl Globulin 3.5 (2.5-4.0) gm/dl Albumin/Globulin Ratio 1.0 (0.9-2) TSH Pending Stl C. diff Tox B Gene (Neg) 09/20/23 09/20/23 09/20/23 Range/Units 18:00 16:40 12:57 WBC (4.8-10.8) K/ul RBC (4.20-5.40) M/uL Hgb (12.0-16.0) g/dl Hct (37.0-47.0) % MCV (80.0-100.0) fL MCH (25.0-34.0) pg MCHC (32.0-36.0) g/dL RDW Std Deviation (36.4-46.3) fL RDW Coeff of Mya (11.5-14.5) % Plt Count (130-400) K/uL MPV (9.4-12.4) fL Sodium (136-145) mmol/L Potassium (3.5-5.1) mmol/L Chloride (98-107) mmol/L Carbon Dioxide (21-32) mmol/L Anion Gap (3-11) BUN (6-23) mg/dl Creatinine (0.6-1.2) mg/dl Est Cr Clr Drug Dosing ml/min Est GFR ( Amer) ml/min Est GFR (Non-Af Amer) ml/min BUN/Creatinine Ratio (10-20) Glucose (70-99(Fasting)) mg/dl POC Glucose 145 H 113 H (70-99) mg/dl Calcium (8.6-10.3) mg/dl Phosphorus (2.5-4.9) mg/dl Magnesium (1.7-2.4) mg/dl Total Bilirubin (0.2-1.0) mg/dl AST (13-39) U/L ALT (7-52) U/L Alkaline Phosphatase (34-104) U/L Total Protein (6.0-8.3) gm/dl Albumin (3.4-5.0) gm/dl Globulin (2.5-4.0) gm/dl Albumin/Globulin Ratio (0.9-2) TSH Stl C. diff Tox B Gene Negative Cdiff Gene (Neg) Medications Administered Current Inpatient Medications Acetaminophen (Acetaminophen 325 Mg Tab) 650 mg PO Q4H PRN PRN Reason: Pain or Fever Stop: 10/19/23 21:27 Aspirin (Aspirin 81 Mg Ectab) 81 mg PO QAM MOHAMUD Stop: 10/20/23 08:59 Last Admin: 09/20/23 08:48 Dose: 81 mg Cyanocobalamin (Cyanocobalamin (B-12) 500 Mcg Tablet) 1,000 mcg PO DAILY MOHAMUD Stop: 10/21/23 08:59 Dextrose (Dextrose 50% 50 Ml Syringe) 25 - 50 ml IV UD PRN; Protocol PRN Reason: Hypoglycemia Protocol Stop: 10/19/23 21:27 Ferrous Sulfate (Ferrous Sulfate 325 Mg Tab) 325 mg PO DAILY MOHAMUD Stop: 10/21/23 08:59 Fluoxetine HCl (Fluoxetine Hcl 20 Mg Cap) 20 mg PO DAILY MOHAMUD Stop: 10/21/23 08:59 Glucagon (Glucagon For Inj 1 Mg Vial) 1 mg SQ UD PRN; Protocol PRN Reason: Hypoglycemia Protocol Stop: 10/19/23 21:27 Glucose (Glucose 10 Tab/Tube) 4 - 8 tab PO UD PRN; Protocol PRN Reason: Hypoglycemia Treatment Stop: 10/19/23 21:27 Glucose (Glucose 40% Gel 15 Gm Tube) 15 - 30 gm PO UD PRN; Protocol PRN Reason: Hypoglycemia Protocol Stop: 10/19/23 21:27 Heparin Sodium (Porcine) (Heparin Sod 5,000 Unit/0.5 Ml Vial) 7,500 units SQ Q12 [facility] Stop: 10/19/23 21:27 Last Admin: 09/20/23 22:11 Dose: 7,500 units Ceftriaxone Sodium 2,000 mg/ (Dextrose) 50 mls @ 100 mls/hr IV Q24H [facility]; Protocol Stop: 09/21/23 21:27 Last Infusion: 09/20/23 23:31 Dose: Infused Bumetanide 2 mg/ Syringe 8 mls @ 4 mls/min IV BID@0900,1700 [facility] Stop: 10/21/23 08:59 Insulin Aspart (Insulin Aspart Per Unit Charge) 0 units SC ACHS [facility] Stop: 10/19/23 21:27 Last Admin: 09/20/23 22:14 Dose: Not Given Insulin Glargine (Lantus Per Unit Charge) 0 units SQ BID [facility]; Protocol Stop: 10/19/23 21:27 Last Admin: 09/20/23 22:32 Dose: 7 units Lactic Acid (Ammonium Lactate 12% Lotion 225 Gm Btl) 1 gm EXT BID [facility] Stop: 10/19/23 21:27 Last Admin: 09/21/23 01:02 Dose: Not Given Miscellaneous (Carbohydrates For Hypoglycemia ) 15 - 30 gm PO UD PRN PRN Reason: Hypoglycemia Protocol Stop: 10/19/23 21:27 Nifedipine (Nifedipine Extended Rel 30 Mg Tabcr) 60 mg PO QAM [facility] Stop: 10/20/23 08:59 Last Admin: 09/20/23 12:17 Dose: Not Given Ondansetron HCl (Ondansetron Inj 2 Mg/Ml 2 Ml Vial) 4 mg IV Q6H PRN PRN Reason: Nausea Stop: 10/19/23 21:27 Pantoprazole Sodium (Pantoprazole 40 Mg Tab) 40 mg PO DAILY [facility] Stop: 10/21/23 08:59 Polyethylene Glycol (Polyethylene (Miralax) 17 Gm Pack) 17 gm PO DAILY PRN PRN Reason: Constipation Stop: 10/19/23 21:27 (5) CKD (chronic kidney disease) stage 3, GFR 30-59 ml/min Chronic kidney disease stage 3 subtype: unspecified whether 3a or 3b Qualified Code(s): N18.30 - Chronic kidney disease, stage 3 unspecified (7) Type 2 diabetes mellitus, with long-term current use of insulin Diabetes mellitus complication status: without complication Qualified Code(s): E11.9 - Type 2 diabetes mellitus without complications; Z79.4 - correction (current) use of insulin
[2023-09-21 09:47] LABS: Thyroid Stimulating Hormone 5.071 uIu/ml (0.300-4.500)
[2023-09-21 10:26] LABS: T4 Free Thyroxine 1.09 ng/dl (0.61-1.60)
--- NOTE | 2023-09-21 12:49 | Nephrology Progress Note ---
Date of Service September 21, 2023 Assessment & Plan (1) Right heart failure: Plan: acute on chronic; causes volume overload; also w/ plm HTN > cont bumex 2 mg IV bid -strict I/O -Daily standing weight when able > tells team she's not stood or ambulated since July; reasons unclear>> PT/OT eval >continue 1.5L FR and <2 gm daily Na diet > ? role for pulmonary vasodilators > BB held d/t bradycardia (2) Carbon dioxide retention: Plan: this is what caused metabolic encephalopathy; whether from not using bipap or medications (gabapentin +/- zyprexa though only anirudh is new since last admission) difficult to say >imperative that she use bipap/cpap here and after d/c (3) Hypercarbia: Plan: from large obligate diuresis needs (4) CKD (chronic kidney disease) stage 3, GFR 30-59 ml/min: Plan: baseline renal function labile; usually mid to high ones. also has 2 gm proteinuria w/ negative serologic work up. currently at baseline w/ acceptable chemistries despite challenging hypercarbia and with fluid over Admission and Anticipated Discharge Date Admission Date: September 19, 2023 Subjective used bipap overnight x 5 hrs; no sob, no pain, no n/v, no further AMS Review of Systems 2 Review of Systems: All systems reviewed & are unremarkable except as noted in Subjective Physical Exam 2 Constitutional: well developed, + obese and cooperative Eyes: EOM intact bilaterally ENMT: Ears: no external ear abnormality Nose: no external nose abnormality Mouth: + dry oral mucous membranes Neck: no nuchal rigidity Respiratory: normal respiratory effort Auscultation: + diminished lung sounds Cardiovascular: Rate/Rhythm: regular rate and + bradycardic Extremities: + edema (2+) Gastrointestinal (Abdomen): Inspection/Auscultation: normal bowel sounds P ercussion/Palpation: abdomen soft; abdomen nontender Musculoskeletal: Extremities: strength 5/5 throughout Skin: no rashes, warm and dry Psychiatric: Orientation: alert and oriented x 3 Results & Data Vital Signs (Past 12 Hours) Vital Signs Temp Pulse Pulse Pulse Resp BP Pulse Ox 09/21/23 12:15 37.0 C 66 18 150/80 H 98 09/21/23 07:21 36.5 C 63 16 157/77 H 99 09/21/23 03:05 36.7 C 55 L 18 159/82 H 96 09/21/23 02:59 53 L 16 95 O2 Del Method O2 Flow Rate FiO2 09/21/23 12:15 Nasal Cannula 09/21/23 07:21 Nasal Cannula 2 09/21/23 03:05 BiPAP 09/21/23 02:59 30 Laboratory Results 09/21/23 08:12 09/21/23 08:12 (1) Right heart failure Heart failure chronicity: acute on chronic Qualified Code(s): I50.813 - Acute on chronic right heart failure (4) CKD (chronic kidney disease) stage 3, GFR 30-59 ml/min Chronic kidney disease stage 3 subtype: unspecified whether 3a or 3b Qualified Code(s): N18.30 - Chronic kidney disease, stage 3 unspecified
--- NOTE | 2023-09-21 13:25 | Electrocardiogram Report ---
Test Reason : Blood Pressure : / mmHG Vent. Rate : 060 BPM Atrial Rate : 060 BPM P-R Int : 162 ms QRS Dur : 140 ms QT Int : 470 ms P-R-T Axes : 069 017 040 degrees QTc Int : 470 ms Normal sinus rhythm Right bundle branch block Abnormal ECG When compared with ECG of 19-SEP-2023 15:33, No significant change was found Confirmed by Kirby Melchor [id number] on 09/21/2023 1:24:30 PM Referred By: REFERRED SELF Confirmed By:Kirby Melchor
--- NOTE | 2023-09-21 14:51 | Cardiology Progress Note ---
Date of Service September 21, 2023 Assessment & Plan (1) Hypercapnic respiratory failure: (2) Acute on chronic heart failure with preserved ejection fraction (HFpEF): (3) Metabolic encephalopathy: (4) Morbid obesity: (5) Pickwickian syndrome: (6) Right heart failure: (7) CKD (chronic kidney disease) stage 3, GFR 30-59 ml/min: Plan Complex 53-year-old female with chronic right heart failure secondary to morbid obesity and hypoventilation syndrome. Past hospitalization JuneJuly 2023 with profound anasarca and right heart failure treated with aggressive diuresis successfully. Now presents with reaccumulation of at least 10 kg of fluid with additional hypercapnic respiratory failure Recommendations: Appreciate nephrology input and diuretic management Hold carvedilol given resting bradycardia. May consider reintroduction at lower dosing as needed for blood pressure. Hypoventilation treatment mandated. Will require CPAP/BiPAP during hospitalization and post discharge If renal function and potassium levels allow we will anticipate adding spironolactone possible [facility] will follow 09/21/2023 Impression: Hypercapnic respiratory failure secondary to hypoventilation/pickwickian syndrome. Chronic right heart failure past dilated right ventricle and right atrium, elevated pulmonary pressures on echocardiogram June 2023 Continue diuresis. Once again discussed mandated need for respiratory support at night Consider repeat echocardiogram once volume status improved Assess if renal function and past potassium levels allow spironolactone and/or Jardiance Admission and Anticipated Discharge Date Admission Date: September 19, 2023 Subjective Patient was seen and personally examined. Brighter this morning. Less lethargy. Brisk diuresis overnight greater than 3 L. Was able to use BiPAP most of the night last night with good tolerance. No productive cough no chest pains. Review of Systems Review of Systems: All systems reviewed & are unremarkable except as noted in Subjective Physical Exam Constitutional: + morbidly obese; no acute distress Eyes: PERRL, conjunctivae normal, anicteric sclerae ENMT: external ear and nose normal, oropharynx normal Neck: trachea midline, no thyromegaly Respiratory: Auscultation: + diminished lung sounds Cardiovascular: Rate/Rhythm: regular rate and regular rhythm Heart Sounds: normal S1 and normal S2 Vessels: no JVD Extremities: + edema (2-3+) Results & Data Vital Signs (Past 12 Hours) Vital Signs Temp Pulse Pulse Pulse Resp BP Pulse Ox 09/21/23 12:15 37.0 C 66 18 150/80 H 98 09/21/23 09:45 57 L 09/21/23 07:21 36.5 C 63 16 157/77 H 99 09/21/23 03:05 36.7 C 55 L 18 159/82 H 96 09/21/23 02:59 53 L 16 95 O2 Del Method O2 Flow Rate FiO2 09/21/23 12:15 Nasal Cannula 09/21/23 09:45 09/21/23 07:21 Nasal Cannula 2 09/21/23 03:05 BiPAP 09/21/23 02:59 30 Laboratory Results Laboratory Results - last 24 hr 09/20/23 09/20/23 09/20/23 16:40 18:00 20:21 WBC RBC Hgb Hct MCV MCH MCHC RDW Std Deviation RDW Coeff of Mya Plt Count MPV Sodium Potassium Chloride Carbon Dioxide Anion Gap BUN Creatinine Est Cr Clr Drug Dosing Est GFR ( Amer) Est GFR (Non-Af Amer) BUN/Creatinine Ratio Glucose POC Glucose 145 H 121 H Calcium Phosphorus Magnesium Total Bilirubin AST ALT Alkaline Phosphatase Total Protein Albumin Globulin Albumin/Globulin Ratio TSH Free T4 Stl C. diff Tox B Gene Negative Cdiff Gene 09/21/23 09/21/23 09/21/23 07:23 08:12 11:30 WBC 5.53 RBC 3.77 L Hgb 10.7 L Hct 35.3 L MCV 93.6 MCH 28.4 MCHC 30.3 L RDW Std Deviation 49.1 H RDW Coeff of Mya 14.4 Plt Count 153 MPV 12.5 H Sodium 142 Potassium 4.1 Chloride 93 L Carbon Dioxide 44 H* Anion Gap 5 BUN 49 H Creatinine 1.23 H Est Cr Clr Drug Dosing 78.1 Est GFR ( Amer) 57.6 Est GFR (Non-Af Amer) 49.7 BUN/Creatinine Ratio 39.8 H Glucose 99 POC Glucose 92 127 H Calcium 9.1 Phosphorus 4.0 Magnesium 2.0 Total Bilirubin 0.5 AST 15 ALT 9 Alkaline Phosphatase 124 H Total Protein 7.1 Albumin 3.6 Globulin 3.5 Albumin/Globulin Ratio 1.0 TSH 5.071 H Free T4 1.09 Stl C. diff Tox B Gene (6) Right heart failure Heart failure chronicity: acute on chronic Qualified Code(s): I50.813 - Acute on chronic right heart failure (7) CKD (chronic kidney disease) stage 3, GFR 30-59 ml/min Chronic kidney disease stage 3 subtype: unspecified whether 3a or 3b Qualified Code(s): N18.30 - Chronic kidney disease, stage 3 unspecified
[2023-09-21] MEDS: ADVANCED PROBIOTIC 1250 MG CAPSULE PO SCH (17:22)
[2023-09-22 08:10] LABS: Hematocrit (blood only) 35.5 % (37.0-47.0); Hemoglobin 11.2 g/dl (12.0-16.0); Mean Corpuscular Hemoglobin 28.9 pg (25.0-34.0); Mean Corpuscular Hgb Conc 31.5 g/dL (32.0-36.0); Mean Corpuscular Volume 91.5 fL (80.0-100.0); Mean Platelet Volume 11.9 fL (9.4-12.4); Platelet Count 167 K/uL (130-400); RDW Coefficient of Variation 14.1 % (11.5-14.5); RDW Standard Deviation 47.2 fL (36.4-46.3); Red Blood Count 3.88 M/uL (4.20-5.40); White Blood Count 4.93 K/ul (4.8-10.8)
[2023-09-22 08:29] LABS: BUN Creatinine Ratio 33.3 (10-20); Calcium 9.4 mg/dl (8.6-10.3); Creatinine Clr Calc Pharmacy 78.9 ml/min; Est GFR (African American) 59.3 ml/min; Est GFR (Non-African American) 51.2 ml/min; Phosphorus 3.8 mg/dl (2.5-4.9); Potassium 3.9 mmol/L (3.5-5.1)
[2023-09-22] MEDS: hydrALAZINE HCL 25 MG TAB PO PRN (10:14)
--- NOTE | 2023-09-22 10:28 | Nephrology Progress Note ---
Date of Service September 22, 2023 Assessment & Plan Admission and Anticipated Discharge Date Admission Date: September 19, 2023 Subjective Assessment & Plan (1) Right heart failure: Plan: acute on chronic; causes volume overload; also w/ plm HTN. With BIpap she made lot more urine even though her diuretics dose currently is lower than outpt. cont bumex 2 mg IV bid strict I/O continue 1.5L FR and <2 gm daily Na diet hard to assess fluid status with her morbid obesity. Weight if possible is more accurate. her current wt is still lot more than her discharge weight from few weeks ago. (2) Carbon dioxide retention: Plan: this is what caused metabolic encephalopathy. imperative that she use bipap/cpap here and after d/c every night (3) Hypercarbia: Plan: from large obligate diuresis needs (4) CKD (chronic kidney disease) stage 3, GFR 30-59 ml/min: Plan: baseline renal function labile; usually mid to high ones. also has 2 gm proteinuria w/ negative serologic work up. currently at baseline w/ acceptable chemistries despite challenging hypercarbia and with fluid over Creat is better today . Subjective used bipap overnight x 5 hrs; made 3900 ml urine. Awake and alert. Normal speech now. Review of Systems Review of Systems: All systems reviewed & are unremarkable except as noted in Subjective Physical Exam Constitutional: well developed, + obese and cooperative Eyes: EOM intact bilaterally ENMT: Ears: no external ear abnormality Nose: no external nose abnormality Mouth: + dry oral mucous membranes Neck: no nuchal rigidity Respiratory: normal respiratory effort Auscultation: + diminished lung sounds Cardiovascular: Rate/Rhythm: regular rate and + bradycardic Extremities: + edema (2+) Gastrointestinal (Abdomen): Inspection/Auscultation: normal bowel sounds Percussion/Palpation: abdomen soft; abdomen nontender Musculoskeletal: Extremities: strength 5/5 throughout Skin: no rashes, warm and dry Psychiatric: Orientation: alert and oriented x 3 Results & Data Vital Signs (Past 12 Hours) Vital Signs Temp Pulse Pulse Resp BP BP Pulse Ox 09/22/23 10:17 66 17 190/91 H 94 09/22/23 07:34 36.5 C 64 16 181/78 H 96 09/22/23 04:17 36.2 C L 59 L 18 169/67 H 96 09/22/23 03:20 56 L 17 95 09/21/23 23:04 63 09/21/23 23:00 Pulse Ox O2 Del Method O2 Del Method O2 Flow Rate FiO2 09/22/23 10:17 Nasal Cannula 09/22/23 07:34 Nasal Cannula 3 09/22/23 04:17 BiPAP 09/22/23 03:20 30 09/21/23 23:04 09/21/23 23:00 96 BiPAP
--- NOTE | 2023-09-22 11:19 | Hospitalist Progress Note ---
Date of Service September 22, 2023 Assessment & Plan (1) Metabolic encephalopathy: (2) Hypercarbia: Plan: Patient is 53-year-old female with PMH insulin-dependent DM II, diabetic neuropathy, CKD III, HTN, HLD, chronic HFpEF, morbid obesity, history necrotizing fasciitis, bilateral lower extremity lymphedema, left chronic heel ulcer, iron deficiency anemia, and others listed below presented to ER from [facility] for reported altered mental status and shortness of breath. Today outpatient labs with elevated CO2. Patient presented to ER and was lethargic. In ER patient was afebrile, was 96% on 3 L nasal cannula. During my evaluation patient appears comfortable on BiPAP. She awakens to voice and light touch but not conversant. Initial VBG pH: 7.34, pCO2: 98, HCO3: 53. Repeat VBG 2 hours after BiPAP placed: pH: 7.4, pCO2: 81. Vitals P: 51, R: 19, BP 129/56, 97% on BiPAP No leukocytosis. Negative influenza, RSV, SARS-CoV-2 PCR CXR: No acute abnormalities and in particular no radiographic evidence of pneumonia. Likely metabolic encephalopathy secondary to hypercarbia. Suspect OHS CT head negative UA, urine drug screen negat. Continue BiPAP CBC, BMP am (3) Acute on chronic heart failure with preserved ejection fraction (HFpEF): Plan: History Echo 07/05/2023: EF: 55-60%, grade 1 diastolic dysfunction, right ventricle severely dilated, right ventricular systolic function mildly reduced, severe tricuspid regurgitation, moderate pulmonary hypertension Suspect acute on chronic CHF. Volume status difficult to assess with body habitus In ER given 80 mg Lasix IV BNP 181, troponin x3 14-17. EKG sinus bradycardia, RBBB Hold home torsemide 80 mg twice daily Heaton catheter. Monitor I's and O's, daily weights. low-sodium diet. FR 1.5 Cardiology consulted - hold coreg for bradycardia, slowly may need to increase to control BP, cont. w/ diuresis, need for bipap Discussed w/ nephrology - cont. bumex (4) Hyperkalemia: Plan: K: 5.3 Hold home potassium supplement monitor (5) CKD (chronic kidney disease) stage 3, GFR 30-59 ml/min: Plan: History of progressive CKD Cr: 1.6. Recent baseline~1.4. Recent DAHLIA Monitor renal functions, avoid nephrotoxic agents when possible Nephrology consulted - diuresing - on bumex monitor BMP (6) HTN (hypertension): Plan: Stable Held carvedilol with d/t bradycardia, will slowly resume to control her BP hydralazine prn for HTN Continue nifedipine (7) Type 2 diabetes mellitus, with long-term current use of insulin: Plan: A1c: 7.7 on 08/25/2023 Continue basal bolus insulin (8) Lymphedema of both lower extremities: Plan: Patient was started on Keflex outpatient for reported leg cellulitis started on 09/15/2023 Currently does not appear cellulitic Placed on Rocephin on admission for now, cont. to monitor (9) Chronic iron deficiency anemia: Plan: Hgb: 10.9. Baseline 9-10 Continue iron supplement (10) Neuropathy: Plan: Chronic neuropathy Hold gabapentin with altered mental status (11) Depression with anxiety: Plan: Hold olanzapine for now with altered mental status Continue Prozac DVT Prophylaxis Heparin SQ Full Code as per patient POLST form Follows with Dr Mayra Holley for routine care Admission and Anticipated Discharge Date Admission Date: September 19, 2023 Subjective Pt seen in follow up of altered mental status, likely from hypercarbia. , and poss. leg cellulitis was placed on bipap in ED, started on IV diuresis cardiology and nephrology consulted Currently patient is sitting up in chair, on supplemental oxygen, she is awake alert and able to answer appropriately Tells me she has been feeling groggy for past few days before coming to the hospital. Says that she was having some muscle twitches and was given muscle relaxer, which made her feel quite off. Not sure if this was contributing to her hypercarbia. Presented with increased volume status. Currently denies any fever chills chest pain shortness of breath abdominal pain nausea vomiting. Per RN patient had diarrhea, C. difficile - negative. Using bipap overnight and diuresing well. Overall feeling better. Review of Systems Review of Systems: All systems reviewed & are unremarkable except as noted in Subjective Physical Exam Physical Exam: General: morbidly obese F in NAD, on suppl. O2 Head: normocephalic, atraumatic Eyes: EOM's intact, conjunctiva non-injected, anicteric ENT: normal inspection external ears, nose, mucous membranes moist Neck: supple Lungs: no respiratory distress, ctab anteriorly CV: RRR, +2-3 LE edema b/l Abd: soft, obese, normal BS, no apparent tenderness to palpation Ext: moves extremities Neuro: Awake, alert, answers appropriately, speech fluent, no facial asymmetry, moves extremities Skin: warm, dry, BLE +dry skin with slight erythema without significant warmth Results & Data Results & Data Vital Signs (Past 12 Hours) Vital Signs Temp Pulse Pulse Resp BP BP Pulse Ox 09/22/23 10:17 66 17 190/91 H 94 09/22/23 07:34 36.5 C 64 16 181/78 H 96 09/22/23 04:17 36.2 C L 59 L 18 169/67 H 96 09/22/23 03:20 56 L 17 95 O2 Del Method O2 Flow Rate FiO2 09/22/23 10:17 Nasal Cannula 09/22/23 07:34 Nasal Cannula 3 09/22/23 04:17 BiPAP 09/22/23 03:20 30 Laboratory Results 09/22/23 09/22/23 09/22/23 Range/Units 09:26 07:49 07:30 WBC 4.93 (4.8-10.8) K/ul RBC 3.88 L (4.20-5.40) M/uL Hgb 11.2 L (12.0-16.0) g/dl Hct 35.5 L (37.0-47.0) % MCV 91.5 (80.0-100.0) fL MCH 28.9 (25.0-34.0) pg MCHC 31.5 L (32.0-36.0) g/dL RDW Std Deviation 47.2 H (36.4-46.3) fL RDW Coeff of Mya 14.1 (11.5-14.5) % Plt Count 167 (130-400) K/uL MPV 11.9 (9.4-12.4) fL Sodium 142 (136-145) mmol/L Potassium 3.9 (3.5-5.1) mmol/L Chloride 93 L (98-107) mmol/L Carbon Dioxide 43 H* (21-32) mmol/L Anion Gap 6 (3-11) BUN 40 H (6-23) mg/dl Creatinine 1.20 (0.6-1.2) mg/dl Est Cr Clr Drug Dosing 78.9 ml/min Est GFR ( Amer) 59.3 ml/min Est GFR (Non-Af Amer) 51.2 ml/min BUN/Creatinine Ratio 33.3 H (10-20) Glucose 123 H (70-99(Fasting)) mg/dl POC Glucose 157 H 124 H (70-99) mg/dl Calcium 9.4 (8.6-10.3) mg/dl Phosphorus 3.8 (2.5-4.9) mg/dl Magnesium 2.0 (1.7-2.4) mg/dl 09/21/23 09/21/23 09/21/23 Range/Units 20:07 16:35 11:30 WBC (4.8-10.8) K/ul RBC (4.20-5.40) M/uL Hgb (12.0-16.0) g/dl Hct (37.0-47.0) % MCV (80.0-100.0) fL MCH (25.0-34.0) pg MCHC (32.0-36.0) g/dL RDW Std Deviation (36.4-46.3) fL RDW Coeff of Mya (11.5-14.5) % Plt Count (130-400) K/uL MPV (9.4-12.4) fL Sodium (136-145) mmol/L Potassium (3.5-5.1) mmol/L Chloride (98-107) mmol/L Carbon Dioxide (21-32) mmol/L Anion Gap (3-11) BUN (6-23) mg/dl Creatinine (0.6-1.2) mg/dl Est Cr Clr Drug Dosing ml/min Est GFR ( Amer) ml/min Est GFR (Non-Af Amer) ml/min BUN/Creatinine Ratio (10-20) Glucose (70-99(Fasting)) mg/dl POC Glucose 79 108 H 127 H (70-99) mg/dl Calcium (8.6-10.3) mg/dl Phosphorus (2.5-4.9) mg/dl Magnesium (1.7-2.4) mg/dl Medications Administered Current Inpatient Medications Acetaminophen (Acetaminophen 325 Mg Tab) 650 mg PO Q4H PRN PRN Reason: Pain or Fever Stop: 10/19/23 21:27 Aspirin (Aspirin 81 Mg Ectab) 81 mg PO QAM [facility] Stop: 10/20/23 08:59 Last Admin: 09/22/23 08:46 Dose: 81 mg Cyanocobalamin (Cyanocobalamin (B-12) 500 Mcg Tablet) 1,000 mcg PO DAILY [facility] Stop: 10/21/23 08:59 Last Admin: 09/22/23 08:46 Dose: 1,000 mcg Dextrose (Dextrose 50% 50 Ml Syringe) 25 - 50 ml IV UD PRN; Protocol PRN Reason: Hypoglycemia Protocol Stop: 10/19/23 21:27 Ferrous Sulfate (Ferrous Sulfate 325 Mg Tab) 325 mg PO DAILY [facility] Stop: 10/21/23 08:59 Last Admin: 09/22/23 08:58 Dose: 325 mg Fluoxetine HCl (Fluoxetine Hcl 20 Mg Cap) 20 mg PO DAILY [facility] Stop: 10/21/23 08:59 Last Admin: 09/22/23 08:45 Dose: 20 mg Glucagon (Glucagon For Inj 1 Mg Vial) 1 mg SQ UD PRN; Protocol PRN Reason: Hypoglycemia Protocol Stop: 10/19/23 21:27 Glucose (Glucose 10 Tab/Tube) 4 - 8 tab PO UD PRN; Protocol PRN Reason: Hypoglycemia Treatment Stop: 10/19/23 21:27 Glucose (Glucose 40% Gel 15 Gm Tube) 15 - 30 gm PO UD PRN; Protocol PRN Reason: Hypoglycemia Protocol Stop: 10/19/23 21:27 Heparin Sodium (Porcine) (Heparin Sod 5,000 Unit/0.5 Ml Vial) 7,500 units SQ Q12 [facility] Stop: 10/19/23 21:27 Last Admin: 09/22/23 08:46 Dose: 7,500 units Hydralazine HCl (Hydralazine Hcl 25 Mg Tab) 25 mg PO TID PRN PRN Reason: sbp > 165 Stop: 10/21/23 16:13 Last Admin: 09/22/23 10:14 Dose: 25 mg Bumetanide 2 mg/ Syringe 8 mls @ 4 mls/min IV BID@0900,1700 [facility] Stop: 10/21/23 08:59 Last Admin: 09/22/23 08:57 Dose: 4 mls/min Insulin Aspart (Insulin Aspart Per Unit Charge) 0 units SC ACHS [facility] Stop: 10/19/23 21:27 Last Admin: 09/22/23 08:44 Dose: 124 units Insulin Glargine (Lantus Per Unit Charge) 0 units SQ BID [facility]; Protocol Stop: 10/19/23 21:27 Last Admin: 09/22/23 08:54 Dose: 7 units Lactic Acid (Ammonium Lactate 12% Lotion 225 Gm Btl) 1 gm EXT BID [facility] Stop: 10/19/23 21:27 Last Admin: 09/22/23 08:57 Dose: 1 gm Lactobacillus Acidophilus (Advanced Probiotic 1250 Mg Capsule) 2 cap PO DAILY [facility] Stop: 10/21/23 16:29 Last Admin: 09/22/23 10:14 Dose: 2 cap Miscellaneous (Carbohydrates For Hypoglycemia ) 15 - 30 gm PO UD PRN PRN Reason: Hypoglycemia Protocol Stop: 10/19/23 21:27 Nifedipine (Nifedipine Extended Rel 30 Mg Tabcr) 60 mg PO QAM [facility] Stop: 10/20/23 08:59 Last Admin: 09/22/23 10:14 Dose: 60 mg Ondansetron HCl (Ondansetron Inj 2 Mg/Ml 2 Ml Vial) 4 mg IV Q6H PRN PRN Reason: Nausea Stop: 10/19/23 21:27 Pantoprazole Sodium (Pantoprazole 40 Mg Tab) 40 mg PO DAILY [facility] Stop: 10/21/23 08:59 Last Admin: 09/22/23 08:46 Dose: 40 mg Polyethylene Glycol (Polyethylene (Miralax) 17 Gm Pack) 17 gm PO DAILY PRN PRN Reason: Constipation Stop: 10/19/23 21:27 (5) CKD (chronic kidney disease) stage 3, GFR 30-59 ml/min Chronic kidney disease stage 3 subtype: unspecified whether 3a or 3b Qualified Code(s): N18.30 - Chronic kidney disease, stage 3 unspecified (7) Type 2 diabetes mellitus, with long-term current use of insulin Diabetes mellitus complication status: without complication Qualified Code(s): E11.9 - Type 2 diabetes mellitus without complications; Z79.4 - [facility] (current) use of insulin
[2023-09-22] MEDS: hydrALAZINE HCL 25 MG TAB PO STA (12:44)
--- NOTE | 2023-09-22 16:49 | Cardiology Progress Note ---
Date of Service September 22, 2023 Assessment & Plan (1) Hypercapnic respiratory failure: (2) Acute on chronic heart failure with preserved ejection fraction (HFpEF): (3) Metabolic encephalopathy: (4) Morbid obesity: (5) Pickwickian syndrome: (6) Right heart failure: (7) CKD (chronic kidney disease) stage 3, GFR 30-59 ml/min: Plan Complex 53-year-old female with chronic right heart failure secondary to morbid obesity and hypoventilation syndrome. Past hospitalization JuneJuly 2023 with profound anasarca and right heart failure treated with aggressive diuresis successfully. Now presents with reaccumulation of at least 10 kg of fluid with additional hypercapnic respiratory failure Recommendations: Appreciate nephrology input and diuretic management Hold carvedilol given resting bradycardia. May consider reintroduction at lower dosing as needed for blood pressure. Hypoventilation treatment mandated. Will require CPAP/BiPAP during hospitalization and post discharge If renal function and potassium levels allow we will anticipate adding spironolactone possible [facility] will follow 09/21/2023 Impression: Hypercapnic respiratory failure secondary to hypoventilation/pickwickian syndrome. Chronic right heart failure past dilated right ventricle and right atrium, elevated pulmonary pressures on echocardiogram June 2023 Continue diuresis. Once again discussed mandated need for respiratory support at night Consider repeat echocardiogram once volume status improved Assess if renal function and past potassium levels allow spironolactone and/or Jardiance 09/22/23. Improving symptoms with aggressive diuresis. Good outputs. -9 L since admission. weight trending down. Renal function improving as well. Nephrology following. Patient remains hypertensive. Coreg resumed at 3.125 mg BID. dose limited due to mild bradycardia. Consider titration of hydralazine or possible initiation of isordil if BP remains high with ongoing diuresis. CPAP encouraged. Case discussed with Dr. Holley I spent a total of 30 minutes on the date of service in preparation, delivery, and documentation of the care provided to this patient, excluding any time spent in the performance of separately billed services. Mckenzie Munoz PA-C Department of Cardiology, [facility] This chart was completed in part utilizing Speech Voice Recognition Software. Grammatical errors, random word insertions, pronoun errors, and incomplete sentences are an occasional consequence of this system due to software limitations, ambient noise, and hardware issues. Any formal questions or concerns about the content, text, or information contained within the body of this dictation should be directly addressed to the provider for clarification. Admission and Anticipated Discharge Date Admission Date: September 19, 2023 Supervising Physician Co-Signing Physician Notes I have reviewed the advance practitioner's documentation, and I agree with, and take responsibility for the plan of care. Patient seen and examined at the bedside. Admitted with acute on chronic right heart failure in the setting of morbid obesity and obesity hypoventilation syndrome. Denies chest pain or shortness of breath. Lower extremity edema mildly improved with significant diuresis since admission. PE: Hypertensive. General: NAD, awake alert and oriented x 3. Heart: Regular rhythm, normal S1-S2. No murmur. Lungs: Crackles at the bases bilateral. No rhonchi or wheeze. Extremities: 3+ bilateral pretibial edema with erythema and stasis changes. A/P: 53-year-old female with acute on chronic right heart failure, and acute on chronic renal insufficiency. Appreciate nephrology input. Continue IV Bumex as ordered. Monitor fluid balance, daily weight, GFR, and electrolytes. Add low- dose carvedilol to improve blood pressure control cautiously. Beta-andrea held in the past due to bradycardia. Consider addition of long-acting nitrates pending clinical response. Subjective Patient resting in chair. Feeling better today. SOB improved. Good diuresis over the last 24-48 hours. -9 L since admission. weight trending down. BP remains high. No dizziness, headaches. Coreg resumed today, low dose. Initial concerns for bradycardia on admission. No pauses or significnat bradycardia on telemetry. No chest pain. Review of Systems Review of Systems: All systems reviewed & are unremarkable except as noted in HPI & below Physical Exam Constitutional: + morbidly obese; no acute distress Eyes: PERRL, conjunctivae normal, anicteric sclerae ENMT: external ear and nose normal, oropharynx normal Neck: trachea midline, no thyromegaly Respiratory: Auscultation: + diminished lung sounds Cardiovascular: Rate/Rhythm: regular rate and regular rhythm Heart Sounds: normal S1 and normal S2 Vessels: no JVD Extremities: + edema (2-3+ hard indurated) Results & Data Vital Signs (Past 12 Hours) Vital Signs Temp Pulse Pulse Resp BP BP Pulse Ox 09/22/23 12:45 68 17 194/77 H 97 09/22/23 11:22 36.8 C 62 16 172/84 H 98 09/22/23 10:17 66 17 190/91 H 94 09/22/23 08:40 64 09/22/23 08:40 09/22/23 07:34 36.5 C 64 16 181/78 H 96 O2 Del Method O2 Flow Rate 09/22/23 12:45 Nasal Cannula 1 09/22/23 11:22 Nasal Cannula 3 09/22/23 10:17 Nasal Cannula 09/22/23 08:40 09/22/23 08:40 Nasal Cannula 3 09/22/23 07:34 Nasal Cannula 3 Laboratory Results CBC 09/22/23 Range/Units 07:49 WBC 4.93 (4.8-10.8) K/ul RBC 3.88 L (4.20-5.40) M/uL Hgb 11.2 L (12.0-16.0) g/dl Hct 35.5 L (37.0-47.0) % Plt Count 167 (130-400) K/uL Comprehensive Metabolic Panel 09/22/23 Range/Units 07:49 Sodium 142 (136-145) mmol/L Potassium 3.9 (3.5-5.1) mmol/L Chloride 93 L (98-107) mmol/L Carbon Dioxide 43 H* (21-32) mmol/L BUN 40 H (6-23) mg/dl Creatinine 1.20 (0.6-1.2) mg/dl Glucose 123 H (70-99(Fasting)) mg/dl Calcium 9.4 (8.6-10.3) mg/dl Intake and Output 09/22/23 09/22/23 09/22/23 06:59 14:59 22:59 Intake Total 260 / 260 Output Total 480 / 3931 1924 Balance -480 / -3251 -1665 / -1665 Intake: Oral 260 / 260 Output: Urine Amount (Catheter) 480 / 3930 1924 Heaton/Indwelling 480 / 3930 1924 Other: Weight 137.2 kg 133.866 kg Weight Measurement Method Built in Bedscale Standing Scale Patient Weight 09/23/23 06:59 Weight 133.866 kg Diagnostic Findings Telemetry reviewed: NSR ranging 55- 65 bmp. No pauses or significant bradycardia. Medications Administered Current Inpatient Medications Acetaminophen (Acetaminophen 325 Mg Tab) 650 mg PO Q4H PRN PRN Reason: Pain or Fever Stop: 10/19/23 21:27 Aspirin (Aspirin 81 Mg Ectab) 81 mg PO QAM [facility] Stop: 10/20/23 08:59 Last Admin: 09/22/23 08:46 Dose: 81 mg Carvedilol (Carvedilol 3.125 Mg Tab) 3.125 mg PO BIDM [facility] Stop: 10/22/23 16:59 Cyanocobalamin (Cyanocobalamin (B-12) 500 Mcg Tablet) 1,000 mcg PO DAILY [facility] Stop: 10/21/23 08:59 Last Admin: 09/22/23 08:46 Dose: 1,000 mcg Dextrose (Dextrose 50% 50 Ml Syringe) 25 - 50 ml IV UD PRN; Protocol PRN Reason: Hypoglycemia Protocol Stop: 10/19/23 21:27 Ferrous Sulfate (Ferrous Sulfate 325 Mg Tab) 325 mg PO DAILY [facility] Stop: 10/21/23 08:59 Last Admin: 09/22/23 08:58 Dose: 325 mg Fluoxetine HCl (Fluoxetine Hcl 20 Mg Cap) 20 mg PO DAILY [facility] Stop: 10/21/23 08:59 Last Admin: 09/22/23 08:45 Dose: 20 mg Glucagon (Glucagon For Inj 1 Mg Vial) 1 mg SQ UD PRN; Protocol PRN Reason: Hypoglycemia Protocol Stop: 10/19/23 21:27 Glucose (Glucose 10 Tab/Tube) 4 - 8 tab PO UD PRN; Protocol PRN Reason: Hypoglycemia Treatment Stop: 10/19/23 21:27 Glucose (Glucose 40% Gel 15 Gm Tube) 15 - 30 gm PO UD PRN; Protocol PRN Reason: Hypoglycemia Protocol Stop: 10/19/23 21:27 Heparin Sodium (Porcine) (Heparin Sod 5,000 Unit/0.5 Ml Vial) 7,500 units SQ Q12 [facility] Stop: 10/19/23 21:27 Last Admin: 09/22/23 08:46 Dose: 7,500 units Hydralazine HCl (Hydralazine Hcl 25 Mg Tab) 25 mg PO TID PRN PRN Reason: sbp > 165 Stop: 10/21/23 16:13 Last Admin: 09/22/23 10:14 Dose: 25 mg Bumetanide 2 mg/ Syringe 8 mls @ 4 mls/min IV BID@0900,1700 [facility] Stop: 10/21/23 08:59 Last Admin: 09/22/23 08:57 Dose: 4 mls/min Insulin Aspart (Insulin Aspart Per Unit Charge) 0 units SC ACHS [facility] Stop: 10/19/23 21:27 Last Admin: 09/22/23 12:42 Dose: 5 units Insulin Glargine (Lantus Per Unit Charge) 0 units SQ BID [facility]; Protocol Stop: 10/19/23 21:27 Last Admin: 09/22/23 08:54 Dose: 7 units Lactic Acid (Ammonium Lactate 12% Lotion 225 Gm Btl) 1 gm EXT BID [facility] Stop: 10/19/23 21:27 Last Admin: 09/22/23 08:57 Dose: 1 gm Lactobacillus Acidophilus (Advanced Probiotic 1250 Mg Capsule) 2 cap PO DAILY [facility] Stop: 10/21/23 16:29 Last Admin: 09/22/23 10:14 Dose: 2 cap Miscellaneous (Carbohydrates For Hypoglycemia ) 15 - 30 gm PO UD PRN PRN Reason: Hypoglycemia Protocol Stop: 10/19/23 21:27 Nifedipine (Nifedipine Extended Rel 30 Mg Tabcr) 60 mg PO QAM [facility] Stop: 10/20/23 08:59 Last Admin: 09/22/23 10:14 Dose: 60 mg Ondansetron HCl (Ondansetron Inj 2 Mg/Ml 2 Ml Vial) 4 mg IV Q6H PRN PRN Reason: Nausea Stop: 10/19/23 21:27 Pantoprazole Sodium (Pantoprazole 40 Mg Tab) 40 mg PO DAILY [facility] Stop: 10/21/23 08:59 Last Admin: 09/22/23 08:46 Dose: 40 mg Polyethylene Glycol (Polyethylene (Miralax) 17 Gm Pack) 17 gm PO DAILY PRN PRN Reason: Constipation Stop: 10/19/23 21:27 (6) Right heart failure Heart failure chronicity: acute on chronic Qualified Code(s): I50.813 - Acute on chronic right heart failure (7) CKD (chronic kidney disease) stage 3, GFR 30-59 ml/min Chronic kidney disease stage 3 subtype: unspecified whether 3a or 3b Qualified Code(s): N18.30 - Chronic kidney disease, stage 3 unspecified
[2023-09-22] MEDS: carvediloL 3.125 MG TAB PO SCH (17:21)
[2023-09-23 07:27] LABS: Hematocrit (blood only) 33.2 % (37.0-47.0); Hemoglobin 10.5 g/dl (12.0-16.0); Mean Corpuscular Hemoglobin 28.6 pg (25.0-34.0); Mean Corpuscular Hgb Conc 31.6 g/dL (32.0-36.0); Mean Corpuscular Volume 90.5 fL (80.0-100.0); Mean Platelet Volume 11.7 fL (9.4-12.4); Platelet Count 157 K/uL (130-400); RDW Standard Deviation 46.1 fL (36.4-46.3); Red Blood Count 3.67 M/uL (4.20-5.40); White Blood Count 4.21 K/ul (4.8-10.8)
[2023-09-23 07:59] LABS: BUN Creatinine Ratio 31.7 (10-20); Calcium 9.1 mg/dl (8.6-10.3); Creatinine Clr Calc Pharmacy 78.3 ml/min; Est GFR (African American) 59.3 ml/min; Est GFR (Non-African American) 51.2 ml/min; Potassium 3.7 mmol/L (3.5-5.1)
--- NOTE | 2023-09-23 09:14 | Hospitalist Progress Note ---
Date of Service September 23, 2023 Assessment & Plan (1) Metabolic encephalopathy: (2) Hypercarbia: Plan: Patient is 53-year-old female with PMH insulin-dependent DM II, diabetic neuropathy, CKD III, HTN, HLD, chronic HFpEF, morbid obesity, history necrotizing fasciitis, bilateral lower extremity lymphedema, left chronic heel ulcer, iron deficiency anemia, and others listed below presented to ER from [facility] for reported altered mental status and shortness of breath. Today outpatient labs with elevated CO2. Patient presented to ER and was lethargic. In ER patient was afebrile, was 96% on 3 L nasal cannula. During my evaluation patient appears comfortable on BiPAP. She awakens to voice and light touch but not conversant. Initial VBG pH: 7.34, pCO2: 98, HCO3: 53. Repeat VBG 2 hours after BiPAP placed: pH: 7.4, pCO2: 81. Vitals P: 51, R: 19, BP 129/56, 97% on BiPAP No leukocytosis. Negative influenza, RSV, SARS-CoV-2 PCR CXR: No acute abnormalities and in particular no radiographic evidence of pneumonia. Likely metabolic encephalopathy secondary to hypercarbia. Suspect OHS CT head negative UA, urine drug screen negat. Continue BiPAP CBC, BMP am (3) Acute on chronic heart failure with preserved ejection fraction (HFpEF): Plan: History Echo 07/05/2023: EF: 55-60%, grade 1 diastolic dysfunction, right ventricle severely dilated, right ventricular systolic function mildly reduced, severe tricuspid regurgitation, moderate pulmonary hypertension Suspect acute on chronic CHF. Volume status difficult to assess with body habitus In ER given 80 mg Lasix IV BNP 181, troponin x3 14-17. EKG sinus bradycardia, RBBB Hold home torsemide 80 mg twice daily Heaton catheter. Monitor I's and O's, daily weights. low-sodium diet. FR 1.5 Cardiology consulted - held coreg for bradycardia, resumed at smaller dose as BP not controlled, cont. w/ diuresis, need for bipap 2/6 right sided chest pain reported, now subsiding. ECG obtained and seen by cardiology - will follow cardiology input. Discussed w/ nephrology - switch IV bumex to PO torsemide 100 bid (4) Hyperkalemia: Plan: K: 5.3 Hold home potassium supplement monitor (5) CKD (chronic kidney disease) stage 3, GFR 30-59 ml/min: Plan: History of progressive CKD Cr: 1.6. Recent baseline~1.4. Recent DAHLIA Monitor renal functions, avoid nephrotoxic agents when possible Nephrology consulted - diuresing - on bumex -> switch to PO torsemide monitor BMP (6) HTN (hypertension): Plan: Stable Held carvedilol with d/t bradycardia, slowly resuming to control her BP hydralazine prn for HTN Continue nifedipine (7) Type 2 diabetes mellitus, with long-term current use of insulin: Plan: A1c: 7.7 on 08/25/2023 Continue basal bolus insulin (8) Lymphedema of both lower extremities: Plan: Patient was started on Keflex outpatient for reported leg cellulitis started on 09/15/2023 Currently does not appear cellulitic Placed on Rocephin on admission for now, cont. to monitor (9) Chronic iron deficiency anemia: Plan: Hgb: 10.9. Baseline 9-10 Continue iron supplement (10) Neuropathy: Plan: Chronic neuropathy Hold gabapentin with altered mental status (11) Depression with anxiety: Plan: Hold olanzapine for now with altered mental status Continue Prozac DVT Prophylaxis Heparin SQ Full Code as per patient POLST form Follows with Dr Mayra Holley for routine care Admission and Anticipated Discharge Date Admission Date: September 19, 2023 Subjective Pt seen in follow up of altered mental status, likely from hypercarbia. , incr. volume status, and poss. leg cellulitis was placed on bipap in ED, started on IV diuresis cardiology and nephrology consulted Currently patient is sitting up in chair, on supplemental oxygen, she is awake alert and able to answer appropriately Diuresing well and using bipap at night. This AM reported right sided chest pain that is now subsiding. ECG obtained and pt also seen by cardiology Currently denies any fever chills chest pain shortness of breath abdominal pain nausea vomiting. Nephrology following closely ans switching iv bumex to PO torsemide today. Review of Systems Review of Systems: All systems reviewed & are unremarkable except as noted in Subjective Physical Exam Physical Exam: General: morbidly obese F in NAD, on suppl. O2 Head: normocephalic, atraumatic Eyes: EOM's intact, conjunctiva non-injected, anicteric ENT: normal inspection external ears, nose, mucous membranes moist Neck: supple Lungs: no respiratory distress, + crackles at bases CV: RRR, +2-3 LE edema b/l (improved) Abd: soft, obese, normal BS, no apparent tenderness to palpation Ext: moves extremities Neuro: Awake, alert, answers appropriately, speech fluent, no facial asymmetry, moves extremities Skin: warm, dry, BLE +dry skin with slight erythema without significant warmth Results & Data Results & Data Vital Signs (Past 12 Hours) Vital Signs Temp Pulse Pulse Resp BP Pulse Ox Pulse Ox 09/23/23 07:34 36.5 C 67 20 165/77 H 94 09/23/23 03:20 14 09/23/23 02:57 36.6 C 82 18 151/69 H 95 09/22/23 23:26 57 L 16 96 09/22/23 23:00 98 09/22/23 22:22 50 L 20 105/69 94 09/22/23 22:00 49 L O2 Del Method O2 Del Method FiO2 09/23/23 07:34 Room Air 09/23/23 03:20 30 09/23/23 02:57 CPAP 09/22/23 23:26 30 09/22/23 23:00 BiPAP 09/22/23 22:22 CPAP 09/22/23 22:00 Laboratory Results 09/23/23 09/23/23 09/22/23 Range/Units 07:14 07:04 20:14 WBC 4.21 L (4.8-10.8) K/ul RBC 3.67 L (4.20-5.40) M/uL Hgb 10.5 L (12.0-16.0) g/dl Hct 33.2 L (37.0-47.0) % MCV 90.5 (80.0-100.0) fL MCH 28.6 (25.0-34.0) pg MCHC 31.6 L (32.0-36.0) g/dL RDW Std Deviation 46.1 (36.4-46.3) fL RDW Coeff of Mya 14.0 (11.5-14.5) % Plt Count 157 (130-400) K/uL MPV 11.7 (9.4-12.4) fL Sodium 143 (136-145) mmol/L Potassium 3.7 (3.5-5.1) mmol/L Chloride 95 L (98-107) mmol/L Carbon Dioxide 43 H* (21-32) mmol/L Anion Gap 5 (3-11) BUN 38 H (6-23) mg/dl Creatinine 1.20 (0.6-1.2) mg/dl Est Cr Clr Drug Dosing 78.3 ml/min Est GFR ( Amer) 59.3 ml/min Est GFR (Non-Af Amer) 51.2 ml/min BUN/Creatinine Ratio 31.7 H (10-20) Glucose 113 H (70-99(Fasting)) mg/dl POC Glucose 113 H 126 H (70-99) mg/dl Calcium 9.1 (8.6-10.3) mg/dl Phosphorus 4.0 (2.5-4.9) mg/dl Magnesium 2.0 (1.7-2.4) mg/dl 09/22/23 09/22/23 09/22/23 Range/Units 16:57 11:20 09:26 WBC (4.8-10.8) K/ul RBC (4.20-5.40) M/uL Hgb (12.0-16.0) g/dl Hct (37.0-47.0) % MCV (80.0-100.0) fL MCH (25.0-34.0) pg MCHC (32.0-36.0) g/dL RDW Std Deviation (36.4-46.3) fL RDW Coeff of Mya (11.5-14.5) % Plt Count (130-400) K/uL MPV (9.4-12.4) fL Sodium (136-145) mmol/L Potassium (3.5-5.1) mmol/L Chloride (98-107) mmol/L Carbon Dioxide (21-32) mmol/L Anion Gap (3-11) BUN (6-23) mg/dl Creatinine (0.6-1.2) mg/dl Est Cr Clr Drug Dosing ml/min Est GFR ( Amer) ml/min Est GFR (Non-Af Amer) ml/min BUN/Creatinine Ratio (10-20) Glucose (70-99(Fasting)) mg/dl POC Glucose 163 H 160 H 157 H (70-99) mg/dl Calcium (8.6-10.3) mg/dl Phosphorus (2.5-4.9) mg/dl Magnesium (1.7-2.4) mg/dl Medications Administered Current Inpatient Medications Acetaminophen (Acetaminophen 325 Mg Tab) 650 mg PO Q4H PRN PRN Reason: Pain or Fever Stop: 10/19/23 21:27 Aspirin (Aspirin 81 Mg Ectab) 81 mg PO QAM [facility] Stop: 10/20/23 08:59 Last Admin: 09/22/23 08:46 Dose: 81 mg Carvedilol (Carvedilol 3.125 Mg Tab) 3.125 mg PO BIDM [facility] Stop: 10/22/23 16:59 Last Admin: 09/22/23 17:21 Dose: Not Given Cyanocobalamin (Cyanocobalamin (B-12) 500 Mcg Tablet) 1,000 mcg PO DAILY [facility]OH[facility] Stop: 10/21/23 08:59 Last Admin: 09/22/23 08:46 Dose: 1,000 mcg Dextrose (Dextrose 50% 50 Ml Syringe) 25 - 50 ml IV UD PRN; Protocol PRN Reason: Hypoglycemia Protocol Stop: 10/19/23 21:27 Ferrous Sulfate (Ferrous Sulfate 325 Mg Tab) 325 mg PO DAILY [facility] Stop: 10/21/23 08:59 Last Admin: 09/22/23 08:58 Dose: 325 mg Fluoxetine HCl (Fluoxetine Hcl 20 Mg Cap) 20 mg PO DAILY [facility] Stop: 10/21/23 08:59 Last Admin: 09/22/23 08:45 Dose: 20 mg Glucagon (Glucagon For Inj 1 Mg Vial) 1 mg SQ UD PRN; Protocol PRN Reason: Hypoglycemia Protocol Stop: 10/19/23 21:27 Glucose (Glucose 10 Tab/Tube) 4 - 8 tab PO UD PRN; Protocol PRN Reason: Hypoglycemia Treatment Stop: 10/19/23 21:27 Glucose (Glucose 40% Gel 15 Gm Tube) 15 - 30 gm PO UD PRN; Protocol PRN Reason: Hypoglycemia Protocol Stop: 10/19/23 21:27 Heparin Sodium (Porcine) (Heparin Sod 5,000 Unit/0.5 Ml Vial) 7,500 units SQ Q12 [facility] Stop: 10/19/23 21:27 Last Admin: 09/22/23 20:48 Dose: 7,500 units Hydralazine HCl (Hydralazine Hcl 25 Mg Tab) 25 mg PO TID PRN PRN Reason: sbp > 165 Stop: 10/21/23 16:13 Last Admin: 09/22/23 10:14 Dose: 25 mg Bumetanide 2 mg/ Syringe 8 mls @ 4 mls/min IV BID@0900,1700 [facility] Stop: 10/21/23 08:59 Last Admin: 09/22/23 17:24 Dose: 4 mls/min Insulin Aspart (Insulin Aspart Per Unit Charge) 0 units SC ACHS [facility] Stop: 10/19/23 21:27 Last Admin: 09/22/23 20:42 Dose: Not Given Insulin Glargine (Lantus Per Unit Charge) 0 units SQ BID [facility]; Protocol Stop: 10/19/23 21:27 Last Admin: 09/22/23 20:48 Dose: 7 units Lactic Acid (Ammonium Lactate 12% Lotion 225 Gm Btl) 1 gm EXT BID [facility] Stop: 10/19/23 21:27 Last Admin: 09/22/23 20:49 Dose: 1 gm Lactobacillus Acidophilus (Advanced Probiotic 1250 Mg Capsule) 2 cap PO DAILY [facility] Stop: 10/21/23 16:29 Last Admin: 09/22/23 10:14 Dose: 2 cap Miscellaneous (Carbohydrates For Hypoglycemia ) 15 - 30 gm PO UD PRN PRN Reason: Hypoglycemia Protocol Stop: 10/19/23 21:27 Nifedipine (Nifedipine Extended Rel 30 Mg Tabcr) 60 mg PO QAM [facility] Stop: 10/20/23 08:59 Last Admin: 09/22/23 10:14 Dose: 60 mg Ondansetron HCl (Ondansetron Inj 2 Mg/Ml 2 Ml Vial) 4 mg IV Q6H PRN PRN Reason: Nausea Stop: 10/19/23 21:27 Pantoprazole Sodium (Pantoprazole 40 Mg Tab) 40 mg PO DAILY [facility] Stop: 10/21/23 08:59 Last Admin: 09/22/23 08:46 Dose: 40 mg Polyethylene Glycol (Polyethylene (Miralax) 17 Gm Pack) 17 gm PO DAILY PRN PRN Reason: Constipation Stop: 10/19/23 21:27 (5) CKD (chronic kidney disease) stage 3, GFR 30-59 ml/min Chronic kidney disease stage 3 subtype: unspecified whether 3a or 3b Qualified Code(s): N18.30 - Chronic kidney disease, stage 3 unspecified (7) Type 2 diabetes mellitus, with long-term current use of insulin Diabetes mellitus complication status: without complication Qualified Code(s): E11.9 - Type 2 diabetes mellitus without complications; Z79.4 - senior care (current) use of insulin
--- NOTE | 2023-09-23 09:50 | Nephrology Progress Note ---
Date of Service September 23, 2023 Assessment & Plan Admission and Anticipated Discharge Date Admission Date: September 19, 2023 Subjective Assessment & Plan (1) Right heart failure: Plan: acute on chronic; causes volume overload; also w/ plm HTN. With BIpap she made lot more urine even though her diuretics dose currently is lower than outpt. Stop iv bumex. Change to oral Demadex 100 bid to see how she responds po meds We need daily wt as the only way to really have an idea about her fluid status. strict I/O continue 1.5L FR and <2 gm daily Na diet hard to assess fluid status with her morbid obesity. Weight if possible is more accurate. her current wt is still lot more than her discharge weight from few weeks ago. Also her serum Bicarb has been in the 40's for many day now--she needs this with her Compensation fro Chronic resp Acidosis. will check VBG in AM tomorrow to see her baseline for future reference. her pco2 was in the 70's even when her mental Status is totally normal. (2) CKD (chronic kidney disease) stage 3, GFR 30-59 ml/min: Plan: No clear baseline renal function --very labile. Has 2 gm proteinuria w/ negative serologic work up. Creat is better today and this is the best it has been for a long time. Subjective used bipap overnight x 5 hrs; made 3900 ml urine. Awake and alert. Normal speech now. Review of Systems Review of Systems: All systems reviewed & are unremarkable except as noted in Subjective Physical Exam Constitutional: well developed, + obese and cooperative Eyes: EOM intact bilaterally ENMT: Ears: no external ear abnormality Nose: no external nose abnormality Mouth: + dry oral mucous membranes Neck: no nuchal rigidity Respiratory: normal respiratory effort Auscultation: + diminished lung sounds Cardiovascular: Rate/Rhythm: regular rate and + bradycardic Extremities: + edema (2+) Gastrointestinal (Abdomen): Inspection/Auscultation: normal bowel sounds Percussion/Palpation: abdomen soft; abdomen nontender Musculoskeletal: Extremities: strength 5/5 throughout Skin: no rashes, warm and dry Psychiatric: Orientation: alert and oriented x 3 Results & Data Vital Signs (Past 12 Hours) Vital Signs Temp Pulse Pulse Resp BP Pulse Ox Pulse Ox 09/23/23 09:22 64 15 144/76 H 94 09/23/23 07:34 36.5 C 67 20 165/77 H 94 09/23/23 03:20 14 09/23/23 02:57 36.6 C 82 18 151/69 H 95 09/22/23 23:26 57 L 16 96 09/22/23 23:00 98 09/22/23 22:22 50 L 20 105/69 94 09/22/23 22:00 49 L O2 Del Method O2 Del Method O2 Flow Rate FiO2 09/23/23 09:22 Nasal Cannula 1 09/23/23 07:34 Room Air 09/23/23 03:20 30 09/23/23 02:57 CPAP 09/22/23 23:26 30 09/22/23 23:00 BiPAP 09/22/23 22:22 CPAP 09/22/23 22:00
[2023-09-23] MEDS: POTASSIUM CHLORIDE 10 MEQ TABCR PO SCH (11:59)
--- NOTE | 2023-09-23 14:35 | Electrocardiogram Report ---
Test Reason : Blood Pressure : / mmHG Vent. Rate : 063 BPM Atrial Rate : 063 BPM P-R Int : 172 ms QRS Dur : 150 ms QT Int : 504 ms P-R-T Axes : 063 019 028 degrees QTc Int : 515 ms Normal sinus rhythm Right bundle branch block with repolarization abnormality Abnormal ECG When compared with ECG of 21-SEP-2023 05:48, No significant change Confirmed by Kirby Melchor ([id number] on 09/23/2023 2:35:13 PM Referred By: REFERRED SELF Confirmed By:Kirby Melchor
--- NOTE | 2023-09-23 15:03 | Cardiology Progress Note ---
Date of Service September 23, 2023 Assessment & Plan (1) Hypercapnic respiratory failure: (2) Acute on chronic heart failure with preserved ejection fraction (HFpEF): (3) Metabolic encephalopathy: (4) Morbid obesity: (5) Pickwickian syndrome: (6) Right heart failure: (7) CKD (chronic kidney disease) stage 3, GFR 30-59 ml/min: Plan Complex 53-year-old female with chronic right heart failure secondary to morbid obesity and hypoventilation syndrome. Past hospitalization JuneJuly 2023 with profound anasarca and right heart failure treated with aggressive diuresis successfully. Now presents with reaccumulation of at least 10 kg of fluid with additional hypercapnic respiratory failure Recommendations: Appreciate nephrology input and diuretic management Hold carvedilol given resting bradycardia. May consider reintroduction at lower dosing as needed for blood pressure. Hypoventilation treatment mandated. Will require CPAP/BiPAP during hospitalization and post discharge If renal function and potassium levels allow we will anticipate adding spironolactone possible [facility] will follow 09/21/2023 Impression: Hypercapnic respiratory failure secondary to hypoventilation/pickwickian syndrome. Chronic right heart failure past dilated right ventricle and right atrium, elevated pulmonary pressures on echocardiogram June 2023 Continue diuresis. Once again discussed mandated need for respiratory support at night Consider repeat echocardiogram once volume status improved Assess if renal function and past potassium levels allow spironolactone and/or Jardiance 09/22/23. Improving symptoms with aggressive diuresis. Good outputs. -9 L since admission. weight trending down. Renal function improving as well. Nephrology following. Patient remains hypertensive. Coreg resumed at 3.125 mg BID. dose limited due to mild bradycardia. CPAP encouraged. 09/23/23: Atypical chest pain non cardiac based description, reproducible by exam findings. No EKG findings. Ongoing diuresis noted with interval improvement in volume status. daily standing weight encouraged. Diuretics changed to oral Demadex by nephrology. Patient remains hypertensive. Coreg had been held this morning due to holding parameters. Discussed with nursing. Coreg to be given now. Dose limited due to bradycardia BIPAP encouraged. Consider regular dose of hydralazine or possible initiation of isordil if BP remains high with ongoing diuresis. Case discussed with Dr. Holley I spent a total of 30 minutes on the date of service in preparation, delivery, and documentation of the care provided to this patient, excluding any time spent in the performance of separately billed services. Mckenzie Munoz PA-C Department of Cardiology, [facility] This chart was completed in part utilizing Speech Voice Recognition Software. Grammatical errors, random word insertions, pronoun errors, and incomplete sentences are an occasional consequence of this system due to software limitations, ambient noise, and hardware issues. Any formal questions or concerns about the content, text, or information contained within the body of this dictation should be directly addressed to the provider for clarification. Admission and Anticipated Discharge Date Admission Date: September 19, 2023 Supervising Physician Co-Signing Physician Notes I have reviewed the advance practitioner's documentation, and I agree with, and take responsibility for the plan of care. Patient seen and examined at the bedside. Admitted with acute on chronic right heart failure in the setting of morbid obesity and obesity hypoventilation syndrome. Denies chest pain or shortness of breath. Lower extremity edema mildly improved. Fluid balance -2 L. Renal function remained stable. Transient right-sided chest discomfort reported this a.m. No ECG changes. PE: Hypertensive. General: NAD, awake alert and oriented x 3. Heart: Regular rhythm, normal S1-S2. No murmur. Lungs: Crackles at the bases bilateral. No rhonchi or wheeze. Extremities: 3+ bilateral pretibial edema with erythema and stasis changes. A/P: 53-year-old female with acute on chronic right heart failure, and acute on chronic renal insufficiency. Appreciate nephrology input. Continue IV Bumex as ordered. Monitor fluid balance, daily weight, GFR, and electrolytes. Continue low-dose carvedilol to improve blood pressure control cautiously. Beta-andrea held in the past due to bradycardia. Consider addition of long-acting nitrates pending clinical response. I spent a total of 20 minutes on the date of service in preparation, delivery, and documentation of the care provided to this patient, excluding any time spent in the performance of separately billed services. Subjective Patient reporting right sided sharp chest pain since this morning when getting out of bed. Reproducible upon palpitation to the right chest wall. EKG was done by nursing staff which was unchanged. Carvedilol was initially held this morning due to HR around 58 bmp. Excellent diuresis overnight. Patient wearing BIPAP with sleep which is aiding her fluid status. BP remains borderline elevated Review of Systems Review of Systems: All systems reviewed & are unremarkable except as noted in HPI & below Physical Exam Constitutional: + morbidly obese; no acute distress Eyes: PERRL, conjunctivae normal, anicteric sclerae ENMT: external ear and nose normal, oropharynx normal Neck: trachea midline, no thyromegaly Respiratory: Auscultation: + diminished lung sounds Cardiovascular: Rate/Rhythm: regular rate and regular rhythm Heart Sounds: normal S1 and normal S2 Vessels: no JVD Extremities: + edema (2-3+ hard indurated) Results & Data Vital Signs (Past 12 Hours) Vital Signs Temp Pulse Resp BP Pulse Ox O2 Del Method O2 Flow Rate 09/23/23 11:04 36.4 C L 64 16 162/77 H 98 Nasal Cannula 1 09/23/23 09:22 64 15 144/76 H 94 Nasal Cannula 1 09/23/23 07:34 36.5 C 67 20 165/77 H 94 Room Air 09/23/23 03:20 14 09/23/23 02:57 36.6 C 82 18 151/69 H 95 CPAP FiO2 09/23/23 11:04 09/23/23 09:22 09/23/23 07:34 09/23/23 03:20 30 09/23/23 02:57 Laboratory Results CBC 09/23/23 Range/Units 07:04 WBC 4.21 L (4.8-10.8) K/ul RBC 3.67 L (4.20-5.40) M/uL Hgb 10.5 L (12.0-16.0) g/dl Hct 33.2 L (37.0-47.0) % Plt Count 157 (130-400) K/uL Comprehensive Metabolic Panel 09/23/23 Range/Units 07:04 Sodium 143 (136-145) mmol/L Potassium 3.7 (3.5-5.1) mmol/L Chloride 95 L (98-107) mmol/L Carbon Dioxide 43 H* (21-32) mmol/L BUN 38 H (6-23) mg/dl Creatinine 1.20 (0.6-1.2) mg/dl Glucose 113 H (70-99(Fasting)) mg/dl Calcium 9.1 (8.6-10.3) mg/dl Intake and Output 0209/23/23 09/23/23 22:59 06:59 14:59 Intake Total 0 / 260 600 / 600 Output Total 750 / 3225 550 / 3225 1300 / 1300 Balance -750 / -2965 -550 / -2965 -700 / -700 Intake: Oral 0 / 260 600 / 600 Output: Urine 650 / 650 Urine Amount (Catheter) 100 / 2575 550 / 2575 1300 / 1300 Heaton/Indwelling 100 / 2575 550 / 2575 1300 / 1300 Other: Weight 132.052 kg Weight Measurement Method Standing Scale Patient Weight 09/24/23 06:59 Weight 132.052 kg Diagnostic Findings Telemetry reviewed: NSR in the mid 50's-70's. No pauses or significant bradycardia EKG this morning reviewed: NSR at 63 bmp RBBB No change compared with prior EKG's Medications Administered Current Inpatient Medications Acetaminophen (Acetaminophen 325 Mg Tab) 650 mg PO Q4H PRN PRN Reason: Pain or Fever Stop: 10/19/23 21:27 Aspirin (Aspirin 81 Mg Ectab) 81 mg PO QAM [facility] Stop: 10/20/23 08:59 Last Admin: 09/23/23 09:09 Dose: 81 mg Carvedilol (Carvedilol 3.125 Mg Tab) 3.125 mg PO BIDM [facility] Stop: 10/22/23 16:59 Last Admin: 09/23/23 10:00 Dose: 3.125 mg Cyanocobalamin (Cyanocobalamin (B-12) 500 Mcg Tablet) 1,000 mcg PO DAILY [facility] Stop: 10/21/23 08:59 Last Admin: 09/23/23 09:10 Dose: 1,000 mcg Dextrose (Dextrose 50% 50 Ml Syringe) 25 - 50 ml IV UD PRN; Protocol PRN Reason: Hypoglycemia Protocol Stop: 10/19/23 21:27 Ferrous Sulfate (Ferrous Sulfate 325 Mg Tab) 325 mg PO DAILY [facility] Stop: 10/21/23 08:59 Last Admin: 09/23/23 09:10 Dose: 325 mg Fluoxetine HCl (Fluoxetine Hcl 20 Mg Cap) 20 mg PO DAILY [facility] Stop: 10/21/23 08:59 Last Admin: 09/23/23 09:10 Dose: 20 mg Glucagon (Glucagon For Inj 1 Mg Vial) 1 mg SQ UD PRN; Protocol PRN Reason: Hypoglycemia Protocol Stop: 10/19/23 21:27 Glucose (Glucose 10 Tab/Tube) 4 - 8 tab PO UD PRN; Protocol PRN Reason: Hypoglycemia Treatment Stop: 10/19/23 21:27 Glucose (Glucose 40% Gel 15 Gm Tube) 15 - 30 gm PO UD PRN; Protocol PRN Reason: Hypoglycemia Protocol Stop: 10/19/23 21:27 Heparin Sodium (Porcine) (Heparin Sod 5,000 Unit/0.5 Ml Vial) 7,500 units SQ Q12 [facility] Stop: 10/19/23 21:27 Last Admin: 09/23/23 09:11 Dose: 7,500 units Hydralazine HCl (Hydralazine Hcl 25 Mg Tab) 25 mg PO TID PRN PRN Reason: sbp > 165 Stop: 10/21/23 16:13 Last Admin: 09/22/23 10:14 Dose: 25 mg Insulin Aspart (Insulin Aspart Per Unit Charge) 0 units SC ACHS [facility] Stop: 10/19/23 21:27 Last Admin: 09/23/23 11:57 Dose: 4 units Insulin Glargine (Lantus Per Unit Charge) 0 units SQ BID [facility]; Protocol Stop: 10/19/23 21:27 Last Admin: 09/23/23 09:03 Dose: 7 units Lactic Acid (Ammonium Lactate 12% Lotion 225 Gm Btl) 1 gm EXT BID [facility] Stop: 10/19/23 21:27 Last Admin: 09/23/23 09:08 Dose: 1 gm Lactobacillus Acidophilus (Advanced Probiotic 1250 Mg Capsule) 2 cap PO DAILY [facility] Stop: 10/21/23 16:29 Last Admin: 09/23/23 09:10 Dose: 2 cap Miscellaneous (Carbohydrates For Hypoglycemia ) 15 - 30 gm PO UD PRN PRN Reason: Hypoglycemia Protocol Stop: 10/19/23 21:27 Nifedipine (Nifedipine Extended Rel 30 Mg Tabcr) 60 mg PO QAM [facility] Stop: 10/20/23 08:59 Last Admin: 09/23/23 09:10 Dose: 60 mg Ondansetron HCl (Ondansetron Inj 2 Mg/Ml 2 Ml Vial) 4 mg IV Q6H PRN PRN Reason: Nausea Stop: 10/19/23 21:27 Pantoprazole Sodium (Pantoprazole 40 Mg Tab) 40 mg PO DAILY [facility] Stop: 10/21/23 08:59 Last Admin: 09/23/23 09:09 Dose: 40 mg Polyethylene Glycol (Polyethylene (Miralax) 17 Gm Pack) 17 gm PO DAILY PRN PRN Reason: Constipation Stop: 10/19/23 21:27 Potassium Chloride (Potassium Chloride 10 Meq Tabcr) 10 meq PO BID [facility] Stop: 10/23/23 09:59 Last Admin: 09/23/23 11:59 Dose: 10 meq Torsemide (Torsemide 100 Mg Tab) 100 mg PO BID17 [facility] Stop: 10/23/23 16:59 (6) Right heart failure Heart failure chronicity: acute on chronic Qualified Code(s): I50.813 - Acute on chronic right heart failure (7) CKD (chronic kidney disease) stage 3, GFR 30-59 ml/min Chronic kidney disease stage 3 subtype: unspecified whether 3a or 3b Qualified Code(s): N18.30 - Chronic kidney disease, stage 3 unspecified
[2023-09-23] MEDS: TORSEMIDE 100 MG TAB PO SCH (18:54)
[2023-09-23] MEDS ORDERED: TORSEMIDE 100 MG TAB PO SCH (21:00)
--- NOTE | 2023-09-24 06:50 | Hospitalist Progress Note ---
Date of Service September 24, 2023 Assessment & Plan (1) Metabolic encephalopathy: (2) Hypercarbia: Plan: Patient is 53-year-old female with PMH insulin-dependent DM II, diabetic neuropathy, CKD III, HTN, HLD, chronic HFpEF, morbid obesity, history necrotizing fasciitis, bilateral lower extremity lymphedema, left chronic heel ulcer, iron deficiency anemia, and others listed below presented to ER from [facility] for reported altered mental status and shortness of breath. Today outpatient labs with elevated CO2. Patient presented to ER and was lethargic. In ER patient was afebrile, was 96% on 3 L nasal cannula. During my evaluation patient appears comfortable on BiPAP. She awakens to voice and light touch but not conversant. Initial VBG pH: 7.34, pCO2: 98, HCO3: 53. Repeat VBG 2 hours after BiPAP placed: pH: 7.4, pCO2: 81. Vitals P: 51, R: 19, BP 129/56, 97% on BiPAP No leukocytosis. Negative influenza, RSV, SARS-CoV-2 PCR CXR: No acute abnormalities and in particular no radiographic evidence of pneumonia. Likely metabolic encephalopathy secondary to hypercarbia. Suspect OHS CT head negative UA, urine drug screen negat. Continue BiPAP CBC, BMP am (3) Acute on chronic heart failure with preserved ejection fraction (HFpEF): Plan: History Echo 07/05/2023: EF: 55-60%, grade 1 diastolic dysfunction, right ventricle severely dilated, right ventricular systolic function mildly reduced, severe tricuspid regurgitation, moderate pulmonary hypertension Suspect acute on chronic CHF. Volume status difficult to assess with body habitus In ER given 80 mg Lasix IV BNP 181, troponin x3 14-17. EKG sinus bradycardia, RBBB Hold home torsemide 80 mg twice daily Heaton catheter. Monitor I's and O's, daily weights. low-sodium diet. FR 1.5 Cardiology consulted - held coreg for bradycardia, resumed at smaller dose as BP not controlled, cont. w/ diuresis, need for bipap 2/6 right sided chest pain reported,ECG obtained and seen by cardiology. Now resolved Nephrology consulted and following - switched IV bumex to PO torsemide 100 bid (4) Hyperkalemia: Plan: K: 5.3 Hold home potassium supplement monitor (5) CKD (chronic kidney disease) stage 3, GFR 30-59 ml/min: Plan: History of progressive CKD Cr: 1.6. Recent baseline~1.4. Recent DAHLIA Monitor renal functions, avoid nephrotoxic agents when possible Nephrology consulted - diuresing - on bumex -> switched to PO torsemide monitor BMP (6) HTN (hypertension): Plan: Stable Held carvedilol with d/t bradycardia, slowly resuming to control her BP hydralazine prn for HTN Continue nifedipine (7) Type 2 diabetes mellitus, with long-term current use of insulin: Plan: A1c: 7.7 on 08/25/2023 Continue basal bolus insulin (8) Lymphedema of both lower extremities: Plan: Patient was started on Keflex outpatient for reported leg cellulitis started on 09/15/2023 Currently does not appear cellulitic Placed on Rocephin on admission, stopped now. cont. to monitor (9) Chronic iron deficiency anemia: Plan: Hgb: 10.9. Baseline 9-10 Continue iron supplement (10) Neuropathy: Plan: Chronic neuropathy Hold gabapentin with altered mental status (11) Depression with anxiety: Plan: Hold olanzapine for now with altered mental status Continue Prozac DVT Prophylaxis Heparin SQ Full Code as per patient POLST form Follows with Dr Mayra Holley for routine care Admission and Anticipated Discharge Date Admission Date: September 19, 2023 Subjective Pt seen in follow up of altered mental status, likely from hypercarbia. , incr. volume status, and poss. leg cellulitis was placed on bipap in ED, started on IV diuresis cardiology and nephrology consulted Currently patient is sitting up in chair, on supplemental oxygen, she is awake alert and able to answer appropriately Diuresing well and using bipap at night. Currently denies any fever chills chest pain shortness of breath abdominal pain nausea vomiting. Nephrology following closely - on PO torsemide 100 bid now. Review of Systems Review of Systems: All systems reviewed & are unremarkable except as noted in Subjective Physical Exam Physical Exam: General: morbidly obese F in NAD, on suppl. O2 Head: normocephalic, atraumatic Eyes: EOM's intact, conjunctiva non-injected, anicteric ENT: normal inspection external ears, nose, mucous membranes moist Neck: supple Lungs: no respiratory distress, + crackles at bases CV: RRR, +2-3 LE edema b/l (improved) Abd: soft, obese, normal BS, no apparent tenderness to palpation Ext: moves extremities Neuro: Awake, alert, answers appropriately, speech fluent, no facial asymmetry, moves extremities Skin: warm, dry, BLE +dry skin with slight erythema without significant warmth Results & Data Results & Data Vital Signs (Past 12 Hours) Vital Signs Temp Pulse Pulse Resp BP Pulse Ox O2 Del Method 09/24/23 03:04 36.6 C 53 L 18 126/78 98 CPAP 09/24/23 02:30 63 20 97 09/23/23 23:28 53 L 09/23/23 22:49 36.5 C 51 L 20 127/72 96 CPAP 09/23/23 21:56 54 L 13 96 09/23/23 20:00 Nasal Cannula 09/23/23 19:48 36.8 C 61 18 132/52 L 95 Room Air 09/23/23 19:11 36.5 C 52 L 18 121/69 97 Nasal Cannula O2 Flow Rate FiO2 09/24/23 03:04 09/24/23 02:30 30 09/23/23 23:28 09/23/23 22:49 09/23/23 21:56 30 09/23/23 20:00 1 09/23/23 19:48 09/23/23 19:11 1 Medications Administered Current Inpatient Medications Acetaminophen (Acetaminophen 325 Mg Tab) 650 mg PO Q4H PRN PRN Reason: Pain or Fever Stop: 10/19/23 21:27 Aspirin (Aspirin 81 Mg Ectab) 81 mg PO QAM [facility] Stop: 10/20/23 08:59 Last Admin: 09/23/23 09:09 Dose: 81 mg Carvedilol (Carvedilol 3.125 Mg Tab) 3.125 mg PO BIDM [facility] Stop: 10/22/23 16:59 Last Admin: 09/23/23 18:03 Dose: Not Given Cyanocobalamin (Cyanocobalamin (B-12) 500 Mcg Tablet) 1,000 mcg PO DAILY [facility] Stop: 10/21/23 08:59 Last Admin: 09/23/23 09:10 Dose: 1,000 mcg Dextrose (Dextrose 50% 50 Ml Syringe) 25 - 50 ml IV UD PRN; Protocol PRN Reason: Hypoglycemia Protocol Stop: 10/19/23 21:27 Ferrous Sulfate (Ferrous Sulfate 325 Mg Tab) 325 mg PO DAILY [facility] Stop: 10/21/23 08:59 Last Admin: 09/23/23 09:10 Dose: 325 mg Fluoxetine HCl (Fluoxetine Hcl 20 Mg Cap) 20 mg PO DAILY [facility] Stop: 10/21/23 08:59 Last Admin: 09/23/23 09:10 Dose: 20 mg Glucagon (Glucagon For Inj 1 Mg Vial) 1 mg SQ UD PRN; Protocol PRN Reason: Hypoglycemia Protocol Stop: 10/19/23 21:27 Glucose (Glucose 10 Tab/Tube) 4 - 8 tab PO UD PRN; Protocol PRN Reason: Hypoglycemia Treatment Stop: 10/19/23 21:27 Glucose (Glucose 40% Gel 15 Gm Tube) 15 - 30 gm PO UD PRN; Protocol PRN Reason: Hypoglycemia Protocol Stop: 10/19/23 21:27 Heparin Sodium (Porcine) (Heparin Sod 5,000 Unit/0.5 Ml Vial) 7,500 units SQ Q12 [facility] Stop: 10/19/23 21:27 Last Admin: 09/23/23 21:17 Dose: 7,500 units Hydralazine HCl (Hydralazine Hcl 25 Mg Tab) 25 mg PO TID PRN PRN Reason: sbp > 165 Stop: 10/21/23 16:13 Last Admin: 09/22/23 10:14 Dose: 25 mg Insulin Aspart (Insulin Aspart Per Unit Charge) 0 units SC ACHS [facility] Stop: 10/19/23 21:27 Last Admin: 09/23/23 20:44 Dose: Not Given Insulin Glargine (Lantus Per Unit Charge) 0 units SQ BID [facility]; Protocol Stop: 10/19/23 21:27 Last Admin: 09/23/23 20:41 Dose: 7 units Lactic Acid (Ammonium Lactate 12% Lotion 225 Gm Btl) 1 gm EXT BID [facility] Stop: 10/19/23 21:27 Last Admin: 09/23/23 20:43 Dose: 1 gm Lactobacillus Acidophilus (Advanced Probiotic 1250 Mg Capsule) 2 cap PO DAILY [facility] Stop: 10/21/23 16:29 Last Admin: 09/23/23 09:10 Dose: 2 cap Miscellaneous (Carbohydrates For Hypoglycemia ) 15 - 30 gm PO UD PRN PRN Reason: Hypoglycemia Protocol Stop: 10/19/23 21:27 Nifedipine (Nifedipine Extended Rel 30 Mg Tabcr) 60 mg PO QAM [facility] Stop: 10/20/23 08:59 Last Admin: 09/23/23 09:10 Dose: 60 mg Ondansetron HCl (Ondansetron Inj 2 Mg/Ml 2 Ml Vial) 4 mg IV Q6H PRN PRN Reason: Nausea Stop: 10/19/23 21:27 Pantoprazole Sodium (Pantoprazole 40 Mg Tab) 40 mg PO DAILY [facility] Stop: 10/21/23 08:59 Last Admin: 09/23/23 09:09 Dose: 40 mg Polyethylene Glycol (Polyethylene (Miralax) 17 Gm Pack) 17 gm PO DAILY PRN PRN Reason: Constipation Stop: 10/19/23 21:27 Potassium Chloride (Potassium Chloride 10 Meq Tabcr) 10 meq PO BID [facility] Stop: 10/23/23 09:59 Last Admin: 09/23/23 20:43 Dose: 10 meq Torsemide (Torsemide 100 Mg Tab) 100 mg PO BID17 [facility] Stop: 10/23/23 16:59 Last Admin: 09/23/23 18:54 Dose: 100 mg (5) CKD (chronic kidney disease) stage 3, GFR 30-59 ml/min Chronic kidney disease stage 3 subtype: unspecified whether 3a or 3b Qualified Code(s): N18.30 - Chronic kidney disease, stage 3 unspecified (7) Type 2 diabetes mellitus, with long-term current use of insulin Diabetes mellitus complication status: without complication Qualified Code(s): E11.9 - Type 2 diabetes mellitus without complications; Z79.4 - USP (current) use of insulin
[2023-09-24 07:33] LABS: Base Excess VBG 18.5 mEq/L; HCO3 VBG 45 mmol/L; Oxygen Saturation VBG 90.9 %; PCO2 VBG 56 mmHg (38-50); PO2 VBG 59 mmHg; pH VBG 7.51 (7.36-7.41)
[2023-09-24 08:14] LABS: BUN Creatinine Ratio 32.7 (10-20); Creatinine Clr Calc Pharmacy 82.7 ml/min; Est GFR (African American) 63.8 ml/min; Est GFR (Non-African American) 55.1 ml/min; Magnesium 1.9 mg/dl (1.7-2.4); Potassium 3.7 mmol/L (3.5-5.1)
--- NOTE | 2023-09-24 09:59 | Nephrology Progress Note ---
Date of Service September 24, 2023 Assessment & Plan Admission and Anticipated Discharge Date Admission Date: September 19, 2023 Subjective Assessment & Plan (1) Right heart failure: Plan: acute on chronic; causes volume overload; also w/ pulm HTN. With BIpap she made lot more urine even though her diuretics dose currently is lower than outpt. Continue Demadex 100 bid to see how she responds po meds--made 2200 ml urine yesterday--may not even be enough to keep her hydration stable. We need daily wt as the only way to really have an idea about her fluid status. strict I/O continue 1.5L FR and <2 gm daily Na diet hard to assess fluid status with her morbid obesity. Weight if possible is more accurate. her current wt is still lot more than her discharge weight from few weeks ago. Also her serum Bicarb has been in the 40's for many day now--she needs this with her Compensation fro Chronic resp Acidosis. Vbg showed pH of 7.53 so has some alkalosis--from diuretics but also has Chronic Severe resp Acidosis from YVROSE/OVSyndrome. Check again in AM tomorrow to have better idea about the trend (2) CKD (chronic kidney disease) stage 3, GFR 30-59 ml/min: Plan: No clear baseline renal function --very labile. Has 2 gm proteinuria w/ negative serologic work up. Creat is even better today and this is the best it has been for a long time. Subjective used bipap overnight . made 2200 ml urine. Awake and alert. Normal speech now. Review of Systems Review of Systems: All systems reviewed & are unremarkable except as noted in Subjective Physical Exam Constitutional: well developed, + obese and cooperative Eyes: EOM intact bilaterally ENMT: Ears: no external ear abnormality Nose: no external nose abnormality Mouth: + dry oral mucous membranes Neck: no nuchal rigidity Respiratory: normal respiratory effort Auscultation: + diminished lung sounds Cardiovascular: Rate/Rhythm: regular rate and + bradycardic Extremities: + edema (2+) Gastrointestinal (Abdomen): Inspection/Auscultation: normal bowel sounds Percussion/Palpation: abdomen soft; abdomen nontender Musculoskeletal: Extremities: strength 5/5 throughout Skin: no rashes, warm and dry Psychiatric: Orientation: alert and oriented x 3 Results & Data Vital Signs (Past 12 Hours) Vital Signs Temp Pulse Pulse Resp BP Pulse Ox O2 Del Method 09/24/23 07:14 36.6 C 67 18 146/72 H 92 Nasal Cannula 09/24/23 03:04 36.6 C 53 L 18 126/78 98 CPAP 09/24/23 02:30 63 20 97 09/23/23 23:28 53 L 09/23/23 22:49 36.5 C 51 L 20 127/72 96 CPAP FiO2 09/24/23 07:14 09/24/23 03:04 09/24/23 02:30 30 09/23/23 23:28 09/23/23 22:49
--- NOTE | 2023-09-24 14:32 | Cardiology Progress Note ---
Date of Service September 24, 2023 Assessment & Plan (1) Hypercapnic respiratory failure: (2) Acute on chronic heart failure with preserved ejection fraction (HFpEF): (3) Metabolic encephalopathy: (4) Morbid obesity: (5) Pickwickian syndrome: (6) Right heart failure: (7) CKD (chronic kidney disease) stage 3, GFR 30-59 ml/min: Plan Complex 53-year-old female with chronic right heart failure secondary to morbid obesity and hypoventilation syndrome. Past hospitalization JuneJuly, with profound anasarca and right heart failure treated with aggressive diuresis successfully. Now presents with reaccumulation of at least 10 kg of fluid with additional hypercapnic respiratory failure Recommendations: Appreciate nephrology input and diuretic management Hold carvedilol given resting bradycardia. May consider reintroduction at lower dosing as needed for blood pressure. Hypoventilation treatment mandated. Will require CPAP/BiPAP during hospitalization and post discharge If renal function and potassium levels allow we will anticipate adding spironolactone possible [facility] will follow 09/21/2023 Impression: Hypercapnic respiratory failure secondary to hypoventilation/pickwickian syndrome. Chronic right heart failure past dilated right ventricle and right atrium, elevated pulmonary pressures on echocardiogram June 2023 Continue diuresis. Once again discussed mandated need for respiratory support at night Consider repeat echocardiogram once volume status improved Assess if renal function and past potassium levels allow spironolactone and/or Jardiance 09/22/23. Improving symptoms with aggressive diuresis. Good outputs. -9 L since admission. weight trending down. Renal function improving as well. Nephrology following. Patient remains hypertensive. Coreg resumed at 3.125 mg BID. dose limited due to mild bradycardia. CPAP encouraged. 09/23/23: Atypical chest pain non cardiac based description, reproducible by exam findings. No EKG findings. Ongoing diuresis noted with interval improvement in volume status. daily standing weight encouraged. Diuretics changed to oral Demadex by nephrology. Patient remains hypertensive. Coreg had been held this morning due to holding parameters. Discussed with nursing. Coreg to be given now. Dose limited due to bradycardia BIPAP encouraged. Consider regular dose of hydralazine or possible initiation of isordil if BP remains high with ongoing diuresis. 09/24/23 No recurrent chest pain. BP much improved over the last 24 hours. Tolerating PO diuretics. Encourage PT/OT and ambulation. Consider rehab? Will sign off. Please notify auctioneer tobacco cardiology provider with additional questions or concerns. Case discussed with Dr. Pack I spent a total of 30 minutes on the date of service in preparation, delivery, and documentation of the care provided to this patient, excluding any time spent in the performance of separately billed services. Mckenzie Munoz PA-C Department of Cardiology, [facility] This chart was completed in part utilizing Speech Voice Recognition Software. Grammatical errors, random word insertions, pronoun errors, and incomplete sentences are an occasional consequence of this system due to software limitations, ambient noise, and hardware issues. Any formal questions or concerns about the content, text, or information contained within the body of this dictation should be directly addressed to the provider for clarification. Admission and Anticipated Discharge Date Admission Date: September 19, 2023 Supervising Physician Co-Signing Physician Notes Attending attestation: Case reviewed with the advanced practitioner. I have personally performed a history and physical examination on the patient. I have reviewed the advanced practitioner's documentation on the date of service referenced in note, and I agree with, and take responsibility for the plan of care. Subjective: Patient is only subjective complaint at the time my assessment was nauseousness. She had similar symptoms when I had seen her on a previous admission. Exam: 2+ bilateral lower extremity edema, mild erythema Heaton catheter in place draining clear yellow urine Data: EKG performed 09/23/2023 at 9:14 AM revealed sinus rhythm at 63 bpm with right bundle branch block, unchanged compared to previous Impression/ Plan: Acute on chronic heart failure with preserved ejection fraction * Continue torsemide 100 mg p.o. twice daily. * Carvedilol reinstituted, 3.125 mg p.o. twice daily * Continue subcutaneous heparin for DVT prophylaxis. I spent a total of 20 minutes coordinating, documenting, and providing care for this patient excluding time spent in the performance of separately billed services or time spent by another provider. Jayce Pack, DO Subjective Patient resting in bed. Feeling ok. Prior complaints of atypical chest pain now resolved. Encouraged her to get out of bed today. She is now complaining of frequent diarrhea. No chest pain. No SOB. Edema remains about the same. Review of Systems Review of Systems: All systems reviewed & are unremarkable except as noted in HPI & below Physical Exam Constitutional: + morbidly obese; no acute distress Eyes: PERRL, conjunctivae normal, anicteric sclerae ENMT: external ear and nose normal, oropharynx normal Neck: trachea midline, no thyromegaly Respiratory: Auscultation: + diminished lung sounds Cardiovascular: Rate/Rhythm: regular rate and regular rhythm Heart Sounds: normal S1 and normal S2 Vessels: no JVD Extremities: + edema (2-3+ hard indurated) Results & Data Vital Signs (Past 12 Hours) Vital Signs Temp Pulse Pulse Resp BP Pulse Ox O2 Del Method 09/24/23 11:35 36.9 C 62 18 168/80 H 94 Nasal Cannula 09/24/23 08:00 Nasal Cannula 09/24/23 07:14 36.6 C 67 18 146/72 H 92 Nasal Cannula 09/24/23 03:04 36.6 C 53 L 18 126/78 98 CPAP 09/24/23 02:30 63 20 97 O2 Flow Rate FiO2 09/24/23 11:35 09/24/23 08:00 1 09/24/23 07:14 09/24/23 03:04 09/24/23 02:30 30 Laboratory Results Comprehensive Metabolic Panel 09/24/23 Range/Units 07:24 Sodium 142 (136-145) mmol/L Potassium 3.7 (3.5-5.1) mmol/L Chloride 95 L (98-107) mmol/L Carbon Dioxide 40 H (21-32) mmol/L BUN 37 H (6-23) mg/dl Creatinine 1.13 (0.6-1.2) mg/dl Glucose 119 H (70-99(Fasting)) mg/dl Calcium 9.0 (8.6-10.3) mg/dl Intake and Output 09/23/23 09/24/23 09/24/23 22:59 06:59 14:59 Intake Total 340 / 940 Output Total 250 / 2251 701 / 2251 851 / 851 Balance 90 / -1311 -701 / -1311 -851 / -851 Intake: Oral 340 / 940 Output: Urine Amount (Catheter) 250 / 2250 700 / 2250 850 / 850 Heaton/Indwelling 250 / 2250 700 / 2250 850 / 850 # Bowel Movements Other: Weight 130.9 kg Weight Measurement Method Standing Scale Diagnostic Findings Telemetry reviewed: Sinus bradycardia around 55 bmp Medications Administered Current Inpatient Medications Acetaminophen (Acetaminophen 325 Mg Tab) 650 mg PO Q4H PRN PRN Reason: Pain or Fever Stop: 10/19/23 21:27 Aspirin (Aspirin 81 Mg Ectab) 81 mg PO QAM [facility] Stop: 10/20/23 08:59 Last Admin: 09/24/23 08:59 Dose: 81 mg Carvedilol (Carvedilol 3.125 Mg Tab) 3.125 mg PO BIDM [facility] Stop: 10/22/23 16:59 Last Admin: 09/24/23 08:57 Dose: 3.125 mg Cyanocobalamin (Cyanocobalamin (B-12) 500 Mcg Tablet) 1,000 mcg PO DAILY [facility] Stop: 10/21/23 08:59 Last Admin: 09/24/23 08:59 Dose: 1,000 mcg Dextrose (Dextrose 50% 50 Ml Syringe) 25 - 50 ml IV UD PRN; Protocol PRN Reason: Hypoglycemia Protocol Stop: 10/19/23 21:27 Ferrous Sulfate (Ferrous Sulfate 325 Mg Tab) 325 mg PO DAILY [facility] Stop: 10/21/23 08:59 Last Admin: 09/24/23 08:59 Dose: 325 mg Fluoxetine HCl (Fluoxetine Hcl 20 Mg Cap) 20 mg PO DAILY [facility] Stop: 10/21/23 08:59 Last Admin: 09/24/23 08:59 Dose: 20 mg Glucagon (Glucagon For Inj 1 Mg Vial) 1 mg SQ UD PRN; Protocol PRN Reason: Hypoglycemia Protocol Stop: 10/19/23 21:27 Glucose (Glucose 10 Tab/Tube) 4 - 8 tab PO UD PRN; Protocol PRN Reason: Hypoglycemia Treatment Stop: 10/19/23 21:27 Glucose (Glucose 40% Gel 15 Gm Tube) 15 - 30 gm PO UD PRN; Protocol PRN Reason: Hypoglycemia Protocol Stop: 10/19/23 21:27 Heparin Sodium (Porcine) (Heparin Sod 5,000 Unit/0.5 Ml Vial) 7,500 units SQ Q12 [facility] Stop: 10/19/23 21:27 Last Admin: 09/24/23 10:02 Dose: 7,500 units Hydralazine HCl (Hydralazine Hcl 25 Mg Tab) 25 mg PO TID PRN PRN Reason: sbp > 165 Stop: 10/21/23 16:13 Last Admin: 09/22/23 10:14 Dose: 25 mg Insulin Aspart (Insulin Aspart Per Unit Charge) 0 units SC ACHS [facility] Stop: 10/19/23 21:27 Last Admin: 09/24/23 12:22 Dose: 4 units Insulin Glargine (Lantus Per Unit Charge) 0 units SQ BID [facility]; Protocol Stop: 10/19/23 21:27 Last Admin: 09/24/23 08:23 Dose: 7 units Lactic Acid (Ammonium Lactate 12% Lotion 225 Gm Btl) 1 gm EXT BID [facility] Stop: 10/19/23 21:27 Last Admin: 09/24/23 08:58 Dose: 1 gm Lactobacillus Acidophilus (Advanced Probiotic 1250 Mg Capsule) 2 cap PO DAILY [facility] Stop: 10/21/23 16:29 Last Admin: 09/24/23 09:00 Dose: 2 cap Miscellaneous (Carbohydrates For Hypoglycemia ) 15 - 30 gm PO UD PRN PRN Reason: Hypoglycemia Protocol Stop: 10/19/23 21:27 Nifedipine (Nifedipine Extended Rel 30 Mg Tabcr) 60 mg PO QAM [facility] Stop: 10/20/23 08:59 Last Admin: 09/24/23 09:00 Dose: 60 mg Ondansetron HCl (Ondansetron Inj 2 Mg/Ml 2 Ml Vial) 4 mg IV Q6H PRN PRN Reason: Nausea Stop: 10/19/23 21:27 Pantoprazole Sodium (Pantoprazole 40 Mg Tab) 40 mg PO DAILY [facility] Stop: 10/21/23 08:59 Last Admin: 09/24/23 09:00 Dose: 40 mg Polyethylene Glycol (Polyethylene (Miralax) 17 Gm Pack) 17 gm PO DAILY PRN PRN Reason: Constipation Stop: 10/19/23 21:27 Potassium Chloride (Potassium Chloride 10 Meq Tabcr) 10 meq PO BID [facility] Stop: 10/23/23 09:59 Last Admin: 09/24/23 09:00 Dose: 10 meq Torsemide (Torsemide 100 Mg Tab) 100 mg PO BID17 [facility] Stop: 10/23/23 16:59 Last Admin: 09/24/23 09:01 Dose: 100 mg (6) Right heart failure Heart failure chronicity: acute on chronic Qualified Code(s): I50.813 - Acute on chronic right heart failure (7) CKD (chronic kidney disease) stage 3, GFR 30-59 ml/min Chronic kidney disease stage 3 subtype: unspecified whether 3a or 3b Qualified Code(s): N18.30 - Chronic kidney disease, stage 3 unspecified
[2023-09-25] MEDS: ONDANSETRON INJ 2 MG/ML 2 ML VIAL IV PRN (06:39)
[2023-09-25 07:26] LABS: HCO3 VBG 44 mmol/L; PCO2 VBG 61 mmHg (38-50); PO2 VBG 54 mmHg; pH VBG 7.47 (7.36-7.41)
[2023-09-25 07:38] LABS: Hematocrit (blood only) 34.4 % (37.0-47.0); Hemoglobin 10.5 g/dl (12.0-16.0); Mean Corpuscular Hemoglobin 28.2 pg (25.0-34.0); Mean Corpuscular Hgb Conc 30.5 g/dL (32.0-36.0); Mean Corpuscular Volume 92.2 fL (80.0-100.0); Mean Platelet Volume 11.9 fL (9.4-12.4); Platelet Count 164 K/uL (130-400); RDW Standard Deviation 47.8 fL (36.4-46.3); Red Blood Count 3.73 M/uL (4.20-5.40); White Blood Count 4.61 K/ul (4.8-10.8)
[2023-09-25 07:58] LABS: BUN Creatinine Ratio 27.7 (10-20); Calcium 9.3 mg/dl (8.6-10.3); Creatinine Clr Calc Pharmacy 82.4 ml/min; Est GFR (African American) 64.5 ml/min; Est GFR (Non-African American) 55.6 ml/min; Magnesium 1.9 mg/dl (1.7-2.4); Phosphorus 4.3 mg/dl (2.5-4.9); Potassium 3.9 mmol/L (3.5-5.1)
--- NOTE | 2023-09-25 10:33 | Nephrology Progress Note ---
Date of Service September 25, 2023 Assessment & Plan Admission and Anticipated Discharge Date Admission Date: September 19, 2023 Subjective Assessment & Plan (1) Right heart failure: 2 DAHLIA 3 CKD Plan: acute on chronic; causes volume overload; also w/ pulm HTN. She absolutely needs Bipap--ideally 10-12 hrs per day !! Continue Demadex 100 bid--made 3150 ml urine yesterday--this may be enough We need daily wt as the only way to really have an idea about her fluid status. strict I/O continue 1.5L FR and <2 gm daily Na diet hard to assess fluid status with her morbid obesity. Weight if possible is more accurate. her current wt is still lot more than her discharge weight from few weeks ago. Also her serum Bicarb has been in the 40's for many day now--she needs this with her Compensation fro Chronic resp Acidosis. 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 very difficult VBG to interpret. Check again in AM tomorrow to have better idea about the trend (2) CKD (chronic kidney disease) stage 3, GFR 30-59 ml/min: Plan: No clear baseline renal function --very labile. Has 2 gm proteinuria w/ negative serologic work up. Creat is even better today and this is the best it has been for a long time. Case discussed with primary team regarding Discharge planning Subjective used bipap overnight. made 3150 ml urine. Awake and alert. Normal speech now. No confusion at all. Review of Systems Review of Systems: All systems reviewed & are unremarkable except as noted in Subjective Physical Exam Constitutional: well developed, + obese and cooperative Eyes: EOM intact bilaterally ENMT: Ears: no external ear abnormality Nose: no external nose abnormality Mouth: + dry oral mucous membranes Neck: no nuchal rigidity Respiratory: normal respiratory effort Auscultation: + diminished lung sounds Cardiovascular: Rate/Rhythm: regular rate and + bradycardic Extremities: + edema (2+) Gastrointestinal (Abdomen): Inspection/Auscultation: normal bowel sounds Percussion/Palpation: abdomen soft; abdomen nontender Musculoskeletal: Extremities: strength 5/5 throughout Skin: no rashes, warm and dry Psychiatric: Orientation: alert and oriented x 3 Results & Data Vital Signs (Past 12 Hours) Vital Signs Temp Pulse Pulse Resp BP BP Pulse Ox 09/25/23 08:00 09/25/23 07:39 36.6 C 68 18 166/70 H 94 09/25/23 03:23 36.9 C 62 18 140/82 96 09/24/23 23:00 54 L 09/24/23 22:53 36.7 C 59 L 18 146/76 H 98 O2 Del Method O2 Flow Rate 09/25/23 08:00 Nasal Cannula 1 09/25/23 07:39 Room Air 09/25/23 03:23 Nasal Cannula 1 09/24/23 23:00 09/24/23 22:53 Nasal Cannula 1
--- NOTE | 2023-09-25 19:20 | Hospitalist Progress Note ---
Date of Service September 25, 2023 Assessment & Plan (1) Metabolic encephalopathy: (2) Hypercarbia: Plan: Patient is 53-year-old female with PMH insulin-dependent DM II, diabetic neuropathy, CKD III, HTN, HLD, chronic HFpEF, morbid obesity, history necrotizing fasciitis, bilateral lower extremity lymphedema, left chronic heel ulcer, iron deficiency anemia, and others listed below presented to ER from [facility] for reported altered mental status and shortness of breath. Today outpatient labs with elevated CO2. Patient presented to ER and was lethargic. In ER patient was afebrile, was 96% on 3 L nasal cannula. During my evaluation patient appears comfortable on BiPAP. She awakens to voice and light touch but not conversant. Initial VBG pH: 7.34, pCO2: 98, HCO3: 53. Repeat VBG 2 hours after BiPAP placed: pH: 7.4, pCO2: 81. Vitals P: 51, R: 19, BP 129/56, 97% on BiPAP No leukocytosis. Negative influenza, RSV, SARS-CoV-2 PCR CXR: No acute abnormalities and in particular no radiographic evidence of pneumonia. Likely metabolic encephalopathy secondary to hypercarbia. Suspect OHS CT head negative UA, urine drug screen negat. Continue BiPAP CBC, BMP am (3) Acute on chronic heart failure with preserved ejection fraction (HFpEF): Plan: History Echo 07/05/2023: EF: 55-60%, grade 1 diastolic dysfunction, right ventricle severely dilated, right ventricular systolic function mildly reduced, severe tricuspid regurgitation, moderate pulmonary hypertension Suspect acute on chronic CHF. Volume status difficult to assess with body habitus In ER given 80 mg Lasix IV BNP 181, troponin x3 14-17. EKG sinus bradycardia, RBBB Hold home torsemide 80 mg twice daily Heaton catheter. Monitor I's and O's, daily weights. low-sodium diet. FR 1.5 Cardiology consulted - held coreg for bradycardia, resumed at smaller dose as BP not controlled, cont. w/ diuresis, need for bipap Nephrology consulted and following - switched IV bumex to PO torsemide 100 bid (4) Hyperkalemia: Plan: K: 5.3 Hold home potassium supplement monitor (5) CKD (chronic kidney disease) stage 3, GFR 30-59 ml/min: Plan: History of progressive CKD Cr: 1.6. Recent baseline~1.4. Recent DAHLIA Monitor renal functions, avoid nephrotoxic agents when possible Nephrology consulted - diuresing - on bumex -> switched to PO torsemide monitor BMP (6) HTN (hypertension): Plan: Stable Held carvedilol with d/t bradycardia, slowly resuming to control her BP hydralazine prn for HTN Continue nifedipine (7) Type 2 diabetes mellitus, with long-term current use of insulin: Plan: A1c: 7.7 on 08/25/2023 Continue basal bolus insulin (8) Lymphedema of both lower extremities: Plan: Patient was started on Keflex outpatient for reported leg cellulitis started on 09/15/2023 Currently does not appear cellulitic Placed on Rocephin on admission, stopped now. cont. to monitor (9) Chronic iron deficiency anemia: Plan: Hgb: 10.9. Baseline 9-10 Continue iron supplement (10) Neuropathy: Plan: Chronic neuropathy Hold gabapentin with altered mental status (11) Depression with anxiety: Plan: Hold olanzapine for now with altered mental status Continue Prozac DVT Prophylaxis Heparin SQ Full Code as per patient POLST form Follows with Dr Mayra Holley for routine care Admission and Anticipated Discharge Date Admission Date: September 19, 2023 Subjective Pt seen in follow up of altered mental status, likely from hypercarbia. , incr. volume status, and poss. leg cellulitis was placed on bipap in ED, started on IV diuresis cardiology and nephrology consulted Currently patient is sitting up in chair, on supplemental oxygen, she is awake alert and able to answer appropriately Diuresing well and using bipap at night. Currently denies any fever chills chest pain shortness of breath abdominal pain nausea vomiting. loose stools - c. diff negative Nephrology following closely - on PO torsemide 100 bid now. Review of Systems Review of Systems: All systems reviewed & are unremarkable except as noted in Subjective Physical Exam Physical Exam: General: morbidly obese F in NAD, on suppl. O2 Head: normocephalic, atraumatic Eyes: EOM's intact, conjunctiva non-injected, anicteric ENT: normal inspection external ears, nose, mucous membranes moist Neck: supple Lungs: no respiratory distress, + crackles at bases CV: RRR, +2-3 LE edema b/l (improved) Abd: soft, obese, normal BS, no apparent tenderness to palpation Ext: moves extremities Neuro: Awake, alert, answers appropriately, speech fluent, no facial asymmetry, moves extremities Skin: warm, dry, BLE +dry skin with slight erythema without significant warmth Results & Data Results & Data Vital Signs (Past 12 Hours) Vital Signs Temp Pulse Resp BP BP Pulse Ox O2 Del Method 09/25/23 19:11 36.8 C 55 L 20 119/81 97 Nasal Cannula 09/25/23 15:45 36.9 C 58 L 18 158/70 H 97 Room Air 09/25/23 11:33 37.0 C 63 18 178/71 H 95 Room Air 09/25/23 08:00 Nasal Cannula 09/25/23 07:39 36.6 C 68 18 166/70 H 94 Room Air O2 Flow Rate 09/25/23 19:11 1 09/25/23 15:45 09/25/23 11:33 09/25/23 08:00 1 09/25/23 07:39 Laboratory Results 09/25/23 09/25/23 09/25/23 Range/Units 16:07 11:19 09:15 WBC (4.8-10.8) K/ul RBC (4.20-5.40) M/uL Hgb (12.0-16.0) g/dl Hct (37.0-47.0) % MCV (80.0-100.0) fL MCH (25.0-34.0) pg MCHC (32.0-36.0) g/dL RDW Std Deviation (36.4-46.3) fL RDW Coeff of Mya (11.5-14.5) % Plt Count (130-400) K/uL MPV (9.4-12.4) fL VBG pH (7.36-7.41) VBG pCO2 (38-50) mmHg VBG pO2 mmHg VBG HCO3 mmol/L VBG O2 Saturation % VBG Base Excess mEq/L Sodium (136-145) mmol/L Potassium (3.5-5.1) mmol/L Chloride (98-107) mmol/L Carbon Dioxide (21-32) mmol/L Anion Gap (3-11) BUN (6-23) mg/dl Creatinine (0.6-1.2) mg/dl Est Cr Clr Drug Dosing ml/min Est GFR ( Amer) ml/min Est GFR (Non-Af Amer) ml/min BUN/Creatinine Ratio (10-20) Glucose (70-99(Fasting)) mg/dl POC Glucose 129 H 139 H (70-99) mg/dl Calcium (8.6-10.3) mg/dl Phosphorus (2.5-4.9) mg/dl Magnesium (1.7-2.4) mg/dl Stl C. diff Tox B Gene Negative Cdiff Gene (Neg) 09/25/23 09/25/23 09/24/23 Range/Units 07:25 07:09 19:58 WBC 4.61 L (4.8-10.8) K/ul RBC 3.73 L (4.20-5.40) M/uL Hgb 10.5 L (12.0-16.0) g/dl Hct 34.4 L (37.0-47.0) % MCV 92.2 (80.0-100.0) fL MCH 28.2 (25.0-34.0) pg MCHC 30.5 L (32.0-36.0) g/dL RDW Std Deviation 47.8 H (36.4-46.3) fL RDW Coeff of Mya 14.0 (11.5-14.5) % Plt Count 164 (130-400) K/uL MPV 11.9 (9.4-12.4) fL VBG pH 7.47 H (7.36-7.41) VBG pCO2 61 H (38-50) mmHg VBG pO2 54 mmHg VBG HCO3 44 mmol/L VBG O2 Saturation 88.0 % VBG Base Excess 18.0 mEq/L Sodium 142 (136-145) mmol/L Potassium 3.9 (3.5-5.1) mmol/L Chloride 96 L (98-107) mmol/L Carbon Dioxide 39 H (21-32) mmol/L Anion Gap 7 (3-11) BUN 31 H (6-23) mg/dl Creatinine 1.12 (0.6-1.2) mg/dl Est Cr Clr Drug Dosing 82.4 ml/min Est GFR ( Amer) 64.5 ml/min Est GFR (Non-Af Amer) 55.6 ml/min BUN/Creatinine Ratio 27.7 H (10-20) Glucose 110 H (70-99(Fasting)) mg/dl POC Glucose 112 H 98 (70-99) mg/dl Calcium 9.3 (8.6-10.3) mg/dl Phosphorus 4.3 (2.5-4.9) mg/dl Magnesium 1.9 (1.7-2.4) mg/dl Stl C. diff Tox B Gene (Neg) Medications Administered Current Inpatient Medications Acetaminophen (Acetaminophen 325 Mg Tab) 650 mg PO Q4H PRN PRN Reason: Pain or Fever Stop: 10/19/23 21:27 Aspirin (Aspirin 81 Mg Ectab) 81 mg PO QAM [facility] Stop: 10/20/23 08:59 Last Admin: 09/25/23 08:35 Dose: 81 mg Carvedilol (Carvedilol 3.125 Mg Tab) 3.125 mg PO BIDM [facility] Stop: 10/22/23 16:59 Last Admin: 09/25/23 16:46 Dose: Not Given Cyanocobalamin (Cyanocobalamin (B-12) 500 Mcg Tablet) 1,000 mcg PO DAILY MOHAMUD Stop: 10/21/23 08:59 Last Admin: 09/25/23 08:35 Dose: 1,000 mcg Dextrose (Dextrose 50% 50 Ml Syringe) 25 - 50 ml IV UD PRN; Protocol PRN Reason: Hypoglycemia Protocol Stop: 10/19/23 21:27 Ferrous Sulfate (Ferrous Sulfate 325 Mg Tab) 325 mg PO DAILY [facility] Stop: 10/21/23 08:59 Last Admin: 09/25/23 08:36 Dose: 325 mg Fluoxetine HCl (Fluoxetine Hcl 20 Mg Cap) 20 mg PO DAILY MOHAMUD Stop: 10/21/23 08:59 Last Admin: 09/25/23 08:35 Dose: 20 mg Glucagon (Glucagon For Inj 1 Mg Vial) 1 mg SQ UD PRN; Protocol PRN Reason: Hypoglycemia Protocol Stop: 10/19/23 21:27 Glucose (Glucose 10 Tab/Tube) 4 - 8 tab PO UD PRN; Protocol PRN Reason: Hypoglycemia Treatment Stop: 10/19/23 21:27 Glucose (Glucose 40% Gel 15 Gm Tube) 15 - 30 gm PO UD PRN; Protocol PRN Reason: Hypoglycemia Protocol Stop: 10/19/23 21:27 Heparin Sodium (Porcine) (Heparin Sod 5,000 Unit/0.5 Ml Vial) 7,500 units SQ Q12 MOHAMUD Stop: 10/19/23 21:27 Last Admin: 09/25/23 08:36 Dose: 7,500 units Hydralazine HCl (Hydralazine Hcl 25 Mg Tab) 25 mg PO TID PRN PRN Reason: sbp > 165 Stop: 10/21/23 16:13 Last Admin: 09/22/23 10:14 Dose: 25 mg Insulin Aspart (Insulin Aspart Per Unit Charge) 0 units SC ACHS MOHAMUD Stop: 10/19/23 21:27 Last Admin: 09/25/23 17:51 Dose: 4 units Insulin Glargine (Lantus Per Unit Charge) 0 units SQ BID [facility]; Protocol Stop: 10/19/23 21:27 Last Admin: 09/25/23 08:47 Dose: 7 units Lactic Acid (Ammonium Lactate 12% Lotion 225 Gm Btl) 1 gm EXT BID [facility] Stop: 10/19/23 21:27 Last Admin: 09/25/23 08:41 Dose: 1 gm Lactobacillus Acidophilus (Advanced Probiotic 1250 Mg Capsule) 2 cap PO DAILY [facility] Stop: 10/21/23 16:29 Last Admin: 09/25/23 08:35 Dose: 2 cap Miscellaneous (Carbohydrates For Hypoglycemia ) 15 - 30 gm PO UD PRN PRN Reason: Hypoglycemia Protocol Stop: 10/19/23 21:27 Nifedipine (Nifedipine Extended Rel 30 Mg Tabcr) 60 mg PO QAM [facility] Stop: 10/20/23 08:59 Last Admin: 09/25/23 08:35 Dose: 60 mg Ondansetron HCl (Ondansetron Inj 2 Mg/Ml 2 Ml Vial) 4 mg IV Q6H PRN PRN Reason: Nausea Stop: 10/19/23 21:27 Last Admin: 09/25/23 06:39 Dose: 4 mg Pantoprazole Sodium (Pantoprazole 40 Mg Tab) 40 mg PO DAILY [facility] Stop: 10/21/23 08:59 Last Admin: 09/25/23 08:35 Dose: 40 mg Polyethylene Glycol (Polyethylene (Miralax) 17 Gm Pack) 17 gm PO DAILY PRN PRN Reason: Constipation Stop: 10/19/23 21:27 Potassium Chloride (Potassium Chloride 10 Meq Tabcr) 10 meq PO BID [facility] Stop: 10/23/23 09:59 Last Admin: 09/25/23 08:37 Dose: 10 meq Torsemide (Torsemide 100 Mg Tab) 100 mg PO [id number] MOHAMUD Stop: 10/23/23 16:59 Last Admin: 09/25/23 16:33 Dose: 100 mg (5) CKD (chronic kidney disease) stage 3, GFR 30-59 ml/min Chronic kidney disease stage 3 subtype: unspecified whether 3a or 3b Qualified Code(s): N18.30 - Chronic kidney disease, stage 3 unspecified (7) Type 2 diabetes mellitus, with long-term current use of insulin Diabetes mellitus complication status: without complication Qualified C ode(s): E11.9 - Type 2 diabetes mellitus without complications; Z79.4 - 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
[2023-09-26 08:04] LABS: BUN Creatinine Ratio 22.7 (10-20); Calcium 9.5 mg/dl (8.6-10.3); Creatinine Clr Calc Pharmacy 69.2 ml/min; Est GFR (African American) 52.9 ml/min; Est GFR (Non-African American) 45.6 ml/min; Phosphorus 4.3 mg/dl (2.5-4.9); Potassium 4.2 mmol/L (3.5-5.1)
--- NOTE | 2023-09-26 08:52 | Nephrology Progress Note ---
Date of Service September 26, 2023 Assessment & Plan Admission and Anticipated Discharge Date Admission Date: September 19, 2023 Subjective Assessment & Plan (1) Right heart failure: 2 DAHLIA on background CKD Plan: acute on chronic; causes volume overload; also w/ pulm HTN. She absolutely needs Bipap--ideally 10-12 hrs per day !! Continue Demadex 100 bid--made 2800 ml urine yesterday We need daily wt as the only way to really have an idea about her fluid status. strict I/O continue 1.5L FR and <2 gm daily Na diet hard to assess fluid status with her morbid obesity. Weight if possible is more accurate. her current wt is still lot more than her discharge weight from few weeks ago. Also her serum Bicarb has been in the 40's for many day now--she needs this with her Compensation fro Chronic resp Acidosis. 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 very difficult VBG to interpret. Check again in AM tomorrow to have better idea about the trend (2) CKD (chronic kidney disease) stage 3, GFR 30-59 ml/min: Plan: No clear baseline renal function --very labile. Creat goes up and then down without any clear pattern with Diuretics dosing. Has 2 gm proteinuria w/ negative serologic work up. As long as creat is less than 2 , may be an optimal Compromise. Case discussed with primary team regarding Discharge planning Continue Demadex 100 bid--made 2800 ml urine yesterday She may need weekly renal labs at the [facility]. No clear baseline renal function --very labile. Creat goes up and then down without any clear pattern with Diuretics dosing. As long as creat is less than 2 BUN less than 80 may be an optimal Compromise with her Diuretics/Fluid status nephrology follow up with me--in person or telemed within next 2 weeks Subjective used bipap overnight. made 2800 ml urine. Awake and alert. Normal speech now. No confusion at all. Review of Systems Review of Systems: All systems reviewed & are unremarkable except as noted in Subjective Physical Exam Constitutional: well developed, + obese and cooperative Eyes: EOM intact bilaterally ENMT: Ears: no external ear abnormality Nose: no external nose abnormality Mouth: + dry oral mucous membranes Neck: no nuchal rigidity Respiratory: normal respiratory effort Auscultation: + diminished lung sounds Cardiovascular: Rate/Rhythm: regular rate and + bradycardic Extremities: + edema (2+) Gastrointestinal (Abdomen): Inspection/Auscultation: normal bowel sounds Percussion/Palpation: abdomen soft; abdomen nontender Musculoskeletal: Extremities: strength 5/5 throughout Skin: no rashes, warm and dry Psychiatric: Orientation: alert and oriented x 3 Results & Data Vital Signs (Past 12 Hours) Vital Signs Temp Pulse Pulse Resp BP Pulse Ox O2 Del Method 09/26/23 07:40 Nasal Cannula 09/26/23 07:08 37.0 C 62 20 186/82 H 99 Nasal Cannula 09/26/23 03:09 57 L 14 98 09/26/23 03:05 37.0 C 60 21 177/82 H 99 BiPAP 09/25/23 23:06 36.7 C 74 18 122/77 96 BiPAP 09/25/23 23:00 59 L 09/25/23 22:26 57 L 16 98 O2 Flow Rate FiO2 09/26/23 07:40 09/26/23 07:08 1 09/26/23 03:09 30 09/26/23 03:05 30 09/25/23 23:06 30 09/25/23 23:00 09/25/23 22:26 30
--- NOTE | 2023-09-26 15:29 | Hospitalist Progress Note ---
Date of Service September 26, 2023 Assessment & Plan (1) CHF (congestive heart failure): Plan: Per Dr. Liu's notes with addendum: (1) Metabolic encephalopathy: (2) Hypercarbia: Plan: Patient is 53-year-old female with PMH insulin-dependent DM II, diabetic neuropathy, CKD III, HTN, HLD, chronic HFpEF, morbid obesity, history necrotizing fasciitis, bilateral lower extremity lymphedema, left chronic heel ulcer, iron deficiency anemia, and others listed below presented to ER from [facility] for reported altered mental status and shortness of breath. Today outpatient labs with elevated CO2. Patient presented to ER and was lethargic. In ER patient was afebrile, was 96% on 3 L nasal cannula. During my evaluation patient appears comfortable on BiPAP. She awakens to voice and light touch but not conversant. Initial VBG pH: 7.34, pCO2: 98, HCO3: 53. Repeat VBG 2 hours after BiPAP placed: pH: 7.4, pCO2: 81. Vitals P: 51, R: 19, BP 129/56, 97% on BiPAP No leukocytosis. Negative influenza, RSV, SARS-CoV-2 PCR CXR: No acute abnormalities and in particular no radiographic evidence of pneumonia. Likely metabolic encephalopathy secondary to hypercarbia. Suspect OHS CT head pending UA, urine drug screen pending Continue BiPAP N.p.o. while on BiPAP CBC, BMP, VBG in a.m. 09/26 Resolved Back to baseline mental status (3) Acute on chronic heart failure with preserved ejection fraction (HFpEF): Plan: History Echo 07/05/2023: EF: 55-60%, grade 1 diastolic dysfunction, right ventricle severely dilated, right ventricular systolic function mildly reduced, severe tricuspid regurgitation, moderate pulmonary hypertension Suspect acute on chronic CHF. Volume status difficult to assess with body habitus In ER given 80 mg Lasix IV BNP, troponin pending. EKG sinus bradycardia, RBBB Lasix 80 mg IV twice daily. Hold home torsemide 80 mg twice daily Heaton catheter. Monitor I's and O's, daily weights. When condition improves and can have diet plan for low-sodium diet Cardiology consult 09/26 Back on torsemide 80 mg twice daily Creatinine 1.3 Monitor close (4) Hyperkalemia: Plan: Resolved (5) CKD (chronic kidney disease) stage 3, GFR 30-59 ml/min: Plan: History of progressive CKD Cr: 1.6. Recent baseline~1.4. Recent DAHLIA Monitor renal functions, avoid nephrotoxic agents when possible Nephrology consult Mostly back to baseline (6) HTN (hypertension): Plan: Stable Hold carvedilol with current bradycardia Hold hydralazine Continue nifedipine Monitor closely (7) Type 2 diabetes mellitus, with long-term current use of insulin: Plan: A1c: 7.7 on 08/25/2023 Continue basal bolus insulin (8) Lymphedema of both lower extremities: Plan: Patient was started on Keflex outpatient for reported leg cellulitis started on 09/15/2023 Currently does not appear cellulitic Will place on Rocephin for now and monitor Monitor closely (9) Chronic iron deficiency anemia: Plan: Hgb: 10.9. Baseline 9-10 Continue iron supplement (10) Neuropathy: Plan: Chronic neuropathy Hold gabapentin with altered mental status (11) Depression with anxiety: Plan: Hold olanzapine for now with altered mental status Plan to continue Prozac when able to take p.o. DVT Prophylaxis Heparin SQ Full Code as per patient POLST form Follows with Dr Mayra Holley for routine care Admission and Anticipated Discharge Date Admission Date: September 19, 2023 Subjective Follow-up for CHF, etc. Seen resting in bedside chair, sitting up, comfortable, on 2 L of oxygen States she feels improving overall No shortness of breath, leg pain No other new symptoms Review of Systems Review of Systems: all noted and negative except for above Physical Exam Physical Exam: General- oriented x 3, not in distress, speaks in sentences with no effort or accessory muscle use Eyes- anicteric Neck- no JVD Lungs- clear breath sounds bilaterally, no rales/wheezes Heart- normal rate, regular rhythm; no murmurs Abdomen- normal bowel sounds, nondistended, soft, nontender Extremities-mild lower extremity edema, no calf tenderness Neuro- alert, oriented x 3; no gross focal neurologic deficits Skin- warm & dry Results & Data Results & Data Vital Signs (Past 12 Hours) Vital Signs Temp Pulse Pulse Resp BP BP Pulse Ox 09/26/23 11:47 09/26/23 11:26 36.4 C L 56 L 145/79 H 96 09/26/23 07:40 02/09/24 07:08 37.0 C 62 20 186/82 H 99 09/26/23 07:00 66 O2 Del Method O2 Del Method O2 Flow Rate O2 Flow Rate 09/26/23 11:47 Nasal Cannula 1 09/26/23 11:26 Nasal Cannula 1 09/26/23 07:40 Nasal Cannula 09/26/23 07:08 Nasal Cannula 1 09/26/23 07:00 all noted and reviewed including below (1) CHF (congestive heart failure) Heart failure chronicity: acute on chronic Heart failure type: unspecified Qualified Code(s): I50.9 - Heart failure, unspecified
[2023-09-26] MEDS: ACETAMINOPHEN 325 MG TAB PO PRN (20:44)
[2023-09-27 09:55] LABS: BUN Creatinine Ratio 23.8 (10-20); Calcium 9.7 mg/dl (8.6-10.3); Creatinine Clr Calc Pharmacy 70.2 ml/min; Est GFR (African American) 53.9 ml/min; Est GFR (Non-African American) 46.5 ml/min
--- NOTE | 2023-09-27 17:43 | Hospitalist Progress Note ---
Date of Service September 27, 2023 Assessment & Plan (1) CHF (congestive heart failure): Plan: Per Dr. Liu's notes with addendum: (1) Metabolic encephalopathy: (2) Hypercarbia: Plan: Patient is 53-year-old female with PMH insulin-dependent DM II, diabetic neuropathy, CKD III, HTN, HLD, chronic HFpEF, morbid obesity, history necrotizing fasciitis, bilateral lower extremity lymphedema, left chronic heel ulcer, iron deficiency anemia, and others listed below presented to ER from [facility] for reported altered mental status and shortness of breath. Today outpatient labs with elevated CO2. Patient presented to ER and was lethargic. In ER patient was afebrile, was 96% on 3 L nasal cannula. During my evaluation patient appears comfortable on BiPAP. She awakens to voice and light touch but not conversant. Initial VBG pH: 7.34, pCO2: 98, HCO3: 53. Repeat VBG 2 hours after BiPAP placed: pH: 7.4, pCO2: 81. Vitals P: 51, R: 19, BP 129/56, 97% on BiPAP No leukocytosis. Negative influenza, RSV, SARS-CoV-2 PCR CXR: No acute abnormalities and in particular no radiographic evidence of pneumonia. Likely metabolic encephalopathy secondary to hypercarbia. Suspect OHS CT head pending UA, urine drug screen pending Continue BiPAP N.p.o. while on BiPAP CBC, BMP, VBG in a.m. 09/27 Resolved Back to baseline mental status (3) Acute on chronic heart failure with preserved ejection fraction (HFpEF): Plan: History Echo 07/05/2023: EF: 55-60%, grade 1 diastolic dysfunction, right ventricle severely dilated, right ventricular systolic function mildly reduced, severe tricuspid regurgitation, moderate pulmonary hypertension Suspect acute on chronic CHF. Volume status difficult to assess with body habitus In ER given 80 mg Lasix IV BNP, troponin pending. EKG sinus bradycardia, RBBB Lasix 80 mg IV twice daily. Hold home torsemide 80 mg twice daily Heaton catheter. Monitor I's and O's, daily weights. When condition improves and can have diet plan for low-sodium diet Cardiology consult 09/27 Back on torsemide 80 mg twice daily Creatinine 1.3 Monitor closely having some dyspepsia already on Protonix Maalox ordered (4) Hyperkalemia: Plan: Resolved (5) CKD (chronic kidney disease) stage 3, GFR 30-59 ml/min: Plan: History of progressive CKD Cr: 1.6. Recent baseline~1.4. Recent DAHLIA Monitor renal functions, avoid nephrotoxic agents when possible Nephrology consult Mostly back to baseline (6) HTN (hypertension): Plan: Stable Hold carvedilol with current bradycardia Hold hydralazine Continue nifedipine Monitor closely (7) Type 2 diabetes mellitus, with long-term current use of insulin: Plan: A1c: 7.7 on 08/25/2023 Continue basal bolus insulin (8) Lymphedema of both lower extremities: Plan: Patient was started on Keflex outpatient for reported leg cellulitis started on 09/15/2023 Currently does not appear cellulitic Will place on Rocephin for now and monitor Monitor closely (9) Chronic iron deficiency anemia: Plan: Hgb: 10.9. Baseline 9-10 Continue iron supplement (10) Neuropathy: Plan: Chronic neuropathy Hold gabapentin with altered mental status (11) Depression with anxiety: Plan: Hold olanzapine for now with altered mental status Plan to continue Prozac when able to take p.o. DVT Prophylaxis Heparin SQ Full Code as per patient POLST form Follows with Dr Mayra Holley for routine care Admission and Anticipated Discharge Date Admission Date: September 19, 2023 Subjective ff up for CHF, etc seen resting in bed, not in distress states she is having some stomach upset after supper, with some nausea no chest pain, dyspnea, palpitations, dizziness no other symptoms Review of Systems Review of Systems: all noted and negative except for above Physical Exam Physical Exam: General- oriented x 3, not in distress, speaks in sentences with no effort or accessory muscle use Eyes- anicteric Neck- no JVD Lungs- clear breath sounds bilaterally no crackles/wheezing Heart- normal rate, regular rhythm; no murmurs Abdomen- normal bowel sounds, nondistended, soft, no tenderness Extremities- no pretibial edema, no calf tenderness Neuro- alert, oriented x 3; no gross focal neurologic deficits Skin- warm & dry Results & Data Results & Data Vital Signs (Past 12 Hours) Vital Signs Temp Pulse Pulse Resp BP Pulse Ox O2 Del Method 09/27/23 16:43 62 09/27/23 15:34 37.0 C 56 L 16 124/75 98 Nasal Cannula 09/27/23 11:01 37.0 C 60 18 156/83 H 97 Nasal Cannula 09/27/23 11:00 09/27/23 10:44 Nasal Cannula 09/27/23 08:00 73 09/27/23 07:56 36.5 C 69 16 159/82 H 95 Nasal Cannula O2 Del Method O2 Flow Rate O2 Flow Rate 09/27/23 16:43 09/27/23 15:34 1 09/27/23 11:01 1 09/27/23 11:00 Nasal Cannula 1 09/27/23 10:44 1 09/27/23 08:00 09/27/23 07:56 1 all noted and reviewed including below (1) CHF (congestive heart failure) Heart failure chronicity: acute on chronic Heart failure type: unspecified Qualified Code(s): I50.9 - Heart failure, unspecified
[2023-09-27] MEDS: ALUMINUM/MAGNESIUM SUSP 30 ML UDC PO STA (17:59)
--- NOTE | 2023-09-27 23:34 | CT Scan Report ---
Exam(s): CT ABDOMEN + PELVIS Without Contrast EXAM: CT Abdomen and Pelvis Without Intravenous Contrast CLINICAL HISTORY: Reason for exam: r/o ventral hernia. TECHNIQUE: Axial computed tomography images of the abdomen and pelvis without intravenous contrast. CTDI is 28.14 mGy and DLP is 1499.82 mGy-cm. Automated exposure control was utilized for the study. A dose lowering technique was utilized adhering to the principles of ALARA. COMPARISON: No relevant prior studies available. FINDINGS: Lung bases: Unremarkable. No mass. No consolidation. Pleural space: Small LEFT pleural effusion. ABDOMEN: Liver: Unremarkable. Gallbladder and bile ducts: Cholecystectomy. No ductal dilation. Pancreas: Unremarkable. No ductal dilation. Spleen: Unremarkable. No splenomegaly. Adrenals: Unremarkable. No mass. Kidneys and ureters: Unremarkable. No renal stones or hydronephrosis. Stomach and bowel: Diverticulosis, without acute diverticulitis. No bowel obstruction. No free air. PELVIS: Appendix: No findings to suggest acute appendicitis. Bladder: Decompressed urinary bladder, which contains a Heaton catheter. Mild wall thickening and pericystic induration, consistent with UTI. No stones. Reproductive: Unremarkable as visualized. ABDOMEN and PELVIS: Intraperitoneal space: See above. Bones/joints: Degenerative changes of the spine. No acute fracture. No dislocation. Soft tissues: Anasarca. Vasculature: Atherosclerotic changes of the aorta. No abdominal aortic aneurysm. Lymph nodes: Unremarkable. No enlarged lymph nodes. IMPRESSION: 1. No renal stones or hydronephrosis. 2. Decompressed urinary bladder, which contains a Heaton catheter. Mild wall thickening and pericystic induration, consistent with UTI. 3. Small LEFT pleural effusion. 4. Cholecystectomy. 5. Diverticulosis, without acute diverticulitis. No bowel obstruction. No free air. Electronically signed by: Charles Iniguez MD 09/27/23 23:33 PM
--- NOTE | 2023-09-28 12:43 | Hospitalist Progress Note ---
Date of Service September 28, 2023 Assessment & Plan (1) CHF (congestive heart failure): Plan: Per Dr. Liu's notes with addendum: (1) Metabolic encephalopathy: (2) Hypercarbia: Plan: Patient is 53-year-old female with PMH insulin-dependent DM II, diabetic neuropathy, CKD III, HTN, HLD, chronic HFpEF, morbid obesity, history necrotizing fasciitis, bilateral lower extremity lymphedema, left chronic heel ulcer, iron deficiency anemia, and others listed below presented to ER from [facility] for reported altered mental status and shortness of breath. Today outpatient labs with elevated CO2. Patient presented to ER and was lethargic. In ER patient was afebrile, was 96% on 3 L nasal cannula. During my evaluation patient appears comfortable on BiPAP. She awakens to voice and light touch but not conversant. Initial VBG pH: 7.34, pCO2: 98, HCO3: 53. Repeat VBG 2 hours after BiPAP placed: pH: 7.4, pCO2: 81. Vitals P: 51, R: 19, BP 129/56, 97% on BiPAP No leukocytosis. Negative influenza, RSV, SARS-CoV-2 PCR CXR: No acute abnormalities and in particular no radiographic evidence of pneumonia. Likely metabolic encephalopathy secondary to hypercarbia. Suspect OHS CT head pending UA, urine drug screen pending Continue BiPAP N.p.o. while on BiPAP CBC, BMP, VBG in a.m. 09/28 Resolved Back to baseline mental status (3) Acute on chronic heart failure with preserved ejection fraction (HFpEF): Plan: History Echo 07/05/2023: EF: 55-60%, grade 1 diastolic dysfunction, right ventricle severely dilated, right ventricular systolic function mildly reduced, severe tricuspid regurgitation, moderate pulmonary hypertension Suspect acute on chronic CHF. Volume status difficult to assess with body habitus In ER given 80 mg Lasix IV BNP, troponin pending. EKG sinus bradycardia, RBBB Lasix 80 mg IV twice daily. Hold home torsemide 80 mg twice daily Heaton catheter. Monitor I's and O's, daily weights. When condition improves and can have diet plan for low-sodium diet Cardiology consult 09/27 Back on torsemide 80 mg twice daily Creatinine 1.3 Monitor closely having some dyspepsia already on Protonix Maalox ordered 09/28 Diuresing well Creatinine 1.3 Continue torsemide twice daily Abdominal pain CT abdomen pelvis: No hernia, no acute process Possible UTI but patient denies urinary symptoms Resolved with Maalox Already on Protonix Monitor closely (4) Hyperkalemia: Plan: Resolved (5) CKD (chronic kidney disease) stage 3, GFR 30-59 ml/min: Plan: History of progressive CKD Cr: 1.6. Recent baseline~1.4. Recent DAHLIA Monitor renal functions, avoid nephrotoxic agents when possible Nephrology consult Mostly back to baseline (6) HTN (hypertension): Plan: Stable Hold carvedilol with current bradycardia Hold hydralazine Continue nifedipine Monitor closely (7) Type 2 diabetes mellitus, with long-term current use of insulin: Plan: A1c: 7.7 on 08/25/2023 Continue basal bolus insulin (8) Lymphedema of both lower extremities: Plan: Patient was started on Keflex outpatient for reported leg cellulitis started on 09/15/2023 Currently does not appear cellulitic Received IV ceftriaxone Lymphedema likely secondary to CHF No signs of infection at this point (9) Chronic iron deficiency anemia: Plan: Hgb: 10.9. Baseline 9-10 Continue iron supplement (10) Neuropathy: Plan: Chronic neuropathy Gabapentin held in light of altered mental status (11) Depression with anxiety: Plan: Hold olanzapine for now with altered mental status Resume Prozac DVT Prophylaxis Heparin SQ Full Code as per patient POLST form Follows with Dr Mayra Holley for routine care Admission and Anticipated Discharge Date Admission Date: September 19, 2023 Subjective Follow-up for CHF, etc. Seen resting in bed, comfortable, not in distress Having hot flushes which according to the patient is part of her menopausal symptoms Abdominal pain resolved Denies bladder spasms or pain no chest pain, dyspnea, palpitations, dizziness No other new symptoms Review of Systems Review of Systems: all noted and negative except for above Physical Exam Physical Exam: General- oriented x 3, not in distress, speaks in sentences with no effort or accessory muscle use Eyes- anicteric Neck- no JVD Lungs- clear breath sounds bilaterally, no rales or wheezing Heart- normal rate, regular rhythm; no murmurs Abdomen- normal bowel sounds, nondistended, soft, no tenderness Extremities-mild pretibial edema, no calf tenderness Neuro- alert, oriented x 3; no gross focal neurologic deficits Skin- warm & dry Results & Data Results & Data Vital Signs (Past 12 Hours) Vital Signs Temp Pulse Resp BP Pulse Ox O2 Del Method O2 Flow Rate 09/28/23 11:12 36.4 C L 60 19 167/95 H 90 Room Air 09/28/23 08:00 Nasal Cannula 1 09/28/23 07:04 36.8 C 70 19 152/77 H 92 Room Air 09/28/23 04:00 36.5 C 68 18 128/80 94 Nasal Cannula 1 all noted and reviewed including below (1) CHF (congestive heart failure) Heart failure chronicity: acute on chronic Heart failure type: unspecified Qualified Code(s): I50.9 - Heart failure, unspecified
--- NOTE | 2023-09-28 13:19 | Nephrology Progress Note ---
Date of Service September 28, 2023 Assessment & Plan (1) Right heart failure: Plan: acute on chronic; causes volume overload; also w/ plm HTN > cont bumex 2 mg IV bid -strict I/O -Daily standing weight when able > tells team she's not stood or ambulated since July; reasons unclear>> PT/OT eval >continue 1.5L FR and <2 gm daily Na diet > ? role for pulmonary vasodilators > BB held d/t bradycardia (2) Carbon dioxide retention: Plan: this is what caused metabolic encephalopathy; whether from not using bipap or medications (gabapentin +/- zyprexa though only anirudh is new since last admission) difficult to say >imperative that she use bipap/cpap here and after d/c (3) Hypercarbia: Plan: from large obligate diuresis needs (4) CKD (chronic kidney disease) stage 3, GFR 30-59 ml/min: Plan: baseline renal function labile; usually mid to high ones. also has 2 gm proteinuria w/ negative serologic work up. currently at baseline w/ acceptable chemistries despite challenging hypercarbia and with fluid over Admission and Anticipated Discharge Date Admission Date: September 19, 2023 Subjective Follow-up for CHF, etc. Seen resting in bed, comfortable, not in distress Having hot flushes which according to the patient is part of her menopausal symptoms Abdominal pain resolved No other new symptoms Results & Data Vital Signs (Past 12 Hours) Vital Signs Temp Pulse Resp BP Pulse Ox O2 Del Method O2 Flow Rate 09/28/23 11:12 36.4 C L 60 19 167/95 H 90 Room Air 09/28/23 08:00 Nasal Cannula 1 09/28/23 07:04 36.8 C 70 19 152/77 H 92 Room Air 09/28/23 04:00 36.5 C 68 18 128/80 94 Nasal Cannula 1 Laboratory Results 09/25/23 07:09 09/27/23 07:41 (1) Right heart failure Heart failure chronicity: acute on chronic Qualified Code(s): I50.813 - Acute on chronic right heart failure (4) CKD (chronic kidney disease) stage 3, GFR 30-59 ml/min Chronic kidney disease stage 3 subtype: unspecified whether 3a or 3b Qualified Code(s): N18.30 - Chronic kidney disease, stage 3 unspecified
--- NOTE | 2023-09-28 13:22 | Nephrology Progress Note ---
Date of Service September 28, 2023 Assessment & Plan (1) Acute on chronic renal insufficiency: Plan: Acute on chronic; causes volume overload; also w/ pulm HTN. She absolutely needs Bipap--ideally 10-12 hrs per day !! Continue Demadex 100 bid--UOP has been good,Pedal edema better Need daily wt strict I/O continue 1.5L FR and <2 gm daily Na diet hard to assess fluid status with her morbid obesity. Weight if possible is more accurate. Also her serum Bicarb has been in the Late 30's -early 40's for many day now--she needs this with her Compensation fro Chronic resp Acidosis. (2) CKD (chronic kidney disease): Plan: No clear baseline renal function --very labile. Creat goes up and then down without any clear pattern with Diuretics dosing. Has 2 gm proteinuria w/ negative serologic work up. As long as creat is less than 2 , may be an optimal Compromise. Admission and Anticipated Discharge Date Admission Date: September 19, 2023 Subjective c/o " hot flushes" believes it to be due to menopause - No other complain. Pedal edema better.no SOB Review of Systems Review of Systems: All systems reviewed & are unremarkable except as noted in HPI & below Physical Exam Physical Exam: Constitutional: well developed, + obese and cooperat maria alejandra Eyes: EOM intact bilater ally ENMT: Ears: no external ear abnormality N ose: no external n ose abnormality M outh: + dry oral m ucous membranes Neck: no nuchal rigidity Respiratory: normal respiratory effort Auscultat ion: + diminished lung sounds Cardiovascular: Rate/Rhythm: regul ar rate and + sandra ycardic Extremiti es: + edema (2+) Gastrointestinal ( Abdomen): Inspection/Auscult ation: normal uriel l sounds Percussi on/Palpation: abdo men soft; abdomen nontender Musculoskeletal: Extremities: stren gth 5/5 throughout Skin: no rashes, warm an d dry Psychiatric: Orientation: alert and oriented x 3 Results & Data Vital Signs (Past 12 Hours) Vital Signs Temp Pulse Resp BP Pulse Ox O2 Del Method O2 Flow Rate 09/28/23 11:12 36.4 C L 60 19 167/95 H 90 Room Air 09/28/23 08:00 Nasal Cannula 1 09/28/23 07:04 36.8 C 70 19 152/77 H 92 Room Air 09/28/23 04:00 36.5 C 68 18 128/80 94 Nasal Cannula 1 (2) CKD (chronic kidney disease) Chronic kidney disease stage 3 subtype: unspecified whether 3a or 3b
--- NOTE | 2023-09-29 11:13 | Hospitalist Progress Note ---
Date of Service September 29, 2023 Assessment & Plan (1) CHF (congestive heart failure): Plan: Per Dr. Liu's notes with addendum: (1) Metabolic encephalopathy: (2) Hypercarbia: Plan: Patient is 53-year-old female with PMH insulin-dependent DM II, diabetic neuropathy, CKD III, HTN, HLD, chronic HFpEF, morbid obesity, history necrotizing fasciitis, bilateral lower extremity lymphedema, left chronic heel ulcer, iron deficiency anemia, and others listed below presented to ER from [facility] for reported altered mental status and shortness of breath. Today outpatient labs with elevated CO2. Patient presented to ER and was lethargic. In ER patient was afebrile, was 96% on 3 L nasal cannula. During my evaluation patient appears comfortable on BiPAP. She awakens to voice and light touch but not conversant. Initial VBG pH: 7.34, pCO2: 98, HCO3: 53. Repeat VBG 2 hours after BiPAP placed: pH: 7.4, pCO2: 81. Vitals P: 51, R: 19, BP 129/56, 97% on BiPAP No leukocytosis. Negative influenza, RSV, SARS-CoV-2 PCR CXR: No acute abnormalities and in particular no radiographic evidence of pneumonia. Likely metabolic encephalopathy secondary to hypercarbia. Suspect OHS CT head pending UA, urine drug screen pending Continue BiPAP N.p.o. while on BiPAP CBC, BMP, VBG in a.m. 09/29 Resolved Back to baseline mental status (3) Acute on chronic heart failure with preserved ejection fraction (HFpEF): Plan: History Echo 07/05/2023: EF: 55-60%, grade 1 diastolic dysfunction, right ventricle severely dilated, right ventricular systolic function mildly reduced, severe tricuspid regurgitation, moderate pulmonary hypertension Suspect acute on chronic CHF. Volume status difficult to assess with body habitus In ER given 80 mg Lasix IV BNP, troponin pending. EKG sinus bradycardia, RBBB Lasix 80 mg IV twice daily. Hold home torsemide 80 mg twice daily Heaton catheter. Monitor I's and O's, daily weights. When condition improves and can have diet plan for low-sodium diet Cardiology consult 09/27 Back on torsemide 80 mg twice daily Creatinine 1.3 Monitor closely having some dyspepsia already on Protonix Maalox ordered 09/28 Diuresing well Creatinine 1.3 Continue torsemide twice daily 09/29 Continue torsemide 100 mg p.o. twice daily Repeat BMP in 1 week, and monitor closely Continue fluid restriction 1.5 L/day, 2 g sodium diet Abdominal pain CT abdomen pelvis: No hernia, no acute process Possible UTI but patient denies urinary symptoms Resolved with Maalox Already on Protonix Monitor closely (4) Hyperkalemia: Plan: Resolved (5) CKD (chronic kidney disease) stage 3, GFR 30-59 ml/min: Plan: History of progressive CKD Cr: 1.6. Recent baseline~1.4. Recent DAHLIA Monitor renal functions, avoid nephrotoxic agents when possible Nephrology consult Mostly back to baseline Follow-up with [facility] in 2 to 3 weeks (6) HTN (hypertension): Plan: Stable Discontinued carvedilol due to bradycardia Discontinued hydralazine Continue nifedipine Monitor closely (7) Type 2 diabetes mellitus, with long-term current use of insulin: Plan: A1c: 7.7 on 08/25/2023 Continue basal bolus insulin (8) Lymphedema of both lower extremities: Plan: Patient was started on Keflex outpatient for reported leg cellulitis started on 09/15/2023 Currently does not appear cellulitic Received IV ceftriaxone Lymphedema likely secondary to CHF No signs of infection at this point (9) Chronic iron deficiency anemia: Plan: Hgb: 10.9. Baseline 9-10 Continue iron supplement (10) Neuropathy: Plan: Chronic neuropathy Gabapentin held in light of altered mental status (11) Depression with anxiety: Plan: Held olanzapine due to altered mental status Resume Prozac DVT Prophylaxis Heparin SQ Return to SNF Admission and Anticipated Discharge Date Admission Date: September 19, 2023 Subjective Follow-up for CHF, volume overload, etc. Seen resting in bedside chair, comfortable, not in distress States she feels fine overall no chest pain, dyspnea, palpitations, dizziness No leg pain, fevers or chills No abdominal pain, nausea or vomiting States she is ready for discharge today Review of Systems Review of Systems: all noted and negative except for above Physical Exam Physical Exam: General- oriented x 3, not in distress, speaks in sentences with no effort or accessory muscle use Eyes- anicteric Neck- no JVD Lungs- clear breath sounds bilaterally, no crackles or wheezes Heart- normal rate, regular rhythm; no murmurs Abdomen- normal bowel sounds, nondistended, soft, no tenderness Extremities-grade 1 lower leg edema, mild erythema but no warmth, tenderness Neuro- alert, oriented x 3; no gross focal neurologic deficits Skin- warm & dry Results & Data Results & Data Vital Signs (Past 12 Hours) Vital Signs Temp Pulse Pulse Pulse Resp BP Pulse Ox 09/29/23 07:30 09/29/23 07:00 71 09/29/23 07:00 36.7 C 74 19 154/79 H 90 09/29/23 03:05 36.5 C 77 14 139/77 92 09/28/23 23:46 65 O2 Del Method O2 Flow Rate 09/29/23 07:30 Nasal Cannula 09/29/23 07:00 09/29/23 07:00 Room Air 09/29/23 03:05 Nasal Cannula 1 09/28/23 23:46 all noted and reviewed including below (1) CHF (congestive heart failure) Heart failure chronicity: acute on chronic Heart failure type: unspecified Qualified Code(s): I50.9 - Heart failure, unspecified
[2023-09-29 11:17] LABS: Albumin Level 4.1 gm/dl (3.4-5.0); BUN Creatinine Ratio 24.6 (10-20); Calcium 9.8 mg/dl (8.6-10.3); Creatinine Clr Calc Pharmacy 65.4 ml/min; Est GFR (African American) 50.1 ml/min; Est GFR (Non-African American) 43.2 ml/min; Phosphorus 3.7 mg/dl (2.5-4.9); Potassium 4.3 mmol/L (3.5-5.1)
--- NOTE | 2023-09-29 11:35 | Discharge Summary ---
Discharge Summary Date of Service September 29, 2023 Notes For Next Care Provider Medication Changes From Visit Please refer to medication reconciliation section. Admission HPI Per Admitting Provider Patient is 53-year-old female with PMH insulin-dependent DM II, diabetic neuropathy, CKD III, HTN, HLD, chronic HFpEF, morbid obesity, history necrotizing fasciitis, bilateral lower extremity lymphedema, left chronic heel ulcer, iron deficiency anemia, chronic metabolic alkalosis and others listed below presented to ER from [facility] for reported altered mental status and shortness of breath. History of hospitalization 07/04/2023-07/25/2023 for acute on chronic heart failure, DAHLIA on CKD III treated with IV diuretics and had total of 49 L diuresed during her hospitalization. History obtained from inpatient and outpatient chart review, ER staff is unable to obtain from patient secondary to her current mental status. It is reported by EMS that patient has been more lethargic the past several days. It is reported she was more short of breath today. She had outpatient labs done this morning which showed elevated CO2. Patient was started on Keflex outpatient for reported leg cellulitis started on 09/15/2023 and was to be completed on 09/25/2023. Yesterday patient started on IV Lasix 40 mg daily x 3 days on 09/18/23. Patient is currently on torsemide 80 mg twice daily. Patient presented to ER and was lethargic. In ER patient was afebrile, was 96% on 3 L nasal cannula. VBG with CO2 98 and patient was placed on BiPAP. During my evaluation patient appears comfortable on BiPAP. She awakens to voice and light touch but is unable to provide any further history. Per chart review: Echo 07/05/2023: EF: 55-60%, grade 1 diastolic dysfunction, right ventricle severely dilated, right ventricular systolic function mildly reduced, severe tricuspid regurgitation, moderate pulmonary hypertension Admission Exam Per Admitting Provider General: no distress on bipap currently, +lethargic, awakens to light touch, +obese Head: normocephalic, atraumatic Eyes: EOM's intact, conjunctiva non-injected, anicteric ENT: normal inspection external ears, nose, mucous membranes moist Neck: supple, trachea midline Lungs: clear, no respiratory distress on current bipap and no wheezing/rho nchi/rales appreciated, however bipap is in place and difficult to auscultate CV: RRR, +2-3+ pretibial edema Abd: protuberant, normal BS, soft, no apparent tenderness to palpation Ext: no cyanosis Neuro: Lethargic, somnolent, Awakens to voice and light touch but unable to follow commands or converse Skin: warm, dry, BLE +dry skin with slight erythema without significant warmth Principal Dx & Hospital Course #1 = Principal Diagnosis (1) CHF (congestive heart failure): Per Dr. Liu's notes with addendum: (1) Metabolic encephalopathy: (2) Hypercarbia: Plan: Patient is 53-year-old female with PMH insulin-dependent DM II, diabetic neuropathy, CKD III, HTN, HLD, chronic HFpEF, morbid obesity, history necrotizing fasciitis, bilateral lower extremity lymphedema, left chronic heel ulcer, iron deficiency anemia, and others listed below presented to ER from [facility] for reported altered mental status and shortness of breath. Today outpatient labs with elevated CO2. Patient presented to ER and was lethargic. In ER patient was afebrile, was 96% on 3 L nasal cannula. During my evaluation patient appears comfortable on BiPAP. She awakens to voice and light touch but not conversant. Initial VBG pH: 7.34, pCO2: 98, HCO3: 53. Repeat VBG 2 hours after BiPAP placed: pH: 7.4, pCO2: 81. Vitals P: 51, R: 19, BP 129/56, 97% on BiPAP No leukocytosis. Negative influenza, RSV, SARS-CoV-2 PCR CXR: No acute abnormalities and in particular no radiographic evidence of pneumonia. Likely metabolic encephalopathy secondary to hypercarbia. Suspect OHS CT head negative 09/29 Resolved Back to baseline mental status Patient requires BiPAP every night to prevent recurrence of respiratory acidosis (3) Acute on chronic heart failure with preserved ejection fraction (HFpEF): Plan: History Echo 07/05/2023: EF: 55-60%, grade 1 diastolic dysfunction, right ventricle severely dilated, right ventricular systolic function mildly reduced, severe tricuspid regurgitation, moderate pulmonary hypertension Suspect acute on chronic CHF. Volume status difficult to assess with body habitus In ER given 80 mg Lasix IV EKG sinus bradycardia, RBBB Cardiology nephrology service consulted Patient given IV Lasix Torsemide titrated Diuresed well Creatinine remained stable 09/29 Continue torsemide 100 mg p.o. twice daily Repeat BMP in 1 week, and monitor closely Continue fluid restriction 1.5 L/day, 2 g sodium diet Abdominal pain CT abdomen pelvis: No hernia, no acute process Possible UTI but patient denies urinary symptoms Resolved with Maalox Already on Protonix Monitor closely (4) Hyperkalemia: Plan: Resolved (5) CKD (chronic kidney disease) stage 3, GFR 30-59 ml/min: Plan: History of progressive CKD Cr: 1.6. Recent baseline~1.4. Recent DAHLIA Monitor renal functions, avoid nephrotoxic agents when possible Nephrology consulted Mostly back to baseline Repeat BMP in 1 week Follow-up with side puller in 2 to 3 weeks (6) HTN (hypertension): Plan: Stable Discontinued carvedilol due to bradycardia Discontinued hydralazine Continue nifedipine Monitor closely (7) Type 2 diabetes mellitus, with long-term current use of insulin: Plan: A1c: 7.7 on 08/25/2023 Insulin Monitor closely (8) Lymphedema of both lower extremities: Plan: Patient was started on Keflex outpatient for reported leg cellulitis started on 09/15/2023 Currently does not appear cellulitic Received IV ceftriaxone Lymphedema likely secondary to CHF No signs of infection at this point (9) Chronic iron deficiency anemia: Plan: Hgb: 10.9. Baseline 9-10 Continue iron supplement Monitor (10) Neuropathy: Plan: Chronic neuropathy Gabapentin held in light of altered mental status (11) Depression with anxiety: Plan: Held olanzapine due to altered mental status Resumed Prozac DVT Prophylaxis Heparin SQ Return to SNF Discharge Exam General- oriented x 3, not in distress, speaks in sentences with no effort or accessory muscle use Eyes- anicteric Neck- no JVD Lungs- clear breath sounds bilaterally, no crackles or wheezes Heart- normal rate, regular rhythm; no murmurs Abdomen- normal bowel sounds, nondistended, soft, no tenderness Extremities-grade 1 lower leg edema, mild erythema but no warmth, tenderness Neuro- alert, oriented x 3; no gross focal neurologic deficits Skin- warm & dry Updated Medication List Medication Instructions Recorded Confirmed Type aspirin 81 mg tablet,delayed 81 mg PO QAM 03/14/22 09/19/23 History release ferrous sulfate 325 mg (65 mg 325 mg PO DAILY 03/14/22 09/19/23 History iron) tablet cyanocobalamin (vitamin B-12) 1,000 mcg PO DAILY 03/13/23 09/19/23 History 1,000 mcg tablet (Vitamin B-12) fluoxetine 20 mg capsule (Prozac) 20 mg PO DAILY 07/04/23 09/19/23 History melatonin 3 mg tablet 3 mg PO HS 07/04/23 09/19/23 History pantoprazole 40 mg tablet,delayed 40 mg PO DAILY #30 tabs 07/24/23 09/19/23 Rx release potassium chloride 20 mEq 20 meq PO BID #60 tabs 07/24/23 09/19/23 Rx tablet,extended release(part/cryst) olanzapine 2.5 mg tablet 2.5 mg PO HS #30 tabs 07/25/23 09/19/23 Rx acetaminophen 325 mg tablet 650 mg PO Q6 PRN Fever Or Pain 09/19/23 09/19/23 History ammonium lactate 12 % lotion 1 applic topical BID 09/19/23 09/19/23 History carvedilol 12.5 mg tablet 6.25 mg PO BIDM 09/19/23 09/19/23 History cephalexin 500 mg capsule 500 mg PO Q8H 09/19/23 09/19/23 History cyclobenzaprine 5 mg tablet 2.5 mg PO Q8 PRN Muscle Spasm 09/19/23 09/19/23 History furosemide 100 mg/100 mL (1 mg/mL) 4 ml IV DAILY 09/19/23 09/19/23 History in 0.9 % sod chloride IV piggyback gabapentin 300 mg capsule 300 mg PO DAILY 09/19/23 09/19/23 History gabapentin 600 mg tablet 600 mg PO Q12 09/19/23 09/19/23 History hydralazine 25 mg tablet 25 mg PO TID 09/19/23 09/19/23 History insulin detemir U-100 100 unit/mL 14 unit subcut BID 09/19/23 09/19/23 History subcutaneous solution (Levemir U-100 Insulin) insulin lispro 100 unit/mL 9 unit subcut AC 09/19/23 09/19/23 History subcutaneous half-unit pen (Humalog Miah KwikPen (U-100)) nifedipine 60 mg tablet,extended 60 mg PO QAM 09/19/23 09/19/23 History release 24 hr (Procardia XL) ondansetron HCl 4 mg tablet 4 mg PO Q6H PRN Nausea And Vomiting 09/19/2310/11 History torsemide 20 mg tablet 80 mg PO Q12H 09/19/23 09/19/23 History L.acidop,casei,lactis,rham-B.lact,jasvir 2 cap PO DAILY 7 days #14 caps 09/29/23 Rx 625 mg (10 billion cell) capsule (Advanced Probiotic) heparin, porcine (PF) 5,000 7,500 unit (0.75 mL) subcut Q12 14 09/29/23 Rx unit/0.5 mL injection syringe days #21 mL potassium chloride 10 mEq 10 meq PO BID 30 days #60 tabs 09/29/23 Rx tablet,extended release(part/cryst) torsemide 100 mg tablet 100 mg PO BID17 30 days #30 tabs 09/29/23 Rx Hospital Stay Data Consultations 09/19/23 17:36 ED Decision to Admit Stat 09/19/23 21:28 Consult Nephrology Routine 09/20/23 08:00 Consult Cardiology Routine Diagnostic Imagining Performed Laboratory Results WBC 4.61 K/ul (4.8-10.8) L 09/25/23 07:09 RBC 3.73 M/uL (4.20-5.40) L 09/25/23 07:09 Hgb 10.5 g/dl (12.0-16.0) L 09/25/23 07:09 Hct 34.4 % (37.0-47.0) L 09/25/23 07:09 MCV 92.2 fL (80.0-100.0) 09/25/23 07:09 MCH 28.2 pg (25.0-34.0) 09/25/23 07:09 MCHC 30.5 g/dL (32.0-36.0) L 09/25/23 07:09 RDW Std Deviation 47.8 fL (36.4-46.3) H 09/25/23 07:09 RDW Coeff of Mya 14.0 % (11.5-14.5) 09/25/23 07:09 Plt Count 164 K/uL (130-400) 09/25/23 07:09 MPV 11.9 fL (9.4-12.4) 09/25/23 07:09 Immature Gran % (Auto) 0.4 % 09/19/23 15:55 Neut % (Auto) 74.5 % 09/19/23 15:55 Lymph % (Auto) 16.4 % 09/19/23 15:55 [place] % (Auto) 7.0 % 09/19/23 15:55 Eos % (Auto) 0.9 % 09/19/23 15:55 Baso % (Auto) 0.8 % 09/19/23 15:55 Neut # (Auto) 6.83 K/uL (1.40-6.50) H 09/19/23 15:55 Lymph # (Auto) 1.50 K/uL (1.20-3.40) 09/19/23 15:55 [place] # (Auto) 0.64 K/uL (0.11-0.59) H 09/19/23 15:55 Eos # (Auto) 0.08 K/uL (0.00-0.50) 09/19/23 15:55 Baso # (Auto) 0.07 K/uL (0.00-0.20) 09/19/23 15:55 Immature Gran # (Auto) 0.04 K/uL (0.01-0.20) 09/19/23 15:55 VBG pH 7.47 (7.36-7.41) H 09/25/23 07:09 VBG pCO2 61 mmHg (38-50) H 09/25/23 07:09 VBG pO2 54 mmHg 09/25/23 07:09 VBG HCO3 44 mmol/L 09/25/23 07:09 VBG O2 Saturation 88.0 % 09/25/23 07:09 VBG Base Excess 18.0 mEq/L 09/25/23 07:09 Sodium 139 mmol/L (136-145) 09/29/23 10:42 Potassium 4.3 mmol/L (3.5-5.1) 09/29/23 10:42 Chloride 95 mmol/L (98-107) L 09/29/23 10:42 Carbon Dioxide 38 mmol/L (21-32) H 09/29/23 10:42 Anion Gap 6 (3-11) 09/29/23 10:42 BUN 34 mg/dl (6-23) H 09/29/23 10:42 Creatinine 1.38 mg/dl (0.6-1.2) H 09/29/23 10:42 Est Cr Clr Drug Dosing 65.4 ml/min 09/29/23 10:42 Est GFR ( Amer) 50.1 ml/min 09/29/23 10:42 Est GFR (Non-Af Amer) 43.2 ml/min 09/29/23 10:42 BUN/Creatinine Ratio 24.6 (10-20) H 09/29/23 10:42 Glucose 209 mg/dl (70-99(Fasting)) H 09/29/23 10:42 POC Glucose 192 mg/dl (70-99) H 09/29/23 11:17 Calcium 9.8 mg/dl (8.6-10.3) 09/29/23 10:42 Phosphorus 3.7 mg/dl (2.5-4.9) 09/29/23 10:42 Magnesium 2.0 mg/dl (1.7-2.4) 09/26/23 06:45 Total Bilirubin 0.5 mg/dl (0.2-1.0) 09/21/23 08:12 AST 15 U/L (13-39) 09/21/23 08:12 ALT 9 U/L (7-52) 09/21/23 08:12 Alkaline Phosphatase 124 U/L (34-104) H 09/21/23 08:12 Troponin I High Sens 16.4 pg/ml (0-14) H 09/20/23 04:43 B-Natriuretic Peptide 181 pg/ml (0-100) H 09/19/23 20:00 Total Protein 7.1 gm/dl (6.0-8.3) 09/21/23 08:12 Albumin 4.1 gm/dl (3.4-5.0) 09/29/23 10:42 Globulin 3.5 gm/dl (2.5-4.0) 09/21/23 08:12 Albumin/Globulin Ratio 1.0 (0.9-2) 09/21/23 08:12 TSH 5.071 uIu/ml (0.300-4.500) H 09/21/23 08:12 Free T4 1.09 ng/dl (0.61-1.60) 09/21/23 08:12 Urine Color Yellow 09/19/23 20:20 Urine Appearance Clear (Clear) 09/19/23 20:20 Urine pH 5.0 (4.5-7.5) 09/19/23 20:20 Ur Specific [place] 1.012 (1.000-1.030) 09/19/23 20:20 Urine Protein 2+ (Negative) H 09/19/23 20:20 Urine Glucose (UA) Negative (Negative) 09/19/23 20:20 Urine Ketones Negative (Negative) 09/19/23 20:20 Urine Blood Trace (Negative) H 09/19/23 20:20 Urine Nitrite Negative (Negative) 09/19/23 20:20 Urine Bilirubin Negative (Negative) 09/19/23 20:20 Urine Urobilinogen Negative (Negative) 09/19/23 20:20 Ur Leukocyte Esterase Trace (Negative) H 09/19/23 20:20 Urine WBC (Auto) 1-5 /hpf (0-5) 09/19/23 20:20 Urine RBC (Auto) 10-30 /hpf (0-4) H 09/19/23 20:20 U Hyaline Cast (Auto) >30 /lpf (0-5) H 09/19/23 20:20 U Epithel Cells (Auto) >30 /lpf (0-5) H 09/19/23 20:20 Urine Bacteria (Auto) Negative (Negative) 09/19/23 20:20 Urine Yeast Budding (None Prsent) A 09/19/23 20:20 Stl C. diff Tox B Gene Negative Cdiff Gene (Neg) 09/25/23 09:15 Urine Opiates Screen Neg (Neg) 09/19/23 20:20 Ur Methadone, Qual Neg (Neg) 09/19/23 20:20 Urine Barbiturates Neg (Neg) 09/19/23 20:20 Ur Phencyclidine (PCP) Neg (Neg) 09/19/23 20:20 U Amphetamin/Meth Scrn Neg (Neg) 09/19/23 20:20 MDMA (Ecstasy) Screen Neg (Neg) 09/19/23 20:20 U Benzodiazepines Scrn Neg (Neg) 09/19/23 20:20 Ur Cocaine Metabolite Neg (Neg) 09/19/23 20:20 U Marijuana (THC) Screen Neg (Neg) 09/19/23 20:20 SARS-CoV-2 (PCR) NEGATIVE (Negative) 09/19/23 16:45 Influenza Type A (PCR) Negative (Neg) 09/19/23 16:45 Influenza Type B (PCR) Negative (Neg) 09/19/23 16:45 RSV (RT-PCR) Negative (Neg) 09/19/23 16:45 Impressions Chest X-Ray 09/19/23 16:31 XR chest 1V portable CLINICAL HISTORY: Dyspnea TECHNIQUE: Single frontal radiograph of the chest was obtained. Comparison: Comparison is made to chest radiograph 07/04/2023 FINDINGS: Exam is limited by underpenetration. Cardiomegaly is noted. The lungs are clear. No evidence of pleural effusion or pneumothorax. IMPRESSION: No acute abnormalities and in particular no radiographic evidence of pneumonia. ACT 112: Negative or not required by law. Electronically signed by: Loyd Arambula M.D. 09/19/2023 4:[address] 09/19/23 20:26 Exam(s): CT HEAD Without Contrast EXAM: CT Head Without Intravenous Contrast CLINICAL HISTORY: Reason for exam: AMS. TECHNIQUE: Axial computed tomography images of the head/brain without intravenous contrast. CTDI is 63.23 mGy and DLP is 961.59 mGy-cm. Automated exposure control was utilized for the study. A dose lowering technique was utilized adhering to the principles of ALARA. COMPARISON: No relevant prior studies available. FINDINGS: The study is limited secondary to motion artifact. Brain: There is a remote ischemic injury of the right cerebellum. No hemorrhage. Mild to moderate nonspecific white matter changes. No edema. Ventricles: Unremarkable. No ventriculomegaly. Bones/joints: Hyperostosis frontalis interna. No acute fracture. Soft tissues: Unremarkable. Sinuses: Status post endoscopic sinus surgery. No acute sinusitis. Mastoid air cells: Small amount of fluid in the right to moderate amount of fluid in the left mastoid air cells. No mastoid effusion. IMPRESSION: No evidence of acute intracranial pathology. Electronically signed by: Yessenia Ovalle MD 09/19/23 23:07 PM Abdomen/Pelvis CT 09/27/23 18:06 Exam(s): CT ABDOMEN + PELVIS Without Contrast EXAM: CT Abdomen and Pelvis Without Intravenous Contrast CLINICAL HISTORY: Reason for exam: r/o ventral hernia. TECHNIQUE: Axial computed tomography images of the abdomen and pelvis without intravenous contrast. CTDI is 28.14 mGy and DLP is 1499.82 mGy-cm. Automated exposure control was utilized for the study. A dose lowering technique was utilized adhering to the principles of ALARA. COMPARISON: No relevant prior studies available. FINDINGS: Lung bases: Unremarkable. No mass. No consolidation. Pleural space: Small LEFT pleural effusion. ABDOMEN: Liver: Unremarkable. Gallbladder and bile ducts: Cholecystectomy. No ductal dilation. Pancreas: Unremarkable. No ductal dilation. Spleen: Unremarkable. No splenomegaly. Adrenals: Unremarkable. No mass. Kidneys and ureters: Unremarkable. No renal stones or hydronephrosis. Stomach and bowel: Diverticulosis, without acute diverticulitis. No bowel obstruction. No free air. PELVIS: Appendix: No findings to suggest acute appendicitis. Bladder: Decompressed urinary bladder, which contains a Heaton catheter. Mild wall thickening and pericystic induration, consistent with UTI. No stones. Reproductive: Unremarkable as visualized. ABDOMEN and PELVIS: Intraperitoneal space: See above. Bones/joints: Degenerative changes of the spine. No acute fracture. No dislocation. Soft tissues: Anasarca. Vasculature: Atherosclerotic changes of the aorta. No abdominal aortic aneurysm. Lymph nodes: Unremarkable. No enlarged lymph nodes. IMPRESSION: 1. No renal stones or hydronephrosis. 2. Decompressed urinary bladder, which contains a Heaton catheter. Mild wall thickening and pericystic induration, consistent with UTI. 3. Small LEFT pleural effusion. 4. Cholecystectomy. 5. Diverticulosis, without acute diverticulitis. No bowel obstruction. No free air. Electronically signed by: Charles Iniguez MD 09/27/23 23:33 PM Pending Results Patient Have Any Pending Studies at Discharge: Yes Discharge Instructions Given to Patient (Per Discharging Provider) PATIENT NEEDS TO USE BIPAP MACHINE EVERY NIGHT BiPAP settings as follows: IPAP 12 EPAP 5 12 breaths/min FiO2 30% High RR 40 Apnea 20 High-pressure 40 Please refer to accompanying hospital discharge summary for full details Total Time Total Time Spent Total Time Spent (In Minutes): >30 minutes
== END 2023-09-29 14:43 | DRG 291 ==
LOC: ED 15:18 → EDINP 18:16 → SUATTDRO 18:16 → 2S 21:29

== ENCOUNTER 2025-03-30 14:39 | Inpatient (IN) ==
[2025-03-30 15:10] LABS: Hematocrit (blood only) 25.0 % (37.0-47.0); Hemoglobin 7.9 g/dl (12.0-16.0); Immature Granulocytes # (auto) 0.19 K/uL (0.01-0.20); Immature Granulocytes % (auto) 1.1 %; Mean Corpuscular Hemoglobin 28.5 pg (25.0-34.0); Mean Corpuscular Volume 90.3 fL (80.0-100.0); Platelet Count 186 K/uL (130-400); RDW Standard Deviation 45.8 fL (36.4-46.3); Red Blood Count 2.77 M/uL (4.20-5.40); White Blood Count 17.95 K/ul (4.8-10.8)
--- NOTE | 2025-03-30 15:10 | XRay Report ---
XR chest 1V portable CLINICAL HISTORY: abd pain COMPARISON STUDY: 09/19/2023 FINDINGS: There is stable cardiomegaly with pulmonary vascular congestion. Inspiration is shallow. Ev aluation of the left lung base is limited by the overlying cardiac silhouette. No other consolidation or pleural effusion seen. No pneumothorax. IMPRESSION: Stable exam. ACT 112: Negative or not required by law. Electronically signed by: Jun Ortega M.D. 03/30/2025 3:08 PM
[2025-03-30 15:27] LABS: Alanine Aminotransferase 6.0 U/L (7-52); Albumin Globulin Ratio 0.8 (0.9-2); Alkaline Phosphatase 79.0 U/L (34-104); Anion Gap 5.0 (3-11); Bilirubin,Total 0.5 mg/dl (0.2-1.0); Blood Urea Nitrogen 48.0 mg/dl (6-23); Calcium 8.5 mg/dl (8.6-10.3); Carbon Dioxide 31.0 mmol/L (21-32); Chloride 102.0 mmol/L (98-107); Creatinine Clr Calc Pharmacy 56.3 ml/min; Globulin 3.6 gm/dl (2.5-4.0); Glucose 193.0 mg/dl (70-99(Fasting)); Lipase 9.0 U/L (11-82); Potassium 4.8 mmol/L (3.5-5.1); Sodium 138.0 mmol/L (136-145); Total Protein 6.5 gm/dl (6.0-8.3)
[2025-03-30 15:41] LABS: INR 1.1 (0.9-1.1); Prothrombin Time 11.9 Seconds (9.0-12.0)
[2025-03-30 15:43] LABS: Hypochromasia Present; Microcytosis Present
--- NOTE | 2025-03-30 15:44 | Electrocardiogram Report ---
Test Reason : Blood Pressure : */* mmHG Vent. Rate : 80 BPM Atrial Rate : 80 BPM P-R Int : 154 ms QRS Dur : 136 ms QT Int : 396 ms P-R-T Axes : 66 21 14 degrees QTcB Int : 456 ms Normal sinus rhythm Right bundle branch block Abnormal ECG When compared with ECG of 23-Sep-2023 09:14, QT has shortened Confirmed by Navi Mo ([id number]) on 03/30/2025 3:44:06 PM Referred By: Confirmed By: Navi Mo
[2025-03-30 16:09] LABS: Base Excess VBG 4.0 mEq/L; HCO3 VBG 32 mmol/L; Oxygen Saturation VBG 73.9 %; PCO2 VBG 60 mmHg (38-50); PO2 VBG 42 mmHg; pH VBG 7.33 (7.36-7.41)
--- NOTE | 2025-03-30 16:34 | Emergency Department Note ---
Impression & Plan Diverticulitis of large intestine with abscess, Leukocytosis, Left lower quadrant abdominal pain ED Provider Note NAME: LUIS MANUEL MIKE AGE: 55 SEX: F : 1970 ARRIVES VIA: Ambulance INFORMANT: Patient ED PROVIDER(S): Adrián Chiang MD CHIEF COMPLAINT: Nausea and vomiting, abdominal pain. PLAN: Disposition: Admit MEDICAL DECISION MAKING: The patient is a pleasant 55-year-old woman with a past medical history of chronic respiratory failure, history of COPD, CHF, CKD, pickwickian syndrome, hypertension, hyperlipidemia, type 2 diabetes, who presents to the emergency department via EMS from her long term facility at [facility] for evaluation of nausea and vomiting that began last night with continued nausea and left lower quadrant abdominal pain today. She denies any fevers, chills, cough congestion, chest pain or shortness of breath. On evaluation the patient is in no acute distress, afebrile blood pressure 170/60s, likely situational vital signs otherwise stable. She has mild left lower quadrant abdominal tenderness without guarding or rebound. EKG without overt acute ischemia. CXR negative for acute cardiopulmonary process per my personal preliminary review/interpretation. WBC 17.9 K with neutrophilia but no left shift. H/H 7.9/25, proximal to prior range of values. Platelets within normal limits. Chemistry without metabolic acidosis. VBG with pH of 7.33 with PCO2 of 60 in setting of chronic hypercapnia. Creatinine 1.8, similar to prior values in the setting of CKD. LFTs unremarkable. High-sensitivity troponin 12.5, within normal limits. Lipase is not elevated. Procalcitonin is not elevated. CT of the abdomen pelvis was performed and demonstrates acute diverticulitis of the sigmoid colon with adjacent 6.8 x 4.3 cm extraluminal collection of fluid and air concerning for abscess. Blood cultures ordered and treatment initially with IV Zosyn. Findings were reviewed with Dr. Olson, [facility] Radiologist. Collection should be amenable to IR drainage given location of the collection close to the abdominal wall. Finding reviewed with Dr. Beavers, general surgery on-call. Agrees with admission to hospital service for IV antibiotics and anticipated IR drainage tomorrow. Appreciate consultation and recommendations. Case was discussed with [facility] PAC, with Dr. Almaraz, [facility] hospitalist who will evaluate the patient for admission. Further management per admitting team. Triage Nursing notes reviewed and agree them. Prior/external medical records reviewed Vital Signs: reviewed Differential diagnosis: Gastroenteritis, food borne illness, infections, appendicitis, diverticulitis, inflammatory bowel disease, obstruction, GI bleed, biliary pathology, volvulus, as well as other pathologies. ER treatment provided: See below. Diagnostics interpreted by me: ECG: Normal sinus rhythm, 80 bpm, no ectopy, right bundle branch block, no overt ST elevation or depression, QTc 456, QRS 136 Cardiac Monitoring: An order for continuous cardiac monitoring was placed and demonstrated Normal sinus rhythm, 80 bpm, no ectopy. Laboratory studies: See below Imaging studies: See below Consultation(s): Dr. Olson, [facility] Radiologist Dr. Beavers, general surgery HPI: Per MDM. ROS: See above HPI for pertinent positives & negatives. A total of 10 systems reviewed and were otherwise negative. VITALS:See Below PHYSICAL EXAMINATION: GENERAL: Awake, alert, in no distress, BMI 54.0. HENT: Normocephalic, atraumatic. Oropharynx unremarkable. EYES: Normal conjunctiva. Sclera non-icteric. NECK: Supple. No nuchal rigidity. FROM. No JVD. RESPIRATORY: Clear to auscultation. CARDIAC: Regular rate, normal rhythm. Extremities warm and well perfused. Pulses equal. ABDOMEN: Soft, non-distended. Mild left lower quadrant abdominal tenderness without guarding or rebound. MUSCULOSKELETAL: Chest examination reveals no tenderness. The back is symmetrical on inspection without obvious abnormality. There is no CVA tenderness to palpation. No joint edema. LOWER EXTREMITIES: Calves are equal size bilaterally and non-tender. No edema. No discoloration. NEURO: Normal sensorium. No sensory or motor deficits noted. SKIN: No rash or jaundice noted. Adrián Chiang MD Past Med/Surg History Problem List (Updated 03/30/25 @ 18:40 by Adrián Chiang MD) Left lower quadrant abdominal pain (Acute) Leukocytosis (Acute) Diverticulitis of large intestine with abscess (Acute) CKD (chronic kidney disease) Pickwickian syndrome Morbid obesity Hypercapnic respiratory failure Hyperkalemia Neuropathy Chronic iron deficiency anemia Hypercarbia Metabolic encephalopathy Acute alteration in mental status (Acute) Carbon dioxide retention (Acute) CHF (congestive heart failure) (Acute) Acute respiratory acidosis (Acute) Uncontrolled hypertension Right heart failure Acute on chronic heart failure with preserved ejection fraction (HFpEF) CKD (chronic kidney disease) stage 3, GFR 30-59 ml/min Chest pain (Acute) Acute on chronic renal insufficiency (Acute) Elevated troponin (Acute) Fluid overload (Acute) CHF (congestive heart failure) Anemia Cellulitis (Acute) Diabetic ulcer of foot associated with type 2 diabetes mellitus, with bone involvement without evidence of necrosis (Acute) Lower limb ulcer, heel or midfoot Lymphedema of both lower extremities Hypertension (Acute) Hyperglycemia (Acute) Nausea (Acute) DAHLIA (acute kidney injury) Cellulitis of left leg (Acute) Acute hyperglycemia (Acute) Obesity Cellulitis of left lower extremity Abscess of left lower leg Wound of lower extremity DKA (diabetic ketoacidosis) Diabetic foot infection (Acute) UTI (urinary tract infection) (Acute) Hypokalemia Gangrene of lower extremity (Acute) Personal history of diabetic foot ulcer Loss of protective sensation of skin of foot Type 2 diabetes mellitus with complications Type 2 diabetes mellitus, with long-term current use of insulin (Acute) Diabetic peripheral neuropathy associated with type 2 diabetes mellitus Diabetes type 2, uncontrolled Vitamin D deficiency Dyslipidemia Varicose veins of both lower extremities Depression with anxiety (Chronic) Tobacco use HTN (hypertension) (Chronic) Medical History Back pain Xerosis cutis Insomnia Hirsutism Fatigue Dysfunctional uterine bleeding History of DVT (deep vein thrombosis) Surgical History History of incision and drainage left foot by Dr. Haq on 10-03-19. H/O tooth extraction History of cholecystectomy History of facial surgery History of nasal polypectomy History of endometrial ablation History of tubal ligation History of hysterectomy History of Family History Father Dyslipidemia Prostate cancer Diabetes Lung cancer Mother Lung cancer Hypothyroidism Brother Coronary heart disease Asthma Grandfather (Maternal) Myocardial infarction Grandmother (Maternal) Myocardial infarction Grandmother (Paternal) Breast cancer Diabetes Social History Smoking Status: Former smoker Tobacco Type: Cigarettes Hx Alcohol Use: No Hx Substance Use: No Preferred Language: Citizen Of [place] Communication Ability: Effective [employer] Required: No Beliefs That Will Affect Care: None marital status: Single Current Living Situation: Rehab Current Living Situation Comment: [facility] Feels Safe at Home: Yes Assistive Devices: Hospital Bed, Walker and Wheelchair Allergies Allergies Allergy/AdvReac Type Severity Reaction Status Date / Time No Known Allergies Allergy Unknown Verified 04/28/23 19:53 Home Meds Home Medications Medication Instructions Recorded Confirmed aspirin 81 mg tablet,delayed 81 mg PO QAM 03/14/22 09/19/23 release ferrous sulfate 325 mg (65 mg 325 mg PO DAILY 03/14/22 09/19/23 iron) tablet cyanocobalamin (vitamin B-12) 1,000 mcg PO DAILY 03/13/23 09/19/23 1,000 mcg tablet (Vitamin B-12) fluoxetine 20 mg capsule (Prozac) 20 mg PO DAILY 07/04/23 09/19/23 melatonin 3 mg tablet 3 mg PO HS 07/04/23 09/19/23 acetaminophen 325 mg tablet 650 mg PO Q6 PRN Fever Or Pain 09/19/23 09/19/23 ammonium lactate 12 % lotion 1 applic topical BID 09/19/23 09/19/23 insulin detemir U-100 100 unit/mL 14 unit subcut BID 09/19/23 09/19/23 subcutaneous solution (Levemir U-100 Insulin) insulin lispro 100 unit/mL 9 unit subcut AC 09/19/23 09/19/23 subcutaneous half-unit pen (Humalog Miah KwikPen (U-100)) nifedipine 60 mg tablet,extended 60 mg PO QAM 09/19/23 09/19/23 release 24 hr (Procardia XL) ondansetron HCl 4 mg tablet 4 mg PO Q6H PRN Nausea And Vomiting 09/19/23 09/19/23 Previous Rx's Medication Instructions Recorded pantoprazole 40 mg tablet,delayed 40 mg PO DAILY #30 tabs 07/24/23 release heparin, porcine (PF) 5,000 7,500 unit (0.75 mL) subcut Q12 14 09/29/23 unit/0.5 mL injection syringe days #21 mL Results & Data (ED) Vital Signs Vital Signs - 24 hr 03/30/25 14:45 03/30/25 14:49 03/30/25 14:53 Temperature 37.1 C Temperature Source Oral Pulse Rate 83 79 Pulse Rate [Apical] Respiratory Rate 18 Respiratory Effort / Characteristics Non-Labored Spontaneous Respiratory Depth Normal Respiratory Pattern Regular Blood Pressure 173/68 H Blood Pressure [Right Arm] Blood Pressure Mean 103 Blood Pressure Mean [Right Arm] Blood Pressure Position Lying Pulse Oximetry 98 96 Oxygen Delivery Method Nasal Cannula Oxygen Flow Rate 3 Sepsis Recent Fever Within 48 Hours No Sepsis New/Unexplained Change in Mental Status No Sepsis Action Taken by Nursing No Action Required 03/30/25 18:00 Temperature Temperature Source Pulse Rate Pulse Rate [Apical] 76 Respiratory Rate 16 Respiratory Effort / Characteristics Non-Labored Spontaneous Respiratory Depth Normal Respiratory Pattern Blood Pressure Blood Pressure [Right Arm] 200/68 H Blood Pressure Mean Blood Pressure Mean [Right Arm] 112 Blood Pressure Position Pulse Oximetry 100 Oxygen Delivery Method Room Air Oxygen Flow Rate Sepsis Recent Fever Within 48 Hours Sepsis New/Unexplained Change in Mental Status Sepsis Action Taken by Nursing Laboratory Data Attestation: I reviewed the patient's lab results. 03/30/25 14:47 03/30/25 14:47 Lab Results 03/30/25 03/30/25 Range/Units 14:47 15:59 WBC 17.95 H (4.8-10.8) K/ul RBC 2.77 L (4.20-5.40) M/uL Hgb 7.9 L (12.0-16.0) g/dl Hct 25.0 L (37.0-47.0) % MCV 90.3 (80.0-100.0) fL MCH 28.5 (25.0-34.0) pg MCHC 31.6 L (32.0-36.0) g/dL RDW Std Deviation 45.8 (36.4-46.3) fL RDW Coeff of Mya 13.8 (11.5-14.5) % Plt Count 186 (130-400) K/uL MPV 12.3 (9.4-12.4) fL Immature Gran % (Auto) 1.1 % Neut % (Auto) 84.8 % Lymph % (Auto) 6.6 % [place] % (Auto) 6.5 % Eos % (Auto) 0.7 % Baso % (Auto) 0.3 % Neut # (Auto) 15.23 H (1.40-6.50) K/uL Lymph # (Auto) 1.19 L (1.20-3.40) K/uL [place] # (Auto) 1.16 H (0.11-0.59) K/uL Eos # (Auto) 0.13 (0.00-0.50) K/uL Baso # (Auto) 0.05 (0.00-0.20) K/uL Immature Gran # (Auto) 0.19 (0.01-0.20) K/uL Hypochromasia Present Microcytosis Present PT 11.9 (9.0-12.0) Seconds INR 1.1 (0.9-1.1) VBG pH 7.33 L (7.36-7.41) VBG pCO2 60 H (38-50) mmHg VBG pO2 42 mmHg VBG HCO3 32 mmol/L VBG O2 Saturation 73.9 % VBG Base Excess 4.0 mEq/L Sodium 138 (136-145) mmol/L Potassium 4.8 (3.5-5.1) mmol/L Chloride 102 (98-107) mmol/L Carbon Dioxide 31 (21-32) mmol/L Anion Gap 5 (3-11) BUN 48 H (6-23) mg/dl Creatinine 1.87 H (0.6-1.2) mg/dl Est Cr Clr Drug Dosing 56.3 ml/min eGFR 31.20 BUN/Creatinine Ratio 25.7 H (10-20) Glucose 193 H (70-99(Fasting)) mg/dl Calcium 8.5 L (8.6-10.3) mg/dl Total Bilirubin 0.5 (0.2-1.0) mg/dl AST 8 L (13-39) U/L ALT 6 L (7-52) U/L Alkaline Phosphatase 79 (34-104) U/L Troponin I High Sens 12.5 (0-14) pg/ml Total Protein 6.5 (6.0-8.3) gm/dl Albumin 2.9 L (3.4-5.0) gm/dl Globulin 3.6 (2.5-4.0) gm/dl Albumin/Globulin Ratio 0.8 L (0.9-2) Lipase 9 L (11-82) U/L Procalcitonin 0.25 (0-0.5) ng/ml Administered Medications Discontinued Medications Morphine Sulfate (Morphine Sulfate 4 Mg/Ml 1 Ml Carp\Vial) 4 mg IV NOW STA Stop: 03/30/25 16:33 Last Admin: 03/30/25 17:42 Dose: 4 mg Documented By: Imaging Data Radiologist's Impression: Chest X-Ray 03/30/25 14:55 XR chest 1V portable CLINICAL HISTORY: abd pain COMPARISON STUDY: 09/19/2023 FINDINGS: There is stable cardiomegaly with pulmonary vascular congestion. Inspiration is shallow. Evaluation of the left lung base is limited by the overlying cardiac silhouette. No other consolidation or pleural effusion seen. No pneumothorax. IMPRESSION: Stable exam. ACT 112: Negative or not required by law. Electronically signed by: Jun Ortega M.D. 03/30/2025 3:08 PM Abdomen/Pelvis CT 03/30/25 16:32 Clinical History: Abdominal pain Technique: Axial computed tomography images were obtained of the abdomen and pelvis without intravenous contrast. Findings: The liver is overall of normal size, attenuation, and contour with no sign of cirrhosis or significant fatty infiltration. No definite liver mass lesion is seen on this noncontrast study. The gallbladder has been removed. No bile duct dilatation is noted. The spleen is of normal size. No focal splenic lesion is evident. The pancreas appears normal with no sign of acute or chronic pancreatitis and no mass lesion noted. The pancreatic duct is of normal caliber. The adrenal glands appear unremarkable. No renal or proximal ureteral calculi are seen. There is no hydronephrosis or perinephric stranding. No definite renal mass lesion is identified. The aorta is of normal caliber. No abdominal adenopathy is seen. The stomach appears normal. There is no sign of small bowel obstruction. There is acute diverticulitis of the proximal sigmoid colon, with an adjacent 6.8 x 4.3 cm complex collection of fluid and air, concerning for an abscess No distal ureteral or bladder calculi are seen. No obvious bladder mass lesion is evident. The iliac arteries are of normal caliber. There are small and mildly enlarged inguinal lymph nodes bilaterally. There is mild bilateral lung base atelectasis. Mild thoracolumbar degenerative disc disease is seen. No fracture is identified. No focal osseous lesion is seen Impression: Acute diverticulitis of the sigmoid colon with an adjacent 6.8 x 4.3 cm extraluminal collection of fluid and air, concerning for an abscess ACT 112: Positive. There are findings on this exam that require communication between the performing entity and the patient following Patient Test Result Information Act ([place] ACT 112) guidelines. Electronically signed by Darrell Olson 03-30-2025 5:37 PM Discharge Plan Visit Data Chief Complaint: Nausea Stated Complaint: AB PAIN, NAUSA, VOMITING ED Provider: Adrián Chiang Discharge Problem: Diverticulitis of large intestine with abscess, Leukocytosis, Left lower quadrant abdominal pain Patient Disposition: Admitted As Inpatient Condition: Serious Prescriptions Prescriptions: No Action cyanocobalamin (vitamin B-12) [Vitamin B-12] 1,000 mcg Tablet 1,000 mcg PO DAILY aspirin 81 mg Tablet,Delayed Release (Dr/Ec) 81 mg PO QAM ferrous sulfate 325 mg (65 mg iron) Tablet 325 mg PO DAILY melatonin 3 mg Tablet 3 mg PO HS fluoxetine [Prozac] 20 mg Capsule 20 mg PO DAILY pantoprazole 40 mg Tablet,Delayed Release (Dr/Ec) 40 mg PO DAILY Qty: 30 0RF acetaminophen 325 mg Tablet 650 mg PO Q6 MDD 3g PRN (Reason: Fever Or Pain) Rx Instructions: use for pain or temp>101 nifedipine [Procardia XL] 60 mg Tablet Extended Release 24hr 60 mg PO QAM ondansetron HCl 4 mg Tablet 4 mg PO Q6H PRN (Reason: Nausea And Vomiting) Levemir U-100 Insulin 100 unit/mL solution 14 unit SUBCUT BID insulin lispro [Humalog Miah KwikPen U-100] 100 unit/mL Insulin Pen, Half- Unit 9 unit SUBCUT AC Rx Instructions: hold insulin for less than 100 blood sugar, hold if eats 50% or lesss of meals ammonium lactate 12 % lotion 1 applic TOPICAL BID Rx Instructions: apply to BLE for xerosis...wash leg first heparin, porcine (PF) 5,000 unit/0.5 mL Syringe 7,500 unit subcut Q12 14 Days Qty: 21 1RF Referrals Referrals: Nikita Gibbs [Primary Care Provider] - Discharge Problem: Diverticulitis of large intestine with abscess Qualifiers: Diverticulitis bleeding: without bleeding Qualified Code(s): K57.20 - Diverticulitis of large intestine with perforation and abscess without bleeding Leukocytosis Qualifiers: Leukocytosis type: unspecified Qualified Code(s): D72.829 - Elevated white blood cell count, unspecified
--- NOTE | 2025-03-30 17:38 | CT Scan Report ---
Clinical History: Abdominal pain Technique: Axial computed tomography images were obtained of the abdomen and pelvis without intravenous contrast. Findings: The liver is overall of normal size, attenuation, and contour with no sign of cirrhosis or significant fatty infiltration. No definite liver mass lesion is seen on this noncontrast study. The gallbladder has been removed. No bile duct dilatation is noted. The spleen is of normal size. No focal splenic lesion is evident. The pancreas appears normal with no sign of acute or chronic pancreatitis and no mass lesion noted. The pancreatic duct is of normal caliber. The adrenal glands appear unremarkable. No renal or proximal ureteral calculi are seen. There is no hydronephrosis or perinephric stranding. No definite renal mass lesion is identified. The aorta is of normal caliber. No abdominal adenopathy is seen. The stomach appears normal. There is no sign of small bowel obstruction. There is acute diverticulitis of the proximal sigmoid colon, with an adjacent 6.8 x 4.3 cm complex collection of fluid and air, concerning for an abscess No distal ureteral or bladder calculi are seen. No obvious bladder mass lesion is evident. The iliac arteries are of normal caliber. There are small and mildly enlarged inguinal lymph nodes bilaterally. There is mild bilateral lung base atelectasis. Mild thoracolumbar degenerative disc disease is seen. No fracture is identified. No focal osseous lesion is seen Impression: Acute diverticulitis of the sigmoid colon with an adjacent 6.8 x 4.3 cm extraluminal collection of fluid and air, concerning for an abscess ACT 112: Positive. There are findings on this exam that require communication between the performing entity and the patient following Patient Test Result Information Act ([place] ACT 112) guidelines. Electronically signed by Darrell Olson 03-30-2025 5:37 PM
[2025-03-30] MEDS: MoRPHine SULFATE 4 MG/ML 1 ML CARP\\VIAL IV STA (17:42)
--- NOTE | 2025-03-30 18:16 | History & Physical Report ---
Date of Service March 30, 2025 Assessment & Plan (1) Diverticulitis of large intestine with abscess: (2) Left lower quadrant abdominal pain: Plan: Patient is 55 year old female with PMH insulin-dependent DM II, diabetic neuropathy, CKD III, HTN, HLD, chronic HFpEF, morbid obesity, history necrotizing fasciitis, bilateral lower extremity lymphedema, iron deficiency anemia, chronic metabolic alkalosis and others listed below presented to ER from [facility] for abdominal pain x 5 days. In ER afebrile, P: 83, R: 18, BP 173/68, 98% on chronic 3 L nasal cannula WBC: 17.9, lactate WNL CT Abd/pelvis: Acute diverticulitis of the sigmoid colon with an adjacent 6.8 x 4.3 cm extraluminal collection of fluid and air, concerning for an abscess In ER given Zosyn, morphine 4 mg IV, NSS at 125 mL/hour started N.p.o. Give gentle IVF with history CHF, closely monitor Zosyn, daptomycin Pain control with Tylenol, morphine General Surgery consult. ER physician spoke to on-call who recommended admission, IV antibiotics and consideration for possible IR drainage tomorrow CBC, BMP in a.m. #HTN (hypertension): Hypertensive in ER Did not have home meds today Resume nifedipine, losartan Control pain as above Monitor #CKD III History of progressive CKD Cr: 1.8. Recent baseline 1.5. Monitor renal functions, avoid nephrotoxic agents when possible If worsening consider nephrology consult #Chronic HFpEF 07/05/2023 echo: EF: 55-60%, grade 1 diastolic dysfunction, right ventricle severely dilated, severe tricuspid regurgitation, PA systolic pressure approximately 50 to mmHg, consistent with moderate pulmonary hypertension Currently appears euvolemic. Is NPO and receiving gentle IVF. Holding home torsemide and metolazone currently. Monitor volume status closely #Type 2 diabetes mellitus, with long-term current use of insulin: A1c: 6.9 on 01/24/2025 Hold home Trulicity Plan to decrease home insulin while NPO, monitor and may need further adjustment #Chronic iron deficiency anemia: Hgb: 7.9. Baseline low 8's Monitor Continue iron supplement, B12 #Lymphedema of both lower extremities: Currently does not appear cellulitic DVT Prophylaxis SCDs for now Admit telemetry Full Code as per discussion with pt Follows with Dr Gibbs at [facility] for routine care Pt was seen and care coordinated with Dr Almaraz. See addendum I spent a total of 70 minutes reviewing notes, outpatient records, labs, medication, coordinating, documenting and providing care for this patient excluding time spent in the performance of separately billed services and excluding time spent by another provider/QHP. History of Present Illness Chief Complaint: abdominal pain Primary Care Provider: Nikita Gibbs Patient is 55 year old female with PMH insulin-dependent DM II, diabetic neuropathy, CKD III, HTN, HLD, chronic HFpEF, morbid obesity, history necrotizing fasciitis, bilateral lower extremity lymphedema, iron deficiency anemia, chronic metabolic alkalosis and others listed below presented to ER from [facility] for abdominal pain x 5 days. Patient states 5 days ago started with left lower abdominal pain that was sharp and burning. She had nausea and vomited once. LLQ abdominal pain has continued and patient with decreased appetite. Has tried liquid diet past 4 days without relief. Taking Tylenol without relief. Last BM 5 days ago. Denies history colonoscopy. Patient states had morning insulin but did not take any of her other medications. Denies fever/chills, diaphoresis, diarrhea, GUO, dizziness, syncope, vision changes, neck pain, CP, SOB, palpitations, cough, sore throat, otalgia, rhinorrhea, increased weakness, increased extremity edema, rashes, urinary symptoms. Allergies Allergy/AdvReac Type Severity Reaction Status Date / Time No Known Allergies Allergy Unknown Verified 04/28/23 19:53 Home Medications Medication Instructions Recorded Confirmed Type aspirin 81 mg tablet,delayed 81 mg PO QAM 03/14/22 03/30/25 History release ferrous sulfate 325 mg (65 mg 325 mg PO DAILY 03/14/22 03/30/25 History iron) tablet cyanocobalamin (vitamin B-12) 1,000 mcg PO DAILY 03/13/23 03/30/25 History 1,000 mcg tablet (Vitamin B-12) pantoprazole 40 mg tablet,delayed 40 mg PO DAILY #30 tabs 07/24/23 03/30/25 Rx release acetaminophen 325 mg tablet 650 mg PO Q6 PRN Fever Or Pain 09/19/23 03/30/25 History ammonium lactate 12 % lotion 1 applic topical BID 09/19/23 03/30/25 History acetaminophen 500 mg tablet 1,000 mg PO Q8 03/30/25 03/30/25 History bisacodyl 10 mg rectal suppository 10 mg [place] UD PRN Constipation 03/30/25 03/30/25 History (Dulcolax (bisacodyl)) capsaicin 0.1 % topical cream 1 applic topical Q12 PRN pain 03/30/25 03/30/25 History lower extremities diclofenac sodium 1 % topical gel 4 g topical QID PRN Pain 03/30/25 03/30/25 History dulaglutide 0.75 mg/0.5 mL 0.75 mg subcut WK 03/30/25 03/30/25 History subcutaneous pen injector (Trulicity) ergocalciferol (vitamin D2) 1,250 50,000 unit PO UD 03/30/25 03/30/25 History mcg (50,000 unit) capsule (Vitamin D2) estradiol 0.5 mg tablet 0.5 mg PO DAILY 03/30/25 03/30/25 History insulin aspart U-100 100 unit/mL 12 unit subcut TIDM 03/30/25 03/30/25 History (3 mL) subcutaneous pen insulin glargine 100 unit/mL (3 16 unit subcut BID 03/30/25 03/30/25 History mL) subcutaneous pen (Lantus Solostar U-100 Insulin) losartan 25 mg tablet 25 mg PO DAILY 03/30/25 03/30/25 History metolazone 2.5 mg tablet 2.5 mg PO DAILY 03/30/25 03/30/25 History nifedipine 30 mg tablet,extended 30 mg PO DAILY 03/30/25 03/30/25 History release 24 hr potassium chloride 10 mEq 10 meq PO BID 03/30/25 03/30/25 History tablet,extended release(part/cryst) torsemide 100 mg tablet 100 mg PO BID 03/30/25 03/30/25 History Past Med/Surg History Problem List Left lower quadrant abdominal pain (Acute) Leukocytosis (Acute) Diverticulitis of large intestine with abscess (Acute) CKD (chronic kidney disease) Pickwickian syndrome Morbid obesity Hypercapnic respiratory failure Hyperkalemia Neuropathy Chronic iron deficiency anemia Hypercarbia Metabolic encephalopathy Acute alteration in mental status (Acute) Carbon dioxide retention (Acute) CHF (congestive heart failure) (Acute) Acute respiratory acidosis (Acute) Uncontrolled hypertension Right heart failure Acute on chronic heart failure with preserved ejection fraction (HFpEF) CKD (chronic kidney disease) stage 3, GFR 30-59 ml/min Chest pain (Acute) Acute on chronic renal insufficiency (Acute) Elevated troponin (Acute) Fluid overload (Acute) CHF (congestive heart failure) Anemia Cellulitis (Acute) Diabetic ulcer of foot associated with type 2 diabetes mellitus, with bone involvement without evidence of necrosis (Acute) Lower limb ulcer, heel or midfoot Lymphedema of both lower extremities Hypertension (Acute) Hyperglycemia (Acute) Nausea (Acute) DAHLIA (acute kidney injury) Cellulitis of left leg (Acute) Acute hyperglycemia (Acute) Obesity Cellulitis of left lower extremity Abscess of left lower leg Wound of lower extremity DKA (diabetic ketoacidosis) Diabetic foot infection (Acute) UTI (urinary tract infection) (Acute) Hypokalemia Gangrene of lower extremity (Acute) Personal history of diabetic foot ulcer Loss of protective sensation of skin of foot Type 2 diabetes mellitus with complications Type 2 diabetes mellitus, with long-term current use of insulin (Acute) Diabetic peripheral neuropathy associated with type 2 diabetes mellitus Diabetes type 2, uncontrolled Vitamin D deficiency Dyslipidemia Varicose veins of both lower extremities Depression with anxiety (Chronic) Tobacco use HTN (hypertension) (Chronic) Medical History Back pain Xerosis cutis Insomnia Hirsutism Fatigue Dysfunctional uterine bleeding History of DVT (deep vein thrombosis) Surgical History History of incision and drainage left foot by Dr. Haq on 10-03-19. H/O tooth extraction History of cholecystectomy History of facial surgery History of nasal polypectomy History of endometrial ablation History of tubal ligation History of hysterectomy History of Family History Father Dyslipidemia Prostate cancer Diabetes Lung cancer Mother Lung cancer Hypothyroidism Brother Coronary heart disease Asthma Grandfather (Maternal) Myocardial infarction Grandmother (Maternal) Myocardial infarction Grandmother (Paternal) Breast cancer Diabetes Social History Smoking Status: Former smoker Tobacco Type: Cigarettes Hx Alcohol Use: No Hx Substance Use: No Preferred Language: Montenegrin Communication Ability: Effective 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 Beliefs That Will Affect Care: None marital status: Single Current Living Situation: Rehab Current Living Situation Comment: [facility] Feels Safe at Home: Yes Assistive Devices: Hospital Bed, Walker and Wheelchair Review of Systems Review of Systems: All systems reviewed & are unremarkable except as noted in HPI & below Physical Exam Physical Exam: General: no acute distress, obese female Head: normocephalic, atraumatic Eyes:conjunctiva non-injected, anicteric ENT: normal inspection external ears, nose, mucous membranes moist Neck: supple, trachea midline Lungs: clear, no respiratory distress, no wheezing/rhonchi/rales CV: RRR, no murmur Abd: protuberant, normal BS, soft, +tender to palpation LLQ Ext: no cyanosis, no calf tenderness, +bilateral lower extremity edema, mild erythema distal extremities that is nontender and no significant warmth Neuro: A&O x 3, no focal deficits noted, normal affect Skin: warm, dry Results & Data Results & Data Vital Signs (Past 12 Hours) Vital Signs Temp Pulse Resp BP Pulse Ox O2 Del Method O2 Flow Rate 03/30/25 14:53 96 03/30/25 14:49 79 03/30/25 14:45 37.1 C 83 18 173/68 H 98 Nasal Cannula 3 Laboratory Results Short CBC 03/30/25 Range/Units 14:47 WBC 17.95 H (4.8-10.8) K/ul Hgb 7.9 L (12.0-16.0) g/dl Hct 25.0 L (37.0-47.0) % Plt Count 186 (130-400) K/uL BMP 03/30/25 14:47 Sodium 138 Potassium 4.8 Chloride 102 Carbon Dioxide 31 BUN 48 H Creatinine 1.87 H Glucose 193 H Calcium 8.5 L Liver Function 03/30/25 Range/Units 14:47 Total Bilirubin 0.5 (0.2-1.0) mg/dl AST 8 L (13-39) U/L ALT 6 L (7-52) U/L Alkaline Phosphatase 79 (34-104) U/L Albumin 2.9 L (3.4-5.0) gm/dl Diagnostic Findings Chest X-Ray 03/30/25 14:55 XR chest 1V portable CLINICAL HISTORY: abd pain COMPARISON STUDY: 09/19/2023 FINDINGS: There is stable cardiomegaly with pulmonary vascular congestion. Inspiration is shallow. Evaluation of the left lung base is limited by the overlying cardiac silhouette. No other consolidation or pleural effusion seen. No pneumothorax. IMPRESSION: Stable exam. ACT 112: Negative or not required by law. Electronically signed by: Jun Ortega M.D. 03/30/2025 3:08 PM Abdomen/Pelvis CT 03/30/25 16:32 Clinical History: Abdominal pain Technique: Axial computed tomography images were obtained of the abdomen and pelvis without intravenous contrast. Findings: The liver is overall of normal size, attenuation, and contour with no sign of cirrhosis or significant fatty infiltration. No definite liver mass lesion is seen on this noncontrast study. The gallbladder has been removed. No bile duct dilatation is noted. The spleen is of normal size. No focal splenic lesion is evident. The pancreas appears normal with no sign of acute or chronic pancreatitis and no mass lesion noted. The pancreatic duct is of normal caliber. The adrenal glands appear unremarkable. No renal or proximal ureteral calculi are seen. There is no hydronephrosis or perinephric stranding. No definite renal mass lesion is identified. The aorta is of normal caliber. No abdominal adenopathy is seen. The stomach appears normal. There is no sign of small bowel obstruction. There is acute diverticulitis of the proximal sigmoid colon, with an adjacent 6.8 x 4.3 cm complex collection of fluid and air, concerning for an abscess No distal ureteral or bladder calculi are seen. No obvious bladder mass lesion is evident. The iliac arteries are of normal caliber. There are small and mildly enlarged inguinal lymph nodes bilaterally. There is mild bilateral lung base atelectasis. Mild thoracolumbar degenerative disc disease is seen. No fracture is identified. No focal osseous lesion is seen Impression: Acute diverticulitis of the sigmoid colon with an adjacent 6.8 x 4.3 cm extraluminal collection of fluid and air, concerning for an abscess ACT 112: Positive. There are findings on this exam that require communication between the performing entity and the patient following Patient Test Result Information Act ([place] ACT 112) guidelines. Electronically signed by Darrell Olson 03-30-2025 5:37 PM Supervising Physician Co-Signing Physician Notes Patient seen and examined at bedside. Patient uncomfortable today with LLQ pain, began one week ago. Has been getting worse since. On exam, 2+ nonpitting edema noted bilaterally, trace pitting edema bilaterally. CT abdomen/pelvis revealing extraluminal sigmoid abscess with acute diverticulitis. WBC 17 without tachycardia, tachypnea, or fevers. Patient presenting with extraluminal sigmoid abscess in setting of acute diverticulitis, without fitting SIRS criteria for sepsis. IR consult for abscess drainage in AM, vanc/zosyn, fluid resuscitation. Blood cultures ordered. May need transferred if IR unable to do abscess drainage. I have seen and discussed the case with the collaborating advanced practitioner. I agree with the above H&P. I have reviewed and confirmed the patients medical history, the findings on physical examination, and the patients diagnosis and treatment plan with Lesley DC and agree with the information documented. I spent a total of 40 minutes coordinating, documenting, and providing care for this patient excluding time spent in the performance of separately billed services. All of the aforementioned completed outside of collaborating with the assigned advanced practitioner for a full treatment plan. I have reviewed the advanced practitioner's documentation, and I agree with, and take responsibility for the plan of care (1) Diverticulitis of large intestine with abscess Diverticulitis bleeding: without bleeding Qualified Code(s): K57.20 - Diverticulitis of large intestine with perforation and abscess without bleeding
[2025-03-30] MEDS ORDERED: VANCOMYCIN CONSULT ACTIVE PRN ×2 (18:40→21:33)
[2025-03-30] MEDS: PIPERACILLIN/TAZOBACTAM 4.5 GM/100 ML BAG IV ONE (18:46)
[2025-03-30] MEDS: SODIUM CHLORIDE 0.9% 500 ML IV SCH (18:47)
--- NOTE | 2025-03-30 19:43 | Surgery Consultation ---
Date of Consultation March 30, 2025 Assessment & Plan (1) Diverticulitis of large intestine with abscess: The patient has been admitted on the hospitalist service. From a surgical perspective we recommend the following: Provide analgesics Provide antiemetics Implement n.p.o. status Provide IV fluid for hydration Antibiotics in form of daptomycin and Zosyn have been initiated in edition continue I reviewed the CT scan findings with the patient. I informed her that she does have diverticulitis with abscess however at the time of my interview she was nontoxic-appearingthat she did not have an acute abdomen, she was afebrile and normotensive without fever. I therefore feel conservative measures as outlined above are warranted without the need for emergent surgical intervention. In addition, due to the size of the abscess I discussed with the patient that tomorrow we will have our interventional radiology colleagues to review her CT scan to see if the abscess noted is amendable to percutaneous drainage. I also did discuss with the patient however, that she does clinically deteriorate the need for an emergent operation may be required but the need for this is to be determinedI did discuss with her that if she would require surgical intervention at this time would likely necessitate at least a temporary colostomy. Serial labs should be followed Additional recommendations will be forthcoming based on her clinical course as unfolds Would recommend utilizing only SCDs for DVT prevention, no chemical needs until it is ascertain whether or not the patient will undergo any surgical or procedural intervention Supervising Physician Co-Signing Physician Notes Pnt d/w ANA, labs and imaging reviewed, agree with above. presented with abd pain, CT shows diverticulitis with 6x4cm abscess. Admit to medicine, abx, npo, ir drainage. History of Present Illness Reason for Consultation: Diverticulitis History of Present Illness This is a 55-year-old female who presented to the emergency department secondary to abdominal pain. Patient says that she is currently in the [facility] to undergo wound care for her lower extremity problem. She notes that approximately 6 days ago she developed some left lower quadrant abdominal pain after having a bowel movement. She has had some associated nausea and vomiting. Since this problem began she was placed on a clear liquid diet but her symptoms persisted. She has not had any fevers, shakes, or chills but does report poor appetite. She has had prior abdominal surgeries in the form of a and a cholecystectomy. She also reports that she has never had a colonoscopy. To the best of her knowledge she has never had any episodes of diverticulitis. Because of her symptomatology she was sent to the emergency department for further evaluation. In the emergency department she had labs and imaging which I independently reviewed. Chest x-ray showed some pulmonary vascular congestion but no discrete infiltrates were noted. She underwent a CT scan of the abdomen pelvis. This study showed the patient had acute diverticulitis of the sigmoid colon with a noted 6.8 x 4.3 cm extraluminal collection of fluid and air concerning for an abscess. There is no evidence of small bowel obstruction on this study. Labs included CBC white blood cell count was elevated 17.9. Hemoglobin and hematocrit were 7.9 and 25.0. Platelet count was normal. Coagulation studies are normal. Chemistry profile showed sodium and potassium were normal. Her BUN and creatinine are 48 and 1.8. (Review of records show her creatinine typically runs in the 1.2-1.5 range). A lactic acid level was not elevated at 0.8. Lipase was not elevated. There is no elevation of patient's LFTs. At the time of my interview the patient was resting comfortably in bed and she was in no distress. Allergies Allergy/AdvReac Type Severity Reaction Status Date / Time No Known Allergies Allergy Unknown Verified 04/28/23 19:53 Home Medications Medication Instructions Recorded Confirmed Type aspirin 81 mg tablet,delayed 81 mg PO QAM 03/14/22 03/30/25 History release ferrous sulfate 325 mg (65 mg 325 mg PO DAILY 03/14/22 03/30/25 History iron) tablet cyanocobalamin (vitamin B-12) 1,000 mcg PO DAILY 03/13/23 03/30/25 History 1,000 mcg tablet (Vitamin B-12) pantoprazole 40 mg tablet,delayed 40 mg PO DAILY #30 tabs 07/24/23 03/30/25 Rx release acetaminophen 325 mg tablet 650 mg PO Q6 PRN Fever Or Pain 09/19/23 03/30/25 History ammonium lactate 12 % lotion 1 applic topical BID 09/19/23 03/30/25 History acetaminophen 500 mg tablet 1,000 mg PO Q8 03/30/25 03/30/25 History bisacodyl 10 mg rectal suppository 10 mg [place] UD PRN Constipation 03/30/25 03/30/25 History (Dulcolax (bisacodyl)) capsaicin 0.1 % topical cream 1 applic topical Q12 PRN pain 03/30/25 03/30/25 History lower extremities diclofenac sodium 1 % topical gel 4 g topical QID PRN Pain 03/30/25 03/30/25 History dulaglutide 0.75 mg/0.5 mL 0.75 mg subcut WK 03/30/25 03/30/25 History subcutaneous pen injector (Trulicity) ergocalciferol (vitamin D2) 1,250 50,000 unit PO UD 03/30/25 03/30/25 History mcg (50,000 unit) capsule (Vitamin D2) estradiol 0.5 mg tablet 0.5 mg PO DAILY 03/30/25 03/30/25 History insulin aspart U-100 100 unit/mL 12 unit subcut TIDM 03/30/25 03/30/25 History (3 mL) subcutaneous pen insulin glargine 100 unit/mL (3 16 unit subcut BID 03/30/25 03/30/25 History mL) subcutaneous pen (Lantus Solostar U-100 Insulin) losartan 25 mg tablet 25 mg PO DAILY 03/30/25 03/30/25 History metolazone 2.5 mg tablet 2.5 mg PO DAILY 03/30/25 03/30/25 History nifedipine 30 mg tablet,extended 30 mg PO DAILY 03/30/25 03/30/25 History release 24 hr potassium chloride 10 mEq 10 meq PO BID 03/30/25 03/30/25 History tablet,extended release(part/cryst) torsemide 100 mg tablet 100 mg PO BID 03/30/25 03/30/25 History Patient History Medical History Back pain Xerosis cutis Insomnia Hirsutism Fatigue Dysfunctional uterine bleeding History of DVT (deep vein thrombosis) Surgical History History of incision and drainage left foot by Dr. Haq on 10-03-19. H/O tooth extraction History of cholecystectomy History of facial surgery History of nasal polypectomy History of endometrial ablation History of tubal ligation History of hysterectomy History of Family History Father Dyslipidemia Prostate cancer Diabetes Lung cancer Mother Lung cancer Hypothyroidism Brother Coronary heart disease Asthma Grandfather (Maternal) Myocardial infarction Grandmother (Maternal) Myocardial infarction Grandmother (Paternal) Breast cancer Diabetes Social History Smoking Status: Former smoker Tobacco Type: Cigarettes Hx Alcohol Use: No Hx Substance Use: No Preferred Language: Divehi Communication Ability: Effective 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 Beliefs That Will Affect Care: None marital status: Single Current Living Situation: Rehab Current Living Situation Comment: [place] Feels Safe at Home: Yes Assistive Devices: Hospital Bed, Walker and Wheelchair Review of Systems Review of Systems: All systems reviewed & are unremarkable except as noted in HPI & below Physical Exam Constitutional: WD/WN, vitals as above Eyes: no conjunctival abnormality ENMT: Ears: no hearing impairment and no external ear abnormality Mouth: no oropharynx abnormality Neck: trachea midline Respiratory: normal respiratory effort; no respiratory distress and no labored breathing Cardiovascular: Rate/Rhythm: regular rate and regular rhythm Gastrointestinal (Abdomen): At the time of my exam the patient was noted to have a rotund abdomen which was soft and nondistended. There is no rigidity. There is no rebound tenderness, guarding, or signs of peritonitis. The patient did have pain with palpation greatest in the left lower quadrant. Musculoskeletal: Bilateral lower extremity edema is noted Skin: no rashes Neurologic: moves all extremities Psychiatric: A+Ox3, euthymic affect Results & Data Vital Signs (Past 12 Hours) Vital Signs Temp Pulse Pulse Resp BP BP Pulse Ox 03/30/25 18:34 87 03/30/25 18:00 76 16 200/68 H 100 03/30/25 14:53 96 03/30/25 14:49 79 03/30/25 14:45 37.1 C 83 18 173/68 H 98 O2 Del Method O2 Flow Rate 03/30/25 18:34 03/30/25 18:00 Room Air 03/30/25 14:53 03/30/25 14:49 03/30/25 14:45 Nasal Cannula 3 PG Care Time/CCT Total # of Minutes Spent Total Time Spent with Patient: Total time spent is greater than 50% in coordination of care (as documented) at patient's floor/unit and/or counseling patient: Coding Level of Care Code 09491 IN/OBS CONSULT LVL 5,80M Diagnoses Diverticulitis of large intestine with abscess K57.20 Diverticulitis bleeding: without bleeding (1) Diverticulitis of large intestine with abscess Diverticulitis bleeding: without bleeding Qualified Code(s): K57.20 - Diverticulitis of large intestine with perforation and abscess without bleeding
[2025-03-30] MEDS: DAPTOmycin 700 MG in SYRINGE 0 ML IV SCH (19:55)
[2025-03-30] MEDS: LOSARTAN POTASSIUM 25 MG TAB PO ONE (19:55)
[2025-03-30] MEDS: NIFEdipine EXTENDED REL 30 MG TABCR PO STA (21:11)
[2025-03-30] MEDS: PANTOprazole 40 MG/10 ML SYR IV ONE (21:27)
[2025-03-30] MEDS ORDERED: DICLOFENAC SOD 1% GEL 100 GM TUBE EXT PRN (21:33)
[2025-03-30] MEDS ORDERED: GLUCOSE 40% GEL 15 GM TUBE PO PRN (21:33)
[2025-03-30] MEDS ORDERED: POLYETHYLENE (MIRALAX) 17 GM PACK PO PRN (21:33)
[2025-03-30] MEDS ORDERED: GLUCOSE 10 TAB/TUBE PO PRN (21:33)
[2025-03-30] MEDS ORDERED: GLUCAGON FOR INJ 1 MG VIAL SQ PRN (21:33)
[2025-03-30] MEDS ORDERED: DEXTROSE 50% 50 ML SYRINGE IV PRN (21:33)
[2025-03-30] MEDS ORDERED: ACETAMINOPHEN 1,000 MG/100 ML VIAL IV PRN (21:33)
[2025-03-30] MEDS ORDERED: CARBOHYDRATES FOR HYPOGLYCEMIA PO PRN (21:33)
[2025-03-30] MEDS: LANTUS PER UNIT CHARGE SQ SCH (22:03)
[2025-03-30] MEDS: SODIUM CHLORIDE 0.9% 1,000 ML IV SCH (22:03)
[2025-03-30] MEDS: MoRPHine SULFATE 4 MG/ML 1 ML CARP\\VIAL IV PRN (22:05)
[2025-03-30] MEDS: ONDANSETRON INJ 2 MG/ML 2 ML VIAL IV PRN (22:09)
[2025-03-31] MEDS: PIPERACILLIN/TAZOBACTAM 4.5 GM/100 ML BAG IV SCH (00:52)
[2025-03-31] MEDS: INSULIN ASPART PER UNIT CHARGE SC SCH (01:08)
[2025-03-31] MEDS: METOPROLOL TARTRATE 1 MG/ML VIAL IV STA (01:36)
[2025-03-31] MEDS: CYANOCOBALAMIN (B-12) 500 MCG TABLET PO SCH (08:16)
[2025-03-31] MEDS: LOSARTAN POTASSIUM 25 MG TAB PO SCH (08:16)
[2025-03-31] MEDS: NIFEdipine EXTENDED REL 30 MG TABCR PO SCH (08:16)
[2025-03-31] MEDS: FERROUS SULFATE 325 MG TAB PO SCH (08:16)
[2025-03-31] MEDS: PANTOprazole 40 MG/10 ML SYR IV SCH (08:22)
[2025-03-31 10:16] LABS: Hematocrit (blood only) 24.8 % (37.0-47.0); Hemoglobin 7.6 g/dl (12.0-16.0); Immature Granulocytes # (auto) 0.21 K/uL (0.01-0.20); Immature Granulocytes % (auto) 1.2 %; Mean Corpuscular Hemoglobin 27.7 pg (25.0-34.0); Mean Corpuscular Volume 90.5 fL (80.0-100.0); Platelet Count 197 K/uL (130-400); RDW Standard Deviation 46.6 fL (36.4-46.3); Red Blood Count 2.74 M/uL (4.20-5.40); White Blood Count 18.00 K/ul (4.8-10.8)
[2025-03-31 10:37] LABS: Anion Gap 8.0 (3-11); Blood Urea Nitrogen 50.0 mg/dl (6-23); Calcium 8.4 mg/dl (8.6-10.3); Carbon Dioxide 29.0 mmol/L (21-32); Chloride 102.0 mmol/L (98-107); Creatinine Clr Calc Pharmacy 50.9 ml/min; Glucose 161.0 mg/dl (70-99(Fasting)); Potassium 5.1 mmol/L (3.5-5.1); Sodium 139.0 mmol/L (136-145)
[2025-03-31 10:50] LABS: Polychromasia 1+; Stomatocytes 1+
[2025-03-31] MEDS ORDERED: PROMETHAZINE 12.5 MG/50.5 ML BAG IV PRN (11:18)
--- NOTE | 2025-03-31 12:54 | Surgery Progress Note ---
Date of Service March 31, 2025 Assessment & Plan (1) Diverticulitis of large intestine with abscess: Plan: Diverticulitis, with associated phlegmon versus tubo-ovarian abscess, may be related to fistulization or diverticulitis. She does have chronic kidney dis ease, so IV contrast was not used. After discussion with radiology, we will treat conservatively with antibiotics. May need repeat imaging. Would recommend oral and IV contrast for that scan. We will also consult gynecology to get their opinion. Overall, given her medical problems and body habitus, be hesitate to intervene. If she required surgery, consider transfer to a tertiary center. No surgical intervention at this time Not amenable to drainage Treat with IV antibiotics, bowel rest for now Consult gynecology Consider repeat imaging next week Surgical follow, call with questions or concerns (2) Morbid obesity: (3) Right heart failure: (4) CKD (chronic kidney disease) stage 3, GFR 30-59 ml/min: (5) Type 2 diabetes mellitus, with long-term current use of insulin: (6) HTN (hypertension): Admission and Anticipated Discharge Date Admission Date: March 30, 2025 Subjective Patient admitted with diverticulitis and concern for diverticular abscess. Started having pain last Friday, worsened. No prior colonoscopy. No fevers. No history of diverticulitis. Physical Exam Constitutional: WD/WN, vitals as above + morbidly obese Gastrointestinal (Abdomen): Percussion/Palpation: + abdomen tender (Left lower quadrant) and abdomen soft; no guarding and abdomen not rigid Results & Data Vital Signs (Past 12 Hours) Vital Signs Temp Pulse Pulse Pulse Resp BP BP 03/31/25 11:09 37.1 C 73 18 144/78 H 03/31/25 10:25 03/31/25 07:29 37.3 C 70 18 139/74 03/31/25 07:26 73 03/31/25 01:58 36.6 C 72 16 120/74 03/31/25 01:57 72 120/74 03/31/25 01:36 89 169/72 H 03/31/25 01:14 36.8 C 89 20 169/72 H 03/31/25 01:11 36.8 C 89 20 169/72 H Pulse Ox O2 Del Method O2 Flow Rate 03/31/25 11:09 93 Nasal Cannula 1 03/31/25 10:25 Nasal Cannula 1 03/31/25 07:29 97 Nasal Cannula 1 03/31/25 07:26 03/31/25 01:58 100 Nasal Cannula 3 03/31/25 01:57 03/31/25 01:36 03/31/25 01:14 100 Nasal Cannula 3 03/31/25 01:11 100 Nasal Cannula 3 Laboratory Results Laboratory Results - last 24 hr 03/30/25 03/30/25 03/30/25 14:47 15:59 18:26 WBC 17.95 H RBC 2.77 L Hgb 7.9 L Hct 25.0 L MCV 90.3 MCH 28.5 MCHC 31.6 L RDW Std Deviation 45.8 RDW Coeff of Mya 13.8 Plt Count 186 MPV 12.3 Immature Gran % (Auto) 1.1 Neut % (Auto) 84.8 Lymph % (Auto) 6.6 Nash % (Auto) 6.5 Eos % (Auto) 0.7 Baso % (Auto) 0.3 Neut # (Auto) 15.23 H Lymph # (Auto) 1.19 L Nash # (Auto) 1.16 H Eos # (Auto) 0.13 Baso # (Auto) 0.05 Immature Gran # (Auto) 0.19 Polychromasia Hypochromasia Present Microcytosis Present Stomatocytes PT 11.9 INR 1.1 VBG pH 7.33 L VBG pCO2 60 H VBG pO2 42 VBG HCO3 32 VBG O2 Saturation 73.9 VBG Base Excess 4.0 Sodium 138 Potassium 4.8 Chloride 102 Carbon Dioxide 31 Anion Gap 5 BUN 48 H Creatinine 1.87 H Est Cr Clr Drug Dosing 56.3 eGFR 31.20 BUN/Creatinine Ratio 25.7 H Glucose 193 H POC Glucose Lactate 0.8 Calcium 8.5 L Total Bilirubin 0.5 AST 8 L ALT 6 L Alkaline Phosphatase 79 Troponin I High Sens 12.5 Total Protein 6.5 Albumin 2.9 L Globulin 3.6 Albumin/Globulin Ratio 0.8 L Lipase 9 L Procalcitonin 0.25 Nasal Screen MRSA (PCR) 03/30/25 03/31/25 03/31/25 21:09 01:02 06:15 WBC RBC Hgb Hct MCV MCH MCHC RDW Std Deviation RDW Coeff of Mya Plt Count MPV Immature Gran % (Auto) Neut % (Auto) Lymph % (Auto) Nash % (Auto) Eos % (Auto) Baso % (Auto) Neut # (Auto) Lymph # (Auto) Nash # (Auto) Eos # (Auto) Baso # (Auto) Immature Gran # (Auto) Polychromasia Hypochromasia Microcytosis Stomatocytes PT INR VBG pH VBG pCO2 VBG pO2 VBG HCO3 VBG O2 Saturation VBG Base Excess Sodium Potassium Chloride Carbon Dioxide Anion Gap BUN Creatinine Est Cr Clr Drug Dosing eGFR BUN/Creatinine Ratio Glucose POC Glucose 185 H 161 H Lactate Calcium Total Bilirubin AST ALT Alkaline Phosphatase Troponin I High Sens Total Protein Albumin Globulin Albumin/Globulin Ratio Lipase Procalcitonin Nasal Screen MRSA (PCR) Positive A 03/31/25 03/31/25 09:37 11:50 WBC 18.00 H RBC 2.74 L Hgb 7.6 L Hct 24.8 L MCV 90.5 MCH 27.7 MCHC 30.6 L RDW Std Deviation 46.6 H RDW Coeff of Mya 14.2 Plt Count 197 MPV 12.1 Immature Gran % (Auto) 1.2 Neut % (Auto) 86.8 Lymph % (Auto) 4.9 Nash % (Auto) 6.4 Eos % (Auto) 0.4 Baso % (Auto) 0.3 Neut # (Auto) 15.63 H Lymph # (Auto) 0.88 L Nash # (Auto) 1.15 H Eos # (Auto) 0.08 Baso # (Auto) 0.05 Immature Gran # (Auto) 0.21 H Polychromasia 1+ Hypochromasia Microcytosis Stomatocytes 1+ PT INR VBG pH VBG pCO2 VBG pO2 VBG HCO3 VBG O2 Saturation VBG Base Excess Sodium 139 Potassium 5.1 Chloride 102 Carbon Dioxide 29 Anion Gap 8 BUN 50 H Creatinine 2.06 H Est Cr Clr Drug Dosing 50.9 eGFR 27.78 BUN/Creatinine Ratio 24.3 H Glucose 161 H POC Glucose 166 H Lactate Calcium 8.4 L Total Bilirubin AST ALT Alkaline Phosphatase Troponin I High Sens Total Protein Albumin Globulin Albumin/Globulin Ratio Lipase Procalcitonin Nasal Screen MRSA (PCR) Diagnostic Findings CT scan personally viewed and interpreted and agree with the assessment of mild diverticulitis. We did discuss this with radiology as well as with our interventional radiology, and it appears that what was felt to be an abscess may be an infected ovary. There is not much of a fluid component to it but there is some air. This may be related to the diverticulitis or not. At this point it does not appear amenable to drainage. Chest X-Ray 03/30/25 14:55 XR chest 1V portable CLINICAL HISTORY: abd pain COMPARISON STUDY: 09/19/2023 FINDINGS: There is stable cardiomegaly with pulmonary vascular congestion. Inspiration is shallow. Evaluation of the left lung base is limited by the overlying cardiac silhouette. No other consolidation or pleural effusion seen. No pneumothorax. IMPRESSION: Stable exam. ACT 112: Negative or not required by law. Electronically signed by: Jun Ortega M.D. 03/30/2025 3:08 PM Abdomen/Pelvis CT 03/30/25 16:32 Clinical History: Abdominal pain Technique: Axial computed tomography images were obtained of the abdomen and pelvis without intravenous contrast. Findings: The liver is overall of normal size, attenuation, and contour with no sign of cirrhosis or significant fatty infiltration. No definite liver mass lesion is seen on this noncontrast study. The gallbladder has been removed. No bile duct dilatation is noted. The spleen is of normal size. No focal splenic lesion is evident. The pancreas appears normal with no sign of acute or chronic pancreatitis and no mass lesion noted. The pancreatic duct is of normal caliber. The adrenal glands appear unremarkable. No renal or proximal ureteral calculi are seen. There is no hydronephrosis or perinephric stranding. No definite renal mass lesion is identified. The aorta is of normal caliber. No abdominal adenopathy is seen. The stomach appears normal. There is no sign of small bowel obstruction. There is acute diverticulitis of the proximal sigmoid colon, with an adjacent 6.8 x 4.3 cm complex collection of fluid and air, concerning for an abscess No distal ureteral or bladder calculi are seen. No obvious bladder mass lesion is evident. The iliac arteries are of normal caliber. There are small and mildly enlarged inguinal lymph nodes bilaterally. There is mild bilateral lung base atelectasis. Mild thoracolumbar degenerative disc disease is seen. No fracture is identified. No focal osseous lesion is seen Impression: Acute diverticulitis of the sigmoid colon with an adjacent 6.8 x 4.3 cm extraluminal collection of fluid and air, concerning for an abscess ACT 112: Positive. There are findings on this exam that require communication between the performing entity and the patient following Patient Test Result Information Act ([place] ACT 112) guidelines. Electronically signed by Darrell Olson 03-30-2025 5:37 PM PG Care Time/CCT Total # of Minutes Spent Total Time Spent with Patient: Total time spent is greater than 50% in coordination of care (as documented) at patient's floor/unit and/or counseling patient: Coding Level of Care Code 13454 SUB INP/OBS CARE 35MIN Diagnoses Diverticulitis of large intestine with abscess K57.20 Diverticulitis bleeding: without bleeding Morbid obesity E66.01 Acute on chronic right-sided heart failure I50.813 Heart failure chronicity: acute on chronic Stage 3 chronic kidney disease, unspecified whether stage 3a or 3b CKD N18.30 Chronic kidney disease stage 3 subtype: unspecified whether 3a or 3b Type 2 diabetes mellitus, with long-term current use of insulin E11.9; Z79.4 Diabetes mellitus complication status: without complication HTN (hypertension) I10 (1) Diverticulitis of large intestine with abscess Diverticulitis bleeding: without bleeding Qualified Code(s): K57.20 - Diverticulitis of large intestine with perforation and abscess without bleeding (3) Right heart failure Heart failure chronicity: acute on chronic Qualified Code(s): I50.813 - Acute on chronic right heart failure (4) CKD (chronic kidney disease) stage 3, GFR 30-59 ml/min Chronic kidney disease stage 3 subtype: unspecified whether 3a or 3b Qualified Code(s): N18.30 - Chronic kidney disease, stage 3 unspecified (5) Type 2 diabetes mellitus, with long-term current use of insulin Diabetes mellitus complication status: without complication Qualified Code(s): E11.9 - Type 2 diabetes mellitus without complications; Z79.4 - ocean transportation intermediary (current) use of insulin
--- NOTE | 2025-03-31 14:00 | Hospitalist Progress Note ---
Date of Service March 31, 2025 Assessment & Plan (1) Diverticulitis of large intestine with abscess: (2) Left lower quadrant abdominal pain: Plan: Patient is 55 year old female with PMH insulin-dependent DM II, diabetic neuropathy, CKD III, HTN, HLD, chronic HFpEF, morbid obesity, history necrotizing fasciitis, bilateral lower extremity lymphedema, iron deficiency anemia, chronic metabolic alkalosis and others listed below presented to ER from [facility] for abdominal pain x 5 days. In ER afebrile, P: 83, R: 18, BP 173/68, 98% on chronic 3 L nasal cannula WBC: 17.9, lactate WNL CT Abd/pelvis: Acute diverticulitis of the sigmoid colon with an adjacent 6.8 x 4.3 cm extraluminal collection of fluid and air, concerning for an abscess Acute diverticulitis of the sigmoid colon with abscess(6.8 x 4.3 cm) In ER given Zosyn, morphine 4 mg IV, NSS at 125 mL/hour started N.p.o. Has been on Zosyn, and Daptomycin Pain control with Tylenol, morphine General Surgery consult. -Appreciate input and recommendation. Continuation of conservative management for now She has been feeling a little better but still has significant pain with nausea Her pain medication was increased to morphine 6 mg Q4 hourly as needed and given Phenergan in addition to Zofran to control nausea Will continue with IV fluid and n.p.o. status for now #HTN (hypertension): Hypertensive in ER Did not have home meds today Resume nifedipine, losartan Control pain as above Monitor #CKD III History of progressive CKD Cr: 1.8. Recent baseline 1.5. Monitor renal functions, avoid nephrotoxic agents when possible If worsening consider nephrology consult Creatinine slightly up at 2.06 and will monitor with Will continue intravenous fluid as long as remains n.p.o. #Chronic HFpEF 07/05/2023 echo: EF: 55-60%, grade 1 diastolic dysfunction, right ventricle severely dilated, severe tricuspid regurgitation, PA systolic pressure approximately 50 to mmHg, consistent with moderate pulmonary hypertension Currently appears euvolemic. Is NPO and receiving gentle IVF. Holding home torsemide and metolazone currently. Monitor volume status closely BUN and creatinine are up and he needs more fluid to maintain hydration #Type 2 diabetes mellitus, with long-term current use of insulin: A1c: 6.9 on 01/24/2025 Hold home Trulicity Plan to decrease home insulin while NPO, monitor and may need further adjustment #Chronic iron deficiency anemia: Hgb: 7.9. Baseline low 8's Monitor Continue iron supplement, B12 #Lymphedema of both lower extremities: Currently does not appear cellulitic DVT Prophylaxis SCDs for now Admit telemetry Full Code as per discussion with pt Follows with Dr Gibbs at [facility] for routine care Admission and Anticipated Discharge Date Admission Date: March 30, 2025 Subjective 03/31/2025 The patient was seen and examined in medical telemetry unit She complains of left lower quadrant pain with nausea and vomiting No fever or chills and bowel has not moved yet Her pain is not well-controlled with current medication Review of Systems 2 Review of Systems: All systems reviewed and unremarkable except as noted below Physical Exam Physical Exam: Lying in bed with acute distress due to abdominal pain and nausea Constitutional: well developed, well nourished, + ill appearing and + morbidly obese Eyes: PERRL, conjunctivae normal, anicteric sclerae ENMT: external ear and nose normal, oropharynx normal Neck: trachea midline, no thyromegaly Respiratory: no respiratory distress Auscultation: lungs clear to auscultation bilaterally and + diminished lung sounds Cardiovascular: Rate/Rhythm: regular rate and regular rhythm; not tachycardic Heart Sounds: normal S1 and normal S2; no murmur Extremities: + edema (1+ edema bilaterally with chronic skin changes/lymphedema) Gastrointestinal (Abdomen): Inspection/Auscultation: normal bowel sounds; abdomen not distended Percussion/Palpation: + abdomen tender (Left lower qu adrant with minimal guarding) and abdomen soft Musculoskeletal: No acute arthritis involving any of the joint Neurologic: normal touch/pain/proprioception and moves all extremities; no focal motor deficits Psychiatric: A+Ox3, euthymic affect Lymphatic: no cervical or axillary lymphadenopathy Results & Data Results & Data Vital Signs (Past 12 Hours) Vital Signs Temp Pulse Pulse Pulse Resp BP BP 03/31/25 11:09 37.1 C 73 18 144/78 H 03/31/25 10:25 03/31/25 07:29 37.3 C 70 18 139/74 03/31/25 07:26 73 03/31/25 01:58 36.6 C 72 16 120/74 03/31/25 01:57 72 120/74 Pulse Ox O2 Del Method O2 Flow Rate 03/31/25 11:09 93 Nasal Cannula 1 03/31/25 10:25 Nasal Cannula 1 03/31/25 07:29 97 Nasal Cannula 1 03/31/25 07:26 03/31/25 01:58 100 Nasal Cannula 3 03/31/25 01:57 Laboratory Results Short CBC 03/30/25 03/31/25 Range/Units 14:47 09:37 WBC 17.95 H 18.00 H (4.8-10.8) K/ul Hgb 7.9 L 7.6 L (12.0-16.0) g/dl Hct 25.0 L 24.8 L (37.0-47.0) % Plt Count 186 197 (130-400) K/uL BMP 03/30/25 03/31/25 14:47 09:37 Sodium 138 139 Potassium 4.8 5.1 Chloride 102 102 Carbon Dioxide 31 29 BUN 48 H 50 H Creatinine 1.87 H 2.06 H Glucose 193 H 161 H Calcium 8.5 L 8.4 L Liver Function 03/30/25 Range/Units 14:47 Total Bilirubin 0.5 (0.2-1.0) mg/dl AST 8 L (13-39) U/L ALT 6 L (7-52) U/L Alkaline Phosphatase 79 (34-104) U/L Albumin 2.9 L (3.4-5.0) gm/dl Medications Administered Current Inpatient Medications Cyanocobalamin (Cyanocobalamin (B-12) 500 Mcg Tablet) 1,000 mcg PO DAILY [facility] Stop: 04/30/25 08:59 Last Admin: 03/31/25 08:16 Dose: 1,000 mcg Dextrose (Dextrose 50% 50 Ml Syringe) 25 - 50 ml IV UD PRN; Protocol PRN Reason: Hypoglycemia Protocol Stop: 04/29/25 21:32 Diclofenac Sodium (Diclofenac Sod 1% Gel 100 Gm Tube) 4 gm EXT QID PRN; Protocol PRN Reason: Pain Stop: 04/29/25 21:32 Estradiol (Estradiol 1 Mg Tab) 0.5 mg PO DAILY [facility]UD Stop: 04/30/25 08:59 Last Admin: 03/31/25 08:17 Dose: 0.5 mg Ferrous Sulfate (Ferrous Sulfate 325 Mg Tab) 325 mg PO DAILY [facility] Stop: 04/30/25 08:59 Last Admin: 03/31/25 08:16 Dose: 325 mg Glucagon (Glucagon For Inj 1 Mg Vial) 1 mg SQ UD PRN; Protocol PRN Reason: Hypoglycemia Protocol Stop: 04/29/25 21:32 Glucose (Glucose 40% Gel 15 Gm Tube) 15 - 30 gm PO UD PRN; Protocol PRN Reason: Hypoglycemia Protocol Stop: 04/29/25 21:32 Glucose (Glucose 10 Tab/Tube) 4 - 8 tab PO UD PRN; Protocol PRN Reason: Hypoglycemia Protocol Stop: 04/29/25 21:32 Daptomycin 700 mg/ Syringe 14 mls @ 7 mls/min IV Q24H MOHAMUD; Protocol Stop: 04/09/25 19:29 Last Admin: 03/30/25 19:55 Dose: 7 mls/min Acetaminophen (Ofirmev) 1,000 mg in 100 mls @ 400 mls/hr IV Q8H PRN PRN Reason: Pain or Fever Stop: 03/31/25 21:32 Piperacillin Sod/Tazobactam Sod (Zosyn) 4.5 gm in 100 mls @ 25 mls/hr IV Q8H MOH[facility]UD; Protocol Stop: 04/10/25 00:00 Last Infusion: 03/31/25 12:45 Dose: Infused Pantoprazole Sodium (Protonix) 40 mg in 10 mls @ 5 mls/min IV DAILY [facility] Stop: 04/30/25 08:59 Last Admin: 03/31/25 08:22 Dose: 5 mls/min Promethazine HCl (Phenergan) 12.5 mg in 50.5 mls @ 202 mls/hr IV Q6H PRN PRN Reason: Nausea And Vomiting Stop: 04/30/25 11:17 Insulin Aspart (Insulin Aspart Per Unit Charge) 0 units SC Q6 [facility] Stop: 04/30/25 00:00 Last Admin: 03/31/25 12:52 Dose: 1 units Insulin Glargine (Lantus Per Unit Charge) 8 units SQ BID [facility] Stop: 04/29/25 21:32 Last Admin: 03/31/25 08:45 Dose: 8 units Losartan Potassium (Losartan Potassium 25 Mg Tab) 25 mg PO DAILY [facility] Stop: 04/30/25 08:59 Last Admin: 03/31/25 08:16 Dose: 25 mg Miscellaneous (Carbohydrates For Hypoglycemia ) 15 - 30 gm PO UD PRN PRN Reason: Hypoglycemia Protocol Stop: 04/29/25 21:32 Morphine Sulfate (Morphine Sulfate 4 Mg/Ml 1 Ml Carp\Vial) 6 mg IV Q4H PRN PRN Reason: Mod-Sev Pain (Scale 4-10) Stop: 04/13/25 21:32 Nifedipine (Nifedipine Extended Rel 30 Mg Tabcr) 30 mg PO DAILY [facility] Stop: 04/30/25 08:59 Last Admin: 03/31/25 08:16 Dose: 30 mg Ondansetron HCl (Ondansetron Inj 2 Mg/Ml 2 Ml Vial) 4 mg IV Q6H PRN PRN Reason: Nausea Stop: 04/29/25 21:32 Last Admin: 03/31/25 12:29 Dose: 4 mg Polyethylene Glycol (Polyethylene (Miralax) 17 Gm Pack) 17 gm PO DAILY PRN PRN Reason: Constipation Stop: 04/29/25 21:32 (1) Diverticulitis of large intestine with abscess Diverticulitis bleeding: without bleeding Qualified Code(s): K57.20 - Diverticulitis of large intestine with perforation and abscess without bleeding
[2025-03-31] MEDS: MoRPHine SULFATE 4 MG/ML 1 ML CARP\\VIAL IV PRN (15:15)
[2025-03-31] MEDS: SODIUM CHLORIDE 0.9% 1,000 ML IV SCH (15:16)
--- NOTE | 2025-03-31 21:44 | OB/GYN Consultation ---
Date of Consultation March 31, 2025 Assessment & Plan (1) Left lower quadrant abdominal pain: 55-year-old -0-0-1 postmenopausal female with PMH insulin-dependent DM II, diabetic neuropathy, CKD III, HTN, HLD, chronic HFpEF, morbid obesity, history necrotizing fasciitis, bilateral lower extremity lymphedema, iron deficiency anemia, chronic metabolic alkalosis and others listed below being treated for diverticulitis with IV antibiotics,, History of hysterectomy with right salpingo-oophorectomy, no records for patient left ovary remains, most likely involved in the infection process, would not change the treatment plans, Recommend conservative management with IV antibiotics, ID consultation for best choice of antibiotic Not a good candidate for surgery, Continue to monitor closely (2) Leukocytosis: (3) Diverticulitis of large intestine with abscess: (4) Morbid obesity: (5) Pickwickian syndrome: (6) CKD (chronic kidney disease): (7) History of hysterectomy for benign disease: (8) History of section, low transverse: History of Present Illness Reason for Consultation: Diverticulitis, possible tapering abscess. Attending Physician: Kyle Conley MD History of Present Illness Patient is 55 year old postmenopausal female with PMH insulin-dependent DM II, diabetic neuropathy, CKD III, HTN, HLD, chronic HFpEF, morbid obesity, history necrotizing fasciitis, bilateral lower extremity lymphedema, iron deficiency anemia, chronic metabolic alkalosis and others listed below. Admitted for left lower quadrant pain on March 29 started on IV antibiotics for sigmoid diverticulitis found on CT of abdomen and pelvis no mentioning of pelvic organs on the report. Patient has a history of hysterectomy with right right salpingo-oophorectomy, patient is unsure whether her cervix is removed or not but she remembers left ovary and tube was left so that she would not go through menopause early. She does not remember the date exactly but she states she was in her 30s. It was done for fibroids and heavy menstrual periods. she states her surgeon told her that she will not need Pap smear anymore, this is suggesting that her cervix was also removed. She has not been sexually active for at least 8 years never had abnormal Pap smear or STDs. She states she has not been healthy for SI. She denies vaginal bleeding, spotting, discharge, itching or burning. She has a history of urinary incontinence, has an outside [place] catheter attached to her labia. She states they took urine with catheter and it was very sore and painful she would not tolerate pelvic exam. Allergies Allergy/AdvReac Type Severity Reaction Status Date / Time No Known Allergies Allergy Unknown Verified 04/28/23 19:53 Home Medications Medication Instructions Recorded Confirmed Type aspirin 81 mg tablet,delayed 81 mg PO QAM 03/14/22 03/30/25 History release ferrous sulfate 325 mg (65 mg 325 mg PO DAILY 03/14/22 03/30/25 History iron) tablet cyanocobalamin (vitamin B-12) 1,000 mcg PO DAILY 03/13/23 03/30/25 History 1,000 mcg tablet (Vitamin B-12) pantoprazole 40 mg tablet,delayed 40 mg PO DAILY #30 tabs 07/24/23 03/30/25 Rx release acetaminophen 325 mg tablet 650 mg PO Q6 PRN Fever Or Pain 09/19/23 03/30/25 History ammonium lactate 12 % lotion 1 applic topical BID 09/19/23 03/30/25 History acetaminophen 500 mg tablet 1,000 mg PO Q8 03/30/25 03/30/25 History bisacodyl 10 mg rectal suppository 10 mg WI UD PRN Constipation 03/30/25 03/30/25 History (Dulcolax (bisacodyl)) capsaicin 0.1 % topical cream 1 applic topical Q12 PRN pain 03/30/25 03/30/25 History lower extremities diclofenac sodium 1 % topical gel 4 g topical QID PRN Pain 03/30/25 03/30/25 History dulaglutide 0.75 mg/0.5 mL 0.75 mg subcut WK 03/30/25 03/30/25 History subcutaneous pen injector (Trulicity) ergocalciferol (vitamin D2) 1,250 50,000 unit PO UD 03/30/25 03/30/25 History mcg (50,000 unit) capsule (Vitamin D2) estradiol 0.5 mg tablet 0.5 mg PO DAILY 03/30/25 03/30/25 History insulin aspart U-100 100 unit/mL 12 unit subcut TIDM 03/30/25 03/30/25 History (3 mL) subcutaneous pen insulin glargine 100 unit/mL (3 16 unit subcut BID 03/30/25 03/30/25 History mL) subcutaneous pen (Lantus Solostar U-100 Insulin) losartan 25 mg tablet 25 mg PO DAILY 03/30/25 03/30/25 History metolazone 2.5 mg tablet 2.5 mg PO DAILY 03/30/25 03/30/25 History nifedipine 30 mg tablet,extended 30 mg PO DAILY 03/30/25 03/30/25 History release 24 hr potassium chloride 10 mEq 10 meq PO BID 03/30/25 03/30/25 History tablet,extended release(part/cryst) torsemide 100 mg tablet 100 mg PO BID 03/30/25 03/30/25 History Patient History Medical History Back pain Xerosis cutis Insomnia Hirsutism Fatigue Dysfunctional uterine bleeding History of DVT (deep vein thrombosis) Surgical History History of incision and drainage left foot by Dr. Haq on 10-03-19. H/O tooth extraction History of cholecystectomy History of facial surgery History of nasal polypectomy History of endometrial ablation History of tubal ligation History of hysterectomy History of Family History Father Dyslipidemia Prostate cancer Diabetes Lung cancer Mother Lung cancer Hypothyroidism Brother Coronary heart disease Asthma Grandfather (Maternal) Myocardial infarction Grandmother (Maternal) Myocardial infarction Grandmother (Paternal) Breast cancer Diabetes Social History Smoking Status: Former smoker Tobacco Type: Cigarettes Second Hand Exposure: No; Hx Alcohol Use: No Hx Substance Use: No Preferred Language: Romanian Communication Ability: Effective Frit Mixer Required: No Beliefs That Will Affect Care: None marital status: Single Current Living Situation: Personal Care Facility Current Living Situation Comment: [facility] Feels Safe at Home: Yes Assistive Devices: Oxygen - Continuous, Walker and Wheelchair Physical Exam Constitutional: WD/WN, vitals as above well developed, + morbidly obese, + physical limitations, cooperative and + edematous Gastrointestinal (Abdomen): normal bowel sounds, soft, nontender, no hepatosplenomegaly ( Morbidly obese, left lower quadrant tenderness present) Genitourinary: normal external appearance ( outside catheter on the labia to drain urine) Results & Data Vital Signs (Past 12 Hours) Vital Signs Temp Pulse Pulse Resp BP Pulse Ox O2 Del Method 03/31/25 20:30 Nasal Cannula 03/31/25 19:00 37.5 C 74 16 140/76 95 Nasal Cannula 03/31/25 15:48 74 03/31/25 14:45 37.5 C 74 18 132/70 97 Nasal Cannula 03/31/25 11:09 37.1 C 73 18 144/78 H 93 Nasal Cannula 03/31/25 10:25 Nasal Cannula O2 Flow Rate 03/31/25 20:30 1 03/31/25 19:00 3 03/31/25 15:48 03/31/25 14:45 1 03/31/25 11:09 1 03/31/25 10:25 1 Laboratory Results Lab Results 03/30/25 03/30/25 03/30/25 Range/Units 14:47 15:59 18:26 WBC 17.95 H (4.8-10.8) K/ul RBC 2.77 L (4.20-5.40) M/uL Hgb 7.9 L (12.0-16.0) g/dl Hct 25.0 L (37.0-47.0) % MCV 90.3 (80.0-100.0) fL MCH 28.5 (25.0-34.0) pg MCHC 31.6 L (32.0-36.0) g/dL RDW Std Deviation 45.8 (36.4-46.3) fL RDW Coeff of Mya 13.8 (11.5-14.5) % Plt Count 186 (130-400) K/uL MPV 12.3 (9.4-12.4) fL Immature Gran % (Auto) 1.1 % Neut % (Auto) 84.8 % Lymph % (Auto) 6.6 % [place] % (Auto) 6.5 % Eos % (Auto) 0.7 % Baso % (Auto) 0.3 % Neut # (Auto) 15.23 H (1.40-6.50) K/uL Lymph # (Auto) 1.19 L (1.20-3.40) K/uL [place] # (Auto) 1.16 H (0.11-0.59) K/uL Eos # (Auto) 0.13 (0.00-0.50) K/uL Baso # (Auto) 0.05 (0.00-0.20) K/uL Immature Gran # (Auto) 0.19 (0.01-0.20) K/uL Polychromasia Hypochromasia Present Microcytosis Present Stomatocytes PT 11.9 (9.0-12.0) Seconds INR 1.1 (0.9-1.1) VBG pH 7.33 L (7.36-7.41) VBG pCO2 60 H (38-50) mmHg VBG pO2 42 mmHg VBG HCO3 32 mmol/L VBG O2 Saturation 73.9 % VBG Base Excess 4.0 mEq/L Sodium 138 (136-145) mmol/L Potassium 4.8 (3.5-5.1) mmol/L Chloride 102 (98-107) mmol/L Carbon Dioxide 31 (21-32) mmol/L Anion Gap 5 (3-11) BUN 48 H (6-23) mg/dl Creatinine 1.87 H (0.6-1.2) mg/dl Est Cr Clr Drug Dosing 56.3 ml/min eGFR 31.20 BUN/Creatinine Ratio 25.7 H (10-20) Glucose 193 H (70-99(Fasting)) mg/dl POC Glucose (70-99) mg/dl Lactate 0.8 (0.4-2.0) mmol/L Calcium 8.5 L (8.6-10.3) mg/dl Total Bilirubin 0.5 (0.2-1.0) mg/dl AST 8 L (13-39) U/L ALT 6 L (7-52) U/L Alkaline Phosphatase 79 (34-104) U/L Troponin I High Sens 12.5 (0-14) pg/ml Total Protein 6.5 (6.0-8.3) gm/dl Albumin 2.9 L (3.4-5.0) gm/dl Globulin 3.6 (2.5-4.0) gm/dl Albumin/Globulin Ratio 0.8 L (0.9-2) Lipase 9 L (11-82) U/L Procalcitonin 0.25 (0-0.5) ng/ml Nasal Screen MRSA (PCR) (Negative) 03/30/25 03/31/25 03/31/25 Range/Units 21:09 01:02 06:15 WBC (4.8-10.8) K/ul RBC (4.20-5.40) M/uL Hgb (12.0-16.0) g/dl Hct (37.0-47.0) % MCV (80.0-100.0) fL MCH (25.0-34.0) pg MCHC (32.0-36.0) g/dL RDW Std Deviation (36.4-46.3) fL RDW Coeff of Mya (11.5-14.5) % Plt Count (130-400) K/uL MPV (9.4-12.4) fL Immature Gran % (Auto) % Neut % (Auto) % Lymph % (Auto) % [place] % (Auto) % Eos % (Auto) % Baso % (Auto) % Neut # (Auto) (1.40-6.50) K/uL Lymph # (Auto) (1.20-3.40) K/uL [place] # (Auto) (0.11-0.59) K/uL Eos # (Auto) (0.00-0.50) K/uL Baso # (Auto) (0.00-0.20) K/uL Immature Gran # (Auto) (0.01-0.20) K/uL Polychromasia Hypochromasia Microcytosis Stomatocytes PT (9.0-12.0) Seconds INR (0.9-1.1) VBG pH (7.36-7.41) VBG pCO2 (38-50) mmHg VBG pO2 mmHg VBG HCO3 mmol/L VBG O2 Saturation % VBG Base Excess mEq/L Sodium (136-145) mmol/L Potassium (3.5-5.1) mmol/L Chloride (98-107) mmol/L Carbon Dioxide (21-32) mmol/L Anion Gap (3-11) BUN (6-23) mg/dl Creatinine (0.6-1.2) mg/dl Est Cr Clr Drug Dosing ml/min eGFR BUN/Creatinine Ratio (10-20) Glucose (70-99(Fasting)) mg/dl POC Glucose 185 H 161 H (70-99) mg/dl Lactate (0.4-2.0) mmol/L Calcium (8.6-10.3) mg/dl Total Bilirubin (0.2-1.0) mg/dl AST (13-39) U/L ALT (7-52) U/L Alkaline Phosphatase (34-104) U/L Troponin I High Sens (0-14) pg/ml Total Protein (6.0-8.3) gm/dl Albumin (3.4-5.0) gm/dl Globulin (2.5-4.0) gm/dl Albumin/Globulin Ratio (0.9-2) Lipase (11-82) U/L Procalcitonin (0-0.5) ng/ml Nasal Screen MRSA (PCR) Positive A (Negative) 03/31/25 03/31/25 03/31/25 Range/Units 09:37 11:50 17:10 WBC 18.00 H (4.8-10.8) K/ul RBC 2.74 L (4.20-5.40) M/uL Hgb 7.6 L (12.0-16.0) g/dl Hct 24.8 L (37.0-47.0) % MCV 90.5 (80.0-100.0) fL MCH 27.7 (25.0-34.0) pg MCHC 30.6 L (32.0-36.0) g/dL RDW Std Deviation 46.6 H (36.4-46.3) fL RDW Coeff of Mya 14.2 (11.5-14.5) % Plt Count 197 (130-400) K/uL MPV 12.1 (9.4-12.4) fL Immature Gran % (Auto) 1.2 % Neut % (Auto) 86.8 % Lymph % (Auto) 4.9 % [place] % (Auto) 6.4 % Eos % (Auto) 0.4 % Baso % (Auto) 0.3 % Neut # (Auto) 15.63 H (1.40-6.50) K/uL Lymph # (Auto) 0.88 L (1.20-3.40) K/uL [place] # (Auto) 1.15 H (0.11-0.59) K/uL Eos # (Auto) 0.08 (0.00-0.50) K/uL Baso # (Auto) 0.05 (0.00-0.20) K/uL Immature Gran # (Auto) 0.21 H (0.01-0.20) K/uL Polychromasia 1+ Hypochromasia Microcytosis Stomatocytes 1+ PT (9.0-12.0) Seconds INR (0.9-1.1) VBG pH (7.36-7.41) VBG pCO2 (38-50) mmHg VBG pO2 mmHg VBG HCO3 mmol/L VBG O2 Saturation % VBG Base Excess mEq/L Sodium 139 (136-145) mmol/L Potassium 5.1 (3.5-5.1) mmol/L Chloride 102 (98-107) mmol/L Carbon Dioxide 29 (21-32) mmol/L Anion Gap 8 (3-11) BUN 50 H (6-23) mg/dl Creatinine 2.06 H (0.6-1.2) mg/dl Est Cr Clr Drug Dosing 50.9 ml/min eGFR 27.78 BUN/Creatinine Ratio 24.3 H (10-20) Glucose 161 H (70-99(Fasting)) mg/dl POC Glucose 166 H 158 H (70-99) mg/dl Lactate (0.4-2.0) mmol/L Calcium 8.4 L (8.6-10.3) mg/dl Total Bilirubin (0.2-1.0) mg/dl AST (13-39) U/L ALT (7-52) U/L Alkaline Phosphatase (34-104) U/L Troponin I High Sens (0-14) pg/ml Total Protein (6.0-8.3) gm/dl Albumin (3.4-5.0) gm/dl Globulin (2.5-4.0) gm/dl Albumin/Globulin Ratio (0.9-2) Lipase (11-82) U/L Procalcitonin (0-0.5) ng/ml Nasal Screen MRSA (PCR) (Negative) 03/31/25 Range/Units 21:07 WBC (4.8-10.8) K/ul RBC (4.20-5.40) M/uL Hgb (12.0-16.0) g/dl Hct (37.0-47.0) % MCV (80.0-100.0) fL MCH (25.0-34.0) pg MCHC (32.0-36.0) g/dL RDW Std Deviation (36.4-46.3) fL RDW Coeff of Mya (11.5-14.5) % Plt Count (130-400) K/uL MPV (9.4-12.4) fL Immature Gran % (Auto) % Neut % (Auto) % Lymph % (Auto) % [place] % (Auto) % Eos % (Auto) % Baso % (Auto) % Neut # (Auto) (1.40-6.50) K/uL Lymph # (Auto) (1.20-3.40) K/uL [place] # (Auto) (0.11-0.59) K/uL Eos # (Auto) (0.00-0.50) K/uL Baso # (Auto) (0.00-0.20) K/uL Immature Gran # (Auto) (0.01-0.20) K/uL Polychromasia Hypochromasia Microcytosis Stomatocytes PT (9.0-12.0) Seconds INR (0.9-1.1) VBG pH (7.36-7.41) VBG pCO2 (38-50) mmHg VBG pO2 mmHg VBG HCO3 mmol/L VBG O2 Saturation % VBG Base Excess mEq/L Sodium (136-145) mmol/L Potassium (3.5-5.1) mmol/L Chloride (98-107) mmol/L Carbon Dioxide (21-32) mmol/L Anion Gap (3-11) BUN (6-23) mg/dl Creatinine (0.6-1.2) mg/dl Est Cr Clr Drug Dosing ml/min eGFR BUN/Creatinine Ratio (10-20) Glucose (70-99(Fasting)) mg/dl POC Glucose 167 H (70-99) mg/dl Lactate (0.4-2.0) mmol/L Calcium (8.6-10.3) mg/dl Total Bilirubin (0.2-1.0) mg/dl AST (13-39) U/L ALT (7-52) U/L Alkaline Phosphatase (34-104) U/L Troponin I High Sens (0-14) pg/ml Total Protein (6.0-8.3) gm/dl Albumin (3.4-5.0) gm/dl Globulin (2.5-4.0) gm/dl Albumin/Globulin Ratio (0.9-2) Lipase (11-82) U/L Procalcitonin (0-0.5) ng/ml Nasal Screen MRSA (PCR) (Negative) (2) Leukocytosis Leukocytosis type: unspecified Qualified Code(s): D72.829 - Elevated white blood cell count, unspecified (3) Diverticulitis of large intestine with abscess Diverticulitis bleeding: without bleeding Qualified Code(s): K57.20 - Diverticulitis of large intestine with perforation and abscess without bleeding (6) CKD (chronic kidney disease) Chronic kidney disease stage 3 subtype: unspecified whether 3a or 3b
[2025-04-01] MEDS: ACETAMINOPHEN 325 MG TAB PO PRN (00:06)
[2025-04-01 00:50] LABS: Appearance Urine Cloudy (Clear); Glucose Urine UA Negative (Negative)
[2025-04-01] MEDS: INSULIN ASPART PER UNIT CHARGE SC SCH (05:40)
[2025-04-01 07:53] LABS: Hematocrit (blood only) 24.5 % (37.0-47.0); Hemoglobin 7.3 g/dl (12.0-16.0); Immature Granulocytes # (auto) 0.24 K/uL (0.01-0.20); Immature Granulocytes % (auto) 1.1 %; Mean Corpuscular Hemoglobin 27.3 pg (25.0-34.0); Mean Corpuscular Volume 91.8 fL (80.0-100.0); Platelet Count 211 K/uL (130-400); RDW Standard Deviation 47.6 fL (36.4-46.3); Red Blood Count 2.67 M/uL (4.20-5.40); White Blood Count 21.44 K/ul (4.8-10.8)
[2025-04-01] MEDS ORDERED: Nursing to Pharmacy Communication SCH (08:00)
[2025-04-01] MEDS ORDERED: LANTUS PER UNIT CHARGE SQ SCH (08:00)
[2025-04-01 08:25] LABS: Polychromasia 1+
[2025-04-01 08:43] LABS: Anion Gap 7.0 (3-11); Blood Urea Nitrogen 56.0 mg/dl (6-23); Calcium 8.2 mg/dl (8.6-10.3); Carbon Dioxide 29.0 mmol/L (21-32); Chloride 100.0 mmol/L (98-107); Creatinine Clr Calc Pharmacy 33.9 ml/min; Glucose 142.0 mg/dl (70-99(Fasting)); Magnesium 1.9 mg/dl (1.7-2.4); Potassium 5.1 mmol/L (3.5-5.1); Sodium 136.0 mmol/L (136-145)
[2025-04-01] MEDS: LANTUS PER UNIT CHARGE SQ SCH (09:03)
--- NOTE | 2025-04-01 11:49 | Surgery Progress Note ---
Date of Service April 01, 2025 Assessment & Plan (1) Diverticulitis of large intestine with abscess: Plan: Patient here with diverticulitis with associated phlegmon vs tubo-ovarian abscess -Did discuss case with IR and not amendable to drainage at this time -ASSEMBLER ADJUSTER also evaluated the patient and believe collection is most likely involved in the infection process -Patient may need repeat imaging (consider repeat imaging next week), would recommend oral and IV contrast for imaging. -Currently will continue to treat conservatively, no surgical intervention at this time. -Continue IV abx and monitor WBC -Will advance to clear liquids today to see how she does -Medical management per primary team, surgery will continue to follow (2) Morbid obesity: (3) Right heart failure: (4) CKD (chronic kidney disease) stage 3, GFR 30-59 ml/min: (5) Type 2 diabetes mellitus, with long-term current use of insulin: (6) HTN (hypertension): Admission and Anticipated Discharge Date Admission Date: March 30, 2025 Supervising Physician Co-Signing Physician Notes Patient seen and examined, labs reviewed, agree with above. Admitted with diverticulitis and abscess versus infected ovary. Clinically feeling better, passing flatus, pain improved. On exam she is currently afebrile with stable vitals. Her abdomen is soft, tender to palpation in the left lower quadrant but improved from yesterday. WBC 21 up from 18. Gynecology recommend continued antibiotics. Interventional radiology not recommending drainage or aspiration at this time. Plan to continue IV antibiotics, will start clear liquids. Likely needs repeat imaging sometime next week. Subjective Patient seen and evaluated this morning, states she is feeling better than yesterday Denies any worsening abdominal pain, N/V Passing gas however no BM Afebrile, WBC however is elevated today at 21.4 from 18, continues on IV abx Physical Exam Constitutional: WD/WN, vitals as above Respiratory: normal respiratory effort, lungs clear to auscultation Cardiovascular: Rate/Rhythm: regular rate Gastrointestinal (Abdomen): Abdomen soft, nondistended, +TTP in the LLQ without rebound or guarding Skin: no rashes, warm and dry Results & Data Vital Signs (Past 12 Hours) Vital Signs Temp Pulse Pulse Resp BP Pulse Ox O2 Del Method 04/01/25 11:32 36.6 C 69 18 145/67 H 93 Nasal Cannula 04/01/25 09:34 Nasal Cannula 04/01/25 07:42 79 94 Nasal Cannula 04/01/25 07:35 36.9 C 72 20 135/71 96 Room Air 04/01/25 07:07 67 04/01/25 03:42 36.7 C 70 14 133/65 95 Nasal Cannula O2 Flow Rate 04/01/25 11:32 1 04/01/25 09:34 1 04/01/25 07:42 1 04/01/25 07:35 04/01/25 07:07 04/01/25 03:42 2 PG Care Time/CCT Total # of Minutes Spent Total Time Spent with Patient: Total time spent is greater than 50% in coordination of care (as documented) at patient's floor/unit and/or counseling patient: [place] [address] SUB INP/OBS CARE 09/11MIN Patient Type Established Medical Decision Making Straight Forward Diagnoses Diverticulitis of large intestine with abscess K57.20 Diverticulitis bleeding: without bleeding Morbid obesity E66.01 Acute on chronic right-sided heart failure I50.813 Heart failure chronicity: acute on chronic Stage 3 chronic kidney disease, unspecified whether stage 3a or 3b CKD N18.30 Chronic kidney disease stage 3 subtype: unspecified whether 3a or 3b Type 2 diabetes mellitus, with long-term current use of insulin E11.9; Z79.4 Diabetes mellitus complication status: without complication HTN (hypertension) I10 (1) Diverticulitis of large intestine with abscess Diverticulitis bleeding: without bleeding Qualified Code(s): K57.20 - Diverticulitis of large intestine with perforation and abscess without bleeding (3) Right heart failure Heart failure chronicity: acute on chronic Qualified Code(s): I50.813 - Acute on chronic right heart failure (4) CKD (chronic kidney disease) stage 3, GFR 30-59 ml/min Chronic kidney disease stage 3 subtype: unspecified whether 3a or 3b Qualified Code(s): N18.30 - Chronic kidney disease, stage 3 unspecified (5) Type 2 diabetes mellitus, with long-term current use of insulin Diabetes mellitus complication status: without complication Qualified Code(s): E11.9 - Type 2 diabetes mellitus without complications; Z79.4 - rat exterminator (current) use of insulin
[2025-04-01] MEDS: SODIUM CHLORIDE 0.9% 1,000 ML IV SCH (15:20)
--- NOTE | 2025-04-01 15:52 | Hospitalist Progress Note ---
Date of Service April 01, 2025 Assessment & Plan (1) Diverticulitis of large intestine with abscess: (2) Left lower quadrant abdominal pain: Plan: Patient is 55 year old female with PMH insulin-dependent DM II, diabetic neuropathy, CKD III, HTN, HLD, chronic HFpEF, morbid obesity, history necrotizing fasciitis, bilateral lower extremity lymphedema, iron deficiency anemia, chronic metabolic alkalosis and others listed below presented to ER from [facility] for abdominal pain x 5 days. In ER afebrile, P: 83, R: 18, BP 173/68, 98% on chronic 3 L nasal cannula WBC: 17.9, lactate WNL CT Abd/pelvis: Acute diverticulitis of the sigmoid colon with an adjacent 6.8 x 4.3 cm extraluminal collection of fluid and air, concerning for an abscess Acute diverticulitis of the sigmoid colon with abscess(6.8 x 4.3 cm) In ER given Zosyn, morphine 4 mg IV, NSS at 125 mL/hour started N.p.o. Has been on Zosyn, and Daptomycin Pain control with Tylenol, morphine General Surgery consult. -Appreciate input and recommendation. Continuation of conservative management for now She has been feeling a little better but still has significant pain with nausea Her pain medication was increased to morphine 6 mg Q4 hourly as needed and given Phenergan in addition to Zofran to control nausea Will continue with IV fluid and n.p.o. status for now Clinically not any better, remains afebrile White count is elevated and no evidence of significant worsening of abdominal findings Will get ID consultation and continue current dose of Zosyn adjusted with her weight and kidney function DAHLIA on CKD #CKD III History of progressive CKD Cr: 1.8. Recent baseline 1.5. Monitor renal functions, avoid nephrotoxic agents when possible If worsening consider nephrology consult Creatinine slightly up at 2.06 and will monitor with Will continue intravenous fluid as long as remains n.p.o. Seems to be positive balance of 2813 mL but urine output is low and creatinine has gone up to more than 3 Will restart intravenous fluid and ask for nephrology consult #HTN (hypertension): Hypertensive in ER Did not have home meds today Resume nifedipine, losartan Control pain as above Monitor #Chronic HFpEF 07/05/2023 echo: EF: 55-60%, grade 1 diastolic dysfunction, right ventricle severely dilated, severe tricuspid regurgitation, PA systolic pressure approximately 50 to mmHg, consistent with moderate pulmonary hypertension Currently appears euvolemic. Is NPO and receiving gentle IVF. Holding home torsemide and metolazone currently. Monitor volume status closely BUN and creatinine are up and he needs more fluid to maintain hydration Fluid as above Monitor for fluid overload #Type 2 diabetes mellitus, with long-term current use of insulin: A1c: 6.9 on 01/24/2025 Hold home Trulicity Plan to decrease home insulin while NPO, monitor and may need further adjustment #Chronic iron deficiency anemia: Hgb: 7.9. Baseline low 8's Monitor Continue iron supplement, B12 #Lymphedema of both lower extremities: Currently does not appear cellulitic History of hysterectomy with right salpingo-oophorectomy Appreciate DEEP FAT FRY COOK input for left lower quadrant pain Recommended to continue current management DVT Prophylaxis SCDs for now Admit telemetry Full Code as per discussion with pt Follows with Dr Gibbs at [facility] for routine care Admission and Anticipated Discharge Date Admission Date: March 30, 2025 Subjective 03/31/2025 The patient was seen and examined in medical telemetry unit She complains of left lower quadrant pain with nausea and vomiting No fever or chills and bowel has not moved yet Her pain is not well-controlled with current medication 04/01/2025 The patient was seen and examined in medical telemetry unit She has been feeling a little worse today with increasing pain in the left lower quadrant but no fever and no chills She has some nausea but no vomiting Review of Systems Review of Systems: All systems reviewed and unremarkable except as noted below Physical Exam Physical Exam: Lying in bed with acute distress due to abdominal pain and nausea Constitutional: well developed, well nourished, + ill appearing and + morbidly obese Eyes: PERRL, conjunctivae normal, anicteric sclerae ENMT: external ear and nose normal, oropharynx normal Neck: trachea midline, no thyromegaly Respiratory: no respiratory distress Auscultation: lungs clear to auscultation bilaterally and + diminished lung sounds Cardiovascular: Rate/Rhythm: regular rate and regular rhythm; not tachycardic Heart Sounds: normal S1 and normal S2; no murmur Extremities: + edema (1+ edema bilaterally with chronic skin changes/lymphedema) Gastrointestinal (Abdomen): Inspection/Auscultation: normal bowel sounds; abdomen not distended Percussion/Palpation: + abdomen tender (Left lower quadrant with minimal guarding) and abdomen soft Musculoskeletal: No acute arthritis involving any of the joint Neurologic: normal touch/pain/proprioception and moves all extremities; no focal motor deficits Psychiatric: A+Ox3, euthymic affect Lymphatic: no cervical or axillary lymphadenopathy Results & Data Results & Data Vital Signs (Past 12 Hours) Vital Signs Temp Pulse Pulse Resp BP Pulse Ox O2 Del Method 04/01/25 15:03 37.6 C H 67 18 132/62 97 Nasal Cannula 04/01/25 13:50 70 04/01/25 11:32 36.6 C 69 18 145/67 H 93 Nasal Cannula 04/01/25 09:34 Nasal Cannula 04/01/25 07:42 79 94 Nasal Cannula 04/01/25 07:35 36.9 C 72 20 135/71 96 Room Air 04/01/25 07:07 67 O2 Flow Rate 04/01/25 15:03 1 04/01/25 13:50 04/01/25 11:32 1 04/01/25 09:34 1 04/01/25 07:42 1 04/01/25 07:35 04/01/25 07:07 Laboratory Results Short CBC 04/01/25 Range/Units 07:28 WBC 21.44 H (4.8-10.8) K/ul Hgb 7.3 L (12.0-16.0) g/dl Hct 24.5 L (37.0-47.0) % Plt Count 211 (130-400) K/uL BMP 04/01/25 07:28 Sodium 136 Potassium 5.1 Chloride 100 Carbon Dioxide 29 BUN 56 H Creatinine 3.10 H D Glucose 142 H Calcium 8.2 L Urine 04/01/25 Range/Units 00:27 Urine Color Yellow Urine Appearance Cloudy A (Clear) Urine pH 6.0 (4.5-7.5) Ur Specific [place] 1.025 (1.000-1.030) Urine Protein 3+ H (Negative) Urine Glucose (UA) Negative (Negative) Medications Administered Current Inpatient Medications Acetaminophen (Acetaminophen 325 Mg Tab) 650 mg PO QID PRN PRN Reason: pain/fever Stop: 04/30/25 23:18 Last Admin: 04/01/25 09:07 Dose: 650 mg Cyanocobalamin (Cyanocobalamin (B-12) 500 Mcg Tablet) 1,000 mcg PO DAILY MOHAMUD Stop: 04/30/25 08:59 Last Admin: 04/01/25 07:50 Dose: 1,000 mcg Dextrose (Dextrose 50% 50 Ml Syringe) 25 - 50 ml IV UD PRN; Protocol PRN Reason: Hypoglycemia Protocol Stop: 04/29/25 21:32 Diclofenac Sodium (Diclofenac Sod 1% Gel 100 Gm Tube) 4 gm EXT QID PRN; Protocol PRN Reason: Pain Stop: 04/29/25 21:32 Estradiol (Estradiol 1 Mg Tab) 0.5 mg PO DAILY MOHAMUD Stop: 04/30/25 08:59 Last Admin: 04/01/25 08:42 Dose: 0.5 mg Ferrous Sulfate (Ferrous Sulfate 325 Mg Tab) 325 mg PO DAILY MOHAMUD Stop: 04/30/25 08:59 Last Admin: 04/01/25 07:50 Dose: 325 mg Glucagon (Glucagon For Inj 1 Mg Vial) 1 mg SQ UD PRN; Protocol PRN Reason: Hypoglycemia Protocol Stop: 04/29/25 21:32 Glucose (Glucose 40% Gel 15 Gm Tube) 15 - 30 gm PO UD PRN; Protocol PRN Reason: Hypoglycemia Protocol Stop: 04/29/25 21:32 Glucose (Glucose 10 Tab/Tube) 4 - 8 tab PO UD PRN; Protocol PRN Reason: Hypoglycemia Protocol Stop: 04/29/25 21:32 Daptomycin 700 mg/ Syringe 14 mls @ 7 mls/min IV Q24H MOHAMUD; Protocol Stop: 04/09/25 19:29 Last Admin: 03/31/25 20:58 Dose: 7 mls/min Piperacillin Sod/Tazobactam Sod (Zosyn) 4.5 gm in 100 mls @ 25 mls/hr IV Q8H MOHAMUD; Protocol Stop: 04/10/25 00:00 Last Admin: 04/01/25 15:20 Dose: 25 mls/hr Pantoprazole Sodium (Protonix) 40 mg in 10 mls @ 5 mls/min IV DAILY MOHAMUD Stop: 04/30/25 08:59 Last Admin: 04/01/25 08:09 Dose: 5 mls/min Promethazine HCl (Phenergan) 12.5 mg in 50.5 mls @ 202 mls/hr IV Q6H PRN PRN Reason: Nausea And Vomiting Stop: 04/30/25 11:17 Sodium Chloride (Nss) 1,000 mls @ 80 mls/hr IV .[id number] [facility] Stop: 04/03/25 03:59 Last Admin: 04/01/25 15:20 Dose: 80 mls/hr Insulin Aspart (Insulin Aspart Per Unit Charge) 0 units SC ACHS [facility] Stop: 05/01/25 05:29 Last Admin: 04/01/25 12:05 Dose: 1 units Insulin Glargine (Lantus Per Unit Charge) 5 units SQ BID [facility] Stop: 05/01/25 08:59 Last Admin: 04/01/25 09:03 Dose: 5 units Losartan Potassium (Losartan Potassium 25 Mg Tab) 25 mg PO DAILY [facility] Stop: 04/30/25 08:59 Last Admin: 04/01/25 07:50 Dose: 25 mg Miscellaneous (Carbohydrates For Hypoglycemia ) 15 - 30 gm PO UD PRN PRN Reason: Hypoglycemia Protocol Stop: 04/29/25 21:32 Morphine Sulfate (Morphine Sulfate 4 Mg/Ml 1 Ml Carp\Vial) 6 mg IV Q4H PRN PRN Reason: Mod-Sev Pain (Scale 4-10) Stop: 04/13/25 21:32 Last Admin: 04/01/25 02:53 Dose: 6 mg Nifedipine (Nifedipine Extended Rel 30 Mg Tabcr) 30 mg PO DAILY [facility] Stop: 04/30/25 08:59 Last Admin: 04/01/25 07:50 Dose: 30 mg Ondansetron HCl (Ondansetron Inj 2 Mg/Ml 2 Ml Vial) 4 mg IV Q6H PRN PRN Reason: Nausea Stop: 04/29/25 21:32 Last Admin: 03/31/25 12:29 Dose: 4 mg Polyethylene Glycol (Polyethylene (Miralax) 17 Gm Pack) 17 gm PO DAILY PRN PRN Reason: Constipation Stop: 04/29/25 21:32 (1) Diverticulitis of large intestine with abscess Diverticulitis bleeding: without bleeding Qualified Code(s): K57.20 - Diverticulitis of large intestine with perforation and abscess without bleeding
--- NOTE | 2025-04-01 17:58 | Nephrology Consultation ---
Date of Consultation April 01, 2025 Assessment & Plan (1) Acute kidney injury superimposed on stage 3b chronic kidney disease: Stage 2 DAHLIA on CKD 3B w/ nephrotic range proteinuria historically, baseline creatinine 1.5. Rapidly worsening creatinine currently w/ broad differential -may relate to active infection/abtx >stopped losartan (3 doses in NPO pt could affect renal function, though would expect better tolerance given that she's off torsemide/metolazone) -check CK, lactate w/ am labs -daily BMP -continue nephrotoxin avoidance >>will get CXR now and based on that she may actually need IV diuresis >> will need very aggressive IV diuretic doses if we do this given renal function currently and customary OP diuretic doses >> 10-12 bumex mg IV total daily and metolazone For now, CXR and reevaluate status in AM (2) Diverticulitis of large intestine with abscess: -cont zosyn -f/u ID recs (3) Pickwickian syndrome: not adherent w/ cpap/bipap progressive anemia can make breathing worse and complicate volume status, [place] if pRBC needed -see above re CXR, ? diuretics History of Present Illness Reason for Consultation: DAHLIA Requesting Physician: Dr Conley Attending Physician: Kyle Conley MD History of Present Illness 55 y/o F whom I'm asked to see for DAHLIA was admitted late afternoon on 03/30 after presenting with large intestine abscess and diverticulitis in the setting of 5 days burning LLQ abd pain. PMH includes DM II on insulin, CKD 3B baseline creatinine about 1.5 and h/o 6 gm proteinuria 09/2023, HTN, HFpEF/ chronic R HF, morbid obesity, obesity hypoventilation syndrome/YVROSE not on cpap/bipap, history of necrotizing fasciitis, severe bilateral lower extremity lymphedema w/ chronic L heel ulcer, h/o hypercapneic respiratory failure and chronic metabolic acidosis. Renal function was at baseline 1.5 two days before admission but creatinine already 1.9 on presentation; has uptrended to 2.1 yesterday and 3.1 today. WBC were 18K on presentation and [address] imaging revealed a 6.8 cm abscess adjacent to area of acute proximal sigmoid diverticulitis: ddx diverticulitis w/ associated phlegmon versus tuboovarian abscess w/ possible fistulization. Gen surgery and [employer] [facility] are following closely > recommending conservative management for now with abtx; poor surgical candidate who would likely need tertiary care if surgery pursued. Inf dzs c/s pending. Blood cxs NGTD. No IV contrast exposure, some SBP 160-170s on admission, no F; she has had 2.1 L NS since admission and is receiving coverage w/ zosyn. was NPO until she started clears today. She did receive customary OP losartan 25 mg x 3 doses since admission. Torsemide has been held since admission. last bm was one week ago; not diarrhea. no n/v. abd pain LLQ is persistent. pt notes progressive dyspnea and edema and decreased UOP. no rash. no cough. Allergies Allergy/AdvReac Type Severity Reaction Status Date / Time No Known Allergies Allergy Unknown Verified 04/28/23 19:53 Home Medications Medication Instructions Recorded Confirmed Type aspirin 81 mg tablet,delayed 81 mg PO QAM 03/14/22 03/30/25 History release ferrous sulfate 325 mg (65 mg 325 mg PO DAILY 03/14/22 03/30/25 History iron) tablet cyanocobalamin (vitamin B-12) 1,000 mcg PO DAILY 03/13/23 03/30/25 History 1,000 mcg tablet (Vitamin B-12) pantoprazole 40 mg tablet,delayed 40 mg PO DAILY #30 tabs 07/24/23 03/30/25 Rx release acetaminophen 325 mg tablet 650 mg PO Q6 PRN Fever Or Pain 09/19/23 03/30/25 History ammonium lactate 12 % lotion 1 applic topical BID 09/19/23 03/30/25 History acetaminophen 500 mg tablet 1,000 mg PO Q8 03/30/25 03/30/25 History bisacodyl 10 mg rectal suppository 10 mg SC UD PRN Constipation 03/30/25 03/30/25 History (Dulcolax (bisacodyl)) capsaicin 0.1 % topical cream 1 applic topical Q12 PRN pain 03/30/25 03/30/25 History lower extremities diclofenac sodium 1 % topical gel 4 g topical QID PRN Pain 03/30/25 03/30/25 History dulaglutide 0.75 mg/0.5 mL 0.75 mg subcut WK 03/30/25 03/30/25 History subcutaneous pen injector (Trulicity) ergocalciferol (vitamin D2) 1,250 50,000 unit PO UD 03/30/25 03/30/25 History mcg (50,000 unit) capsule (Vitamin D2) estradiol 0.5 mg tablet 0.5 mg PO DAILY 03/30/25 03/30/25 History insulin aspart U-100 100 unit/mL 12 unit subcut TIDM 03/30/25 03/30/25 History (3 mL) subcutaneous pen insulin glargine 100 unit/mL (3 16 unit subcut BID 03/30/25 03/30/25 History mL) subcutaneous pen (Lantus Solostar U-100 Insulin) losartan 25 mg tablet 25 mg PO DAILY 03/30/25 03/30/25 History metolazone 2.5 mg tablet 2.5 mg PO DAILY 03/30/25 03/30/25 History nifedipine 30 mg tablet,extended 30 mg PO DAILY 03/30/25 03/30/25 History release 24 hr potassium chloride 10 mEq 10 meq PO BID 03/30/25 03/30/25 History tablet,extended release(part/cryst) torsemide 100 mg tablet 100 mg PO BID 03/30/25 03/30/25 History Patient History Medical History Back pain Xerosis cutis Insomnia Hirsutism Fatigue Dysfunctional uterine bleeding History of DVT (deep vein thrombosis) Surgical History History of incision and drainage left foot by Dr. Haq on 10-03-19. H/O tooth extraction History of cholecystectomy History of facial surgery History of nasal polypectomy History of endometrial ablation History of tubal ligation History of hysterectomy History of Family History Father Dyslipidemia Prostate cancer Diabetes Lung cancer Mother Lung cancer Hypothyroidism Brother Coronary heart disease Asthma Grandfather (Maternal) Myocardial infarction Grandmother (Maternal) Myocardial infarction Grandmother (Paternal) Breast cancer Diabetes Social History Smoking Status: Former smoker Tobacco Type: Cigarettes Second Hand Exposure: No; Hx Alcohol Use: No Hx Substance Use: No Preferred Language: Tajik Communication Ability: Effective J2Ee Java Developer Required: No Beliefs That Will Affect Care: None marital status: Single Current Living Situation: Personal Care Facility Current Living Situation Comment: [place] Feels Safe at Home: Yes Assistive Devices: Oxygen - Continuous, Walker and Wheelchair Review of Systems 2 Review of Systems: All systems reviewed & are unremarkable except as noted in HPI & below Physical Exam 2 Constitutional: well developed and well nourished Eyes: EOM intact bilaterally ENMT: Mouth: + dry oral mucous membranes Respiratory: normal respiratory effort and + tachypneic; no respiratory distress and no cough Auscultation: + diminished lung sounds Cardiovascular: Rate/Rhythm: regular rate (distant) and regular rhythm E xtremities: + edema (1++ worse distally) Gastrointestinal (Abdomen): Inspection/Auscultation: normal bowel sounds P ercussion/Palpation: abdomen soft Musculoskeletal: Extremities: strength 5/5 throughout Skin: no rashes, warm and dry Neurologic: jean baptiste, fluent speech, no tremor Psychiatric: Orientation: alert and oriented x 3 Results & Data Vital Signs (Past 12 Hours) Vital Signs Temp Pulse Pulse Resp BP Pulse Ox O2 Del Method 04/01/25 15:03 37.6 C H 67 18 132/62 97 Nasal Cannula 04/01/25 13:50 70 04/01/25 11:32 36.6 C 69 18 145/67 H 93 Nasal Cannula 04/01/25 09:34 Nasal Cannula 04/01/25 07:42 79 94 Nasal Cannula 04/01/25 07:35 36.9 C 72 20 135/71 96 Room Air 04/01/25 07:07 67 O2 Flow Rate 04/01/25 15:03 1 04/01/25 13:50 04/01/25 11:32 1 04/01/25 09:34 1 04/01/25 07:42 1 04/01/25 07:35 04/01/25 07:07 Laboratory Results 04/01/25 07:28 04/01/25 07:28 UA yellow cloudy 1025, 3+ protein, 2+ blood 1+ bilirubin, 1+ LE, no microscopy Diagnostic Findings CT a/p non con admissoin The liver is overall of normal size, attenuation, and contour with no sign of cirrhosis or significant fatty infiltration. No definite liver mass lesion is seen on this noncontrast study. The gallbladder has been removed. No bile duct dilatation is noted. The spleen is of normal size. No focal splenic lesion is evident. The pancreas appears normal with no sign of acute or chronic pancreatitis and no mass lesion noted. The pancreatic duct is of normal caliber. The adrenal glands appear unremarkable. No renal or proximal ureteral calculi are seen. There is no hydronephrosis or perinephric stranding. No definite renal mass lesion is identified. The aorta is of normal caliber. No abdominal adenopathy is seen. The stomach appears normal. There is no sign of small bowel obstruction. There is acute diverticulitis of the proximal sigmoid colon, with an adjacent 6.8 x 4.3 cm complex collection of fluid and air, concerning for an abscess No distal ureteral or bladder calculi are seen. No obvious bladder mass lesion is evident. The iliac arteries are of normal caliber. There are small and mildly enlarged inguinal lymph nodes bilaterally. There is mild bilateral lung base atelectasis. Mild thoracolumbar degenerative disc disease is seen. No fracture is identified. No focal osseous lesion is seen Impression: Acute diverticulitis of the sigmoid colon with an adjacent 6.8 x 4.3 cm extraluminal collection of fluid and air, concerning for an abscess CXR admission FINDINGS: There is stable cardiomegaly with pulmonary vascular congestion. Inspiration is shallow. Evaluation of the left lung base is limited by the overlying cardiac silhouette. No other consolidation or pleural effusion seen. No pneumothorax. (2) Diverticulitis of large intestine with abscess Diverticulitis bleeding: without bleeding Qualified Code(s): K57.20 - Diverticulitis of large intestine with perforation and abscess without bleeding
--- NOTE | 2025-04-01 19:48 | XRay Report ---
HISTORY: Assess volume status. TECHNIQUE: Portable AP radiograph of the chest. COMPARISON: None. FINDINGS: Cardiomegaly. Underpenetration related to patient body habitus limits evaluation of the lower lungs and costophrenic angles. Mild cardiomegaly. Left lower lung/retrocardiac opacity may represent artifact fromunderpenetration versus airspace opacity in the setting of atelectasis or pneumonia. right lung is clear. No pneumothorax. No definite effusion. No acute osseous abnormality. Included upper abdomen is unremarkable. IMPRESSION: * Evaluation is limited by underpenetration related to patient body habitus. * Cardiomegaly. * Left lung base/retrocardiac opacity may represent artifact from underpenetration versus airspace opacity in the setting of atelectasis or pneumonia. Electronically signed by Paolo Lemon 04-01-2025 7:48 PM
--- NOTE | 2025-04-02 07:43 | Nephrology Progress Note ---
Date of Service April 02, 2025 Assessment & Plan (1) Acute kidney injury superimposed on stage 3b chronic kidney disease: Plan: worsening nonoliguric Stage 2 DAHLIA on CKD 3B w/ nephrotic range proteinuria historically, baseline creatinine 1.5 w/ 6 gm proteinuria. given rate of worsening, anticipate creatinine will worsen further before it begins to improve. 4.0 today (not yet peaked), 1.5 on 03/28 arrival. hgb drifting down to 6.9 today and for pRBC (if similar value on recheck); and WBC cont to climb though rate of increase slowing at 23k. Rapidly worsening creatinine currently w/ broad differential -d/t active infection/abtx versus cardiorenal syndrome in pt dependent on very high dose diuretics routinely; no evidence of severe metabolic acid /base perturbation so far. lactate, CK wnl. >stopped losartan (3 doses in NPO pt could affect renal function, though would expect better tolerance given that she's off torsemide/metolazone) -daily BMP -continue nephrotoxin avoidance agree w/ pRBC >> suggest 4 mg IV bumex after each/any unit of pRBC today; else 3 mg IV bumex if resp distress or altered MS from RHF; pt w/ h/o lasix tolerance; plan tentatively to eval for standin gdiuretics tomorrow >> will need very aggressive IV diuretic doses if we do this given renal function currently and customary OP diuretic doses >> 10-12 bumex mg IV total daily and metolazone; hold metolazone for now -suggest finding alternative to morphine w/ worsening renal failure given her risk for encephalopathy already from hypercapneic resp failure > suggest dilaudid or less preferable oxycodone over morphine Care coordinated w/ Dr Conley regarding pRBC and diuretic dosing, pain meds; we are in agreement (2) Diverticulitis of large intestine with abscess: Plan: -cont zosyn and doxy -f/u ID recs (3) Pickwickian syndrome: Plan: not adherent w/ cpap/bipap progressive anemia can make breathing worse and complicate volume status, [place] if pRBC needed -see above re diuretics Admission and Anticipated Discharge Date Admission Date: March 30, 2025 Subjective hgb dropped today and for pRBC, possibly 2 units. 02 needs up to 3L now; abd pain unchanged as is breathing; pt qutie fatigued today Review of Systems 2 Review of Systems: All systems reviewed & are unremarkable except as noted in Subjective Physical Exam 2 Constitutional: well developed and well nourished Eyes: EOM intact bilaterally ENMT: Mouth: + dry oral mucous membranes Respiratory: normal respiratory effort and + tachypneic; no respiratory distress and no cough Auscultation: + diminished lung sounds Cardiovascular: Rate/Rhythm: regular rate (distant) and regular rhythm E xtremities: + edema (1++ worse distally) Gastrointestinal (Abdomen): Inspection/Auscultation: normal bowel sounds P ercussion/Palpation: + abdomen tender (LLQ) and abdomen soft; no guarding and no fluid wave Musculoskeletal: Extremities: strength 5/5 throughout Skin: no rashes, warm and dry Psychiatric: Orientation: alert and oriented x 3 Results & Data Vital Signs (Past 12 Hours) Vital Signs Temp Pulse Pulse Resp BP Pulse Ox O2 Del Method 04/02/25 07:42 36.6 C 76 18 132/68 97 Nasal Cannula 04/02/25 04:28 36.9 C 63 18 107/53 L 96 Nasal Cannula 04/02/25 00:02 36.3 C L 68 18 116/65 99 Nasal Cannula 04/01/25 21:48 67 04/01/25 20:30 Nasal Cannula 04/01/25 20:20 36.7 C 68 18 117/68 94 Nasal Cannula O2 Flow Rate 04/02/25 07:42 3 04/02/25 04:28 3 04/02/25 00:02 3 04/01/25 21:48 04/01/25 20:30 3 04/01/25 20:20 1 Laboratory Results 04/02/25 07:24 04/02/25 07:23 Diagnostic Findings cxr atelectasis v pna; not optimal imaging (2) Diverticulitis of large intestine with abscess Diverticulitis bleeding: without bleeding Qualified Code(s): K57.20 - Diverticulitis of large intestine with perforation and abscess without bleeding
[2025-04-02 08:13] LABS: Hematocrit (blood only) 22.1 % (37.0-47.0); Hemoglobin 6.9 g/dl (12.0-16.0); Mean Corpuscular Hemoglobin 27.8 pg (25.0-34.0); Mean Corpuscular Volume 89.1 fL (80.0-100.0); Platelet Count 202 K/uL (130-400); RDW Standard Deviation 45.6 fL (36.4-46.3); Red Blood Count 2.48 M/uL (4.20-5.40); White Blood Count 22.82 K/ul (4.8-10.8)
[2025-04-02 08:14] LABS: Immature Granulocytes # (auto) 0.31 K/uL (0.01-0.20); Immature Granulocytes % (auto) 1.4 %; Polychromasia 1+
[2025-04-02] MEDS ORDERED: SODIUM CHLORIDE 0.9% 100 ML IV PRN ×2 (08:30→15:08)
[2025-04-02 09:05] LABS: Alanine Aminotransferase 9.0 U/L (7-52); Albumin Globulin Ratio 0.7 (0.9-2); Alkaline Phosphatase 83.0 U/L (34-104); Anion Gap 12.0 (3-11); Bilirubin,Total 0.8 mg/dl (0.2-1.0); Blood Urea Nitrogen 61.0 mg/dl (6-23); Calcium 8.1 mg/dl (8.6-10.3); Carbon Dioxide 24.0 mmol/L (21-32); Chloride 98.0 mmol/L (98-107); Creatine Kinase 224.0 U/L (26-192); Creatinine Clr Calc Pharmacy 26.9 ml/min; Globulin 3.7 gm/dl (2.5-4.0); Glucose 179.0 mg/dl (70-99(Fasting)); Potassium 5.1 mmol/L (3.5-5.1); Sodium 134.0 mmol/L (136-145); Total Protein 6.4 gm/dl (6.0-8.3)
--- NOTE | 2025-04-02 10:26 | Surgery Progress Note ---
Date of Service April 02, 2025 Assessment & Plan (1) Diverticulitis of large intestine with abscess: Plan: Minimal improvement WBC slightly elevated again today Will repeat CAT scan tomorrow with oral contrast. I suspect she will need IR drainage Patient is an exceedingly high surgical risk and surgery should be only as a last resort (2) CKD (chronic kidney disease): (3) Morbid obesity: Admission and Anticipated Discharge Date Admission Date: March 30, 2025 Subjective Patient seen. States that no pain with resting however she continues to have left lower quadrant pain with movement Physical Exam Constitutional: WD/WN, vitals as above no acute distress and not ill appearing Eyes: PERRL, conjunctivae normal, anicteric sclerae EOM intact bilaterally ENMT: external ear and nose normal, oropharynx normal Ears: no hearing impairment Neck: trachea midline, no thyromegaly Respiratory: normal respiratory effort; no respiratory distress and does not use accessory muscles Cardiovascular: Rate/Rhythm: regular rate and regular rhythm Gastrointestinal (Abdomen): Soft. Positive suprapubic and left lower quadrant tenderness. Skin: no rashes, warm and dry Psychiatric: Orientation: alert, oriented x 3 and cooperative Results & Data Vital Signs (Past 12 Hours) Vital Signs Temp Pulse Resp BP Pulse Ox O2 Del Method O2 Flow Rate 04/02/25 07:42 36.6 C 76 18 132/68 97 Nasal Cannula 3 04/02/25 04:28 36.9 C 63 18 107/53 L 96 Nasal Cannula 3 04/02/25 00:02 36.3 C L 68 18 116/65 99 Nasal Cannula 3 PG Care Time/CCT Total # of Minutes Spent Total Time Spent with Patient: Total time spent is greater than 50% in coordination of care (as documented) at patient's floor/unit and/or counseling patient: Coding Level of Care Code 23591 SUB INP/OBS CARE MIN Diagnoses Diverticulitis of large intestine with abscess K57.20 Diverticulitis bleeding: without bleeding CKD (chronic kidney disease) N18.9 Chronic kidney disease stage 3 subtype: unspecified whether 3a or 3b Morbid obesity E66.01 (1) Diverticulitis of large intestine with abscess Diverticulitis bleeding: without bleeding Qualified Code(s): K57.20 - Diverticulitis of large intestine with perforation and abscess without bleeding (2) CKD (chronic kidney disease) Chronic kidney disease stage 3 subtype: unspecified whether 3a or 3b
--- NOTE | 2025-04-02 13:59 | Hospitalist Progress Note ---
Date of Service April 02, 2025 Assessment & Plan (1) Diverticulitis of large intestine with abscess: (2) Left lower quadrant abdominal pain: Plan: Patient is 55 year old female with PMH insulin-dependent DM II, diabetic neuropathy, CKD III, HTN, HLD, chronic HFpEF, morbid obesity, history necrotizing fasciitis, bilateral lower extremity lymphedema, iron deficiency anemia, chronic metabolic alkalosis and others listed below presented to ER from [facility] for abdominal pain x 5 days. In ER afebrile, P: 83, R: 18, BP 173/68, 98% on chronic 3 L nasal cannula WBC: 17.9, lactate WNL CT Abd/pelvis: Acute diverticulitis of the sigmoid colon with an adjacent 6.8 x 4.3 cm extraluminal collection of fluid and air, concerning for an abscess Acute diverticulitis of the sigmoid colon with abscess(6.8 x 4.3 cm) In ER given Zosyn, morphine 4 mg IV, NSS at 125 mL/hour started N.p.o. Has been on Zosyn, and Daptomycin Pain control with Tylenol, morphine General Surgery consult. -Appreciate input and recommendation. Continuation of conservative management for now She has been feeling a little better but still has significant pain with nausea Her pain medication was increased to morphine 6 mg Q4 hourly as needed and given Phenergan in addition to Zofran to control nausea Will continue with IV fluid and n.p.o. status for now Clinically not any better, remains afebrile White count is elevated and no evidence of significant worsening of abdominal findings Will get ID consultation and continue current dose of Zosyn adjusted with her weight and kidney function No improvement and the white count is increasingwill get a CT scan of the abdomen with oral contrast tomorrow and the patient may need to go for IR drainage Will continue current antibiotics with daptomycin and Zosyn Anemia No blood loss/hemolysis Likely secondary to DAHLIA on CKD, sepsis and hemodilution Will recheck hemoglobin at 2 and if remains below 7 we will give 2 units of blood transfusion DAHLIA on CKD #CKD III History of progressive CKD Cr: 1.8. Recent baseline 1.5. Monitor renal functions, avoid nephrotoxic agents when possible If worsening consider nephrology consult Creatinine slightly up at 2.06 and will monitor with Will continue intravenous fluid as long as remains n.p.o. Seems to be positive balance of 2813 mL but urine output is low and creatinine has gone up to more than 3 Will restart intravenous fluid and ask for nephrology consult Appreciate nephrology input and recommendation Will give 4 mg IV Bumex after the blood transfusion and monitor PRP #HTN (hypertension): Hypertensive in ER Did not have home meds today Resume nifedipine, losartan Control pain as above Monitor #Chronic HFpEF 07/05/2023 echo: EF: 55-60%, grade 1 diastolic dysfunction, right ventricle severely dilated, severe tricuspid regurgitation, PA systolic pressure a pproximately 50 to mmHg, consistent with moderate pulmonary hypertension Currently appears euvolemic. Is NPO and receiving gentle IVF. Holding home torsemide and metolazone currently. Monitor volume status closely BUN and creatinine are up and he needs more fluid to maintain hydration Fluid as above Monitor for fluid overload Will need higher doses of diuretics for diuresis given DAHLIA #Type 2 diabetes mellitus, with long-term current use of insulin: A1c: 6.9 on 01/24/2025 Hold home Trulicity Plan to decrease home insulin while NPO, monitor and may need further adjustment #Chronic iron deficiency anemia: Hgb: 7.9. Baseline low 8's Monitor Continue iron supplement, B12 #Lymphedema of both lower extremities: Currently does not appear cellulitic History of hysterectomy with right salpingo-oophorectomy Appreciate [employer] input for left lower quadrant pain Recommended to continue current management DVT Prophylaxis SCDs for now Admit telemetry Full Code as per discussion with pt Follows with Dr Gibbs at [facility] for routine care Admission and Anticipated Discharge Date Admission Date: March 30, 2025 Subjective 03/31/2025 The patient was seen and examined in medical telemetry unit She complains of left lower quadrant pain with nausea and vomiting No fever or chills and bowel has not moved yet Her pain is not well-controlled with current medication 04/01/2025 The patient was seen and examined in medical telemetry unit She has been feeling a little worse today with increasing pain in the left lower quadrant but no fever and no chills She has some nausea but no vomiting 04/02/2025 The patient was seen and examined in medical telemetry unit She is minimally improved, no fever but the white count is increasing Has significant abdominal pain without guarding and rigidity Review of Systems Review of Systems: All systems reviewed and unremarkable except as noted below Physical Exam Physical Exam: Lying in bed with acute distress due to abdominal pain and nausea Constitutional: well developed, well nourished, + ill appearing and + morbidly obese Eyes: PERRL, conjunctivae normal, anicteric sclerae ENMT: external ear and nose normal, oropharynx normal Neck: trachea midline, no thyromegaly Respiratory: no respiratory distress Auscultation: lungs clear to auscultation bilaterally and + diminished lung sounds Cardiovascular: Rate/Rhythm: regular rate and regular rhythm; not tachycardic Heart Sounds: normal S1 and normal S2; no murmur Extremities: + edema (1+ edema bilaterally with chronic skin changes/lymphedema) Gastrointestinal (Abdomen): Inspection/Auscultation: normal bowel sounds; abdomen not distended Percussion/Palpation: + abdomen tender (Left lower quadrant with minimal guarding) and abdomen soft Neurologic: normal touch/pain/proprioception and moves all extremities; no focal motor deficits Psychiatric: A+Ox3, euthymic affect Lymphatic: no cervical or axillary lymphadenopathy Results & Data Results & Data Vital Signs (Past 12 Hours) Vital Signs Temp Pulse Resp BP Pulse Ox O2 Del Method O2 Flow Rate 04/02/25 11:27 36.5 C 53 L 18 127/62 95 Nasal Cannula 3 04/02/25 08:25 Nasal Cannula 3 04/02/25 07:42 36.6 C 76 18 132/68 97 Nasal Cannula 3 04/02/25 04:28 36.9 C 63 18 107/53 L 96 Nasal Cannula 3 Laboratory Results Short CBC 04/02/25 Range/Units 07:24 WBC 22.82 H (4.8-10.8) K/ul Hgb 6.9 L* (12.0-16.0) g/dl Hct 22.1 L (37.0-47.0) % Plt Count 202 (130-400) K/uL BMP 04/02/25 07:23 Sodium 134 L Potassium 5.1 Chloride 98 Carbon Dioxide 24 BUN 61 H Creatinine 3.96 H D Glucose 179 H Calcium 8.1 L Cardiac Enzymes 04/02/25 Range/Units 07:23 Total Creatine Kinase 224 H (26-192) U/L Liver Function 04/02/25 Range/Units 07:23 Total Bilirubin 0.8 (0.2-1.0) mg/dl AST 17 (13-39) U/L ALT 9 (7-52) U/L Alkaline Phosphatase 83 (34-104) U/L Albumin 2.7 L (3.4-5.0) gm/dl Medications Administered Current Inpatient Medications Acetaminophen (Acetaminophen 325 Mg Tab) 650 mg PO QID PRN PRN Reason: pain/fever Stop: 04/30/25 23:18 Last Admin: 04/01/25 09:07 Dose: 650 mg Cyanocobalamin (Cyanocobalamin (B-12) 500 Mcg Tablet) 1,000 mcg PO DAILY MOHAMUD Stop: 04/30/25 08:59 Last Admin: 04/02/25 08:13 Dose: 1,000 mcg Dextrose (Dextrose 50% 50 Ml Syringe) 25 - 50 ml IV UD PRN; Protocol PRN Reason: Hypoglycemia Protocol Stop: 04/29/25 21:32 Diclofenac Sodium (Diclofenac Sod 1% Gel 100 Gm Tube) 4 gm EXT QID PRN; Protocol PRN Reason: Pain Stop: 04/29/25 21:32 Estradiol (Estradiol 1 Mg Tab) 0.5 mg PO DAILY MOHAMUD Stop: 04/30/25 08:59 Last Admin: 04/02/25 08:36 Dose: 0.5 mg Ferrous Sulfate (Ferrous Sulfate 325 Mg Tab) 325 mg PO DAILY MOHAMUD Stop: 04/30/25 08:59 Last Admin: 04/02/25 08:13 Dose: 325 mg Glucagon (Glucagon For Inj 1 Mg Vial) 1 mg SQ UD PRN; Protocol PRN Reason: Hypoglycemia Protocol Stop: 04/29/25 21:32 Glucose (Glucose 40% Gel 15 Gm Tube) 15 - 30 gm PO UD PRN; Protocol PRN Reason: Hypoglycemia Protocol Stop: 04/29/25 21:32 Glucose (Glucose 10 Tab/Tube) 4 - 8 tab PO UD PRN; Protocol PRN Reason: Hypoglycemia Protocol Stop: 04/29/25 21:32 Daptomycin 700 mg/ Syringe 14 mls @ 7 mls/min IV Q24H MOHAMUD; Protocol Stop: 04/03/25 20:59 Last Admin: 04/01/25 20:26 Dose: 7 mls/min Piperacillin Sod/Tazobactam Sod (Zosyn) 4.5 gm in 100 mls @ 25 mls/hr IV Q8H MOHAMUD; Protocol Stop: 04/10/25 00:00 Last Infusion: 04/02/25 11:53 Dose: Infused Pantoprazole Sodium (Protonix) 40 mg in 10 mls @ 5 mls/min IV DAILY [facility] Stop: 04/30/25 08:59 Last Admin: 04/02/25 08:14 Dose: 5 mls/min Promethazine HCl (Phenergan) 12.5 mg in 50.5 mls @ 202 mls/hr IV Q6H PRN PRN Reason: Nausea And Vomiting Stop: 04/30/25 11:17 Sodium Chloride (Nss) 100 mls @ 15 mls/hr IV .Q6H40M PRN PRN Reason: For Transfusion Duration Stop: 04/02/25 16:30 Daptomycin 700 mg/ Syringe 14 mls @ 7 mls/min IV Q48H [facility]; Protocol Stop: 04/09/25 20:59 Insulin Aspart (Insulin Aspart Per Unit Charge) 0 units SC ACHS [facility] Stop: 05/01/25 05:29 Last Admin: 04/02/25 12:51 Dose: 3 units Insulin Glargine (Lantus Per Unit Charge) 5 units SQ BID [facility] Stop: 05/01/25 08:59 Last Admin: 04/02/25 08:36 Dose: 5 units Miscellaneous (Carbohydrates For Hypoglycemia ) 15 - 30 gm PO UD PRN PRN Reason: Hypoglycemia Protocol Stop: 04/29/25 21:32 Morphine Sulfate (Morphine Sulfate 4 Mg/Ml 1 Ml Carp\Vial) 6 mg IV Q4H PRN PRN Reason: Mod-Sev Pain (Scale 4-10) Stop: 04/13/25 21:32 Last Admin: 04/02/25 08:03 Dose: 6 mg Nifedipine (Nifedipine Extended Rel 30 Mg Tabcr) 30 mg PO DAILY [facility] Stop: 04/30/25 08:59 Last Admin: 04/02/25 08:14 Dose: 30 mg Ondansetron HCl (Ondansetron Inj 2 Mg/Ml 2 Ml Vial) 4 mg IV Q6H PRN PRN Reason: Nausea Stop: 04/29/25 21:32 Last Admin: 03/31/25 12:29 Dose: 4 mg Polyethylene Glycol (Polyethylene (Miralax) 17 Gm Pack) 17 gm PO DAILY PRN PRN Reason: Constipation Stop: 04/29/25 21:32 (1) Diverticulitis of large intestine with abscess Diverticulitis bleeding: without bleeding Qualified Code(s): K57.20 - Diverticulitis of large intestine with perforation and abscess without bleeding
[2025-04-02 14:59] LABS: Hematocrit (blood only) 22.8 % (37.0-47.0); Hemoglobin 6.9 g/dl (12.0-16.0); Mean Corpuscular Hemoglobin 27.3 pg (25.0-34.0); Mean Corpuscular Volume 90.1 fL (80.0-100.0); Platelet Count 203 K/uL (130-400); RDW Standard Deviation 46.5 fL (36.4-46.3); Red Blood Count 2.53 M/uL (4.20-5.40); White Blood Count 24.28 K/ul (4.8-10.8)
[2025-04-02 15:20] LABS: Immature Granulocytes # (auto) 0.59 K/uL (0.01-0.20); Immature Granulocytes % (auto) 2.4 %; RBC Morphology Unremarkable
[2025-04-02] MEDS: BUMETANIDE 4 MG in SYRINGE 0 ML IV ONE (18:21)
[2025-04-02] MEDS ORDERED: ACETAMINOPHEN 1,000 MG/100 ML VIAL IV PRN (19:37)
[2025-04-02] MEDS: HYDROmorphone INJ 0.5 MG/0.5 ML SYR IV PRN (20:19)
[2025-04-02 22:16] LABS: Hematocrit (blood only) 29.6 % (37.0-47.0); Hemoglobin 9.0 g/dl (12.0-16.0)
[2025-04-02] MEDS: HYDROmorphone INJ 0.5 MG/0.5 ML SYR IV STA (23:24)
--- NOTE | 2025-04-03 08:02 | Nephrology Progress Note ---
Date of Service April 03, 2025 Assessment & Plan (1) Acute kidney injury superimposed on stage 3b chronic kidney disease: Plan: worsening now anuric stage 3 DAHLIA on CKD 3B w/ nephrotic range proteinuria historically, baseline creatinine 1.5 w/ 6 gm proteinuria. given rate of worsening, anticipate creatinine will worsen further before it begins to improve. 4.7 today (not yet peaked), 1.5 on 03/28 arrival. hgb improved to 8 today after pRBC (if similar value on recheck); and WBC down very slightly at 23K. Rapidly worsening creatinine currently w/ broad differential but likeliest is ATN due to sepsis -d/t active infection/abtx versus cardiorenal syndrome in pt dependent on very high dose diuretics routinely; no evidence of severe metabolic acid /base perturbation so far. lactate, CK wnl. >stopped losartan (3 doses in NPO pt could affect renal function, though would expect better tolerance given that she's off torsemide/metolazone) -daily BMP -continue nephrotoxin avoidance -just had another dose of bumex 4 mg IV and metolazone 5 mg today w/ small response >> could redose one more time today this range if necessary >no indication for urgent dialysis but she may well need it next 24-48 hrs >> may well need dialysis catheter tomorrow if remains anuric -cont strict I/O Care coordinated w/ Dr Conley by phone regarding diuretic dosing, consideration of transfer to tertiary care; we are in agreement; he will d/w surgery (2) Diverticulitis of large intestine with abscess: Plan: -cont zosyn and doxy -f/u surgery and ID recs concern that in pt with this medical complexity if IR procedure tomorrow unsuccessful or complicated or aborted she will be too unstable for transfer at that time (3) Pickwickian syndrome: Plan: not adherent w/ cpap/bipap progressive anemia can make breathing worse and complicate volume status, [place] if pRBC needed > s/p pRBC yesterday and hgb up to 8.3 -see above re diuretics Admission and Anticipated Discharge Date Admission Date: March 30, 2025 Subjective anuric despite aggressive diuretic dosing. Nausea and emesis today. Breathing is a bit shorter. pain uncontrolled. plan for IR drainage tomorrow Review of Systems 2 Review of Systems: All systems reviewed & are unremarkable except as noted in Subjective Physical Exam 2 Constitutional: well developed, well nourished, + acute distress (Mild with nausea) and + morbidly obese Eyes: EOM intact bilaterally ENMT: Mouth: + dry oral mucous membranes Respiratory: normal respiratory effort and + tachypneic; no respiratory distress and no cough Auscultation: + diminished lung sounds Cardiovascular: Rate/Rhythm: regular rate (distant) and regular rhythm E xtremities: + edema (1++ worse distally) Gastrointestinal (Abdomen): Inspection/Auscultation: normal bowel sounds P ercussion/Palpation: + abdomen tender (LLQ) and abdomen soft; no guarding and no fluid wave Musculoskeletal: Extremities: strength 5/5 throughout Skin: no rashes, warm and dry Psychiatric: Orientation: alert and oriented x 3 Results & Data Vital Signs (Past 12 Hours) Vital Signs Temp Pulse Pulse Resp BP Pulse Ox O2 Del Method 04/03/25 07:31 36.5 C 68 18 153/69 H 95 Nasal Cannula 04/03/25 02:27 36.9 C 74 16 129/79 96 Nasal Cannula 04/02/25 23:23 36.9 C 74 18 134/82 98 Nasal Cannula 04/02/25 21:44 71 O2 Flow Rate 04/03/25 07:31 3 04/03/25 02:27 3 04/02/25 23:23 3 04/02/25 21:44 Laboratory Results 04/03/25 07:39 04/03/25 07:[address] scan notable for fluid collection increased from 6.8 x 4.3 to 8.1 x 6.7 cm and new small amount of free air (2) Diverticulitis of large intestine with abscess Diverticulitis bleeding: without bleeding Qualified Code(s): K57.20 - Diverticulitis of large intestine with perforation and abscess without bleeding
[2025-04-03 08:19] LABS: Hematocrit (blood only) 25.6 % (37.0-47.0); Hemoglobin 8.3 g/dl (12.0-16.0); Mean Corpuscular Hemoglobin 29.5 pg (25.0-34.0); Mean Corpuscular Volume 91.1 fL (80.0-100.0); RDW Standard Deviation 48.0 fL (36.4-46.3); Red Blood Count 2.81 M/uL (4.20-5.40); White Blood Count 22.83 K/ul (4.8-10.8)
[2025-04-03 08:27] LABS: Anion Gap 12.0 (3-11); Blood Urea Nitrogen 67.0 mg/dl (6-23); Calcium 8.0 mg/dl (8.6-10.3); Carbon Dioxide 25.0 mmol/L (21-32); Chloride 96.0 mmol/L (98-107); Creatinine Clr Calc Pharmacy 23.0 ml/min; Glucose 174.0 mg/dl (70-99(Fasting)); Potassium 5.3 mmol/L (3.5-5.1); Sodium 133.0 mmol/L (136-145)
--- NOTE | 2025-04-03 08:58 | Surgery Progress Note ---
Date of Service April 03, 2025 Assessment & Plan (1) Diverticulitis of large intestine with abscess: Plan: For CAT scan today with oral contrast. Certainly again surgical intervention would be a last resort. She is currently stable and afebrile. Leukocytosis slightly decreased today. May need to rediscussed with interventional radiology regarding drainage of left lower quadrant collection. (2) Acute kidney injury superimposed on stage 3b chronic kidney disease: Admission and Anticipated Discharge Date Admission Date: March 30, 2025 Subjective Patient seen. She is having some nausea this morning but we suspect it is from drinking her oral contrast. She is afebrile. The abdominal discomfort is unchanged. Physical Exam Physical Exam: Alert. Mild distress secondary to nausea Abdomen is soft. Obese. Positive tenderness on the left side. Results & Data Vital Signs (Past 12 Hours) Vital Signs Temp Pulse Pulse Resp BP Pulse Ox O2 Del Method 04/03/25 07:31 36.5 C 68 18 153/69 H 95 Nasal Cannula 04/03/25 02:27 36.9 C 74 16 129/79 96 Nasal Cannula 04/02/25 23:23 36.9 C 74 18 134/82 98 Nasal Cannula 04/02/25 21:44 71 O2 Flow Rate 04/03/25 07:31 3 04/03/25 02:27 3 04/02/25 23:23 3 04/02/25 21:44 PG Care Time/CCT Total # of Minutes Spent Total Time Spent with Patient: Total time spent is greater than 50% in coordination of care (as documented) at patient's floor/unit and/or counseling patient: Coding Level of Care Code 65156 SUB INP/OBS CARE 09/11MIN Diagnoses Diverticulitis of large intestine with abscess K57.20 Diverticulitis bleeding: without bleeding Acute kidney injury superimposed on stage 3b chronic kidney disease N17.9; N1 8.32 (1) Diverticulitis of large intestine with abscess Diverticulitis bleeding: without bleeding Qualified Code(s): K57.20 - Diverticulitis of large intestine with perforation and abscess without bleeding
--- NOTE | 2025-04-03 09:17 | CT Scan Report ---
Technique: Axial computed tomography images were obtained of the abdomen and pelvis without intravenous contrast. Oral contrast was given Comparison is made to the prior CT dated 03/30/2025 Findings: The liver is overall of normal size, attenuation, and contour with no sign of cirrhosis or significant fatty infiltration. No definite liver mass lesion is seen on this noncontrast study. The gallbladder has been removed. No bile duct dilatation is noted. The spleen is mildly enlarged measuring 14.5 cm. No focal splenic lesion is evident. The pancreas appears normal with no sign of acute or chronic pancreatitis and no mass lesion noted. The pancreatic duct is of normal caliber. The adrenal glands appear unremarkable. No renal or proximal ureteral calculi are seen. There is no hydronephrosis or perinephric stranding. No definite renal mass lesion is identified. The aorta is of normal caliber. No abdominal adenopathy is seen. There is diastases of the rectus abdominis muscles with mild broad-based anterior outpouching of the anterior abdominal wall. The stomach appears normal. There is no sign of small bowel obstruction. There is a new small amount of free intraperitoneal air. There has been interval increase in size of a collection of fluid and air adjacent to the proximal sigmoid colon. This measures approximately 8.1 x 6 7 cm, previously 6.8 x 4.3 cm. No distal ureteral or bladder calculi are seen. No obvious bladder mass lesion is evident. The iliac arteries are of normal caliber. No pelvic adenopathy is noted. There is worsened bilateral lower lobe atelectasis. There is coronary atherosclerosis Mild thoracolumbar degenerative disc disease is seen. No fracture is identified. No focal osseous lesion is seen Impression: 1. Interval increase in size of a collection of fluid and air adjacent to the proximal sigmoid colon, concerning for an abscess related to diverticulitis 2. New small amount of free intraperitoneal air 3. Mild splenomegaly ACT 112: Positive. There are findings on this exam that require communication between the performing entity and the patient following Patient Test Result Information Act ([place] ACT 112) guidelines. Electronically signed by Darrell Olson 04-03-2025 09:16 AM
[2025-04-03 09:36] LABS: Platelet Count 225 K/uL (130-400)
[2025-04-03 09:37] LABS: Immature Granulocytes # (auto) 0.76 K/uL (0.01-0.20); Immature Granulocytes % (auto) 3.3 %
--- NOTE | 2025-04-03 11:07 | Hospitalist Progress Note ---
Date of Service April 03, 2025 Assessment & Plan (1) Diverticulitis of large intestine with abscess: (2) Left lower quadrant abdominal pain: Plan: Patient is 55 year old female with PMH insulin-dependent DM II, diabetic neuropathy, CKD III, HTN, HLD, chronic HFpEF, morbid obesity, history necrotizing fasciitis, bilateral lower extremity lymphedema, iron deficiency anemia, chronic metabolic alkalosis and others listed below presented to ER from [facility] for abdominal pain x 5 days. In ER afebrile, P: 83, R: 18, BP 173/68, 98% on chronic 3 L nasal cannula WBC: 17.9, lactate WNL CT Abd/pelvis: Acute diverticulitis of the sigmoid colon with an adjacent 6.8 x 4.3 cm extraluminal collection of fluid and air, concerning for an abscess Acute diverticulitis of the sigmoid colon with abscess(6.8 x 4.3 cm) In ER given Zosyn, morphine 4 mg IV, NSS at 125 mL/hour started N.p.o. Has been on Zosyn, and Daptomycin Pain control with Tylenol, morphine General Surgery consult. -Appreciate input and recommendation. Continuation of conservative management for now She has been feeling a little better but still has significant pain with nausea Her pain medication was increased to morphine 6 mg Q4 hourly as needed and given Phenergan in addition to Zofran to control nausea Will continue with IV fluid and n.p.o. status for now Clinically not any better, remains afebrile White count is elevated and no evidence of significant worsening of abdominal findings Will get ID consultation and continue current dose of Zosyn adjusted with her weight and kidney function No improvement and the white count is increasingwill get a CT scan of the abdomen with oral contrast tomorrow and the patient may need to go for IR drainage Will continue current antibiotics with daptomycin and Zosyn Remains afebrile and the white count is minimally improved at 22.83 from 24.28 yesterday Abdominal pain increased and patient feels need to more bloated Repeat CT of the abdomen with oral contrast showed increase in the mass the size being 8.1 x 6.7 cm from 6.8 x 4.3 cmwill need IR drainage Anemia No blood loss/hemolysis Likely secondary to DAHLIA on CKD, sepsis and hemodilution Will recheck hemoglobin at 2 and if remains below 7 we will give 2 units of blood transfusion Received 1 unit of PRBC yesterday and the hemoglobin remains elevated 8.3 today Will hold off any further blood transfusion for now DAHLIA on CKD #CKD III History of progressive CKD Cr: 1.8. Recent baseline 1.5. Monitor renal functions, avoid nephrotoxic agents when possible If worsening consider nephrology consult Creatinine slightly up at 2.06 and will monitor with Will continue intravenous fluid as long as remains n.p.o. 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 #HTN (hypertension): Hypertensive in ER Did not have home meds today Resume nifedipine, losartan Control pain as above Monitor #Chronic HFpEF 07/05/2023 echo: EF: 55-60%, grade 1 diastolic dysfunction, right ventricle sev erely dilated, severe tricuspid regurgitation, PA systolic pressure approximately 50 to mmHg, consistent with moderate pulmonary hypertension Currently appears euvolemic. Is NPO and receiving gentle IVF. Holding home torsemide and metolazone currently. Monitor volume status closely BUN and creatinine are up and he needs more fluid to maintain hydration Fluid as above Monitor for fluid overload Will need higher doses of diuretics for diuresis given DAHLIA #Type 2 diabetes mellitus, with long-term current use of insulin: A1c: 6.9 on 01/24/2025 Hold home Trulicity Plan to decrease home insulin while NPO, monitor and may need further adjustment #Chronic iron deficiency anemia: Hgb: 7.9. Baseline low 8's Monitor Continue iron supplement, B12 #Lymphedema of both lower extremities: Currently does not appear cellulitic History of hysterectomy with right salpingo-oophorectomy Appreciate SYSTEMS QA ANALYST input for left lower quadrant pain Recommended to continue current management DVT Prophylaxis SCDs for now Admit telemetry Full Code as per discussion with pt Follows with Dr Gibbs at [facility] for routine care Admission and Anticipated Discharge Date Admission Date: March 30, 2025 Subjective 03/31/2025 The patient was seen and examined in medical telemetry unit She complains of left lower quadrant pain with nausea and vomiting No fever or chills and bowel has not moved yet Her pain is not well-controlled with current medication 04/01/2025 The patient was seen and examined in medical telemetry unit She has been feeling a little worse today with increasing pain in the left lower quadrant but no fever and no chills She has some nausea but no vomiting 04/02/2025 The patient was seen and examined in medical telemetry unit She is minimally improved, no fever but the white count is increasing Has significant abdominal pain without guarding and rigidity 04/03/2025 The patient was seen and examined in medical telemetry unit She has not been feeling any better Abdominal pain is increased, no fever and/or chills and Has been making enough urine Review of Systems Review of Systems: All systems reviewed and unremarkable except as noted below Physical Exam Physical Exam: Lying in bed with acute distress due to abdominal pain and nausea Constitutional: well developed, well nourished, + ill appearing and + morbidly obese Eyes: PERRL, conjunctivae normal, anicteric sclerae ENMT: external ear and nose normal, oropharynx normal Neck: trachea midline, no thyromegaly Respiratory: no respiratory distress Auscultation: lungs clear to auscultation bilaterally and + diminished lung sounds Cardiovascular: Rate/Rhythm: regular rate and regular rhythm; not tachycardic Heart Sounds: normal S1 and normal S2; no murmur Extremities: + edema (1+ edema bilaterally with chronic skin changes/lymphedema) Gastrointestinal (Abdomen): Inspection/Auscultation: normal bowel sounds; abdomen not distended Percussion/Palpation: + abdomen tender (Left lower quadrant with minimal guarding) and abdomen soft Musculoskeletal: No acute arthritis involving any of the joint Neurologic: normal touch/pain/proprioception and moves all extremities; no focal motor deficits Psychiatric: A+Ox3, euthymic affect Lymphatic: no cervical or axillary lymphadenopathy Results & Data Results & Data Vital Signs (Past 12 Hours) Vital Signs Temp Pulse Resp BP Pulse Ox O2 Del Method O2 Flow Rate 04/03/25 07:31 36.5 C 68 18 153/69 H 95 Nasal Cannula 3 04/03/25 02:27 36.9 C 74 16 129/79 96 Nasal Cannula 3 04/02/25 23:23 36.9 C 74 18 134/82 98 Nasal Cannula 3 Laboratory Results Short CBC 04/02/25 04/02/25 04/03/25 Range/Units 14:27 21:06 07:39 WBC 24.28 H 22.83 H (4.8-10.8) K/ul Hgb 6.9 L* 9.0 L 8.3 L (12.0-16.0) g/dl Hct 22.8 L 29.6 L 25.6 L (37.0-47.0) % Plt Count 203 225 (130-400) K/uL [facility] 04/03/25 07:39 Sodium 133 L Potassium 5.3 H Chloride 96 L Carbon Dioxide 25 BUN 67 H Creatinine 4.65 H* D Glucose 174 H Calcium 8.0 L Medications Administered Short CBC 04/02/25 04/02/25 04/03/25 Range/Units 14:27 21:06 07:39 WBC 24.28 H 22.83 H (4.8-10.8) K/ul Hgb 6.9 L* 9.0 L 8.3 L (12.0-16.0) g/dl Hct 22.8 L 29.6 L 25.6 L (37.0-47.0) % Plt Count 203 225 (130-400) K/uL [facility] 04/03/25 07:39 Sodium 133 L Potassium 5.3 H Chloride 96 L Carbon Dioxide 25 BUN 67 H Creatinine 4.65 H* D Glucose 174 H Calcium 8.0 L (1) Diverticulitis of large intestine with abscess Diverticulitis bleeding: without bleeding Qualified Code(s): K57.20 - Diverticulitis of large intestine with perforation and abscess without bleeding
[2025-04-03] MEDS: BUMETANIDE 4 MG in SYRINGE 0 ML IV ONE (11:38)
--- NOTE | 2025-04-03 15:54 | Discharge Summary ---
Date of Service April 03, 2025 Admission HPI Per Admitting Provider Patient is 55 year old female with PMH insulin-dependent DM II, diabetic neuropathy, CKD III, HTN, HLD, chronic HFpEF, morbid obesity, history necrotizing fasciitis, bilateral lower extremity lymphedema, iron deficiency anemia, chronic metabolic alkalosis and others listed below presented to ER from [facility] for abdominal pain x 5 days. Patient states 5 days ago started with left lower abdominal pain that was sharp and burning. She had nausea and vomited once. LLQ abdominal pain has continued and patient with decreased appetite. Has tried liquid diet past 4 days without relief. Taking Tylenol without relief. Last BM 5 days ago. Denies history colonoscopy. Patient states had morning insulin but did not take any of her other medications. Denies fever/chills, diaphoresis, diarrhea, GUO, dizziness, syncope, vision changes, neck pain, CP, SOB, palpitations, cough, sore throat, otalgia, rhinorrhea, increased weakness, increased extremity edema, rashes, urinary symptoms. Admission Exam Per Admitting Provider Physical Exam: General: no acute distress, obese female Head: normocephalic, atraumatic Eyes:conjunctiva non-injected, anicteric ENT: normal inspection external ears, nose, mucous membranes moist Neck: supple, trachea midline Lungs: clear, no respiratory distress, no wheezing/rhonchi/rales CV: RRR, no murmur Abd: protuberant, normal BS, soft, +tender to palpation LLQ Ext: no cyanosis, no calf tenderness, +bilateral lower extremity edema, mild erythema distal extremities that is nontender and no significant warmth Neuro: A&O x 3, no focal deficits noted, normal affect Skin: warm, dry Principal Diagnosis Diverticular Abscess,DAHLIA Discharge Exam Lying in bed with acute distress due to abdominal pain and nausea Constitutional well developed, well nourished, + ill appearing and + morbidly obese Eyes PERRL, conjunctivae normal, anicteric sclerae ENMT external ear and nose normal, oropharynx normal Neck trachea midline, no thyromegaly Respiratory no respiratory distress Auscultation: lungs clear to auscultation bilaterally and + diminished lung sounds Cardiovascular Rate/Rhythm: regular rate and regular rhythm; not tachycardic Heart Sounds: normal S1 and normal S2; no murmur Extremities: + edema (1+ edema bilaterally with chronic skin changes/lymphedema) Gastrointestinal (Abdomen) Inspection/Auscultation: normal bowel sounds; abdomen not distended Percussion/Palpation: + abdomen tender (Left lower quadrant with minimal guarding) and abdomen soft Neurologic normal touch/pain/proprioception and moves all extremities; no focal motor deficits Psychiatric A+Ox3, euthymic affect Lymphatic no cervical or axillary lymphadenopathy Discharge Data Allergies Allergy/AdvReac Type Severity Reaction Status Date / Time No Known Allergies Allergy Unknown Verified 04/28/23 19:53 Consultations 03/30/25 18:16 ED Decision to Admit Stat 03/30/25 19:09 Consult General Surgery Routine 03/31/25 13:12 Consult Gynecology Routine 04/01/25 12:52 Consult Infectious Diseases Routine 04/01/25 14:18 Consult Nephrology Routine Ordered Studies 03/30/25 16:32 CT abd pelvis wo con Stat 04/03/25 08:30 CT Abd and Pelvis [CT abd pelvis oral con only] Routine 04/04/25 06:[address] periton/retro w/gdnce Routine Hospital Course (1) Diverticulitis of large intestine with abscess: (2) Left lower quadrant abdominal pain: Patient is 55 year old female with PMH insulin-dependent DM II, diabetic neuropathy, CKD III, HTN, HLD, chronic HFpEF, morbid obesity, history necrotizing fasciitis, bilateral lower extremity lymphedema, iron deficiency anemia, chronic metabolic alkalosis and others listed below presented to ER from [facility] for abdominal pain x 5 days. In ER afebrile, P: 83, R: 18, BP 173/68, 98% on chronic 3 L nasal cannula WBC: 17.9, lactate WNL CT Abd/pelvis: Acute diverticulitis of the sigmoid colon with an adjacent 6.8 x 4.3 cm extraluminal collection of fluid and air, concerning for an abscess Acute diverticulitis of the sigmoid colon with abscess(6.8 x 4.3 cm) In ER given Zosyn, morphine 4 mg IV, NSS at 125 mL/hour started N.p.o. Has been on Zosyn, and Daptomycin Pain control with Tylenol, morphine General Surgery consult. -Appreciate input and recommendation. Continuation of conservative management for now She has been feeling a little better but still has significant pain with nausea Her pain medication was increased to morphine 6 mg Q4 hourly as needed and given Phenergan in addition to Zofran to control nausea Will continue with IV fluid and n.p.o. status for now Clinically not any better, remains afebrile White count is elevated and no evidence of significant worsening of abdominal findings Will get ID consultation and continue current dose of Zosyn adjusted with her weight and kidney function No improvement and the white count is increasingwill get a CT scan of the abdomen with oral contrast tomorrow and the patient may need to go for IR drainage Will continue current antibiotics with daptomycin and Zosyn Remains afebrile and the white count is minimally improved at 22.83 from 24.28 yesterday Abdominal pain increased and patient feels need to more bloated Repeat CT of the abdomen with oral contrast showed increase in the mass the size being 8.1 x 6.7 cm from 6.8 x 4.3 cmwill need IR drainage Discussed with the Surgeon and the Resource Recovery Engineer-advised transfer to tertiary care center for IR/Surgery and may need dialysis given significant comorbid conditions Discussed with the patient who is agreeable to be transferred Discussed with the transfer center in [place] and the patient will be transferred for continued care. Anemia No blood loss/hemolysis Likely secondary to DAHLIA on CKD, sepsis and hemodilution Will recheck hemoglobin at 2 and if remains below 7 we will give 2 units of blood transfusion Received 1 unit of PRBC yesterday and the hemoglobin remains elevated 8.3 today Will hold off any further blood transfusion for now DAHLIA on CKD #CKD III History of progressive CKD Cr: 1.8. Recent baseline 1.5. Monitor renal functions, avoid nephrotoxic agents when possible If worsening consider nephrology consult Creatinine slightly up at 2.06 and will monitor with Will continue intravenous fluid as long as remains n.p.o. 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 #HTN (hypertension): Hypertensive in ER Did not have home meds today Resume nifedipine, losartan Control pain as above Monitor #Chronic HFpEF 07/05/2023 echo: EF: 55-60%, grade 1 diastolic dysfunction, right ventricle severely dilated, severe tricuspid regurgitation, PA systolic pressure approximately 50 to mmHg, consistent with moderate pulmonary hypertension Currently appears euvolemic. Is NPO and receiving gentle IVF. Holding home torsemide and metolazone currently. Monitor volume status closely BUN and creatinine are up and he needs more fluid to maintain hydration Fluid as above Monitor for fluid overload Will need higher doses of diuretics for diuresis given DAHLIA #Type 2 diabetes mellitus, with long-term current use of insulin: A1c: 6.9 on 01/24/2025 Hold home Trulicity Plan to decrease home insulin while NPO, monitor and may need further adjustment #Chronic iron deficiency anemia: Hgb: 7.9. Baseline low 8's Monitor Continue iron supplement, B12 #Lymphedema of both lower extremities: Currently does not appear cellulitic History of hysterectomy with right salpingo-oophorectomy Appreciate CONTRACT ADMINISTRATION SPECIALIST input for left lower quadrant pain Recommended to continue current management DVT Prophylaxis SCDs for now Admit telemetry Full Code as per discussion with pt Follows with Dr Gibbs at [facility] for routine care Total Time Total Time Spent Total Time Spent (In Minutes): 45 minutes Discharge Plan Discharge Items Patient Disposition: Transfer Acute Care Hospital Reason For Visit: DIVERTICULITIS WITH ABSCESS Discharge Diagnosis: Diverticular Abscess,DAHLIA Condition on Discharge: Serious Activity: As commented below Activity Comment: Bed rest Non-emergency contact: Primary Care Provider Call non-emergency contact if: you have any medication questions and your symptoms worsen Follow-up/Referrals: Nikita Gibbs [Primary Care Provider] - (Please make an appointment with your PCP within 7 days following discharge from the facility) Diet: Heart Healthy Addtl Attending Provider Instructions: All of your Inpatient medications were continued on transfer as below Date of Service: April 03, 2025 Current Inpatient Medications Cyanocobalamin (Cyanocobalamin (B-12) 500 Mcg Tablet) 1,000 mcg PO DAILY MOHAMUD Stop: 04/30/25 08:59 Last Admin: 04/03/25 08:35 Dose: 1,000 mcg Dextrose (Dextrose 50% 50 Ml Syringe) 25 - 50 ml IV UD PRN; Protocol PRN Reason: Hypoglycemia Protocol Stop: 04/29/25 21:32 Diclofenac Sodium (Diclofenac Sod 1% Gel 100 Gm Tube) 4 gm EXT QID PRN; Protocol PRN Reason: Pain Stop: 04/29/25 21:32 Estradiol (Estradiol 1 Mg Tab) 0.5 mg PO DAILY MOHAMUD Stop: 04/30/25 08:59 Last Admin: 04/03/25 08:35 Dose: 0.5 mg Ferrous Sulfate (Ferrous Sulfate 325 Mg Tab) 325 mg PO DAILY MOHAMUD Stop: 04/30/25 08:59 Last Admin: 04/03/25 08:35 Dose: 325 mg Glucagon (Glucagon For Inj 1 Mg Vial) 1 mg SQ UD PRN; Protocol PRN Reason: Hypoglycemia Protocol Stop: 04/29/25 21:32 Glucose (Glucose 40% Gel 15 Gm Tube) 15 - 30 gm PO UD PRN; Protocol PRN Reason: Hypoglycemia Protocol Stop: 04/29/25 21:32 Glucose (Glucose 10 Tab/Tube) 4 - 8 tab PO UD PRN; Protocol PRN Reason: Hypoglycemia Protocol Stop: 04/29/25 21:32 Hydromorphone HCl (Hydromorphone Inj 1 Mg/Ml Syringe) 1 mg IV Q4H PRN PRN Reason: Mod-Sev Pain (Scale 4-10) Stop: 04/17/25 13:10 Daptomycin 700 mg/ Syringe 14 mls @ 7 mls/min IV Q24H MOHAMUD; Protocol Stop: 04/03/25 20:59 Last Admin: 04/01/25 20:26 Dose: 7 mls/min Piperacillin Sod/Tazobactam Sod (Zosyn) 4.5 gm in 100 mls @ 25 mls/hr IV Q8H MOHAMUD; Protocol Stop: 04/10/25 00:00 Last Infusion: 04/03/25 15:03 Dose: Infused Pantoprazole Sodium (Protonix) 40 mg in 10 mls @ 5 mls/min IV DAILY MOHAMUD Stop: 04/30/25 08:59 Last Admin: 04/03/25 10:35 Dose: 5 mls/min Promethazine HCl (Phenergan) 12.5 mg in 50.5 mls @ 202 mls/hr IV Q6H PRN PRN Reason: Nausea And Vomiting Stop: 04/30/25 11:17 Daptomycin 700 mg/ Syringe 14 mls @ 7 mls/min IV Q48H MOHAMUD; Protocol Stop: 04/09/25 20:59 Acetaminophen (Ofirmev) 1,000 mg in 100 mls @ 400 mls/hr IV Q8H PRN PRN Reason: Pain or Fever Stop: 04/05/25 19:36 Insulin Aspart (Insulin Aspart Per Unit Charge) 0 units SC ACHS [facility] Stop: 05/01/25 05:29 Last Admin: 04/03/25 13:02 Dose: 2 units Insulin Glargine (Lantus Per Unit Charge) 5 units SQ BID [facility] Stop: 05/01/25 08:59 Last Admin: 04/03/25 10:34 Dose: 5 units Miscellaneous (Carbohydrates For Hypoglycemia ) 15 - 30 gm PO UD PRN PRN Reason: Hypoglycemia Protocol Stop: 04/29/25 21:32 Nifedipine (Nifedipine Extended Rel 30 Mg Tabcr) 30 mg PO DAILY [facility] Stop: 04/30/25 08:59 Last Admin: 04/03/25 08:35 Dose: 30 mg Ondansetron HCl (Ondansetron Inj 2 Mg/Ml 2 Ml Vial) 4 mg IV Q6H PRN PRN Reason: Nausea Stop: 04/29/25 21:32 Last Admin: 04/03/25 13:45 Dose: 4 mg Polyethylene Glycol (Polyethylene (Miralax) 17 Gm Pack) 17 gm PO DAILY PRN PRN Reason: Constipation Stop: 04/29/25 21:32 Pending Studies at Discharge: No Stand-Alone Forms: My [facility] Skilled Items Patient informed of condition?: Yes DNR: No Discharge Level of Care: Other Communicable Disease: No Discharge Prognosis: Stable Lines: Peripheral IV Urinary Catheter: Yes Medications and DC Order Prescriptions: Continued cyanocobalamin (vitamin B-12) [Vitamin B-12] 1,000 mcg Tablet 1,000 mcg PO DAILY aspirin 81 mg Tablet,Delayed Release (Dr/Ec) 81 mg PO QAM ferrous sulfate 325 mg (65 mg iron) Tablet 325 mg PO DAILY pantoprazole 40 mg Tablet,Delayed Release (Dr/Ec) 40 mg PO DAILY Qty: 30 0RF acetaminophen 500 mg tablet 1,000 mg PO Q8 capsaicin 0.1 % cream 1 applic TOPICAL Q12 PRN (Reason: pain lower extremities) torsemide 100 mg tablet 100 mg PO BID nifedipine 30 mg tablet extended release 24hr 30 mg PO DAILY metolazone 2.5 mg tablet 2.5 mg PO DAILY Rx Instructions: Take 30 minutes prior to torsemide losartan 25 mg tablet 25 mg PO DAILY potassium chloride 10 mEq tablet,ER particles/crystals 10 meq PO BID insulin glargine [Lantus Solostar U-100 Insulin] 100 unit/mL (3 mL) insulin pen 16 unit SUBCUT BID bisacodyl [Dulcolax (bisacodyl)] 10 mg Suppository 10 mg [place] UD PRN (Reason: Constipation) Rx Instructions: 1 [place] prn constipation on third day with no BM estradiol 0.5 mg tablet 0.5 mg PO DAILY ergocalciferol (vitamin D2) [Vitamin D2] 1,250 mcg (50,000 unit) Capsule 50,000 unit PO UD Rx Instructions: once a month insulin aspart U-100 100 unit/mL (3 mL) insulin pen 12 unit SUBCUT TIDM Rx Instructions: hold for BSG<100 Trulicity 0.75 mg/0.5 mL pen injector 0.75 mg SUBCUT WK Rx Instructions: Sundays diclofenac sodium [Voltaren] 1 % Gel 4 g TOPICAL QID PRN (Reason: Pain) Rx Instructions: apply to single knee, ankle, foot; for foot includes sole/toes/top of foot acetaminophen 325 mg Tablet 650 mg PO Q6 MDD 3g PRN (Reason: Fever Or Pain) Rx Instructions: use for pain or temp>101 ammonium lactate 12 % lotion 1 applic TOPICAL BID Rx Instructions: apply to BLE for xerosis...wash leg first Krames/Other Patient Handouts: Diverticulosis and Diverticulitis Admission Data Admit Date/Time: 03/30/25 18:45 Attending Provider: Kyle Conley Admit Provider: Marco Almaraz Primary Care Provider: Nikita Gibbs Other Providers: Jun Beavers; Marco Almaraz; Heartcallie,; Zander Gabriel; Gisele Thomas; Brenna Zuluaga; Colten Chester; Rafal Hancock; London Wilson; Seven Saldaña; Danna Horn; Mei Lamb; Ava Brower; Sangita Mccoy; Dolores Ambriz; Rose Patel; Ilana Armendariz; Zafar Moreau; Luann Tian; Gabriel Eastman; Mark Tubbs; Favio Hearn I.; Hari Hebert II; Laila Weaver; Brian Johnston; Antwon Chambers; Florecita Tilley; Magdalena Kong
[2025-04-03] MEDS: HYDROmorphone INJ 1 MG/ML SYRINGE IV PRN (18:06)
[2025-04-03 19:48] VITALS: RESP 16
[2025-04-03] MEDS: DAPTOmycin 700 MG in SYRINGE 0 ML IV SCH (20:50)
[2025-04-03 22:28] VITALS: BP 154/77; PULSE 67; TEMP 98.6; O2SAT 95
--- NOTE | 2025-04-06 12:16 | Coding Query ---
Sepsis was not documented on admission and did not have any signs of sepsis while in patient. SEPSIS To promote full compliance with coding requirements relating to patient care, physician participation is requested in all cases of system administrator uncertainty. Please assist us with the question(s) below: In responding to this query, please exercise your independent professional judgement. The fact that a question is asked does not imply that any particular answer is desired or expected. We appreciate your clarification on this issue. Throughout the medical record, you have clearly documented a localized infection and your patient has clinical evidence of a generalized sepsis or severe sepsis. The term urosepsis is a nonspecific entity and is coded as an UTI. If the patient has sepsis, severe sepsis, from an urinary source or some other source, please clarify in your response below. The medical record reflects the following clinical findings: (With dates as appropriate) (Body temperature of >38.3 C(101 F) or <36 C(96.8F), pulse >90/minute, respirations >20/minute, WBC count >12,000 or <4,000, altered mental status, significant edema or positive fluid balance, hyperglycemia without diabetes, hypotension, metabolic acidosis (elev. lactate level, anion gap or reduced blood pH), shock, positive blood culture (enter organism) Several notes also state: Anemia No blood loss/hemolysis Likely secondary to DAHLIA on CKD, sepsis and hemodilution ____ ()Bacteremia (Nonspecific laboratory finding of bacteria in the blood) Specify Organism () Present on Admission () Not present on admission () Unable to clinically determine () Septicemia (Systemic disease associated with the presence of pathogenic microorganisms in the blood): Specify Organism () Present on Admission () Not present on admission () Unable to clinically determine () Sepsis Specify Organism Specify Associated Condition/Diagnosis () Present on Admission () Not present on admission () Unable to clinically determine () Severe Sepsis (Sepsis associated with acute organ dysfunction) Specify Organism Specify Associated Condition/Diagnosis () Present on Admission () Not present on admission () Unable to clinically determine () Septic Shock (Severe sepsis with acute circulatory failure, unexplained by other causes) () Present on Admission () Not present on admission () Unable to clinically determine () Other, patient has: MTDD
== END 2025-04-04 00:04 | disposition short-term general hospital (02) | DRG 872 ==
LOC: ED 14:39 → SUATTDRO 18:45 → EDINP 18:45 → 2W 03-31 00:50

== ENCOUNTER 2025-06-01 12:24 | Inpatient (IN) ==
--- NOTE | 2025-06-01 13:08 | Emergency Department Note ---
Impression & Plan CHF exacerbation, Acute hypoxic respiratory failure, Diverticulitis of intestine with abscess ED Provider Note CHIEF COMPLAINT: Shortness of breath HISTORY OF PRESENTING ILLNESS: The patient is a 55-year-old female with a PMH HTN, depression and anxiety, dyslipidemia, DM type II, peripheral neuropathy, obesity, lymphedema both lower extremities, anemia, CHF, CKD stage III who presents to the emergency department due to shortness of breath for the last 2 days that worsened this morning. She reports typically wearing 2 L nasal cannula to ambulate and walk far distances however has been requiring 4 L nasal cannula and is still short of breath. Reports that the nurse that assisted her to the restroom this morning stated that she dropped to 83%. She also reports that her legs feel swollen and she is experiencing chest tightness. On physical exam patient later admits to diffuse abdominal pain as well as intense left lower quadrant pain associated with nausea and vomiting. She denies fever, chills, blood in her stool, URI symptoms. REVIEW OF SYSTEMS: See HPI for pertinent positives and pertinent negatives. ALLERGIES: NKDA MEDICATIONS: See below PAST MEDICAL HISTORY: See below PHYSICAL EXAM: VITALS: Vitals are noted on the nurses note and reviewed by myself. Vital signs stable. GENERAL: 55-year-old female, in no acute distress, nondiaphoretic, well- developed well-nourished. SKIN: Capillary refill less than 2 seconds. HEENT: Normocephalic. PERRLA. EOMI. Nares patent. Mucous membranes moist. Neck is supple without nuchal rigidity. HEART: Regular rate and rhythm without murmurs gallops or rubs. LUNGS: Diminished breath sounds bilaterally, dyspnea when sitting up in bed, CTA BL without wheezes, rales or rhonchi. No retractions or accessory muscle use. ABDOMEN: Positive BS x 4. Soft, diffuse abdominal discomfort, LLQ abdominal pain, without masses or organomegaly. No guarding or rebound tenderness. MUSCULOSKELETAL: No gross musculoskeletal defects. Chronic lower extremity edema. 2+ dorsal pedis pulse palpated bilaterally. NEURO: Patient was alert and oriented to person place and time. No focal neurological deficits. DIFFERENTIAL DIAGNOSIS: ED COURSE AND MEDICAL DECISION MAKING: HISTORY FROM INDEPENDENT HISTORIAN: MEDICATIONS GIVEN: Tylenol 1000 mg IV, Zofran 4 mg IV, Lasix 40 mg IV, Zosyn 4.5 g IV MONITOR: Continuous panel monitor: Order was placed for continuous panel monitor. Patient was placed on the panel monitor and continuous pulse ox. Patient was noted to be in normal sinus rhythm at an initial rate of 50 bpm per my interpretation. EKG: EKG was interpreted by myself as sinus bradycardia. Right bundle branch block noted on previous EKG. LA interval 144 ms. QT interval 433 ms. No other abnormality. When compared to previous EKG from 03/30/2025 rate is decreased by 30 and T wave inversion in anterior leads no longer evident. INTERPRETATION OF LABS: I interpreted the labs with full lab results as below in the lab section of this note. Pertinent lab results discussed in the MDM section below. INTERPRETATION OF IMAGING: Imaging studies were interpreted by myself and read by radiology as per the imaging section of this note. Chest x-ray - CHF. Stable moderate cardiomegaly. No consolidation or pleural effusion. No pneumothorax. 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 ESCALATION OF CARE CONSIDERED: Escalation of care was considered as patient typically wears 2 L nasal cannula to ambulate and is requiring 4 L nasal cannula. She is desaturating while sitting up in bed and ambulating to 83%. Reports abdominal pain and CT imaging shows diverticulitis with fistula/abscess to the ovary. Patient was admitted to medicine for IV antibiotics and further management. CONSULTATIONS: On-call [facility] hospitalist - Presented the patient to the provider discussing CHF on x-ray, elevated BNP, shortness of breath initially requiring 4 L nasal cannula which has now improved upon her stay, and CT imaging diverticulitis with fistula/abscess with associated nausea and vomiting. Informed them that I did give the patient Lasix and IV Zosyn. They agreed to evaluate the patient and admitting her to medicine. MDM SUMMARY: I evaluated the 55-year-old female who presents to the emergency department due to shortness of breath over the last 2 days. Also admits to abdominal pain, nausea, and vomiting. Tylenol and Zofran given for symptom management. See HPI and PE above. Patient's vitals are stable. EKG obtained initial rate of 50 bpm sinus bradycardia. No other abnormality. Patient initially on 4 L nasal cannula and is saturating 98% or greater. Labs obtained showing no leukocytosis. Hemoglobin 7.9 hematocrit 27.5 however went compared to patient's previous labs these are above her normal limits. No electrolyte abnormality. Patient has a history of CKD stage III. BUN elevated 41. Creatinine elevated 2.23. Fluids deferred at this time due to concern for CHF exacerbation. Troponin 6.5. BNP elevated 260. Lipase 8. Lactate 0.7. Procalcitonin 0.07. Urinalysis obtained showing 2+ protein and a 610 urine WBC. Denies urinary symptoms. Upper respiratory BioFire negative. Chest x-ray obtained showing CHF. 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 All laboratory and imaging results thoroughly reviewed with the patient. On reevaluation she does confirm that her pain and nausea has improved. Additionally IV Zosyn and Lasix were given for symptom management after workup. A consultation with the on-call hospitalist can be seen in detail above. They agreed to evaluating the patient for admission. Patient is agreeable to admission and all questions answered. The patient was admitted in stable condition. DIAGNOSIS: CHF exacerbation, acute hypoxic respiratory failure, diverticulitis of intestine with abscess The chart was completed utilizing [employer] Speech voice recognition software. Grammatical errors, random word insertions, pronoun errors, and incomplete sentences are an occasional consequence of this system due to software limitations, ambient noise, and hardware issues. Any formal questions or concerns about the content, text, or information contained within the body of this dictation should be directly addressed to the provider for clarification. Past Med/Surg History Problem List (Updated 06/03/25 @ 08:49 by Jessica Brower PA-C) Diverticulitis of intestine with abscess (Acute) Acute hypoxic respiratory failure (Acute) CHF exacerbation (Acute) Acute hypoxic respiratory failure Sepsis Acute kidney injury superimposed on stage 3b chronic kidney disease History of section, low transverse History of hysterectomy for benign disease Left lower quadrant abdominal pain (Acute) Leukocytosis (Acute) Diverticulitis of large intestine with abscess (Acute) CKD (chronic kidney disease) Pickwickian syndrome Morbid obesity Hypercapnic respiratory failure Hyperkalemia Neuropathy Chronic iron deficiency anemia Hypercarbia Metabolic encephalopathy Acute alteration in mental status (Acute) Carbon dioxide retention (Acute) CHF (congestive heart failure) (Acute) Acute respiratory acidosis (Acute) Uncontrolled hypertension Right heart failure Acute on chronic heart failure with preserved ejection fraction (HFpEF) CKD (chronic kidney disease) stage 3, GFR 30-59 ml/min Chest pain (Acute) Acute on chronic renal insufficiency (Acute) Elevated troponin (Acute) Fluid overload (Acute) CHF (congestive heart failure) Anemia Cellulitis (Acute) Diabetic ulcer of foot associated with type 2 diabetes mellitus, with bone involvement without evidence of necrosis (Acute) Lower limb ulcer, heel or midfoot Lymphedema of both lower extremities Hypertension (Acute) Hyperglycemia (Acute) Nausea (Acute) DAHLIA (acute kidney injury) Cellulitis of left leg (Acute) Acute hyperglycemia (Acute) Obesity Cellulitis of left lower extremity Abscess of left lower leg Wound of lower extremity DKA (diabetic ketoacidosis) Diabetic foot infection (Acute) UTI (urinary tract infection) (Acute) Hypokalemia Gangrene of lower extremity (Acute) Personal history of diabetic foot ulcer Loss of protective sensation of skin of foot Type 2 diabetes mellitus with complications Type 2 diabetes mellitus, with long-term current use of insulin (Acute) Diabetic peripheral neuropathy associated with type 2 diabetes mellitus Diabetes type 2, uncontrolled Vitamin D deficiency Dyslipidemia Varicose veins of both lower extremities Depression with anxiety (Chronic) Tobacco use HTN (hypertension) (Chronic) Medical History Back pain Xerosis cutis Insomnia Hirsutism Fatigue Dysfunctional uterine bleeding History of DVT (deep vein thrombosis) Surgical History History of incision and drainage left foot by Dr. Haq on 10-03-19. H/O tooth extraction History of cholecystectomy History of facial surgery History of nasal polypectomy History of endometrial ablation History of tubal ligation History of hysterectomy History of Family History Father Dyslipidemia Prostate cancer Diabetes Lung cancer Mother Lung cancer Hypothyroidism Brother Coronary heart disease Asthma Grandfather (Maternal) Myocardial infarction Grandmother (Maternal) Myocardial infarction Grandmother (Paternal) Breast cancer Diabetes Social History Smoking Status: Never smoker Tobacco Type: Cigarettes Second Hand Exposure: No; Do You Dip or Chew Tobacco: No; Hx Alcohol Use: Yes Alcohol type: beer Alcohol Intake Frequency Comment: Social Hx Substance Use: No Preferred Language: Lithuanian Communication Ability: Effective Acoustical Tile Patternmaker Required: No Beliefs That Will Affect Care: None marital status: Single Current Living Situation: Longterm Current Living Situation Comment: [facility] Feels Safe at Home: Yes Assistive Devices: Wheelchair and Other Allergies Allergies Allergy/AdvReac Type Severity Reaction Status Date / Time No Known Allergies Allergy Unknown Verified 06/01/25 17:37 Home Meds Home Medications Medication Instructions Recorded Confirmed ferrous sulfate 325 mg (65 mg 325 mg PO DAILY 03/14/22 06/01/25 iron) tablet cyanocobalamin (vitamin B-12) 1,000 mcg PO DAILY 03/13/23 06/01/25 1,000 mcg tablet (Vitamin B-12) acetaminophen 325 mg tablet 650 mg PO Q6 PRN temp>101 09/19/23 06/01/25 ammonium lactate 12 % lotion 1 applic topical BID 09/19/23 06/01/25 insulin glargine 100 unit/mL (3 10 unit subcut BID 03/30/25 06/01/25 mL) subcutaneous pen (Lantus Solostar U-100 Insulin) losartan 25 mg tablet 50 mg PO DAILY 03/30/25 06/01/25 Saccharomyces boulardii 250 mg 250 mg PO Q12 06/01/25 06/01/25 capsule (Probiotic (S.boulardii)) acetaminophen 650 mg 650 mg PO Q8H PRN pain level 1-4 06/01/25 06/01/25 tablet,extended release (Tylenol 8 Hour) amlodipine 5 mg tablet 10 mg PO DAILY 06/01/25 06/01/25 furosemide 10 mg/mL injection 40 mg IM DAILY 06/01/25 06/01/25 solution furosemide 40 mg tablet 40 mg PO BID 06/01/25 06/01/25 hydralazine 10 mg tablet 10 mg PO TID 06/01/25 06/01/25 loperamide 2 mg capsule (Imodium 2 mg PO Q8 PRN c/o diarrhea 06/01/25 06/01/25 A-D) melatonin 3 mg tablet 6 mg PO HS 06/01/25 06/01/25 metoprolol succinate 25 mg 50 mg PO DAILY 06/01/25 06/01/25 tablet,extended release 24 hr ondansetron HCl 4 mg tablet 4 mg PO Q8 PRN nausea/vomiting 06/01/25 06/01/25 tramadol 50 mg tablet 50 mg PO Q6 PRN pain level 5-10 06/01/25 06/01/25 Previous Rx's Medication Instructions Recorded furosemide 10 mg/mL injection 40 mg (4 mL) IV Q12H #0 mL 06/02/25 solution heparin, porcine (PF) 5,000 5,000 unit (0.5 mL) subcut Q8 #5 mL 06/02/25 unit/0.5 mL injection syringe ondansetron HCl (PF) 4 mg/2 mL 4 mg (2 mL) IV Q6H PRN #0 mL 06/02/25 injection solution Results & Data (ED) Vital Signs Vital Signs - 24 hr 06/01/25 12:36 06/01/25 12:36 06/01/25 12:36 Temperature 36.6 C Temperature Source Oral Pulse Rate 75 Pulse Rate [Apical] Pulse Rhythm Regular Pulse Rhythm [Apical] Pulse Strength Normal Pulse Strength [Apical] Respiratory Rate 18 Respiratory Effort / Characteristics Non-Labored Accessory Muscle Use Non-Labored Spontaneous Short of Breath Respiratory Depth Normal Normal Respiratory Pattern Regular Regular Blood Pressure 140/110 H Blood Pressure [Right Arm] Blood Pressure Mean 120 Blood Pressure Mean [Right Arm] Blood Pressure Position Sitting Blood Pressure Position [Right Arm] Pulse Oximetry 100 100 Oxygen Delivery Method Nasal Cannula Nasal Cannula Nasal Cannula Oxygen Flow Rate 3 3 3 Sepsis Recent Fever Within 48 Hours No Sepsis New/Unexplained Change in Mental Status No Sepsis Action Taken by Nursing No Action Required 06/01/25 12:36 06/01/25 13:27 06/01/25 15:33 Temperature 36.6 C Temperature Source Oral Pulse Rate 60 Pulse Rate [Apical] 75 62 Pulse Rhythm Pulse Rhythm [Apical] Regular Pulse Strength Pulse Strength [Apical] Normal Respiratory Rate 18 22 Respiratory Effort / Characteristics Non-Labored Spontaneous Respiratory Depth Normal Respiratory Pattern Regular Blood Pressure Blood Pressure [Right Arm] 140/110 H 178/82 H Blood Pressure Mean Blood Pressure Mean [Right Arm] 120 114 Blood Pressure Position Blood Pressure Position [Right Arm] Sitting Pulse Oximetry 100 100 Oxygen Delivery Method Nasal Cannula Nasal Cannula Oxygen Flow Rate 3 3 Sepsis Recent Fever Within 48 Hours Sepsis New/Unexplained Change in Mental Status Sepsis Action Taken by Nursing 06/01/25 17:00 06/01/25 17:26 Temperature Temperature Source Pulse Rate 61 Pulse Rate [Apical] 64 Pulse Rhythm Pulse Rhythm [Apical] Pulse Strength Pulse Strength [Apical] Respiratory Rate 18 Respiratory Effort / Characteristics Respiratory Depth Respiratory Pattern Blood Pressure Blood Pressure [Right Arm] 152/54 H Blood Pressure Mean Blood Pressure Mean [Right Arm] 86 Blood Pressure Position Blood Pressure Position [Right Arm] Pulse Oximetry 100 Oxygen Delivery Method Nasal Cannula Oxygen Flow Rate 2 Sepsis Recent Fever Within 48 Hours Sepsis New/Unexplained Change in Mental Status Sepsis Action Taken by Nursing Laboratory Data 06/02/25 04:01 06/02/25 04:01 Lab Results 06/01/25 06/01/25 06/01/25 Range/Units 12:45 13:35 14:41 WBC 7.74 (4.8-10.8) K/ul RBC 3.01 L (4.20-5.40) M/uL Hgb 7.9 L (12.0-16.0) g/dl Hct 27.5 L (37.0-47.0) % MCV 91.4 (80.0-100.0) fL MCH 26.2 (25.0-34.0) pg MCHC 28.7 L (32.0-36.0) g/dL RDW Std Deviation 49.0 H (36.4-46.3) fL RDW Coeff of Mya 14.6 H (11.5-14.5) % Plt Count 206 (130-400) K/uL MPV 12.0 (9.4-12.4) fL Immature Gran % (Auto) 2.3 % Neut % (Auto) 74.0 % Lymph % (Auto) 13.4 % [place] % (Auto) 7.6 % Eos % (Auto) 1.9 % Baso % (Auto) 0.8 % Neut # (Auto) 5.72 (1.40-6.50) K/uL Lymph # (Auto) 1.04 L (1.20-3.40) K/uL [place] # (Auto) 0.59 (0.11-0.59) K/uL Eos # (Auto) 0.15 (0.00-0.50) K/uL Baso # (Auto) 0.06 (0.00-0.20) K/uL Immature Gran # (Auto) 0.18 (0.01-0.20) K/uL Hypersegmented Neuts 1+ Polychromasia 1+ Basophilic Stippling 1+ Anisocytosis Present Sodium 139 (136-145) mmol/L Potassium 4.8 (3.5-5.1) mmol/L Chloride 105 (98-107) mmol/L Carbon Dioxide 30 (21-32) mmol/L Anion Gap 4 (3-11) BUN 41 H (6-23) mg/dl Creatinine 2.23 H (0.6-1.2) mg/dl Est Cr Clr Drug Dosing 48.1 ml/min eGFR 25.26 BUN/Creatinine Ratio 18.4 (10-20) Glucose 144 H (70-99(Fasting)) mg/dl Lactate 0.7 (0.4-2.0) mmol/L Calcium 8.5 L (8.6-10.3) mg/dl Magnesium 1.7 (1.7-2.4) mg/dl Total Bilirubin 0.4 (0.2-1.0) mg/dl AST 7 L (13-39) U/L ALT 5 L (7-52) U/L Alkaline Phosphatase 87 (34-104) U/L Troponin I High Sens 6.5 (0-14) pg/ml B-Natriuretic Peptide 260 H (0-100) pg/ml Total Protein 7.0 (6.0-8.3) gm/dl Albumin 2.6 L (3.4-5.0) gm/dl Globulin 4.4 H (2.5-4.0) gm/dl Albumin/Globulin Ratio 0.6 L (0.9-2) Lipase 8 L (11-82) U/L Procalcitonin 0.07 (0-0.5) ng/ml Adenovirus (PCR) Not Detected (NotDetected) B. pertussis DNA (PCR) Not Detected (NotDetected) B.parapertussis DNA PCR Not Detected (NotDetected) C. pneumoniae DNA (PCR) Not Detected (NotDetected) Coronavirus OC43 (PCR) Not Detected (NotDetected) Coronavirus HKU1 (PCR) Not Detected (NotDetected) Coronavirus 229E (PCR) Not Detected (NotDetected) SARS-CoV-2 (PCR) Not Detected (NotDetected) Coronavirus NL63 (PCR) Not Detected (NotDetected) Human Metapneumovir PCR Not Detected (NotDetected) Influenza Type A (PCR) Not Detected (NotDetected) Influenza Type B (PCR) Not Detected (NotDetected) M. pneumoniae (PCR) Not Detected (NotDetected) Parainfluenza 1 (PCR) Not Detected (NotDetected) Parainfluenza 2 (PCR) Not Detected (NotDetected) Parainfluenza 3 (PCR) Not Detected (NotDetected) Parainfluenza 4 (PCR) Not Detected (NotDetected) RSV (PCR) Not Detected (NotDetected) Entero/Rhino (PCR) Not Detected (NotDetected) Administered Medications Discontinued Medications Furosemide (Furosemide 40 Mg/4 Ml Vial) 40 mg IV ONE ONE Stop: 06/01/25 16:21 Last Admin: 06/01/25 16:51 Dose: 40 mg Documented By: VALERIY Furosemide (Furosemide 40 Mg/4 Ml Vial) 40 mg IV Q12H MOHAMUD Stop: 07/01/25 20:59 Last Admin: 06/02/25 09:56 Dose: 40 mg Documented By: Admin: 06/01/25 21:32 Dose: 40 mg Documented By: RICKEY Heparin Sodium (Porcine) (Heparin Sod 5,000 Unit/0.5 Ml Vial) 5,000 units SQ Q8 MOHAMUD Stop: 07/01/25 21:59 Last Admin: 06/02/25 14:15 Dose: 5,000 units Documented By: nereida Co-signed By: NARDA Admin: 06/02/25 06:14 Dose: 5,000 units Documented By: Admin: 06/01/25 22:00 Dose: 5,000 units Documented By: RICKEY Hydralazine HCl (Hydralazine 10 Mg Tab) 10 mg PO TID MOHAMUD Stop: 07/01/25 20:59 Last Admin: 06/02/25 14:21 Dose: 10 mg Documented By: nereida Co-signed By: NARDA Admin: 06/02/25 09:57 Dose: 10 mg Documented By: Admin: 06/01/25 21:59 Dose: 10 mg Documented By: RICKEY Acetaminophen (Ofirmev) 1,000 mg in 100 mls @ 400 mls/hr IV NOW STA Stop: 06/01/25 14:36 Last Infusion: 06/01/25 15:43 Dose: Infused Documented By: Admin: 06/01/25 14:52 Dose: 400 mls/hr Documented By: ALLEY Piperacillin Sod/Tazobactam Sod (Zosyn) 4.5 gm in 100 mls @ 200 mls/hr IV NOW ONE; Protocol Stop: 06/01/25 16:52 Last Infusion: 06/01/25 17:44 Dose: Infused Documented By: Admin: 06/01/25 16:51 Dose: 200 mls/hr Documented By: VALERIY Piperacillin Sod/Tazobactam Sod (Zosyn) 4.5 gm in 100 mls @ 25 mls/hr IV Q8H MOHAMUD; Protocol Stop: 06/11/25 21:59 Last Admin: 06/02/25 14:12 Dose: 25 mls/hr Documented By: nereida Co-signed By: NARDA Infusion: 06/02/25 10:40 Dose: Infused Documented By: Admin: 06/02/25 06:09 Dose: 25 mls/hr Documented By: Infusion: 06/02/25 02:00 Dose: Infused Documented By: Admin: 06/01/25 21:33 Dose: 25 mls/hr Documented By: RICKEY Acetaminophen (Ofirmev) 1,000 mg in 100 mls @ 400 mls/hr IV Q8H PRN PRN Reason: Fever Stop: 06/04/25 20:19 Last Infusion: 06/02/25 04:34 Dose: Infused Documented By: Admin: 06/02/25 04:01 Dose: 400 mls/hr Documented By: RICKEY Insulin Aspart (Insulin Aspart Per Unit Charge) 0 units SC ACHS MOHAMUD Stop: 07/01/25 20:59 Last Admin: 06/02/25 11:56 Dose: Not Given Documented By: Admin: 06/02/25 09:07 Dose: Not Given Documented By: Admin: 06/01/25 21:17 Dose: Not Given Documented By: RICKEY Insulin Aspart (Insulin Aspart Per Unit Charge) 0 units SC Q6 MOHAMUD Stop: 07/01/25 20:59 Last Admin: 06/02/25 17:22 Dose: Not Given Documented By: FREDERIC Insulin Glargine (Lantus Per Unit Charge) 10 units SC BID MOHAMUD Stop: 07/01/25 20:59 Last Admin: 06/02/25 09:54 Dose: Not Given Documented By: Admin: 06/01/25 21:35 Dose: 10 units Documented By: RICKEY Co-signed By: ZURI Losartan Potassium (Losartan Potassium 50 Mg Tab) 50 mg PO DAILY MOHAMUD Stop: 07/02/25 08:59 Last Admin: 06/02/25 09:57 Dose: 50 mg Documented By: YARELY Metoprolol Succinate (Metoprolol Succ 50mg Ext Rel Tab) 50 mg PO DAILY MOHAMUD Stop: 07/02/25 08:59 Last Admin: 06/02/25 09:57 Dose: 50 mg Documented By: YARELY Ondansetron HCl (Ondansetron Inj 2 Mg/Ml 2 Ml Vial) 4 mg IV NOW STA Stop: 06/01/25 14:23 Last Admin: 06/01/25 14:53 Dose: 4 mg Documented By: ALLEY Ondansetron HCl (Ondansetron Inj 2 Mg/Ml 2 Ml Vial) 4 mg IV Q6H PRN PRN Reason: Nausea And Vomiting Stop: 07/01/25 20:19 Last Admin: 06/02/25 10:09 Dose: 4 mg Documented By: Admin: 06/02/25 04:06 Dose: 4 mg Documented By: Admin: 06/01/25 21:30 Dose: 4 mg Documented By: RICKEY Imaging Data Radiologist's Impression: Chest X-Ray 06/01/25 13:25 XR chest 1V portable CLINICAL HISTORY: SOB COMPARISON STUDY: 04/01/2025 FINDINGS: Stable moderate cardiomegaly with mild pulmonary vascular congestion. No consolidation or pleural effusion seen. No pneumothorax. IMPRESSION: CHF. ACT 112: Negative or not required by law. Electronically signed by: Jun Ortega M.D. 06/01/2025 1:38 PM Abdomen/Pelvis CT 06/01/25 14:45 CT SCAN OF THE ABDOMEN AND PELVIS WITHOUT IV CONTRAST CLINICAL HISTORY: Generalized abdominal pain. Nausea and vomiting. COMPARISON STUDY: Abdominal CT dated 04/03/2025. TECHNIQUE: CT scan of the abdomen and pelvis is performed from the lung bases to the proximal femora. Images are reviewed in the axial, sagittal, and coronal planes. IV contrast was not administered for this examination as per the referring clinician. Note that the examination was performed in suboptimal fashion without oral and IV contrast. A dose lowering technique was utilized adhering to the principles of ALARA. CT DOSE: 1911.38 mGy.cm FINDINGS: Lung bases: The heart is mildly enlarged and without pericardial effusion. There is coronary artery atherosclerosis. There is diminished attenuation of the cardiac blood pool as compared to the myocardium suggesting anemia. There are small pleural effusions with dependent atelectasis. A tiny hiatal hernia is noted. Liver: The unenhanced liver is enlarged, measuring 23.9 cm in length. There is no intrahepatic biliary ductal dilatation. Gallbladder: Surgically absent noting clips in the gallbladder fossa. Spleen: The spleen is enlarged measuring 14.8 cm in length. Pancreas: Unremarkable. Adrenal glands: Unremarkable. Kidneys: The unenhanced kidneys are normal in size and without hydronephrosis. There are no renal calculi identified. There is no evidence of contour deforming renal mass lesion. Abdominal vasculature: The abdominal aorta is normal in course and caliber noting moderate atherosclerotic calcification. Bowel: There is mild to moderate diverticulosis of the sigmoid colon. Inflammation is again seen involving the proximal sigmoid colon with an adjacent gas and fluid containing structure on image #[id number]. This measures approximately 6.5 x 7 x 5.5 cm and when compared to prior studies represents an abnormal left ovary. The appearance favors diverticulitis with a fistula to the left ovary and ovarian abscess. No bowel obstruction is seen. The appendix is well-visualized and normal. Peritoneum: No intraperitoneal free air is seen. There is a small volume of perihepatic ascites. There is laxity of the ventral abdominal wall with diastases of the rectus musculature and protrusion of abdominal contents. Lymphadenopathy: Mildly enlarged retroperitoneal lymph nodes measure up to 11 mm in short axis. These may be reactive. Prominent inguinal lymph nodes may also be reactive. Pelvic viscera: The bladder wall appears thickened with surrounding inflammation. The uterus is normal as visualized. Skeletal structures: The skeletal structures are osteopenic. There is mild lumbosacral spondylosis. No lytic or blastic lesions are seen. Sclerotic change is noted in the sacroiliac joints. Soft tissues: There is anasarca of the body wall. There is generalized muscular atrophy. IMPRESSION: 1. Suboptimal examination without oral and IV contrast. 2. 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 This measures up to 7 cm. 3. No intraperitoneal free air is seen. 4. There is evidence of fluid overload with small pleural effusions, a small volume of abdominal ascites, and anasarca of the body wall. 5. Hepatosplenomegaly. 6. Mildly enlarged retroperitoneal lymph nodes are likely reactive. These can also be reassessed at follow-up. 7. Additional findings as above. ACT 112: Negative or not required by law. Electronically signed by: Marvin Brumfield M.D. 06/01/2025 4:15 PM Discharge Plan Visit Data Chief Complaint: Shortness of Breath/Dyspnea Stated Complaint: SOB, FLUID RETENTION ED Provider: [facility] ED Midlevel Provider: Jessica Brower Discharge Problem: CHF exacerbation, Acute hypoxic respiratory failure, Diverticulitis of intestine with abscess Patient Disposition: Admitted As Inpatient Condition: Good Discharge Instructions Interventions: ED Discharge Assessment Last Done: 06/01/25 20:21 Discharge Problem: CHF exacerbation Qualifiers: Heart failure type: unspecified Qualified Code(s): I50.9 - Heart failure, unspecified Diverticulitis of intestine with abscess Qualifiers: Diverticulitis site: large intestine Diverticulitis bleeding: unspecified bleeding status Qualified Code(s): K57.20 - Diverticulitis of large intestine with perforation and abscess without bleeding
--- NOTE | 2025-06-01 13:39 | XRay Report ---
XR chest 1V portable CLINICAL HISTORY: SOB COMPARISON STUDY: 04/01/2025 FINDINGS: Stable moderate cardiomegaly with mild pulmonary vascular congestion. No consolidation or p leural effusion seen. No pneumothorax. IMPRESSION: CHF. ACT 112: Negative or not required by law. Electronically signed by: Jun Ortega M.D. 06/01/2025 1:38 PM
[2025-06-01 14:03] LABS: Hematocrit (blood only) 27.5 % (37.0-47.0); Hemoglobin 7.9 g/dl (12.0-16.0); Immature Granulocytes # (auto) 0.18 K/uL (0.01-0.20); Immature Granulocytes % (auto) 2.3 %; Mean Corpuscular Hemoglobin 26.2 pg (25.0-34.0); Mean Corpuscular Volume 91.4 fL (80.0-100.0); Platelet Count 206 K/uL (130-400); RDW Standard Deviation 49.0 fL (36.4-46.3); Red Blood Count 3.01 M/uL (4.20-5.40); White Blood Count 7.74 K/ul (4.8-10.8)
[2025-06-01 14:23] LABS: Alanine Aminotransferase 5.0 U/L (7-52); Albumin Globulin Ratio 0.6 (0.9-2); Albumin Level 2.6 gm/dl (3.4-5.0); Alkaline Phosphatase 87.0 U/L (34-104); Anion Gap 4.0 (3-11); Bilirubin,Total 0.4 mg/dl (0.2-1.0); Blood Urea Nitrogen 41.0 mg/dl (6-23); Calcium 8.5 mg/dl (8.6-10.3); Carbon Dioxide 30.0 mmol/L (21-32); Chloride 105.0 mmol/L (98-107); Creatinine Clr Calc Pharmacy 48.1 ml/min; Globulin 4.4 gm/dl (2.5-4.0); Glucose 144.0 mg/dl (70-99(Fasting)); Lipase 8.0 U/L (11-82); Magnesium 1.7 mg/dl (1.7-2.4); Potassium 4.8 mmol/L (3.5-5.1); Sodium 139.0 mmol/L (136-145); Total Protein 7.0 gm/dl (6.0-8.3)
[2025-06-01 14:32] LABS: Anisocytosis Present; Basophilic Stippling 1+; Hypersegmented Neutrophils 1+; Polychromasia 1+
[2025-06-01] MEDS: ACETAMINOPHEN 1,000 MG/100 ML VIAL IV STA (14:52)
[2025-06-01] MEDS: ONDANSETRON INJ 2 MG/ML 2 ML VIAL IV STA (14:53)
[2025-06-01 14:54] LABS: Chlamydia pneumoniae PCR Not Detected (NotDetected); Coronavirus 229E PCR Not Detected (NotDetected); Coronavirus CoV-2 (COVID19)PCR Not Detected (NotDetected); Coronavirus HKU1 PCR Not Detected (NotDetected); Coronavirus NL63 PCR Not Detected (NotDetected); Coronavirus OC43PCR Not Detected (NotDetected); Human Metapneumovirus PCR Not Detected (NotDetected); Parainfluenza Virus 1 PCR Not Detected (NotDetected); Parainfluenza Virus 2 PCR Not Detected (NotDetected); Parainfluenza Virus 3 PCR Not Detected (NotDetected); Parainfluenza Virus 4 PCR Not Detected (NotDetected); Respiratory Syncytial VirusPCR Not Detected (NotDetected); Rhinovirus/Enterovirus PCR Not Detected (NotDetected)
--- NOTE | 2025-06-01 16:16 | CT Scan Report ---
CT SCAN OF THE ABDOMEN AND PELVIS WITHOUT IV CONTRAST CLINICAL HISTORY: Generalized abdominal pain. Nausea and vomiting. COMPARISON STUDY: Abdominal CT dated 04/03/2025. TECHNIQUE: CT scan of the abdomen and pelvis is performed from the lung bases to the proximal femora. Images are reviewed in the axial, sagittal, and coronal planes. IV contrast was not administered for this examination as per the referring clinician. Note that the examination was performed in suboptim al fashion without oral and IV contrast. A dose lowering technique was utilized adhering to the [facility] of [place]. CT DOSE: 1911.38 mGy.cm FINDINGS: Lung bases: The heart is mildly enlarged and without pericardial effusion. There is coronary artery a therosclerosis. There is diminished attenuation of the cardiac blood pool as compared to the myocardi um suggesting anemia. There are small pleural effusions with dependent atelectasis. A tiny hiatal her luis eduardo is noted. Liver: The unenhanced liver is enlarged, measuring 23.9 cm in length. There is no intrahepatic biliar y ductal dilatation. Gallbladder: Surgically absent noting clips in the gallbladder fossa. Spleen: The spleen is enlarged measuring 14.8 cm in length. Pancreas: Unremarkable. Adrenal glands: Unremarkable. Kidneys: The unenhanced kidneys are normal in size and without hydronephrosis. There are no renal tod culi identified. There is no evidence of contour deforming renal mass lesion. Abdominal vasculature: The abdominal aorta is normal in course and caliber noting moderate atheroscle rotic calcification. Bowel: There is mild to moderate diverticulosis of the sigmoid colon. Inflammation is again seen invo lving the proximal sigmoid colon with an adjacent gas and fluid containing structure on image #[id number]. T his measures approximately 6.5 x 7 x 5.5 cm and when compared to prior studies represents an abnormal left ovary. The appearance favors diverticulitis with a fistula to the left ovary and ovarian absces s. No bowel obstruction is seen. The appendix is well-visualized and normal. Peritoneum: No intraperitoneal free air is seen. There is a small volume of perihepatic ascites. Ther e is laxity of the ventral abdominal wall with diastases of the rectus musculature and protrusion of abdominal contents. Lymphadenopathy: Mildly enlarged retroperitoneal lymph nodes measure up to 11 mm in short axis. These may be reactive. Prominent inguinal lymph nodes may also be reactive. Pelvic viscera: The bladder wall appears thickened with surrounding inflammation. The uterus is gretchen l as visualized. Skeletal structures: The skeletal structures are osteopenic. There is mild lumbosacral spondylosis. N o lytic or blastic lesions are seen. Sclerotic change is noted in the sacroiliac joints. Soft tissues: There is anasarca of the body wall. There is generalized muscular atrophy. IMPRESSION: 1. Suboptimal examination without oral and IV contrast. 2. 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 This measures up to 7 cm. 3. No intraperitoneal free air is seen. 4. There is evidence of fluid overload with small pleural effusions, a small volume of abdominal asci damien, and anasarca of the body wall. 5. Hepatosplenomegaly. 6. Mildly enlarged retroperitoneal lymph nodes are likely reactive. These can also be reassessed at f ollow-up. 7. Additional findings as above. ACT 112: Negative or not required by law. Electronically signed by: Marvin Brumfield M.D. 06/01/2025 4:15 PM
--- NOTE | 2025-06-01 16:28 | Emergency Department Note ---
ED Visit Note I was consulted by the Advanced Practice Provider. I personally made or approved the management plan for the patient. I performed a substantive portion of the visit. This includes the aspects of:MDM, imagin, lab work, antibiotics choice and appropriate consultation .
[2025-06-01] MEDS: FUROSEMIDE 40 MG/4 ML VIAL IV ONE (16:51)
[2025-06-01] MEDS: PIPERACILLIN/TAZOBACTAM 4.5 GM/100 ML BAG IV ONE (16:51)
--- NOTE | 2025-06-01 18:04 | History & Physical Report ---
Date of Service June 01, 2025 Assessment & Plan (1) Diverticulitis of large intestine with abscess: Plan: Abdomen CT scan was done on admission and reveals a large abscess measuring 6.5 cm x 7 cm x 5.5 cm with what appears to be a fistulous tract connecting the left ovary to the diverticulitis abscess. General surgery and [employer] consultations requested. Continue intravenous Zosyn started in the ED, day 1. She may require definitive surgical intervention. Clear liquid diet for now. (2) CHF (congestive heart failure): Plan: She appears to have combined acute on chronic left and right heart failure. Will obtain cardiac echo to assess left ventricular and right ventricular function. Parenteral Lasix. Monitor intake and output. Serial chest x-ray (3) CKD (chronic kidney disease): Plan: Stage III. Monitor intake and output. Serial labs (4) Acute hypoxic respiratory failure: Plan: Appears to be due to CHF and probably obesity hypoventilation syndrome. Supplemental oxygen per nasal cannula to maintain saturation greater than 90%. Avoid high oxygen saturations to prevent CO2 retention. Treat underlying CHF (5) Morbid obesity: Plan: BMI greater than 40. Significant weight loss recommended (6) Hypertension: Plan: Continue current oral medications. IV hydralazine as needed (7) Type 2 diabetes mellitus, with long-term current use of insulin: Plan: NPH insulin twice daily for now along with sliding scale coverage. Plan To be determined History of Present Illness Chief Complaint: abdominal pain Primary Care Provider: [facility] 55-year-old white female with several days of persistent abdominal pain, mostly in the left lower quadrant area. She was recently hospitalized with diverticulitis with abscess formation. It now appears that she has a fistulous tract to the left ovary area with a large abscess that is 6.5 x 7 x 5.5 cm. This was seen on CTAP done in the ED. She was also hypoxic while in the ED. chest x-ray is difficult to interpret due to her obesity but she does appear to have bilateral pleural effusions and may have a degree of CHF. Her most recent cardiac echo is from the fall 2022. She had a normal ejection fraction and evidence of cor pulmonale. BNP is elevated however. Intravenous Lasix was administered in the ED along with intravenous Zosyn. She denies chest pain. Allergies Allergy/AdvReac Type Severity Reaction Status Date / Time No Known Allergies Allergy Unknown Verified 06/01/25 17:37 Home Medications Medication Instructions Recorded Confirmed Type ferrous sulfate 325 mg (65 mg 325 mg PO DAILY 03/14/22 06/01/25 History iron) tablet cyanocobalamin (vitamin B-12) 1,000 mcg PO DAILY 03/13/23 06/01/25 History 1,000 mcg tablet (Vitamin B-12) acetaminophen 325 mg tablet 650 mg PO Q6 PRN temp>101 09/19/23 06/01/25 History ammonium lactate 12 % lotion 1 applic topical BID 09/19/23 06/01/25 History insulin glargine 100 unit/mL (3 10 unit subcut BID 03/30/25 06/01/25 History mL) subcutaneous pen (Lantus Solostar U-100 Insulin) losartan 25 mg tablet 50 mg PO DAILY 03/30/25 06/01/25 History Saccharomyces boulardii 250 mg 250 mg PO Q12 06/01/25 06/01/25 History capsule (Probiotic (S.boulardii)) acetaminophen 650 mg 650 mg PO Q8H PRN pain level 1-4 06/01/25 06/01/25 History tablet,extended release (Tylenol 8 Hour) amlodipine 5 mg tablet 10 mg PO DAILY 06/01/25 06/01/25 History furosemide 10 mg/mL injection 40 mg IM DAILY 06/01/25 06/01/25 History solution furosemide 40 mg tablet 40 mg PO BID 06/01/25 06/01/25 History hydralazine 10 mg tablet 10 mg PO TID 06/01/25 06/01/25 History loperamide 2 mg capsule (Imodium 2 mg PO Q8 PRN c/o diarrhea 06/01/25 06/01/25 History A-D) melatonin 3 mg tablet 6 mg PO HS 06/01/25 06/01/25 History metoprolol succinate 25 mg 50 mg PO DAILY 06/01/25 06/01/25 History tablet,extended release 24 hr ondansetron HCl 4 mg tablet 4 mg PO Q8 PRN nausea/vomiting 06/01/25 06/01/25 History tramadol 50 mg tablet 50 mg PO Q6 PRN pain level 5-10 06/01/25 06/01/25 History Past Med/Surg History Problem List (Updated 06/01/25 @ 18:11 by Antwon Vasquez MD) Acute hypoxic respiratory failure Sepsis Acute kidney injury superimposed on stage 3b chronic kidney disease History of section, low transverse History of hysterectomy for benign disease Left lower quadrant abdominal pain (Acute) Leukocytosis (Acute) Diverticulitis of large intestine with abscess (Acute) CKD (chronic kidney disease) Pickwickian syndrome Morbid obesity Hypercapnic respiratory failure Hyperkalemia Neuropathy Chronic iron deficiency anemia Hypercarbia Metabolic encephalopathy Acute alteration in mental status (Acute) Carbon dioxide retention (Acute) CHF (congestive heart failure) (Acute) Acute respiratory acidosis (Acute) Uncontrolled hypertension Right heart failure Acute on chronic heart failure with preserved ejection fraction (HFpEF) CKD (chronic kidney disease) stage 3, GFR 30-59 ml/min Chest pain (Acute) Acute on chronic renal insufficiency (Acute) Elevated troponin (Acute) Fluid overload (Acute) CHF (congestive heart failure) Anemia Cellulitis (Acute) Diabetic ulcer of foot associated with type 2 diabetes mellitus, with bone involvement without evidence of necrosis (Acute) Lower limb ulcer, heel or midfoot Lymphedema of both lower extremities Hypertension (Acute) Hyperglycemia (Acute) Nausea (Acute) DAHLIA (acute kidney injury) Cellulitis of left leg (Acute) Acute hyperglycemia (Acute) Obesity Cellulitis of left lower extremity Abscess of left lower leg Wound of lower extremity DKA (diabetic ketoacidosis) Diabetic foot infection (Acute) UTI (urinary tract infection) (Acute) Hypokalemia Gangrene of lower extremity (Acute) Personal history of diabetic foot ulcer Loss of protective sensation of skin of foot Type 2 diabetes mellitus with complications Type 2 diabetes mellitus, with long-term current use of insulin (Acute) Diabetic peripheral neuropathy associated with type 2 diabetes mellitus Diabetes type 2, uncontrolled Vitamin D deficiency Dyslipidemia Varicose veins of both lower extremities Depression with anxiety (Chronic) Tobacco use HTN (hypertension) (Chronic) Medical History Back pain Xerosis cutis Insomnia Hirsutism Fatigue Dysfunctional uterine bleeding History of DVT (deep vein thrombosis) Surgical History History of incision and drainage left foot by Dr. Haq on 10-03-19. H/O tooth extraction History of cholecystectomy History of facial surgery History of nasal polypectomy History of endometrial ablation History of tubal ligation History of hysterectomy History of Family History Father Dyslipidemia Prostate cancer Diabetes Lung cancer Mother Lung cancer Hypothyroidism Brother Coronary heart disease Asthma Grandfather (Maternal) Myocardial infarction Grandmother (Maternal) Myocardial infarction Grandmother (Paternal) Breast cancer Diabetes Social History Smoking Status: Former smoker Tobacco Type: Cigarettes Second Hand Exposure: No; Hx Alcohol Use: No Hx Substance Use: No Preferred Language: [place] Communication Ability: Effective 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 No cough, no wheezing, no shortness of breath while at rest Cardiacno palpitations, no chest pain, no syncope Sebastien vomiting, diarrhea, melena, hematochezia. Intermittent nausea. Mostly left-sided discomfort for several days GUno urinary retention, no urinary incontinence, no dysuria, no hematuria Musculoskeletalno joint pain, no muscle tenderness Skinno bruising, no rashes, no pruritus. Chronic severe edema in both lower extremities Neurono isolated weakness, no paresthesia Psychno depression, no anxiety Physical Exam 2 Physical Exam: General-alert and oriented x3, no fever, no chills. Morbidly obese HEENT-head atraumatic and normocephalic, pupils equal and reactive to light, extraocular muscles intact Neck-no lymphadenopathy or thyromegaly, trachea midline Chest-diminished breath sounds bilaterally from posterior approach. No audible wheezing. No rhonchi Cardiac-regular rate and rhythm, normal S1 and S2. Distant heart tones Abdomen-normal bowel sounds, no hepatosplenomegaly. Tenderness to palpation along the entire left abdomen. No overt rebound or guarding however. No palpable masses Extremities-3+ pitting edema bilateral lower extremities below the knees. Deformities from previous surgery on the distal left lower extremity. Neuro-cranial nerves II through XII intact, motor and sensory function within normal limits, strength symmetrical, no focal deficits Psych-normal affect, normal mood Results & Data Results & Data Vital Signs (Past 12 Hours) Vital Signs Temp Pulse Pulse Resp BP BP BP 06/01/25 17:51 60 19 168/83 H 06/01/25 17:26 61 06/01/25 17:00 64 18 152/54 H 06/01/25 15:33 62 22 178/82 H 06/01/25 13:27 60 06/01/25 12:36 36.6 C 75 18 140/110 H 06/01/25 12:36 06/01/25 12:36 06/01/25 12:36 36.6 C 75 18 140/110 H Pulse Ox O2 Del Method O2 Flow Rate 06/01/25 17:51 99 Nasal Cannula 2 06/01/25 17:26 06/01/25 17:00 100 Nasal Cannula 2 06/01/25 15:33 100 Nasal Cannula 3 06/01/25 13:27 06/01/25 12:36 100 Nasal Cannula 3 06/01/25 12:36 100 Nasal Cannula 3 06/01/25 12:36 Nasal Cannula 3 06/01/25 12:36 100 Nasal Cannula 3 Laboratory Results 06/01/25 12:45 06/01/25 12:45 Code Status & VTE Plan Code Status Full code PG Care Time/CCT Total # of Minutes Spent Total Time Spent with Patient: Total time spent is greater than 50% in coordination of care (as documented) at patient's floor/unit and/or counseling patient: Coding Level of Care Code 48596 INT INP/OBS CARE 3MIN Diagnoses Diverticulitis of large intestine with abscess K57.20 Diverticulitis bleeding: without bleeding CHF (congestive heart failure) I50.9 Heart failure chronicity: acute on chronic Heart failure type: unspecified CKD (chronic kidney disease) N18.9 Chronic kidney disease stage 3 subtype: unspecified whether 3a or 3b Acute hypoxic respiratory failure J96.01 Morbid obesity E66.01 Hypertension I10 Hypertension type: unspecified Type 2 diabetes mellitus, with long-term current use of insulin E11.9; Z79.4 Diabetes mellitus complication status: without complication (1) Diverticulitis of large intestine with abscess Diverticulitis bleeding: without bleeding Qualified Code(s): K57.20 - Diverticulitis of large intestine with perforation and abscess without bleeding (2) CHF (congestive heart failure) Heart failure chronicity: acute on chronic Heart failure type: unspecified Qualified Code(s): I50.9 - Heart failure, unspecified (3) CKD (chronic kidney disease) Chronic kidney disease stage 3 subtype: unspecified whether 3a or 3b (6) Hypertension Hypertension type: unspecified Qualified Code(s): I10 - Essential (primary) hypertension (7) Type 2 diabetes mellitus, with long-term current use of insulin Diabetes mellitus complication status: without complication Qualified Code(s): E11.9 - Type 2 diabetes mellitus without complications; Z79.4 - MCFP (current) use of insulin
[2025-06-01 18:27] LABS: Appearance Urine Clear (Clear); Bacteria Urine Automated None Seen (None Seen); Cast Urine Automated 0-2 /lpf (0-2); Epithelial Cell Urine Auto 0-2 /hpf (0-2); Glucose Urine UA Negative (Negative); RBC Urine Automated 0-2 /hpf (0-2)
[2025-06-01] MEDS ORDERED: GLUCAGON FOR INJ 1 MG VIAL SQ PRN (20:20)
[2025-06-01] MEDS ORDERED: CARBOHYDRATES FOR HYPOGLYCEMIA PO PRN (20:20)
[2025-06-01] MEDS ORDERED: GLUCOSE 40% GEL 15 GM TUBE PO PRN (20:20)
[2025-06-01] MEDS ORDERED: GLUCOSE 10 TAB/TUBE PO PRN (20:20)
[2025-06-01] MEDS ORDERED: DEXTROSE 50% 50 ML SYRINGE IV PRN (20:20)
--- NOTE | 2025-06-01 20:30 | Surgery Consultation ---
Date of Consultation June 01, 2025 Assessment & Plan (1) Diverticulitis of large intestine with abscess: The patient is a 55-year-old female presented to the emergency department with left lower quadrant abdominal pain. She was recently admitted to our facility from 03/30/2025 - 04/03/2025 with acute diverticulitis with associated phlegmon vs tubo-ovarian abscess. During that hospitalization she was evaluated by the PARING MACHINE OPERATOR team who believed the abscess was likely due to the acute infection process from the diverticulitis. Due to her significant comorbid conditions and body habitus she was transferred to [place] for further surgical evaluation and IR drainage. While at [place] she did undergo IR drainage and drain was just recently removed last week. Shortly after drain removal her symptoms started again and have progressed in severity. 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 The patient was admitted to the medical service and from a surgical standpoint recommend the following: -Patient with no signs of acute abdomen that would warrant emergent surgical intervention at this time. Recommend conservative treatment for now -Discussed with patient possibility of undergoing another IR drain, we will reach out to IR team tomorrow to discuss case -For now keep NPO, IV hydration, pain control and antiemetics as needed. - Broad-spectrum IV antibiotics. Trend WBC -PARING MACHINE OPERATOR also consulted - Medical management per primary team, surgery will follow closely Supervising Physician Co-Signing Physician Notes 55-year-old female with diverticulitis with abscess She had her drain removed about a week ago with [facility] Her CT scan does look improved from 2 months ago, but there is some residual air in the pericolonic tissues No plans for any emergent surgical intervention Keep her n.p.o. give her IV antibiotics If she does not improve over the next 2 to 3 days could consider transfer to a tertiary care center for possible definitive treatment as she has multiple comorbid conditions that would put her at high risk this institution Will follow History of Present Illness Reason for Consultation: Diverticulitis with abscess History of Present Illness The patient is a 55-year-old female presented to the emergency department with left lower quadrant abdominal pain. To note, the patient was recently admitted to our facility from 03/30/2025 - 04/03/2025 with acute diverticulitis with asso ciated phlegmon vs tubo-ovarian abscess. During that hospitalization she was evaluated by the PARING MACHINE OPERATOR team who believed the abscess was likely due to the acute infection process from the diverticulitis. The patient underwent repeat CT imaging and the collection had increased in size and due to the patient's significant comorbid conditions and body habitus she was transferred to [place] for further surgical evaluation and IR drainage. The patient states that while at [place] she did undergo IR drainage. She was in the hospital for a few weeks and was discharged with the IR drain in place. She states that the IR drain was exchanged once as an outpatient. She was also set up with outpatient colorectal surgeon who also discussed about her undergoing colonoscopy and potential surgical intervention at some point as well. The patient states that she was just seen last week on 05/25/2025 and the IR drain was removed at that time. She states that since the drain was removed that evening she started with lower abdominal pain that has been intermittent in nature which has become more persistent over the last few days. She also states she had associated nausea and vomiting. Due to her ongoing symptoms she came back to the emergency department for evaluation. 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 The patient was admitted to the medical service and general surgery was consulted. Allergies Allergy/AdvReac Type Severity Reaction Status Date / Time No Known Allergies Allergy Unknown Verified 06/01/25 17:37 Home Medications Medication Instructions Recorded Confirmed Type ferrous sulfate 325 mg (65 mg 325 mg PO DAILY 03/14/22 06/01/25 History iron) tablet cyanocobalamin (vitamin B-12) 1,000 mcg PO DAILY 03/13/23 06/01/25 History 1,000 mcg tablet (Vitamin B-12) acetaminophen 325 mg tablet 650 mg PO Q6 PRN temp>101 09/19/23 06/01/25 History ammonium lactate 12 % lotion 1 applic topical BID 09/19/23 06/01/25 History insulin glargine 100 unit/mL (3 10 unit subcut BID 03/30/25 06/01/25 History mL) subcutaneous pen (Lantus Solostar U-100 Insulin) losartan 25 mg tablet 50 mg PO DAILY 03/30/25 06/01/25 History Saccharomyces boulardii 250 mg 250 mg PO Q12 06/01/25 06/01/25 History capsule (Probiotic (S.boulardii)) acetaminophen 650 mg 650 mg PO Q8H PRN pain level 1-4 06/01/25 06/01/25 History tablet,extended release (Tylenol 8 Hour) amlodipine 5 mg tablet 10 mg PO DAILY 06/01/25 06/01/25 History furosemide 10 mg/mL injection 40 mg IM DAILY 06/01/25 06/01/25 History solution furosemide 40 mg tablet 40 mg PO BID 06/01/25 06/01/25 History hydralazine 10 mg tablet 10 mg PO TID 06/01/25 06/01/25 History loperamide 2 mg capsule (Imodium 2 mg PO Q8 PRN c/o diarrhea 06/01/25 06/01/25 History A-D) melatonin 3 mg tablet 6 mg PO HS 06/01/25 06/01/25 History metoprolol succinate 25 mg 50 mg PO DAILY 06/01/25 06/01/25 History tablet,extended release 24 hr ondansetron HCl 4 mg tablet 4 mg PO Q8 PRN nausea/vomiting 06/01/25 06/01/25 History tramadol 50 mg tablet 50 mg PO Q6 PRN pain level 5-10 06/01/25 06/01/25 History Patient History Medical History Back pain Xerosis cutis Insomnia Hirsutism Fatigue Dysfunctional uterine bleeding History of DVT (deep vein thrombosis) Surgical History History of incision and drainage left foot by Dr. Haq on 10-03-19. H/O tooth extraction History of cholecystectomy History of facial surgery History of nasal polypectomy History of endometrial ablation History of tubal ligation History of hysterectomy History of Family History Father Dyslipidemia Prostate cancer Diabetes Lung cancer Mother Lung cancer Hypothyroidism Brother Coronary heart disease Asthma Grandfather (Maternal) Myocardial infarction Grandmother (Maternal) Myocardial infarction Grandmother (Paternal) Breast cancer Diabetes Social History Smoking Status: Never smoker Tobacco Type: Cigarettes Second Hand Exposure: No; Do You Dip or Chew Tobacco: No; Hx Alcohol Use: Yes Alcohol type: beer Alcohol Intake Frequency Comment: Social Hx Substance Use: No Preferred Language: Tristanian Communication Ability: Effective 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 Apparel Manufacture Required: No Beliefs That Will Affect Care: None marital status: Single Current Living Situation: [facility] Current Living Situation Comment: [place] Feels Safe at Home: Yes Assistive Devices: Walker Review of Systems Constitutional: no fever, no chills and no weakness Respiratory: no problem reported Cardiovascular: no problem reported Gastrointestinal: as per Subjective / HPI, + abdominal pain, + nausea and + vomiting Physical Exam Constitutional: WD/WN, vitals as above Respiratory: normal respiratory effort; no respiratory distress Cardiovascular: Rate/Rhythm: regular rate Gastrointestinal (Abdomen): Abdomen soft, obsese, +TTP in the LLQ without rebound or guarding Results & Data Vital Signs (Past 12 Hours) Vital Signs Temp Pulse Pulse Resp BP BP BP 06/01/25 17:51 60 19 168/83 H 06/01/25 17:26 61 06/01/25 17:00 64 18 152/54 H 06/01/25 15:33 62 22 178/82 H 06/01/25 13:27 60 06/01/25 12:36 36.6 C 75 18 140/110 H 06/01/25 12:36 06/01/25 12:36 06/01/25 12:36 36.6 C 75 18 140/110 H Pulse Ox O2 Del Method O2 Flow Rate 06/01/25 17:51 99 Nasal Cannula 2 06/01/25 17:26 06/01/25 17:00 100 Nasal Cannula 2 06/01/25 15:33 100 Nasal Cannula 3 06/01/25 13:27 06/01/25 12:36 100 Nasal Cannula 3 06/01/25 12:36 100 Nasal Cannula 3 06/01/25 12:36 Nasal Cannula 3 06/01/25 12:36 100 Nasal Cannula [address] SCAN OF THE ABDOMEN AND PELVIS WITHOUT IV CONTRAST CLINICAL HISTORY: Generalized abdominal pain. Nausea and vomiting. COMPARISON STUDY: Abdominal CT dated 04/03/2025. TECHNIQUE: CT scan of the abdomen and pelvis is performed from the lung bases to the proximal femora. Images are reviewed in the axial, sagittal, and coronal planes. IV contrast was not administered for this examination as per the referring clinician. Note that the examination was performed in suboptimal fashion without oral and IV contrast. A dose lowering technique was utilized adhering to the principles of ALARA. CT DOSE: 1911.38 mGy.cm FINDINGS: Lung bases: The heart is mildly enlarged and without pericardial effusion. There is coronary artery atherosclerosis. There is diminished attenuation of the cardiac blood pool as compared to the myocardium suggesting anemia. There are small pleural effusions with dependent atelectasis. A tiny hiatal hernia is noted. Liver: The unenhanced liver is enlarged, measuring 23.9 cm in length. There is no intrahepatic biliary ductal dilatation. Gallbladder: Surgically absent noting clips in the gallbladder fossa. Spleen: The spleen is enlarged measuring 14.8 cm in length. Pancreas: Unremarkable. Adrenal glands: Unremarkable. Kidneys: The unenhanced kidneys are normal in size and without hydronephrosis. There are no renal calculi identified. There is no evidence of contour deforming renal mass lesion. Abdominal vasculature: The abdominal aorta is normal in course and caliber notin g moderate atherosclerotic calcification. Bowel: There is mild to moderate diverticulosis of the sigmoid colon. Inflammation is again seen involving the proximal sigmoid colon with an adjacent gas and fluid containing structure on image #[id number]. This measures approximately 6.5 x 7 x 5.5 cm and when compared to prior studies represents an abnormal left ovary. The appearance favors diverticulitis with a fistula to the left ovary and ovarian abscess. No bowel obstruction is seen. The appendix is well-visualized and normal. Peritoneum: No intraperitoneal free air is seen. There is a small volume of perihepatic ascites. There is laxity of the ventral abdominal wall with diastases of the rectus musculature and protrusion of abdominal contents. Lymphadenopathy: Mildly enlarged retroperitoneal lymph nodes measure up to 11 mm in short axis. These may be reactive. Prominent inguinal lymph nodes may also be reactive. Pelvic viscera: The bladder wall appears thickened with surrounding inflammati on. The uterus is normal as visualized. Skeletal structures: The skeletal structures are osteopenic. There is mild lumbosacral spondylosis. No lytic or blastic lesions are seen. Sclerotic change is noted in the sacroiliac joints. Soft tissues: There is anasarca of the body wall. There is generalized muscular atrophy. IMPRESSION: 1. Suboptimal examination without oral and IV contrast. 2. 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 This measures up to 7 cm. 3. No intraperitoneal free air is seen. 4. There is evidence of fluid overload with small pleural effusions, a small volume of abdominal ascites, and anasarca of the body wall. 5. Hepatosplenomegaly. 6. Mildly enlarged retroperitoneal lymph nodes are likely reactive. These can also be reassessed at follow-up. 7. Additional findings as above. PG Care Time/CCT Total # of Minutes Spent Total Time Spent with Patient: Total time spent is greater than 50% in coordination of care (as documented) at patient's floor/unit and/or counseling patient: [place] [address] INT INP/OBS CARE 40MIN Patient Type New Medical Decision Making Straight Forward Diagnoses Diverticulitis of large intestine with abscess K57.20 Diverticulitis bleeding: without bleeding (1) Diverticulitis of large intestine with abscess Diverticulitis bleeding: without bleeding Qualified Code(s): K57.20 - Diverticulitis of large intestine with perforation and abscess without bleeding
[2025-06-01] MEDS: INSULIN ASPART PER UNIT CHARGE SC SCH (21:17)
[2025-06-01] MEDS: ONDANSETRON INJ 2 MG/ML 2 ML VIAL IV PRN (21:30)
[2025-06-01] MEDS: FUROSEMIDE 40 MG/4 ML VIAL IV SCH (21:32)
[2025-06-01] MEDS: PIPERACILLIN/TAZOBACTAM 4.5 GM/100 ML BAG IV SCH (21:33)
[2025-06-01] MEDS: LANTUS PER UNIT CHARGE SC SCH (21:35)
[2025-06-01] MEDS: hydrALAZINE 10 MG TAB PO SCH (21:59)
[2025-06-01] MEDS: HEPARIN SOD 5,000 UNIT/0.5 ML VIAL SQ SCH (22:00)
[2025-06-02] MEDS: ACETAMINOPHEN 1,000 MG/100 ML VIAL IV PRN (04:01)
[2025-06-02 04:31] LABS: Hematocrit (blood only) 26.1 % (37.0-47.0); Hemoglobin 7.8 g/dl (12.0-16.0); Immature Granulocytes # (auto) 0.06 K/uL (0.01-0.20); Immature Granulocytes % (auto) 0.6 %; Mean Corpuscular Hemoglobin 26.7 pg (25.0-34.0); Mean Corpuscular Volume 89.4 fL (80.0-100.0); Platelet Count 212 K/uL (130-400); RDW Standard Deviation 47.4 fL (36.4-46.3); Red Blood Count 2.92 M/uL (4.20-5.40); White Blood Count 10.87 K/ul (4.8-10.8)
[2025-06-02 04:44] LABS: Anion Gap 9.0 (3-11); Blood Urea Nitrogen 39.0 mg/dl (6-23); Calcium 8.4 mg/dl (8.6-10.3); Carbon Dioxide 26.0 mmol/L (21-32); Chloride 105.0 mmol/L (98-107); Creatinine Clr Calc Pharmacy 49.0 ml/min; Glucose 121.0 mg/dl (70-99(Fasting)); Potassium 4.4 mmol/L (3.5-5.1); Sodium 140.0 mmol/L (136-145)
[2025-06-02 04:52] LABS: Polychromasia 1+
[2025-06-02 05:23] LABS: Cdiff Toxin B Gene (2yr or >) Negative Cdiff Gene (Neg)
[2025-06-02 07:20] VITALS: O2SAT 98
[2025-06-02] MEDS ORDERED: INFLUENZA VACC TS2025-26(6m+)/PF (IIV3) 0.5mL Syr IM ONE (09:00)
[2025-06-02] MEDS: LOSARTAN POTASSIUM 50 MG TAB PO SCH (09:57)
[2025-06-02] MEDS: METOPROLOL SUCC 50MG EXT REL TAB PO SCH (09:57)
--- NOTE | 2025-06-02 10:19 | Surgery Progress Note ---
Date of Service June 02, 2025 Assessment & Plan (1) Diverticulitis of large intestine with abscess: Plan: She had her drain removed about a week ago with [facility] Her CT scan does look improved from 2 months ago, but there is some residual air in the pericolonic tissues No plans for any emergent surgical intervention Keep her n.p.o. give her IV antibiotics If she does not improve over the next 2 to 3 days could consider transfer to a tertiary care center for possible definitive treatment as she has multiple comorbid conditions that would put her at high risk this institution Will follow Admission and Anticipated Discharge Date Admission Date: June 01, 2025 Subjective Patient seen and examined. States she is feeling slightly improved since admission. Denies any nausea or vomiting. Afebrile. Review of Systems Constitutional: no fever and no chills Eyes: no blind spots and no corrective lenses Ear, Nose, Mouth, Throat: no ear pain and no ear discharge Respiratory: no cough and no dyspnea Cardiovascular: no chest pain and no dyspnea on exertion Gastrointestinal: + abdominal pain; no nausea and no vomit ing Integumentary: no acne and no lesions Psychiatric: no behavioral changes and no depression Physical Exam Constitutional: WD/WN, vitals as above Respiratory: normal respiratory effort, lungs clear to auscultation Cardiovascular: RRR, no murmur, no edema Gastrointestinal (Abdomen): Inspection/Auscultation: abdomen normal to i nspection; abdomen not distended Percussion/Palpation: + abdomen tender (Left lower quadrant) and abdomen soft; no guarding and no hernia Results & Data Vital Signs (Past 12 Hours) Vital Signs Temp Pulse Resp BP Pulse Ox O2 Del Method O2 Flow Rate 06/02/25 07:19 36.5 C 69 19 167/74 H 98 Nasal Cannula 2 06/02/25 06:00 36.6 C 71 18 165/66 H 95 Nasal Cannula 2 06/02/25 06:00 Room Air PG Care Time/CCT Total # of Minutes Spent Total Time Spent with Patient: Total time spent is greater than 50% in coordination of care (as documented) at patient's floor/unit and/or counseling patient: Coding Level of Care Code 37801 SUB INP/OBS CARE 09/11MIN Diagnoses Diverticulitis of large intestine with abscess K57.20 Diverticulitis bleeding: without bleeding (1) Diverticulitis of large intestine with abscess Diverticulitis bleeding: without bleeding Qualified Code(s): K57.20 - Diverticulitis of large intestine with perforation and abscess without bleeding
--- NOTE | 2025-06-02 10:29 | OB/GYN Consultation ---
Date of Consultation June 02, 2025 Assessment & Plan (1) Sepsis: Conntinue IV antibiotics If she does not respond or her condition worsen she will need transfer to tertiary care due to her co-morbidities and morbid obesity (2) Diverticulitis of large intestine with abscess: History of Present Illness Reason for Consultation: abdominal pain Requesting Physician: Dr. Vasquez Attending Physician: Antwon Vasquez MD History of Present Illness 55 F P1001 post menopausal s/p , BTL and hysterectomy re-admitted after patient had abscess drained by IR in [facility] last week. She c/o nausea and vomiting associated with this pain. No vaginal bleeding. She is currently on IV antibiotics. Allergies Allergy/AdvReac Type Severity Reaction Status Date / Time No Known Allergies Allergy Unknown Verified 06/01/25 17:37 Home Medications Medication Instructions Recorded Confirmed Type ferrous sulfate 325 mg (65 mg 325 mg PO DAILY 03/14/22 06/01/25 History iron) tablet cyanocobalamin (vitamin B-12) 1,000 mcg PO DAILY 03/13/23 06/01/25 History 1,000 mcg tablet (Vitamin B-12) acetaminophen 325 mg tablet 650 mg PO Q6 PRN temp>101 09/19/23 06/01/25 History ammonium lactate 12 % lotion 1 applic topical BID 09/19/23 06/01/25 History insulin glargine 100 unit/mL (3 10 unit subcut BID 03/30/25 06/01/25 History mL) subcutaneous pen (Lantus Solostar U-100 Insulin) losartan 25 mg tablet 50 mg PO DAILY 03/30/25 06/01/25 History Saccharomyces boulardii 250 mg 250 mg PO Q12 06/01/25 06/01/25 History capsule (Probiotic (S.boulardii)) acetaminophen 650 mg 650 mg PO Q8H PRN pain level 1-4 06/01/25 06/01/25 History tablet,extended release (Tylenol 8 Hour) amlodipine 5 mg tablet 10 mg PO DAILY 06/01/25 06/01/25 History furosemide 10 mg/mL injection 40 mg IM DAILY 06/01/25 06/01/25 History solution furosemide 40 mg tablet 40 mg PO BID 06/01/25 06/01/25 History hydralazine 10 mg tablet 10 mg PO TID 06/01/25 06/01/25 History loperamide 2 mg capsule (Imodium 2 mg PO Q8 PRN c/o diarrhea 06/01/25 06/01/25 History A-D) melatonin 3 mg tablet 6 mg PO HS 06/01/25 06/01/25 History metoprolol succinate 25 mg 50 mg PO DAILY 06/01/25 06/01/25 History tablet,extended release 24 hr ondansetron HCl 4 mg tablet 4 mg PO Q8 PRN nausea/vomiting 06/01/25 06/01/25 History tramadol 50 mg tablet 50 mg PO Q6 PRN pain level 5-10 06/01/25 06/01/25 History Patient History Medical History Back pain Xerosis cutis Insomnia Hirsutism Fatigue Dysfunctional uterine bleeding History of DVT (deep vein thrombosis) Surgical History History of incision and drainage left foot by Dr. Haq on 10-03-19. H/O tooth extraction History of cholecystectomy History of facial surgery History of nasal polypectomy History of endometrial ablation History of tubal ligation History of hysterectomy History of Family History Father Dyslipidemia Prostate cancer Diabetes Lung cancer Mother Lung cancer Hypothyroidism Brother Coronary heart disease Asthma Grandfather (Maternal) Myocardial infarction Grandmother (Maternal) Myocardial infarction Grandmother (Paternal) Breast cancer Diabetes Social History Smoking Status: Never smoker Tobacco Type: Cigarettes Second Hand Exposure: No; Do You Dip or Chew Tobacco: No; Hx Alcohol Use: Yes Alcohol type: beer Alcohol Intake Frequency Comment: Social Hx Substance Use: No Preferred Language: Chadian Communication Ability: Effective Tile Installer Required: No Beliefs That Will Affect Care: None marital status: Single Current Living Situation: Intermediate Current Living Situation Comment: [place] Feels Safe at Home: Yes Assistive Devices: Walker Review of Systems Review of Systems: All systems reviewed & are unremarkable except as noted in HPI & below Physical Exam Gastrointestinal (Abdomen): Inspection/Auscultation: abdomen normal to inspection IR drainage site is sft and not inflammed. Abdone is morbidly obese with no peritoneal signs. Soft and non-tender with palpation. no mass palpable. Results & Data Vital Signs (Past 12 Hours) Vital Signs Temp Pulse Resp BP Pulse Ox O2 Del Method O2 Flow Rate 06/02/25 07:19 36.5 C 69 19 167/74 H 98 Nasal Cannula 2 06/02/25 06:00 36.6 C 71 18 165/66 H 95 Nasal Cannula 2 06/02/25 06:00 Room Air Laboratory Results 06/01/25 06/01/25 06/01/25 12:45 13:35 14:41 WBC 7.74 RBC 3.01 L Hgb 7.9 L Hct 27.5 L MCV 91.4 MCH 26.2 MCHC 28.7 L RDW Std Deviation 49.0 H RDW Coeff of Mya 14.6 H Plt Count 206 MPV 12.0 Immature Gran % (Auto) 2.3 Neut % (Auto) 74.0 Lymph % (Auto) 13.4 [place] % (Auto) 7.6 Eos % (Auto) 1.9 Baso % (Auto) 0.8 Neut # (Auto) 5.72 Lymph # (Auto) 1.04 L [place] # (Auto) 0.59 Eos # (Auto) 0.15 Baso # (Auto) 0.06 Immature Gran # (Auto) 0.18 Hypersegmented Neuts 1+ Polychromasia 1+ Basophilic Stippling 1+ Anisocytosis Present Sodium 139 Potassium 4.8 Chloride 105 Carbon Dioxide 30 Anion Gap 4 BUN 41 H Creatinine 2.23 H Est Cr Clr Drug Dosing 48.1 eGFR 25.26 BUN/Creatinine Ratio 18.4 Glucose 144 H POC Glucose Lactate 0.7 Calcium 8.5 L Magnesium 1.7 Iron Total Bilirubin 0.4 AST 7 L ALT 5 L Alkaline Phosphatase 87 Troponin I High Sens 6.5 B-Natriuretic Peptide 260 H Total Protein 7.0 Albumin 2.6 L Globulin 4.4 H Albumin/Globulin Ratio 0.6 L Lipase 8 L Procalcitonin 0.07 Urine Color Urine Appearance Urine pH Ur Specific [place] Urine Protein Urine Glucose (UA) Urine Ketones Urine Blood Urine Nitrite Urine Bilirubin Urine Urobilinogen Ur Leukocyte Esterase Urine WBC (Auto) Urine RBC (Auto) U Hyaline Cast (Auto) U Epithel Cells (Auto) Urine Bacteria (Auto) Urine Comment Stl C. diff Tox B Gene Stl C. diff 027-NAP1-BI Adenovirus (PCR) Not Detected B. pertussis DNA (PCR) Not Detected B.parapertussis DNA PCR Not Detected C. pneumoniae DNA (PCR) Not Detected Coronavirus OC43 (PCR) Not Detected Coronavirus HKU1 (PCR) Not Detected Coronavirus 229E (PCR) Not Detected SARS-CoV-2 (PCR) Not Detected Coronavirus NL63 (PCR) Not Detected Human Metapneumovir PCR Not Detected Influenza Type A (PCR) Not Detected Influenza Type B (PCR) Not Detected M. pneumoniae (PCR) Not Detected Parainfluenza 1 (PCR) Not Detected Parainfluenza 2 (PCR) Not Detected Parainfluenza 3 (PCR) Not Detected Parainfluenza 4 (PCR) Not Detected RSV (PCR) Not Detected Entero/Rhino (PCR) Not Detected 06/01/25 06/01/25 06/01/25 18:20 20:25 21:04 WBC RBC Hgb Hct MCV MCH MCHC RDW Std Deviation RDW Coeff of Mya Plt Count MPV Immature Gran % (Auto) Neut % (Auto) Lymph % (Auto) [place] % (Auto) Eos % (Auto) Baso % (Auto) Neut # (Auto) Lymph # (Auto) [place] # (Auto) Eos # (Auto) Baso # (Auto) Immature Gran # (Auto) Hypersegmented Neuts Polychromasia Basophilic Stippling Anisocytosis Sodium Potassium Chloride Carbon Dioxide Anion Gap BUN Creatinine Est Cr Clr Drug Dosing eGFR BUN/Creatinine Ratio Glucose POC Glucose 119 H Lactate Calcium Magnesium Iron 27 L Total Bilirubin AST ALT Alkaline Phosphatase Troponin I High Sens B-Natriuretic Peptide Total Protein Albumin Globulin Albumin/Globulin Ratio Lipase Procalcitonin Urine Color Yellow Urine Appearance Clear Urine pH 6.0 Ur Specific [place] 1.009 Urine Protein 2+ H Urine Glucose (UA) Negative Urine Ketones Negative Urine Blood Negative Urine Nitrite Negative Urine Bilirubin Negative Urine Urobilinogen Negative Ur Leukocyte Esterase Negative Urine WBC (Auto) 6-10 H Urine RBC (Auto) 0-2 U Hyaline Cast (Auto) 0-2 U Epithel Cells (Auto) 0-2 Urine Bacteria (Auto) None Seen Urine Comment Stl C. diff Tox B Gene Stl C. diff 027-NAP1-BI Adenovirus (PCR) B. pertussis DNA (PCR) B.parapertussis DNA PCR C. pneumoniae DNA (PCR) Coronavirus OC43 (PCR) Coronavirus HKU1 (PCR) Coronavirus 229E (PCR) SARS-CoV-2 (PCR) Coronavirus NL63 (PCR) Human Metapneumovir PCR Influenza Type A (PCR) Influenza Type B (PCR) M. pneumoniae (PCR) Parainfluenza 1 (PCR) Parainfluenza 2 (PCR) Parainfluenza 3 (PCR) Parainfluenza 4 (PCR) RSV (PCR) Entero/Rhino (PCR) 06/02/25 06/02/25 06/02/25 04:01 04:05 07:15 WBC 10.87 H RBC 2.92 L Hgb 7.8 L Hct 26.1 L MCV 89.4 MCH 26.7 MCHC 29.9 L RDW Std Deviation 47.4 H RDW Coeff of Mya 14.6 H Plt Count 212 MPV 11.8 Immature Gran % (Auto) 0.6 Neut % (Auto) 81.6 Lymph % (Auto) 7.5 [place] % (Auto) 7.5 Eos % (Auto) 2.3 Baso % (Auto) 0.5 Neut # (Auto) 8.88 H Lymph # (Auto) 0.81 L [place] # (Auto) 0.82 H Eos # (Auto) 0.25 Baso # (Auto) 0.05 Immature Gran # (Auto) 0.06 Hypersegmented Neuts Polychromasia 1+ Basophilic Stippling Anisocytosis Sodium 140 Potassium 4.4 Chloride 105 Carbon Dioxide 26 Anion Gap 9 BUN 39 H Creatinine 2.19 H Est Cr Clr Drug Dosing 49.0 eGFR 25.81 BUN/Creatinine Ratio 17.8 Glucose 121 H POC Glucose 116 H Lactate Calcium 8.4 L Magnesium Iron Total Bilirubin AST ALT Alkaline Phosphatase Troponin I High Sens B-Natriuretic Peptide Total Protein Albumin Globulin Albumin/Globulin Ratio Lipase Procalcitonin Urine Color Urine Appearance Urine pH Ur Specific [place] Urine Protein Urine Glucose (UA) Urine Ketones Urine Blood Urine Nitrite Urine Bilirubin Urine Urobilinogen Ur Leukocyte Esterase Urine WBC (Auto) Urine RBC (Auto) U Hyaline Cast (Auto) U Epithel Cells (Auto) Urine Bacteria (Auto) Urine Comment Stl C. diff Tox B Gene Negative Cdiff Gene Stl C. diff 027-NAP1-BI NEGATIVE Adenovirus (PCR) B. pertussis DNA (PCR) B.parapertussis DNA PCR C. pneumoniae DNA (PCR) Coronavirus OC43 (PCR) Coronavirus HKU1 (PCR) Coronavirus 229E (PCR) SARS-CoV-2 (PCR) Coronavirus NL63 (PCR) Human Metapneumovir PCR Influenza Type A (PCR) Influenza Type B (PCR) M. 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
[2025-06-02] MEDS ORDERED: Nursing to Pharmacy Communication SCH (11:45)
--- NOTE | 2025-06-02 12:57 | Hospitalist Progress Note ---
Date of Service June 02, 2025 Assessment & Plan (1) Diverticulitis of large intestine with abscess: Plan: Abdomen CT scan was done on admission and reveals a large abscess measuring 6.5 cm x 7 cm x 5.5 cm with what appears to be a fistulous tract connecting the left ovary to the diverticulitis abscess. General surgery and PARTY SUPPLY SPECIALIST consultations appreciated. She remains on intravenous Zosyn, day 2. She will need to be transferred back to [facility] for definitive treatment. (2) CHF (congestive heart failure): Plan: She appears to have combined acute on chronic diastolic left and right heart failure. Cardiac echo has been requested. Good urine output response with parenteral Lasix. Monitor intake and output. Serial chest x-ray (3) CKD (chronic kidney disease): Plan: Stage III. Monitor intake and output. Serial labs (4) Acute hypoxic respiratory failure: Plan: Appears to be due to CHF and probably obesity hypoventilation syndrome. Supplemental oxygen per nasal cannula to maintain saturation greater than 90%. Avoid high oxygen saturations to prevent CO2 retention. Treat underlying CHF (5) Morbid obesity: Plan: BMI greater than 40. Significant weight loss recommended (6) Hypertension: Plan: Continue current oral medications. IV hydralazine as needed (7) Type 2 diabetes mellitus, with long-term current use of insulin: Plan: NPH insulin twice daily for now along with sliding scale coverage. Plan Transfer back to [facility] for definitive treatment Admission and Anticipated Discharge Date Admission Date: June 01, 2025 Subjective Alert and oriented. Urine output is not being monitored but the patient says she is voiding quite a bit and has a Heaton catheter in place. PARTY SUPPLY SPECIALIST and general surgery consultations noted. She recently had the intra-abdominal abscess drained at [facility] in [place] last week and unfortunately she will need to return for definitive treatment. The patient has been made aware of the need to transfer her back to [facility]. Transfer center has been notified and arrangements are underway at this time. Review of Systems 2 Review of Systems: Constitutionalno fever or chills ENTno blurred vision, no double vision, no epistaxis, no sore throat Respiratorydyspnea on exertion. No cough, no wheezing, no shortness of breath while at rest Cardiacno palpitations, no chest pain, no syncope Sebastien vomiting, diarrhea, melena, hematochezia. Intermittent nausea. Mostly left-sided discomfort for several days GUno urinary retention, no urinary incontinence, no dysuria, no hematuria Musculoskeletalno joint pain, no muscle tenderness Skinno bruising, no rashes, no pruritus. Chronic severe edema in both lower extremities Neurono isolated weakness, no paresthesia Psychno depression, no anxiety Physical Exam 2 Physical Exam: General-alert and oriented x3, no fever, no chills. Morbidly obese HEENT-head atraumatic and normocephalic, pupils equal and reactive to light, extraocular muscles intact Neck-no lymphadenopathy or thyromegaly, trachea midline Chest-diminished breath sounds bilaterally from posterior approach. No audible wheezing. No rhonchi Cardiac-regular rate and rhythm, normal S1 and S2. Distant heart tones Abdomen-normal bowel sounds, no hepatosplenomegaly. Tenderness to palpation along the entire left abdomen. No overt rebound or guarding however. No palpable masses Extremities-3+ pitting edema bilateral lower extremities below the knees. Deformities from previous surgery on the distal left lower extremity. Neuro-cranial nerves II through XII intact, motor and sensory function within normal limits, strength symmetrical, no focal deficits Psych-normal affect, normal mood Results & Data Results & Data Vital Signs (Past 12 Hours) Vital Signs Temp Pulse Pulse Resp BP Pulse Ox O2 Del Method 06/02/25 11:46 67 06/02/25 11:22 Nasal Cannula 06/02/25 10:39 36.8 C 74 22 175/75 H 98 Nasal Cannula 06/02/25 07:19 36.5 C 69 19 167/74 H 98 Nasal Cannula 06/02/25 06:00 36.6 C 71 18 165/66 H 95 Nasal Cannula 06/02/25 06:00 Room Air O2 Flow Rate 06/02/25 11:46 06/02/25 11:22 2 06/02/25 10:39 2 06/02/25 07:19 2 06/02/25 06:00 2 06/02/25 06:00 Laboratory Results 06/02/25 04:01 06/02/25 04:01 PG Care Time/CCT Total # of Minutes Spent Total Time Spent with Patient: Total time spent is greater than 50% in coordination of care (as documented) at patient's floor/unit and/or counseling patient: Coding Level of Care Code 83555 SUB INP/OBS CARE 3/50MIN Diagnoses Diverticulitis of large intestine with abscess K57.20 Diverticulitis bleeding: without bleeding CHF (congestive heart failure) I50.9 Heart failure chronicity: acute on chronic Heart failure type: unspecified CKD (chronic kidney disease) N18.9 Chronic kidney disease stage 3 subtype: unspecified whether 3a or 3b Acute hypoxic respiratory failure J96.01 Morbid obesity E66.01 Hypertension I10 Hypertension type: unspecified Type 2 diabetes mellitus, with long-term current use of insulin E11.9; Z79.4 Diabetes mellitus complication status: without complication (1) Diverticulitis of large intestine with abscess Diverticulitis bleeding: without bleeding Qualified Code(s): K57.20 - Diverticulitis of large intestine with perforation and abscess without bleeding (2) CHF (congestive heart failure) Heart failure chronicity: acute on chronic Heart failure type: unspecified Qualified Code(s): I50.9 - Heart failure, unspecified (3) CKD (chronic kidney disease) Chronic kidney disease stage 3 subtype: unspecified whether 3a or 3b (6) Hypertension Hypertension type: unspecified Qualified Code(s): I10 - Essential (primary) hypertension (7) Type 2 diabetes mellitus, with long-term current use of insulin Diabetes mellitus complication status: without complication Qualified Code(s): E11.9 - Type 2 diabetes mellitus without complications; Z79.4 - jail (current) use of insulin
--- NOTE | 2025-06-02 13:06 | Discharge Summary ---
Discharge Summary Date of Service June 02, 2025 Principal Dx & Hospital Course #1 = Principal Diagnosis (1) Diverticulitis of large intestine with abscess: Abdomen CT scan was done on admission and reveals a large abscess measuring 6.5 cm x 7 cm x 5.5 cm with what appears to be a fistulous tract connecting the left ovary to the diverticulitis abscess. General surgery and COUNTER TENDER consultations appreciated. She remains on intravenous Zosyn, day 2. She will need to be transferred back to [facility] for definitive treatment. (2) CHF (congestive heart failure): She appears to have combined acute on chronic diastolic left and right heart failure. Cardiac echo has been requested and results are pending. Good urine output response with parenteral Lasix. Monitor intake and output. Serial chest x-ray (3) CKD (chronic kidney disease): Stage III. Monitor intake and output. Serial labs (4) Acute hypoxic respiratory failure: Appears to be due to CHF and probably obesity hypoventilation syndrome. Supplemental oxygen per nasal cannula to maintain saturation greater than 90%. Avoid high oxygen saturations to prevent CO2 retention. Treat underlying CHF (5) Morbid obesity: BMI greater than 40. Significant weight loss recommended (6) Hypertension: Continue current oral medications. IV hydralazine as needed (7) Type 2 diabetes mellitus, with long-term current use of insulin: NPH insulin twice daily for now along with sliding scale coverage. Plan Transfer back to [facility] for definitive treatment Admission HPI Per Admitting Provider 55-year-old white female with several days of persistent abdominal pain, mostly in the left lower quadrant area. She was recently hospitalized with diverticulitis with abscess formation. It now appears that she has a fistulous tract to the left ovary area with a large abscess that is 6.5 x 7 x 5.5 cm. This was seen on CTAP done in the ED. She was also hypoxic while in the ED. chest x-ray is difficult to interpret due to her obesity but she does appear to have bilateral pleural effusions and may have a degree of CHF. Her most recent cardiac echo is from the fall 2022. She had a normal ejection fraction and evidence of cor pulmonale. BNP is elevated however. Intravenous Lasix was administered in the ED along with intravenous Zosyn. She denies chest pain. Discharge Exam General-alert and oriented x3, no fever, no chills. Morbidly obese HEENT-head atraumatic and normocephalic, pupils equal and reactive to light, extraocular muscles intact Neck-no lymphadenopathy or thyromegaly, trachea midline Chest-diminished breath sounds bilaterally from posterior approach. No audible wheezing. No rhonchi Cardiac-regular rate and rhythm, normal S1 and S2. Distant heart tones Abdomen-normal bowel sounds, no hepatosplenomegaly. Tenderness to palpation along the entire left abdomen. No overt rebound or guarding however. No palpable masses Extremities-3+ pitting edema bilateral lower extremities below the knees. Deformities from previous surgery on the distal left lower extremity. Neuro-cranial nerves II through XII intact, motor and sensory function within normal limits, strength symmetrical, no focal deficits Psych-normal affect, normal mood Discharge Plan Discharge Items Patient Disposition: Transfer Acute Care Hospital Reason For Visit: ABDOMINAL PAIN, DIVERTICULAR ABSCESS Discharge Diagnosis: Acute biventricular heart failure, recurrent intra-abdominal abscess with diverticulitis and fistulous tract to left ovary area, acute hypoxic respiratory failure Activity: As commented below Activity Comment: Bedrest for now while hospitalized Non-emergency contact: Primary Care Provider Call non-emergency contact if: you have any medication questions and your symptoms worsen Follow-up/Referrals: [facility] [Primary Care Provider] - Diet: Carb Consistent or DM2 and Heart Healthy Addtl Attending Provider Instructions: See primary care provider as soon as possible after discharge from [facility] Pending Studies at Discharge: No Stand-Alone Forms: My [facility] Skilled Items Patient informed of condition?: Yes DNR: No Discharge Level of Care: Other Communicable Disease: No Discharge Prognosis: Other Lines: Peripheral IV Urinary Catheter: Yes Medications and DC Order Prescriptions: New heparin, porcine (PF) 5,000 unit/0.5 mL Syringe 5,000 unit subcut Q8 Qty: 5 0RF furosemide 10 mg/mL Solution 40 mg IV Q12H Qty: 0 0RF ondansetron HCl (PF) 4 mg/2 mL Solution 4 mg IV Q6H PRNQty: 0 0RF Continued cyanocobalamin (vitamin B-12) [Vitamin B-12] 1,000 mcg Tablet 1,000 mcg PO DAILY ferrous sulfate 325 mg (65 mg iron) Tablet 325 mg PO DAILY losartan 25 mg tablet 50 mg PO DAILY Rx Instructions: hold for SBP<110 and /or pulse of 60BPM or less insulin glargine [Lantus Solostar U-100 Insulin] 100 unit/mL (3 mL) insulin pen 10 unit SUBCUT BID acetaminophen 325 mg Tablet 650 mg PO Q6 MDD 3g PRN (Reason: temp>101) ammonium lactate 12 % lotion 1 applic TOPICAL BID Rx Instructions: apply to b/l feet for dry skin acetaminophen [Tylenol 8 Hour] 650 mg Tablet Extended Release 650 mg PO Q8H MDD 3g PRN (Reason: pain level 1-4) loperamide [Imodium A-D] 2 mg Capsule 2 mg PO Q8 PRN (Reason: c/o diarrhea) amlodipine 5 mg tablet 10 mg PO DAILY metoprolol succinate 25 mg tablet extended release 24 hr 50 mg PO DAILY furosemide 40 mg tablet 40 mg PO BID melatonin 3 mg Tablet 6 mg PO HS ondansetron HCl 4 mg tablet 4 mg PO Q8 PRN (Reason: nausea/vomiting) tramadol 50 mg tablet 50 mg PO Q6 PRN (Reason: pain level 5-10) furosemide 10 mg/mL solution 40 mg IM DAILY Rx Instructions: take until 06/03/25 23:59 hydralazine 10 mg tablet 10 mg PO TID Rx Instructions: hold for systolic MIRIAM<110 and/or pulse less than 60bpm Saccharomyces boulardii [Probiotic (S.boulardii)] 250 mg Capsule 250 mg PO Q12 Discharge Orders: Discharge Order- CHF (Routine); Ordered 06/02/25 Ordered By: Antwon Vasquez Admission Data Admit Date/Time: 06/01/25 17:51 Attending Provider: Antwon Vasquez Admit Provider: Antwon Vasquez Primary Care Provider: [facility] Other Providers: Missy Sullivan; Naun Garrett; Chucho Marino; Javier Aguero; Travis Guzman; Jun Beavers; Dina Trejo; Taurus Rodas; Chidi Warren; Samuel Jain; Jolie Bragg; Dago Owens; Travis King; Christine Jackson; Seven Saldaña Hospital Stay Data Consultations 06/01/25 16:54 ED Decision to Admit Stat 06/01/25 20:20 Consult General Surgery Routine Consult Gynecology Routine Diagnostic Imagining Performed 06/01/25 14:45 CT Abd and Pelvis [CT abd pelvis wo con] Stat Pending Results Patient Have Any Pending Studies at Discharge: No Discharge Instructions Given to Patient (Per Discharging Provider) See primary care provider as soon as possible after discharge from [facility] Total Time Total Time Spent Total Time Spent (In Minutes): 50 minutes Coding Level of Care Code 15031 INP/OBS DISCH >30 MIN Diagnoses Diverticulitis of large intestine with abscess K57.20 Diverticulitis bleeding: without bleeding CHF (congestive heart failure) I50.9 Heart failure chronicity: acute on chronic Heart failure type: unspecified CKD (chronic kidney disease) N18.9 Chronic kidney disease stage 3 subtype: unspecified whether 3a or 3b Acute hypoxic respiratory failure J96.01 Morbid obesity E66.01 Hypertension I10 Hypertension type: unspecified Type 2 diabetes mellitus, with long-term current use of insulin E11.9; Z79.4 Diabetes mellitus complication status: without complication
--- NOTE | 2025-06-02 15:02 | XCELERA ---
[id number] [id number]
[2025-06-02 15:57] VITALS: BP 151/70; RESP 18; TEMP 98.1
[2025-06-02 16:02] VITALS: PULSE 68
[2025-06-02] MEDS: INSULIN ASPART PER UNIT CHARGE SC SCH (17:22)
== END 2025-06-02 19:36 | disposition short-term general hospital (02) | DRG 391 ==
LOC: SUATTDRO → ED 12:24 → EDINP 17:51 → 2S 20:21
DX: K63.2 Fistula of intestine; E66.2 Morbid (severe) obesity with alveolar hypoventilation; I13.0 Hypertensive heart and chronic kidney disease with heart failure and stage 1 through stage 4 chronic kidney disease, or unspecified chronic kidney disease; I50.82 Biventricular heart failure; E11.22 Type 2 diabetes mellitus with diabetic chronic kidney disease; Z86.718 Personal history of other venous thrombosis and embolism; N82.4 Other female intestinal-genital tract fistulae; E11.42 Type 2 diabetes mellitus with diabetic polyneuropathy; J96.01 Acute respiratory failure with hypoxia; Z81.2 Family history of tobacco abuse and dependence; K57.20 Diverticulitis of large intestine with perforation and abscess without bleeding; Z68.43 Body mass index [BMI] 50.0-59.9, adult; F41.9 Anxiety disorder, unspecified; N18.30 Chronic kidney disease, stage 3 unspecified; I50.43 Acute on chronic combined systolic (congestive) and diastolic (congestive) heart failure; Z79.4 Long term (current) use of insulin; F32.9 Major depressive disorder, single episode, unspecified